=== PATIENT | female | born 1935 | race Caucasian/White ===

== ENCOUNTER → 2017-03-06 11:23 | Outpatient (CLI) | payer MEDICARE, SELFPAY ==
[2017-03-06 16:21] LABS: Anion Gap 10 (5-15); BUN 26 mg/dL (7-18); BUN/Creat Ratio 15.7 RATIO (10-20); Calcium,Total 8.9 mg/dL (8.5-10.1); Chloride 102 mmol/L (98-107); Creatinine, Serum 1.66 mg/dL (0.55-1.02); EST Glomerular Filtration Rate 32 mL/min (>60); Est Glom Filt Rate - Afr Amer 38 mL/min (>60); Glucose 201 mg/dL (70-110); Potassium 4.7 mmol/L (3.5-5.1); Sodium Level 137 mmol/L (136-145)
[2017-03-06 16:39] LABS: BNP,B-Type NATRIURETIC PEPTIDE 116.7 pg/mL (0-100)
== END ==
PROVIDERS: Family Provider Family Medicine; PCP Family Medicine; Visit Provider Family Medicine
DX: N18.3 Chronic kidney disease, stage 3 (moderate) (principal); I50.9 Heart failure, unspecified
CPT/HCPCS: 36415; 80048; 83880

== ENCOUNTER → 2017-04-09 13:01 | Outpatient (CLI) | payer MEDICARE, SELFPAY ==
[2017-04-09 14:02] LABS: AST(SGOT) 15 U/L (15-37); Alanine Aminotransfer ALT/SGPT 17 U/L (13-56); Anion Gap 11 (5-15); BUN 23 mg/dL (7-18); BUN/Creat Ratio 16.1 RATIO (10-20); Calcium,Total 8.7 mg/dL (8.5-10.1); Chloride 103 mmol/L (98-107); Creatinine, Serum 1.43 mg/dL (0.55-1.02); EST Glomerular Filtration Rate 38 mL/min (>60); Est Glom Filt Rate - Afr Amer 46 mL/min (>60); Glucose 206 mg/dL (74-106); Potassium 4.2 mmol/L (3.5-5.1); Sodium Level 139 mmol/L (136-145)
[2017-04-09 14:06] LABS: Hemoglobin A1c 8.2 % (4.2-6.3)
== END ==
PROVIDERS: Family Provider Family Medicine; PCP Family Medicine; Visit Provider Internal Medicine Endocrinology, Diabetes & Metabolism
DX: E11.42 Type 2 diabetes mellitus with diabetic polyneuropathy (principal)
CPT/HCPCS: 36415; 80048; 83036; 84450; 84460

== ENCOUNTER 2017-04-28 11:43 | Day surgery (SDC) | payer MEDICARE, SELFPAY ==
[2017-04-28 12:06] VITALS: BP 182/90; PULSE 68; RESP 16; TEMP 35.9; O2SAT 96; BMI 29.2
[2017-04-28 12:50] LABS: Bedside Glucose 150 mg/dL (70-110)
[2017-04-28] MEDS: Cefazolin 2 GM in 0.9% Normal Saline 100 ML IV (13:42)
--- NOTE | 2017-04-28 13:55 | RAD_ITS ---
STUDY: X-RAY - LUMBAR SPINE REASON FOR EXAM: Female, 81 years old. Low back pain. Placement of epidural stimulator. TECHNIQUE: 9 view(s) of the lumbar spine were obtained. 81 seconds fluoroscopy time. COMPARISON: None FINDINGS: These series of C-arm views show placement of an epidural stimulator in the lower thoracic spine. Correlate with procedure note. Electronically Signed: Carlo Nguyen MD at 9:18 EDT , Service support , RAD/Lumbar Spine 2 or 3 Views
[2017-04-28] MEDS: Bupivacaine 0.25% 30 ML Vial (14:15)
[2017-04-28] MEDS: Bacitracin 500 UNITS/GM PACKET (14:19)
[2017-04-28 14:33] VITALS: BP 168/85; BP 182/90; PULSE 77; RESP 16; TEMP 36.3; O2SAT 92
[2017-04-28 14:35] VITALS: BP 154/104; BP 182/90; PULSE 78; RESP 16; O2SAT 93
[2017-04-28 14:40] VITALS: BP 168/89; BP 182/90; PULSE 78; RESP 16; O2SAT 95
[2017-04-28 14:47] VITALS: BP 179/84; BP 182/90; PULSE 77; RESP 16; TEMP 36.2; O2SAT 93
--- NOTE | 2017-04-28 14:50 | PCM.OPRPT ---
Problem List (1) Disc degeneration, lumbosacral Status: Chronic (2) Lumbosacral radiculopathy Status: Chronic (3) Postlaminectomy syndrome of lumbar region Status: Chronic Report of Operation Date of Procedure: 04/28/17 Pre-Operative Diagnosis: Lumbosacral radiculopathy, lumbosacral degenerative disc disease, postlaminectomy syndrome of the lumbar spine Post-Operative Diagnosis: Lumbosacral radiculopathy, lumbosacral degenerative disc disease, postlaminectomy syndrome of the lumbar spine Surgery/Procedure Performed:: 1-spinal cord stimulator trial lead #1, 2-fluoroscopic guidance of spinal cord stimulator trial, 3-interrogation and programming of a spinal cord stimulator Description of Surgical Findings:: PROCEDURE: Spinal cord stimulator lead trial #1, fluoroscopic guidance for spinal cord stimulator, interrogation and programming of the spinal cord stimulator PREOPERATIVE DIAGNOSIS: Lumbosacral radiculopathy, lumbosacral degenerative disc disease, postlaminectomy syndrome of the lumbar spine POSTOPERATIVE DIAGNOSIS: Sacral radiculopathy, lumbosacral degenerative disc disease, postlaminectomy syndrome of the lumbar spine ANESTHESIA: MAC COMPLICATIONS: None BLOOD LOSS: Minimal Device implanted: Medtronic [id number], lot number [id number], neuro stimulator [id number] serial number [id number] PROCEDURE IN DETAIL: History and physical today was reviewed. Risks and benefits of the procedure were explained. The patient understood, agreed to our procedure, and informed consent was obtained. IV inserted per routine protocol. The patient was taken to the operating room, placed in a prone position with a pillow positioned underneath the abdomen. 2 gm IV Ancef delivered to the patient prior to incision per anesthesia team over 30 minutes, the back area was prepped and draped in a sterile fashion using iodine ?3 as well as Ioban sheet under direct visualization with fluoroscopic guidance on a true AP view the L2-3 vertebral bodies were visualized the skin and subcutaneous tissue were anesthetized with approximately 10 cc of a mixture of 1% lidocaine and 0.25% Marcaine using a 25-gauge regular needle followed by a 25-gauge 3-1/2 inch spinal needle to the interlaminar space at L2-3, the skin and subcutaneous tissue were injected with a 11-gauge blade using the Medtronic 14-gauge 3-1/2 inch Touhy needle provided by [employer] kit the needle passed through the skin and subcutaneous tissue and directed towards the interlaminar space at L2-3 under direct visualization with fluoroscopic guidance on AP as well as lateral view the needle was then advanced to the interlaminar space with [id number] technique to air once loss of resistance was encountered the stylette of the needle was then removed and after repeated confirmation on AP as well as lateral view spinal cord stimulator lead was then advanced under direct visualization with fluoroscopic guidance life imaging to confirm posterior positioning of the spinal cord stimulator at the posterior epidural space the lead was then advanced under direct visualization fluoroscopy to the tip of T9 vertebral body, patient was then awakened for spinal cord stimulator testing once satisfactory positioning and satisfactory coverage of the spinal cord stimulator. The patient was achieved the stylette of the spinal cord stimulator was then removed under direct visualization fluoroscopy the Touhy needle was then removed and a bitewing anchor was then introduced above the lead and advanced to the skin and secured to the skin and subcutaneous tissue with a 3-0 nylon the skin and subcutaneous tissue hernias reanesthetized with approximately 10 cc of the same mixture as above, a final visualization with AP as well as lateral view to confirm unchanged positioning of the spinal cord stimulator lead the area was then dressed with bacitracin and Tegaderm as well as the wireless external stimulator was attached to the left of the patient flank, there were no sinus symptoms intrathecal or intravascular injection patient experienced no paresthesia the procedure was completed without any apparent difficulty or any complication and the patient appeared to tolerate well patient was then transferred to PACU in satisfactory condition further testing was performed by myself as well as the [employer] passenger service representative who was present during the procedure. ASSESSMENT AND PLAN: This is a 81-year-old female with lumbosacral radiculopathy, lumbosacral degenerative disc disease, postlaminectomy syndrome and lumbar spine status post final cord stimulator trial at the lumbar level with one lead patient will follow approximately 3-4 days for reevaluation, and was given to the patient for Keflex 500 mg 1 p.o. every 8 hours for 7 days.
--- NOTE | 2017-04-28 15:03 | OP.PCM_ITS ---
Problem List (1) Disc degeneration, lumbosacral Status: Chronic (2) Lumbosacral radiculopathy Status: Chronic (3) Postlaminectomy syndrome of lumbar region Status: Chronic Report of Operation Date of Procedure: 04/28/17 Pre-Operative Diagnosis: Lumbosacral radiculopathy, lumbosacral degenerative disc disease, postlaminectomy syndrome of the lumbar spine Post-Operative Diagnosis: Lumbosacral radiculopathy, lumbosacral degenerative disc disease, postlaminectomy syndrome of the lumbar spine Surgery/Procedure Performed:: 1-spinal cord stimulator trial lead #1, 2- fluoroscopic guidance of spinal cord stimulator trial, 3-interrogation and programming of a spinal cord stimulator Description of Surgical Findings:: PROCEDURE: Spinal cord stimulator lead trial #1, fluoroscopic guidance for spinal cord stimulator, interrogation and programming of the spinal cord stimulator PREOPERATIVE DIAGNOSIS: Lumbosacral radiculopathy, lumbosacral degenerative disc disease, postlaminectomy syndrome of the lumbar spine POSTOPERATIVE DIAGNOSIS: Sacral radiculopathy, lumbosacral degenerative disc disease, postlaminectomy syndrome of the lumbar spine ANESTHESIA: MAC COMPLICATIONS: None BLOOD LOSS: Minimal Device implanted: Medtronic [id number], lot number [id number], neuro stimulator [id number] serial number [id number] PROCEDURE IN DETAIL: History and physical today was reviewed. Risks and benefits of the procedure were explained. The patient understood, agreed to our procedure, and informed consent was obtained. IV inserted per routine protocol. The patient was taken to the operating room, placed in a prone position with a pillow positioned underneath the abdomen. 2 gm IV Ancef delivered to the patient prior to incision per anesthesia team over 30 minutes, the back area was prepped and draped in a sterile fashion using iodine ?3 as well as Ioban sheet under direct visualization with fluoroscopic guidance on a true AP view the L2-3 vertebral bodies were visualized the skin and subcutaneous tissue were anesthetized with approximately 10 cc of a mixture of 1% lidocaine and 0.25% Marcaine using a 25-gauge regular needle followed by a 25-gauge 3-1/2 inch spinal needle to the interlaminar space at L2-3, the skin and subcutaneous tissue were injected with a 11-gauge blade using the Medtronic 14-gauge 3-1/2 inch Touhy needle provided by [employer] kit the needle passed through the skin and subcutaneous tissue and directed towards the interlaminar space at L2-3 under direct visualization with fluoroscopic guidance on AP as well as lateral view the needle was then advanced to the interlaminar space with [id number] technique to air once loss of resistance was encountered the stylette of the needle was then removed and after repeated confirmation on AP as well as lateral view spinal cord stimulator lead was then advanced under direct visualization with fluoroscopic guidance life imaging to confirm posterior positioning of the spinal cord stimulator at the posterior epidural space the lead was then advanced under direct visualization fluoroscopy to the tip of T9 vertebral body, patient was then awakened for spinal cord stimulator testing once satisfactory positioning and satisfactory coverage of the spinal cord stimulator. The patient was achieved the stylette of the spinal cord stimulator was then removed under direct visualization fluoroscopy the Touhy needle was then removed and a bitewing anchor was then introduced above the lead and advanced to the skin and secured to the skin and subcutaneous tissue with a 3-0 nylon the skin and subcutaneous tissue hernias reanesthetized with approximately 10 cc of the same mixture as above, a final visualization with AP as well as lateral view to confirm unchanged positioning of the spinal cord stimulator lead the area was then dressed with bacitracin and Tegaderm as well as the wireless external stimulator was attached to the left of the patient flank, there were no sinus symptoms intrathecal or intravascular injection patient experienced no paresthesia the procedure was completed without any apparent difficulty or any complication and the patient appeared to tolerate well patient was then transferred to PACU in satisfactory condition further testing was performed by myself as well as the [employer] inbound customer service representative who was present during the procedure. ASSESSMENT AND PLAN: This is a 81-year-old female with lumbosacral radiculopathy, lumbosacral degenerative disc disease, postlaminectomy syndrome and lumbar spine status post final cord stimulator trial at the lumbar level with one lead patient will follow approximately 3-4 days for reevaluation, and was given to the patient for Keflex 500 mg 1 p.o. every 8 hours for 7 days.
[2017-04-28 15:34] VITALS: BP 182/90
== END 2017-04-28 15:58 | disposition home or self-care (01) ==
LOC: SDC 11:43 → AC 11:45
PROVIDERS: Family Provider Family Medicine; PCP Family Medicine; Visit Provider Anesthesiology Pain Medicine
PROC: (CPT 63650; principal; 2017-04-28 13:20)
DX: M51.37 Other intervertebral disc degeneration, lumbosacral region (principal); M96.1 Postlaminectomy syndrome, not elsewhere classified; M54.17 Radiculopathy, lumbosacral region; I10 Essential (primary) hypertension; E11.9 Type 2 diabetes mellitus without complications; I25.10 Atherosclerotic heart disease of native coronary artery without angina pectoris; G47.30 Sleep apnea, unspecified; K21.9 Gastro-esophageal reflux disease without esophagitis; E78.00 Pure hypercholesterolemia, unspecified; Z85.528 Personal history of other malignant neoplasm of kidney
CPT/HCPCS: 00300; 63685; 95971; 72100; 76000; 82962; J7120

== ENCOUNTER 2017-05-08 17:50 | Observation (INO) | payer MEDICARE, SELFPAY ==
[2017-05-08 17:51] VITALS: BP 177/88; PULSE 78; RESP 16; TEMP 36.8; O2SAT 92; BMI 28.0
--- NOTE | 2017-05-08 18:18 | EKG12_ITS ---
Test Reason : BACK PAIN/HTN Blood Pressure : / mmHG Vent. Rate : 077 BPM Atrial Rate : 077 BPM P-R Int : 170 ms QRS Dur : 076 ms QT Int : 400 ms P-R-T Axes : 031 008 -16 degrees QTc Int : 452 ms Normal sinus rhythm Nonspecific ST abnormality Abnormal ECG Confirmed by LAURA BENITEZ, CARRIE ([id number]), jewel stripper WILY TIRADO ([id number]) on 05/12/2017 1:25:10 PM Referred By: ELVIA/MANDY Confirmed By:CARRIE SANCHEZ MD
--- NOTE | 2017-05-08 18:19 | RAD_ITS ---
STUDY: X-RAY CHEST REASON FOR EXAM: Female, 81 years old. Dyspnea. TECHNIQUE: Single AP portable view of the chest. COMPARISON: Chest, April 22, 2016. FINDINGS: Telemetry wires overlie the chest. There is a decreased inspiratory effort when compared to prior study. There is persistent elevation of the left hemidiaphragm. There is no new infiltrate or mass within the lungs. Minimal atelectatic changes are seen at the left lung base. Sternal cerclage wires are present from a prior sternotomy. The heart remains normal in size. Normal mediastinum and eddie. Normal visualized pulmonary arteries. There is atherosclerotic tortuosity of the aortic arch and descending thoracic aorta. The thoracic spine is obscured by the mediastinum. Normal visualized ribs, clavicles, and shoulders. There is no demonstrated abnormality of the visualized soft tissue structures of the upper abdomen. RAD/Chest 1 View (Portable) IMPRESSION: Decreased inspiratory effort with left basilar atelectasis. There is no other significant interval change. Electronically Signed: Floyd Foster DO at 18:55 EDT Tel [phone], Service support ,
[2017-05-08 19:02] LABS: Absolute Lymphocyte Count 2.97 X10^3/ul (0.83-4.51); Absolute Neutrophil Count 9.5 X10^3/uL (2.0-7.7); Basophil# 0.03 X10^3/uL; Basophil% 0.2 % (0-1); Eosinophil# 0.09 X10^3/uL; Eosinophils% 0.7 % (0-5); Hematocrit 36.7 % (37-47); Hemoglobin 12.3 g/dl (12.0-15.0); Lymphocyte # 2.97 X10^3/ul (4.0); Lymphocyte % 21.6 % (19-41); Mean Corp Hgb Conc 33.5 g/gl (32-36); Mean Corpuscular Hgb 30.8 pg (27.0-32.0); Mean Corpuscular Volume 91.8 fL (81-99); Mean Platelet Vol. 12.1 fl (6.2-12.0); Monocyte# 1.11 X10^3/uL; Monocyte% 8.1 % (0-10); Neutrophil # 9.51 X10^3/uL (2.7-7.7); Neutrophil % 69.1 % (47-70); Platelet Count 212 K/mm3 (150-450); RBC Distribution Width CV 13.1 % (11.6-14.6); RBC Distribution Width SD 42.6 fl (35.1-43.9); White Blood Count 13.8 K/mm3 (4.4-11.0)
[2017-05-08] MEDS: 0.9% Normal Saline 1,000 ML 1000 ML IV (19:05)
[2017-05-08 19:06] LABS: POSITIVE COUNT NO; POSITIVE DIFFERENTIAL NO; POSITIVE MORPHOLOGY NO
[2017-05-08 19:29] LABS: Anion Gap 10 (5-15); BUN 20 mg/dL (7-18); BUN/Creat Ratio 15.4 RATIO (10-20); Calcium,Total 9.2 mg/dL (8.5-10.1); Chloride 107 mmol/L (98-107); EST Glomerular Filtration Rate 42 mL/min (>60); Est Glom Filt Rate - Afr Amer 51 mL/min (>60); Estimated Creatinine Clearance 29.03 ml/min; Glucose 193 mg/dL (74-106); Lactic Acid 2.2 mmol/L (0.4-2.0); Potassium 4.4 mmol/L (3.5-5.1); Sodium Level 140 mmol/L (136-145)
--- NOTE | 2017-05-08 19:49 | ED.RN ---
lab called with critical results. Lactic acid 2.2. Dr. ramos made aware. no new orders at this time
[2017-05-08 19:54] VITALS: BP 172/89; PULSE 79; RESP 16; O2SAT 95
--- NOTE | 2017-05-08 20:02 | ED.DCSUM_ITS ---
- ER Visit Summary Date of Service: 05/08/17 Chief Complaint: [Generalized weakness and not feeling well] History of Present Illness: The patient is a 81 F [presents to the emergency department with a complaint of not feeling well. Initially she really could not tell me how she was not feeling well. Patient states that she started feeling poorly this morning. Patient denies any fever. She denies any chest pain or shortness of breath. Patient does admit that she has had diarrhea throughout the day today greater than 10 times. Patient states his stools been watery and nonbloody. Patient denies any vomiting. She denied any abdominal pain. Patient denies urinary symptoms. Patient tells me she has been on an antibiotic for a couple weeks now because she had a pain pump inserted by Dr. Vergara.] Physical Examination: [HEENT-PERRLA, EOMI. Cranial nerves II through XII grossly intact. TMs clear. Mucous membranes moist. No adenopathy. Cardiovascular-regular rate and rhythm without murmur or ectopy Lungs-clear to auscultation, chest wall stable without crepitus or subcu emphysema Abdomen-normoactive bowel sounds, soft. Patient has some mild diffuse tenderness on palpation. There is no rebound, rigidity, or peritoneal signs. Extremities-intact ?4, normal range of motion, normal pulses, atraumatic] Test Results: [CBC with differential obtained showed a white blood cell count of 13.8, hemoglobin 12, hematocrit 36.7, platelets 212. Chemistries unremarkable. BUN 20 and creatinine 1.3. Troponin was less than 0.02. Lactate was elevated 2.2. EKG shows sinus rhythm with a ventricular rate of 77 bpm. Urinalysis is pending. Patient also had stool sent for C. difficile and enteric pathogens.] Emergency Department Course and Treatment: [Patient received a liter normal same fluid bolus] Treatment Plan: [Admit for hydration and further evaluation of her symptoms. Patient initially unable to give stool sample in the emergency department however I am concerned about the possibility for C. difficile given her recent antibiotic usage.] Disposition: [Admit] Impression: [Generalized weakness Diarrhea Dehydration] This note was generated with [employer] software. It may contain incorrect words, spelling, and punctuation that were not noted in review of the chart prior to signing ED Disposition - Plan for ED Patient: Chief Complaint: Weakness Referrals: Fernando Kong MD [Primary Care Provider] -
--- NOTE | 2017-05-08 21:04 | CT_ITS ---
STUDY: CT ABDOMEN AND PELVIS WITHOUT CONTRAST REASON FOR EXAM: Female, 81 years old. WEAKNESS, DIARRHEA, ELEVATED WBC, LOW ABDOMEN AND BACK PAIN HX:HTN, HLD, GERD, KIDNEY CANCER. SURGERY: APPENDECTOMY, CHOLECYSTECTOMY, L SPINE, HERNIA REPAIR, CABG, HYSTERECTOMY, RT PARTIAL NEPHRECTOMY RADIATION DOSAGE (If Supplied By Facility): CTDIvol = ( 9.60 ) mGy, DLP = ( 501.41 ) mGycm TECHNIQUE: Transaxial images were obtained from the dome of the diaphragm to the symphysis pubis with oral contrast, and without intravenous contrast. Sagittal and coronal images were reconstructed. COMPARISON: 06.06.14 FINDINGS: There are atherosclerotic calcifications of visualized coronary arteries. Degenerative findings of the hips. Spinal fixation hardware is noted. The visualized portions of the heart are within normal limits. Multiple median sternotomy wires are noted consistent for cardiac surgery. Anterior abdominal wall hernia mesh in place. Normal liver. There are surgical clips in the gallbladder fossa consistent with a prior cholecystectomy. Normal spleen. There is diffuse atrophy of the pancreas. Stable nodularity in the mid body. This may represent residual pancreatic tissue. Normal bilateral adrenal glands. Stable partially calcified mass of the anterior right kidney. Stable hypodensity of the mid left kidney. Normal visualized stomach. Normal small intestine. Normal colon. There is non-visualization of the appendix. Rectosigmoid anastomosis. There are calcifications of the abdominal aorta and vascular structures. This is consistent for atherosclerotic disease. There is no abdominal aortic aneurysm. Normal inferior vena cava. Subcentimeter mesenteric lymph nodes. Normal urinary bladder. There is absence of the uterus consistent with a prior hysterectomy. Normal abdominal wall. There are degenerative changes of the osseous structures. CT/Abdomen/Pel W ORAL Cont Only IMPRESSION: There is diffuse atrophy of the pancreas. Stable nodularity in the mid body. This may represent residual pancreatic tissue. Stable partially calcified mass of the anterior right kidney. Stable hypodensity of the mid left kidney. This is consistent for cysts. Hysterectomy. Other findings as above. Electronically Signed: Jl Kimble MD at 23:12 EDT , Service support ,
[2017-05-08 21:17] VITALS: BP 172/89; PULSE 82; RESP 16; O2SAT 94
[2017-05-08 21:24] VITALS: BP 172/89; PULSE 82; RESP 16; O2SAT 94
--- NOTE | 2017-05-08 21:27 | PCM.HP.STD ---
Problem List (1) Diarrhea Status: Acute (2) Abdominal pain Status: Acute Qualifiers: Abdominal location: left lower quadrant Qualified Code(s): R10.32 - Left lower quadrant pain (3) Lactic acidosis Status: Acute (4) Angina pectoris Status: Chronic (5) CAD (coronary artery disease) Status: Chronic Qualifiers: Comment: CABG X 3, SOTO to LAD, SVG to 1st diagonal & SVG to obtuse marginal @ summa 04/08/16 (6) Diabetes mellitus, type 2 Status: Chronic Qualifiers: (7) Disc degeneration, lumbosacral Status: Chronic (8) Fibromyalgia Status: Chronic (9) GERD Status: Chronic (10) History of stroke Status: Chronic (11) Hyperlipidemia Status: Chronic Qualifiers: (12) Hypertension Status: Chronic Qualifiers: (13) Hypothyroidism Status: Chronic (14) Lumbosacral radiculopathy Status: Chronic (15) Obstructive sleep apnea Status: Chronic (16) 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 Status: Chronic (17) Postlaminectomy syndrome of lumbar region Status: Chronic (18) Renal cancer Status: Chronic (19) S/P coronary artery bypass graft x 3 Status: Chronic Comment: CABG X 3, SOTO to LAD, SVG to 1st diagonal & SVG to obtuse marginal @ summa 04/08/16 (20) TIA (transient ischemic attack) Status: Chronic (21) Chronic renal failure, stage 3 (moderate) Status: Chronic (22) Dehydration Status: Acute History of Present Illness Date of Admission: 05/08/17 Chief Complaint: diarrhea, anxiety The patient is a 81 year old F past medical history of hypertension, chronic renal failure stage III, coronary artery disease, chronic pain syndrome, history of CVA, uncontrolled diabetes mellitus type 2, fibromyalgia, hyperlipidemia, history of renal cell carcinoma both thyroidism who presented to the emergency department at [facility] on 05/08/2017 complaining of 10-12 episodes of loose watery stool that day. She denied nausea or vomiting. She has recently been on an antibiotic from Dr. Vergara following a procedure to determine if she would benefit from an implantable nerve stimulator. She does not recall the name of the antibiotic and neither does her . She has never had C. Diff. She has been having chills but has not taken her temperature. She denies dysuria. Vital signs at presentation to the emergency room were temperature 98.2, pulse rate 78, blood pressure 177/88, respiratory rate 16 and she was 92% saturated on room air. Her did relate to me that she did not take her antihypertensive at least 3 days last week. She has been known to be noncompliant with medication in the past as well. Significant lab in the emergency room included an elevated white blood cell count at 13.8 with hemoglobin 12.3 and platelets 212,000. There was a normal white blood cell differential. Electrolytes were within normal limits and the BUN was 20 with a creatinine of 1.3 and 1.3 is within her baseline. UA had 0 RBCs and 0-5 WBCs. There were rare bacteria seen. On physical examination she had pain and guarding with palpation of the left lower quadrant and a CT scan of the abdomen and pelvis was obtained and showed diffuse atrophy of the pancreas with nodularity in the body which is stable, stable partially calcified mass of the anterior right kidney, stable hypodensity of the mid left kidney and a normal colon and small intestine. She has not had a BM since arrival to the ER. She will be admitted for observation for reported intractable diarrhea in a pt on antibiotics. Past Medical History Past Medical History (Chronic Problems): Chronic Problems (Last Updated 04/22/17 @ 11:34 by JUAN FRANCISCO Monroe) Chronic renal failure, stage 3 (moderate) (Chronic) Hyperlipidemia (Chronic) Other long-term (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 (Chronic) TIA (transient ischemic attack) (Chronic) Angina pectoris (Chronic) Obstructive sleep apnea (Chronic) 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) CABG X 3, SOTO to LAD, SVG to 1st diagonal & SVG to obtuse marginal @ summa 04/08/16 Postlaminectomy syndrome of lumbar region (Chronic) Disc degeneration, lumbosacral (Chronic) Lumbosacral radiculopathy (Chronic) Diabetes mellitus, type 2 (Chronic) Hypertension (Chronic) History of stroke (Chronic) Fibromyalgia (Chronic) GERD (Chronic) Hypothyroidism (Chronic) Renal cancer (Chronic) CAD (coronary artery disease) (Chronic) CABG X 3, SOTO to LAD, SVG to 1st diagonal & SVG to obtuse marginal @ summa 04/08/16 Allergies latex Allergy (Verified 05/08/17 17:56) Rash adhesive tape Adverse Reaction (Verified 05/08/17 17:56) Rash Home Medications: Ambulatory Orders Medication Instructions Recorded Insulin Glargine,Hum.rec.anlog 45 unit SC QHS 04/21/16 [Lantus] Morphine Sulfate [Morphine Sulfate 30 mg PO BID 04/21/16 ER] Oxybutynin [Ditropan] 10 mg PO DAILY 04/21/16 Aspirin E.C. [Ecotrin] 81 mg PO DAILY@0800 #30 tab 04/24/16 Atorvastatin Calcium [Lipitor] 40 mg PO DAILY 05/09/16 Gabapentin [Neurontin] 300 mg PO BID 05/09/16 Lansoprazole [Prevacid] 30 mg PO DAILY 05/09/16 Insulin Aspart [Novolog Flexpen 0 units SC DAILY 11/11/16 ([facility])] cholecalciferol (vitamin D3) 1,000 1,000 unit PO QDAY tab 04/21/17 unit tablet metformin 500 mg tablet 1,000 mg PO BID 04/21/17 hydralazine 50 mg tablet 50 mg PO DAILY 90 Days #270 04/22/17 lisinopril 20 mg tablet 20 mg PO DAILY 90 Days #90 04/22/17 metoprolol tartrate 25 mg tablet 25 mg PO BID tab 04/22/17 isosorbide mononitrate ER 30 mg 30 mg PO QDAY #30 tab 04/23/17 tablet,extended release 24 hr Levothyroxine [Synthroid] 88 mcg PO DAILY 04/25/17 Surgical History: appendectomy, cholecystectomy, herniorrhaphy, hysterectomy, total knee arthroplasty, tonsillectomy, - - cryotherapy for kidney tumor Psychiatric History: No 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 DIRECTOR MOBILE History: No pertinent DIRECTOR MOBILE history Lives: Spouse/ Significant Other Smoking Status: Never smoker Tobacco Use: Non-smoker Alcohol: None Drugs: None - *Family History Maternal History Items: Diabetes, Heart Disease - age 95 Paternal History Items: Heart Disease - age 69 Review of Systems Constitutional: Reports: Chills, Weakness. Denies: Fever HEENT: Denies: Difficulty Swallowing, Head Aches, Sinus Congestion, Sinus Drainage Cardiovascular: Denies: Chest Pain, Palpitations Respiratory: Denies: Cough, Shortness of breath at rest, Sputum production Gastrointestinal: Reports: Abdominal Pain - LLQ, Diarrhea. Denies: Hematochezia, Nausea, Melena, Vomiting Genitourinary: Denies: Dysuria Musculoskeletal: Reports: - - she has total body pain Skin: Denies: Jaundice, Rash, Wounds Neurological: Denies: Change in Speech, Slurred speech, Confusion, Focal weakness, Numbness, Seizures Psychiatric: Denies: Anxiety, Depression, Homicidal Ideations, Suicidal Ideations Endocrine: Denies: Change in Body Habitus Hematologic/ Lymphatic: Denies: Hx of blood clot VTE Information - Inpt Only VTE Present on Admission: No VTE Mechan Device Prophylaxis: SCD's VTE Pharm Prophylaxis ordered?: Yes Patient Problems: Active and Suspected Problems (Last Updated 04/22/17 @ 11:34 by JUAN FRANCISCO Monroe) Diarrhea (Acute) Abdominal pain (Acute) Lactic acidosis (Acute) Dehydration (Acute) - Physical Exam General: Alert, Oriented x3, Cooperative HEENT: Atraumatic, PERRLA, EOMI, Normocephalic Oral: No Gingival or Mucosal Lesions/ Ulcerations, Dry Mucosa Neck: Supple, No JVD, Negative Carotid Bruits, No Nodes, No Nuchal Rigidity, Trachea Midline Lungs: Clear to auscultation, Diminished Cardiovascular: Regular rate, Regular Rhythm, Normal S1, Normal S2, No murmurs, No Ectopic Activity, No rub noted, No Gallop Abdomen: Soft, No Hepato-splenomegaly, Hypoactive Bowel Sounds, Tender - in the LLQ qith palpation and she does have guarding but no rigidity Extremities: No clubbing, No cyanosis, No edema, No Calf Tenderness, Peripheral Pulses Normal Skin: No rashes, No breakdown Musculoskeletal: Arthritic Changes Neurological: Cranial nerves II-XII grossly intact, Neuro grossly intact, - - She has restless leg Psych/Mental Status: Normal Affect, Appropriate Vital Signs Temp Pulse Resp BP Pulse Ox 98.2 F 82 16 172/89 H 94 05/08/17 17:51 05/08/17 21:24 05/08/17 21:24 05/08/17 21:24 05/08/17 21:24 Oxygen Delivery Method Room Air Weight: 158 lb 1.143 oz Body Mass Index (BMI) 28.0 Finger Stick Blood Glucose 100 Laboratory Tests Past 24 Hrs 05/08/17 05/08/17 05/08/17 18:30 18:30 18:30 WBC 13.8 H RBC 4.00 L Hgb 12.3 Hct 36.7 L MCV 91.8 MCH 30.8 MCHC 33.5 RDW 13.1 RDW Differential 42.6 Plt Count 212 MPV 12.1 H Immature Gran % (Auto) 0.300 Neut % (Auto) 69.1 Lymph % (Auto) 21.6 [place] % (Auto) 8.1 Eos % (Auto) 0.7 Baso % (Auto) 0.2 Absolute Neuts (auto) 9.5 H Absolute Lymphs (auto) 2.97 Total Counted Not Reportable Sodium 140 Potassium 4.4 Chloride 107 Carbon Dioxide 23.0 Anion Gap 10 BUN 20 H Creatinine 1.30 H Estim Creat Clear Calc 29.03 Est GFR (MDRD) Af Amer 51 L Est GFR (MDRD) Non-Af 42 L BUN/Creatinine Ratio 15.4 Glucose 193 H Lactic Acid 2.2 H Calcium 9.2 Troponin I < 0.02 Assessment/Plan Active and Suspected Problems (Last Updated 04/22/17 @ 11:34 by JUAN FRANCISCO Monroe) Diarrhea (Acute) Abdominal pain (Acute) Lactic acidosis (Acute) Dehydration (Acute) Impressions 1. reported intractable diarrhea with 10-12 BM's on 05/08 however, she has had no BM's in the 9 hours she has been in the hospital ( from 6 PM to 3 AM.) C DIFF and an enteric pathogen panel have been ordered but, she has had no BM's. IV fluids have been ordered since her MM are dry. 2. fibromyalgia 3. hx of renal cell CA 4. CAD 5. hx of CVA/HTN/HLD/GERD - complicate care, management, prognosis UA is negative. CT of the abdomen and pelvis is negative for signs of colitis or enteritis. She has no BM's since presentation to the ER. Can likely be discharged home on 05/09 following hydration. AM labs have been ordered.
--- NOTE | 2017-05-08 21:33 | HP.PCM_ITS ---
Problem List (1) Diarrhea Status: Acute (2) Abdominal pain Status: Acute Qualifiers: Abdominal location: left lower quadrant Qualified Code(s): R10.32 - Left lower quadrant pain (3) Lactic acidosis Status: Acute (4) Angina pectoris Status: Chronic (5) CAD (coronary artery disease) Status: Chronic Qualifiers: Comment: CABG X 3, SOTO to LAD, SVG to 1st diagonal & SVG to obtuse marginal @ summa 04/08/16 (6) Diabetes mellitus, type 2 Status: Chronic Qualifiers: (7) Disc degeneration, lumbosacral Status: Chronic (8) Fibromyalgia Status: Chronic (9) GERD Status: Chronic (10) History of stroke Status: Chronic (11) Hyperlipidemia Status: Chronic Qualifiers: (12) Hypertension Status: Chronic Qualifiers: (13) Hypothyroidism Status: Chronic (14) Lumbosacral radiculopathy Status: Chronic (15) Obstructive sleep apnea Status: Chronic (16) 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: Chronic (17) Postlaminectomy syndrome of lumbar region Status: Chronic (18) Renal cancer Status: Chronic (19) S/P coronary artery bypass graft x 3 Status: Chronic Comment: CABG X 3, SOTO to LAD, SVG to 1st diagonal & SVG to obtuse marginal @ summa 04/08/16 (20) TIA (transient ischemic attack) Status: Chronic (21) Chronic renal failure, stage 3 (moderate) Status: Chronic (22) Dehydration Status: Acute History of Present Illness Date of Admission: 05/08/17 Chief Complaint: diarrhea, anxiety The patient is a 81 year old F past medical history of hypertension, chronic renal failure stage III, coronary artery disease, chronic pain syndrome, history of CVA, uncontrolled diabetes mellitus type 2, fibromyalgia, hyperlipidemia, history of renal cell carcinoma both thyroidism who presented to the emergency department at [facility] on 05/08/2017 complaining of 10-12 episodes of loose watery stool that day. She denied nausea or vomiting. She has recently been on an antibiotic from Dr. Vergara following a procedure to determine if she would benefit from an implantable nerve stimulator. She does not recall the name of the antibiotic and neither does her . She has never had C. Diff. She has been having chills but has not taken her temperature. She denies dysuria. Vital signs at presentation to the emergency room were temperature 98.2, pulse rate 78, blood pressure 177/88, respiratory rate 16 and she was 92% saturated on room air. Her did relate to me that she did not take her antihypertensive at least 3 days last week. She has been known to be noncompliant with medication in the past as well. Significant lab in the emergency room included an elevated white blood cell count at 13.8 with hemoglobin 12.3 and platelets 212, 000. There was a normal white blood cell differential. Electrolytes were within normal limits and the BUN was 20 with a creatinine of 1.3 and 1.3 is within her baseline. UA had 0 RBCs and 0-5 WBCs. There were rare bacteria seen. On physical examination she had pain and guarding with palpation of the left lower quadrant and a CT scan of the abdomen and pelvis was obtained and showed diffuse atrophy of the pancreas with nodularity in the body which is stable, stable partially calcified mass of the anterior right kidney, stable hypodensity of the mid left kidney and a normal colon and small intestine. She has not had a BM since arrival to the ER. She will be admitted for observation for reported intractable diarrhea in a pt on antibiotics. Past Medical History Past Medical History (Chronic Problems): Chronic Problems (Last Updated 04/22/17 @ 11:34 by JUAN FRANCISCO Monroe) Chronic renal failure, stage 3 (moderate) (Chronic) Hyperlipidemia (Chronic) Other terminal superintendent (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 (Chronic) TIA (transient ischemic attack) (Chronic) Angina pectoris (Chronic) Obstructive sleep apnea (Chronic) 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) CABG X 3, SOTO to LAD, SVG to 1st diagonal & SVG to obtuse marginal @ summa Postlaminectomy syndrome of lumbar region (Chronic) Disc degeneration, lumbosacral (Chronic) Lumbosacral radiculopathy (Chronic) Diabetes mellitus, type 2 (Chronic) Hypertension (Chronic) History of stroke (Chronic) Fibromyalgia (Chronic) GERD (Chronic) Hypothyroidism (Chronic) Renal cancer (Chronic) CAD (coronary artery disease) (Chronic) CABG X 3, SOTO to LAD, SVG to 1st diagonal & SVG to obtuse marginal @ summa Allergies latex Allergy (Verified 05/08/17 17:56) Rash adhesive tape Adverse Reaction (Verified 05/08/17 17:56) Rash Home Medications: Ambulatory Orders Medication Instructions Recorded Insulin Glargine,Hum.rec.anlog 45 unit SC QHS 04/21/16 [Lantus] Morphine Sulfate [Morphine Sulfate 30 mg PO BID 04/21/16 ER] Oxybutynin [Ditropan] 10 mg PO DAILY 04/21/16 Aspirin E.C. [Ecotrin] 81 mg PO DAILY@0800 #30 tab 04/24/16 Atorvastatin Calcium [Lipitor] 40 mg PO DAILY 05/09/16 Gabapentin [Neurontin] 300 mg PO BID 05/09/16 Lansoprazole [Prevacid] 30 mg PO DAILY 05/09/16 Insulin Aspart [Novolog Flexpen 0 units SC DAILY 11/11/16 ([facility])] cholecalciferol (vitamin D3) 1,000 1,000 unit PO QDAY tab 04/21/17 unit tablet metformin 500 mg tablet 1,000 mg PO BID 04/21/17 hydralazine 50 mg tablet 50 mg PO DAILY 90 Days #270 04/22/17 lisinopril 20 mg tablet 20 mg PO DAILY 90 Days #90 04/22/17 metoprolol tartrate 25 mg tablet 25 mg PO BID tab 04/22/17 isosorbide mononitrate ER 30 mg 30 mg PO QDAY #30 tab 04/23/17 tablet,extended release 24 hr Levothyroxine [Synthroid] 88 mcg PO DAILY 04/25/17 Surgical History: appendectomy, cholecystectomy, herniorrhaphy, hysterectomy, total knee arthroplasty, tonsillectomy, - - cryotherapy for kidney tumor Psychiatric History: No 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 Denies: Fever HEENT: Denies: Difficulty Swallowing, Head Aches, Sinus Congestion, Sinus Drainage Cardiovascular: Denies: Chest Pain, Palpitations Respiratory: Denies: Cough, Shortness of breath at rest, Sputum production Gastrointestinal: Reports: Abdominal Pain - LLQ, Diarrhea. Denies: Hematochezia , Nausea, Melena, Vomiting Genitourinary: Denies: Dysuria Musculoskeletal: Reports: - - she has total body pain Skin: Denies: Jaundice, Rash, Wounds Neurological: Denies: Change in Speech, Slurred speech, Confusion, Focal weakness, Numbness, Seizures Psychiatric: Denies: Anxiety, Depression, Homicidal Ideations, Suicidal Ideations Endocrine: Denies: Change in Body Habitus Hematologic/ Lymphatic: Denies: Hx of blood clot VTE Information - Inpt Only VTE Present on Admission: No VTE Mechan Device Prophylaxis: SCD's VTE Pharm Prophylaxis ordered?: Yes Patient Problems: Active and Suspected Problems (Last Updated 04/22/17 @ 11:34 by JUAN FRANCISCO Monroe) Diarrhea (Acute) Abdominal pain (Acute) Lactic acidosis (Acute) Dehydration (Acute) - Physical Exam General: Alert, Oriented x3, Cooperative HEENT: Atraumatic, PERRLA, EOMI, Normocephalic Oral: No Gingival or Mucosal Lesions/ Ulcerations, Dry Mucosa Neck: Supple, No JVD, Negative Carotid Bruits, No Nodes, No Nuchal Rigidity, Trachea Midline Lungs: Clear to auscultation, Diminished Cardiovascular: Regular rate, Regular Rhythm, Normal S1, Normal S2, No murmurs, No Ectopic Activity, No rub noted, No Gallop Abdomen: Soft, No Hepato-splenomegaly, Hypoactive Bowel Sounds, Tender - in the LLQ qith palpation and she does have guarding but no rigidity Extremities: No clubbing, No cyanosis, No edema, No Calf Tenderness, Peripheral Pulses Normal Skin: No rashes, No breakdown Musculoskeletal: Arthritic Changes Neurological: Cranial nerves II-XII grossly intact, Neuro grossly intact, - - She has restless leg Psych/Mental Status: Normal Affect, Appropriate Vital Signs Temp Pulse Resp BP Pulse Ox 98.2 F 82 16 172/89 H 94 05/08/17 17:51 05/08/17 21:24 05/08/17 21:24 05/08/17 21:24 05/08/17 21:24 Oxygen Delivery Method Room Air Weight: 158 lb 1.143 oz Body Mass Index (BMI) 28.0 Finger Stick Blood Glucose 100 Laboratory Tests Past 24 Hrs 05/08/17 05/08/17 05/08/17 18:30 18:30 18:30 WBC 13.8 H RBC 4.00 L Hgb 12.3 Hct 36.7 L MCV 91.8 MCH 30.8 MCHC 33.5 RDW 13.1 RDW Differential 42.6 Plt Count 212 MPV 12.1 H Immature Gran % (Auto) 0.300 Neut % (Auto) 69.1 Lymph % (Auto) 21.6 [place] % (Auto) 8.1 Eos % (Auto) 0.7 Baso % (Auto) 0.2 Absolute Neuts (auto) 9.5 H Absolute Lymphs (auto) 2.97 Total Counted Not Reportable Sodium 140 Potassium 4.4 Chloride 107 Carbon Dioxide 23.0 Anion Gap 10 BUN 20 H Creatinine 1.30 H Estim Creat Clear Calc 29.03 Est GFR (MDRD) Af Amer 51 L Est GFR (MDRD) Non-Af 42 L BUN/Creatinine Ratio 15.4 Glucose 193 H Lactic Acid 2.2 H Calcium 9.2 Troponin I < 0.02 Assessment/Plan Active and Suspected Problems (Last Updated 04/22/17 @ 11:34 by JUAN FRANCISCO Monroe) Diarrhea (Acute) Abdominal pain (Acute) Lactic acidosis (Acute) Dehydration (Acute) Impressions 1. reported intractable diarrhea with 10-12 BM's on 05/08 however, she has had no BM's in the 9 hours she has been in the hospital ( from 6 PM to 3 AM.) C DIFF and an enteric pathogen panel have been ordered but, she has had no BM' s. IV fluids have been ordered since her MM are dry. 2. fibromyalgia 3. hx of renal cell CA 4. CAD 5. hx of CVA/HTN/HLD/GERD - complicate care, management, prognosis UA is negative. CT of the abdomen and pelvis is negative for signs of colitis or enteritis. She has no BM's since presentation to the ER. Can likely be discharged home on 05/09 following hydration. AM labs have been ordered.
[2017-05-08 22:43] LABS: Reflex Lactate? Y
--- NOTE | 2017-05-08 22:43 | ED.RN ---
PT UNABLE TO GIVE STOOL SAMPLE, NO BOWEL MOVEMENT SINCE COMING TO ED. ATTEMPTED TO COLLECT URINE SAMPLE, PT MISSED CUP.
[2017-05-08] MEDS: MELATONIN 3 MG TABLET PO (22:49)
[2017-05-08 22:52] VITALS: BP 158/74; PULSE 74; RESP 18; O2SAT 96
[2017-05-08 23:20] VITALS: BMI 28.0; BMI 28.1
[2017-05-08 23:35] VITALS: O2SAT 96
[2017-05-08 23:49] LABS: Lactic Acid 1.9 mmol/L (0.4-2.0)
[2017-05-09] VITALS (8 sets, daily range): BP systolic 136–177; BP diastolic 69–94; PULSE 58–71; RESP 18; TEMP 36.4–36.7; O2SAT 93–994
[2017-05-09] MEDS: 0.45% Normal Saline 1,000 ML 100 ML IV (00:50)
[2017-05-09] MEDS: hydrALAZINE 50 MG Tablet PO ×2 (00:51→09:32)
[2017-05-09] MEDS: Famotidine 20 MG Tablet PO ×2 (00:52→09:31)
[2017-05-09] MEDS: Metoprolol Tartrate 25 MG Tablet PO ×2 (00:52→09:31)
[2017-05-09 01:31] LABS: Bedside Glucose 181 mg/dL (70-110)
[2017-05-09 01:36] LABS: Hemoglobin A1c 8.2 % (4.2-6.3)
[2017-05-09 01:40] LABS: AST(SGOT) 22 U/L (15-37); Alanine Aminotransfer ALT/SGPT 14 U/L (13-56); Albumin, Serum 3.8 g/dL (3.2-5.0); Alkaline Phosphatase 64 U/L (45-117); Bilirubin, Direct 0.07 mg/dL (0.00-0.30); Globulin 3.9 g/dL (2.2-4.2); Magnesium 1.4 mg/dL (1.6-2.6); Protein, Total 7.7 g/dL (6.4-8.2)
[2017-05-09 02:00] LABS: Phosphorus 2.9 mg/dL (2.5-4.9)
[2017-05-09 02:15] LABS: Mucous, Urine 0 SEEN /hpf (<or=2+); Red Blood Cells-Urine 0 SEEN /hpf (0-5); Squamous Epithelial Cells - UA 0 SEEN /hpf (5-10)
[2017-05-09] MEDS: MELATONIN 3 MG TABLET PO (02:18)
[2017-05-09] MEDS: 0.9% NaCl Peripheral Flush Adult/Peds IV (02:18)
[2017-05-09 02:20] LABS: Color, Urine Yellow (Yellow); Glucose, Dipstick Normal (Normal); Ketone-Dipstick Negative (Negative); Leukocyte Esterase-Dipstick 25 /ul (Negative); Nitrite-Dipstick Negative (Negative); Occult Blood-Urine Negative /ul (Negative); Protein-Dipstick 30 mg/dl (Negative); Urine Bilirubin Dipstick Negative (Negative); Urine Clarity Clear (Clear); Urine Urobilinogen Normal (Normal)
[2017-05-09 02:25] LABS: Bacteria RARE /hpf (None Seen); White Blood Cells 0-5 SEEN /hpf (0-5)
[2017-05-09] MEDS: Levothyroxine 88 MCG Tablet PO (05:49)
[2017-05-09 06:33] LABS: Absolute Lymphocyte Count 3.39 X10^3/ul (0.83-4.51); Absolute Neutrophil Count 6.9 X10^3/uL (2.0-7.7); Basophil# 0.03 X10^3/uL; Basophil% 0.3 % (0-1); Eosinophil# 0.13 X10^3/uL; Eosinophils% 1.1 % (0-5); Hematocrit 34.3 % (37-47); Hemoglobin 11.5 g/dl (12.0-15.0); Lymphocyte # 3.39 X10^3/ul (4.0); Lymphocyte % 29.5 % (19-41); Mean Corp Hgb Conc 33.5 g/gl (32-36); Mean Corpuscular Hgb 30.8 pg (27.0-32.0); Mean Platelet Vol. 11.7 fl (6.2-12.0); Monocyte# 1.06 X10^3/uL; Monocyte% 9.2 % (0-10); Neutrophil # 6.87 X10^3/uL (2.7-7.7); Neutrophil % 59.7 % (47-70); Platelet Count 197 K/mm3 (150-450); RBC Distribution Width CV 13.1 % (11.6-14.6); RBC Distribution Width SD 43.2 fl (35.1-43.9); Red Blood Count 3.73 M/mm3 (4.2-5.4); White Blood Count 11.5 K/mm3 (4.4-11.0)
[2017-05-09 06:35] LABS: POSITIVE COUNT NO; POSITIVE DIFFERENTIAL NO; POSITIVE MORPHOLOGY NO
[2017-05-09 06:46] LABS: BUN 18 mg/dL (7-18); Creatinine, Serum 1.22 mg/dL (0.55-1.02); Estimated Creatinine Clearance 30.93 ml/min; Glucose 155 mg/dL (74-106)
[2017-05-09 06:47] LABS: Anion Gap 10 (5-15); BUN/Creat Ratio 14.8 RATIO (10-20); Calcium,Total 8.7 mg/dL (8.5-10.1); Chloride 106 mmol/L (98-107); EST Glomerular Filtration Rate 45 mL/min (>60); Est Glom Filt Rate - Afr Amer 55 mL/min (>60); Potassium 3.5 mmol/L (3.5-5.1); Sodium Level 140 mmol/L (136-145)
[2017-05-09] MEDS: Gabapentin 300 MG Capsule PO ×2 (09:04→17:50)
[2017-05-09] MEDS: Aspirin E.C. 81 MG Tablet PO (09:04)
[2017-05-09] MEDS: Lisinopril 20 MG Tablet PO (09:31)
[2017-05-09] MEDS: Isosorbide Mononitrate 30 MG Tablet PO (09:32)
[2017-05-09] MEDS: Atorvastatin Calcium 40 MG Tablet PO (09:32)
[2017-05-09 11:16] LABS: Bedside Glucose 161 mg/dL (70-110)
[2017-05-09 11:26] LABS: Bedside Glucose 166 mg/dL (70-110)
--- NOTE | 2017-05-09 13:26 | CASEMGMT ---
RN ALBERTA Face to Face with patient for initial transition planning/care coordination assessment. RN CM introduced self and role at [facility]. Patient sitting in chair, alert and oriented. Patient willing to participate in assessment and is able to answer all questions appropriately. Care providers, pharmacy, and demographics verified. Patient wishes to discharge home, denies need for home health or DME at this time. Patient lives with in 1 story home. Patient states he has no further needs or concerns at this time. CM to follow for discharge planning needs that may arise. Disposition Plan: Patient to discharge home with family support and follow-up plans in place.
[2017-05-09 16:55] LABS: Bedside Glucose 291 mg/dL (70-110)
--- NOTE | 2017-05-09 17:07 | PCM.DC ---
- Discharge Diagnoses Current Active Problems: Current Active and Chronic Problems (Last Updated 04/22/17 @ 11:34 by JUAN FRANCISCO Monroe) Diarrhea (Acute) Abdominal pain (Acute) Lactic acidosis (Acute) Chronic renal failure, stage 3 (moderate) (Chronic) Dehydration (Acute) You will use the following diet at home:: Cardiac Your food should be the consistency of: Regular Your liquids should be the consistency of: Regular/Thin Discharge Activity: Return to Normal Activity Allergies/Adverse Reactions: Allergies latex Allergy (Verified 05/08/17 17:56) Rash adhesive tape Adverse Reaction (Verified 05/08/17 17:56) Rash Medications to take at Discharge Insulin Glargine,Hum.rec.anlog [Lantus] 45 unit SC QHS 04/21/16 Morphine Sulfate [Morphine Sulfate ER] 30 mg PO BID 04/21/16 Oxybutynin [Ditropan] 10 mg PO DAILY 04/21/16 Aspirin E.C. [Ecotrin] 81 mg PO DAILY@0800 #30 tab 04/24/16 Atorvastatin Calcium [Lipitor] 40 mg PO DAILY 05/09/16 Gabapentin [Neurontin] 300 mg PO BID 05/09/16 Lansoprazole [Prevacid] 30 mg PO DAILY 05/09/16 Insulin Aspart [Novolog Flexpen] 0 units SC DAILY 11/11/16 cholecalciferol (vitamin D3) 1,000 unit tablet 1,000 unit PO QDAY tab 04/21/17 metformin 500 mg tablet 1,000 mg PO BID 04/21/17 hydralazine 50 mg tablet 50 mg PO DAILY 90 Days #270 04/22/17 lisinopril 20 mg tablet 20 mg PO DAILY 90 Days #90 04/22/17 metoprolol tartrate 25 mg tablet 25 mg PO BID tab 04/22/17 isosorbide mononitrate ER 30 mg tablet,extended release 24 hr 30 mg PO QDAY #30 tab 04/23/17 Levothyroxine [Synthroid] 88 mcg PO DAILY 04/25/17 Primary Care Physician: Fernando Kong MD [Primary Care Provider] - Please follow up with your Primary Care Physician in: 5 to 7 days
--- NOTE | 2017-05-09 17:09 | PCM.DC.SUM ---
Discharge Date and Diagnosis - Problem List Patient Problems: Active and Suspected Problems (Last Updated 04/22/17 @ 11:34 by JUAN FRANCISCO Monroe) Diarrhea (Acute) Abdominal pain (Acute) Lactic acidosis (Acute) Dehydration (Acute) Date of Admission: 05/08/17 Date of Discharge: 05/09/17 - Primary Discharge Diagnosis Active and Suspected Problems (Last Updated 04/22/17 @ 11:34 by JUAN FRANCISCO Monroe) Diarrhea (Acute) Abdominal pain (Acute) Lactic acidosis (Acute) Dehydration (Acute) - Secondary Discharge Diagnosis Chronic Problems (Last Updated 04/22/17 @ 11:34 by JUAN FRANCISCO Monroe) Chronic renal failure, stage 3 (moderate) (Chronic) Hyperlipidemia (Chronic) Other retirement (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 (Chronic) TIA (transient ischemic attack) (Chronic) Angina pectoris (Chronic) Obstructive sleep apnea (Chronic) 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) CABG X 3, SOTO to LAD, SVG to 1st diagonal & SVG to obtuse marginal @ [facility] 04/08/16 Postlaminectomy syndrome of lumbar region (Chronic) Disc degeneration, lumbosacral (Chronic) Lumbosacral radiculopathy (Chronic) Diabetes mellitus, type 2 (Chronic) Hypertension (Chronic) History of stroke (Chronic) Fibromyalgia (Chronic) GERD (Chronic) Hypothyroidism (Chronic) Renal cancer (Chronic) CAD (coronary artery disease) (Chronic) CABG X 3, SOTO to LAD, SVG to 1st diagonal & SVG to obtuse marginal @ [facility] 04/08/16 Hospital Course and Treatment Imaging Results: Diagnostic Data Chest X-Ray 05/08/17 18:19 IMPRESSION: Decreased inspiratory effort with left basilar atelectasis. There is no other significant interval change. Electronically Signed: Floyd Foster DO at 18:55 EDT Tel [phone], Service support , Abdomen CT 05/08/17 21:04 IMPRESSION: There is diffuse atrophy of the pancreas. Stable nodularity in the mid body. This may represent residual pancreatic tissue. Stable partially calcified mass of the anterior right kidney. Stable hypodensity of the mid left kidney. This is consistent for cysts. Hysterectomy. Other findings as above. Electronically Signed: Jl Kimble MD at 23:12 EDT , Service support , CARVER HAND: none. Operations: None Procedures: None Summary of Care Provided: The patient is a 81 year old F past medical history of hypertension, chronic renal failure stage III, coronary artery disease, chronic pain syndrome, history of CVA, uncontrolled diabetes mellitus type 2, fibromyalgia, hyperlipidemia, history of renal cell carcinoma both thyroidism who presented to the emergency department at [facility] on 05/08/2017 complaining of 10-12 episodes of loose watery stool that day. She denied nausea or vomiting. She has recently been on an antibiotic from Dr. Vergara following a procedure to determine if she would benefit from an implantable nerve stimulator. She does not recall the name of the antibiotic and neither does her . She has never had C. Diff. She has been having chills but has not taken her temperature. She denies dysuria. Vital signs at presentation to the emergency room were temperature 98.2, pulse rate 78, blood pressure 177/88, respiratory rate 16 and she was 92% saturated on room air. Her did relate to me that she did not take her antihypertensive at least 3 days last week. She has been known to be noncompliant with medication in the past as well. Significant lab in the emergency room included an elevated white blood cell count at 13.8 with hemoglobin 12.3 and platelets 212,000. There was a normal white blood cell differential. Electrolytes were within normal limits and the BUN was 20 with a creatinine of 1.3 and 1.3 is within her baseline. UA had 0 RBCs and 0-5 WBCs. There were rare bacteria seen. On physical examination she had pain and guarding with palpation of the left lower quadrant and a CT scan of the abdomen and pelvis was obtained and showed diffuse atrophy of the pancreas with nodularity in the body which is stable, stable partially calcified mass of the anterior right kidney, stable hypodensity of the mid left kidney and a normal colon and small intestine. She has not had a BM since arrival to the ER. She will be admitted for observation for reported intractable diarrhea in a pt on antibiotics. Regular consistency meal was tried, she tolerated well. she did not have any more episodes of diarrhea. Etiology is most likely due to viral gastroenteritis. Plan to discharge to home and follow up as outpatient with PCP. Discharge Diet: - - Cardiac deit Discharge Activity: Return to Normal Activity Home Medications: Medications to take at Discharge Insulin Glargine,Hum.rec.anlog [Lantus] 45 unit SC QHS 04/21/16 Morphine Sulfate [Morphine Sulfate ER] 30 mg PO BID 04/21/16 Oxybutynin [Ditropan] 10 mg PO DAILY 04/21/16 Aspirin E.C. [Ecotrin] 81 mg PO DAILY@0800 #30 tab 04/24/16 Atorvastatin Calcium [Lipitor] 40 mg PO DAILY 05/09/16 Gabapentin [Neurontin] 300 mg PO BID 05/09/16 Lansoprazole [Prevacid] 30 mg PO DAILY 05/09/16 Insulin Aspart [Novolog Flexpen] 0 units SC DAILY 11/11/16 cholecalciferol (vitamin D3) 1,000 unit tablet 1,000 unit PO QDAY tab 04/21/17 metformin 500 mg tablet 1,000 mg PO BID 04/21/17 hydralazine 50 mg tablet 50 mg PO DAILY 90 Days #270 04/22/17 lisinopril 20 mg tablet 20 mg PO DAILY 90 Days #90 04/22/17 metoprolol tartrate 25 mg tablet 25 mg PO BID tab 04/22/17 isosorbide mononitrate ER 30 mg tablet,extended release 24 hr 30 mg PO QDAY #30 tab 04/23/17 Levothyroxine [Synthroid] 88 mcg PO DAILY 04/25/17 Primary Care Physician: Fernando Kong MD [Primary Care Provider] - Please follow up with your Primary Care Physician in: 5 to 7 days Disposition: Home Patient Condition:: Good Medical Necessity - Tobacco Use Smoking Status: Never smoker Tobacco Use: Non-smoker Meaningful Use Info Meaningful Use Diagnoses (Choose all that apply): None applicable Code Visit OBSV E&M: 47877 Observation care discharge
--- NOTE | 2017-05-09 17:13 | DS.PCM_ITS ---
Discharge Date and Diagnosis - Problem List Patient Problems: Active and Suspected Problems (Last Updated 04/22/17 @ 11:34 by JUAN FRANCISCO Monroe) Diarrhea (Acute) Abdominal pain (Acute) Lactic acidosis (Acute) Dehydration (Acute) Date of Admission: 05/08/17 Date of Discharge: 05/09/17 - Primary Discharge Diagnosis Active and Suspected Problems (Last Updated 04/22/17 @ 11:34 by JUAN FRANCISCO Monroe) Diarrhea (Acute) Abdominal pain (Acute) Lactic acidosis (Acute) Dehydration (Acute) - Secondary Discharge Diagnosis Chronic Problems (Last Updated 04/22/17 @ 11:34 by JUAN FRANCISCO Monroe) Chronic renal failure, stage 3 (moderate) (Chronic) Hyperlipidemia (Chronic) Other care home (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 (Chronic) TIA (transient ischemic attack) (Chronic) Angina pectoris (Chronic) Obstructive sleep apnea (Chronic) 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) CABG X 3, SOTO to LAD, SVG to 1st diagonal & [facility] Postlaminectomy syndrome of lumbar region (Chronic) Disc degeneration, lumbosacral (Chronic) Lumbosacral radiculopathy (Chronic) Diabetes mellitus, type 2 (Chronic) Hypertension (Chronic) History of stroke (Chronic) Fibromyalgia (Chronic) GERD (Chronic) Hypothyroidism (Chronic) Renal cancer (Chronic) CAD (coronary artery disease) (Chronic) CABG X 3, SOTO to LAD, SVG to 1st diagonal & SVG to obtuse marginal @ [facility] Hospital Course and Treatment Imaging Results: Diagnostic Data Chest X-Ray 05/08/17 18:19 IMPRESSION: Decreased inspiratory effort with left basilar atelectasis. There is no other significant interval change. Electronically Signed: Floyd Foster DO at 18:55 EDT Tel [phone], Service support , Abdomen CT 05/08/17 21:04 IMPRESSION: There is diffuse atrophy of the pancreas. Stable nodularity in the mid body. This may represent residual pancreatic tissue. Stable partially calcified mass of the anterior right kidney. Stable hypodensity of the mid left kidney. This is consistent for cysts. Hysterectomy. Other findings as above. Electronically Signed: Jl Kimble MD at 23:12 EDT , Service support , TRIMMER HELPER: none. Operations: None Procedures: None Summary of Care Provided: The patient is a 81 year old F past medical history of hypertension, chronic renal failure stage III, coronary artery disease, chronic pain syndrome, history of CVA, uncontrolled diabetes mellitus type 2, fibromyalgia, hyperlipidemia, history of renal cell carcinoma both thyroidism who presented to the emergency department at [facility] on 05/08/2017 complaining of 10-12 episodes of loose watery stool that day. She denied nausea or vomiting. She has recently been on an antibiotic from Dr. Vergara following a procedure to determine if she would benefit from an implantable nerve stimulator. She does not recall the name of the antibiotic and neither does her . She has never had C. Diff. She has been having chills but has not taken her temperature. She denies dysuria. Vital signs at presentation to the emergency room were temperature 98.2, pulse rate 78, blood pressure 177/88, respiratory rate 16 and she was 92% saturated on room air. Her did relate to me that she did not take her antihypertensive at least 3 days last week. She has been known to be noncompliant with medication in the past as well. Significant lab in the emergency room included an elevated white blood cell count at 13.8 with hemoglobin 12.3 and platelets 212, 000. There was a normal white blood cell differential. Electrolytes were within normal limits and the BUN was 20 with a creatinine of 1.3 and 1.3 is within her baseline. UA had 0 RBCs and 0-5 WBCs. There were rare bacteria seen. On physical examination she had pain and guarding with palpation of the left lower quadrant and a CT scan of the abdomen and pelvis was obtained and showed diffuse atrophy of the pancreas with nodularity in the body which is stable, stable partially calcified mass of the anterior right kidney, stable hypodensity of the mid left kidney and a normal colon and small intestine. She has not had a BM since arrival to the ER. She will be admitted for observation for reported intractable diarrhea in a pt on antibiotics. Regular consistency meal was tried, she tolerated well. she did not have any more episodes of diarrhea. Etiology is most likely due to viral gastroenteritis. Plan to discharge to home and follow up as outpatient with PCP. Discharge Diet: - - Cardiac deit Discharge Activity: Return to Normal Activity Home Medications: Medications to take at Discharge Insulin Glargine,Hum.rec.anlog [Lantus] 45 unit SC QHS 04/21/16 Morphine Sulfate [Morphine Sulfate ER] 30 mg PO BID 04/21/16 Oxybutynin [Ditropan] 10 mg PO DAILY 04/21/16 Aspirin E.C. [Ecotrin] 81 mg PO DAILY@0800 #30 tab 04/24/16 Atorvastatin Calcium [Lipitor] 40 mg PO DAILY 05/09/16 Gabapentin [Neurontin] 300 mg PO BID 05/09/16 Lansoprazole [Prevacid] 30 mg PO DAILY 05/09/16 Insulin Aspart [Novolog Flexpen] 0 units SC DAILY 11/11/16 cholecalciferol (vitamin D3) 1,000 unit tablet 1,000 unit PO QDAY tab 04/21/17 metformin 500 mg tablet 1,000 mg PO BID 04/21/17 hydralazine 50 mg tablet 50 mg PO DAILY 90 Days #270 04/22/17 lisinopril 20 mg tablet 20 mg PO DAILY 90 Days #90 04/22/17 metoprolol tartrate 25 mg tablet 25 mg PO BID tab 04/22/17 isosorbide mononitrate ER 30 mg tablet,extended release 24 hr 30 mg PO QDAY #30 tab 04/23/17 Levothyroxine [Synthroid] 88 mcg PO DAILY 04/25/17 Primary Care Physician: Fernando Kong MD [Primary Care Provider] - Please follow up with your Primary Care Physician in: 5 to 7 days Disposition: Home Patient Condition:: Good Medical Necessity - Tobacco Use Smoking Status: Never smoker Tobacco Use: Non-smoker Meaningful Use Info Meaningful Use Diagnoses (Choose all that apply): None applicable Code Visit OBSV E&M: 47327 Observation care discharge
== END 2017-05-09 18:00 | disposition home or self-care (01) ==
LOC: ED 18:46 → MS3 05-09 01:50
PROVIDERS: Admitting Provider Internal Medicine; Emergency Provider Emergency Medicine; Family Provider Family Medicine; PCP Family Medicine; Visit Provider Hospitalist
DX: E86.0 Dehydration (principal); R19.7 Diarrhea, unspecified; E87.2 Acidosis; R10.32 Left lower quadrant pain; E78.5 Hyperlipidemia, unspecified; K21.9 Gastro-esophageal reflux disease without esophagitis; I25.10 Atherosclerotic heart disease of native coronary artery without angina pectoris; E03.9 Hypothyroidism, unspecified; M79.7 Fibromyalgia; M96.1 Postlaminectomy syndrome, not elsewhere classified; Y83.8 Other surgical procedures as the cause of abnormal reaction of the patient, or of later complication, without mention of misadventure at the time of the procedure; M51.37 Other intervertebral disc degeneration, lumbosacral region; G47.33 Obstructive sleep apnea (adult) (pediatric); E11.22 Type 2 diabetes mellitus with diabetic chronic kidney disease; I12.9 Hypertensive chronic kidney disease with stage 1 through stage 4 chronic kidney disease, or unspecified chronic kidney disease; N18.3 Chronic kidney disease, stage 3 (moderate); E11.65 Type 2 diabetes mellitus with hyperglycemia; G89.4 Chronic pain syndrome; Z95.1 Presence of aortocoronary bypass graft; Z79.899 Other long term (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; Z79.891 Long term (current) use of opiate analgesic; Z79.4 Long term (current) use of insulin; Z79.82 Long term (current) use of aspirin; Z86.73 Personal history of transient ischemic attack (TIA), and cerebral infarction without residual deficits; Z85.89 Personal history of malignant neoplasm of other organs and systems; Z85.528 Personal history of other malignant neoplasm of kidney; K86.89 Other specified diseases of pancreas; A08.4 Viral intestinal infection, unspecified
CPT/HCPCS: 36415; 71045; 74176; 80048; 80076; 81001; 82962; 83036; 83605; 83735; 84100; 84484; 85025; 87086; 87088; 93005; 96360; 96361; 96372; 99218; 99283; J7030; A4216; G0378

== ENCOUNTER 2017-06-16 13:14 | Day surgery (SDC) | payer MEDICARE, SELFPAY ==
[2017-06-16] VITALS (15 sets, daily range): BP systolic 109–177; BP diastolic 52–100; PULSE 66–72; RESP 16–18; TEMP 36.2–37.2; O2SAT 92–94; BMI 27.9
[2017-06-16 14:01] LABS: Bedside Glucose 165 mg/dL (70-110)
[2017-06-16] MEDS: Cefazolin 2 GM in 0.9% Normal Saline 100 ML IV (15:03)
--- NOTE | 2017-06-16 15:15 | RAD_ITS ---
STUDY: X-RAY - LUMBAR SPINE REASON FOR EXAM: Female, 81 years old. Spinal stimulator placement TECHNIQUE: Eight view(s) of the lumbar spine were obtained. COMPARISON: April 28, 2017 FINDINGS: Limited views of the lower thoracic and upper lumbar spine show procedural placement of spinal stimulator wires. Fluoroscopy time 241.4 seconds. Cumulative dose 116.81 mGy. RAD/Lumbar Spine 2 or 3 Views IMPRESSION: Limited views of the lumbar spine were obtained during placement of spinal stimulator wires. Electronically Signed: Stephanie Roman MD at 21:55 EDT Tel Direct: [phone], Service support ,
[2017-06-16] MEDS: Bupivacaine 0.25% 30 ML Vial (16:30)
[2017-06-16] MEDS: Bacitracin 500 UNITS/GM PACKET (16:55)
--- NOTE | 2017-06-16 16:55 | PCM.OPRPT ---
Problem List (1) Disc degeneration, lumbosacral Status: Chronic (2) Lumbosacral radiculopathy Status: Chronic (3) Postlaminectomy syndrome of lumbar region Status: Chronic Report of Operation Date of Procedure: 06/16/17 Pre-Operative Diagnosis: Lumbosacral radiculopathy, lumbosacral degenerative disc disease, lumbosacral spinal stenosis, postlaminectomy syndrome of the lumbar spine Post-Operative Diagnosis: Lumbosacral radiculopathy, lumbosacral degenerative disc disease, lumbosacral spinal stenosis, postlaminectomy syndrome of the lumbar spine Surgery/Procedure Performed:: 1-implantation of a spinal cord stimulator thoracolumbar leads ?2. 2-implantation of a spinal cord stimulator Medtronic generator. 3-analysis interrogation of a spinal cord stimulator. 4-fluoroscopic guidance Description of Surgical Findings:: PROCEDURE: 1-implantation of a spinal cord stimulator thoracolumbar leads ?2 2-implantation of a spinal cord stimulator Medtronic generator 3-analysis interrogation of a spinal cord stimulator 4-fluoroscopic guidance PREOPERATIVE DIAGNOSIS: Lumbosacral radiculopathy, lumbosacral degenerative disc disease, postlaminectomy syndrome of the lumbar spine POSTOPERATIVE DIAGNOSIS: Sacral radiculopathy, lumbosacral degenerative disc disease, postlaminectomy syndrome of the lumbar spine ANESTHESIA: MAC COMPLICATIONS: None BLOOD LOSS: Minimal <50cc Device implanted: lead #1 Medtronic [id number], lot number [id number], lead#2 Medtronic [id number], [employer] Medtronic generator serial number [id number] PROCEDURE IN DETAIL: History and physical today was reviewed. Risks and benefits of the procedure were explained. The patient understood, agreed to our procedure, and informed consent was obtained. IV inserted per routine protocol. The patient was taken to the operating room, placed in a prone position with a pillow positioned underneath the abdomen. 2 gm IV Ancef delivered to the patient prior to incision per anesthesia team over 30 minutes, the back and left buttock area was prepped and draped in a sterile fashion using iodine ?3 as well as Ioban sheet, under direct visualization with fluoroscopic guidance on a true AP view the L2-3 vertebral bodies were visualized the skin and subcutaneous tissue were anesthetized with approximately 10 cc of a mixture of 1% lidocaine and 0.25% Marcaine using a 25-gauge regular needle followed by a 25-gauge 3-1/2 inch spinal needle to the interlaminar space at L2-3, the skin and subcutaneous tissue were incised with a 11-gauge blade, using the Medtronic 14-gauge 3-1/2 inch Touhy needle provided by Jamn kit the needle passed through the skin and subcutaneous tissue and directed towards the interlaminar space at L2-3 under direct visualization with fluoroscopic guidance on AP as well as lateral view the needle was then advanced to the interlaminar space with [id number] technique to air once loss of resistance was encountered the stylette of the needle was then removed and after repeated confirmation on AP as well as lateral view spinal cord stimulator lead was then advanced under direct visualization with fluoroscopic guidance life imaging to confirm posterior positioning of the spinal cord stimulator at the posterior epidural space the lead was then advanced under direct visualization fluoroscopy to the tip of T8 vertebral body, the procedure was then repeated with an administrative assistant data entry 1 level above for insertion of the second spinal cord stimulator lead the lead was then advanced under direct visualization fluoroscopy on AP as well as lateral view to the middle of T8 vertebral body confirmation was obtained on AP as well as lateral view to confirm correct placement of the leads as well as posterior placement at the posterior epidural space , patient was then awakened for spinal cord stimulator testing once satisfactory positioning and satisfactory coverage of the spinal cord stimulator was achieved, the skin and subcutaneous tissue were then anesthetized with approximately 20 cc of a mixture of 0.25% Marcaine and 1% lidocaine at the left of the midline between the spinal cord stimulator to we needles into introduction and the left buttock and L5 area for the generator pocket creation the skin and subcutaneous tissue were then incised using a an 11-gauge blade and taken down to the fascia electrocautery was then utilized to confirm dryness to the area without any bleeding once the pocket was then created a 2-0 nylon stitch was then taken down to the fascia at the pocket for the eyes of the generator, the [employer] generator was then placed into the pocket impedance was then recorded after the spinal cord stimulator leads were then tunneled prior from the paramedian left side at the lumbar area towards the pocket once satisfactory positioning of the generator the 2 leads were then anchored down to the fascia with a 2-0 Vicryl and after repeated confirmation on AP as well as lateral view was satisfactory positioning of the spinal cord stimulator leads in the posterior component of the epidural space the pocket as well as the previous incision was then closed with a 3-0 Vicryl and a running 4-0 Monocryl, the incisions were then closed with Steri-Strips and bacitracin ointment followed by Tegaderms at the 2 incisions, there were no signs or symptoms intrathecal or intravascular injection, patient experienced no paresthesia the procedure was completed without any apparent difficulty or any complication and the patient appeared to tolerate well patient was then transferred to PACU in satisfactory condition further testing was performed by myself as well as the [employer] quality control representative who was present during the procedure. Discharge instructions: Discharge instruction was given to the patient and her in writing as well as verbally, patient received a prescription for Augmentin 500 mg 1 p.o. every 8 hours for 7 days, and Percocet 53 25 mg 1 p.o. every 4 hours as needed pain ASSESSMENT AND PLAN: This is a 81-year-old female with lumbosacral radiculopathy, lumbosacral degenerative disc disease, postlaminectomy syndrome and lumbar spine status 1-implantation of a spinal cord stimulator thoracolumbar leads ?2 2-implantation of a spinal cord stimulator Medtronic generator 3-analysis interrogation of a spinal cord stimulator 4-fluoroscopic guidance, , Patient will follow in approximately 1 week for reevaluation.
--- NOTE | 2017-06-16 17:14 | OP.PCM_ITS ---
Problem List (1) Disc degeneration, lumbosacral Status: Chronic (2) Lumbosacral radiculopathy Status: Chronic (3) Postlaminectomy syndrome of lumbar region Status: Chronic Report of Operation Date of Procedure: 06/16/17 Pre-Operative Diagnosis: Lumbosacral radiculopathy, lumbosacral degenerative disc disease, lumbosacral spinal stenosis, postlaminectomy syndrome of the lumbar spine Post-Operative Diagnosis: Lumbosacral radiculopathy, lumbosacral degenerative disc disease, lumbosacral spinal stenosis, postlaminectomy syndrome of the lumbar spine Surgery/Procedure Performed:: 1-implantation of a spinal cord stimulator thoracolumbar leads ?2. 2-implantation of a spinal cord stimulator Medtronic generator. 3-analysis interrogation of a spinal cord stimulator. 4- fluoroscopic guidance Description of Surgical Findings:: PROCEDURE: 1-implantation of a spinal cord stimulator thoracolumbar leads ?2 2-implantation of a spinal cord stimulator Medtronic generator 3-analysis interrogation of a spinal cord stimulator 4-fluoroscopic guidance PREOPERATIVE DIAGNOSIS: Lumbosacral radiculopathy, lumbosacral degenerative disc disease, postlaminectomy syndrome of the lumbar spine POSTOPERATIVE DIAGNOSIS: Sacral radiculopathy, lumbosacral degenerative disc disease, postlaminectomy syndrome of the lumbar spine ANESTHESIA: MAC COMPLICATIONS: None BLOOD LOSS: Minimal <50cc Device implanted: lead #1 Medtronic [id number], lot number [id number], lead#2 Medtronic [id number], [employer] Medtronic generator serial number [id number] PROCEDURE IN DETAIL: History and physical today was reviewed. Risks and benefits of the procedure were explained. The patient understood, agreed to our procedure, and informed consent was obtained. IV inserted per routine protocol. The patient was taken to the operating room, placed in a prone position with a pillow positioned underneath the abdomen. 2 gm IV Ancef delivered to the patient prior to incision per anesthesia team over 30 minutes, the back and left buttock area was prepped and draped in a sterile fashion using iodine ?3 as well as Ioban sheet, under direct visualization with fluoroscopic guidance on a true AP view the L2-3 vertebral bodies were visualized the skin and subcutaneous tissue were anesthetized with approximately 10 cc of a mixture of 1% lidocaine and 0.25% Marcaine using a 25- gauge regular needle followed by a 25-gauge 3-1/2 inch spinal needle to the interlaminar space at L2-3, the skin and subcutaneous tissue were incised with a 11-gauge blade, using the Medtronic 14-gauge 3-1/2 inch Touhy needle provided by [employer] kit the needle passed through the skin and subcutaneous tissue and directed towards the interlaminar space at L2-3 under direct visualization with fluoroscopic guidance on AP as well as lateral view the needle was then advanced to the interlaminar space with [id number]-[id number] technique to air once loss of resistance was encountered the stylette of the needle was then removed and after repeated confirmation on AP as well as lateral view spinal cord stimulator lead was then advanced under direct visualization with fluoroscopic guidance life imaging to confirm posterior positioning of the spinal cord stimulator at the posterior epidural space the lead was then advanced under direct visualization fluoroscopy to the tip of T8 vertebral body, the procedure was then repeated with an stretcher leveler operator helper 1 level above for insertion of the second spinal cord stimulator lead the lead was then advanced under direct visualization fluoroscopy on AP as well as lateral view to the middle of T8 vertebral body confirmation was obtained on AP as well as lateral view to confirm correct placement of the leads as well as posterior placement at the posterior epidural space , patient was then awakened for spinal cord stimulator testing once satisfactory positioning and satisfactory coverage of the spinal cord stimulator was achieved, the skin and subcutaneous tissue were then anesthetized with approximately 20 cc of a mixture of 0.25% Marcaine and 1% lidocaine at the left of the midline between the spinal cord stimulator to we needles into introduction and the left buttock and L5 area for the generator pocket creation the skin and subcutaneous tissue were then incised using a an 11-gauge blade and taken down to the fascia electrocautery was then utilized to confirm dryness to the area without any bleeding once the pocket was then created a 2-0 nylon stitch was then taken down to the fascia at the pocket for the eyes of the generator, the [employer] generator was then placed into the pocket impedance was then recorded after the spinal cord stimulator leads were then tunneled prior from the paramedian left side at the lumbar area towards the pocket once satisfactory positioning of the generator the 2 leads were then anchored down to the fascia with a 2-0 Vicryl and after repeated confirmation on AP as well as lateral view was satisfactory positioning of the spinal cord stimulator leads in the posterior component of the epidural space the pocket as well as the previous incision was then closed with a 3-0 Vicryl and a running 4-0 Monocryl, the incisions were then closed with Steri-Strips and bacitracin ointment followed by Tegaderms at the 2 incisions, there were no signs or symptoms intrathecal or intravascular injection, patient experienced no paresthesia the procedure was completed without any apparent difficulty or any complication and the patient appeared to tolerate well patient was then transferred to PACU in satisfactory condition further testing was performed by myself as well as the Med[employer] uniforms sales representative who was present during the procedure. Discharge instructions: Discharge instruction was given to the patient and her in writing as well as verbally, patient received a prescription for Augmentin 500 mg 1 p.o. every 8 hours for 7 days, and Percocet 53 25 mg 1 p.o. every 4 hours as needed pain ASSESSMENT AND PLAN: This is a 81-year-old female with lumbosacral radiculopathy, lumbosacral degenerative disc disease, postlaminectomy syndrome and lumbar spine status 1- implantation of a spinal cord stimulator thoracolumbar leads ?2 2-implantation of a spinal cord stimulator Medtronic generator 3-analysis interrogation of a spinal cord stimulator 4-fluoroscopic guidance, , Patient will follow in approximately 1 week for reevaluation.
[2017-06-16 17:25] LABS: Bedside Glucose 211 mg/dL (70-110)
--- NOTE | 2017-06-16 19:02 | SUR.PHASEII ---
At 1835, patient c/o generalized as well as back pain. No S/S bleeding, hematoma, or ecchymosis at surgical site. Patient did relate she has chronic pain and usually takes PO Morphine 60 mg BID and is past due for her evening dose by almost two hours. Encouraged to take own PO Morphine on arrival home with snack and rest per D/C instruction. Reviewed general D/C instructions with , especially any S/S infection including fever, redness, uncontrolled pain, swelling, yellow/green drainage; verbalizes understanding as well as to Spinal Stimulator instructions as taught to him pre-op by company business process representative. Patient and agreeable to D/C home.
== END 2017-06-16 18:42 | disposition home or self-care (01) ==
LOC: SDC 13:14 → AC 13:18
PROVIDERS: Family Provider Family Medicine; PCP Family Medicine; Visit Provider Anesthesiology Pain Medicine
PROC: (CPT 63685; principal; 2017-06-16 14:25)
DX: M51.17 Intervertebral disc disorders with radiculopathy, lumbosacral region (principal); M48.07 Spinal stenosis, lumbosacral region; M96.1 Postlaminectomy syndrome, not elsewhere classified; I10 Essential (primary) hypertension; G47.30 Sleep apnea, unspecified; K21.9 Gastro-esophageal reflux disease without esophagitis; E11.9 Type 2 diabetes mellitus without complications; E78.00 Pure hypercholesterolemia, unspecified; Z85.528 Personal history of other malignant neoplasm of kidney; Z79.4 Long term (current) use of insulin
CPT/HCPCS: 00400; 63650; 63685; 72100; 76000; 82962; C1778; J7120; J3490

== ENCOUNTER → 2017-08-06 14:51 | Outpatient (CLI) | payer MEDICARE, SELFPAY ==
[2017-08-06 15:54] LABS: Absolute Lymphocyte Count 2.61 X10^3/ul (0.83-4.51); Absolute Neutrophil Count 6.7 X10^3/uL (2.0-7.7); Basophil# 0.02 X10^3/uL; Basophil% 0.2 % (0-1); Eosinophil# 0.15 X10^3/uL; Eosinophils% 1.5 % (0-5); Hematocrit 36.8 % (37-47); Lymphocyte # 2.61 X10^3/ul (4.0); Lymphocyte % 25.5 % (19-41); Mean Corp Hgb Conc 32.6 g/gl (32-36); Mean Corpuscular Hgb 29.7 pg (27.0-32.0); Mean Corpuscular Volume 91.1 fL (81-99); Mean Platelet Vol. 11.4 fl (6.2-12.0); Monocyte# 0.71 X10^3/uL; Monocyte% 6.9 % (0-10); Neutrophil # 6.73 X10^3/uL (2.7-7.7); Neutrophil % 65.8 % (47-70); Platelet Count 194 K/mm3 (150-450); RBC Distribution Width CV 13.1 % (11.6-14.6); RBC Distribution Width SD 43.5 fl (35.1-43.9); Red Blood Count 4.04 M/mm3 (4.2-5.4); White Blood Count 10.2 K/mm3 (4.4-11.0)
[2017-08-06 15:59] LABS: POSITIVE COUNT NO; POSITIVE DIFFERENTIAL NO; POSITIVE MORPHOLOGY NO
[2017-08-06 16:10] LABS: Anion Gap 10 (5-15); BUN 21 mg/dL (7-18); BUN/Creat Ratio 15.9 RATIO (10-20); Calcium,Total 8.4 mg/dL (8.5-10.1); Chloride 107 mmol/L (98-107); Creatinine, Serum 1.32 mg/dL (0.55-1.02); EST Glomerular Filtration Rate 41 mL/min (>60); Est Glom Filt Rate - Afr Amer 50 mL/min (>60); Glucose 230 mg/dL (74-106); Sodium Level 141 mmol/L (136-145); T4 Free Direct 1.11 ng/dL (0.76-1.46); Thyroid Stim Hormone (TSH) 0.27 uIU/mL (0.358-3.74)
[2017-08-06 16:12] LABS: Vitamin D,25 Hydroxy 29.9 ng/mL (29.95-100.01)
== END ==
PROVIDERS: Family Provider Family Medicine; PCP Family Medicine; Visit Provider Family Medicine
DX: N18.3 Chronic kidney disease, stage 3 (moderate) (principal); E55.9 Vitamin D deficiency, unspecified; E03.9 Hypothyroidism, unspecified
CPT/HCPCS: 36415; 80048; 82306; 84439; 84443; 85025

== ENCOUNTER 2017-08-25 13:43 | Inpatient (IN) | payer MEDICARE, SELFPAY ==
[2017-08-25] VITALS (14 sets, daily range): BP systolic 125–178; BP diastolic 76–104; PULSE 68–91; RESP 16–23; TEMP 36.6–36.8; O2SAT 91–99; BMI 25.7; BMI 27.2
[2017-08-25 13:51] LABS: Bedside Glucose > 500 mg/dL (70-110)
--- NOTE | 2017-08-25 13:54 | CT_ITS ---
STUDY: CT BRAIN WITHOUT CONTRAST REASON FOR EXAM: Female, 81 years old. Neurological symptoms. RADIATION DOSAGE (If Supplied By Facility): CTDIvol = ( 44.99 ) mGy, DLP = ( 745.49 ) mGycm TECHNIQUE: Transaxial CT imaging of the brain was performed without administration of intravenous contrast material. Individualized dose optimization techniques were used for this CT. COMPARISON: Comparison is made with a prior study dated April 21, 2016. FINDINGS: Normal soft tissue structures. Normal calvarium. There is mild cerebral atrophy with widening of the extra-axial spaces and ventricular dilatation. There are areas of decreased attenuation within the white matter tracts of the supratentorial brain, consistent with microvascular disease changes. Normal basal ganglia and thalami. Normal brainstem. There is mild cerebellar atrophy. Stable focal hypodensity in the medial aspect of the right cerebellar hemisphere suggestive of old lacunar infarct. There is no intracranial hemorrhage. There are no findings of an acute ischemic infarction. Atherosclerotic calcification of the vertebral arteries and cavernous portions of the internal carotid arteries bilaterally. Mucosal thickening of the posterior aspect of the right sphenoid sinus. CT/Brain/Head without Contrast IMPRESSION: Chronic involutional changes of the brain. Mucosal thickening of the posterior aspect of the right sphenoid sinus. Electronically Signed: Sai Calhoun MD at 14:21 EDT Tel [phone], Service support ,
--- NOTE | 2017-08-25 13:59 | EKG12_ITS ---
Test Reason : NEURO Blood Pressure : / mmHG Vent. Rate : 097 BPM Atrial Rate : 097 BPM P-R Int : 172 ms QRS Dur : 076 ms QT Int : 368 ms P-R-T Axes : 055 011 -24 degrees QTc Int : 467 ms Suspect unspecified pacemaker failure Normal sinus rhythm Nonspecific ST and T wave abnormality Abnormal ECG Confirmed by LAURA BENITEZ, CARRIE ([id number]), international editorial producer WILY TIRADO ([id number]) on 08/27/2017 2:12:21 PM Referred By: LÓPEZ Confirmed By:CARRIE SANCHEZ MD
[2017-08-25 14:16] LABS: Absolute Lymphocyte Count 3.08 X10^3/ul (0.83-4.51); Absolute Neutrophil Count 8.3 X10^3/uL (2.0-7.7); Basophil# 0.05 X10^3/uL; Basophil% 0.4 % (0-1); Eosinophil# 0.12 X10^3/uL; Hematocrit 39.5 % (37-47); Hemoglobin 13.2 g/dl (12.0-15.0); Lymphocyte # 3.08 X10^3/ul (4.0); Lymphocyte % 25.1 % (19-41); Mean Corp Hgb Conc 33.4 g/gl (32-36); Mean Corpuscular Hgb 30.1 pg (27.0-32.0); Monocyte# 0.74 X10^3/uL; Neutrophil # 8.25 X10^3/uL (2.7-7.7); Neutrophil % 67.3 % (47-70); Platelet Count 236 K/mm3 (150-450); RBC Distribution Width CV 12.9 % (11.6-14.6); Red Blood Count 4.39 M/mm3 (4.2-5.4); White Blood Count 12.3 K/mm3 (4.4-11.0)
[2017-08-25 14:18] LABS: POSITIVE COUNT NO; POSITIVE DIFFERENTIAL NO; POSITIVE MORPHOLOGY NO
[2017-08-25 14:23] LABS: Anion Gap 12 (5-15); BUN 29 mg/dL (7-18); BUN/Creat Ratio 17.5 RATIO (10-20); Calcium,Total 9.6 mg/dL (8.5-10.1); Chloride 97 mmol/L (98-107); Creatinine, Serum 1.66 mg/dL (0.55-1.02); EST Glomerular Filtration Rate 32 mL/min (>60); Est Glom Filt Rate - Afr Amer 38 mL/min (>60); Estimated Creatinine Clearance 24.73 ml/min; Glucose 548 mg/dL (74-106); Potassium 4.3 mmol/L (3.5-5.1); Prothrombin Time (Protime)PT. 13.1 SECONDS (11.7-14.9); Sodium Level 133 mmol/L (136-145)
[2017-08-25 14:24] LABS: Partial Thromboplast Time 26.9 Seconds (24.1-36.2)
--- NOTE | 2017-08-25 14:24 | ED.RN ---
LAB CALLED WITH CRITICAL RESULT. BGL OF 548. DR. GALVAN NOTIFIED, NO ORDERS GIVEN.
--- NOTE | 2017-08-25 15:49 | ED.VISSUMM ---
- ER Visit Summary Date of Service: 08/25/17 Chief Complaint: Difficulty with speaking History of Present Illness: The patient is a 81 F presenting with difficulty with speech. Her states she woke up around 7 AM. She had trouble finding words. This lasted all throughout the day. He states he initially did not think it was a stroke because she did not have slurred speech. She was unable to find the words that she wanted to say. Denies vision changes. Denies numbness or weakness. Denies other complaints. Physical Examination: Vitals are stable. Patient is afebrile. Alert no acute distress. HEENT exam is unremarkable. Neck is supple. Lungs are clear and equal bilaterally. Heart is regular rate and rhythm. Abdomen is soft nontender nondistended. Extremities are unremarkable. Skin is warm and dry. No focal neurologic deficit. NIH 0 Remainder of exam is unremarkable. Emergency Department Course and Treatment: CBC, chemistries unremarkable other than creatinine 1.66 which is at her baseline, glucose 548.. INR 1.0. CT head shows chronic changes. On repeat evaluation her NIH is 0. Will discuss with the hospitalist for admission. Disposition: Admission Impression: TIA This note was generated with [employer] dictation software. It may contain incorrect words, spelling, and punctuation that were not noted in review of the chart prior to signing ED Disposition - Plan for ED Patient: Chief Complaint: Neuro S/Sx Referrals: Fernando Kong MD [Primary Care Provider] -
--- NOTE | 2017-08-25 17:38 | PCM.HP.STD ---
Problem List (1) CVA (cerebral vascular accident) Status: Acute History of Present Illness Date of Admission: 08/25/17 Chief Complaint: expressive aphasia The patient is a 81 year old F presents with difficulty speaking. Patient did not have any slurred speech but did have say some nonsensical things and times would not respond to questions by her . This occurred around 0700 today. Patient is never had this before. Patient was brought to the emergency room and underwent a workup that was unremarkable. Patient be admitted for further stroke evaluation. Patient does have some expressive aphasia and some nonsensical speech so history is obtained through the emergency room physician as well as her at bedside. [] Past Medical History Past Medical History (Chronic Problems): Chronic Problems (Last Reviewed 08/25/17 @ 17:39 by Yuriy Browning DO) Chronic renal failure, stage 3 (moderate) (Chronic) Hyperlipidemia (Chronic) Other nursing home (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 (Chronic) TIA (transient ischemic attack) (Chronic) Angina pectoris (Chronic) Obstructive sleep apnea (Chronic) 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) CABG X 3, SOTO to LAD, SVG to 1st diagonal & SVG to obtuse marginal @ [facility] 04/08/16 Postlaminectomy syndrome of lumbar region (Chronic) Disc degeneration, lumbosacral (Chronic) Lumbosacral radiculopathy (Chronic) Diabetes mellitus, type 2 (Chronic) Hypertension (Chronic) History of stroke (Chronic) Fibromyalgia (Chronic) GERD (Chronic) Hypothyroidism (Chronic) Renal cancer (Chronic) CAD (coronary artery disease) (Chronic) CABG X 3, SOTO to LAD, SVG to 1st diagonal & SVG to obtuse marginal @ [facility] 04/08/16 Medical History: Medical History (Last Reviewed 08/25/17 @ 17:39 by Yuriy Browning DO) Hyperlipidemia (Chronic) E78.5 Obstructive sleep apnea (Chronic) G47.33 Diabetes mellitus, type 2 (Chronic) E11.9 Hypertension (Chronic) I10 History of stroke (Chronic) Z86.73 CAD (coronary artery disease) (Chronic) I25.10 CABG X 3, SOTO to LAD, SVG to 1st diagonal & SVG to obtuse marginal @ [facility] 04/08/16 Chest pain R07.9 Dyspnea on exertion R06.09 Edema R60.9 Fatigue R53.83 Shortness of breath R06.02 Allergies latex Allergy (Verified 07/29/17 14:47) Rash adhesive tape Adverse Reaction (Verified 07/29/17 14:47) Rash Home Medications: Ambulatory Orders Medication Instructions Recorded Aspirin E.C. [Ecotrin] 81 mg PO DAILY@0800 #30 tab 04/24/16 Gabapentin [Neurontin] 300 mg PO BID 05/09/16 Lansoprazole [Prevacid] 30 mg PO DAILY 05/09/16 cholecalciferol (vitamin D3) 1,000 1,000 unit PO QDAY tab 04/21/17 unit tablet hydralazine 50 mg tablet 50 mg PO TID 90 Days #270 04/22/17 lisinopril 20 mg tablet 20 mg PO DAILY 90 Days #90 04/22/17 Levothyroxine [Synthroid] 88 mcg PO DAILY 04/25/17 atorvastatin 40 mg tablet 40 mg PO DAILY #90 tab 06/30/17 metoprolol tartrate 25 mg tablet 25 mg PO BID #180 tab 08/04/17 Insulin Glargine [Lantus SoloStar See Protocol SC 08/25/17 Pen] Insulin Lispro [Humalog KwikPen] See Protocol SC 08/25/17 Isosorbide Mononitrate [Isosorbide 30 mg PO DAILY 08/25/17 Mononitrate ER] Metformin(XR) [Glucophage Xr] 1,000 mg PO BID 08/25/17 Oxybutynin Chloride [Ditropan Xl] 10 mg PO DAILY 08/25/17 morphine SR tablet [MS Contin] 15 mg PO DAILY 08/25/17 Surgical History: Surgical History (Last Reviewed 08/25/17 @ 17:39 by Yuriy Browning DO) History of knee replacement (Resolved) Z96.659 Hx of tonsillectomy (Resolved) Z90.89 Hx of cholecystectomy (Resolved) Z90.49 H/O: hysterectomy (Resolved) Z90.710 History of lumbar surgery (Resolved) Z98.890 linda and screws 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) Z95.1 CABG X 3, SOTO to LAD, SVG to 1st diagonal & SVG to obtuse marginal @ [facility] 04/08/16 Surgical History: appendectomy, cholecystectomy, herniorrhaphy, hysterectomy, total knee arthroplasty, tonsillectomy, - - cryotherapy for kidney tumor Psychiatric History: No 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 DIRECTOR OF PHYSICAL THERAPY History: No pertinent DIRECTOR OF PHYSICAL THERAPY history Smoking Status: Never smoker - *Family History Maternal Family History: Family History (Last Reviewed 08/25/17 @ 17:39 by Yuriy Browning DO) Father Heart disease History Items: Diabetes, Heart Disease - age 95 Paternal Family History: Family History (Last Reviewed 08/25/17 @ 17:39 by Yuriy Browning DO) Father Heart disease History Items: Heart Disease - age 69 Review of Systems Neurological: Reports: Change in Speech, - - Expressive aphasia Comment: Patient is confused and unable to provide adequate review of systems at this time. VTE Information - Inpt Only VTE Present on Admission: No VTE Mechan Device Prophylaxis: None VTE Pharm Prophylaxis ordered?: Yes Patient Problems: Active and Suspected Problems (Last Reviewed 08/25/17 @ 17:39 by Yuriy Browning DO) CVA (cerebral vascular accident) (Acute) - Physical Exam General: Alert, Oriented x3, - - Expressive aphasia HEENT: Atraumatic, PERRLA, EOMI, Normocephalic, - - Visual mcgee intact Oral: Moist Mucosa, No Gingival or Mucosal Lesions/ Ulcerations Neck: No Nodes, Thyroid Normal Size and Texture Lungs: Clear to auscultation, Normal air movement Cardiovascular: Regular rate, Regular Rhythm, Normal S1, Normal S2, No murmurs Abdomen: Bowel Sounds Present, Soft, Non Tender Extremities: No edema, No Calf Tenderness Skin: No rashes, No breakdown Musculoskeletal: No Tenderness to Palpation of Joints or Extremities, No Muscle Wasting Neurological: Cranial nerves II-XII grossly intact, Neuro grossly intact, Motor Exam 5/5 strength throughout, - - NIH 2 patient received points for dysarthria as well as some Psych/Mental Status: Normal Affect, Appropriate Vital Signs Temp Pulse Resp BP Pulse Ox 36.6 C 84 18 177/96 H 98 08/25/17 13:44 08/25/17 17:04 08/25/17 17:04 08/25/17 17:04 08/25/17 17:04 Oxygen Delivery Method Room Air Weight: 70.307 kg Body Mass Index (BMI) 25.7 Finger Stick Blood Glucose 500 Laboratory Tests Past 24 Hrs 08/25/17 08/25/17 08/25/17 13:55 13:55 13:55 WBC 12.3 H RBC 4.39 Hgb 13.2 Hct 39.5 MCV 90.0 MCH 30.1 MCHC 33.4 RDW 12.9 RDW Differential 42.0 Plt Count 236 MPV 12.0 Immature Gran % (Auto) 0.200 Neut % (Auto) 67.3 Lymph % (Auto) 25.1 [place] % (Auto) 6.0 Eos % (Auto) 1.0 Baso % (Auto) 0.4 Absolute Neuts (auto) 8.3 H Absolute Lymphs (auto) 3.08 Total Counted Not Reportable PT 13.1 INR 1.0 APTT 26.9 Sodium 133 L Potassium 4.3 Chloride 97 L Carbon Dioxide 24.0 Anion Gap 12 BUN 29 H Creatinine 1.66 H Estim Creat Clear Calc 24.73 Est GFR (MDRD) Af Amer 38 L Est GFR (MDRD) Non-Af 32 L BUN/Creatinine Ratio 17.5 Glucose 548 H* Calcium 9.6 Acetone Level 08/25/17 13:55 WBC RBC Hgb Hct MCV MCH MCHC RDW RDW Differential Plt Count MPV Immature Gran % (Auto) Neut % (Auto) Lymph % (Auto) [place] % (Auto) Eos % (Auto) Baso % (Auto) Absolute Neuts (auto) Absolute Lymphs (auto) Total Counted PT INR APTT Sodium Potassium Chloride Carbon Dioxide Anion Gap BUN Creatinine Estim Creat Clear Calc Est GFR (MDRD) Af Amer Est GFR (MDRD) Non-Af BUN/Creatinine Ratio Glucose Calcium Acetone Level NEGATIVE POC Glucose 08/25/17 13:47 POC Glucose > 500 H* Clinical Impression(s) from Imaging Studies Brain CT 08/25/17 13:54 IMPRESSION: Chronic involutional changes of the brain. Mucosal thickening of the posterior aspect of the right sphenoid sinus. Electronically Signed: Sai Calhoun MD at 14:21 EDT Tel [phone], Service support , EKG reviewed and showed normal sinus rhythm. Assessment/Plan All Active Problems (Last Reviewed 08/25/17 @ 17:39 by Yuriy Browning DO) CVA (cerebral vascular accident) (Acute) History of knee replacement (Resolved) Hx of tonsillectomy (Resolved) Hx of cholecystectomy (Resolved) H/O: hysterectomy (Resolved) History of lumbar surgery (Resolved) Diarrhea (Acute) Abdominal pain (Acute) Lactic acidosis (Acute) Dehydration (Acute) Hyperkalemia (Resolved) Third nerve palsy (Resolved) 1. Suspected acute stroke NIH of 2 Continue with aspirin and atorvastatin Patient has a implanted pain pump so cannot do an MRI Will repeat head CT without contrast in the morning Check an echocardiogram Consult neurology Physical and occupational therapy Bedside swallow evaluation, if patient fails then patient will see speech therapy but she passes patient can start diet. 2. Diabetes mellitus type 2 Continue with her home regimen of insulin Continue with Metformin 3. DVT prophylaxis with Lovenox Code Visit Inpatient E&M: 36181 Init Hosp L3
--- NOTE | 2017-08-25 17:45 | HP.PCM_ITS ---
Problem List (1) CVA (cerebral vascular accident) Status: Acute History of Present Illness Date of Admission: 08/25/17 Chief Complaint: expressive aphasia The patient is a 81 year old F presents with difficulty speaking. Patient did not have any slurred speech but did have say some nonsensical things and times would not respond to questions by her . This occurred around 0700 today. Patient is never had this before. Patient was brought to the emergency room and underwent a workup that was unremarkable. Patient be admitted for further stroke evaluation. Patient does have some expressive aphasia and some nonsensical speech so history is obtained through the emergency room physician as well as her at bedside. 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) CABG X 3, SOTO to LAD, SVG to 1st diagonal & SVG to obtuse marginal @ summa Postlaminectomy syndrome of lumbar region (Chronic) Disc degeneration, lumbosacral (Chronic) Lumbosacral radiculopathy (Chronic) Diabetes mellitus, type 2 (Chronic) Hypertension (Chronic) History of stroke (Chronic) Fibromyalgia (Chronic) GERD (Chronic) Hypothyroidism (Chronic) Renal cancer (Chronic) CAD (coronary artery disease) (Chronic) CABG X 3, SOTO to LAD, SVG to 1st diagonal & SVG to obtuse marginal @ summa Medical History: Medical History (Last Reviewed 08/25/17 @ 17:39 by Yuriy Browning DO) Hyperlipidemia (Chronic) E78.5 Obstructive sleep apnea (Chronic) G47.33 Diabetes mellitus, type 2 (Chronic) E11.9 Hypertension (Chronic) I10 History of stroke (Chronic) Z86.73 CAD (coronary artery disease) (Chronic) I25.10 CABG X 3, SOTO to LAD, SVG to 1st diagonal & SVG to obtuse marginal @ summa Chest pain R07.9 Dyspnea on exertion R06.09 Edema R60.9 Fatigue R53.83 Shortness of breath R06.02 Allergies latex Allergy (Verified 07/29/17 14:47) Rash adhesive tape Adverse Reaction (Verified 07/29/17 14:47) Rash Home Medications: Ambulatory Orders Medication Instructions Recorded Aspirin E.C. [Ecotrin] 81 mg PO DAILY@0800 #30 tab 04/24/16 Gabapentin [Neurontin] 300 mg PO BID 05/09/16 Lansoprazole [Prevacid] 30 mg PO DAILY 05/09/16 cholecalciferol (vitamin D3) 1,000 1,000 unit PO QDAY tab 04/21/17 unit tablet hydralazine 50 mg tablet 50 mg PO TID 90 Days #270 04/22/17 lisinopril 20 mg tablet 20 mg PO DAILY 90 Days #90 04/22/17 Levothyroxine [Synthroid] 88 mcg PO DAILY 04/25/17 atorvastatin 40 mg tablet 40 mg PO DAILY #90 tab 06/30/17 metoprolol tartrate 25 mg tablet 25 mg PO BID #180 tab 08/04/17 Insulin Glargine [Lantus SoloStar See Protocol SC 08/25/17 Pen] Insulin Lispro [Humalog KwikPen] See Protocol SC 08/25/17 Isosorbide Mononitrate [Isosorbide 30 mg PO DAILY 08/25/17 Mononitrate ER] Metformin(XR) [Glucophage Xr] 1,000 mg PO BID 08/25/17 Oxybutynin Chloride [Ditropan Xl] 10 mg PO DAILY 08/25/17 morphine SR tablet [MS Contin] 15 mg PO DAILY 08/25/17 Surgical History: Surgical History (Last Reviewed 08/25/17 @ 17:39 by Yuriy Browning DO) History of knee replacement (Resolved) Z96.659 Hx of tonsillectomy (Resolved) Z90.89 Hx of cholecystectomy (Resolved) Z90.49 H/O: hysterectomy (Resolved) Z90.710 History of lumbar surgery (Resolved) Z98.890 linda and screws 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) Z95.1 CABG X 3, SOTO to LAD, SVG to 1st diagonal & SVG to obtuse marginal @ summa Surgical History: appendectomy, cholecystectomy, herniorrhaphy, hysterectomy, total knee arthroplasty, tonsillectomy, - - cryotherapy for kidney tumor Psychiatric History: No 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 MATERIAL MIXER History: No pertinent MATERIAL MIXER history Smoking Status: Never smoker - *Family History Maternal Family History: Family History (Last Reviewed 08/25/17 @ 17:39 by Yuriy Browning DO) Father Heart disease History Items: Diabetes, Heart Disease - age 95 Paternal Family History: Family History (Last Reviewed 08/25/17 @ 17:39 by uYriy Browning DO) Father Heart disease History Items: Heart Disease - age 69 Review of Systems Neurological: Reports: Change in Speech, - - Expressive aphasia Comment: Patient is confused and unable to provide adequate review of systems at this time. VTE Information - Inpt Only VTE Present on Admission: No VTE Mechan Device Prophylaxis: None VTE Pharm Prophylaxis ordered?: Yes Patient Problems: Active and Suspected Problems (Last Reviewed 08/25/17 @ 17:39 by Yuriy Browning DO) CVA (cerebral vascular accident) (Acute) - Physical Exam General: Alert, Oriented x3, - - Expressive aphasia HEENT: Atraumatic, PERRLA, EOMI, Normocephalic, - - Visual mcgee intact Oral: Moist Mucosa, No Gingival or Mucosal Lesions/ Ulcerations Neck: No Nodes, Thyroid Normal Size and Texture Lungs: Clear to auscultation, Normal air movement Cardiovascular: Regular rate, Regular Rhythm, Normal S1, Normal S2, No murmurs Abdomen: Bowel Sounds Present, Soft, Non Tender Extremities: No edema, No Calf Tenderness Skin: No rashes, No breakdown Musculoskeletal: No Tenderness to Palpation of Joints or Extremities, No Muscle Wasting Neurological: Cranial nerves II-XII grossly intact, Neuro grossly intact, Motor Exam 5/5 strength throughout, - - NIH 2 patient received points for dysarthria as well as some Psych/Mental Status: Normal Affect, Appropriate Vital Signs Temp Pulse Resp BP Pulse Ox 36.6 C 84 18 177/96 H 98 08/25/17 13:44 08/25/17 17:04 08/25/17 17:04 08/25/17 17:04 08/25/17 17:04 Oxygen Delivery Method Room Air Weight: 70.307 kg Body Mass Index (BMI) 25.7 Finger Stick Blood Glucose 500 Laboratory Tests Past 24 Hrs 08/25/17 08/25/17 08/25/17 13:55 13:55 13:55 WBC 12.3 H RBC 4.39 Hgb 13.2 Hct 39.5 MCV 90.0 MCH 30.1 MCHC 33.4 RDW 12.9 RDW Differential 42.0 Plt Count 236 MPV 12.0 Immature Gran % (Auto) 0.200 Neut % (Auto) 67.3 Lymph % (Auto) 25.1 Ellis % (Auto) 6.0 Eos % (Auto) 1.0 Baso % (Auto) 0.4 Absolute Neuts (auto) 8.3 H Absolute Lymphs (auto) 3.08 Total Counted Not Reportable PT 13.1 INR 1.0 APTT 26.9 Sodium 133 L Potassium 4.3 Chloride 97 L Carbon Dioxide 24.0 Anion Gap 12 BUN 29 H Creatinine 1.66 H Estim Creat Clear Calc 24.73 Est GFR (MDRD) Af Amer 38 L Est GFR (MDRD) Non-Af 32 L BUN/Creatinine Ratio 17.5 Glucose 548 H* Calcium 9.6 Acetone Level 08/25/17 13:55 WBC RBC Hgb Hct MCV MCH MCHC RDW RDW Differential Plt Count MPV Immature Gran % (Auto) Neut % (Auto) Lymph % (Auto) Ellis % (Auto) Eos % (Auto) Baso % (Auto) Absolute Neuts (auto) Absolute Lymphs (auto) Total Counted PT INR APTT Sodium Potassium Chloride Carbon Dioxide Anion Gap BUN Creatinine Estim Creat Clear Calc Est GFR (MDRD) Af Amer Est GFR (MDRD) Non-Af BUN/Creatinine Ratio Glucose Calcium Acetone Level NEGATIVE POC Glucose 08/25/17 13:47 POC Glucose > 500 H* Clinical Impression(s) from Imaging Studies Brain CT 08/25/17 13:54 IMPRESSION: Chronic involutional changes of the brain. Mucosal thickening of the posterior aspect of the right sphenoid sinus. Electronically Signed: Sai Calhoun MD at 14:21 EDT Tel [phone], Service support , EKG reviewed and showed normal sinus rhythm. Assessment/Plan All Active Problems (Last Reviewed 08/25/17 @ 17:39 by Yuriy Browning DO) CVA (cerebral vascular accident) (Acute) History of knee replacement (Resolved) Hx of tonsillectomy (Resolved) Hx of cholecystectomy (Resolved) H/O: hysterectomy (Resolved) History of lumbar surgery (Resolved) Diarrhea (Acute) Abdominal pain (Acute) Lactic acidosis (Acute) Dehydration (Acute) Hyperkalemia (Resolved) Third nerve palsy (Resolved) 1. Suspected acute stroke * NIH of 2 * Continue with aspirin and atorvastatin * Patient has a implanted pain pump so cannot do an MRI * Will repeat head CT without contrast in the morning * Check an echocardiogram * Consult neurology * Physical and occupational therapy * Bedside swallow evaluation, if patient fails then patient will see speech therapy but she passes patient can start diet. 2. Diabetes mellitus type 2 * Continue with her home regimen of insulin * Continue with Metformin 3. DVT prophylaxis with Lovenox Code Visit Inpatient E&M: 79111 Init Hosp L3
--- NOTE | 2017-08-25 18:05 | NURSING ---
1748 called er charge nurse to receive patient
--- NOTE | 2017-08-25 18:07 | ECHOD_ITS ---
Reason For Study: TIA/CVA Procedure This was a 2D Doppler, Color Flow transthoracic echocardiogram. Exam performed portable in patient room. Left Ventricle Normal LV size. Left ventricular systolic function is normal. The estimated ejection fraction is 65 %. Stage 1 diastolic dysfunction. No regional wall motion abnormalities noted. Right Ventricle Normal RV size. Normal systolic function. Atria Normal left atrium. Normal right atrium. Mitral Valve Normal mitral valve. Tricuspid Valve Normal tricuspid valve. Mild tricuspid valve insufficiency. Pulmonary artery systolic pressure is 35 mmHg. Aortic Valve The aortic valve is not well visualized. Pulmonic Valve The pulmonic valve is not well visualized. Great Vessels Normal aortic root. The pulmonary artery is normal size. Normal inferior vena cava. Pericardium/Pleural No pericardial effusion. MMode/2D Measurements & Calculations LVIDd: 3.3 cm IVSd: 1.2 cm Ao root diam: 3.3 cm LVIDs: 1.7 cm LVPWd: 1.0 cm LA dimension: 3.5 cm RVDd: 2.2 cm FS: 47.7 % LAV(MOD-bp): 33.2 ml LVAd ap4: 28.4 cm2 SV(MOD-sp4): 51.7 ml LAV(MOD-bp) Indexed: 18.7 ml/m2 EDV(MOD-sp4): 90.1 ml LAV(MOD-sp2): 37.7 ml EDV(sp4-el): 96.0 ml LAV(MOD-sp4): 20.3 ml LVAs ap4: 16.1 cm2 ESV(MOD-sp4): 38.4 ml ESV(sp4-el): 38.5 ml EF(MOD-sp4): 57.4 % EF(sp4-el): 59.9 % SV(sp4-el): 57.5 ml LA A4 area: 9.6 cm2 RA A4 area: 8.6 cm2 Doppler Measurements & Calculations MV E max sumeet: 53.5 cm/sec Lat Peak E' Sumeet: 11.2 cm/sec Med Peak E' Sumeet: 3.8 cm/sec MV A max sumeet: 135.4 cm/sec E/E' lat: 4.8 E/E' med: 14.0 MV E/A: 0.39 Ao V2 max: 103.1 cm/sec LV V1 max: 87.6 cm/sec PA V2 max: 107.0 cm/sec Ao max P.3 mmHg LV V1 max P.1 mmHg TR max sumeet: 279.7 cm/sec TR max P.3 mmHg Interpretation Summary Stage 1 diastolic dysfunction. Normal LV size. Left ventricular systolic function is normal. The estimated ejection fraction is 65 %. Pulmonary artery systolic pressure is 35 mmHg. Mild tricuspid valve insufficiency. Ordering Physician: Yuriy Browning Referring Physician: ALYSSA ISAAC Performed By: Gloria Berger RDCS
--- NOTE | 2017-08-25 19:52 | NURSING ---
After completing admission and handing off to overnight associate nurse it was noted that patients bedside glucose at 1347 was >500. No interventions found within patient chart. LISANDRO GonzalezN to recheck patients glucose at this time. Is aware that patient does not know her home medications or sliding scale for insulin.
[2017-08-25 20:00] LABS: Bedside Glucose 463 mg/dL (70-110)
[2017-08-25] MEDS: Insulin Lispro 100 UNIT/ML INSULN.PEN SC (21:04)
[2017-08-25] MEDS: Metoprolol Tartrate 25 MG Tablet PO (21:05)
[2017-08-25] MEDS: hydrALAZINE 50 MG Tablet PO (21:05)
[2017-08-25] MEDS: Atorvastatin Calcium 40 MG Tablet PO (21:06)
[2017-08-25 21:16] LABS: Bedside Glucose > 500 mg/dL (70-110)
[2017-08-26] VITALS (20 sets, daily range): BP systolic 150–201; BP diastolic 82–106; PULSE 67–94; RESP 15–26; TEMP 36.1–36.7; O2SAT 89–97; BMI 27.2
[2017-08-26] MEDS: hydrALAZINE 50 MG Tablet PO ×3 (05:00→20:59)
[2017-08-26] MEDS: Levothyroxine 88 MCG Tablet PO (05:00)
--- NOTE | 2017-08-26 05:55 | CT_ITS ---
STUDY: CT BRAIN WITHOUT CONTRAST REASON FOR EXAM: Female, 81 years old. Expressive aphasia. RADIATION DOSAGE (If Supplied By Facility): CTDIvol = ( 60.81 ) mGy, DLP = ( 998.67 ) mGycm TECHNIQUE: Transaxial CT imaging of the brain was performed without administration of intravenous contrast material. Individualized dose optimization techniques were used for this CT. COMPARISON: CT scan brain 08/25/2017. 03/04/2016. FINDINGS: Normal soft tissue structures. Normal calvarium. There is moderate cerebral atrophy with widening of the extra-axial spaces and ventricular dilatation. There are areas of decreased attenuation within the white matter tracts of the supratentorial brain, consistent with microvascular disease changes. Normal basal ganglia and thalami. Normal brainstem. There is mild cerebellar atrophy. There is a small old infarction of the right cerebellar hemisphere. There is atherosclerotic calcification of the vertebral and cavernous carotid arteries. There is no intracranial hemorrhage. There are no findings of an acute ischemic infarction. There is mild mucoperiosteal thickening in the right sphenoid sinus, consistent with chronic disease. There is no evidence for acute sinusitis. CT/Brain/Head without Contrast IMPRESSION: Chronic involutional changes of the brain. Small, old right cerebellar infarction. No demonstrated acute intracranial process. Electronically Signed: Kalyan Germain MD at 7:12 EDT , Service support ,
--- NOTE | 2017-08-26 08:26 | NURSING ---
echo in progress
[2017-08-26 08:34] LABS: Cholesterol 120 mg/dL (200); High Density Lipoprotein 37 mg/dL; Triglycerides 337 mg/dL; Very Low Density Lipoprotein 67 mg/dL (5-40)
[2017-08-26] MEDS: Insulin Lispro 100 UNIT/ML INSULN.PEN SC (09:16)
--- NOTE | 2017-08-26 09:16 | PCM.PN.HOSP ---
Patient Problems: Active and Suspected Problems (Last Reviewed 08/25/17 @ 17:39 by Yuriy Browning DO) CVA (cerebral vascular accident) (Acute) Subjective: Patient is a 81 year old lady with past medical history significant for hypertension, diabetes mellitus type 2, dyslipidemia, was brought to the emergency department on account of patient having difficulty finding words and not acting right according to the . There was a high suspicion of possible acute ischemic stroke admitted to monitored bed for subsequent management. NIH on admission was assessed to be 2. An MRI could not be performed in view of patient having pain pump. Objective: GENERAL: cooperative and in no apparent distress. HEENT: Clear conjunctiva, moist oral mucosa NECK; supple, normal thyroid, no distended JVD. CHEST: Clear to auscultation bilaterally, HEART: Regular S1 S2, no audible murmurs ABDOMEN: soft, non-tender, normoactive bowel sounds, RECTAL: deferred EXTREMITIES: No edema, no clubbing, no cyanosis. CONSTRUCTION SECRETARY: Awake; no lateralizing signs with receptive and expressive aphasia SKIN: No Rash Vitals/I&O's: Vital Signs Temp Pulse Resp BP Pulse Ox 97.8 F 67 15 150/82 H 95 08/26/17 02:15 08/26/17 05:00 08/26/17 02:15 08/26/17 02:15 08/26/17 02:15 Oxygen Delivery Method Room Air Weight: 69.7 kg Body Mass Index (BMI) 27.2 Intake and Output for Last 24 Hours 08/24/17 08/25/17 08/26/17 23:59 23:59 23:59 Intake Total 180 / 180 Balance 180 / 180 Laboratory Results 08/25/17 19:55: POC Glucose 463 H* 08/25/17 21:04: POC Glucose > 500 H* 08/26/17 06:40: POC Glucose Pending 08/26/17 07:15: Triglycerides 337 H, Cholesterol 120, LDL Cholesterol 16, VLDL Cholesterol 67 H, HDL Cholesterol 37 L 08/26/17 07:15: Sodium Pending, Potassium Pending, Chloride Pending, Carbon Dioxide Pending, Anion Gap Pending, BUN Pending, Creatinine Pending, Est GFR (MDRD) Af Amer Pending, Est GFR (MDRD) Non-Af Pending, BUN/Creatinine Ratio Pending, Glucose Pending, Calcium Pending, Magnesium Pending Current Medications Acetaminophen (Tylenol) 650 mg PO Q6H PRN PRN PRN Reason: Mild Pain (1-3)/Temp > 100.7 F Aspirin (Ecotrin) 81 mg PO DAILY@0800 [facility] Atorvastatin Calcium (Lipitor) 40 mg PO QHS [facility] Last Admin: 08/25/17 21:06 Dose: 40 mg Cholecalciferol (Vitamin D) 2,000 unit PO DAILY [facility] Dextrose (D50w Syringe) 0 gm IV X1 PRN; Protocol PRN Reason: Hypoglycemia Enoxaparin Sodium (Lovenox) 30 mg SC DAILY@1000 [facility] Glucagon () 1 mg IM .X1 PRN PRN Reason: Hypoglycemia Hydralazine HCl (Apresoline) 50 mg PO TID [facility] Last Admin: 08/26/17 05:00 Dose: 50 mg Insulin Glargine (Lantus (Bkc)) 30 units SC BREAKFAST [facility] Insulin Glargine (Lantus (Bkc)) 30 units SC DINNER [facility] Insulin Human Lispro (Humalog Kwikpen (Bkc)) 0 unit SC ACHS [facility] PRN Reason: Protocol Last Admin: 08/25/17 21:04 Dose: 11 u Insulin Human Lispro (Humalog Kwikpen (Bkc)) 10 unit SQ BREAKFAST [facility] Insulin Human Lispro (Humalog Kwikpen (Bkc)) 10 unit SQ DINNER [facility] Insulin Human Lispro (Humalog Kwikpen (Bkc)) 10 unit SQ LUNCH [facility] Isosorbide Mononitrate (Imdur) 30 mg PO DAILY [facility] Levothyroxine Sodium (Synthroid) 88 mcg PO DAILY@0600 [facility] Last Admin: 08/26/17 05:00 Dose: 88 mcg Lisinopril (Zestril) 20 mg PO DAILY [facility] Magnesium Hydroxide (Milk Of Magnesia) 30 ml PO DAILY PRN PRN Reason: Constipation Metoprolol Tartrate (Lopressor (Beta Pancho)) 25 mg PO BID [facility] Last Admin: 08/25/17 21:05 Dose: 25 mg Ondansetron HCl (Zofran) 4 mg IV Q8H PRN PRN PRN Reason: NAUSEA Pantoprazole Sodium (Protonix) 40 mg PO DAILY [facility] Sodium Chloride () 5 - 30 ml IV UD PRN PRN Reason: SALINE FLUSH Tolterodine Tartrate (Detrol La) 2 mg PO DAILY JU[facility] ALBERTO Medical Necessity - Tobacco Use Smoking Status: Never smoker Tobacco Use: Non-smoker Assessment/Plan All Active Problems (Last Reviewed 08/25/17 @ 17:39 by Yuriy Browning DO) CVA (cerebral vascular accident) (Acute) History of knee replacement (Resolved) Hx of tonsillectomy (Resolved) Hx of cholecystectomy (Resolved) H/O: hysterectomy (Resolved) History of lumbar surgery (Resolved) Diarrhea (Acute) Abdominal pain (Acute) Lactic acidosis (Acute) Dehydration (Acute) Hyperkalemia (Resolved) Third nerve palsy (Resolved) Patient is a 81 year old lady with past medical history significant for hypertension, diabetes mellitus type 2, dyslipidemia, was brought to the emergency department on account of patient having difficulty finding words and not acting right according to the . There was a high suspicion of possible acute ischemic stroke admitted to monitored bed for subsequent management. NIH on admission was assessed to be 2. An MRI could not be performed in view of patient having pain pump. 1. Suspected acute ischemic stroke. Patient has been admitted to monitored bed where she is currently undergoing evaluation including every 4 neuro checks, repeat CT, 2D echo, patient has been managed per protocol with antiplatelets, statin therapy, with consultation placed to neurology 2. 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 Did adjust patient regimen adding scheduled long-acting and pre-meal insulin in addition to sliding scale correction factor 3. Chronic kidney disease stage III patient kidney function appears to be at baseline 4. Hypertension-blood pressure controlled, home medications continued with dose adjustment as needed 5. Dyslipidemia-patient is on statin therapy, continued at home dose 7. Hypothyroidism-patient is on levothyroxine home dose continued 8. DVT prophylaxis SC Lovenox; dose adjusted for kidney function Clinical Impression(s) from Imaging Studies Brain CT 08/25/17 13:54 IMPRESSION: Chronic involutional changes of the brain. Mucosal thickening of the posterior aspect of the right sphenoid sinus. Electronically Signed: Sai Calhoun MD at 14:21 EDT Tel [phone], Service support , Brain CT 08/26/17 05:55 IMPRESSION: Chronic involutional changes of the brain. Small, old right cerebellar infarction. No demonstrated acute intracranial process. Electronically Signed: Kalyan Germain MD at 7:12 EDT , Service support , Active Medications Acetaminophen (Tylenol) 650 mg PO Q6H PRN PRN PRN Reason: Mild Pain (1-3)/Temp > 100.7 F Aspirin (Ecotrin) 81 mg PO DAILY@0800 [facility] Atorvastatin Calcium (Lipitor) 40 mg PO QHS [facility] Last Admin: 08/25/17 21:06 Dose: 40 mg Cholecalciferol (Vitamin D) 2,000 unit PO DAILY [facility] Dextrose (D50w Syringe) 0 gm IV X1 PRN; Protocol PRN Reason: Hypoglycemia Enoxaparin Sodium (Lovenox) 30 mg SC DAILY@1000 [facility] Glucagon () 1 mg IM .X1 PRN PRN Reason: Hypoglycemia Hydralazine HCl (Apresoline) 50 mg PO TID [facility] Last Admin: 08/26/17 05:00 Dose: 50 mg Insulin Glargine (Lantus (Bkc)) 30 units SC BREAKFAST [facility] Insulin Glargine (Lantus (Bkc)) 30 units SC DINNER [facility] Insulin Human Lispro (Humalog Kwikpen (Bkc)) 0 unit SC ACHS [facility] PRN Reason: Protocol Last Admin: 08/25/17 21:04 Dose: 11 u Insulin Human Lispro (Humalog Kwikpen (Bkc)) 10 unit SQ BREAKFAST [facility] Insulin Human Lispro (Humalog Kwikpen (Bkc)) 10 unit SQ DINNER [facility] Insulin Human Lispro (Humalog Kwikpen (Bkc)) 10 unit SQ LUNCH [facility] Isosorbide Mononitrate (Imdur) 30 mg PO DAILY [facility] Levothyroxine Sodium (Synthroid) 88 mcg PO DAILY@0600 [facility] Last Admin: 08/26/17 05:00 Dose: 88 mcg Lisinopril (Zestril) 20 mg PO DAILY [facility] Magnesium Hydroxide (Milk Of Magnesia) 30 ml PO DAILY PRN PRN Reason: Constipation Metoprolol Tartrate (Lopressor (Beta Pancho)) 25 mg PO BID [facility] Last Admin: 08/25/17 21:05 Dose: 25 mg Ondansetron HCl (Zofran) 4 mg IV Q8H PRN PRN PRN Reason: NAUSEA Pantoprazole Sodium (Protonix) 40 mg PO DAILY [facility] Sodium Chloride () 5 - 30 ml IV UD PRN PRN Reason: SALINE FLUSH Tolterodine Tartrate (Detrol La) 2 mg PO DAILY [facility] Code Visit Inpatient E&M: 22067 Subs Hosp L3
[2017-08-26] MEDS: Insulin Lispro 100 UNIT/ML INSULN.PEN 10 UNIT SQ (09:17)
--- NOTE | 2017-08-26 09:19 | PN_ITS ---
Patient Problems: Active and Suspected Problems (Last Reviewed 08/25/17 @ 17:39 by Yuriy Browning DO) CVA (cerebral vascular accident) (Acute) Subjective: Patient is a 81 year old lady with past medical history significant for hypertension, diabetes mellitus type 2, dyslipidemia, was brought to the emergency department on account of patient having difficulty finding words and not acting right according to the . There was a high suspicion of possible acute ischemic stroke admitted to monitored bed for subsequent management. NIH on admission was assessed to be 2. An MRI could not be performed in view of patient having pain pump. Objective: GENERAL: cooperative and in no apparent distress. HEENT: Clear conjunctiva, moist oral mucosa NECK; supple, normal thyroid, no distended JVD. CHEST: Clear to auscultation bilaterally, HEART: Regular S1 S2, no audible murmurs ABDOMEN: soft, non-tender, normoactive bowel sounds, RECTAL: deferred EXTREMITIES: No edema, no clubbing, no cyanosis. GLOBAL MANAGER: Awake; no lateralizing signs with receptive and expressive aphasia SKIN: No Rash Vitals/I&O's: Vital Signs Temp Pulse Resp BP Pulse Ox 97.8 F 67 15 150/82 H 95 08/26/17 02:15 08/26/17 05:00 08/26/17 02:15 08/26/17 02:15 08/26/17 02:15 Oxygen Delivery Method Room Air Weight: 69.7 kg Body Mass Index (BMI) 27.2 Intake and Output for Last 24 Hours 08/24/17 08/25/17 08/26/17 23:59 23:59 23:59 Intake Total 180 / 180 Balance 180 / 180 Laboratory Results 08/25/17 19:55: POC Glucose 463 H* 08/25/17 21:04: POC Glucose > 500 H* 08/26/17 06:40: POC Glucose Pending 08/26/17 07:15: Triglycerides 337 H, Cholesterol 120, LDL Cholesterol 16, VLDL Cholesterol 67 H, HDL Cholesterol 37 L 08/26/17 07:15: Sodium Pending, Potassium Pending, Chloride Pending, Carbon Dioxide Pending, Anion Gap Pending, BUN Pending, Creatinine Pending, Est GFR ( MDRD) Af Amer Pending, Est GFR (MDRD) Non-Af Pending, BUN/Creatinine Ratio Pending, Glucose Pending, Calcium Pending, Magnesium Pending Current Medications Acetaminophen (Tylenol) 650 mg PO Q6H PRN PRN PRN Reason: Mild Pain (1-3)/Temp > 100.7 F Aspirin (Ecotrin) 81 mg PO DAILY@0800 [facility] Atorvastatin Calcium (Lipitor) 40 mg PO QHS [facility] Last Admin: 08/25/17 21:06 Dose: 40 mg Cholecalciferol (Vitamin D) 2,000 unit PO DAILY [facility] Dextrose (D50w Syringe) 0 gm IV X1 PRN; Protocol PRN Reason: Hypoglycemia Enoxaparin Sodium (Lovenox) 30 mg SC DAILY@1000 [facility] Glucagon () 1 mg IM .X1 PRN PRN Reason: Hypoglycemia Hydralazine HCl (Apresoline) 50 mg PO TID [facility] Last Admin: 08/26/17 05:00 Dose: 50 mg Insulin Glargine (Lantus (Bkc)) 30 units SC BREAKFAST [facility] Insulin Glargine (Lantus (Bkc)) 30 units SC DINNER [facility] Insulin Human Lispro (Humalog Kwikpen (Bkc)) 0 unit SC ACHS [facility] PRN Reason: Protocol Last Admin: 08/25/17 21:04 Dose: 11 u Insulin Human Lispro (Humalog Kwikpen (Bkc)) 10 unit SQ BREAKFAST [facility] Insulin Human Lispro (Humalog Kwikpen (Bkc)) 10 unit SQ DINNER [facility] Insulin Human Lispro (Humalog Kwikpen (Bkc)) 10 unit SQ LUNCH [facility] Isosorbide Mononitrate (Imdur) 30 mg PO DAILY [facility] Levothyroxine Sodium (Synthroid) 88 mcg PO DAILY@0600 [facility] Last Admin: 08/26/17 05:00 Dose: 88 mcg Lisinopril (Zestril) 20 mg PO DAILY [facility] Magnesium Hydroxide (Milk Of Magnesia) 30 ml PO DAILY PRN PRN Reason: Constipation Metoprolol Tartrate (Lopressor (Beta Pancho)) 25 mg PO BID [facility] Last Admin: 08/25/17 21:05 Dose: 25 mg Ondansetron HCl (Zofran) 4 mg IV Q8H PRN PRN PRN Reason: NAUSEA Pantoprazole Sodium (Protonix) 40 mg PO DAILY [facility] Sodium Chloride () 5 - 30 ml IV UD PRN PRN Reason: SALINE FLUSH Tolterodine Tartrate (Detrol La) 2 mg PO DAILY [facility] Medical Necessity - Tobacco Use Smoking Status: Never smoker Tobacco Use: Non-smoker Assessment/Plan All Active Problems (Last Reviewed 08/25/17 @ 17:39 by Yuriy Browning DO) CVA (cerebral vascular accident) (Acute) History of knee replacement (Resolved) Hx of tonsillectomy (Resolved) Hx of cholecystectomy (Resolved) H/O: hysterectomy (Resolved) History of lumbar surgery (Resolved) Diarrhea (Acute) Abdominal pain (Acute) Lactic acidosis (Acute) Dehydration (Acute) Hyperkalemia (Resolved) Third nerve palsy (Resolved) Patient is a 81 year old lady with past medical history significant for hypertension, diabetes mellitus type 2, dyslipidemia, was brought to the emergency department on account of patient having difficulty finding words and not acting right according to the . There was a high suspicion of possible acute ischemic stroke admitted to monitored bed for subsequent management. NIH on admission was assessed to be 2. An MRI could not be performed in view of patient having pain pump. 1. Suspected acute ischemic stroke. Patient has been admitted to monitored bed where she is currently undergoing evaluation including every 4 neuro checks , repeat CT, 2D echo, patient has been managed per protocol with antiplatelets, statin therapy, with consultation placed to neurology 2. 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 Did adjust patient regimen adding scheduled long- acting and pre-meal insulin in addition to sliding scale correction factor 3. Chronic kidney disease stage III patient kidney function appears to be at baseline 4. Hypertension-blood pressure controlled, home medications continued with dose adjustment as needed 5. Dyslipidemia-patient is on statin therapy, continued at home dose 7. Hypothyroidism-patient is on levothyroxine home dose continued 8. DVT prophylaxis SC Lovenox; dose adjusted for kidney function Clinical Impression(s) from Imaging Studies Brain CT 08/25/17 13:54 IMPRESSION: Chronic involutional changes of the brain. Mucosal thickening of the posterior aspect of the right sphenoid sinus. Electronically Signed: Sai Calhoun MD at 14:21 EDT Tel [phone], Service support , Brain CT 08/26/17 05:55 IMPRESSION: Chronic involutional changes of the brain. Small, old right cerebellar infarction. No demonstrated acute intracranial process. Electronically Signed: Kalyan Germain MD at 7:12 EDT , Service support , Active Medications Acetaminophen (Tylenol) 650 mg PO Q6H PRN PRN PRN Reason: Mild Pain (1-3)/Temp > 100.7 F Aspirin (Ecotrin) 81 mg PO DAILY@0800 [facility] Atorvastatin Calcium (Lipitor) 40 mg PO QHS [facility] Last Admin: 08/25/17 21:06 Dose: 40 mg Cholecalciferol (Vitamin D) 2,000 unit PO DAILY [facility] Dextrose (D50w Syringe) 0 gm IV X1 PRN; Protocol PRN Reason: Hypoglycemia Enoxaparin Sodium (Lovenox) 30 mg SC DAILY@1000 [facility] Glucagon () 1 mg IM .X1 PRN PRN Reason: Hypoglycemia Hydralazine HCl (Apresoline) 50 mg PO TID [facility] Last Admin: 08/26/17 05:00 Dose: 50 mg Insulin Glargine (Lantus (Bkc)) 30 units SC BREAKFAST [facility] Insulin Glargine (Lantus (Bkc)) 30 units SC DINNER [facility] Insulin Human Lispro (Humalog Kwikpen (Bkc)) 0 unit SC ACHS [facility] PRN Reason: Protocol Last Admin: 08/25/17 21:04 Dose: 11 u Insulin Human Lispro (Humalog Kwikpen (Bkc)) 10 unit SQ BREAKFAST [facility] Insulin Human Lispro (Humalog Kwikpen (Bkc)) 10 unit SQ DINNER [facility] Insulin Human Lispro (Humalog Kwikpen (Bkc)) 10 unit SQ LUNCH [facility] Isosorbide Mononitrate (Imdur) 30 mg PO DAILY [facility] Levothyroxine Sodium (Synthroid) 88 mcg PO DAILY@0600 [facility] Last Admin: 08/26/17 05:00 Dose: 88 mcg Lisinopril (Zestril) 20 mg PO DAILY [facility] Magnesium Hydroxide (Milk Of Magnesia) 30 ml PO DAILY PRN PRN Reason: Constipation Metoprolol Tartrate (Lopressor (Beta Pancho)) 25 mg PO BID [facility] Last Admin: 08/25/17 21:05 Dose: 25 mg Ondansetron HCl (Zofran) 4 mg IV Q8H PRN PRN PRN Reason: NAUSEA Pantoprazole Sodium (Protonix) 40 mg PO DAILY [facility] Sodium Chloride () 5 - 30 ml IV UD PRN PRN Reason: SALINE FLUSH Tolterodine Tartrate (Detrol La) 2 mg PO DAILY [facility] Code Visit Inpatient E&M: 59552 Subs Hosp L3
[2017-08-26] MEDS: Tolterodine Tartrate 2 MG CAP.SA PO (09:24)
[2017-08-26] MEDS: Aspirin E.C. 81 MG Tablet PO (09:24)
[2017-08-26] MEDS: Isosorbide Mononitrate 30 MG Tablet PO (09:24)
[2017-08-26] MEDS: Metoprolol Tartrate 25 MG Tablet PO ×2 (09:25→20:59)
[2017-08-26] MEDS: Lisinopril 20 MG Tablet PO (09:28)
[2017-08-26] MEDS: Enoxaparin 30 MG/0.3 ML Syringe SC (09:28)
[2017-08-26] MEDS: Pantoprazole Sodium 40 MG Tablet PO (09:28)
[2017-08-26 09:36] LABS: Bedside Glucose > 500 mg/dL (70-110)
[2017-08-26 09:58] LABS: Anion Gap 13 (5-15); BUN 26 mg/dL (7-18); BUN/Creat Ratio 18.1 RATIO (10-20); Calcium,Total 9.1 mg/dL (8.5-10.1); Chloride 99 mmol/L (98-107); Creatinine, Serum 1.44 mg/dL (0.55-1.02); EST Glomerular Filtration Rate 37 mL/min (>60); Est Glom Filt Rate - Afr Amer 45 mL/min (>60); Estimated Creatinine Clearance 26.21 ml/min; Glucose 486 mg/dL (74-106); Magnesium 1.2 mg/dL (1.6-2.6); Potassium 3.9 mmol/L (3.5-5.1); Sodium Level 134 mmol/L (136-145)
--- NOTE | 2017-08-26 11:51 | CT_ITS ---
STUDY: CT BRAIN WITHOUT CONTRAST REASON FOR EXAM: Female, 81 years old. Confusion. RADIATION DOSAGE (If Supplied By Facility): CTDIvol = ( 44.99 ) mGy, DLP = ( 745.49 ) mGycm TECHNIQUE: Transaxial CT imaging of the brain was performed without administration of intravenous contrast material. Individualized dose optimization techniques were used for this CT. COMPARISON: Comparison is made with prior study dated August 26, 2017. FINDINGS: Normal soft tissue structures. Normal calvarium. There is moderate cerebral atrophy with widening of the extra-axial spaces and ventricular dilatation. There are areas of decreased attenuation within the white matter tracts of the supratentorial brain, consistent with microvascular disease changes. Normal basal ganglia and thalami. Normal brainstem. There is mild cerebellar atrophy. Stable focal area of decreased attenuation in the posterior medial aspect of the right cerebellar hemisphere. There is no intracranial hemorrhage. There are no findings of an acute ischemic infarction. Atherosclerotic calcification of the vertebral arteries and cavernous portions of the internal carotid arteries bilaterally. Stable mucosal thickening of the right sphenoid sinus. CT/Brain/Head without Contrast IMPRESSION: Chronic involutional changes of the brain. There has been no change since prior study. Electronically Signed: Sai Calhoun MD at 12:14 EDT Tel [phone], Service support ,
[2017-08-26 11:55] LABS: Bedside Glucose > 500 mg/dL (70-110)
--- NOTE | 2017-08-26 11:55 | CASEMGMT ---
This RN CM to room to complete CM assessment and per Sara RN, pt is going down for a stat head CT at this time. Will attempt again later. SStaten RN CM
--- NOTE | 2017-08-26 12:15 | NURSING ---
change in neuro status. [facility] 5, accucheck 501. Dr. Austin notified. orders recd. to radiology for stat Head CT. Dr. Martinez paged. at bedside, update given.
--- NOTE | 2017-08-26 13:21 | PCM.CONS.GEN ---
Problem List (1) Aphasia Status: Acute Reason for Consult Date of Consultation: 08/26/17 Reason for Consultation: aphasia History of Present Illness: The patient is a 81 year old CF with PMH HTN, HLD, DM, H/O TIA, CAD s/p CABG, FRANKLIN, H/O renal cancer, CKD, H/O Pain pump implantation admitted with speech disturbances. History is obtained from medical records and patient. Per documentation her speech disturbances with word finding difficulty started yesterday morning (08/25/17), had expressive aphasia, denies any focal motor weakness, on admission NIHSS was 0 per ED documentation but did have aphasia on admission, was not a tpa candidate as was out of window, CT head done on admission was reported nothing acute, had a repeat CT head early this morning which did not show anything acute, I saw the patient at around 10:30 am this morning (08/27/17) when patient had mild expressive aphasia with right sided LE drift and weakness with NIHSS 3, denied any DELGADILLO, visual disturbances, fever, chest pain, per patient she lives with her , denied using cane or walker to ambulate, denied any frequent falls, and per patient did not need any assistance for her ADLs, but later after about an hour I was informed by the nurse that there was worsening in the mental status, for which patient had repeat CT head at 11:51 am which again did not show anything acute. Labs on admission: WBC-12.3, Na 133, creatinine 1.66-->1.44, glucose 548, TG-337, LDL-16 Past Medical History Past Medical History (Chronic Problems): Chronic Problems (Last Reviewed 08/25/17 @ 17:39 by Yuriy Browning DO) Chronic renal failure, stage 3 (moderate) (Chronic) Hyperlipidemia (Chronic) Other longterm (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 (Chronic) TIA (transient ischemic attack) (Chronic) Angina pectoris (Chronic) Obstructive sleep apnea (Chronic) 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) CABG X 3, SOTO to LAD, SVG to 1st diagonal & SVG to obtuse marginal @ [facility] 04/08/16 Postlaminectomy syndrome of lumbar region (Chronic) Disc degeneration, lumbosacral (Chronic) Lumbosacral radiculopathy (Chronic) Diabetes mellitus, type 2 (Chronic) Hypertension (Chronic) History of stroke (Chronic) Fibromyalgia (Chronic) GERD (Chronic) Hypothyroidism (Chronic) Renal cancer (Chronic) CAD (coronary artery disease) (Chronic) CABG X 3, SOTO to LAD, SVG to 1st diagonal & SVG to obtuse marginal @ [facility] 04/08/16 Medical History: Medical History (Last Reviewed 08/25/17 @ 17:39 by Yuriy Browning DO) Hyperlipidemia (Chronic) E78.5 Obstructive sleep apnea (Chronic) G47.33 Diabetes mellitus, type 2 (Chronic) E11.9 Hypertension (Chronic) I10 History of stroke (Chronic) Z86.73 CAD (coronary artery disease) (Chronic) I25.10 CABG X 3, SOTO to LAD, SVG to 1st diagonal & SVG to obtuse marginal @ [facility] 04/08/16 Chest pain R07.9 Dyspnea on exertion R06.09 Edema R60.9 Fatigue R53.83 Shortness of breath R06.02 Allergies latex Allergy (Verified 07/29/17 14:47) Rash adhesive tape Adverse Reaction (Verified 07/29/17 14:47) Rash Home Medications: Ambulatory Orders Medication Instructions Recorded Aspirin E.C. [Ecotrin] 81 mg PO DAILY@0800 #30 tab 04/24/16 Gabapentin [Neurontin] 300 mg PO BID 05/09/16 Lansoprazole [Prevacid] 30 mg PO DAILY 05/09/16 cholecalciferol (vitamin D3) 1,000 1,000 unit PO QDAY tab 04/21/17 unit tablet hydralazine 50 mg tablet 50 mg PO TID 90 Days #270 04/22/17 lisinopril 20 mg tablet 20 mg PO DAILY 90 Days #90 04/22/17 Levothyroxine [Synthroid] 88 mcg PO DAILY 04/25/17 atorvastatin 40 mg tablet 40 mg PO DAILY #90 tab 06/30/17 metoprolol tartrate 25 mg tablet 25 mg PO BID #180 tab 08/04/17 Insulin Glargine [Lantus SoloStar See Protocol NM 08/25/17 Pen] Insulin Lispro [Humalog KwikPen] See Protocol NM 08/25/17 Isosorbide Mononitrate [Isosorbide 30 mg PO DAILY 08/25/17 Mononitrate ER] Metformin(XR) [Glucophage Xr] 1,000 mg PO BID 08/25/17 Oxybutynin Chloride [Ditropan Xl] 10 mg PO DAILY 08/25/17 morphine SR tablet [MS Contin] 15 mg PO DAILY 08/25/17 Surgical History: Surgical History (Last Reviewed 08/25/17 @ 17:39 by Yuriy Browning DO) History of knee replacement (Resolved) Z96.659 Hx of tonsillectomy (Resolved) Z90.89 Hx of cholecystectomy (Resolved) Z90.49 H/O: hysterectomy (Resolved) Z90.710 History of lumbar surgery (Resolved) Z98.890 linda and screws 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) Z95.1 CABG X 3, SOTO to LAD, SVG to 1st diagonal & SVG to obtuse marginal @ [facility] 04/08/16 Surgical History: appendectomy, cholecystectomy, herniorrhaphy, hysterectomy, total knee arthroplasty, tonsillectomy, - - cryotherapy for kidney tumor Psychiatric History: No 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 ASSISTANT 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: No pertinent 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 PHYSICIAN ASSISTANT history Lives: Spouse/ Significant Other Smoking Status: Never smoker Tobacco Use: Non-smoker Alcohol: None Drugs: None - *Family History Maternal Family History: Family History (Last Reviewed 08/25/17 @ 17:39 by Yuriy Browning DO) Father Heart disease History Items: Diabetes, Heart Disease - age 95 Paternal Family History: Family History (Last Reviewed 08/25/17 @ 17:39 by Yuriy Browning DO) Father Heart disease History Items: Heart Disease - age 69 Review of Systems Constitutional: Reports: - - complete ROS negative except as documented in HPI Patient Problems: Active and Suspected Problems (Last Reviewed 08/25/17 @ 17:39 by Yuriy Browning DO) CVA (cerebral vascular accident) (Acute) Aphasia (Acute) - Physical Exam General: Alert HEENT: Normocephalic Neck: Supple Lungs: Clear to auscultation Cardiovascular: Normal S1, Normal S2 Abdomen: Bowel Sounds Present Extremities: No cyanosis Musculoskeletal: No Tenderness to Palpation of Joints or Extremities Neurological: - - consious, alert, AoAx3, CN 2-12 grossly intact, power 5/5 bothe UE, ? drift right LE with +4/5 power, denies any sensory loss, no cerebellar signs, Reflexes + B/L B/S/T/K/A, gait deferred, mild expressive aphasia NIHSS 3, mRS 0 Psych/Mental Status: Normal Affect Vital Signs Temp Pulse Resp BP Pulse Ox 97.6 F L 76 22 H 193/93 H 89 08/26/17 12:00 08/26/17 12:00 08/26/17 12:00 08/26/17 12:00 08/26/17 12:00 Oxygen Delivery Method Room Air Weight: 69.7 kg Body Mass Index (BMI) 27.2 Intake and Output for Last 24 Hours 08/24/17 08/25/17 08/26/17 23:59 23:59 23:59 Intake Total 300 / 300 Balance 300 / 300 Laboratory Tests Past 24 Hrs 08/26/17 08/26/17 07:15 07:15 Sodium 134 L Potassium 3.9 Chloride 99 Carbon Dioxide 22.0 Anion Gap 13 BUN 26 H Creatinine 1.44 H Estim Creat Clear Calc 26.21 Est GFR (MDRD) Af Amer 45 L Est GFR (MDRD) Non-Af 37 L BUN/Creatinine Ratio 18.1 Glucose 486 H* Calcium 9.1 Magnesium 1.2 L Triglycerides 337 H Cholesterol 120 LDL Cholesterol 16 VLDL Cholesterol 67 H HDL Cholesterol 37 L POC Glucose 08/26/17 08/26/17 08/25/17 11:33 09:14 21:04 POC Glucose > 500 H* > 500 H* > 500 H* 08/25/17 19:55 POC Glucose 463 H* Assessment/Plan All Active Problems (Last Reviewed 08/25/17 @ 17:39 by Yuriy Browning DO) CVA (cerebral vascular accident) (Acute) Aphasia (Acute) History of knee replacement (Resolved) Hx of tonsillectomy (Resolved) Hx of cholecystectomy (Resolved) H/O: hysterectomy (Resolved) History of lumbar surgery (Resolved) Diarrhea (Acute) Abdominal pain (Acute) Lactic acidosis (Acute) Dehydration (Acute) Hyperkalemia (Resolved) Third nerve palsy (Resolved) The patient is a 81 year old CF with PMH HTN, HLD, DM, H/O TIA, CAD s/p CABG, FRANKLIN, H/O renal cancer, CKD admitted with speech disturbances. History is obtained from medical records and patient. Per documentation her speech disturbances with word finding difficulty started yesterday morning (08/25/17), had expressive aphasia, denies any focal motor weakness, on admission NIHSS was 0 per ED documentation but did have aphasia on admission, was not a tpa candidate as was out of window, CT head done on admission was reported nothing acute, had a repeat CT head early this morning which did not show anything acute, I saw the patient at around 10:30 am this morning (08/26/17) when patient had mild expressive aphasia with right sided LE drift and weakness with NIHSS 3, denied any DELGADILLO, visual disturbances, fever, chest pain, per patient she lives with her , denied using cane or walker to ambulate, denied any frequent falls, and per patient did not need any assistance for her ADLs, but later after about an hour I was informed by the nurse that there was worsening in the mental status, for which patient had repeat CT head at 11:51 am which again did not show anything acute. Labs on admission: WBC-12.3, Na 133, creatinine 1.66-->1.44, glucose 548, TG-337, LDL-16 Impression R/O Stroke Metabolic encephalopathy Uncontrolled HTN Plan -CT head reviewed- no stroke in [address] head since admission (on admission 08/25/17-13:54 pm, this morning at 5:55 am and 11.:51 am) -check CTA head/neck -Cannot get MRI brain due to pain pump implantation per documentation -Check TTE, Hba1c -LDL-16 -On ASA 81 mg PO once daily, Plavix 75 mg PO once daily, dual AP for 3 weeks, bleeding risk discussed -On Lipitor 40 mg PO q hs -Check UA, ammonia level -Further medical management per primary team -Better BP control, after vessel imaging results available. -Stroke risk factors discussed in detail and stroke education provided -Recommend 30 day event recorder -Frequent neuro checks -GI/DVT prophylaxis -PT/OT -Fall precautions -Further medical management per primary team -Please follow up with Neurology as outpatient in about 2-3 weeks -Please call with questions if any -Thank you for allowing us to participate in patient's care and management I spent 60 minutes taking history, doing physical examination, reviewing medical records, coordinating care and counseling the patient. Code Visit Inpatient E&M: 25790 Init Hosp L3
--- NOTE | 2017-08-26 13:32 | CON.PCM_ITS ---
Problem List (1) Aphasia Status: Acute Reason for Consult Date of Consultation: 08/26/17 Reason for Consultation: aphasia History of Present Illness: The patient is a 81 year old CF with PMH HTN, HLD, DM, H/O TIA, CAD s/p CABG, FRANKLIN, H/O renal cancer, CKD, H/O Pain pump implantation admitted with speech disturbances. History is obtained from medical records and patient. Per documentation her speech disturbances with word finding difficulty started yesterday morning (08/25/17), had expressive aphasia, denies any focal motor weakness, on admission NIHSS was 0 per ED documentation but did have aphasia on admission, was not a tpa candidate as was out of window, CT head done on admission was reported nothing acute, had a repeat CT head early this morning which did not show anything acute, I saw the patient at around 10:30 am this morning (08/27/17) when patient had mild expressive aphasia with right sided LE drift and weakness with NIHSS 3, denied any [place], visual disturbances, fever, chest pain, per patient she lives with her , denied using cane or walker to ambulate, denied any frequent falls, and per patient did not need any assistance for her ADLs, but later after about an hour I was informed by the nurse that there was worsening in the mental status, for which patient had repeat CT head at 11:51 am which again did not show anything acute. Labs on admission: WBC-12.3, Na 133, creatinine 1.66-->1.44, glucose 548, TG-337, LDL-16 Past Medical History Past Medical History (Chronic Problems): Chronic Problems (Last Reviewed 08/25/17 @ 17:39 by Yuriy Browning DO) Chronic renal failure, stage 3 (moderate) (Chronic) Hyperlipidemia (Chronic) Other nursing home (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 (Chronic) TIA (transient ischemic attack) (Chronic) Angina pectoris (Chronic) Obstructive sleep apnea (Chronic) 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) CABG X 3, SOTO to LAD, SVG to 1st diagonal & SVG to obtuse marginal @ summa Postlaminectomy syndrome of lumbar region (Chronic) Disc degeneration, lumbosacral (Chronic) Lumbosacral radiculopathy (Chronic) Diabetes mellitus, type 2 (Chronic) Hypertension (Chronic) History of stroke (Chronic) Fibromyalgia (Chronic) GERD (Chronic) Hypothyroidism (Chronic) Renal cancer (Chronic) CAD (coronary artery disease) (Chronic) CABG X 3, SOTO to LAD, SVG to 1st diagonal & SVG to obtuse marginal @ summa Medical History: Medical History (Last Reviewed 08/25/17 @ 17:39 by Yuriy Browning DO) Hyperlipidemia (Chronic) E78.5 Obstructive sleep apnea (Chronic) G47.33 Diabetes mellitus, type 2 (Chronic) E11.9 Hypertension (Chronic) I10 History of stroke (Chronic) Z86.73 CAD (coronary artery disease) (Chronic) I25.10 CABG X 3, SOTO to LAD, SVG to 1st diagonal & SVG to obtuse marginal @ summa Chest pain R07.9 Dyspnea on exertion R06.09 Edema R60.9 Fatigue R53.83 Shortness of breath R06.02 Allergies latex Allergy (Verified 07/29/17 14:47) Rash adhesive tape Adverse Reaction (Verified 07/29/17 14:47) Rash Home Medications: Ambulatory Orders Medication Instructions Recorded Aspirin E.C. [Ecotrin] 81 mg PO DAILY@0800 #30 tab 04/24/16 Gabapentin [Neurontin] 300 mg PO BID 05/09/16 Lansoprazole [Prevacid] 30 mg PO DAILY 05/09/16 cholecalciferol (vitamin D3) 1,000 1,000 unit PO QDAY tab 04/21/17 unit tablet hydralazine 50 mg tablet 50 mg PO TID 90 Days #270 04/22/17 lisinopril 20 mg tablet 20 mg PO DAILY 90 Days #90 04/22/17 Levothyroxine [Synthroid] 88 mcg PO DAILY 04/25/17 atorvastatin 40 mg tablet 40 mg PO DAILY #90 tab 06/30/17 metoprolol tartrate 25 mg tablet 25 mg PO BID #180 tab 08/04/17 Insulin Glargine [Lantus SoloStar See Protocol CA 08/25/17 Pen] Insulin Lispro [Humalog KwikPen] See Protocol CA 08/25/17 Isosorbide Mononitrate [Isosorbide 30 mg PO DAILY 08/25/17 Mononitrate ER] Metformin(XR) [Glucophage Xr] 1,000 mg PO BID 08/25/17 Oxybutynin Chloride [Ditropan Xl] 10 mg PO DAILY 08/25/17 morphine SR tablet [MS Contin] 15 mg PO DAILY 08/25/17 Surgical History: Surgical History (Last Reviewed 08/25/17 @ 17:39 by Yuriy Browning DO) History of knee replacement (Resolved) Z96.659 Hx of tonsillectomy (Resolved) Z90.89 Hx of cholecystectomy (Resolved) Z90.49 H/O: hysterectomy (Resolved) Z90.710 History of lumbar surgery (Resolved) Z98.890 linda and screws 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) Z95.1 CABG X 3, SOTO to LAD, SVG to 1st diagonal & SVG to obtuse marginal @ [facility] Surgical History: appendectomy, cholecystectomy, herniorrhaphy, hysterectomy, total knee arthroplasty, tonsillectomy, - - cryotherapy for kidney tumor Psychiatric History: No 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: No pertinent DIRECTOR D[employer] SERVICES history Lives: Spouse/ Significant Other Smoking Status: Never smoker Tobacco Use: Non-smoker Alcohol: None Drugs: None - *Family History Maternal Family History: Family History (Last Reviewed 08/25/17 @ 17:39 by Yuriy Browning DO) Father Heart disease History Items: Diabetes, Heart Disease - age 95 Paternal Family History: Family History (Last Reviewed 08/25/17 @ 17:39 by Yuriy Browning DO) Father Heart disease History Items: Heart Disease - age 69 Review of Systems Constitutional: Reports: - - complete ROS negative except as documented in HPI Patient Problems: Active and Suspected Problems (Last Reviewed 08/25/17 @ 17:39 by Yuriy Browning DO) CVA (cerebral vascular accident) (Acute) Aphasia (Acute) - Physical Exam General: Alert HEENT: Normocephalic Neck: Supple Lungs: Clear to auscultation Cardiovascular: Normal S1, Normal S2 Abdomen: Bowel Sounds Present Extremities: No cyanosis Musculoskeletal: No Tenderness to Palpation of Joints or Extremities Neurological: - - consious, alert, AoAx3, CN 2-12 grossly intact, power 5/5 bothe UE, ? drift right LE with +4/5 power, denies any sensory loss, no cerebellar signs, Reflexes + B/L B/S/T/K/A, gait deferred, mild expressive aphasia NIHSS 3, mRS 0 Psych/Mental Status: Normal Affect Vital Signs Temp Pulse Resp BP Pulse Ox 97.6 F L 76 22 H 193/93 H 89 08/26/17 12:00 08/26/17 12:00 08/26/17 12:00 08/26/17 12:00 08/26/17 12:00 Oxygen Delivery Method Room Air Weight: 69.7 kg Body Mass Index (BMI) 27.2 Intake and Output for Last 24 Hours 08/24/17 08/25/17 08/26/17 23:59 23:59 23:59 Intake Total 300 / 300 Balance 300 / 300 Laboratory Tests Past 24 Hrs 08/26/17 08/26/17 07:15 07:15 Sodium 134 L Potassium 3.9 Chloride 99 Carbon Dioxide 22.0 Anion Gap 13 BUN 26 H Creatinine 1.44 H Estim Creat Clear Calc 26.21 Est GFR (MDRD) Af Amer 45 L Est GFR (MDRD) Non-Af 37 L BUN/Creatinine Ratio 18.1 Glucose 486 H* Calcium 9.1 Magnesium 1.2 L Triglycerides 337 H Cholesterol 120 LDL Cholesterol 16 VLDL Cholesterol 67 H HDL Cholesterol 37 L POC Glucose 08/26/17 08/26/17 08/25/17 11:33 09:14 21:04 POC Glucose > 500 H* > 500 H* > 500 H* 08/25/17 19:55 POC Glucose 463 H* Assessment/Plan All Active Problems (Last Reviewed 08/25/17 @ 17:39 by Yuriy Browning DO) CVA (cerebral vascular accident) (Acute) Aphasia (Acute) History of knee replacement (Resolved) Hx of tonsillectomy (Resolved) Hx of cholecystectomy (Resolved) H/O: hysterectomy (Resolved) History of lumbar surgery (Resolved) Diarrhea (Acute) Abdominal pain (Acute) Lactic acidosis (Acute) Dehydration (Acute) Hyperkalemia (Resolved) Third nerve palsy (Resolved) The patient is a 81 year old CF with PMH HTN, HLD, DM, H/O TIA, CAD s/p CABG, FR[place], H/O renal cancer, CKD admitted with speech disturbances. History is obtained from medical records and patient. Per documentation her speech disturbances with word finding difficulty started yesterday morning (08/25/17), had expressive aphasia, denies any focal motor weakness, on admission NIHSS was 0 per ED documentation but did have aphasia on admission, was not a tpa candidate as was out of window, CT head done on admission was reported nothing acute, had a repeat CT head early this morning which did not show anything acute , I saw the patient at around 10:30 am this morning (08/26/17) when patient had mild expressive aphasia with right sided LE drift and weakness with NIHSS 3, denied any [place], visual disturbances, fever, chest pain, per patient she lives with her , denied using cane or walker to ambulate, denied any frequent falls, and per patient did not need any assistance for her ADLs, but later after about an hour I was informed by the nurse that there was worsening in the mental status, for which patient had repeat CT head at 11:51 am which again did not show anything acute. Labs on admission: WBC-12.3, Na 133, creatinine 1.66--> 1.44, glucose 548, TG-337, LDL-16 Impression R/O Stroke Metabolic encephalopathy Uncontrolled HTN Plan -CT head reviewed- no stroke in [address] head since admission (on admission 08/25/17-13:54 pm, this morning at 5:55 am and 11.:51 am) -check CTA head/neck -Cannot get MRI brain due to pain pump implantation per documentation -Check TTE, Hba1c -LDL-16 -On ASA 81 mg PO once daily, Plavix 75 mg PO once daily, dual AP for 3 weeks, bleeding risk discussed -On Lipitor 40 mg PO q hs -Check UA, ammonia level -Further medical management per primary team -Better BP control, after vessel imaging results available. -Stroke risk factors discussed in detail and stroke education provided -Recommend 30 day event recorder -Frequent neuro checks -GI/DVT prophylaxis -PT/OT -Fall precautions -Further medical management per primary team -Please follow up with Neurology as outpatient in about 2-3 weeks -Please call with questions if any -Thank you for allowing us to participate in patient's care and management I spent 60 minutes taking history, doing physical examination, reviewing medical records, coordinating care and counseling the patient. Code Visit Inpatient E&M: 41698 Init Hosp L3
--- NOTE | 2017-08-26 13:46 | CT_ITS ---
STUDY: CTA OF THE BRAIN REASON FOR EXAM: Female, 81 years old. A aphasia. Increased confusion. RADIATION DOSAGE (If Supplied By Facility): CTDIvol = ( 40.19 ) mGy, DLP = ( 972.5 ) mGycm TECHNIQUE: CT angiography was performed with a multi-detector CT scanner. Data acquisition was obtained from the skull base through the vertex following intravenous administration of 100 ml of Isovue-370. MIP images were reconstructed from the axial data set. Post-processing of the angiographic images was performed, with multiplanar reformation and 3D reconstruction. Individualized dose optimization techniques were used for this CT. COMPARISON: None. FINDINGS: Normal bilateral petrous carotid arteries. There is calcified plaque formation of the right cavernous carotid artery, without a cross-sectional luminal stenosis. There is calcified plaque formation of the left cavernous carotid artery, without a cross-sectional luminal stenosis. Normal right A1 segments of the anterior cerebral artery. Normal left A1 segments of the anterior cerebral artery. Normal intact anterior communicating artery (ACOM). Normal bilateral A2 segments of the anterior cerebral arteries. Normal right M1 and M2 segments of the middle cerebral arteries, with a normal M1 bifurcation. Normal left M1 and M2 segments of the middle cerebral arteries, with a normal M1 bifurcation. Normal right posterior communicating artery (PCOM). Normal left posterior communicating artery (PCOM). Normal bilateral vertebral arteries. Normal basilar artery with a normal basilar bifurcation. The visualized bilateral superior cerebellar (SCA) arteries are normal. Normal bilateral P1, P2 and visualized P3 segments of the posterior cerebral arteries. There is no demonstrated aneurysm of the [place]. Mucosal thickening of the right sphenoid sinus. CT/CTA Head W/WO Contrast IMPRESSION: Normal [place] without a demonstrated aneurysm or hemodynamically significant stenosis. Electronically Signed: Sai Calhoun MD at 14:46 EDT Tel [phone], Service support ,
--- NOTE | 2017-08-26 13:46 | CT_ITS ---
STUDY: CTA NECK WITH CONTRAST REASON FOR EXAM: Female, 81 years old. Aphasia. Increased confusion. RADIATION DOSAGE (If Supplied By Facility): CTDIvol = ( 40.19 ) mGy, DLP = ( 972.5 ) mGycm TECHNIQUE: CT angiography with multi-detector data acquisition was performed from the aortic arch to the skull base following intravenous administration of 100 ml of Isovue 370 contrast. MIP images were reconstructed from the axial data set. Post-processing of the angiographic images was performed, with multiplanar reformation and 3D reconstruction. Individualized dose optimization techniques were used for this CT. COMPARISON: None. FINDINGS: Status post CABG. Coronary artery calcification. AORTIC ARCH: There is atherosclerotic calcific plaque formation of the aortic arch and great vessels arising from the aortic arch, without a hemodynamically significant stenosis. There is a normal origin of the brachiocephalic, left common carotid, and left subclavian arteries. Calcific plaque at the origin of the left subclavian artery and left common carotid artery.. RIGHT CAROTID ARTERIES: Normal right common carotid artery (CCA). Normal right common carotid bulb. There is mild atherosclerotic plaque formation of the origin of the right internal carotid artery with less than 50% cross sectional diameter stenosis. Normal visualized cervical portion of the right internal carotid artery. Normal origin of the right external carotid artery (ECA). LEFT CAROTID ARTERIES: Small calcified plaque in the midportion of the left common carotid artery. Normal left common carotid bulb. There is extensive atherosclerotic plaque formation of the origin of the left internal carotid artery with an estimated stenosis of greater than 70%. Normal visualized cervical portion of the left internal carotid artery. Normal origin of the left external carotid artery (ECA). VERTEBRAL ARTERIES: Normal bilateral vertebral arteries. CT/CTA Neck W/WO Contrast IMPRESSION: Atherosclerotic plaque at the origin of the left internal carotid artery with greater than 70% stenosis. Electronically Signed: Sai Calhoun MD at 14:49 EDT Tel [phone], Service support ,
--- NOTE | 2017-08-26 14:04 | CASEMGMT ---
Addendum entered by Aneta Dasilva 08/26/17 15:49: This RN CM to room to complete CM assessment and RN is at bedside with agnes ballard doing pt care. This RN CM will attempt to see pt 08/27/17. John HENDRICKS CM Original Note: This RN CM to room to complete CM assessment and pt is now going down for a brain ct with contrast. This RN CM will attempt later. John HENDRICKS CM
[2017-08-26 14:06] LABS: Bedside Glucose 372 mg/dL (70-110)
[2017-08-26 15:10] LABS: Hemoglobin A1c 10.3 % (4.2-6.3)
[2017-08-26 15:20] LABS: Bedside Glucose 309 mg/dL (70-110)
[2017-08-26 15:55] LABS: Bacteria 0 SEEN /hpf (None Seen); Mucous, Urine 0 SEEN /hpf (<or=2+); Red Blood Cells-Urine 0 SEEN /hpf (0-5); Squamous Epithelial Cells - UA 0 SEEN /hpf (5-10); White Blood Cells 0 SEEN /hpf (0-5)
--- NOTE | 2017-08-26 15:57 | CDU_ITS ---
Reason For Study: Carotid stenosis Rt. Velocities/BP Lt. Velocities/BP Prox CCA 96.4/11.9 cm/sec. Prox CCA 57.8/8.4 cm/sec. Mid CCA 57.5/11.1 cm/sec. Mid CCA 52.2/7.0 cm/sec. Dist CCA 52.2/10.6 cm/sec. Dist CCA 62.1/13.5 cm/sec. Prox ICA 52.8/13.5 cm/sec. Prox ICA 91.9/19.6 cm/sec. Mid ICA 59.8/13.5 cm/sec. Mid ICA 58.4/12.5 cm/sec. Dist ICA 47.5/10.6 cm/sec. Dist ICA 56.0/13.8 cm/sec. Rt. ICA/CCA = 1.0. Lt. ICA/CCA = 1.8. Prox ECA 81.5/9.4 cm/sec. Prox ECA 69.2/6.6 cm/sec. Rt. Vert. 49.8/9.4 cm/sec. Lt. Vert. 75.1/11.1 cm/sec. Right Extracranial There is intimal thickening but no significant atherosclerotic plaque noted in the right common carotid artery. There is heterogeneous, irregular atherosclerotic plaque noted in the right internal carotid artery. There is heterogeneous, irregular atherosclerotic plaque noted in the right external carotid artery. Antegrade flow is noted in the right vertebral artery. Left Extracranial There is heterogeneous, irregular atherosclerotic plaque noted in the left common carotid artery. There is heterogeneous, irregular atherosclerotic plaque noted in the left internal carotid artery. The atherosclerotic plaque causes acoustic shadowing. There is heterogeneous, irregular atherosclerotic plaque noted in the left external carotid artery. Antegrade flow is noted in the left vertebral artery. Procedure Carotid Duplex [id number]. Exam performed portable in patient room. Interpretation Summary There is < 50% stenosis in the bilateral extracranial internal carotid arteries based on the velocity criteria. There is heterogenous irregular atherosclerotic plaque in both extracranial internal carotid arteries. Acoustic shadowing noted due to atherosclerotic plaque in the left extracranial internal carotid artery.There is antegrade flow in both vertebral arteries. Ordering Physician: Mitra Martinez Referring Physician: Fernando Kong Performed By: Kaylynn Brown RVT
[2017-08-26 16:04] LABS: Color, Urine Yellow (Yellow); Glucose, Dipstick 1000 mg/dl (Normal); Ketone-Dipstick 15 mg/dl (Negative); Leukocyte Esterase-Dipstick Negative /ul (Negative); Nitrite-Dipstick Negative (Negative); Occult Blood-Urine 10 /ul (Negative); Protein-Dipstick 100 mg/dl (Negative); Urine Bilirubin Dipstick Negative (Negative); Urine Clarity Sl. Cloudy (Clear); Urine Urobilinogen Normal (Normal); Urine pH 6.5 (5.0 - 8.0)
[2017-08-26 16:40] LABS: Bedside Glucose 260 mg/dL (70-110)
[2017-08-26 17:40] LABS: Bedside Glucose 219 mg/dL (70-110)
[2017-08-26 18:35] LABS: Bedside Glucose 154 mg/dL (70-110)
[2017-08-26 19:46] LABS: Bedside Glucose 139 mg/dL (70-110)
[2017-08-26] MEDS: Atorvastatin Calcium 40 MG Tablet PO (20:59)
[2017-08-26 21:05] LABS: Bedside Glucose 163 mg/dL (70-110)
[2017-08-26] MEDS: Insulin Lispro 100 UNIT/ML INSULN.PEN SQ (21:51)
[2017-08-26 22:06] LABS: Bedside Glucose 150 mg/dL (70-110)
[2017-08-26 23:06] LABS: Bedside Glucose 175 mg/dL (70-110)
[2017-08-27] VITALS (16 sets, daily range): BP systolic 147–193; BP diastolic 70–107; PULSE 76–99; RESP 19–28; TEMP 36.1–36.8; O2SAT 92–97; BMI 27.2
[2017-08-27 00:21] LABS: Bedside Glucose 195 mg/dL (70-110)
[2017-08-27 02:16] LABS: Bedside Glucose 222 mg/dL (70-110)
--- NOTE | 2017-08-27 03:37 | NURSING ---
Pt uncooperative this AM with vital signs and NIH.
[2017-08-27 03:41] LABS: Bedside Glucose 236 mg/dL (70-110)
[2017-08-27] MEDS: hydrALAZINE 50 MG Tablet PO ×3 (05:05→22:12)
[2017-08-27] MEDS: Levothyroxine 88 MCG Tablet PO (05:05)
[2017-08-27 05:11] LABS: Bedside Glucose 277 mg/dL (70-110)
[2017-08-27 06:51] LABS: Bedside Glucose 280 mg/dL (70-110)
[2017-08-27 07:09] LABS: Anion Gap 13 (5-15); BUN 24 mg/dL (7-18); BUN/Creat Ratio 15.8 RATIO (10-20); Calcium,Total 9.6 mg/dL (8.5-10.1); Chloride 105 mmol/L (98-107); Creatinine, Serum 1.52 mg/dL (0.55-1.02); EST Glomerular Filtration Rate 35 mL/min (>60); Est Glom Filt Rate - Afr Amer 42 mL/min (>60); Estimated Creatinine Clearance 24.83 ml/min; Glucose 277 mg/dL (74-106); Magnesium 1.4 mg/dL (1.6-2.6); Potassium 3.5 mmol/L (3.5-5.1); Sodium Level 140 mmol/L (136-145)
--- NOTE | 2017-08-27 09:33 | PN_ITS ---
Patient Problems: Active and Suspected Problems (Last Reviewed 08/25/17 @ 17:39 by Yuriy Browning DO) CVA (cerebral vascular accident) (Acute) Aphasia (Acute) Subjective: Patient seen. Still remains on insulin drip. 3 CT is obtained since admission all negative for acute CVA however an MRI could not be obtained in view of patient having pain pump in her back. CT of the head and neck demonstrated Atherosclerotic plaque at the origin of the left internal carotid artery with greater than 70% stenosis. Plan is to wean off insulin drip and initiate long- acting and scheduled short-acting pre-meal insulin Objective: GENERAL: cooperative and in no apparent distress. HEENT: Clear conjunctiva, moist oral mucosa NECK; supple, normal thyroid, no distended JVD. CHEST: Clear to auscultation bilaterally, HEART: Regular S1 S2, no audible murmurs ABDOMEN: soft, non-tender, normoactive bowel sounds, RECTAL: deferred EXTREMITIES: No edema, no clubbing, no cyanosis. 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; no lateralizing signs with receptive and expressive aphasia SKIN: No Rash Vitals/I&O's: Vital Signs Temp Pulse Resp BP Pulse Ox 97.6 F L 82 22 H 193/90 H 93 08/27/17 07:20 08/27/17 07:43 08/27/17 07:20 08/27/17 07:20 08/27/17 07:20 Oxygen Flow Rate (L/min) 2 Oxygen Delivery Method Room Air Weight: 69.7 kg Body Mass Index (BMI) 27.2 Intake and Output for Last 24 Hours 08/25/17 08/26/17 08/27/17 23:59 23:59 23:59 Intake Total 466 / 466 86 / 86 Output Total 240 / 240 300 / 300 Balance 226 / 226 -214 / -214 Laboratory Results 08/26/17 07:15: Sodium 134 L, Potassium 3.9, Chloride 99, Carbon Dioxide 22.0, Anion Gap 13, BUN 26 H, Creatinine 1.44 H, Estim Creat Clear Calc 26.21, Est GFR (MDRD) Af Amer 45 L, Est GFR (MDRD) Non-Af 37 L, BUN/Creatinine Ratio 18.1, Glucose 486 H*, Calcium 9.1, Magnesium 1.2 L 08/26/17 09:14: POC Glucose > 500 H* 08/26/17 11:33: POC Glucose > 500 H* 08/26/17 13:59: POC Glucose 372 H 08/26/17 14:33: Hemoglobin A1c 10.3 H 08/26/17 14:33: Ammonia 11.0 08/26/17 15:17: POC Glucose 309 H 08/26/17 15:45: Urine Color Yellow, Urine Clarity Sl. Cloudy, Urine pH 6.5, Ur Specific [place] 1.010, Urine Protein 100 H, Urine Glucose (UA) 1000 H, Urine Ketones 15 H, Urine Occult Blood 10 H, Urine Nitrite Negative, Urine Bilirubin Negative, Urine Urobilinogen Normal, Ur Leukocyte Esterase Negative, Urine RBC 0 SEEN, Urine WBC 0 SEEN, Ur Squamous Epith Cells 0 SEEN, Urine Bacteria 0 SEEN , Urine Mucus 0 SEEN 08/26/17 16:27: POC Glucose 260 H 08/26/17 17:29: POC Glucose 219 H 08/26/17 18:28: POC Glucose 154 H 08/26/17 19:39: POC Glucose 139 H 08/26/17 20:41: POC Glucose 163 H 08/26/17 21:47: POC Glucose 150 H 08/26/17 22:59: POC Glucose 175 H 08/27/17 00:14: POC Glucose 195 H 08/27/17 02:11: POC Glucose 222 H 08/27/17 03:31: POC Glucose 236 H 08/27/17 05:08: POC Glucose 277 H 08/27/17 06:30: Sodium 140, Potassium 3.5, Chloride 105, Carbon Dioxide 22.0, Anion Gap 13, BUN 24 H, Creatinine 1.52 H, Estim Creat Clear Calc 24.83, Est GFR (MDRD) Af Amer 42 L, Est GFR (MDRD) Non-Af 35 L, BUN/Creatinine Ratio 15.8, Glucose 277 H, Calcium 9.6, Magnesium 1.4 L 08/27/17 06:46: POC Glucose 280 H Current Medications Acetaminophen (Tylenol) 650 mg PO Q6H PRN PRN PRN Reason: Mild Pain (1-3)/Temp > 100.7 F Aspirin (Ecotrin) 81 mg PO DAILY@0800 [facility] Last Admin: 08/26/17 09:24 Dose: 81 mg Atorvastatin Calcium (Lipitor) 40 mg PO QHS [facility] Last Admin: 08/26/17 20:59 Dose: 40 mg Cholecalciferol (Vitamin D) 2,000 unit PO DAILY [facility] Last Admin: 08/26/17 09:28 Dose: 2,000 unit Dextrose (D50w Syringe) 0 gm IV X1 PRN; Protocol PRN Reason: Hypoglycemia Enoxaparin Sodium (Lovenox) 30 mg SC DAILY@1000 [facility] Last Admin: 08/26/17 09:28 Dose: 30 mg Glucagon () 1 mg IM .X1 PRN PRN Reason: Hypoglycemia Hydralazine HCl (Apresoline) 50 mg PO TID [facility] Last Admin: 08/27/17 05:05 Dose: 50 mg Insulin Aspart 100 unit/ (Sodium Chloride) 100 mls @ 6.97 mls/hr CONT INF .[id number] [facility]; 0.1 UNITS/KG/HR PRN Reason: Protocol Last Admin: 08/27/17 02:26 Dose: Not Given Insulin Glargine (Lantus (Bkc)) 20 units SC BID [facility] Insulin Human Lispro (Humalog Kwikpen (Bkc)) 10 unit SC TIDAC [facility] Insulin Human Lispro (Humalog Kwikpen (Bkc)) 0 unit SQ ACHS [facility] PRN Reason: Protocol Last Admin: 08/26/17 21:51 Dose: 1 units Isosorbide Mononitrate (Imdur) 30 mg PO DAILY [facility] Last Admin: 08/26/17 09:24 Dose: 30 mg Levothyroxine Sodium (Synthroid) 88 mcg PO DAILY@0600 [facility] Last Admin: 08/27/17 05:05 Dose: 88 mcg Lisinopril (Zestril) 20 mg PO DAILY [facility] Last Admin: 08/26/17 09:28 Dose: 20 mg Magnesium Hydroxide (Milk Of Magnesia) 30 ml PO DAILY PRN PRN Reason: Constipation Metoprolol Tartrate (Lopressor (Beta Pancho)) 25 mg PO BID [facility] Last Admin: 08/26/17 20:59 Dose: 25 mg Nutritional Formula (Lactose Free) (Glucerna Shake) 120 ml PO 4X/DAY [facility] Last Admin: 08/26/17 20:58 Dose: Not Given Ondansetron HCl (Zofran) 4 mg IV Q8H PRN PRN PRN Reason: NAUSEA Pantoprazole Sodium (Protonix) 40 mg PO DAILY [facility] Last Admin: 08/26/17 09:28 Dose: 40 mg Sodium Chloride () 5 - 30 ml IV UD PRN PRN Reason: SALINE FLUSH Tolterodine Tartrate (Detrol La) 2 mg PO DAILY [facility] Last Admin: 08/26/17 09:24 Dose: 2 mg Medical Necessity - Tobacco Use Smoking Status: Never smoker Tobacco Use: Non-smoker Assessment/Plan All Active Problems (Last Reviewed 08/25/17 @ 17:39 by Yuriy Browning DO) CVA (cerebral vascular accident) (Acute) Aphasia (Acute) History of knee replacement (Resolved) Hx of tonsillectomy (Resolved) Hx of cholecystectomy (Resolved) H/O: hysterectomy (Resolved) History of lumbar surgery (Resolved) Diarrhea (Acute) Abdominal pain (Acute) Lactic acidosis (Acute) Dehydration (Acute) Hyperkalemia (Resolved) Third nerve palsy (Resolved) Patient is a 81 year old lady with past medical history significant for hypertension, diabetes mellitus type 2, dyslipidemia, was brought to the emergency department on account of patient having difficulty finding words and not acting right according to the . There was a high suspicion of possible acute ischemic stroke admitted to monitored bed for subsequent management. NIH on admission was assessed to be 2. An MRI could not be performed in view of patient having pain pump. 1. Suspected acute ischemic stroke. Patient has been admitted to monitored bed where she is currently undergoing evaluation including every 4 neuro checks , repeat CT, 2D echo, patient has been managed per protocol with antiplatelets, statin therapy, with consultation placed to neurology 2. 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 Did adjust patient regimen adding scheduled long- acting and pre-meal insulin in addition to sliding scale correction factor 3. Chronic kidney disease stage III patient kidney function appears to be at baseline 4. Hypertension-blood pressure controlled, home medications continued with dose adjustment as needed 5. Dyslipidemia-patient is on statin therapy, continued at home dose 7. Hypothyroidism-patient is on levothyroxine home dose continued 8. DVT prophylaxis SC Lovenox; dose adjusted for kidney function 9. 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 Patient is on dual antiplatelet therapy for now with plans for patient to be referred to slow surgery on discharge Code Visit Inpatient E&M: [id number] [id number]
[2017-08-27] MEDS: Insulin Lispro 100 UNIT/ML INSULN.PEN 10 UNIT SC ×3 (10:18→16:29)
[2017-08-27] MEDS: Aspirin E.C. 81 MG Tablet PO (10:19)
[2017-08-27] MEDS: Insulin Lispro 100 UNIT/ML INSULN.PEN SQ ×4 (10:19→22:10)
[2017-08-27] MEDS: Tolterodine Tartrate 2 MG CAP.SA PO (10:20)
[2017-08-27] MEDS: Metoprolol Tartrate 25 MG Tablet PO ×2 (10:20→22:12)
[2017-08-27] MEDS: Isosorbide Mononitrate 30 MG Tablet PO (10:20)
[2017-08-27] MEDS: Enoxaparin 30 MG/0.3 ML Syringe SC (10:21)
[2017-08-27] MEDS: Pantoprazole Sodium 40 MG Tablet PO (10:21)
[2017-08-27] MEDS: Lisinopril 20 MG Tablet PO (10:21)
--- NOTE | 2017-08-27 11:48 | CASEMGMT ---
Face to Face with patient for initial transition planning/care coordination assessment. RUTHIE PINZON introduced self and role at [facility], pt voices understanding and consents to assessment at this time. Pt is lying in bed in no distress at this time. Pt is A/O x4 at the time of assessment and answered all questions appropriately. See attached link and note regarding confusion later. Care providers, pharmacy, and demographics verified. Pt voices no further concerns/needs at this time. Advised pt to ask for CM if any further questions/concerns/needs arise, voices understanding. Therapy recommending inpt rehab at this time. Pt and aware at this time and agree to inpt rehab. Ness ANGELO aware at this time, voices understanding. PLAN: INPT Rehab, pending precert/acceptance John HENDRICKS CM
[2017-08-27 11:51] LABS: Bedside Glucose 393 mg/dL (70-110)
--- NOTE | 2017-08-27 14:34 | PCM.PN.NEU ---
Subjective: No issues overnight. Expressive aphasia better than yesterday. - Physical Exam General: Alert HEENT: Normocephalic Neck: Supple Lungs: Clear to auscultation Cardiovascular: Normal S1, Normal S2 Abdomen: Bowel Sounds Present Extremities: No cyanosis Skin: No rashes Musculoskeletal: No Tenderness to Palpation of Joints or Extremities Psych/Mental Status: Normal Affect Vital Signs Temp Pulse Resp BP Pulse Ox 97.0 F L 80 19 H 160/83 H 92 08/27/17 14:28 08/27/17 14:28 08/27/17 14:28 08/27/17 14:28 08/27/17 14:28 Oxygen Flow Rate (L/min) 2 Oxygen Delivery Method Room Air Weight: 69.7 kg Body Mass Index (BMI) 27.2 Intake and Output for Last 24 Hours 08/25/17 08/26/17 08/27/17 23:59 23:59 23:59 Intake Total 466 / 466 436 / 436 Output Total 240 / 240 300 / 300 Balance 226 / 226 136 / 136 Laboratory Tests Past 24 Hrs 08/26/17 08/26/17 08/26/17 14:33 14:33 15:45 Sodium Potassium Chloride Carbon Dioxide Anion Gap BUN Creatinine Estim Creat Clear Calc Est GFR (MDRD) Af Amer Est GFR (MDRD) Non-Af BUN/Creatinine Ratio Glucose Hemoglobin A1c 10.3 H Calcium Magnesium Ammonia 11.0 Urine Color Yellow Urine Clarity Sl. Cloudy Urine pH 6.5 Ur Specific [place] 1.010 Urine Protein 100 H Urine Glucose (UA) 1000 H Urine Ketones 15 H Urine Occult Blood 10 H Urine Nitrite Negative Urine Bilirubin Negative Urine Urobilinogen Normal Ur Leukocyte Esterase Negative Urine RBC 0 SEEN Urine WBC 0 SEEN Ur Squamous Epith Cells 0 SEEN Urine Bacteria 0 SEEN Urine Mucus 0 SEEN 08/27/17 06:30 Sodium 140 Potassium 3.5 Chloride 105 Carbon Dioxide 22.0 Anion Gap 13 BUN 24 H Creatinine 1.52 H Estim Creat Clear Calc 24.83 Est GFR (MDRD) Af Amer 42 L Est GFR (MDRD) Non-Af 35 L BUN/Creatinine Ratio 15.8 Glucose 277 H Hemoglobin A1c Calcium 9.6 Magnesium 1.4 L Ammonia Urine Color Urine Clarity Urine pH Ur Specific [place] Urine Protein Urine Glucose (UA) Urine Ketones Urine Occult Blood Urine Nitrite Urine Bilirubin Urine Urobilinogen Ur Leukocyte Esterase Urine RBC Urine WBC Ur Squamous Epith Cells Urine Bacteria Urine Mucus POC Glucose 08/27/17 08/27/17 08/27/17 11:33 06:46 05:08 POC Glucose 393 H 280 H 277 H 08/27/17 08/27/17 08/27/17 03:31 02:11 00:14 POC Glucose 236 H 222 H 195 H 08/26/17 08/26/17 08/26/17 22:59 21:47 20:41 POC Glucose 175 H 150 H 163 H 08/26/17 08/26/17 08/26/17 19:39 18:28 17:29 POC Glucose 139 H 154 H 219 H 08/26/17 08/26/17 16:27 15:17 POC Glucose 260 H 309 H Medical Necessity - Tobacco Use Smoking Status: Never smoker Tobacco Use: Non-smoker Assessment/Plan All Active Problems (Last Reviewed 08/25/17 @ 17:39 by Yuriy Browning DO) Debility (Acute) Hyperkalemia (Resolved) Third nerve palsy (Resolved) The patient is a 81 year old CF with PMH HTN, HLD, DM, H/O TIA, CAD s/p CABG, [place], H/O renal cancer, CKD admitted with speech disturbances. Per documentation her speech disturbances with word finding difficulty started 2 days ago morning (08/25/17), had expressive aphasia, denies any focal motor weakness, on admission NIHSS was 0 per ED documentation but did have aphasia on admission, was not a tpa candidate as was out of window, CT head done on admission was reported nothing acute, had a repeat CT head yesterday morning which did not show anything acute. Labs on admission: WBC-12.3, Na 133, creatinine 1.66-->1.44, glucose 548, TG-337, LDL-16 Impression Possible TIA Metabolic encephalopathy Uncontrolled HTN Plan -CT head reviewed- no stroke in [address] head since admission (on admission 08/25/17-13:54 pm, then on 08/26/17 morning at 5:55 am and 11.:51 am) -CTA head/neck-Left ICA >70% stenosis -Check Carotid ultrasound -Vascular surgery consult -Cannot get MRI brain due to pain pump implantation per documentation -TTE-EF 65%, normal LA size, -LDL-16, Hxf8l-16.3% -On ASA 81 mg PO once daily, Plavix 75 mg PO once daily, dual AP for 3 weeks, bleeding risk discussed -On Lipitor 40 mg PO q hs -Further medical management per primary team -Better BP control, goal BP < 130/80 mmHg, avoid hypotension -Stroke risk factors discussed in detail and stroke education provided -Recommend 30 day event recorder -Frequent neuro checks -GI/DVT prophylaxis -PT/OT -Fall precautions -Further medical management per primary team -Please follow up with Neurology as outpatient in about 2-3 weeks -Please call with questions if any -Thank you for allowing us to participate in patient's care and management I spent 30 minutes taking history, doing physical examination, reviewing medical records, coordinating care and counseling the patient.
[2017-08-27] MEDS: Glucerna Shake 120 ML LIQUID PO ×2 (14:38→22:07)
--- NOTE | 2017-08-27 15:56 | CASEMGMT ---
SW called [facility] referral line and left 2 messages with referral for [facility] 4th floor rehab unit. Await response. Miriam BOLES MSW
[2017-08-27 16:35] LABS: Bedside Glucose 406 mg/dL (70-110)
[2017-08-27] MEDS: Atorvastatin Calcium 40 MG Tablet PO (22:08)
[2017-08-27 22:40] LABS: Bedside Glucose 318 mg/dL (70-110)
[2017-08-28] VITALS (18 sets, daily range): BP systolic 122–181; BP diastolic 72–114; PULSE 71–93; RESP 16–20; TEMP 36.4–37.1; O2SAT 93–97; BMI 27.2
--- NOTE | 2017-08-28 01:37 | NURSING ---
Pt. ripped out IV at this time, stated They told me they were not going to use it anymore.
[2017-08-28] MEDS: hydrALAZINE 50 MG Tablet PO ×3 (05:36→21:22)
[2017-08-28] MEDS: Levothyroxine 88 MCG Tablet PO (05:37)
[2017-08-28 06:16] LABS: Anion Gap 10 (5-15); BUN 28 mg/dL (7-18); BUN/Creat Ratio 16.9 RATIO (10-20); Calcium,Total 8.8 mg/dL (8.5-10.1); Chloride 104 mmol/L (98-107); Creatinine, Serum 1.66 mg/dL (0.55-1.02); EST Glomerular Filtration Rate 32 mL/min (>60); Est Glom Filt Rate - Afr Amer 38 mL/min (>60); Estimated Creatinine Clearance 22.73 ml/min; Glucose 391 mg/dL (74-106); Potassium 3.5 mmol/L (3.5-5.1); Sodium Level 137 mmol/L (136-145)
[2017-08-28 07:06] LABS: Bedside Glucose 393 mg/dL (70-110)
[2017-08-28] MEDS: Insulin Lispro 100 UNIT/ML INSULN.PEN 10 UNIT SC (08:55)
[2017-08-28] MEDS: Insulin Lispro 100 UNIT/ML INSULN.PEN SQ ×3 (08:56→21:22)
[2017-08-28] MEDS: Aspirin E.C. 81 MG Tablet PO (08:57)
[2017-08-28] MEDS: Glucerna Shake 120 ML LIQUID PO ×2 (08:58→21:21)
[2017-08-28] MEDS: Tolterodine Tartrate 2 MG CAP.SA PO (08:58)
[2017-08-28] MEDS: Isosorbide Mononitrate 30 MG Tablet PO (08:58)
[2017-08-28] MEDS: Metoprolol Tartrate 25 MG Tablet PO ×2 (08:59→21:21)
[2017-08-28] MEDS: Lisinopril 20 MG Tablet PO (09:00)
[2017-08-28] MEDS: Pantoprazole Sodium 40 MG Tablet PO (09:00)
[2017-08-28] MEDS: Enoxaparin 30 MG/0.3 ML Syringe SC (09:05)
--- NOTE | 2017-08-28 09:49 | CASEMGMT ---
GI spoke with Heather in the rehab unit and they can take patient pending insurance approval. GI spoke with patient and her and they both agreed to the rehab unit. Await insurance authorization for [facility] 4th floor rehab unit. Plan: [facility] 4th floor rehab unit pending insurance approval. Miriam BOLES MSW
--- NOTE | 2017-08-28 09:56 | PCM.PN.HOSP ---
Patient Problems: Active and Suspected Problems (Last Reviewed 08/25/17 @ 17:39 by Yuriy Browning DO) CVA (cerebral vascular accident) (Acute) Aphasia (Acute) Subjective: Patient expressive or receptive aphasia appears to have resolved did discuss with patient and regarding the Atherosclerotic plaque at the origin of the left internal carotid artery with greater than 70% stenosis with a preference is to follow-up with Dr. Wooten who is out till September 08, 2017 Objective: GENERAL: cooperative and in no apparent distress. HEENT: Clear conjunctiva, moist oral mucosa NECK; supple, normal thyroid, no distended JVD. CHEST: Clear to auscultation bilaterally, HEART: Regular S1 S2, no audible murmurs ABDOMEN: soft, non-tender, normoactive bowel sounds, RECTAL: deferred EXTREMITIES: No edema, no clubbing, no cyanosis. EXPORT FREIGHT CLERK: Awake; no lateralizing signs with receptive and expressive aphasia SKIN: No Rash Vitals/I&O's: Vital Signs Temp Pulse Resp BP Pulse Ox 98.1 F 74 16 134/79 H 96 08/28/17 08:03 08/28/17 08:59 08/28/17 08:03 08/28/17 08:03 08/28/17 08:03 Oxygen Flow Rate (L/min) 2 Oxygen Delivery Method Room Air Weight: 69.7 kg Body Mass Index (BMI) 27.2 Intake and Output for Last 24 Hours 08/26/17 08/27/17 08/28/17 23:59 23:59 23:59 Intake Total 466 / 466 1206 / 1206 120 / 120 Output Total 240 / 240 750 / 750 125 / 125 Balance 226 / 226 456 / 456 -5 / -5 Laboratory Results 08/27/17 11:33: POC Glucose 393 H 08/27/17 16:25: POC Glucose 406 H 08/27/17 22:05: POC Glucose 318 H 08/28/17 05:40: Sodium 137, Potassium 3.5, Chloride 104, Carbon Dioxide 23.0, Anion Gap 10, BUN 28 H, Creatinine 1.66 H, Estim Creat Clear Calc 22.73, Est GFR (MDRD) Af Amer 38 L, Est GFR (MDRD) Non-Af 32 L, BUN/Creatinine Ratio 16.9, Glucose 391 H, Calcium 8.8 08/28/17 06:53: POC Glucose 393 H Current Medications Acetaminophen (Tylenol) 650 mg PO Q6H PRN PRN PRN Reason: Mild Pain (1-3)/Temp > 100.7 F Aspirin (Ecotrin) 81 mg PO DAILY@0800 [facility] Last Admin: 08/28/17 08:57 Dose: 81 mg Atorvastatin Calcium (Lipitor) 40 mg PO QHS [facility] Last Admin: 08/27/17 22:08 Dose: 40 mg Cholecalciferol (Vitamin D) 2,000 unit PO DAILY [facility] Last Admin: 08/28/17 09:00 Dose: 2,000 unit Dextrose (D50w Syringe) 0 gm IV X1 PRN; Protocol PRN Reason: Hypoglycemia Enoxaparin Sodium (Lovenox) 30 mg SC DAILY@1000 [facility] Last Admin: 08/28/17 09:05 Dose: 30 mg Glucagon () 1 mg IM .X1 PRN PRN Reason: Hypoglycemia Hydralazine HCl (Apresoline) 50 mg PO TID [facility] Last Admin: 08/28/17 05:36 Dose: 50 mg Insulin Glargine (Lantus (Bkc)) 20 units SC BID [facility] Last Admin: 08/28/17 09:01 Dose: 20 units Insulin Human Lispro (Humalog Kwikpen (Bkc)) 10 unit SC TIDAC [facility] Last Admin: 08/28/17 08:55 Dose: 10 units Insulin Human Lispro (Humalog Kwikpen (Bkc)) 0 unit SQ ACHS [facility] PRN Reason: Protocol Last Admin: 08/28/17 08:56 Dose: 6 units Isosorbide Mononitrate (Imdur) 30 mg PO DAILY [facility] Last Admin: 08/28/17 08:58 Dose: 30 mg Levothyroxine Sodium (Synthroid) 88 mcg PO DAILY@0600 [facility] Last Admin: 08/28/17 05:37 Dose: 88 mcg Lisinopril (Zestril) 20 mg PO DAILY [facility] Last Admin: 08/28/17 09:00 Dose: 20 mg Magnesium Hydroxide (Milk Of Magnesia) 30 ml PO DAILY PRN PRN Reason: Constipation Metoprolol Tartrate (Lopressor (Beta Pancho)) 25 mg PO BID [facility] Last Admin: 08/28/17 08:59 Dose: 25 mg Nutritional Formula (Lactose Free) (Glucerna Shake) 120 ml PO 4X/DAY [facility] Last Admin: 08/28/17 08:58 Dose: 120 ml Ondansetron HCl (Zofran) 4 mg IV Q8H PRN PRN PRN Reason: NAUSEA Pantoprazole Sodium (Protonix) 40 mg PO DAILY [facility] Last Admin: 08/28/17 09:00 Dose: 40 mg Sodium Chloride () 5 - 30 ml IV UD PRN PRN Reason: SALINE FLUSH Tolterodine Tartrate (Detrol La) 2 mg PO DAILY [facility] Last Admin: 08/28/17 08:58 Dose: 2 mg Medical Necessity - Tobacco Use Smoking Status: Never smoker Tobacco Use: Non-smoker Assessment/Plan All Active Problems (Last Reviewed 08/25/17 @ 17:39 by Yuriy Browning DO) CVA (cerebral vascular accident) (Acute) Aphasia (Acute) History of knee replacement (Resolved) Hx of tonsillectomy (Resolved) Hx of cholecystectomy (Resolved) H/O: hysterectomy (Resolved) History of lumbar surgery (Resolved) Diarrhea (Acute) Abdominal pain (Acute) Lactic acidosis (Acute) Dehydration (Acute) Hyperkalemia (Resolved) Third nerve palsy (Resolved) Patient is a 81 year old lady with past medical history significant for hypertension, diabetes mellitus type 2, dyslipidemia, was brought to the emergency department on account of patient having difficulty finding words and not acting right according to the . There was a high suspicion of possible acute ischemic stroke admitted to monitored bed for subsequent management. NIH on admission was assessed to be 2. An MRI could not be performed in view of patient having pain pump. 1. Suspected acute ischemic stroke. Patient has been admitted to monitored bed where she is currently undergoing evaluation including every 4 neuro checks, repeat CT, 2D echo, patient has been managed per protocol with antiplatelets, statin therapy, with consultation placed to neurology 2. 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 Did adjust patient regimen adding scheduled long-acting and pre-meal insulin in addition to sliding scale correction factor 3. Chronic kidney disease stage III patient kidney function appears to be at baseline 4. Hypertension-blood pressure controlled, home medications continued with dose adjustment as needed 5. Dyslipidemia-patient is on statin therapy, continued at home dose 7. Hypothyroidism-patient is on levothyroxine home dose continued 8. DVT prophylaxis SC Lovenox; dose adjusted for kidney function 9. 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 Patient is on dual antiplatelet therapy for now with plans for patient to be referred to slow surgery on discharge. Did discuss with patient and regarding the Atherosclerotic plaque at the origin of the left internal carotid artery with greater than 70%; preference is to follow-up with Dr. Wooten who is out till September 08, 2017 this was also discussed with Dr. Martinez with neurology Code Visit Inpatient E&M: 84125 Subs Hosp L2
--- NOTE | 2017-08-28 10:06 | PN_ITS ---
Patient Problems: Active and Suspected Problems (Last Reviewed 08/25/17 @ 17:39 by Yuriy Browning DO) CVA (cerebral vascular accident) (Acute) Aphasia (Acute) Subjective: Patient expressive or receptive aphasia appears to have resolved did discuss with patient and regarding the Atherosclerotic plaque at the origin of the left internal carotid artery with greater than 70% stenosis with a preference is to follow-up with Dr. Wooten who is out till September 08, 2017 Objective: GENERAL: cooperative and in no apparent distress. HEENT: Clear conjunctiva, moist oral mucosa NECK; supple, normal thyroid, no distended JVD. CHEST: Clear to auscultation bilaterally, HEART: Regular S1 S2, no audible murmurs ABDOMEN: soft, non-tender, normoactive bowel sounds, RECTAL: deferred EXTREMITIES: No edema, no clubbing, no cyanosis. STONE SPLITTER: Awake; no lateralizing signs with receptive and expressive aphasia SKIN: No Rash Vitals/I&O's: Vital Signs Temp Pulse Resp BP Pulse Ox 98.1 F 74 16 134/79 H 96 08/28/17 08:03 08/28/17 08:59 08/28/17 08:03 08/28/17 08:03 08/28/17 08:03 Oxygen Flow Rate (L/min) 2 Oxygen Delivery Method Room Air Weight: 69.7 kg Body Mass Index (BMI) 27.2 Intake and Output for Last 24 Hours 08/26/17 08/27/17 08/28/17 23:59 23:59 23:59 Intake Total 466 / 466 1206 / 1206 120 / 120 Output Total 240 / 240 750 / 750 125 / 125 Balance 226 / 226 456 / 456 -5 / -5 Laboratory Results 08/27/17 11:33: POC Glucose 393 H 08/27/17 16:25: POC Glucose 406 H 08/27/17 22:05: POC Glucose 318 H 08/28/17 05:40: Sodium 137, Potassium 3.5, Chloride 104, Carbon Dioxide 23.0, Anion Gap 10, BUN 28 H, Creatinine 1.66 H, Estim Creat Clear Calc 22.73, Est GFR (MDRD) Af Amer 38 L, Est GFR (MDRD) Non-Af 32 L, BUN/Creatinine Ratio 16.9, Glucose 391 H, Calcium 8.8 08/28/17 06:53: POC Glucose 393 H Current Medications Acetaminophen (Tylenol) 650 mg PO Q6H PRN PRN PRN Reason: Mild Pain (1-3)/Temp > 100.7 F Aspirin (Ecotrin) 81 mg PO DAILY@0800 [facility] Last Admin: 08/28/17 08:57 Dose: 81 mg Atorvastatin Calcium (Lipitor) 40 mg PO QHS [facility] Last Admin: 08/27/17 22:08 Dose: 40 mg Cholecalciferol (Vitamin D) 2,000 unit PO DAILY [facility] Last Admin: 08/28/17 09:00 Dose: 2,000 unit Dextrose (D50w Syringe) 0 gm IV X1 PRN; Protocol PRN Reason: Hypoglycemia Enoxaparin Sodium (Lovenox) 30 mg SC DAILY@1000 [facility] Last Admin: 08/28/17 09:05 Dose: 30 mg Glucagon () 1 mg IM .X1 PRN PRN Reason: Hypoglycemia Hydralazine HCl (Apresoline) 50 mg PO TID [facility] Last Admin: 08/28/17 05:36 Dose: 50 mg Insulin Glargine (Lantus (Bkc)) 20 units SC BID [facility] Last Admin: 08/28/17 09:01 Dose: 20 units Insulin Human Lispro (Humalog Kwikpen (Bkc)) 10 unit SC TIDAC [facility] Last Admin: 08/28/17 08:55 Dose: 10 units Insulin Human Lispro (Humalog Kwikpen (Bkc)) 0 unit SQ ACHS [facility] PRN Reason: Protocol Last Admin: 08/28/17 08:56 Dose: 6 units Isosorbide Mononitrate (Imdur) 30 mg PO DAILY [facility] Last Admin: 08/28/17 08:58 Dose: 30 mg Levothyroxine Sodium (Synthroid) 88 mcg PO DAILY@0600 [facility] Last Admin: 08/28/17 05:37 Dose: 88 mcg Lisinopril (Zestril) 20 mg PO DAILY [facility] Last Admin: 08/28/17 09:00 Dose: 20 mg Magnesium Hydroxide (Milk Of Magnesia) 30 ml PO DAILY PRN PRN Reason: Constipation Metoprolol Tartrate (Lopressor (Beta Pancho)) 25 mg PO BID [facility] Last Admin: 08/28/17 08:59 Dose: 25 mg Nutritional Formula (Lactose Free) (Glucerna Shake) 120 ml PO 4X/DAY [facility] Last Admin: 08/28/17 08:58 Dose: 120 ml Ondansetron HCl (Zofran) 4 mg IV Q8H PRN PRN PRN Reason: NAUSEA Pantoprazole Sodium (Protonix) 40 mg PO DAILY [facility] Last Admin: 08/28/17 09:00 Dose: 40 mg Sodium Chloride () 5 - 30 ml IV UD PRN PRN Reason: SALINE FLUSH Tolterodine Tartrate (Detrol La) 2 mg PO DAILY [facility] Last Admin: 08/28/17 08:58 Dose: 2 mg Medical Necessity - Tobacco Use Smoking Status: Never smoker Tobacco Use: Non-smoker Assessment/Plan All Active Problems (Last Reviewed 08/25/17 @ 17:39 by Yuriy Browning DO) CVA (cerebral vascular accident) (Acute) Aphasia (Acute) History of knee replacement (Resolved) Hx of tonsillectomy (Resolved) Hx of cholecystectomy (Resolved) H/O: hysterectomy (Resolved) History of lumbar surgery (Resolved) Diarrhea (Acute) Abdominal pain (Acute) Lactic acidosis (Acute) Dehydration (Acute) Hyperkalemia (Resolved) Third nerve palsy (Resolved) Patient is a 81 year old lady with past medical history significant for hypertension, diabetes mellitus type 2, dyslipidemia, was brought to the emergency department on account of patient having difficulty finding words and not acting right according to the . There was a high suspicion of possible acute ischemic stroke admitted to monitored bed for subsequent management. NIH on admission was assessed to be 2. An MRI could not be performed in view of patient having pain pump. 1. Suspected acute ischemic stroke. Patient has been admitted to monitored bed where she is currently undergoing evaluation including every 4 neuro checks , repeat CT, 2D echo, patient has been managed per protocol with antiplatelets, statin therapy, with consultation placed to neurology 2. 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 Did adjust patient regimen adding scheduled long- acting and pre-meal insulin in addition to sliding scale correction factor 3. Chronic kidney disease stage III patient kidney function appears to be at baseline 4. Hypertension-blood pressure controlled, home medications continued with dose adjustment as needed 5. Dyslipidemia-patient is on statin therapy, continued at home dose 7. Hypothyroidism-patient is on levothyroxine home dose continued 8. DVT prophylaxis SC Lovenox; dose adjusted for kidney function 9. 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 Patient is on dual antiplatelet therapy for now with plans for patient to be referred to slow surgery on discharge. Did discuss with patient and regarding the Atherosclerotic plaque at the origin of the left internal carotid artery with greater than 70%; preference is to follow-up with Dr. Wooten who is out till September 08, 2017 this was also discussed with Dr. Martinez with neurology Code Visit Inpatient E&M: 86109 Subs Hosp L2
[2017-08-28 11:50] LABS: Bedside Glucose > 500 mg/dL (70-110)
[2017-08-28] MEDS: Insulin Lispro 100 UNIT/ML INSULN.PEN 30 UNIT SQ (12:34)
[2017-08-28 13:37] LABS: Glucose 576 mg/dL (74-106)
--- NOTE | 2017-08-28 14:57 | CASEMGMT ---
Insurance approval received for inpatient rehab, however Dr Martinez would like her to stay until tomorrow so her blood sugars can be monitored. Plan: [facility] 4th floor rehab unit. Miriam WILKES
[2017-08-28] MEDS: Insulin Lispro 100 UNIT/ML INSULN.PEN 20 UNIT SC (16:36)
[2017-08-28 16:46] LABS: Bedside Glucose 281 mg/dL (70-110)
[2017-08-28] MEDS: Atorvastatin Calcium 40 MG Tablet PO (21:21)
[2017-08-28 22:15] LABS: Bedside Glucose 188 mg/dL (70-110)
[2017-08-29] VITALS (18 sets, daily range): BP systolic 135–183; BP diastolic 68–97; PULSE 70–96; RESP 16–18; TEMP 36.6–37; O2SAT 94–96; BMI 27.2
[2017-08-29] MEDS: Levothyroxine 88 MCG Tablet PO (05:00)
[2017-08-29] MEDS: hydrALAZINE 50 MG Tablet PO ×3 (05:00→22:46)
[2017-08-29 06:50] LABS: Anion Gap 9 (5-15); BUN 30 mg/dL (7-18); Calcium,Total 8.6 mg/dL (8.5-10.1); Chloride 104 mmol/L (98-107); Creatinine, Serum 1.58 mg/dL (0.55-1.02); EST Glomerular Filtration Rate 33 mL/min (>60); Est Glom Filt Rate - Afr Amer 41 mL/min (>60); Estimated Creatinine Clearance 23.88 ml/min; Glucose 332 mg/dL (74-106); Sodium Level 137 mmol/L (136-145)
[2017-08-29 07:00] LABS: Bedside Glucose 340 mg/dL (70-110)
[2017-08-29] MEDS: Insulin Lispro 100 UNIT/ML INSULN.PEN 20 UNIT SC ×3 (07:58→16:44)
[2017-08-29] MEDS: Insulin Lispro 100 UNIT/ML INSULN.PEN SQ ×4 (08:03→22:45)
[2017-08-29] MEDS: Aspirin E.C. 81 MG Tablet PO (08:04)
[2017-08-29] MEDS: Glucerna Shake 120 ML LIQUID PO ×3 (10:32→22:44)
[2017-08-29] MEDS: Tolterodine Tartrate 2 MG CAP.SA PO (10:33)
[2017-08-29] MEDS: Pantoprazole Sodium 40 MG Tablet PO (10:33)
[2017-08-29] MEDS: Enoxaparin 30 MG/0.3 ML Syringe SC (10:33)
[2017-08-29] MEDS: Isosorbide Mononitrate 30 MG Tablet PO (10:33)
[2017-08-29] MEDS: Metoprolol Tartrate 25 MG Tablet PO ×2 (10:33→22:46)
[2017-08-29] MEDS: Lisinopril 20 MG Tablet PO (10:34)
[2017-08-29 10:46] LABS: Bedside Glucose 406 mg/dL (70-110)
--- NOTE | 2017-08-29 11:24 | PN_ITS ---
Patient Problems: Active and Suspected Problems (Last Reviewed 08/25/17 @ 17:39 by Yuriy Browning DO) CVA (cerebral vascular accident) (Acute) Aphasia (Acute) Subjective: Patient has been accepted to the inpatient rehab unit to continue with her recuperation however decision to discharge patient to the inpatient rehab unit has been placed on hold in view of patient significant hyperglycemia. Adjustments were made to her insulin regimen Objective: GENERAL: cooperative and in no apparent distress. HEENT: Clear conjunctiva, moist oral mucosa NECK; supple, normal thyroid, no distended JVD. CHEST: Clear to auscultation bilaterally, HEART: Regular S1 S2, no audible murmurs ABDOMEN: soft, non-tender, normoactive bowel sounds, RECTAL: deferred EXTREMITIES: No edema, no clubbing, no cyanosis. 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 signs SKIN: No Rash Vitals/I&O's: Vital Signs Temp Pulse Resp BP Pulse Ox 97.9 F 84 18 146/97 H 96 08/29/17 08:05 08/29/17 10:33 08/29/17 08:05 08/29/17 10:33 08/29/17 08:05 Oxygen Flow Rate (L/min) 2 Oxygen Delivery Method Room Air Weight: 69.7 kg Body Mass Index (BMI) 27.2 Intake and Output for Last 24 Hours 08/27/17 08/28/17 08/29/17 23:59 23:59 23:59 Intake Total 1206 / 1206 600 / 600 500 / 500 Output Total 750 / 750 425 / 425 400 / 400 Balance 456 / 456 175 / 175 100 / 100 Laboratory Results 08/28/17 11:43: POC Glucose > 500 H* 08/28/17 11:52: Glucose Cancelled 08/28/17 13:00: Glucose 576 H* 08/28/17 16:34: POC Glucose 281 H 08/28/17 21:17: POC Glucose 188 H 08/29/17 06:10: Sodium 137, Potassium 4.0, Chloride 104, Carbon Dioxide 24.0, Anion Gap 9, BUN 30 H, Creatinine 1.58 H, Estim Creat Clear Calc 23.88, Est GFR (MDRD) Af Amer 41 L, Est GFR (MDRD) Non-Af 33 L, BUN/Creatinine Ratio 19.0, Glucose 332 H, Calcium 8.6 08/29/17 06:51: POC Glucose 340 H 08/29/17 10:39: POC Glucose 406 H Current Medications Acetaminophen (Tylenol) 650 mg PO Q6H PRN PRN PRN Reason: Mild Pain (1-3)/Temp > 100.7 F Aspirin (Ecotrin) 81 mg PO DAILY@0800 [facility] Last Admin: 08/29/17 08:04 Dose: 81 mg Atorvastatin Calcium (Lipitor) 40 mg PO QHS [facility] Last Admin: 08/28/17 21:21 Dose: 40 mg Cholecalciferol (Vitamin D) 2,000 unit PO DAILY [facility] Last Admin: 08/29/17 10:33 Dose: 2,000 unit Dextrose (D50w Syringe) 0 gm IV X1 PRN; Protocol PRN Reason: Hypoglycemia Enoxaparin Sodium (Lovenox) 30 mg SC DAILY@1000 [facility] Last Admin: 08/29/17 10:33 Dose: 30 mg Glucagon () 1 mg IM .X1 PRN PRN Reason: Hypoglycemia Hydralazine HCl (Apresoline) 50 mg PO TID [facility] Last Admin: 08/29/17 05:00 Dose: 50 mg Insulin Glargine (Lantus (Bkc)) 30 units SC X1 ONE Stop: 08/29/17 12:46 Insulin Glargine (Lantus (Bkc)) 50 units SC BID [facility] Last Admin: 08/29/17 10:43 Dose: 50 u Insulin Human Lispro (Humalog Kwikpen (Bkc)) 20 unit SC TIDAC [facility] Last Admin: 08/29/17 10:40 Dose: 20 u Insulin Human Lispro (Humalog Kwikpen (Bkc)) 0 unit SQ ACHS [facility] PRN Reason: Protocol Last Admin: 08/29/17 10:41 Dose: 14 u Isosorbide Mononitrate (Imdur) 30 mg PO DAILY [facility] Last Admin: 08/29/17 10:33 Dose: 30 mg Levothyroxine Sodium (Synthroid) 88 mcg PO DAILY@0600 [facility] Last Admin: 08/29/17 05:00 Dose: 88 mcg Lisinopril (Zestril) 20 mg PO DAILY [facility] Last Admin: 08/29/17 10:34 Dose: 20 mg Magnesium Hydroxide (Milk Of Magnesia) 30 ml PO DAILY PRN PRN Reason: Constipation Metoprolol Tartrate (Lopressor (Beta Pancho)) 25 mg PO BID [facility] Last Admin: 08/29/17 10:33 Dose: 25 mg Nutritional Formula (Lactose Free) (Glucerna Shake) 120 ml PO 4X/DAY [facility] Last Admin: 08/29/17 10:32 Dose: 120 ml Ondansetron HCl (Zofran) 4 mg IV Q8H PRN PRN PRN Reason: NAUSEA Pantoprazole Sodium (Protonix) 40 mg PO DAILY [facility] Last Admin: 08/29/17 10:33 Dose: 40 mg Sodium Chloride () 5 - 30 ml IV UD PRN PRN Reason: SALINE FLUSH Tolterodine Tartrate (Detrol La) 2 mg PO DAILY [facility] Last Admin: 08/29/17 10:33 Dose: 2 mg Medical Necessity - Tobacco Use Smoking Status: Never smoker Tobacco Use: Non-smoker Assessment/Plan All Active Problems (Last Reviewed 08/25/17 @ 17:39 by Yuriy Browning DO) CVA (cerebral vascular accident) (Acute) Aphasia (Acute) History of knee replacement (Resolved) Hx of tonsillectomy (Resolved) Hx of cholecystectomy (Resolved) H/O: hysterectomy (Resolved) History of lumbar surgery (Resolved) Diarrhea (Acute) Abdominal pain (Acute) Lactic acidosis (Acute) Dehydration (Acute) Hyperkalemia (Resolved) Third nerve palsy (Resolved) Patient is a 81 year old lady with past medical history significant for hypertension, diabetes mellitus type 2, dyslipidemia, was brought to the emergency department on account of patient having difficulty finding words and not acting right according to the . There was a high suspicion of possible acute ischemic stroke admitted to monitored bed for subsequent management. NIH on admission was assessed to be 2. An MRI could not be performed in view of patient having pain pump. 1. Suspected acute ischemic stroke. Patient has been admitted to monitored bed where she is currently undergoing evaluation including every 4 neuro checks , repeat CT, 2D echo, patient has been managed per protocol with antiplatelets, statin therapy, with consultation placed to neurology 2. Diabetes mellitus type 2 uncontrolled with complications including hyperglycemia as well as nephropathy. Did adjust patient regimen adding scheduled long-acting and pre-meal insulin in addition to sliding scale correction factor. 3. Chronic kidney disease stage III patient kidney function appears to be at baseline 4. Hypertension-blood pressure controlled, home medications continued with dose adjustment as needed 5. Dyslipidemia-patient is on statin therapy, continued at home dose 7. Hypothyroidism-patient is on levothyroxine home dose continued 8. DVT prophylaxis SC Lovenox; dose adjusted for kidney function 9. 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 Patient is on dual antiplatelet therapy for now with plans for patient to be referred to slow surgery on discharge. Did discuss with patient and regarding the Atherosclerotic plaque at the origin of the left internal carotid artery with greater than 70%; preference is to follow-up with Dr. Wooten who is out till September 08, 2017 this was also discussed with Dr. Martinez with neurology Code Visit Inpatient E&M: 53169 Subs Hosp L2
--- NOTE | 2017-08-29 11:24 | CASEMGMT ---
Addendum entered by Miriam Cevallos 08/29/17 13:40: Per Katerina in rehab patient's insurance is okay with patient going to the rehab unit over the weekend if she is ready. Green sheet on the chart. Miriam WILKES Original Note: SW spoke with Katerina in the rehab unit. SW told her the physician will send patient today only if her blood sugars get to the 200's. SW asked if she would still be able to come over the weekend if her blood sugars did come down. She said that is fine and she would notify insurance. SW to follow for d/c to rehab unit. Plan: [facility] 4th floor rehab unit pending patient's blood sugars coming down to the 200's. Miriam WILKES
[2017-08-29 13:15] LABS: Bedside Glucose 433 mg/dL (70-110)
[2017-08-29 15:16] LABS: Bedside Glucose 314 mg/dL (70-110)
[2017-08-29 16:56] LABS: Bedside Glucose 305 mg/dL (70-110)
[2017-08-29] MEDS: Atorvastatin Calcium 40 MG Tablet PO (22:46)
[2017-08-30] VITALS (7 sets, daily range): BP systolic 154–174; BP diastolic 69–76; PULSE 74–93; RESP 16–18; TEMP 36.6–37.1; O2SAT 93–96
[2017-08-30 00:30] LABS: Bedside Glucose 293 mg/dL (70-110)
[2017-08-30] MEDS: hydrALAZINE 50 MG Tablet PO (05:51)
[2017-08-30] MEDS: Levothyroxine 88 MCG Tablet PO (05:51)
[2017-08-30 06:51] LABS: Bedside Glucose 353 mg/dL (70-110)
[2017-08-30 07:01] LABS: Bedside Glucose 349 mg/dL (70-110)
[2017-08-30] MEDS: Insulin Lispro 100 UNIT/ML INSULN.PEN 20 UNIT SC (07:44)
[2017-08-30] MEDS: Insulin Lispro 100 UNIT/ML INSULN.PEN SQ (07:45)
[2017-08-30] MEDS: Aspirin E.C. 81 MG Tablet PO (07:47)
--- NOTE | 2017-08-30 09:00 | DCINST_ITS ---
- Discharge Diagnoses Current Active Problems: Current Active and Chronic Problems (Last Reviewed 08/25/17 @ 17:39 by Yuriy Browning DO) CVA (cerebral vascular accident) (Acute) Aphasia (Acute) You will use the following diet at home:: Calorie/Carbohydrate Controlled ( specify 1200, 1400, etc) - 1800 ginette, Cardiac Your food should be the consistency of: Regular Discharge Activity: Return to Normal Activity Weight Bearing Status: Weight bearing as tolerated Call your doctor if you observe: Fever of 101 or Higher, Shortness of breath, Dizziness, Fainting spells, Chest pain, Increased palpitations (irregular heartbeat), Uncontrolled pain Allergies/Adverse Reactions: Allergies latex Allergy (Verified 07/29/17 14:47) Rash adhesive tape Adverse Reaction (Verified 07/29/17 14:47) Rash Medications to take at Discharge Aspirin E.C. [Ecotrin] 81 mg PO DAILY@0800 #30 tab 04/24/16 Gabapentin [Neurontin] 300 mg PO BID 05/09/16 Lansoprazole [Prevacid] 30 mg PO DAILY 05/09/16 cholecalciferol (vitamin D3) 1,000 unit tablet 2,000 unit PO QDAY tab 04/21/17 hydralazine 50 mg tablet 50 mg PO TID 90 Days #270 04/22/17 lisinopril 20 mg tablet 20 mg PO DAILY 90 Days #90 04/22/17 Levothyroxine [Synthroid] 88 mcg PO DAILY 04/25/17 atorvastatin 40 mg tablet 40 mg PO DAILY #90 tab 06/30/17 metoprolol tartrate 25 mg tablet 25 mg PO BID #180 tab 08/04/17 Insulin Lispro [Humalog KwikPen] See Protocol SC ACHS 08/25/17 Isosorbide Mononitrate [Isosorbide Mononitrate ER] 30 mg PO DAILY 08/25/17 Metformin(XR) [Glucophage Xr] 1,000 mg PO BID 08/25/17 Oxybutynin Chloride [Ditropan Xl] 10 mg PO DAILY 08/25/17 morphine SR tablet [Ms Contin] 15 mg PO DAILY 08/25/17 Insulin Glargine [Lantus SoloStar Pen] 50 units SC BID #1 pen 08/30/17 Insulin Lispro [Humalog KwikPen] 20 unit SC TIDAC #1 insuln.pen 08/30/17 The following prescriptions were given: Insulin Lispro [Humalog KwikPen] 20 unit SC TIDAC #1 insuln.pen Insulin Glargine [Lantus SoloStar Pen] 50 units SC BID #1 pen Primary Care Physician: Fernando Kong MD [Primary Care Provider] - Please follow up with your Primary Care Physician in: 2 weeks. Test Results: Test results from this visit will be discussed in further detail at your follow- up appointment, if applicable. Please Follow Up With: Feng Martinez MD When: 2-3 weeks.
[2017-08-30] MEDS: Glucerna Shake 120 ML LIQUID PO (09:05)
[2017-08-30] MEDS: Tolterodine Tartrate 2 MG CAP.SA PO (09:06)
[2017-08-30] MEDS: Isosorbide Mononitrate 30 MG Tablet PO (09:06)
[2017-08-30] MEDS: Metoprolol Tartrate 25 MG Tablet PO (09:07)
[2017-08-30] MEDS: Lisinopril 20 MG Tablet PO (09:07)
[2017-08-30] MEDS: Pantoprazole Sodium 40 MG Tablet PO (09:07)
--- NOTE | 2017-08-30 11:31 | PCM.DC.SUM ---
Discharge Date and Diagnosis Date of Admission: 08/25/17 Date of Discharge: 08/30/17 - Primary Discharge Diagnosis #1 transient expressive aphasia, suspected stroke. #2 left internal carotid artery stenosis greater than 70%. #3 uncontrolled type 2 diabetes mellitus. - Secondary Discharge Diagnosis Chronic Problems (Last Reviewed 08/25/17 @ 17:39 by Yuriy Browning DO) Chronic renal failure, stage 3 (moderate) (Chronic) Hyperlipidemia (Chronic) Other fdc (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 (Chronic) TIA (transient ischemic attack) (Chronic) Angina pectoris (Chronic) Obstructive sleep apnea (Chronic) 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) CABG X 3, SOTO to LAD, SVG to 1st diagonal & SVG [facility] obtuse marginal @ [facility] 04/08/16 Postlaminectomy syndrome of lumbar region (Chronic) Disc degeneration, lumbosacral (Chronic) Lumbosacral radiculopathy (Chronic) Diabetes mellitus, type 2 (Chronic) Hypertension (Chronic) History of stroke (Chronic) Fibromyalgia (Chronic) GERD (Chronic) Hypothyroidism (Chronic) Renal cancer (Chronic) CAD (coronary artery disease) (Chronic) CABG X 3, SOTO to LAD, SVG to 1st diagonal & SVG to obtuse marginal @ [facility] 04/08/16 Hospital Course and Treatment Imaging Results: Clinical Impression(s) from Imaging Studies Brain CT 08/25/17 13:54 IMPRESSION: Chronic involutional changes of the brain. Mucosal thickening of the posterior aspect of the right sphenoid sinus. Electronically Signed: Sai Calhoun MD at 14:21 EDT Tel [phone], Service support , Brain CT 08/26/17 05:55 IMPRESSION: Chronic involutional changes of the brain. Small, old right cerebellar infarction. No demonstrated acute intracranial process. Electronically Signed: Kalyan Germain MD at 7:12 EDT , Service support , Brain CT 08/26/17 11:51 IMPRESSION: Chronic involutional changes of the brain. There has been no change since prior study. Electronically Signed: Sai Calhoun MD at 12:14 EDT Tel [phone], Service support , Head CTA 08/26/17 13:46 IMPRESSION: Normal [place] without a demonstrated aneurysm or hemodynamically significant stenosis. 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 Electronically Signed: Sai Calhoun MD at 14:49 EDT Tel [phone], Service support , Dr. Martinez, neurology. Operations: None Procedures: 2-D Echocardiogram, EKG Summary of Care Provided: Patient seen and examined on the day of discharge and appeared to be stable to be discharged home. She denies any complaints. She denies any focal deficit. Her speech is back to normal. Her blood sugar has been in the range of 300s. Her vital signs are stable. - Physical Exam General: Alert, Oriented x3, Cooperative, No apparent distress. HEENT: Atraumatic, PERRLA, EOMI. Neck: Supple, No JVD, Negative Carotid Bruits, Trachea Midline, Thyroid Normal. Lungs: Clear to auscultation, Normal air movement, No rhonchi, No wheeze, No rales. Cardiovascular: Regular rate, Regular Rhythm, Normal S1, Normal S2, PMI Normal. Abdomen: Bowel Sounds Present, Soft, Non Tender, Non-Distended, No Hepato-splenomegaly. Extremities: No clubbing, No cyanosis, No edema Skin: No rashes, No breakdown Neurological: Cranial nerves are intact, normal power and tone of all limbs. Neuro grossly intact Vital Signs are stable. Hospital course: The patient is a 81 year old F admitted because of expressive aphasia. She underwent full stroke workup except MRI brain which could not be done because she has pain pump inserted. CT scan brain on admission revealed no acute infarction or hemorrhage. CT scan brain repeated 1 day after admission and revealed small old right cerebellar infarct without evidence of acute infarction or hemorrhage. Another CT scan brain done and again showed no acute findings. CTA of the head revealed no hemodynamically significant stenosis or vascular disease. CTA of the neck revealed atherosclerotic plaque at the origin of the left internal carotid artery with greater than 70% stenosis. 2D echocardiogram revealed ejection fraction 65%, stage I diastolic dysfunction, pulmonary artery pressure of 35 and no evidence of significant valvular disease. Patient was treated with aspirin, Plavix and statins. MRI brain was not because she had pain pump inserted. Neurology consulted and agreed with the above workup plan. Acute stroke cannot be confirmed plaquing MRI brain. Regarding the left internal carotid artery stenosis and after discussion with the patient and her family, decision was made to have the patient follow-up with Dr. Wooten as outpatient. During this hospital stay, her blood sugar has been elevated and has been up to 500s. Patient mentioned that usually at home, her blood sugars are in the 300s. Her doctor have her on Lantus sliding scale which is very unusual. During this hospital stay, she was started on Lantus 50 units twice daily, Humalog pre-meal insulin as well as sliding scale and her blood sugar remained in the range of 300s. Her hemoglobin A1c was 10.3. Patient discharged to inpatient rehab unit in a stable medical condition, discharged on aspirin, Plavix and statins, discharged on Lantus insulin twice daily, pre-meal Humalog 3 times daily as well as sliding scale, continued with her other chronic home medication without any changes, plan to follow-up with PCP in 2 week and follow-up with neurology in 2-3 weeks. This note was generated with [employer] dictation software. It may contain incorrect words, spelling, and punctuation that were not noted in checking the note before signing. Discharge Activity: Return to Normal Activity Weight Bearing Status: Weight bearing as tolerated Call your doctor if you observe: Fever of 101 or Higher, Shortness of breath, Dizziness, Fainting spells, Chest pain, Increased palpitations (irregular heartbeat), Uncontrolled pain Home Medications: Medications to take at Discharge Gabapentin [Neurontin] 300 mg PO BID 05/09/16 Lansoprazole [Prevacid] 30 mg PO DAILY 05/09/16 cholecalciferol (vitamin D3) 1,000 unit tablet 1,000 unit PO BID tab 04/21/17 hydralazine 50 mg tablet 50 mg PO TID 90 Days #270 04/22/17 lisinopril 20 mg tablet 20 mg PO DAILY 90 Days #90 04/22/17 Levothyroxine [Synthroid] 88 mcg PO DAILY 04/25/17 atorvastatin 40 mg tablet 40 mg PO DAILY #90 tab 06/30/17 metoprolol tartrate 25 mg tablet 25 mg PO BID #180 tab 08/04/17 Insulin Lispro [Humalog KwikPen] See Protocol SC ACHS 08/25/17 Isosorbide Mononitrate [Isosorbide Mononitrate ER] 30 mg PO DAILY 08/25/17 Metformin(XR) [Glucophage Xr] 1,000 mg PO BID 08/25/17 Oxybutynin Chloride [Ditropan Xl] 10 mg PO DAILY 08/25/17 morphine SR tablet [Ms Contin] 15 mg PO DAILY 08/25/17 Amlodipine [Norvasc] 5 mg PO DAILY 08/30/17 Aspirin E.C. [Ecotrin] 81 mg PO DAILY@0800 08/30/17 Clopidogrel Bisulfate [Plavix] 75 mg PO DAILY 08/30/17 Insulin Glargine [Lantus SoloStar Pen] 50 units SC BID 08/30/17 Insulin Lispro [Humalog KwikPen] 20 unit SC TIDAC 08/30/17 Primary Care Physician: Fernando Kong MD [Primary Care Provider] - Please follow up with your Primary Care Physician in: 2 weeks. Please Follow Up With: Feng Martinez MD When: 2-3 weeks- Please call to schedule appt Please Follow Up With: Fernando Kong MD When: 2 weeks- Please call to schedule appt Disposition: Inpt Rehab Unit/Facility Minutes spent on discharge:: 32 Patient Condition:: Stable Medical Necessity - Tobacco Use Smoking Status: Never smoker Tobacco Use: Non-smoker Meaningful Use Info Meaningful Use Diagnoses (Choose all that apply): None applicable Code Visit Inpatient E&M: 36671 Disch Hosp
--- NOTE | 2017-08-30 11:41 | DS.PCM_ITS ---
Discharge Date and Diagnosis Date of Admission: 08/25/17 Date of Discharge: 08/30/17 - Primary Discharge Diagnosis #1 transient expressive aphasia, suspected stroke. #2 left internal carotid artery stenosis greater than 70%. #3 uncontrolled type 2 diabetes mellitus. 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) CABG X 3, SOTO to LAD, SVG to 1st diagonal & SV[facility] obtuse marginal [facility] Postlaminectomy syndrome of lumbar region (Chronic) Disc degeneration, lumbosacral (Chronic) Lumbosacral radiculopathy (Chronic) Diabetes mellitus, type 2 (Chronic) Hypertension (Chronic) History of stroke (Chronic) Fibromyalgia (Chronic) GERD (Chronic) Hypothyroidism (Chronic) Renal cancer (Chronic) CAD (coronary artery disease) (Chronic) CABG X 3, SOTO to LAD, SVG to 1st diagonal & SVG to obtuse marginal @ [facility] Hospital Course and Treatment Imaging Results: Clinical Impression(s) from Imaging Studies Brain CT 08/25/17 13:54 IMPRESSION: Chronic involutional changes of the brain. Mucosal thickening of the posterior aspect of the right sphenoid sinus. Electronically Signed: Sai Calhoun MD at 14:21 EDT Tel [phone], Service support , Brain CT 08/26/17 05:55 IMPRESSION: Chronic involutional changes of the brain. Small, old right cerebellar infarction. No demonstrated acute intracranial process. Electronically Signed: Kalyan Germain MD at 7:12 EDT , Service support , Brain CT 08/26/17 11:51 IMPRESSION: Chronic involutional changes of the brain. There has been no change since prior study. Electronically Signed: Sai Calhoun MD at 12:14 EDT Tel [phone], Service support , Head CTA 08/26/17 13:46 IMPRESSION: Normal [place] without a demonstrated aneurysm or hemodynamically significant stenosis. Electronically Signed: Sai Calhoun MD at 14:46 EDT Tel [phone], Service support , Neck CTA 08/26/17 13:46 IMPRESSION: Atherosclerotic plaque at the origin of the left internal carotid artery with greater than 70% stenosis. Electronically Signed: Sai Calhoun MD at 14:49 EDT Tel [phone], Service support , Dr. Martinez, neurology. Operations: None Procedures: 2-D Echocardiogram, EKG Summary of Care Provided: Patient seen and examined on the day of discharge and appeared to be stable to be discharged home. She denies any complaints. She denies any focal deficit. Her speech is back to normal. Her blood sugar has been in the range of 300s. Her vital signs are stable. - Physical Exam General: Alert, Oriented x3, Cooperative, No apparent distress. HEENT: Atraumatic, PERRLA, EOMI. Neck: Supple, No JVD, Negative Carotid Bruits, Trachea Midline, Thyroid Normal. Lungs: Clear to auscultation, Normal air movement, No rhonchi, No wheeze, No rales. Cardiovascular: Regular rate, Regular Rhythm, Normal S1, Normal S2, PMI Normal. Abdomen: Bowel Sounds Present, Soft, Non Tender, Non-Distended, No Hepato- splenomegaly. Extremities: No clubbing, No cyanosis, No edema Skin: No rashes, No breakdown Neurological: Cranial nerves are intact, normal power and tone of all limbs. Neuro grossly intact Vital Signs are stable. Hospital course: The patient is a 81 year old F admitted because of expressive aphasia. She underwent full stroke workup except MRI brain which could not be done because she has pain pump inserted. CT scan brain on admission revealed no acute infarction or hemorrhage. CT scan brain repeated 1 day after admission and revealed small old right cerebellar infarct without evidence of acute infarction or hemorrhage. Another CT scan brain done and again showed no acute findings. CTA of the head revealed no hemodynamically significant stenosis or vascular disease. CTA of the neck revealed atherosclerotic plaque at the origin of the left internal carotid artery with greater than 70% stenosis. 2D echocardiogram revealed ejection fraction 65%, stage I diastolic dysfunction, pulmonary artery pressure of 35 and no evidence of significant valvular disease. Patient was treated with aspirin, Plavix and statins. MRI brain was not because she had pain pump inserted. Neurology consulted and agreed with the above workup plan. Acute stroke cannot be confirmed plaquing MRI brain. Regarding the left internal carotid artery stenosis and after discussion with the patient and her family, decision was made to have the patient follow-up with Dr. Wooten as outpatient. During this hospital stay, her blood sugar has been elevated and has been up to 500s. Patient mentioned that usually at home, her blood sugars are in the 300s. Her doctor have her on Lantus sliding scale which is very unusual. During this hospital stay, she was started on Lantus 50 units twice daily, Humalog pre-meal insulin as well as sliding scale and her blood sugar remained in the range of 300s. Her hemoglobin A1c was 10.3. Patient discharged to inpatient rehab unit in a stable medical condition, discharged on aspirin, Plavix and statins, discharged on Lantus insulin twice daily, pre-meal Humalog 3 times daily as well as sliding scale, continued with her other chronic home medication without any changes, plan to follow-up with PCP in 2 week and follow-up with neurology in 2-3 weeks. This note was generated with [employer] dictation software. It may contain incorrect words, spelling, and punctuation that were not noted in checking the note before signing. Discharge Activity: Return to Normal Activity Weight Bearing Status: Weight bearing as tolerated Call your doctor if you observe: Fever of 101 or Higher, Shortness of breath, Dizziness, Fainting spells, Chest pain, Increased palpitations (irregular heartbeat), Uncontrolled pain Home Medications: Medications to take at Discharge Gabapentin [Neurontin] 300 mg PO BID 05/09/16 Lansoprazole [Prevacid] 30 mg PO DAILY 05/09/16 cholecalciferol (vitamin D3) 1,000 unit tablet 1,000 unit PO BID tab 04/21/17 hydralazine 50 mg tablet 50 mg PO TID 90 Days #270 04/22/17 lisinopril 20 mg tablet 20 mg PO DAILY 90 Days #90 04/22/17 Levothyroxine [Synthroid] 88 mcg PO DAILY 04/25/17 atorvastatin 40 mg tablet 40 mg PO DAILY #90 tab 06/30/17 metoprolol tartrate 25 mg tablet 25 mg PO BID #180 tab 08/04/17 Insulin Lispro [Humalog KwikPen] See Protocol SC ACHS 08/25/17 Isosorbide Mononitrate [Isosorbide Mononitrate ER] 30 mg PO DAILY 08/25/17 Metformin(XR) [Glucophage Xr] 1,000 mg PO BID 08/25/17 Oxybutynin Chloride [Ditropan Xl] 10 mg PO DAILY 08/25/17 morphine SR tablet [Ms Contin] 15 mg PO DAILY 08/25/17 Amlodipine [Norvasc] 5 mg PO DAILY 08/30/17 Aspirin E.C. [Ecotrin] 81 mg PO DAILY@0800 08/30/17 Clopidogrel Bisulfate [Plavix] 75 mg PO DAILY 08/30/17 Insulin Glargine [Lantus SoloStar Pen] 50 units SC BID 08/30/17 Insulin Lispro [Humalog KwikPen] 20 unit SC TIDAC 08/30/17 Primary Care Physician: Fernando Kong MD [Primary Care Provider] - Please follow up with your Primary Care Physician in: 2 weeks. Please Follow Up With: Feng Martinez MD When: 2-3 weeks- Please call to schedule appt Please Follow Up With: Fernando Kong MD When: 2 weeks- Please call to schedule appt Disposition: Inpt Rehab Unit/Facility Minutes spent on discharge:: 32 Patient Condition:: Stable Medical Necessity - Tobacco Use Smoking Status: Never smoker Tobacco Use: Non-smoker Meaningful Use Info Meaningful Use Diagnoses (Choose all that apply): None applicable Code Visit Inpatient E&M: 97722 Disch Hosp
== END 2017-08-30 10:32 | DRG 64 ==
LOC: ED 14:54 → PCU 17:43
PROVIDERS: Internal Medicine; Psychiatry & Neurology Neurology; Emergency Provider Emergency Medicine; Family Provider Family Medicine; PCP Family Medicine; Visit Provider Hospitalist
DX: I63.9 Cerebral infarction, unspecified (principal); G93.41 Metabolic encephalopathy; E11.65 Type 2 diabetes mellitus with hyperglycemia; I65.22 Occlusion and stenosis of left carotid artery; I12.9 Hypertensive chronic kidney disease with stage 1 through stage 4 chronic kidney disease, or unspecified chronic kidney disease; N18.3 Chronic kidney disease, stage 3 (moderate); K21.9 Gastro-esophageal reflux disease without esophagitis; G47.33 Obstructive sleep apnea (adult) (pediatric); I25.10 Atherosclerotic heart disease of native coronary artery without angina pectoris; E03.9 Hypothyroidism, unspecified; M79.7 Fibromyalgia; E78.5 Hyperlipidemia, unspecified; M96.1 Postlaminectomy syndrome, not elsewhere classified; E11.22 Type 2 diabetes mellitus with diabetic chronic kidney disease; R47.01 Aphasia; R29.702 NIHSS score 2; Z95.1 Presence of aortocoronary bypass graft; Z91.040 Latex allergy status; Z79.82 Long term (current) use of aspirin; Z79.4 Long term (current) use of insulin
CPT/HCPCS: 36415; 70450; 70496; 70498; 80048; 80061; 81001; 82009; 82140; 82947; 82962; 83036; 83735; 85025; 85610; 85730; 92507; 92523; 93005; 93306; 93880; 97112; 97162; 97165; 97530; 97535; 99285; Q9967

== ENCOUNTER 2017-08-30 10:37 | Inpatient (IN) | payer MEDICARE, SELFPAY ==
[2017-08-30] VITALS (7 sets, daily range): BP systolic 129–149; BP diastolic 66–88; PULSE 94–97; RESP 17–18; TEMP 36.6–36.7; O2SAT 92–93; BMI 26.6; BMI 26.7
[2017-08-30] MEDS: Insulin Lispro 100 UNIT/ML INSULN.PEN 20 UNIT SC ×2 (13:11→17:06)
[2017-08-30 13:17] LABS: Glucose 471 mg/dL (74-106)
[2017-08-30] MEDS: hydrALAZINE 50 MG Tablet PO ×2 (15:44→21:45)
--- NOTE | 2017-08-30 15:54 | PCM.HP.STD ---
Problem List (1) Debility Status: Acute (2) Chronic renal failure, stage 3 (moderate) Status: Chronic (3) Hyperlipidemia Status: Chronic Qualifiers: (4) TIA (transient ischemic attack) Status: Chronic (5) Angina pectoris Status: Chronic (6) Obstructive sleep apnea Status: Chronic (7) S/P coronary artery bypass graft x 3 Status: Chronic Comment: CABG X 3, SOTO to LAD, SVG to 1st diagonal & SVG to obtuse marginal @ [facility] 04/08/16 (8) Postlaminectomy syndrome of lumbar region Status: Chronic (9) Disc degeneration, lumbosacral Status: Chronic (10) Lumbosacral radiculopathy Status: Chronic (11) Diabetes mellitus, type 2 Status: Chronic Qualifiers: (12) Hypertension Status: Chronic Qualifiers: (13) History of stroke Status: Chronic (14) Fibromyalgia Status: Chronic (15) GERD Status: Chronic (16) Hypothyroidism Status: Chronic (17) Renal cancer Status: Chronic (18) CAD (coronary artery disease) Status: Chronic Qualifiers: Comment: CABG X 3, SOTO to LAD, SVG to 1st diagonal & SVG to obtuse marginal @ [facility] 04/08/16 History of Present Illness Date of Admission: 08/30/17 Chief Complaint: Debility post TIA, uncontrolled DM The patient is a 81 year old CF with PMH HTN, HLD, DM, H/O TIA, CAD s/p CABG, FRANKLIN, H/O renal cancer, CKD, H/O Pain pump implantation admitted to [facility] with debility s/p aphasia and uncontrolled DM, for > 3 hrs therapy daily, with the goal of returning home at or near her prior level of functional independence. Patient was admitted with expressive aphasia on 08/25/17 to [facility], was not a tpa candidate since was out of window at that time per documentation, MRI brain could not be obtained due to pain pump (the details of which are not available at present), but per patient the pain pump was placed about [address] Vergara ( and per patient description could be a spinal stimulator), 3 CT head done after inpatient admission did not show any acute stroke, CTA head/neck done on admission showed greater than 70% stenosis of the left ICA but carotid ultrasound showed <50% stenosis, vascular surgery consult with Dr. Cebul is pending at present, patient's hospital course was complicated by uncontrolled blood sugars in the range of 500, and was treated with insulin drip, and the blood sugar at the time of transferring to rehab was more than 350, which was deemed reasonable by Dr. Dewitt (hospitalist), given she has been having this high blood sugar in the recent past few months and per patient it was in the high range for the past 2 months since the pain pump/spinal stimulator implantation. Prior to that per patient her Blood sugars were not this high and was around 100-150s, per patient she sees an electric meter installer helper as outpatient. She lives with her , denies using cane or walker to ambulate, denies any frequent falls, does drive and has 1 step getting into the house and house is on one level. At present denies any aphasia, [place]AD[place]O, visual disturbances, sensory loss, focal motor weakness, chest pain, fever, or dyspnea. 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) CABG X 3, SOTO to LAD, SVG to 1st diagonal & SVG to obtuse marginal @ summa 04/08/16 Postlaminectomy syndrome of lumbar region (Chronic) Disc degeneration, lumbosacral (Chronic) Lumbosacral radiculopathy (Chronic) Diabetes mellitus, type 2 (Chronic) Hypertension (Chronic) History of stroke (Chronic) Fibromyalgia (Chronic) GERD (Chronic) Hypothyroidism (Chronic) Renal cancer (Chronic) CAD (coronary artery disease) (Chronic) CABG X 3, SOTO to LAD, SVG to 1st diagonal & SVG to obtuse marginal @ [facility] 04/08/16 Medical History: Medical History (Last Reviewed 08/25/17 @ 17:39 by Yuriy Browning DO) Hyperlipidemia (Chronic) E78.5 Obstructive sleep apnea (Chronic) G47.33 Diabetes mellitus, type 2 (Chronic) E11.9 Hypertension (Chronic) I10 History of stroke (Chronic) Z86.73 CAD (coronary artery disease) (Chronic) I25.10 CABG X 3, SOTO to LAD, SVG to 1st diagonal & SVG to obtuse marginal @ summa 04/08/16 Chest pain R07.9 Dyspnea on exertion R06.09 Edema R60.9 Fatigue R53.83 Shortness of breath R06.02 Allergies latex Allergy (Verified 07/29/17 14:47) Rash adhesive tape Adverse Reaction (Verified 07/29/17 14:47) Rash Home Medications: Ambulatory Orders Medication Instructions Recorded Gabapentin [Neurontin] 300 mg PO BID 05/09/16 Lansoprazole [Prevacid] 30 mg PO DAILY 05/09/16 cholecalciferol (vitamin D3) 1,000 1,000 unit PO BID tab 04/21/17 unit tablet hydralazine 50 mg tablet 50 mg PO TID 90 Days #270 04/22/17 lisinopril 20 mg tablet 20 mg PO DAILY 90 Days #90 04/22/17 Levothyroxine [Synthroid] 88 mcg PO DAILY 04/25/17 atorvastatin 40 mg tablet 40 mg PO DAILY #90 tab 06/30/17 metoprolol tartrate 25 mg tablet 25 mg PO BID #180 tab 08/04/17 Insulin Lispro [Humalog KwikPen] See Protocol SC ACHS 08/25/17 Isosorbide Mononitrate [Isosorbide 30 mg PO DAILY 08/25/17 Mononitrate ER] Metformin(XR) [Glucophage Xr] 1,000 mg PO BID 08/25/17 Oxybutynin Chloride [Ditropan Xl] 10 mg PO DAILY 08/25/17 morphine SR tablet [Ms Contin] 15 mg PO DAILY 08/25/17 Amlodipine [Norvasc] 5 mg PO DAILY 08/30/17 Aspirin E.C. [Ecotrin] 81 mg PO DAILY@0800 08/30/17 Clopidogrel Bisulfate [Plavix] 75 mg PO DAILY 08/30/17 Insulin Glargine [Lantus SoloStar 50 units SC BID 08/30/17 Pen] Insulin Lispro [Humalog KwikPen] 20 unit SC TIDAC 08/30/17 Surgical History: Surgical History (Last Reviewed 08/25/17 @ 17:39 by Yuriy Browning DO) History of knee replacement (Resolved) Z96.659 Hx of tonsillectomy (Resolved) Z90.89 Hx of cholecystectomy (Resolved) Z90.49 H/O: hysterectomy (Resolved) Z90.710 History of lumbar surgery (Resolved) Z98.890 linda and screws 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) Z95.1 CABG X 3, SOTO to LAD, SVG to 1st diagonal & SVG to obtuse marginal @ [facility] 04/08/16 Surgical History: appendectomy, cholecystectomy, herniorrhaphy, hysterectomy, total knee arthroplasty, tonsillectomy, - - cryotherapy for kidney tumor Psychiatric History: No 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 CORRECTIONAL MANAGER History: No pertinent CORRECTIONAL MANAGER history Lives: Spouse/ Significant Other Smoking Status: Never smoker Alcohol: None Drugs: None - *Family History Maternal Family History: Family History (Last Reviewed 08/25/17 @ 17:39 by Yuriy Browning DO) Father Heart disease History Items: Diabetes, Heart Disease - age 95 Paternal Family History: Family History (Last Reviewed 08/25/17 @ 17:39 by Yuriy Browning DO) Father Heart disease History Items: Heart Disease - age 69 Review of Systems Constitutional: Reports: - - complete ROS negative except as documented in HPI VTE Information - Inpt Only VTE Present on Admission: No VTE Mechan Device Prophylaxis: SCD's, Thigh High JEFFREY Hose VTE Pharm Prophylaxis ordered?: Yes Patient Problems: Active and Suspected Problems (Last Reviewed 08/25/17 @ 17:39 by Yuriy Brownign DO) Debility (Acute) - Physical Exam General: Alert HEENT: Atraumatic Neck: Supple Lungs: Clear to auscultation Cardiovascular: Normal S1, Normal S2 Abdomen: Bowel Sounds Present Extremities: No cyanosis Skin: No rashes Musculoskeletal: No Tenderness to Palpation of Joints or Extremities Neurological: Cranial nerves II-XII grossly intact, Deep Tendon Reflexes 2+/4 and Symmetrical, Neuro grossly intact, Motor Exam 5/5 strength throughout, Muscle tone normal, Sensory exam intact to light touch and pain, Coordination normal Psych/Mental Status: Normal Affect Vital Signs Temp Pulse Resp BP Pulse Ox 97.9 F 97 18 129/88 H 93 08/30/17 10:50 08/30/17 15:44 08/30/17 10:50 08/30/17 15:44 08/30/17 10:50 Oxygen Delivery Method Room Air Weight: 70.45 kg Body Mass Index (BMI) 26.6 Finger Stick Blood Glucose 500 Intake and Output for Last 24 Hours 08/28/17 08/29/17 08/30/17 23:59 23:59 23:59 Intake Total 200 / 200 Balance 200 / 200 Laboratory Tests Past 24 Hrs 08/30/17 12:50 Glucose 471 H* Assessment/Plan All Active Problems (Last Reviewed 08/25/17 @ 17:39 by Yuriy Browning DO) CVA (cerebral vascular accident) (Acute) Aphasia (Resolved) Debility (Acute) History of knee replacement (Resolved) Hx of tonsillectomy (Resolved) Hx of cholecystectomy (Resolved) H/O: hysterectomy (Resolved) History of lumbar surgery (Resolved) Diarrhea (Acute) Abdominal pain (Acute) Lactic acidosis (Acute) Dehydration (Acute) Hyperkalemia (Resolved) Third nerve palsy (Resolved) The patient is a 81 year old CF with PMH HTN, HLD, DM, H/O TIA, CAD s/p CABG, FRANKLIN, H/O renal cancer, CKD, H/O Pain pump implantation, hypothyroidism admitted to [facility] with debility s/p aphasia and uncontrolled DM, for > 3 hrs therapy daily, with the goal of returning home at or near her prior level of functional independence. Patient was admitted with expressive aphasia on 08/25/17 to [facility], was not a tpa candidate since was out of window at that time per documentation, MRI brain could not be obtained due to pain pump (the details of which are not available at present), but per patient the pain pump was placed about [address] Vergara ( and per patient description could be a spinal stimulator), 3 CT head done after inpatient admission did not show any acute stroke, CTA head/neck done on admission showed greater than 70% stenosis of the left ICA but carotid ultrasound showed <50% stenosis, vascular surgery consult with Dr. Wooten is pending at present, patient's hospital course was complicated by uncontrolled blood sugars in the range of 500, and was treated with insulin drip, and the blood sugar at the time of transferring to rehab was more than 350, which was deemed reasonable by Dr. Dewitt (hospitalist), given she has been having this high blood sugar in the recent past few months and per patient it was in the high range for the past 2 months since the pain pump/spinal stimulator implantation. Prior to that per patient her Blood sugars were not this high and was around 100-150s, per patient she sees an electric meter installer helper as outpatient. She lives with her , denies using cane or walker to ambulate, denies any frequent falls, does drive and has 1 step getting into the house and house is on one level. At present denies any aphasia, [place]O, visual disturbances, sensory loss, focal motor weakness, chest pain, fever, or dyspnea. Plan -PT for gait stability -OT for ADLs -Bowel protocol -Analgesics per protocol -HTN- On amlodipine, lisinopril, metoprolol, and hydralazine, goal BP < 130/80 mmHg -HLD- on Lipitor 40 mg PO q hs -TIA- aphasia resolved, on dual AP with ASA/Plavix for 3 weeks then switch to single AP, on Lipitor. -Carotid stenosis-needs to see vascular surgery CECILY after discharge from Rehab, hospitalist tried to contact Dr. Wooten during inpatient but is on vacation -DM- Blood sugars are uncontrolled, has been greater than 350, is on Lantus 50 units BID, Humalog 20 units TIS and sliding scale insulin. discussed with Dr. Dewitt who discharged patient to rehab about the uncontrolled BS, per Dr. Dewitt her BS have been this high for al long time and will be very difficult to get it below 200s at present, discussed the need for close hospitalist monitoring to control the BS and he agrees with the same. Is on Metformin but pharmacy wants the same to be changed due to CKD and low creatinine clearance, will defer to hospitalist for further change in DM medications. IF BS goes over 500 then will need to transfer patient back to inpatient hospital setting. Will also obtain Endocrinology consult, if not possible then will need to get Endocrinology outpatient referral on Friday for better DM control -CAD- on ASA, statins and Isosorbide -Hypothyroidism-on Synthroid -Lumbosacral radiculopathy/degenerative disc disease- will obtain pain pump/?spinal stimulator implantation records from Dr. Vergara -GI/DVT prophylaxis- on Lovenox 30 mg SQ once daily, SCDs and JEFFREY hose thigh high -Fall precautions. -Further medical management per primary team. Code Visit Inpatient E&M: 45555 Init Hosp L3
--- NOTE | 2017-08-30 15:58 | HP.PCM_ITS ---
Problem List (1) Debility Status: Acute (2) Chronic renal failure, stage 3 (moderate) Status: Chronic (3) Hyperlipidemia Status: Chronic Qualifiers: (4) TIA (transient ischemic attack) Status: Chronic (5) Angina pectoris Status: Chronic (6) Obstructive sleep apnea Status: Chronic (7) S/P coronary artery bypass graft x 3 Status: Chronic Comment: CABG X 3, SOTO to LAD, SVG to 1st diagonal & SVG to obtuse marginal @ [facility]ma 04/08/16 (8) Postlaminectomy syndrome of lumbar region Status: Chronic (9) Disc degeneration, lumbosacral Status: Chronic (10) Lumbosacral radiculopathy Status: Chronic (11) Diabetes mellitus, type 2 Status: Chronic Qualifiers: (12) Hypertension Status: Chronic Qualifiers: (13) History of stroke Status: Chronic (14) Fibromyalgia Status: Chronic (15) GERD Status: Chronic (16) Hypothyroidism Status: Chronic (17) Renal cancer Status: Chronic (18) CAD (coronary artery disease) Status: Chronic Qualifiers: Comment: CABG X 3, SOTO to LAD, SVG to 1st diagonal & SVG to obtuse marginal @ summa 04/08/16 History of Present Illness Date of Admission: 08/30/17 Chief Complaint: Debility post TIA, uncontrolled DM The patient is a 81 year old CF with PMH HTN, HLD, DM, H/O TIA, CAD s/p CABG, FRANKLIN, H/O renal cancer, CKD, H/O Pain pump implantation admitted to [facility] with debility s/p aphasia and uncontrolled DM, for > 3 hrs therapy daily, with the goal of returning home at or near her prior level of functional independence. Patient was admitted with expressive aphasia on 08/25/17 to [facility], was not a tpa candidate since was out of window at that time per documentation, MRI brain could not be obtained due to pain pump (the details of which are not available at present), but per patient the pain pump was placed about [address] Vergara ( and per patient description could be a spinal stimulator), 3 CT head done after inpatient admission did not show any acute stroke, CTA head /neck done on admission showed greater than 70% stenosis of the left ICA but carotid ultrasound showed <50% stenosis, vascular surgery consult with Dr. Cebul is pending at present, patient's hospital course was complicated by uncontrolled blood sugars in the range of 500, and was treated with insulin drip , and the blood sugar at the time of transferring to rehab was more than 350, which was deemed reasonable by Dr. Dewitt (hospitalist), given she has been having this high blood sugar in the recent past few months and per patient it was in the high range for the past 2 months since the pain pump/spinal stimulator implantation. Prior to that per patient her Blood sugars were not this high and was around 100-150s, per patient she sees an crap game box person as outpatient. She lives with her , denies using cane or walker to ambulate , denies any frequent falls, does drive and has 1 step getting into the house and house is on one level. At present denies any aphasia, DELGADILLO, visual disturbances, sensory loss, focal motor weakness, chest pain, fever, or dyspnea. 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) TIA (transient ischemic attack) (Chronic) Angina pectoris (Chronic) Obstructive sleep apnea (Chronic) 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) CABG X 3, SOTO to LAD, SVG to 1st diagonal & SVG to obtuse marginal @ summa Postlaminectomy syndrome of lumbar region (Chronic) Disc degeneration, lumbosacral (Chronic) Lumbosacral radiculopathy (Chronic) Diabetes mellitus, type 2 (Chronic) Hypertension (Chronic) History of stroke (Chronic) Fibromyalgia (Chronic) GERD (Chronic) Hypothyroidism (Chronic) Renal cancer (Chronic) CAD (coronary artery disease) (Chronic) CABG X 3, SOTO to LAD, SVG to 1st diagonal & SVG to obtuse marginal @ summa Medical History: Medical History (Last Reviewed 08/25/17 @ 17:39 by Yuriy Browning DO) Hyperlipidemia (Chronic) E78.5 Obstructive sleep apnea (Chronic) G47.33 Diabetes mellitus, type 2 (Chronic) E11.9 Hypertension (Chronic) I10 History of stroke (Chronic) Z86.73 CAD (coronary artery disease) (Chronic) I25.10 CABG X 3, SOTO to LAD, SVG to 1st diagonal & SVG to obtuse marginal @ summa Chest pain R07.9 Dyspnea on exertion R06.09 Edema R60.9 Fatigue R53.83 Shortness of breath R06.02 Allergies latex Allergy (Verified 07/29/17 14:47) Rash adhesive tape Adverse Reaction (Verified 07/29/17 14:47) Rash Home Medications: Ambulatory Orders Medication Instructions Recorded Gabapentin [Neurontin] 300 mg PO BID 05/09/16 Lansoprazole [Prevacid] 30 mg PO DAILY 05/09/16 cholecalciferol (vitamin D3) 1,000 1,000 unit PO BID tab 04/21/17 unit tablet hydralazine 50 mg tablet 50 mg PO TID 90 Days #270 04/22/17 lisinopril 20 mg tablet 20 mg PO DAILY 90 Days #90 04/22/17 Levothyroxine [Synthroid] 88 mcg PO DAILY 04/25/17 atorvastatin 40 mg tablet 40 mg PO DAILY #90 tab 06/30/17 metoprolol tartrate 25 mg tablet 25 mg PO BID #180 tab 08/04/17 Insulin Lispro [Humalog KwikPen] See Protocol SC ACHS 08/25/17 Isosorbide Mononitrate [Isosorbide 30 mg PO DAILY 08/25/17 Mononitrate ER] Metformin(XR) [Glucophage Xr] 1,000 mg PO BID 08/25/17 Oxybutynin Chloride [Ditropan Xl] 10 mg PO DAILY 08/25/17 morphine SR tablet [Ms Contin] 15 mg PO DAILY 08/25/17 Amlodipine [Norvasc] 5 mg PO DAILY 08/30/17 Aspirin E.C. [Ecotrin] 81 mg PO DAILY@0800 08/30/17 Clopidogrel Bisulfate [Plavix] 75 mg PO DAILY 08/30/17 Insulin Glargine [Lantus SoloStar 50 units SC BID 08/30/17 Pen] Insulin Lispro [Humalog KwikPen] 20 unit SC TIDAC 08/30/17 Surgical History: Surgical History (Last Reviewed 08/25/17 @ 17:39 by Yuriy Browning DO) History of knee replacement (Resolved) Z96.659 Hx of tonsillectomy (Resolved) Z90.89 Hx of cholecystectomy (Resolved) Z90.49 H/O: hysterectomy (Resolved) Z90.710 History of lumbar surgery (Resolved) Z98.890 linda and screws 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) Z95.1 CABG X 3, SOTO to LAD, SVG to 1st diagonal & SVG to obtuse marginal @ [facility] Surgical History: appendectomy, cholecystectomy, herniorrhaphy, hysterectomy, total knee arthroplasty, tonsillectomy, - - cryotherapy for kidney tumor Psychiatric History: No 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 Lives: Spouse/ Significant Other Smoking Status: Never smoker Alcohol: None Drugs: None - *Family History Maternal Family History: Family History (Last Reviewed 08/25/17 @ 17:39 by Yuriy Browning DO) Father Heart disease History Items: Diabetes, Heart Disease - age 95 Paternal Family History: Family History (Last Reviewed 08/25/17 @ 17:39 by Yuriy Browning DO) Father Heart disease History Items: Heart Disease - age 69 Review of Systems Constitutional: Reports: - - complete ROS negative except as documented in HPI VTE Information - Inpt Only VTE Present on Admission: No VTE Mechan Device Prophylaxis: SCD's, Thigh High JEFFREY Hose VTE Pharm Prophylaxis ordered?: Yes Patient Problems: Active and Suspected Problems (Last Reviewed 08/25/17 @ 17:39 by Yuriy Browning DO) Debility (Acute) - Physical Exam General: Alert HEENT: Atraumatic Neck: Supple Lungs: Clear to auscultation Cardiovascular: Normal S1, Normal S2 Abdomen: Bowel Sounds Present Extremities: No cyanosis Skin: No rashes Musculoskeletal: No Tenderness to Palpation of Joints or Extremities Neurological: Cranial nerves II-XII grossly intact, Deep Tendon Reflexes 2+/4 and Symmetrical, Neuro grossly intact, Motor Exam 5/5 strength throughout, Muscle tone normal, Sensory exam intact to light touch and pain, Coordination normal Psych/Mental Status: Normal Affect Vital Signs Temp Pulse Resp BP Pulse Ox 97.9 F 97 18 129/88 H 93 08/30/17 10:50 08/30/17 15:44 08/30/17 10:50 08/30/17 15:44 08/30/17 10:50 Oxygen Delivery Method Room Air Weight: 70.45 kg Body Mass Index (BMI) 26.6 Finger Stick Blood Glucose 500 Intake and Output for Last 24 Hours 08/28/17 08/29/17 08/30/17 23:59 23:59 23:59 Intake Total 200 / 200 Balance 200 / 200 Laboratory Tests Past 24 Hrs 08/30/17 12:50 Glucose 471 H* Assessment/Plan All Active Problems (Last Reviewed 08/25/17 @ 17:39 by Yuriy Browning DO) CVA (cerebral vascular accident) (Acute) Aphasia (Resolved) Debility (Acute) History of knee replacement (Resolved) Hx of tonsillectomy (Resolved) Hx of cholecystectomy (Resolved) H/O: hysterectomy (Resolved) History of lumbar surgery (Resolved) Diarrhea (Acute) Abdominal pain (Acute) Lactic acidosis (Acute) Dehydration (Acute) Hyperkalemia (Resolved) Third nerve palsy (Resolved) The patient is a 81 year old CF with PMH HTN, HLD, DM, H/O TIA, CAD s/p CABG, FRANKLIN, H/O renal cancer, CKD, H/O Pain pump implantation, hypothyroidism admitted to [facility] with debility s/p aphasia and uncontrolled DM, for > 3 hrs therapy daily, with the goal of returning home at or near her prior level of functional independence. Patient was admitted with expressive aphasia on 08/25/17 to [facility], was not a tpa candidate since was out of window at that time per documentation, MRI brain could not be obtained due to pain pump (the details of which are not available at present), but per patient the pain pump was placed about [address] Vergara ( and per patient description could be a spinal stimulator), 3 CT head done after inpatient admission did not show any acute stroke, CTA head /neck done on admission showed greater than 70% stenosis of the left ICA but carotid ultrasound showed <50% stenosis, vascular surgery consult with Dr. Wooten is pending at present, patient's hospital course was complicated by uncontrolled blood sugars in the range of 500, and was treated with insulin drip , and the blood sugar at the time of transferring to rehab was more than 350, which was deemed reasonable by Dr. Dewitt (hospitalist), given she has been having this high blood sugar in the recent past few months and per patient it was in the high range for the past 2 months since the pain pump/spinal stimulator implantation. Prior to that per patient her Blood sugars were not this high and was around 100-150s, per patient she sees an crap game box person as outpatient. She lives with her , denies using cane or walker to ambulate , denies any frequent falls, does drive and has 1 step getting into the house and house is on one level. At present denies any aphasia, [place]AD[place]O, visual disturbances, sensory loss, focal motor weakness, chest pain, fever, or dyspnea. Plan -PT for gait stability -OT for ADLs -Bowel protocol -Analgesics per protocol -HTN- On amlodipine, lisinopril, metoprolol, and hydralazine, goal BP < 130/80 mmHg -HLD- on Lipitor 40 mg PO q hs -TIA- aphasia resolved, on dual AP with ASA/Plavix for 3 weeks then switch to single AP, on Lipitor. -Carotid stenosis-needs to see vascular surgery CECILY after discharge from Rehab , hospitalist tried to contact Dr. Wooten during inpatient but is on vacation -DM- Blood sugars are uncontrolled, has been greater than 350, is on Lantus 50 units BID, Humalog 20 units TIS and sliding scale insulin. discussed with Dr. Dewitt who discharged patient to rehab about the uncontrolled BS, per Dr. Dewitt her BS have been this high for al long time and will be very difficult to get it below 200s at present, discussed the need for close hospitalist monitoring to control the BS and he agrees with the same. Is on Metformin but pharmacy wants the same to be changed due to CKD and low creatinine clearance, will defer to hospitalist for further change in DM medications. IF BS goes over 500 then will need to transfer patient back to inpatient hospital setting. Will also obtain Endocrinology consult, if not possible then will need to get Endocrinology outpatient referral on Friday for better DM control -CAD- on ASA, statins and Isosorbide -Hypothyroidism-on Synthroid -Lumbosacral radiculopathy/degenerative disc disease- will obtain pain pump/? spinal stimulator implantation records from Dr. Vergara -GI/DVT prophylaxis- on Lovenox 30 mg SQ once daily, SCDs and JEFFREY hose thigh high -Fall precautions. -Further medical management per primary team. Code Visit Inpatient E&M: 17859 Init Hosp L3
--- NOTE | 2017-08-30 15:58 | REHABEVAL_ITS ---
Admission Information Status Changes from Prescreening?: No changes Identified Actual Problem List:: Mobility Impaired, Self Care Deficit, Diabetes, Hyperglycemia, BP, Hypertension Potential Problem List:: DVT, Bleeding, Infection, UTI, Aspiration, Falls, Skin Integrity, Depression Risk of Complications DVT: LMWH, JEFFREY Hose, Sequential Compression Device Bleeding: Monitor Lab Values, Nursing to Teach Precautions for anti-coagulation therapy., Wound, if applicable, to be assessed every shift., Stroke patients assessed for lethargy or change in status. Infection: Clinical Staff to Monitor for S/S of infection:, S/S of infection include fever, redness, warmth, etc. Urinary Tract Infection: Monitor for frequency, burning, discomfort, or incontinence., Nursing will obtain urine sample for urinalysis and C&S when ordered. Aspiration: Clinical staff will monitor for coughing, drooling, congestion., Speech will evaluate swallowing and dsyphasia., Nursing will monitor patient swallowing during meals. Falls: Patient will be evaluated for Fall Precautions, Patient will be placed on Fall Precautions as indicated per protocol. Skin Breakdown: Nursing will assess skin daily using assessment tool., Nursing will place on Skin Breakdown Precautions as indicated. Pain: Clinical staff will assess patient's pain level per protocol., Medications will be given, if needed, and the pain level reassessed., Other methods: Massage, distraction, decrease stimulus, etc. used PRN. Plan of Care Patient requires physician specializing in physical medicine and rehab oversight to provide close medical supervision of rehab issues including: Pain Management, Sleep Problems, Bowel and Bladder, Medical and co-morbidity Management, DVT prophylaxis, Rehabilitation Leadership, Coordination of treatment team Patient needs Physical Therapy: For a minimum of 1 hour, At least 5 out of 7 days Patient needs Physical Therapy to improve:: Mobility, Mobility, Mobility, Strengthening, Transfers, Stretching, ROM, Endurance, Stairs, Gait, Balance Patient needs Occupational Therapy: For a minimum of 1 hour, At least 5 out of 7 days Patient needs Occupational Therapy to improve ADL's incl.: Eating, Grooming, Bathing, Dressing, Toileting, Toilet transfers, Community Reintegration, Higher functioning activities, Household tasks, Adaptive Equipment, Splinting, Other activities as determined Patient requires speech therapy: For a minimum of 1 hour, At least 5 out of 7 days Patient requires speech therapy for: Swallowing, Cognition, Language Skills, Compensatory Strategies Patient requires 24/7 Rehabilitation Nursing for: Pain Issues, Identifying and preventing risk factors, Monitoring and reporting current medical conditions, Assisting with ambulation, transfer, and all ADL's, Teaching patients about disease process and medications, Family teaching, Providing safe environment, Bowel and Bladder Issues, Skin integrity, Medication Management Patient needs Sales Representative Sales Manager/ Case Management for: Discharge Planning, Arranging Home Equipment or Services, Family Interventions Patient needs Dietary and Nutrition Services for: Adequate Nutrition, Nutritional Supplements, Nutritional Education Goals Patient will remain: free from falls, or injury at time of discharge. Patient will perform bed mobility at: MOD I level of assist. Patient will complete transfers from bed to chair at: MOD I level of assist. Patient will ambulate: 100 feet, with MOD I assist, with LRD Patient will complete upper body dressing at: MOD I level of assist. Patient will complete lower body dressing at: MOD I level of assist. Patient will complete toileting at: MOD I level of assist. Patient will perform bathing at: MOD I level of assist. Patient will complete grooming at: MOD I level of assist. Patient will complete home management skills at: MOD I level of assist. Patient will achieve: 12 stairs, at MOD I assist Patient will have pain level of: of 3 or less Patient's skin will: remain intact, free from infection. Patient will receive: adequate nutrition. Discharge Planning Pt Prognosis for Sig. Practical Improv. w/in Reasonable Time: Good Estimated Length of stay (days): 10 Anticipated D/C Destination: Home Was Preadmission Assessment Accurate?: Yes
[2017-08-30 17:00] LABS: Bedside Glucose 299 mg/dL (70-110)
[2017-08-30] MEDS: Gabapentin 300 MG Capsule PO (17:06)
[2017-08-30] MEDS: Insulin Lispro 100 UNIT/ML INSULN.PEN SC ×2 (17:07→21:46)
[2017-08-30] MEDS: Metoprolol Tartrate 25 MG Tablet PO (21:48)
[2017-08-30] MEDS: Senna/Docusate Sodium 1 Tablet 2 TABLET PO (21:48)
[2017-08-30 22:01] LABS: Bedside Glucose 294 mg/dL (70-110)
[2017-08-31] VITALS (8 sets, daily range): BP systolic 108–136; BP diastolic 52–72; PULSE 78–93; RESP 17–18; TEMP 36.6–36.8; O2SAT 93–94
[2017-08-31] MEDS: hydrALAZINE 50 MG Tablet PO ×3 (06:26→21:20)
[2017-08-31] MEDS: Levothyroxine 88 MCG Tablet PO (06:27)
[2017-08-31 07:01] LABS: Bedside Glucose 253 mg/dL (70-110)
[2017-08-31 07:18] LABS: Absolute Lymphocyte Count 3.02 X10^3/ul (0.83-4.51); Absolute Neutrophil Count 7.1 X10^3/uL (2.0-7.7); Basophil# 0.04 X10^3/uL; Basophil% 0.4 % (0-1); Eosinophil# 0.36 X10^3/uL; Eosinophils% 3.2 % (0-5); Hematocrit 41.6 % (37-47); Hemoglobin 13.7 g/dl (12.0-15.0); Lymphocyte # 3.02 X10^3/ul (4.0); Lymphocyte % 26.9 % (19-41); Mean Corp Hgb Conc 32.9 g/gl (32-36); Mean Corpuscular Hgb 30.1 pg (27.0-32.0); Mean Corpuscular Volume 91.4 fL (81-99); Mean Platelet Vol. 12.4 fl (6.2-12.0); Monocyte# 0.74 X10^3/uL; Monocyte% 6.6 % (0-10); Neutrophil # 7.05 X10^3/uL (2.7-7.7); Neutrophil % 62.7 % (47-70); Platelet Count 200 K/mm3 (150-450); RBC Distribution Width CV 13.5 % (11.6-14.6); Red Blood Count 4.55 M/mm3 (4.2-5.4); White Blood Count 11.2 K/mm3 (4.4-11.0)
[2017-08-31 07:19] LABS: POSITIVE COUNT NO; POSITIVE DIFFERENTIAL NO; POSITIVE MORPHOLOGY NO
[2017-08-31] MEDS: Insulin Lispro 100 UNIT/ML INSULN.PEN 20 UNIT SC ×2 (07:26→12:12)
[2017-08-31] MEDS: Insulin Lispro 100 UNIT/ML INSULN.PEN SC ×4 (07:27→21:21)
[2017-08-31 07:38] LABS: ALB/GLOB Ratio 0.9 RATIO (0.9-2.4); AST(SGOT) 17 U/L (15-37); Alanine Aminotransfer ALT/SGPT 24 U/L (13-56); Albumin, Serum 3.4 g/dL (3.2-5.0); Alkaline Phosphatase 71 U/L (45-117); Anion Gap 12 (5-15); BUN 36 mg/dL (7-18); BUN/Creat Ratio 23.4 RATIO (10-20); Calcium,Total 8.7 mg/dL (8.5-10.1); Chloride 108 mmol/L (98-107); Creatinine, Serum 1.54 mg/dL (0.55-1.02); EST Glomerular Filtration Rate 35 mL/min (>60); Est Glom Filt Rate - Afr Amer 42 mL/min (>60); Estimated Creatinine Clearance 25.58 ml/min; Globulin 3.8 g/dL (2.2-4.2); Glucose 262 mg/dL (74-106); Potassium 4.2 mmol/L (3.5-5.1); Protein, Total 7.2 g/dL (6.4-8.2); Sodium Level 140 mmol/L (136-145)
[2017-08-31] MEDS: Gabapentin 300 MG Capsule PO ×2 (08:31→17:40)
[2017-08-31] MEDS: Aspirin E.C. 81 MG Tablet PO (08:31)
[2017-08-31] MEDS: Tolterodine Tartrate 2 MG CAP.SA PO (10:15)
[2017-08-31] MEDS: Isosorbide Mononitrate 30 MG Tablet PO (10:15)
[2017-08-31] MEDS: Enoxaparin 30 MG/0.3 ML Syringe SC (10:15)
[2017-08-31] MEDS: Metoprolol Tartrate 25 MG Tablet PO ×2 (10:16→21:23)
[2017-08-31] MEDS: morphine SR 15 MG Tablet PO (10:16)
[2017-08-31] MEDS: Lisinopril 20 MG Tablet PO (10:17)
[2017-08-31] MEDS: Clopidogrel Bisulfate 75 MG Tablet PO (10:17)
[2017-08-31] MEDS: Pantoprazole Sodium 40 MG Tablet PO (10:17)
[2017-08-31] MEDS: amLODIPine 5 MG Tablet PO (10:17)
[2017-08-31 11:51] LABS: Bedside Glucose 391 mg/dL (70-110)
--- NOTE | 2017-08-31 16:07 | PN_ITS ---
Subjective: Chief complaint: Follow-up after consultation for medical management after admission to inpatient rehabilitation unit for expressive aphasia and probable TIA, left internal carotid artery stenosis and uncontrolled type 2 diabetes mellitus. Patient seen and examined. No acute events overnight. She denies any significant complaints. Her speech has been normal and fluent. Denied any focal deficit. Denied chest pain or shortness of breath. Her vital signs are stable. - Physical Exam General: Alert, Oriented x3, Cooperative, No apparent distress HEENT: Atraumatic, PERRLA, EOMI, Normocephalic Oral: Moist Mucosa, No Gingival or Mucosal Lesions/ Ulcerations Neck: Supple, No JVD, Negative Carotid Bruits, Trachea Midline, Thyroid Normal Size and Texture Lungs: Clear to auscultation, No rhonchi, No wheeze, No rales, Diminished Cardiovascular: Regular rate, Normal S1, Normal S2, No murmurs, PMI Normal Abdomen: Bowel Sounds Present, Soft, Non Tender, Non-Distended, No Hepato- splenomegaly Extremities: No clubbing, No cyanosis, No edema Skin: No rashes, No breakdown Lymphatic: No Cervical, Supraclavicular, or Inguinal Adenopathy Neurological: Cranial nerves II-XII grossly intact, Neuro grossly intact, Motor Exam 5/5 strength throughout Psych/Mental Status: Normal Affect, Appropriate, Alert and oriented to time, place, person, mood and affect Vital Signs Temp Pulse Resp BP Pulse Ox 98.2 F 88 18 108/52 L 94 08/31/17 08:19 08/31/17 14:48 08/31/17 08:19 08/31/17 14:48 08/31/17 08:19 Oxygen Delivery Method Room Air Weight: 155 lb 6.814 oz Body Mass Index (BMI) 26.6 Finger Stick Blood Glucose 500 Intake and Output for Last 24 Hours 08/29/17 08/30/17 08/31/17 23:59 23:59 23:59 Intake Total 200 / 200 720 / 720 Output Total 100 / 100 Balance 100 / 100 720 / 720 Laboratory Tests Past 24 Hrs 08/31/17 08/31/17 07:08 07:08 WBC 11.2 H RBC 4.55 Hgb 13.7 Hct 41.6 MCV 91.4 MCH 30.1 MCHC 32.9 RDW 13.5 RDW Differential 44.0 H Plt Count 200 MPV 12.4 H Immature Gran % (Auto) 0.200 Neut % (Auto) 62.7 Lymph % (Auto) 26.9 [place] % (Auto) 6.6 Eos % (Auto) 3.2 Baso % (Auto) 0.4 Absolute Neuts (auto) 7.1 Absolute Lymphs (auto) 3.02 Total Counted Not Reportable Sodium 140 Potassium 4.2 Chloride 108 H Carbon Dioxide 20.0 L Anion Gap 12 BUN 36 H Creatinine 1.54 H Estim Creat Clear Calc 25.58 Est GFR (MDRD) Af Amer 42 L Est GFR (MDRD) Non-Af 35 L BUN/Creatinine Ratio 23.4 H Glucose 262 H Calcium 8.7 Total Bilirubin 0.40 AST 17 ALT 24 Alkaline Phosphatase 71 Total Protein 7.2 Albumin 3.4 Globulin 3.8 Albumin/Globulin Ratio 0.9 POC Glucose 08/31/17 08/31/17 08/30/17 11:41 06:34 21:43 POC Glucose 391 H 253 H 294 H 08/30/17 16:55 POC Glucose 299 H Medical Necessity - Tobacco Use Smoking Status: Never smoker Assessment/Plan All Active Problems (Last Reviewed 08/25/17 @ 17:39 by Yuriy Browning DO) Debility (Acute) Hyperkalemia (Resolved) Third nerve palsy (Resolved) This is a 81 years old female patient admitted to inpatient rehab rotation unit from the hospital floor after was admitted for expressive aphasia and probable TIA, found to have left internal carotid artery stenosis and also uncontrolled type 2 diabetes mellitus. #1 expressive aphasia/probable TIA: Workup in the floor revealed no evidence of acute stroke. CT scan brain done 3 times and was negative for acute stroke. CTA of the head revealed no hemodynamically significant vascular disease or stenosis. CTA of the neck revealed atherosclerotic plaque at the origin of the left internal carotid artery with greater than 70% stenosis. 2D echocardiogram revealed ejection fraction 65%, stage I diastolic dysfunction and no evidence of a significant valvular heart disease. MRI brain was not performed because patient had pain pump. She has no focal deficit on physical examination. Her vital signs are stable, blood pressure under control. She is on aspirin, Plavix and statins. Plan for PT OT according to rehab team. #2 left internal carotid artery stenosis: She is on aspirin and Plavix. Plan for vascular surgery evaluation as outpatient. #3 uncontrolled type 2 diabetes mellitus: Patient's blood sugar has been very uncontrolled, significantly fluctuates. Patient has been using Lantus and NovoLog sliding scale at home according to the patient herself. After admission , she was started on Lantus 50 units twice daily, pre-meal Humalog 20 units 3 times daily as well as sliding scale and her sugar still fluctuating significantly. Hemoglobin A1c was 10.3 on August,. Reportedly, patient's blood sugar started to go up this much since she had the pain pump inserted back in July,. Plan: Increase pre-meal Humalog to 24 units 3 times daily, need to figure out how much patient has been taking insulin at home and she said she will bring her papers from home. #4 stage III chronic kidney disease: Baseline creatinine has been around 1.3- 1.8 mg/dL. Today's creatinine 1.54, stable at baseline. #5 hypertension: Blood pressure stable, continue Norvasc, hydralazine, lisinopril and metoprolol. #6 hypothyroidism: Continue levothyroxine. #7 CAD status post CABG: Stable, no acute issues. Continue aspirin, Plavix, isosorbide mononitrate, lisinopril and metoprolol. #8 DVT prophylaxis: Subcu Lovenox. This note was generated with [employer] dictation software. It may contain incorrect words, spelling, and punctuation that were not noted in checking the note before signing. Code Visit Inpatient E&M: 26222 Subs Hosp L2
[2017-08-31 17:35] LABS: Bedside Glucose 190 mg/dL (70-110)
[2017-08-31] MEDS: Insulin Lispro 100 UNIT/ML INSULN.PEN 24 UNIT SC (17:40)
--- NOTE | 2017-08-31 18:35 | NURSING ---
pt ambulated around unit this shift. tolerated well.
[2017-08-31 21:26] LABS: Bedside Glucose 191 mg/dL (70-110)
[2017-09-01] VITALS (7 sets, daily range): BP systolic 115–145; BP diastolic 69–74; PULSE 68–84; RESP 16–18; TEMP 36.6–36.7; O2SAT 92–95
[2017-09-01] MEDS: hydrALAZINE 50 MG Tablet PO ×3 (05:25→22:38)
[2017-09-01] MEDS: Levothyroxine 88 MCG Tablet PO (05:26)
[2017-09-01] MEDS: Enoxaparin 30 MG/0.3 ML Syringe SC (05:26)
[2017-09-01 06:50] LABS: Bedside Glucose 175 mg/dL (70-110)
[2017-09-01] MEDS: Insulin Lispro 100 UNIT/ML INSULN.PEN SC ×3 (08:33→17:10)
[2017-09-01] MEDS: Insulin Lispro 100 UNIT/ML INSULN.PEN 24 UNIT SC ×3 (08:34→17:09)
[2017-09-01] MEDS: morphine SR 15 MG Tablet PO (08:35)
[2017-09-01] MEDS: Metoprolol Tartrate 25 MG Tablet PO ×2 (08:35→22:38)
[2017-09-01] MEDS: Lisinopril 20 MG Tablet PO (08:36)
[2017-09-01] MEDS: Tolterodine Tartrate 2 MG CAP.SA PO (08:36)
[2017-09-01] MEDS: amLODIPine 5 MG Tablet PO (08:36)
[2017-09-01] MEDS: Clopidogrel Bisulfate 75 MG Tablet PO (08:36)
[2017-09-01] MEDS: Isosorbide Mononitrate 30 MG Tablet PO (08:36)
[2017-09-01] MEDS: Gabapentin 300 MG Capsule PO ×2 (08:37→15:55)
[2017-09-01] MEDS: Aspirin E.C. 81 MG Tablet PO (08:37)
[2017-09-01] MEDS: Pantoprazole Sodium 40 MG Tablet PO (08:53)
[2017-09-01 11:26] LABS: Bedside Glucose 460 mg/dL (70-110)
[2017-09-01 12:02] LABS: Glucose 459 mg/dL (74-106)
--- NOTE | 2017-09-01 12:02 | NURSING ---
Dr Dewitt notified of blood sugar 460 and lab backup reading 459 at this time. Patient asymptomatic. No complaints voiced.
[2017-09-01] MEDS: Loratadine 10 MG Tablet PO (12:22)
--- NOTE | 2017-09-01 12:59 | CASEMGMT ---
Insurance Clinical information sent. Pending continued stay approval at this time. Auth#[id number] Nadia ARREDONDO, DIRECTOR OF SURGERY
--- NOTE | 2017-09-01 13:22 | PCM.PN.NEU ---
Subjective: Patient sitting quietly in bedside recliner, No new complaints, blood sugars this morning was in the 170's prior to breakfast, prior to lunch her blood sugar was 369, she had regular syrup for breakfast, will have the ice cream dispenser do diabetic teaching, and will change her diet to 1800 calorie/carbohydrate controlled diet. She is tolerating therapy. Denies any headaches, blurry vision or double vision. - Physical Exam General: Alert, Oriented x3, Cooperative HEENT: Atraumatic, PERRLA, EOMI, Normocephalic Neck: Supple, No JVD, Negative Carotid Bruits Lungs: Clear to auscultation, Normal air movement Cardiovascular: Regular rate, No murmurs Abdomen: Bowel Sounds Present, Soft, Non Tender Extremities: No edema, Capillary Refill Less than 3 Seconds Skin: No rashes, No breakdown Musculoskeletal: No Tenderness to Palpation of Joints or Extremities Neurological: Cranial nerves II-XII grossly intact Psych/Mental Status: Normal Affect, Appropriate, Alert and oriented to time, place, person, mood and affect Vital Signs Temp Pulse Resp BP Pulse Ox 97.9 F 84 18 119/71 93 09/01/17 07:31 09/01/17 08:35 09/01/17 07:31 09/01/17 07:31 09/01/17 07:31 Oxygen Delivery Method Room Air Weight: 70.5 kg Body Mass Index (BMI) 26.6 Finger Stick Blood Glucose 500 Intake and Output for Last 24 Hours 08/30/17 08/31/17 09/01/17 23:59 23:59 23:59 Intake Total 200 / 200 940 / 940 940 / 940 Output Total 100 / 100 400 / 400 350 / 350 Balance 100 / 100 540 / 540 590 / 590 Laboratory Tests Past 24 Hrs 09/01/17 11:34 Glucose 459 H* POC Glucose 09/01/17 09/01/17 08/31/17 11:19 06:45 21:19 POC Glucose 460 H* 175 H 191 H 08/31/17 17:26 POC Glucose 190 H Active Medications Amlodipine Besylate (Norvasc) 5 mg PO DAILY [facility] Last Admin: 09/01/17 08:36 Dose: 5 mg Aspirin (Ecotrin) 81 mg PO DAILY@0800 [facility] Last Admin: 09/01/17 08:37 Dose: 81 mg Bisacodyl (Dulcolax) 10 mg RECTAL .PRN X 1 PRN PRN Reason: Constipation Chole[facility]ifer[facility] ([facility]) [facility] Last Admin: 09/01/17 08:36 Dose: 2,000 unit Clopidogrel Bisulfate (Plavix) 75 mg PO DAILY [facility] Last Admin: 09/01/17 08:36 Dose: 75 mg Enoxaparin Sodium (Lovenox) 30 mg SC DAILY@0600 [facility] Last Admin: 09/01/17 05:26 Dose: 30 mg Gabapentin ([facility]urontin) [facility] Last Admin: 09/01/17 08:37 Dose: 300 mg Hydralazine HCl (Apresoline) 50 mg PO TID [facility] Last Admin: 09/01/17 05:25 Dose: 50 mg Insulin Glargine (Lantus (Bkc)) 50 units SC BID [facility] Last Admin: 09/01/17 08:37 Dose: 50 u Insulin Human Lispro (Humalog Kwikpen (Bkc)) 0 unit SC ACHS [facility] PRN Reason: Protocol Last Admin: 09/01/17 12:07 Dose: 16 units Insulin Human Lispro (Humalog Kwikpen (Bkc)) 24 unit SC TIDAC [facility] Last Admin: 09/01/17 12:07 Dose: 24 units Isosorbide Mononitrate (Imdur) 30 mg PO DAILY [facility] Last Admin: 09/01/17 08:36 Dose: 30 mg Levothyroxine Sodium (Synthroid) 88 mcg PO DAILY@0600 [facility] Last Admin: 09/01/17 05:26 Dose: 88 mcg Lisinopril (Zestril) 20 mg PO DAILY [facility] Last Admin: 09/01/17 08:36 Dose: 20 mg Loratadine (Claritin) 10 mg PO DAILY [facility] Last Admin: 09/01/17 12:22 Dose: 10 mg Magnesium Hydroxide (Milk Of Magnesia) 30 ml PO .PRN X 1 PRN PRN Reason: Constipation Metoprolol Tartrate (Lopressor (Beta Pancho)) 25 mg PO BID [facility] Last Admin: 09/01/17 08:35 Dose: 25 mg Morphine Sulfate (Ms Contin) 15 mg PO DAILY [facility] Last Admin: 09/01/17 08:35 Dose: 15 mg Pantoprazole Sodium (Protonix) 40 mg PO DAILY [facility] Last Admin: 09/01/17 08:53 Dose: 40 mg Senna/Docusate Sodium (Senokot-S, Heydi-Colace) 2 tablet PO BID [facility] Last Admin: 09/01/17 08:26 Dose: Not Given Tolterodine Tartrate (Detrol La) 2 mg PO DAILY [facility] Last Admin: 09/01/17 08:36 Dose: 2 mg Medical Necessity - Tobacco Use Smoking Status: Never smoker Assessment/Plan All Active Problems (Last Reviewed 08/25/17 @ 17:39 by Yuriy Browning DO) Debility (Acute) Hyperkalemia (Resolved) Third nerve palsy (Resolved) Debility s/p expressive aphasia and probable TIA, found to have left internal carotid artery stenosis. Complicated by uncontrolled type 2 diabetes mellitus. goal of rehab is judaism of functional independence. Plan -PT for gait stability -OT for ADLs -Bowel protocol -Analgesics per protocol -HTN- On amlodipine, lisinopril, metoprolol, and hydralazine, goal BP < 130/80 mmHg -HLD- on Lipitor 40 mg PO q hs -TIA- aphasia resolved, on dual AP with ASA/Plavix for 3 weeks then switch to single AP, on Lipitor. -Carotid stenosis-needs to see vascular surgery CECILY after discharge from Rehab, hospitalist tried to contact Dr. Wooten during inpatient but is on vacation -DM- Blood sugars are uncontrolled, has been greater than 350, is on Lantus 50 units BID, Humalog 20 units TIS and sliding scale insulin. discussed with Dr. Dewitt who discharged patient to rehab about the uncontrolled BS, per Dr. Dewitt her BS have been this high for a long time and will be very difficult to get it below 200s at present, discussed the need for close hospitalist monitoring to control the BS and he agrees with the same. Is on Metformin but pharmacy wants the same to be changed due to CKD and low creatinine clearance, will defer to hospitalist for further change in DM medications. IF BS goes over 500 then will need to transfer patient back to inpatient hospital setting. Will also obtain Endocrinology consult, if not possible then will need to get Endocrinology outpatient referral on Friday for better DM control -CAD- on ASA, statins and Isosorbide -Hypothyroidism-on Synthroid -Lumbosacral radiculopathy/degenerative disc disease- will obtain pain pump/?spinal stimulator implantation records from Dr. Vergara -GI/DVT prophylaxis- on Lovenox 30 mg SQ once daily, SCDs and JEFFREY hose thigh high -Fall precautions. -Further medical management per primary team.
--- NOTE | 2017-09-01 13:37 | PN.NEURO_ITS ---
Subjective: Patient sitting quietly in bedside recliner, No new complaints, blood sugars this morning was in the 170's prior to breakfast, prior to lunch her blood sugar was 369, she had regular syrup for breakfast, will have the letterpress setter do diabetic teaching, and will change her diet to 1800 calorie/carbohydrate controlled diet. She is tolerating therapy. Denies any headaches, blurry vision or double vision. - Physical Exam General: Alert, Oriented x3, Cooperative HEENT: Atraumatic, PERRLA, EOMI, Normocephalic Neck: Supple, No JVD, Negative Carotid Bruits Lungs: Clear to auscultation, Normal air movement Cardiovascular: Regular rate, No murmurs Abdomen: Bowel Sounds Present, Soft, Non Tender Extremities: No edema, Capillary Refill Less than 3 Seconds Skin: No rashes, No breakdown Musculoskeletal: No Tenderness to Palpation of Joints or Extremities Neurological: Cranial nerves II-XII grossly intact Psych/Mental Status: Normal Affect, Appropriate, Alert and oriented to time, place, person, mood and affect Vital Signs Temp Pulse Resp BP Pulse Ox 97.9 F 84 18 119/71 93 09/01/17 07:31 09/01/17 08:35 09/01/17 07:31 09/01/17 07:31 09/01/17 07:31 Oxygen Delivery Method Room Air Weight: 70.5 kg Body Mass Index (BMI) 26.6 Finger Stick Blood Glucose 500 Intake and Output for Last 24 Hours 08/30/17 08/31/17 09/01/17 23:59 23:59 23:59 Intake Total 200 / 200 940 / 940 940 / 940 Output Total 100 / 100 400 / 400 350 / 350 Balance 100 / 100 540 / 540 590 / 590 Laboratory Tests Past 24 Hrs 09/01/17 11:34 Glucose 459 H* POC Glucose 09/01/17 09/01/17 08/31/17 11:19 06:45 21:19 POC Glucose 460 H* 175 H 191 H 08/31/17 17:26 POC Glucose 190 H Active Medications Amlodipine Besylate (Norvasc) 5 mg PO DAILY [facility] Last Admin: 09/01/17 08:36 Dose: 5 mg Aspirin (Ecotrin) 81 mg PO DAILY@0800 [facility] Last Admin: 09/01/17 08:37 Dose: 81 mg Bisacodyl (Dulcolax) 10 mg RECTAL .PRN X 1 PRN PRN Reason: Constipation [facility]ole[facility]ifer[facility] ([facility]) [facility] Admin: 09/01/17 08:36 Dose: 2,000 unit Clopidogrel Bisulfate (Plavix) 75 mg PO DAILY [facility] Last Admin: 09/01/17 08:36 Dose: 75 mg Enoxaparin Sodium (Lovenox) 30 mg SC DAILY@0600 [facility] Last Admin: 09/01/17 05:26 Dose: 30 mg [facility]) [facility] Admin: 09/01/17 08:37 Dose: 300 mg Hydralazine HCl (Apresoline) 50 mg PO TID [facility] Last Admin: 09/01/17 05:25 Dose: 50 mg Insulin Glargine (Lantus (Bkc)) 50 units SC BID [facility] Last Admin: 09/01/17 08:37 Dose: 50 u Insulin Human Lispro (Humalog Kwikpen (Bkc)) 0 unit SC ACHS [facility] PRN Reason: Protocol Last Admin: 09/01/17 12:07 Dose: 16 units Insulin Human Lispro (Humalog Kwikpen (Bkc)) 24 unit SC TIDAC [facility] Last Admin: 09/01/17 12:07 Dose: 24 units Isosorbide Mononitrate (Imdur) 30 mg PO DAILY [facility] Last Admin: 09/01/17 08:36 Dose: 30 mg Levothyroxine Sodium (Synthroid) 88 mcg PO DAILY@0600 [facility] Last Admin: 09/01/17 05:26 Dose: 88 mcg Lisinopril (Zestril) 20 mg PO DAILY [facility] Last Admin: 09/01/17 08:36 Dose: 20 mg Loratadine (Claritin) 10 mg PO DAILY [facility] Last Admin: 09/01/17 12:22 Dose: 10 mg Magnesium Hydroxide (Milk Of Magnesia) 30 ml PO .PRN X 1 PRN PRN Reason: Constipation Metoprolol Tartrate (Lopressor (Beta Pancho)) 25 mg PO BID [facility] Last Admin: 09/01/17 08:35 Dose: 25 mg Morphine Sulfate (Ms Contin) 15 mg PO DAILY [facility] Last Admin: 09/01/17 08:35 Dose: 15 mg Pantoprazole Sodium (Protonix) 40 mg PO DAILY [facility] Last Admin: 09/01/17 08:53 Dose: 40 mg Senna/Docusate Sodium (Senokot-S, Heydi-Colace) 2 tablet PO BID [facility] Last Admin: 09/01/17 08:26 Dose: Not Given Tolterodine Tartrate (Detrol La) 2 mg PO DAILY [facility] Last Admin: 09/01/17 08:36 Dose: 2 mg Medical Necessity - Tobacco Use Smoking Status: Never smoker Assessment/Plan All Active Problems (Last Reviewed 08/25/17 @ 17:39 by Yuriy Browning DO) Debility (Acute) Hyperkalemia (Resolved) Third nerve palsy (Resolved) Debility s/p expressive aphasia and probable TIA, found to have left internal carotid artery stenosis. Complicated by uncontrolled type 2 diabetes mellitus. goal of rehab is cheondoism of functional independence. Plan -PT for gait stability -OT for ADLs -Bowel protocol -Analgesics per protocol -HTN- On amlodipine, lisinopril, metoprolol, and hydralazine, goal BP < 130/80 mmHg -HLD- on Lipitor 40 mg PO q hs -TIA- aphasia resolved, on dual AP with ASA/Plavix for 3 weeks then switch to single AP, on Lipitor. -Carotid stenosis-needs to see vascular surgery CECILY after discharge from Rehab , hospitalist tried to contact Dr. Wooten during inpatient but is on vacation -DM- Blood sugars are uncontrolled, has been greater than 350, is on Lantus 50 units BID, Humalog 20 units TIS and sliding scale insulin. discussed with Dr. Dewitt who discharged patient to rehab about the uncontrolled BS, per Dr. Dewitt her BS have been this high for a long time and will be very difficult to get it below 200s at present, discussed the need for close hospitalist monitoring to control the BS and he agrees with the same. Is on Metformin but pharmacy wants the same to be changed due to CKD and low creatinine clearance, will defer to hospitalist for further change in DM medications. IF BS goes over 500 then will need to transfer patient back to inpatient hospital setting. Will also obtain Endocrinology consult, if not possible then will need to get Endocrinology outpatient referral on Friday for better DM control -CAD- on ASA, statins and Isosorbide -Hypothyroidism-on Synthroid -Lumbosacral radiculopathy/degenerative disc disease- will obtain pain pump/? spinal stimulator implantation records from Dr. Vergara -GI/DVT prophylaxis- on Lovenox 30 mg SQ once daily, SCDs and JEFFREY hose thigh high -Fall precautions. -Further medical management per primary team.
[2017-09-01 16:15] LABS: Bedside Glucose 451 mg/dL (70-110)
--- NOTE | 2017-09-01 17:04 | NURSING ---
Dr. Dewitt aware of blood glucose 451 and lab back up 451 and patient is asymptomatic. Dr. Dewitt aware that regular pancake syrup was found in trash can today and not sugar free. Diet had been changed per Rupa FROST to 1800 ginette carb control diet. Patient given diabetic teaching and human resources leader also aware to do teaching as well.
[2017-09-01 17:12] LABS: Glucose 438 mg/dL (74-106)
--- NOTE | 2017-09-01 17:43 | NURSING ---
New order per REGIONAL MAINTENANCE MANAGER Rupa Jake for UA due to elevated wbc and frequency of urine. [place] aware of elevated blood sugars as well. New order for UA and culture if indicated.
[2017-09-01 18:35] LABS: Bedside Glucose 471 mg/dL (70-110)
--- NOTE | 2017-09-01 18:45 | NURSING ---
Lab back up here at this time for glucose meter reading of 471 and patient asymptomatic.
[2017-09-01 19:03] LABS: Glucose 458 mg/dL (74-106)
--- NOTE | 2017-09-01 19:17 | NURSING ---
Lab back up result received and hospitalist for night hours paged via diesel pile hammer operator.
[2017-09-01] MEDS: Insulin Lispro 100 UNIT/ML INSULN.PEN 8 UNIT SC (19:57)
[2017-09-01 20:34] LABS: Bacteria 0 SEEN /hpf (None Seen); Mucous, Urine 0 SEEN /hpf (<or=2+); Red Blood Cells-Urine 0 SEEN /hpf (0-5); White Blood Cells 0 SEEN /hpf (0-5)
[2017-09-01 20:47] LABS: Color, Urine Yellow (Yellow); Glucose, Dipstick 1000 mg/dl (Normal); Ketone-Dipstick Negative (Negative); Leukocyte Esterase-Dipstick 25 /ul (Negative); Nitrite-Dipstick Negative (Negative); Occult Blood-Urine Negative /ul (Negative); Protein-Dipstick Negative (Negative); Urine Bilirubin Dipstick Negative (Negative); Urine Clarity Clear (Clear); Urine Urobilinogen Normal (Normal)
[2017-09-01 20:49] LABS: Squamous Epithelial Cells - UA 0-5 SEEN /hpf (5-10)
--- NOTE | 2017-09-01 22:45 | NURSING ---
CRITICAL HIGH BEDSIDE BLOOD SUGAR. LAB CALLED TO DRAW GLUCOSE LEVEL ON PT. BULK FOLDER TO [facility] HOSPITALIST. PT UP TO BR TO VOID.
[2017-09-01 22:50] LABS: Bedside Glucose > 500 mg/dL (70-110)
--- NOTE | 2017-09-01 22:55 | NURSING ---
DR ONEAL NOTIFIED OF PT'S CRITICAL HIGH BLOOD SUGAR OF 502. ORDERS GIVEN.
[2017-09-01] MEDS: Insulin Lispro 100 UNIT/ML INSULN.PEN 18 UNIT SC (23:13)
[2017-09-02] VITALS (8 sets, daily range): BP systolic 117–159; BP diastolic 55–77; PULSE 70–80; RESP 17–20; TEMP 36.6–36.7; O2SAT 94
[2017-09-02 00:01] LABS: Glucose 551 mg/dL (74-106)
[2017-09-02] MEDS: Enoxaparin 30 MG/0.3 ML Syringe SC (06:16)
[2017-09-02] MEDS: hydrALAZINE 50 MG Tablet PO ×3 (06:16→19:50)
[2017-09-02] MEDS: Levothyroxine 88 MCG Tablet PO (06:16)
[2017-09-02] MEDS: Insulin Lispro 100 UNIT/ML INSULN.PEN 24 UNIT SC ×2 (06:55→17:18)
[2017-09-02] MEDS: Insulin Lispro 100 UNIT/ML INSULN.PEN SC ×3 (06:56→21:29)
[2017-09-02 07:05] LABS: Bedside Glucose 396 mg/dL (70-110)
[2017-09-02 07:26] LABS: Bedside Glucose 481 mg/dL (70-110)
[2017-09-02 07:26] LABS: Bedside Glucose > 500 mg/dL (70-110)
[2017-09-02] MEDS: Metoprolol Tartrate 25 MG Tablet PO ×2 (08:32→19:51)
[2017-09-02] MEDS: Pantoprazole Sodium 40 MG Tablet PO (08:32)
[2017-09-02] MEDS: Aspirin E.C. 81 MG Tablet PO (08:32)
[2017-09-02] MEDS: Isosorbide Mononitrate 30 MG Tablet PO (08:32)
[2017-09-02] MEDS: Gabapentin 300 MG Capsule PO ×2 (08:32→17:17)
[2017-09-02] MEDS: Clopidogrel Bisulfate 75 MG Tablet PO (08:32)
[2017-09-02] MEDS: Lisinopril 20 MG Tablet PO (08:32)
[2017-09-02] MEDS: amLODIPine 5 MG Tablet PO (08:32)
[2017-09-02] MEDS: morphine SR 15 MG Tablet PO (08:32)
[2017-09-02] MEDS: Tolterodine Tartrate 2 MG CAP.SA PO (08:33)
[2017-09-02] MEDS: Loratadine 10 MG Tablet PO (08:33)
[2017-09-02 11:26] LABS: Bedside Glucose 87 mg/dL (70-110)
[2017-09-02 12:45] LABS: Bedside Glucose 78 mg/dL (70-110)
[2017-09-02 14:51] LABS: Bedside Glucose 197 mg/dL (70-110)
--- NOTE | 2017-09-02 15:42 | CASEMGMT ---
Insurance Continued stay approved with next update due on 09/05/17 Auth#[id number] Nadia ARREDONDO, POULTRY VACCINATOR
[2017-09-02 16:06] LABS: Bedside Glucose 285 mg/dL (70-110)
--- NOTE | 2017-09-02 16:19 | PN.NEURO_ITS ---
Subjective: Patient seen and examined. During the night the patient's blood sugars where in the 200's and 300's. Then they started dropping into the high 70's during the day. Will continue to monitor if they start to raise during the night again will increase her evening Lantus dose. She is tolerating therapy and doing well , No issues with GI/. - Physical Exam General: Alert, Oriented x3, Cooperative HEENT: Atraumatic, PERRLA, EOMI, Normocephalic Neck: Supple, No JVD, Negative Carotid Bruits Lungs: Clear to auscultation, Normal air movement Cardiovascular: Regular rate, No murmurs Abdomen: Bowel Sounds Present, Soft, Non Tender Extremities: No edema, Capillary Refill Less than 3 Seconds Skin: No rashes, No breakdown Musculoskeletal: No Tenderness to Palpation of Joints or Extremities Neurological: Cranial nerves II-XII grossly intact Psych/Mental Status: Normal Affect, Appropriate, Alert and oriented to time, place, person, mood and affect Vital Signs Temp Pulse Resp BP Pulse Ox 97.8 F 77 20 H 117/63 94 09/02/17 07:30 09/02/17 14:46 09/02/17 07:30 09/02/17 14:46 09/02/17 07:30 Oxygen Delivery Method Room Air Weight: 70.5 kg Body Mass Index (BMI) 26.6 Finger Stick Blood Glucose 500 Intake and Output for Last 24 Hours 08/31/17 09/01/17 09/02/17 23:59 23:59 23:59 Intake Total 940 / 940 1150 / 1150 120 / 120 Output Total 400 / 400 350 / 350 Balance 540 / 540 800 / 800 120 / 120 Laboratory Tests Past 24 Hrs 09/01/17 09/01/17 09/01/17 16:28 18:45 20:05 Glucose 438 H 458 H* Urine Color Yellow Urine Clarity Clear Urine pH 6.0 Ur Specific [place] 1.010 Urine Protein Negative Urine Glucose (UA) 1000 H Urine Ketones Negative Urine Occult Blood Negative Urine Nitrite Negative Urine Bilirubin Negative Urine Urobilinogen Normal Ur Leukocyte Esterase 25 H Urine RBC 0 SEEN Urine WBC 0 SEEN Ur Squamous Epith Cells 0-5 SEEN Urine Bacteria 0 SEEN Urine Mucus 0 SEEN 09/01/17 22:50 Glucose 551 H* Urine Color Urine Clarity Urine pH Ur Specific [place] Urine Protein Urine Glucose (UA) Urine Ketones Urine Occult Blood Urine Nitrite Urine Bilirubin Urine Urobilinogen Ur Leukocyte Esterase Urine RBC Urine WBC Ur Squamous Epith Cells Urine Bacteria Urine Mucus POC Glucose 09/02/17 09/02/17 09/02/17 16:00 14:43 12:29 POC Glucose 285 H 197 H 78 09/02/17 09/02/17 09/01/17 11:13 06:22 22:38 POC Glucose 87 396 H > 500 H* 09/01/17 08/30/17 08/30/17 18:28 12:36 12:31 POC Glucose 471 H* 481 H* > 500 H* Active Medications Amlodipine Besylate (Norvasc) 5 mg PO DAILY [facility] Last Admin: 09/02/17 08:32 Dose: 5 mg Aspirin (Ecotrin) 81 mg PO DAILY@0800 [facility] Last Admin: 09/02/17 08:32 Dose: 81 mg Bisacodyl (Dulcolax) 10 mg RECTAL .PRN X 1 PRN PRN Reason: Constipation Cholecalciferol ([facility]itamin [facility]) [facility] Last Admin: 09/02/17 08:32 Dose: 2,000 unit Clopidogrel Bisulfate (Plavix) 75 mg PO DAILY [facility] Last Admin: 09/02/17 08:32 Dose: 75 mg Enoxaparin Sodium (Lovenox) 30 mg SC DAILY@0600 [facility] Last Admin: 09/02/17 06:16 Dose: 30 mg Gabapentin ([facility]ontin) [facility] Last Admin: 09/02/17 08:32 Dose: 300 mg Hydralazine HCl (Apresoline) 50 mg PO TID [facility] Last Admin: 09/02/17 14:46 Dose: 50 mg Insulin Glargine (Lantus (Bkc)) 50 units SC BID [facility] Last Admin: 09/02/17 08:31 Dose: 50 u Insulin Human Lispro (Humalog Kwikpen (Bkc)) 0 unit SC [facility] PRN Reason: Protocol Last Admin: 09/02/17 11:47 Dose: Not Given Insulin Human Lispro (Humalog Kwikpen (Bkc)) 24 unit SC TIDAC [facility] Last Admin: 09/02/17 11:48 Dose: Not Given Isosorbide Mononitrate (Imdur) 30 mg PO DAILY [facility] Last Admin: 09/02/17 08:32 Dose: 30 mg Levothyroxine Sodium (Synthroid) 88 mcg PO DAILY@0600 [facility] Last Admin: 09/02/17 06:16 Dose: 88 mcg Lisinopril (Zestril) 20 mg PO DAILY [facility] Last Admin: 09/02/17 08:32 Dose: 20 mg Loratadine (Claritin) 10 mg PO DAILY [facility] Last Admin: 09/02/17 08:33 Dose: 10 mg Magnesium Hydroxide (Milk Of Magnesia) 30 ml PO .PRN X 1 PRN PRN Reason: Constipation Metoprolol Tartrate (Lopressor (Beta Pancho)) 25 mg PO BID [facility] Last Admin: 09/02/17 08:32 Dose: 25 mg Morphine Sulfate (Ms Contin) 15 mg PO DAILY [facility] Last Admin: 09/02/17 08:32 Dose: 15 mg Pantoprazole Sodium (Protonix) 40 mg PO DAILY [facility] Last Admin: 09/02/17 08:32 Dose: 40 mg Senna/Docusate Sodium (Senokot-S, Heydi-Colace) 2 tablet PO BID [facility] Last Admin: 09/02/17 08:34 Dose: Not Given Tolterodine Tartrate (Detrol La) 2 mg PO DAILY [facility] Last Admin: 09/02/17 08:33 Dose: 2 mg Medical Necessity - Tobacco Use Smoking Status: Never smoker Assessment/Plan All Active Problems (Last Reviewed 08/25/17 @ 17:39 by Yuriy Browning DO) Debility (Acute) Hyperkalemia (Resolved) Third nerve palsy (Resolved) Debility s/p expressive aphasia and probable TIA, found to have left internal carotid artery stenosis. Complicated by uncontrolled type 2 diabetes mellitus. goal of rehab is rastafari of functional independence. Plan -PT for gait stability -OT for ADLs -Bowel protocol -Analgesics per protocol -HTN- On amlodipine, lisinopril, metoprolol, and hydralazine, goal BP < 130/80 mmHg -HLD- on Lipitor 40 mg PO q hs -TIA- aphasia resolved, on dual AP with ASA/Plavix for 3 weeks then switch to single AP, on Lipitor. -Carotid stenosis-needs to see vascular surgery CECILY after discharge from Rehab , hospitalist tried to contact Dr. Wooten during inpatient but is on vacation -DM- Blood sugars are uncontrolled, has been greater than 350, is on Lantus 50 units BID, Humalog 20 units TIS and sliding scale insulin. discussed with Dr. Dewitt who discharged patient to rehab about the uncontrolled BS, per Dr. Dewitt her BS have been this high for a long time and will be very difficult to get it below 200s at present, discussed the need for close hospitalist monitoring to control the BS and he agrees with the same. Is on Metformin but pharmacy wants the same to be changed due to CKD and low creatinine clearance, will defer to hospitalist for further change in DM medications. IF BS goes over 500 then will need to transfer patient back to inpatient hospital setting. Will also obtain Endocrinology consult, if not possible then will need to get Endocrinology outpatient referral on Friday for better DM control -CAD- on ASA, statins and Isosorbide -Hypothyroidism-on Synthroid -Lumbosacral radiculopathy/degenerative disc disease- will obtain pain pump/? spinal stimulator implantation records from Dr. Vergara -GI/DVT prophylaxis- on Lovenox 30 mg SQ once daily, SCDs and JEFFREY hose thigh high -Fall precautions. -Further medical management per primary team.
[2017-09-02 22:26] LABS: Bedside Glucose 346 mg/dL (70-110)
[2017-09-03] VITALS (9 sets, daily range): BP systolic 128–155; BP diastolic 68–78; PULSE 68–89; RESP 17–18; TEMP 36.5–37; O2SAT 96–100
[2017-09-03 03:05] LABS: Bedside Glucose 255 mg/dL (70-110)
[2017-09-03 05:41] LABS: Bedside Glucose 274 mg/dL (70-110)
[2017-09-03] MEDS: hydrALAZINE 50 MG Tablet PO ×3 (06:00→20:05)
[2017-09-03] MEDS: Enoxaparin 30 MG/0.3 ML Syringe SC (06:03)
[2017-09-03] MEDS: Levothyroxine 88 MCG Tablet PO (06:04)
[2017-09-03 07:01] LABS: Bedside Glucose 395 mg/dL (70-110)
[2017-09-03] MEDS: amLODIPine 5 MG Tablet PO (08:21)
[2017-09-03] MEDS: Metoprolol Tartrate 25 MG Tablet PO ×2 (08:21→20:06)
[2017-09-03] MEDS: morphine SR 15 MG Tablet PO (08:21)
[2017-09-03] MEDS: Pantoprazole Sodium 40 MG Tablet PO (08:21)
[2017-09-03] MEDS: Lisinopril 20 MG Tablet PO (08:21)
[2017-09-03] MEDS: Clopidogrel Bisulfate 75 MG Tablet PO (08:21)
[2017-09-03] MEDS: Tolterodine Tartrate 2 MG CAP.SA PO (08:21)
[2017-09-03] MEDS: Aspirin E.C. 81 MG Tablet PO (08:22)
[2017-09-03] MEDS: Gabapentin 300 MG Capsule PO ×2 (08:22→17:39)
[2017-09-03] MEDS: Insulin Lispro 100 UNIT/ML INSULN.PEN SC ×3 (08:22→22:25)
[2017-09-03] MEDS: Loratadine 10 MG Tablet PO (08:22)
[2017-09-03] MEDS: Isosorbide Mononitrate 30 MG Tablet PO (08:22)
[2017-09-03] MEDS: Insulin Lispro 100 UNIT/ML INSULN.PEN 24 UNIT SC ×3 (08:23→17:40)
--- NOTE | 2017-09-03 10:35 | PCM.PN.NEU ---
Subjective: Patient seen and examined. No acute events overnight. Tolerating therapy, denies any blurry vision, or double vision. No issues with GI/. - Physical Exam General: Alert, Oriented x3, Cooperative HEENT: Atraumatic, PERRLA, EOMI, Normocephalic Neck: Supple, No JVD, Negative Carotid Bruits Lungs: Clear to auscultation, Normal air movement Cardiovascular: Regular rate, No murmurs Abdomen: Bowel Sounds Present, Soft, Non Tender Extremities: No edema, Capillary Refill Less than 3 Seconds Skin: No rashes, No breakdown Musculoskeletal: No Tenderness to Palpation of Joints or Extremities Neurological: Cranial nerves II-XII grossly intact Psych/Mental Status: Normal Affect, Appropriate, Alert and oriented to time, place, person, mood and affect Vital Signs Temp Pulse Resp BP Pulse Ox 98.6 F 72 18 137/78 H 100 09/03/17 07:49 09/03/17 08:26 09/03/17 08:26 09/03/17 08:21 09/03/17 08:26 Oxygen Delivery Method Room Air Weight: 72.7 kg Body Mass Index (BMI) 26.6 Finger Stick Blood Glucose 500 Intake and Output for Last 24 Hours 09/01/17 09/02/17 09/03/17 23:59 23:59 23:59 Intake Total 1150 / 1150 120 / 120 Output Total 350 / 350 Balance 800 / 800 120 / 120 POC Glucose 09/03/17 09/03/17 09/03/17 06:52 05:32 02:57 POC Glucose 395 H 274 H 255 H 09/02/17 09/02/17 09/02/17 21:28 16:00 14:43 POC Glucose 346 H 285 H 197 H 09/02/17 09/02/17 12:29 11:13 POC Glucose 78 87 Active Medications Amlodipine Besylate (Norvasc) 5 mg PO DAILY [facility] Last Admin: 09/03/17 08:21 Dose: 5 mg Aspirin (Ecotrin) 81 mg PO DAILY@0800 [facility] Last Admin: 09/03/17 08:22 Dose: 81 mg Bisacodyl (Dulcolax) 10 mg RECTAL .PRN X 1 PRN PRN Reason: Constipation [facility] Admin: 09/03/17 08:22 Dose: 2,000 unit Clopidogrel Bisulfate (Plavix) 75 mg PO DAILY [facility] Last Admin: 09/03/17 08:21 Dose: 75 mg Enoxaparin Sodium (Lovenox) 30 mg SC DAILY@0600 [facility] Last Admin: 09/03/17 06:03 Dose: 30 mg [facility] Last Admin: 09/03/17 08:22 Dose: 300 mg Hydralazine HCl (Apresoline) 50 mg PO TID [facility] Last Admin: 09/03/17 06:00 Dose: 50 mg Insulin Glargine (Lantus (Bkc)) 50 units SC BID [facility] Last Admin: 09/03/17 08:22 Dose: 50 u Insulin Human Lispro (Humalog Kwikpen (Bkc)) 0 unit SC ACHS [facility] PRN Reason: Protocol Last Admin: 09/03/17 08:22 Dose: 14 units Insulin Human Lispro (Humalog Kwikpen (Bkc)) 24 unit SC TIDAC [facility] Last Admin: 09/03/17 08:23 Dose: 24 units Isosorbide Mononitrate (Imdur) 30 mg PO DAILY [facility] Last Admin: 09/03/17 08:22 Dose: 30 mg Levothyroxine Sodium (Synthroid) 88 mcg PO DAILY@0600 [facility] Last Admin: 09/03/17 06:04 Dose: 88 mcg Lisinopril (Zestril) 20 mg PO DAILY [facility] Last Admin: 09/03/17 08:21 Dose: 20 mg Loratadine (Claritin) 10 mg PO DAILY [facility] Last Admin: 09/03/17 08:22 Dose: 10 mg Magnesium Hydroxide (Milk Of Magnesia) 30 ml PO .PRN X 1 PRN PRN Reason: Constipation Metoprolol Tartrate (Lopressor (Beta Pancho)) 25 mg PO BID [facility] Last Admin: 09/03/17 08:21 Dose: 25 mg Morphine Sulfate (Ms Contin) 15 mg PO DAILY [facility] Last Admin: 09/03/17 08:21 Dose: 15 mg Pantoprazole Sodium (Protonix) 40 mg PO DAILY [facility] Last Admin: 09/03/17 08:21 Dose: 40 mg Senna/Docusate Sodium (Senokot-S, Heydi-Colace) 2 tablet PO BID [facility] Last Admin: 09/03/17 09:16 Dose: Not Given Tolterodine Tartrate (Detrol La) 2 mg PO DAILY [facility] Last Admin: 09/03/17 08:21 Dose: 2 mg Medical Necessity - Tobacco Use Smoking Status: Never smoker Assessment/Plan All Active Problems (Last Reviewed 08/25/17 @ 17:39 by Yuriy Browning DO) Debility (Acute) Hyperkalemia (Resolved) Third nerve palsy (Resolved) Debility s/p expressive aphasia and probable TIA, found to have left internal carotid artery stenosis. Complicated by uncontrolled type 2 diabetes mellitus. goal of rehab is [facility] of functional independence. Plan -PT for gait stability -OT for ADLs -Bowel protocol -Analgesics per protocol -HTN- On amlodipine, lisinopril, metoprolol, and hydralazine, goal BP < 130/80 mmHg -HLD- on Lipitor 40 mg PO q hs -TIA- aphasia resolved, on dual AP with ASA/Plavix for 3 weeks then switch to single AP, on Lipitor. -Carotid stenosis-needs to see vascular surgery [facility] after discharge from Rehab, hospitalist tried to contact Dr. Wooten during inpatient but is on vacation -DM- Blood sugars are uncontrolled, has been greater than 350, is on Lantus 50 units BID, Humalog 20 units TIS and sliding scale insulin. discussed with Dr. Dewitt who discharged patient to rehab about the uncontrolled BS, per Dr. Dewitt her BS have been this high for a long time and will be very difficult to get it below 200s at present, discussed the need for close hospitalist monitoring to control the BS and he agrees with the same. Is on Metformin but pharmacy wants the same to be changed due to CKD and low creatinine clearance, will defer to hospitalist for further change in DM medications. IF BS goes over 500 then will need to transfer patient back to inpatient hospital setting. Will also obtain Endocrinology consult, if not possible then will need to get Endocrinology outpatient referral on Friday for better DM control - Amanda Phenomenon blood sugars continue to raise during the night and drop during the day, will increase her evening dose of Lantus tonight. -CAD- on ASA, statins and Isosorbide -Hypothyroidism-on Synthroid -Lumbosacral radiculopathy/degenerative disc disease- will obtain pain pump/?spinal stimulator implantation records from Dr. Vergara -GI/DVT prophylaxis- on Lovenox 30 mg SQ once daily, SCDs and JEFFREY hose thigh high -Fall precautions. -Further medical management per primary team.
--- NOTE | 2017-09-03 10:41 | PN.NEURO_ITS ---
Subjective: Patient seen and examined. No acute events overnight. Tolerating therapy, denies any blurry vision, or double vision. No issues with GI/. - Physical Exam General: Alert, Oriented x3, Cooperative HEENT: Atraumatic, PERRLA, EOMI, Normocephalic Neck: Supple, No JVD, Negative Carotid Bruits Lungs: Clear to auscultation, Normal air movement Cardiovascular: Regular rate, No murmurs Abdomen: Bowel Sounds Present, Soft, Non Tender Extremities: No edema, Capillary Refill Less than 3 Seconds Skin: No rashes, No breakdown Musculoskeletal: No Tenderness to Palpation of Joints or Extremities Neurological: Cranial nerves II-XII grossly intact Psych/Mental Status: Normal Affect, Appropriate, Alert and oriented to time, place, person, mood and affect Vital Signs Temp Pulse Resp BP Pulse Ox 98.6 F 72 18 137/78 H 100 09/03/17 07:49 09/03/17 08:26 09/03/17 08:26 09/03/17 08:21 09/03/17 08:26 Oxygen Delivery Method Room Air Weight: 72.7 kg Body Mass Index (BMI) 26.6 Finger Stick Blood Glucose 500 Intake and Output for Last 24 Hours 09/01/17 09/02/17 09/03/17 23:59 23:59 23:59 Intake Total 1150 / 1150 120 / 120 Output Total 350 / 350 Balance 800 / 800 120 / 120 POC Glucose 09/03/17 09/03/17 09/03/17 06:52 05:32 02:57 POC Glucose 395 H 274 H 255 H 09/02/17 09/02/17 09/02/17 21:28 16:00 14:43 POC Glucose 346 H 285 H 197 H 09/02/17 09/02/17 12:29 11:13 POC Glucose 78 87 Active Medications Amlodipine Besylate (Norvasc) 5 mg PO DAILY [facility] Last Admin: 09/03/17 08:21 Dose: 5 mg Aspirin (Ecotrin) 81 mg PO DAILY@0800 [facility] Last Admin: 09/03/17 08:22 Dose: 81 mg Bisacodyl (Dulcolax) 10 mg RECTAL .PRN X 1 PRN PRN Reason: Constipation Cholecalciferol (Vitamin D) 2,[facility] Last Admin: 09/03/17 08:22 Dose: 2,000 unit Clopidogrel Bisulfate (Plavix) 75 mg PO DAILY [facility] Last Admin: 09/03/17 08:21 Dose: 75 mg Enoxaparin Sodium (Lovenox) 30 mg SC DAILY@0600 [facility] Last Admin: 09/03/17 06:03 Dose: 30 mg Gabapentin (Neurontin) [facility] Last Admin: 09/03/17 08:22 Dose: 300 mg Hydralazine HCl (Apresoline) 50 mg PO TID [facility] Last Admin: 09/03/17 06:00 Dose: 50 mg Insulin Glargine (Lantus (Bkc)) 50 units SC BID [facility] Last Admin: 09/03/17 08:22 Dose: 50 u Insulin Human Lispro (Humalog Kwikpen (Bkc)) 0 unit SC ACHS [facility] PRN Reason: Protocol Last Admin: 09/03/17 08:22 Dose: 14 units Insulin Human Lispro (Humalog Kwikpen (Bkc)) 24 unit SC TIDAC [facility] Last Admin: 09/03/17 08:23 Dose: 24 units Isosorbide Mononitrate (Imdur) 30 mg PO DAILY [facility] Last Admin: 09/03/17 08:22 Dose: 30 mg Levothyroxine Sodium (Synthroid) 88 mcg PO DAILY@0600 [facility] Last Admin: 09/03/17 06:04 Dose: 88 mcg Lisinopril (Zestril) 20 mg PO DAILY [facility] Last Admin: 09/03/17 08:21 Dose: 20 mg Loratadine (Claritin) 10 mg PO DAILY [facility] Last Admin: 09/03/17 08:22 Dose: 10 mg Magnesium Hydroxide (Milk Of Magnesia) 30 ml PO .PRN X 1 PRN PRN Reason: Constipation Metoprolol Tartrate (Lopressor (Beta Pancho)) 25 mg PO BID [facility] Last Admin: 09/03/17 08:21 Dose: 25 mg Morphine Sulfate (Ms Contin) 15 mg PO DAILY [facility] Last Admin: 09/03/17 08:21 Dose: 15 mg Pantoprazole Sodium (Protonix) 40 mg PO DAILY [facility] Last Admin: 09/03/17 08:21 Dose: 40 mg Senna/Docusate Sodium (Senokot-S, Heydi-Colace) 2 tablet PO BID [facility] Last Admin: 09/03/17 09:16 Dose: Not Given Tolterodine Tartrate (Detrol La) 2 mg PO DAILY [facility] Last Admin: 09/03/17 08:21 Dose: 2 mg Medical Necessity - Tobacco Use Smoking Status: Never smoker Assessment/Plan All Active Problems (Last Reviewed 08/25/17 @ 17:39 by Yuriy Browning DO) Debility (Acute) Hyperkalemia (Resolved) Third nerve palsy (Resolved) Debility s/p expressive aphasia and probable TIA, found to have left internal carotid artery stenosis. Complicated by uncontrolled type 2 diabetes mellitus. goal of rehab is [facility] of functional independence. Plan -PT for gait stability -OT for ADLs -Bowel protocol -Analgesics per protocol -HTN- On amlodipine, lisinopril, metoprolol, and hydralazine, goal BP < 130/80 mmHg -HLD- on Lipitor 40 mg PO q hs -TIA- aphasia resolved, on dual AP with ASA/Plavix for 3 weeks then switch to single AP, on Lipitor. -Carotid stenosis-needs to see vascular surgery [facility] after discharge from Rehab , hospitalist tried to contact Dr. Wooten during inpatient but is on vacation -DM- Blood sugars are uncontrolled, has been greater than 350, is on Lantus 50 units BID, Humalog 20 units TIS and sliding scale insulin. discussed with Dr. Dewitt who discharged patient to rehab about the uncontrolled BS, per Dr. Dewitt her BS have been this high for a long time and will be very difficult to get it below 200s at present, discussed the need for close hospitalist monitoring to control the BS and he agrees with the same. Is on Metformin but pharmacy wants the same to be changed due to CKD and low creatinine clearance, will defer to hospitalist for further change in DM medications. IF BS goes over 500 then will need to transfer patient back to inpatient hospital setting. Will also obtain Endocrinology consult, if not possible then will need to get Endocrinology outpatient referral on Friday for better DM control - Amanda Phenomenon blood sugars continue to raise during the night and drop during the day, will increase her evening dose of Lantus tonight. -CAD- on ASA, statins and Isosorbide -Hypothyroidism-on Synthroid -Lumbosacral radiculopathy/degenerative disc disease- will obtain pain pump/? spinal stimulator implantation records from Dr. Vergara -GI/DVT prophylaxis- on Lovenox 30 mg SQ once daily, SCDs and JEFFREY hose thigh high -Fall precautions. -Further medical management per primary team.
[2017-09-03 12:06] LABS: Bedside Glucose 273 mg/dL (70-110)
--- NOTE | 2017-09-03 14:26 | PCM.PROGNOTE ---
Subjective: Chief complaint: Follow-up after consultation for medical management after admission to inpatient rehabilitation unit for expressive aphasia and probable TIA, left internal carotid artery stenosis and uncontrolled type 2 diabetes mellitus. Patient seen and examined. No acute events overnight. She denies any significant complaints. Blood sugar has been improving. Her vital signs are stable. - Physical Exam General: Alert, Oriented x3, Cooperative, No apparent distress HEENT: Atraumatic, PERRLA, EOMI, Normocephalic Oral: Moist Mucosa, No Gingival or Mucosal Lesions/ Ulcerations Neck: Supple, No JVD, Negative Carotid Bruits, Trachea Midline, Thyroid Normal Size and Texture Lungs: Clear to auscultation, Normal air movement, No rhonchi, No wheeze, No rales Cardiovascular: Regular rate, Regular Rhythm, Normal S1, Normal S2, PMI Normal Abdomen: Bowel Sounds Present, Soft, Non Tender, Non-Distended, No Hepato-splenomegaly Extremities: No clubbing, No cyanosis, No edema Skin: No rashes, No breakdown Lymphatic: No Cervical, Supraclavicular, or Inguinal Adenopathy Neurological: Cranial nerves II-XII grossly intact, Motor Exam 5/5 strength throughout Psych/Mental Status: Normal Affect, Appropriate, Alert and oriented to time, place, person, mood and affect Vital Signs Temp Pulse Resp BP Pulse Ox 98.6 F 68 18 128/68 H 100 09/03/17 07:49 09/03/17 13:17 09/03/17 08:26 09/03/17 13:17 09/03/17 08:26 Oxygen Delivery Method Room Air Weight: 160 lb 4.417 oz Body Mass Index (BMI) 26.6 Finger Stick Blood Glucose 500 Intake and Output for Last 24 Hours 09/01/17 09/02/17 09/03/17 23:59 23:59 23:59 Intake Total 1150 / 1150 120 / 120 220 / 220 Output Total 350 / 350 Balance 800 / 800 120 / 120 220 / 220 POC Glucose 09/03/17 09/03/17 09/03/17 11:42 06:52 05:32 POC Glucose 273 H 395 H 274 H 09/03/17 09/02/17 09/02/17 02:57 21:28 16:00 POC Glucose 255 H 346 H 285 H 09/02/17 14:43 POC Glucose 197 H Medical Necessity - Tobacco Use Smoking Status: Never smoker Assessment/Plan All Active Problems (Last Reviewed 08/25/17 @ 17:39 by Yuriy Browning DO) Debility (Acute) Hyperkalemia (Resolved) Third nerve palsy (Resolved) This is a 81 years old female patient admitted to inpatient rehab rotation unit from the hospital floor after was admitted for expressive aphasia and probable TIA, found to have left internal carotid artery stenosis and also uncontrolled type 2 diabetes mellitus. #1 expressive aphasia/probable TIA: Acute stroke without. She has no more symptoms. CT scan brain done 3 times and was negative for acute stroke. CTA of the head revealed no hemodynamically significant vascular disease or stenosis. CTA of the neck revealed atherosclerotic plaque at the origin of the left internal carotid artery with greater than 70% stenosis. 2D echocardiogram revealed ejection fraction 65%, stage I diastolic dysfunction and no evidence of a significant valvular heart disease. MRI brain was not performed because patient had pain pump. She is on aspirin, Plavix and statins. Plan for PT OT according to rehab team. #2 left internal carotid artery stenosis: She is on aspirin and Plavix. Plan for vascular surgery evaluation as outpatient. #3 uncontrolled type 2 diabetes mellitus: Currently, she is on Lantus 50 units twice daily and pre-meal Humalog 24 units 3 times daily. Blood sugar started to improve, still in the range of 200-300 but improved. I reviewed her blood sugar readings at home from a paper that she brought from home and her blood sugar has been always in the range of 300-500 and she has been taking Lantus sliding scale which apparently a very small dose. Hemoglobin A1c was 10.3 on August,. In the last 48 hours, blood sugar has been in the 200 300s range, one reading of 395. Follow-up, blood sugars improving. Plan: Increase Lantus to 52 units twice daily, continues on dose of pre-meal Humalog. #4 stage III chronic kidney disease: Baseline creatinine has been around 1.3-1.8 mg/dL. most recent creatinine 1.54, stable at baseline. #5 hypertension: Blood pressure stable, continue Norvasc, hydralazine, lisinopril and metoprolol. #6 hypothyroidism: Continue levothyroxine. #7 CAD status post CABG: Stable, no acute issues. Continue aspirin, Plavix, isosorbide mononitrate, lisinopril and metoprolol. #8 DVT prophylaxis: Subcu Lovenox. This note was generated with [employer] dictation software. It may contain incorrect words, spelling, and punctuation that were not noted in checking the note before signing. Code Visit Inpatient E&M: 45192 Subs Hosp L2
--- NOTE | 2017-09-03 14:31 | PN_ITS ---
Subjective: Chief complaint: Follow-up after consultation for medical management after admission to inpatient rehabilitation unit for expressive aphasia and probable TIA, left internal carotid artery stenosis and uncontrolled type 2 diabetes mellitus. Patient seen and examined. No acute events overnight. She denies any significant complaints. Blood sugar has been improving. Her vital signs are stable. - Physical Exam General: Alert, Oriented x3, Cooperative, No apparent distress HEENT: Atraumatic, PERRLA, EOMI, Normocephalic Oral: Moist Mucosa, No Gingival or Mucosal Lesions/ Ulcerations Neck: Supple, No JVD, Negative Carotid Bruits, Trachea Midline, Thyroid Normal Size and Texture Lungs: Clear to auscultation, Normal air movement, No rhonchi, No wheeze, No rales Cardiovascular: Regular rate, Regular Rhythm, Normal S1, Normal S2, PMI Normal Abdomen: Bowel Sounds Present, Soft, Non Tender, Non-Distended, No Hepato- splenomegaly Extremities: No clubbing, No cyanosis, No edema Skin: No rashes, No breakdown Lymphatic: No Cervical, Supraclavicular, or Inguinal Adenopathy Neurological: Cranial nerves II-XII grossly intact, Motor Exam 5/5 strength throughout Psych/Mental Status: Normal Affect, Appropriate, Alert and oriented to time, place, person, mood and affect Vital Signs Temp Pulse Resp BP Pulse Ox 98.6 F 68 18 128/68 H 100 09/03/17 07:49 09/03/17 13:17 09/03/17 08:26 09/03/17 13:17 09/03/17 08:26 Oxygen Delivery Method Room Air Weight: 160 lb 4.417 oz Body Mass Index (BMI) 26.6 Finger Stick Blood Glucose 500 Intake and Output for Last 24 Hours 09/01/17 09/02/17 09/03/17 23:59 23:59 23:59 Intake Total 1150 / 1150 120 / 120 220 / 220 Output Total 350 / 350 Balance 800 / 800 120 / 120 220 / 220 POC Glucose 09/03/17 09/03/17 09/03/17 11:42 06:52 05:32 POC Glucose 273 H 395 H 274 H 09/03/17 09/02/17 09/02/17 02:57 21:28 16:00 POC Glucose 255 H 346 H 285 H 09/02/17 14:43 POC Glucose 197 H Medical Necessity - Tobacco Use Smoking Status: Never smoker Assessment/Plan All Active Problems (Last Reviewed 08/25/17 @ 17:39 by Yuriy Browning DO) Debility (Acute) Hyperkalemia (Resolved) Third nerve palsy (Resolved) This is a 81 years old female patient admitted to inpatient rehab rotation unit from the hospital floor after was admitted for expressive aphasia and probable TIA, found to have left internal carotid artery stenosis and also uncontrolled type 2 diabetes mellitus. #1 expressive aphasia/probable TIA: Acute stroke without. She has no more symptoms. CT scan brain done 3 times and was negative for acute stroke. CTA of the head revealed no hemodynamically significant vascular disease or stenosis. CTA of the neck revealed atherosclerotic plaque at the origin of the left internal carotid artery with greater than 70% stenosis. 2D echocardiogram revealed ejection fraction 65%, stage I diastolic dysfunction and no evidence of a significant valvular heart disease. MRI brain was not performed because patient had pain pump. She is on aspirin, Plavix and statins. Plan for PT OT according to rehab team. #2 left internal carotid artery stenosis: She is on aspirin and Plavix. Plan for vascular surgery evaluation as outpatient. #3 uncontrolled type 2 diabetes mellitus: Currently, she is on Lantus 50 units twice daily and pre-meal Humalog 24 units 3 times daily. Blood sugar started to improve, still in the range of 200-300 but improved. I reviewed her blood sugar readings at home from a paper that she brought from home and her blood sugar has been always in the range of 300-500 and she has been taking Lantus sliding scale which apparently a very small dose. Hemoglobin A1c was 10.3 on August,. In the last 48 hours, blood sugar has been in the 200 300s range, one reading of 395. Follow-up, blood sugars improving. Plan: Increase Lantus to 52 units twice daily, continues on dose of pre-meal Humalog. #4 stage III chronic kidney disease: Baseline creatinine has been around 1.3- 1.8 mg/dL. most recent creatinine 1.54, stable at baseline. #5 hypertension: Blood pressure stable, continue Norvasc, hydralazine, lisinopril and metoprolol. #6 hypothyroidism: Continue levothyroxine. #7 CAD status post CABG: Stable, no acute issues. Continue aspirin, Plavix, isosorbide mononitrate, lisinopril and metoprolol. #8 DVT prophylaxis: Subcu Lovenox. This note was generated with [employer] dictation software. It may contain incorrect words, spelling, and punctuation that were not noted in checking the note before signing. Code Visit Inpatient E&M: 87577 Subs Hosp L2
[2017-09-03 17:06] LABS: Bedside Glucose 87 mg/dL (70-110)
[2017-09-03 22:36] LABS: Bedside Glucose 197 mg/dL (70-110)
[2017-09-04 06:07] VITALS: PULSE 67
[2017-09-04] MEDS: Enoxaparin 30 MG/0.3 ML Syringe SC (06:07)
[2017-09-04] MEDS: Levothyroxine 88 MCG Tablet PO (06:07)
[2017-09-04] MEDS: hydrALAZINE 50 MG Tablet PO ×3 (06:07→21:33)
[2017-09-04 06:50] LABS: Bedside Glucose 236 mg/dL (70-110)
[2017-09-04] MEDS: Insulin Lispro 100 UNIT/ML INSULN.PEN SC ×3 (08:03→21:37)
[2017-09-04] MEDS: Insulin Lispro 100 UNIT/ML INSULN.PEN 24 UNIT SC ×3 (08:04→18:01)
[2017-09-04 08:05] VITALS: BP 132/66; PULSE 63
[2017-09-04] MEDS: Tolterodine Tartrate 2 MG CAP.SA PO (08:05)
[2017-09-04] MEDS: Lisinopril 20 MG Tablet PO (08:05)
[2017-09-04] MEDS: Metoprolol Tartrate 25 MG Tablet PO ×2 (08:05→21:33)
[2017-09-04] MEDS: Pantoprazole Sodium 40 MG Tablet PO (08:05)
[2017-09-04] MEDS: amLODIPine 5 MG Tablet PO (08:05)
[2017-09-04] MEDS: Gabapentin 300 MG Capsule PO ×2 (08:07→18:00)
[2017-09-04] MEDS: Aspirin E.C. 81 MG Tablet PO (08:07)
[2017-09-04] MEDS: Isosorbide Mononitrate 30 MG Tablet PO (08:07)
[2017-09-04] MEDS: Loratadine 10 MG Tablet PO (08:08)
[2017-09-04] MEDS: Clopidogrel Bisulfate 75 MG Tablet PO (08:08)
[2017-09-04 08:20] VITALS: BP 132/66; PULSE 63; RESP 18; TEMP 36.5; O2SAT 96
--- NOTE | 2017-09-04 08:22 | NURSING ---
pt refusing stone hose this morning does not want to wear until after Dr morton this afternoon. This RN explained importance of teds d/t risk of blood clots, pt still refusing to wear.
--- NOTE | 2017-09-04 09:03 | PCM.PN.NEU ---
Subjective: Staffed in team meeting. Family at bedside, questions answered. With Physical therapy,she is stand by for getting in and out of the bed. She is able to walk greater than 100 feet with out a device, at standby assist, she has stumbled a little but no loss of balance. She has been out walking in the community at stand by assist. She performed a cogitative TUG at 13.4 seconds. With Occupational therapy, she is able to do all her own personal care at stand by assist.With Speech therapy, she still has some expressive aphasia has improved some since her admission, she continues to have issues with her higher level cogitative function such as attention, sequencing, planning and problem solving. Will continue to work on these issues while she is here. With Nursing her Blood sugars are improving with the latest adjustments, she has an appointment with Dr. Vergara on Friday at 2:15. Will re-team her again next 09/11. - Physical Exam General: Alert, Oriented x3, Cooperative HEENT: Atraumatic, PERRLA, EOMI, Normocephalic Neck: Supple, No JVD, Negative Carotid Bruits Lungs: Clear to auscultation, Normal air movement Cardiovascular: Regular rate, No murmurs Abdomen: Bowel Sounds Present, Soft, Non Tender Extremities: No edema, Capillary Refill Less than 3 Seconds Skin: No rashes, No breakdown Musculoskeletal: No Tenderness to Palpation of Joints or Extremities Neurological: Cranial nerves II-XII grossly intact Psych/Mental Status: Normal Affect, Appropriate, Alert and oriented to time, place, person, mood and affect Vital Signs Temp Pulse Resp BP Pulse Ox 97.7 F L 63 18 132/66 H 96 09/04/17 08:20 09/04/17 08:20 09/04/17 08:20 09/04/17 08:20 09/04/17 08:20 Oxygen Delivery Method Room Air Weight: 72.7 kg Body Mass Index (BMI) 26.6 Finger Stick Blood Glucose 500 Intake and Output for Last 24 Hours 09/02/17 09/03/17 09/04/17 23:59 23:59 23:59 Intake Total 120 / 120 460 / 460 Balance 120 / 120 460 / 460 POC Glucose 09/04/17 09/03/17 09/03/17 06:42 22:23 16:54 POC Glucose 236 H 197 H 87 09/03/17 11:42 POC Glucose 273 H Active Medications Amlodipine Besylate (Norvasc) 5 mg PO DAILY [facility] Last Admin: 09/04/17 08:05 Dose: 5 mg Aspirin (Ecotrin) 81 mg PO DAILY@0800 [facility] Last Admin: 09/04/17 08:07 Dose: 81 mg Bisacodyl (Dulcolax) 10 mg RECTAL .PRN X 1 PRN PRN Reason: Constipation [facility] Admin: 09/04/17 08:08 Dose: 2,000 unit Clopidogrel Bisulfate (Plavix) 75 mg PO DAILY [facility] Last Admin: 09/04/17 08:08 Dose: 75 mg Enoxaparin Sodium (Lovenox) 30 mg SC DAILY@0600 [facility] Last Admin: 09/04/17 06:07 Dose: 30 mg [facility]in) [facility] Last Admin: 09/04/17 08:07 Dose: 300 mg Hydralazine HCl (Apresoline) 50 mg PO TID [facility] Last Admin: 09/04/17 06:07 Dose: 50 mg Insulin Glargine (Lantus (Bkc)) 52 units SC BID [facility] Last Admin: 09/04/17 10:20 Dose: 52 u Insulin Human Lispro (Humalog Kwikpen (Bkc)) 0 unit SC ACHS [facility] PRN Reason: Protocol Last Admin: 09/04/17 08:03 Dose: 6 units Insulin Human Lispro (Humalog Kwikpen (Bkc)) 24 unit SC TIDAC [facility] Last Admin: 09/04/17 08:04 Dose: 24 units Isosorbide Mononitrate (Imdur) 30 mg PO DAILY [facility] Last Admin: 09/04/17 08:07 Dose: 30 mg Levothyroxine Sodium (Synthroid) 88 mcg PO DAILY@0600 [facility] Last Admin: 09/04/17 06:07 Dose: 88 mcg Lisinopril (Zestril) 20 mg PO DAILY [facility] Last Admin: 09/04/17 08:05 Dose: 20 mg Loratadine (Claritin) 10 mg PO DAILY [facility] Last Admin: 09/04/17 08:08 Dose: 10 mg Magnesium Hydroxide (Milk Of Magnesia) 30 ml PO .PRN X 1 PRN PRN Reason: Constipation Metoprolol Tartrate (Lopressor (Beta Pancho)) 25 mg PO BID [facility] Last Admin: 09/04/17 08:05 Dose: 25 mg Morphine Sulfate (Ms Contin) 15 mg PO DAILY [facility] Last Admin: 09/04/17 10:21 Dose: 15 mg Pantoprazole Sodium (Protonix) 40 mg PO DAILY [facility] Last Admin: 09/04/17 08:05 Dose: 40 mg Senna/Docusate Sodium (Senokot-S, Heydi-Colace) 2 tablet PO BID [facility] Last Admin: 09/04/17 08:09 Dose: Not Given Tolterodine Tartrate (Detrol La) 2 mg PO DAILY [facility] Last Admin: 09/04/17 08:05 Dose: 2 mg Medical Necessity - Tobacco Use Smoking Status: Never smoker Assessment/Plan All Active Problems (Last Reviewed 08/25/17 @ 17:39 by Yuriy Browning DO) Debility (Acute) Hyperkalemia (Resolved) Third nerve palsy (Resolved) Debility s/p expressive aphasia and probable TIA, found to have left internal carotid artery stenosis. Complicated by uncontrolled type 2 diabetes mellitus. goal of rehab is congregation of functional independence. Plan -PT for gait stability -OT for ADLs -Bowel protocol -Analgesics per protocol -HTN- On amlodipine, lisinopril, metoprolol, and hydralazine, goal BP < 130/80 mmHg -HLD- on Lipitor 40 mg PO q hs -TIA- aphasia resolved, on dual AP with ASA/Plavix for 3 weeks then switch to single AP, on Lipitor. -Carotid stenosis-needs to see vascular surgery [facility] after discharge from Rehab, hospitalist tried to contact Dr. Wooten during inpatient but is on vacation -DM- Blood sugars are uncontrolled, has been greater than 350, is on Lantus 50 units BID, Humalog 20 units TIS and sliding scale insulin. discussed with Dr. Dewitt who discharged patient to rehab about the uncontrolled BS, per Dr. Dewitt her BS have been this high for a long time and will be very difficult to get it below 200s at present, discussed the need for close hospitalist monitoring to control the BS and he agrees with the same. Is on Metformin but pharmacy wants the same to be changed due to CKD and low creatinine clearance, will defer to hospitalist for further change in DM medications. IF BS goes over 500 then will need to transfer patient back to inpatient hospital setting. Will also obtain Endocrinology consult, if not possible then will need to get Endocrinology outpatient referral on Friday for better DM control - Amanda Phenomenon blood sugars continue to raise during the night and drop during the day, will increase her evening dose of Lantus tonight. -CAD- on ASA, statins and Isosorbide -Hypothyroidism-on Synthroid -Lumbosacral radiculopathy/degenerative disc disease- will obtain pain pump/?spinal stimulator implantation records from Dr. Vergara -GI/DVT prophylaxis- on Lovenox 30 mg SQ once daily, SCDs and JEFFREY ciarae thigh high -Fall precautions.
[2017-09-04] MEDS: morphine SR 15 MG Tablet PO (10:21)
--- NOTE | 2017-09-04 11:18 | CASEMGMT ---
Team meeting held. Patient present as well as patient spouse. No discharge date set at this time. Team wanting to continue with further care and treatment at this time. Patient plans to discharge home with spouse at time of discharge. Patient with insurance update due on 09/05/17 and is aware that continued stay approval is not guaranteed. Support given. Will continue to follow. Nadia ARREDONDO, JOURNEYMAN POWERHOUSE OPERATOR
[2017-09-04 11:45] LABS: Bedside Glucose 195 mg/dL (70-110)
--- NOTE | 2017-09-04 13:53 | NURSING ---
pt off floor for outside appt.
--- NOTE | 2017-09-04 15:30 | NURSING ---
pt returned from outside appt.
[2017-09-04 15:33] VITALS: BP 139/68; PULSE 81
[2017-09-04 16:41] LABS: Bedside Glucose 95 mg/dL (70-110)
[2017-09-04 21:32] VITALS: BP 139/64; PULSE 81; RESP 18; TEMP 36.4; O2SAT 94
[2017-09-04 21:33] VITALS: BP 139/64; PULSE 81
[2017-09-04 22:02] LABS: Bedside Glucose 157 mg/dL (70-110)
--- NOTE | 2017-09-05 04:48 | NURSING ---
REVIEWED AND AGREE WITH CRAB BUTCHER'S FIM AND HANDOFF CHARTING.
[2017-09-05 06:51] VITALS: BP 133/64; PULSE 67
[2017-09-05] MEDS: Enoxaparin 30 MG/0.3 ML Syringe SC (06:51)
[2017-09-05] MEDS: hydrALAZINE 50 MG Tablet PO ×3 (06:51→21:31)
[2017-09-05] MEDS: Levothyroxine 88 MCG Tablet PO (06:52)
[2017-09-05 07:10] LABS: Bedside Glucose 253 mg/dL (70-110)
[2017-09-05] MEDS: Insulin Lispro 100 UNIT/ML INSULN.PEN 24 UNIT SC ×3 (07:40→17:08)
[2017-09-05] MEDS: Insulin Lispro 100 UNIT/ML INSULN.PEN SC ×3 (07:40→17:08)
[2017-09-05 07:41] VITALS: PULSE 72
[2017-09-05] MEDS: Clopidogrel Bisulfate 75 MG Tablet PO (07:41)
[2017-09-05] MEDS: Gabapentin 300 MG Capsule PO ×2 (07:41→17:08)
[2017-09-05] MEDS: Pantoprazole Sodium 40 MG Tablet PO (07:41)
[2017-09-05] MEDS: Loratadine 10 MG Tablet PO (07:41)
[2017-09-05] MEDS: Metoprolol Tartrate 25 MG Tablet PO ×2 (07:41→21:31)
[2017-09-05] MEDS: Tolterodine Tartrate 2 MG CAP.SA PO (07:41)
[2017-09-05] MEDS: Isosorbide Mononitrate 30 MG Tablet PO (07:43)
[2017-09-05] MEDS: Aspirin E.C. 81 MG Tablet PO (07:43)
[2017-09-05] MEDS: Lisinopril 20 MG Tablet PO (07:44)
[2017-09-05] MEDS: morphine SR 15 MG Tablet PO (08:57)
[2017-09-05] MEDS: amLODIPine 5 MG Tablet PO (08:57)
[2017-09-05 09:13] VITALS: BP 133/64; PULSE 67; RESP 16; TEMP 36.4; O2SAT 95
--- NOTE | 2017-09-05 10:21 | CASEMGMT ---
Insurance Clinical information faxed. Pending continued stay approval at this time. Auth#[id number] Nadia ARREDONDO, CORPORATE TRAINING MANAGER
[2017-09-05 11:36] LABS: Bedside Glucose 166 mg/dL (70-110)
--- NOTE | 2017-09-05 13:00 | NURSING ---
This nurse called [facility]UR[facility] Agarwal office for referral to her office per Dr. Sherman request for Endocrinology consult and message left for return call back due to office closed today.
[2017-09-05 13:36] VITALS: PULSE 73
--- NOTE | 2017-09-05 16:23 | PCM.PN.NEU ---
Subjective: Patient seen and examined. No new complaints. Tolerating therapy. Denies any headaches, blurry vision, double vision or dizziness. Blood sugars are improving will continue to monitor and make adjustments as needed. - Physical Exam General: Alert, Oriented x3, Cooperative HEENT: Atraumatic, PERRLA, EOMI, Normocephalic Neck: Supple, No JVD, Negative Carotid Bruits Lungs: Clear to auscultation, Normal air movement Cardiovascular: Regular rate, No murmurs Abdomen: Bowel Sounds Present, Soft, Non Tender Extremities: No edema, Capillary Refill Less than 3 Seconds Skin: No rashes, No breakdown Musculoskeletal: No Tenderness to Palpation of Joints or Extremities Neurological: Cranial nerves II-XII grossly intact Psych/Mental Status: Normal Affect, Appropriate, Alert and oriented to time, place, person, mood and affect Vital Signs Temp Pulse Resp BP Pulse Ox 97.5 F L 73 16 133/64 H 95 09/05/17 09:13 09/05/17 13:36 09/05/17 09:13 09/05/17 09:13 09/05/17 09:13 Oxygen Delivery Method Room Air Weight: 72.7 kg Body Mass Index (BMI) 26.6 Finger Stick Blood Glucose 500 Intake and Output for Last 24 Hours 09/03/17 09/04/17 09/05/17 23:59 23:59 23:59 Intake Total 460 / 460 720 / 720 460 / 460 Balance 460 / 460 720 / 720 460 / 460 Microbiology Past 72 Hours 09/01/17 20:05 Urine Culture - Final Urine, Clean Catch Mixed Gram Positive Organisms POC Glucose 09/05/17 09/05/17 09/04/17 11:28 06:54 21:36 POC Glucose 166 H 253 H 157 H 09/04/17 16:31 POC Glucose 95 Active Medications Amlodipine Besylate (Norvasc) 5 mg PO DAILY [facility] Last Admin: 09/05/17 08:57 Dose: 5 mg Aspirin (Ecotrin) 81 mg PO DAILY@0800 [facility] Last Admin: 09/05/17 07:43 Dose: 81 mg Bisacodyl (Dulcolax) 10 mg RECTAL .PRN X 1 PRN PRN Reason: Constipation Cholecalcifer[facility] ([facility]amin [facility]) [facility] Admin: 09/05/17 07:41 Dose: 2,000 unit Clopidogrel Bisulfate (Plavix) 75 mg PO DAILY [facility] Last Admin: 09/05/17 07:41 Dose: 75 mg Enoxaparin Sodium (Lovenox) 30 mg SC DAILY@0600 [facility] Last Admin: 09/05/17 06:51 Dose: 30 mg Gabapentin ([facility]urontin) [facility] Last Admin: 09/05/17 07:41 Dose: 300 mg Hydralazine HCl (Apresoline) 50 mg PO TID [facility] Last Admin: 09/05/17 13:36 Dose: 50 mg Insulin Glargine (Lantus (Bkc)) 52 units SC BID [facility] Last Admin: 09/05/17 08:58 Dose: 52 u Insulin Human Lispro (Humalog Kwikpen (Bkc)) 0 unit SC ACHS [facility] PRN Reason: Protocol Last Admin: 09/05/17 12:02 Dose: 3 units Insulin Human Lispro (Humalog Kwikpen (Bkc)) 24 unit SC TIDAC [facility] Last Admin: 09/05/17 12:02 Dose: 24 units Isosorbide Mononitrate (Imdur) 30 mg PO DAILY [facility] Last Admin: 09/05/17 07:43 Dose: 30 mg Levothyroxine Sodium (Synthroid) 88 mcg PO DAILY@0600 [facility] Last Admin: 09/05/17 06:52 Dose: 88 mcg Lisinopril (Zestril) 20 mg PO DAILY [facility] Last Admin: 09/05/17 07:44 Dose: 20 mg Loratadine (Claritin) 10 mg PO DAILY [facility] Last Admin: 09/05/17 07:41 Dose: 10 mg Magnesium Hydroxide (Milk Of Magnesia) 30 ml PO .PRN X 1 PRN PRN Reason: Constipation Metoprolol Tartrate (Lopressor (Beta Pancho)) 25 mg PO BID [facility] Last Admin: 09/05/17 07:41 Dose: 25 mg Morphine Sulfate (Ms Contin) 15 mg PO DAILY [facility] Last Admin: 09/05/17 08:57 Dose: 15 mg Pantoprazole Sodium (Protonix) 40 mg PO DAILY [facility] Last Admin: 09/05/17 07:41 Dose: 40 mg Senna/Docusate Sodium (Senokot-S, Heydi-Colace) 2 tablet PO BID [facility] Last Admin: 09/05/17 07:45 Dose: Not Given Tolterodine Tartrate (Detrol La) 2 mg PO DAILY [facility] Last Admin: 09/05/17 07:41 Dose: 2 mg Medical Necessity - Tobacco Use Smoking Status: Never smoker Assessment/Plan All Active Problems (Last Reviewed 08/25/17 @ 17:39 by Yuriy Browning DO) Debility (Acute) Hyperkalemia (Resolved) Third nerve palsy (Resolved) Debility s/p expressive aphasia and probable TIA, found to have left internal carotid artery stenosis. Complicated by uncontrolled type 2 diabetes mellitus. goal of rehab is [facility] of functional independence. Plan -PT for gait stability -OT for ADLs -Bowel protocol -Analgesics per protocol -HTN- On amlodipine, lisinopril, metoprolol, and hydralazine, goal BP < 130/80 mmHg -HLD- on Lipitor 40 mg PO q hs -TIA- aphasia resolved, on dual AP with ASA/Plavix for 3 weeks then switch to single AP, on Lipitor. -Carotid stenosis-needs to see vascular surgery [facility] after discharge from Rehab, hospitalist tried to contact Dr. Wooten during inpatient but is on vacation -DM- Blood sugars are uncontrolled, has been greater than 350, is on Lantus 50 units BID, Humalog 20 units TIS and sliding scale insulin. discussed with Dr. Dewitt who discharged patient to rehab about the uncontrolled BS, per Dr. Dewitt her BS have been this high for a long time and will be very difficult to get it below 200s at present, discussed the need for close hospitalist monitoring to control the BS and he agrees with the same. Is on Metformin but pharmacy wants the same to be changed due to CKD and low creatinine clearance, will defer to hospitalist for further change in DM medications. IF BS goes over 500 then will need to transfer patient back to inpatient hospital setting. Will also obtain Endocrinology consult, if not possible then will need to get Endocrinology outpatient referral on Friday for better DM control - Amanda Phenomenon blood sugars continue to raise during the night and drop during the day, will increase her evening dose of Lantus tonight. -CAD- on ASA, statins and Isosorbide -Hypothyroidism-on Synthroid -Lumbosacral radiculopathy/degenerative disc disease- will obtain pain pump/?spinal stimulator implantation records from Dr. Vergara -GI/DVT prophylaxis- on Lovenox 30 mg SQ once daily, SCDs and JEFFREY hose thigh high -Fall precautions.
--- NOTE | 2017-09-05 16:26 | PN.NEURO_ITS ---
Subjective: Patient seen and examined. No new complaints. Tolerating therapy. Denies any headaches, blurry vision, double vision or dizziness. Blood sugars are improving will continue to monitor and make adjustments as needed. - Physical Exam General: Alert, Oriented x3, Cooperative HEENT: Atraumatic, PERRLA, EOMI, Normocephalic Neck: Supple, No JVD, Negative Carotid Bruits Lungs: Clear to auscultation, Normal air movement Cardiovascular: Regular rate, No murmurs Abdomen: Bowel Sounds Present, Soft, Non Tender Extremities: No edema, Capillary Refill Less than 3 Seconds Skin: No rashes, No breakdown Musculoskeletal: No Tenderness to Palpation of Joints or Extremities Neurological: Cranial nerves II-XII grossly intact Psych/Mental Status: Normal Affect, Appropriate, Alert and oriented to time, place, person, mood and affect Vital Signs Temp Pulse Resp BP Pulse Ox 97.5 F L 73 16 133/64 H 95 09/05/17 09:13 09/05/17 13:36 09/05/17 09:13 09/05/17 09:13 09/05/17 09:13 Oxygen Delivery Method Room Air Weight: 72.7 kg Body Mass Index (BMI) 26.6 Finger Stick Blood Glucose 500 Intake and Output for Last 24 Hours 09/03/17 09/04/17 09/05/17 23:59 23:59 23:59 Intake Total 460 / 460 720 / 720 460 / 460 Balance 460 / 460 720 / 720 460 / 460 Microbiology Past 72 Hours 09/01/17 20:05 Urine Culture - Final Urine, Clean Catch Mixed Gram Positive Organisms POC Glucose 09/05/17 09/05/17 09/04/17 11:28 06:54 21:36 POC Glucose 166 H 253 H 157 H 09/04/17 16:31 POC Glucose 95 Active Medications Amlodipine Besylate (Norvasc) 5 mg PO DAILY [facility] Last Admin: 09/05/17 08:57 Dose: 5 mg Aspirin (Ecotrin) 81 mg PO DAILY@0800 [facility] Last Admin: 09/05/17 07:43 Dose: 81 mg Bisacodyl (Dulcolax) 10 mg RECTAL .PRN X 1 PRN PRN Reason: Constipation Cholecalciferol ([facility]itamin [facility]) [facility] Admin: 09/05/17 07:41 Dose: 2,000 unit Clopidogrel Bisulfate (Plavix) 75 mg PO DAILY [facility] Last Admin: 09/05/17 07:41 Dose: 75 mg Enoxaparin Sodium (Lovenox) 30 mg SC DAILY@0600 [facility] Last Admin: 09/05/17 06:51 Dose: 30 mg Gabapentin ([facility]urontin) [facility] Last Admin: 09/05/17 07:41 Dose: 300 mg Hydralazine HCl (Apresoline) 50 mg PO TID [facility] Last Admin: 09/05/17 13:36 Dose: 50 mg Insulin Glargine (Lantus (Bkc)) 52 units SC BID [facility] Last Admin: 09/05/17 08:58 Dose: 52 u Insulin Human Lispro (Humalog Kwikpen (Bkc)) 0 unit SC ACHS [facility] PRN Reason: Protocol Last Admin: 09/05/17 12:02 Dose: 3 units Insulin Human Lispro (Humalog Kwikpen (Bkc)) 24 unit SC TIDAC [facility] Last Admin: 09/05/17 12:02 Dose: 24 units Isosorbide Mononitrate (Imdur) 30 mg PO DAILY [facility] Last Admin: 09/05/17 07:43 Dose: 30 mg Levothyroxine Sodium (Synthroid) 88 mcg PO DAILY@0600 [facility] Last Admin: 09/05/17 06:52 Dose: 88 mcg Lisinopril (Zestril) 20 mg PO DAILY [facility] Last Admin: 09/05/17 07:44 Dose: 20 mg Loratadine (Claritin) 10 mg PO DAILY [facility] Last Admin: 09/05/17 07:41 Dose: 10 mg Magnesium Hydroxide (Milk Of Magnesia) 30 ml PO .PRN X 1 PRN PRN Reason: Constipation Metoprolol Tartrate (Lopressor (Beta Pancho)) 25 mg PO BID [facility] Last Admin: 09/05/17 07:41 Dose: 25 mg Morphine Sulfate (Ms Contin) 15 mg PO DAILY [facility] Last Admin: 09/05/17 08:57 Dose: 15 mg Pantoprazole Sodium (Protonix) 40 mg PO DAILY [facility] Last Admin: 09/05/17 07:41 Dose: 40 mg Senna/Docusate Sodium (Senokot-S, Heydi-Colace) 2 tablet PO BID [facility] Last Admin: 09/05/17 07:45 Dose: Not Given Tolterodine Tartrate (Detrol La) 2 mg PO DAILY [facility] Last Admin: 09/05/17 07:41 Dose: 2 mg Medical Necessity - Tobacco Use Smoking Status: Never smoker Assessment/Plan All Active Problems (Last Reviewed 08/25/17 @ 17:39 by Yuriy Browning DO) Debility (Acute) Hyperkalemia (Resolved) Third nerve palsy (Resolved) Debility s/p expressive aphasia and probable TIA, found to have left internal carotid artery stenosis. Complicated by uncontrolled type 2 diabetes mellitus. goal of rehab is [facility] of functional independence. Plan -PT for gait stability -OT for ADLs -Bowel protocol -Analgesics per protocol -HTN- On amlodipine, lisinopril, metoprolol, and hydralazine, goal BP < 130/80 mmHg -HLD- on Lipitor 40 mg PO q hs -TIA- aphasia resolved, on dual AP with ASA/Plavix for 3 weeks then switch to single AP, on Lipitor. -Carotid stenosis-needs to see vascular surgery [facility] after discharge from Rehab , hospitalist tried to contact Dr. Wooten during inpatient but is on vacation -DM- Blood sugars are uncontrolled, has been greater than 350, is on Lantus 50 units BID, Humalog 20 units TIS and sliding scale insulin. discussed with Dr. Dewitt who discharged patient to rehab about the uncontrolled BS, per Dr. Dewitt her BS have been this high for a long time and will be very difficult to get it below 200s at present, discussed the need for close hospitalist monitoring to control the BS and he agrees with the same. Is on Metformin but pharmacy wants the same to be changed due to CKD and low creatinine clearance, will defer to hospitalist for further change in DM medications. IF BS goes over 500 then will need to transfer patient back to inpatient hospital setting. Will also obtain Endocrinology consult, if not possible then will need to get Endocrinology outpatient referral on Friday for better DM control - Amanda Phenomenon blood sugars continue to raise during the night and drop during the day, will increase her evening dose of Lantus tonight. -CAD- on ASA, statins and Isosorbide -Hypothyroidism-on Synthroid -Lumbosacral radiculopathy/degenerative disc disease- will obtain pain pump/? spinal stimulator implantation records from Dr. Vergara -GI/DVT prophylaxis- on Lovenox 30 mg SQ once daily, SCDs and JEFFREY hose thigh high -Fall precautions.
[2017-09-05 16:31] LABS: Bedside Glucose 176 mg/dL (70-110)
[2017-09-05 19:44] VITALS: BP 143/65; PULSE 76; RESP 16; TEMP 36.8; O2SAT 93
[2017-09-05 21:31] VITALS: BP 143/65; PULSE 76
[2017-09-05 21:51] LABS: Bedside Glucose 121 mg/dL (70-110)
[2017-09-06] VITALS (7 sets, daily range): BP systolic 126–149; BP diastolic 63–74; PULSE 66–81; RESP 16; TEMP 36.6–37.1; O2SAT 94
--- NOTE | 2017-09-06 01:55 | NURSING ---
Reviewed and agree with LPNs fims and handoff
--- NOTE | 2017-09-06 05:58 | NURSING ---
Upon entering room to wake pt, pt noted to be sitting in recliner fully clothed. When asked, pt stated she had gotten up and showered self. prior to incident, pt was wearing PA and in pajamas in bed. BA not in place d/t pt compliance with call light in days prior to incident. call light use reinforced. pt re-educated on safety with showers and needing to call for transfers. PA and CA intact at this time. pt acknowledges the need for safety measures and call light use.
[2017-09-06] MEDS: Levothyroxine 88 MCG Tablet PO (06:55)
[2017-09-06] MEDS: Enoxaparin 30 MG/0.3 ML Syringe SC (06:55)
[2017-09-06] MEDS: hydrALAZINE 50 MG Tablet PO ×3 (06:55→21:08)
[2017-09-06 07:11] LABS: Bedside Glucose 315 mg/dL (70-110)
[2017-09-06] MEDS: Gabapentin 300 MG Capsule PO ×2 (07:47→17:18)
[2017-09-06] MEDS: Aspirin E.C. 81 MG Tablet PO (07:47)
[2017-09-06] MEDS: Insulin Lispro 100 UNIT/ML INSULN.PEN SC ×4 (07:47→21:19)
[2017-09-06] MEDS: Insulin Lispro 100 UNIT/ML INSULN.PEN 24 UNIT SC ×3 (07:48→17:13)
[2017-09-06] MEDS: Tolterodine Tartrate 2 MG CAP.SA PO (08:52)
[2017-09-06] MEDS: Isosorbide Mononitrate 30 MG Tablet PO (08:52)
[2017-09-06] MEDS: amLODIPine 5 MG Tablet PO (08:52)
[2017-09-06] MEDS: Pantoprazole Sodium 40 MG Tablet PO (08:52)
[2017-09-06] MEDS: Lisinopril 20 MG Tablet PO (08:52)
[2017-09-06] MEDS: Metoprolol Tartrate 25 MG Tablet PO ×2 (08:52→21:08)
[2017-09-06] MEDS: Clopidogrel Bisulfate 75 MG Tablet PO (08:52)
[2017-09-06] MEDS: Loratadine 10 MG Tablet PO (08:52)
[2017-09-06] MEDS: Senna/Docusate Sodium 1 Tablet 2 TABLET PO (08:52)
[2017-09-06] MEDS: morphine SR 15 MG Tablet PO (08:56)
[2017-09-06 12:11] LABS: Bedside Glucose 282 mg/dL (70-110)
[2017-09-06 17:25] LABS: Bedside Glucose 331 mg/dL (70-110)
[2017-09-06 21:21] LABS: Bedside Glucose 182 mg/dL (70-110)
[2017-09-07] VITALS (7 sets, daily range): BP systolic 118–145; BP diastolic 61–69; PULSE 73–84; RESP 16–18; TEMP 36.6–36.9; O2SAT 95
--- NOTE | 2017-09-07 01:19 | NURSING ---
Reviewed and agree with LPNs fims and handoff
[2017-09-07] MEDS: Enoxaparin 30 MG/0.3 ML Syringe SC (05:18)
[2017-09-07] MEDS: hydrALAZINE 50 MG Tablet PO ×3 (05:19→20:57)
[2017-09-07] MEDS: Levothyroxine 88 MCG Tablet PO (05:19)
[2017-09-07 06:50] LABS: Bedside Glucose 223 mg/dL (70-110)
[2017-09-07] MEDS: Metoprolol Tartrate 25 MG Tablet PO ×2 (07:52→20:58)
[2017-09-07] MEDS: Lisinopril 20 MG Tablet PO (07:52)
[2017-09-07] MEDS: Tolterodine Tartrate 2 MG CAP.SA PO (07:52)
[2017-09-07] MEDS: Loratadine 10 MG Tablet PO (07:53)
[2017-09-07] MEDS: amLODIPine 5 MG Tablet PO (07:53)
[2017-09-07] MEDS: Clopidogrel Bisulfate 75 MG Tablet PO (07:53)
[2017-09-07] MEDS: Aspirin E.C. 81 MG Tablet PO (07:53)
[2017-09-07] MEDS: morphine SR 15 MG Tablet PO (07:53)
[2017-09-07] MEDS: Gabapentin 300 MG Capsule PO ×2 (07:53→16:28)
[2017-09-07] MEDS: Isosorbide Mononitrate 30 MG Tablet PO (07:53)
[2017-09-07] MEDS: Pantoprazole Sodium 40 MG Tablet PO (07:53)
[2017-09-07] MEDS: Insulin Lispro 100 UNIT/ML INSULN.PEN SC ×3 (07:54→16:58)
[2017-09-07] MEDS: Insulin Lispro 100 UNIT/ML INSULN.PEN 24 UNIT SC ×3 (07:54→16:58)
[2017-09-07 11:16] LABS: Bedside Glucose 423 mg/dL (70-110)
--- NOTE | 2017-09-07 11:34 | NURSING ---
patient ambulated > [address] x supervision
--- NOTE | 2017-09-07 16:50 | PCM.PROGNOTE ---
Subjective: Chief complaint: Follow-up after consultation for medical management after admission to inpatient rehabilitation unit for expressive aphasia and probable TIA, left internal carotid artery stenosis and uncontrolled type 2 diabetes mellitus. Patient seen and examined. No acute events overnight. She denies any significant complaints. Her vital signs are stable. - Physical Exam General: Alert, Oriented x3, Cooperative, No apparent distress HEENT: Atraumatic, PERRLA, EOMI, Normocephalic Oral: Moist Mucosa, No Gingival or Mucosal Lesions/ Ulcerations Neck: Supple, No JVD, Negative Carotid Bruits, Trachea Midline, Thyroid Normal Size and Texture Lungs: Clear to auscultation, No rhonchi, No wheeze, No rales Cardiovascular: Regular rate, Regular Rhythm, Normal S1, Normal S2, PMI Normal Abdomen: Bowel Sounds Present, Soft, Non Tender, Non-Distended, No Hepato-splenomegaly Extremities: No clubbing, No cyanosis, No edema Skin: No rashes, No breakdown Lymphatic: No Cervical, Supraclavicular, or Inguinal Adenopathy Neurological: Cranial nerves II-XII grossly intact, Motor Exam 5/5 strength throughout Psych/Mental Status: Normal Affect, Appropriate, Alert and oriented to time, place, person, mood and affect Vital Signs Temp Pulse Resp BP Pulse Ox 97.8 F 77 18 118/61 95 09/07/17 08:01 09/07/17 13:58 09/07/17 08:01 09/07/17 13:58 09/07/17 08:01 Oxygen Delivery Method Room Air Weight: 160 lb 4.417 oz Body Mass Index (BMI) 26.6 Finger Stick Blood Glucose 500 Intake and Output for Last 24 Hours 09/05/17 09/06/17 09/07/17 23:59 23:59 23:59 Intake Total 700 / 700 240 / 240 320 / 320 Balance 700 / 700 240 / 240 320 / 320 POC Glucose 09/07/17 09/07/17 09/06/17 11:06 06:45 21:17 POC Glucose 423 H 223 H 182 H 09/06/17 17:08 POC Glucose 331 H Medical Necessity - Tobacco Use Smoking Status: Never smoker Assessment/Plan All Active Problems (Last Reviewed 08/25/17 @ 17:39 by Yuriy Browning DO) Debility (Acute) Hyperkalemia (Resolved) Third nerve palsy (Resolved) This is a 81 years old female patient admitted to inpatient rehab rotation unit from the hospital floor after was admitted for expressive aphasia and probable TIA, found to have left internal carotid artery stenosis and also uncontrolled type 2 diabetes mellitus. #1 expressive aphasia/probable TIA: Stable, has no more symptoms. Acute stroke ruled out. She is on aspirin and Plavix. CT scan brain done 3 times and was negative for acute stroke. CTA of the head revealed no hemodynamically significant vascular disease or stenosis. CTA of the neck revealed atherosclerotic plaque at the origin of the left internal carotid artery with greater than 70% stenosis. 2D echocardiogram revealed ejection fraction 65%, stage I diastolic dysfunction and no evidence of a significant valvular heart disease. MRI brain was not performed because patient had pain pump. #2 left internal carotid artery stenosis: She is on aspirin and Plavix. Plan for vascular surgery evaluation as outpatient. #3 uncontrolled type 2 diabetes mellitus: I have been adjusting her Lantus and Humalog doses. At this time, she is on Lantus 50 units twice daily as well as Humalog 24 units pre-meal 3 times daily. Currently, she is on Lantus 50 units twice daily and pre-meal Humalog 24 units 3 times daily. All over, blood sugar seemed to be under better control although she is still having occasional blood sugars of 300-400. All over, it is getting better. Plan to continue same treatment for now. #4 stage III chronic kidney disease: Baseline creatinine has been around 1.3-1.8 mg/dL. most recent creatinine 1.54, stable at baseline. #5 hypertension: Blood pressure stable, continue Norvasc, hydralazine, lisinopril and metoprolol. #6 hypothyroidism: Continue levothyroxine. #7 CAD status post CABG: Stable, no acute issues. Continue aspirin, Plavix, isosorbide mononitrate, lisinopril and metoprolol. #8 DVT prophylaxis: Subcu Lovenox. This note was generated with [email or web address] dictation software. It may contain incorrect words, spelling, and punctuation that were not noted in checking the note before signing. Code Visit Inpatient E&M: 42905 Subs Hosp L2
--- NOTE | 2017-09-07 16:54 | PN_ITS ---
Subjective: Chief complaint: Follow-up after consultation for medical management after admission to inpatient rehabilitation unit for expressive aphasia and probable TIA, left internal carotid artery stenosis and uncontrolled type 2 diabetes mellitus. Patient seen and examined. No acute events overnight. She denies any significant complaints. Her vital signs are stable. - Physical Exam General: Alert, Oriented x3, Cooperative, No apparent distress HEENT: Atraumatic, PERRLA, EOMI, Normocephalic Oral: Moist Mucosa, No Gingival or Mucosal Lesions/ Ulcerations Neck: Supple, No JVD, Negative Carotid Bruits, Trachea Midline, Thyroid Normal Size and Texture Lungs: Clear to auscultation, No rhonchi, No wheeze, No rales Cardiovascular: Regular rate, Regular Rhythm, Normal S1, Normal S2, PMI Normal Abdomen: Bowel Sounds Present, Soft, Non Tender, Non-Distended, No Hepato- splenomegaly Extremities: No clubbing, No cyanosis, No edema Skin: No rashes, No breakdown Lymphatic: No Cervical, Supraclavicular, or Inguinal Adenopathy Neurological: Cranial nerves II-XII grossly intact, Motor Exam 5/5 strength throughout Psych/Mental Status: Normal Affect, Appropriate, Alert and oriented to time, place, person, mood and affect Vital Signs Temp Pulse Resp BP Pulse Ox 97.8 F 77 18 118/61 95 09/07/17 08:01 09/07/17 13:58 09/07/17 08:01 09/07/17 13:58 09/07/17 08:01 Oxygen Delivery Method Room Air Weight: 160 lb 4.417 oz Body Mass Index (BMI) 26.6 Finger Stick Blood Glucose 500 Intake and Output for Last 24 Hours 09/05/17 09/06/17 09/07/17 23:59 23:59 23:59 Intake Total 700 / 700 240 / 240 320 / 320 Balance 700 / 700 240 / 240 320 / 320 POC Glucose 09/07/17 09/07/17 09/06/17 11:06 06:45 21:17 POC Glucose 423 H 223 H 182 H 09/06/17 17:08 POC Glucose 331 H Medical Necessity - Tobacco Use Smoking Status: Never smoker Assessment/Plan All Active Problems (Last Reviewed 08/25/17 @ 17:39 by Yuriy Browning DO) Debility (Acute) Hyperkalemia (Resolved) Third nerve palsy (Resolved) This is a 81 years old female patient admitted to inpatient rehab rotation unit from the hospital floor after was admitted for expressive aphasia and probable TIA, found to have left internal carotid artery stenosis and also uncontrolled type 2 diabetes mellitus. #1 expressive aphasia/probable TIA: Stable, has no more symptoms. Acute stroke ruled out. She is on aspirin and Plavix. CT scan brain done 3 times and was negative for acute stroke. CTA of the head revealed no hemodynamically significant vascular disease or stenosis. CTA of the neck revealed atherosclerotic plaque at the origin of the left internal carotid artery with greater than 70% stenosis. 2D echocardiogram revealed ejection fraction 65%, stage I diastolic dysfunction and no evidence of a significant valvular heart disease. MRI brain was not performed because patient had pain pump. #2 left internal carotid artery stenosis: She is on aspirin and Plavix. Plan for vascular surgery evaluation as outpatient. #3 uncontrolled type 2 diabetes mellitus: I have been adjusting her Lantus and Humalog doses. At this time, she is on Lantus 50 units twice daily as well as Humalog 24 units pre-meal 3 times daily. Currently, she is on Lantus 50 units twice daily and pre-meal Humalog 24 units 3 times daily. All over, blood sugar seemed to be under better control although she is still having occasional blood sugars of 300-400. All over, it is getting better. Plan to continue same treatment for now. #4 stage III chronic kidney disease: Baseline creatinine has been around 1.3- 1.8 mg/dL. most recent creatinine 1.54, stable at baseline. #5 hypertension: Blood pressure stable, continue Norvasc, hydralazine, lisinopril and metoprolol. #6 hypothyroidism: Continue levothyroxine. #7 CAD status post CABG: Stable, no acute issues. Continue aspirin, Plavix, isosorbide mononitrate, lisinopril and metoprolol. #8 DVT prophylaxis: Subcu Lovenox. This note was generated with [employer] dictation software. It may contain incorrect words, spelling, and punctuation that were not noted in checking the note before signing. Code Visit Inpatient E&M: 57328 Subs Hosp L2
[2017-09-07 20:40] LABS: Bedside Glucose 196 mg/dL (70-110)
[2017-09-07 21:06] LABS: Bedside Glucose 96 mg/dL (70-110)
--- NOTE | 2017-09-07 23:14 | NURSING ---
Reviewed and agree with LPNs fims and handoff
[2017-09-08] VITALS (8 sets, daily range): BP systolic 128–145; BP diastolic 61–65; PULSE 63–83; RESP 16; TEMP 36.6; O2SAT 94–95
[2017-09-08 01:45] LABS: Bedside Glucose 161 mg/dL (70-110)
[2017-09-08] MEDS: Levothyroxine 88 MCG Tablet PO (06:46)
[2017-09-08] MEDS: Enoxaparin 30 MG/0.3 ML Syringe SC (06:46)
[2017-09-08] MEDS: hydrALAZINE 50 MG Tablet PO ×3 (06:46→21:38)
[2017-09-08 07:06] LABS: Bedside Glucose 190 mg/dL (70-110)
[2017-09-08] MEDS: Aspirin E.C. 81 MG Tablet PO (08:21)
[2017-09-08] MEDS: Lisinopril 20 MG Tablet PO (08:21)
[2017-09-08] MEDS: Clopidogrel Bisulfate 75 MG Tablet PO (08:21)
[2017-09-08] MEDS: morphine SR 15 MG Tablet PO (08:21)
[2017-09-08] MEDS: Pantoprazole Sodium 40 MG Tablet PO (08:21)
[2017-09-08] MEDS: Loratadine 10 MG Tablet PO (08:22)
[2017-09-08] MEDS: Metoprolol Tartrate 25 MG Tablet PO ×2 (08:22→21:37)
[2017-09-08] MEDS: Isosorbide Mononitrate 30 MG Tablet PO (08:22)
[2017-09-08] MEDS: Tolterodine Tartrate 2 MG CAP.SA PO (08:22)
[2017-09-08] MEDS: Gabapentin 300 MG Capsule PO ×2 (08:22→16:53)
[2017-09-08] MEDS: amLODIPine 5 MG Tablet PO (08:22)
[2017-09-08] MEDS: Insulin Lispro 100 UNIT/ML INSULN.PEN 28 UNIT SC (08:25)
[2017-09-08] MEDS: Insulin Lispro 100 UNIT/ML INSULN.PEN SC ×2 (08:27→11:25)
[2017-09-08] MEDS: Insulin Lispro 100 UNIT/ML INSULN.PEN 30 UNIT SC (11:24)
[2017-09-08 11:25] LABS: Bedside Glucose 168 mg/dL (70-110)
--- NOTE | 2017-09-08 12:28 | CASEMGMT ---
Social Work Nursing reporting that patient is requesting for a discharge date to be set. Spoke with patient in room. Patient requesting for discharge date to be set for 09/09/17. Spoke with team, 09/09/17 is an agreeable discharge date at this time. Team is recommending for patient to have 24hr care at time of discharge along with continue with speech therapy through outpatient services. Patient is reporting that patient spouse will be with patient at all times. Patient declining to continue with speech therapy at this time. Patient reporting to have all needed durable medical equipment already set up within the home. Patient spouse to provide transportation home for patient at time of discharge. Patient agreeable to this social media marketing specialist contacting patient spouse in regards to discharge plan. Telephone call to patient spouse, no answer - left voicemail. Support given. Proposed discharge date: 09/09/17 PLAN: Discharge to home with spouse. Nadia ARREDONDO, RETAIL DEPARTMENT MANAGER
[2017-09-08 16:46] LABS: Bedside Glucose 111 mg/dL (70-110)
[2017-09-08] MEDS: Insulin Lispro 100 UNIT/ML INSULN.PEN 24 UNIT SC (16:54)
--- NOTE | 2017-09-08 17:21 | DCINST_ITS ---
- Discharge Diagnoses Reason(s) for Visit for Discharge Instructions: CVA You will use the following diet at home:: Calorie/Carbohydrate Controlled ( specify 1200, 1400, etc) Your food should be the consistency of: Regular Your liquids should be the consistency of: Regular/Thin Discharge Activity: Return to Normal Activity, May Not Drive, May not drive while taking narcotic pain medications., May Shower, May Take a Tub Bath Weight Bearing Status: Full weight bearing Call your doctor if you observe: Fever of 101 or Higher, Coldness, Increased Pain, Numbness or Tingling, Change in Color, Inability to urinate, Inability to have a bowel movement, Using more than one pad per hour, Shortness of breath, Dizziness, Fainting spells, Swelling in the ankles, Chest pain, Prolonged hiccoughing, Increased palpitations (irregular heartbeat), Calf discomfort, Uncontrolled pain Allergies/Adverse Reactions: Allergies latex Allergy (Verified 07/29/17 14:47) Rash adhesive tape Adverse Reaction (Verified 07/29/17 14:47) Rash Medications to take at Discharge Lansoprazole [Prevacid] 30 mg PO DAILY 05/09/16 cholecalciferol (vitamin D3) 1,000 unit tablet 1,000 unit PO BID tab 04/21/17 hydralazine 50 mg tablet 50 mg PO TID 90 Days #270 04/22/17 lisinopril 20 mg tablet 20 mg PO DAILY 90 Days #90 04/22/17 Levothyroxine [Synthroid] 88 mcg PO DAILY 04/25/17 atorvastatin 40 mg tablet 40 mg PO DAILY #90 tab 06/30/17 metoprolol tartrate 25 mg tablet 25 mg PO BID #180 tab 08/04/17 Isosorbide Mononitrate [Isosorbide Mononitrate ER] 30 mg PO DAILY 08/25/17 Metformin(XR) [Glucophage Xr] 1,000 mg PO BID 08/25/17 Oxybutynin Chloride [Ditropan Xl] 10 mg PO DAILY 08/25/17 morphine SR tablet [Ms Contin] 15 mg PO DAILY 08/25/17 Amlodipine [Norvasc] 5 mg PO DAILY 08/30/17 Aspirin E.C. [Ecotrin] 81 mg PO DAILY@0800 08/30/17 Clopidogrel Bisulfate [Plavix] 75 mg PO DAILY 30 Days #60 tab 09/08/17 Gabapentin [Neurontin] 300 mg PO BIDCM 30 Days #60 cap 09/08/17 Insulin Glargine [Lantus SoloStar Pen] 40 units SC DAILY #1 pen 09/08/17 Insulin Glargine [Lantus SoloStar Pen] 52 units SC QHS #1 pen 09/08/17 Insulin Lispro [Humalog KwikPen] 24 unit SC 1600 #1 insuln.pen 09/08/17 Insulin Lispro [Humalog KwikPen] 28 unit SC 0700 #1 insuln.pen 09/08/17 Insulin Lispro [Humalog KwikPen] 30 unit SC 1100 #1 insuln.pen 09/08/17 Insulin Lispro [Humalog KwikPen] See Protocol SC TIDAC #1 insuln.pen 09/08/17 The following prescriptions were given: Clopidogrel Bisulfate [Plavix] 75 mg PO DAILY 30 Days #60 tab Insulin Glargine [Lantus SoloStar Pen] 40 units SC DAILY #1 pen Insulin Glargine [Lantus SoloStar Pen] 52 units SC QHS #1 pen Insulin Lispro [Humalog KwikPen] 24 unit SC 1600 #1 insuln.pen Insulin Lispro [Humalog KwikPen] 30 unit SC 1100 #1 insuln.pen Insulin Lispro [Humalog KwikPen] 28 unit SC 0700 #1 insuln.pen Insulin Lispro [Humalog KwikPen] See Protocol SC TIDAC #1 insuln.pen Gabapentin [Neurontin] 300 mg PO BIDCM 30 Days #60 cap Primary Care Physician: Fernando Kong MD [Primary Care Provider] - Test Results: Test results from this visit will be discussed in further detail at your follow- up appointment, if applicable. Please Follow Up With: DURAN Lebron Please Follow Up With: Dr Fernando Kyle Please Follow Up With: Rupa Joseph NP-C When: 11/03/17 @ 1PM Proposed Discharge Date: 09/09/17
--- NOTE | 2017-09-08 17:21 | PCM.RU.DC ---
Rehab Discharge Summary DATE OF ADMISSION: 08/30/17 DATE OF DISCHARGE: 730 - Rehab Diagnosis CVA Discharge Diet: 1800 Calorie Control Diet, Carb Control Diet Discharge Activity: Return to Normal Activity, May Not Drive, May not drive while taking narcotic pain medications., May Shower, May Take a Tub Bath Weight Bearing Status: Full weight bearing Call your doctor if you observe: Fever of 101 or Higher, Coldness, Increased Pain, Numbness or Tingling, Change in Color, Inability to urinate, Inability to have a bowel movement, Using more than one pad per hour, Shortness of breath, Dizziness, Fainting spells, Swelling in the ankles, Chest pain, Prolonged hiccoughing, Increased palpitations (irregular heartbeat), Calf discomfort, Uncontrolled pain Home Medications: Medications to take at Discharge Lansoprazole [Prevacid] 30 mg PO DAILY 05/09/16 cholecalciferol (vitamin D3) 1,000 unit tablet 1,000 unit PO BID tab 04/21/17 hydralazine 50 mg tablet 50 mg PO TID 90 Days #270 04/22/17 lisinopril 20 mg tablet 20 mg PO DAILY 90 Days #90 04/22/17 Levothyroxine [Synthroid] 88 mcg PO DAILY 04/25/17 atorvastatin 40 mg tablet 40 mg PO DAILY #90 tab 06/30/17 metoprolol tartrate 25 mg tablet 25 mg PO BID #180 tab 08/04/17 Isosorbide Mononitrate [Isosorbide Mononitrate ER] 30 mg PO DAILY 08/25/17 Metformin(XR) [Glucophage Xr] 1,000 mg PO BID 08/25/17 Oxybutynin Chloride [Ditropan Xl] 10 mg PO DAILY 08/25/17 morphine SR tablet [Ms Contin] 15 mg PO DAILY 08/25/17 Amlodipine [Norvasc] 5 mg PO DAILY 08/30/17 Aspirin E.C. [Ecotrin] 81 mg PO DAILY@0800 08/30/17 Clopidogrel Bisulfate [Plavix] 75 mg PO DAILY 30 Days #60 tab 09/08/17 Gabapentin [Neurontin] 300 mg PO BIDCM 30 Days #60 cap 09/08/17 Insulin Glargine [Lantus SoloStar Pen] 40 units SC DAILY #1 pen 09/08/17 Insulin Glargine [Lantus SoloStar Pen] 52 units SC QHS #1 pen 09/08/17 Insulin Lispro [Humalog KwikPen] 24 unit SC 1600 #1 insuln.pen 09/08/17 Insulin Lispro [Humalog KwikPen] 28 unit SC 0700 #1 insuln.pen 09/08/17 Insulin Lispro [Humalog KwikPen] 30 unit SC 1100 #1 insuln.pen 09/08/17 Insulin Lispro [Humalog KwikPen] See Protocol SC TIDAC #1 insuln.pen 09/08/17 Following Prescrptions Were Given to Patient: Clopidogrel Bisulfate [Plavix] 75 mg PO DAILY 30 Days #60 tab Insulin Glargine [Lantus SoloStar Pen] 40 units SC DAILY #1 pen Insulin Glargine [Lantus SoloStar Pen] 52 units SC QHS #1 pen Insulin Lispro [Humalog KwikPen] 24 unit SC 1600 #1 insuln.pen Insulin Lispro [Humalog KwikPen] 30 unit SC 1100 #1 insuln.pen Insulin Lispro [Humalog KwikPen] 28 unit SC 0700 #1 insuln.pen Insulin Lispro [Humalog KwikPen] See Protocol SC TIDAC #1 insuln.pen Gabapentin [Neurontin] 300 mg PO BIDCM 30 Days #60 cap Primary Care Physician: Fernando Kong MD [Primary Care Provider] - Please Follow Up With: DURAN Lebron Please Follow Up With: Dr Fernando Kyle Please Follow Up With: Rupa Joseph NP-C When: 11/03/17 @ 1PM Disposition: Home Minutes spent on discharge:: 35 Patient Condition:: Good Rehab Course The patient is a 81 year old CF with PMH HTN, HLD, DM, H/O TIA, CAD s/p CABG, [place], H/O renal cancer, CKD, H/O Pain pump implantation admitted to [facility] IP with debility s/p aphasia and uncontrolled DM, for > 3 hrs therapy daily, with the goal of returning home at or near her prior level of functional independence. Patient was admitted with expressive aphasia on 08/25/[address] [facility], was not a tpa candidate since was out of window at that time per documentation, MRI brain could not be obtained due to pain pump (the details of which are not available at present), but per patient the pain pump was placed about [address] Vergara ( and per patient description could be a spinal stimulator), 3 CT head done after inpatient admission did not show any acute stroke, CTA head/neck done on admission showed greater than 70% stenosis of the left ICA but carotid ultrasound showed <50% stenosis, vascular surgery consult with Dr. Wooten is pending at present, patient's hospital course was complicated by uncontrolled blood sugars in the range of 500, and was treated with insulin drip, and the blood sugar at the time of transferring to rehab was more than 350, which was deemed reasonable by Dr. Dewitt (hospitalist), given she has been having this high blood sugar in the recent past few months and per patient it was in the high range for the past 2 months since the pain pump/spinal stimulator implantation. Prior to that per patient her Blood sugars were not this high and was around 100-150s, per patient she sees an dermatology physician as outpatient. She lives with her , denies using cane or walker to ambulate, denies any frequent falls, does drive and has 1 step getting into the house and house is on one level. At present denies any aphasia, [place], visual disturbances, sensory loss, focal motor weakness, chest pain, fever, or dyspnea. With Physical therapy,she is stand by for getting in and out of the bed. She is able to walk greater than 100 feet with out a device, at standby assist, she has stumbled a little but no loss of balance. She has been out walking in the community at stand by assist. She performed a cogitative TUG at 13.4 seconds. With Occupational therapy, she is able to do all her own personal care at stand by assist.With Speech therapy, she still has some expressive aphasia has improved some since her admission, she continues to have issues with her higher level cogitative function such as attention, sequencing, planning and problem solving. Will continue to work on these issues while she is here. With Nursing her Blood sugars are improving with the latest adjustments, she has an appointment with Dr. Vergara on Friday at 2:15. The patient has refused outpatient Speech therapy. Appointments have been made for her with Medical/Surgery Registered Nurse Slim Lebron, [facility], Vascular Surgeon, and her PCP following discharge from the Rehab unit. Meaningful Use Info Meaningful Use Diagnoses (Choose all that apply): None applicable
[2017-09-08 21:40] LABS: Bedside Glucose 211 mg/dL (70-110)
[2017-09-09 05:21] VITALS: PULSE 70
[2017-09-09] MEDS: hydrALAZINE 50 MG Tablet PO ×2 (05:21→13:34)
[2017-09-09] MEDS: Levothyroxine 88 MCG Tablet PO (05:21)
[2017-09-09] MEDS: Enoxaparin 30 MG/0.3 ML Syringe SC (05:22)
[2017-09-09 07:20] LABS: Bedside Glucose 190 mg/dL (70-110)
[2017-09-09] MEDS: Insulin Lispro 100 UNIT/ML INSULN.PEN 28 UNIT SC ×2 (07:49→12:44)
[2017-09-09] MEDS: Insulin Lispro 100 UNIT/ML INSULN.PEN SC (07:50)
[2017-09-09] MEDS: Aspirin E.C. 81 MG Tablet PO (07:50)
[2017-09-09] MEDS: Gabapentin 300 MG Capsule PO (07:50)
[2017-09-09] MEDS: Pantoprazole Sodium 40 MG Tablet PO (07:51)
[2017-09-09] MEDS: Loratadine 10 MG Tablet PO (07:51)
[2017-09-09 07:55] VITALS: BP 158/67; PULSE 68
[2017-09-09] MEDS: Isosorbide Mononitrate 30 MG Tablet PO (07:55)
[2017-09-09] MEDS: amLODIPine 5 MG Tablet PO (07:55)
[2017-09-09] MEDS: Metoprolol Tartrate 25 MG Tablet PO (07:55)
[2017-09-09] MEDS: Tolterodine Tartrate 2 MG CAP.SA PO (07:56)
[2017-09-09] MEDS: Clopidogrel Bisulfate 75 MG Tablet PO (07:56)
[2017-09-09] MEDS: Lisinopril 20 MG Tablet PO (07:59)
[2017-09-09 08:08] VITALS: BP 152/67; PULSE 68; RESP 18; TEMP 36.4; O2SAT 95
[2017-09-09 10:25] VITALS: BP 152/67; PULSE 68; RESP 18; TEMP 36.4; O2SAT 95
[2017-09-09] MEDS: morphine SR 15 MG Tablet PO (11:08)
[2017-09-09 12:25] LABS: Bedside Glucose 127 mg/dL (70-110)
[2017-09-09] MEDS: Insulin Lispro 100 UNIT/ML INSULN.PEN 30 UNIT SC (12:47)
[2017-09-09 13:34] VITALS: BP 152/67; PULSE 68
--- NOTE | 2017-09-09 14:22 | CASEMGMT ---
Insurance Notified insurance of patient discharge on 09/09/17 to home with spouse. Auth#[id number] Nadia ARREDONDO, FUNERAL DRIVER
--- NOTE | 2017-09-09 15:05 | NURSING ---
Went over DC instruction, insulin admin, medications, and appts. pt and spouse verbalized understanding, pt dc with all personal belongings. In stable condition.
== END 2017-09-09 14:00 | disposition home or self-care (01) | DRG 57 ==
PROVIDERS: Nurse Practitioner Acute Care; Admitting Provider Psychiatry & Neurology Neurology; Family Provider Family Medicine; PCP Family Medicine; Visit Provider Psychiatry & Neurology Neurology
DX: I69.820 Aphasia following other cerebrovascular disease (principal); I25.10 Atherosclerotic heart disease of native coronary artery without angina pectoris; E11.22 Type 2 diabetes mellitus with diabetic chronic kidney disease; I12.9 Hypertensive chronic kidney disease with stage 1 through stage 4 chronic kidney disease, or unspecified chronic kidney disease; N18.3 Chronic kidney disease, stage 3 (moderate); E78.5 Hyperlipidemia, unspecified; E11.65 Type 2 diabetes mellitus with hyperglycemia; G47.33 Obstructive sleep apnea (adult) (pediatric); M79.7 Fibromyalgia; K21.9 Gastro-esophageal reflux disease without esophagitis; E03.9 Hypothyroidism, unspecified; Z85.528 Personal history of other malignant neoplasm of kidney; M96.1 Postlaminectomy syndrome, not elsewhere classified; Y83.8 Other surgical procedures as the cause of abnormal reaction of the patient, or of later complication, without mention of misadventure at the time of the procedure; Z95.1 Presence of aortocoronary bypass graft; Z96.89 Presence of other specified functional implants
CPT/HCPCS: 36415; 80053; 81001; 82947; 82962; 85025; 87086; 87088; 92507; 92523; 97110; 97116; 97161; 97165; 97530; 97535; 97803

== ENCOUNTER → 2017-10-24 09:33 | Outpatient (CLI) | payer MEDICARE, SELFPAY ==
[2017-10-24 10:42] LABS: Anion Gap 9 (5-15); BUN 29 mg/dL (7-18); BUN/Creat Ratio 19.5 RATIO (10-20); Calcium,Total 9.1 mg/dL (8.5-10.1); Chloride 110 mmol/L (98-107); Cholesterol 112 mg/dL (200); Creatinine, Serum 1.49 mg/dL (0.55-1.02); EST Glomerular Filtration Rate 36 mL/min (>60); Est Glom Filt Rate - Afr Amer 43 mL/min (>60); Glucose 132 mg/dL (74-106); High Density Lipoprotein 43 mg/dL; Potassium 5.3 mmol/L (3.5-5.1); Sodium Level 141 mmol/L (136-145); Triglycerides 135 mg/dL; Very Low Density Lipoprotein 27 mg/dL (5-40)
== END ==
PROVIDERS: Family Provider Family Medicine; PCP Family Medicine; Visit Provider Surgery
DX: G45.9 Transient cerebral ischemic attack, unspecified (principal); N18.3 Chronic kidney disease, stage 3 (moderate)
CPT/HCPCS: 36415; 80048; 80061

== ENCOUNTER → 2017-10-25 09:25 | Outpatient (CLI) | payer MEDICARE, SELFPAY | PROVIDERS: Family Provider Family Medicine; PCP Family Medicine; Visit Provider Surgery | DX: E87.5 Hyperkalemia (principal) | CPT/HCPCS: 36415; 84132 ==

== ENCOUNTER → 2017-12-29 08:33 | Outpatient (CLI) | payer MEDICARE, SELFPAY ==
[2017-10-22 15:09] VITALS: BMI 28.3
[2017-12-29 10:29] LABS: Microalbumin:Creatinine Ratio 24.2 mg/g CRE (<30 mg/g CRE)
[2017-12-29 10:58] LABS: PTHIN 52.8 pg/mL (18.4-80.1); Vitamin D,25 Hydroxy 36.6 ng/mL (29.95-100.01)
[2017-12-29 11:19] LABS: AST(SGOT) 11 U/L (15-37); Alanine Aminotransfer ALT/SGPT 18 U/L (13-56); Albumin, Serum 3.8 g/dL (3.2-5.0); Alkaline Phosphatase 74 U/L (45-117); Anion Gap 15 (5-15); BUN 24 mg/dL (7-18); BUN/Creat Ratio 16.8 RATIO (10-20); Calcium,Total 8.7 mg/dL (8.5-10.1); Chloride 105 mmol/L (98-107); Cholesterol 117 mg/dL (200); Creatinine, Serum 1.43 mg/dL (0.55-1.02); EST Glomerular Filtration Rate 38 mL/min (>60); Est Glom Filt Rate - Afr Amer 45 mL/min (>60); Globulin 3.9 g/dL (2.2-4.2); Glucose 135 mg/dL (74-106); High Density Lipoprotein 42 mg/dL; Protein, Total 7.7 g/dL (6.4-8.2); Sodium Level 140 mmol/L (136-145); Thyroid Stim Hormone (TSH) 4.36 uIU/mL (0.358-3.74); Triglycerides 218 mg/dL; Very Low Density Lipoprotein 44 mg/dL (5-40)
== END ==
PROVIDERS: Family Provider Family Medicine; PCP Family Medicine; Referring Provider Internal Medicine Endocrinology, Diabetes & Metabolism; Visit Provider Internal Medicine Endocrinology, Diabetes & Metabolism
DX: E11.65 Type 2 diabetes mellitus with hyperglycemia (principal); E03.8 Other specified hypothyroidism; E21.5 Disorder of parathyroid gland, unspecified; E55.9 Vitamin D deficiency, unspecified; E78.2 Mixed hyperlipidemia
CPT/HCPCS: 36415; 80053; 80061; 82043; 82306; 82570; 83036; 83970; 84443

== ENCOUNTER 2018-02-14 23:28 | Emergency (ER) | payer MEDICARE, SELFPAY ==
[2018-01-29 15:32] VITALS: BMI 28.3
[2018-02-14 23:29] VITALS: BP 193/103; PULSE 68; RESP 15; TEMP 36.5; O2SAT 92; BMI 27.4
[2018-02-14 23:58] VITALS: BP 156/72; PULSE 69; RESP 26; O2SAT 94
[2018-02-14 23:59] VITALS: BP 167/82; PULSE 67; RESP 15; O2SAT 92
--- NOTE | 2018-02-15 00:26 | ED.VIS.GEN ---
History of Present Illness Chief Complaint: Hypertension Informant: Patient Onset: Today Context: Gradual Onset Timing: Continuous Current Severity: gone Maximum Severity: Moderate Worsened by: nothing Relieved by: taking an extra lisinopril PR MANAGER Associated Symptoms: headache, lightheadedness Narrative: [place] a headache and lightheadedness, which her symptoms she commonly feels when her blood pressure spikes, she checked her blood pressure and it was over 200. She then continue to check it every 15 minutes for an hour or so, as the pressure continued to climb. She had no other symptoms. She took an extra lisinopril, which is what she was instructed to do by her grating machine operator, and came to the ER. She was recently seen by her doctor with regards to her blood pressures being higher, and was started on metoprolol that she has only been on for 2 or 3 days. - Past Medical History (1) CAD (coronary artery disease) Status: Chronic Comment: CABG X 3, SOTO to LAD, SVG to 1st diagonal & SVG to obtuse marginal @ [facility] 04/08/16 (2) Chronic renal failure, stage 3 (moderate) Status: Chronic (3) Diabetes mellitus, type 2 Status: Chronic (4) Fibromyalgia Status: Chronic (5) GERD Status: Chronic (6) History of stroke Status: Chronic (7) Hyperlipidemia Status: Chronic (8) Hypertension Status: Chronic (9) Hypothyroidism Status: Chronic (10) Lumbosacral radiculopathy Status: Chronic (11) Obstructive sleep apnea Status: Chronic (12) TIA (transient ischemic attack) Status: Chronic Past Medical History - Allergies and Home Meds Allergies/Adverse Reactions: Allergies latex Allergy (Verified 02/14/18 23:34) Rash adhesive tape Adverse Reaction (Verified 02/14/18 23:34) Rash Primary Care Physician: Fernando Kong MD [Primary Care Provider] - Surgical History: appendectomy, cholecystectomy, coronary bypass surgery, herniorrhaphy, hysterectomy, total knee arthroplasty, tonsillectomy, - - cryotherapy for kidney tumor Lives: Spouse/ Significant Other Smoking Status: Never smoker - Family History Maternal Family History: Family History (Last Reviewed 01/29/18 @ 15:41 by Samantha Trammell) Father Heart disease Mother Breast cancer Diabetes Heart disease Family History: Reports: Diabetes, Heart Disease - age 95 Paternal Family History: Family History (Last Reviewed 01/29/18 @ 15:41 by Samantha Trammell) Father Heart disease Mother Breast cancer Diabetes Heart disease Family History: Reports: Heart Disease - age 69 Review of Systems All systems negative except as indicated General: Reports: - - lightheadedness. Denies: Chills, Fever, Sweats Eyes: Reports: Blurred Vision - bilaterally - gone, Diplopia ENT: Denies: Bilateral ear pain, Rhinorrhea, Sore throat Cardiovascular: Denies: Chest pain, Palpitations Respiratory: Denies: Dyspnea, Cough, Dyspnea on exertion Gastrointestinal: Denies: Abdominal pain, Nausea, Vomiting, Diarrhea, Melena, Hematochezia Genitourinary: Denies: Dysuria, Hematuria, Frequency Musculoskeletal: Denies: Neck pain, Back pain, Extremity Pain Skin: Denies: Rash, Wounds Neurological: Reports: Headache. Denies: Weakness, Numbness Endocrine: Denies: Polyuria, Polydipsia Hematologic: Denies: Easy bruising, Easy bleeding Allergy: Denies: Swelling of the mouth, Swelling of the tongue Physical Exam Vital Signs/Narrative: Vital Signs Temp Pulse Resp BP Pulse Ox 02/14/18 23:59 67 15 167/82 H 92 02/14/18 23:58 69 26 H 156/72 H 94 02/14/18 23:29 97.7 F L 68 15 193/103 H 92 Inital Vital Signs reviewed: Yes General: Well nourished, Well developed, - - well-appearing, nad Head: Normocephalic, Atraumatic Eyes: Perrl, EOMI, - - no photophobia ENT: Moist mucous membranes, No rhinorrhea Neck: Supple, Nontender Cardiovascular: Regular rate, Regular rhythm, No murmurs Respiratory: No distress, CTA bilaterally, Chest nontender Abdomen: Soft, Nontender, Nondistended, Normal bowel sounds Back: Nontender, Normal Inspection Skin: Normal color, No rash Neurological: Alert, Oriented x3, Cranial nerves II-XII grossly intact, Normal Strength, Normal Sensation, Normal Gait, - - hyporeflexic BLE, no clonus. Psychological: Normal affect Diagnostic/Tx/Re-eval - Medical Decision Making Initial blood pressure was very high in the 190s. However with observation prior to any treat, the patient's symptoms resolved, and at the time of my evaluation she is asymptomatic with a blood pressure of 157 systolic. She states she usually is in the 150s-160s. She has chronic renal insufficiency, her labs were last checked 1.5 months ago, and her CBC was normal. I think she is stable to be discharged home. At this time I recommend continuing the plan that her grating machine operator laid in place, with taking extra lisinopril as needed if her blood pressure goes very high and she gets symptoms, which worked tonight. Advised to follow-up with her grating machine operator. She is comfortable with this plan. Encouraged to return for any new acute symptoms especially neurologic ones which we discussed. ED Disposition - Plan for ED Patient: Disposition: Home or Assisted Living Chief Complaint: Hypertension Diagnosis: Episode of hypertension Instructions: ED HTN Established Referrals: Fernando Kong MD [Primary Care Provider] - (Or your grating machine operator, within the next week for recheck.)
--- NOTE | 2018-02-15 00:30 | ED.DCSUM_ITS ---
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 She then continue to check it every 15 minutes for an hour or so, as the pressure continued to climb. She had no other symptoms. She took an extra lisinopril, which is what she was instructed to do by her correctional probation officer, and came to the ER. She was recently seen by her doctor with regards to her blood pressures being higher, and was started on metoprolol that she has only been on for 2 or 3 days. - Past Medical History (1) CAD (coronary artery disease) Status: Chronic Comment: CABG X 3, SOTO to LAD, SVG to 1st diagonal & SVG to obtuse marginal @ [facility] 04/08/16 (2) Chronic renal failure, stage 3 (moderate) Status: Chronic (3) Diabetes mellitus, type 2 Status: Chronic (4) Fibromyalgia Status: Chronic (5) GERD Status: Chronic (6) History of stroke Status: Chronic (7) Hyperlipidemia Status: Chronic (8) Hypertension Status: Chronic (9) Hypothyroidism Status: Chronic (10) Lumbosacral radiculopathy Status: Chronic (11) Obstructive sleep apnea Status: Chronic (12) TIA (transient ischemic attack) Status: Chronic Past Medical History - Allergies and Home Meds Allergies/Adverse Reactions: Allergies latex Allergy (Verified 02/14/18 23:34) Rash adhesive tape Adverse Reaction (Verified 02/14/18 23:34) Rash Primary Care Physician: Fernando Kong MD [Primary Care Provider] - Surgical History: appendectomy, cholecystectomy, coronary bypass surgery, herniorrhaphy, hysterectomy, total knee arthroplasty, tonsillectomy, - - cryotherapy for kidney tumor Lives: Spouse/ Significant Other Smoking Status: Never smoker - Family History Maternal Family History: Family History (Last Reviewed 01/29/18 @ 15:41 by Samantha Trammell) Father Heart disease Mother Breast cancer Diabetes Heart disease Family History: Reports: Diabetes, Heart Disease - age 95 Paternal Family History: Family History (Last Reviewed 01/29/18 @ 15:41 by Samantha Trammell) Father Heart disease Mother Breast cancer Diabetes Heart disease Family History: Reports: Heart Disease - age 69 Review of Systems All systems negative except as indicated General: Reports: - - lightheadedness. Denies: Chills, Fever, Sweats Eyes: Reports: Blurred Vision - bilaterally - gone, Diplopia ENT: Denies: Bilateral ear pain, Rhinorrhea, Sore throat Cardiovascular: Denies: Chest pain, Palpitations Respiratory: Denies: Dyspnea, Cough, Dyspnea on exertion Gastrointestinal: Denies: Abdominal pain, Nausea, Vomiting, Diarrhea, Melena, Hematochezia Genitourinary: Denies: Dysuria, Hematuria, Frequency Musculoskeletal: Denies: Neck pain, Back pain, Extremity Pain Skin: Denies: Rash, Wounds Neurological: Reports: Headache. Denies: Weakness, Numbness Endocrine: Denies: Polyuria, Polydipsia Hematologic: Denies: Easy bruising, Easy bleeding Allergy: Denies: Swelling of the mouth, Swelling of the tongue Physical Exam Vital Signs/Narrative: Vital Signs Temp Pulse Resp BP Pulse Ox 02/14/18 23:59 67 15 167/82 H 92 02/14/18 23:58 69 26 H 156/72 H 94 02/14/18 23:29 97.7 F L 68 15 193/103 H 92 Inital Vital Signs reviewed: Yes General: Well nourished, Well developed, - - well-appearing, nad Head: Normocephalic, Atraumatic Eyes: Perrl, EOMI, - - no photophobia ENT: Moist mucous membranes, No rhinorrhea Neck: Supple, Nontender Cardiovascular: Regular rate, Regular rhythm, No murmurs Respiratory: No distress, CTA bilaterally, Chest nontender Abdomen: Soft, Nontender, Nondistended, Normal bowel sounds Back: Nontender, Normal Inspection Skin: Normal color, No rash Neurological: Alert, Oriented x3, Cranial nerves II-XII grossly intact, Normal Strength, Normal Sensation, Normal Gait, - - hyporeflexic BLE, no clonus. Psychological: Normal affect Diagnostic/Tx/Re-eval - Medical Decision Making Initial blood pressure was very high in the 190s. However with observation prior to any treat, the patient's symptoms resolved, and at the time of my evaluation she is asymptomatic with a blood pressure of 157 systolic. She states she usually is in the 150s-160s. She has chronic renal insufficiency, her labs were last checked 1.5 months ago, and her CBC was normal. I think she is stable to be discharged home. At this time I recommend continuing the plan that her correctional probation officer laid in place, with taking extra lisinopril as needed if her blood pressure goes very high and she gets symptoms, which worked tonight. Advised to follow-up with her correctional probation officer. She is comfortable with this plan. Encouraged to return for any new acute symptoms especially neurologic ones which we discussed. ED Disposition - Plan for ED Patient: Disposition: Home or Assisted Living Chief Complaint: Hypertension Diagnosis: Episode of hypertension Instructions: ED HTN Established Referrals: Fernando Kong MD [Primary Care Provider] - (Or your correctional probation officer, within the next week for recheck.)
[2018-02-15 00:45] VITALS: BP 165/73; PULSE 66; RESP 20; O2SAT 92
== END 2018-02-15 00:54 | disposition home or self-care (01) ==
LOC: ED 02-15 00:32
PROVIDERS: Emergency Provider Emergency Medicine; Family Provider Family Medicine; PCP Family Medicine
DX: I12.9 Hypertensive chronic kidney disease with stage 1 through stage 4 chronic kidney disease, or unspecified chronic kidney disease (principal); N18.3 Chronic kidney disease, stage 3 (moderate); I25.10 Atherosclerotic heart disease of native coronary artery without angina pectoris; Z95.1 Presence of aortocoronary bypass graft; E11.9 Type 2 diabetes mellitus without complications; K21.9 Gastro-esophageal reflux disease without esophagitis; E78.5 Hyperlipidemia, unspecified; M79.7 Fibromyalgia; Z86.73 Personal history of transient ischemic attack (TIA), and cerebral infarction without residual deficits; E03.9 Hypothyroidism, unspecified; G47.33 Obstructive sleep apnea (adult) (pediatric); M54.17 Radiculopathy, lumbosacral region
CPT/HCPCS: 99282

== ENCOUNTER → 2018-04-06 10:06 | Outpatient (CLI) | payer MEDICARE, SELFPAY ==
[2018-02-23 09:27] VITALS: BMI 27.4
[2018-04-06 11:22] LABS: ALB/GLOB Ratio 0.9 RATIO (0.9-2.4); AST(SGOT) 16 U/L (15-37); Alanine Aminotransfer ALT/SGPT 19 U/L (13-56); Albumin, Serum 3.7 g/dL (3.2-5.0); Alkaline Phosphatase 75 U/L (45-117); Anion Gap 9 (5-15); BUN 23 mg/dL (7-18); BUN/Creat Ratio 14.6 RATIO (10-20); Calcium,Total 8.6 mg/dL (8.5-10.1); Chloride 110 mmol/L (98-107); Creatinine, Serum 1.57 mg/dL (0.55-1.02); EST Glomerular Filtration Rate 34 mL/min (>60); Est Glom Filt Rate - Afr Amer 41 mL/min (>60); Globulin 3.9 g/dL (2.2-4.2); Glucose 185 mg/dL (74-106); Potassium 5.1 mmol/L (3.5-5.1); Protein, Total 7.6 g/dL (6.4-8.2); Sodium Level 138 mmol/L (136-145); Thyroid Stim Hormone (TSH) 0.65 uIU/mL (0.358-3.74)
== END ==
PROVIDERS: Family Provider Family Medicine; PCP Family Medicine; Referring Provider Internal Medicine Endocrinology, Diabetes & Metabolism; Visit Provider Internal Medicine Endocrinology, Diabetes & Metabolism
DX: E11.65 Type 2 diabetes mellitus with hyperglycemia (principal); E03.8 Other specified hypothyroidism
CPT/HCPCS: 36415; 80053; 83036; 84443

== ENCOUNTER 2018-04-27 21:32 | Observation (INO) | payer MEDICARE, SELFPAY ==
[2018-02-23 09:27] VITALS: BMI 27.4
[2018-04-27 21:32] VITALS: BP 149/71; PULSE 66; RESP 22; TEMP 36.2; O2SAT 93; BMI 28.3
[2018-04-27 21:46] LABS: Bedside Glucose 54 mg/dL (70-110)
--- NOTE | 2018-04-27 21:47 | ED.RN ---
PT GIVEN OJ AND CRACKERS AFTER BLOOD GLUCOSE WAS CHECKED 54. WILL CONTINUE TO MONITOR.
[2018-04-27 22:25] LABS: Bedside Glucose 73 mg/dL (70-110)
--- NOTE | 2018-04-27 22:41 | EKG12_ITS ---
Test Reason : REPEAT Blood Pressure : / mmHG Vent. Rate : 053 BPM Atrial Rate : 053 BPM P-R Int : 208 ms QRS Dur : 088 ms QT Int : 442 ms P-R-T Axes : 016 040 045 degrees QTc Int : 414 ms Sinus bradycardia with sinus arrhythmia with occasional Premature ventricular complexes Low voltage QRS Borderline ECG Confirmed by LAURA BENITEZ, CARRIE ([id number]), news assignment editor KATHI TSE ([id number]) on 05/04/2018 11:05:05 AM Referred By: JUSTINA Confirmed By:CARRIE SANCEHZ MD
--- NOTE | 2018-04-27 22:45 | ED.DCSUM_ITS ---
- ER Visit Summary Date of Service: 04/27/18 Chief Complaint: Low blood sugar and vomiting History of Present Illness: The patient is a 82 F with history of insulin- dependent diabetes who presents for evaluation of low blood sugar and associated nausea and vomiting. Patient states she normally is on Humalog, a sliding scale insulin, and Lantus. She is not on any oral diabetes medications. Tonight after eating dinner she began feeling like her blood sugar was dropping. When she checked it it was in the 40s. She became nauseated and started vomiting. She also developed a headache. She ate peanut butter toast and upon recheck it still remained low. Patient denies any recent illness, any change in her insulin regimen, any change in her diet. Patient did not take insulin with dinner tonight. Patient denies any fever, chest pain, shortness of breath, diarrhea, urinary symptoms or other complaints other than the nausea and multiple episodes of vomiting. Physical Examination: Vital signs: afebrile, hemodynamically stable, no hypoxia on room air General: well nourished, well developed, in no distress Skin: warm, dry, no rash, no pallor HEENT: normocephalic and atraumatic; PERRL, EOMI, moist mucous membranes Cardiovascular: regular rate and rhythm without murmurs, no peripheral edema, 2+ pulses all distal extremities Respiratory: No increased work of breathing, lungs are clear to auscultation bilaterally, no rales, rhonchi or wheezing Abdominal: Abdomen is soft, nontender with normoactive bowel sounds, no guarding or rebound, no masses MSK: Moves all extremities, no deformities, normal strength Neuro: Awake and alert, oriented ?4. No facial droop, sensation and motor function intact and symmetric Test Results: Abnormal Lab Results 04/27/18 04/27/18 04/27/18 21:40 22:18 23:15 WBC RBC Hgb Hct MCV MCH MCHC RDW RDW Differential Plt Count MPV Immature Gran % (Auto) Neut % (Auto) Lymph % (Auto) [place] % (Auto) Eos % (Auto) Baso % (Auto) Absolute Neuts (auto) Absolute Lymphs (auto) Total Counted Sodium Potassium Chloride Carbon Dioxide Anion Gap BUN Creatinine Estim Creat Clear Calc Est GFR (MDRD) Af Amer Est GFR (MDRD) Non-Af BUN/Creatinine Ratio Glucose Calcium Total Bilirubin AST ALT Alkaline Phosphatase Troponin I Total Protein Albumin Globulin Albumin/Globulin Ratio Urine Color Urine Clarity Urine pH Ur Specific [place] Urine Protein Urine Glucose (UA) Urine Ketones Urine Occult Blood Urine Nitrite Urine Bilirubin Urine Urobilinogen Ur Leukocyte Esterase Urine RBC Urine WBC Ur Squamous Epith Cells Urine Bacteria Urine Mucus POC Glucose 54 L 73 93 04/27/18 04/27/18 04/27/18 23:24 23:24 23:28 WBC 16.7 H RBC 4.43 Hgb 13.6 Hct 42.2 MCV 95.3 MCH 30.7 MCHC 32.2 RDW 14.0 RDW Differential 49.0 H Plt Count 221 MPV 11.2 Immature Gran % (Auto) 0.200 Neut % (Auto) 85.0 H Lymph % (Auto) 11.4 L [place] % (Auto) 3.0 Eos % (Auto) 0.2 Baso % (Auto) 0.2 Absolute Neuts (auto) 14.2 H Absolute Lymphs (auto) 1.90 Total Counted Not Reportable Sodium 134 L Potassium 5.5 H Chloride 107 Carbon Dioxide 22.0 Anion Gap 5 BUN 34 H Creatinine 1.93 H Estim Creat Clear Calc 19.23 Est GFR (MDRD) Af Amer 32 L Est GFR (MDRD) Non-Af 27 L BUN/Creatinine Ratio 17.6 Glucose 104 Calcium 9.1 Total Bilirubin 0.30 AST 13 L ALT 17 Alkaline Phosphatase 99 Troponin I < 0.015 Total Protein 8.9 H Albumin 4.6 Globulin 4.3 H Albumin/Globulin Ratio 1.1 Urine Color Yellow Urine Clarity Clear Urine pH 5.0 Ur Specific [place] 1.025 Urine Protein 30 H Urine Glucose (UA) Normal Urine Ketones 5 H Urine Occult Blood Negative Urine Nitrite Negative Urine Bilirubin Negative Urine Urobilinogen Normal Ur Leukocyte Esterase 25 H Urine RBC 0 SEEN Urine WBC 0-5 SEEN Ur Squamous Epith Cells 0-5 SEEN Urine Bacteria RARE Urine Mucus RARE POC Glucose 04/28/18 04/28/18 00:29 00:54 WBC RBC Hgb Hct MCV MCH MCHC RDW RDW Differential Plt Count MPV Immature Gran % (Auto) Neut % (Auto) Lymph % (Auto) [place] % (Auto) Eos % (Auto) Baso % (Auto) Absolute Neuts (auto) Absolute Lymphs (auto) Total Counted Sodium Potassium Cancelled 6.4 H* Chloride Carbon Dioxide Anion Gap BUN Creatinine Estim Creat Clear Calc Est GFR (MDRD) Af Amer Est GFR (MDRD) Non-Af BUN/Creatinine Ratio Glucose Calcium Total Bilirubin AST ALT Alkaline Phosphatase Troponin I Total Protein Albumin Globulin Albumin/Globulin Ratio Urine Color Urine Clarity Urine pH Ur Specific [place] Urine Protein Urine Glucose (UA) Urine Ketones Urine Occult Blood Urine Nitrite Urine Bilirubin Urine Urobilinogen Ur Leukocyte Esterase Urine RBC Urine WBC Ur Squamous Epith Cells Urine Bacteria Urine Mucus POC Glucose Medications Given Discontinued Medications Calcium Gluconate () 1 gm IV X1 ONE Stop: 04/28/18 01:10 Dextrose (D50w Syringe) 25 gm IV X1 ONE Stop: 04/28/18 01:10 Sodium Chloride () 1,000 mls @ 500 mls/hr IV .Q2H ONE Stop: 04/28/18 00:40 Last Admin: 04/27/18 23:23 Dose: 500 mls/hr Sodium Chloride () 500 mls @ 999 mls/hr IV .Q31M JUAN ALBERTO Stop: 04/28/18 00:45 Insulin Human Lispro 5 unit/ N (/A) 0.05 mls @ 3 mls/hr IV X1 ONE Stop: 04/28/18 01:10 Ondansetron HCl (Zofran) 4 mg IV X1 ONE Stop: 04/27/18 22:42 Last Admin: 04/27/18 23:23 Dose: 4 mg Emergency Department Course and Treatment: Patient is well-appearing at this time but remains nauseated. Her blood sugar upon presentation was 53, and she was given oral juice and a snack, with improvement to 73. Because patient's blood sugar has dropped after multiple ingestions of food and no insulin, workup will be performed to look for any underlying reason for her hypoglycemia. Patient had a leukocytosis of 16.7 with no evidence of an underlying infection. This may be secondary to the vomiting and demarginalization. Urine was negative for infection. Trace ketones present. Patient's blood sugar on the BMP was 104. Patient's labs were consistent with chronic renal disease. Patient did have hyperkalemia of 5.5. EKG showed no significant changes from her baseline. Patient received IV fluids. A repeat potassium was performed and now is more significantly elevated at 6.6. Patient was given calcium gluconate, insulin and D50. Repeat EKG showed a first-degree AV block but no QRS widening or peaked T waves. Patient was discussed with the hospitalist for admission for further management and monitoring of hyperkalemia. Hypoglycemia at this time has resolved. Patient has no nausea and no complaints at this time. Treatment Plan: [] Disposition: [] Impression: Hyperkalemia, hypoglycemia This note was generated with [employer] dictation software. It may contain incorrect words, spelling, and punctuation that were not noted in review of the chart prior to signing ED Disposition - Plan for ED Patient: Referrals: Fernando Kong MD [Primary Care Provider] -
[2018-04-27] MEDS: Ondansetron 4 MG/2 ML Vial IV (23:23)
[2018-04-27] MEDS: 0.9% Normal Saline 1,000 ML 500 ML IV (23:23)
[2018-04-27 23:31] LABS: Bedside Glucose 93 mg/dL (70-110)
[2018-04-27 23:32] LABS: Red Blood Cells-Urine 0 SEEN /hpf (0-5)
[2018-04-27 23:34] LABS: Absolute Neutrophil Count 14.2 X10^3/uL (2.0-7.7); Basophil# 0.04 X10^3/uL; Basophil% 0.2 % (0-1); Eosinophil# 0.03 X10^3/uL; Eosinophils% 0.2 % (0-5); Hematocrit 42.2 % (37-47); Hemoglobin 13.6 g/dl (12.0-15.0); Lymphocyte % 11.4 % (19-41); Mean Corp Hgb Conc 32.2 g/gl (32-36); Mean Corpuscular Hgb 30.7 pg (27.0-32.0); Mean Corpuscular Volume 95.3 fL (81-99); Mean Platelet Vol. 11.2 fl (6.2-12.0); Monocyte# 0.51 X10^3/uL; Neutrophil # 14.22 X10^3/uL (2.7-7.7); Platelet Count 221 K/mm3 (150-450); Red Blood Count 4.43 M/mm3 (4.2-5.4); White Blood Count 16.7 K/mm3 (4.4-11.0)
[2018-04-27 23:35] LABS: Color, Urine Yellow (Yellow); Glucose, Dipstick Normal (Normal); Ketone-Dipstick 5 mg/dl (Negative); Leukocyte Esterase-Dipstick 25 /ul (Negative); Nitrite-Dipstick Negative (Negative); Occult Blood-Urine Negative /ul (Negative); Protein-Dipstick 30 mg/dl (Negative); Specific Gravity, Urine 1.025 (1.002-1.030); Urine Bilirubin Dipstick Negative (Negative); Urine Clarity Clear (Clear); Urine Urobilinogen Normal (Normal)
[2018-04-27 23:42] LABS: POSITIVE COUNT NO; POSITIVE DIFFERENTIAL NO; POSITIVE MORPHOLOGY NO
[2018-04-27 23:45] LABS: Bacteria RARE /hpf (None Seen); Mucous, Urine RARE /hpf (<or=2+); Squamous Epithelial Cells - UA 0-5 SEEN /hpf (5-10); White Blood Cells 0-5 SEEN /hpf (0-5)
[2018-04-27 23:53] LABS: ALB/GLOB Ratio 1.1 RATIO (0.9-2.4); AST(SGOT) 13 U/L (15-37); Alanine Aminotransfer ALT/SGPT 17 U/L (13-56); Albumin, Serum 4.6 g/dL (3.2-5.0); Alkaline Phosphatase 99 U/L (45-117); Anion Gap 5 (5-15); BUN 34 mg/dL (7-18); BUN/Creat Ratio 17.6 RATIO (10-20); Calcium,Total 9.1 mg/dL (8.5-10.1); Chloride 107 mmol/L (98-107); Creatinine, Serum 1.93 mg/dL (0.55-1.02); EST Glomerular Filtration Rate 27 mL/min (>60); Est Glom Filt Rate - Afr Amer 32 mL/min (>60); Estimated Creatinine Clearance 19.23 ml/min; Globulin 4.3 g/dL (2.2-4.2); Glucose 104 mg/dL (74-106); Potassium 5.5 mmol/L (3.5-5.1); Protein, Total 8.9 g/dL (6.4-8.2); Sodium Level 134 mmol/L (136-145)
[2018-04-28] VITALS (12 sets, daily range): BP systolic 124–158; BP diastolic 48–69; PULSE 54–75; RESP 16–18; TEMP 36.6–36.8; O2SAT 92–95; BMI 28.3; BMI 29.6
[2018-04-28 01:06] LABS: Potassium 6.4 mmol/L (3.5-5.1)
--- NOTE | 2018-04-28 01:07 | ED.RN ---
POTASSIUM OF 6.4 REPORTED TO .
--- NOTE | 2018-04-28 01:09 | EKG12_ITS ---
Test Reason : HYPOGLYCEMIA Blood Pressure : / mmHG Vent. Rate : 059 BPM Atrial Rate : 059 BPM P-R Int : 192 ms QRS Dur : 080 ms QT Int : 404 ms P-R-T Axes : 050 032 042 degrees QTc Int : 399 ms Sinus bradycardia with marked sinus arrhythmia Otherwise normal ECG Confirmed by LAURA BENITEZ, CARRIE ([id number]), editor trade journal KATHI TSE ([id number]) on 04/28/2018 2:23:18 PM Referred By: JUSTINA Confirmed By:CARRIE SANCHEZ MD
[2018-04-28] MEDS: Calcium Gluconate 1 GM/10 ML Vial IV (01:36)
--- NOTE | 2018-04-28 01:36 | HP.PCM_ITS ---
Problem List (1) Hypoglycemia Status: Acute (2) Hyperkalemia Status: Acute (3) Chronic renal failure, stage 3 (moderate) Status: Chronic (4) Hyperlipidemia Status: Chronic Qualifiers: (5) Obstructive sleep apnea Status: Chronic (6) S/P coronary artery bypass graft x 3 Status: Chronic Comment: CABG X 3, SOTO to LAD, SVG to 1st diagonal & SVG to obtuse marginal @ summa 04/08/16 (7) Diabetes mellitus, type 2 Status: Chronic Qualifiers: (8) Hypertension Status: Chronic Qualifiers: (9) History of stroke Status: Chronic (10) Fibromyalgia Status: Chronic (11) GERD Status: Chronic (12) Hypothyroidism Status: Chronic History of Present Illness Date of Admission: 04/28/18 Chief Complaint: hypoglycemia, nausea and vomiting The patient is a 82 year old female patient who presents to the ER with low blood sugar. She states she went to [facility] and had ribs and a sweet potato and soon thereafter became nauseated and started vomiting. Her blood sugar was in the 40s. She denies having taken any insulin around the time of her meal. She states she did take her Lantus in the morning. Her blood sugar upon arrival to ER was in the 50s. She received glucose replacement and antiemetic medications and improved. Her lab findings showed an elevated potassium which went from 5.5 to 6.6 (lab denies hemolysis). She was started on insulin and dextrose to lower the potassium and admission was requested to monitor this electrolyte imbalance and make sure her Blood sugar remains stable. She is feeling improved and denies any chest pain. Past Medical History Past Medical History (Chronic Problems): Chronic Problems (Last Reviewed 10/22/17 @ 15:09 by Jenny Galdamez) Chronic renal failure, stage 3 (moderate) (Chronic) Hyperlipidemia (Chronic) Other correction (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 (Chronic) TIA (transient ischemic attack) (Chronic) Angina pectoris (Chronic) Obstructive sleep apnea (Chronic) 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) CABG X 3, SOTO to LAD, SVG to 1st diagonal & SVG to obtuse marginal @ summa 04/08/16 Postlaminectomy syndrome of lumbar region (Chronic) Lumbosacral radiculopathy (Chronic) Diabetes mellitus, type 2 (Chronic) Hypertension (Chronic) History of stroke (Chronic) Fibromyalgia (Chronic) GERD (Chronic) Hypothyroidism (Chronic) Renal cancer (Chronic) CAD (coronary artery disease) (Chronic) CABG X 3, SOTO to LAD, SVG to 1st diagonal & SVG to obtuse marginal @ summa 04/08/16 Medical History: Medical History (Last Reviewed 10/22/17 @ 15:09 by Jenny Galdamez) Debility (Acute) R53.81 Chronic renal failure, stage 3 (moderate) (Chronic) N18.3 Hyperlipidemia (Chronic) E78.5 Other correction (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 (Chronic) Z79.899 TIA (transient ischemic attack) (Chronic) G45.9 Angina pectoris (Chronic) I20.9 Obstructive sleep apnea (Chronic) G47.33 Postlaminectomy syndrome of lumbar region (Chronic) Lumbosacral radiculopathy (Chronic) M54.17 Diabetes mellitus, type 2 (Chronic) E11.9 Hypertension (Chronic) I10 History of stroke (Chronic) Z86.73 Fibromyalgia (Chronic) GERD (Chronic) Hypothyroidism (Chronic) Renal cancer (Chronic) CAD (coronary artery disease) (Chronic) I25.10 CABG X 3, SOTO to LAD, SVG to 1st diagonal & SVG to obtuse marginal @ summa 04/08/16 Chest pain R07.9 Dyspnea on exertion R06.09 Edema R60.9 Fatigue R53.83 Shortness of breath R06.02 Allergies latex Allergy (Verified 02/23/18 09:27) Rash adhesive tape Adverse Reaction (Verified 02/23/18 09:27) Rash Home Medications: Ambulatory Orders Medication Instructions Recorded Lansoprazole [Prevacid] 30 mg PO DAILY 05/09/16 lisinopril 20 mg tablet 20 mg PO DAILY 90 Days #90 04/22/17 Levothyroxine [Synthroid] 88 mcg PO DAILY 04/25/17 atorvastatin 40 mg tablet 40 mg PO DAILY #90 tab 06/30/17 Metformin(XR) [Glucophage Xr] 1,000 mg PO BID 08/25/17 Oxybutynin Chloride [Ditropan Xl] 10 mg PO DAILY 08/25/17 Aspirin E.C. [Ecotrin] 81 mg PO DAILY@0800 08/30/17 Clopidogrel Bisulfate [Plavix] 75 mg PO DAILY 30 Days #60 tab 09/08/17 Gabapentin [Neurontin] 300 mg PO BIDCM 30 Days #60 cap 09/08/17 Insulin Lispro [Humalog KwikPen] See Protocol SC TIDAC #1 insuln.pen 09/08/17 insulin glargine (U-100) 100 60 unit SC QHS ml 01/29/18 unit/mL (3 mL) subcutaneous pen Metoprolol Tartrate [Lopressor 50 mg PO BID 02/15/18 (Beta Pancho)] amlodipine 10 mg tablet 10 mg PO DAILY 02/23/18 cholecalciferol (vitamin D3) 1,000 1,000 unit PO .COMPLEX tab 02/23/18 unit tablet diphenhydramine 25 2 tab PO QHS PRN 02/23/18 mg-acetaminophen 500 mg tablet duloxetine 20 mg capsule,delayed 20 mg PO DAILY cap 02/23/18 release hydralazine 50 mg tablet 50 mg PO TID 90 Days #270 tab 02/23/18 oxycodone 15 mg tablet 15 mg PO TID PRN tab 02/23/18 isosorbide mononitrate ER 30 mg 30 mg PO DAILY #90 tab 03/23/18 tablet,extended release 24 hr Surgical History: Surgical History (Last Reviewed 02/23/18 @ 09:34 by Samantha Trammell) 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) Z95.1 CABG X 3, SOTO to LAD, SVG to 1st diagonal & SVG to obtuse marginal @ summa 04/08/16 History of back surgery Z98.890 History of hysterectomy Z90.710 History of knee replacement procedure of right knee Z96.651 History of right inguinal hernia repair Z98.890, Z87.19 Surgical History: appendectomy, cholecystectomy, coronary bypass surgery, herniorrhaphy, hysterectomy, total knee arthroplasty, tonsillectomy, - - cryotherapy for kidney tumor Smoking Status: Never smoker - *Family History Maternal Family History: Family History (Last Reviewed 02/23/18 @ 09:34 by Samantha Trammell) Father Heart disease Mother Breast cancer Diabetes Heart disease History Items: Diabetes, Heart Disease - age 95 Paternal Family History: Family History (Last Reviewed 02/23/18 @ 09:34 by Samantha Trammell) Father Heart disease Mother Breast cancer Diabetes Heart disease History Items: Heart Disease - age 69 Review of Systems Constitutional: Reports: Weakness. Denies: Chills, Fever, Weight Change HEENT: Denies: Head Aches, Sinus Congestion, Sinus Drainage Cardiovascular: Denies: Chest Pain, Palpitations Respiratory: Denies: Cough, Shortness of breath at rest, Sputum production Gastrointestinal: Reports: Nausea, Vomiting. Denies: Abdominal Pain Genitourinary: Denies: Dysuria Musculoskeletal: Denies: Joint Pain, Joint Tenderness Skin: Denies: Rash, Wounds Neurological: Denies: Numbness, Tingling, Focal weakness Psychiatric: Denies: Anxiety, Depression, Homicidal Ideations, Suicidal Ideations Hematologic/ Lymphatic: Denies: Easy Bruising, Easy Bleeding VTE Information - Inpt Only VTE Present on Admission: No VTE Mechan Device Prophylaxis: None VTE Pharm Prophylaxis ordered?: Yes Patient Problems: Active and Suspected Problems (Last Reviewed 10/22/17 @ 15:09 by Jenny Galdamez) Hypoglycemia (Acute) Hyperkalemia (Acute) - Physical Exam General: Alert, Oriented x3, Cooperative HEENT: Atraumatic, Normocephalic Neck: Supple Lungs: Clear to auscultation, Normal air movement Cardiovascular: Regular rate, Regular Rhythm, Normal S1, Normal S2, No murmurs Abdomen: Bowel Sounds Present, Soft, Non Tender Extremities: No edema Skin: No breakdown Musculoskeletal: No Tenderness to Palpation of Joints or Extremities Neurological: Neuro grossly intact Psych/Mental Status: Normal Affect, Appropriate Vital Signs Temp Pulse Resp BP Pulse Ox 97.1 F L 56 L 16 153/69 H 95 04/27/18 21:32 04/28/18 00:36 04/28/18 00:36 04/28/18 00:36 04/28/18 00:36 Oxygen Delivery Method Room Air Weight: 160 lb Body Mass Index (BMI) 28.3 Finger Stick Blood Glucose 93 Laboratory Tests Past 24 Hrs 04/27/18 04/27/18 04/27/18 23:24 23:24 23:28 WBC 16.7 H RBC 4.43 Hgb 13.6 Hct 42.2 MCV 95.3 MCH 30.7 MCHC 32.2 RDW 14.0 RDW Differential 49.0 H Plt Count 221 MPV 11.2 Immature Gran % (Auto) 0.200 Neut % (Auto) 85.0 H Lymph % (Auto) 11.4 L [place] % (Auto) 3.0 Eos % (Auto) 0.2 Baso % (Auto) 0.2 Absolute Neuts (auto) 14.2 H Absolute Lymphs (auto) 1.90 Total Counted Not Reportable Sodium 134 L Potassium 5.5 H Chloride 107 Carbon Dioxide 22.0 Anion Gap 5 BUN 34 H Creatinine 1.93 H Estim Creat Clear Calc 19.23 Est GFR (MDRD) Af Amer 32 L Est GFR (MDRD) Non-Af 27 L BUN/Creatinine Ratio 17.6 Glucose 104 Calcium 9.1 Total Bilirubin 0.30 AST 13 L ALT 17 Alkaline Phosphatase 99 Troponin I < 0.015 Total Protein 8.9 H Albumin 4.6 Globulin 4.3 H Albumin/Globulin Ratio 1.1 Urine Color Yellow Urine Clarity Clear Urine pH 5.0 Ur Specific [place] 1.025 Urine Protein 30 H Urine Glucose (UA) Normal Urine Ketones 5 H Urine Occult Blood Negative Urine Nitrite Negative Urine Bilirubin Negative Urine Urobilinogen Normal Ur Leukocyte Esterase 25 H Urine RBC 0 SEEN Urine WBC 0-5 SEEN Ur Squamous Epith Cells 0-5 SEEN Urine Bacteria RARE Urine Mucus RARE 04/28/18 04/28/18 00:29 00:54 WBC RBC Hgb Hct MCV MCH MCHC RDW RDW Differential Plt Count MPV Immature Gran % (Auto) Neut % (Auto) Lymph % (Auto) [place] % (Auto) Eos % (Auto) Baso % (Auto) Absolute Neuts (auto) Absolute Lymphs (auto) Total Counted Sodium Potassium Cancelled 6.4 H* Chloride Carbon Dioxide Anion Gap BUN Creatinine Estim Creat Clear Calc Est GFR (MDRD) Af Amer Est GFR (MDRD) Non-Af BUN/Creatinine Ratio Glucose Calcium Total Bilirubin AST ALT Alkaline Phosphatase Troponin I Total Protein Albumin Globulin Albumin/Globulin Ratio Urine Color Urine Clarity Urine pH Ur Specific [place] Urine Protein Urine Glucose (UA) Urine Ketones Urine Occult Blood Urine Nitrite Urine Bilirubin Urine Urobilinogen Ur Leukocyte Esterase Urine RBC Urine WBC Ur Squamous Epith Cells Urine Bacteria Urine Mucus POC Glucose 04/27/18 04/27/18 04/27/18 23:15 22:18 21:40 POC Glucose 93 73 54 L Assessment/Plan All Active Problems (Last Reviewed 10/22/17 @ 15:09 by Jenny Galdamez) Hypoglycemia (Acute) Hyperkalemia (Acute) Debility (Acute) Hyperkalemia (Resolved) Third nerve palsy (Resolved) Chronic Problems (Last Reviewed 10/22/17 @ 15:09 by Jenny Galdamez) Chronic renal failure, stage 3 (moderate) (Chronic) Hyperlipidemia (Chronic) Other correction (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 (Chronic) TIA (transient ischemic attack) (Chronic) Angina pectoris (Chronic) Obstructive sleep apnea (Chronic) 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) CABG X 3, SOTO to LAD, SVG to 1st diagonal & SVG to obtuse marginal @ summa 04/08/16 Postlaminectomy syndrome of lumbar region (Chronic) Lumbosacral radiculopathy (Chronic) Diabetes mellitus, type 2 (Chronic) Hypertension (Chronic) History of stroke (Chronic) Fibromyalgia (Chronic) GERD (Chronic) Hypothyroidism (Chronic) Renal cancer (Chronic) CAD (coronary artery disease) (Chronic) CABG X 3, SOTO to LAD, SVG to 1st diagonal & SVG to obtuse marginal @ summa 04/08/16 Assessment and Plan 1. Nausea and vomiting-- Zofran , IV normal saline at 75cc/hr 2. hypoglycemia -- accucheck prn and bmp in am. 3. Hyperkalemia-- repeat BMP in am, was given insulin and dextrose in ED initiate normal diet in am, if electrolytes are within normal limits and she continues to feel better then she can be discharged for further management by her PCP LMWH for DVT prophylaxis Code Visit OBSV E&M: 85092 Initial observation care L2
[2018-04-28] MEDS: Dextrose 50%-Water 25 GM/50 ML DISP.SYRIN IV (01:49)
[2018-04-28] MEDS: 0.9% Normal Saline 1,000 ML 75 ML IV (02:33)
[2018-04-28 02:36] LABS: Bedside Glucose 291 mg/dL (70-110)
[2018-04-28] MEDS: oxyCODONE 5 MG Tablet 15 MG PO (02:54)
[2018-04-28 05:42] LABS: Absolute Neutrophil Count 5.9 X10^3/uL (2.0-7.7); Basophil# 0.02 X10^3/uL; Basophil% 0.2 % (0-1); Eosinophil# 0.09 X10^3/uL; Eosinophils% 0.9 % (0-5); Hematocrit 34.5 % (37-47); Hemoglobin 11.1 g/dl (12.0-15.0); Lymphocyte % 29.4 % (19-41); Mean Corp Hgb Conc 32.2 g/gl (32-36); Mean Corpuscular Hgb 30.6 pg (27.0-32.0); Mean Platelet Vol. 11.6 fl (6.2-12.0); Monocyte% 9.1 % (0-10); Neutrophil # 5.93 X10^3/uL (2.7-7.7); Neutrophil % 60.3 % (47-70); Platelet Count 180 K/mm3 (150-450); RBC Distribution Width SD 48.9 fl (35.1-43.9); Red Blood Count 3.63 M/mm3 (4.2-5.4); White Blood Count 9.9 K/mm3 (4.4-11.0)
[2018-04-28 05:44] LABS: POSITIVE COUNT NO; POSITIVE DIFFERENTIAL NO; POSITIVE MORPHOLOGY NO
[2018-04-28 05:52] LABS: Anion Gap 8 (5-15); BUN 30 mg/dL (7-18); BUN/Creat Ratio 18.3 RATIO (10-20); Calcium,Total 8.7 mg/dL (8.5-10.1); Chloride 111 mmol/L (98-107); Creatinine, Serum 1.64 mg/dL (0.55-1.02); EST Glomerular Filtration Rate 32 mL/min (>60); Est Glom Filt Rate - Afr Amer 39 mL/min (>60); Estimated Creatinine Clearance 22.63 ml/min; Glucose 203 mg/dL (74-106); Potassium 5.4 mmol/L (3.5-5.1); Sodium Level 139 mmol/L (136-145)
[2018-04-28] MEDS: Levothyroxine 88 MCG Tablet PO (05:57)
[2018-04-28] MEDS: hydrALAZINE 50 MG Tablet PO (05:57)
[2018-04-28 06:50] LABS: Bedside Glucose 170 mg/dL (70-110)
[2018-04-28] MEDS: Pantoprazole Sodium 40 MG Tablet PO (08:01)
[2018-04-28] MEDS: amLODIPine 10 MG Tablet PO (08:01)
[2018-04-28] MEDS: Clopidogrel Bisulfate 75 MG Tablet PO (08:01)
[2018-04-28] MEDS: Lisinopril 20 MG Tablet PO (08:01)
[2018-04-28] MEDS: DULoxetine Hcl 20 MG Capsule PO (08:02)
[2018-04-28] MEDS: Aspirin E.C. 81 MG Tablet PO (08:02)
[2018-04-28] MEDS: Tolterodine Tartrate 2 MG CAP.SA PO (08:02)
[2018-04-28] MEDS: Gabapentin 300 MG Capsule PO (08:02)
[2018-04-28] MEDS: Isosorbide Mononitrate 30 MG Tablet PO (08:02)
[2018-04-28] MEDS: Enoxaparin 30 MG/0.3 ML Syringe SC (08:03)
[2018-04-28] MEDS: Glucerna Shake 120 ML LIQUID PO (08:05)
[2018-04-28] MEDS: Metoprolol Tartrate 50 MG Tablet PO (11:49)
[2018-04-28 11:56] LABS: Bedside Glucose 180 mg/dL (70-110)
--- NOTE | 2018-04-28 13:51 | DCINST_ITS ---
- Discharge Diagnoses Current Active Problems: Current Active and Chronic Problems (Last Reviewed 10/22/17 @ 15:09 by Jenny Galdamez) Hypoglycemia (Acute) Hyperkalemia (Acute) You will use the following diet at home:: Calorie/Carbohydrate Controlled (specify 1200, 1400, etc) - 1800 Discharge Activity: Return to Normal Activity Call your doctor if you observe: Fever of 101 or Higher, Shortness of breath, - - low blood sugar Allergies/Adverse Reactions: Allergies latex Allergy (Verified 02/23/18 09:27) Rash adhesive tape Adverse Reaction (Verified 02/23/18 09:27) Rash Medications to take at Discharge Lansoprazole [Prevacid] 30 mg PO DAILY 05/09/16 lisinopril 20 mg tablet 20 mg PO DAILY 90 Days #90 04/22/17 Levothyroxine [Synthroid] 88 mcg PO DAILY 04/25/17 atorvastatin 40 mg tablet 40 mg PO DAILY #90 tab 06/30/17 Metformin(XR) [Glucophage Xr] 1,000 mg PO BID 08/25/17 Oxybutynin Chloride [Ditropan Xl] 10 mg PO DAILY 08/25/17 Aspirin E.C. [Ecotrin] 81 mg PO DAILY@0800 08/30/17 Clopidogrel Bisulfate [Plavix] 75 mg PO DAILY 30 Days #60 tab 09/08/17 Gabapentin [Neurontin] 300 mg PO BIDCM 30 Days #60 cap 09/08/17 Insulin Lispro [Humalog KwikPen] See Protocol SC TIDAC #1 insuln.pen 09/08/17 insulin glargine (U-100) 100 unit/mL (3 mL) subcutaneous pen 60 unit SC BREAKFAST ml 01/29/18 Metoprolol Tartrate [Lopressor (beta brittany)] 50 mg PO BID 02/15/18 amlodipine 10 mg tablet 10 mg PO DAILY 02/23/18 cholecalciferol (vitamin D3) 1,000 unit tablet 1,000 unit PO .COMPLEX tab 02/23/18 diphenhydramine 25 mg-acetaminophen 500 mg tablet 2 tab PO QHS PRN 02/23/18 duloxetine 20 mg capsule,delayed release 20 mg PO DAILY cap 02/23/18 hydralazine 50 mg tablet 50 mg PO TID 90 Days #270 tab 02/23/18 isosorbide mononitrate ER 30 mg tablet,extended release 24 hr 30 mg PO DAILY #90 tab 03/23/18 Primary Care Physician: Fernando Kong MD [Primary Care Provider] - Within 2 Weeks Test Results: Test results from this visit will be discussed in further detail at your follow- up appointment, if applicable. Proposed Discharge Date: 04/28/18
--- NOTE | 2018-04-28 13:51 | PCM.DC.SUM ---
Discharge Date and Diagnosis - Problem List Patient Problems: Active and Suspected Problems (Last Reviewed 10/22/17 @ 15:09 by Jenny Galdamez) Hypoglycemia (Acute) Hyperkalemia (Acute) Date of Admission: 04/28/18 Date of Discharge: 04/28/18 - Primary Discharge Diagnosis Active and Suspected Problems (Last Reviewed 10/22/17 @ 15:09 by Jenny Galdamez) Hypoglycemia (Acute) Hyperkalemia (Acute) 1. Hypoglycemia 2. Hyperkalemia 3. Acute kidney injury 4. 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) TIA (transient ischemic attack) (Chronic) Angina pectoris (Chronic) Obstructive sleep apnea (Chronic) 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) CABG X 3, SOTO to LAD, SVG to 1st diagonal & SVG to obtuse marginal @ summa 04/08/16 Postlaminectomy syndrome of lumbar region (Chronic) Lumbosacral radiculopathy (Chronic) Diabetes mellitus, type 2 (Chronic) Hypertension (Chronic) History of stroke (Chronic) Fibromyalgia (Chronic) GERD (Chronic) Hypothyroidism (Chronic) Renal cancer (Chronic) CAD (coronary artery disease) (Chronic) CABG X 3, SOTO to LAD, SVG to 1st diagonal & SVG to obtuse marginal @ summa 04/08/16 Hospital Course and Treatment Operations: None Procedures: None Summary of Care Provided: The patient is a 82 year old F [place]ño with sudden onset of nausea and vomiting. Patient was found to have a blood sugars in the 40s. Brought to the emergency room blood sugars in the 50s. Patient was found to have per kalemia with potassium of 6.6 and acute kidney injury with a creatinine of 1.9, with a baseline around 1.5. Patient received IV fluids and much of her diabetic medications were held. Patient's blood sugars have remained stable, kidney failure has resolved and is back to baseline and potassium is improved. Is feeling that all this culminated due to an acute viral gastroenteritis. Patient has since tolerated food and is stable for discharge to home. Given the patient's chronic kidney disease is advised that she follow-up with nephrology as outpatient just for further monitoring. I told the patient and her that there is no urgency for this but just more for monitoring purposes. [] Patient Problems: Active and Suspected Problems (Last Reviewed 10/22/17 @ 15:09 by Jenny Galdamez) Hypoglycemia (Acute) Hyperkalemia (Acute) - Physical Exam General: Alert, Cooperative, No apparent distress HEENT: Atraumatic, Normocephalic Oral: Moist Mucosa, No Gingival or Mucosal Lesions/ Ulcerations Neck: No Nodes, Thyroid Normal Size and Texture Lungs: Clear to auscultation, Normal air movement, No rhonchi, No wheeze Cardiovascular: Regular rate, Regular Rhythm, Normal S1, Normal S2, No murmurs Abdomen: Bowel Sounds Present, Soft, Non Tender, Non-Distended, No Hepato-splenomegaly Extremities: No edema, No Calf Tenderness Vital Signs Temp Pulse Resp BP Pulse Ox 36.8 C 68 16 124/54 H 94 04/28/18 07:57 04/28/18 11:49 04/28/18 07:57 04/28/18 11:49 04/28/18 07:57 Oxygen Delivery Method Room Air Weight: 75.9 kg Body Mass Index (BMI) 29.6 Finger Stick Blood Glucose 93 Intake and Output for Last 24 Hours 04/26/18 04/27/18 04/28/18 23:59 23:59 23:59 Intake Total 1268 / 1268 Balance 1268 / 1268 Laboratory Tests Past 24 Hrs 04/27/18 04/27/18 04/27/18 23:24 23:24 23:28 WBC 16.7 H RBC 4.43 Hgb 13.6 Hct 42.2 MCV 95.3 MCH 30.7 MCHC 32.2 RDW 14.0 RDW Differential 49.0 H Plt Count 221 MPV 11.2 Immature Gran % (Auto) 0.200 Neut % (Auto) 85.0 H Lymph % (Auto) 11.4 L [place] % (Auto) 3.0 Eos % (Auto) 0.2 Baso % (Auto) 0.2 Absolute Neuts (auto) 14.2 H Absolute Lymphs (auto) 1.90 Total Counted Not Reportable Sodium 134 L Potassium 5.5 H Chloride 107 Carbon Dioxide 22.0 Anion Gap 5 BUN 34 H Creatinine 1.93 H Estim Creat Clear Calc 19.23 Est GFR (MDRD) Af Amer 32 L Est GFR (MDRD) Non-Af 27 L BUN/Creatinine Ratio 17.6 Glucose 104 Calcium 9.1 Total Bilirubin 0.30 AST 13 L ALT 17 Alkaline Phosphatase 99 Troponin I < 0.015 Total Protein 8.9 H Albumin 4.6 Globulin 4.3 H Albumin/Globulin Ratio 1.1 Urine Color Yellow Urine Clarity Clear Urine pH 5.0 Ur Specific [place] 1.025 Urine Protein 30 H Urine Glucose (UA) Normal Urine Ketones 5 H Urine Occult Blood Negative Urine Nitrite Negative Urine Bilirubin Negative Urine Urobilinogen Normal Ur Leukocyte Esterase 25 H Urine RBC 0 SEEN Urine WBC 0-5 SEEN Ur Squamous Epith Cells 0-5 SEEN Urine Bacteria RARE Urine Mucus RARE 04/28/18 04/28/18 04/28/18 00:29 00:54 05:15 WBC RBC Hgb Hct MCV MCH MCHC RDW RDW Differential Plt Count MPV Immature Gran % (Auto) Neut % (Auto) Lymph % (Auto) [place] % (Auto) Eos % (Auto) Baso % (Auto) Absolute Neuts (auto) Absolute Lymphs (auto) Total Counted Sodium 139 Potassium Cancelled 6.4 H* 5.4 H Chloride 111 H Carbon Dioxide 20.0 L Anion Gap 8 BUN 30 H Creatinine 1.64 H Estim Creat Clear Calc 22.63 Est GFR (MDRD) Af Amer 39 L Est GFR (MDRD) Non-Af 32 L BUN/Creatinine Ratio 18.3 Glucose 203 H Calcium 8.7 Total Bilirubin AST ALT Alkaline Phosphatase Troponin I Total Protein Albumin Globulin Albumin/Globulin Ratio Urine Color Urine Clarity Urine pH Ur Specific [place] Urine Protein Urine Glucose (UA) Urine Ketones Urine Occult Blood Urine Nitrite Urine Bilirubin Urine Urobilinogen Ur Leukocyte Esterase Urine RBC Urine WBC Ur Squamous Epith Cells Urine Bacteria Urine Mucus 04/28/18 05:15 WBC 9.9 RBC 3.63 L Hgb 11.1 L Hct 34.5 L MCV 95.0 MCH 30.6 MCHC 32.2 RDW 14.0 RDW Differential 48.9 H Plt Count 180 MPV 11.6 Immature Gran % (Auto) 0.100 Neut % (Auto) 60.3 Lymph % (Auto) 29.4 [place] % (Auto) 9.1 Eos % (Auto) 0.9 Baso % (Auto) 0.2 Absolute Neuts (auto) 5.9 Absolute Lymphs (auto) 2.90 Total Counted Not Reportable Sodium Potassium Chloride Carbon Dioxide Anion Gap BUN Creatinine Estim Creat Clear Calc Est GFR (MDRD) Af Amer Est GFR (MDRD) Non-Af BUN/Creatinine Ratio Glucose Calcium Total Bilirubin AST ALT Alkaline Phosphatase Troponin I Total Protein Albumin Globulin Albumin/Globulin Ratio Urine Color Urine Clarity Urine pH Ur Specific [place] Urine Protein Urine Glucose (UA) Urine Ketones Urine Occult Blood Urine Nitrite Urine Bilirubin Urine Urobilinogen Ur Leukocyte Esterase Urine RBC Urine WBC Ur Squamous Epith Cells Urine Bacteria Urine Mucus POC Glucose 04/28/18 04/28/18 04/28/18 11:32 06:36 02:29 POC Glucose 180 H 170 H 291 H 04/27/18 04/27/18 04/27/18 23:15 22:18 21:40 POC Glucose 93 73 54 L Discharge Diet: 1800 Calorie Control Diet Discharge Activity: Return to Normal Activity Call your doctor if you observe: Fever of 101 or Higher, Shortness of breath, - - low blood sugar Home Medications: Medications to take at Discharge Lansoprazole [Prevacid] 30 mg PO DAILY 05/09/16 lisinopril 20 mg tablet 20 mg PO DAILY 90 Days #90 04/22/17 Levothyroxine [Synthroid] 88 mcg PO DAILY 04/25/17 atorvastatin 40 mg tablet 40 mg PO DAILY #90 tab 06/30/17 Metformin(XR) [Glucophage Xr] 1,000 mg PO BID 08/25/17 Oxybutynin Chloride [Ditropan Xl] 10 mg PO DAILY 08/25/17 Aspirin E.C. [Ecotrin] 81 mg PO DAILY@0800 08/30/17 Clopidogrel Bisulfate [Plavix] 75 mg PO DAILY 30 Days #60 tab 09/08/17 Gabapentin [Neurontin] 300 mg PO BIDCM 30 Days #60 cap 09/08/17 Insulin Lispro [Humalog KwikPen] See Protocol SC TIDAC #1 insuln.pen 09/08/17 insulin glargine (U-100) 100 unit/mL (3 mL) subcutaneous pen 60 unit SC BREAKFAST ml 01/29/18 Metoprolol Tartrate [Lopressor (beta brittany)] 50 mg PO BID 02/15/18 amlodipine 10 mg tablet 10 mg PO DAILY 02/23/18 cholecalciferol (vitamin D3) 1,000 unit tablet 1,000 unit PO .COMPLEX tab 02/23/18 diphenhydramine 25 mg-acetaminophen 500 mg tablet 2 tab PO QHS PRN 02/23/18 duloxetine 20 mg capsule,delayed release 20 mg PO DAILY cap 02/23/18 hydralazine 50 mg tablet 50 mg PO TID 90 Days #270 tab 02/23/18 isosorbide mononitrate ER 30 mg tablet,extended release 24 hr 30 mg PO DAILY #90 tab 03/23/18 Primary Care Physician: Fernando Kong MD [Primary Care Provider] - Within 2 Weeks Please Follow Up With: Sydnee Andersen DO - Nephrology for chronic kidney disease When: 1-2 months Disposition: Home Minutes spent on discharge:: 24 Patient Condition:: Good Medical Necessity - Tobacco Use Smoking Status: Never smoker Meaningful Use Info Meaningful Use Diagnoses (Choose all that apply): None applicable Code Visit OBSV E&M: 19363 Observation care discharge
--- NOTE | 2018-04-28 14:07 | CASEMGMT ---
This RN CM to room to discuss discharge plan/needs with pt/ at this time. Pt/ state no concerns with going home at time of discharge. Pt states no concerns getting meds and she states that her sets up her meds for her at home. Pt states further questions/concerns/needs at this time. SStaten RUTHIE PINZON
== END 2018-04-28 13:50 | disposition home or self-care (01) ==
LOC: ED 22:25 → PCU 04-28 01:39
PROVIDERS: Admitting Provider Family Medicine; Emergency Provider Emergency Medicine; Family Provider Family Medicine; PCP Family Medicine
DX: E87.5 Hyperkalemia (principal); Z79.899 Other long term (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; Z79.02 Long term (current) use of antithrombotics/antiplatelets; Z79.82 Long term (current) use of aspirin; Z79.4 Long term (current) use of insulin; I44.0 Atrioventricular block, first degree; G47.33 Obstructive sleep apnea (adult) (pediatric); N18.3 Chronic kidney disease, stage 3 (moderate); E78.5 Hyperlipidemia, unspecified; E11.22 Type 2 diabetes mellitus with diabetic chronic kidney disease; I12.9 Hypertensive chronic kidney disease with stage 1 through stage 4 chronic kidney disease, or unspecified chronic kidney disease; K21.9 Gastro-esophageal reflux disease without esophagitis; E03.9 Hypothyroidism, unspecified; M79.7 Fibromyalgia; Z86.73 Personal history of transient ischemic attack (TIA), and cerebral infarction without residual deficits; Z85.528 Personal history of other malignant neoplasm of kidney; I25.10 Atherosclerotic heart disease of native coronary artery without angina pectoris; Z95.1 Presence of aortocoronary bypass graft; M96.1 Postlaminectomy syndrome, not elsewhere classified
CPT/HCPCS: 36415; 80048; 80053; 81001; 82962; 84132; 84484; 85025; 93005; 96361; 96372; 96374; 96375; 97802; 99218; 99283; J7030; J7040; A4216; G0378; J0610; J2405

== ENCOUNTER → 2018-05-01 12:44 | Outpatient (CLI) | payer MEDICARE, SELFPAY ==
[2018-02-23 09:27] VITALS: BMI 27.4
[2018-04-28 02:19] VITALS: BMI 29.6
--- NOTE | 2018-05-01 12:46 | CDU_ITS ---
Reason For Study: CAROTID STENOSIS Rt. Velocities/BP Lt. Velocities/BP Prox CCA 119.0/13.4 cm/sec. Prox CCA 96.6/12.8 cm/sec. Mid CCA 74.5/10.6 cm/sec. Mid CCA 81.5/10.6 cm/sec. Dist CCA 68.6/11.1 cm/sec. Dist CCA 76.2/14.1 cm/sec. Prox ICA 79.7/16.4 cm/sec. Prox ICA 113.0/17.7 cm/sec. Mid ICA 91.5/19.9 cm/sec. Mid ICA 82.5/18.1 cm/sec. Dist ICA 71.3/16.9 cm/sec. Dist ICA 68.1/16.9 cm/sec. Rt. ICA/CCA = 91.5/74.5=1.2. Lt. ICA/CCA = 113.0/81.5=1.4. Prox ECA 129.0/11.8 cm/sec. Prox ECA 167.0/13.7 cm/sec. Rt. Vert. 52.2/7.86 cm/sec. Lt. Vert. 81.7/13.4 cm/sec. Right Extracranial There is intimal thickening but no significant atherosclerotic plaque noted in the right common carotid artery. There is heterogeneous, irregular atherosclerotic plaque noted in the right internal carotid artery. There is heterogeneous, irregular atherosclerotic plaque noted in the right external carotid artery. Antegrade flow is noted in the right vertebral artery. Left Extracranial There is heterogeneous, irregular atherosclerotic plaque noted in the left common carotid artery. There is heterogeneous, irregular atherosclerotic plaque noted in the left internal carotid artery. The atherosclerotic plaque causes acoustic shadowing. There is heterogeneous, irregular atherosclerotic plaque noted in the left external carotid artery. Antegrade flow is noted in the left vertebral artery. 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 <50% stenosis left external carotid Patent and antegrade bilateral vertebrals No change from 08/27/17. Ordering Physician: Jose Angel Wooten Referring Physician: Fernando Kong Performed By: Jenny Ley, CASI, RVT
== END ==
PROVIDERS: Family Provider Family Medicine; PCP Family Medicine; Referring Provider Surgery; Visit Provider Surgery
DX: I25.10 Atherosclerotic heart disease of native coronary artery without angina pectoris (principal); Z86.73 Personal history of transient ischemic attack (TIA), and cerebral infarction without residual deficits
CPT/HCPCS: 93880

== ENCOUNTER → 2018-06-05 09:42 | Outpatient (CLI) | payer MEDICARE, SELFPAY ==
[2018-05-05 14:13] VITALS: BMI 29.6
[2018-06-05 12:19] LABS: Absolute Lymphocyte Count 2.77 X10^3/ul (0.83-4.51); Absolute Neutrophil Count 4.7 X10^3/uL (2.0-7.7); Basophil# 0.05 X10^3/uL; Basophil% 0.6 % (0-1); Eosinophil# 0.47 X10^3/uL; Eosinophils% 5.4 % (0-5); Hematocrit 38.7 % (37-47); Hemoglobin 12.2 g/dl (12.0-15.0); Lymphocyte # 2.77 X10^3/ul (4.0); Lymphocyte % 31.6 % (19-41); Mean Corp Hgb Conc 31.5 g/gl (32-36); Mean Corpuscular Volume 95.1 fL (81-99); Mean Platelet Vol. 12.1 fl (6.2-12.0); Monocyte% 9.1 % (0-10); Neutrophil # 4.66 X10^3/uL (2.7-7.7); Neutrophil % 53.1 % (47-70); Platelet Count 218 K/mm3 (150-450); RBC Distribution Width CV 13.7 % (11.6-14.6); RBC Distribution Width SD 45.2 fl (35.1-43.9); Red Blood Count 4.07 M/mm3 (4.2-5.4); White Blood Count 8.8 K/mm3 (4.4-11.0)
[2018-06-05 12:26] LABS: POSITIVE COUNT NO; POSITIVE DIFFERENTIAL NO; POSITIVE MORPHOLOGY NO
[2018-06-05 13:14] LABS: Anion Gap 7 (5-15); BUN 33 mg/dL (7-18); BUN/Creat Ratio 18.4 RATIO (10-20); Calcium,Total 8.9 mg/dL (8.5-10.1); Chloride 110 mmol/L (98-107); Creatinine, Serum 1.79 mg/dL (0.55-1.02); EST Glomerular Filtration Rate 29 mL/min (>60); Est Glom Filt Rate - Afr Amer 35 mL/min (>60); Glucose 113 mg/dL (74-106); Potassium 6.4 mmol/L (3.5-5.1); Sodium Level 138 mmol/L (136-145)
== END ==
PROVIDERS: Family Provider Family Medicine; PCP Family Medicine; Visit Provider Family Medicine
DX: I10 Essential (primary) hypertension (principal); N17.9 Acute kidney failure, unspecified; E87.5 Hyperkalemia
CPT/HCPCS: 36415; 80048; 85025

== ENCOUNTER → 2018-06-08 09:23 | Outpatient (CLI) | payer MEDICARE, SELFPAY ==
[2018-05-05 14:13] VITALS: BMI 29.6
[2018-06-08 11:09] LABS: Anion Gap 6 (5-15); BUN 26 mg/dL (7-18); BUN/Creat Ratio 19.4 RATIO (10-20); Calcium,Total 9.1 mg/dL (8.5-10.1); Chloride 112 mmol/L (98-107); Creatinine, Serum 1.34 mg/dL (0.55-1.02); EST Glomerular Filtration Rate 40 mL/min (>60); Est Glom Filt Rate - Afr Amer 49 mL/min (>60); Glucose 199 mg/dL (74-106); Potassium 5.5 mmol/L (3.5-5.1); Sodium Level 137 mmol/L (136-145)
== END ==
PROVIDERS: Family Provider Family Medicine; PCP Family Medicine; Visit Provider Family Medicine
DX: I10 Essential (primary) hypertension (principal)
CPT/HCPCS: 36415; 80048

== ENCOUNTER 2018-06-10 09:21 | Emergency (ER) | payer MEDICARE, SELFPAY ==
[2018-05-05 14:13] VITALS: BMI 29.6
[2018-06-10 09:22] VITALS: BP 134/64; PULSE 62; RESP 19; TEMP 36.4; O2SAT 95; BMI 27.4
[2018-06-10] MEDS: Carbamide Peroxide 15 ML Bottle 10 DRP OTIC (10:09)
[2018-06-10] MEDS: Ondansetron ODT 4 MG Tablet PO (10:09)
--- NOTE | 2018-06-10 10:17 | ED.DCSUM_ITS ---
History of Present Illness Chief Complaint: Dizziness Informant: Patient, Significant Other Onset: Days - Per my history 2 days per triage 3 days Context: Sudden Onset Timing: Continuous - Continuous nausea, Intermittent - Intermittent dizziness w hich occurs when she is upright. She does not give orthostatic symptoms. She is not able to define whether there is spinning or motion. Quality: Dizziness and continuous nausea without vomiting Location: Unable to elaborate Current Severity: Mild Maximum Severity: Moderate Worsened by: Change in position Relieved by: Nothing Associated Symptoms: nausea only Narrative: Patient is an 82-year-old woman who presents with continuous nausea for 2 to 3 days with dizziness with change of position and especially upright position. She denies headache. She denies double vision, blurred vision, change in vision or loss in vision. She denies trouble with speech or swallowing. She denies cardiac or respiratory symptoms. She denies paresthesia, anesthesia or motor weakness. She denies difficulty walking or problems with balance. She denies black or maroon stool. There is no history of head trauma. 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: Chronic (11) S/P coronary artery bypass graft x 3 Status: Chronic Comment: CABG X 3, SOTO to LAD, SVG to 1st diagonal & SVG to obtuse marginal @ [facility] 04/08/16 (12) TIA (transient ischemic attack) Status: Chronic Past Medical History - Allergies and Home Meds Allergies/Adverse Reactions: Allergies latex Allergy (Verified 06/10/18 09:23) Rash adhesive tape Adverse Reaction (Verified 06/10/18 09:23) Rash Primary Care Physician: Fernando Kong MD [Primary Care Provider] - Prior records reviewed: Yes Surgical History: appendectomy, cholecystectomy, coronary bypass surgery, herniorrhaphy, hysterectomy, total knee arthroplasty, tonsillectomy, - - cryotherapy for kidney tumor Lives: Spouse/ Significant Other Smoking Status: Never smoker Alcohol: None - Family History Maternal Family History: Family History (Last Reviewed 05/05/18 @ 14:10 by Jenny Galdamez) Father Heart disease Mother Breast cancer Diabetes Heart disease Family History: Reports: Diabetes, Heart Disease - age 95 Paternal Family History: Family History (Last Reviewed 05/05/18 @ 14:10 by Jenny Galdamez) Father Heart disease Mother Breast cancer Diabetes Heart disease Family History: Reports: Heart Disease - age 69 Review of Systems General: Denies: Chills, Fever, Subjective, Sweats Eyes: Denies: Visual changes - bilaterally, Blurred Vision - bilaterally, Diplopia ENT: Denies: Left ear pain, Right ear pain, Rhinorrhea, Sore throat Cardiovascular: Denies: Chest pain, Palpitations Respiratory: Denies: Dyspnea, Cough, Dyspnea on exertion, Orthopnea, Paroxysmal nocturnal dyspnea Gastrointestinal: Reports: Nausea. Denies: Abdominal pain, Vomiting, Diarrhea, Constipation, Melena, Hematochezia, -, - Genitourinary: Denies: Dysuria, Hematuria, Frequency Musculoskeletal: Denies: Myalgias, Arthralgias, Neck pain, Back pain, Swelling Skin: Denies: Rash Neurological: Denies: Headache, Weakness, Parasthesia, Numbness Psych: Denies: Depression, Anxiety Hematologic: Denies: Easy bruising, Easy bleeding Allergy: Denies: Uticaria, Swelling of the mouth Physical Exam Vital Signs/Narrative: Vital Signs Temp Pulse Resp BP Pulse Ox 06/10/18 09:22 97.5 F L 62 19 H 134/64 H 95 Inital Vital Signs reviewed: Yes General: Well nourished, Well developed, No Acute Distress Head: Normocephalic, Atraumatic Eyes: Perrl, EOMI. Negative for: Pale conjunctiva, Scleral icterus, - ENT: Moist mucous membranes, No rhinorrhea, TM's clear - Unable to visualize right TM secondary to cerumen impaction of the right external auditory canal.. Negative for: Nasal congestion Cardiovascular: Regular rate, Regular rhythm, No murmurs, Normal S1, Normal S2 Respiratory: No distress, CTA bilaterally, Chest nontender Abdomen: Soft, Nontender, Nondistended, Normal bowel sounds Back: Nontender, Normal Inspection Extremities: Nontender, No edema Skin: Normal color, No rash, No Trauma. Negative for: Jaundice Neurological: Alert, Oriented x3, Cranial nerves II-XII grossly intact, Normal Strength, Normal Sensation, Normal DTR, Normal Gait, - - Collbran-Hallpike maneuver, eye Fatemeh test and hint test were negative. Patient did complain of dizziness with changing from supine to upright position. Psychological: Normal affect Diagnostic/Tx/Re-eval - Medical Decision Making Cerumen impaction can cause dizziness. Will have Debrox instilled in the right ear and the right external auditory canal irrigated. If symptoms resolve with disimpaction of the right external auditory canal will treat for peripheral vertigo secondary to cerumen impaction. CT was not ordered since patient has a normal neuro exam and unable to adequately describe what she means by dizziness. Patient had minimal results when nurse attempt to irrigate. Irrigation by me resulted in removal of large pieces of wax. Patient is now able to hear and her dizziness has resolved. ED Disposition - Plan for ED Patient: Disposition: Home or Assisted Living Diagnosis: Impacted cerumen of right ear, Peripheral vertigo involving right ear Instructions: ED Earwax Removal Referrals: Fernando Kong MD [Primary Care Provider] - As Needed
[2018-06-10 13:09] VITALS: BP 134/66; PULSE 66; RESP 17; O2SAT 93
== END 2018-06-10 13:10 | disposition home or self-care (01) ==
PROVIDERS: Emergency Provider Emergency Medicine; Family Provider Family Medicine; PCP Family Medicine
DX: H61.21 Impacted cerumen, right ear (principal); H81.391 Other peripheral vertigo, right ear; G47.33 Obstructive sleep apnea (adult) (pediatric); Z90.49 Acquired absence of other specified parts of digestive tract; Z86.73 Personal history of transient ischemic attack (TIA), and cerebral infarction without residual deficits; Z95.1 Presence of aortocoronary bypass graft; E03.9 Hypothyroidism, unspecified; K21.9 Gastro-esophageal reflux disease without esophagitis; E11.9 Type 2 diabetes mellitus without complications; N18.3 Chronic kidney disease, stage 3 (moderate); I25.10 Atherosclerotic heart disease of native coronary artery without angina pectoris
CPT/HCPCS: 99282

== ENCOUNTER → 2018-06-16 13:23 | Outpatient (CLI) | payer MEDICARE, SELFPAY ==
[2018-05-05 14:13] VITALS: BMI 29.6
[2018-06-10 09:22] VITALS: BMI 27.4
[2018-06-16 14:49] LABS: Anion Gap 11 (5-15); BUN 27 mg/dL (7-18); BUN/Creat Ratio 16.4 RATIO (10-20); Calcium,Total 8.8 mg/dL (8.5-10.1); Chloride 107 mmol/L (98-107); Creatinine, Serum 1.65 mg/dL (0.55-1.02); EST Glomerular Filtration Rate 32 mL/min (>60); Est Glom Filt Rate - Afr Amer 38 mL/min (>60); Glucose 283 mg/dL (74-106); Potassium 5.1 mmol/L (3.5-5.1); Sodium Level 138 mmol/L (136-145)
== END ==
PROVIDERS: Family Provider Family Medicine; PCP Family Medicine; Visit Provider Family Medicine
DX: N18.3 Chronic kidney disease, stage 3 (moderate) (principal); E87.5 Hyperkalemia
CPT/HCPCS: 36415; 80048

== ENCOUNTER → 2018-07-01 11:04 | Outpatient (CLI) | payer MEDICARE, SELFPAY ==
[2018-06-10 09:22] VITALS: BMI 27.4
[2018-07-01 11:47] LABS: Hemoglobin A1c 7.9 % (4.2-6.3)
[2018-07-01 11:56] LABS: AST(SGOT) 12 U/L (15-37); Alanine Aminotransfer ALT/SGPT 18 U/L (13-56); Anion Gap 8 (5-15); BUN 23 mg/dL (7-18); BUN/Creat Ratio 15.6 RATIO (10-20); Calcium,Total 8.2 mg/dL (8.5-10.1); Chloride 110 mmol/L (98-107); Creatinine, Serum 1.47 mg/dL (0.55-1.02); EST Glomerular Filtration Rate 36 mL/min (>60); Est Glom Filt Rate - Afr Amer 44 mL/min (>60); Glucose 220 mg/dL (74-106); Potassium 4.8 mmol/L (3.5-5.1); Sodium Level 140 mmol/L (136-145)
== END ==
PROVIDERS: Family Provider Family Medicine; PCP Family Medicine; Referring Provider Internal Medicine Endocrinology, Diabetes & Metabolism; Visit Provider Internal Medicine Endocrinology, Diabetes & Metabolism
DX: N18.3 Chronic kidney disease, stage 3 (moderate) (principal); E11.65 Type 2 diabetes mellitus with hyperglycemia
CPT/HCPCS: 36415; 80048; 83036; 84450; 84460

== ENCOUNTER → 2018-07-15 | Outpatient (CLI) | payer MEDICARE, SELFPAY ==
[2018-07-15 16:15] LABS: Anion Gap 10 (5-15); BUN 29 mg/dL (7-18); BUN/Creat Ratio 18.2 RATIO (10-20); Calcium,Total 8.2 mg/dL (8.5-10.1); Chloride 108 mmol/L (98-107); Creatinine, Serum 1.59 mg/dL (0.55-1.02); EST Glomerular Filtration Rate 33 mL/min (>60); Est Glom Filt Rate - Afr Amer 40 mL/min (>60); Glucose 253 mg/dL (74-106); Potassium 5.3 mmol/L (3.5-5.1); Sodium Level 138 mmol/L (136-145)
== END | disposition home or self-care (01) ==
PROVIDERS: Family Provider Family Medicine; PCP Family Medicine; Referring Provider Internal Medicine Endocrinology, Diabetes & Metabolism; Visit Provider Internal Medicine Endocrinology, Diabetes & Metabolism
DX: E11.65 Type 2 diabetes mellitus with hyperglycemia (principal)
CPT/HCPCS: 36415; 80048

== ENCOUNTER → 2018-07-28 | Outpatient (CLI) | payer MEDICARE, SELFPAY ==
[2018-07-28 14:55] LABS: Absolute Lymphocyte Count 2.77 X10^3/ul (0.83-4.51); Basophil# 0.03 X10^3/uL; Basophil% 0.3 % (0-1); Eosinophil# 0.33 X10^3/uL; Eosinophils% 3.7 % (0-5); Hematocrit 38.6 % (37-47); Hemoglobin 12.4 g/dl (12.0-15.0); Lymphocyte # 2.77 X10^3/ul (4.0); Lymphocyte % 31.2 % (19-41); Mean Corp Hgb Conc 32.1 g/gl (32-36); Mean Corpuscular Hgb 29.3 pg (27.0-32.0); Mean Corpuscular Volume 91.3 fL (81-99); Monocyte# 0.72 X10^3/uL; Monocyte% 8.1 % (0-10); Neutrophil % 56.5 % (47-70); Platelet Count 197 K/mm3 (150-450); RBC Distribution Width CV 13.2 % (11.6-14.6); RBC Distribution Width SD 43.2 fl (35.1-43.9); Red Blood Count 4.23 M/mm3 (4.2-5.4); White Blood Count 8.9 K/mm3 (4.4-11.0)
[2018-07-28 14:57] LABS: POSITIVE COUNT NO; POSITIVE DIFFERENTIAL NO; POSITIVE MORPHOLOGY NO
[2018-07-28 15:40] LABS: Anion Gap 12 (5-15); BUN 25 mg/dL (7-18); BUN/Creat Ratio 14.9 RATIO (10-20); Calcium,Total 8.5 mg/dL (8.5-10.1); Chloride 103 mmol/L (98-107); Creatinine, Serum 1.68 mg/dL (0.55-1.02); EST Glomerular Filtration Rate 31 mL/min (>60); Est Glom Filt Rate - Afr Amer 38 mL/min (>60); Glucose 487 mg/dL (74-106); Potassium 4.8 mmol/L (3.5-5.1); Sodium Level 135 mmol/L (136-145)
== END | disposition home or self-care (01) ==
LOC: LAB 14:16
PROVIDERS: Physician Assistant Medical; Family Provider Family Medicine; PCP Family Medicine; Referring Provider Internal Medicine Cardiovascular Disease; Visit Provider Internal Medicine Cardiovascular Disease
DX: R06.09 Other forms of dyspnea (principal)
CPT/HCPCS: 36415; 80048; 83880; 85025

== ENCOUNTER → 2018-08-25 | Outpatient (CLI) | payer MEDICARE, SELFPAY ==
[2018-08-10 13:42] VITALS: BMI 27.4
--- NOTE | 2018-08-25 12:18 | STRESSREP_ITS ---
Stress Test Report Date: 08-25-18 Procedure: Pharmacologic stress nuclear imaging study Indications: Chest pain; CAD; CABG Consent: Per the patient Procedure: The patient underwent pharmacologic (Regadenoson) evaluation with a peak heart rate of 85 beats per minute (60 %predicted maximal heart rate) and a peak blood pressure of 168/72 mmHg. The baseline ECG demonstrated normal sinus rhythm; nonspecific ST segment abnormality. The peak pharmacologic ECG demonstrated no obvious ECG changes. There were no cardiac dysrhythmias pretest, during pharmacologic infusion, or recovery. There was no complaint of chest discomfort during pharmacologic infusion or recovery. The examination was discontinued secondary to completion of protocol. Impression: 1. Pharmacologic (Regadenoson) evaluation 2. Peak pharmacologic ECG with no obvious ECG changes. 3. There were no cardiac dysrhythmias pretest, during pharmacologic infusion, or recovery. 4. Nuclear images pending Myocardial perfusion imaging study: Technique: The patient was injected with 11.6 millicuries of technetium 99m Cardiolite and subsequently rest SPECT Cardiolite nuclear imaging was obtained in the horizontal long, vertical long, and short axis views. The patient underwent pharmacologic (Regadenoson) evaluation with a peak heart rate of 85 beats per minute (60 % percent predicted maximal heart rate) and a peak blood pressure of 168/72 mmHg. The patient was injected with 33.8 millicuries of technetium 99m Cardiolite and subsequently stress SPECT Cardiolite nuclear imaging was obtained in the horizontal long, vertical long, and short axis views. A gated Cardiolite study at peak stress was obtained. Interpretation: Rest and stress SPECT Cardiolite nuclear imaging status post realignment, normalization, and attenuation correction demonstrate relative uniform tracer uptake and myocardial perfusion appearing within normal limits. There is end systolic thickening and brightening. The gated Cardiolite study demonstrates myocardial thickening and inward wall motion. The reported LVEF 86 %. Impression: 1. Rest and stress SPECT Cardiolite nuclear imaging demonstrate relative uniform tracer uptake and myocardial perfusion appearing within normal limits. 2. The gated Cardiolite study reports an LVEF of 86 %. This note was generated with [employer] software. It may contain incorrect words, spelling, and punctuation that were not noted in checking the note before signing.
== END | disposition home or self-care (01) ==
LOC: CVS 06:48
PROVIDERS: Family Provider Family Medicine; PCP Family Medicine; Referring Provider Physician Assistant Medical; Visit Provider Physician Assistant Medical
DX: I25.10 Atherosclerotic heart disease of native coronary artery without angina pectoris (principal); R06.00 Dyspnea, unspecified; E78.5 Hyperlipidemia, unspecified; I12.9 Hypertensive chronic kidney disease with stage 1 through stage 4 chronic kidney disease, or unspecified chronic kidney disease; N18.3 Chronic kidney disease, stage 3 (moderate)
CPT/HCPCS: 78452; 93017; A9500; A4216; J2785

== ENCOUNTER → 2018-09-04 10:59 | Outpatient (CLI) | payer MEDICARE, SELFPAY ==
[2018-08-10 13:42] VITALS: BMI 27.4
[2018-09-04 12:23] LABS: Absolute Neutrophil Count 5.5 X10^3/uL (2.0-7.7); Basophil# 0.07 X10^3/uL; Basophil% 0.7 % (0-1); Eosinophil# 0.43 X10^3/uL; Eosinophils% 4.5 % (0-5); Hematocrit 41.4 % (37-47); Hemoglobin 13.4 g/dL (12.0-15.0); Lymphocyte % 29.2 % (19-41); Mean Corp Hgb Conc 32.4 g/dL (32-36); Mean Corpuscular Hgb 30.5 pg (27.0-32.0); Mean Corpuscular Volume 94.1 fL (81-99); Mean Platelet Vol. 12.2 fl (6.2-12.0); Monocyte% 8.3 % (0-10); NRBC Flagged by Analyzer 0 % (0-5); Neutrophil # 5.45 X10^3/uL (2.7-7.7); Neutrophil % 56.9 % (47-70); Platelet Count 230 K/mm3 (150-450); RBC Distribution Width CV 13.2 % (11.6-14.6); RBC Distribution Width SD 46.1 fl (35.1-43.9); White Blood Count 9.6 K/mm3 (4.4-11.0)
[2018-09-04 13:00] LABS: Anion Gap 11 (5-15); BUN 35 mg/dL (7-18); BUN/Creat Ratio 20.6 RATIO (10-20); Calcium,Total 9.2 mg/dL (8.5-10.1); Chloride 107 mmol/L (98-107); EST Glomerular Filtration Rate 31 mL/min (>60); Est Glom Filt Rate - Afr Amer 37 mL/min (>60); Glucose 116 mg/dL (74-106); Potassium 5.3 mmol/L (3.5-5.1); Sodium Level 139 mmol/L (136-145); T4 Free Direct 1.22 ng/dL (0.76-1.46); Thyroid Stim Hormone (TSH) 1.03 uIU/mL (0.358-3.74)
== END ==
PROVIDERS: Family Provider Family Medicine; PCP Family Medicine; Visit Provider Family Medicine
DX: N18.3 Chronic kidney disease, stage 3 (moderate) (principal); E03.9 Hypothyroidism, unspecified
CPT/HCPCS: 36415; 80048; 84439; 84443; 85025

== ENCOUNTER → 2018-09-14 16:34 | Outpatient (CLI) | payer MEDICARE, SELFPAY ==
[2018-09-08 13:12] VITALS: BMI 29.0
--- NOTE | 2018-09-14 16:36 | CT_ITS ---
STUDY: CTA CHEST REASON FOR EXAM: Female, 83 years old. Lung nodule and shortness of breath RADIATION DOSAGE (If Supplied By Facility): CTDIvol = ( 16.36 ) mGy, DLP = ( 426.24 ) mGycm TECHNIQUE: The examination was performed with the intravenous administration of 75ml IV Isovue 370. Post-processing of the angiographic images was performed, with multiplanar reformation and 3D reconstruction. Individualized dose optimization techniques were used for this CT. COMPARISON: CTA chest July 10, 2016 FINDINGS: Post CABG changes are present. Normal enhancement of the main pulmonary artery and right and left pulmonary arteries. Normal enhancement of the bilateral peripheral pulmonary arteries. There is no demonstrated pulmonary embolism. Normal thoracic aorta and visualized great vessels. There is no demonstrated aortic dissection. Normal heart and pericardium. Coronary artery calcifications are present. Normal mediastinum. Normal hilar regions. Normal visualized trachea and bronchi. The lungs are well expanded. Bilateral granulomata are present. Areas of scarring and atelectasis are present bilaterally. There is a right middle lobe 3 mm nodule, series 2 image 114. There is no consolidation. Normal pleura. Normal chest wall structures. Normal osseous structures. Normal visualized upper abdomen. CT/CTA Chest W/WO Contrast IMPRESSION: No evidence of pulmonary embolism. Right middle lobe 3 mm nodule. Bilateral granulomata. Scattered areas of scarring/atelectasis. Coronary artery calcifications. Electronically Signed: Gurdeep Mitchell, at 18:00 EDT Tel , Service support ,
== END ==
PROVIDERS: Family Provider Family Medicine; PCP Family Medicine; Referring Provider Physician Assistant Medical; Visit Provider Physician Assistant Medical
DX: R91.1 Solitary pulmonary nodule (principal)
CPT/HCPCS: 71275; Q9967; A4216

== ENCOUNTER → 2018-09-15 09:30 | Outpatient (CLI) | payer MEDICARE, SELFPAY ==
[2018-09-08 13:12] VITALS: BMI 29.0
--- NOTE | 2018-09-08 14:45 | RAD_ITS ---
STUDY: X-RAY CHEST REASON FOR EXAM: Female, 83 years old. Shortness of breath coughing chest pain TECHNIQUE: PA and lateral views of the chest. COMPARISON: May 08, 2017, April 21, 2016 chest x-ray FINDINGS: The periphery of the right lung there is a small focus of density measuring 8.4 x 6.6 mm. On April 21, 2016 there was linear density or thickening of the right minor fissure. There is a stable left apical nodular density measuring 2 mm. Interstitial markings are mildly prominent but similar to the prior study. There is no demonstrated pleural abnormality. There is mild cardiac enlargement. Tenotomy wires are seen midline. There is a thoracic spine catheter demonstrated the tip is at T9. There is a partially visualized spinal fusion. The bones are osteopenic. Normal mediastinum and eddie. Normal visualized pulmonary arteries. Normal visualized aortic arch and descending thoracic aorta. There is slight loss of height at the level of T7. Normal visualized ribs, clavicles, and shoulders. There is no demonstrated abnormality of the visualized soft tissue structures of the upper abdomen. RAD/Chest PA and Lateral IMPRESSION: Peripheral nodule measuring 8.4 x 6.6 mm within the right lung not seen on prior studies for which further evaluation is suggested with CT scan of the chest without contrast when appropriate. Chronic appearing interstitial markings. No visualized focal infiltrate. Status post sternotomy mild cardiomegaly thoracic spine catheter. Electronically Signed: Trisha Uriarte MD at 16:37 EDT Tel , Service support ,
--- OUTSIDE RECORDS SUMMARY | 2018-10-21 23:01 | XMS RPT_ITS | CCD ---
:1935 External Reference #:[id number] [facility] Care Team Providers Name Role Phone Luigi HENDRICKS, L Unavailable Maribeth Jacobo Unavailable Unavailable Malorie Uriostegui MD Unavailable Hollie Costa Unavailable Unavailable Luigi HENDRICKS, L Unavailable Ethan Robertson Unavailable Unavailable Hollie Costa Unavailable Unavailable Coco HENDRICKS, Ortiz Unavailable Unavailable Malorie Uriostegui MD Unavailable Maribeth Jacobo Unavailable Unavailable Allergies Reported Allergen Reaction(s) Severity Date of Onset Location natural latex rash Critical, Critical 02-16-2015 - [facility] rubber ([id number]) Translations: [ LATEX] NKDA Translations: Mild 08-25-2014 - - [facility] [ NKDA] 02-16-2015 - ([id number]) Medications Medication Name Sig Date Prescriber Location acetaminophen / TYLENOL PM EXTRA 07-26-2016 [facility] diphenhydrAMINE STRENGTH 500-25 [facility] Group ([id number]) TABS as directed DIPHENHYDRAMINE-APAP (SLEEP) [id number] Galileo Uriostegui MD TYLENOL PM EXTRA STRENGTH 500-25 MG 07-26-2016 [facility] TABS as directed (446 06) DIPHENHYDRAMINE-APAP (SLEEP) [id number] Galileo Uriostegui MD TYLENOL PM EXTRA STRENGTH 500-25 MG 07-26-2016 [facility] TABS as directed (446 91) DIPHENHYDRAMINE-APAP (SLEEP) [id number] Galileo Uriostegui MD TYLENOL PM EXTRA STRENGTH 500-25 MG 07-26-2016 [facility] TABS as directed (440 73) DIPHENHYDRAMINE-APAP (SLEEP) [id number] Galileo Uriostegui MD TYLENOL PM EXTRA STRENGTH 500-25 MG 07-26-2016 [facility] TABS as directed (446 91) DIPHENHYDRAMINE-APAP (SLEEP) [id number] Galileo Uriotsegui MD TYLENOL PM EXTRA STRENGTH 500-25 MG 01-31-2016 - 05-07-2016 [facility] TABS as directed (446 91) DIPHENHYDRAMINE-APAP (SLEEP) [id number] Galileo Uriostegui MD TYLENOL PM EXTRA STRENGTH 500-25 MG 01-31-201605-07-2016 [facility] TABS As needed (93933) DIPHENHYDRAMINE-APAP (SLEEP) [id number] Emerald Roman PA-C TYLENOL PM EXTRA STRENGTH 500-25 MG 01-31-2016 [facility] TABS As needed (87156 ) DIPHENHYDRAMINE-APAP (SLEEP) [id number] Galileo Uriostegui MD TYLENOL PM EXTRA STRENGTH 500-25 MG 01-31-2016 [facility] TABS As needed (16036 ) DIPHENHYDRAMINE-APAP (SLEEP) [id number] Galileo Uriostegui MD TYLENOL PM EXTRA STRENGTH 500-25 MG 01-31-201605-07-2016 [facility] TABS As needed (31216) DIPHENHYDRAMINE-APAP (SLEEP) [id number] Emerald Roman PA-C TYLENOL PM EXTRA STRENGTH 500-25 MG 01-31-2016 [facility] TABS As needed (11452 ) DIPHENHYDRAMINE-APAP (SLEEP) [id number] Galileo Uriostegui MD TYLENOL PM EXTRA STRENGTH 500-25 MG 01-31-2016 - 05-07-2016 [facility] TABS As needed (40669) DIPHENHYDRAMINE-APAP (SLEEP) [id number] Emerald Roman PA-C TYLENOL PM EXTRA STRENGTH 500-25 MG 01-31-201605-07-2016 [facility] TABS As needed (25101) DIPHENHYDRAMINE-APAP (SLEEP) [id number] Emerald Roman PA-C TYLENOL PM EXTRA STRENGTH 500-25 MG 01-31-2016 [facility] TABS As needed (58331 ) DIPHENHYDRAMINE-APAP (SLEEP) [id number] Galileo Uriostegui MD TYLENOL PM EXTRA STRENGTH 500-25 MG 01-31-2016 [facility] TABS As needed (60472 ) DIPHENHYDRAMINE-APAP (SLEEP) [id number] Galileo Uriostegui MD TYLENOL PM EXTRA STRENGTH 500-25 MG 01-31-2016 - 05-07-2016 [facility] TABS As needed (98152) DIPHENHYDRAMINE-APAP (SLEEP) [id number] Emerald Roman PA-C TYLENOL PM EXTRA STRENGTH 500-25 MG 01-31-2016 - 05-07-2016 [facility] TABS As needed (60031) DIPHENHYDRAMINE-APAP (SLEEP) [id number] Emerald Roman PA-C TYLENOL PM EXTRA STRENGTH 500-25 MG 01-31-2016 [facility] TABS As needed (46914 ) DIPHENHYDRAMINE-APAP (SLEEP) [id number] Galileo Uriostegui MD TYLENOL PM EXTRA STRENGTH 500-25 MG 01-31-2016 - 05-07-2016 [facility] TABS As needed (57209) DIPHENHYDRAMINE-APAP (SLEEP) 75341843291 Emerald Roman PA-C TYLENOL PM EXTRA STRENGTH 500-25 MG 01-31-2016 [facility] TABS As needed (28442 ) DIPHENHYDRAMINE-APAP (SLEEP) [id number] Galileo Uriostegui MD TYLENOL PM EXTRA STRENGTH 500-25 MG 01-31-2016 - 05-07-2016 [facility] TABS As needed (62237) DIPHENHYDRAMINE-APAP (SLEEP) 24022170092 Emerald Roman PA-C TYLENOL PM EXTRA STRENGTH 500-25 MG 01-31-2016 [facility] TABS As needed (73608 ) DIPHENHYDRAMINE-APAP (SLEEP) [id number] Galileo Uriostegui MD amiodarone AMIODARONE HCL 200 MG TABS 05-01-2016 - 05-07-2016 [facility] One tablet by mouth twice (4 4691) daily AMIODARONE HCL 86268402120 Emerald Meyers RN amitriptyline AMITRIPTYLINE HCL 10 MG 08-25-2014 - 01-31-2016 [facility] TABS 2 tablets by mouth at ( 66980) bedtime AMITRIPTYLINE HCL 22522979640 Galileo Uriostegui MD amLODIPine NORVASC 10 MG TABS One 05-21-2015 - 05-01-2016 [facility] tablet by mouth daily (16053 ) AMLODIPINE BESYLATE 43883156783 Toyin Navarrete RN ascorbic acid VITAMIN C 1000 MG TABS One 01-31-2016 - 05-07-2016 [facility] tablet by mouth daily (19666 ) ASCORBIC ACID 41502351398 Galileo Uriostegui MD aspirin ASPIRIN EC 81 MG TBEC One 01-31-2016 [facility] tablet by mouth daily (75530 ) ASPIRIN 50974203393 Galileo Uriostegui MD ASPIRIN 81 MG TABS One tablet by 08-23-2014 - 05-24-2015 [facility] (49885) mouth daily ASPIRIN 06984665282 Vale Pardo RN ASPIRIN 81 MG TABS One tablet by 08-23-2014 - 05-24-2015 [facility] (01503) mouth daily ASPIRIN 63122952002 Vale Pardo RN atorvastatin LIPITOR 20 MG TABS One tablet by 08-23-2014 [facility] (99443) mouth daily ATORVASTATIN CALCIUM 07463618893 Vale Pardo RN ATORVASTATIN CALCIUM 40 MG TABS One tablet 08-23-2014 [facility] (75734) by mouth daily ATORVASTATIN CALCIUM 56825286929 Emerald Meyers RN chlorthalidone CHLORTHALIDONE 25 MG 02-16-2015 - [facility] TABS One tablet by 05-22-2015 Group (44 691) mouth daily (STOP) CHLORTHALIDONE 42014552137 Toyin Navarrete RN clopidogrel CLOPIDOGREL BISULFATE 02-16-2015 - [facility] 75 MG TABS One tablet 05-01-2016 Group (10817) by mouth daily CLOPIDOGREL BISULFATE 98083862290 Emerald Meyers RN diphenhydrAMINE / ADVIL PM 200-25 MG CAPS 05-23-2016 - [facility] ibuprofen Two tablets by mouth 05-23-2016 Group ( 23627) every night IBUPROFEN-DIPHENHYDRAMI NE HCL 22989614914 Vale Pardo RN ADVIL PM 200-25 MG CAPS Two tablets by 05-23-2016 [facility] mouth every night (44 691) IBUPROFEN-DIPHENHYDRAMINE HCL 73001215815 Vale Pardo RN ADVIL PM 200-25 MG CAPS Two tablets by 05-23-2016 - 05-23-2016 [facility] mouth every night (11376) IBUPROFEN-DIPHENHYDRAMINE HCL 58190414104 Vale Pardo RN ADVIL PM 200-25 MG CAPS Two tablets by 05-23-2016 [facility] mouth every night (44 691) IBUPROFEN-DIPHENHYDRAMINE HCL 64757060714 Vale Pardo RN ADVIL PM 200-25 MG CAPS Two tablets by 05-23-2016 - 05-23-2016 [facility] mouth every night (27505) IBUPROFEN-DIPHENHYDRAMINE HCL 97935582438 Vale Pardo RN ADVIL PM 200-25 MG CAPS Two tablets by 05-23-2016 [facility] mouth every night (44 691) IBUPROFEN-DIPHENHYDRAMINE HCL 30381461527 Vale Pardo RN ADVIL PM 200-25 MG CAPS Two tablets by 05-23-2016 - 05-23-2016 [facility] mouth every night (80343) IBUPROFEN-DIPHENHYDRAMINE HCL 97003239561 Vale Pardo RN ADVIL PM 200-25 MG CAPS Two tablets by 05-23-2016 [facility] mouth every night (44 691) IBUPROFEN-DIPHENHYDRAMINE HCL 35607440476 Vale Pardo RN ADVIL PM 200-25 MG CAPS Two tablets by 05-23-2016 - 05-23-2016 [facility] mouth every night (29406) IBUPROFEN-DIPHENHYDRAMINE HCL 36767539816 Vale Pardo RN ADVIL PM 200-25 MG CAPS Two tablets by 05-23-2016 - 05-23-2016 [facility] mouth every night (17529) IBUPROFEN-DIPHENHYDRAMINE HCL 96876200124 Vale Pardo RN ADVIL PM 200-25 MG CAPS Two tablets by 05-23-2016 [facility] mouth every night (44 691) IBUPROFEN-DIPHENHYDRAMINE HCL 18841427334 Vale Pardo RN ADVIL PM 200-25 MG CAPS Two tablets by 05-23-2016 - 05-23-2016 [facility] mouth every night (36595) IBUPROFEN-DIPHENHYDRAMINE HCL 13966625683 Vale Pardo RN ADVIL PM 200-25 MG CAPS Two tablets by 05-23-2016 [facility] mouth every night (44 691) IBUPROFEN-DIPHENHYDRAMINE HCL 53500889202 Vale Pardo RN ADVIL PM 200-25 MG CAPS Two tablets by 05-23-2016 - 05-23-2016 [facility] mouth every night (88892) IBUPROFEN-DIPHENHYDRAMINE HCL 50099305317 Vale Pardo RN ADVIL PM 200-25 MG CAPS Two tablets by 05-23-2016 [facility] mouth every night (44 691) IBUPROFEN-DIPHENHYDRAMINE HCL 80177705622 Vale Pardo RN ADVIL PM 200-25 MG CAPS Two tablets by 05-23-2016 - 05-23-2016 [facility] mouth every night (70522) IBUPROFEN-DIPHENHYDRAMINE HCL 13527078091 Vale Pardo RN ADVIL PM 200-25 MG CAPS Two tablets by 05-23-2016 [facility] mouth every night (44 691) IBUPROFEN-DIPHENHYDRAMINE HCL 08615968474 Vale Pardo RN ergocalciferol VITAMIN D (ERGOCALCIFEROL) 03-15-2016 - [facility] 67786 UNIT CAPS One tablet 05-01-2016 [place] (42711) by mouth daily ERGOCALCIFEROL 23400234235 Emerald Meyers RN VITAMIN D (ERGOCALCIFEROL) 49120 03-15-2016 - 05-01-2016 [facility] UNIT CAPS One tablet by mouth (4 4691) daily ERGOCALCIFEROL 82660282900 Emerald Meyers RN ERGOCALCIFEROL 65260 UNIT CAPS 08-23-2014 [facility] tablet by mouth twice a week (44 691) ERGOCALCIFEROL 73813259129 Galileo Uriostegui MD ERGOCALCIFEROL 63297 UNIT CAPS 1 08-23-2014 [facility] tablet by mouth weekly (44578) ERGOCALCIFEROL 05544683647 Vale Pardo RN famotidine PEPCID 20 MG TABS One 02-16-2015 - 05-22-2015 [facility] tablet by mouth twice (48195 ) daily FAMOTIDINE 30309601448 Toyin Navarrete RN furosemide FUROSEMIDE 20 MG TABS One 05-01-2016 - 05-23-2016 [facility] tablet by mouth daily (16132 ) FUROSEMIDE 79699838294 Emerald Meyers RN gabapentin GABAPENTIN 300 MG CAPS One 05-23-2016 [facility] tablet by mouth every (68607 ) night GABAPENTIN 07702148624 Vale Pardo RN GABAPENTIN 300 MG CAPS One 08-23-2014 - 05-07-2016 [facility] (77256) tablet by mouth every night GABAPENTIN 27509302726 Vale Pardo RN NEURONTIN 300 MG CAPS One tablet 08-23-2014 [facility] (87067) by mouth twice a week GABAPENTIN 68107350577 Vale Pardo RN NEURONTIN 300 MG CAPS Three 08-23-[address] [facility] (63362) tablets by mouth three times a day GABAPENTIN 84240775044 Galileo Uriostegui MD NEURONTIN 300 MG CAPS One tablet 08-23-2014 [facility] (65323) by mouth twice a week GABAPENTIN 38810245580 Vale Pardo RN NEURONTIN 300 MG CAPS Three 08-23-[address] [facility] (31785) tablets by mouth three times a day GABAPENTIN 20436150014 Galileo Uriostegui MD GABAPENTIN 400 MG CAPS One 08-23-2014 [facility] (96602) tablet by mouth three times daily GABAPENTIN 72924864497 Galileo Uriostegui MD glimepiride AMARYL 4 MG TABS One 08-23-2014 - 01-31-2016 [facility] tablet by mouth daily with ( 12302) breakfast GLIMEPIRIDE 14648656586 Galileo Uriostegui MD hydrALAZINE HYDRALAZINE HCL 50 MG TABS 05-23-2016 [facility] One tablet by mouth three (4 4691) times daily HYDRALAZINE HCL 71398447867 Vale Pardo RN HYDRALAZINE HCL 50 MG TABS One 05-21-2015 - 05-01-2016 [facility] (89923) tablet by mouth three times daily HYDRALAZINE HCL 54603578272 Emerald Meyers RN hydroCHLOROthiazide HYDROCHLOROTHIAZIDE 50 MG 08-23-2014 - [facility] TABS One tablet by mouth 05-01-2016 [facility] (47475) daily HYDROCHLOROTHIAZIDE 52813018546 Emerald Meyers RN HYDROCHLOROTHIAZIDE 25 MG TABS One tablet by 08-23-2014 [facility] (99330) mouth daily HYDROCHLOROTHIAZIDE 45931785216 Vale Pardo RN insulin glargine LANTUS SOLOSTAR 100 UNIT/ML 08-23-2014 [facility] SOPN as directed (13547) INSULIN GLARGINE 58301047579 Vale Pardo RN LANTUS SOLOSTAR 100 UNIT/ML SOPN as directed 08-23-2014 [facility] (55071) INSULIN GLARGINE 23796295362 Vale Pardo RN LANTUS SOLOSTAR 100 UNIT/ML SOPN as directed 08-23-2014 [facility] (16624) INSULIN GLARGINE 23168319295 Vale Pardo RN LANTUS SOLOSTAR 100 UNIT/ML SOPN as directed 08-23-2014 [facility] (63026) INSULIN GLARGINE 90768712213 Vale Pardo RN LANTUS SOLOSTAR 100 UNIT/ML SOPN as directed 08-23-2014 [facility] (37809) INSULIN GLARGINE 54645883625 Vale Pardo RN LANTUS SOLOSTAR 100 UNIT/ML SOPN as directed 08-23-2014 [facility] (08879) INSULIN GLARGINE 17001005834 Vale Pardo RN LANTUS SOLOSTAR 100 UNIT/ML SOPN as directed 08-23-2014 [facility] (44940) INSULIN GLARGINE 25252768409 Vale Pardo, RN LANTUS SOLOSTAR 100 UNIT/ML SOPN as directed 08-23-2014 [facility] (84802) INSULIN GLARGINE 21610862759 Vale Pardo, RN LANTUS SOLOSTAR 100 UNIT/ML SOPN as directed 08-23-2014 [facility] (20687) INSULIN GLARGINE 94637985147 Vale Pardo, RN LANTUS SOLOSTAR 100 UNIT/ML SOPN as directed 08-23-2014 [facility] (43959) INSULIN GLARGINE 92908609626 Vale Pardo RN insulin lispro HUMALOG 100 UNIT/ML SOLN as 08-25-2014 [facility] directed INSULIN (01508) LISPRO (HUMAN) [id number] Galileo Uriostegui MD HUMALOG 100 UNIT/ML SOLN as directed 08-25-2014 [facility] (91772) INSULIN LISPRO (HUMAN) 93415359029 Galileo Uriostegui MD HUMALOG 100 UNIT/ML SOLN as directed 08-25-2014 [facility] (37151) INSULIN LISPRO (HUMAN) 67884228383 Galileo Uriostegui MD HUMALOG 100 UNIT/ML SOLN as directed 08-25-2014 [facility] (91681) INSULIN LISPRO (HUMAN) [id number] Galileo Uriostegui MD HUMALOG 100 UNIT/ML SOLN as directed 08-25-2014 [facility] (25303) INSULIN LISPRO (HUMAN) [id number] Galileo Uriostegui MD HUMALOG 100 UNIT/ML SOLN as directed 08-25-2014 [facility] (63509) INSULIN LISPRO (HUMAN) [id number] Galileo Uriostegui MD HUMALOG 100 UNIT/ML SOLN as directed 08-25-2014 [facility] (39583) INSULIN LISPRO (HUMAN) [id number] Galileo Uriostegui MD HUMALOG 100 UNIT/ML SOLN as directed 08-25-2014 [facility] (47434) INSULIN LISPRO (HUMAN) 06248352794 Galileo Uriostegui MD HUMALOG 100 UNIT/ML SOLN as directed 08-25-2014 [facility] (39269) INSULIN LISPRO (HUMAN) 14023490928 Galileo Uriostegui MD HUMALOG 100 UNIT/ML SOLN as directed 08-25-2014 [facility] (55858) INSULIN LISPRO (HUMAN) [id number] Galileo Uriostegui MD insulin, aspart, human NOVOLOG FLEXPEN 100 05-22-2015 [facility] UNIT/ML SOLN as directed (44 691) INSULIN ASPART Toyin Navarrete RN NOVOLOG FLEXPEN 100 UNIT/ML 05-22-2015 - 01-31-2016 [facility] (72887) SOLN as directed INSULIN ASPART Galileo Uriostegui MD NOVOLOG FLEXPEN 100 UNIT/ML 05-22-[address] [facility] (43032) SOLN as directed INSULIN ASPART Toyin Navarrete RN NOVOLOG FLEXPEN 100 UNIT/ML 05-22-2015 - 01-31-2016 [facility] (16867) SOLN as directed INSULIN ASPART Galileo Uriostegui MD NOVOLOG FLEXPEN 100 UNIT/ML 05-22-2015 - 01-31-2016 [facility] (35950) SOLN as directed INSULIN ASPART Galileo Uriostegui MD NOVOLOG FLEXPEN 100 UNIT/ML 05-22-[address] [facility] (56340) SOLN as directed INSULIN ASPART Toyin Navarrete RN NOVOLOG FLEXPEN 100 UNIT/ML 05-22-2015 - 01-31-2016 [facility] (59517) SOLN as directed INSULIN ASPART Galileo Uriostegui MD NOVOLOG FLEXPEN 100 UNIT/ML 05-22-[address] [facility] (38903) SOLN as directed INSULIN ASPART Toyin Navarrete RN NOVOLOG FLEXPEN 100 UNIT/ML 05-22-[address] [facility] (02639) SOLN as directed INSULIN ASPART Toyin Navarrete RN NOVOLOG FLEXPEN 100 UNIT/ML 05-22-2015 - 01-31-2016 [facility] (24350) SOLN as directed INSULIN ASPART Galileo Uriostegui MD NOVOLOG FLEXPEN 100 UNIT/ML 05-22-[address] [facility] (70924) SOLN as directed INSULIN ASPART Toyin Navarrete RN NOVOLOG FLEXPEN 100 UNIT/ML 05-22-2015 - 01-31-2016 [facility] (78594) SOLN as directed INSULIN ASPART Galileo Uriostegui MD NOVOLOG FLEXPEN 100 UNIT/ML 05-22-2015 - 01-31-2016 [facility] (69699) SOLN as directed INSULIN ASPART Galileo Uriostegui MD NOVOLOG FLEXPEN 100 UNIT/ML 05-22-[address] [facility] (85689) SOLN as directed INSULIN ASPART Toyin Navarrete RN NOVOLOG FLEXPEN 100 UNIT/ML 05-22-2015 - 01-31-2016 [facility] (43271) SOLN as directed INSULIN ASPART Galileo Uriostegui MD NOVOLOG FLEXPEN 100 UNIT/ML 05-22-[address] [facility] (38421) SOLN as directed INSULIN ASPART Toyin Navarrete RN NOVOLOG FLEXPEN 100 UNIT/ML 05-22-[address] [facility] (06708) SOLN as directed INSULIN ASPART Toyin Navarrete RN NOVOLOG FLEXPEN 100 UNIT/ML 05-22-2015 - 01-31-2016 [facility] (52279) SOLN as directed INSULIN ASPART Galileo Uriostegui MD NOVOLOG FLEXPEN 100 UNIT/ML 05-22-[address] [facility] (03394) SOLN as directed INSULIN ASPART Toyin Navarrete RN NOVOLOG FLEXPEN 100 UNIT/ML 05-22-2015 - 01-30-2015 [facility] (21512) SOLN as directed INSULIN ASPART Galileo Uriostegui MD NOVOLOG FLEXPEN 100 UNIT/ML 05-22-[address] [facility] (80128) SOLN as directed INSULIN ASPART Toyin Navarrete RN NOVOLOG FLEXPEN 100 UNIT/ML 05-22-2015 - 01-30-2015 [facility] (85971) SOLN as directed INSULIN ASPART Galileo Uriostegui MD NOVOLOG FLEXPEN 100 UNIT/ML 08-25-[address] [facility] (42374) SOLN as directed INSULIN ASPART Emerald Meyers RN NOVOLOG FLEXPEN 100 UNIT/ML 08-25-[address] [facility] (33168) SOLN as directed INSULIN ASPART Emerald Meyers RN NOVOLOG FLEXPEN 100 UNIT/ML 08-25-[address] [facility] (14596) SOLN as directed INSULIN ASPART Emerald Meyers RN NOVOLOG FLEXPEN 100 UNIT/ML 08-25-[address] [facility] (59784) SOLN as directed INSULIN ASPART Emerald Meyers RN NOVOLOG FLEXPEN 100 UNIT/ML 08-25-[address] [facility] (16543) SOLN as directed INSULIN ASPART Emerald Meyers RN NOVOLOG FLEXPEN 100 UNIT/ML 08-25-[address] [facility] (68548) SOLN as directed INSULIN ASPART Emerald Meyers RN NOVOLOG FLEXPEN 100 UNIT/ML 08-25-[address] [facility] (12535) SOLN as directed INSULIN ASPART Emerald Meyers RN NOVOLOG FLEXPEN 100 UNIT/ML 08-25-[address] [facility] (30075) SOLN as directed INSULIN ASPART Emerald Meyers RN NOVOLOG FLEXPEN 100 UNIT/ML 08-25-[address] [facility] (00801) SOLN as directed INSULIN ASPART Emerald Meyers RN NOVOLOG FLEXPEN 100 UNIT/ML 08-25-[address] [facility] (14259) SOLN as directed INSULIN ASPART Emerald Meyers RN NOVOLOG FLEXPEN 100 UNIT/ML 08-25-[address] [facility] (83145) SOLN as directed INSULIN ASPART Emerald Meyers RN isosorbide ISOSORBIDE MONONITRATE ER 30 MG 07-26-2016 [facility] (59436) [id number] One tablet by mouth daily ISOSORBIDE MONONITRATE 13788446448 Galileo Uriostegui MD ISOSORBIDE MONONITRATE ER 30 MG 02-27-2016 - 05-01-2016 [facility] (11018) [id number] One tablet by mouth daily ISOSORBIDE MONONITRATE 84953118996 Galileo Uriostegui MD lansoprazole LANSOPRAZOLE 30 MG CPDR One 05-23-2016 [facility] (88299) tablet by mouth daily LANSOPRAZOLE 18565926681 Vale Pardo RN PREVACID 30 MG CPDR One tablet 05-22-2015 - 05-01-2016 [facility] (81663) by mouth daily LANSOPRAZOLE 67915399780 Emerald Meyers RN PREVACID 30 MG CPDR One tablet 05-22-2015 - 05-01-2016 [facility] (80156) by mouth daily LANSOPRAZOLE 49919679923 Emerald Meyers RN lisinopril LISINOPRIL 10 MG TABS One tablet 05-01-2016 [facility] (82374) by mouth daily LISINOPRIL 84676570348 Emerald Meyers RN LISINOPRIL 20 MG TABS One half 08-23-2014 - 03-15-2016 [facility] (20848) tablet by mouth daily LISINOPRIL 74297725587 Emerald Meyers RN losartan LOSARTAN POTASSIUM 100 MG 02-22-2015 - 05-22-2015 [facility] TABS One tablet by mouth (44 691) daily LOSARTAN POTASSIUM 66776878513 Toyin Navarrete RN meloxicam MELOXICAM 7.5 MG TABS One 08-25-2014 - 05-22-2015 [facility] tablet by mouth daily (28211 ) MELOXICAM 58319616374 Galileo Uriostegui MD metFORMIN METFORMIN HCL 500 MG TABS 08-23-2014 - 05-01-2016 [facility] One tablet by mouth twice (4 4691) daily METFORMIN HCL 39625794029 Galileo Uriostegui MD METFORMIN HCL 1000 MG TABS One tablet by 08-23-2014 [facility] (07390) mouth twice daily METFORMIN HCL 38357380433 Toyin Navarrete RN METFORMIN HCL ER 500 MG [id number] Two 08-23-2014 [facility] (07991) tablets by mouth twice daily METFORMIN HCL 61371622888 Vale Pardo RN GLUCOPHAGE XR 500 MG [id number] Two tablets 08-23-2014 [facility] (27951) by mouth twice daily METFORMIN HCL 08837751265 Vale Pardo RN GLUCOPHAGE XR 500 MG [id number] Two tablets 08-23-2014 [facility] (81509) by mouth twice daily METFORMIN HCL 56755747715 Vale Pardo RN GLUCOPHAGE XR 500 MG [id number] Two tablets 08-23-2014 [facility] (61522) by mouth twice daily METFORMIN HCL 52261256407 Vale Pardo RN GLUCOPHAGE XR 500 MG [id number] Two tablets 08-23-2014 [facility] (30912) by mouth twice daily METFORMIN HCL 53765541918 Vale Pardo RN GLUCOPHAGE XR 500 MG [id number] Two tablets 08-23-2014 [facility] (60223) by mouth twice daily METFORMIN HCL 37224888612 Vale Pardo RN GLUCOPHAGE XR 500 MG [id number] Two tablets 08-23-2014 [facility] (71275) by mouth twice daily METFORMIN HCL 51469039127 Vale Pardo RN GLUCOPHAGE XR 500 MG [id number] Two tablets 08-23-2014 [facility] (86860) by mouth twice daily METFORMIN HCL 94119178663 Vale Pardo RN GLUCOPHAGE XR 500 MG [id number] Two tablets 08-23-2014 [facility] (21064) by mouth twice daily METFORMIN HCL 15360542299 Vale Pardo RN metoprolol METOPROLOL TARTRATE 02-27-2016 Vale Pardo RN [facility] MG TABS One tablet by (43333 ) mouth twice daily METOPROLOL TARTRATE 18532785154 Karyna Costa morphine MS CONTIN 100 MG CR-TABS 08-23-2014 [facility] One tablet by mouth (24171) every 8 hours MORPHINE SULFATE 39824790806 Galileo Uriostegui MD MS CONTIN 100 MG CR-TABS One tablet by mouth 08-23-2014 [facility] (33218) twice daily MORPHINE SULFATE 50166155573 Vale Pardo RN MS CONTIN 100 MG CR-TABS One tablet by mouth 08-23-2014 [facility] (28940) twice daily MORPHINE SULFATE 94406150588 Vale Pardo RN MS CONTIN 100 MG CR-TABS One tablet by mouth 08-23-2014 [facility] (26994) every 8 hours MORPHINE SULFATE 25401549732 Galileo Uriostegui MD MORPHINE SULFATE 30 MG TABS as directed 08-23-2014 [facility] (82804) MORPHINE SULFATE 11909094366 Emerald Meyers RN nitroglycerin NITROSTAT 0.4 MG SUBL 1 tablet 02-16-2015 [facility] under tongue every 5 min up to 3 (05820) X NITROGLYCERIN 45311954286 Nataliia Vasquez Nishant RN oxybutynin DITROPAN XL 10 MG [id number] One 05-22-2015 [facility] tablet by mouth daily (04577) OXYBUTYNIN CHLORIDE 97303877657 Toyin Navarrete RN DITROPAN XL 10 MG [id number] One tablet by 05-22-2015 [facility] (85823) mouth daily OXYBUTYNIN CHLORIDE 41855962122 Toyin Navarrete RN DITROPAN XL 10 MG [id number] One tablet by 05-22-2015 [facility] (81863) mouth daily OXYBUTYNIN CHLORIDE 65050868677 Toyin Navarrete RN DITROPAN XL 10 MG [id number] One tablet by 05-22-2015 [facility] (88567) mouth daily OXYBUTYNIN CHLORIDE 37461696594 Toyin Navarrete RN DITROPAN XL 10 MG [id number] One tablet by 05-22-2015 [facility] (94057) mouth daily OXYBUTYNIN CHLORIDE 38192039428 Toyin Navarrete RN DITROPAN XL 10 MG [id number] One tablet by 05-22-2015 [facility] (11773) mouth daily OXYBUTYNIN CHLORIDE 59212289938 Toyin Navarrete RN DITROPAN XL 10 MG [id number] One tablet by 05-22-2015 [facility] ([id number]) mouth daily OXYBUTYNIN CHLORIDE [id number] Toyin Navarrete RN DITROPAN XL 10 MG [id number] One tablet by 05-22-2015 [facility] ([id number]) mouth daily OXYBUTYNIN CHLORIDE [id number] Toyin Navarrete RN DITROPAN XL 10 MG [id number] One tablet by 05-22-2015 [facility] ([id number]) mouth daily OXYBUTYNIN CHLORIDE [id number] Toyin Navarrete RN oxyCODONE OXYCODONE HCL 15 MG TABS as needed 08-23-2014 [facility] ([id number]) OXYCODONE HCL [id number] Galileo Uriostegui MD OXYCODONE HCL 30 MG TABS One tablet by mouth 08-23-2014 [facility] ([id number]) three times daily as needed OXYCODONE HCL [id number] Vale Pardo RN OXYCODONE HCL 5 MG TABS as needed 08-23-2014 [facility] ([id number]) OXYCODONE HCL [id number] Emerald Meyers RN thyroxine LEVOTHYROXINE SODIUM 50 MCG TABS 08-23-2014 [facility] ([id number]) One tablet by mouth daily LEVOTHYROXINE SODIUM [id number] Toyin Navarrete RN LEVOTHYROXINE SODIUM 88 MCG TABS One tablet 08-23-2014 [facility] ([id number]) by mouth daily LEVOTHYROXINE SODIUM [id number] Vale Pardo RN LEVOTHYROXINE SODIUM 100 MCG TABS One tablet 08-23-2014 [facility] ([id number]) by mouth daily LEVOTHYROXINE SODIUM [id number] Galileo Uriostegui MD tolterodine TOLTERODINE TARTRATE 2 MG 07-26-2016 [facility] TABS One tablet by mouth (44 691) daily TOLTERODINE TARTRATE [id number] Galileo Uriostegui MD vitamin D VITAMIN D 1000 UNIT TABS One 01-31-2016 - 05-07-2016 [facility] tablet by mouth daily (74228 ) CHOLECALCIFEROL [id number] Galileo Uriostegui MD VITAMIN D 1000 UNIT TABS One 01-31-2016 - 05-07-2016 [facility] tablet by mouth daily (40336) CHOLECALCIFEROL [id number] Emerald Roman PA-C VITAMIN D 1000 UNIT TABS One 01-31-2016 [facility] tablet by mouth daily (54825) CHOLECALCIFEROL [id number] Galileo Uriostegui MD VITAMIN D 1000 UNIT TABS One 01-31-2016 - 05-07-2016 [facility] tablet by mouth daily (89853) CHOLECALCIFEROL [id number] Emerald Roman PA-C VITAMIN D 1000 UNIT TABS One 01-31-2016 [facility] tablet by mouth daily (52668) CHOLECALCIFEROL [id number] Galileo Uriostegui MD VITAMIN D 1000 UNIT TABS One 01-31-2016 - 05-07-2016 [facility] tablet by mouth daily (34669) CHOLECALCIFEROL [id number] Emerald Roman PA-C VITAMIN D 1000 UNIT TABS One 01-31-2016 [facility] tablet by mouth daily (81398) CHOLECALCIFEROL [id number] Galileo Uriostegui MD VITAMIN D 1000 UNIT TABS One 01-31-2016 [facility] tablet by mouth daily (31456) CHOLECALCIFEROL [id number] Galileo Uriostegui MD VITAMIN D 1000 UNIT TABS One 01-31-2016 - 05-07-2016 [facility] tablet by mouth daily (37628) CHOLECALCIFEROL [id number] Emerald Roman PA-C VITAMIN D 1000 UNIT TABS One 01-31-2016 - 05-07-2016 [facility] tablet by mouth daily (72954) CHOLECALCIFEROL [id number] Emerald Roman PA-C VITAMIN D 1000 UNIT TABS One 01-31-2016 [facility] tablet by mouth daily (44674) CHOLECALCIFEROL [id number] Galileo Uriostegui MD VITAMIN D 1000 UNIT TABS One 01-31-2016 - 05-07-2016 [facility] tablet by mouth daily (21173) CHOLECALCIFEROL [id number] Emerald Roman PA-C VITAMIN D 1000 UNIT TABS One 01-31-2016 [facility] tablet by mouth daily (25480) CHOLECALCIFEROL [id number] Galileo Uriostegui MD VITAMIN D 1000 UNIT TABS One 01-31-2016 - 05-07-2016 [facility] tablet by mouth daily (23471) CHOLECALCIFEROL [id number] Emerald Roman PA-C VITAMIN D 1000 UNIT TABS One 01-31-2016 [facility] tablet by mouth daily (51144) CHOLECALCIFEROL [id number] Galileo Uriostegui MD VITAMIN D 1000 UNIT TABS One 01-31-2016 - 05-07-2016 [facility] tablet by mouth daily (14650) CHOLECALCIFEROL [id number] Emerald Roman PA-C VITAMIN D 1000 UNIT TABS One 01-31-2016 [facility] tablet by mouth daily (95915) CHOLECALCIFEROL [id number] Galileo Uriostegui MD VITAMIN D 1000 UNIT TABS Two 08-23-2014 [facility] tablets by mouth daily (15161) CHOLECALCIFEROL [id number] Vale Pardo RN VITAMIN D 1000 UNIT TABS Two 08-23-2014 [facility] tablets by mouth daily (73538) CHOLECALCIFEROL [id number] Vale Pardo RN VITAMIN D 1000 UNIT TABS Two 08-23-2014 [facility] tablets by mouth daily (00371) CHOLECALCIFEROL [id number] Vale Pardo RN VITAMIN D 1000 UNIT TABS Two 08-23-2014 [facility] tablets by mouth daily (62284) CHOLECALCIFEROL [id number] Vale Pardo RN VITAMIN D 1000 UNIT TABS Two 08-23-2014 [facility] tablets by mouth daily (45111) CHOLECALCIFEROL [id number] Vale Pardo RN VITAMIN D 1000 UNIT TABS Two 08-23-2014 [facility] tablets by mouth daily (11822) CHOLECALCIFEROL [id number] Vale Pardo RN VITAMIN D 1000 UNIT TABS Two 08-23-2014 [facility] tablets by mouth daily (11363) CHOLECALCIFEROL [id number] Vale Pardo RN VITAMIN D 1000 UNIT TABS Two 08-23-2014 [facility] tablets by mouth daily (90117) CHOLECALCIFEROL [id number] Vale Pardo RN VITAMIN D 1000 UNIT TABS Two 08-23-2014 [facility] tablets by mouth daily (68366) CHOLECALCIFEROL [id number] Vale Pardo RN Problems Active Problems Category Problem Name Status Date Location Acute cerebrovascular Cerebrovascular accident Active - [facility] ([id number]) Coronary atherosclerosis Coronary atherosclerosis Active 01-11 - [facility] other heart disease Grou p (45143) 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 Active 08-24-19 - [facility] complications diabetes mellitus Group (44 691) Disorders of lipid Hyperlipidemia Active 08-23-2014 - [facility] metabolism [facility] (62758) Essential hypertension Benign hypertension Active 08-23-2014 - [facility] (73970) Other nutritional; Body mass index (BMI) Active 08-25-2014 - [facility]; and metabolic 30.0-30.9, adult Group (80666) disorders Thyroid disorders Hypothyroidism Active 05-22-2016 - [facility] (25807) Transient cerebral Transient cerebral Active 05-22-2015 - [facility] ischemia ischemia Group (92010) Unclassified Coronary artery bypass Active 05-01-2016 - [facility] (39122) Unclassified Obstructive sleep apnea Active 08-25-2014 - [facility] (57638) Past or Other Problems Category Problem Name Status Date Location Fluid and electrolyte Hyperkalemia Completed 02-01-2016 - [facility] (58618) Malaise and fatigue Fatigue Completed 08-25-2014 - [facility] (07522) Nonspecific chest pain Precordial pain Completed 08-23-2014 [facility] (82075) Other aftercare Other terminal carman Completed 08-23-2014 - [facility] (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 Group (57699) Other lower Dyspnea on exertion Completed 02-22-2015 - [facility] respiratory disease Group (4 4691) Other lower Dyspnea Completed 02-22-2015 - [facility] respiratory disease Group (4 4691) Other nutritional; Body mass index (BMI) Completed 08-25-2014 - [facility] endocrine; and 27.0-27.9, adult Group (44 691) metabolic disorders Residual codes; Edema Completed 05-24-2015 - [facility] t unclassified Group (25405) Results Result Name Value Range Unit Interpretation Flag Date Location glucose poc on 2018 Glucose [Mass/Vol] 107 70-99 mg/dL High 09-18-2018 [facility] ([id number]) Comment: Performed By: #### [id number] #### MARY POC Subsection [facility] [place] [address] Glucose [Mass/Vol] 82 70-99 mg/dL Normal 09-18-2018 [facility] ([id number]) Comment: Performed By: #### [id number] #### MARY POC Subsection [address] [place] [address] Glucose [Mass/Vol] 130 70-99 mg/dL High 09-18-2018 [facility] (57605) Comment: Performed By: #### [id number] #### MARY POC Subsection [facility] [place] [address] lab report: lipase on 2017-02-13 LIPASE 31 73-393 U/L Low 02-13-2017 - --2 018 [facility] (50265) lab report: microalb:creat ratio,random ur on 2017-02-12 ACR 128.2 <30 mg/g High 02-12-2017 - [facility] (microalbumin/creatinine) MG/G CRE CRE Heart ratio Group (34156) Urine, creatinine 52.80 NO RANGE mg Invalid 02-12-2017 - [facility] EST. /d Interpretation 02-12-2017 Hear t L Code Group (72448) Urine, microalbumin 6.77 Units mg Invalid 02-12-2017 - [facility] converted. /d Interpretation 02-12-2017 Hea rt See lab L Code Group report for (99710) original value. lab report: liver profile on 2017-02-12 Alanine 14 12-78 U/L Invalid 02-12-2017 - [facility] aminotransferase Interpretation 02-12-19 18 [facility] (ALT) Code (42252) Albumin 3.4 3.4-5.0 g/dL Invalid 02-12-2017 - [facility] Interpretation 02-12-2017 [facility] Code (51706) Alkaline phosphatase 65 45-117 U/L Invalid 8 - [facility] (ALP) Interpretation 02-12-2017 [facility] Code (27037) Aspartate 14 15-37 U/L Low 02-12-2017 - [facility] aminotransferase 02-12-2017 He art Group (AST) (13659) Bilirubin (direct) 0.11 0.00-0.30 mg/dL Invalid 02-12-2017 - [facility] Interpretation 02-12-2017 [facility] Code (54024) Bilirubin (total) 0.30 0.20-1.00 mg/dL Invalid 02-12-2017 - [facility] Interpretation 02-12-2017 [facility] Code (55073) Globulin 3.5 2.2-4.2 g/dL Invalid 02-12-2017 - [facility] Interpretation 02-12-2017 [facility] Code (21217) Protein 6.9 6.4-8.2 g/dL Invalid 02-12-2017 - [facility] Interpretation 02-12-2017 [facility] t [facility] Code (77743) lab report: lipid profile on 2017-02-12 Cholesterol 101 200 mg/dL Invalid 02-12-2017 - [facility] Interpretation Code 02-12-2017 Group (82004) HDL Cholesterol 43 mg/dL Invalid 02-12-2017 - [facility] Interpretation Code 02-12-2017 Group (30121) LDL Cholesterol 26 0-130 mg/dL Invalid 02-12-2017 - [facility] Interpretation Code 02-12-2017 Group (26223) Triglyceride 160 mg/dL Invalid 02-12-2017 - [facility] Interpretation Code 02-12-2017 Group (07750) very low density 32 5-40 mg/dL Invalid 02-12-2017 - [facility] lipoproteins Interpretation Code 018 Group (73299) lab report: hemoglobin a1c on 2017-02-12 Hemoglobin 7.6 4.2-6.3 % High 02-12-2017 - [facility] A1c/Hemoglobin.total mass Group (62845) fraction (Bld) lab report: basic metabolic profile (bmp ) on 2017-02-12 Anion gap 11 5-15 mmol/L Invalid 02-12-2017 - [facility] Interpretation Code 02-12-2017 [facility] (06299) BUN/Creatinine 16.2 RATIO 10-20 Invalid 02-12-2017 - [facility] Ratio Interpretation Code 02-12-2017 [facility] (02888) Calcium 8.0 8.5-10.1 mg/dL Low 02-12-2017 - [facility] 02-12-2017 [facility] (78204) Chloride 107 98-107 mmol/L Invalid 02-12-2017 - [facility] Interpretation Code 02-12-2017 [facility] (66353) CO2 23.0 21.0-32.0 mmol/L Invalid 02-12-2017 - [facility] Interpretation Code 02-12-2017 [facility] (77988) Creatinine 1.85 0.55-1.02 mg/dL High 02-12-2017 - [facility] 02-12-2017 [facility] (79376) eGFR 34 >60 mL/min Low 02-12-2017 - [facility] (non-black) 02-12-2017 [facility] (48921) eGFR 28 >60 mL/min Low 02-12-2017 - [facility] (non-black) 02-12-2017 [facility] (23466) Glucose mass 177 70-110 mg/dL High 02-12-2017 [facility] 02-12-2017 [facility] (10857) Potassium molar 4.3 3.5-5.1 mmol/L Invalid 02-12-2017 - [facility] Interpretation Code 02-12-2017 [facility] (90248) Sodium 141 136-145 mmol/L Invalid 02-12-2017 - [facility] Interpretation Code 02-12-2017 [facility] (71124) Urea nitrogen 30 7-18 mg/dL High 02-12-2017 - [facility] 02-12-2017 [facility] (14695) office visit on 08-18-12 Dietary management yes Invalid 10-23-2016 - [facility] education, guidance, Interpretation Code 10-23-2016 Group (80178) and counseling (procedure) Documentation of Done Invalid 10-23-2016 - [facility] current medications Interpretation Code 10-23-2016 Group (46925) (procedure) Fall risk assessment No Invalid 7 - [facility] Interpretation Code 10-23-2016 Group (64675) Protein mass conc Done 10-23-2016 - [facility] 10-23-2016 Group (44 691) Tobacco smoking Never smoker Invalid 10-23-2016 - [facility] status NHIS Interpretation Code 10-24-19 17 Group (13413) Tobacco use CPHS Never smoker Invalid 10-23-2016 - [facility] Interpretation Code 10-23-2016 Group (15529) lab report: liver profile on 2016-08-01 Alanine 20 12-78 U/L Invalid 08-01-2016 - [facility] aminotransferase Interpretation 08-02-19 17 [facility] (ALT) Code (07224) Albumin 3.8 3.4-5.0 g/dL Invalid 08-01-2016 - [facility] Interpretation 08-01-2016 Hear t Group Code (32421) Alkaline phosphatase 75 45-117 U/L Invalid [facility] (ALP) Interpretation 08-01-2016 [facility] Group Code (32653) ALP enzyme act/vol 75 45-117 U/L 08-01-2016 - [facility] (Bld) 08-01-2016 [facility] (57091) Aspartate 19 15-37 U/L Invalid 08-01-2016 - [facility] aminotransferase Interpretation 08-02-19 [facility] (AST) Code (06211) Bilirubin (direct) 0.14 0.00-0.30 mg/dL Invalid 08-01-2016 - [facility] Interpretation 08-01-2016 [facility] Code (91427) Bilirubin (total) 0.50 0.20-1.00 mg/dL Invalid 08-01-2016 - [facility] Interpretation 08-01-2016 [facility] Group Code (21540) Globulin 4.2 2.3-3.5 g/dL High 08-01-2016 - [facility] 08-01-2016 [facility] (54975) Globulin mass conc 4.2 2.3-3.5 g/dL High 08-01-2016 - [facility] (S) 08-01-2016 [facility] (57539) Protein 8.0 6.4-8.2 g/dL Invalid 08-01-2016 - [facility] Interpretation 08-01-2016 Hear t Group Code (57688) lab report: lipid profile on 2016-08-01 Cholesterol 140 200 mg/dL Invalid 08-01-2016 - [facility] Interpretation Code 08-01-2016 Group (28452) HDL Cholesterol 48 mg/dL Invalid 08-01-2016 - [facility] Interpretation Code 08-01-2016 Group (79150) LDL Cholesterol 56 0-130 mg/dL Invalid 08-01-2016 - [facility] Interpretation Code 08-01-2016 Group (01433) Lipoprotein.pre-bet 36 5-40 mg/dL 08-01-2016 - [facility] a mass conc 08-01-2016 Group ( 79463) Triglyceride 178 mg/dL Invalid 08-01-2016 - [facility] Interpretation Code 08-01-2016 Group ([id number]) very low density 36 5-40 mg/dL Invalid 08-01-2016 - [facility] lipoproteins Interpretation Code 017 Group (42769) office visit on 08-16-15 Dietary management yes Invalid 07-26-2016 - [facility] education, guidance, Interpretation Code 07-26-2016 Group (47172) and counseling (procedure) Documentation of Done Invalid 07-26-2016 - [facility] current medications Interpretation Code 07-26-2016 Group (71010) (procedure) Fall risk assessment No Invalid [facility] Interpretation Code 07-26-2016 Group (50054) Protein mass conc Done 07-26-2016 - [facility] 07-26-2016 Group (44 691) Tobacco smoking Never smoker 07-26-2016 - [facility] status NHIS 07-26-2016 Group ( 41570) Tobacco use CPHS Never smoker Invalid 07-26-2016 - [facility] Interpretation Code 07-26-2016 Group (12219) lab report: serum creatinine and gfr on 2016-07-09 Creatinine 1.16 0.55-1.02 mg/dL High 07-09-2016 - [facility] 07-09-2016 (74879) eGFR (non-black) 58 >60 mL/min Low 07-09-2016 - [facility] 07-09-2016 (67615) eGFR (non-black) 48 >60 mL/min Low 07-09-2016 - [facility] 07-09-2016 (19115) EST GFR - AA 58 >60 mL/min Low 07-09-2016 - [facility] 07-09-2016 (28112) replaced document: midmark ecg observati ons on 2016-06-17 EKG QRS axis -3 deg Invalid 06-17-2016 [facility] Interpretation 06-17-2016 [facility] Code (19392) electrocardiogram Sinus Rhythm Invalid - [facility] interpretation -Old inferior Interpretation 2016 [facility] infarct. Code (78559) ABNORMAL GE use only - for 395 ms Invalid 06-17-2016 - [facility] [employer] import when Interpretation Heart Group terms are not Code (84570 ) otherwise specified Interpretation Sinus Rhythm Invalid 06-17-2016 - [facility] -Old inferior Interpretation 06-17-2016 Heart Group infarct. Code (32835) ABNORMAL P Hailey 17 deg Invalid 06-17-2016 - [facility] Interpretation 06-17-2016 Hear [facility] Group Code (09927) P wave axis, 17 deg Invalid 06-17-2016 - [facility] electrocardiogram Interpretation 017 [facility] Code (00777) W[place] Interval 186 ms Invalid 06-17-2016 - [facility] Interpretation 06-17-2016 [facility] Code (48870) WV interval, 186 ms Invalid 06-17-2016 - [facility] electrocardiogram Interpretation 017 [facility] Code (46727) Pulse (Heart Rate) 94 BPM /min Invalid 06-17-2016 - [facility] Interpretation 06-17-2016 Hear t Group Code (92959) QRS axis, -3 deg Invalid 06-17-2016 - [facility] electrocardiogram Interpretation 017 [facility] Code (48303) QRS Duration 76 ms Invalid 06-17-2016 - [facility] Interpretation 06-17-2016 [facility] Code (21317) QRS duration, 76 ms Invalid 06-17-2016 - [facility] electrocardiogram Interpretation 017 [facility] Code (99889) QT Interval new path ms Invalid 06-17-2016 - [facility] Interpretation 06-17-2016 [facility] Code (60731) QT interval, new path ms Invalid 06-17-2016 - [facility] electrocardiogram Interpretation 017 [facility] Code (51783) QTc Hubbard 395 ms Invalid 06-17-2016 - [facility] Interpretation 06-17-2016 [facility] Code (17729) T Hailey -1 deg Invalid 06-17-2016 - [facility] Interpretation 06-17-2016 [facility] Code (51110) T wave axis, -1 deg Invalid 06-17-2016 - [facility] electrocardiogram Interpretation 017 [facility] Code (22821) office visit on 08-15-07 Dietary management yes Invalid Interpretatio n 06-17-2016 - [facility] education, guidance, Code 7 Group (16250) and counseling (procedure) Documentation of Done Invalid Interpretation 06-17-2016 - [facility] current medications Code 06-17-2016 Group (57975) (procedure) office visit: june n 2016-05-22 Documentation of Done Invalid Interpretation 05-22-2016 - [facility] current medications Code 05-22-2016 Group (87687) (procedure) lab report: thyroid stim hormone (tsh) on 2016-05-22 Thyroid stimulating 13.40 0.358-3.74 u[iU]/mL High - [facility] hormone (TSH) 05-22-2016 Group (09932) lab report: t4 total, thyroxin on 2016-05-22 Thyroxine (T4) 12.9 4.8-13.9 ug/dL Invalid 05-22-2016 - [facility] Interpretation Code 05-22-2016 Group ([id number]) lab report: basic metabolic profile (bmp ) on 2016-05-22 Anion gap 4 5-15 mmol/L Low 05-22-2016 - [facility] 05-22-2016 [facility] (88072) Anion gap molar 4 5-15 mmol/L Low 05-22-2016 - [facility] 05-22-2016 [facility] (74773) BUN/Creatinine 14.0 RATIO 10-20 Invalid 05-22-2016 - [facility] Ratio Interpretation Code 05-22-2016 [facility] Group (42556) Calcium 8.0 8.5-10.1 mg/dL Low 05-22-2016 - [facility] 05-22-2016 [facility] (84031) Chloride 104 98-107 mmol/L Invalid 05-22-2016 - [facility] Interpretation Code 05-22-2016 [facility] Group (54239) CO2 24.0 21.0-32.0 mmol/L Invalid 05-22-2016 - [facility] Interpretation Code 05-22-2016 Heart Group (63386) CO2 ppres 24.0 21.0-32.0 mmol/L 05-22-2016 - [facility] (BldV) 05-22-2016 [facility] (99027) Creatinine 2.29 0.55-1.02 mg/dL High 05-22-2016 - [facility] 05-22-2016 [facility] (51959) eGFR 27 >60 mL/min Low 05-22-2016 - [facility] (non-black) 05-22-2016 [facility] (25327) eGFR 22 >60 mL/min Low 05-22-2016 - [facility] (non-black) 05-22-2016 [facility] (51317) Glucose 151 70-110 mg/dL High 05-22-2016 - [facility] 05-22-2016 [facility] (49601) Glucose mass 151 70-110 mg/dL High 05-22-2016 [facility] 05-22-2016 [facility] (96819) Potassium 4.1 3.5-5.1 mmol/L Invalid 05-22-2016 - [facility] Interpretation Code 05-22-2016 [facility] Group (95305) Sodium 132 136-145 mmol/L Low 05-22-2016 - [facility] 05-22-2016 [facility] (33861) Urea nitrogen 32 7-18 mg/dL High 05-22-2016 - [facility] 05-22-2016 [facility] (02523) office visit: mmm o n 2016-05-07 Fall risk assessment No Invalid Interpretat ion 05-07-2016 - [facility] Code 05-07-2016 Group (44 691) clinical lists update on 2016-05-03 Left ventricular 55 % Invalid Interpretation 05-03-2016 - [facility] Ejection fraction Code 05-03-2016 Ti [facility] (27808) append: dr caldwell,thoracic surgery on 2016-04-29 Clinical [facility]-[id number]^02/29/2016 Invalid 04-29 - [facility] consultation Interpretation 04-29-2016 [facility] report (record Code Group artifact) ([id number]) lab report: bedside glucose on 2016-02-27 Glucose 153 70-110 mg/dL High 02-26-2016 - 02-26-2 017 [facility] (88396) Glucose mass conc 153 70-110 mg/dL High 02-26-2016 - 02-27-2016 [facility] (78956) office visit on 07-22-20 Dietary management yes Invalid Interpretatio n 01-31-2016 - [facility] education, guidance, Code 6 Group (63791) and counseling (procedure) lab report: prothrombin time w/inr on 2016-01-31 Coagulation 13.2 SECONDS 11.7-14.9 Invalid 01-31-2016 - [facility] tissue factor Interpretation 01-31-2016 [facility] induced in Code (10244) platelet poor plasma INR Coag RelTime 1.0 {INR Invalid 01-31-2016 - [facility] (PPP) } Interpretation 01-31-2016 Hear t Group Code (20303) INR in blood by 1.0 {INR Invalid 01-31-2016 - [facility] coagulation } Interpretation 01-31-2016 He art Group Code ([id number]) lab report: partial thromboplast time on 2016-01-31 aPTT 29.5 24.1-36.2 s Invalid Interpretation 016 - [facility] Code 01-31-2016 Group (44 126) lab report: cbc-complete blood cnt no di ff on 2016-01-31 Erythrocyte 13.0 11.6-14.6 % 01-31-2016 - [facility] distribution 01-31-2016 [facility] width Ratio (RBC) (4 3960) Erythrocyte 44.0 35.1-43.9 fL High 01-31-2016 - [facility] distribution 01-31-2016 [facility] width Ratio (RBC) (4 4391) Erythrocytes 4.69 4.2-5.4 10*6/u Invalid 01-31-2016 [facility] (RBC) L Interpretation 01-31-2016 Hear t Group Code (81919) Hematocrit (HCT) 44.7 37-47 % Invalid 01-31-2016 - [facility] Interpretation 01-31-2016 Hear t Group Code (66047) Hematocrit Volume 44.7 37-47 % 01-31-2016 - [facility] Fraction (Bld) 01-31-2016 Hear t Group (01329) Hemoglobin (HGB) 14.2 12.0-15.0 g/dL Invalid 01-31-2016 - [facility] Interpretation 01-31-2016 Hear t Group Code (81176) MCH 30.3 27.0-32.0 pg Invalid 01-31-2016 - [facility] Interpretation 01-31-2016 Hear t Group Code (99481) MCH Entitic mass 30.3 27.0-32.0 pg 01-31-2016 - [facility] (RBC) 01-31-2016 [facility] (62630) MCHC 31.8 G/GL 32-36 Low 01-31-2016 - [facility] 01-31-2016 [facility] (03115) MCHC mass conc 31.8 G/GL 32-36 Low 01-31-2016 - [facility] (RBC) 01-31-2016 [facility] (06356) MCV 95.3 81-99 fL Invalid 01-31-2016 - [facility] Interpretation 01-31-2016 Hear t Group Code (10602) MCV Entitic 95.3 81-99 fL 01-31-2016 - [facility] [facility] volume (RBC) 01-31-2016 [facility] Group (27370) Platelet mean 11.5 6.2-12.0 fL 01-31-2016 - [facility] volume Entitic 01-31-2016 Hear t Group volume (Bld) (65955) Platelets 195 150-450 10*3/m Invalid 01-31-2016 - [facility] m3 Interpretation 01-31-2016 Hear t [facility] Code (95800) Platelets #/vol 195 150-450 10*3/m 01-31-2016 - [place] [facility] (Bld) m3 01-31-2016 [facility] (67654) PMV by Ja 11.5 6.2-12.0 fL Invalid 01-31-2016 - [facility] Interpretation 01-31-2016 Hear t Group Code (95060) RBC #/vol (Bld) 4.69 4.2-5.4 10*6/u 01-31-2016 - [facility] L 01-31-2016 [facility] (33407) RDW SD 44.0 35.1-43.9 fL High 01-31-2016 - [facility] 01-31-2016 [facility] (20199) RDW-CA 13.0 11.6-14.6 % Invalid 01-31-2016 - [place] Interpretation 01-31-2016 Hear t Group Code (94214) red blood cell 44.0 35.1-43.9 fL High 01-31-2016 - [facility] distribution 01-31-2016 [facility] width, size (30686) density WBC #/vol (Bld) 9.2 4.4-11.0 10*9/L 01-31-2016 - [facility] 01-31-2016 [facility] (27869) WBC (Leukocytes) 9.2 4.4-11.0 10*9/L Invalid 01-31-2016 - [facility] Interpretation 01-31-2016 Hear t Group Code (46422) lab report: bnp,b-type natriuretic pepti de on 2015-05-24 BNP 23.5 0-100 pg/mL Invalid Interpretation 016 - [facility] Code 05-24-2015 Group (44 691) office visit on 07-11-12 General cardiovascular > 32 % Invalid 016 - [facility] disease 10Y risk [#] Interpretation Code 02-22-2015 Heart Group [place] (53080) Tobacco use CP Never Invalid 02-22-2015 - [facility] smoker Interpretation Code 02-22-2015 Heart Group (15841) clinical lists update: preload on 2015-01-16 Alanine 31 U/L Invalid 01-16-2015 - [facility] aminotransferase (ALT) Interpretation Co de 01-16-2015 Group (95482) Alkaline phosphatase 120 U/L Invalid - [facility] (ALP) Interpretation Code 01-16-2015 Group (12151) Aspartate 30 U/L Invalid 01-16-2015 - [facility] aminotransferase (AST) Interpretation Co de 01-16-2015 Group (07407) clinical lists update: preload on 2014-09-19 Cholesterol 109 mg/dL Invalid Interpretation 09-19 - [facility] Code 09-19-2014 Group (44 691) HDL Cholesterol 32 mg/dL Invalid Interpretation 0 09-19-2014 - [facility] Code 09-19-2014 Group (44 691) LDL Cholesterol 43 mg/dL Invalid Interpretation 0 09-19-2014 - [facility] Code 09-19-2014 Group (44 691) Triglyceride 170 mg/dL Invalid Interpretation 08- 0-2014 - [facility] Code 09-19-2014 Group (44 691) very low density 34 mg/dL Invalid Interpretation 09-19-2014 - [facility] lipoproteins Code 09-19-2014 Group (84165) office visit on 06-17-15 cardiac risk group C Invalid Interpretatio n 08-25-2014 - [facility] Code 08-25-2014 Group (44 691) clinical lists update: preload on 2014-07-20 HbA1c 13.5 % Critically abnormal 07-20-2014 - 07-20-2014 [facility] (03542) clinical lists update: preload on 2014-07-19 Albumin 4.0 g/dL Invalid Interpretation 015 - [facility] Code 07-19-2014 Group (44 691) Bilirubin (total) 0.2 mg/dL Invalid Interpretation 07-19-2014 - [facility] Code 07-19-2014 Group (44 691) Protein 7.3 g/dL Invalid Interpretation 015 - [facility] Code 07-19-2014 Group (44 691) Vital Signs Vital Sign Description Value / Unit Date Location The following section is limited to 5 en tries per type and includes entries from the following time range: [id number] - [id number] 3. BMI (Body Mass Index) 27.63 kg/m2 10-23-2016 - 10-23-2016 [facility] ([id number]) BMI (Body Mass Index) 27.45 kg/m2 07-26-2016 - 07-26-2016 [facility] ([id number]) BMI (Body Mass Index) 26.92 kg/m2 06-17-2016 - 06-17-2016 [facility] ([id number]) BMI (Body Mass Index) 28.45 kg/m2 05-22-2016 - 05-22-2016 [facility] ([id number]) Body Temperature 97.4 [degF] 05-07-2016 - 05-07-2016 [facility] ([id number]) BP Diastolic 60 mm[Hg] 10-23-2016 - 10-23-2016 [facility] ([id number]) BP Diastolic 68 mm[Hg] 07-26-2016 - 07-26-2016 [facility] ([id number]) BP Diastolic 62 mm[Hg] 06-17-2016 - 06-17-2016 [facility] ([id number]) BP Diastolic 58 mm[Hg] 05-22-2016 - 05-22-2016 [facility] ([id number]) BP Systolic 130 mm[Hg] 10-23-2016 - 10-23-2016 [facility] ([id number]) BP Systolic 142 mm[Hg] 07-26-2016 - 07-26-2016 [facility] ([id number]) BP Systolic 124 mm[Hg] 06-17-2016 - 06-17-2016 [facility] ([id number]) BP Systolic 110 mm[Hg] 05-22-2016 - 05-22-2016 [facility] ([id number]) BSA (Body Surface Area) 1.77 m2 01-31-2016 - 01-31-2016 [facility] ([id number]) Heart rate 94 /min 06-17-2016 - 06-17-2016 [facility] ([id number]) Height 160.02 cm 10-23-2016 - 10-23-2016 [facility] ([id number]) Height 160.02 cm 07-26-2016 - 07-26-2016 [facility] ([id number]) Height 160.02 cm 05-22-2016 - 05-22-2016 [facility] ([id number]) Pulse (Heart Rate) 72 /min 10-23-2016 - 10-23-2016 [facility] ([id number]) Pulse (Heart Rate) 68 /min 07-26-2016 - 07-26-2016 [facility] ([id number]) Pulse (Heart Rate) 84 /min 06-17-2016 - 06-17-2016 [facility] ([id number]) Pulse (Heart Rate) 80 /min 05-22-2016 - 05-22-2016 [facility] ([id number]) Pulse Oximetry 94 % 05-07-2016 - 05-07-2016 [facility] ([id number]) Respiratory Rate 18 /min 10-23-2016 - 10-23-2016 [facility] ([id number]) Respiratory Rate 16 /min 07-26-2016 - 07-26-2016 [facility] ([id number]) Respiratory Rate 16 /min 06-17-2016 - 06-17-2016 [facility] ([id number]) Respiratory Rate 18 /min 05-22-2016 - 05-22-2016 [facility] ([id number]) Weight 70.76 kg 10-23-2016 - 10-23-2016 [facility] ([id number]) Weight 70.31 kg 07-26-2016 - 07-26-2016 [facility] ([id number]) Weight 68.95 kg 06-17-2016 - 06-17-2016 [facility] ([id number]) Weight 72.85 kg 05-22-2016 - 05-22-2016 [facility] ([id number]) Procedures Procedure Name Date Provider Location Dietary management 10-23-2016 - [facility] education, guidance, and 10-23-2016 ([id number]) counseling Follow Up Appt 6 months 10-23-2016 - Galileo Uriostegui MD [facility] 10-23-2016 ([id number]) [facility] 10-23-2016 - Galileo Uriostegui MD [facility] 10-23-2016 ([id number]) Follow Up Appt 6 months 10-23-2016 - Galileo Uriostegui MD [facility] 10-23-2016 ([id number]) [facility] 10-23-2016 - Galileo Uriostegui MD [facility] 10-23-2016 ([id number]) Dietary management 07-26-2016 - [facility] education, guidance, and 07-26-2016 ([id number]) counseling *Hepatic Function Panel 07-26-2016 - Galileo Uriostegui MD [facility] 08-01-2016 ([id number]) Follow Up Appt 3 months 07-26-2016 - Galileo Uriostegui MD [facility] 07-26-2016 ([id number]) Lipid 1996 panel - Serum or 07-26-2016 - Galileo Uriostegui MD [facility] Plasma 08-01-2016 ([id number]) MMM 07-26-2016 - Galileo Uriostegui MD [facility] 07-26-2016 ([id number]) *Hepatic Function Panel 07-26-2016 - Galileo Uriostegui MD [facility] 08-01-2016 ([id number]) Follow Up Appt 3 months 07-26-2016 - Galileo Uriostegui MD [facility] 07-26-2016 ([id number]) Lipid panel [AGGREGATE] 07-26-2016 - Galileo Uriostegui MD [facility] 08-01-2016 ([id number]) MMM 07-26-2016 - Galileo Uriostegui MD [facility] 07-26-2016 ([id number]) Venous doppler 06-17-2016 - Galileo Uriostegui MD [facility] 06-18-2016 ([id number]) Venous doppler 06-17-2016 - Galileo Uriostegui MD [facility] 06-18-2016 ([id number]) Nurse, Teaching, Wound Check 05-23-2016 - Joes J A Valles [facility]PITAL[facility] INTER[facility] (no charge) 05-23-2016 ([id number]) Nurse, Teaching, Wound Check 05-23-2016 - Jose J A Valles [facility]PITAL[facility] INTERN[facility] (no charge) 05-23-2016 ([id number]) Follow Up Appt 6 weeks 05-22-2016 - Jose J A Valles [facility]PITAL[facility] INTER[facility] 05-22-2016 ([id number]) [facility] 05-22-2016 - Jose J A Valles [facility]PITAL[facility] INTER[facility] 05-22-2016 ([id number]) Thyrotropin [Units/volume] 05-22-2016 - Jose J A Valles [facility]PITAL[facility] INTER[facility] in Serum or Plasma 05-23-2016 ([id number]) Thyroxine (T4) [Mass/volume] 05-22-2016 - Jose J A Valles [facility]PITAL[facility] in Serum or Plasma 05-22-2016 ([id number]) Follow Up Appt 6 weeks 05-22-2016 - Jose J A Valles [facility]ITAL[facility] 05-22-2016 ([id number]) MMM 05-22-2016 - Jose J A Valles [facility]ITAL[facility] 05-22-2016 ([id number]) Thyroid stimulating hormone 05-22-2016 - Jose J A Valles [facility]ITAL[facility] INTER[facility] (TSH) 05-23-2016 ([id number]) Thyroxine (T4) 05-22-2016 - Jose J A Valles [facility]ITAL[facility] 05-22-2016 ([id number]) Ecg routine ecg w/least 12 05-07-2016 - Emerald Roman [facility] lds w/i&r 05-21-2016 PA-C ([id number]) Follow Up Appt Other 05-07-2016 - Emerald Roman [facility] 05-21-2016 PA-C ([id number]) Electrocardiogram, complete 05-07-2016 - Emerald Roman [facility] 05-21-2016 PA-C ([id number]) Follow Up Appt Other 05-07-2016 - Emerald Roman [facility] 05-21-2016 PA-C ([id number]) Coronary artery bypass graft 05-01-2016 [facility] ([id number]) *BMP 03-04-2016 - Galileo Uriostegui MD [facility] 05-21-2016 ([id number]) *BMP 03-04-2016 - Galileo Uriostegui MD [facility] 05-21-2016 ([id number]) *BMP 02-29-2016 - Galileo Uriostegui MD [facility] 02-29-2016 ([id number]) Referral to television specialist 02-29-2016 - Galileo Uriostegui MD [facility] 03-01-2016 ([id number]) *BMP 02-29-2016 - Galileo Uriostegui MD [facility] 02-29-2016 ([id number]) Referral to television specialist 02-29-2016 - Galileo Uriostegui MD [facility] 03-01-2016 ([id number]) *BMP 02-05-2016 - Galileo Uriostegui MD [facility] 02-27-2016 ([id number]) *BMP 02-05-2016 - Galileo Uriostegui MD [facility] 02-27-2016 ([id number]) *BMP 01-31-2016 - Galileo Uriostegui MD [facility] 01-31-2016 ([id number]) aPTT in Platelet poor plasma 01-31-2016 - Galileo Uriostegui MD [facility] by Coagulation assay 01-31-2016 ([id number]) CBC W Auto Differential 01-31-2016 - Galileo Uriostegui MD [facility] panel - Blood 01-31-2016 ([id number]) Chest x-ray 01-31-2016 - Galileo Uriostegui MD [facility] 02-27-2016 ([id number]) Ecg routine ecg w/least 12 01-31-2016 - [facility] lds w/i&r 01-31-2016 ([id number]) Echocardiography 01-31-2016 - [facility] 02-08-2016 ([id number]) Follow Up Appt 3 months 01-31-2016 - Galileo Uriostegui MD [facility] 01-31-2016 ([id number]) INR in Platelet poor plasma 01-31-2016 - Galileo Uriostegui MD [facility] by Coagulation assay 01-31-2016 ([id number]) Left Heart Cath 01-31-2016 - Galileo Uriostegui MD [facility] 02-27-2016 ([id number]) MMM 01-31-2016 - Galileo Uriostegui MD [facility] 01-31-2016 ([id number]) *BMP 01-31-2016 - Galileo Uriostegui MD [facility] 01-31-2016 ([id number]) aPTT 01-31-2016 - Galileo Uriostegui MD [facility] 01-31-2016 ([id number]) CBC W Auto Differential 01-31-2016 - [facility] panel - Blood 01-31-2016 ([id number]) Chest x-ray 01-31-2016 - Galileo Uriostegui MD [facility] 02-27-2016 ([id number]) Coagulation factor 01-31-2016 - [facility] induced.INR assay in 01-31-2016 ([id number]) platelet poor plasma Echocardiography 01-31-2016 - [facility] 02-08-2016 ([id number]) Electrocardiogram, complete 01-31-2016 - Galileo Uriostegui MD [facility] 01-31-2016 ([id number]) Follow Up Appt 3 months 01-31-2016 - Galileo Uriostegui MD [facility] 01-31-2016 ([id number]) Left Heart Cath 01-31-2016 - Galileo Uriostegui MD [facility] 02-27-2016 ([id number]) MMM 01-31-2016 - [facility] 01-31-2016 ([id number]) Follow Up Appt 6 months 05-24-2015 - Emerald Roman [facility] 05-24-2015 PA-C ([id number]) Natriuretic peptide B 05-24-2015 - Emerald Roman [facility] [Mass/volume] in Blood 05-25-2015 PA-C ([id number]) PFM 05-24-2015 - [facility] 05-24-2015 [facility] ([id number]) BNP 05-24-2015 - [facility] 05-25-2015 [facility] ([id number]) Follow Up Appt 6 months 05-24-2015 - Emerald Roman [facility] 05-24-2015 PA-C ([id number]) PFM 05-24-2015 - Emerald [facility] 05-24-2015 PA-C ([id number]) Follow Up Appt 3 months 02-22-2015 - Galileo Uriostegui MD [facility] 02-22-2015 ([id number]) Follow Up BP Check 02-22-2015 - [facility] 04-05-2015 ([id number]) MMM 02-22-2015 - [facility] 02-22-2015 ([id number]) Pulmonary Function Test - 02-22-2015 - Galileo Uriostegui MD [facility] complete 04-27-2015 ([id number]) Follow Up Appt 3 months 02-22-2015 - Galileo Uriostegui MD [facility] 02-22-2015 ([id number]) Follow Up BP Check 02-22-2015 - [facility] 04-05-2015 ([id number]) MMM 02-22-2015 - Galileo Uriostegui [facility] 02-22-2015 ([id number]) Pulmonary Function Test - 02-22-2015 - Galileo Uriostegui MD [facility] complete 04-27-2015 ([id number]) Ecg routine ecg w/least 12 08-25-2014 - [facility] lds w/i&r 08-25-2014 ([id number]) Echocardiography 08-25-2014 - [facility] 04-27-2015 ([id number]) Follow Up Appt 6 months 08-25-2014 - Galileo Uriostegui MD [facility] 08-25-2014 ([id number]) Nuclear stress test 08-25-2014 - Galileo Uriostegui MD [facility] -Lexiscan 04-27-2015 ([id number]) PFM 08-25-2014 - Galileo Uriostegui MD [facility] 08-25-2014 ([id number]) Echocardiography 08-25-2014 - [facility] 04-27-2015 ([id number]) Electrocardiogram, complete 08-25-2014 - Galileo Uriostegui MD [facility] 08-25-2014 ([id number]) Follow Up Appt 6 months 08-25-2014 - Galileo Uriostegui MD [facility] 08-25-2014 ([id number]) Nuclear stress test 08-25-2014 - Galileo Uriostegui MD [facility] -Lexiscan 04-27-2015 ([id number]) PFM 08-25-2014 - Galileo Uriostegui MD [facility] 08-25-2014 ([id number]) Plan of Treatment Plan Description Date Location Appointment Appointment 04-22-2017 - [facility] 04-22-2017 ([id number]) *Hepatic Function Panel *Hepatic Function Panel 01-31-2017 - [facility] 08-09-2016 ([id number]) *Lipid Profile CC PCP *Lipid Profile CC PCP 01-31-2017 - [facility] 08-09-2016 ([id number]) *Hepatic Function Panel *Hepatic Function Panel 01-31-2017 - [facility] 08-09-2016 ([id number]) *Lipid Profile CC PCP *Lipid Profile CC PCP 01-31-2017 - [facility] 08-09-2016 ([id number]) Appointment Appointment 10-23-2016 - [facility] 10-23-2016 ([id number]) *Hepatic Function Panel *Hepatic Function Panel 10-23-2016 - [facility] 10-23-2016 ([id number]) Follow Up Appt 6 months Follow Up Appt 6 months 10-23-2016 - [facility] 10-23-2016 ([id number]) *Lipid Profile CC PCP *Lipid Profile CC PCP 10-23-2016 - [facility] 10-23-2016 ([id number]) MMM MMM 10-23-2016 - [facility] 10-23-2016 ([id number]) *Hepatic Function Panel *Hepatic Function Panel 10-23-2016 - [facility] 10-23-2016 ([id number]) Follow Up Appt 6 months Follow Up Appt 6 months 10-23-2016 - [facility] 10-23-2016 ([id number]) *Lipid Profile CC PCP *Lipid Profile CC PCP 10-23-2016 - [facility] 10-23-2016 ([id number]) MMM MMM 10-23-2016 - [facility] 10-23-2016 ([id number]) Appointment Appointment 07-26-2016 - [facility] 07-26-2016 ([id number]) *Hepatic Function Panel *Hepatic Function Panel 07-26-2016 - [facility] 08-01-2016 ([id number]) Follow Up Appt 3 months Follow Up Appt 3 months 07-26-2016 - [facility] 07-26-2016 ([id number]) *Lipid Profile CC PCP *Lipid Profile CC PCP 07-26-2016 - [facility] 08-01-2016 ([id number]) MMM MMM 07-26-2016 - [facility] 07-26-2016 ([id number]) *Hepatic Function Panel *Hepatic Function Panel 07-26-2016 - [facility] 08-01-2016 ([id number]) Follow Up Appt 3 months Follow Up Appt 3 months 07-26-2016 - [facility] 07-26-2016 ([id number]) *Lipid Profile CC PCP *Lipid Profile CC PCP 07-26-2016 - [facility] 08-01-2016 ([id number]) MMM MMM 07-26-2016 - [facility] 07-26-2016 ([id number]) Appointment Appointment 06-17-2016 - [facility] 06-17-2016 ([id number]) CT Chest with Contrast CT Chest with Contrast 06-17-2016 - [facility] 06-18-2016 ([id number]) EKG (In office) EKG (In office) 06-17-2016 - [facility] 06-17-2016 ([id number]) Follow Up Appt Other Follow Up Appt Other 06-17-2016 - [facility] 06-17-2016 ([id number]) MMM MMM 06-17-2016 - [facility] 06-17-2016 ([id number]) PFM PFM 06-17-2016 - [facility] 06-17-2016 ([id number]) Venous doppler Venous doppler 06-17-2016 - [facility] 06-17-2016 ([id number]) CT Chest with Contrast CT Chest with Contrast 06-17-2016 - [facility] 06-18-2016 ([id number]) EKG (In office) EKG (In office) 06-17-2016 - [facility] 06-17-2016 ([id number]) Follow Up Appt Other Follow Up Appt Other 06-17-2016 - [facility] 06-17-2016 ([id number]) MMM MMM 06-17-2016 - [facility] 06-17-2016 ([id number]) PFM PFM 06-17-2016 - [facility] 06-17-2016 ([id number]) Venous doppler Venous doppler 06-17-2016 - [facility] 06-17-2016 ([id number]) *BMP *BMP 05-29-2016 - [facility] 05-23-2016 ([id number]) *BMP *BMP 05-29-2016 - [facility] 05-23-2016 ([id number]) Follow Up Appt 6 weeks Follow Up Appt 6 weeks 05-22-2016 - [facility] 05-22-2016 ([id number]) MMM MMM 05-22-2016 - [facility] 05-22-2016 ([id number]) *TSH *TSH 05-22-2016 - [facility] 05-23-2016 ([id number]) *T4 (Total) *T4 (Total) 05-22-2016 - [facility] 05-22-2016 ([id number]) Follow Up Appt 6 weeks Follow Up Appt 6 weeks 05-22-2016 - [facility] 05-22-2016 ([id number]) MMM MMM 05-22-2016 - [facility] 05-22-2016 ([id number]) *TSH *TSH 05-22-2016 - [facility] 05-23-2016 ([id number]) *T4 (Total) *T4 (Total) 05-22-2016 - [facility] 05-22-2016 ([id number]) EKG (In office) EKG (In office) 05-07-2016 - [facility] 05-21-2016 ([id number]) Follow Up Appt Other Follow Up Appt Other 05-07-2016 - [facility] 05-21-2016 ([id number]) EKG (In office) EKG (In office) 05-07-2016 - [facility] 05-21-2016 ([id number]) Follow Up Appt Other Follow Up Appt Other 05-07-2016 - [facility] 05-21-2016 ([id number]) *BMP *BMP 03-04-2016 - [facility] 05-21-2016 ([id number]) *BMP *BMP 03-04-2016 - [facility] 05-21-2016 ([id number]) *BMP *BMP 02-29-2016 - [facility] 02-29-2016 ([id number]) Cardiac Referral Yuriy Cardiac Referral [facility] 02-29-2016 - [facility] [place], Cardiothoracic [facility], Cardiothoracic 02-29-2016 ([id number]) Surgery Group, [facility], [address], [address], [place], [place], [address], [place], [address] [place], [address] *BMP *BMP 02-29-2016 - [facility] 02-29-2016 ([id number]) Cardiac Referral Yuriy Cardiac Referral [facility] 02-29-2016 - [facility], Cardiothoracic [facility], Cardiothoracic 02-29-2016 ([id number]) Surgery Group, [facility], [address], [address], [place], [place], [address], [place], [address] [place], [address] *BMP *BMP 02-05-2016 - [facility] 02-27-2016 ([id number]) *BMP *BMP 02-05-2016 - [facility] 02-27-2016 ([id number]) *BMP *BMP 01-31-2016 - [facility] 01-31-2016 ([id number]) *PTT-Partial *PTT-Partial 01-31-2016 - [facility] Thromboplastin Time Thromboplastin Time 01-31-2016 ([id number]) *CBC without Diff *CBC without Diff 01-31-2016 - [facility] 01-31-2016 ([id number]) X-Ray, Chest, PA & Lateral X-Ray, Chest, PA & 01-31-2016 - [facility] Lateral 02-27-2016 ([id number]) EKG (In office) EKG (In office) 01-31-2016 - [facility] 01-31-2016 ([id number]) Echocardiogram (complete) Echocardiogram (complete) 01-31-2016 - [facility] 01-31-2016 ([id number]) Follow Up Appt 3 months Follow Up Appt 3 months 01-31-2016 - [facility] 01-31-2016 ([id number]) *PT/INR *PT/INR 01-31-2016 - [facility] 01-31-2016 ([id number]) Left Heart Cath Left Heart Cath 01-31-2016 - [facility] 01-31-2016 ([id number]) MMM MMM 01-31-2016 - [facility] 01-31-2016 ([id number]) *BMP *BMP 01-31-2016 - [facility] 01-31-2016 ([id number]) *PTT-Partial *PTT-Partial 01-31-2016 - [facility] Thromboplastin Time Thromboplastin Time 01-31-2016 ([id number]) *PTT-Partial *PTT-Partial 01-31-2016 - [facility] Thromboplastin Time Thromboplastin Time 01-31-2016 ([id number]) *CBC without Diff *CBC without Diff 01-31-2016 - [facility] 01-31-2016 ([id number]) X-Ray, Chest, PA & Lateral X-Ray, Chest, PA & 01-31-2016 - [facility] Lateral 02-27-2016 ([id number]) *PT/INR *PT/INR 01-31-2016 - [facility] 01-31-2016 ([id number]) Echocardiogram (complete) Echocardiogram (complete) 01-31-2016 - [facility] 01-31-2016 ([id number]) EKG (In office) EKG (In office) 01-31-2016 - [facility] 01-31-2016 ([id number]) Follow Up Appt 3 months Follow Up Appt 3 months 01-31-2016 - [facility] 01-31-2016 ([id number]) Left Heart Cath Left Heart Cath 01-31-2016 - [facility] 01-31-2016 ([id number]) MMM MMM 01-31-2016 - [facility] 01-31-2016 ([id number]) *Brain Natriuretic Peptide *Brain Natriuretic 05-24-2015 - [facility] BNP Peptide BNP 05-25-2015 ([id number]) Follow Up Appt 6 months Follow Up Appt 6 months 05-24-2015 - [facility] 05-24-2015 ([id number]) PFM PFM 05-24-2015 - [facility] 05-24-2015 ([id number]) *Brain Natriuretic Peptide *Brain Natriuretic 05-24-2015 - [facility] BNP Peptide BNP 05-25-2015 ([id number]) Follow Up Appt 6 months Follow Up Appt 6 months 05-24-2015 - [facility] 05-24-2015 ([id number]) PFM PFM 05-24-2015 - [facility] 05-24-2015 ([id number]) Follow Up Appt 3 months Follow Up Appt 3 months 02-22-2015 - [facility] 02-22-2015 ([id number]) Follow Up BP Check Follow Up BP Check 02-22-2015 - [facility] 04-05-2015 ([id number]) MMM MMM 02-22-2015 - [facility] 02-22-2015 ([id number]) Pulmonary Function Test - Pulmonary Function Test - 02-22-2015 - [facility] complete complete 02-22-2015 ([id number]) Follow Up Appt 3 months Follow Up Appt 3 months 02-22-2015 - [facility] 02-22-2015 ([id number]) Follow Up BP Check Follow Up BP Check 02-22-2015 - [facility] 04-05-2015 ([id number]) MMM MMM 02-22-2015 - [facility] 02-22-2015 ([id number]) Pulmonary Function Test - Pulmonary Function Test - 02-22-2015 - [facility] complete complete 02-22-2015 ([id number]) EKG (In office) EKG (In office) 08-25-2014 - [facility] 08-25-2014 ([id number]) Echocardiogram (complete) Echocardiogram (complete) 08-25-2014 - [facility] 08-25-2014 ([id number]) Follow Up Appt 6 months Follow Up Appt 6 months 08-25-2014 - [facility] 08-25-2014 ([id number]) Nuclear stress test Nuclear stress test 08-25-2014 - [facility] -Lexiscan -[facility] 08-25-2014 ([id number]) PFM PFM 08-25-2014 - [facility] 08-25-2014 ([id number]) Echocardiogram (complete) Echocardiogram (complete) 08-25-2014 - [facility] 08-25-2014 ([id number]) EKG (In office) EKG (In office) 08-25-2014 - [facility] 08-25-2014 ([id number]) Follow Up Appt 6 months Follow Up Appt 6 months 08-25-2014 - [facility] 08-25-2014 ([id number]) Nuclear stress test Nuclear stress test 08-25-2014 - [facility] -Lexiscan -Lexiscan 08-25-2014 ([id number]) PFM PFM 08-25-2014 - [facility] 08-25-2014 ([id number]) Patient education HYPERLIPIDEMIA [facility] ([id number]) Summary Purpose Family History No Family History Records Found Advance Directives No Advanced Directives Records Found Additional Source Comments FOR RECORDS PERTAINING TO PATIENTS WHO ARE OR HAVE BEEN ENROLLED IN A CHEMICAL DEPENDENCY/SUBSTANCE ABUSE PROGRAM, SOME INFORMATION MAY BE OMITTED. This clinical summary was aggregated from multiple sources. Caution should be exercised in using it in the provision of clinical care. This summary normalizes information from multiple sources, and as a consequence, information in this document may materially changethe coding, format and clinical context of patient data. In addition, data may be omittedin some cases. CLINICAL DECISIONS SHOULD BE BASED ON THE PRIMARY CLINICAL RECORDS. [facility] provides no warranty or guarantee of the accuracy or completeness of information in this document. UNRECOGNIZED CONTENT PROVIDED BELOW FOR UNRECOGNIZED SECTION INFORMATION SOURCE DATE CREATED AUTHOR AUTHOR'S ORGANIZATIO N 09/18/2018 [facility]
[2018-11-02 15:14] VITALS: BMI 29.5
== END ==
PROVIDERS: Family Provider Family Medicine; PCP Family Medicine; Referring Provider Internal Medicine Cardiovascular Disease; Visit Provider Internal Medicine Cardiovascular Disease
DX: Z01.818 Encounter for other preprocedural examination (principal); R06.02 Shortness of breath; R05 Cough; R07.9 Chest pain, unspecified
CPT/HCPCS: 36415; 71046; 85610

== ENCOUNTER → 2018-10-05 13:45 | Outpatient (CLI) | payer MEDICARE, SELFPAY ==
[2018-09-30 07:51] VITALS: BMI 28.8
[2018-10-05 16:09] LABS: Anion Gap 10 (5-15); BUN 40 mg/dL (7-18); BUN/Creat Ratio 21.5 RATIO (10-20); Calcium,Total 8.3 mg/dL (8.5-10.1); Chloride 115 mmol/L (98-107); Creatinine, Serum 1.86 mg/dL (0.55-1.02); EST Glomerular Filtration Rate 28 mL/min (>60); Est Glom Filt Rate - Afr Amer 33 mL/min (>60); Glucose 86 mg/dL (74-106); Sodium Level 141 mmol/L (136-145)
== END ==
PROVIDERS: Family Provider Family Medicine; PCP Family Medicine; Visit Provider Family Medicine
DX: N18.3 Chronic kidney disease, stage 3 (moderate) (principal)
CPT/HCPCS: 36415; 80048

== ENCOUNTER 2018-10-05 20:48 | Emergency (ER) | payer MEDICARE, SELFPAY ==
[2018-09-30 07:51] VITALS: BMI 28.8
[2018-10-05 20:49] VITALS: BP 152/68; PULSE 80; RESP 16; TEMP 36; BMI 29.2
--- NOTE | 2018-10-05 20:58 | EKG12_ITS ---
Test Reason : ABN LABS Blood Pressure : / mmHG Vent. Rate : 068 BPM Atrial Rate : 068 BPM P-R Int : 184 ms QRS Dur : 072 ms QT Int : 392 ms P-R-T Axes : -15 006 007 degrees QTc Int : 416 ms Normal sinus rhythm Nonspecific ST and T wave abnormality Abnormal ECG Confirmed by CHERYL BENITEZ, ANGELA ([id number]), city editor KATHI TSE ([id number]) on 10/07/2018 11:57:29 AM Referred By: KATHLEEN Confirmed By:ANGELA LUNA MD
--- NOTE | 2018-10-05 21:05 | RAD_ITS ---
STUDY: X-RAY CHEST REASON FOR EXAM: Female, 83 years old. Hyperkalemia TECHNIQUE: Frontal view of the chest COMPARISON: 09/08/2018 FINDINGS: The lungs are clear. There are no pleural effusions. There is no pneumothorax. The heart is normal in size. Again noted are sternotomy wires. The visualized osseous structures are within normal limits. RAD/Chest 1 View (Portable) IMPRESSION: No acute thoracic pathology. Electronically Signed: Kel Steel, at 21:17 EDT Tel , Service support ,
--- NOTE | 2018-10-05 21:36 | ED.DCSUM_ITS ---
History of Present Illness Chief Complaint: Abn Labs Informant: Patient Onset: Today Current Severity: No symptoms Narrative: The patient presents to the emergency department abnormal labs. She states that she had outpatient lab work done today. She was called and told that her potassium was dangerously high. She had taken 2 doses of Lasix after the phone call. She denies chest pain or shortness of breath. The patient does have a history of coronary vascular disease and is status post three-vessel CABG in 2017. She denies any other new medications. She denies any nausea or vomiting. She does state that she has chronic diarrhea but this is not atypical for her. She also has mild underlying chronic kidney disease. Prior similar symptoms: No Recent Illness/Hospitalization: No Past Medical History - Allergies and Home Meds Allergies/Adverse Reactions: Allergies latex Allergy (Verified 10/05/18 20:59) Rash adhesive tape Adverse Reaction (Verified 10/05/18 20:59) Rash Primary Care Physician: Fernando Kong MD [Primary Care Provider] - Prior records reviewed: Yes Surgical History: appendectomy, cholecystectomy, coronary bypass surgery, herniorrhaphy, hysterectomy, total knee arthroplasty, tonsillectomy, - - c ryotherapy for kidney tumor Smoking Status: Never smoker - Family History Maternal Family History: Family History (Last Reviewed 09/30/18 @ 07:53 by Gin Granados) Father Heart disease Mother Breast cancer Diabetes Heart disease Family History: Reports: Diabetes, Heart Disease - age 95 Paternal Family History: Family History (Last Reviewed 09/30/18 @ 07:53 by Gin Granados) Father Heart disease Mother Breast cancer Diabetes Heart disease Family History: Reports: Heart Disease - age 69 Review of Systems General: Denies: Chills, Fever, Sweats Eyes: Denies: Visual changes - bilaterally, Diplopia ENT: Denies: Rhinorrhea, Sore throat Cardiovascular: Denies: Chest pain, Palpitations Respiratory: Denies: Dyspnea, Cough, Dyspnea on exertion Gastrointestinal: Denies: Abdominal pain, Nausea, Vomiting, Diarrhea, Melena, Hematochezia Genitourinary: Denies: Dysuria, Hematuria, Frequency Musculoskeletal: Denies: Back pain, Extremity Pain Skin: Denies: Rash, Wounds Neurological: Denies: Headache, Weakness, Numbness Physical Exam Vital Signs/Narrative: Vital Signs Temp Pulse Resp BP 10/05/18 20:49 96.8 F L 80 16 152/68 H Inital Vital Signs reviewed: Yes General: Well nourished, Well developed, No Acute Distress Head: Normocephalic, Atraumatic Eyes: Perrl, EOMI ENT: Moist mucous membranes, No rhinorrhea Neck: Supple, Nontender Cardiovascular: Regular rate, Regular rhythm, No murmurs Respiratory: No distress, CTA bilaterally, Chest nontender Abdomen: Soft, Nontender, Nondistended, Normal bowel sounds Back: Nontender, Normal Inspection Extremities: Nontender, No edema Skin: Normal color, No rash Neurological: Alert, Oriented x3, Cranial nerves II-XII grossly intact, Normal Strength, Normal Sensation Psychological: Normal affect, Normal Mood Diagnostic/Tx/Re-eval Abnormal Lab Results 10/05/18 10/05/18 21:25 21:25 WBC 10.8 RBC 4.29 Hgb 13.1 Hct 40.0 MCV 93.2 MCH 30.5 MCHC 32.8 RDW Std Deviation 47.5 H RDW Coeff of Laquita 14.0 Plt Count 204 MPV 11.2 Immature Gran % (Auto) 0.400 Neut % (Auto) 50.2 Lymph % (Auto) 35.4 Crawford % (Auto) 9.0 Eos % (Auto) 4.4 Baso % (Auto) 0.6 Absolute Neuts (auto) 5.4 Absolute Lymphs (auto) 3.82 Nucleated RBC % 0 Sodium 142 Potassium 4.8 Chloride 117 H Carbon Dioxide 17.0 L Anion Gap 8 BUN 42 H Creatinine 1.88 H Estim Creat Clear Calc 19.41 Est GFR (MDRD) Af Amer 33 L Est GFR (MDRD) Non-Af 27 L BUN/Creatinine Ratio 22.3 H Glucose 60 L Calcium 8.4 L Total Bilirubin 0.20 AST 12 L ALT 14 Alkaline Phosphatase 59 Total Protein 8.1 Albumin 4.0 Globulin 4.1 Albumin/Globulin Ratio 1.0 Clinical Impression(s) from Imaging Studies Chest X-Ray 10/05/18 21:05 IMPRESSION: No acute thoracic pathology. Electronically Signed: Kel Steel, at 21:17 EDT Tel , Service support , - Rhythm Strip Rhythm Strip: Sinus Rhythm Rate: 80 Ectopy: None - EKG Initial EKG Interpretation: Sinus Rhythm, No Acute Injury Pattern Prior: Unchanged - Medical Decision Making The patient presents with reported hyperkalemia. EKG was done on patient arrival. Demonstrated sinus rhythm. There is no peak T waves or acute ischemic change. It was unchanged from prior. Screening labs were obtained. The patient's potassium is 4.8. She was mildly hypoglycemic. She was given oral orange juice and observed. I am not sure if her hyperkalemia from early was lab error or has resolved. At this point, given her normal EKG and normal potassium I do feel that she is safe to follow-up as an outpatient. The patient is comfortable with this plan of care. She was counseled concerning symptoms and reasons to return. She will be discharged home. Impression 1. Spurious hyperkalemia ED Disposition - Plan for ED Patient: Instructions: Hyperkalemia Referrals: Fernando Kong MD [Primary Care Provider] -
[2018-10-05 21:38] LABS: Absolute Lymphocyte Count 3.82 X10^3/uL (0.83-4.51); Absolute Neutrophil Count 5.4 X10^3/uL (2.0-7.7); Basophil# 0.06 X10^3/uL; Basophil% 0.6 % (0-1); Eosinophil# 0.48 X10^3/uL; Eosinophils% 4.4 % (0-5); Hemoglobin 13.1 g/dL (12.0-15.0); Lymphocyte # 3.82 X10^3/ul (4.0); Lymphocyte % 35.4 % (19-41); Mean Corp Hgb Conc 32.8 g/dL (32-36); Mean Corpuscular Hgb 30.5 pg (27.0-32.0); Mean Corpuscular Volume 93.2 fL (81-99); Mean Platelet Vol. 11.2 fl (6.2-12.0); Monocyte# 0.97 X10^3/uL; NRBC Flagged by Analyzer 0 % (0-5); Neutrophil # 5.42 X10^3/uL (2.7-7.7); Neutrophil % 50.2 % (47-70); Platelet Count 204 K/mm3 (150-450); RBC Distribution Width SD 47.5 fl (35.1-43.9); Red Blood Count 4.29 M/mm3 (4.2-5.4); White Blood Count 10.8 K/mm3 (4.4-11.0)
[2018-10-05 21:56] LABS: AST(SGOT) 12 U/L (15-37); Alanine Aminotransfer ALT/SGPT 14 U/L (13-56); Alkaline Phosphatase 59 U/L (45-117); Anion Gap 8 (5-15); BUN 42 mg/dL (7-18); BUN/Creat Ratio 22.3 RATIO (10-20); Calcium,Total 8.4 mg/dL (8.5-10.1); Chloride 117 mmol/L (98-107); Creatinine, Serum 1.88 mg/dL (0.55-1.02); EST Glomerular Filtration Rate 27 mL/min (>60); Est Glom Filt Rate - Afr Amer 33 mL/min (>60); Estimated Creatinine Clearance 19.41 ml/min; Globulin 4.1 g/dL (2.2-4.2); Glucose 60 mg/dL (74-106); Potassium 4.8 mmol/L (3.5-5.1); Protein, Total 8.1 g/dL (6.4-8.2); Sodium Level 142 mmol/L (136-145)
--- NOTE | 2018-10-05 22:04 | ED.RN ---
PER DR WANG, HOLD ON D50. GIVE PT SOMETHING TO EAT AND DRINK TO INCREASE BLOOD SUGAR
[2018-10-05 22:40] LABS: Bedside Glucose 70 mg/dL (70-110)
--- NOTE | 2018-10-05 22:44 | ED.RN ---
PER DR. WANG RECHECK BLOOD SUGAR 30 MIN AFTER OJ GIVEN. PT'S SUGAR WAS 70. PER DR. WANG GIVE PT ANOTHER OJ & COOKIES. RN WILL CONTINUE TO MONITOR.
[2018-10-05 22:52] VITALS: PULSE 88; RESP 20
== END 2018-10-05 22:53 | disposition home or self-care (01) ==
LOC: ED 21:12
PROVIDERS: Emergency Provider Emergency Medicine; Family Provider Family Medicine; PCP Family Medicine
DX: E87.5 Hyperkalemia (principal); Z90.49 Acquired absence of other specified parts of digestive tract; Z90.710 Acquired absence of both cervix and uterus; Z91.040 Latex allergy status; Z95.1 Presence of aortocoronary bypass graft; N18.9 Chronic kidney disease, unspecified; I25.10 Atherosclerotic heart disease of native coronary artery without angina pectoris
CPT/HCPCS: 36415; 71045; 80048; 80053; 82962; 85025; 93005; 99285; A4216

== ENCOUNTER → 2018-10-08 14:40 | Outpatient (CLI) | payer MEDICARE, SELFPAY ==
[2018-10-05 20:49] VITALS: BMI 29.2
--- NOTE | 2018-10-08 14:42 | US_ITS ---
STUDY: RENAL ULTRASOUND - COMPLETE REASON FOR EXAM: Female, 83 years old. No adrenal masses. Cryotherapy treatment used. TECHNIQUE: Ultrasound evaluation of the kidneys was performed with real-time and static pollock-scale imaging. COMPARISON: Bilateral renal ultrasound November 25, 2016; CT abdomen and pelvis with oral contrast only May 08, 2017. FINDINGS: RIGHT KIDNEY: Normal location of the right kidney, which is normal in size. The right kidney measures 8.5 x 4.3 x 4.6 cm. There is a normal cortex of the right kidney. The renal cortex measures 1.5 cm. 1.4 x 1.2 x 1.3 cm cortical echogenicity suggesting a cortical cyst noted in the anterior hilar lip, although this was not evident on CT. A mixed echogenicity 2.6 x 2.2 x 2.2 cm mass with calcifications that produce posterior acoustic shadowing seen in the anteromedial mid to lower pole, corresponding to the mass noted on CT. There are no right renal calculi. There is no right hydronephrosis. DISTAL RIGHT URETER: There is non-visualization of the distal right ureter. There is no demonstrated right ureterovesical junction calculus. There is no demonstrated right ureteral jet. LEFT KIDNEY: Normal location of the left kidney, which is normal in size. The left kidney measures 9.0 x 4.2 x 4.8 cm. There is a normal cortex of the left kidney. The renal cortex measures 1.4 cm. There is an exophytic well-defined, hypoechoic 1.9 x 2.2 x 1.8 cm cyst in the anterior midpole. A second 6 x 5 x 5 mm cortical cyst also seen at the anterior midpole. Neither of these were apparent on CT is also seen in the anterolateral mid to lower pole is incompletely defined 2.5 x 2.5 x 2.3 cm soft tissue mass with coarse central calcification correlating to the lesion noted on CT. There are no left renal calculi. There is no left hydronephrosis. DISTAL LEFT URETER: There is non-visualization of the distal left ureter. There is no demonstrated left ureterovesical junction calculus. There is a visualized left ureteral jet. BLADDER: The distended urinary bladder has a volume of 202 ml. The empty urinary bladder has a volume of 0 ml. There is upper normal 4 mm wall thickness of the distended urinary bladder. There is no demonstrated mass within the urinary bladder. There are no demonstrated bladder calculi. US/Kidney and Bladder IMPRESSION: 1. Small cortical cyst is now suggested at the medial midpole the right kidney, in addition to the stable, heterogeneous, partially calcified right renal cortical mass. 2. 2 simple appearing exophytic cortical cysts are now seen in the mid to lower pole of the left kidney, in addition to the grossly stable anterolateral mid to lower pole mass seen on prior imaging. 3. No hydronephrosis. The urinary bladder is unremarkable. Electronically Signed: Yash Vance MD at 15:57 EDT , Service support ,
== END ==
PROVIDERS: Family Provider Family Medicine; PCP Family Medicine; Referring Provider Family Medicine; Visit Provider Family Medicine
DX: C64.9 Malignant neoplasm of unspecified kidney, except renal pelvis (principal)
CPT/HCPCS: 76770

== ENCOUNTER → 2018-10-13 08:42 | Outpatient (CLI) | payer MEDICARE, SELFPAY ==
[2018-10-05 20:49] VITALS: BMI 29.2
[2018-10-13 09:43] LABS: Microalbumin,Random Urine 67.5 mg/L (NO RANGE EST.)
[2018-10-13 09:50] LABS: Hemoglobin A1c 8.3 % (4.2-6.3)
[2018-10-13 10:00] LABS: ALB/GLOB Ratio 0.9 RATIO (0.9-2.4); AST(SGOT) 16 U/L (15-37); Alanine Aminotransfer ALT/SGPT 17 U/L (13-56); Albumin, Serum 3.6 g/dL (3.2-5.0); Alkaline Phosphatase 53 U/L (45-117); Anion Gap 9 (5-15); BUN 39 mg/dL (7-18); BUN/Creat Ratio 24.1 RATIO (10-20); Calcium,Total 9.3 mg/dL (8.5-10.1); Chloride 112 mmol/L (98-107); Creatinine, Serum 1.62 mg/dL (0.55-1.02); EST Glomerular Filtration Rate 32 mL/min (>60); Est Glom Filt Rate - Afr Amer 39 mL/min (>60); Globulin 4.1 g/dL (2.2-4.2); Glucose 192 mg/dL (74-106); Potassium 5.2 mmol/L (3.5-5.1); Protein, Total 7.7 g/dL (6.4-8.2); Sodium Level 141 mmol/L (136-145); Thyroid Stim Hormone (TSH) 2.16 uIU/mL (0.358-3.74)
== END ==
PROVIDERS: Family Provider Family Medicine; PCP Family Medicine; Referring Provider Internal Medicine Endocrinology, Diabetes & Metabolism; Visit Provider Internal Medicine Endocrinology, Diabetes & Metabolism
DX: E11.65 Type 2 diabetes mellitus with hyperglycemia (principal); E04.9 Nontoxic goiter, unspecified; E11.42 Type 2 diabetes mellitus with diabetic polyneuropathy
CPT/HCPCS: 36415; 80053; 82043; 82570; 83036; 84443

== ENCOUNTER → 2018-10-14 10:22 | Outpatient (CLI) | payer MEDICARE, SELFPAY ==
[2018-10-05 20:49] VITALS: BMI 29.2
[2018-10-14 13:00] LABS: Anion Gap 13 (5-15); BUN 37 mg/dL (7-18); BUN/Creat Ratio 23.1 RATIO (10-20); Calcium,Total 9.2 mg/dL (8.5-10.1); Chloride 108 mmol/L (98-107); EST Glomerular Filtration Rate 33 mL/min (>60); Est Glom Filt Rate - Afr Amer 40 mL/min (>60); Glucose 198 mg/dL (74-106); Potassium 5.2 mmol/L (3.5-5.1); Sodium Level 138 mmol/L (136-145)
== END ==
PROVIDERS: Family Provider Family Medicine; PCP Family Medicine; Visit Provider Family Medicine
DX: N18.3 Chronic kidney disease, stage 3 (moderate) (principal)
CPT/HCPCS: 36415; 80048

== ENCOUNTER → 2018-10-23 11:03 | Outpatient (CLI) | payer MEDICARE, SELFPAY ==
[2018-10-05 20:49] VITALS: BMI 29.2
[2018-10-23 12:53] LABS: Absolute Lymphocyte Count 2.54 X10^3/uL (0.83-4.51); Absolute Neutrophil Count 4.7 X10^3/uL (2.0-7.7); Basophil# 0.08 X10^3/uL; Basophil% 0.9 % (0-1); Eosinophil# 0.41 X10^3/uL; Eosinophils% 4.8 % (0-5); Hematocrit 38.4 % (37-47); Hemoglobin 12.2 g/dL (12.0-15.0); Lymphocyte # 2.54 X10^3/ul (4.0); Mean Corp Hgb Conc 31.8 g/dL (32-36); Mean Corpuscular Hgb 29.8 pg (27.0-32.0); Mean Corpuscular Volume 93.7 fL (81-99); Mean Platelet Vol. 11.5 fl (6.2-12.0); Monocyte# 0.65 X10^3/uL; Monocyte% 7.7 % (0-10); NRBC Flagged by Analyzer 0 % (0-5); Neutrophil # 4.74 X10^3/uL (2.7-7.7); Neutrophil % 55.9 % (47-70); Platelet Count 257 K/mm3 (150-450); RBC Distribution Width CV 13.9 % (11.6-14.6); RBC Distribution Width SD 46.5 fl (35.1-43.9); White Blood Count 8.5 K/mm3 (4.4-11.0)
[2018-10-23 13:32] LABS: Anion Gap 8 (5-15); BUN 25 mg/dL (7-18); BUN/Creat Ratio 17.7 RATIO (10-20); Calcium,Total 8.3 mg/dL (8.5-10.1); Chloride 112 mmol/L (98-107); Creatinine, Serum 1.41 mg/dL (0.55-1.02); EST Glomerular Filtration Rate 38 mL/min (>60); Est Glom Filt Rate - Afr Amer 46 mL/min (>60); Glucose 185 mg/dL (74-106); Sodium Level 140 mmol/L (136-145)
== END ==
PROVIDERS: Family Provider Family Medicine; PCP Family Medicine; Visit Provider Family Medicine
DX: R06.00 Dyspnea, unspecified (principal); I10 Essential (primary) hypertension; R60.9 Edema, unspecified
CPT/HCPCS: 36415; 80048; 83880; 85025

== ENCOUNTER → 2018-10-23 11:32 | Outpatient (CLI) | payer MEDICARE, SELFPAY ==
[2018-10-05 20:49] VITALS: BMI 29.2
--- NOTE | 2018-10-23 11:35 | RAD_ITS ---
STUDY: X-RAY CHEST REASON FOR EXAM: Female, 83 years old. Shortness of breath, dyspnea TECHNIQUE: Frontal and lateral views of the chest were performed COMPARISON: 05 October 2018 FINDINGS: Sternotomy wires are in place. Spinal stimulation catheter is present terminating in the mid thoracic spine. Cholecystectomy clips are present. There is lumbar fusion hardware screws. The lungs are clear and expanded. There is no demonstrated pleural abnormality. Normal size heart. Normal mediastinum and eddie. Normal visualized pulmonary arteries. Normal visualized aortic arch and descending thoracic aorta. Normal visualized thoracic spine. Normal visualized ribs, clavicles, and shoulders. There is no demonstrated abnormality of the visualized soft tissue structures of the upper abdomen. RAD/Chest PA and Lateral IMPRESSION: Unremarkable chest, no acute findings or change since prior. Electronically Signed: Juan J Mi, at 17:00 EDT Tel , Service support ,
== END ==
PROVIDERS: Family Provider Family Medicine; PCP Family Medicine; Referring Provider Family Medicine; Visit Provider Family Medicine
DX: R06.00 Dyspnea, unspecified (principal); R60.9 Edema, unspecified
CPT/HCPCS: 36415; 71046; 80048; 83880; 85025

== ENCOUNTER → 2018-11-02 16:32 | Outpatient (CLI) | payer MEDICARE, SELFPAY ==
[2018-10-05 20:49] VITALS: BMI 29.2
[2018-11-02 15:14] VITALS: BMI 29.5
[2018-11-02 17:09] LABS: Absolute Neutrophil Count 6.5 X10^3/uL (2.0-7.7); Basophil# 0.09 X10^3/uL; Basophil% 0.8 % (0-1); Eosinophil# 0.39 X10^3/uL; Eosinophils% 3.4 % (0-5); Hematocrit 40.7 % (37-47); Hemoglobin 13.1 g/dL (12.0-15.0); Lymphocyte % 29.9 % (19-41); Mean Corp Hgb Conc 32.2 g/dL (32-36); Mean Corpuscular Volume 93.1 fL (81-99); Mean Platelet Vol. 11.5 fl (6.2-12.0); Monocyte# 0.92 X10^3/uL; Monocyte% 8.1 % (0-10); NRBC Flagged by Analyzer 0 % (0-5); Neutrophil # 6.49 X10^3/uL (2.7-7.7); Neutrophil % 57.2 % (47-70); Platelet Count 233 K/mm3 (150-450); RBC Distribution Width CV 13.5 % (11.6-14.6); RBC Distribution Width SD 46.3 fl (35.1-43.9); Red Blood Count 4.37 M/mm3 (4.2-5.4); White Blood Count 11.4 K/mm3 (4.4-11.0)
[2018-11-02 17:33] LABS: Anion Gap 9 (5-15); BUN 42 mg/dL (7-18); BUN/Creat Ratio 18.3 RATIO (10-20); Calcium,Total 8.9 mg/dL (8.5-10.1); Chloride 106 mmol/L (98-107); Creatinine, Serum 2.29 mg/dL (0.55-1.02); EST Glomerular Filtration Rate 22 mL/min (>60); Est Glom Filt Rate - Afr Amer 26 mL/min (>60); Glucose 164 mg/dL (74-106); Potassium 4.6 mmol/L (3.5-5.1); Sodium Level 137 mmol/L (136-145)
== END ==
PROVIDERS: Family Provider Family Medicine; PCP Family Medicine; Referring Provider Physician Assistant Medical; Visit Provider Physician Assistant Medical
DX: N18.3 Chronic kidney disease, stage 3 (moderate) (principal); I50.9 Heart failure, unspecified; I25.10 Atherosclerotic heart disease of native coronary artery without angina pectoris; R06.02 Shortness of breath
CPT/HCPCS: 36415; 80048; 83880; 85025

== ENCOUNTER 2018-11-20 21:56 | Emergency (ER) | payer MEDICARE, SELFPAY ==
[2018-11-02 15:14] VITALS: BMI 29.5
[2018-11-20 21:57] VITALS: BP 155/78; PULSE 81; RESP 16; TEMP 36.8; O2SAT 94; BMI 29.2
--- NOTE | 2018-11-20 22:17 | ED.DCSUM_ITS ---
- ER Visit Summary Date of Service: 11/20/18 Chief Complaint: Intermittent leg cramping History of Present Illness: The patient is a 83 F 3 of diabetes, prior strokes, CAD with prior triple bypass, hypertension and renal insufficiency. Patient states last night and today primarily with laying down she is had bilateral leg cramping. Currently she is symptom-free. Denies any weakness. No back pain. No pain radiating from her back. No fever or chills. No nausea, vomiting or diarrhea. She previously was on Lasix but due to renal insufficiency they stopped it. She denies any leg swelling. No trauma. Physical Examination: Older female accompanied by her . Vital signs are stable and afebrile. HEENT exam unremarkable. Neck nontender. Lungs clear to auscultation bilaterally. Heart regular rhythm no murmur. Abdomen soft and nontender. Normal bowel sounds no peritoneal signs. Both upper and lower extremities are nontender. Neurovascularly intact. 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 5 out of 5 dorsi plantarflexion. Palpable DP pulses. Legs are warm to the touch. Calves are nontender without edema or cords. Normal range of motion of both upper and lower extremities. Normal strength and sensation. Back nontender. Neurologically she is awake and alert. No focal motor or sensory deficits. NIH is 0. Test Results: CBC shows white count 13. H&H 12 and 39. No bands. Electrolytes unremarkable potassium 3.8 normal. Calcium slightly low at 8.2. Known renal insufficiency BUN of 44 creatinine 1.6 which is her baseline. Normal gap. Emergency Department Course and Treatment:Clinically the patient has an unremarkable exam. Labs to be obtained. Repeat exam at 1138 patient is doing well. We went over her labs. Follow-up as an outpatient. Treatment Plan: Follow-up with primary care physician. Return if feeling worse. Disposition: Discharge Impression: Bilateral leg cramping Dehydration Chronic renal insufficiency This note was generated with [employer] dictation software. It may contain incorrect words, spelling, and punctuation that were not noted in review of the chart prior to signing ED Disposition - Plan for ED Patient: Disposition: Home or Assisted Living Referrals: Fernando Kong MD [Primary Care Provider] - 3-5 Days if not improving Additional Instructions: Your potassium level is normal. Your calcium level is just below normal. Follow-up with your primary care doctor. Make sure you are drinking plenty of fluids are mildly dehydrated.
[2018-11-20 23:00] LABS: Absolute Lymphocyte Count 2.77 X10^3/uL (0.83-4.51); Absolute Neutrophil Count 8.2 X10^3/uL (2.0-7.7); Basophil# 0.07 X10^3/uL; Basophil% 0.5 % (0-1); Eosinophil# 0.41 X10^3/uL; Eosinophils% 3.1 % (0-5); Hematocrit 39.5 % (37-47); Hemoglobin 12.9 g/dL (12.0-15.0); Lymphocyte # 2.77 X10^3/ul (4.0); Lymphocyte % 20.9 % (19-41); Mean Corp Hgb Conc 32.7 g/dL (32-36); Mean Corpuscular Hgb 30.1 pg (27.0-32.0); Mean Corpuscular Volume 92.1 fL (81-99); Mean Platelet Vol. 11.7 fl (6.2-12.0); Monocyte# 1.69 X10^3/uL; Monocyte% 12.7 % (0-10); NRBC Flagged by Analyzer 0 % (0-5); Neutrophil # 8.23 X10^3/uL (2.7-7.7); Neutrophil % 62.1 % (47-70); POSITIVE DIFFERENTIAL YES; Platelet Count 212 K/mm3 (150-450); RBC Distribution Width CV 13.2 % (11.6-14.6); RBC Distribution Width SD 45.1 fl (35.1-43.9); Red Blood Count 4.29 M/mm3 (4.2-5.4); White Blood Count 13.3 K/mm3 (4.4-11.0)
[2018-11-20 23:02] LABS: Differential Indicated SCAN CRITERIA MET
[2018-11-20 23:04] LABS: Anion Gap 10 (5-15); BUN 44 mg/dL (7-18); BUN/Creat Ratio 26.3 RATIO (10-20); Calcium,Total 8.2 mg/dL (8.5-10.1); Chloride 103 mmol/L (98-107); Creatinine, Serum 1.67 mg/dL (0.55-1.02); EST Glomerular Filtration Rate 31 mL/min (>60); Est Glom Filt Rate - Afr Amer 38 mL/min (>60); Estimated Creatinine Clearance 21.86 ml/min; Glucose 167 mg/dL (74-106); Potassium 3.8 mmol/L (3.5-5.1); Sodium Level 137 mmol/L (136-145)
[2018-11-20 23:12] LABS: Differential Comment SCANNED
--- NOTE | 2018-11-20 23:39 | ED.DEP ---
ED Disposition - Plan for ED Patient: Disposition: Home or Assisted Living Referrals: Fernando Kong MD [Primary Care Provider] - 3-5 Days if not improving Additional Instructions: Your potassium level is normal. Your calcium level is just below normal. Follow-up with your primary care doctor. Make sure you are drinking plenty of fluids are mildly dehydrated.
[2018-11-20] MEDS: HYDROcodone Bitartrate/Apap 5/325 Tablet PO (23:53)
[2018-11-20 23:54] VITALS: BP 149/65; PULSE 64; RESP 14; O2SAT 93
[2018-11-23 12:22] LABS: Pathologist Review Reviewed
== END 2018-11-21 00:35 | disposition home or self-care (01) ==
PROVIDERS: Emergency Provider Emergency Medicine; Family Provider Family Medicine; PCP Family Medicine
DX: R25.2 Cramp and spasm (principal); E86.0 Dehydration; I12.9 Hypertensive chronic kidney disease with stage 1 through stage 4 chronic kidney disease, or unspecified chronic kidney disease; I25.10 Atherosclerotic heart disease of native coronary artery without angina pectoris; E11.22 Type 2 diabetes mellitus with diabetic chronic kidney disease; Z79.899 Other long term (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
CPT/HCPCS: 80048; 85025; 96360; 99285; A4216

== ENCOUNTER → 2018-11-24 13:49 | Outpatient (CLI) | payer MEDICARE, SELFPAY ==
[2018-11-02 15:14] VITALS: BMI 29.5
[2018-11-20 21:57] VITALS: BMI 29.2
--- NOTE | 2018-11-24 13:52 | ECHOCS_ITS ---
Reason For Study: Dyspnea Procedure This was a 2D Doppler, Color Flow transthoracic echocardiogram. The study was technically difficult. Contrast injection was performed. Exam performed in department. Left Ventricle Normal LV size. Left ventricular systolic function is normal. The estimated ejection fraction is 65 %. No evidence for diastolic dysfunction. No regional wall motion abnormalities noted. Right Ventricle Normal RV size. Normal systolic function. Atria The left atrium is mildly enlarged. Normal right atrium. No doppler evidence for ASD. Mitral Valve There is no mitral annular calcification. Normal mitral valve. Mild (1+) mitral valve insufficiency. Tricuspid Valve The tricuspid valve is not well visualized. Trivial tricuspid valve insufficiency. Unable to estimate RV systolic pressure/pulmonary artery pressure due to technically difficult study. Aortic Valve The aortic valve is not well visualized. Pulmonic Valve The pulmonic valve is not well visualized. Trivial pulmonic valve insufficiency. Great Vessels The aortic root is not well visualized. Pericardium/Pleural No pericardial effusion. Medication 22 gauge I.V. with prn adaptor inserted into left arm. Diluted definity 1.5ml given slow IV push to enhance endocardial definition. MMode/2D Measurements & Calculations LVIDd: 4.1 cm IVSd: 1.1 cm LAV(MOD-bp): 49.7 ml LVIDs: 2.3 cm LVPWd: 1.2 cm FS: 43.0 % LAV(MOD-bp) Indexed: 28.6 ml/m2 LAV(MOD-sp2): 48.3 ml LAV(MOD-sp4): 51.1 ml LA A4 area: 18.8 cm2 RA A4 area: 12.0 cm2 Time Measurements MV dec time: 0.33 sec Doppler Measurements & Calculations MV E max sumeet: 82.0 cm/sec Lat Peak E' Sumeet: 10.8 cm/sec Med Peak E' Sumeet: 7.0 cm/sec MV A max sumeet: 111.6 cm/sec E/E' lat: 7.6 E/E' med: 11.8 MV E/A: 0.73 MV V2 max: 123.3 cm/sec MV P1/2t max sumeet: 99.2 cm/sec Ao V2 max: 113.3 cm/sec MV max P.1 mmHg MV P1/2t: 81.1 msec Ao max P.2 mmHg MV V2 mean: 67.7 cm/sec MV mean P.1 mmHg MV dec slope: 358.1 cm/sec2 MV V2 VTI: 32.9 cm MVA(P1/2t): 2.7 cm2 LV V1 max: 80.3 cm/sec PA V2 max: 92.6 cm/sec LV V1 max P.6 mmHg Interpretation Summary The study was technically difficult. Contrast injection was performed. Left ventricular systolic function is normal. The estimated ejection fraction is 65 %. The left atrium is mildly enlarged. Mild (1+) mitral valve insufficiency. Trivial tricuspid valve insufficiency. Trivial pulmonic valve insufficiency. Unable to estimate RV systolic pressure/pulmonary artery pressure due to technically difficult study. No evidence for diastolic dysfunction. Ordering Physician: Fernando Kong Referring Physician: Fernando Kong Performed By: Brodwolf, Rickie, RCS
== END ==
PROVIDERS: Family Provider Family Medicine; PCP Family Medicine; Referring Provider Family Medicine; Visit Provider Family Medicine
DX: R06.00 Dyspnea, unspecified (principal); R60.9 Edema, unspecified; I10 Essential (primary) hypertension; I25.10 Atherosclerotic heart disease of native coronary artery without angina pectoris
CPT/HCPCS: 93306; Q9957; A4216; C8929

== ENCOUNTER → 2018-11-30 10:35 | Outpatient (CLI) | payer MEDICARE, SELFPAY ==
[2018-11-20 21:57] VITALS: BMI 29.2
[2018-11-30 11:43] LABS: Anion Gap 10 (5-15); BUN 40 mg/dL (7-18); BUN/Creat Ratio 21.6 RATIO (10-20); Calcium,Total 9.2 mg/dL (8.5-10.1); Chloride 104 mmol/L (98-107); Creatinine, Serum 1.85 mg/dL (0.55-1.02); EST Glomerular Filtration Rate 28 mL/min (>60); Est Glom Filt Rate - Afr Amer 34 mL/min (>60); Glucose 165 mg/dL (74-106); Potassium 4.7 mmol/L (3.5-5.1); Sodium Level 137 mmol/L (136-145)
== END ==
PROVIDERS: Family Provider Family Medicine; PCP Family Medicine; Referring Provider Internal Medicine Nephrology; Visit Provider Internal Medicine Nephrology
DX: N18.3 Chronic kidney disease, stage 3 (moderate) (principal)
CPT/HCPCS: 36415; 80048

== ENCOUNTER 2018-12-11 06:54 | Day surgery (SDC) | payer MEDICARE, SELFPAY ==
[2018-12-11] VITALS (26 sets, daily range): BP systolic 103–156; BP diastolic 54–91; PULSE 62–89; RESP 15–29; TEMP 36.2–36.4; O2SAT 91–96; BMI 28.8; BMI 28.7
--- NOTE | 2018-12-11 08:50 | PCM.HP.BLA ---
<RomanEmerald cárdenas M - Last Filed: 12/11/18 08:50> History and Physical Date of Admission: 12/11/18 GLORIA PAUL, is a 83 F who presents here today for a heart cath for continued SOB. She has a history of coronary artery disease, hypertension, paroxysmal atrial fibrillation hyperlipidemia and diabetes. She had bypass surgery in March 2016. She had an SOTO to the LAD, SVG to the first diagonal, SVG to the obtuse marginal. Prior to her bypass surgery she was in [facility] for a CVA- residual symptoms per pt have resolved. Patient was in our office in August of this year with concerns over shortness of breath. She had a stress test which was negative for ischemia but with her continued concerns over shortness of breath we were in the process of scheduling a diagnostic heart catheterization. However her chest x-ray she was noted to have a nodule, she was evaluated by pulmonary, they did not feel that any further follow-up was needed with this. She is here today to further discuss proceeding with a diagnostic heart catheterization. Pt still continues to be SOB with exertion. She sts that this year at the [facility] she was not able to walk a length of a building needed to stop and rest, however she was able to walk to our office without issues. She also notes that she is fatigued easily. Intake VS: see chart Allergies latex Allergy (Verified 11/02/18 15:14) Rash adhesive tape Adverse Reaction (Verified 11/02/18 15:14) Rash Medications Lansoprazole [Prevacid] 30 mg PO DAILY 05/09/16 [History Confirmed 11/02/18] Levothyroxine [Synthroid] 88 mcg PO DAILY 04/25/17 [History Confirmed 11/02/18] Oxybutynin Chloride [Ditropan Xl] 10 mg PO DAILY 08/25/17 [History Confirmed 11/02/18] Aspirin E.C. [Ecotrin] 81 mg PO DAILY@0800 08/30/17 [History Confirmed 11/02/18] Gabapentin [Neurontin] 300 mg PO BIDCM 30 Days #60 cap 09/08/17 [Rx Confirmed 11/02/18] Metoprolol Tartrate [Lopressor (beta brittany)] 50 mg PO BID 02/15/18 [History Confirmed 11/02/18] cholecalciferol (vitamin D3) 1,000 unit (25 mcg) tablet 1,000 unit PO .COMPLEX tab 02/23/18 [History Confirmed 11/02/18] diphenhydramine 25 mg-acetaminophen 500 mg tablet 2 tab PO QHS PRN 02/23/18 [History Confirmed 11/02/18] duloxetine 20 mg capsule,delayed release 20 mg PO DAILY cap 02/23/18 [History Confirmed 11/02/18] hydralazine 50 mg tablet 50 mg PO TID 90 Days #270 tab 02/23/18 [History Confirmed 11/02/18] isosorbide mononitrate ER 30 mg tablet,extended release 24 hr 30 mg PO DAILY #90 tab 03/23/18 [Rx Confirmed 11/02/18] atorvastatin 40 mg tablet 40 mg PO DAILY #90 tab 07/31/18 [Rx Confirmed 11/02/18] nitroglycerin 0.4 mg sublingual tablet 0.4 mg SUBLINGUAL .prn PRN tab 08/10/18 [History Confirmed 11/02/18] clopidogrel 75 mg tablet 75 mg PO DAILY #30 tab 09/08/18 [Rx Confirmed 11/02/18] lisinopril 20 mg tablet 20 mg PO DAILY 11/02/18 [History Confirmed 11/02/18] metformin ER 500 mg tablet,extended release 24hr 500 mg PO BID tab 11/02/18 [History Confirmed 11/02/18] [facility] Medical History Carotid stenosis, left (Acute) Debility (Acute) Chronic renal failure, stage 3 (moderate) (Chronic) Hyperlipidemia (Chronic) Other ocean transportation intermediary (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 (Chronic) TIA (transient ischemic attack) (Chronic) Angina pectoris (Chronic) Obstructive sleep apnea (Chronic) Postlaminectomy syndrome of lumbar region (Chronic) Lumbosacral radiculopathy (Chronic) Diabetes mellitus, type 2 (Chronic) Hypertension (Chronic) History of stroke (Chronic) Fibromyalgia (Chronic) GERD (Chronic) Hypothyroidism (Chronic) Renal cancer (Chronic) CAD (coronary artery disease) (Chronic) Chest pain (Acute) Dyspnea on exertion (Acute) Edema (Acute) Fatigue (Acute) Shortness of breath (Acute) Surgical History 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) History of back surgery (Resolved) History of hysterectomy (Resolved) History of knee replacement procedure of right knee (Resolved) History of right inguinal hernia repair (Resolved) Family History Father Heart disease Mother Breast cancer Diabetes Heart disease Social History (Updated 11/03/18 @ 17:51 by JUAN FRANCISCO Monroe) Smoking Status: Never smoker alcohol intake: never caffeine: No ROS Const Const: Positive for fatigue; negative for weakness, fever(s) or headache(s) Eyes Eyes: Negative for blind spots, loss of peripheral vision or transient loss of vision ENT ENT: Negative for headache(s) Cardio Chest Pain: Yes Palpitations: No Edema: Bilateral Muscle aches with walking: None Resp Respiratory: Positive for SOB with activity; negative for SOB at rest, SOB orthopnea\SOB lying down or Cough GI GI: Negative nausea, vomiting, heartburn or vomiting blood/hematemesis : Negative for hematuria Musc Musc: Negative for muscle aches/ myalgia Neuro Neuro: Negative for headache(s) or weakness Kali Hematologic/Lymphatic: Negative for easy bleeding Endo Endo: Positive for fatigue Cardiology Exam Const Appearance: cooperative, no acute distress and well developed Orientation: alert, awake and oriented x3 Head Head: normocephalic and atraumatic Mouth: moist mucous membranes Eyes General: appearance normal, both eyes and all related structures Conjunctivae: conjunctivae normal Pupils: PERRL EOM: EOM intact bilaterally Neck Neck: normal visual inspection, no lymphadenopathy and no JVD Carotids: Negative bruit Neck Mass: Negative Neck mass Chest Chest inspection: normal inspection of the chest and symmetric chest movement Auscultation: Bilateral: Clear to Auscultation Cardio Palpation: normal PMI Rate: regular rate Rhythm: regular rhythm Heart sounds: S1 normal and S2 normal; negative rub, gallop or murmur GI GI: normal to inspection, soft, no hepatosplenomegaly and bowel sounds present; negative tender Neuro General: alert, awake, oriented x3, CN's II-XI intact bilaterally and moves all extremities Extremities Pulses: Normal: Right Posterior Tibial Pulse, Left Posterior Tibial Pulse, Right Radial Pulse, Left Radial Pulse Lower Extremity Edema: None: Bilateral Psych Psychological: normal affect Assessment & Plan 1. Coronary artery disease involving [place] coronary artery of [place] heart without angina pectoris I25.10 CABG X 3, SOTO to LAD, SVG to 1st diagonal & SVG to obtuse marginal @ summa 04/08/16 Plan With patient's continued shortness of breath would like to proceed with a diagnostic heart catheterization. We will follow-up with patient accordingly after. 2. Essential hypertension I10 Plan Blood pressure is well controlled on current medications, we do not recommend any changes at this time. 3. Pure hypercholesterolemia E78.00 Plan Patient will continue with current medical management 4. Chronic renal failure, stage 3 (moderate) N18.3 Plan Patient is establishing with nephrology per PCP. <Galileo Uriostegui - Last Filed: 12/11/18 09:27> History and Physical Addendum: Date: 12-11-18 I have re-examined the patient. There are no clinical changes since date of exam. This note was generated using a voice recognition system and there may be incorrect words, spelling or punctuation that were not noted when reviewing the office note prior to saving.
--- NOTE | 2018-12-11 11:27 | NURSING ---
DR SAMUELS ORDERS THAT THE INTEGRILLIN DRIP BE DC'D AT 1300
--- NOTE | 2018-12-11 11:55 | PCM.DC.CCA ---
Discharge Diet: Low fat/ Low Cholesterol Discharge Activity: Return to Normal Activity May shower in (days): 1 Lifting Restrictions: 10 pounds and also avoid any pushing or pulling for 3 days after your test. Call your doctor if your incision/area has: Continuous Slow Oozing, Sudden Increased Bleeding, Increased Pain/ Swelling, Increased Redness, Foul Smelling Discharge, Swelling at the incision site Call your doctor if you observe: Fever of 101 or Higher, Shortness of breath, Chest pain Remove Dressing in (days):: 1 Cleanse incision/area with: Soap & Water Additional Dressing/Incision Instructions:: Keep the dressing (bandage) on until the next morning. You may then shower, but do not take a tub bath for 5 days after your test. It is normal to have some tenderness and discomfort at the puncture site. Sometimes bruising also occurs. However, if pain, numbness, or coldness occurs below the puncture site (in your leg, toes, arms or fingers) call your doctor at once. You may have a small, marble sized knot at the puncture site. This is normal. Do not rub it. It will go away in 4-6 weeks. Bleeding can occur from the area where the puncture was done. Blood may spurt or drip from the site. If blood spurts, apply pressure right away to stop bleeding and call 911. Although rare, bleeding into the tissue (hematoma) can also occur. If this happens, a large, firm area goose egg under the skin will appear. If any of these occur, lie down as flat as you can and have someone apply firm pressure to the cath site with a gauze pad or a clean washcloth for 10-15 minutes. Call 911 or go to the Emergency Department. Additional Instructions: You can not stop you Plavix for at least one year. Allergies/Adverse Reactions: Allergies latex Allergy (Verified 11/02/18 15:14) Rash adhesive tape Adverse Reaction (Verified 11/02/18 15:14) Rash Medications to take at Discharge Lansoprazole [Prevacid] 30 mg PO DAILY 05/09/16 Levothyroxine [Synthroid] 88 mcg PO DAILY 04/25/17 Oxybutynin Chloride [Ditropan Xl] 10 mg PO DAILY 08/25/17 Aspirin E.C. [Ecotrin] 81 mg PO DAILY@0800 08/30/17 Gabapentin [Neurontin] 300 mg PO BIDCM 30 Days #60 cap 09/08/17 Metoprolol Tartrate [Lopressor (beta brittany)] 50 mg PO BID 02/15/18 cholecalciferol (vitamin D3) 1,000 unit (25 mcg) tablet 1,000 unit PO .COMPLEX tab 02/23/18 diphenhydramine 25 mg-acetaminophen 500 mg tablet 2 tab PO QHS PRN 02/23/18 duloxetine 20 mg capsule,delayed release 20 mg PO DAILY cap 02/23/18 hydralazine 50 mg tablet 50 mg PO TID 90 Days #270 tab 02/23/18 isosorbide mononitrate ER 30 mg tablet,extended release 24 hr 30 mg PO DAILY #90 tab 03/23/18 atorvastatin 40 mg tablet 40 mg PO DAILY #90 tab 07/31/18 nitroglycerin 0.4 mg sublingual tablet 0.4 mg SUBLINGUAL .prn PRN tab 08/10/18 lisinopril 20 mg tablet 20 mg PO DAILY 11/02/18 metformin ER 500 mg tablet,extended release 24hr 1,000 mg PO BID tab 11/02/18 Primary Care Physician: Fernando Kong MD [Primary Care Provider] - Test Results: Test results from this visit will be discussed in further detail at your follow-up appointment, if applicable. Please Follow Up With: Emerald Roman PA When: 01/01 at 0930 Cardiac Rehabilitation Info Cardiac Rehabilitation Program Information: Cardiac Rehabilitation is important for patients like you who are recovering from a heart problem. Cardiac rehabilitation programs are recognized as integral to the continued care of the patient with coronary heart disease. The cardiac rehabilitation program is designed to optimize a patient's physical, psychological, and social functioning. Health respiratory care assistant work in cardiac rehabilitation programs and assist you with getting the treatments you need to get stronger and healthier - like exercise, healthy eating habits, and medications. Cardiac rehabilitation has been show to help people with heart problems live longer and have better life enjoyment than people who do not go to cardiac rehabilitation. Please contact the Cardiac Rehabilitation Program at [facility] at in two weeks if you have not heard from them.
--- NOTE | 2018-12-11 12:30 | EKG12_ITS ---
Test Reason : SOB Blood Pressure : / mmHG Vent. Rate : 074 BPM Atrial Rate : 074 BPM P-R Int : 194 ms QRS Dur : 078 ms QT Int : 390 ms P-R-T Axes : 043 019 043 degrees QTc Int : 432 ms Normal sinus rhythm T wave abnormality, consider inferior ischemia Abnormal ECG Confirmed by LAURA BENITEZ, CARRIE ([id number]), book or script editor SAMI FORTUNE ([id number]) on 12/22/2018 2:26:15 PM Referred By: Galileo Uriostegui Confirmed By:CARRIE SANCHEZ MD
--- NOTE | 2018-12-11 12:45 | CASEMGMT ---
RUTHIE PINZON Note: Intro role of CM to patient in room. Pt states she is generally independent, no DME use. is able to drive to f/u. [employer] savings card given to pt and discussed. No dc needs identified @ this time. RUTHIE PINZON let pt know to notify CM if concerns re: dc arise. Ad HENDRICKS BSN ACM
[2018-12-11 13:15] LABS: Bedside Glucose 169 mg/dL (70-110)
[2018-12-11 13:15] LABS: ACT Activated Clotting Time 175 sec (74-137)
--- NOTE | 2018-12-11 13:23 | CRPH1.INSTRU ---
General Education CAD and cardiac anatomy and function:: Patient communicates acknowledgment Explanation of diagnoses and procedures:: Patient communicates acknowledgment Antiplatelet therapy: Patient communicates acknowledgment Proper use of NTG-SL: Not instructed Emergency procedures and activation of EMS: Patient communicates acknowledgment Compliance of all prescribed medications: Patient communicates acknowledgment Smoking Nicotine/Smoking Response Code:: Patient communicates acknowledgment Dyslipidemia Dyslipidemia Response Code:: Patient communicates acknowledgment Overweight/Obesity Patient Overweight/Obesity Risk Factors Are:: Overweight = 26-29 Recommendations Include:: Weight loss of 5-10%, Reduced calorie diet, Exercise 5-7 times/week Overweight/Obesity:: Patient communicates acknowledgment Hypertension Hypertension:: Patient communicates acknowledgment Heart Disease Heart Disease Response Code:: Patient communicates acknowledgment Diabetes Patient Diabetes Risk Factors Are:: Elevated blood sugars Recommendations Include:: Maintain fasting blood sugars 70-110 md/dL, Maintain HgbA1c of 6% or less, Monitor blood sugar as prescribed, Diabetic dietary guidelines, Decrease/maintain body weight Diabetes:: Patient communicates acknowledgment Metabolic Syndrome Metabolic Syndrome Response Code:: Patient communicates acknowledgment Sedentary Sedentary Response Code:: Patient communicates acknowledgment Stress Stress Response Code:: Patient communicates acknowledgment
--- NOTE | 2018-12-11 13:24 | CRPHASE1 ---
Patient Communication PHII Cardiac Rehab Discussed with Patient:: Yes Guide to Cardiac Rehab Given to Patient:: Yes Cardiac Rehab Facility Choice List Given to Patient:: Yes - chooses [facility] Choice Program [facility] CR PHII:: Communication Given to CR, Refer to [facility] Home Energy Rater:: Lisa Lowry - . Refer Phase II Cardiac Rehab:: Yes Sessions:: 36 sessions - 3 days/wk, 12 weeks Risk Factors/Lifestyle Hx Hypertension: Yes Hx Diabetes Mellitus Type 2: Yes Hx Dyslipidemia: Yes Hx Obesity: Yes Height: 1.6 m Weight:: 73.482 kg BMI: 28.7 Family History: Family History (Last Reviewed 11/03/18 @ 17:48 by JUAN FRANCISCO Monroe) Father Heart disease Mother Breast cancer Diabetes Heart disease Phase I Education Given On:: [place], Nutrition, Antiplatelet medication, CHF, Smoking cessation, Diabetes - Type I, Diabetes - Type II Issues Affecting Care:: None Knowledge of Condition:: Yes Learning Preferences: Verbal, Written, Audio/Visual, Demonstration Hospital Course Cardiac Cath Date:: 12/11/18 Medical/Surgical History Diabetes Type II:: Yes Hypertension:: Yes Dyslipidemia:: Yes PTCA:: Yes Cardiac Rehabilitation Info Cardiac Rehabilitation Program Information: Cardiac Rehabilitation is important for patients like you who are recovering from a heart problem. Cardiac rehabilitation programs are recognized as integral to the continued care of the patient with coronary heart disease. The cardiac rehabilitation program is designed to optimize a patient's physical, psychological, and social functioning. Health health care marketing manager work in cardiac rehabilitation programs and assist you with getting the treatments you need to get stronger and healthier - like exercise, healthy eating habits, and medications. Cardiac rehabilitation has been show to help people with heart problems live longer and have better life enjoyment than people who do not go to cardiac rehabilitation. Please contact the Cardiac Rehabilitation Program at [facility] at in two weeks if you have not heard from them.
--- NOTE | 2018-12-11 14:05 | CL.D_ITS ---
Patient Name: GLORIA PAUL Study Date: 12/11/2018 Performing: Galileo Uriostegui MD Ht: 63 inches 160.02 cm : 1935 Wt: 157.2 lbs 71.21 kg Age: 83 Gender: female BSA: 1.74 PROCEDURE(S) PERFORMED AS98-BVT/COR/CABG [id number] W OR WO PTCA, SINGLE CORONARY ARTERY CLINICAL PROFILE AND INDICATIONS Indications: Suspected CAD Heart Failure: None Stress/Imaging Date: 08/25/2018Stress Test with SPECT MPI: Negative Angina Classification Anginal Classification w/in 2 Weeks: CCS III CAD Presentations: Other: Dyspnea on exertion / angina pectoris equivalent CONCLUSIONS Normal Left Ventricular End Diastolic Pressure Tribe Multivessel CAD SOTO to LAD: patent SVG to DX1: patent SVG to OM1: occluded RECOMMENDATIONS Risk factor modification Medical therapy Referred for immediate PCI DESCRIPTION OF PROCEDURE The patient arrived to the procedure lab. The risks and benefits of the procedure as well as a full d escription of our services here and current unavailability of surgical backup were fully explained to the patient and/or their significant other prior to the catheterization. The Timeout was completed, verifying the correct patient and procedure. The patient's procedural site was prepped and draped in the usual fashion. Local anesthetic was given subcutaneously to right groin region with Lidocaine 2%. Using a modified Seldinger technique, arterial access was obtained via the right femoral artery, a 4 Fr sheath was inserted Left Coronary Artery selective angiography was performed in multiple views us ing a 4 Fr. JL5 catheter. Right Coronary Artery selective angiography was then performed in multiple views using a 4 Fr. 3DRC catheter. Left internal mammary artery graft to the LAD selective angiograph y was performed in multiple views using a 4 Fr. JR4 catheter. Saphenous Vein graft to the DIAG selective angiography was performed in multiple views using a 4 Fr. LCB catheter. LV to AO pull back pressures were then recorded.Contrast was injected through the sheath and the Right Iliac and Fe moral artery were assessed for possible closure device.The arterial sheath was exchanged for 6fr 11cm sheath. The arterial sheath was sutured in place and capped CORONARY ANGIOGRAPHY DOMINANCE: Right Dominant LEFT HEART ASSESSMENT Left Ventricular Ejection Fraction: Not assessed Normal Left Ventricular End Diastolic Pressure LVEDP: 9 mmHg LEFT MAIN: proximal: 25 % Stenosis LEFT ANTERIOR DESCENDING ARTERY: PROX LAD: Moderate calcification, eccentric: 85 % Stenosis MID LAD: to distal vessel: fills from competitive flow / predominantly SOTO graft flow DIAGONAL 1: Mid - fills from competitive flow / predominantly SVG graft flow CIRCUMFLEX ARTERY: PROX CIRC: 50 % Stenosis MID CIRC: long: diffuse: 85 % Stenosis OM 1: Proximal - fills from antegrade flow RIGHT CORONARY ARTERY: Mild luminal irregularities GRAFTS: SOTO graft to the Mid LAD is patent with no angiographically significant appearing disease distal to the graft attachment Saphenous Vein graft to the 1st Diagonal is patent with no angiographically significant appearing dis ease distal to the graft attachment Saphenous Vein graft to the 1st OM is totally occluded COMPLICATIONS No Complications PROCEDURE MEDICATIONS Versed 1 mg IV Versed 1 mg IV Fentanyl 50 mcg IV Oxygen: 2 L/min via nasal cannula Baby Aspirin (81mg) 1 Tabs PO 12/11/2018 08:23:10 Brilinta 180 mg PO @ 12/11/2018 10:55:29 Heparin 5000 unit(s) IV 12/11/2018 11:00:52 SUMMARY OF HEMODYNAMIC DATA Time AIR REST ECG 08:21:06 AO 166/76 (114) SA 09:41:05 LV 175/-24, 12 10:17:43 LV 178/-23, 9 10:17:50 LVp 178/-24, 9 10:17:55 AOp 175/63 (109) 10:18:00 Signed By Galileo Uriostegui MD On 12/11/2018 14:04:42 Galileo Uriostegui MD
[2018-12-11] MEDS: Acetaminophen 325 MG Tablet 650 MG PO (14:06)
[2018-12-11] MEDS: Ondansetron 4 MG/2 ML Vial IV (14:06)
[2018-12-11] MEDS: hydrALAZINE 50 MG Tablet PO ×2 (14:11→21:18)
[2018-12-11 14:26] LABS: ACT Activated Clotting Time 158 sec (74-137)
--- NOTE | 2018-12-11 15:02 | CL.I_ITS ---
Patient Name: GLORIA PAUL Study Date: 12/11/2018 Performing: Curtis Lowry MD Ht: 63 inches 160.02 cm : 1935 Wt: 157.2 lbs 71.21 kg Age: 83 Gender: female BSA: 1.74 PROCEDURE(S) PERFORMED [id number] W OR WO PTCA, SINGLE CORONARY ARTERY CLINICAL PROFILE AND CO-MORBIDITIES Indications: Suspected CAD Heart Failure: None Stress/Imaging Date: 08/25/2018 Stress Test with SPECT MPI: Negative Angina Classification Anginal Classification w/in 2 Weeks: CCS III CAD Presentations: Other: Dyspnea on exertion / angina pectoris equivalent CONCLUSIONS Successful PCI with Drug eluting stent and PTCA to the mLCx RECOMMENDATIONS Follow up with Dr. Moody Enrique for at least 12 months DESCRIPTION OF PROCEDURE The patient arrived to the procedure lab. The risks and benefits of the procedure as well as a full d escription of our services here and current unavailability of surgical backup were fully explained to the patient and/or their significant other prior to the catheterization. The Timeout was completed, verifying the correct patient and procedure. The patient's procedural site was prepped and draped in the usual fashion. Local anesthetic was given subcutaneously to right groin region with Lidocaine 2% Using a modified Seldinger technique,arterial access was obtained via the right femoral artery, a 4Fr sheath was inserted Left Coronary Artery selective angiography was performed in multiple views using a 4 Fr. JL5 catheter. Right Coronary Artery selective angiography was then performed in multiple vie ws using a 4 Fr. 3DRC catheter. Left internal mammary artery graft to the LAD selective angiography w as performed in multiple views using a 4 Fr. JR4 catheter. Saphenous Vein graft to the DIAG selective angiography was performed in multiple views using a 4 Fr. LCB catheter. LV to AO pull back pressures were then recorded.The images were reviewed and options discussed. A decision was then made to proceed with an Intervention, IVUS or other adjunct procedure. Arterial sheath was exchanged for a 6 Fr 45cm Sheath. XB 3.5 Guide catheter was inserted and enga ged into the LCA. BMW Guide wire was advanced to the Circumflex. Emerge 2.00x20 Balloon catheter was inserted. PTCA balloon inflated at 10 atms for 12 secs. PTCA balloon inflated at 10 atms for 10 secs. PTCA balloon inflated at 10 atms for 20 secs. Angiogram performed post balloon dilatation. Synergy 2 .25x32 Drug Eluting stent was inserted. Angiogram performed post stent deployment. Contrast was injec stone through the sheath and the Right Iliac and Femoral artery were assessed for possible closure johnny ce. The arterial sheath was exchanged for 6fr 11cm sheath. The arterial sheath was sutured in place and capped INTERVENTION INFORMATION LESION SITE: Circumflex (Mid) Lesion Complexity: High/C, chronic total occlusion: No, lesion at bifurcation: No, thrombus present: No, lesion length: 31 mm, culprit lesion: Yes, Previously treated lesion: No Pre Stenosis: 85 % Pre intervention ULYSSES flow: 3 PROCEDURE: Drug Eluting Stent with pre dilatation. Post Stenosis: 0 % Post intervention ULYSSES flow: 3 Lesion Devices: Clemens .014 BMW [place] Straight 190cm Cardinal 6 Fr XB3.5 100cm Guide Catheter Mayito Sci EMERGE MR 2.00x20 BALLOON Mayito Sci Synergy MR RAMONA 2.25x32 COMPLICATIONS No Complications PROCEDURE MEDICATIONS Versed 1 mg IV Versed 1 mg IV Fentanyl 50 mcg IV Oxygen: 2 L/min via nasal cannula Baby Aspirin (81mg) 1 Tabs PO 12/11/2018 08:23:10 Brilinta 180 mg PO @ 12/11/2018 10:55:29 Heparin 5000 unit(s) IV 12/11/2018 11:00:52 SUMMARY OF HEMODYNAMIC DATA Time AIR REST ECG 08:21:06 AO 166/76 (114) SA 09:41:05 LV 175/-24, 12 10:17:43 LV 178/-23, 9 10:17:50 LVp 178/-24, 9 10:17:55 AOp 175/63 (109) 10:18:00 Signed By Curtis Lowry MD On 12/11/2018 15:01:45 Curtis Lowry MD
[2018-12-11 17:36] LABS: Bedside Glucose 154 mg/dL (70-110)
[2018-12-11] MEDS: Gabapentin 300 MG Capsule PO (17:36)
[2018-12-11] MEDS: Metoprolol Tartrate 50 MG Tablet PO (21:08)
[2018-12-11] MEDS: Atorvastatin Calcium 40 MG Tablet PO (21:10)
[2018-12-11] MEDS: TICAGRELOR 90 MG TABLET PO (21:18)
[2018-12-12] VITALS (15 sets, daily range): BP systolic 115–160; BP diastolic 55–97; PULSE 56–89; RESP 15–26; TEMP 36.6–36.8; O2SAT 93–97
[2018-12-12] MEDS: hydrALAZINE 50 MG Tablet PO (05:33)
[2018-12-12] MEDS: Levothyroxine 88 MCG Tablet PO (05:33)
[2018-12-12 05:43] LABS: Hematocrit 37.8 % (37-47); Hemoglobin 12.2 g/dL (12.0-15.0); Mean Corp Hgb Conc 32.3 g/dL (32-36); Mean Corpuscular Hgb 29.7 pg (27.0-32.0); Mean Platelet Vol. 11.4 fl (6.2-12.0); Platelet Count 200 K/mm3 (150-450); RBC Distribution Width CV 13.2 % (11.6-14.6); RBC Distribution Width SD 44.3 fl (35.1-43.9); Red Blood Count 4.11 M/mm3 (4.2-5.4); White Blood Count 9.1 K/mm3 (4.4-11.0)
[2018-12-12 06:13] LABS: ALB/GLOB Ratio 0.9 RATIO (0.9-2.4); AST(SGOT) 14 U/L (15-37); Alanine Aminotransfer ALT/SGPT 17 U/L (13-56); Albumin, Serum 3.4 g/dL (3.2-5.0); Alkaline Phosphatase 63 U/L (45-117); Anion Gap 11 (5-15); BUN 27 mg/dL (7-18); BUN/Creat Ratio 18.2 RATIO (10-20); Calcium,Total 8.2 mg/dL (8.5-10.1); Chloride 105 mmol/L (98-107); Creatinine, Serum 1.48 mg/dL (0.55-1.02); EST Glomerular Filtration Rate 36 mL/min (>60); Est Glom Filt Rate - Afr Amer 44 mL/min (>60); Estimated Creatinine Clearance 24.66 ml/min; Globulin 3.9 g/dL (2.2-4.2); Glucose 254 mg/dL (74-106); Potassium 4.1 mmol/L (3.5-5.1); Protein, Total 7.3 g/dL (6.4-8.2); Sodium Level 140 mmol/L (136-145)
[2018-12-12 08:26] LABS: Bedside Glucose 279 mg/dL (70-110)
[2018-12-12] MEDS: Pantoprazole Sodium 40 MG Tablet PO (08:42)
[2018-12-12] MEDS: Metoprolol Tartrate 50 MG Tablet PO (08:43)
[2018-12-12] MEDS: Isosorbide Mononitrate 30 MG Tablet PO (08:44)
[2018-12-12] MEDS: DULoxetine Hcl 20 MG Capsule PO (08:44)
[2018-12-12] MEDS: Aspirin E.C. 81 MG Tablet PO (08:45)
[2018-12-12] MEDS: Insulin Lispro 100 UNIT/ML INSULN.PEN SC (08:45)
[2018-12-12] MEDS: Gabapentin 300 MG Capsule PO (08:45)
[2018-12-12] MEDS: Tolterodine Tartrate 2 MG CAP.SA PO (08:45)
[2018-12-12] MEDS: Lisinopril 20 MG Tablet PO (08:45)
[2018-12-12] MEDS: TICAGRELOR 90 MG TABLET PO (08:45)
--- NOTE | 2018-12-12 10:00 | EKG12_ITS ---
Test Reason : AM EKG Blood Pressure : / mmHG Vent. Rate : 069 BPM Atrial Rate : 069 BPM P-R Int : 200 ms QRS Dur : 074 ms QT Int : 426 ms P-R-T Axes : 045 012 035 degrees QTc Int : 456 ms Normal sinus rhythm Normal ECG Confirmed by CHERYL BENITEZ, GALILEO ([id number]), sound editor KATHI TSE ([id number]) on 12/16/2018 11:26:42 AM Referred By: Galileo Luna Confirmed By:GALILEO LUNA MD
--- NOTE | 2018-12-12 11:17 | DCINST_ITS ---
- Discharge Diagnoses Current Active Problems: CAD status post CABG now status post PCI Reason(s) for Visit for Discharge Instructions: Shortness of breath/dyspnea. CAD status post CABG. Status post PCI You will use the following diet at home:: Calorie/Carbohydrate Controlled (specify 1200, 1400, etc) - 1800-calorie, Cardiac Your food should be the consistency of: Regular Discharge Activity: Return to Normal Activity May shower in (days): 1 May resume sexual activity in: 2 weeks Weight Bearing Status: - - Avoid heavy exertional activity: 1 week minimal Call your doctor if your incision/area has: Continuous Slow Oozing, Sudden Increased Bleeding, Increased Pain/ Swelling, Increased Redness, Foul Smelling Discharge, Swelling at the incision site Call your doctor if you observe: Fever of 101 or Higher, Shortness of breath, Chest pain Remove Dressing in (days):: 1 Cleanse incision/area with: Soap & Water Additional Dressing/Incision Instructions:: Keep the dressing (bandage) on until the next morning. You may then shower, but do not take a tub bath for 5 days after your test. It is normal to have some tenderness and discomfort at the puncture site. Sometimes bruising also occurs. However, if pain, numbness, or coldness occurs below the puncture site (in your leg, toes, arms or fingers) call your doctor at once. You may have a small, marble sized knot at the puncture site. This is normal. Do not rub it. It will go away in 4-6 weeks. Bleeding can occur from the area where the puncture was done. Blood may spurt or drip from the site. If blood spurts, apply pressure right away to stop bleeding and call 911. Although rare, bleeding into the tissue (hematoma) can also occur. If this happens, a large, firm area goose egg under the skin will appear. If any of these occur, lie down as flat as you can and have someone apply firm pressure to the cath site with a gauze pad or a clean washcloth for 10-15 minutes. Call 911 or go to the Emergency Department. Allergies/Adverse Reactions: Allergies latex Allergy (Verified 11/02/18 15:14) Rash adhesive tape Adverse Reaction (Verified 11/02/18 15:14) Rash Medications to take at Discharge Lansoprazole [Prevacid] 30 mg PO DAILY 05/09/16 Levothyroxine [Synthroid] 88 mcg PO DAILY 04/25/17 Oxybutynin Chloride [Ditropan Xl] 10 mg PO DAILY 08/25/17 Aspirin E.C. [Ecotrin] 81 mg PO DAILY@0800 08/30/17 Gabapentin [Neurontin] 300 mg PO BIDCM 30 Days #60 cap 09/08/17 Metoprolol Tartrate [Lopressor (beta brittany)] 50 mg PO BID 02/15/18 cholecalciferol (vitamin D3) 1,000 unit (25 mcg) tablet 1,000 unit PO .COMPLEX tab 02/23/18 diphenhydramine 25 mg-acetaminophen 500 mg tablet 2 tab PO QHS PRN 02/23/18 duloxetine 20 mg capsule,delayed release 20 mg PO DAILY cap 02/23/18 hydralazine 50 mg tablet 50 mg PO TID 90 Days #270 tab 02/23/18 isosorbide mononitrate ER 30 mg tablet,extended release 24 hr 30 mg PO DAILY #90 tab 03/23/18 atorvastatin 40 mg tablet 40 mg PO DAILY #90 tab 07/31/18 nitroglycerin 0.4 mg sublingual tablet 0.4 mg SUBLINGUAL .prn PRN tab 08/10/18 lisinopril 20 mg tablet 20 mg PO DAILY 11/02/18 metformin ER 500 mg tablet,extended release 24hr 1,000 mg PO BID tab 11/02/18 Ticagrelor [Brilinta] 90 mg PO BID #60 tab 12/12/18 The following prescriptions were given: Ticagrelor [Brilinta] 90 mg PO BID #60 tab Transmission Status: Pending to [facility] Primary Care Physician: Fernando Kong MD [Primary Care Provider] - Test Results: Test results from this visit will be discussed in further detail at your follow- up appointment, if applicable. Please Follow Up With: Emerald Roman PA When: 01/01 at 0930
--- NOTE | 2018-12-12 11:19 | DS.PCM_ITS ---
Discharge Date and Diagnosis Date of Admission: 12/11/18 Date of Discharge: 12/12/18 - Primary Discharge Diagnosis CAD status post CABG now status post PCI - Secondary Discharge Diagnosis Chronic Problems (Last Reviewed 11/03/18 @ 17:48 by JUAN FRANCISCO Monroe) Lung nodule (Chronic) Chronic renal failure, stage 3 (moderate) (Chronic) Hyperlipidemia (Chronic) Other director long term care (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 (Chronic) TIA (transient ischemic attack) (Chronic) Angina pectoris (Chronic) Obstructive sleep apnea (Chronic) 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) CABG X 3, SOTO to LAD, SVG to 1st diagonal & SVG to obtuse marginal @ summa 04/08/16 Postlaminectomy syndrome of lumbar region (Chronic) Lumbosacral radiculopathy (Chronic) Diabetes mellitus, type 2 (Chronic) Hypertension (Chronic) History of stroke (Chronic) Fibromyalgia (Chronic) GERD (Chronic) Hypothyroidism (Chronic) Renal cancer (Chronic) CAD (coronary artery disease) (Chronic) CABG X 3, SOTO to LAD, SVG to 1st diagonal & SVG to obtuse marginal @ summa 04/08/16 Hospital Course and Treatment Operations: None Procedures: Cardiac catheterization, - - Iliac intervention: PCI Summary of Care Provided: The patient is a 83 year old white female with a history of CAD status post CABG with progressive shortness of breath and dyspnea who presented for further evaluation with diagnostic cardiac catheterization. Diagnostic cardiac catheterization demonstrated underlying havasupai vessel disease, a patent SOTO to the LAD, a patent SVG graft to the diagonal branch, and an occluded SVG graft to the OM branch. The patient subsequently underwent PCI/stent of her havasupai LCx/OM system. The patient was monitored in the ICU overnight. She appeared to remain symptomatically and hemodynamically stable. It was felt the patient could be released home for continued outpatient cardiovascular follow-up. [] Subjective: The patient is awake and alert and in no acute distress. - Physical Exam Vitals/I&O's: Vital Signs Temp Pulse Resp BP Pulse Ox 98.3 F 63 26 H 133/59 H 96 12/12/18 04:00 12/12/18 10:00 12/12/18 10:00 12/12/18 10:00 12/12/18 10:14 Oxygen Delivery Method Room Air Weight: 165 lb 5.547 oz Body Mass Index (BMI) 28.8 Finger Stick Blood Glucose 93 Intake and Output for Last 24 Hours 12/10/18 12/11/18 12/12/18 23:59 23:59 23:59 Intake Total 480 / 480 Output Total 150 / 900 1000 / 1000 Balance -150 / -660 -520 / -520 General: Cooperative, No apparent distress HEENT: Atraumatic, PERRLA, EOMI, Normocephalic Oral: Moist Mucosa Neck: Supple, No JVD Lungs: Clear to auscultation Cardiovascular: Regular rate, Normal S1, Normal S2 Abdomen: Bowel Sounds Present, Soft, Non Tender Extremities: No clubbing, No cyanosis, No edema Neurological: Neuro grossly intact Psych/Mental Status: Normal Affect Comment: Right femoral artery area: Pulse 2+/4+: No obvious hematoma: No obvious bru Laboratory Results 12/11/18 13:05: Activated Clotting Time 175 H 12/11/18 13:09: POC Glucose 169 H 12/11/18 14:12: Activated Clotting Time 158 H 12/11/18 17:31: POC Glucose 154 H 12/12/18 05:30: WBC 9.1, RBC 4.11 L, Hgb 12.2, Hct 37.8, MCV 92.0, MCH 29.7, MCHC 32.3, RDW Std Deviation 44.3 H, RDW Coeff of Laquita 13.2, Plt Count 200, MPV 11.4 12/12/18 05:30: Sodium 140, Potassium 4.1, Chloride 105, Carbon Dioxide 24.0, Anion Gap 11, BUN 27 H, Creatinine 1.48 H, Estim Creat Clear Calc 24.66, Est GFR (MDRD) Af Amer 44 L, Est GFR (MDRD) Non-Af 36 L, BUN/Creatinine Ratio 18.2, Glucose 254 H, Calcium 8.2 L, Total Bilirubin 0.20, AST 14 L, ALT 17, Alkaline Phosphatase 63, Total Protein 7.3, Albumin 3.4, Globulin 3.9, Albumin/Globulin Ratio 0.9 12/12/18 08:20: POC Glucose 279 H Current Medications Acetaminophen (Tylenol) 650 mg PO Q6H PRN PRN PRN Reason: Pain Score 1-10/10 Last Admin: 12/11/18 14:06 Dose: 650 mg Documented by: Aspirin (Ecotrin) 81 mg PO DAILY@0800 [facility] Last Admin: 12/12/18 08:45 Dose: 81 mg Documented by: Atorvastatin Calcium (Lipitor) 40 mg PO DAILY@2200 [facility] Last Admin: 12/11/18 21:10 Dose: 40 mg Documented by: Atropine Sulfate () 0.5 mg IV UD PRN PRN Reason: HR <50 bpm Diphenhydramine HCl (Benadryl) 50 mg PO QHS PRN PRN PRN Reason: SLEEP Duloxetine HCl (Cymbalta) 20 mg PO DAILY [facility] Last Admin: 12/12/18 08:44 Dose: 20 mg Documented by: Gabapentin (Neurontin) 300 mg PO BIDCM [facility] Last Admin: 12/12/18 08:45 Dose: 300 mg Documented by: Heparin Sodium (Beef Lung) (Heparin 500 Unit/5 Ml (100/Ml)) 500 unit IV UD PRN PRN Reason: HEPARIN FLUSH Hydralazine HCl (Apresoline) 50 mg PO TID [facility] Last Admin: 12/12/18 05:33 Dose: 50 mg Documented by: Insulin Human Lispro (Humalog Kwikpen (Bkc)) 0 unit SC TIDAC [facility]; Protocol Last Admin: 12/12/18 08:45 Dose: 2 u Documented by: Isosorbide Mononitrate (Imdur) 30 mg PO DAILY [facility] Last Admin: 12/12/18 08:44 Dose: 30 mg Documented by: Labetalol HCl (Trandate) 5 mg IV X1 PRN PRN Reason: SBP > 160 when pulling sheath Stop: 12/13/18 12:21 Levothyroxine Sodium (Synthroid) 88 mcg PO DAILY@0600 [facility] Last Admin: 12/12/18 05:33 Dose: 88 mcg Documented by: Lisinopril (Zestril) 20 mg PO DAILY [facility] Last Admin: 12/12/18 08:45 Dose: 20 mg Documented by: Metoprolol Tartrate (Lopressor (Beta Pancho)) 50 mg PO BID [facility] Last Admin: 12/12/18 08:43 Dose: 50 mg Documented by: Nitroglycerin (Nitrostat) 0.4 mg SUBLINGUAL PRN PRN PRN Reason: PAIN SCORE 1-10/10 Pantoprazole Sodium (Protonix) 40 mg PO DAILY [facility] Last Admin: 12/12/18 08:42 Dose: 40 mg Documented by: Sodium Chloride () 500 ml IV BOLUS PRN PRN Reason: VASO-VAGAL PROTOCOL Ticagrelor (Brilinta) 90 mg PO BID [facility] Last Admin: 12/12/18 08:45 Dose: 90 mg Documented by: Tolterodine Tartrate (Detrol La) 2 mg PO DAILY [facility] Last Admin: 12/12/18 08:45 Dose: 2 mg Documented by: Discharge Diet: Low fat/ Low Cholesterol Discharge Activity: Return to Normal Activity May shower in (days): 1 May resume sexual activity in: 2 weeks Weight Bearing Status: - - Avoid heavy exertional activity: 1 week minimal Call your doctor if your incision/area has: Continuous Slow Oozing, Sudden Increased Bleeding, Increased Pain/ Swelling, Increased Redness, Foul Smelling Discharge, Swelling at the incision site Call your doctor if you observe: Fever of 101 or Higher, Shortness of breath, Chest pain Remove Dressing in (days):: 1 Cleanse incision/area with: Soap & Water Additional Dressing/Incision Instructions:: Keep the dressing (bandage) on until the next morning. You may then shower, but do not take a tub bath for 5 days after your test. It is normal to have some tenderness and discomfort at the puncture site. Sometimes bruising also occurs. However, if pain, numbness, or coldness occurs below the puncture site (in your leg, toes, arms or fingers) call your doctor at once. You may have a small, marble sized knot at the pun cture site. This is normal. Do not rub it. It will go away in 4-6 weeks. Bleeding can occur from the area where the puncture was done. Blood may spurt or drip from the site. If blood spurts, apply pressure right away to stop bleeding and call 911. Although rare, bleeding into the tissue (hematoma) can also occur. If this happens, a large, firm area goose egg under the skin will appear. If any of these occur, lie down as flat as you can and have someone apply firm pressure to the cath site with a gauze pad or a clean washcloth for 10-15 minutes. Call 911 or go to the Emergency Department. Home Medications: Medications to take at Discharge Lansoprazole [Prevacid] 30 mg PO DAILY 05/09/16 Levothyroxine [Synthroid] 88 mcg PO DAILY 04/25/17 Oxybutynin Chloride [Ditropan Xl] 10 mg PO DAILY 08/25/17 Aspirin E.C. [Ecotrin] 81 mg PO DAILY@0800 08/30/17 Gabapentin [Neurontin] 300 mg PO BIDCM 30 Days #60 cap 09/08/17 Metoprolol Tartrate [Lopressor (beta pancho)] 50 mg PO BID 02/15/18 cholecalciferol (vitamin D3) 1,000 unit (25 mcg) tablet 1,000 unit PO .COMPLEX tab 02/23/18 diphenhydramine 25 mg-acetaminophen 500 mg tablet 2 tab PO QHS PRN 02/23/18 duloxetine 20 mg capsule,delayed release 20 mg PO DAILY cap 02/23/18 hydralazine 50 mg tablet 50 mg PO TID 90 Days #270 tab 02/23/18 isosorbide mononitrate ER 30 mg tablet,extended release 24 hr 30 mg PO DAILY #90 tab 03/23/18 atorvastatin 40 mg tablet 40 mg PO DAILY #90 tab 07/31/18 nitroglycerin 0.4 mg sublingual tablet 0.4 mg SUBLINGUAL .prn PRN tab 08/10/18 lisinopril 20 mg tablet 20 mg PO DAILY 11/02/18 metformin ER 500 mg tablet,extended release 24hr 1,000 mg PO BID tab 11/02/18 Ticagrelor [Brilinta] 90 mg PO BID #60 tab 12/12/18 Following Prescrptions Were Given to Patient: Ticagrelor [Brilinta] 90 mg PO BID #60 tab Transmission Status: Pending to [facility] Primary Care Physician: Fernando Kong MD [Primary Care Provider] - Please Follow Up With: Emerald Roman PA When: 01/01 at 0930 Additional Instructions: You can not stop you Plavix for at least one year. Disposition: Home Minutes spent on discharge:: 45 Patient Condition:: Stable Medical Necessity - Tobacco Use Smoking Status: Smoker, status unknown Meaningful Use Info Meaningful Use Diagnoses (Choose all that apply): None applicable
== END 2018-12-12 11:19 | disposition home or self-care (01) ==
LOC: CLSP 06:56 → ICU 13:22
PROVIDERS: Specialist; Family Provider Family Medicine; PCP Family Medicine; Referring Provider Internal Medicine Cardiovascular Disease; Visit Provider Internal Medicine Cardiovascular Disease
DX: I25.10 Atherosclerotic heart disease of native coronary artery without angina pectoris (principal); R06.02 Shortness of breath; E78.00 Pure hypercholesterolemia, unspecified; N18.3 Chronic kidney disease, stage 3 (moderate); I12.9 Hypertensive chronic kidney disease with stage 1 through stage 4 chronic kidney disease, or unspecified chronic kidney disease; R91.1 Solitary pulmonary nodule; E78.5 Hyperlipidemia, unspecified; G47.33 Obstructive sleep apnea (adult) (pediatric); E03.9 Hypothyroidism, unspecified; K21.9 Gastro-esophageal reflux disease without esophagitis; Z95.1 Presence of aortocoronary bypass graft; E11.22 Type 2 diabetes mellitus with diabetic chronic kidney disease; F17.200 Nicotine dependence, unspecified, uncomplicated; Z86.73 Personal history of transient ischemic attack (TIA), and cerebral infarction without residual deficits; M54.17 Radiculopathy, lumbosacral region; M79.7 Fibromyalgia; M96.1 Postlaminectomy syndrome, not elsewhere classified; Z79.82 Long term (current) use of aspirin; Z79.84 Long term (current) use of oral hypoglycemic drugs; Z79.899 Other long term (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; Z95.5 Presence of coronary angioplasty implant and graft; Z91.040 Latex allergy status; Z85.9 Personal history of malignant neoplasm, unspecified
CPT/HCPCS: 80053; 82962; 85027; 85347; 92928; 93005; 93455; 99152; 99153; J7040; Q9967; C1725; C1769; C1874; C1887; C1894; C9600; J1327; J2405

== ENCOUNTER 2018-12-20 13:22 | Emergency (ER) | payer MEDICARE, SELFPAY ==
[2018-12-11 12:10] VITALS: BMI 28.8
[2018-12-11 13:27] VITALS: BMI 28.7
[2018-12-20 13:24] VITALS: BP 161/68; PULSE 78; RESP 17; TEMP 36.4; O2SAT 95; BMI 29.0
[2018-12-20 13:33] VITALS: BP 164/78; PULSE 76; RESP 17; O2SAT 94
[2018-12-20 13:34] VITALS: O2SAT 95
--- NOTE | 2018-12-20 13:44 | EKG12_ITS ---
Test Reason : POST PCI Blood Pressure : / mmHG Vent. Rate : 053 BPM Atrial Rate : 053 BPM P-R Int : 204 ms QRS Dur : 076 ms QT Int : 456 ms P-R-T Axes : 034 032 024 degrees QTc Int : 427 ms Sinus bradycardia with marked sinus arrhythmia Otherwise normal ECG When compared with ECG of 05-OCT-2018 21:31, Nonspecific T wave abnormality, worse in Anterior leads Nonspecific T wave abnormality no longer evident in Lateral leads Confirmed by ARVIND BENITEZ, SARAH ([id number]), publication editor WILY TIRADO ([id number]) on 12/29/2018 1:26:07 PM Referred By: CHERYL Confirmed By:ESTELA SAMUELS MD
--- NOTE | 2018-12-20 13:55 | RAD_ITS ---
STUDY: X-RAY CHEST REASON FOR EXAM: Female, 83 years old. Dyspnea. TECHNIQUE: PA and lateral views. COMPARISON: 10/23/2018. FINDINGS: A pair of dorsal epidural wires in the thoracic spine used for pain control are unchanged. Pedicular screws and rods in the lumbar spine. Calcified granuloma in the left upper lobe and in the right upper lobe and in the minor fissure. No suspicious infiltrates. There is no demonstrated pleural abnormality. Normal size heart. Calcified nodes in the right hilum. Normal mediastinum. Normal left hilum. Normal visualized pulmonary arteries. Atherosclerotic calcification of the left aortic knob. Minimal anterior wedging of the superior endplates of T7 and T8 vertebral bodies. Normal visualized ribs, clavicles, and shoulders. There is no demonstrated abnormality of the visualized soft tissue structures of the upper abdomen. RAD/Chest PA and Lateral IMPRESSION: 1. No acute cardiopulmonary pathology. 2. No significant interval change when compared to 10/23/2018. Electronically Signed: Omar Moreno MD at 14:19 EST , Service support ,
[2018-12-20 13:57] LABS: Absolute Lymphocyte Count 2.73 X10^3/uL (0.83-4.51); Absolute Neutrophil Count 9.5 X10^3/uL (2.0-7.7); Basophil% 0.7 % (0-1); Eosinophil# 0.36 X10^3/uL; Eosinophils% 2.6 % (0-5); Hematocrit 42.1 % (37-47); Hemoglobin 13.7 g/dL (12.0-15.0); Lymphocyte # 2.73 X10^3/ul (4.0); Lymphocyte % 19.8 % (19-41); Mean Corp Hgb Conc 32.5 g/dL (32-36); Mean Corpuscular Hgb 30.2 pg (27.0-32.0); Mean Corpuscular Volume 92.7 fL (81-99); Mean Platelet Vol. 11.8 fl (6.2-12.0); Monocyte% 7.3 % (0-10); NRBC Flagged by Analyzer 0 % (0-5); Neutrophil # 9.48 X10^3/uL (2.7-7.7); Neutrophil % 68.9 % (47-70); Platelet Count 270 K/mm3 (150-450); Red Blood Count 4.54 M/mm3 (4.2-5.4); White Blood Count 13.8 K/mm3 (4.4-11.0)
[2018-12-20 14:13] LABS: Anion Gap 13 (5-15); BUN 49 mg/dL (7-18); BUN/Creat Ratio 23.6 RATIO (10-20); Calcium,Total 8.8 mg/dL (8.5-10.1); Chloride 101 mmol/L (98-107); Creatinine, Serum 2.08 mg/dL (0.55-1.02); EST Glomerular Filtration Rate 24 mL/min (>60); Est Glom Filt Rate - Afr Amer 29 mL/min (>60); Estimated Creatinine Clearance 17.55 ml/min; Glucose 196 mg/dL (74-106); Potassium 4.1 mmol/L (3.5-5.1); Sodium Level 134 mmol/L (136-145)
[2018-12-20 14:38] VITALS: O2SAT 93
--- NOTE | 2018-12-20 14:53 | ED.VISSUMM ---
- ER Visit Summary Date of Service: 12/20/18 Chief Complaint: Shortness of breath History of Present Illness: The patient is a 83 F who presents the emergency department shortness of breath. Patient states that on December 11 postoperative day 9 she underwent PCI to the mid circumflex. She was placed on Brilinta. She states that the procedure took longer than normal and that when she went home she was on Brilinta and was feeling short of breath. States shortness of breath has continued and seems to be getting worse. She notes a cough though mild. No sputum production. No fevers or chills. History of chronic kidney disease. No chest pain. She does not wear home oxygen. She denies any complications at the surgical site. She tells me that she contacted on-call cardiology today who advised her to stop the Brilinta and to begin Plavix. tells me that they went to the pharmacy and the pharmacist told them that the Plavix will not help her short of breath so they came the emergency department. Physical Examination: Afebrile vital signs are stable Gen: Well-nourished well-developed Head: Normocephalic atraumatic Eyes: Perrl EOMI ENT: TMs clear no rhinorrhea moist mucous membranes Neck: Supple no lymphadenopathy no JVD nontender CVS: Regular rate rhythm no murmurs normal S1-S2 Respiratory: Patient seems to have a quite tachypnea but is not in any distress. Clear to auscultation bilaterally chest nontender Abdomen: Soft nontender nondistended normal bowel sounds no masses Back: Nontender Extremity: Nontender no edema Skin: Normal color no rash Neuro: alert orientated ?3 CN II-XII intact normal strength sensation reflexes gait cerebellar Psych: Normal affect normal mood Test Results: EKG is sinus with a rate of 74. Chest x-ray is negative. White count 13.8. BUN 49 creatinine 2.08. Troponin is negative. Emergency Department Course and Treatment: After results I spoke with Dr. Cee who is asked for a beta nitric peptide. He is also asked the patient received a dose of Lasix. BNP was normal at 32. I again spoke with Dr. Cee. Patient is to continue to stop her Brilinta. It is my impression that she had not taken the Plavix yet today but she took all 4 pills in addition to the Brilinta this morning. Patient to resume normal dosing of Plavix tomorrow which she already has a prescription of. She is to follow-up in the office or return if worsening or concerns. Impression: 1. Medication side effect (dyspnea) due to Brilinta This note was generated with [employer] software. It may contain incorrect words, spelling, and punctuation that were not noted in review of the chart prior to signing ED Disposition - Plan for ED Patient: Disposition: Home or Assisted Living Instructions: ED Dyspnea Referrals: Galileo Uriostegui MD [STAFF PHYSICIAN] - As soon as possible Additional Instructions: Tomorrow begin regular dosing of Plavix at 75 mg a day
[2018-12-20] MEDS: Furosemide 40 MG/4 ML Vial IV (15:19)
[2018-12-20 15:20] LABS: BNP,B-Type NATRIURETIC PEPTIDE 32.4 pg/mL (0-100)
[2018-12-20 15:24] VITALS: BP 136/74; PULSE 76; RESP 21; O2SAT 92
[2018-12-20 16:34] VITALS: BP 134/71; PULSE 81; RESP 22; O2SAT 93
== END 2018-12-20 16:34 | disposition home or self-care (01) ==
PROVIDERS: Emergency Provider Emergency Medicine; Family Provider Family Medicine; PCP Family Medicine
DX: R06.00 Dyspnea, unspecified (principal); T50.995A Adverse effect of other drugs, medicaments and biological substances, initial encounter; Y92.9 Unspecified place or not applicable; I25.10 Atherosclerotic heart disease of native coronary artery without angina pectoris; E11.9 Type 2 diabetes mellitus without complications; Z86.73 Personal history of transient ischemic attack (TIA), and cerebral infarction without residual deficits; Z95.1 Presence of aortocoronary bypass graft
CPT/HCPCS: 71046; 80048; 83880; 84484; 85025; 93005; 99285; A4216; J1940

== ENCOUNTER → 2018-12-24 11:41 | Outpatient (CLI) | payer MEDICARE, SELFPAY ==
[2018-12-11 12:10] VITALS: BMI 28.8
[2018-12-11 13:27] VITALS: BMI 28.7
[2018-12-20 13:24] VITALS: BMI 29.0
--- NOTE | 2018-12-24 11:52 | PCM.CR.ITP ---
General Information - General Information Admitting Diagnosis: PCI with stent - Education/Goals Barriers to Learning: None, Vision Impairment - wears glasses Individual Counseling: Initial Assessment: Abnormal Cholesterol Levels, High Blood Pressure, Overweight/Obesity, Diabetes, Family History of Heart Disease (under 65 years) Cardiac Rehabilitation Goals: 1. Maintain the individual as the primary focus of care. 2. To improve the patient's quality of life. 3. Identification of cardiac risk factors and provide cardiac risk factor management. 4. Enhance the psychosocial status of the patient. 5. Reconditioning enough to allow the patient to resume customary activities. 6. Control symptoms of cardiac disease Scale for measuring improvement of personal goals: Enter appropriate number in Comments. 2 = Unchanged. 3 = Slightly Better. 4 = Moderate Improvement. 5 = Met my Goal Personal Goals: Initial Assessment: Improve energy level, Improve knowledge of cardiac disease, Improve muscle strength and endurance, Improve diet and eating habits (eat healthier), Control risk factors (learn risk factor modification) Exercise - Initial Assessment - Visit Date of Eval: 12/24/18 - Stages of Change Stages of Change:: Action - Physician Prescribed Exercise Modalities: Treadmill, Biodyne, Rower, Airdyne, NuStep, SciFit Frequency (days/week): 3x/week for 12 weeks [36 sessions] Duration (Minutes):: 35-40 Intensity: 60-80% age predicted maximum heart rate reserve METs - Progression: 0.5-1.0 MET, RPE 11-14 WEEK: 0.5-1.0 Target Heart Rate:: 90-118 - Hypertension Do any of the following apply?: Yes - Intervention Home Exercise/Activity Goal:: Moderate Exercise 30 min/day x 5 days/wk - Education Goals:: Warm-up, RPE ROLDAN Scale, S/S, Safe Exercise, Self-Monitoring - Exercise Program Goals Exercise Program Goals: Aerobic Activity >30 min Nutrition - Initial Assessment - Program Goals Nutrition Program Goals: LDL <70. Total Cholesterol <200. HDL >45. Triglycerides <150. HgbA1C <7%. BMI <25 - Visit Date of Assessment:: 12/24/18 - Stages of Change Stages of Change:: Action - Lipids Total Cholesterol (mg/dL) Goal = less than 200 mg/dL: 117 HDL Cholesterol (mg/dL) Goal = less than 45 mg/dL: 42 LDL Cholesterol (mg/dL) Goal = less than 70 mg/dL: 31 Triglycerides (mg/dL) Goal = less than 150 mg/dL: 218 Lipid Medication: yes - Diabetes Diabetes:: Yes Non-Insulin Dependent?: Yes - Weight Management Height: 5 ft 3 in Weight:: 167 lb Weight Goal (kg):: 145 lb Body Fat %:: 29.5 Goal % Body Fat:: 25 - Intervention Referral to dietitian:: Yes Referral to Diabetic Clinic:: Yes Will attend diet classes:: Yes - Education Gave educational materials for:: Signs & symptoms of hypoglycemia, Signs & symptoms of hyperglycemia, Relate diabetes to coronary artery disease, Healthy eating Tobacco - Initial Assessment - Program Goals Tobacco Program Goals: Complete smoking cessation. Attend education classes. Improve Knowledge Test score - Stage of Change Stages of Change:: Maintenance - Learning Barriers Learning Barriers: Vision - wears glasses, Ready to Learn Total Score:: 16 - Family Support Do you have family support?: Yes - Tobacco Use Tobacco Use: Non-smoker Do you use smokeless tobacco?: No - Intervention Smoking Cessation Referral:: No Individual Education/Counseling:: No Education Schedule Given:: Yes - Education Attended class for:: Treating Heart Disease, How The Heart Works, What it means to have Heart Disease, How Coronary Artery Disease is Diagnosed, Heart Procedures, What Heart Medications Do, Risk Factors & Modifications, Living an Active Life, Nutrition, Emotions & Heart Disease, Stress Management & Relaxation, Sleep Disorders & Heart Disease Psychosocial - Initial Assess - Target Goals Target Goals: Assess presence or absence of depression. Using a valid screening tool, maximizes coping skills. Positive support system - Stages of Change Stages of Change:: Action - Psychosocial Test Tool Used:: HANDS Depression Questionnaire Self-reported stress:: no Total Mood Screening Score:: 4 Self-Efficacy Score:: 5 - Intervention PS - Interventions: Yes Attend Stress Management Classes, Yes Uses Stress Management Skills, No Referral to Mental Health, No Referral to [facility] Case Management, No Referral to Physician - Education Gave educational materials for:: Coping techniques, Signs & symptoms of depression, Stress management, Relaxation techniques - Patient/Program Goal Preventative Medication(s):: Aspirin, FANG inhibitor, Clopidogrel, Beta brittany, Statin/lipid - Assistive Devices Assistive Devices:: None Fall Risk Assessed:: Yes Patient Health Questionnaire Initial Assessment 1. Little interest or pleasure in doing things: Not at all 2. Feeling down, depressed, or hopeless: Not at all 3. Trouble falling or staying asleep, or sleeping too much: Not at all 4. Feeling tired or having little energy: More than half the days 5. Poor appetite or overeating: More than half the days 6. Feeling bad about yourself -- or that you are a failure or have let yourself or your family down: Not at all 7. Trouble concentrating on things, such as reading the newspaper or watching television: Not at all 8. Moving or speaking so slowly that other people could have noticed. Or the opposite - being so fidgety or restless that you have been moving around a lot more than usual: Not at all 9. Thoughts that you would be better off , or of hurting yourself in some way: Not at all How difficult have these problems made it for you to do your work, take care of things at home, or get along with other people?: Somewhat difficult Total Score: 4 OLIVA-Q SV Test - Statements CAD is a disease of the arteries in the heart: False Examples of risk factors for heart disease: True Angina is chest pain or discomfort: True The benefits of resistance training include: I Don't Know Eating more meat and dairy products: False Anti-platelet medications such as aspirin are important: I Don't Know The only effective way to manage stress: False An exercise warm-up slowly increases heart rate: True Prepared, processed foods usually have high sodium: True Depression is common after a heart attack: I Don't Know The statin medications lower cholesterol: True To control blood pressure, lower the amount of sodium: True If someone gets chest discomfort during walking: False Transfats are partially hydrogenated vegetable oils: True Sleep apnea that is not treated increases the risk: True To control cholesterol, one should become a vegetarian: False Someone knows if he/she is exercising at the right level: True Diabetes cannot be prevented with exercise & health eating: False Stress is a large risk for heart attack: True A diet that can help lower blood pressure is rich in: True - Total Score Total Correct Responses: 16 Self-Efficacy Initial Assessment We would like to know how confident you are in doing certain activities. Please select your confidence level for:: Select your confidence level for the following using the scale 1-10 where 1 is not at all confident and 10 is totally confident. Your score is the average of all 6 responses. Fatigue: How confident are you that you can keep the fatigue caused by your disease from interfering with the things you want to do? Select Number: 3 Physical Discomfort or Pain: How confident are you that you can keep the physical discomfort or pain of your disease from interfering with the things you want to do? Select Number: 3 Emotional Distress: How confident are you that you can keep the emotional distress caused by your disease from interfering with the things you want to do? Select Number: 8 Other Symptoms or Health Problems: How confident are you that you can keep other symptoms or health problems from interfering with the things you want to do? Select Number: 6 Different Tasks and Activities: How confident are you that you can do the different tasks and activities needed to manage your health condition so as to reduce your need to see a doctor? Select Number: 5 Medication: How confident are you that you can do things other than just taking medication to reduce how much your illness affects your everyday life? Select Number: 5 Total Score:: 5 Nutrition Survey - Nutrition Survey Instructions Scoring Instructions: Scoring is as follows: Yes = 1 points. No = 0 point. Patient score that is >/=12 is considered to be at potential nutritional risk and could benefit from a referral to a registered dietitian. - Nutrition Survey Initial Have you lost >10 lbs over the past 2 months without trying?: No Are you following a special diet at home for diabetes, low fat, or low salt?: Yes Are you interested in meeting with a dietitian for help understanding your diet?: Yes Do you eat less than 3 meals a day?: Yes Do you eat fatty meats (leyva, sausage, ribs, etc), fried foods, desserts, large amounts of salad dressings, margarine, butter, or cheese most days?: No Do you have food allergies? [Enter types in comment field]: No Do you eat in restaurants more than 3 times a week?: No Do you season food with salt, seasoning salt, or garlic salt?: No Do you used canned, boxed, frozen meals, or soups, seasoning packets?: No Total Score:: 3
--- NOTE | 2018-12-24 11:53 | PCM.CR.HP2 ---
CR - History & Physical - General Arrival date:: 12/24/18 Arrival time:: 11:53 Date of Referral:: 12/11/18 Date of CR Evaluation:: 12/24/18 Referring Physician: Dr. Emily Uriostegui Primary Diagnosis: PCI with stent - History of Present Cardiac Event Onset Date: Enter Onset Date of cardiac illnesses in Comment field below Current stable Angina Pectoris:: No Acute Myocardial Infarction within 12 months:: No Coronary Artery Bypass Graft:: No Heart valve replacement or repair:: No PTCA or coronary stenting:: Yes - 12/11/18 Heart or Heart-Lung Transplant:: No Type of Symptoms:: sob, heart cath done and stented. Interventions with present event:: stented. Were there any complications?: difficulty with stent insertion - Medications Home Medications: Ambulatory Orders Medication Instructions Recorded Amlodipine [Norvasc] 10 mg PO DAILY 12/20/18 Atorvastatin Calcium [Lipitor] 40 mg PO QHS 12/20/18 Clopidogrel Bisulfate [Plavix] 75 mg PO DAILY 12/20/18 Duloxetine Hcl [Cymbalta] 20 mg PO DAILY 12/20/18 Furosemide [Lasix] 20 mg PO DAILY 12/20/18 Insulin Glargine,Hum.rec.anlog 0 unit SUBCUT DAILY 12/20/18 [Lantus] Isosorbide Mononitrate [Isosorbide 30 mg PO DAILY 12/20/18 Mononitrate ER] Lansoprazole [Prevacid] 30 mg PO DAILY 12/20/18 Levothyroxine [Synthroid] 88 mcg PO DAILY 12/20/18 Metformin HCl [Metformin HCl ER] 2 tab PO BID 12/20/18 Metoprolol Tartrate [Lopressor 50 mg PO BID 12/20/18 (Beta Pancho)] Oxybutynin Chloride [Oxybutynin 10 mg PO DAILY 12/20/18 Chloride ER] hydrALAZINE [Apresoline] 50 mg PO TID 12/20/18 Insulin Glargine,Hum.rec.anlog 40 units SUBCUT DAILY 12/24/18 [Lantus] Insulin Lispro [Humalog] 0 unit SUBCUT PRN PRN 12/24/18 - Allergies Allergies/Adverse Reactions: Allergies latex Allergy (Verified 12/20/18 13:24) Rash adhesive tape Adverse Reaction (Verified 12/20/18 13:24) Rash ticagrelor [From Brilinta] Adverse Reaction (Verified 12/24/18 11:56) Shortness of breath - Sleep Disorder Evaluation Hx of Sleep Apnea: Yes Do you snore loudly (louder than talking or can be heard through closed doors)?: Yes Do you often feel tired/ fatigued/ sleepy during daytime?: Yes Has anyone observed you stop breathing during sleep?: Yes History of Hypertension (for STOP score): Yes - uses cpap nightly. STOP Results: Positive Advanced Directives - Advanced Directives Power of Pipeline Integrity Engineer: No Living Will: No Advance Directives Information Provided: Yes Advance Directives on File: No Past Medical History - Past Medical Illness Medical History: Past Medical History (Last Updated 12/14/18 @ 09:01 by Emerald Meyers) Atherosclerotic heart disease of [place] coronary artery without angina pectoris (Chronic) I25.10 Presence of stent in coronary artery (Chronic) Onset Date: ~12/11/18 Z95.5 PCI/RAMONA to mid LCX 12/11/18 Carotid stenosis, left (Acute) I65.22 Debility (Acute) R53.81 Chronic renal failure, stage 3 (moderate) (Chronic) N18.3 Hyperlipidemia (Chronic) E78.5 Other intermodal customer service (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 (Chronic) Z79.899 TIA (transient ischemic attack) (Chronic) G45.9 Angina pectoris (Chronic) I20.9 Obstructive sleep apnea (Chronic) G47.33 Postlaminectomy syndrome of lumbar region (Chronic) Lumbosacral radiculopathy (Chronic) M54.17 Diabetes mellitus, type 2 (Chronic) E11.9 Hypertension (Chronic) I10 History of stroke (Chronic) Z86.73 Fibromyalgia (Chronic) GERD (Chronic) Hypothyroidism (Chronic) Renal cancer (Chronic) CAD (coronary artery disease) (Chronic) I25.10 CABG X 3, SOTO to LAD, SVG to 1st diagonal & SVG to obtuse marginal @ [facility] 04/08/16 Chest pain R07.9 Dyspnea on exertion R06.09 Edema R60.9 Fatigue R53.83 Shortness of breath R06.02 - Past Surgical History Surgical History: Past Surgical History (Last Updated 12/14/18 @ 09:00 by Emerald Meyers) Presence of coronary angioplasty implant and graft (Chronic) Onset Date: ~12/11/18 Z95.5 PCI/RAMONA to mid LCX 12/11/18 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) Z95.1 CABG X 3, SOTO to LAD, SVG to 1st diagonal & SVG to obtuse marginal @ [facility] 04/08/16 History of back surgery Z98.890 History of hysterectomy Z90.710 History of knee replacement procedure of right knee Z96.651 History of right inguinal hernia repair Z98.890, Z87.19 Surgical History: appendectomy, cholecystectomy, coronary bypass surgery, herniorrhaphy, hysterectomy, total knee arthroplasty, tonsillectomy, - - cryotherapy for kidney tumor - Family History Summary Family History: Family History (Last Reviewed 11/03/18 @ 17:48 by JUAN FRANCISCO Monroe) Father Heart disease Mother Breast cancer Diabetes Heart disease Social History - Smoking History Smoking Status: Never smoker Hx Tobacco Use: No Hx Smoking Exposure: No - Alcohol Use Alcohol Usage: No - Substance Abuse Hx Substance Use: No - Occupation Occupation (List type of work in comments):: Retired - Hobbies, Recreation, Social Activities Hobbies: Sewing, Reading Recreational Activities: I am able to engage in all my recreational activities Social Environment - Status Marital Status: - Current Living Arrangements Living Environment:: Spouse - Children How many children do you have?: 3 - 2 Do any of your children live nearby?: No - 2 hours away - Assistance Do you need any assistance at home?: no Review of Systems - Review of Systems Hints: Right click = Denies ([place]). Left click = Reports ([place]) Review of Present Symptoms: Reports: Shortness of Breath with Exertion, Fatigue - alot since surgery, Appetite - Normal, Appetite - Special Diet, Sleep - Normal. Denies: Shortness of Breath at Rest, PVD, Operative Discomfort, Angina, Wound Healing, Dizziness/Lightheadedness, Heart Arrhythmia/Irregularities, Sexual Changes - Pain Is Patient Pain Free?: Yes Pain Location: back Pain Level: 0/10 Previous experience dealing with pain?: has a device under skin left back for pain. Risk Factor Assessment - Chief Complaint Chief Complaint: pci with stent. - Vital Signs Pulse Ox: 95 - Pulse Pulse Rate: 63 Pulse Rhythm: Regular - Hypertension How long have you been treated?: almost all of her life On medication(s)?: yes Blood Pressure Sitting - Right Arm: 148/76 Blood Pressure Sitting - Left Arm: 158/70 - Blood Cholesterol/Lipids Total Cholesterol (mg/dL) Goal = less than 200 mg/dL: 117 HDL Cholesterol (mg/dL) Goal = less than 40 mg/dL: 42 LDL Cholesterol (mg/dL) Goal = less than 70 mg/dL: 31 Triglycerides (mg/dL) Goal = less than 150 mg/dL: 218 - Diabetes Diabetic History: Type II, Medication Dependent, Insulin Dependent Nutrition Referral for Diabetes: Yes - Obesity Height: 5 ft 3 in Weight:: 167 lb Weight in Pounds: 167.0 lbs Weight Source: Standing Scale Body Mass Index (BMI): 29.5 Desired Body Weight: 145 Realistic Weight Goal (Loss of 1-2 lbs/week): 150 Nutritional Referral for Obesity: Yes - Physical Inactivity Physical Inactivity: Reg Exercise 30 min/day - Risk Stratification Risk Guidelines: Lowest Risk: Risk Factor for Smoking, Risk Factor for Sedentary Lifestyle, Risk Factor for Depression, Moderate Risk: Risk Factor for Dyslipidemia, Risk Factor for Hypertension, Highest Risk: Risk Factor for Diabetes, Risk Factor for Obesity - For Smoking Smoking Risk Guidelines: Smoking Low Risk: None or quit greater than 6 months ago. Smoking Moderate Risk: Smoker or quit 6 months or less ago. Smoking High Risk: Smoker - For Dyslipidemia Dyslipidemia Risk Guidelines: Low Risk: Moderate Risk: High Risk: 15-25% fat 25.1-29% fat >/= 30% fat. <7% sat fat 7-9% sat fat >9% sat fat. <150 mg chol 150-299 mg chol >/= 300 mg chol. LDL <100 LDL 100-129 LDL >/= 130. Chol/HDL ratio <5.0 Chol/HDL ratio 5.0-6.0 Chol/HDL ratio >6.0. Triglycerides <100 Triglycerides 100-149 Triglycerides >/= 150 - For Diabetes Mellitus Diabetes Risk Guidelines: Diabetes Low Risk: HgA1c <6.5% and/or FBG <120. Diabetes Moderate Risk: HgA1c 6.6-7.9% and/or FBG 120-180. Diabetes High Risk: HgA1c >/= 8% and/or FBG >180 - For Obesity/Overweight Obesity/Overweight Risk Guidelines: Obesity Low Risk: BMI <25.0. Obesity Moderate Risk: BMI 25-29.9. Obesity High Risk: BMI >/= 30.0 - For Hypertension Hypertension Risk Guidelines: Hypertension Low Risk: Systolic <120 and Diastolic <80. Hypertension Moderate Risk: Systolic 120-139 and Diastolic 80-89. Hypertension High Risk: Systolic >/= 140 and Diastolic >/= 90 - For Sedentary Lifestyle Sedentary Lifestyle Risk Guidelines: Sedentary Lifestyle Low Risk: >/= 1,500 kcal/week. Sedentary Lifestyle Moderate Risk: 700-1,499 kcal/week. Sedentary Lifestyle High Risk: < 700 kcal/week - For Depression Depression Risk Guidelines: Depression Low Risk: Not clinically depressed. Depression Moderate Risk: Mildly depressed. Depression High Risk: Clinically depressed - Family History Family History: Family History (Last Reviewed 11/03/18 @ 17:48 by JUAN FRANCISCO Monroe) Father Heart disease Mother Breast cancer Diabetes Heart disease Motivation - Motivation to Participate On a scale of 1 to 10, how prepared are you to commit to attending program?: 10
[2018-12-24 12:57] VITALS: BP 148/76; BP 158/70; PULSE 63; O2SAT 95; BMI 29.5
== END ==
PROVIDERS: Family Provider Family Medicine; PCP Family Medicine; Referring Provider Internal Medicine Cardiovascular Disease; Visit Provider Internal Medicine Cardiovascular Disease
DX: E11.22 Type 2 diabetes mellitus with diabetic chronic kidney disease (principal); N18.3 Chronic kidney disease, stage 3 (moderate)

== ENCOUNTER → 2018-12-25 15:21 | Outpatient (CLI) | payer MEDICARE, SELFPAY ==
[2018-12-11 13:27] VITALS: BMI 28.7
[2018-12-24 12:57] VITALS: BMI 29.5
[2018-12-25 15:39] LABS: Hematocrit 39.2 % (37-47); Hemoglobin 12.4 g/dL (12.0-15.0); Mean Corp Hgb Conc 31.6 g/dL (32-36); Mean Corpuscular Hgb 29.3 pg (27.0-32.0); Mean Corpuscular Volume 92.7 fL (81-99); Mean Platelet Vol. 11.3 fl (6.2-12.0); Platelet Count 241 K/mm3 (150-450); RBC Distribution Width CV 13.2 % (11.6-14.6); RBC Distribution Width SD 44.7 fl (35.1-43.9); Red Blood Count 4.23 M/mm3 (4.2-5.4); White Blood Count 11.9 K/mm3 (4.4-11.0)
[2018-12-25 16:09] LABS: Protein, Urine (Random) 22.3 mg/dL (<11.9); Protein:Creat Ratio 203 mg/g CRE (0-200)
[2018-12-25 16:16] LABS: Albumin, Serum 3.9 g/dL (3.2-5.0); BUN 36 mg/dL (7-18); Calcium,Total 8.5 mg/dL (8.5-10.1); Chloride 109 mmol/L (98-107); Creatinine, Serum 1.89 mg/dL (0.55-1.02); EST Glomerular Filtration Rate 27 mL/min (>60); Est Glom Filt Rate - Afr Amer 33 mL/min (>60); Glucose 222 mg/dL (74-106); Phosphorus 3.2 mg/dL (2.5-4.9); Potassium 4.2 mmol/L (3.5-5.1); Sodium Level 141 mmol/L (136-145)
[2018-12-25 16:24] LABS: Vitamin D,25 Hydroxy 39.6 ng/mL (29.95-100.01)
[2018-12-28 10:51] LABS: PTHIN 73.4 pg/mL (18.4-80.1)
== END ==
PROVIDERS: Family Provider Family Medicine; PCP Family Medicine; Referring Provider Internal Medicine Nephrology; Visit Provider Internal Medicine Nephrology
DX: E55.9 Vitamin D deficiency, unspecified (principal); N18.3 Chronic kidney disease, stage 3 (moderate)
CPT/HCPCS: 36415; 80069; 82306; 82570; 83970; 84156; 85027

== ENCOUNTER 2019-01-06 14:15 | Outpatient (RCR) | payer MEDICARE, SELFPAY ==
[2018-12-11 13:27] VITALS: BMI 28.7
[2018-12-24 12:57] VITALS: BMI 29.5
== END 2019-01-09 23:59 ==
LOC: CR 14:15
PROVIDERS: Family Provider Family Medicine; PCP Family Medicine; Referring Provider Internal Medicine Cardiovascular Disease; Visit Provider Internal Medicine Cardiovascular Disease
DX: Z95.5 Presence of coronary angioplasty implant and graft (principal); I25.10 Atherosclerotic heart disease of native coronary artery without angina pectoris; Z95.1 Presence of aortocoronary bypass graft
CPT/HCPCS: 93798

== ENCOUNTER → 2019-01-14 13:34 | Outpatient (CLI) | payer MEDICARE, SELFPAY ==
[2018-12-11 12:10] VITALS: BMI 28.8
[2018-12-11 13:27] VITALS: BMI 28.7
[2019-01-01 09:34] VITALS: BMI 29.5
== END ==
PROVIDERS: Family Provider Family Medicine; PCP Family Medicine; Referring Provider Internal Medicine Nephrology; Visit Provider Internal Medicine Nephrology
DX: N28.89 Other specified disorders of kidney and ureter (principal); Z01.812 Encounter for preprocedural laboratory examination

== ENCOUNTER → 2019-01-18 10:04 | Outpatient (CLI) | payer MEDICARE, SELFPAY ==
[2018-12-11 13:27] VITALS: BMI 28.7
[2019-01-01 09:34] VITALS: BMI 29.5
[2019-01-18 10:55] LABS: Hemoglobin A1c 8.3 % (4.2-6.3)
[2019-01-18 11:04] LABS: AST(SGOT) 14 U/L (15-37); Alanine Aminotransfer ALT/SGPT 13 U/L (13-56); Anion Gap 10 (5-15); BUN 31 mg/dL (7-18); BUN/Creat Ratio 18.6 RATIO (10-20); Calcium,Total 8.9 mg/dL (8.5-10.1); Chloride 108 mmol/L (98-107); Cholesterol 162 mg/dL (200); Creatinine, Serum 1.67 mg/dL (0.55-1.02); EST Glomerular Filtration Rate 31 mL/min (>60); Est Glom Filt Rate - Afr Amer 38 mL/min (>60); Glucose 215 mg/dL (74-106); High Density Lipoprotein 47 mg/dL; Potassium 4.5 mmol/L (3.5-5.1); Sodium Level 139 mmol/L (136-145); Triglycerides 282 mg/dL; Very Low Density Lipoprotein 56 mg/dL (5-40)
== END ==
PROVIDERS: Family Provider Family Medicine; PCP Family Medicine; Referring Provider Internal Medicine Endocrinology, Diabetes & Metabolism; Visit Provider Internal Medicine Endocrinology, Diabetes & Metabolism
DX: E11.65 Type 2 diabetes mellitus with hyperglycemia (principal); E78.2 Mixed hyperlipidemia
CPT/HCPCS: 36415; 80048; 80061; 83036; 84450; 84460; 93798

== ENCOUNTER 2019-01-25 14:53 | Outpatient (RCR) | payer MEDICARE, SELFPAY ==
[2018-12-11 13:27] VITALS: BMI 28.7
[2019-01-01 09:34] VITALS: BMI 29.5
== END 2019-01-25 23:59 | disposition home or self-care (01) ==
LOC: DC 14:53
PROVIDERS: Family Provider Family Medicine; PCP Family Medicine; Visit Provider Internal Medicine Cardiovascular Disease
DX: Z71.3 Dietary counseling and surveillance (principal); E11.22 Type 2 diabetes mellitus with diabetic chronic kidney disease; N18.3 Chronic kidney disease, stage 3 (moderate)
CPT/HCPCS: 97802

== ENCOUNTER 2019-02-08 14:15 | Outpatient (RCR) | payer MEDICARE, SELFPAY ==
[2018-12-11 13:27] VITALS: BMI 28.7
[2019-01-01 09:34] VITALS: BMI 29.5
--- NOTE | 2019-01-22 08:15 | PCM.CR.ITP ---
General Information - General Information Admitting Diagnosis: PCI with coronary stent - Education/Goals Barriers to Learning: None Cardiac Rehabilitation Goals: 1. Maintain the individual as the primary focus of care. 2. To improve the patient's quality of life. 3. Identification of cardiac risk factors and provide cardiac risk factor management. 4. Enhance the psychosocial status of the patient. 5. Reconditioning enough to allow the patient to resume customary activities. 6. Control symptoms of cardiac disease Scale for measuring improvement of personal goals: Enter appropriate number in Comments. 2 = Unchanged. 3 = Slightly Better. 4 = Moderate Improvement. 5 = Met my Goal Exercise - 30-day Assessment - Visit Date of Eval: 01/22/19 Session #:: 8 - Stages of Change Stages of Change:: Action - Physician Prescribed Exercise Modalities: Treadmill, NuStep Frequency (days/week): 3 Duration (Minutes):: 30-45 Intensity: 60-80% age predicted maximum heart rate reserve METs - Progression: 0.5-1.0 MET, RPE 11-14 WEEK: 3 Target Heart Rate:: 90-118 Max HR 99 - Hypertension Resting Blood Pressure:: 142/72 Peak Exercise Blood Pressure:: 152/60 - Intervention Home Exercise/Activity Goal:: Moderate Exercise 30 min/day x 5 days/wk - Education Goals:: Warm-up, RPE ROLDAN Scale, S/S, Safe Exercise, Self-Monitoring - Exercise Program Goals Exercise Program Goals: Aerobic Activity >30 min, B/P <130/80 Nutrition - 30-Day Assessment - Program Goals Nutrition Program Goals: LDL <70. Total Cholesterol <200. HDL >45. Triglycerides <150. HgbA1C <7%. BMI <25 - Visit Date of Eval: 01/22/19 - Stages of Change Stages of Change:: Action - Diabetes Diabetes:: Yes Insulin: Yes - Weight Management Weight:: 75.75 kg - Intervention Referral to dietitian:: No Referral to Diabetic Clinic:: Yes Will attend diet classes:: Yes - Education Attended class for:: Signs & symptoms of hypoglycemia, Signs & symptoms of hyperglycemia, Relate diabetes to coronary artery disease, Healthy eating Tobacco - Initial Assessment - Program Goals Tobacco Program Goals: Complete smoking cessation. Attend education classes. Improve Knowledge Test score - Learning Barriers Learning Barriers: Vision - wears glasses, Ready to Learn Tobacco - 30-Day Assessment - Program Goals Tobacco Program Goals: Complete smoking cessation. Attend education classes. Improve Knowledge Test score - Stage of Change Stages of Change:: Action - Learning Barriers Learning Barriers: Participates in education - Family Support Do you have family support?: Yes - Tobacco Use Tobacco Use: Non-smoker Do you use smokeless tobacco?: No - Intervention Smoking Cessation Referral:: No Individual Education/Counseling:: No Education Schedule Given:: Yes - Education Attended class for:: Treating Heart Disease, How The Heart Works, What it means to have Heart Disease, How Coronary Artery Disease is Diagnosed, Heart Procedures, What Heart Medications Do Psychosocial - Initial Assess - Target Goals Target Goals: Assess presence or absence of depression. Using a valid screening tool, maximizes coping skills. Positive support system - Psychosocial Test Tool Used:: HANDS Depression Questionnaire - Assistive Devices Fall Risk Assessed:: Yes Psychosocial - 30-Day Assess - Target Goals Target Goals: Assess presence or absence of depression. Using a valid screening tool, maximizes coping skills. Positive support system - Stages of Change Stages of Change:: Action - Psychosocial Test Tool Used:: HANDS Depression Questionnaire - Intervention PS - Interventions: Yes Attend Stress Management Classes, Yes Uses Stress Management Skills, No Referral to Mental Health, No Referral to [facility] Case Management, No Referral to Physician - Education Attended classes for:: Coping techniques, Signs & symptoms of depression, Stress management, Relaxation techniques - Assistive Devices Assistive Devices:: None Fall Risk Assessed:: Yes Patient Health Questionnaire 30-Day Re-eval Assessment 1. Little interest or pleasure in doing things: Not at all 2. Feeling down, depressed, or hopeless: Not at all 3. Trouble falling or staying asleep, or sleeping too much: Not at all 4. Feeling tired or having little energy: More than half the days 5. Poor appetite or overeating: More than half the days 6. Feeling bad about yourself -- or that you are a failure or have let yourself or your family down: Not at all 7. Trouble concentrating on things, such as reading the newspaper or watching television: Not at all 8. Moving or speaking so slowly that other people could have noticed. Or the opposite - being so fidgety or restless that you have been moving around a lot more than usual: Not at all 9. Thoughts that you would be better off , or of hurting yourself in some way: Not at all How difficult have these problems made it for you to do your work, take care of things at home, or get along with other people?: Somewhat difficult Total Score: 4 Self-Efficacy 30-Day Re-eval Assessment We would like to know how confident you are in doing certain activities. Please select your confidence level for:: Select your confidence level for the following using the scale 1-10 where 1 is not at all confident and 10 is totally confident. Your score is the average of all 6 responses. Fatigue: How confident are you that you can keep the fatigue caused by your disease from interfering with the things you want to do? Select Number: 3 Physical Discomfort or Pain: How confident are you that you can keep the physical discomfort or pain of your disease from interfering with the things you want to do? Select Number: 3 Emotional Distress: How confident are you that you can keep the emotional distress caused by your disease from interfering with the things you want to do? Select Number: 8 Other Symptoms or Health Problems: How confident are you that you can keep other symptoms or health problems from interfering with the things you want to do? Select Number: 6 Different Tasks and Activities: How confident are you that you can do the different tasks and activities needed to manage your health condition so as to reduce your need to see a doctor? Select Number: 5 Medication: How confident are you that you can do things other than just taking medication to reduce how much your illness affects your everyday life? Select Number: 5 Total Score:: 5
[2019-01-22 08:21] VITALS: BP 142/72; BP 152/60
== END 2019-02-09 23:59 ==
LOC: CR 14:15
PROVIDERS: Family Provider Family Medicine; PCP Family Medicine; Referring Provider Internal Medicine Cardiovascular Disease; Visit Provider Internal Medicine Cardiovascular Disease
DX: I25.10 Atherosclerotic heart disease of native coronary artery without angina pectoris (principal); Z95.5 Presence of coronary angioplasty implant and graft; Z95.1 Presence of aortocoronary bypass graft
CPT/HCPCS: 93798

== ENCOUNTER 2019-03-23 18:47 | Observation (INO) | payer MEDICARE, SELFPAY ==
[2018-12-11 13:27] VITALS: BMI 28.7
[2019-01-01 09:34] VITALS: BMI 29.5
[2019-03-23] VITALS (14 sets, daily range): BP systolic 127–165; BP diastolic 64–89; PULSE 63–74; RESP 16–161; TEMP 36.2–36.7; O2SAT 93–98; BMI 29.0
--- NOTE | 2019-03-23 18:55 | ED.RN ---
RN CALLED FOR EKG, PULLED OLD EKGS FOR
--- NOTE | 2019-03-23 19:10 | EKG12_ITS ---
Test Reason : CP Blood Pressure : / mmHG Vent. Rate : 069 BPM Atrial Rate : 069 BPM P-R Int : 180 ms QRS Dur : 078 ms QT Int : 444 ms P-R-T Axes : -05 012 017 degrees QTc Int : 475 ms Normal sinus rhythm Possible Inferior infarct , age undetermined Abnormal ECG Confirmed by CHEVY DÍAZ ([id number]), supervising film or videotape editor WILY TIRADO ([id number]) on 03/25/2019 3:12:17 PM Referred By: JENNIFER Confirmed By:CHEVY DÍAZ
--- NOTE | 2019-03-23 19:18 | RAD_ITS ---
STUDY: X-RAY CHEST REASON FOR EXAM: Female, 83 years old. CHEST PAIN TECHNIQUE: Single frontal view of the chest. COMPARISON: 12/20/2018. FINDINGS: Median sternotomy wires. Spinal stimulator leads overlying the midthoracic spine. Cardiac silhouette unremarkable. Pulmonary vascularity unremarkable. Aorta unremarkable. No focal airspace opacities. No pleural effusions. Upper abdomen unremarkable. Osseous structures intact. No pneumothorax. RAD/Chest 1 View (Portable) IMPRESSION: No acute cardiopulmonary findings Electronically Signed: Nigel Cortes, at 21:54 EST Tel , Service support ,
--- NOTE | 2019-03-23 19:24 | ED.DCSUM_ITS ---
History of Present Illness Chief Complaint: Chest Pain Informant: Patient Onset: Today Context: Sudden Onset Timing: Continuous Current Severity: Moderate Maximum Severity: Moderate Narrative: The patient is an 83-year-old female with medical history significant for coronary vascular disease and prior CABG that presents to the emergency department chest pain. Patient states she was in normal state of health. She just finished eating. She states that she got rather sudden onset substernal chest pain that radiated to her right shoulder. She states this feels similar to her prior DE, just not as severe. She also describes nausea and dyspnea. She has been compliant with all her medications. She does follow with Dr. Uriostegui for cardiology. Prior similar symptoms: No Recent Illness/Hospitalization: Yes Past Medical History - Allergies and Home Meds Allergies/Adverse Reactions: Allergies latex Allergy (Verified 03/23/19 18:48) Rash adhesive tape Adverse Reaction (Verified 03/23/19 18:48) Rash ticagrelor [From Brilinta] Adverse Reaction (Verified 03/23/19 18:48) Shortness of breath Primary Care Physician: Fernando Kong MD [Primary Care Provider] - Prior records reviewed: Yes Past Medical History: - - Coronary vascular disease, prior CABG, hypertension, hyperlipidemia Surgical History: appendectomy, cholecystectomy, coronary bypass surgery, herniorrhaphy, hysterectomy, total knee arthroplasty, tonsillectomy, - - cryotherapy for kidney tumor Smoking Status: Never smoker - Family History Maternal Family History: Family History (Last Reviewed 01/01/19 @ 09:58 by JUAN FRANCISCO Monroe) Father Heart disease Mother Breast cancer Diabetes Heart disease Family History: Reports: Diabetes, Heart Disease - age 95 Paternal Family History: Family History (Last Reviewed 01/01/19 @ 09:58 by JUAN FRANCISCO Monroe) Father Heart disease Mother Breast cancer Diabetes Heart disease Family History: Reports: Heart Disease - age 69 Review of Systems General: Denies: Chills, Fever, Sweats Eyes: Denies: Visual changes - bilaterally, Diplopia ENT: Denies: Rhinorrhea, Sore throat Cardiovascular: Reports: Chest pain. Denies: Palpitations Respiratory: Reports: Dyspnea. Denies: Cough, Dyspnea on exertion Gastrointestinal: Denies: Abdominal pain, Nausea, Vomiting, Diarrhea, Melena, Hematochezia Genitourinary: Denies: Dysuria, Hematuria, Frequency Musculoskeletal: Denies: Back pain, Extremity Pain Skin: Denies: Rash, Wounds Neurological: Denies: Headache, Weakness, Numbness Physical Exam Vital Signs/Narrative: Vital Signs Temp Pulse Resp BP Pulse Ox 03/23/19 19:10 98 03/23/19 18:48 97.1 F L 69 16 157/71 H 94 Inital Vital Signs reviewed: Yes General: Well nourished, Well developed, No Acute Distress Head: Normocephalic, Atraumatic Eyes: Perrl, EOMI ENT: Moist mucous membranes, No rhinorrhea Neck: Supple, Nontender Cardiovascular: Regular rate, Regular rhythm, No murmurs Respiratory: No distress, CTA bilaterally, Chest nontender Abdomen: Soft, Nontender, Nondistended, Normal bowel sounds Back: Nontender, Normal Inspection Extremities: Nontender, No edema Skin: Normal color, No rash Neurological: Alert, Oriented x3, Cranial nerves II-XII grossly intact, Normal Strength, Normal Sensation Psychological: Normal affect, Normal Mood Diagnostic/Tx/Re-eval Chest X-Ray - ED: 1 View, Normal, Heart, Lungs, Mediastinum Abnormal Lab Results 03/23/19 03/23/19 03/23/19 19:31 19:31 19:31 WBC 12.4 H RBC 4.41 Hgb 12.3 Hct 39.8 MCV 90.2 MCH 27.9 MCHC 30.9 L RDW Std Deviation 44.8 H RDW Coeff of Laquita 13.6 Plt Count 253 MPV 10.9 Immature Gran % (Auto) 0.500 Neut % (Auto) 75.1 H Lymph % (Auto) 16.6 L Archuleta % (Auto) 6.0 Eos % (Auto) 1.3 Baso % (Auto) 0.5 Absolute Neuts (auto) 9.3 H Absolute Lymphs (auto) 2.05 Nucleated RBC % 0 Sodium 136 Potassium 4.2 Chloride 106 Carbon Dioxide 19.0 L Anion Gap 11 BUN 28 H Creatinine 1.62 H Estim Creat Clear Calc 21.54 Est GFR (MDRD) Af Amer 39 L Est GFR (MDRD) Non-Af 32 L BUN/Creatinine Ratio 17.3 Glucose 407 H Calcium 7.9 L Troponin I < 0.015 B-Natriuretic Peptide 197.4 H - Rhythm Strip Rhythm Strip: Sinus Rhythm Rate: 80 Ectopy: None - EKG Initial EKG Interpretation: Sinus Rhythm, No Acute Injury Pattern Prior: Unchanged - Medical Decision Making The patient presents with sudden onset chest pain that radiates to her right arm. She was given 2 sublingual nitro with resolution of her pain. Her EKG does not show ischemic change. However, the patient has significant history of coronary vascular disease. She had recent stenting in December. She does admit to exertional dyspnea over the past few weeks and tonight she had pain. Cardiac enzymes are negative. Chest x-ray shows no significant volume overload. Given the patient's history, I do feel that she would benefit from observation for cardiac rule out. Patient was discussed with the hospitalist. Impression 1. Chest pain with history of coronary vascular disease ED Disposition - Plan for ED Patient: Referrals: Fernando Kong MD [Primary Care Provider] -
[2019-03-23] MEDS: Aspirin 81 MG TAB.CHEW 324 MG PO (19:40)
[2019-03-23] MEDS: Nitroglycerin SL (ED/IMG/CATH) 0.4 MG TABLET SUBLINGUAL ×2 (19:40→19:45)
[2019-03-23 19:43] LABS: Absolute Lymphocyte Count 2.05 X10^3/uL (0.83-4.51); Absolute Neutrophil Count 9.3 X10^3/uL (2.0-7.7); Basophil# 0.06 X10^3/uL; Basophil% 0.5 % (0-1); Eosinophil# 0.16 X10^3/uL; Eosinophils% 1.3 % (0-5); Hematocrit 39.8 % (37-47); Hemoglobin 12.3 g/dL (12.0-15.0); Lymphocyte # 2.05 X10^3/ul (4.0); Lymphocyte % 16.6 % (19-41); Mean Corp Hgb Conc 30.9 g/dL (32-36); Mean Corpuscular Hgb 27.9 pg (27.0-32.0); Mean Corpuscular Volume 90.2 fL (81-99); Mean Platelet Vol. 10.9 fl (6.2-12.0); Monocyte# 0.74 X10^3/uL; NRBC Flagged by Analyzer 0 % (0-5); Neutrophil # 9.31 X10^3/uL (2.7-7.7); Neutrophil % 75.1 % (47-70); Platelet Count 253 K/mm3 (150-450); RBC Distribution Width CV 13.6 % (11.6-14.6); RBC Distribution Width SD 44.8 fl (35.1-43.9); Red Blood Count 4.41 M/mm3 (4.2-5.4); White Blood Count 12.4 K/mm3 (4.4-11.0)
[2019-03-23 20:04] LABS: Anion Gap 11 (5-15); BUN 28 mg/dL (7-18); BUN/Creat Ratio 17.3 RATIO (10-20); Calcium,Total 7.9 mg/dL (8.5-10.1); Chloride 106 mmol/L (98-107); Creatinine, Serum 1.62 mg/dL (0.55-1.02); EST Glomerular Filtration Rate 32 mL/min (>60); Est Glom Filt Rate - Afr Amer 39 mL/min (>60); Estimated Creatinine Clearance 21.54 ml/min; Glucose 407 mg/dL (74-106); Potassium 4.2 mmol/L (3.5-5.1); Sodium Level 136 mmol/L (136-145)
[2019-03-23 20:09] LABS: BNP,B-Type NATRIURETIC PEPTIDE 197.4 pg/mL (0-100)
--- NOTE | 2019-03-23 20:35 | PCM.HP.STD ---
Problem List (1) Chest pain Status: Acute Qualifiers: Chest pain type: unspecified Qualified Code(s): R07.9 - Chest pain, unspecified (2) Chronic renal failure, stage 3 (moderate) Status: Chronic (3) Hyperlipidemia Status: Chronic Qualifiers: Hyperlipidemia type: pure hypercholesterolemia Qualified Code(s): E78.00 - Pure hypercholesterolemia, unspecified; E78.0 - Pure hypercholesterolemia (4) Obstructive sleep apnea Status: Chronic (5) Hypertension Status: Chronic Qualifiers: Hypertension type: essential hypertension Qualified Code(s): I10 - Essential (primary) hypertension (6) History of stroke Status: Chronic (7) Fibromyalgia Status: Chronic (8) GERD Status: Chronic (9) Hypothyroidism Status: Chronic (10) Renal cancer Status: Chronic Qualifiers: Laterality: right Qualified Code(s): C64.1 - Malignant neoplasm of right kidney, except renal pelvis Comment: Right (11) CAD (coronary artery disease) Status: Chronic Qualifiers: Coronary Disease-Associated Artery/Lesion type: [place] artery [place] vs. transplanted heart: [place] heart Associated angina: without angina Qualified Code(s): I25.10 - Atherosclerotic heart disease of [place] coronary artery without angina pectoris Comment: CABG X 3, SOTO to LAD, SVG to 1st diagonal & SVG to obtuse marginal @ [facility] 04/08/16 History of Present Illness Date of Admission: 03/23/19 Chief Complaint: Chest pain, Dyspnea The patient is a 83 y/o F w/ PMHx: Chronic back pain s/p stimulator placement and lumbar back surgery x 3 following w/ Pain management, CAD s/p CABG x 3 and PCI, HTN, HLD, CKD stage III, Hx CVA, FRANKLIN on CPAP q HS, Hx R Renal CA, Hypothyroidism, Hx L Carotid stenosis s/p CEA who presents to the [facility] ED on 03/23/19 with history of ongoing exertional dyspnea x 2 weeks, difficulty walking up stairs or with similar activities requiring increased exertion with onset on the evening of ED presentation, right shoulder and substernal concurrent discomfort described as a squeezing, 10 out of 10 in severity initially with associated dyspnea with no associated nausea, emesis, diaphoresis and no specific radiation as initially was already in her R shoulder and midsternal chest region with self administration NG from her with resolution of her chest pain following. Patient notes similar history of discomfort in her chest prior to her presentation 12/2018 w/ catheterization at that time w/ RCA stenosis with PCI intervention. Upon ED evaluation patient noted chest pain remained resolved. Work-up in the ED included T 97.1, heart rate 69, BP 157/71, respiratory rate 16, 94% on room air, CBC with WBC 12.4, hemoglobin 12.3, platelet 253 with left shift, BMP with come back side 19, BUN/creatinine 28/1.62 with baseline creatinine prior noted 1.6-1.8, glucose 407, troponin less than 0.015, BNP 197.4, chest x-ray with no acute cardiopulmonary findings, EKG was sinus rhythm with no acute evidence of ischemia. In ED patient ministered nitroglycerin, aspirin therapy. 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) TIA (transient ischemic attack) (Chronic) Angina pectoris (Chronic) Obstructive sleep apnea (Chronic) 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) CABG X 3, SOTO to LAD, SVG to 1st diagonal & SVG to obtuse marginal @ [facility] 04/08/16 Postlaminectomy syndrome of lumbar region (Chronic) Lumbosacral radiculopathy (Chronic) Diabetes mellitus, type 2 (Chronic) Hypertension (Chronic) History of stroke (Chronic) Fibromyalgia (Chronic) GERD (Chronic) Hypothyroidism (Chronic) Renal cancer (Chronic) Right CAD (coronary artery disease) (Chronic) CABG X 3, SOTO to LAD, SVG to 1st diagonal & SVG to obtuse marginal @ [facility] 04/08/16 Medical History: Medical History (Last Updated 01/01/19 @ 10:04 by JUAN FRANCISCO Monroe) Atherosclerotic heart disease of [place] coronary artery without angina pectoris (Chronic) I25.10 Presence of stent in coronary artery (Chronic) Onset Date: ~12/11/18 Z95.5 PCI/RAMONA to mid LCX 12/11/18 Carotid stenosis, left (Acute) I65.22 Debility (Acute) R53.81 Chronic renal failure, stage 3 (moderate) (Chronic) N18.3 Hyperlipidemia (Chronic) E78.5 Other usp (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 (Chronic) Z79.899 TIA (transient ischemic attack) (Chronic) G45.9 Angina pectoris (Chronic) I20.9 Obstructive sleep apnea (Chronic) G47.33 Postlaminectomy syndrome of lumbar region (Chronic) Lumbosacral radiculopathy (Chronic) M54.17 Diabetes mellitus, type 2 (Chronic) E11.9 Hypertension (Chronic) I10 History of stroke (Chronic) Z86.73 Fibromyalgia (Chronic) GERD (Chronic) Hypothyroidism (Chronic) Renal cancer (Chronic) Right CAD (coronary artery disease) (Chronic) I25.10 CABG X 3, SOTO to LAD, SVG to 1st diagonal & SVG to obtuse marginal @ [facility] 04/08/16 Chest pain R07.9 Dyspnea on exertion R06.09 Edema R60.9 Fatigue R53.83 Shortness of breath R06.02 Allergies latex Allergy (Verified 03/23/19 18:48) Rash adhesive tape Adverse Reaction (Verified 03/23/19 18:48) Rash ticagrelor [From Brilinta] Adverse Reaction (Verified 03/23/19 18:48) Shortness of breath Home Medications: Ambulatory Orders Medication Instructions Recorded Atorvastatin Calcium [Lipitor] 40 mg PO QHS 12/20/18 Clopidogrel Bisulfate [Plavix] 75 mg PO DAILY 12/20/18 Duloxetine Hcl [Cymbalta] 20 mg PO DAILY 12/20/18 Furosemide [Lasix] 20 mg PO DAILY 12/20/18 Isosorbide Mononitrate [Isosorbide 30 mg PO DAILY 12/20/18 Mononitrate ER] Lansoprazole [Prevacid] 30 mg PO DAILY 12/20/18 Levothyroxine [Synthroid] 88 mcg PO DAILY 12/20/18 Metformin HCl [Metformin HCl ER] 2 tab PO BID 12/20/18 Metoprolol Tartrate [Lopressor 50 mg PO BID 12/20/18 (Beta Pancho)] hydrALAZINE [Apresoline] 50 mg PO TID 12/20/18 Insulin Glargine,Hum.rec.anlog 46 units SUBCUT BREAKFAST 12/24/18 [Lantus] Insulin Lispro [Humalog] 0 unit SUBCUT 4X/DAY 12/24/18 aspirin 81 mg tablet,delayed 81 mg PO DAILY 01/01/19 release gabapentin 300 mg capsule 300 mg PO BID 01/01/19 amlodipine 10 mg tablet 10 mg PO DAILY #90 tab 03/01/19 Acetaminophen/Diphenhydramine 2 tab PO QHS 03/23/19 [Tylenol Pm Ex-Strength Caplet] Oxybutynin Chloride [Oxybutynin 10 mg PO DAILY 03/23/19 Chloride ER] Surgical History: Surgical History (Last Reviewed 01/01/19 @ 09:58 by JUAN FRANCISCO Monroe) Presence of coronary angioplasty implant and graft (Chronic) Onset Date: ~12/11/18 Z95.5 PCI/RAMONA to mid LCX 12/11/18 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) Z95.1 CABG X 3, SOTO to LAD, SVG to 1st diagonal & SVG to obtuse marginal @ [facility] 04/08/16 History of back surgery Z98.890 History of hysterectomy Z90.710 History of knee replacement procedure of right knee Z96.651 History of right inguinal hernia repair Z98.890, Z87.19 Surgical History: appendectomy, cholecystectomy, coronary bypass surgery, herniorrhaphy, hysterectomy, total knee arthroplasty, tonsillectomy, - - Cryotherapy, nephrectomy, appendectomy, cholecystectomy, CABG x3, PCI x1, umbilical hernia repair, right total knee replacement, hysterectomy, cholecystectomy, appendectomy, lumbar back surgery x3, stimulator, tonsillectomy, bilateral cataract surgery. 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 Lives: Spouse/ Significant Other Smoking Status: Never smoker Tobacco Use: Non-smoker Alcohol: None Drugs: None - *Family History Maternal Family History: Family History (Last Reviewed 01/01/19 @ 09:58 by JUAN FRANCISCO Monroe) Father Heart disease Mother Breast cancer Diabetes Heart disease History Items: Diabetes, High Cholesterol, Heart Disease - age 95, Hypertension Paternal Family History: Family History (Last Reviewed 01/01/19 @ 09:58 by JUAN FRANCISCO Monroe) Father Heart disease Mother Breast cancer Diabetes Heart disease History Items: Diabetes, High Cholesterol, Heart Disease - age 69, Hypertension Review of Systems Constitutional: Reports: Malaise, Weakness, Fatigue. Denies: Chills, Fever, Weight Change HEENT: Denies: Head Aches, Sinus Congestion, Sinus Drainage Cardiovascular: Reports: Chest Pain, Chest Tightness. Denies: Palpitations Respiratory: Denies: Cough, Shortness of breath at rest, Sputum production Gastrointestinal: Denies: Abdominal Pain, Nausea, Vomiting Genitourinary: Denies: Dysuria Musculoskeletal: Denies: Joint Pain, Joint Tenderness Skin: Denies: Rash, Wounds Neurological: Denies: Numbness, Tingling, Focal weakness Psychiatric: Denies: Anxiety, Depression, Homicidal Ideations, Suicidal Ideations Hematologic/ Lymphatic: Denies: Easy Bruising, Easy Bleeding VTE Information - Inpt Only VTE Present on Admission: No VTE Mechan Device Prophylaxis: SCD's VTE Pharm Prophylaxis ordered?: Yes Patient Problems: Active and Suspected Problems (Last Updated 01/01/19 @ 10:04 by JUAN FRANCISCO Monroe) Chest pain (Acute) Subjective: Seated upright in ED bed, no acute distress, notes chest pain has resolved. Objective: Physical Examination: General: awake, alert, oriented x 3 and cooperative, seated upright in the ED bed in no apparent distress, notes chest pain still resolved. Skin: normal color, turgor, no icterus, cyanosis. HEENT: AT/NC, EOMI, PERRLA, MMM, no carotid bruits or JVD noted. Lungs: CTA bilaterally, moderate effort, mild decrease BL bases, no rales, ronchi or wheezing. Heart: Regular rate and rhythm; no gallop, rub audible, no reproducible discomfort upon palpation of the chest anteriorly. Abdomen: soft, NTTP, ND, normal BS, no HSM. Extremities: no cyanosis, clubbing, or edema. Neurological: patient awake, alert, oriented x 3; cognitive function intact; pupils equally reactive to light and accomodation; cranial nerves II-XII grossly normal, moving all 4 extremities, no focal deficits, strength moderately global decrease secondary to acute presentation. Psychiatric: affect appears mildly fatigued otherwise normal, no acute evidence of depressive or anxiety feelings. - Physical Exam Vitals/I&O's: Vital Signs Temp Pulse Resp BP Pulse Ox 97.1 F L 66 20 H 127/65 H 93 03/23/19 18:48 03/23/19 19:51 03/23/19 19:51 03/23/19 19:51 03/23/19 19:51 Oxygen Delivery Method Room Air Weight: 159 lb Body Mass Index (BMI) 29.0 Finger Stick Blood Glucose 93 Laboratory Results 03/23/19 19:31: WBC 12.4 H, RBC 4.41, Hgb 12.3, Hct 39.8, MCV 90.2, MCH 27.9, MCHC 30.9 L, RDW Std Deviation 44.8 H, RDW Coeff of Laquita 13.6, Plt Count 253, MPV 10.9, Immature Gran % (Auto) 0.500, Neut % (Auto) 75.1 H, Lymph % (Auto) 16.6 L, [place] % (Auto) 6.0, Eos % (Auto) 1.3, Baso % (Auto) 0.5, Absolute Neuts (auto) 9.3 H, Absolute Lymphs (auto) 2.05, Nucleated RBC % 0 03/23/19 19:31: Sodium 136, Potassium 4.2, Chloride 106, Carbon Dioxide 19.0 L, Anion Gap 11, BUN 28 H, Creatinine 1.62 H, Estim Creat Clear Calc 21.54, Est GFR (MDRD) Af Amer 39 L, Est GFR (MDRD) Non-Af 32 L, BUN/Creatinine Ratio 17.3, Glucose 407 H, Calcium 7.9 L, Troponin I < 0.015 03/23/19 19:31: B-Natriuretic Peptide 197.4 H Current Medications Nitroglycerin (Nitrostat) 0.4 mg SUBLINGUAL Q5M PRN PRN Reason: Chest pain Last Admin: 03/23/19 19:45 Dose: 0.4 mg Documented by: Assessment/Plan All Active Problems (Last Updated 01/01/19 @ 10:04 by JUAN FRANCISCO Monroe) Chest pain (Acute) Hypoglycemia (Acute) Hyperkalemia (Acute) Carotid stenosis, left (Acute) Debility (Acute) Hyperkalemia (Resolved) Third nerve palsy (Resolved) The patient is a 83 y/o F w/ PMHx: Chronic back pain s/p stimulator placement and lumbar back surgery x 3 following w/ Pain management, CAD s/p CABG x 3 and PCI, HTN, HLD, CKD stage III, Hx CVA, FRANKLIN, Hx R Renal CA, Hypothyroidism, Hx L Carotid stenosis s/p CEA who presents to the [facility] ED on 03/23/19 with history of ongoing exertional dyspnea x 2 weeks, difficulty walking up stairs or with similar activities requiring increased exertion with onset on the evening of ED presentation, right shoulder and substernal concurrent discomfort described as a squeezing, 10 out of 10 in severity initially with associated dyspnea. 1. Chest Pain: EKG in ED with no acute evidence of ischemia, CXR w/ no acute cardiopulmonary findings, initial trop normal x1. Will admit to PCU, place on a monitored bed to assure no acute myocardial infarction with serial cardiac enzymes and EKGs. If cardiac enzymes and repeat EKGs remain unremarkable will pursue a.m. cardiac stress testing. Magnesium level requested. FLP in AM. ASA, NG, morphine. 2. CAD: Status post CABG x3 and PCI, will continue patient home aspirin, Plavix, statin, metoprolol regimen. 3. Hypertension: Continue home regimen including Norvasc, Lasix, hydralazine, isosorbide, metoprolol, PRN hydralazine. 4. Hyperlipidemia: Continue home statin regimen. AM FLP. 5. Diabetes mellitus type II with neuropathy: Hold oral home regimen, continue home insulin regimen, ADA diet, accu checks w/ ISS, continue home gabapentin regimen. 6. Chronic back pain: s/p stimulator placement and lumbar back surgery x 3 following w/ Pain management. 7. Hx CVA: Continue home asa, plavix, statin, BP regimen, BS regimen. 8. Carotid Disease: s/p L CEA, continued on asa, plavix, statin, BP regimen, BS regimen. 9. Chronic Kidney Disease Stage III: Admission BUN/Cr 28/1.62, baseline renal function 1.6-1.8, stable, repeat BMP in AM. 10. Hypothyroidism: Continue home synthroid regimen. 11. Anxiety and depression: We will continue home Cymbalta regimen. 12. GERD: Continue home PPI. 13. FRANKLIN: CPAP nightly. 14. DVT prophylaxis: SCDs, heparin. Code Visit OBSV E&M: [id number] Initial observation care L3
[2019-03-23] MEDS: Nitroglycerin Oint 1 INCH PACKET TRANSDERM. (20:47)
--- NOTE | 2019-03-23 21:41 | EKG12_ITS ---
Test Reason : CP ADMIT Blood Pressure : / mmHG Vent. Rate : 069 BPM Atrial Rate : 069 BPM P-R Int : 188 ms QRS Dur : 076 ms QT Int : 414 ms P-R-T Axes : 012 031 051 degrees QTc Int : 443 ms Normal sinus rhythm Normal ECG When compared with ECG of 20-DEC-2018 13:46, T wave inversion no longer evident in Inferior leads Confirmed by CHEVY DÍAZ ([id number]), order editor SAMI FORTUNE ([id number]) on 03/26/2019 1:28:14 PM Referred By: LIZET Confirmed By:CHEVY DÍAZ
[2019-03-23 22:12] LABS: Magnesium 1.5 mg/dL (1.6-2.6)
[2019-03-23 22:35] LABS: Bedside Glucose 352 mg/dL (70-110)
[2019-03-23] MEDS: Heparin Injection (Vial) 5,000 UNIT/ML VIAL 5000 UNIT SC (23:45)
[2019-03-23] MEDS: hydrALAZINE 50 MG Tablet PO (23:48)
[2019-03-23] MEDS: Atorvastatin Calcium 40 MG Tablet PO (23:49)
[2019-03-23] MEDS: Metoprolol Tartrate 50 MG Tablet PO (23:49)
[2019-03-23] MEDS: Gabapentin 300 MG Capsule PO (23:50)
[2019-03-23] MEDS: Insulin Lispro 100 UNIT/ML INSULN.PEN SC (23:50)
[2019-03-23] MEDS: 0.9% Normal Saline 1,000 ML 75 ML IV (23:54)
[2019-03-24] VITALS (7 sets, daily range): BP systolic 118–147; BP diastolic 67–86; PULSE 66–104; RESP 16; TEMP 36.7; O2SAT 95–97
[2019-03-24 05:54] LABS: Absolute Lymphocyte Count 2.44 X10^3/uL (0.83-4.51); Absolute Neutrophil Count 5.9 X10^3/uL (2.0-7.7); Basophil# 0.06 X10^3/uL; Basophil% 0.6 % (0-1); Eosinophil# 0.37 X10^3/uL; Eosinophils% 3.8 % (0-5); Hematocrit 35.2 % (37-47); Lymphocyte # 2.44 X10^3/ul (4.0); Lymphocyte % 25.2 % (19-41); Mean Corp Hgb Conc 31.3 g/dL (32-36); Mean Corpuscular Hgb 28.2 pg (27.0-32.0); Mean Corpuscular Volume 90.3 fL (81-99); Mean Platelet Vol. 11.2 fl (6.2-12.0); Monocyte# 0.93 X10^3/uL; Monocyte% 9.6 % (0-10); NRBC Flagged by Analyzer 0 % (0-5); Neutrophil # 5.85 X10^3/uL (2.7-7.7); Neutrophil % 60.3 % (47-70); Platelet Count 202 K/mm3 (150-450); RBC Distribution Width CV 13.6 % (11.6-14.6); RBC Distribution Width SD 44.8 fl (35.1-43.9); White Blood Count 9.7 K/mm3 (4.4-11.0)
--- NOTE | 2019-03-24 05:55 | EKG12_ITS ---
Test Reason : AM Blood Pressure : / mmHG Vent. Rate : 068 BPM Atrial Rate : 068 BPM P-R Int : 196 ms QRS Dur : 076 ms QT Int : 412 ms P-R-T Axes : 020 021 055 degrees QTc Int : 438 ms Normal sinus rhythm Normal ECG When compared with ECG of 23-MAR-2019 22:39, MANUAL COMPARISON REQUIRED, DATA IS UNCONFIRMED Confirmed by CHEVY DÍAZ ([id number]), school photograph editor SAMI FORTUNE ([id number]) on 03/26/2019 1:32:08 PM Referred By: LIZET Confirmed By:CHEVY DÍAZ
[2019-03-24 06:22] LABS: BUN 23 mg/dL (7-18); Calcium,Total 7.6 mg/dL (8.5-10.1); Chloride 112 mmol/L (98-107); Cholesterol 121 mg/dL (200); Creatinine, Serum 1.21 mg/dL (0.55-1.02); EST Glomerular Filtration Rate 45 mL/min (>60); Est Glom Filt Rate - Afr Amer 55 mL/min (>60); Estimated Creatinine Clearance 28.84 ml/min; Glucose 140 mg/dL (74-106); Potassium 3.8 mmol/L (3.5-5.1); Sodium Level 141 mmol/L (136-145); Triglycerides 253 mg/dL
[2019-03-24 06:23] LABS: Anion Gap 8 (5-15); High Density Lipoprotein 45 mg/dL; Very Low Density Lipoprotein 51 mg/dL (5-40)
[2019-03-24] MEDS: hydrALAZINE 50 MG Tablet PO (06:32)
[2019-03-24 06:35] LABS: Bedside Glucose 135 mg/dL (70-110)
[2019-03-24] MEDS: amLODIPine 10 MG Tablet PO (07:47)
[2019-03-24] MEDS: Clopidogrel Bisulfate 75 MG Tablet PO (07:47)
[2019-03-24 10:41] LABS: Bedside Glucose 175 mg/dL (70-110)
[2019-03-24] MEDS: Aspirin E.C. 81 MG Tablet PO (10:44)
[2019-03-24] MEDS: DULoxetine Hcl 20 MG Capsule PO (10:46)
[2019-03-24] MEDS: Gabapentin 300 MG Capsule PO (10:46)
[2019-03-24] MEDS: Isosorbide Mononitrate 30 MG Tablet PO (10:47)
[2019-03-24] MEDS: Tolterodine Tartrate 2 MG CAP.SA PO (10:47)
[2019-03-24] MEDS: Insulin Lispro 100 UNIT/ML INSULN.PEN SC (10:48)
[2019-03-24] MEDS: Furosemide 20 MG Tablet PO (10:48)
[2019-03-24] MEDS: Pantoprazole Sodium 40 MG Tablet PO (10:48)
[2019-03-24] MEDS: Metoprolol Tartrate 50 MG Tablet PO (10:48)
--- NOTE | 2019-03-24 11:50 | DCINST_ITS ---
- Discharge Diagnoses Current Active Problems: Current Active and Chronic Problems (Last Updated 01/01/19 @ 10:04 by JUAN FRANCISCO Monroe) Chest pain (Acute) You will use the following diet at home:: Calorie/Carbohydrate Controlled (specify 1200, 1400, etc), Cardiac Your food should be the consistency of: Regular Your liquids should be the consistency of: Regular/Thin Discharge Activity: May Not Drive Additional Instructions: Hold metformin for 5 days. Metformin dose decreased to 500 mg twice daily. Allergies/Adverse Reactions: Allergies latex Allergy (Verified 03/23/19 18:48) Rash adhesive tape Adverse Reaction (Verified 03/23/19 18:48) Rash ticagrelor [From Brilinta] Adverse Reaction (Verified 03/23/19 18:48) Shortness of breath Medications to take at Discharge Clopidogrel Bisulfate [Plavix] 75 mg PO DAILY 12/20/18 Duloxetine Hcl [Cymbalta] 20 mg PO DAILY 12/20/18 Furosemide [Lasix] 20 mg PO DAILY 12/20/18 Isosorbide Mononitrate [Isosorbide Mononitrate ER] 30 mg PO DAILY 12/20/18 Lansoprazole [Prevacid] 30 mg PO DAILY 12/20/18 Levothyroxine [Synthroid] 88 mcg PO DAILY 12/20/18 Metoprolol Tartrate [Lopressor (beta brittany)] 50 mg PO BID 12/20/18 hydrALAZINE [Apresoline] 50 mg PO TID 12/20/18 Insulin Glargine,Hum.rec.anlog [Lantus] 46 units SUBCUT BREAKFAST 12/24/18 Insulin Lispro [Humalog] 0 unit SUBCUT 4X/DAY 12/24/18 aspirin 81 mg tablet,delayed release 81 mg PO DAILY 01/01/19 gabapentin 300 mg capsule 300 mg PO BID 01/01/19 amlodipine 10 mg tablet 10 mg PO DAILY #90 tab 03/01/19 Acetaminophen/Diphenhydramine [Tylenol Pm Ex-Strength Caplet] 2 tab PO QHS 03/23/19 Oxybutynin Chloride [Oxybutynin Chloride ER] 10 mg PO DAILY 03/23/19 Atorvastatin Calcium 80 mg PO QHS #30 tab 03/24/19 Metformin HCl [Metformin HCl ER] 1 tab PO BID #0 03/24/19 Senna/Docusate Sodium [Senokot-S] 2 tab PO BID PRN PRN tab 03/24/19 The following prescriptions were given: Atorvastatin Calcium 80 mg PO QHS #30 tab Transmission Status: Pending to [id number] Primary Care Physician: Fernando Kong MD [Primary Care Provider] - Please follow up with your Primary Care Physician in: [place] 2 week Test Results: Test results from this visit will be discussed in further detail at your follow- up appointment, if applicable. Please Follow Up With: Galileo Uriostegui MD When: in 3-4 weeks
--- NOTE | 2019-03-24 12:10 | STRESSREP ---
Stress Test Report Pharmacologic myocardial perfusion stress test. 83-year-old lady with a history of coronary artery disease status post previous angioplasty and stenting of the left circumflex artery. Medications Norvasc, Ecotrin, Lipitor, Plavix. Stress protocol: Resting EKG demonstrates normal sinus rhythm with a rate of 71 bpm normal intervals are noted resting blood pressure is 150/72 mmHg. 0.4 mg of regadenoson was infused per usual protocol followed by rapid intravenous saline flush injection continuous EKG monitoring was performed. The maximum heart rate attained was 101 bpm which was 72% of maximum predicted heart rate the maximum workload was 1 metabolic equivalent. At rest there were no ST or T wave changes noted suggest ischemia peak infusion nonspecific ST-T wave changes were noted. The resting blood pressure was 150/72 with a final blood pressure 130/58. Myocardial perfusion protocol. 11.0 mCi of technetium 99m sestamibi was injected at rest. 0.4 mg of regadenoson was infused per usual protocol. At peak infusion 34.3 mCi of technetium 99m sestamibi was injected stress images were obtained stress and rest images were reconstructed and compared in the short axis vertical long horizontal long axis. Gated images were also obtained per Perfusion SPECT analysis: Review of the stress images demonstrate normal uptake of tracer noted in all areas of the myocardium except for small portion of the apex with reduced perfusion. This is present on the stress and rest images to a similar extent suggestive of a previous small apical infarct. No ischemia is noted. Gated SPECT analysis: The gated ejection fraction is 87%. Conclusion: Normal pharmacologic myocardial perfusion stress test. Preserved ejection fraction. Small apical infarct cannot be excluded.
--- NOTE | 2019-03-24 12:13 | PCM.DC.SUM ---
Discharge Date and Diagnosis Date of Admission: 03/23/19 Date of Discharge: 03/24/19 - Primary Discharge Diagnosis Active and Suspected Problems (Last Updated 01/01/19 @ 10:04 by JUAN FRANCISCO Monroe) Chest pain (Acute) - Secondary Discharge Diagnosis Chronic Problems (Last Updated 01/01/19 @ 10:04 by JUAN FRANCISCO Monroe) Atherosclerotic heart disease of [place] coronary artery without angina pectoris (Chronic) Presence of coronary angioplasty implant and graft (Chronic ~12/11/18) PCI/RAMONA to mid LCX 12/11/18 Presence of stent in coronary artery (Chronic ~12/11/18) PCI/RAMONA to mid LCX 12/11/18 Lung nodule (Chronic) Chronic renal failure, stage 3 (moderate) (Chronic) Hyperlipidemia (Chronic) 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) TIA (transient ischemic attack) (Chronic) Angina pectoris (Chronic) Obstructive sleep apnea (Chronic) 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) CABG X 3, SOTO to LAD, SVG to 1st diagonal & SVG to obtuse marginal @ [facility] 04/08/16 Postlaminectomy syndrome of lumbar region (Chronic) Lumbosacral radiculopathy (Chronic) Diabetes mellitus, type 2 (Chronic) Hypertension (Chronic) History of stroke (Chronic) Fibromyalgia (Chronic) GERD (Chronic) Hypothyroidism (Chronic) Renal cancer (Chronic) Right CAD (coronary artery disease) (Chronic) CABG X 3, SOTO to LAD, SVG to 1st diagonal & SVG to obtuse marginal @ [facility] 04/08/16 Hospital Course and Treatment Imaging Results: 03/24/19 05:55 Nuclear Stress Test - Chemical [NM] AM (NON MEDS) Operations: None Summary of Care Provided: The patient is a 83 year old F with history of chronic back pain status post lumbar back surgery x3 and his stimulator follows pain management, coronary artery status post CABG three-vessel and PCI was admitted with atypical chest pain. Patient complained of substernal chest pain with radiation to right shoulder along with shortness of breath. Patient on cardiac telemetry which shows normal sinus rhythm. Serial EKGs reviewed and does not show dynamic ST-T ischemic changes. Serial troponin enzymes are negative. Patient had hypomagnesemia which was replaced. Patient had pharmacological myocardial perfusion stress test which reported no ischemia but previous small apical infarct. Gated EF 87%. Patient has multiple other comorbidities which includes hypertension, dyslipidemia, and diabetes mellitus type 2 with neuropathy, chronic back pain/lumbar degenerative joint disease, carotid disease status post left CEA, CKD stage III, hypothyroidism, anxiety and depression, GERD, and FRANKLIN on CPAP. Patient diabetes is uncontrolled, glucose noted 407 in BMP and was controlled during the hospital stay between 130 to 150 mg/dL. Fasting profile shows elevated triglyceride 253 for which atorvastatin increased from 40 mg to 80 mg daily and a prescription for the same was sent to patient's pharmacy. Discharge medication reconciliation done. Discharge follow-up instructions completed. Discharge process discussed with the patient and all questions were answered to patient's satisfaction. [] Laboratory Results 03/23/19 19:31: WBC 12.4 H, RBC 4.41, Hgb 12.3, Hct 39.8, MCV 90.2, MCH 27.9, MCHC 30.9 L, RDW Std Deviation 44.8 H, RDW Coeff of Laquita 13.6, Plt Count 253, MPV 10.9, Immature Gran % (Auto) 0.500, Neut % (Auto) 75.1 H, Lymph % (Auto) 16.6 L, [place] % (Auto) 6.0, Eos % (Auto) 1.3, Baso % (Auto) 0.5, Absolute Neuts (auto) 9.3 H, Absolute Lymphs (auto) 2.05, Nucleated RBC % 0 03/23/19 19:31: Sodium 136, Potassium 4.2, Chloride 106, Carbon Dioxide 19.0 L, Anion Gap 11, BUN 28 H, Creatinine 1.62 H, Estim Creat Clear Calc 21.54, Est GFR (MDRD) Af Amer 39 L, Est GFR (MDRD) Non-Af 32 L, BUN/Creatinine Ratio 17.3, Glucose 407 H, Calcium 7.9 L, Troponin I < 0.015 03/23/19 19:31: B-Natriuretic Peptide 197.4 H 03/23/19 19:31: Magnesium 1.5 L 03/23/19 22:05: Troponin I < 0.015 03/23/19 22:18: POC Glucose 352 H 03/24/19 00:41: Troponin I < 0.015 03/24/19 05:10: WBC 9.7, RBC 3.90 L, Hgb 11.0 L, Hct 35.2 L, MCV 90.3, MCH 28.2, MCHC 31.3 L, RDW Std Deviation 44.8 H, RDW Coeff of Laquita 13.6, Plt Count 202, MPV 11.2, Immature Gran % (Auto) 0.500, Neut % (Auto) 60.3, Lymph % (Auto) 25.2, [place] % (Auto) 9.6, Eos % (Auto) 3.8, Baso % (Auto) 0.6, Absolute Neuts (auto) 5.9, Absolute Lymphs (auto) 2.44, Nucleated RBC % 0 03/24/19 05:10: Sodium 141, Potassium 3.8, Chloride 112 H, Carbon Dioxide 21.0, Anion Gap 8, BUN 23 H, Creatinine 1.21 H, Estim Creat Clear Calc 28.84, Est GFR (MDRD) Af Amer 55 L, Est GFR (MDRD) Non-Af 45 L, BUN/Creatinine Ratio 19.0, Glucose 140 H, Calcium 7.6 L, Triglycerides 253 H, Cholesterol 121, LDL Cholesterol 25, VLDL Cholesterol 51 H, HDL Cholesterol 45 03/24/19 06:28: POC Glucose 135 H 03/24/19 10:37: POC Glucose 175 H Subjective: Seen and examined. Chest pain is resolved. No shortness of breath. Earlier patient was admitted with chest pain midsternal with radiation to right shoulder. Her pain characteristics seems musculoskeletal - Physical Exam Vitals/I&O's: Vital Signs Temp Pulse Resp BP Pulse Ox 98.1 F 68 16 147/67 H 97 03/24/19 07:38 03/24/19 10:48 03/24/19 07:38 03/24/19 07:38 03/24/19 07:45 Oxygen Flow Rate (L/min) 3 Oxygen Delivery Method Nasal Cannula Weight: 158 lb 11.725 oz Body Mass Index (BMI) 29.0 Finger Stick Blood Glucose 93 Intake and Output for Last 24 Hours 03/22/19 03/23/19 03/24/19 23:59 23:59 23:59 Intake Total 240 / 240 707.75 / 707.75 Balance 240 / 240 707.75 / 707.75 General: Alert, Oriented x3, Cooperative HEENT: Atraumatic, PERRLA, EOMI, Normocephalic Neck: Supple, No JVD, Negative Carotid Bruits Lungs: Clear to auscultation, Normal air movement, No rhonchi, No wheeze, No rales Cardiovascular: Regular rate, Regular Rhythm, Normal S1, Normal S2, No murmurs Abdomen: Bowel Sounds Present, Soft, Non Tender, Non-Distended, No Hepato-splenomegaly Extremities: Capillary Refill Less than 3 Seconds, Edema - Slight ankle edema Skin: No rashes, No breakdown Musculoskeletal: No Tenderness to Palpation of Joints or Extremities, Arthritic Changes, Tenderness - Mild tenderness over tip of right shoulder Neurological: Cranial nerves II-XII grossly intact, Neuro grossly intact Psych/Mental Status: Normal Affect, Appropriate Laboratory Results 03/23/19 19:31: WBC 12.4 H, RBC 4.41, Hgb 12.3, Hct 39.8, MCV 90.2, MCH 27.9, MCHC 30.9 L, RDW Std Deviation 44.8 H, RDW Coeff of Laquita 13.6, Plt Count 253, MPV 10.9, Immature Gran % (Auto) 0.500, Neut % (Auto) 75.1 H, Lymph % (Auto) 16.6 L, [place] % (Auto) 6.0, Eos % (Auto) 1.3, Baso % (Auto) 0.5, Absolute Neuts (auto) 9.3 H, Absolute Lymphs (auto) 2.05, Nucleated RBC % 0 03/23/19 19:31: Sodium 136, Potassium 4.2, Chloride 106, Carbon Dioxide 19.0 L, Anion Gap 11, BUN 28 H, Creatinine 1.62 H, Estim Creat Clear Calc 21.54, Est GFR (MDRD) Af Amer 39 L, Est GFR (MDRD) Non-Af 32 L, BUN/Creatinine Ratio 17.3, Glucose 407 H, Calcium 7.9 L, Troponin I < 0.015 03/23/19 19:31: B-Natriuretic Peptide 197.4 H 03/23/19 19:31: Magnesium 1.5 L 03/23/19 22:05: Troponin I < 0.015 03/23/19 22:18: POC Glucose 352 H 03/24/19 00:41: Troponin I < 0.015 03/24/19 05:10: WBC 9.7, RBC 3.90 L, Hgb 11.0 L, Hct 35.2 L, MCV 90.3, MCH 28.2, MCHC 31.3 L, RDW Std Deviation 44.8 H, RDW Coeff of Laquita 13.6, Plt Count 202, MPV 11.2, Immature Gran % (Auto) 0.500, Neut % (Auto) 60.3, Lymph % (Auto) 25.2, [place] % (Auto) 9.6, Eos % (Auto) 3.8, Baso % (Auto) 0.6, Absolute Neuts (auto) 5.9, Absolute Lymphs (auto) 2.44, Nucleated RBC % 0 03/24/19 05:10: Sodium 141, Potassium 3.8, Chloride 112 H, Carbon Dioxide 21.0, Anion Gap 8, BUN 23 H, Creatinine 1.21 H, Estim Creat Clear Calc 28.84, Est GFR (MDRD) Af Amer 55 L, Est GFR (MDRD) Non-Af 45 L, BUN/Creatinine Ratio 19.0, Glucose 140 H, Calcium 7.6 L, Triglycerides 253 H, Cholesterol 121, LDL Cholesterol 25, VLDL Cholesterol 51 H, HDL Cholesterol 45 03/24/19 06:28: POC Glucose 135 H 03/24/19 10:37: POC Glucose 175 H Current Medications Acetaminophen (Tylenol) 650 mg PO Q6H PRN PRN PRN Reason: Pain Score 1-10/Temp > 100.7 F Acetaminophen (Tylenol) 1,000 mg PO QHS [facility] Al Hydroxide/Mg Hydroxide (Mylanta Ii) 30 ml PO Q6H PRN PRN PRN Reason: Gastric Burning Albuterol Sulfate (Ventolin Aerosols) 2.5 mg INHALATION Q2H PRN PRN PRN Reason: SOB/Wheezing Amlodipine Besylate (Norvasc) 10 mg PO DAILY [facility] Last Admin: 03/24/19 07:47 Dose: 10 mg Documented by: [facility] Admin: 03/24/19 10:44 Dose: 81 mg Documented by: Atorvastatin Calcium (Lipitor) 40 mg PO QHS [facility] Last Admin: 03/23/19 23:49 Dose: 40 mg Documented by: Clopidogrel Bisulfate (Plavix) 75 mg PO DAILY [facility] Last Admin: 03/24/19 07:47 Dose: 75 mg Documented by: Diphenhydramine HCl (Benadryl) 50 mg PO QHS [facility] Duloxetine HCl (Cymbalta) 20 mg PO DAILY [facility] Last Admin: 03/24/19 10:46 Dose: 20 mg Documented by: Furosemide (Lasix) 20 mg PO DAILY [facility] Last Admin: 03/24/19 10:48 Dose: 20 mg Documented by: Gabapentin (Neurontin) 300 mg PO BIDCM [facility] Last Admin: 03/24/19 10:46 Dose: 300 mg Documented by: Glucagon () 1 mg IM .X1 PRN PRN Reason: Hypoglycemia Guaifenesin (Robitussin) 20 ml PO Q4H PRN PRN PRN Reason: COUGH Heparin Sodium (Porcine) (Heparin Na) 5,000 unit SC Q12 [facility] Last Admin: 03/23/19 23:45 Dose: 5,000 unit Documented by: Hydralazine HCl (Apresoline) 50 mg PO TID [facility] Last Admin: 03/24/19 06:32 Dose: 50 mg Documented by: Hydralazine HCl (Apresoline Iv) 10 mg IV Q4H PRN PRN PRN Reason: SBP > 160 Sodium Chloride () 1,000 mls @ 75 mls/hr IV .[id number] [facility] Last Infusion: 03/24/19 07:57 Dose: 0 mls/hr Documented by: Dextrose (Dextrose 10%-Water) 250 mls @ 999 mls/hr IV .Q16M PRN; Protocol PRN Reason: HYPOGLYCEMIA Insulin Glargine (Lantus (Bk)) 46 units SC BREAKFAST [facility] Last Admin: 03/24/19 10:45 Dose: 46 u Documented by: Insulin Human Lispro (Humalog Kwikpen ([facility])) 0 unit SC ACHS [facility]; Protocol Last Admin: 03/24/19 10:48 Dose: 1 u Documented by: Isosorbide Mononitrate (Imdur) 30 mg PO DAILY [facility] Last Admin: 03/24/19 10:47 Dose: 30 mg Documented by: Levothyroxine Sodium (Synthroid) 88 mcg PO DAILY@0600 [facility] Last Admin: 03/24/19 05:14 Dose: Not Given Documented by: Magnesium Hydroxide (Milk Of Magnesia) 30 ml PO DAILY PRN PRN PRN Reason: Constipation Melatonin (Melatonin) 3 mg PO QHS PRN PRN PRN Reason: INSOMNIA Metoprolol Tartrate (Lopressor (Beta Pancho)) 50 mg PO BID [facility] Last Admin: 03/24/19 10:48 Dose: 50 mg Documented by: Morphine Sulfate () 2 mg IV Q3H PRN PRN PRN Reason: Pain Score 6-10/10 Nitroglycerin (Nitrostat) 0.4 mg SUBLINGUAL Q5M PRN PRN Reason: CARDIAC/CHEST PAIN Ondansetron HCl (Zofran) 4 mg IV Q8H PRN PRN PRN Reason: NAUSEA/VOMITING Oxycodone HCl (Oxyir) 5 mg PO Q4H PRN PRN PRN Reason: Pain Score 4-5/10 Pantoprazole Sodium (Protonix) 40 mg PO DAILY [facility] Last Admin: 03/24/19 10:48 Dose: 40 mg Documented by: Prochlorperazine Edisylate (Compazine Iv) 5 mg IV Q4H PRN PRN PRN Reason: Breakthrough Nausea/Vomiting Psyllium Hydrophilic Mucilloid (Metamucil) 1 packet PO DAILY PRN PRN PRN Reason: Constipation Senna/Docusate Sodium (Senokot-S, Heydi-Colace) 2 tablet PO BID PRN PRN PRN Reason: Constipation Sodium Chloride () 10 - 40 ml IV UD PRN PRN Reason: SALINE FLUSH Throat Lozenges (Cepacol Sore Throat Lozenge) 1 lozenge MUCOUS MEM Q2H PRN PRN PRN Reason: SORE THROAT Tolterodine Tartrate (Detrol La) 2 mg PO DAILY [facility] Last Admin: 03/24/19 10:47 Dose: 2 mg Documented by: Discharge Activity: May Not Drive Home Medications: Medications to take at Discharge Clopidogrel Bisulfate [Plavix] 75 mg PO DAILY 12/20/18 Duloxetine Hcl [Cymbalta] 20 mg PO DAILY 12/20/18 Furosemide [Lasix] 20 mg PO DAILY 12/20/18 Isosorbide Mononitrate [Isosorbide Mononitrate ER] 30 mg PO DAILY 12/20/18 Lansoprazole [Prevacid] 30 mg PO DAILY 12/20/18 Levothyroxine [Synthroid] 88 mcg PO DAILY 12/20/18 Metoprolol Tartrate [Lopressor (beta pancho)] 50 mg PO BID 12/20/18 hydrALAZINE [Apresoline] 50 mg PO TID 12/20/18 Insulin Glargine,Hum.rec.anlog [Lantus] 46 units SUBCUT BREAKFAST 12/24/18 Insulin Lispro [Humalog] 0 unit SUBCUT 4X/DAY 12/24/18 aspirin 81 mg tablet,delayed release 81 mg PO DAILY 01/01/19 gabapentin 300 mg capsule 300 mg PO BID 01/01/19 amlodipine 10 mg tablet 10 mg PO DAILY #90 tab 03/01/19 Acetaminophen/Diphenhydramine [Tylenol Pm Ex-Strength Caplet] 2 tab PO QHS 03/23/19 Oxybutynin Chloride [Oxybutynin Chloride ER] 10 mg PO DAILY 03/23/19 Atorvastatin Calcium 80 mg PO QHS #30 tab 03/24/19 Metformin HCl [Metformin HCl ER] 1 tab PO BID #0 03/24/19 Following Prescrptions Were Given to Patient: Atorvastatin Calcium 80 mg PO QHS #30 tab Transmission Status: Sent to [id number] Primary Care Physician: Fernando Kong MD [Primary Care Provider] - Please follow up with your Primary Care Physician in: [place] 2 week Please Follow Up With: Galileo Uriostegui MD When: in 3-4 weeks Medical Necessity - Tobacco Use Smoking Status: Never smoker Tobacco Use: Non-smoker Meaningful Use Info Meaningful Use Diagnoses (Choose all that apply): None applicable Code Visit OBSV E&M: 47315 Observation care discharge
--- NOTE | 2019-03-24 13:08 | PHA.DC.MC ---
Pharmacy Service has performed discharge medication reconciliation and counseling for this patient. 1. ATORVASTATIN 80MG PO QHS The patient's discharge medication list was reviewed for discrepancies and discrepancies were resolved. SPOKE TO DR. TRONCOSO REGARDING SENNA/DOCUSATE TABLET THAT WAS INITIALLY ON D/C LIST. PT DOES NOT FEEL SHE NEEDS IT. IT HAS BEEN DISCONTINUED. Home Medications Clopidogrel Bisulfate [Plavix] 75 mg PO DAILY 12/20/18 Duloxetine Hcl [Cymbalta] 20 mg PO DAILY 12/20/18 Furosemide [Lasix] 20 mg PO DAILY 12/20/18 Isosorbide Mononitrate [Isosorbide Mononitrate ER] 30 mg PO DAILY 12/20/18 Lansoprazole [Prevacid] 30 mg PO DAILY 12/20/18 Levothyroxine [Synthroid] 88 mcg PO DAILY 12/20/18 Metoprolol Tartrate [Lopressor (beta brittany)] 50 mg PO BID 12/20/18 hydrALAZINE [Apresoline] 50 mg PO TID 12/20/18 Insulin Glargine,Hum.rec.anlog [Lantus] 46 units SUBCUT BREAKFAST 12/24/18 Insulin Lispro [Humalog] 0 unit SUBCUT 4X/DAY 12/24/18 aspirin 81 mg tablet,delayed release 81 mg PO DAILY 01/01/19 gabapentin 300 mg capsule 300 mg PO BID 01/01/19 amlodipine 10 mg tablet 10 mg PO DAILY #90 tab 03/01/19 Acetaminophen/Diphenhydramine [Tylenol Pm Ex-Strength Caplet] 2 tab PO QHS 03/23/19 Oxybutynin Chloride [Oxybutynin Chloride ER] 10 mg PO DAILY 03/23/19 Atorvastatin Calcium 80 mg PO QHS #30 tab 03/24/19 Metformin HCl [Metformin HCl ER] 1 tab PO BID #0 03/24/19 The patient was counseled on the following discharge medications and changes in medications for homegoing were reviewed. The Reason for Use, instructions for use, and potential side effects were reviewed for all new medications. The patient's questions regarding all of their medications were answered. The patient was able to verbally demonstrate an understanding of their discharge medications.
== END 2019-03-24 12:11 | disposition home or self-care (01) ==
LOC: ED 19:37 → PCU 21:12
PROVIDERS: Admitting Provider Family Medicine; Emergency Provider Emergency Medicine; PCP Family Medicine; Visit Provider Internal Medicine
DX: R07.89 Other chest pain (principal); I25.10 Atherosclerotic heart disease of native coronary artery without angina pectoris; R94.31 Abnormal electrocardiogram [ECG] [EKG]; R06.00 Dyspnea, unspecified; I25.2 Old myocardial infarction; E78.5 Hyperlipidemia, unspecified; I12.9 Hypertensive chronic kidney disease with stage 1 through stage 4 chronic kidney disease, or unspecified chronic kidney disease; N18.3 Chronic kidney disease, stage 3 (moderate); G47.33 Obstructive sleep apnea (adult) (pediatric); Z86.73 Personal history of transient ischemic attack (TIA), and cerebral infarction without residual deficits; M79.7 Fibromyalgia; K21.9 Gastro-esophageal reflux disease without esophagitis; E03.9 Hypothyroidism, unspecified; E11.40 Type 2 diabetes mellitus with diabetic neuropathy, unspecified; G89.29 Other chronic pain; E11.65 Type 2 diabetes mellitus with hyperglycemia; Z85.528 Personal history of other malignant neoplasm of kidney; Z95.1 Presence of aortocoronary bypass graft; Z79.899 Other long term (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; Z79.02 Long term (current) use of antithrombotics/antiplatelets; Z79.4 Long term (current) use of insulin; Z79.82 Long term (current) use of aspirin
CPT/HCPCS: 36415; 71045; 78452; 80048; 80061; 82962; 83735; 83880; 84484; 85025; 93005; 93017; 96360; 96361; 96372; 99218; 99251; 99285; A9500; J7030; A4216; G0378; G0463; J2785

== ENCOUNTER → 2019-04-28 09:23 | Outpatient (CLI) | payer MEDICARE, SELFPAY ==
[2018-12-11 13:27] VITALS: BMI 28.7
[2019-04-28 08:49] VITALS: BMI 29.0
--- NOTE | 2019-04-28 09:32 | RAD_ITS ---
STUDY: X-RAY CHEST REASON FOR EXAM: Female, 83 years old. Sob; cough for months; no known fever TECHNIQUE: PA and lateral views of the chest. COMPARISON: Comparison is made with prior study dated March 23, 2019. FINDINGS: Stable mild elevation of the right hemidiaphragm. Stable calcified granulomas. There is no demonstrated pleural abnormality. Normal size heart. Normal mediastinum and eddie. Normal visualized pulmonary arteries. There is atherosclerotic calcification of the aortic arch with tortuosity. There is demineralization of the osseous structures. Pain stimulator device is seen with the electrodes at the T7-T8 level. Normal visualized ribs, clavicles, and shoulders. There is no demonstrated abnormality of the visualized soft tissue structures of the upper abdomen. RAD/Chest PA and Lateral IMPRESSION: Stable examination. Electronically Signed: Sai Calhoun, at 14:21 EDT , Service support ,
[2019-04-28 10:20] LABS: Absolute Lymphocyte Count 3.29 X10^3/uL (0.83-4.51); Absolute Neutrophil Count 7.6 X10^3/uL (2.0-7.7); Basophil# 0.07 X10^3/uL; Basophil% 0.6 % (0-1); Eosinophil# 0.51 X10^3/uL; Eosinophils% 4.1 % (0-5); Hematocrit 41.1 % (37-47); Hemoglobin 12.7 g/dL (12.0-15.0); Lymphocyte # 3.29 X10^3/ul (4.0); Lymphocyte % 26.5 % (19-41); Mean Corp Hgb Conc 30.9 g/dL (32-36); Mean Corpuscular Hgb 27.2 pg (27.0-32.0); Mean Platelet Vol. 11.5 fl (6.2-12.0); Monocyte# 0.88 X10^3/uL; Monocyte% 7.1 % (0-10); NRBC Flagged by Analyzer 0 % (0-5); Neutrophil # 7.61 X10^3/uL (2.7-7.7); Neutrophil % 61.2 % (47-70); Platelet Count 300 K/mm3 (150-450); RBC Distribution Width CV 14.4 % (11.6-14.6); RBC Distribution Width SD 46.2 fl (35.1-43.9); Red Blood Count 4.67 M/mm3 (4.2-5.4); White Blood Count 12.4 K/mm3 (4.4-11.0)
[2019-04-28 10:40] LABS: BNP,B-Type NATRIURETIC PEPTIDE 49.5 pg/mL (0-100)
[2019-04-28 10:43] LABS: Anion Gap 11 (5-15); BUN 47 mg/dL (7-18); Chloride 103 mmol/L (98-107); Creatinine, Serum 1.96 mg/dL (0.55-1.02); EST Glomerular Filtration Rate 26 mL/min (>60); Est Glom Filt Rate - Afr Amer 31 mL/min (>60); Glucose 204 mg/dL (74-106); Potassium 4.1 mmol/L (3.5-5.1); Sodium Level 135 mmol/L (136-145)
== END ==
PROVIDERS: PCP Family Medicine; Referring Provider Nurse Practitioner Family; Visit Provider Nurse Practitioner Family
DX: R06.09 Other forms of dyspnea (principal); N18.3 Chronic kidney disease, stage 3 (moderate)
CPT/HCPCS: 36415; 71046; 80048; 83880; 85025

== ENCOUNTER → 2019-05-10 12:35 | Outpatient (CLI) | payer MEDICARE, SELFPAY ==
[2018-12-11 13:27] VITALS: BMI 28.7
[2019-04-28 08:49] VITALS: BMI 29.0
[2019-05-10 13:23] LABS: Hemoglobin A1c 8.5 % (4.2-6.3)
[2019-05-10 13:40] LABS: AST(SGOT) 19 U/L (15-37); Alanine Aminotransfer ALT/SGPT 26 U/L (13-56); Anion Gap 8 (5-15); BUN 32 mg/dL (7-18); Calcium,Total 9.6 mg/dL (8.5-10.1); Chloride 105 mmol/L (98-107); EST Glomerular Filtration Rate 33 mL/min (>60); Est Glom Filt Rate - Afr Amer 40 mL/min (>60); Glucose 179 mg/dL (74-106); Potassium 4.3 mmol/L (3.5-5.1); Sodium Level 140 mmol/L (136-145); Thyroid Stim Hormone (TSH) 0.46 uIU/mL (0.358-3.74)
== END ==
PROVIDERS: PCP Family Medicine; Referring Provider Internal Medicine Endocrinology, Diabetes & Metabolism; Visit Provider Internal Medicine Endocrinology, Diabetes & Metabolism
DX: E11.65 Type 2 diabetes mellitus with hyperglycemia (principal); E11.42 Type 2 diabetes mellitus with diabetic polyneuropathy; E03.8 Other specified hypothyroidism
CPT/HCPCS: 36415; 80048; 83036; 84443; 84450; 84460

== ENCOUNTER → 2019-06-17 12:26 | Outpatient (CLI) | payer MEDICARE, SELFPAY ==
[2018-12-11 13:27] VITALS: BMI 28.7
[2019-06-09 10:53] VITALS: BMI 29.0
[2019-06-17 12:48] VITALS: PULSE 67; PULSE 70; PULSE 73; PULSE 77; PULSE 82; PULSE 86; O2SAT 92; O2SAT 93; O2SAT 94; O2SAT 95
--- NOTE | 2019-06-18 11:36 | PCM.PSN.6M ---
PSN 6 Minute Walk Test - 6 Minute Walk Test 6 Minute Walk Test: 6 Minute Walk Test PSN:6-Minute Walk Test Start: 06/17/19 12:48 Freq: Status: Active Protocol: [id number] Document 06/17/19 12:48 [facility] (Rec: 06/17/19 12:52 [facility] [id number]) 6 Minute Walk Test Date Performed 06/17/19 Time Performed 12:30 Height 5 ft 3 in Weight: 163 lb Weight in Pounds 163.[address]: Kacie Arthur Assistive device used: None Pre-test Oxygen Delivery Method Room Air Pulse Ox (%) 94 Pulse Rate (60-100 beats/min) 67 Dyspnea Nando Scale (0-10) 4 Reported Symptoms Increased Work of Breathing 1st minute Oxygen Delivery Method Room Air Pulse Ox (%) 93 Pulse Rate (60-100 beats/min) 73 Dyspnea Nando Scale (0-10) 5 Number of Rests Taken 1 Reported Symptoms Increased Work of Breathing 2nd minute Oxygen Delivery Method Room Air Pulse Ox (%) 92 Pulse Rate (60-100 beats/min) 77 Dyspnea Nando Scale (0-10) 5 Number of Rests Taken 1 Reported Symptoms Increased Work of Breathing 3rd minute Oxygen Delivery Method Room Air Pulse Ox (%) 93 Pulse Rate (60-100 beats/min) 82 Dyspnea Nando Scale (0-10) 7 Number of Rests Taken 1 Reported Symptoms Increased Work of Breathing 4th minute Oxygen Delivery Method Room Air Pulse Ox (%) 92 Pulse Rate (60-100 beats/min) 82 Dyspnea Nando Scale (0-10) 6 Number of Rests Taken 1 Reported Symptoms Increased Work of Breathing 5th minute Oxygen Delivery Method Room Air Pulse Ox (%) 94 Pulse Rate (60-100 beats/min) 82 Dyspnea Nando Scale (0-10) 6 Number of Rests Taken 1 Reported Symptoms Increased Work of Breathing 6th minute Oxygen Delivery Method Room Air Pulse Ox (%) 93 Pulse Rate (60-100 beats/min) 86 Dyspnea Nando Scale (0-10) 6 Reported Symptoms Increased Work of Breathing Post-test Oxygen Delivery Method Room Air Pulse Ox (%) 95 Pulse Rate (60-100 beats/min) 70 Dyspnea Nando Scale (0-10) 4 Reported Symptoms Increased Work of Breathing Full Laps Walked 8 Partial Lap, Number of Tiles Walked 24 Total Distance Walked (ft) 496 - Interpretation Interpretation: The patient ambulated 496 feet over the course of 6 minutes beginning on room air without assistive devices or breaks. Pretesting oxygen saturation was noted to be 94% on room air. With ambulation, the yue oxygen saturation was 92%. Although there was evidence of impaired walk distance, there was no significant exertional oxygen desaturation. - Recommendations Recommendations: There is no indication for the use of supplemental oxygen at this time.
== END ==
PROVIDERS: PCP Family Medicine; Referring Provider Nurse Practitioner Acute Care; Visit Provider Nurse Practitioner Acute Care
DX: R06.02 Shortness of breath (principal)
CPT/HCPCS: 94618

== ENCOUNTER → 2019-07-02 12:39 | Outpatient (CLI) | payer MEDICARE, SELFPAY ==
[2018-12-11 13:27] VITALS: BMI 28.7
[2019-06-09 10:53] VITALS: BMI 29.0
--- NOTE | 2019-07-04 08:20 | PFT ---
INTRODUCTION: The patient is an 83-year-old female that presents for pulmonary function studies secondary to a diagnosis of COPD. Respiratory therapy reports good patient effort. Bronchodilators were used during testing. INTERPRETATION: Forced expiration spirometry demonstrates no evidence of a large airways obstructive ventilatory defect. There was no significant response to aerosolized bronchodilators. Spirograms are of good quality and plateau normally. Body plethysmography was performed and reveals a decreased TLC to 3.6 L, 80% of predicted, indicative of a mild restrictive ventilatory impairment. Diffusing capacity by single breath CO is within normal limits. IMPRESSION: Isolated mild restrictive ventilatory impairment with preserved diffusing capacity.
== END ==
PROVIDERS: PCP Family Medicine; Referring Provider Nurse Practitioner Acute Care; Visit Provider Nurse Practitioner Acute Care
DX: R06.02 Shortness of breath (principal)
CPT/HCPCS: 94060; 94726; 94729

== ENCOUNTER 2019-08-10 08:20 | Day surgery (SDC) | payer MEDICARE, SELFPAY ==
[2018-12-11 13:27] VITALS: BMI 28.7
[2019-07-28 10:53] VITALS: BMI 29.1
[2019-08-06 10:05] VITALS: BMI 29.1
[2019-08-06 11:25] LABS: Hemoglobin 12.4 g/dL (12.0-15.0); Mean Corpuscular Hgb 27.9 pg (27.0-32.0); Mean Corpuscular Volume 90.1 fL (81-99); Mean Platelet Vol. 11.3 fl (6.2-12.0); Platelet Count 294 K/mm3 (150-450); RBC Distribution Width CV 14.6 % (11.6-14.6); RBC Distribution Width SD 47.7 fl (35.1-43.9); Red Blood Count 4.44 M/mm3 (4.2-5.4); White Blood Count 9.4 K/mm3 (4.4-11.0)
[2019-08-06 11:34] LABS: International Normalized Ratio 0.9; Prothrombin Time (Protime)PT. 11.6 SECONDS (11.7-14.9)
[2019-08-06 11:35] LABS: Partial Thromboplast Time 26.8 Seconds (24.1-36.2)
[2019-08-06 11:40] LABS: Anion Gap 10 (5-15); BUN 30 mg/dL (7-18); BUN/Creat Ratio 17.6 RATIO (10-20); Calcium,Total 8.9 mg/dL (8.5-10.1); Chloride 106 mmol/L (98-107); EST Glomerular Filtration Rate 31 mL/min (>60); Est Glom Filt Rate - Afr Amer 37 mL/min (>60); Glucose 197 mg/dL (74-106); Potassium 4.5 mmol/L (3.5-5.1); Sodium Level 138 mmol/L (136-145)
--- NOTE | 2019-08-09 11:21 | HP.PCM_ITS ---
<Bam Phillips - Last Filed: 08/09/19 16:42> History and Physical Date of Admission: 08/10/19 GLORIA PAUL, is a 83 year old white female who presents to the [facility] today for a heart catheterization. She has a history of coronary artery disease, s/p PCI, s/p CABG, paroxysmal atrial fibrillation, hypertension, hype rlipidemia, FRANKLIN and CPAP, and diabetes. As you recall, she had bypass surgery in March 2016. She had an SOTO to the LAD, SVG to the first diagonal, SVG to the obtuse marginal. She underwent sten ting to her circumflex in December 2018. She was admitted to [facility] on 03/23/2019 for chest pain. She underwent a stress test that was negative for ischemia. Troponins remained negative. At the present time her main concern is her progressive shortness of breath and dyspnea. She notes it is more so when she exerts herself. She does not complain of obvious orthopnea or PND. She has had no peripheral pitting edema. She does not complain of associated chest discomfort. There has been no palpitations. She has undergone pulmonary evaluation with a 6-minute walk test and PFTs. She was not reported as having acute desaturation with her 6-minute walk test. Her PFTs were demonstrating a mild restrictive component. She states she was told by pulmonology that the concern of her shortness of breath and dyspnea was most likely more cardiac than pulmonary. Intake Vital Signs: See EMR Intake Visit Reasons: [facility] Director Of Consumer Marketing Required: No Accompanied by: Allergies latex Allergy (Verified 07/28/19 10:53) Rash adhesive tape Adverse Reaction (Verified 07/28/19 10:53) Rash ticagrelor [From Brilinta] Adverse Reaction (Verified 07/28/19 10:53) Shortness of breath Medications See EMR [facility] Medical History Pure hypercholesterolemia (Chronic) Essential hypertension (Chronic) Hypothyroidism (Chronic) GERD (gastroesophageal reflux disease) (Chronic) Atherosclerotic heart disease of [place] coronary artery without angina pectoris (Chronic) Presence of stent in coronary artery (Chronic ~12/11/18) Carotid stenosis, left (Acute) Debility (Acute) Chronic renal failure, stage 3 (moderate) (Chronic) 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) Angina pectoris (Chronic) Obstructive sleep apnea (Chronic) Lumbosacral radiculopathy (Chronic) Diabetes mellitus, type 2 (Chronic) Renal cancer (Chronic) Chest pain (Acute) Dyspnea on exertion (Acute) Edema (Acute) Fatigue (Acute) Shortness of breath (Acute) Fibromyalgia (Chronic) History of stroke (Chronic) TIA (transient ischemic attack) (Chronic) CAD (coronary artery disease) (Inactive) Surgical History History of coronary artery bypass graft x 3 (Chronic ~04/08/16) Presence of coronary angioplasty implant and graft (Chronic ~12/11/18) History of back surgery (Resolved) History of hysterectomy (Resolved) History of knee replacement procedure of right knee (Resolved) History of right inguinal hernia repair (Resolved) Postlaminectomy syndrome of lumbar region (Resolved) Family History Father Heart disease Mother Breast cancer Diabetes Heart disease Social History (Updated 07/28/19 @ 12:[address] Galileo Uriostegui MD) Smoking Status: Never smoker alcohol intake: never caffeine: No ROS Const Const: Positive for fatigue (increased) and weakness (increased); negative for frequent falls, excessive sweating, weight gain or weight loss Eyes Eyes: Negative for transient loss of vision, blurry vision or change in vision ENT ENT: Negative for dizziness or balance problems Cardio Chest Pain: No Palpitations: No Edema: None Muscle aches with walking: None Resp Respiratory: Positive for SOB with activity (increased), Cough (dry) and other (wear CPAP @night); negative for SOB at rest GI GI: Negative vomiting or vomiting blood/hematemesis : Negative for hematuria Musc Musc: Positive for muscle aches/ myalgia (generalized aches and pain); negative for muscle weakness, joint pain or balance problems Skin Skin: Negative non-healing lesions or rash Neuro Neuro: Positive for weakness (increased); negative for dizziness, lightheadedness, orthostatic symptoms, frequent falls or blurry vision Kali Hematologic/Lymphatic: Negative for easy bleeding Endo Endo: Positive for fatigue (increased); negative for excessive sweating Psych Psych: Negative for anxiety or depression Allergy Allergy/Immunology: Negative for hives, Negative for rash Cardiology Exam Const Appearance: cooperative, healthy appearing, comfortable, no acute distress, well developed and well groomed Nutritional Appearance: well nourished and overweight Orientation: alert, awake and oriented x3 Head Head: normal to inspection, normocephalic and atraumatic Ears: hearing grossly normal bilaterally Nose: external nose normal Eyes General: appearance normal, both eyes and all related structures Eyelids: eyelids normal Conjunctivae: conjunctivae normal Pupils: PERRL EOM: EOM intact bilaterally Neck Neck: normal visual inspection, full ROM and no JVD Carotids: normal carotid upstroke Chest Chest inspection: normal inspection of the chest, symmetric chest movement and normal respiratory effort; negative cough Auscultation: Bilateral: Clear to Auscultation Cardio Palpation: normal PMI Rate: regular rate Rhythm: regular rhythm Heart sounds: S1 normal and S2 normal; negative rub, gallop or murmur GI GI: normal to inspection, soft and bowel sounds present Neuro General: alert, awake, oriented x3, CN's II-XI intact bilaterally and moves all extremities Skin Skin: no rashes or lesions noted Extremities Pulses: Normal: Right Posterior Tibial Pulse, Left Posterior Tibial Pulse, Right Radial Pulse, Left Radial Pulse Lower Extremity Edema: None: Bilateral Psych Psychological: normal affect Assessment & Plan 1. Atherosclerosis of [place] coronary artery of [place] heart without angina pectoris I25.10 Plan At the present time she is going to continue risk factor modification medical therapy. She will have to consider, based upon her progressive shortness of breath and dyspnea, as to any concerns of potential progressive CAD, in-stent restenosis, etc. that would be contributing to her symptoms that would warrant reevaluation in the cardiac catheterization laboratory. This was discussed with her and her spouse and they wish to proceed with heart catheterization to evaluate further. Based on results, further recommendation will be made. 2. Presence of stent in coronary artery Z95.5 PCI/RAMONA to mid LCX 12/11/18 Plan She has undergone previous PCI as noted above. Again at the moment she will continue her current medical therapy and consider her options in the future with respect to additional evaluation in the cardiac catheterization laboratory. 3. History of coronary artery bypass graft x 3 Z95.1 CABG X 3, SOTO to LAD, SVG to 1st diagonal & SVG to obtuse marginal @ [facility] 04/08/16 Plan She has undergone previous CABG. Her most recent cardiac catheterization is noted. It was reviewed with her. Again if there is concern about her symptoms being related to progressive CAD and noting that she has already gone through a recent stress test she will have to be considered for repeat evaluation in the cardiac catheterization laboratory. 4. Pure hypercholesterolemia E78.00 Plan She will continue risk factor evaluation and care. 5. Essential hypertension I10 Plan She will continue antihypertensive therapy with adjustment as deemed appropriate. 6. Shortness of breath R06.02 Plan If she elects to proceed with repeat cardiac catheterization it may not be unreasonable to consider a right heart catheterization as well based on her concerns of shortness of breath and dyspnea. This may help with her cardiopulmonary evaluation. Supplemental Info Supplemental Information Echocardiogram from 11/24/2018: Interpretation Summary The study was technically difficult. Contrast injection was performed. Left ventricular systolic function is normal. The estimated ejection fraction is 65 %. The left atrium is mildly enlarged. Mild (1+) mitral valve insufficiency. Trivial tricuspid valve insufficiency. Trivial pulmonic valve insufficiency. Unable to estimate RV systolic pressure/pulmonary artery pressure due to technically difficult study. No evidence for diastolic dysfunction. Nuclear stress test from 03/24/2019: Conclusion: Normal pharmacologic myocardial perfusion stress test. Preserved ejection fraction. Small apical infarct cannot be excluded. CORONARY ANGIOGRAPHY 12/2018: DOMINANCE: Right Dominant LEFT HEART ASSESSMENT Left Ventricular Ejection Fraction: Not assessed Normal Left Ventricular End Diastolic Pressure LVEDP: 9 mmHg LEFT MAIN: proximal: 25 % Stenosis LEFT ANTERIOR DESCENDING ARTERY: PROX LAD: Moderate calcification, eccentric: 85 % Stenosis MID LAD: to distal vessel: fills from competitive flow / predominantly SOTO graft flow DIAGONAL 1: Mid - fills from competitive flow / predominantly SVG graft flow CIRCUMFLEX ARTERY: PROX CIRC: 50 % Stenosis MID CIRC: long: diffuse: 85 % Stenosis OM 1: Proximal - fills from antegrade flow RIGHT CORONARY ARTERY: Mild luminal irregularities GRAFTS: SOTO graft to the Mid LAD is patent with no angiographically significant appearing disease distal to the graft attachment Saphenous Vein graft to the 1st Diagonal is patent with no angiographically significant appearing disease distal to the graft attachment Saphenous Vein graft to the 1st OM is totally occluded PCI 12/2018: Successful PCI with Drug eluting stent and PTCA to the mLCx Procedure Criteria Procedure Type: Elective COVID Risk Discussion: The surgeon/proceduralist and patient have discussed in detail the risk of exposure to and/or potential harm posed by the COVID-19 virus with having a surgery/procedure at this time versus the risk of delaying the surgery/procedure. It is not possible to know either the risk of delaying the surgery or procedure or chance of getting an infection with perfect accuracy, but a joint decision was made between the patient and the surgeon/proceduralist to proceed at this time with the scheduled surgery/procedure as indicated on the consent form. <Galileo Uriostegui - Last Filed: 08/10/19 07:48> History and Physical Addendum: Date: 08-10-2019 I have re-examined the patient. There are no clinical changes since date of exam.
[2019-08-09 14:28] VITALS: BMI 29.1
--- NOTE | 2019-08-10 12:10 | CL.D_ITS ---
Patient Name: GLORIA PAUL Study Date: 08/10/2019 Performing: Galileo Uriostegui MD Ht: 62.99 inches 160 cm : 1935 Wt: 165.35 lbs 75 kg Age: 83 Gender: female BSA: 1.78 PROCEDURE(S) PERFORMED NH16-TIV/LHC/COR/CABG CLINICAL PROFILE AND INDICATIONS Indications: Worsening Angina, Suspected CAD Heart Failure: None Stress/Imaging Date: 03/24/2019Stress Test with SPECT MPI: Negative Angina Classification Anginal Classification w/in 2 Weeks: Anginal Equivalent Dyspnea CAD Presentations: Other: Angina Pectoris Equivalent: exertional dyspnea CONCLUSIONS Right heart pressures - borderline to mildly elevated RVSP The patient has pulmonary hypertension which is borderline to mild with respect to PASP Intracardiac shunting: None Normal Left Ventricular End Diastolic Pressure Tribe Multivessel CAD LCX OM1: stent: occluded SOTO to LAD: patent SVG to DX1: patent SVG to OM1: occluded: chronic Right to Left Collateral flow: faint Case discussed / reviewed with Familia Patton MD of Interventional Cardiology RECOMMENDATIONS Risk factor modification Medical therapy DESCRIPTION OF PROCEDURE The patient arrived to the procedure lab. The risks and benefits of the procedure as well as a full d escription of our services here and current unavailability of surgical backup were fully explained to the patient and/or their significant other prior to the catheterization. The Timeout was completed, verifying the correct patient and procedure. The patient's procedural site was prepped and draped in the usual fashion. Local anesthetic was given subcutaneously to right groin region with Lidocaine 2%. Using a modified Seldinger technique, arterial access was obtained via the right femoral artery, a 4 Fr sheath was inserted Venous access was obtained via the right femoral vein, a 7Fr sheath was insert ed. A 7Fr thermal dilution catheter was inserted and right heart pressures were recorded, it was then advanced to PA position for cardiac outputs. O2 saturations were then obtained. LV to AO pullback pr essures were then recorded. The Thermal dilution catheter was then removed. Left Coronary Artery selective angiography was performed in multiple views using a 4 Fr. JL5 catheter. Right Sandoval ry Artery selective angiography was then performed in multiple views using a 4 Fr. 3DRC catheter. Sap henous Vein graft to the DIAG 1 selective angiography was performed in multiple views using a 4 Fr. 3 DRC catheter. Left internal mammary artery graft to the LAD selective angiography was performed in mu ltiple views using a 4 Fr. JR4 catheter.The arterial sheath was pulled and manual compression applied until hemostasis is achieved.. The venous sheath was then pulled and manual compression applied unti l hemostasis achieved CORONARY ANGIOGRAPHY DOMINANCE: Right Dominant LEFT HEART ASSESSMENT Left Ventricular Ejection Fraction: Not assessed Normal Left Ventricular End Diastolic Pressure LVEDP: 9 mmHg RIGHT HEART ASSESSMENT Thermal CO: 5.22 Thermal CI: 2.93 Yasmin CO: 7.02 Yasmin CI: 3.94 PW: 13/14 8 PA: 34/9 19 RV: 30/2 6 RA: 2/7 3 PVR: 169 SVR: 1140 Aortic Valve Area: >3.50 Aortic Valve Index: 1.97 Aortic Valve Mean Gradient: 14.7 Mitral Valve Area: 3.31 Mitral Valve index: 1.86 Mitral Valve Mean Gradient: 13.7 Right Heart pressures: borderline / mildly elevated RVSP Pulmonary Hypertension: borderline mildly elevated PASP Intracardiac shunting: None LEFT MAIN: proximal: 25 % Stenosis LEFT ANTERIOR DESCENDING ARTERY: PROX LAD: Moderate calcification, eccentric: 85 % Stenosis MID LAD: to distal vessel: fills from competitive flow / predominantly SOTO graft flow DIAGONAL 1: Proximal - fills from antegrade flow and SVG graft flow CIRCUMFLEX ARTERY: PROX CIRC: Moderate calcification, 50 % Stenosis MID CIRC: Previously placed stent is patent with instent restenosis: 25% (continuing on as a small ca liber vessel) OM 1: Proximal - Previously placed stent is occluded RIGHT CORONARY ARTERY: Mild luminal irregularities GRAFTS: SOTO graft to the Mid LAD is patent with no angiographically significant appearing disease distal to the anastomosis Saphenous Vein graft to the 1st Diagonal is patent with no angiographically significant appearing dis ease distal to the anastomosis Saphenous Vein graft to the 1st OM is totally occluded (chronic / not reevaluated during this examina tion) COLLATERAL FLOW: Collateral flow from Right to Left (faint) COMPLICATIONS No Complications PROCEDURE MEDICATIONS Versed 1 mg IV Plavix 75 mg PO 08/10/2019 09:50:03 IV Fluids: .9 NaCl IV started @ 100 ml/hr 08/10/2019 09:00:48 SUMMARY OF HEMODYNAMIC DATA Time AIR REST ECG 08:59:56 RA 2/7 (3) SV 10:25:15 RV 30/2, 6 10:25:57 RV 29/2, 6 10:26:45 PA 34/9 (19) PA 10:34:54 PW 13/14 (8) PV 10:37:37 LV 173/-24, 11 10:40:07 LV 169/-23, 9 10:40:14 LV 169/-23, 10 10:40:40 PW 12/15 (13) 10:40:40 LVp 171/-21, 11 10:41:10 AOp 171/59 (103) 10:41:15 AO 170/61 (103) SA 10:41:58 AO 131/68 (97) 10:49:16 Valve Area (c P-P/ms Time AIR REST Mitral 3.32 13.7 mn/220 ms3.0 pk/220 ms 10:40:40 Aortic 3.50 14.7 mn/61 ms 10:41:10 Type SV CO (l/m) CI (l/m/ HR Time AIR REST Thermal 81.60 5.22 2.93 64 08:59:56 Yasmin 109.70 7.02 3.94 64 08:59:56 Label % O2 Pres/Loc Time AIR REST AO 94 PV 10:42:05 SVC 69 10:42:11 IVC 74 SV 10:45:06 PA 67 PA 10:45:14 Signed By Galileo Uriostegui MD On 08/10/2019 12:10:16 Signed By Galileo Uriostegui MD On 08/10/2019 12:10:03 Galileo Uriostegui MD
[2019-08-11 10:06] LABS: VBG BASE EXCESS 1 mmol/L (-1.0-3.5); VBG Bicarbonate 26 mmol/L (22-26); VBG Oxygen Content 27 mmol/L (23-33); VBG PO2 36 mmHg (25-40); VBG SO2 67 % (50-70); VBG pCO2 43.2 mmHg (41-51); VBG pH 7.39 (7.32-7.42)
[2019-08-11 10:06] LABS: Base Excess -1 mmol/L (-2 to +2); Bicarbonate 23.3 mmol/L (22-26); PO2 68 mmHG (75-100); SO2 94 % (95-99); Total Carbon Dioxide 24 mmol/L; pCO2 36.9 mmHg (35-45); pH 7.41 (7.35-7.45)
[2019-08-11 10:06] LABS: VBG BASE EXCESS 1 mmol/L (-1.0-3.5); VBG Bicarbonate 25 mmol/L (22-26); VBG Oxygen Content 27 mmol/L (23-33); VBG PO2 39 mmHg (25-40); VBG SO2 74 % (50-70); VBG pCO2 41.1 mmHg (41-51)
[2019-08-11 10:06] LABS: VBG BASE EXCESS 0 mmol/L (-1.0-3.5); VBG Bicarbonate 25 mmol/L (22-26); VBG Oxygen Content 26 mmol/L (23-33); VBG PO2 37 mmHg (25-40); VBG SO2 69 % (50-70); VBG pCO2 41.8 mmHg (41-51); VBG pH 7.39 (7.32-7.42)
== END 2019-08-10 15:30 | disposition home or self-care (01) ==
LOC: CLSP 08:21
PROVIDERS: PCP Family Medicine; Referring Provider Internal Medicine Cardiovascular Disease; Visit Provider Internal Medicine Cardiovascular Disease
DX: I25.810 Atherosclerosis of coronary artery bypass graft(s) without angina pectoris (principal); I25.82 Chronic total occlusion of coronary artery; R06.02 Shortness of breath; R06.09 Other forms of dyspnea; Z95.5 Presence of coronary angioplasty implant and graft; Z95.1 Presence of aortocoronary bypass graft; E78.00 Pure hypercholesterolemia, unspecified; I10 Essential (primary) hypertension; I34.0 Nonrheumatic mitral (valve) insufficiency; Z79.899 Other long term (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; Z91.040 Latex allergy status; I27.20 Pulmonary hypertension, unspecified
CPT/HCPCS: 36415; 80048; 85027; 85610; 85730; 93457; 99152; 99153; J7040; Q9967; C1751; C1769; C1894

== ENCOUNTER → 2019-08-12 10:07 | Outpatient (CLI) | payer MEDICARE, SELFPAY ==
[2018-12-11 13:27] VITALS: BMI 28.7
[2019-08-09 14:28] VITALS: BMI 29.1
[2019-08-12 11:18] LABS: Hemoglobin A1c 7.9 % (3.8-5.6)
[2019-08-12 14:20] LABS: Anion Gap 8 (5-15); BUN 24 mg/dL (7-18); BUN/Creat Ratio 15.4 RATIO (10-20); Calcium,Total 9.2 mg/dL (8.5-10.1); Chloride 104 mmol/L (98-107); Creatinine, Serum 1.56 mg/dL (0.55-1.02); EST Glomerular Filtration Rate 34 mL/min (>60); Est Glom Filt Rate - Afr Amer 41 mL/min (>60); Glucose 218 mg/dL (74-106); Potassium 3.9 mmol/L (3.5-5.1); Sodium Level 134 mmol/L (136-145)
== END ==
PROVIDERS: PCP Family Medicine; Referring Provider Internal Medicine Cardiovascular Disease; Visit Provider Internal Medicine Cardiovascular Disease
DX: Z01.818 Encounter for other preprocedural examination (principal); M65.4 Radial styloid tenosynovitis [de Quervain]
CPT/HCPCS: 36415; 80048; 83036

== ENCOUNTER → 2019-08-18 10:18 | Outpatient (CLI) | payer MEDICARE, SELFPAY ==
[2018-12-11 13:27] VITALS: BMI 28.7
[2019-08-09 14:28] VITALS: BMI 29.1
[2019-08-18 11:18] LABS: Microalbumin,Random Urine 12.9 mg/L (NO RANGE EST.); Microalbumin:Creatinine Ratio 22.4 mg/g CRE (<30 mg/g CRE)
[2019-08-18 11:19] LABS: AST(SGOT) 14 U/L (15-37); Alanine Aminotransfer ALT/SGPT 23 U/L (13-56); Anion Gap 12 (5-15); BUN 28 mg/dL (7-18); BUN/Creat Ratio 17.2 RATIO (10-20); Calcium,Total 8.9 mg/dL (8.5-10.1); Chloride 105 mmol/L (98-107); Creatinine, Serum 1.63 mg/dL (0.55-1.02); EST Glomerular Filtration Rate 32 mL/min (>60); Est Glom Filt Rate - Afr Amer 39 mL/min (>60); Glucose 171 mg/dL (74-106); Potassium 4.4 mmol/L (3.5-5.1); Sodium Level 138 mmol/L (136-145)
[2019-08-18 11:40] LABS: Hemoglobin A1c 7.9 % (3.8-5.6)
== END ==
PROVIDERS: PCP Family Medicine; Referring Provider Internal Medicine Endocrinology, Diabetes & Metabolism; Visit Provider Internal Medicine Endocrinology, Diabetes & Metabolism
DX: E11.65 Type 2 diabetes mellitus with hyperglycemia (principal)
CPT/HCPCS: 36415; 80048; 82043; 82570; 83036; 84450; 84460

== ENCOUNTER 2019-09-17 10:53 | Day surgery (SDC) | payer MEDICARE, SELFPAY ==
[2018-12-11 13:27] VITALS: BMI 28.7
[2019-08-09 14:28] VITALS: BMI 29.1
--- NOTE | 2019-09-13 09:28 | EKG12_ITS ---
Test Reason : PRE OP Blood Pressure : / mmHG Vent. Rate : 059 BPM Atrial Rate : 059 BPM P-R Int : 188 ms QRS Dur : 080 ms QT Int : 440 ms P-R-T Axes : 033 014 024 degrees QTc Int : 435 ms Sinus bradycardia Low voltage QRS Borderline ECG Confirmed by LAURA BENITEZ, CARRIE ([id number]), electronic news gathering editor KATHI TSE ([id number]) on 09/14/2019 8:43:48 AM Referred By: Torrey Davis Confirmed By:CARRIE SANCHEZ MD
[2019-09-13 10:03] LABS: Anion Gap 10 (5-15); BUN 29 mg/dL (7-18); BUN/Creat Ratio 16.3 RATIO (10-20); Calcium,Total 8.9 mg/dL (8.5-10.1); Chloride 104 mmol/L (98-107); Creatinine, Serum 1.78 mg/dL (0.55-1.02); EST Glomerular Filtration Rate 29 mL/min (>60); Est Glom Filt Rate - Afr Amer 35 mL/min (>60); Glucose 351 mg/dL (74-106); Potassium 3.8 mmol/L (3.5-5.1); Sodium Level 137 mmol/L (136-145)
[2019-09-17] VITALS (8 sets, daily range): BP systolic 134–154; BP diastolic 61–69; PULSE 52–73; RESP 16; TEMP 36.6–36.9; O2SAT 96–99; BMI 29.4
[2019-09-17 12:00] LABS: Bedside Glucose 192 mg/dL (70-110)
[2019-09-17] MEDS: Lactated Ringers 1,000 ML 75 ML IV (12:30)
[2019-09-17] MEDS: Cefazolin 1 GM/50 ML BAG IV (12:37)
--- NOTE | 2019-09-17 13:13 | PCM.OP.PRO ---
Procedure Report Date of Procedure: 09/17/19 Preoperative diagnosis left De Quervains tendinitis Postoperative diagnosis same Title of operation release of De Quervains tendinitis Surgeon:: Dr. Torrey Davis Anesthesia: Local with MAC Anesthesia provider Dr. Carpenter/[employer] Complications: None EBL: Minimal Indications for surgery: Patient had radial sided wrist pain and failed conservative measures. Based on history and physical exam they were diagnosed with tendinitis. They did wish to have surgical release. Appropriate consent was obtained and signed Surgery: Patient was brought to the operating room. Appropriate anesthetic given. Timeouts performed. Upper extremity was prepped padded draped in usual orthopedic sterile fashion for the procedure. Area was injected with 8 cc of 1% lidocaine plain under standard sterile technique. Tourniquet had been applied to the left upper extremity. Left upper extremity was exsanguinated. Tourniquet applied to 250 mmHg. Transverse incision was made just proximal to the radial styloid. Full-thickness skin flaps raised. First dorsal wrist extensor compartment opened. APL and EPB tendons identified and completely released. This was done from proximal to distal. Each tendon was raised to confirm its identity incomplete release. No abnormalities otherwise noted. Tourniquet was let down. Wound was thoroughly irrigated. Skin edges reapproximated with inverted 3-0 Vicryl, running 4-0 Monocryl, skin prep, Steri-Strips, sterile bandage soft. Patient will be discharged home. Follow-up in the office is scheduled. Pain medication if needed. Ice and elevation.
== END 2019-09-17 15:04 | disposition home or self-care (01) ==
LOC: SDC 10:55 → AC 10:55
PROVIDERS: Anesthesiology; PCP Family Medicine; Referring Provider Orthopaedic Surgery; Visit Provider Orthopaedic Surgery
PROC: (CPT 25000; principal; 2019-09-17 12:15)
DX: M65.4 Radial styloid tenosynovitis [de Quervain] (principal); E11.9 Type 2 diabetes mellitus without complications; I10 Essential (primary) hypertension; E78.00 Pure hypercholesterolemia, unspecified; M81.0 Age-related osteoporosis without current pathological fracture; Z86.73 Personal history of transient ischemic attack (TIA), and cerebral infarction without residual deficits; Z95.1 Presence of aortocoronary bypass graft; Z85.528 Personal history of other malignant neoplasm of kidney
CPT/HCPCS: 25000; 36415; 80048; 82962; 87635; 93005; 94799; J7120; U0003

== ENCOUNTER → 2019-10-25 12:50 | Outpatient (CLI) | payer MEDICARE, SELFPAY ==
[2018-12-11 13:27] VITALS: BMI 28.7
[2019-09-17 11:15] VITALS: BMI 29.4
--- NOTE | 2019-10-25 12:52 | CDU_ITS ---
Reason For Study: Carotid stenosis Rt. Velocities/BP Lt. Velocities/BP Prox CCA 160.9/5 cm/sec. Prox CCA 128.4/6 cm/sec. Mid CCA 97.4/9 cm/sec. Mid CCA 90/11.5 cm/sec. Dist CCA 82.7/10.2 cm/sec. Dist CCA 84.6/13.3 cm/sec. Prox ICA 71.6/11.4 cm/sec. Prox ICA 101/13.3 cm/sec. Mid ICA 81.4/15.1 cm/sec. Mid ICA 97.4/11.5 cm/sec. Dist ICA 72.8/11.4 cm/sec. Dist ICA 75.4/13.3 cm/sec. Rt. ICA/CCA = 0.8. Lt. ICA/CCA = 1.1. Prox ECA 141.1 cm/sec. Prox ECA 210.6 cm/sec. Rt. Vert. 47.6/8 cm/sec. Lt. Vert. 58.6/9.1 cm/sec. Right Extracranial There is intimal thickening but no significant atherosclerotic plaque noted in the right common carotid artery. There is heterogeneous, irregular atherosclerotic plaque noted in the right internal carotid artery. There is heterogeneous, irregular atherosclerotic plaque noted in the right external carotid artery. Antegrade flow is noted in the right vertebral artery. Left Extracranial There is heterogeneous, irregular atherosclerotic plaque noted in the left common carotid artery. There is heterogeneous, irregular atherosclerotic plaque noted in the left internal carotid artery. There is heterogeneous, irregular atherosclerotic plaque noted in the left external carotid artery. Antegrade flow is noted in the left vertebral artery. Procedure Carotid Duplex [id number]. Exam performed in department. Interpretation Summary Minimal irregular plague at the proximal right internal carotid with <50% stenosis <50% stenosis right external carotid Irregular plague at the proximal left internal carotid with <50% stenosis >50% stenosis left external carotid Patent, antegrade vertebrals bilaterally Advancement in disease left external carotid from the previous exam of 05/01/18 Ordering Physician: Jose Angel Wooten Referring Physician: Fernando Kong Performed By: Aneta Horner RVT
== END ==
PROVIDERS: PCP Family Medicine; Referring Provider Surgery; Visit Provider Surgery
DX: I65.23 Occlusion and stenosis of bilateral carotid arteries (principal)
CPT/HCPCS: 93880

== ENCOUNTER → 2019-11-22 09:15 | Outpatient (CLI) | payer MEDICARE, SELFPAY ==
[2018-12-11 13:27] VITALS: BMI 28.7
[2019-11-10 11:45] VITALS: BMI 29.9
[2019-11-22 10:17] LABS: Hemoglobin A1c 10.3 % (3.8-5.6)
[2019-11-22 10:21] LABS: Microalbumin,Random Urine 70.3 mg/L (NO RANGE EST.); Microalbumin:Creatinine Ratio 204.4 mg/g CRE (<30 mg/g CRE)
[2019-11-22 10:55] LABS: AST(SGOT) 19 U/L (15-37); Alanine Aminotransfer ALT/SGPT 19 U/L (13-56); Anion Gap 7 (5-15); BUN 27 mg/dL (7-18); BUN/Creat Ratio 17.6 RATIO (10-20); Calcium,Total 8.4 mg/dL (8.5-10.1); Chloride 106 mmol/L (98-107); Cholesterol 295 mg/dL (200); Creatinine, Serum 1.53 mg/dL (0.55-1.02); EST Glomerular Filtration Rate 35 mL/min (>60); Est Glom Filt Rate - Afr Amer 42 mL/min (>60); Glucose 213 mg/dL (74-106); High Density Lipoprotein 41 mg/dL; Potassium 4.3 mmol/L (3.5-5.1); Sodium Level 136 mmol/L (136-145); Triglycerides 404 mg/dL
== END ==
PROVIDERS: PCP Family Medicine; Referring Provider Internal Medicine Endocrinology, Diabetes & Metabolism; Visit Provider Internal Medicine Endocrinology, Diabetes & Metabolism
DX: E11.65 Type 2 diabetes mellitus with hyperglycemia (principal); E78.2 Mixed hyperlipidemia
CPT/HCPCS: 36415; 80048; 80061; 82043; 82570; 83036; 84450; 84460

== ENCOUNTER → 2019-12-28 13:46 | Outpatient (CLI) | payer MEDICARE, SELFPAY ==
[2018-12-11 13:27] VITALS: BMI 28.7
[2019-11-10 11:45] VITALS: BMI 29.9
[2019-12-21 13:33] VITALS: BMI 29.5
--- NOTE | 2019-12-28 13:48 | ECHOD_ITS ---
Reason For Study: DYSPNEA/SOB Procedure This was a 2D Doppler, Color Flow transthoracic echocardiogram. The study was technically difficult. Exam performed in department. Left Ventricle Normal LV size. Left ventricular systolic function is normal. The estimated ejection fraction is 65 %. Diastolic function is indeterminate. No regional wall motion abnormalities noted. Right Ventricle Normal RV size. Normal systolic function. Atria The left atrium is mildly enlarged. Normal right atrium. No doppler evidence for ASD. Mitral Valve There is mild mitral annular calcification. Normal mitral valve. Trivial mitral valve insufficiency. Tricuspid Valve The tricuspid valve is not well visualized. Trivial tricuspid valve insufficiency. Unable to estimate RV systolic pressure/pulmonary artery pressure due to technically difficult study. Aortic Valve The aortic valve is not well visualized. Pulmonic Valve The pulmonic valve is not well visualized. Great Vessels Normal sized aortic root. Pericardium/Pleural No pericardial effusion. MMode/2D Measurements & Calculations LVIDd: 4.8 cm IVSd: 1.1 cm Ao root diam: 3.6 cm LVIDs: 3.1 cm LVPWd: 1.1 cm FS: 36.0 % LAV(MOD-bp): 45.5 ml LA A4 area: 15.8 cm2 LA dimension(2D): 3.9 cm LAV(MOD-bp) Indexed: 25.3 ml/m2 LAV(MOD-sp2): 49.8 ml LAV(MOD-sp4): 41.0 ml RA A4 area: 12.9 cm2 Doppler Measurements & Calculations MV E max sumeet: 63.7 cm/sec Lat Peak E' Sumeet: 8.3 cm/sec Med Peak E' Sumeet: 4.1 cm/sec MV A max sumeet: 98.0 cm/sec E/E' lat: 7.7 E/E' med: 15.4 MV E/A: 0.65 Ao V2 max: 111.0 cm/sec LV V1 max: 74.3 cm/sec PA V2 max: 93.7 cm/sec Ao max P.9 mmHg LV V1 max P.2 mmHg Interpretation Summary The study was technically difficult. Left ventricular systolic function is normal. The estimated ejection fraction is 65 %. The left atrium is mildly enlarged. There is mild mitral annular calcification. Trivial mitral valve insufficiency. Trivial tricuspid valve insufficiency. Unable to estimate RV systolic pressure/pulmonary artery pressure due to technically difficult study. Diastolic function is indeterminate. Ordering Physician: Galileo Uriostegui Referring Physician: Fernando Kong Performed By: Jenny Ley, CASI, RVT
== END ==
PROVIDERS: PCP Family Medicine; Referring Provider Internal Medicine Cardiovascular Disease; Visit Provider Internal Medicine Cardiovascular Disease
DX: R06.00 Dyspnea, unspecified (principal); R06.02 Shortness of breath; I25.10 Atherosclerotic heart disease of native coronary artery without angina pectoris; I10 Essential (primary) hypertension; E78.00 Pure hypercholesterolemia, unspecified; Z95.5 Presence of coronary angioplasty implant and graft; Z95.1 Presence of aortocoronary bypass graft
CPT/HCPCS: 93306

== ENCOUNTER → 2020-01-13 12:48 | Outpatient (CLI) | payer MEDICARE, SELFPAY ==
[2018-12-11 13:27] VITALS: BMI 28.7
[2019-12-21 13:33] VITALS: BMI 29.5
[2020-01-13] MEDS: Methacholine Chloride 18 ml neb kit IH (13:05)
--- NOTE | 2020-01-14 14:49 | BRONCHALL ---
Bronchoprovocation Challenge - Bronchoprovocation Challenge Bronchoprovocation Challenge: INTRODUCTION: The patient is an 84-year-old female who presents for a methacholine challenge secondary to a diagnosis of pulmonary nodule. Respiratory therapy reports good patient effort and reproducible results. INTERPRETATION: Initial spirometry did not show any large airways obstructive ventilatory defect with preserved airflows throughout. The patient was then given progressively increasing doses of methacholine in a standardized fashion. At no point during testing did the patient meet the threshold criteria of a 20% drop in FEV1 to be considered a positive test. IMPRESSION: Negative methacholine challenge.
== END ==
PROVIDERS: PCP Family Medicine; Referring Provider Family Medicine; Visit Provider Family Medicine
DX: R06.02 Shortness of breath (principal)
CPT/HCPCS: 94070; 95070

== ENCOUNTER → 2020-01-14 09:19 | Outpatient (CLI) | payer MEDICARE, SELFPAY ==
[2018-12-11 13:27] VITALS: BMI 28.7
[2019-12-21 13:33] VITALS: BMI 29.5
--- NOTE | 2020-01-14 09:21 | US_ITS ---
STUDY: ABDOMINAL ULTRASOUND - left UPPER QUADRANT REASON FOR VISIT: Female, 84 years old SPLENOMEGALY/MASS TECHNIQUE: Ultrasound evaluation of the right upper quadrant was performed with real-time and static merino-scale imaging. TECHNICAL QUALITY: Adequate. COMPARISON: Comparison is made with prior study dated 10/08/2018. FINDINGS: Spleen: The spleen measures 9.6 cm x 3.5 cm x 3.8 cm. It is of homogeneous echotexture. Left Kidney: Normal size of the left kidney. The left kidney measures 9.4 cm x 5 cm x 4.4 cm. Normal renal cortex. The left cortex measures 1.5 cm. 2 renal cysts are seen. The larger is in the midpole and measures 1.9 cm x 2.1 cm x 1.9 cm. The previously seen solid nodule is not seen at this time. There is no right hydronephrosis. US/Abdomen Limited IMPRESSION: No evidence of splenomegaly. Stable right renal cysts. The previously seen hypoechoic nodule in the left kidney is not seen at this time. Electronically Signed: Sai Calhoun, at 10:19 EST , Service support ,
== END ==
PROVIDERS: PCP Family Medicine; Referring Provider Family Medicine; Visit Provider Family Medicine
DX: R10.12 Left upper quadrant pain (principal)
CPT/HCPCS: 76705

== ENCOUNTER → 2020-01-19 14:05 | Outpatient (CLI) | payer MEDICARE, SELFPAY ==
[2018-12-11 13:27] VITALS: BMI 28.7
[2020-01-19 12:40] VITALS: BMI 30.1
--- NOTE | 2020-01-19 14:30 | RAD_ITS ---
STUDY: X-RAY CHEST REASON FOR EXAM: Female, 84 years old. sob, angina pectoris, CAD, stent in coronary artery, atherosclerotic heart disease, type 2 diabetes TECHNIQUE: Frontal view COMPARISON: 04/28/2019. FINDINGS: Stable sternotomy wires. The lungs are expanded. Probable left upper lobe granuloma. Normal size heart. Normal mediastinum. Right hilar calcifications. Normal visualized pulmonary arteries. Calcified aortic arch and descending thoracic aorta. Stimulator electrodes at the mid thoracic spine. Normal visualized ribs, clavicles, and shoulders. There is no demonstrated abnormality of the visualized soft tissue structures of the upper abdomen. RAD/Chest PA and Lateral IMPRESSION: Probable left upper lobe granuloma. Electronically Signed: Morales Rivera DO at 20:39 EST Tel [phone], Service support ,
== END ==
PROVIDERS: PCP Family Medicine; Referring Provider Nurse Practitioner Acute Care; Visit Provider Nurse Practitioner Acute Care
DX: R06.02 Shortness of breath (principal)
CPT/HCPCS: 71046

== ENCOUNTER → 2020-02-15 12:53 | Outpatient (CLI) | payer MEDICARE, SELFPAY ==
[2018-12-11 13:27] VITALS: BMI 28.7
[2020-01-19 12:40] VITALS: BMI 30.1
[2020-02-15 13:47] VITALS: PULSE 69; PULSE 72; PULSE 81; PULSE 84; PULSE 87; PULSE 88; O2SAT 91; O2SAT 92; O2SAT 93; O2SAT 94
--- NOTE | 2020-02-15 16:18 | PCM.PSN.6M ---
PSN 6 Minute Walk Test - 6 Minute Walk Test 6 Minute Walk Test: 6 Minute Walk Test PSN:6-Minute Walk Test Start: 02/15/20 13:47 Freq: Status: Active Protocol: [id number].6MINW Document 02/15/20 13:[address] [facility] (Rec: 02/15/20 13:[address] [facility] [id number]) 6 Minute Walk Test Date Performed 02/15/20 Time Performed 13:15 Height 5 ft 4 in Weight: 74.389 kg Weight in Pounds 164.[address]: KRISSY Assistive device used: None Pre-test Oxygen Delivery Method Room Air Pulse Ox (%) 92 Pulse Rate (60-100 beats/min) 69 Dyspnea Nando Scale (0-10) 2 Exertion Nando Scale (6-20) 6 1st minute Oxygen Delivery Method Room Air Pulse Ox (%) 92 Pulse Rate (60-100 beats/min) 81 Number of Rests Taken 1 Reported Symptoms Increased Work of Breathing 2nd minute Oxygen Delivery Method Room Air Pulse Ox (%) 91 Pulse Rate (60-100 beats/min) 84 3rd minute Oxygen Delivery Method Room Air Pulse Ox (%) 91 Pulse Rate (60-100 beats/min) 87 Number of Rests Taken 1 Reported Symptoms Increased Work of Breathing 4th minute Oxygen Delivery Method Room Air Pulse Ox (%) 91 Pulse Rate (60-100 beats/min) 87 Number of Rests Taken 1 Reported Symptoms Increased Work of Breathing 5th minute Oxygen Delivery Method Room Air Pulse Ox (%) 93 Pulse Rate (60-100 beats/min) 87 Number of Rests Taken 1 Reported Symptoms Increased Work of Breathing 6th minute Oxygen Delivery Method Room Air Pulse Ox (%) 92 Pulse Rate (60-100 beats/min) 88 Dyspnea Nando Scale (0-10) 4 Exertion Nando Scale (6-20) 13 Post-test Oxygen Delivery Method Room Air Pulse Ox (%) 94 Pulse Rate (60-100 beats/min) 72 Full Laps Walked 8 Partial Lap, Number of Tiles Walked 0 Total Distance Walked (ft) 472 - Interpretation Interpretation: The patient was able to ambulate 472 feet over the course of 6 minutes on room air with no assistive devices, but required for breaks. Patient did have a decreased baseline saturation of 92% and had an oxygen yue of 91%. No significant tachycardia was noted. These findings are consistent with a respiratory and musculoskeletal limitation to exercise tolerance. - Recommendations Recommendations: No supplemental oxygen is indicated at this time. However, patient will need to be followed closely given level of baseline desaturation
== END ==
PROVIDERS: PCP Family Medicine; Referring Provider Nurse Practitioner Acute Care; Visit Provider Nurse Practitioner Acute Care
DX: R06.02 Shortness of breath (principal)
CPT/HCPCS: 94618

== ENCOUNTER → 2020-02-23 08:04 | Outpatient (CLI) | payer MEDICARE, SELFPAY ==
[2018-12-11 13:27] VITALS: BMI 28.7
[2020-02-22 13:38] VITALS: BMI 28.5
[2020-02-23 08:58] LABS: AST(SGOT) 29 U/L (15-37); Alanine Aminotransfer ALT/SGPT 35 U/L (13-56); Anion Gap 10 (5-15); BUN 38 mg/dL (7-18); Chloride 106 mmol/L (98-107); EST Glomerular Filtration Rate 27 mL/min (>60); Est Glom Filt Rate - Afr Amer 33 mL/min (>60); Glucose 153 mg/dL (74-106); Potassium 4.6 mmol/L (3.5-5.1); Sodium Level 136 mmol/L (136-145)
[2020-02-23 09:04] LABS: Hemoglobin A1c 7.8 % (3.8-5.6)
== END ==
PROVIDERS: PCP Family Medicine; Referring Provider Internal Medicine Endocrinology, Diabetes & Metabolism; Visit Provider Internal Medicine Endocrinology, Diabetes & Metabolism
DX: E11.65 Type 2 diabetes mellitus with hyperglycemia (principal)
CPT/HCPCS: 36415; 80048; 83036; 84450; 84460

== ENCOUNTER → 2020-03-07 11:01 | Outpatient (CLI) | payer MEDICARE, SELFPAY ==
[2018-12-11 13:27] VITALS: BMI 28.7
[2020-02-22 13:38] VITALS: BMI 28.5
[2020-03-07 13:26] LABS: Anion Gap 8 (5-15); BUN 28 mg/dL (7-18); BUN/Creat Ratio 16.6 RATIO (10-20); Calcium,Total 8.7 mg/dL (8.5-10.1); Chloride 108 mmol/L (98-107); Creatinine, Serum 1.69 mg/dL (0.55-1.02); EST Glomerular Filtration Rate 31 mL/min (>60); Est Glom Filt Rate - Afr Amer 37 mL/min (>60); Glucose 322 mg/dL (74-106); Potassium 3.9 mmol/L (3.5-5.1); Sodium Level 137 mmol/L (136-145)
== END ==
PROVIDERS: PCP Family Medicine; Referring Provider Internal Medicine Endocrinology, Diabetes & Metabolism; Visit Provider Internal Medicine Endocrinology, Diabetes & Metabolism
DX: E11.65 Type 2 diabetes mellitus with hyperglycemia (principal)
CPT/HCPCS: 36415; 80048

== ENCOUNTER → 2020-04-03 10:52 | Outpatient (CLI) | payer MEDICARE, SELFPAY ==
[2018-12-11 13:27] VITALS: BMI 28.7
[2020-02-22 13:38] VITALS: BMI 28.5
[2020-04-03 12:04] LABS: Hemoglobin A1c 8.5 % (3.8-5.6)
[2020-04-03 12:19] LABS: AST(SGOT) 27 U/L (15-37); Alanine Aminotransfer ALT/SGPT 30 U/L (13-56); Anion Gap 11 (5-15); BUN 33 mg/dL (7-18); BUN/Creat Ratio 19.9 RATIO (10-20); Chloride 102 mmol/L (98-107); Cholesterol 291 mg/dL (200); Creatinine, Serum 1.66 mg/dL (0.55-1.02); EST Glomerular Filtration Rate 31 mL/min (>60); Est Glom Filt Rate - Afr Amer 38 mL/min (>60); Glucose 288 mg/dL (74-106); High Density Lipoprotein 44 mg/dL; Sodium Level 136 mmol/L (136-145); Thyroid Stim Hormone (TSH) 9.34 uIU/mL (0.358-3.74); Triglycerides 427 mg/dL
== END ==
PROVIDERS: PCP Family Medicine; Referring Provider Internal Medicine Endocrinology, Diabetes & Metabolism; Visit Provider Internal Medicine Endocrinology, Diabetes & Metabolism
DX: E11.65 Type 2 diabetes mellitus with hyperglycemia (principal); I10 Essential (primary) hypertension; E78.2 Mixed hyperlipidemia; E03.8 Other specified hypothyroidism
CPT/HCPCS: 36415; 80048; 80061; 83036; 84443; 84450; 84460

== ENCOUNTER → 2020-04-14 13:19 | Outpatient (CLI) | payer MEDICARE, SELFPAY ==
[2018-12-11 13:27] VITALS: BMI 28.7
[2020-02-22 13:38] VITALS: BMI 28.5
--- NOTE | 2020-04-14 13:22 | US_ITS ---
STUDY: THYROID ULTRASOUND REASON FOR EXAM: Female, 84 years old. DYSPHAGIA/HYPOTHYROID/R/O MASS TECHNIQUE: Ultrasound evaluation of the thyroid was performed with real-time and static merino-scale imaging. COMPARISON: None. FINDINGS: RIGHT LOBE: The right lobe of the thyroid gland measures 4 cm x 1.7 cm x 1.1 cm. There is a homogeneous echotexture. There is a 2 mm x 3 mm x 2 mm cyst in the midpole. There is also evidence of a 4 mm x 5 mm x 5 mm hypoechoic solid nodule in the midpole of the right lobe. LEFT LOBE: The left lobe of the thyroid gland measures 3.5 cm x 1.4 cm x 1 cm. There is a homogeneous echotexture. There is a 3 mm x 2 mm x 1 mm cyst in the lower pole of the left lobe. ISTHMUS: The isthmus measures 2 mm. The regional lymph nodes are normal. Incidental note is made of plaque at the bifurcation of the left carotid artery. US/Thyroid IMPRESSION: Subcentimeter bilateral nodules. Electronically Signed: Sai Calhoun MD at 14:57 EST , Service support ,
== END ==
PROVIDERS: PCP Family Medicine; Referring Provider Family Medicine; Visit Provider Family Medicine
DX: E03.9 Hypothyroidism, unspecified (principal); R13.10 Dysphagia, unspecified
CPT/HCPCS: 76536

== ENCOUNTER → 2020-04-21 10:10 | Outpatient (CLI) | payer MEDICARE, SELFPAY ==
[2018-12-11 13:27] VITALS: BMI 28.7
[2020-02-22 13:38] VITALS: BMI 28.5
--- NOTE | 2020-04-21 | LES_PTH ---
PATIENT: GLORIA PAUL LOC: [facility] U#:[id number] AGE/SX: 89/F ROOM: RE04/21/[address]: Dr. Fernando Su MD : [id number] BED: DIS: SPEC #: [id number] RECD: 04/24/20 10:02 STATUS: MOO WILLAM #: [id number] DONNA: 04/21/20 00:[address]: Fernando Su DEPT: SURGICAL PATHOLOGY RECD BY: Dana Heller ENTERED: 04/24/20 13:10 SP TYPE: Lesion OTHR DR: Dr. Fernando Kong MD Tissues: Skin of eyelid, NOS Procedures: Surgery Specimen Level IV HEADER OPERATION: Right upper lid PRE-OP DIAGNOSIS: Right upper lid lesion TISSUE SUBMITTED: Right upper lid MICROSCOPIC DIAGNOSIS Lesion of right upper eyelid, biopsy: Fibroepithelial polyp, mildly inflamed. AM:yessy 04/25/2020 MICROSCOPIC DESCRIPTION Slides are reviewed. GROSS DESCRIPTION Received in fixative is one container labeled with the patient's name and designated right upper lid lesion. The specimen consists of an irregular fragment of light osorio soft tissue/skin that measures 1 x 0.5 x 0.2 cm. The specimen is totally submitted in one cassette. / AM:yessy 04/24/20 TC:1 CPT: 24488
== END ==
PROVIDERS: PCP Family Medicine; Referring Provider Ophthalmology; Visit Provider Ophthalmology
DX: H02.9 Unspecified disorder of eyelid (principal)
CPT/HCPCS: 88305

== ENCOUNTER → 2020-05-22 14:22 | Outpatient (CLI) | payer MEDICARE, SELFPAY ==
[2018-12-11 13:27] VITALS: BMI 28.7
[2020-05-10 11:05] VITALS: BMI 29.0
[2020-05-22 15:55] LABS: Thyroid Stim Hormone (TSH) 0.82 uIU/mL (0.358-3.74)
== END ==
PROVIDERS: PCP Family Medicine; Referring Provider Family Medicine; Visit Provider Family Medicine
DX: E03.9 Hypothyroidism, unspecified (principal)
CPT/HCPCS: 36415; 84443

== ENCOUNTER → 2020-06-06 08:00 | Outpatient (CLI) | payer MEDICARE, SELFPAY ==
[2018-12-11 13:27] VITALS: BMI 28.7
[2020-05-10 11:05] VITALS: BMI 29.0
--- NOTE | 2020-06-06 08:20 | RAD_ITS ---
STUDY: X-RAY - ESOPHAGUS (BARIUM SWALLOW) WITH FLUOROSCOPY REASON FOR EXAM: Female, 84 years old. OTHER DYSPHAGIA TECHNIQUE: 18 view(s) of the esophagus were obtained following swallowing of barium. FLUOROSCOPY TIME (if supplied): (30 seconds) minutes/seconds COMPARISON: None. FINDINGS: There is no demonstrated esophageal foreign body. There is no demonstrated stricture or mucosal abnormality. Normal gastroesophageal junction, without a demonstrated hiatal hernia. The patient ingested a 12 mm tablet of barium without any difficulty. There is atherosclerotic calcification of the aortic arch with tortuosity of the descending aorta. Prior CABG. Normal visualized pulmonary parenchyma. There are diffuse degenerative changes of the visualized thoracic spine. RAD/Esophagus Dual Contrast IMPRESSION: Normal plain film x-ray examination (barium swallow) of the esophagus. Electronically Signed: aSi Calhoun MD at 9:06 EDT , Service support ,
== END ==
PROVIDERS: PCP Family Medicine; Referring Provider Otolaryngology; Visit Provider Otolaryngology
DX: R13.19 Other dysphagia (principal)
CPT/HCPCS: 74221

== ENCOUNTER → 2020-06-09 08:51 | Outpatient (CLI) | payer MEDICARE, SELFPAY ==
[2018-12-11 13:27] VITALS: BMI 28.7
[2020-05-10 11:05] VITALS: BMI 29.0
[2020-06-09 09:57] LABS: Hemoglobin A1c 10.6 % (3.8-5.6)
[2020-06-09 10:29] LABS: AST(SGOT) 33 U/L (15-37); Alanine Aminotransfer ALT/SGPT 24 U/L (13-56); Anion Gap 9 (5-15); BUN 25 mg/dL (7-18); BUN/Creat Ratio 15.2 RATIO (10-20); Calcium,Total 8.9 mg/dL (8.5-10.1); Chloride 103 mmol/L (98-107); Cholesterol 175 mg/dL (200); Creatinine, Serum 1.64 mg/dL (0.55-1.02); EST Glomerular Filtration Rate 32 mL/min (>60); Est Glom Filt Rate - Afr Amer 39 mL/min (>60); Glucose 218 mg/dL (74-106); High Density Lipoprotein 48 mg/dL; Potassium 4.3 mmol/L (3.5-5.1); Sodium Level 136 mmol/L (136-145); Triglycerides 358 mg/dL; Very Low Density Lipoprotein 72 mg/dL (5-40)
== END ==
PROVIDERS: PCP Family Medicine; Visit Provider Internal Medicine Endocrinology, Diabetes & Metabolism
DX: E11.65 Type 2 diabetes mellitus with hyperglycemia (principal); E78.2 Mixed hyperlipidemia
CPT/HCPCS: 36415; 80048; 80061; 83036; 84450; 84460

== ENCOUNTER 2020-06-14 17:34 | Emergency (ER) | payer MEDICARE, SELFPAY ==
[2018-12-11 13:27] VITALS: BMI 28.7
[2020-05-10 11:05] VITALS: BMI 29.0
[2020-06-14 17:35] VITALS: BP 163/75; PULSE 82; RESP 16; TEMP 36; O2SAT 97; BMI 28.3
--- NOTE | 2020-06-14 18:46 | EDS_ITS ---
HPI HPI - Fall History of Present Illness Chief Complaint: Fall Informant: patient Occured/Mechanism Occurred: Yesterday Mechanism/Context: Yes Same level fall and Yes trip Usually ambulates: Without assistance Pain/Injury Location: R shoulder, head, L knee Quality of Pain: Aching Current Severity: Moderate Maximum Severity: Moderate Worsened by: moving Relieved by: remaining still Associated Symptoms Associated Symptoms: Negative for Parasthesias, Weakness, Loss of function, Inability to ambulate, Loss of consciousness and Amnesia Narrative Narrative: Patient had an accidental fall while walking on her sister's driveway yesterday. She states she bumped her head without loss of consciousness. She also somehow landed with her right arm outstretched and injured her right shoulder falling against it, she is unsure how that happened but also fell to her left knee that had some bleeding and soreness. She has been able to ambulate. She is having trouble moving her right arm but admits she was having right shoulder problems before the fall. She is on aspirin and clopidogrel, she has a history of cardiac stents. No anticoagulants. She has had headaches, no changes in her vision, no focal neurologic symptoms, and no nausea or vomiting. [facility] Medical History (Updated 06/14/20 @ 20:[address] Nikolai Salgado MD) Angina pectoris Atherosclerotic heart disease of [place] coronary artery without angina pectoris CAD (coronary artery disease) Carotid stenosis, left Chest pain Chronic renal failure, stage 3 (moderate) Debility Diabetes mellitus, type 2 Dyspnea on exertion Edema Essential hypertension Fatigue Fibromyalgia GERD (gastroesophageal reflux disease) History of stroke Hypothyroidism Lumbosacral radiculopathy Obstructive sleep apnea Other skilled nursing (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 Presence of stent in coronary artery (~12/11/18) Pure hypercholesterolemia Renal cancer Shortness of breath TIA (transient ischemic attack) Home Medications duloxetine 20 mg PO DAILY 12/20/18 [History Last Taken 08/10/19] furosemide 20 mg PO DAILY 12/20/18 [History Last Taken 03/23/19] hydralazine 50 mg PO TID 12/20/18 [History Last Taken 09/17/19 05:30] metoprolol tartrate 50 mg PO BID 12/20/18 [History Last Taken 08/10/19] aspirin 81 mg tablet,delayed release 81 mg PO DAILY 01/01/19 [History Last Taken 08/10/19] gabapentin 300 mg capsule 300 mg PO BID 01/01/19 [History Last Taken 03/23/19] diphenhydramine-acetaminophen 2 tab PO QHS 03/23/19 [History Last Taken 03/22/19] oxybutynin chloride 10 mg PO DAILY 03/23/19 [History Last Taken 03/23/19] cholecalciferol (vitamin D3) 25 mcg (1,000 unit) capsule 25 mcg PO TUSA cap 07/28/19 [History Last Taken Unknown] insulin lispro 100 unit/mL subcutaneous cartridge See Rx Instructions SUBCUT 4X/DAY PRN 07/28/19 [History Last Taken Unknown] metformin 500 mg tablet,extended release 24 hr 1,000 mg PO BID tab 07/28/19 [History Last Taken 08/09/19] nitroglycerin 0.4 mg sublingual tablet 0.4 mg SUBLINGUAL Q5M PRN #25 tab 09/28/19 [Rx Last Taken Unknown] clopidogrel 75 mg tablet 75 mg PO DAILY #90 tab 01/03/20 [Rx Last Taken Unknown] amlodipine 10 mg tablet 10 mg PO DAILY #90 tab 03/03/20 [Rx Last Taken Unknown] atorvastatin 40 mg tablet 40 mg PO QHS 05/10/20 [History Last Taken Unknown] insulin glargine 100 unit/mL subcutaneous solution 64 unit SUBCUT BREAKFAST ml 05/10/20 [History Last Taken Unknown] levothyroxine 50 mcg tablet 50 mcg PO DAILY 05/10/20 [History Last Taken Unknown] isosorbide mononitrate 30 mg tablet,extended release 24 hr 30 mg PO DAILY #90 tablet 05/29/20 [Rx Last Taken Unknown] Allergy/AdvReac Type Severity Reaction Status Date / Time latex Allergy Rash Verified 06/14/20 17:38 adhesive tape AdvReac Rash Verified 06/14/20 17:38 ticagrelor [From Brilinta] AdvReac Shortness Verified 06/14/20 17:38 of breath Family History Father Heart disease Mother Breast cancer Diabetes Heart disease Surgical History History of back surgery History of coronary artery bypass graft x 3 (~04/08/16) History of hysterectomy History of knee replacement procedure of right knee History of right and left heart catheterization (LHC) (~08/10/19) History of right inguinal hernia repair Postlaminectomy syndrome of lumbar region Presence of coronary angioplasty implant and graft (~12/11/18) Social History (Updated 05/10/20 @ 13:[address] Galileo Uriostegui MD) Smoking Status: Never smoker alcohol intake: never caffeine: No ROS ROS ED Constitutional Constitutional ED: Denies chills or fever(s) Eyes Eyes: Denies change in vision or diplopia ENT ENT ED: Denies rhinorrhea or sore throat Cardiovascular Cardiovascular: Denies chest pain or palpitations Respiratory/Chest Respiratory/Chest: Denies cough or dyspnea Gastrointestinal Gastrointestinal: Denies abdominal pain, diarrhea, nausea or vomiting Genitourinary Genitourinary ED: Denies dysuria or hematuria Musculoskeletal Musculoskeletal: Reports back pain, extremity pain and other Details: back pain chronic, unchanged, denies back injury acutely ; Denies neck pain Integumentary Reports Abrasions; Denies abscess or rash Neurologic Neurologic: Reports headache(s); Denies paresthesias or weakness Psychiatric Psychiatric: Denies anxiety or suicidal thoughts Hematologic/Lymphatic Hematologic/Lymphatic: Reports easy bleeding and easy bruising EXAM Physical Exam Const Vital Signs: 06/14/20 17:35 06/14/20 19:17 06/14/20 19:45 Temperature 96.8 F L Temperature Source Oral Pulse Rate 82 80 Respiratory Rate 16 20 H Respiratory Effort Normal Non-Labored Blood Pressure 163/75 H 148/68 H Blood Pressure Mean 104 94 Pulse Ox 97 94 Oxygen Delivery Method Room Air Room Air Positive well nourished and well developed General Appearance ED: well developed and NAD HEENT Reports moist mucous membranes HEENT Narrative: no signs of trauma. no crepitance/depression. neg Battles bilat. No HT or CSF otorhinorrhea. No facial tenderness. normocephalic, atraumatic and tenderness Eyes PERRL and EOMs intact bilaterally Neck full ROM, no lymphadenopathy and supple Chest Wall inspection of chest normal and palpation of chest normal Resp normal respiratory effort and clear to auscultation bilaterally Cardio regular rate, regular rhythm and no murmurs GI non-tender and non-distended Auscultation: normoactive bowel sounds Palpation: soft Back/Spine no CVA tenderness General Back: other FROM Extremity Extremity Narrative: Tender to palpation anterior left knee the patella. No effusion. Full range of motion. Extensor mechanism intact. No other bony tenderness. All ligaments stable with short endpoints, including with stressing. Minor abrasions anteriorly at the patella. Right shoulder: Dense purpuric ecchymosis distal to the shoulder from the proximal upper arm almost down to the elbow, medially. Tender throughout. No deformity. Can abduct to 90 degrees but has trouble above that. Good internal and external rotation. Painless supination and pronation at the elbow. No elbow tenderness. Mild distal radius tenderness at the wrist, but she has full range of motion there. Neurovascularly intact. General Extremety ED: Yes tenderness; Negative for edema or pulses abnormal General Extremity: Negative for edema or pulses abnormal Neuro oriented x3, CN's II-XII intact bilaterally and no sensory deficits noted Sensorium / Orientation: awake and alert Motor Exam: strength 5/5 throughout Skin no rashes or lesions noted Skin Narrative: Abrasions left anterior knee. Ecchymosis right upper arm but no other signs of injury there. Skin intact. Scalp is normal without signs of any obvious injury. MDM MDM MDM Narrative Medical decision making narrative: CT negative per radiology. On my interpretation, 2 view x-ray series of the right humerus, 4 view x-ray series of the left knee, 4 view x-ray series of the right shoulder, and 3 view x-ray series of the right wrist are all negative for anything acute. Radiology in agreement. Patient reassured and discharged home with instructions for supportive care, she was advised that the ecchymosis on her right upper extremity will probably settle and look worse over the next couple weeks but e ventually should resolve, heat or ice is reasonable. She is given some Tylenol here for pain as well as an ice pack for her knee. She is ambulatory and stable for discharge. Radiography Diagnostic Testing: Radiology Impression Humerus X-Ray 06/14/20 19:10 IMPRESSION: No fracture or dislocation. Electronically Signed: Gurdeep Mitchell MD at 19:56 EDT Tel , Service support , Knee X-Ray 06/14/20 19:10 IMPRESSION: No fracture or dislocation. Mild patellofemoral degenerative changes. Electronically Signed: Gurdeep Mitchell MD at 20:02 EDT Tel , Service support , Shoulder X-Ray 06/14/20 19:10 IMPRESSION: No fracture or dislocation. Electronically Signed: Gurdeep Mitchell MD at 20:18 EDT Tel , Service support , Wrist X-Ray 06/14/20 19:10 IMPRESSION: No fracture or dislocation. Mild to moderate degenerative changes most prominent at the first carpal metacarpal joint. Electronically Signed: Gurdeep Mitchell MD at 20:20 EDT Tel , Service support , Brain CT 06/14/20 19:25 IMPRESSION: No acute intracranial abnormality. Chronic ischemic and atrophic changes. Electronically Signed: Gurdeep Mitchell MD at 19:51 EDT Tel , Service support , Discharge Plan Triage Chief Complaint: Fall ED Provider: Nikolai Salgado Dx/Rx/DC Orders Clinical Impression: Accidental fall, Contusion of knee, left, Contusion of multiple sites of right shoulder and upper arm, Closed head injury without loss of consciousness Instructions: ED Contusion, Lower Extremity, ED Mechanical Fall, ED Head Injury (Adult) Prescriptions: No Action gabapentin 300 mg capsule 300 mg PO BID RF: 0 aspirin [Adult Low Dose Aspirin] 81 mg tablet,delayed release (DR/EC) 81 mg PO DAILY RF: 0 cholecalciferol (vitamin D3) 25 mcg (1,000 unit) capsule 25 mcg PO TUSA RF: 0 metformin 500 mg tablet extended release 24 hr 1,000 mg PO BID RF: 0 levothyroxine 50 mcg tablet 50 mcg PO DAILY RF: 0 atorvastatin 40 mg tablet 40 mg PO QHS RF: 0 insulin lispro 100 unit/mL cartridge See Rx Instructions subcut 4X/DAY PRN (Reason: DM) RF: 0 insulin glargine 100 unit/mL solution 64 unit subcut BREAKFAST RF: 0 metoprolol tartrate 50 MG tablet 50 mg PO BID RF: 0 hydralazine 50 MG tablet 50 mg PO TID RF: 0 furosemide 20 MG tablet 20 mg PO DAILY RF: 0 duloxetine 20 MG capsule 20 mg PO DAILY RF: 0 oxybutynin chloride 10 MG tablet extended release 24hr 10 mg PO DAILY RF: 0 diphenhydramine-acetaminophen 1 EACH tablet 2 tab PO QHS RF: 0 nitroglycerin 0.4 mg tablet, sublingual 0.4 mg SUBLINGUAL Q5M PRN (Reason: chest pain) Qty: 25 RF: 3 clopidogrel 75 mg tablet 75 mg PO DAILY Qty: 90 RF: 3 amlodipine 10 mg tablet 10 mg PO DAILY Qty: 90 RF: 3 isosorbide mononitrate 30 mg tablet extended release 24 hr 30 mg PO DAILY Qty: 90 RF: 3 Primary Care Provider: Fernando Kong Referrals: Fernando Kong MD [Primary Care Provider] - As Needed Disposition Disposition: Home, self care
[2020-06-14] MEDS: Acetaminophen 325 MG Tablet 650 MG PO (18:52)
--- NOTE | 2020-06-14 19:10 | RAD_ITS ---
STUDY: X-RAY - RIGHT WRIST REASON FOR EXAM: Female, 84 years old. Fall TECHNIQUE: 3 view(s) of the wrist were obtained. COMPARISON: None. FINDINGS: There is no evidence of fracture or dislocation. Mild to moderate degenerative changes are present throughout the wrist., Most prominent at the first carpal metacarpal joint. There are no radiodense foreign bodies. RAD/Wrist min 3 Views IMPRESSION: No fracture or dislocation. Mild to moderate degenerative changes most prominent at the first carpal metacarpal joint. Electronically Signed: Gurdeep Mitchell MD at 20:20 EDT Tel , Service support ,
--- NOTE | 2020-06-14 19:10 | RAD_ITS ---
STUDY: X-RAY - LEFT KNEE REASON FOR EXAM: Female, 84 years old. Fall TECHNIQUE: 4 view(s) of the knee. COMPARISON: None. FINDINGS: There is no evidence of fracture or dislocation. Mild patellofemoral degenerative changes are present. There are no radiodense foreign bodies. RAD/Knee 4 or More Views IMPRESSION: No fracture or dislocation. Mild patellofemoral degenerative changes. Electronically Signed: Gurdeep Mitchell MD at 20:02 EDT Tel , Service support ,
--- NOTE | 2020-06-14 19:10 | RAD_ITS ---
STUDY: X-RAY - RIGHT SHOULDER REASON FOR EXAM: Female, 84 years old. Pain TECHNIQUE: 4 view(s) of the shoulder. COMPARISON: None. FINDINGS: There is no evidence of fracture or dislocation. There are minimal degenerative changes. There are no radiodense foreign bodies. RAD/Shoulder min 2 Views IMPRESSION: No fracture or dislocation. Electronically Signed: Gurdeep Mitchell MD at 20:18 EDT Tel , Service support ,
--- NOTE | 2020-06-14 19:10 | RAD_ITS ---
STUDY: X-RAY - RIGHT HUMERUS REASON FOR EXAM: Female, 84 years old. Injury TECHNIQUE: 2 view(s) of the humerus. COMPARISON: None. FINDINGS: There is no evidence of fracture or dislocation. There are no significant degenerative changes. There are no radiodense foreign bodies. RAD/Humerus min 2 Views IMPRESSION: No fracture or dislocation. Electronically Signed: Gurdeep Mitchell MD at 19:56 EDT Tel , Service support ,
--- NOTE | 2020-06-14 19:25 | CT_ITS ---
STUDY: CT BRAIN WITHOUT CONTRAST REASON FOR EXAM: Female, 84 years old. Headache RADIATION DOSAGE (If Supplied By Facility): DLP = ( 779.24 ) mGycm TECHNIQUE: Transaxial CT imaging of the brain was performed without administration of intravenous contrast material. Individualized dose optimization techniques were used for this CT. COMPARISON: CT head 08/26/2017 FINDINGS: There is no acute bleed or infarct. There are chronic ischemic and atrophic changes. The ventricles are normal in configuration. There is no hydrocephalus. The visualized paranasal sinuses are clear. The mastoid air cells are well aerated. There is no skull fracture. CT/Brain/Head without Contrast IMPRESSION: No acute intracranial abnormality. Chronic ischemic and atrophic changes. Electronically Signed: Gurdeep Mitchell MD at 19:51 EDT Tel , Service support ,
[2020-06-14 19:45] VITALS: BP 148/68; PULSE 80; RESP 20; O2SAT 94
== END 2020-06-14 20:53 | disposition home or self-care (01) ==
PROVIDERS: Emergency Provider Emergency Medicine; PCP Family Medicine
DX: S80.02XA Contusion of left knee, initial encounter (principal); S40.011A Contusion of right shoulder, initial encounter; S09.90XA Unspecified injury of head, initial encounter; I25.10 Atherosclerotic heart disease of native coronary artery without angina pectoris; W19.XXXA Unspecified fall, initial encounter; Y93.01 Activity, walking, marching and hiking; Z95.5 Presence of coronary angioplasty implant and graft; Z86.73 Personal history of transient ischemic attack (TIA), and cerebral infarction without residual deficits; Z79.82 Long term (current) use of aspirin; Z79.02 Long term (current) use of antithrombotics/antiplatelets
CPT/HCPCS: 70450; 73030; 73060; 73110; 73564; 99283

== ENCOUNTER → 2020-07-07 13:32 | Outpatient (CLI) | payer MEDICARE, SELFPAY ==
[2018-12-11 13:27] VITALS: BMI 28.7
[2020-06-14 17:35] VITALS: BMI 28.3
[2020-07-07 15:21] LABS: Absolute Lymphocyte Count 2.87 X10^3/uL (0.83-4.51); Absolute Neutrophil Count 9.3 X10^3/uL (2.0-7.7); Basophil# 0.07 X10^3/uL; Basophil% 0.5 % (0-1); Eosinophil# 0.16 X10^3/uL; Eosinophils% 1.2 % (0-5); Hematocrit 42.4 % (37-47); Lymphocyte # 2.87 X10^3/ul (0.83-4.51); Lymphocyte % 21.7 % (19-41); Mean Corpuscular Hgb 29.5 pg (27.0-32.0); Mean Corpuscular Volume 89.3 fL (81-99); Mean Platelet Vol. 12.3 fl (6.2-12.0); Monocyte# 0.76 X10^3/uL; Monocyte% 5.7 % (0-10); NRBC Flagged by Analyzer 0 % (0-5); Neutrophil # 9.32 X10^3/uL (2.7-7.7); Neutrophil % 70.5 % (47-70); Platelet Count 286 K/mm3 (150-450); RBC Distribution Width CV 14.8 % (11.6-14.6); RBC Distribution Width SD 48.4 fl (35.1-43.9); Red Blood Count 4.75 M/mm3 (4.2-5.4); White Blood Count 13.2 K/mm3 (4.4-11.0)
[2020-07-07 15:49] LABS: ALB/GLOB Ratio 0.9 RATIO (0.9-2.4); AST(SGOT) 29 U/L (15-37); Alanine Aminotransfer ALT/SGPT 28 U/L (13-56); Albumin, Serum 4.1 g/dL (3.2-5.0); Alkaline Phosphatase 117 U/L (45-117); Anion Gap 16 (5-15); BUN 25 mg/dL (7-18); BUN/Creat Ratio 13.4 RATIO (10-20); Calcium,Total 9.3 mg/dL (8.5-10.1); Chloride 100 mmol/L (98-107); Creatinine, Serum 1.86 mg/dL (0.55-1.02); EST Glomerular Filtration Rate 28 mL/min (>60); Est Glom Filt Rate - Afr Amer 33 mL/min (>60); Globulin 4.5 g/dL (2.2-4.2); Glucose 401 mg/dL (74-106); Potassium 4.1 mmol/L (3.5-5.1); Protein, Total 8.6 g/dL (6.4-8.2); Sodium Level 132 mmol/L (136-145); T4 Free Direct 1.06 ng/dL (0.76-1.46); Thyroid Stim Hormone (TSH) 2.95 uIU/mL (0.358-3.74)
== END ==
PROVIDERS: PCP Family Medicine; Referring Provider Family Medicine; Visit Provider Family Medicine
DX: E11.9 Type 2 diabetes mellitus without complications (principal); N18.30 Chronic kidney disease, stage 3 unspecified; R53.83 Other fatigue; I25.10 Atherosclerotic heart disease of native coronary artery without angina pectoris
CPT/HCPCS: 36415; 80053; 84439; 84443; 85025

== ENCOUNTER → 2020-07-31 14:53 | Outpatient (CLI) | payer MEDICARE, SELFPAY ==
[2018-12-11 13:27] VITALS: BMI 28.7
--- NOTE | 2020-07-31 14:56 | RAD_ITS ---
STUDY: X-RAY - RIGHT FOOT CLINICAL: Female, 84 years old. Pain and bruising. TECHNIQUE: 3 view(s) of the foot. COMPARISON: None. FINDINGS: Generalized osteopenia. Small inferior calcaneal spur. Moderate arthrosis of the MTP and IP joints with hammertoe deformities and a mild hallux valgus deformity of the first toe. Vascular calcification. RAD/Foot min 3 Views IMPRESSION: Osteopenia with osteoarthritic changes as described. Electronically Signed: Dhruv Guillen MD at 14:17 EDT , Service support ,
== END ==
PROVIDERS: PCP Family Medicine; Referring Provider Family Medicine; Visit Provider Family Medicine
DX: M79.671 Pain in right foot (principal)
CPT/HCPCS: 73630

== ENCOUNTER → 2020-09-05 10:40 | Outpatient (CLI) | payer MEDICARE, SELFPAY ==
[2018-12-11 13:27] VITALS: BMI 28.7
[2020-09-05 12:00] LABS: AST(SGOT) 24 U/L (15-37); Alanine Aminotransfer ALT/SGPT 29 U/L (13-56); Anion Gap 10 (5-15); BUN 32 mg/dL (7-18); BUN/Creat Ratio 21.3 RATIO (10-20); Calcium,Total 9.2 mg/dL (8.5-10.1); Chloride 101 mmol/L (98-107); EST Glomerular Filtration Rate 35 mL/min (>60); Est Glom Filt Rate - Afr Amer 43 mL/min (>60); Glucose 278 mg/dL (74-106); Sodium Level 134 mmol/L (136-145)
== END ==
PROVIDERS: PCP Family Medicine; Referring Provider Internal Medicine Endocrinology, Diabetes & Metabolism; Visit Provider Internal Medicine Endocrinology, Diabetes & Metabolism
DX: E11.65 Type 2 diabetes mellitus with hyperglycemia (principal)
CPT/HCPCS: 36415; 80048; 83036; 84450; 84460

== ENCOUNTER → 2020-10-23 15:23 | Outpatient (CLI) | payer MEDICARE, SELFPAY ==
[2018-12-11 13:27] VITALS: BMI 28.7
[2020-10-23 17:25] LABS: Microalbumin,Random Urine 64.7 mg/L (NO RANGE EST.); Microalbumin:Creatinine Ratio 93.1 mg/g CRE (<30 mg/g CRE)
== END ==
PROVIDERS: PCP Family Medicine; Visit Provider Physician Assistant
DX: E11.65 Type 2 diabetes mellitus with hyperglycemia (principal)
CPT/HCPCS: 82043; 82570

== ENCOUNTER → 2020-11-09 15:22 | Outpatient (CLI) | payer MEDICARE, SELFPAY ==
[2018-12-11 13:27] VITALS: BMI 28.7
[2020-11-09 16:58] LABS: Anion Gap 11 (5-15); BUN 31 mg/dL (7-18); BUN/Creat Ratio 20.8 RATIO (10-20); Chloride 105 mmol/L (98-107); Creatinine, Serum 1.49 mg/dL (0.55-1.02); EST Glomerular Filtration Rate 36 mL/min (>60); Est Glom Filt Rate - Afr Amer 43 mL/min (>60); Glucose 76 mg/dL (74-106); Potassium 3.8 mmol/L (3.5-5.1); Sodium Level 139 mmol/L (136-145)
[2020-11-09 17:03] LABS: BNP,B-Type NATRIURETIC PEPTIDE 163.2 pg/mL (0-100)
== END ==
PROVIDERS: PCP Family Medicine; Referring Provider Nurse Practitioner Family; Visit Provider Nurse Practitioner Family
DX: I25.10 Atherosclerotic heart disease of native coronary artery without angina pectoris (principal); Z95.5 Presence of coronary angioplasty implant and graft; Z95.1 Presence of aortocoronary bypass graft; I10 Essential (primary) hypertension; E78.00 Pure hypercholesterolemia, unspecified; R06.02 Shortness of breath
CPT/HCPCS: 36415; 80048; 83880

== ENCOUNTER → 2020-12-01 12:10 | Outpatient (CLI) | payer MEDICARE, SELFPAY ==
[2018-12-11 13:27] VITALS: BMI 28.7
[2020-12-01 13:39] LABS: AST(SGOT) 21 U/L (15-37); Alanine Aminotransfer ALT/SGPT 21 U/L (13-56); Anion Gap 8 (5-15); BUN 30 mg/dL (7-18); BUN/Creat Ratio 18.9 RATIO (10-20); Calcium,Total 9.3 mg/dL (8.5-10.1); Chloride 107 mmol/L (98-107); Creatinine, Serum 1.59 mg/dL (0.55-1.02); EST Glomerular Filtration Rate 33 mL/min (>60); Est Glom Filt Rate - Afr Amer 40 mL/min (>60); Glucose 123 mg/dL (74-106); Potassium 3.9 mmol/L (3.5-5.1); Sodium Level 139 mmol/L (136-145)
[2020-12-01 13:45] LABS: Hemoglobin A1c 8.9 % (3.8-5.6)
== END ==
PROVIDERS: PCP Family Medicine; Referring Provider Internal Medicine Endocrinology, Diabetes & Metabolism; Visit Provider Internal Medicine Endocrinology, Diabetes & Metabolism
DX: E11.65 Type 2 diabetes mellitus with hyperglycemia (principal)
CPT/HCPCS: 36415; 80048; 83036; 84450; 84460

== ENCOUNTER 2020-12-17 10:50 | Emergency (ER) | payer MEDICARE, SELFPAY ==
[2018-12-11 13:27] VITALS: BMI 28.7
[2020-12-17 10:50] VITALS: BP 123/50; PULSE 72; RESP 16; TEMP 36.2; O2SAT 93; BMI 29.0
--- NOTE | 2020-12-17 11:08 | EDS_ITS ---
HPI History of Present Illness Chief Complaint: Dizziness Informant: patient and spouse/S.O. Narrative Narrative: 85-year-old female presents the emergency room for evaluation of dizziness. She tells me that she woke this morning felt fine. She took her morning medications and was doing well until around 0900 when she went to take a shower. In the shower she got very lightheaded like she was going to pass out and her had to assist her. She notes nausea and a headache. She denies a sensation that the room is spinning. She reports that she recently went to see her batch records clerk and they discontinued her metoprolol (due to VILLATORO) and increased her isosorbide to 60 mg once a day. This morning was the first day that she took this new regimen. Patient denies any recent fevers vomiting or diarrhea. 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 Presence of stent in coronary artery (~12/11/18) Pure hypercholesterolemia Renal cancer Shortness of breath TIA (transient ischemic attack) Home Medications duloxetine 20 mg PO DAILY 12/20/18 [History Last Taken 08/10/19] furosemide 20 mg PO DAILY 12/20/18 [History Last Taken 03/23/19] hydralazine 50 mg PO TID 12/20/18 [History Last Taken 09/17/19 05:30] aspirin 81 mg tablet,delayed release 81 mg PO DAILY 01/01/19 [History Last Taken 08/10/19] gabapentin 300 mg capsule 300 mg PO BID 01/01/19 [History Last Taken 03/23/19] diphenhydramine-acetaminophen 2 tab PO QHS 03/23/19 [History Last Taken 03/22/19] oxybutynin chloride 10 mg PO DAILY 03/23/19 [History Last Taken 03/23/19] cholecalciferol (vitamin D3) 25 mcg (1,000 unit) capsule 25 mcg PO TUSA cap 07/28/19 [History Last Taken Unknown] insulin lispro 100 unit/mL subcutaneous cartridge See Rx Instructions SUBCUT 4X/DAY PRN 07/28/19 [History Last Taken Unknown] nitroglycerin 0.4 mg sublingual tablet 0.4 mg SUBLINGUAL Q5M PRN #25 tab 09/28/19 [Rx Last Taken Unknown] clopidogrel 75 mg tablet 75 mg PO DAILY #90 tab 01/03/20 [Rx Last Taken Unknown] amlodipine 10 mg tablet 10 mg PO DAILY #90 tab 03/03/20 [Rx Last Taken Unknown] atorvastatin 40 mg tablet 40 mg PO QHS 05/10/20 [History Last Taken Unknown] insulin glargine 100 unit/mL subcutaneous solution 64 unit SUBCUT BREAKFAST ml 05/10/20 [History Last Taken Unknown] levothyroxine 50 mcg tablet 50 mcg PO DAILY 05/10/20 [History Last Taken Unknown] lansoprazole 30 mg capsule,delayed release 30 mg PO DAILY 12/08/20 [History Last Taken Unknown] lisinopril 20 mg tablet 20 mg PO DAILY 12/08/20 [History Last Taken Unknown] sitagliptin 50 mg tablet 50 mg PO DAILY #90 tab 12/08/20 [Rx Last Taken Unknown] isosorbide mononitrate 30 mg tablet,extended release 24 hr 60 mg PO DAILY #90 tab 12/14/20 [Rx Last Taken Unknown] Allergy/AdvReac Type Severity Reaction Status Date / Time latex Allergy Rash Verified 12/17/20 10:53 adhesive tape AdvReac Rash Verified 12/17/20 10:53 ticagrelor [From Brilinta] AdvReac Shortness Verified 12/17/20 10:53 of breath Family History Father Heart disease Mother Breast cancer Diabetes Heart disease Surgical History History of back surgery History of coronary artery bypass graft x 3 (~04/08/16) History of hysterectomy History of knee replacement procedure of right knee History of right and left heart catheterization (LHC) (~08/10/19) History of right inguinal hernia repair Postlaminectomy syndrome of lumbar region Presence of coronary angioplasty implant and graft (~12/11/18) Social History Smoking Status: Never smoker alcohol intake: never caffeine: No ROS ROS ED ROS Narrative Dizziness/lightheadedness Constitutional Constitutional ED: Denies chills, fever(s) or weight loss Eyes Eyes: Denies change in vision or diplopia ENT ENT ED: Denies ear pain, rhinorrhea or sore throat Cardiovascular Cardiovascular: Denies chest pain, orthopnea, palpitations or racing heartbeat Respiratory/Chest Respiratory/Chest: Denies cough, dyspnea or orthopnea Gastrointestinal Gastrointestinal: Reports nausea; Denies abdominal pain, diarrhea or vomiting Genitourinary Genitourinary ED: Denies dysuria, hematuria or urinary frequency Musculoskeletal Musculoskeletal: Denies arthralgias or myalgias Integumentary Denies abscess or rash Neurologic Neurologic: Reports headache(s); Denies weakness Psychiatric Psychiatric: Denies anxiety, depression, suicidal ideation or suicidal thoughts Endocrine Endocrinology: Denies polydipsia, polyphagia or polyuria Allergic/Immunologic Allergic/Immunologic ED: Denies mouth swelling, tongue swelling or urticaria EXAM Physical Exam Const Vital Signs: 12/17/20 10:50 12/17/20 11:10 12/17/20 11:17 Temperature 97.2 F L Temperature Source Temporal Pulse Rate 72 Pulse Rate [Lying] 65 Pulse Rate [Sitting] 77 Pulse Rate [Standing] 80 Respiratory Rate 16 Respiratory Effort Normal Respiratory Pattern Normal Blood Pressure 123/50 H Blood Pressure [Lying] 145/56 H Blood Pressure [Sitting] 128/57 H Blood Pressure [Standing] 119/55 L Blood Pressure Mean 74 Blood Pressure Mean [Lying] 85 Blood Pressure Mean [Sitting] 80 Blood Pressure Mean [Standing] 76 Pulse Ox 93 Oxygen Delivery Method Room Air 12/17/20 14:02 Temperature Temperature Source Pulse Rate Pulse Rate [Lying] Pulse Rate [Sitting] Pulse Rate [Standing] Respiratory Rate Respiratory Effort Respiratory Pattern Blood Pressure 157/88 H Blood Pressure [Lying] Blood Pressure [Sitting] Blood Pressure [Standing] Blood Pressure Mean 111 Blood Pressure Mean [Lying] Blood Pressure Mean [Sitting] Blood Pressure Mean [Standing] Pulse Ox 91 Oxygen Delivery Method Room Air Positive well nourished, well developed and obese General Appearance ED: well developed Nutritional Appearance: obese HEENT Reports normocephalic, head/scalp atraumatic, TM's clear and moist mucous membranes Negative for trauma Tympanic Membrane ED: Yes TM's clear Eyes PERRL and EOMs intact bilaterally Neck no lymphadenopathy, supple and no JVD Resp normal respiratory effort and clear to auscultation bilaterally Cardio regular rate, regular rhythm and no murmurs GI normal to inspection, nondistended, normoactive bowel sounds and non-tender Palpation: soft Back/Spine no CVA tenderness and normal ROM Thoracic Spine / Upper Back: Negative for paraspinal muscle tenderness Extremity normal to inspection General Extremety ED: Negative for edema General Extremity: Negative for edema Neuro oriented x3 and CN's II-XII intact bilaterally Sensorium / Orientation: alert Motor Exam: strength 5/5 throughout Psych mental status grossly normal Mood & Affect: Negative for depressed or tearful Skin no rashes or lesions noted and no wounds MDM MDM MDM Narrative Medical decision making narrative: Orthostatics are positive. Laying blood pressure 145/56 and standing 119/55 heart rate increases from 65-80. With standing the patient feels very symptomatic. Patient received a liter of IV fluids. Was noted the patient has an elevated white count at 19. However she does not have a fever and she does not report any infectious symptoms. CMP with a creatinine of 1.55 and glucose of 277. Patient was observed. She is doing better. I think this is most likely lightheadedness brought on by the orthostatic change in her blood pressure. I will have her go back to the original 30 mg of isosorbide mononitrate. Follow-up with cardiology Lab Data Labs: Laboratory Results - last 24 hr 12/17/20 12/17/20 12:03 12:03 WBC 19.0 H RBC 4.16 L Hgb 12.4 Hct 38.0 MCV 91.3 MCH 29.8 MCHC 32.6 RDW Std Deviation 43.1 RDW Coeff of Laquita 13.1 Plt Count 225 MPV 11.4 Immature Gran % (Auto) 0.500 Neut % (Auto) 82.3 H Lymph % (Auto) 10.8 L Carbon % (Auto) 5.6 Eos % (Auto) 0.5 Baso % (Auto) 0.3 Absolute Neuts (auto) 15.6 H Absolute Lymphs (auto) 2.04 Nucleated RBC % 0 Sodium 136 Potassium 4.0 Chloride 105 Carbon Dioxide 23.0 Anion Gap 8 BUN 32 H Creatinine 1.55 H Estim Creat Clear Calc 22.75 Est GFR (MDRD) Af Amer 41 L Est GFR (MDRD) Non-Af 34 L BUN/Creatinine Ratio 20.6 H Glucose 277 H Calcium 9.7 Total Bilirubin 0.40 AST 18 ALT 29 Alkaline Phosphatase 100 Total Protein 7.2 Albumin 3.3 Globulin 3.9 Albumin/Globulin Ratio 0.8 L Discharge Plan Triage Chief Complaint: Dizziness ED Provider: Familia Anderson Dx/Rx/DC Orders Clinical Impression: Orthostatic dizziness Instructions: ED Drug Reaction, Other Prescriptions: No Action gabapentin 300 mg capsule 300 mg PO BID RF: 0 aspirin [Adult Low Dose Aspirin] 81 mg tablet,delayed release (DR/EC) 81 mg PO DAILY RF: 0 cholecalciferol (vitamin D3) 25 mcg (1,000 unit) capsule 25 mcg PO TUSA RF: 0 levothyroxine 50 mcg tablet 50 mcg PO DAILY RF: 0 atorvastatin 40 mg tablet 40 mg PO QHS RF: 0 isosorbide mononitrate 30 mg tablet extended release 24 hr 60 mg PO DAILY Qty: 90 RF: 3 lansoprazole 30 mg capsule,delayed release(DR/EC) 30 mg PO DAILY RF: 0 lisinopril 20 mg tablet 20 mg PO DAILY RF: 0 Januvia 50 mg tablet 50 mg PO DAILY Qty: 90 RF: 3 insulin lispro 100 unit/mL cartridge See Rx Instructions subcut 4X/DAY PRN (Reason: DM) RF: 0 insulin glargine 100 unit/mL solution 64 unit subcut BREAKFAST RF: 0 hydralazine 50 MG tablet 50 mg PO TID RF: 0 furosemide 20 MG tablet 20 mg PO DAILY RF: 0 duloxetine 20 MG capsule 20 mg PO DAILY RF: 0 oxybutynin chloride 10 MG tablet extended release 24hr 10 mg PO DAILY RF: 0 diphenhydramine-acetaminophen 1 EACH tablet 2 tab PO QHS RF: 0 nitroglycerin 0.4 mg tablet, sublingual 0.4 mg SUBLINGUAL Q5M PRN (Reason: chest pain) Qty: 25 RF: 3 clopidogrel 75 mg tablet 75 mg PO DAILY Qty: 90 RF: 3 amlodipine 10 mg tablet 10 mg PO DAILY Qty: 90 RF: 3 Primary Care Provider: Fernando Kong Referrals: Nayan Cee MD [STAFF PHYSICIAN] - (Please call your cardiology's office and inform them of today's events.) Fernando Kong MD [Primary Care Provider] - As Needed Activity Restrictions/Additional Instructions: Please return to the isosorbide 30 mg dose that you are on previously. Please call your batch records clerk office to discuss different medication. Disposition Disposition: Home, Self Care
[2020-12-17 11:10] VITALS: BP 119/55; BP 128/57; BP 145/56; PULSE 65; PULSE 77; PULSE 80
[2020-12-17] MEDS: Ondansetron 4 MG/2 ML Vial IV (11:37)
[2020-12-17] MEDS: 0.9% Normal Saline 1,000 ML 1000 ML IV (11:37)
[2020-12-17 12:11] LABS: Absolute Lymphocyte Count 2.04 X10^3/uL (0.83-4.51); Absolute Neutrophil Count 15.6 X10^3/uL (2.0-7.7); Basophil# 0.06 X10^3/uL; Basophil% 0.3 % (0-1); Eosinophil# 0.09 X10^3/uL; Eosinophils% 0.5 % (0-5); Hemoglobin 12.4 g/dL (12.0-15.0); Lymphocyte # 2.04 X10^3/ul (0.83-4.51); Lymphocyte % 10.8 % (19-41); Mean Corp Hgb Conc 32.6 g/dL (32-36); Mean Corpuscular Hgb 29.8 pg (27.0-32.0); Mean Corpuscular Volume 91.3 fL (81-99); Mean Platelet Vol. 11.4 fl (6.2-12.0); Monocyte# 1.07 X10^3/uL; Monocyte% 5.6 % (0-10); NRBC Flagged by Analyzer 0 % (0-5); Neutrophil % 82.3 % (47-70); Platelet Count 225 K/mm3 (150-450); RBC Distribution Width CV 13.1 % (11.6-14.6); RBC Distribution Width SD 43.1 fl (35.1-43.9); Red Blood Count 4.16 M/mm3 (4.2-5.4)
[2020-12-17 12:28] LABS: ALB/GLOB Ratio 0.8 RATIO (0.9-2.4); AST(SGOT) 18 U/L (15-37); Alanine Aminotransfer ALT/SGPT 29 U/L (13-56); Albumin, Serum 3.3 g/dL (3.2-5.0); Alkaline Phosphatase 100 U/L (45-117); Anion Gap 8 (5-15); BUN 32 mg/dL (7-18); BUN/Creat Ratio 20.6 RATIO (10-20); Calcium,Total 9.7 mg/dL (8.5-10.1); Chloride 105 mmol/L (98-107); Creatinine, Serum 1.55 mg/dL (0.55-1.02); EST Glomerular Filtration Rate 34 mL/min (>60); Est Glom Filt Rate - Afr Amer 41 mL/min (>60); Estimated Creatinine Clearance 22.75 ml/min; Globulin 3.9 g/dL (2.2-4.2); Glucose 277 mg/dL (74-106); Protein, Total 7.2 g/dL (6.4-8.2); Sodium Level 136 mmol/L (136-145)
--- NOTE | 2020-12-17 13:53 | ED.RN ---
Ambulated pt. to bathroom. Pt. was slightly dizzy first few moments, then was bale to walk to and from with no difficultly. Reports feeling better than when they first arrived.
[2020-12-17 14:02] VITALS: BP 157/88; O2SAT 91
[2020-12-17 14:22] VITALS: O2SAT 92
== END 2020-12-17 14:23 | disposition home or self-care (01) ==
PROVIDERS: Emergency Provider Emergency Medicine; PCP Family Medicine
DX: R42 Dizziness and giddiness (principal); E66.9 Obesity, unspecified; R51.9 Headache, unspecified; R11.0 Nausea; E03.9 Hypothyroidism, unspecified; E11.22 Type 2 diabetes mellitus with diabetic chronic kidney disease; E78.00 Pure hypercholesterolemia, unspecified; G47.33 Obstructive sleep apnea (adult) (pediatric); I12.9 Hypertensive chronic kidney disease with stage 1 through stage 4 chronic kidney disease, or unspecified chronic kidney disease; N18.30 Chronic kidney disease, stage 3 unspecified; I25.10 Atherosclerotic heart disease of native coronary artery without angina pectoris; K21.9 Gastro-esophageal reflux disease without esophagitis; Z86.73 Personal history of transient ischemic attack (TIA), and cerebral infarction without residual deficits; Z79.4 Long term (current) use of insulin; Z79.82 Long term (current) use of aspirin; Z95.5 Presence of coronary angioplasty implant and graft
CPT/HCPCS: 36415; 80053; 85025; 96361; 96374; 99285; J7030; A4216; J2405

== ENCOUNTER 2021-02-03 09:09 | Inpatient (IN) | payer MEDICARE, SELFPAY ==
[2018-12-11 13:27] VITALS: BMI 28.7
[2021-02-03] VITALS (16 sets, daily range): BP systolic 168–192; BP diastolic 43–77; PULSE 75–97; RESP 16–28; TEMP 36.9–37.4; O2SAT 87–95; BMI 28.3
--- NOTE | 2021-02-03 09:24 | EKG12_ITS ---
Test Reason : SOB Blood Pressure : / mmHG Vent. Rate : 075 BPM Atrial Rate : 074 BPM P-R Int : 000 ms QRS Dur : 078 ms QT Int : 392 ms P-R-T Axes : 000 031 003 degrees QTc Int : 437 ms Normal sinus rhythm Nonspecific ST and T wave abnormality Abnormal ECG Confirmed by LAURA BENITEZ, CARRIE ([id number]), medical editor KATHI TSE ([id number]) on 02/06/2021 9:44:14 AM Referred By: OMARI Confirmed By:CARRIE SANCHEZ MD
--- NOTE | 2021-02-03 09:24 | RAD_ITS ---
STUDY: X-RAY CHEST REASON FOR EXAM: Female, 85 years old. Shortness of breath TECHNIQUE: Frontal view of the chest COMPARISON: 01/19/20 FINDINGS: The lungs are clear. There are no pleural effusions. There is no pneumothorax. The heart is normal in size. Again noted are sternotomy wires and a spinal stimulator electrode. The visualized osseous structures are within normal limits. RAD/Chest 1 View (Portable) IMPRESSION: No acute thoracic pathology. Electronically Signed: Kel Steel MD at 10:10 EST Tel , Service support ,
--- NOTE | 2021-02-03 09:32 | EDS_ITS ---
HPI History of Present Illness Chief Complaint: Shortness of Breath Narrative Narrative: Patient has had 2 to 3-month history of progressive dyspnea. She has seen pulmonology and cardiology. She is due for an echo, at this time she does not know the etiology of her dyspnea. Her dyspnea got worse today. She has a cough but it is nonproductive. She has no fevers or chills. She has no chest pain or back pain. No lower extremity edema. No orthopnea. No night sweats. No recent illness. 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 Presence of stent in coronary artery (~12/11/18) Pure hypercholesterolemia Renal cancer Shortness of breath TIA (transient ischemic attack) Home Medications duloxetine 20 mg PO DAILY 12/20/18 [History Last Taken 08/10/19] hydralazine 50 mg PO TID 12/20/18 [History Last Taken 09/17/19 05:30] aspirin 81 mg tablet,delayed release 81 mg PO DAILY 01/01/19 [History Last Taken 08/10/19] gabapentin 300 mg capsule 300 mg PO BID 01/01/19 [History Last Taken 03/23/19] diphenhydramine-acetaminophen 2 tab PO QHS 03/23/19 [History Last Taken 03/22/19] oxybutynin chloride 10 mg PO DAILY 03/23/19 [History Last Taken 03/23/19] cholecalciferol (vitamin D3) 25 mcg (1,000 unit) capsule 25 mcg PO QODAY cap 07/28/19 [History Last Taken Unknown] nitroglycerin 0.4 mg sublingual tablet 0.4 mg SUBLINGUAL Q5M PRN #25 tab 09/28/19 [Rx Last Taken Unknown] amlodipine 10 mg tablet 10 mg PO DAILY #90 tab 03/03/20 [Rx Last Taken Unknown] atorvastatin 40 mg tablet 40 mg PO QHS 05/10/20 [History Last Taken Unknown] levothyroxine 50 mcg tablet 50 mcg PO DAILY 05/10/20 [History Last Taken Unknown] lansoprazole 30 mg capsule,delayed release 30 mg PO DAILY 12/08/20 [History Last Taken Unknown] lisinopril 20 mg tablet 20 mg PO DAILY 12/08/20 [History Last Taken Unknown] isosorbide mononitrate 30 mg tablet,extended release 24 hr 60 mg PO DAILY #90 tab 12/14/20 [Rx Last Taken Unknown] clopidogrel 75 mg tablet 75 mg PO DAILY #90 tab 01/01/21 [Rx Last Taken Unknown] insulin glargine 100 unit/mL subcutaneous solution 33 unit SUBCUT BREAKFAST ml 01/25/21 [History Last Taken Unknown] insulin lispro 100 unit/mL subcutaneous pen See Rx Instructions SUBCUT TID ml 01/25/21 [History Last Taken Unknown] metformin 500 mg tablet,extended release 24 hr 1,000 mg PO BID tab 01/25/21 [History Last Taken Unknown] metoprolol tartrate 50 mg tablet 50 mg PO BID tab 01/25/21 [History Last Taken Unknown] Allergy/AdvReac Type Severity Reaction Status Date / Time latex Allergy Rash Verified 02/03/21 09:11 adhesive tape AdvReac Rash Verified 02/03/21 09:11 ticagrelor [From Brilinta] AdvReac Shortness Verified 02/03/21 09:11 of breath Family History Father Heart disease Mother Breast cancer Diabetes Heart disease Surgical History History of back surgery History of coronary artery bypass graft x 3 (~04/08/16) History of hysterectomy History of knee replacement procedure of right knee History of right and left heart catheterization (LHC) (~08/10/19) History of right inguinal hernia repair Postlaminectomy syndrome of lumbar region Presence of coronary angioplasty implant and graft (~12/11/18) Social History Smoking Status: Never smoker alcohol intake: never caffeine: No ROS ROS ED ROS Narrative Past medical history: Reviewed, as above Medications: Reviewed Social history: Noncontributory Review of systems: All systems negative except as indicated General: No fever Eyes: No visual changes ENT: No upper airway congestion, normal voice Neck: No neck pain Cardiovascular: No chest pain Respiratory: Shortness of breath as in HPI Gastrointestinal: No abdominal pain, nausea vomiting or diarrhea Genitourinary: No dysuria Musculoskeletal: Denies myalgias no difficulty with ambulation Skin: No rash Neurological: No memory loss, confusion or any focal weakness Psych: No recent behavioral changes Hematologic: No easy bleeding or easy bruising EXAM Physical Exam Narrative Exam Narrative: Physical exam General: Patient appears in some respiratory distress. She appears uncomfortable. Head: Normocephalic, Atraumatic Eyes: Conjunctiva not pale ENT: Moist mucous membranes Neck: Supple, Nontender, No lymphadenopathy Cardiovascular: Regular rate no obvious murmurs Respiratory: She has shallow inspirations, some scant wheezing. She is tachypneic. Pulse ox is 88% on room air she was placed on oxygen. Abdomen: Soft, Nontender, Nondistended Back: Nontender, Normal Inspection. Negative for: CVA tenderness Extremities: Nontender, No edema Skin: Normal color, No rash Neurological: Alert, Normal Strength, Normal Sensation Psychological: Normal affect Const Vital Signs: 02/03/21 09:10 02/03/21 09:16 02/03/21 09:20 Temperature 99.2 F H Temperature Source Temporal Pulse Rate 80 78 Respiratory Rate 20 H 28 H Respiratory Effort Respiratory Depth Respiratory Pattern Blood Pressure 170/61 H 192/77 H Blood Pressure Mean 97 115 Pulse Ox 94 93 Oxygen Delivery Method Room Air Room Air 02/03/21 09:21 02/03/21 09:48 Temperature Temperature Source Pulse Rate 79 Respiratory Rate 24 H Respiratory Effort Short of Breath Respiratory Depth Normal Respiratory Pattern Tachypnea Tachypnea Blood Pressure Blood Pressure Mean Pulse Ox Oxygen Delivery Method Room Air MDM MDM MDM Narrative Medical decision making narrative: Patient continues to remain hypoxic. I cannot find a source of her hypoxia she does not seem to have any pneumonia, she has mild fluid on her CT angiogram and slightly elevated natruretic peptide, I doubt this is the whole source of her hypoxia but I will give a low amount of IV Lasix. Regardless she will need admission for further work-up and for her oxygen demand. Lab Data Labs: Laboratory Results - last 24 hr 02/03/21 02/03/21 02/03/21 09:21 09:21 09:21 WBC 16.5 H RBC 4.55 Hgb 14.0 Hct 41.4 MCV 91.0 MCH 30.8 MCHC 33.8 RDW Std Deviation 45.6 H RDW Coeff of Laquita 13.6 Plt Count 225 MPV 11.3 Immature Gran % (Auto) 0.600 Neut % (Auto) 77.4 H Lymph % (Auto) 12.1 L [place] % (Auto) 8.9 Eos % (Auto) 0.7 Baso % (Auto) 0.3 Absolute Neuts (auto) 12.8 H Absolute Lymphs (auto) 2.00 Nucleated RBC % 0 D-Dimer Quant (PE/DVT) 2.26 H* Sodium 137 Potassium 4.1 Chloride 107 Carbon Dioxide 23.0 Anion Gap 7 BUN 35 H Creatinine 1.59 H Estim Creat Clear Calc 22.18 Est GFR (MDRD) Af Amer 40 L Est GFR (MDRD) Non-Af 33 L BUN/Creatinine Ratio 22.0 H Glucose 320 H Calcium 9.1 Total Bilirubin 0.50 AST 19 ALT 29 Alkaline Phosphatase 126 H Troponin I High Sens 24 B-Natriuretic Peptide Total Protein 8.3 H Albumin 3.6 Globulin 4.7 H Albumin/Globulin Ratio 0.8 L 02/03/21 09:21 WBC RBC Hgb Hct MCV MCH MCHC RDW Std Deviation RDW Coeff of Laquita Plt Count MPV Immature Gran % (Auto) Neut % (Auto) Lymph % (Auto) [place] % (Auto) Eos % (Auto) Baso % (Auto) Absolute Neuts (auto) Absolute Lymphs (auto) Nucleated RBC % D-Dimer Quant (PE/DVT) Sodium Potassium Chloride Carbon Dioxide Anion Gap BUN Creatinine Estim Creat Clear Calc Est GFR (MDRD) Af Amer Est GFR (MDRD) Non-Af BUN/Creatinine Ratio Glucose Calcium Total Bilirubin AST ALT Alkaline Phosphatase Troponin I High Sens B-Natriuretic Peptide 654.8 H Total Protein Albumin Globulin Albumin/Globulin Ratio Radiography Diagnostic Testing: Clinical Impression(s) from Imaging Studies Chest X-Ray 02/03/21 09:24 IMPRESSION: No acute thoracic pathology. Electronically Signed: Kel Steel MD at 10:10 EST Tel , Service support , Chest CTA 02/03/21 09:58 IMPRESSION: No pulmonary embolus. No thoracic aortic aneurysm or dissection. Mild pulmonary vascular congestion. Trace bilateral pleural effusions with overlying atelectasis. Status post sternotomy and coronary artery bypass. Electronically Signed: Kel Steel MD at 10:40 EST Tel , Service support , Discharge Plan Triage Chief Complaint: Shortness of Breath ED Provider: Galileo Day Dx/Rx/DC Orders Clinical Impression: Acute dyspnea, Hypoxia Prescriptions: No Action gabapentin 300 mg capsule 300 mg PO BID RF: 0 aspirin [Adult Low Dose Aspirin] 81 mg tablet,delayed release (DR/EC) 81 mg PO DAILY RF: 0 cholecalciferol (vitamin D3) 25 mcg (1,000 unit) capsule 25 mcg PO QODAY RF: 0 levothyroxine 50 mcg tablet 50 mcg PO DAILY RF: 0 atorvastatin 40 mg tablet 40 mg PO QHS RF: 0 isosorbide mononitrate 30 mg tablet extended release 24 hr 60 mg PO DAILY Qty: 90 RF: 3 lansoprazole 30 mg capsule,delayed release(DR/EC) 30 mg PO DAILY RF: 0 lisinopril 20 mg tablet 20 mg PO DAILY RF: 0 metformin 500 mg tablet extended release 24 hr 1,000 mg PO BID RF: 0 metoprolol tartrate 50 mg tablet 50 mg PO BID RF: 0 insulin lispro [Humalog KwikPen Insulin] 100 unit/mL insulin pen See Rx Instructions subcut TID RF: 0 insulin glargine 100 unit/mL solution 33 unit subcut BREAKFAST RF: 0 hydralazine 50 MG tablet 50 mg PO TID RF: 0 duloxetine 20 MG capsule 20 mg PO DAILY RF: 0 oxybutynin chloride 10 MG tablet extended release 24hr 10 mg PO DAILY RF: 0 diphenhydramine-acetaminophen 1 EACH tablet 2 tab PO QHS RF: 0 nitroglycerin 0.4 mg tablet, sublingual 0.4 mg SUBLINGUAL Q5M PRN (Reason: chest pain) Qty: 25 RF: 3 amlodipine 10 mg tablet 10 mg PO DAILY Qty: 90 RF: 3 clopidogrel 75 mg tablet 75 mg PO DAILY Qty: 90 RF: 3 Primary Care Provider: Fernando Kong Referrals: Fernando Kong MD [Primary Care Provider] - Disposition Disposition: Acute Care [facility]
[2021-02-03 09:37] LABS: Absolute Neutrophil Count 12.8 X10^3/uL (2.0-7.7); Basophil# 0.05 X10^3/uL; Basophil% 0.3 % (0-1); Eosinophil# 0.11 X10^3/uL; Eosinophils% 0.7 % (0-5); Hematocrit 41.4 % (37-47); Lymphocyte % 12.1 % (19-41); Mean Corp Hgb Conc 33.8 g/dL (32-36); Mean Corpuscular Hgb 30.8 pg (27.0-32.0); Mean Platelet Vol. 11.3 fl (6.2-12.0); Monocyte# 1.47 X10^3/uL; Monocyte% 8.9 % (0-10); NRBC Flagged by Analyzer 0 % (0-5); Neutrophil # 12.77 X10^3/uL (2.7-7.7); Neutrophil % 77.4 % (47-70); Platelet Count 225 K/mm3 (150-450); RBC Distribution Width CV 13.6 % (11.6-14.6); RBC Distribution Width SD 45.6 fl (35.1-43.9); Red Blood Count 4.55 M/mm3 (4.2-5.4); White Blood Count 16.5 K/mm3 (4.4-11.0)
[2021-02-03] MEDS: Ipratropium/Albuterol Sulfate 3 ML AMPUL.NEB INHALATION (09:37)
[2021-02-03 09:47] LABS: D-Dimer Quantitative (DVT/PE) 2.26 FEU/ug/m (0.27-0.49)
[2021-02-03 09:52] LABS: ALB/GLOB Ratio 0.8 RATIO (0.9-2.4); AST(SGOT) 19 U/L (15-37); Alanine Aminotransfer ALT/SGPT 29 U/L (13-56); Albumin, Serum 3.6 g/dL (3.2-5.0); Alkaline Phosphatase 126 U/L (45-117); Anion Gap 7 (5-15); BUN 35 mg/dL (7-18); Calcium,Total 9.1 mg/dL (8.5-10.1); Chloride 107 mmol/L (98-107); Creatinine, Serum 1.59 mg/dL (0.55-1.02); EST Glomerular Filtration Rate 33 mL/min (>60); Est Glom Filt Rate - Afr Amer 40 mL/min (>60); Estimated Creatinine Clearance 22.18 ml/min; Globulin 4.7 g/dL (2.2-4.2); Glucose 320 mg/dL (74-106); Potassium 4.1 mmol/L (3.5-5.1); Protein, Total 8.3 g/dL (6.4-8.2); Sodium Level 137 mmol/L (136-145); Troponin-I HS 24 pg/mL (3.0-54.0)
--- NOTE | 2021-02-03 09:58 | CT_ITS ---
STUDY: CTA CHEST REASON FOR EXAM: Female, 85 years old. sob RADIATION DOSAGE (If Supplied By Facility): CTDIvol = ( 11.63 ) mGy, DLP = ( 450.47 ) mGycm TECHNIQUE: The examination was performed with the intravenous administration of IV 75mL [id number]-370. Post-processing of the angiographic images was performed, with multiplanar reformation and 3D reconstruction. Individualized dose optimization techniques were used for this CT. COMPARISON: 09/14/18 FINDINGS: There are mild congestive changes noted in the lungs. There are trace bilateral pleural effusions with overlying atelectasis. There are no pulmonary infiltrates. There are stable calcified granulomata noted in the lungs. There is no pulmonary embolus. There is no thoracic aortic aneurysm or dissection. The patient is status post sternotomy and coronary artery bypass. The [place] coronary arteries are calcified. The heart is normal in size. There is no pericardial effusion. Images through the upper abdomen demonstrate no significant abnormality. There are no destructive osseous lesions. There is a spinal stimulator electrode in place. CT/CTA Chest W/WO Contrast IMPRESSION: No pulmonary embolus. No thoracic aortic aneurysm or dissection. Mild pulmonary vascular congestion. Trace bilateral pleural effusions with overlying atelectasis. Status post sternotomy and coronary artery bypass. Electronically Signed: Kel Steel MD at 10:40 EST Tel , Service support ,
[2021-02-03 10:01] LABS: BNP,B-Type NATRIURETIC PEPTIDE 654.8 pg/mL (0-100)
[2021-02-03] MEDS: Furosemide 20 MG/2 ML VIAL IV (11:03)
--- NOTE | 2021-02-03 12:13 | PCM.HP.STD ---
HPI - General General Date of Admission: 02/03/21 HPI Narrative GLORIA PAUL, is a 85 F who presents with SOB for 6 months. Has been evaluated by pulm and cards with no concise etiology of her VILLATORO. Last week she gained 6# in 1 day. Denies LE edema. She presented to the ED and was found to be hypoxic at 88% on room air and was placed on 2 L/m and has done well. CTA negative for PE, BNP elevated. She received furosemide in the ED. Pt being admitted for further CHF work up. [facility], LATER [facility] Medical History Angina pectoris Atherosclerotic heart disease of [place] coronary artery without angina pectoris CAD (coronary artery disease) Carotid stenosis, left Chest pain Chronic renal failure, stage 3 (moderate) Debility Diabetes mellitus, type 2 Dyspnea on exertion Edema Essential hypertension Fatigue Fibromyalgia GERD (gastroesophageal reflux disease) History of stroke Hypothyroidism Lumbosacral radiculopathy Microalbuminuria Obstructive sleep apnea Other long term acute care registered nurse (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 Presence of stent in coronary artery (~12/11/18) Pure hypercholesterolemia Renal cancer Shortness of breath TIA (transient ischemic attack) Home Medications duloxetine 20 mg PO DAILY 12/20/18 [History Last Taken 08/10/19] hydralazine 50 mg PO TID 12/20/18 [History Last Taken 09/17/19 05:30] aspirin 81 mg tablet,delayed release 81 mg PO DAILY 01/01/19 [History Last Taken 08/10/19] gabapentin 300 mg capsule 300 mg PO BID 01/01/19 [History Last Taken 03/23/19] diphenhydramine-acetaminophen 2 tab PO QHS 03/23/19 [History Last Taken 03/22/19] oxybutynin chloride 10 mg PO DAILY 03/23/19 [History Last Taken 03/23/19] cholecalciferol (vitamin D3) 25 mcg (1,000 unit) capsule 25 mcg PO QODAY cap 07/28/19 [History Last Taken Unknown] nitroglycerin 0.4 mg sublingual tablet 0.4 mg SUBLINGUAL Q5M PRN #25 tab 09/28/19 [Rx Last Taken Unknown] amlodipine 10 mg tablet 10 mg PO DAILY #90 tab 03/03/20 [Rx Last Taken Unknown] atorvastatin 40 mg tablet 40 mg PO QHS 05/10/20 [History Last Taken Unknown] levothyroxine 50 mcg tablet 50 mcg PO DAILY 05/10/20 [History Last Taken Unknown] lansoprazole 30 mg capsule,delayed release 30 mg PO DAILY 12/08/20 [History Last Taken Unknown] lisinopril 20 mg tablet 20 mg PO DAILY 12/08/20 [History Last Taken Unknown] isosorbide mononitrate 30 mg tablet,extended release 24 hr 60 mg PO DAILY #90 tab 12/14/20 [Rx Last Taken Unknown] clopidogrel 75 mg tablet 75 mg PO DAILY #90 tab 01/01/21 [Rx Last Taken Unknown] insulin glargine 100 unit/mL subcutaneous solution 33 unit SUBCUT BREAKFAST ml 01/25/21 [History Last Taken Unknown] insulin lispro 100 unit/mL subcutaneous pen See Rx Instructions SUBCUT TID ml 01/25/21 [History Last Taken Unknown] metformin 500 mg tablet,extended release 24 hr 1,000 mg PO BID tab 01/25/21 [History Last Taken Unknown] metoprolol tartrate 50 mg tablet 50 mg PO BID tab 01/25/21 [History Last Taken Unknown] Allergy/AdvReac Type Severity Reaction Status Date / Time latex Allergy Rash Verified 02/03/21 09:11 adhesive tape AdvReac Rash Verified 02/03/21 09:11 ticagrelor [From Brilinta] AdvReac Shortness Verified 02/03/21 09:11 of breath Family History Father Heart disease Mother Breast cancer Diabetes Heart disease Surgical History History of back surgery History of coronary artery bypass graft x 3 (~04/08/16) History of hysterectomy History of knee replacement procedure of right knee History of right and left heart catheterization (LHC) (~08/10/19) History of right inguinal hernia repair Postlaminectomy syndrome of lumbar region Presence of coronary angioplasty implant and graft (~12/11/18) Social History Smoking Status: Never smoker alcohol intake: never caffeine: No ROS ROS Narrative Chest pain worse with deep respirations. Denies any COVID-19 contacts. Patient has been vaccinated for COVID-19. All review of systems were negative except as mentioned above in the history of present illness and the other review of systems. Vital Signs Vital Signs Vital Signs: 02/03/21 09:10 02/03/21 09:16 02/03/21 09:20 Temperature 37.3 C H Temperature Source Temporal Pulse Rate 80 78 Respiratory Rate 20 H 28 H Respiratory Effort Respiratory Depth Respiratory Pattern Blood Pressure 170/61 H 192/77 H Blood Pressure Mean 97 115 Pulse Ox 94 93 Oxygen Delivery Method Room Air Room Air Oxygen Flow Rate (L/min) 02/03/21 09:21 02/03/21 09:48 02/03/21 11:08 Temperature Temperature Source Pulse Rate 79 85 Respiratory Rate 24 H 22 H Respiratory Effort Short of Breath Respiratory Depth Normal Respiratory Pattern Tachypnea Tachypnea Blood Pressure 169/60 H Blood Pressure Mean 96 Pulse Ox 94 Oxygen Delivery Method Room Air Nasal Cannula Oxygen Flow Rate (L/min) 2 02/03/21 11:42 Temperature 37.4 C H Temperature Source Temporal Pulse Rate 78 Respiratory Rate 16 Respiratory Effort Respiratory Depth Respiratory Pattern Blood Pressure 171/43 H Blood Pressure Mean 85 Pulse Ox 93 Oxygen Delivery Method Room Air Oxygen Flow Rate (L/min) Weight Weight: 72.575 kg Body Mass Index (BMI) 28.3 Physical Exam Const alert, no apparent distress and average body habitus General Appearance: cooperative HEENT normocephalic, head/scalp atraumatic, hearing grossly normal bilaterally and moist oral mucous membranes Neck no lymphadenopathy Neck Narrative: +JVD Resp normal respiratory effort and no retractions Resp Narrative: bibasilar crackles. Cardio regular rate, regular rhythm, S1 normal heart sound and S2 normal heart sound GI normal to inspection, nondistended, normoactive bowel sounds, soft to palpation, non-tender and non-distended Extremity normal to inspection and full ROM Skin no rashes or lesions noted and no wounds Neuro Sensorium / Orientation: awake and alert Psych affect normal Results Lab / Micro Data Attestation: I reviewed the patient's lab results. Result Diagrams: 02/03/21 09:21 02/03/21 09:21 Labs: Laboratory Results - last 24 hr 02/03/21 09:21: WBC 16.5 H, RBC 4.55, Hgb 14.0, Hct 41.4, MCV 91.0, MCH 30.8, MCHC 33.8, RDW Std Deviation 45.6 H, RDW Coeff of Laquita 13.6, Plt Count 225, MPV 11.3, Immature Gran % (Auto) 0.600, Neut % (Auto) 77.4 H, Lymph % (Auto) 12.1 L, [place] % (Auto) 8.9, Eos % (Auto) 0.7, Baso % (Auto) 0.3, Absolute Neuts (auto) 12.8 H, Absolute Lymphs (auto) 2.00, Nucleated RBC % 0 02/03/21 09:21: D-Dimer Quant (PE/DVT) 2.26 H* 02/03/21 09:21: Sodium 137, Potassium 4.1, Chloride 107, Carbon Dioxide 23.0, Anion Gap 7, BUN 35 H, Creatinine 1.59 H, Estim Creat Clear Calc 22.18, Est GFR (MDRD) Af Amer 40 L, Est GFR (MDRD) Non-Af 33 L, BUN/Creatinine Ratio 22.0 H, Glucose 320 H, Calcium 9.1, Total Bilirubin 0.50, AST 19, ALT 29, Alkaline Phosphatase 126 H, Troponin I High Sens 24, Total Protein 8.3 H, Albumin 3.6, Globulin 4.7 H, Albumin/Globulin Ratio 0.8 L 02/03/21 09:21: B-Natriuretic Peptide 654.8 H Micro: Microbiology 02/03/21 09:28 Nasal Secretion SARS-CoV-2 Antigen (Rapid) - Final Radiology Impression Chest X-Ray 02/03/21 09:24 IMPRESSION: No acute thoracic pathology. Electronically Signed: Kel Steel MD at 10:10 EST Tel , Service support , Chest CTA 02/03/21 09:58 IMPRESSION: No pulmonary embolus. No thoracic aortic aneurysm or dissection. Mild pulmonary vascular congestion. Trace bilateral pleural effusions with overlying atelectasis. Status post sternotomy and coronary artery bypass. Electronically Signed: Kel Steel MD at 10:40 EST Tel , Service support , Assessment & Plan Assessment/Plan (1) Acute respiratory failure with hypoxia: (2) (HFpEF) heart failure with preserved ejection fraction: QUALIFIERS: Heart failure chronicity: acute Qualified Code(s): I50.31 - Acute diastolic (congestive) heart failure PLAN: 1. acute hypoxic resp failure 2/2 CHF wean oxygen as able prior 6-minute walk was unremarkable PFTs negative 2. Acute HFpEF EF 65% from echo on 12/28/2019 IV furosemide continue lisinopril 3. DM2 insulin-dependent continue SSI, glargine hold metformin for CHF 4. VTE prophylaxis: LMWH 5. CODE status: DW pt, she wishes to be full code. Charges/Coding Visit Charges Inpatient E&M: 72577 Init Hosp L3
--- NOTE | 2021-02-03 12:38 | ECHOD_ITS ---
Reason For Study: CHF Procedure This was a 2D Doppler, Color Flow transthoracic echocardiogram. The study was technically difficult. Exam performed portable in patient room. Left Ventricle Normal LV size. Left ventricular systolic function is normal. The estimated ejection fraction is 65 %. Stage 1 diastolic dysfunction. No regional wall motion abnormalities noted. Right Ventricle Normal RV size. Normal systolic function. Atria Normal left atrium. Normal right atrium. Mitral Valve Normal mitral valve. Tricuspid Valve Normal tricuspid valve. Aortic Valve Normal aortic valve. Trisinus/trileaflet aortic valve. Great Vessels Normal aortic root. The pulmonary artery is normal size. Normal inferior vena cava. Pericardium/Pleural No pericardial effusion. MMode/2D Measurements & Calculations LVIDd: 4.6 cm IVSd: 0.97 cm Ao root diam: 3.3 cm LVIDs: 2.8 cm LVPWd: 0.99 cm FS: 40.2 % LAV(MOD-bp): 54.5 ml LA A4 area: 19.0 cm2 LA dimension(2D): 5.0 cm LAV(MOD-bp) Indexed: 31.0 ml/m2 LAV(MOD-sp2): 49.1 ml LAV(MOD-sp4): 57.8 ml RA A4 area: 12.9 cm2 Time Measurements MV dec time: 0.34 sec Doppler Measurements & Calculations MV E max sumeet: 70.7 cm/sec Lat Peak E' Sumeet: 6.6 cm/sec Med Peak E' Sumeet: 5.6 cm/sec MV A max sumeet: 99.4 cm/sec E/E' lat: 10.6 E/E' med: 12.7 MV E/A: 0.71 Ao V2 max: 128.2 cm/sec LV V1 max: 95.0 cm/sec Ao max P.6 mmHg LV V1 max P.6 mmHg ECHO/Echo Complete Interpretation Summary Normal LV size. Left ventricular systolic function is normal. The estimated ejection fraction is 65 %. Stage 1 diastolic dysfunction. Ordering Physician: Yuriy Browning Referring Physician: Fernando Kong Performed By: Jenny Ley, CASI, RVT
--- NOTE | 2021-02-03 12:40 | PCS.PANDOC ---
PANDEMIC DOCUMENTATION INITIATED: Date: 09/25/2020 Time: 190
[2021-02-03 13:58] LABS: Troponin-I HS 23 pg/mL (3.0-54.0)
[2021-02-03] MEDS: hydrALAZINE 50 MG Tablet PO ×2 (15:23→21:15)
[2021-02-03 15:38] LABS: Troponin-I HS 21 pg/mL (3.0-54.0)
[2021-02-03] MEDS: 0.9% Saline Lock 10 ML Syringe IV (17:20)
[2021-02-03] MEDS: Furosemide 40 MG/4 ML Vial IV (17:20)
[2021-02-03] MEDS: Insulin Lispro 100 UNIT/ML INSULN.PEN 20 UNIT SC (17:26)
[2021-02-03] MEDS: Insulin Lispro 100 UNIT/ML INSULN.PEN SC (17:26)
[2021-02-03] MEDS: Metoprolol Tartrate 50 MG Tablet PO (21:16)
[2021-02-03] MEDS: Atorvastatin Calcium 40 MG Tablet PO (21:16)
[2021-02-03] MEDS: Gabapentin 300 MG Capsule PO (21:17)
[2021-02-03 21:26] LABS: Bedside Glucose 293 mg/dL (70-110)
[2021-02-04] VITALS (17 sets, daily range): BP systolic 125–176; BP diastolic 54–73; PULSE 58–89; RESP 14–20; TEMP 36.2–36.9; O2SAT 92–98
[2021-02-04] MEDS: Levothyroxine 50 MCG Tablet PO (06:13)
[2021-02-04] MEDS: hydrALAZINE 50 MG Tablet PO ×3 (06:13→21:17)
[2021-02-04] MEDS: Insulin Lispro 100 UNIT/ML INSULN.PEN SC ×4 (06:35→22:01)
[2021-02-04 06:40] LABS: Bedside Glucose 227 mg/dL (70-110)
[2021-02-04 07:08] LABS: Absolute Lymphocyte Count 2.76 X10^3/uL (0.83-4.51); Basophil# 0.05 X10^3/uL; Basophil% 0.5 % (0-1); Eosinophil# 0.15 X10^3/uL; Eosinophils% 1.5 % (0-5); Hematocrit 45.1 % (37-47); Hemoglobin 14.6 g/dL (12.0-15.0); Lymphocyte # 2.76 X10^3/ul (0.83-4.51); Mean Corp Hgb Conc 32.4 g/dL (32-36); Mean Corpuscular Hgb 29.1 pg (27.0-32.0); Mean Platelet Vol. 11.6 fl (6.2-12.0); Monocyte# 0.91 X10^3/uL; Monocyte% 9.2 % (0-10); NRBC Flagged by Analyzer 0 % (0-5); Neutrophil # 5.96 X10^3/uL (2.7-7.7); Neutrophil % 60.4 % (47-70); Platelet Count 246 K/mm3 (150-450); RBC Distribution Width CV 13.5 % (11.6-14.6); RBC Distribution Width SD 44.5 fl (35.1-43.9); Red Blood Count 5.01 M/mm3 (4.2-5.4); White Blood Count 9.9 K/mm3 (4.4-11.0)
[2021-02-04 07:33] LABS: Anion Gap 8 (5-15); BUN 30 mg/dL (7-18); BUN/Creat Ratio 20.5 RATIO (10-20); Calcium,Total 9.3 mg/dL (8.5-10.1); Chloride 102 mmol/L (98-107); Cholesterol 169 mg/dL (200); Creatinine, Serum 1.46 mg/dL (0.55-1.02); EST Glomerular Filtration Rate 36 mL/min (>60); Est Glom Filt Rate - Afr Amer 44 mL/min (>60); Estimated Creatinine Clearance 24.15 ml/min; Glucose 250 mg/dL (74-106); High Density Lipoprotein 59 mg/dL; Potassium 3.7 mmol/L (3.5-5.1); Sodium Level 137 mmol/L (136-145); Triglycerides 179 mg/dL; Very Low Density Lipoprotein 36 mg/dL (5-40)
--- NOTE | 2021-02-04 07:56 | PN.HOSP_ITS ---
Subjective Subjective Breathing well. Tolerating NC. Good urine output. Objective Data Objective Data Vital Signs: Vital Signs Temp Pulse Resp BP Pulse Ox 36.9 C 59 L 20 H 176/73 H 97 02/04/21 06:16 02/04/21 07:00 02/04/21 06:16 02/04/21 06:16 02/04/21 06:16 Oxygen Flow Rate (L/min) 2 Oxygen Delivery Method Nasal Cannula Weight: 72.575 kg Body Mass Index (BMI) 28.3 Intake & Output: Intake and Output for Last 24 Hours 02/02/21 02/03/21 02/04/21 23:59 23:59 23:59 Intake Total 440 / 440 300 / 300 Balance 440 / 440 300 / 300 Lab / Micro Data Result Diagrams: 02/04/21 06:10 02/04/21 06:10 Labs: Laboratory Results - last 24 hr 02/03/21 09:21: WBC 16.5 H, RBC 4.55, Hgb 14.0, Hct 41.4, MCV 91.0, MCH 30.8, MCHC 33.8, RDW Std Deviation 45.6 H, RDW Coeff of Laquita 13.6, Plt Count 225, MPV 11.3, Immature Gran % (Auto) 0.600, Neut % (Auto) 77.4 H, Lymph % (Auto) 12.1 L, [place] % (Auto) 8.9, Eos % (Auto) 0.7, Baso % (Auto) 0.3, Absolute Neuts (auto) 12.8 H, Absolute Lymphs (auto) 2.00, Nucleated RBC % 0 02/03/21 09:21: D-Dimer Quant (PE/DVT) 2.26 H* 02/03/21 09:21: Sodium 137, Potassium 4.1, Chloride 107, Carbon Dioxide 23.0, Anion Gap 7, BUN 35 H, Creatinine 1.59 H, Estim Creat Clear Calc 22.18, Est GFR (MDRD) Af Amer 40 L, Est GFR (MDRD) Non-Af 33 L, BUN/Creatinine Ratio 22.0 H, Glucose 320 H, Calcium 9.1, Total Bilirubin 0.50, AST 19, ALT 29, Alkaline Phosphatase 126 H, Troponin I High Sens 24, Total Protein 8.3 H, Albumin 3.6, Globulin 4.7 H, Albumin/Globulin Ratio 0.8 L 02/03/21 09:21: B-Natriuretic Peptide 654.8 H 02/03/21 13:24: Troponin I High Sens 23 02/03/21 15:03: Troponin I High Sens 21 02/03/21 21:06: POC Glucose 293 H 02/04/21 06:10: WBC 9.9, RBC 5.01, Hgb 14.6, Hct 45.1, MCV 90.0, MCH 29.1, MCHC 32.4, RDW Std Deviation 44.5 H, RDW Coeff of Laquita 13.5, Plt Count 246, MPV 11.6, Immature Gran % (Auto) 0.400, Neut % (Auto) 60.4, Lymph % (Auto) 28.0, [place] % (Auto) 9.2, Eos % (Auto) 1.5, Baso % (Auto) 0.5, Absolute Neuts (auto) 6.0, Absolute Lymphs (auto) 2.76, Nucleated RBC % 0 02/04/21 06:10: Sodium 137, Potassium 3.7, Chloride 102, Carbon Dioxide 27.0, Anion Gap 8, BUN 30 H, Creatinine 1.46 H, Estim Creat Clear Calc 24.15, Est GFR (MDRD) Af Amer 44 L, Est GFR (MDRD) Non-Af 36 L, BUN/Creatinine Ratio 20.5 H, Glucose 250 H, Calcium 9.3, Triglycerides 179, Cholesterol 169, LDL Cholesterol 74, VLDL Cholesterol 36, HDL Cholesterol 59 02/04/21 06:34: POC Glucose 227 H Micro: Microbiology 02/03/21 09:28 Nasal Secretion SARS-CoV-2 Antigen (Rapid) - Final Radiography Diagnostic Testing: Radiology Impression Chest X-Ray 02/03/21 09:24 IMPRESSION: No acute thoracic pathology. Electronically Signed: Kel Steel MD at 10:10 EST Tel , Service support , Chest CTA 02/03/21 09:58 IMPRESSION: No pulmonary embolus. No thoracic aortic aneurysm or dissection. Mild pulmonary vascular congestion. Trace bilateral pleural effusions with overlying atelectasis. Status post sternotomy and coronary artery bypass. Electronically Signed: Kel Steel MD at 10:40 EST Tel , Service support , Physical Exam Const alert and no apparent distress Resp normal respiratory effort, no retractions, no use of accessory muscles and clear to auscultation bilaterally Resp Narrative: RLL crackles. Cardio regular rate, regular rhythm, S1 normal heart sound and S2 normal heart sound GI normal to inspection, nondistended, normoactive bowel sounds, soft to palpation, non-tender and non-distended Extremity normal to inspection and no clubbing, cyanosis or edema Skin no rashes or lesions noted and no wounds Neuro Sensorium / Orientation: awake and alert Assessment & Plan Assessment/Plan (1) Acute respiratory failure with hypoxia: (2) (HFpEF) heart failure with preserved ejection fraction: QUALIFIERS: Heart failure chronicity: acute Qualified Code(s): I50.31 - Acute diastolic (congestive) heart failure PLAN: 1. acute hypoxic resp failure 2/2 CHF wean oxygen as able prior 6-minute walk was unremarkable prior PFTs negative check home oxygenation prior to discharge 2. Acute HFpEF EF 65% from echo on 12/28/2019 continue IV furosemide continue lisinopril recheck echo 3. DM2 insulin-dependent continue SSI, glargine hold metformin for CHF 4. VTE prophylaxis: LMWH 5. CODE status: DW pt, she wishes to be full code. Charges/Coding Visit Charges Inpatient E&M: 05367 Subs Hosp L2
[2021-02-04] MEDS: Enoxaparin 30 MG/0.3 ML Syringe SC (08:33)
[2021-02-04] MEDS: Lisinopril 20 MG Tablet PO (08:33)
[2021-02-04] MEDS: Furosemide 40 MG/4 ML Vial IV ×2 (08:33→19:52)
[2021-02-04] MEDS: Pantoprazole Sodium 40 MG Tablet PO (08:33)
[2021-02-04] MEDS: Metoprolol Tartrate 50 MG Tablet PO ×2 (08:34→21:16)
[2021-02-04] MEDS: Isosorbide Mononitrate 60 MG Tablet PO (08:34)
[2021-02-04] MEDS: DULoxetine Hcl 20 MG Capsule PO (08:34)
[2021-02-04] MEDS: Aspirin E.C. 81 MG Tablet PO (08:34)
[2021-02-04] MEDS: Gabapentin 300 MG Capsule PO ×2 (08:34→21:17)
[2021-02-04] MEDS: Tolterodine Tartrate 2 MG CAP.SA PO (08:34)
[2021-02-04] MEDS: amLODIPine 10 MG Tablet PO (08:34)
[2021-02-04] MEDS: Clopidogrel Bisulfate 75 MG Tablet PO (08:34)
[2021-02-04 11:30] LABS: Bedside Glucose 470 mg/dL (70-110)
[2021-02-04 16:40] LABS: Bedside Glucose 470 mg/dL (70-110)
[2021-02-04] MEDS: Insulin Lispro 100 UNIT/ML INSULN.PEN 15 UNIT SC (18:04)
[2021-02-04] MEDS: 0.9% Saline Lock 10 ML Syringe IV ×2 (18:05→19:52)
[2021-02-04] MEDS: Atorvastatin Calcium 40 MG Tablet PO (21:17)
[2021-02-04 21:25] LABS: Bedside Glucose 416 mg/dL (70-110)
[2021-02-05] VITALS (16 sets, daily range): BP systolic 128–156; BP diastolic 54–79; PULSE 58–92; RESP 16–20; TEMP 36.4–36.8; O2SAT 91–95
[2021-02-05] MEDS: hydrALAZINE 50 MG Tablet PO ×3 (06:32→20:36)
[2021-02-05] MEDS: Levothyroxine 50 MCG Tablet PO (06:32)
[2021-02-05] MEDS: Insulin Lispro 100 UNIT/ML INSULN.PEN SC ×2 (06:36→20:41)
[2021-02-05 06:45] LABS: Bedside Glucose 354 mg/dL (70-110)
[2021-02-05 07:20] LABS: Bedside Glucose > 500 mg/dL (70-110)
[2021-02-05 07:20] LABS: Bedside Glucose > 500 mg/dL (70-110)
[2021-02-05 07:56] LABS: Anion Gap 12 (5-15); BUN 49 mg/dL (7-18); BUN/Creat Ratio 27.7 RATIO (10-20); Calcium,Total 9.1 mg/dL (8.5-10.1); Chloride 99 mmol/L (98-107); Creatinine, Serum 1.77 mg/dL (0.55-1.02); EST Glomerular Filtration Rate 29 mL/min (>60); Est Glom Filt Rate - Afr Amer 35 mL/min (>60); Estimated Creatinine Clearance 19.92 ml/min; Glucose 383 mg/dL (74-106); Sodium Level 135 mmol/L (136-145)
[2021-02-05] MEDS: Aspirin E.C. 81 MG Tablet PO (08:03)
[2021-02-05] MEDS: Enoxaparin 30 MG/0.3 ML Syringe SC (09:12)
[2021-02-05] MEDS: Gabapentin 300 MG Capsule PO ×2 (09:12→20:36)
[2021-02-05] MEDS: amLODIPine 10 MG Tablet PO (09:12)
[2021-02-05] MEDS: Pantoprazole Sodium 40 MG Tablet PO (09:12)
[2021-02-05] MEDS: DULoxetine Hcl 20 MG Capsule PO (09:12)
[2021-02-05] MEDS: Cholecalciferol (VIT D3) 25 MCG TABLET (1,000 UNITS) PO (09:12)
[2021-02-05] MEDS: Lisinopril 20 MG Tablet PO (09:12)
[2021-02-05] MEDS: Tolterodine Tartrate 2 MG CAP.SA PO (09:12)
[2021-02-05] MEDS: Clopidogrel Bisulfate 75 MG Tablet PO (09:12)
[2021-02-05] MEDS: Isosorbide Mononitrate 60 MG Tablet PO (09:12)
[2021-02-05] MEDS: Furosemide 40 MG/4 ML Vial IV (09:16)
[2021-02-05] MEDS: Acetaminophen 325 MG Tablet 650 MG PO (10:23)
--- NOTE | 2021-02-05 10:36 | VDLE_ITS ---
Reason For Study: PAIN RIGHT LEFT GSV is normal. GSV is normal. CFV is compressible, spontaneous, phasic, CFV is compressible, spontaneous, phasic, competent and demonstrates normal competent, and demonstrates normal augmentation. augmentation. FV is compressible, spontaneous, phasic, FV is compressible, spontaneous, phasic, competent and demonstrates normal competent and demonstrates normal augmentation. augmentation. POP V is compressible, spontaneous, phasic, POP V is compressible, spontaneous, phasic, competent and demonstrates normal competent and demonstrates normal augmentation. augmentation. T/P Trunk is compressible. T/P Trunk is compressible. PTV is compressible. PTV is compressible. RT PerV is compressible. LT PerV is compressible. Procedure Exam performed portable in patient room. This is a venous duplex using B-mode, color flow and spectral Doppler. A preliminary report was called and/or faxed to [facility]. VL/Venous Duplex US - [place] Extrem Interpretation Summary Bilateral lower extremities with no evidence of DVT or SVT noted. Ordering Physician: Bam Henry Referring Physician: MARLIN SHAH Performed By: Annabel Bowie, CASI, RVT
--- NOTE | 2021-02-05 10:39 | EKG12_ITS ---
Test Reason : Blood Pressure : / mmHG Vent. Rate : 063 BPM Atrial Rate : 063 BPM P-R Int : 160 ms QRS Dur : 082 ms QT Int : 454 ms P-R-T Axes : 000 009 -04 degrees QTc Int : 464 ms Normal sinus rhythm Nonspecific T wave abnormality Abnormal ECG When compared with ECG of 03-FEB-2021 09:42, MANUAL COMPARISON REQUIRED, DATA IS UNCONFIRMED Confirmed by LAURA BENITEZ, CARRIE ([id number]), acquisitions editor KATHI TSE ([id number]) on 02/07/2021 9:39:16 AM Referred By: LILLIAN Confirmed By:CARRIE SANCHEZ MD
--- NOTE | 2021-02-05 10:59 | CASEMGMT ---
RUTHIE PINZON Assessment: Face to Face with pt for initial transition planning/care coordination assessment. RN ALBERTA introduced self and role at [facility], pt voices understanding and consents to assessment. Patient sitting up in bed, in no apparent distress. Pt is A/O x4 and answers all questions appropriately at this time. Care providers, pharmacy, and demographics verified/updated. Admitting Dx: CHF PCP: Fernando Kong Specialists: Moody- cardio, Phillip- pain management, Misha mccord, Renny- andreas Preferred Pharmacy: [facility] Insurance: [facility] Medicare Prescription Benefit: yes LW/HPOA: Patient denies having LW. Does believe she has a HPOA but unsure who. Patient made aware these forms are not on file with [facility] and may be brought in to be scanned into record. LNOK: - [place] Living Arrangements: Pt lives with in [address] [facility], no steps to enter the home. Patient reports independent with ADLs prior to hospitalization. Social: never smoker, denies ETOH use Transportation: Pt drives self and denies concerns with transportation. DME/HHC/SNF: Patient has raised toilet seat and grab bars in bathroom. Patient wears a CPAP at night (no oxygen), supplied by [employer]. Pt states no concerns with going home at time of dc. Pt states no further concerns/needs. CM to follow. Advised pt to ask CM if any further question/concerns/needs arise, voices understanding. Pt Goal: home Plan: home
[2021-02-05] MEDS: Insulin Lispro 100 UNIT/ML INSULN.PEN 20 UNIT SC (11:49)
[2021-02-05] MEDS: Nystatin Powder 15gm Bottle 1 APPLIC TOPICAL ×2 (11:49→20:42)
[2021-02-05 13:05] LABS: Bedside Glucose > 500 mg/dL (70-110)
--- NOTE | 2021-02-05 13:29 | CASEMGMT ---
Pt states concerns with per cpap mask and this RN CM to room. Pt does not have cpap here with her. This RN CM advised pt to call [facility], where she gets supplies to advise of adjustments needed for mask or possible new mask, voices understanding. SStcelina HENDRICKS CM
[2021-02-05 13:40] LABS: Bedside Glucose > 500 mg/dL (70-110)
[2021-02-05 13:40] LABS: Bedside Glucose > 500 mg/dL (70-110)
[2021-02-05 14:47] LABS: Glucose 605 mg/dL (74-106)
--- NOTE | 2021-02-05 15:39 | PN.HOSP_ITS ---
Documented by User: Bam CHICAS 02/05/21 15:51 Subjective Subjective Patient is an 85-year-old female comfortably resting in bed, alert and orient x3. Patient reports feeling weak and irritation with malodorous smell in her abdominal folds. Does not appear in acute distress. Objective Data Objective Data Vital Signs: Vital Signs Temp Pulse Resp BP Pulse Ox 97.5 F L 92 16 128/79 H 94 02/05/21 14:35 02/05/21 14:37 02/05/21 14:35 02/05/21 14:35 02/05/21 14:36 Oxygen Flow Rate (L/min) 2 Oxygen Delivery Method Room Air Weight: 160 lb Body Mass Index (BMI) 28.3 Intake & Output: Intake and Output for Last 24 Hours 02/03/21 02/04/21 02/05/21 23:59 23:59 23:59 Intake Total 440 / 440 1020 / 1320 900 / 900 Balance 440 / 440 1020 / 1320 900 / 900 Lab / Micro Data Result Diagrams: 02/04/21 06:10 02/05/21 14:19 Labs: Laboratory Results - last 24 hr 02/03/21 16:51: POC Glucose > 500 H* 02/03/21 16:53: POC Glucose > 500 H* 02/04/21 16:36: POC Glucose 470 H* 02/04/21 21:20: POC Glucose 416 H 02/05/21 06:21: Sodium 135 L, Potassium 4.0, Chloride 99, Carbon Dioxide 24.0, Anion Gap 12, BUN 49 H, Creatinine 1.77 H, Estim Creat Clear Calc 19.92, Est GFR (MDRD) Af Amer 35 L, Est GFR (MDRD) Non-Af 29 L, BUN/Creatinine Ratio 27.7 H, Glucose 383 H, Calcium 9.1 02/05/21 06:35: POC Glucose 354 H 02/05/21 11:17: POC Glucose > 500 H* 02/05/21 11:20: POC Glucose > 500 H* 02/05/21 13:03: POC Glucose > 500 H* 02/05/21 14:19: Glucose 605 H* Micro: Microbiology 02/03/21 09:28 Nasal Secretion SARS-CoV-2 Antigen (Rapid) - Final Radiography Diagnostic Testing: Radiology Impression Echocardiogram 02/03/21 12:38 Interpretation Summary Normal LV size. Left ventricular systolic function is normal. The estimated ejection fraction is 65 %. Stage 1 diastolic dysfunction. Ordering Physician: Yuriy Browning Referring Physician: Fernando Kong Performed By: Jenny Ley, CASI, RVT Physical Exam Const alert, oriented x3 and no apparent distress HEENT head/scalp atraumatic and moist oral mucous membranes Head and Scalp: normocephalic Eyes PERRL, EOMs intact bilaterally and conjunctivae normal Neck no lymphadenopathy, supple and no JVD Resp normal respiratory effort, no retractions, no use of accessory muscles and clear to auscultation bilaterally Cardio regular rate, regular rhythm, no murmurs and no JVD GI GI Narrative: Irritation and malodor present in the suprapubic abdominal folds Extremity normal to inspection, full ROM and no clubbing, cyanosis or edema Skin Skin Narrative: See GI. Neuro CN's II-XII intact bilaterally Psych affect normal Assessment & Plan Assessment/Plan (1) Acute respiratory failure with hypoxia: (2) (HFpEF) heart failure with preserved ejection fraction: QUALIFIERS: Heart failure chronicity: acute Qualified Code(s): I50.31 - Acute diastolic (congestive) heart failure (3) Intertrigo: PLAN: Day 2 Discharge planning: Current plan is for patient to discharge home when medically ready. 1) acute hypoxic respiratory failure secondary to acute on chronic HFpEF exacerbation Resolved. Patient currently satting 94% on room air and acute respiratory keeley lure seems to have resolved. Echocardiogram obtained and demonstrated normal LV size, normal LV systolic function, an estimated EF of 65% and stage I diastolic dysfunction. We will continue lisinopril, metoprolol and Lasix 40 mg p.o. daily. 2) acute hyperglycemia with a history of DM 2 Glucose noted to be elevated despite insulin administration, initially 383, currently 605. Hemoglobin A1c from November 2020 was 8.9. Basal insulin increased to 45 units twice daily and prandial insulin increased to 15 units 3 times daily. We will continue to monitor overnight for resolution/improvement of hyperglycemia, continue sliding scale. 3) intertrigo Patient with malodorous and irritated intertrigo in the suprapubic abdominal folds. Nystatin powder initiated twice daily. DVT prophylaxis - Lovenox Patient seen by Bam Henry PA-C, under the supervision of Dr. Rodriguez. Documented by User: Dr. Jose J Rodriguez, DO 02/05/21 20:21 Objective Data Lab / Micro Data Result Diagrams: 02/04/21 06:10 02/05/21 14:19 Charges/Coding Addendum Addendum: Patient was seen and examined tonight independently of Bam Henry, she is currently on room air and appears to be comfortable. During ambulation, she did not require supplemental O2. However, it was noted that the patient's blood sugars have not been under good control and I have decided to keep the patient here and adjust her insulin. On examination she appeared in good health and spirits, she does not appear to be in any distress. Vital signs as documented. Skin warm and dry and without overt rashes. Neck without JVD, thyroid appears normal, trachea is midline, neck is supple. Lungs clear, normal air movement was noted. Heart exam notable for regular rhythm, normal sounds and absence of murmurs, rubs or gallops. Abdomen unremarkable and without evidence of organomegaly, masses, or abdominal aortic enlargement, bowel sounds are present in all 4 quadrants, no abdominal tenderness was noted. Extremities nonedematous, no cyanosis was noted, no clubbing was noted. Neuro: Cranial nerves II through XII are grossly intact, no focal motor deficits were noted, sensation to light touch and pinprick is intact, motor exam 5/5 throughout. Psych: Patient is alert and oriented x3, she does not appear anxious or depressed, she does not appear agitated. I have reviewed Bam Henry's progress note including his medical assessment and plan of care and endorse it. Visit Charges Inpatient E&M: 66207 Subs Hosp L2
[2021-02-05 16:36] LABS: Bedside Glucose > 500 mg/dL (70-110)
[2021-02-05] MEDS: Insulin Lispro 100 UNIT/ML INSULN.PEN 15 UNIT SC (16:42)
[2021-02-05] MEDS: Furosemide 40 MG Tablet PO (16:48)
[2021-02-05] MEDS: Metoprolol Tartrate 50 MG Tablet PO (20:36)
[2021-02-05] MEDS: Atorvastatin Calcium 40 MG Tablet PO (20:37)
[2021-02-05 21:25] LABS: Bedside Glucose 416 mg/dL (70-110)
[2021-02-06] VITALS (11 sets, daily range): BP systolic 110–148; BP diastolic 45–63; PULSE 50–68; RESP 16–17; TEMP 36.6–36.7; O2SAT 92–95
[2021-02-06] MEDS: Levothyroxine 50 MCG Tablet PO (04:24)
[2021-02-06] MEDS: hydrALAZINE 50 MG Tablet PO ×2 (06:26→13:16)
[2021-02-06] MEDS: Insulin Lispro 100 UNIT/ML INSULN.PEN SC ×2 (07:36→11:30)
[2021-02-06] MEDS: Aspirin E.C. 81 MG Tablet PO (07:36)
[2021-02-06] MEDS: Insulin Lispro 100 UNIT/ML INSULN.PEN 15 UNIT SC ×2 (07:36→11:30)
[2021-02-06 07:40] LABS: Bedside Glucose 412 mg/dL (70-110)
[2021-02-06 08:42] LABS: Anion Gap 12 (5-15); BUN 55 mg/dL (7-18); BUN/Creat Ratio 31.1 RATIO (10-20); Calcium,Total 9.2 mg/dL (8.5-10.1); Chloride 98 mmol/L (98-107); Creatinine, Serum 1.77 mg/dL (0.55-1.02); EST Glomerular Filtration Rate 29 mL/min (>60); Est Glom Filt Rate - Afr Amer 35 mL/min (>60); Estimated Creatinine Clearance 19.92 ml/min; Glucose 425 mg/dL (74-106); Potassium 3.9 mmol/L (3.5-5.1); Sodium Level 131 mmol/L (136-145)
[2021-02-06] MEDS: Nystatin Powder 15gm Bottle 1 APPLIC TOPICAL (09:55)
[2021-02-06] MEDS: Clopidogrel Bisulfate 75 MG Tablet PO (09:56)
[2021-02-06] MEDS: DULoxetine Hcl 20 MG Capsule PO (09:56)
[2021-02-06] MEDS: amLODIPine 10 MG Tablet PO (09:56)
[2021-02-06] MEDS: Pantoprazole Sodium 40 MG Tablet PO (09:56)
[2021-02-06] MEDS: Tolterodine Tartrate 2 MG CAP.SA PO (09:56)
[2021-02-06] MEDS: Metoprolol Tartrate 50 MG Tablet PO (09:56)
[2021-02-06] MEDS: Lisinopril 20 MG Tablet PO (09:56)
[2021-02-06] MEDS: Gabapentin 300 MG Capsule PO (09:56)
[2021-02-06] MEDS: Isosorbide Mononitrate 60 MG Tablet PO (09:56)
[2021-02-06] MEDS: Furosemide 40 MG Tablet PO (09:56)
[2021-02-06] MEDS: Enoxaparin 30 MG/0.3 ML Syringe SC (09:56)
--- NOTE | 2021-02-06 11:39 | PCM.DC ---
Discharge Instructions Diet Discharge Diet: No restrictions Activity Discharge Activity: Return to Normal Activity Weight Bearing Status: Weight bearing as tolerated Dressing / Incision Call your doctor if you observe: Fever of 101 or Higher, Numbness or Tingling, Shortness of breath, Dizziness, Chest pain, Increased palpitations (irregular heartbeat) and Calf discomfort Follow Up Care Please Follow Up With: Primary care provider When: Within the next two weeks. Test Results: Test results from this visit will be discussed in further detail at your follow-up appointment, if applicable. Discharge Plan Admission Admit Date/Time: 02/03/21 12:03 Primary Reason for Your Visit: Shortness of breath Attending Provider: Jose J Rodriguez Primary Care Provider: Fernando Kong Discharge Orders/Prescriptions Prescriptions: New insulin lispro [Humalog KwikPen Insulin] 100 unit/mL Insulin Pen 15 unit subcut TIDAC Qty: 20 RF: 0 Lantus Solostar U-100 Insulin 100 unit/mL (3 mL) Insulin Pen 45 units subcut 1100,2200 Qty: 30 RF: 0 nystatin 100,000 unit/gram powder 1 applic topical BID PRN (Reason: Intertrigo) Qty: 30 RF: 0 Continued gabapentin 300 mg capsule 300 mg PO BID RF: 0 aspirin [Adult Low Dose Aspirin] 81 mg tablet,delayed release (DR/EC) 81 mg PO DAILY RF: 0 cholecalciferol (vitamin D3) 25 mcg (1,000 unit) capsule 25 mcg PO QODAY RF: 0 levothyroxine 50 mcg tablet 50 mcg PO DAILY RF: 0 atorvastatin 40 mg tablet 40 mg PO QHS RF: 0 isosorbide mononitrate 30 mg tablet extended release 24 hr 60 mg PO DAILY Qty: 90 RF: 3 lansoprazole 30 mg capsule,delayed release(DR/EC) 30 mg PO DAILY RF: 0 lisinopril 20 mg tablet 20 mg PO DAILY RF: 0 metformin 500 mg tablet extended release 24 hr 1,000 mg PO BID RF: 0 metoprolol tartrate 50 mg tablet 50 mg PO BID RF: 0 insulin lispro [Humalog KwikPen Insulin] 100 unit/mL insulin pen See Rx Instructions subcut TID RF: 0 hydralazine 50 MG tablet 50 mg PO TID RF: 0 duloxetine 20 MG capsule 20 mg PO DAILY RF: 0 oxybutynin chloride 10 MG tablet extended release 24hr 10 mg PO DAILY RF: 0 diphenhydramine-acetaminophen 1 EACH tablet 2 tab PO QHS RF: 0 nitroglycerin 0.4 mg tablet, sublingual 0.4 mg SUBLINGUAL Q5M PRN (Reason: chest pain) Qty: 25 RF: 3 amlodipine 10 mg tablet 10 mg PO DAILY Qty: 90 RF: 3 clopidogrel 75 mg tablet 75 mg PO DAILY Qty: 90 RF: 3 Discontinued insulin glargine 100 unit/mL solution 33 unit subcut BREAKFAST RF: 0 Referrals / Follow Up: Fernando Kong MD [Primary Care Provider] - Within 2 Weeks Raudel Angel MD [STAFF PHYSICIAN] - See Referral Note (Proceed with your already scheduled appointment with Andres Angel to establish care. ) Disposition Disposition (needs filled in before D/C Order can be placed): Home, Self Care
[2021-02-06 11:41] LABS: Bedside Glucose 349 mg/dL (70-110)
--- NOTE | 2021-02-06 11:59 | CASEMGMT ---
Per oxygen qualification from yesterday, pt does not qualify for any home oxygen at discharge. Pt voices no further questions/concerns/needs. John HENDRICKS CM
--- NOTE | 2021-02-06 14:59 | DS.PCM_ITS ---
Documented by User: Bam CHICAS 02/06/21 15:11 Providers Date of Admission: 02/03/21 Date of Discharge: 02/06/21 Primary Care Physician: Dr. Fernando Kong MD Reason For Visit: CHF Diagnosis Discharge Diagnosis (1) Acute respiratory failure with hypoxia: Status: Acute Code(s): J96.01 - Acute respiratory failure with hypoxia (2) (HFpEF) heart failure with preserved ejection fraction: Status: Acute Code(s): I50.30 - Unspecified diastolic (congestive) heart failure Qualifiers: Heart failure chronicity: acute Qualified Code(s): I50.31 - Acute diastolic (congestive) heart failure (3) Intertrigo: Status: Acute Code(s): L30.4 - Erythema intertrigo Medications at Discharge Home Medications duloxetine 20 mg PO DAILY 12/20/18 hydralazine 50 mg PO TID 12/20/18 aspirin 81 mg tablet,delayed release 81 mg PO DAILY 01/01/19 gabapentin 300 mg capsule 300 mg PO BID 01/01/19 diphenhydramine-acetaminophen 2 tab PO QHS 03/23/19 oxybutynin chloride 10 mg PO DAILY 03/23/19 cholecalciferol (vitamin D3) 25 mcg (1,000 unit) capsule 25 mcg PO QODAY cap 07/28/19 nitroglycerin 0.4 mg sublingual tablet 0.4 mg SUBLINGUAL Q5M PRN #25 tab 09/28/19 amlodipine 10 mg tablet 10 mg PO DAILY #90 tab 03/03/20 atorvastatin 40 mg tablet 40 mg PO QHS 05/10/20 levothyroxine 50 mcg tablet 50 mcg PO DAILY 05/10/20 lansoprazole 30 mg capsule,delayed release 30 mg PO DAILY 12/08/20 lisinopril 20 mg tablet 20 mg PO DAILY 12/08/20 isosorbide mononitrate 30 mg tablet,extended release 24 hr 60 mg PO DAILY #90 tab 12/14/20 clopidogrel 75 mg tablet 75 mg PO DAILY #90 tab 01/01/21 insulin lispro 100 unit/mL subcutaneous pen See Rx Instructions SUBCUT TID ml 01/25/21 metformin 500 mg tablet,extended release 24 hr 1,000 mg PO BID tab 01/25/21 metoprolol tartrate 50 mg tablet 50 mg PO BID tab 12/16/21 furosemide [Lasix] 40 mg PO DAILY #30 tab 02/06/21 insulin glargine [Lantus Solostar U-100 Insulin] 45 units SUBCUT 1100,2200 #30 ml 02/06/21 insulin lispro [Humalog KwikPen Insulin] 15 unit SUBCUT TIDAC #20 ml 02/06/21 nystatin 1 applic TOPICAL BID PRN #30 g 02/06/21 Hospital Course Procedures 2-D Echocardiogram and Transthoracic echo Summary of Care Provided Minutes Spent on Discharge: 35 Hospital Course: Disposition: Patient to discharge home. 1) acute hypoxic respiratory failure secondary to acute on chronic HFpEF exacerbation Resolved. Patient currently satting 94% on room air and acute respiratory failure seems to have resolved. Echocardiogram obtained and demonstrated normal LV size, normal LV systolic function, an estimated EF of 65% and stage I diastolic dysfunction. We will continue lisinopril, metoprolol and Lasix 40 mg p.o. daily on discharge. 2) acute hyperglycemia with a history of DM 2 Improved with adjustment of basal and prandial insulin. Hemoglobin A1c from November 2020 was 8.9. Patient basal insulin increased to 45 units twice daily and prandial insulin was increased to 15 units 3 times daily on discharge. Patient is to establish care with dyed raw stock blower feeder, Andres Angel, in early February of 2021. 3) intertrigo Patient with malodorous and irritated intertrigo in the suprapubic abdominal folds. Improved with nystatin powder. Nystatin powder provided on discharge. Patient seen by Bam Henry PA-C, under the supervision of Dr. Rodriguez. Physical Exam Narrative Patient is an 85-year-old female comfortably resting in bed, alert and orient x3. Patient reports significant improvement in her intertrigo in the super pubic abdominal folds. Patient reports that shortness of breath has resolved from admission. Denies development of any new symptoms overnight. Does not appear in acute distress. Const alert, oriented x3 and no apparent distress HEENT normocephalic, head/scalp atraumatic and hearing grossly normal bilaterally Eyes PERRL, EOMs intact bilaterally and conjunctivae normal Neck no lymphadenopathy, supple and no JVD Resp normal respiratory effort, no retractions, no use of accessory muscles and clear to auscultation bilaterally Cardio regular rate, regular rhythm, no murmurs and no JVD GI normal to inspection, nondistended, normoactive bowel sounds, soft to palpation and non-tender Extremity normal to inspection, full ROM and no clubbing, cyanosis or edema Skin no rashes or lesions noted, no wounds and skin turgor normal Neuro CN's II-XII intact bilaterally Psych affect normal Weight / BMI Weight Weight: 159 lb 13.362 oz Body Mass Index (BMI) 28.3 ABG / Lab / Microbiology Data Result Diagrams: 02/04/21 06:10 02/06/21 08:10 Laboratory: Laboratory Results - last 24 hr 02/05/21 16:31: POC Glucose > 500 H* 02/05/21 20:39: POC Glucose 416 H 02/06/21 07:34: POC Glucose 412 H 02/06/21 08:10: Sodium 131 L, Potassium 3.9, Chloride 98, Carbon Dioxide 21.0, Anion Gap 12, BUN 55 H, Creatinine 1.77 H, Estim Creat Clear Calc 19.92, Est GFR (MDRD) Af Amer 35 L, Est GFR (MDRD) Non-Af 29 L, BUN/Creatinine Ratio 31.1 H, Glucose 425 H, Calcium 9.2 02/06/21 11:29: POC Glucose 349 H Microbiology: Microbiology 02/03/21 09:28 Nasal Secretion SARS-CoV-2 Antigen (Rapid) - Final D/C Instructions Discharge Diet: No restrictions Weight Bearing Status: Weight bearing as tolerated Call your doctor if you observe: Fever of 101 or Higher, Numbness or Tingling, Shortness of breath, Dizziness, Chest pain, Increased palpitations (irregular heartbeat) and Calf discomfort Please Follow Up With: Primary care provider When: Within the next two weeks. Meaningful Use Info Meaningful Use Diagnoses (Choose all that apply): CHF CHF FANG/ARB ordered at discharge?: Yes Documented LVEF (%): 65 Discharge Plan Admission Admit Date/Time: 02/03/21 12:03 Primary Reason for Your Visit: Shortness of breath Attending Provider: Jose J Rodriguez Primary Care Provider: Fernando Kong Discharge Orders/Prescriptions Prescriptions: New insulin lispro [Humalog KwikPen Insulin] 100 unit/mL Insulin Pen 15 unit subcut TIDAC Qty: 20 RF: 0 Lantus Solostar U-100 Insulin 100 unit/mL (3 mL) Insulin Pen 45 units subcut 1100,2200 Qty: 30 RF: 0 nystatin 100,000 unit/gram powder 1 applic topical BID PRN (Reason: Intertrigo) Qty: 30 RF: 0 furosemide [Lasix] 40 mg tablet 40 mg PO DAILY Qty: 30 RF: 0 Continued gabapentin 300 mg capsule 300 mg PO BID RF: 0 aspirin [Adult Low Dose Aspirin] 81 mg tablet,delayed release (DR/EC) 81 mg PO DAILY RF: 0 cholecalciferol (vitamin D3) 25 mcg (1,000 unit) capsule 25 mcg PO QODAY RF: 0 levothyroxine 50 mcg tablet 50 mcg PO DAILY RF: 0 atorvastatin 40 mg tablet 40 mg PO QHS RF: 0 isosorbide mononitrate 30 mg tablet extended release 24 hr 60 mg PO DAILY Qty: 90 RF: 3 lansoprazole 30 mg capsule,delayed release(DR/EC) 30 mg PO DAILY RF: 0 lisinopril 20 mg tablet 20 mg PO DAILY RF: 0 metformin 500 mg tablet extended release 24 hr 1,000 mg PO BID RF: 0 metoprolol tartrate 50 mg tablet 50 mg PO BID RF: 0 insulin lispro [Humalog KwikPen Insulin] 100 unit/mL insulin pen See Rx Instructions subcut TID RF: 0 hydralazine 50 MG tablet 50 mg PO TID RF: 0 duloxetine 20 MG capsule 20 mg PO DAILY RF: 0 oxybutynin chloride 10 MG tablet extended release 24hr 10 mg PO DAILY RF: 0 diphenhydramine-acetaminophen 1 EACH tablet 2 tab PO QHS RF: 0 nitroglycerin 0.4 mg tablet, sublingual 0.4 mg SUBLINGUAL Q5M PRN (Reason: chest pain) Qty: 25 RF: 3 amlodipine 10 mg tablet 10 mg PO DAILY Qty: 90 RF: 3 clopidogrel 75 mg tablet 75 mg PO DAILY Qty: 90 RF: 3 Discontinued insulin glargine 100 unit/mL solution 33 unit subcut BREAKFAST RF: 0 Referrals / Follow Up: Fernando Kong MD [Primary Care Provider] - 02/14/21 9:20 am Raudel Angel MD [STAFF PHYSICIAN] - See Referral Note (Proceed with your already scheduled appointment with Andres Angel to establish care. ) Disposition Disposition (needs filled in before D/C Order can be placed): Home, Self Care Documented by User: Dr. Jose J Rodriguez, DO 02/06/21 17:30 Providers Date of Admission: 02/03/21 Reason For Visit: CHF Medications at Discharge Home Medications duloxetine 20 mg PO DAILY 12/20/18 hydralazine 50 mg PO TID 12/20/18 aspirin 81 mg tablet,delayed release 81 mg PO DAILY 01/01/19 gabapentin 300 mg capsule 300 mg PO BID 01/01/19 diphenhydramine-acetaminophen 2 tab PO QHS 03/23/19 oxybutynin chloride 10 mg PO DAILY 03/23/19 cholecalciferol (vitamin D3) 25 mcg (1,000 unit) capsule 25 mcg PO QODAY cap 07/28/19 nitroglycerin 0.4 mg sublingual tablet 0.4 mg SUBLINGUAL Q5M PRN #25 tab 09/28/19 amlodipine 10 mg tablet 10 mg PO DAILY #90 tab 03/03/20 atorvastatin 40 mg tablet 40 mg PO QHS 05/10/20 levothyroxine 50 mcg tablet 50 mcg PO DAILY 05/10/20 lansoprazole 30 mg capsule,delayed release 30 mg PO DAILY 12/08/20 lisinopril 20 mg tablet 20 mg PO DAILY 12/08/20 isosorbide mononitrate 30 mg tablet,extended release 24 hr 60 mg PO DAILY #90 tab 12/14/20 clopidogrel 75 mg tablet 75 mg PO DAILY #90 tab 01/01/21 insulin lispro 100 unit/mL subcutaneous pen See Rx Instructions SUBCUT TID ml 01/25/21 metformin 500 mg tablet,extended release 24 hr 1,000 mg PO BID tab 01/25/21 metoprolol tartrate 50 mg tablet 50 mg PO BID tab 01/25/21 furosemide [Lasix] 40 mg PO DAILY #30 tab 02/06/21 insulin glargine [Lantus Solostar U-100 Insulin] 45 units SUBCUT 1100,2200 #30 ml 02/06/21 insulin lispro [Humalog KwikPen Insulin] 15 unit SUBCUT TIDAC #20 ml 02/06/21 nystatin 1 applic TOPICAL BID PRN #30 g 02/06/21 ABG / Lab / Microbiology Data Result Diagrams: 02/04/21 06:10 02/06/21 08:10 Discharge Plan Admission Admit Date/Time: 02/03/21 12:03 Primary Reason for Your Visit: Shortness of breath Attending Provider: Jose J Rodriguez Primary Care Provider: Fernando Kong Discharge Orders/Prescriptions Prescriptions: New insulin lispro [Humalog KwikPen Insulin] 100 unit/mL Insulin Pen 15 unit subcut TIDAC Qty: 20 RF: 0 Lantus Solostar U-100 Insulin 100 unit/mL (3 mL) Insulin Pen 45 units subcut 1100,2200 Qty: 30 RF: 0 nystatin 100,000 unit/gram powder 1 applic topical BID PRN (Reason: Intertrigo) Qty: 30 RF: 0 furosemide [Lasix] 40 mg tablet 40 mg PO DAILY Qty: 30 RF: 0 Continued gabapentin 300 mg capsule 300 mg PO BID RF: 0 aspirin [Adult Low Dose Aspirin] 81 mg tablet,delayed release (DR/EC) 81 mg PO DAILY RF: 0 cholecalciferol (vitamin D3) 25 mcg (1,000 unit) capsule 25 mcg PO QODAY RF: 0 levothyroxine 50 mcg tablet 50 mcg PO DAILY RF: 0 atorvastatin 40 mg tablet 40 mg PO QHS RF: 0 isosorbide mononitrate 30 mg tablet extended release 24 hr 60 mg PO DAILY Qty: 90 RF: 3 lansoprazole 30 mg capsule,delayed release(DR/EC) 30 mg PO DAILY RF: 0 lisinopril 20 mg tablet 20 mg PO DAILY RF: 0 metformin 500 mg tablet extended release 24 hr 1,000 mg PO BID RF: 0 metoprolol tartrate 50 mg tablet 50 mg PO BID RF: 0 insulin lispro [Humalog KwikPen Insulin] 100 unit/mL insulin pen See Rx Instructions subcut TID RF: 0 hydralazine 50 MG tablet 50 mg PO TID RF: 0 duloxetine 20 MG capsule 20 mg PO DAILY RF: 0 oxybutynin chloride 10 MG tablet extended release 24hr 10 mg PO DAILY RF: 0 diphenhydramine-acetaminophen 1 EACH tablet 2 tab PO QHS RF: 0 nitroglycerin 0.4 mg tablet, sublingual 0.4 mg SUBLINGUAL Q5M PRN (Reason: chest pain) Qty: 25 RF: 3 amlodipine 10 mg tablet 10 mg PO DAILY Qty: 90 RF: 3 clopidogrel 75 mg tablet 75 mg PO DAILY Qty: 90 RF: 3 Discontinued insulin glargine 100 unit/mL solution 33 unit subcut BREAKFAST RF: 0 Referrals / Follow Up: Fernando Kong MD [Primary Care Provider] - 02/14/21 9:20 am Raudel Angel MD [STAFF PHYSICIAN] - See Referral Note (Proceed with your already scheduled appointment with Andres Angel to establish care. ) Disposition Disposition (needs filled in before D/C Order can be placed): Home, Self Care Charges/Coding Addendum Addendum: Patient was seen and examined independently of Bam Henry, her blood sugars are somewhat better today but they are still elevated. Her insulin will be adjusted at the time of discharge, patient states she has an upcoming visit with her dyed raw stock blower feeder early in February of next year. On examination she appeared in good health and spirits, she does not appear to be in any distress. Vital signs as documented. Skin warm and dry and without overt rashes. Neck without JVD, thyroid appears normal, trachea is midline, neck is supple. Lungs clear, normal air movement was noted. Heart exam notable for regular rhythm, normal sounds and absence of murmurs, rubs or gallops. Abdomen unremarkable and without evidence of organomegaly, masses, or abdominal aortic enlargement, bowel sounds are present in all 4 quadrants, no abdominal tenderness was noted. Extremities nonedematous, no cyanosis was noted, no clubbing was noted. Neuro: Cranial nerves II through XII are grossly intact, no focal motor deficits were noted, sensation to light touch and pinprick is intact, motor exam 5/5 throughout. Psych: Patient is alert and oriented x3, she does not appear anxious or depressed, she does not appear agitated. Patient appears stable for discharge at this time, I have reviewed Bam Henry's discharge summary including his medical assessment and plan of care and endorse it. Visit Charges Inpatient E&M: [id number] Disch Hosp
== END 2021-02-06 15:20 | disposition home or self-care (01) | DRG 291 ==
LOC: ED 11:16 → PCU 12:07
PROVIDERS: Physician Assistant; Emergency Provider Emergency Medicine; PCP Family Medicine; Visit Provider Internal Medicine
DX: I13.0 Hypertensive heart and chronic kidney disease with heart failure and stage 1 through stage 4 chronic kidney disease, or unspecified chronic kidney disease (principal); J96.01 Acute respiratory failure with hypoxia; I50.33 Acute on chronic diastolic (congestive) heart failure; N17.9 Acute kidney failure, unspecified; E11.65 Type 2 diabetes mellitus with hyperglycemia; L30.4 Erythema intertrigo; E11.22 Type 2 diabetes mellitus with diabetic chronic kidney disease; K21.9 Gastro-esophageal reflux disease without esophagitis; I25.10 Atherosclerotic heart disease of native coronary artery without angina pectoris; E78.00 Pure hypercholesterolemia, unspecified; G47.33 Obstructive sleep apnea (adult) (pediatric); N18.32 Chronic kidney disease, stage 3b; Z79.4 Long term (current) use of insulin; Z86.73 Personal history of transient ischemic attack (TIA), and cerebral infarction without residual deficits; Z79.82 Long term (current) use of aspirin; Z79.84 Long term (current) use of oral hypoglycemic drugs; Z79.890 Hormone replacement therapy; Z80.3 Family history of malignant neoplasm of breast; Z82.49 Family history of ischemic heart disease and other diseases of the circulatory system; Z90.710 Acquired absence of both cervix and uterus; Z91.040 Latex allergy status; Z95.1 Presence of aortocoronary bypass graft; Z95.5 Presence of coronary angioplasty implant and graft; Z96.651 Presence of right artificial knee joint; T50.2X5A Adverse effect of carbonic-anhydrase inhibitors, benzothiadiazides and other diuretics, initial encounter
CPT/HCPCS: 36415; 71045; 71275; 80048; 80053; 80061; 82947; 82962; 83880; 84484; 85025; 85379; 87426; 93005; 93306; 93970; 94640; 97802; 99284; Q9957; Q9967; A4216; J1940

== ENCOUNTER 2021-05-24 13:55 | Outpatient (CLI) | payer MEDICARE, SELFPAY ==
[2018-12-11 13:27] VITALS: BMI 28.7
[2021-05-24 15:25] LABS: BNP,B-Type NATRIURETIC PEPTIDE 83.5 pg/mL (0-100)
[2021-05-24 15:28] LABS: ALB/GLOB Ratio 0.9 RATIO (0.9-2.4); AST(SGOT) 17 U/L (15-37); Alanine Aminotransfer ALT/SGPT 26 U/L (13-56); Alkaline Phosphatase 126 U/L (45-117); Anion Gap 11 (5-15); BUN 42 mg/dL (7-18); BUN/Creat Ratio 24.4 RATIO (10-20); Calcium,Total 9.8 mg/dL (8.5-10.1); Chloride 103 mmol/L (98-107); Creatinine, Serum 1.72 mg/dL (0.55-1.02); EST Glomerular Filtration Rate 30 mL/min (>60); Est Glom Filt Rate - Afr Amer 36 mL/min (>60); Globulin 4.7 g/dL (2.2-4.2); Glucose 200 mg/dL (74-106); Potassium 3.7 mmol/L (3.5-5.1); Protein, Total 8.7 g/dL (6.4-8.2); Sodium Level 137 mmol/L (136-145)
== END 2021-05-24 23:59 | disposition home or self-care (01) ==
LOC: BIMLAB 13:56
PROVIDERS: PCP Family Medicine; Referring Provider Nurse Practitioner Family; Visit Provider Nurse Practitioner Family
DX: R06.02 Shortness of breath (principal); N18.32 Chronic kidney disease, stage 3b
CPT/HCPCS: 36415; 80053; 83880

== ENCOUNTER 2021-06-16 17:17 | Emergency (ER) | payer MEDICARE, SELFPAY ==
[2018-12-11 13:27] VITALS: BMI 28.7
[2021-06-16 17:17] VITALS: BP 112/77; PULSE 82; RESP 16; TEMP 36.8; O2SAT 95; BMI 28.7
--- NOTE | 2021-06-16 17:44 | EKG12_ITS ---
Test Reason : GI BLEED Blood Pressure : / mmHG Vent. Rate : 079 BPM Atrial Rate : 079 BPM P-R Int : 208 ms QRS Dur : 076 ms QT Int : 406 ms P-R-T Axes : 053 008 088 degrees QTc Int : 465 ms Normal sinus rhythm Normal ECG Confirmed by LAURA BENITEZ, CARRIE ([id number]), publishing editor KATHI TSE ([id number]) on 06/18/2021 1:29:44 PM Referred By: BB Confirmed By:CARRIE SANCHEZ MD
--- NOTE | 2021-06-16 17:44 | RAD_ITS ---
STUDY: AP PORTABLE UPRIGHT CHEST X-RAY OF 1816 HOURS ON 06/16/2021 REASON FOR EXAM: 85-year-old with dyspnea. TECHNIQUE: A single view portable AP upright chest x-ray was performed per protocol. COMPARISON: 02/03/2021. FINDINGS: Mild demineralization. Previous sternal thoracotomy. Mild cardiomegaly with a left ventricular cardiac configuration and borderline heart failure. No confluent infiltrates, atelectasis, effusion, pulmonary mass lesions. Elevated right hemidiaphragm. Less heart failure than was present on the previous study of 02/03/2021. RAD/Chest 1 View (Portable) IMPRESSION: 1. Mild cardiomegaly with a left ventricular cardiac configuration and borderline heart failure. 2. No other active cardiopulmonary disease. 3. Elevated right hemidiaphragm. 4. Mild demineralization. Electronically Signed: Geo Chow MD at 18:47 EDT ,
--- NOTE | 2021-06-16 17:44 | ED.VIS.GI ---
HPI HPI - GI History of Present Illness Chief Complaint: GI Bleed Informant: patient and spouse/S.O. Abdominal Pain/Flank Pain Onset: Today Narrative Narrative: Patient states around 5.5 hours ago, she started feeling poorly with nausea and dyspnea. No vomiting, no chest discomfort, some lower abdominal pain for about 30 or 60 minutes that she does not feel so much now. Then just before coming here, she had a bowel movement with a lot of bright red blood in it. She denies any palpitations, presyncope, or syncope. No recent swelling in her legs. No recent illness. After confirming that her dyspnea started 5 hours ago at the same time as her nausea, the interjects that she has been short of breath for a long time, like over a year. The patient does not provide any other details regarding this but states she has never been diagnosed with any lung disorders, but she does have a history of heart disease for which she had a CABG for. [facility] Medical History (Updated 06/16/21 @ 21:[address] Nikolai Salgado MD) (HFpEF) heart failure with preserved ejection fraction Angina pectoris Atherosclerotic heart disease of [place] coronary artery without angina pectoris CAD (coronary artery disease) Carotid stenosis, left Chest pain Chronic renal failure, stage 3 (moderate) Coronary artery disease CPAP (continuous positive airway pressure) dependence Debility Diabetes Diabetes mellitus, type 2 Dyspnea on exertion Edema Essential hypertension Fatigue Fibromyalgia GERD (gastroesophageal reflux disease) History of stroke Hypothyroidism Intertrigo Lumbosacral radiculopathy Microalbuminuria Non-smoker Obstructive sleep apnea Other intermission coordinator (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 Presence of stent in coronary artery (~12/11/18) Pure hypercholesterolemia Renal cancer Shortness of breath Sleep apnea Stroke/cerebrovascular accident TIA (transient ischemic attack) Home Medications duloxetine 20 mg PO DAILY 12/20/18 [History Last Taken 08/10/19] hydralazine 50 mg PO TID 12/20/18 [History Last Taken 09/17/19 05:30] aspirin 81 mg tablet,delayed release 81 mg PO DAILY 01/01/19 [History Last Taken 08/10/19] gabapentin 300 mg capsule 300 mg PO BID 01/01/19 [History Last Taken 03/23/19] diphenhydramine-acetaminophen 2 tab PO QHS 03/23/19 [History Last Taken 03/22/19] oxybutynin chloride 10 mg PO DAILY 03/23/19 [History Last Taken 03/23/19] cholecalciferol (vitamin D3) 25 mcg (1,000 unit) capsule 25 mcg PO QODAY cap 07/28/19 [History Last Taken Unknown] nitroglycerin 0.4 mg sublingual tablet 0.4 mg SUBLINGUAL Q5M PRN #25 tab 09/28/19 [Rx Last Taken Unknown] atorvastatin 40 mg tablet 40 mg PO QHS 05/10/20 [History Last Taken Unknown] levothyroxine 50 mcg tablet 50 mcg PO DAILY 05/10/20 [History Last Taken Unknown] lansoprazole 30 mg capsule,delayed release 30 mg PO DAILY 12/08/20 [History Last Taken Unknown] clopidogrel 75 mg tablet 75 mg PO DAILY #90 tab 01/01/21 [Rx Last Taken Unknown] insulin lispro 100 unit/mL subcutaneous pen See Rx Instructions SUBCUT TID ml 01/25/21 [History Last Taken Unknown] metoprolol tartrate 50 mg tablet 50 mg PO BID tab 01/25/21 [History Last Taken Unknown] nystatin 1 applic TOPICAL BID PRN #30 g 02/06/21 [Rx Last Taken Unknown] ranolazine 500 mg tablet,extended release,12 hr 500 mg PO BID #180 tab 02/28/21 [Rx Last Taken Unknown] insulin lispro 100 unit/mL subcutaneous pen 15 unit SUBCUT TIDAC #15 ml MDD 50 03/09/21 [Rx Last Taken Unknown] furosemide 40 mg tablet 40 mg PO .COMPLEX #180 tab 04/04/21 [Rx Last Taken Unknown] diphenhydramine 25 mg-acetaminophen 500 mg tablet 2 tab PO QHS PRN tab 05/24/21 [History Last Taken Unknown] isosorbide mononitrate 60 mg tablet,extended release 24 hr 60 mg PO DAILY #90 tab 06/12/21 [Rx Last Taken Unknown] Lantus Solostar U-100 Insulin 46 units SUBCUT DAILY 06/16/21 [History Last Taken Unknown] amlodipine 10 mg PO DAILY 06/16/21 [History Last Taken Unknown] Allergy/AdvReac Type Severity Reaction Status Date / Time latex Allergy Rash Verified 06/16/21 17:19 adhesive tape AdvReac Rash Verified 06/16/21 17:19 ticagrelor [From Brilinta] AdvReac Shortness Verified 06/16/21 17:19 of breath Family History Father Heart disease Mother Breast cancer Diabetes Heart disease Surgical History (Updated 06/16/21 @ 17:58 by Loida Gaspar) H/O hemorrhoidectomy History of appendectomy History of back surgery History of cholecystectomy History of coronary artery bypass graft x 3 (~04/08/16) History of coronary artery stent placement History of hysterectomy History of knee replacement procedure of right knee History of right and left heart catheterization (LHC) (~08/10/19) History of right inguinal hernia repair Hx of CABG Postlaminectomy syndrome of lumbar region Presence of coronary angioplasty implant and graft (~12/11/18) Social History Smoking Status: Never smoker alcohol intake: never caffeine: No ROS ROS ED Constitutional Constitutional ED: Denies chills or fever(s) Eyes Eyes: Denies change in vision or diplopia ENT ENT ED: Denies rhinorrhea or sore throat Cardiovascular Cardiovascular: Denies chest pain or palpitations Respiratory/Chest Respiratory/Chest: Reports as per HPI, dyspnea and other Details: Chronic dyspnea with exertion ; Denies cough Gastrointestinal Gastrointestinal: Reports as per HPI, abdominal pain, nausea and rectal bleeding; Denies diarrhea, melena or vomiting Genitourinary Genitourinary ED: Denies dysuria or hematuria Musculoskeletal Musculoskeletal: Denies back pain or neck pain Integumentary Denies abscess or rash Neurologic Neurologic: Denies headache(s), paresthesias or weakness Psychiatric Psychiatric: Denies anxiety or suicidal thoughts EXAM Physical Exam Const Vital Signs: 06/16/21 17:17 06/16/21 19:07 06/16/21 19:27 Temperature 98.2 F 98.2 F Temperature Source Temporal Temporal Pulse Rate 82 79 80 Respiratory Rate 16 20 H Blood Pressure 112/77 169/91 H 168/76 H Blood Pressure Mean 88 117 106 Pulse Ox 95 92 Oxygen Delivery Method Room Air Nasal Cannula Oxygen Flow Rate (L/min) 2 Positive well nourished and well developed General Appearance ED: well developed and NAD HEENT Reports moist mucous membranes normocephalic and atraumatic Eyes PERRL and EOMs intact bilaterally Neck full ROM, No nuchal rigidity, no lymphadenopathy, supple and no meningeal signs Resp normal respiratory effort and clear to auscultation bilaterally Resp Narrative: Mildly tachypneic without distress/retractions Effort and Inspection: able to speak in complete sentences Cardio regular rate, regular rhythm and no murmurs GI non-distended GI Narrative: Mild tenderness across lower abdomen without guarding or rebound. No distention. Nontender throughout her upper abdomen. Auscultation: normoactive bowel sounds Palpation: soft Back/Spine no CVA tenderness General Back: other FROM Extremity normal to inspection General Extremety ED: Negative for edema, pulses abnormal or tenderness General Extremity: Negative for edema or pulses abnormal Neuro oriented x3, CN's II-XII intact bilaterally and no sensory deficits noted Sensorium / Orientation: awake and alert Motor Exam: strength 5/5 throughout Skin no rashes or lesions noted and no wounds MDM MDM MDM Narrative Medical decision making narrative: Patient is on aspirin and clopidogrel. No anticoagulants. Looking through her records, there is no history of colonoscopy or a CT of her abdomen/pelvis to see if she has a history of diverticulosis or not. Therefore especially since she was having lower abdominal pain, CT was performed. Given her renal function we did without contrast. It does not show any diverticulosis or diverticulitis or any other acute abnormality, it shows an enteritis-type pattern, which is nonspecific. The patient has not been having diarrhea lately, rather she states that she had pure blood at home and it was a lot. I did a rectal exam on her here, there is no gross blood at all, just some light brown stool and no tenderness, no hemorrhoids, no abscess. She is not anticoagulated but she is on dual antiplatelet therapy. Although her hemoglobin is 15.9 on the measurement, and she has a nonspecific leukocytosis at 18.2 for unclear reasons, her chemistries appear to show mild dehydration and hemoconcentration. She was given some IV fluid after her BNP came back at 50.8, her troponin is normal, her EKG is unremarkable, and her chest x-ray 1 view on my interpretation appeared to show some mild cephalization and radiology was in agreement without any other acute abnormalities, but since her BNP is so low and normal, I do not think she is in any type of acute failure. Her pulse ox was borderline here. states that is normal for her, she usually flows between 90-91% on room air and uses CPAP at night so she feels better at night but dyspnea with exertion is the norm for her. We took her oxygen off at the nurses put her on and ambulated her. She was down to 86-87% but did not get more dyspneic than usual. We gave her an albuterol treatment, after that she was at 93-94% and stayed there and felt better. Again she wants to go home, I think that is okay at this time. She did have another bowel movement here in the emergency department at that point, 2 very small blood clots came out and no other significant amount of bleeding. I would advise holding her Plavix for the next 3 days and I will have her follow-up with GI, we discussed reasons to return she is comfortable with all of that. Lab Data Attestation: I reviewed the patient's lab results. Labs: Laboratory Results - last 24 hr 06/16/21 06/16/21 06/16/21 18:25 18:25 18:25 WBC 18.2 H RBC 5.17 Hgb 15.9 H Hct 47.0 MCV 90.9 MCH 30.8 MCHC 33.8 RDW Std Deviation 45.9 H RDW Coeff of Laquita 13.7 Plt Count 268 MPV 11.5 Immature Gran % (Auto) 0.400 Neut % (Auto) 83.9 H Lymph % (Auto) 9.3 L [place] % (Auto) 5.9 Eos % (Auto) 0.2 Baso % (Auto) 0.3 Absolute Neuts (auto) 15.3 H Absolute Lymphs (auto) 1.70 Nucleated RBC % 0 Sodium 151 H Potassium 6.2 H* Chloride 116 H Carbon Dioxide 23.0 Anion Gap 12 BUN 28 H Creatinine 1.69 H Estim Creat Clear Calc 20.86 Est GFR (MDRD) Af Amer 37 L Est GFR (MDRD) Non-Af 31 L BUN/Creatinine Ratio 16.6 Glucose 269 H Calcium 9.1 Troponin I High Sens 12 B-Natriuretic Peptide 50.8 POC Glucose 06/16/21 06/16/21 19:45 20:18 WBC RBC Hgb Hct MCV MCH MCHC RDW Std Deviation RDW Coeff of [place] Plt Count MPV Immature Gran % (Auto) Neut % (Auto) Lymph % (Auto) [place] % (Auto) Eos % (Auto) Baso % (Auto) Absolute Neuts (auto) Absolute Lymphs (auto) Nucleated RBC % Sodium Potassium 3.1 L Chloride Carbon Dioxide Anion Gap BUN Creatinine Estim Creat Clear Calc Est GFR (MDRD) Af Amer Est GFR (MDRD) Non-Af BUN/Creatinine Ratio Glucose Calcium Troponin I High Sens B-Natriuretic Peptide POC Glucose 264 H Radiography Diagnostic Testing: Clinical Impression(s) from Imaging Studies Chest X-Ray 06/16/21 17:44 IMPRESSION: 1. Mild cardiomegaly with a left ventricular cardiac configuration and borderline heart failure. 2. No other active cardiopulmonary disease. 3. Elevated right hemidiaphragm. 4. Mild demineralization. Electronically Signed: Geo Chow MD at 18:47 EDT , Abdomen/Pelvis CT 06/16/21 18:23 IMPRESSION: Multiple fluid-filled small bowel loops, nonspecific finding which should be seen with acute enteritis. No definite additional acute finding in the abdomen and pelvis on this unenhanced study. Electronically Signed: Damon Bullock MD at 19:49 EDT , EKG Initial EKG: Attestation: I personally reviewed and interpreted this EKG as follows: Interpretation: Sinus Rhythm and No Acute Injury Pattern Comments: Normal EKG Prior EKG tracings: available for review Prior: Unchanged Discharge Plan Triage Chief Complaint: GI Bleed ED Provider: Nikolai Salgado Dx/Rx/DC Orders Clinical Impression: Rectal bleeding, Chronic renal insufficiency, VILLATORO (dyspnea on exertion) Instructions: ED Lower GI Bleeding (Stable) Prescriptions: Continued gabapentin 300 mg capsule 300 mg PO BID RF: 0 aspirin [Adult Low Dose Aspirin] 81 mg tablet,delayed release (DR/EC) 81 mg PO DAILY RF: 0 cholecalciferol (vitamin D3) 25 mcg (1,000 unit) capsule 25 mcg PO QODAY RF: 0 levothyroxine 50 mcg tablet 50 mcg PO DAILY RF: 0 atorvastatin 40 mg tablet 40 mg PO QHS RF: 0 lansoprazole 30 mg capsule,delayed release(DR/EC) 30 mg PO DAILY RF: 0 metoprolol tartrate 50 mg tablet 50 mg PO BID RF: 0 insulin lispro [Humalog KwikPen Insulin] 100 unit/mL insulin pen See Rx Instructions subcut TID RF: 0 diphenhydramine-acetaminophen [Tylenol PM Extra Strength] 25-500 mg tablet 2 tab PO QHS PRN (Reason: Insomnia) RF: 0 hydralazine 50 MG tablet 50 mg PO TID RF: 0 duloxetine 20 MG capsule 20 mg PO DAILY RF: 0 oxybutynin chloride 10 MG tablet extended release 24hr 10 mg PO DAILY RF: 0 diphenhydramine-acetaminophen 1 EACH tablet 2 tab PO QHS RF: 0 nystatin 100,000 unit/gram powder 1 applic topical BID PRN (Reason: Intertrigo) Qty: 30 RF: 0 amlodipine 10 mg tablet 10 mg PO DAILY RF: 0 Lantus Solostar U-100 Insulin 100 unit/mL (3 mL) insulin pen 46 units subcut DAILY RF: 0 nitroglycerin 0.4 mg tablet, sublingual 0.4 mg SUBLINGUAL Q5M PRN (Reason: chest pain) Qty: 25 RF: 3 ranolazine 500 mg tablet extended release 12 hr 500 mg PO BID Qty: 180 RF: 3 insulin lispro [Humalog KwikPen Insulin] 100 unit/mL insulin pen 15 unit subcut TIDAC MDD 50 Qty: 15 RF: 4 furosemide [Lasix] 40 mg tablet 40 mg PO .COMPLEX Qty: 180 RF: 3 isosorbide mononitrate 60 mg tablet extended release 24 hr 60 mg PO DAILY Qty: 90 RF: 3 Held clopidogrel 75 mg tablet 75 mg PO DAILY Qty: 90 RF: 3 Hold Instructions: Resume on 06/20/21. Hold for 3 days as long as your bleeding is stopped, you may then resume Primary Care Provider: Fernando Kong Referrals: Elier Brown DO [STAFF PHYSICIAN] - As soon as possible Fernando Kong MD [Primary Care Provider] - (This coming week if you cannot get into see Dr. Brown soon) Disposition Disposition: Home, Self Care
--- NOTE | 2021-06-16 17:48 | ED.RN ---
PT 92 % ON ROOM AIR. O2 PLACED AT 2.5 LITERS. PT TO 95 %
[2021-06-16] MEDS: Ondansetron 4 MG/2 ML Vial IV (18:16)
[2021-06-16] MEDS: 0.9% Normal Saline 1,000 ML 125 ML IV (18:16)
--- NOTE | 2021-06-16 18:23 | CT_ITS ---
STUDY: CT ABDOMEN AND PELVIS WITHOUT CONTRAST REASON FOR EXAM: Female, 85 years old. lower abd pain, rectal bleeding RADIATION DOSAGE (If Supplied By Facility): CTDIvol = ( 11.57 ) mGy, DLP = ( 560.90 ) mGycm TECHNIQUE: Transaxial images were obtained from the dome of the diaphragm to the symphysis pubis without oral contrast, and without intravenous contrast. Sagittal and coronal images were reconstructed. Individualized dose optimization techniques were used for this CT. COMPARISON: 05/08/2017 FINDINGS: Mild bibasilar dependent atelectasis. Coronary artery calcifications noted. Calcified hepatic and splenic granulomas. No organomegaly. Status post cholecystectomy. Fatty infiltration throughout the pancreas. Interval decrease in size of the cystic lesion in the pancreatic body, currently measuring up to 1.1 cm compared to 1.6 and on the prior study. This is compatible with benignity. An approximately 2.3 cm stable rim calcified lesion arising from the anterolateral cortex of the right kidney, benign. A 2.5 cm left renal cyst. No radiopaque urolithiasis or hydroureteronephrosis on either side. Prior partial colectomy and anastomosis. Bowel loops nonobstructed. Multiple fluid-filled small bowel loops, nonspecific finding which can be seen with acute enteritis. No CT evidence of acute appendicitis. No free air or free fluid. No adenopathy. Marked vascular constipation. No abdominal aortic aneurysm. Status post ventral abdominal wall hernia repair. Sections through the pelvis demonstrate evidence of prior hysterectomy. No adnexal mass. Urinary bladder grossly unremarkable. Diffuse osteopenia. Status post L3-L5 posterior pedicle screw fusion. Osteoarthritis of the bilateral hip joints. CT/Abdomen/Pelvis without Cont IMPRESSION: Multiple fluid-filled small bowel loops, nonspecific finding which should be seen with acute enteritis. No definite additional acute finding in the abdomen and pelvis on this unenhanced study. Electronically Signed: Damon Bullock MD at 19:49 EDT ,
[2021-06-16 18:28] LABS: Absolute Neutrophil Count 15.3 X10^3/uL (2.0-7.7); Basophil# 0.05 X10^3/uL; Basophil% 0.3 % (0-1); Eosinophil# 0.04 X10^3/uL; Eosinophils% 0.2 % (0-5); Hemoglobin 15.9 g/dL (12.0-15.0); Lymphocyte % 9.3 % (19-41); Mean Corp Hgb Conc 33.8 g/dL (32-36); Mean Corpuscular Hgb 30.8 pg (27.0-32.0); Mean Corpuscular Volume 90.9 fL (81-99); Mean Platelet Vol. 11.5 fl (6.2-12.0); Monocyte# 1.07 X10^3/uL; Monocyte% 5.9 % (0-10); NRBC Flagged by Analyzer 0 % (0-5); Neutrophil # 15.25 X10^3/uL (2.7-7.7); Neutrophil % 83.9 % (47-70); Platelet Count 268 K/mm3 (150-450); RBC Distribution Width CV 13.7 % (11.6-14.6); RBC Distribution Width SD 45.9 fl (35.1-43.9); Red Blood Count 5.17 M/mm3 (4.2-5.4); White Blood Count 18.2 K/mm3 (4.4-11.0)
[2021-06-16 18:54] LABS: BNP,B-Type NATRIURETIC PEPTIDE 50.8 pg/mL (0-100)
[2021-06-16 18:59] LABS: BUN 28 mg/dL (7-18); BUN/Creat Ratio 16.6 RATIO (10-20); Calcium,Total 9.1 mg/dL (8.5-10.1); Chloride 116 mmol/L (98-107); Creatinine, Serum 1.69 mg/dL (0.55-1.02); Estimated Creatinine Clearance 20.86 ml/min; Glucose 269 mg/dL (74-106); Sodium Level 151 mmol/L (136-145); Troponin-I HS 12 pg/mL (3.0-54.0)
[2021-06-16 19:00] LABS: Anion Gap 12 (5-15)
[2021-06-16 19:07] VITALS: BP 169/91; PULSE 79
[2021-06-16 19:07] LABS: EST Glomerular Filtration Rate 31 mL/min (>60); Est Glom Filt Rate - Afr Amer 37 mL/min (>60); Potassium 6.2 mmol/L (3.5-5.1)
[2021-06-16 19:27] VITALS: BP 168/76; PULSE 80; RESP 20; TEMP 36.8; O2SAT 90; O2SAT 92
[2021-06-16 20:09] LABS: Potassium 3.1 mmol/L (3.5-5.1)
[2021-06-16 20:26] LABS: Bedside Glucose 264 mg/dL (74-106)
[2021-06-16 21:21] VITALS: PULSE 88; RESP 18
[2021-06-16] MEDS: Albuterol 2.5 MG/3 ML VIAL.NEB. INHALATION (21:21)
[2021-06-16 21:26] VITALS: O2SAT 88
[2021-06-16 21:50] VITALS: O2SAT 94
== END 2021-06-16 21:50 | disposition home or self-care (01) ==
PROVIDERS: Emergency Provider Emergency Medicine; PCP Family Medicine; Visit Provider Emergency Medicine
DX: K62.5 Hemorrhage of anus and rectum (principal); I13.0 Hypertensive heart and chronic kidney disease with heart failure and stage 1 through stage 4 chronic kidney disease, or unspecified chronic kidney disease; I50.9 Heart failure, unspecified; E11.22 Type 2 diabetes mellitus with diabetic chronic kidney disease; N18.30 Chronic kidney disease, stage 3 unspecified; E78.00 Pure hypercholesterolemia, unspecified; I25.10 Atherosclerotic heart disease of native coronary artery without angina pectoris; E86.0 Dehydration; R06.00 Dyspnea, unspecified; K21.9 Gastro-esophageal reflux disease without esophagitis; Z86.73 Personal history of transient ischemic attack (TIA), and cerebral infarction without residual deficits; Z95.5 Presence of coronary angioplasty implant and graft; G47.33 Obstructive sleep apnea (adult) (pediatric)
CPT/HCPCS: 36415; 71045; 74176; 80048; 82962; 83880; 84132; 84484; 85025; 93005; 94640; 96361; 96374; 99284; J7030; A4216; J2405

== ENCOUNTER 2021-07-02 11:58 | Emergency (ER) | payer MEDICARE, SELFPAY ==
[2021-06-18 13:40] VITALS: BMI 28.7
[2021-07-02 12:00] VITALS: BP 167/65; PULSE 63; RESP 18; TEMP 36.4; O2SAT 93; BMI 28.8
--- NOTE | 2021-07-02 12:16 | CT_ITS ---
EXAM: CT CERVICAL SPINE WITHOUT INTRAVENOUS CONTRAST CLINICAL INDICATION: Injury/Pain TECHNIQUE: Helically acquired images were obtained of the cervical spine without intravenous contrast. 2D reformatted images were reviewed. This CT exam was performed using one or more of the following dose reduction techniques: automated exposure control, adjustment of the mA and/or kV according to patient size, and/or use of iterative reconstruction technique. This report was created using [employer] report generation technology. COMPARISON: 10/23/2011 FINDINGS: VERTEBRAE: Unremarkable. No fracture. No traumatic subluxation. No discrete lytic or blastic abnormality. Normal alignment. Normal craniocervical junction and cervicothoracic junction. DISCS/SPINAL CANAL/NEURAL FORAMINA: Multilevel disc space narrowing and facet arthropathy. Narrowing of the right C6-7 and left C4-5 neural foramina related to uncinate joint hypertrophy. SOFT TISSUES: Unremarkable. No prevertebral soft tissue swelling. LYMPH NODES: Unremarkable. No cervical adenopathy. LUNG APICES: Unremarkable as visualized. Clear. CT/Spine Cervical without Contras IMPRESSION: 1. No acute abnormality. 2. Diffuse spondylosis. Electronically Signed: Tonny Breen MD at 13:15 EDT ,
--- NOTE | 2021-07-02 12:16 | CT_ITS ---
EXAM: CT HEAD WITHOUT INTRAVENOUS CONTRAST CLINICAL INDICATION: Injury/Pain TECHNIQUE: Multiple axial images were obtained of the head without intravenous contrast. This CT exam was performed using one or more of the following dose reduction techniques: automated exposure control, adjustment of the mA and/or kV according to patient size, and/or use of iterative reconstruction technique. This report was created using [employer] report generation technology. COMPARISON: 06/14/2020 FINDINGS: BRAIN AND EXTRA-AXIAL SPACES: Areas of diminished white matter density noted within both cerebral hemispheres suggestive of chronic microvascular change. Prominence of the cortical sulci and ventricles consistent with volume loss change. No intra- or extra-axial hemorrhage. No evidence of acute infarct. No intracranial mass or mass effect. There is preservation of the [place]/white matter interface. Posterior fossa structures are unremarkable. Basal cisterns are patent. BONES/JOINTS: Unremarkable. No discrete lytic or blastic abnormalities. SINUSES: Unremarkable as visualized. Clear. MASTOID AIR CELLS: Minimal opacification of the left mastoid sinus. ORBITS: Visualized globes, extraocular muscles, optic nerves and retrobulbar fat appear unremarkable. CT/Brain/Head without Contrast IMPRESSION: 1. No acute intracranial abnormality. 2. Stable chronic microvascular changes. Electronically Signed: Tonny Breen MD at 13:08 EDT ,
--- NOTE | 2021-07-02 12:17 | EDS_ITS ---
HPI HPI - Fall History of Present Illness Chief Complaint: Fall Informant: patient and spouse/S.O. Narrative Narrative: Patient is an 85-year-old female presenting after mechanical fall. Patient states she was watering plants in her garden when she turned around a gram of the house and lost her balance and fell. She landed on her driveway which is cement concrete. She did land on her left side and hit the left side of her head. She does not report a loss of consciousness. A neighbor had to help her get up. Patient denies any numbness or tingling. She does take aspirin and Plavix on a daily basis. She is biggest complaint/pain is her arm pain. Did not take anything for pain prior to arrival. States she was in her normal state of health this morning. Her notes that she is been slightly more unstable for the past 6 months or so. Patient is not interested in rehab or admission unless absolutely necessary. She lives at home with her . She states they do not have any stairs at their house. [facility] Medical History (HFpEF) heart failure with preserved ejection fraction Angina pectoris Atherosclerotic heart disease of [place] coronary artery without angina pectoris CAD (coronary artery disease) Carotid stenosis, left Chest pain Chronic renal failure, stage 3 (moderate) Coronary artery disease CPAP (continuous positive airway pressure) dependence Debility Diabetes Diabetes mellitus, type 2 Dyspnea on exertion Edema Essential hypertension Fatigue Fibromyalgia GERD (gastroesophageal reflux disease) History of stroke Hypothyroidism Intertrigo Lumbosacral radiculopathy Microalbuminuria Non-smoker Obstructive sleep apnea Other group home (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 Presence of stent in coronary artery (~12/11/18) Pure hypercholesterolemia Renal cancer Shortness of breath Sleep apnea Stroke/cerebrovascular accident TIA (transient ischemic attack) Home Medications duloxetine 20 mg PO DAILY 12/20/18 [History Last Taken 08/10/19] hydralazine 50 mg PO TID 12/20/18 [History Last Taken 09/17/19 05:30] aspirin 81 mg tablet,delayed release 81 mg PO DAILY 01/01/19 [History Last Taken 08/10/19] gabapentin 300 mg capsule 300 mg PO BID 01/01/19 [History Last Taken 03/23/19] oxybutynin chloride 10 mg PO DAILY 03/23/19 [History Last Taken 03/23/19] nitroglycerin 0.4 mg sublingual tablet 0.4 mg SUBLINGUAL Q5M PRN #25 tab 09/28/19 [Rx Last Taken Unknown] atorvastatin 40 mg tablet 40 mg PO QHS 05/10/20 [History Last Taken Unknown] levothyroxine 50 mcg tablet 50 mcg PO DAILY 05/10/20 [History Last Taken Unknown] lansoprazole 30 mg capsule,delayed release 30 mg PO DAILY 12/08/20 [History Last Taken Unknown] clopidogrel 75 mg tablet 75 mg PO DAILY #90 tab 01/01/21 [Rx Last Taken Unknown] diphenhydramine 25 mg-acetaminophen 500 mg tablet 2 tab PO QHS PRN tab 05/24/21 [History Last Taken Unknown] isosorbide mononitrate 60 mg tablet,extended release 24 hr 60 mg PO DAILY #90 tab 06/12/21 [Rx Last Taken Unknown] amlodipine 10 mg PO DAILY 06/16/21 [History Last Taken Unknown] cholecalciferol (vitamin D3) 25 mcg (1,000 unit) capsule 25 mcg PO 2XW cap 06/20/21 [History Last Taken Unknown] furosemide 40 mg tablet 40 mg PO BID tab 06/20/21 [History Last Taken Unknown] insulin glargine 100 unit/mL (3 mL) subcutaneous pen 72 unit SUBCUT QPM ml 06/20/21 [History Last Taken Unknown] lisinopril 20 mg tablet 20 mg PO DAILY 06/20/21 [History Last Taken Unknown] metoprolol tartrate 50 mg tablet 25 mg PO BID tab 06/20/21 [History Last Taken Unknown] ranolazine 500 mg tablet,extended release,12 hr 500 mg PO BID PRN tab 06/20/21 [History Last Taken Unknown] insulin lispro 100 unit/mL subcutaneous pen 35 unit SUBCUT TID #31.5 ml 06/25/21 [Rx Last Taken Unknown] hydrocodone-acetaminophen 1 tab PO Q6H PRN 3 Days #12 tab 07/02/21 [Rx Last Taken Unknown] Allergy/AdvReac Type Severity Reaction Status Date / Time latex Allergy Rash Verified 07/02/21 12:02 adhesive tape AdvReac Rash Verified 07/02/21 12:02 ticagrelor [From Brilinta] AdvReac Shortness Verified 07/02/21 12:02 of breath Family History Father Heart disease Mother Breast cancer Diabetes Heart disease Surgical History H/O hemorrhoidectomy History of appendectomy History of back surgery History of cholecystectomy History of coronary artery bypass graft x 3 (~04/08/16) History of coronary artery stent placement History of hysterectomy History of knee replacement procedure of right knee History of right and left heart catheterization (LHC) (~08/10/19) History of right inguinal hernia repair Hx of CABG Postlaminectomy syndrome of lumbar region Presence of coronary angioplasty implant and graft (~12/11/18) Social History Smoking Status: Never smoker alcohol intake: never substance use type: does not use caffeine: No ROS ROS ED Constitutional Constitutional ED: Denies chills or fever(s) Eyes Eyes: Denies blurry vision or change in vision ENT ENT ED: Denies ear pain or rhinorrhea Cardiovascular Cardiovascular: Denies chest pain Respiratory/Chest Respiratory/Chest: Denies dyspnea Gastrointestinal Gastrointestinal: Denies abdominal pain or vomiting Musculoskeletal Musculoskeletal: Reports other Details: left arm/elbow pain ; Denies myalgias Integumentary Denies Abrasions or rash Neurologic Neurologic: Reports headache(s); Denies paresthesias or weakness Psychiatric Psychiatric: Denies depression Hematologic/Lymphatic Hematologic/Lymphatic: Reports easy bleeding and easy bruising EXAM Physical Exam Const Vital Signs: 07/02/21 12:00 07/02/21 12:07 07/02/21 14:01 Temperature 97.6 F L Temperature Source Temporal Pulse Rate 63 Respiratory Rate 18 Respiratory Effort Normal Non-Labored Blood Pressure 167/65 H Blood Pressure Mean 99 Pulse Ox 93 96 Oxygen Delivery Method Room Air Room Air Room Air 07/02/21 14:58 Temperature Temperature Source Pulse Rate Respiratory Rate Respiratory Effort Blood Pressure 148/69 H Blood Pressure Mean Pulse Ox 96 Oxygen Delivery Method Positive well nourished and well developed General Appearance ED: well developed HEENT Reports normocephalic HEENT Narrative: Patient is small area of erythema over her left zygomatic process. No abrasion appreciated. Normal right panic membrane. There is cerumen impaction of the left ear canal. Negative for hematoma Eyes PERRL and EOMs intact bilaterally Neck full ROM and supple General: Negative for tenderness Chest Wall inspection of chest normal Resp normal respiratory effort and clear to auscultation bilaterally Cardio regular rate, regular rhythm and no murmurs Cardio Narrative: 2+ radial pulses GI non-tender and non-distended Palpation: soft Back/Spine Cervical Spine: Negative for cervical spine tenderness Thoracic Spine / Upper Back: Negative for pain with ROM Extremity normal capillary refill and no joint enlargement Extremity Narrative: Patient has significant pain of the left elbow most pronounced at the radial head. No obvious joint effusion present. Not able to range of motion at the elbow secondary to pain. Patient also has pain to palpation of the midshaft and distal humerus. No pinpoint tenderness of the shoulder however difficult to evaluate range of motion secondary to more distal pain. 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 Pelvis is stable. No pain with logroll of either leg. No rotational deformity of the lower extremities. Neuro oriented x3, CN's II-XII intact bilaterally, moves all extremities, no focal motor deficits and no sensory deficits noted Sensorium / Orientation: alert Psych mental status grossly normal Skin Lesions: no lesions Rashes: no rashes MDM MDM MDM Narrative Medical decision making narrative: For mechanical fall. She landed on her left side. She complained of significant left elbow pain. She has a normal neurologic exam. Given her advanced age I did obtain a CT and C-spine which did not show any acute process. X-ray of the humerus and elbow did not show an acute fracture however she does have a small elbow joint effusion. There is no clear anterior fat pad however I am concerned about an occult radial head fracture given her pain and injury. Patient was placed in a sling and given Ortho for outpatient follow-up. Encouraged on gentle but early range of motion. Patient does require morphine and then IV Dilaudid for pain control. On repeat evaluation she is improved. She is ambulate in the ER to ensure stability. She be discharged home with a short course of Franklin. Is counseled on the risk of confusion and falls. Patient and verbalized agreement understanding with this. Encouraged to just take ibuprofen or Tylenol if possible for pain and counseled to not mix Tylenol with the Franklin as there is already Tylenol in it. Counseled to take daily MiraLAX while taking the Franklin to prevent opioid- induced constipation. Patient and verbalizes agreement with this plan. Patient discharged home in stable condition. X-ray of the elbow and humerus interpreted by myself as well as radiology. No acute fracture however joint effusion is noted. I spoke with patient's pain management doctor, Dr. Vergara, who is agreeable with plan of care to start her on Franklin for pain control. OARRS does not show an active prescription. Radiography Diagnostic Testing: Clinical Impression(s) from Imaging Studies Brain CT 07/02/21 12:16 IMPRESSION: 1. No acute intracranial abnormality. 2. Stable chronic microvascular changes. Electronically Signed: Tonny Breen MD at 13:08 EDT , Cervical Spine CT 07/02/21 12:16 IMPRESSION: 1. No acute abnormality. 2. Diffuse spondylosis. Electronically Signed: Tonny Breen MD at 13:15 EDT , Elbow X-Ray 07/02/21 12:58 IMPRESSION: Small elbow joint effusion. Electronically Signed: Tonny Breen MD at 13:39 EDT , Humerus X-Ray 07/02/21 12:58 IMPRESSION: No acute abnormality. Electronically Signed: Tonny Breen MD at 13:39 EDT , Discharge Plan Triage Chief Complaint: Fall Other Complaint: Upper Extremity Injury ED Provider: Hortencia Prado Dx/Rx/DC Orders Clinical Impression: Fall on same level from tripping, Closed head injury, Contusion of elbow, left, Effusion of left elbow Instructions: ED Contusion, Elbow, ED Head Injury (Adult), ED Fall Prevention Prescriptions: New hydrocodone-acetaminophen 5-325 mg tablet 1 tab PO Q6H PRN (Reason: pain) 3 Days Qty: 12 RF: 0 No Action gabapentin 300 mg capsule 300 mg PO BID RF: 0 aspirin [Adult Low Dose Aspirin] 81 mg tablet,delayed release (DR/EC) 81 mg PO DAILY RF: 0 cholecalciferol (vitamin D3) 25 mcg (1,000 unit) capsule 25 mcg PO 2XW RF: 0 levothyroxine 50 mcg tablet 50 mcg PO DAILY RF: 0 atorvastatin 40 mg tablet 40 mg PO QHS RF: 0 lansoprazole 30 mg capsule,delayed release(DR/EC) 30 mg PO DAILY RF: 0 diphenhydramine-acetaminophen [Tylenol PM Extra Strength] 25-500 mg tablet 2 tab PO QHS PRN (Reason: Insomnia) RF: 0 lisinopril 20 mg tablet 20 mg PO DAILY RF: 0 furosemide [Lasix] 40 mg tablet 40 mg PO BID RF: 0 ranolazine 500 mg tablet extended release 12 hr 500 mg PO BID PRNRF: 0 metoprolol tartrate 50 mg tablet 25 mg PO BID RF: 0 hydralazine 50 MG tablet 50 mg PO TID RF: 0 duloxetine 20 MG capsule 20 mg PO DAILY RF: 0 oxybutynin chloride 10 MG tablet extended release 24hr 10 mg PO DAILY RF: 0 amlodipine 10 mg tablet 10 mg PO DAILY RF: 0 Lantus Solostar U-100 Insulin 100 unit/mL (3 mL) insulin pen 72 unit subcut QPM RF: 0 nitroglycerin 0.4 mg tablet, sublingual 0.4 mg SUBLINGUAL Q5M PRN (Reason: chest pain) Qty: 25 RF: 3 clopidogrel 75 mg tablet 75 mg PO DAILY Qty: 90 RF: 3 Hold Instructions: ?GI Bleed, until Eval. by GI isosorbide mononitrate 60 mg tablet extended release 24 hr 60 mg PO DAILY Qty: 90 RF: 3 insulin lispro [Humalog KwikPen Insulin] 100 unit/mL insulin pen 35 unit subcut TID Qty: 31.5 RF: 6 Primary Care Provider: Fernando Kong Referrals: Torrey Davis MD [STAFF PHYSICIAN] - (7-10 days for recheck and repeat x ray ) Fernando Kong MD [Primary Care Provider] - Activity Restrictions/Additional Instructions: Wear sling for comfort. When the pain starts to improve it is important to move your elbow around. Take daily MiraLAX with pain meds to help prevent associated constipation. Please follow-up with orthopedics. Is possible that you could have a small elbow fracture that did not show up on x-ray today and a repeat x- ray will be needed in 7 to 10 days especially if you are not improving. Elevate your arm and ice is much as possible Disposition Disposition: Home, Self Care Discharge Date/Time: 07/02/21 15:03
[2021-07-02] MEDS: Morphine 4 MG/ML Syringe IV (12:34)
--- NOTE | 2021-07-02 12:58 | RAD_ITS ---
EXAM: XR LEFT ELBOW COMPLETE, 3 OR MORE VIEWS CLINICAL INDICATION: Injury/Pain TECHNIQUE: Frontal, lateral and oblique views of the left elbow. This report was created using [employer] report generation technology. COMPARISON: None. FINDINGS: BONES/JOINTS: Small joint effusion displaces the fat pads. No acute fracture. No subluxation. Normal alignment. No destructive or sclerotic lesions. SOFT TISSUES: Unremarkable. No soft tissue swelling or gas. No radiopaque foreign body. RAD/Elbow min 3 Views IMPRESSION: Small elbow joint effusion. Electronically Signed: Tonny Breen MD at 13:39 EDT ,
--- NOTE | 2021-07-02 12:58 | RAD_ITS ---
EXAM: XR LEFT HUMERUS, 2 OR MORE VIEWS CLINICAL INDICATION: Injury/Pain TECHNIQUE: Frontal and lateral views of the left humerus. This report was created using [employer] report generation technology. COMPARISON: None. FINDINGS: BONES/JOINTS: Unremarkable. No acute fracture. No subluxation. Normal alignment. Preservation of the joint space. No sclerotic or destructive changes observed. SOFT TISSUES: Unremarkable. No soft tissue swelling or gas. No radiopaque foreign body. RAD/Humerus min 2 Views IMPRESSION: No acute abnormality. Electronically Signed: Tonny Breen MD at 13:39 EDT ,
[2021-07-02] MEDS: HYDROmorphone 0.5 MG/0.5 ML SYRINGE IV (14:00)
[2021-07-02 14:01] VITALS: O2SAT 96
[2021-07-02 14:58] VITALS: BP 148/69; O2SAT 96
== END 2021-07-02 15:03 | disposition home or self-care (01) ==
PROVIDERS: Emergency Provider Emergency Medicine; PCP Family Medicine; Visit Provider Emergency Medicine
DX: S09.90XA Unspecified injury of head, initial encounter (principal); I50.32 Chronic diastolic (congestive) heart failure; I13.0 Hypertensive heart and chronic kidney disease with heart failure and stage 1 through stage 4 chronic kidney disease, or unspecified chronic kidney disease; E11.22 Type 2 diabetes mellitus with diabetic chronic kidney disease; N18.30 Chronic kidney disease, stage 3 unspecified; E78.00 Pure hypercholesterolemia, unspecified; S50.02XA Contusion of left elbow, initial encounter; I25.10 Atherosclerotic heart disease of native coronary artery without angina pectoris; M25.422 Effusion, left elbow; W01.0XXA Fall on same level from slipping, tripping and stumbling without subsequent striking against object, initial encounter; Z86.73 Personal history of transient ischemic attack (TIA), and cerebral infarction without residual deficits; Z95.5 Presence of coronary angioplasty implant and graft
CPT/HCPCS: 70450; 72125; 73060; 73080; 96374; 96375; 99285; A4216

== ENCOUNTER → 2021-07-13 | Outpatient (CLI) | payer MEDICARE, SELFPAY ==
[2021-06-18 13:40] VITALS: BMI 28.7
[2021-07-13 10:35] LABS: Glucose 172 mg/dL (74-106)
[2021-07-15 08:37] LABS: C-Peptide 3.7 ng/mL (1.1-4.4)
== END | disposition home or self-care (01) ==
LOC: LAB 09:13
PROVIDERS: PCP Family Medicine; Referring Provider Nurse Practitioner Family; Visit Provider Nurse Practitioner Family
DX: E11.22 Type 2 diabetes mellitus with diabetic chronic kidney disease (principal); Z79.4 Long term (current) use of insulin; N18.32 Chronic kidney disease, stage 3b
CPT/HCPCS: 36415; 82947; 84681

== ENCOUNTER → 2021-07-17 | Outpatient (CLI) | payer MEDICARE, SELFPAY ==
[2021-06-18 13:40] VITALS: BMI 28.7
--- NOTE | 2021-07-17 08:59 | STRESSREP ---
Stress Test Report Date: 07-17-2021 Procedure: Pharmacologic stress nuclear imaging study Indications: Shortness of breath/dyspnea on exertion; CAD; PCI; CABG; PAF Consent: Per the patient Procedure: The patient underwent pharmacologic (Regadenoson 0.4mg ) evaluation with a peak heart rate of 64 beats per minute (46%predicted maximal heart rate) and a peak blood pressure of 142/74 mmHg. The baseline ECG demonstrated sinus rhythm. The peak pharmacologic ECG demonstrated no obvious ECG changes. There were no cardiac dysrhythmias pretest, during pharmacologic infusion, or recovery. There was no complaint of chest discomfort during pharmacologic infusion or recovery. The examination was discontinued secondary to completion of protocol. Impression: 1. Pharmacologic (Regadenoson) evaluation 2. Peak pharmacologic ECG with no obvious ECG changes. 3. There were no cardiac dysrhythmias pretest, during pharmacologic infusion, or recovery. 4. Nuclear images pending Myocardial perfusion imaging study: Technique: The patient was injected with 12.0 millicuries of technetium 99m Cardiolite and subsequently rest SPECT Cardiolite nuclear imaging was obtained in the horizontal long, vertical long, and short axis views. The patient underwent pharmacologic (Regadenoson) evaluation with a peak heart rate of 64 beats per minute (47% percent predicted maximal heart rate) and a peak blood pressure of 142/74 mmHg. The patient was injected with 34.3 millicuries of technetium 99m Cardiolite and subsequently stress SPECT Cardiolite nuclear imaging was obtained in the horizontal long, vertical long, and short axis views. A gated Cardiolite study at peak stress was obtained. Interpretation: Rest and stress SPECT Cardiolite nuclear imaging status post realignment, normalization, and attenuation correction demonstrate status post stress and area of subtle diminished tracer uptake near the distal anterior/anteroapical segments. There are similar type findings on the stress polar maps. There is end systolic thickening and brightening. The gated Cardiolite study demonstrates myocardial thickening and inward wall motion. The reported LVEF is 72%. Impression: 1. Rest and stress SPECT current nuclear imaging demonstrate the appearance of subtle diminished tracer uptake near the distal anterior/anteroapical segment status post stress potentially compatible with an area of stress-induced myocardial ischemia although an element of soft tissue attenuation/artifact cannot necessarily be excluded. 2. The gated Cardiolite study reports an LVEF of 72%. This note was generated with [employer] software. It may contain incorrect words, spelling, and punctuation that were not noted in checking the note before signing.
== END | disposition home or self-care (01) ==
LOC: CVS 07:14
PROVIDERS: PCP Family Medicine; Referring Provider Nurse Practitioner Family; Visit Provider Nurse Practitioner Family
DX: R06.02 Shortness of breath (principal); I25.10 Atherosclerotic heart disease of native coronary artery without angina pectoris; I10 Essential (primary) hypertension; E78.00 Pure hypercholesterolemia, unspecified; Z95.1 Presence of aortocoronary bypass graft; Z95.5 Presence of coronary angioplasty implant and graft
CPT/HCPCS: 78452; 93017; A9500; A4216; J2785

== ENCOUNTER → 2021-07-26 | Outpatient (CLI) | payer MEDICARE, SELFPAY ==
[2021-06-18 13:40] VITALS: BMI 28.7
[2021-07-26 18:10] LABS: Albumin, Serum 3.8 g/dL (3.2-5.0); BUN 41 mg/dL (7-18); BUN/Creat Ratio 28.1 RATIO (10-20); Calcium,Total 9.4 mg/dL (8.5-10.1); Chloride 108 mmol/L (98-107); Creatinine, Serum 1.46 mg/dL (0.55-1.02); EST Glomerular Filtration Rate 36 mL/min (>60); Est Glom Filt Rate - Afr Amer 44 mL/min (>60); Glucose 127 mg/dL (74-106); Phosphorus 3.8 mg/dL (2.5-4.9); Sodium Level 137 mmol/L (136-145)
== END | disposition home or self-care (01) ==
LOC: POLAB3 14:33
PROVIDERS: PCP Family Medicine; Visit Provider Internal Medicine Nephrology
DX: N18.4 Chronic kidney disease, stage 4 (severe) (principal)
CPT/HCPCS: 36415; 80069

== ENCOUNTER 2021-08-01 19:49 | Emergency (ER) | payer MEDICARE, SELFPAY ==
[2021-06-18 13:40] VITALS: BMI 28.7
[2021-08-01 19:50] VITALS: BP 175/64; PULSE 76; RESP 18; TEMP 36.6; O2SAT 96; BMI 28.8
--- NOTE | 2021-08-01 19:59 | RAD_ITS ---
EXAM: XR LEFT RIBS AND AP CHEST, 3 OR MORE VIEWS CLINICAL INDICATION: fall Technologist Notes PT FELL ONTO LEFT SIDE, HURTS MOSTLY IN THE FRONT TECHNIQUE: Frontal and oblique views of the left ribs and frontal view of the chest. This report was created using [employer] report generation technology. COMPARISON: None. FINDINGS: LUNGS AND PLEURAL SPACES: Unremarkable. No consolidation or edema. No pneumothorax. No effusion. HEART: Unremarkable. Cardiac silhouette not enlarged. MEDIASTINUM: Central airways and mediastinal contour are unremarkable. BONES/JOINTS: Multiple median sternotomy wires are noted consistent for cardiac surgery. No evidence of displaced rib fractures. VASCULATURE: There are calcifications of the aorta. This is consistent for atherosclerotic disease. TUBES, LINES AND DEVICES: Metallic leads in the spinal canal may suggest spinal stimulator leads. RAD/Ribs Uni Min 3V w/PA Chest IMPRESSION: No acute findings in the chest or left ribs. Electronically Signed: Jl Kimble MD at 20:46 EDT Reading Location ID and State: [facility] / [place] , Service support ,
--- NOTE | 2021-08-01 20:15 | RAD_ITS ---
INDICATION: fall EXAMINATION/TECHNIQUE: X-RAY - LEFT XR Elbow Min 3 Views COMPARISON: Left elbow x-rays 07/02/2021 FINDINGS: SOFT TISSUES: No soft tissue swelling or gas. No radiopaque foreign body. BONES/JOINTS: There is no displacement of the anterior or posterior fat pads. No acute fracture or subluxation. Normal alignment. Preservation of the joint space. No sclerotic or destructive changes observed. RAD/Elbow min 3 Views IMPRESSION: Negative. Electronically Signed: Jarvis Dawson DO at 21:17 EDT ,
[2021-08-01 20:53] VITALS: PULSE 78; RESP 16; O2SAT 97
--- NOTE | 2021-08-01 21:39 | EDS_ITS ---
HPI History of Present Illness Chief Complaint: Fall Informant: patient and spouse/S.O. Narrative Narrative: 85-year-old female states she was pushing a cart across the garage floor when suddenly she fell down. She notes that she injured the entire left side of my body. After going through each body part one by one we have narrowed it down to the lower left anterior ribs and the left elbow. She states all the other areas do not seem to hurt. She does note some abrasions to the left leg. She denies headache neck pain back pain. She states that she did not hit her head. [facility] Medical History (HFpEF) heart failure with preserved ejection fraction Angina pectoris Atherosclerotic heart disease of [place] coronary artery without angina pectoris CAD (coronary artery disease) Carotid stenosis, left Chest pain Chronic renal failure, stage 3 (moderate) Coronary artery disease CPAP (continuous positive airway pressure) dependence Debility Diabetes Diabetes mellitus, type 2 Dyspnea on exertion Edema Essential hypertension Fatigue Fibromyalgia GERD (gastroesophageal reflux disease) History of stroke Hypothyroidism Intertrigo Lumbosacral radiculopathy Microalbuminuria Non-smoker Obstructive sleep apnea 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 Presence of stent in coronary artery (~12/11/18) Pure hypercholesterolemia Renal cancer Shortness of breath Sleep apnea Stroke/cerebrovascular accident TIA (transient ischemic attack) Home Medications duloxetine 20 mg capsule,delayed release 20 mg PO DAILY depression 12/20/18 [History Last Taken 08/10/19] hydralazine 50 mg tablet 50 mg PO TID blood pressure 12/20/18 [History Last Taken 09/17/19 05:30] aspirin 81 mg tablet,delayed release (Adult Low Dose Aspirin) 81 mg PO DAILY heart health 01/01/19 [History Last Taken 08/10/19] gabapentin 300 mg capsule 300 mg PO BID nerve pain 01/01/19 [History Last Taken 03/23/19] oxybutynin chloride 10 mg tablet,extended release 24 hr 10 mg PO DAILY BLADDER 03/23/19 [History Last Taken 03/23/19] nitroglycerin 0.4 mg sublingual tablet 0.4 mg sublingual Q5M PRN chest pain #25 tabs 09/28/19 [Rx Last Taken Unknown] atorvastatin 40 mg tablet 40 mg PO QHS cholesterol 05/10/20 [History Last Taken Unknown] levothyroxine 50 mcg tablet 50 mcg PO DAILY thyroid 05/10/20 [History Last Taken Unknown] lansoprazole 30 mg capsule,delayed release 30 mg PO DAILY reflux 12/08/20 [History Last Taken Unknown] clopidogrel 75 mg tablet 75 mg PO DAILY anti platelet #90 tabs 01/01/21 [Rx Last Taken Unknown] diphenhydramine 25 mg-acetaminophen 500 mg tablet (Tylenol PM Extra Strength) 2 tab PO QHS PRN Insomnia 05/24/21 [History Last Taken Unknown] amlodipine 10 mg tablet 10 mg PO DAILY 06/16/21 [History Last Taken Unknown] cholecalciferol (vitamin D3) 25 mcg (1,000 unit) capsule 25 mcg PO 2XW vitamin 06/20/21 [History Last Taken Unknown] furosemide 40 mg tablet (Lasix) 40 mg PO BID 06/20/21 [History Last Taken Unknown] insulin glargine 100 unit/mL (3 mL) subcutaneous pen (Lantus Solostar U-100 Insulin) 72 unit subcut QPM 06/20/21 [History Last Taken Unknown] lisinopril 20 mg tablet 20 mg PO DAILY 06/20/21 [History Last Taken Unknown] metoprolol tartrate 50 mg tablet 25 mg PO BID blood pressure 06/20/21 [History Last Taken Unknown] ranolazine 500 mg tablet,extended release,12 hr 500 mg PO BID PRN 06/20/21 [History Last Taken Unknown] insulin lispro 100 unit/mL subcutaneous pen (Humalog KwikPen (U-100) Insulin) 35 unit (0.35 mL) subcut TID #31.5 mL 06/25/21 [Rx Last Taken Unknown] hydrocodone-acetaminophen 5-325mg 5mg-325mg 1 tab PO Q6H PRN pain 3 days #12 tabs 07/02/21 [Rx Last Taken Unknown] isosorbide mononitrate 60 mg tablet,extended release 24 hr 120 mg PO DAILY #90 tabs 07/17/21 [Rx Last Taken Unknown] oxycodone-acetaminophen 5 mg-325 mg tablet 1 tab PO Q6H PRN PRN pain 5 days #20 TABLETS 08/01/21 [Rx Last Taken Unknown] Allergy/AdvReac Type Severity Reaction Status Date / Time latex Allergy Rash Verified 08/01/21 19:52 adhesive tape AdvReac Rash Verified 08/01/21 19:52 ticagrelor [From Brilinta] AdvReac Shortness Verified 08/01/21 19:52 of breath Family History Father Heart disease Mother Breast cancer Diabetes Heart disease Surgical History H/O hemorrhoidectomy History of appendectomy History of back surgery History of cholecystectomy History of coronary artery bypass graft x 3 (~04/08/16) History of coronary artery stent placement History of hysterectomy History of knee replacement procedure of right knee History of right and left heart catheterization (LHC) (~08/10/19) History of right inguinal hernia repair Hx of CABG Postlaminectomy syndrome of lumbar region Presence of coronary angioplasty implant and graft (~12/11/18) Social History Smoking Status: Never smoker alcohol intake: never substance use type: does not use caffeine: No ROS ROS ED Constitutional Constitutional ED: Denies chills or weight loss Eyes Eyes: Denies change in vision or diplopia ENT ENT ED: Denies ear pain, rhinorrhea or sore throat Cardiovascular Cardiovascular: Reports chest pain; Denies orthopnea, palpitations or racing heartbeat Respiratory/Chest Respiratory/Chest: Denies cough, dyspnea or orthopnea Gastrointestinal Gastrointestinal: Denies abdominal pain, diarrhea, nausea or vomiting Genitourinary Genitourinary ED: Denies dysuria, hematuria or urinary frequency Musculoskeletal Musculoskeletal: Reports other Details: Left elbow pain ; Denies arthralgias or myalgias Integumentary Denies abscess or rash Neurologic Neurologic: Denies headache(s) or weakness Psychiatric Psychiatric: Denies anxiety, depression, suicidal ideation or suicidal thoughts Endocrine Endocrinology: Denies polydipsia, polyphagia or polyuria Allergic/Immunologic Allergic/Immunologic ED: Denies mouth swelling, tongue swelling or urticaria EXAM Physical Exam Const Vital Signs: 08/01/21 19:50 08/01/21 20:50 08/01/21 20:53 Temperature 97.8 F Temperature Source Temporal Pulse Rate 76 78 Respiratory Rate 18 16 Respiratory Effort Normal Respiratory Depth Normal Respiratory Pattern Normal Blood Pressure 175/64 H Blood Pressure Mean 101 Pulse Ox 96 97 Oxygen Delivery Method Room Air Room Air Room Air Positive well nourished and well developed General Appearance ED: well developed HEENT Reports normocephalic, head/scalp atraumatic and moist mucous membranes Eyes PERRL and EOMs intact bilaterally Neck no lymphadenopathy, supple and no JVD Chest Wall Chest Narrative: Patient has tenderness to palpation over the left anterior lower ribs. Resp normal respiratory effort and clear to auscultation bilaterally Cardio regular rate, regular rhythm and no murmurs GI normal to inspection, nondistended, normoactive bowel sounds and non-tender Palpation: soft Back/Spine no CVA tenderness and normal ROM Extremity Extremity Narrative: Patient has tenderness palpation over the radial head. No significant swelling. No ecchymosis seen. Neurovascular intact distal. General Extremety ED: Negative for edema General Extremity: Negative for edema Neuro oriented x3 and CN's II-XII intact bilaterally Sensorium / Orientation: alert Motor Exam: strength 5/5 throughout Psych mental status grossly normal Mood & Affect: Negative for depressed or tearful Skin no rashes or lesions noted and no wounds MDM MDM MDM Narrative Medical decision making narrative: My interpretation of the plain films of the left elbow is no acute fracture. My interpretation of the plain films of the rib series is an acute fracture of the left lower rib. Patient received pain medication. I will write for pain medicine at home. This is her third fall in 2 weeks. I Nanci give her fall prevention tips. She needs to follow-up with her doctor in a week. Radiography Diagnostic Testing: Clinical Impression(s) from Imaging Studies Ribs w/Chest X-Ray 08/01/21 19:59 IMPRESSION: No acute findings in the chest or left ribs. Electronically Signed: Jl Kimble MD at 20:46 EDT , Elbow X-Ray 08/01/21 20:15 IMPRESSION: Negative. Electronically Signed: Jarvis Dawson DO at 21:17 EDT , Discharge Plan Triage Chief Complaint: Fall ED Provider: Familia Anderson Dx/Rx/DC Orders Clinical Impression: Fall, Left rib fracture, Contusion of elbow, left Instructions: Bruises (Contusions), ED Rib Fracture Prescriptions: New oxycodone-acetaminophen [oxycodone-acetaminophen] 5-325 mg tablet 1 tab PO Q6H PRN PRN (Reason: pain) 5 Days Qty: 20 0RF No Action gabapentin 300 mg capsule 300 mg PO BID aspirin [Adult Low Dose Aspirin] 81 mg tablet,delayed release (DR/EC) 81 mg PO DAILY cholecalciferol (vitamin D3) 25 mcg (1,000 unit) capsule 25 mcg PO 2XW levothyroxine 50 mcg tablet 50 mcg PO DAILY atorvastatin 40 mg tablet 40 mg PO QHS lansoprazole 30 mg capsule,delayed release(DR/EC) 30 mg PO DAILY diphenhydramine-acetaminophen [Tylenol PM Extra Strength] 25-500 mg tablet 2 tab PO QHS PRN (Reason: Insomnia) lisinopril 20 mg tablet 20 mg PO DAILY furosemide [Lasix] 40 mg tablet 40 mg PO BID ranolazine 500 mg tablet extended release 12 hr 500 mg PO BID PRN metoprolol tartrate 50 mg tablet 25 mg PO BID hydralazine 50 MG tablet 50 mg PO TID duloxetine 20 MG capsule 20 mg PO DAILY oxybutynin chloride 10 MG tablet extended release 24hr 10 mg PO DAILY amlodipine 10 mg tablet 10 mg PO DAILY Lantus Solostar U-100 Insulin 100 unit/mL (3 mL) insulin pen 72 unit subcut QPM hydrocodone-acetaminophen 5-325 mg tablet 1 tab PO Q6H PRN (Reason: pain) 3 Days Qty: 12 0RF nitroglycerin 0.4 mg tablet, sublingual 0.4 mg SUBLINGUAL Q5M PRN (Reason: chest pain) Qty: 25 3RF Rx Instructions: do not exceed 3 doses per episode clopidogrel 75 mg tablet 75 mg PO DAILY Qty: 90 3RF Hold Instructions: ?GI Bleed, until Eval. by GI insulin lispro [Humalog KwikPen Insulin] 100 unit/mL insulin pen 35 unit subcut TID Qty: 31.5 6RF isosorbide mononitrate 60 mg tablet extended release 24 hr 120 mg PO DAILY Qty: 90 3RF Primary Care Provider: Fernando Kong Referrals: Fernando Kong MD [Primary Care Provider] - 1 Week Disposition Disposition: Home, Self Care
[2021-08-01] MEDS: oxyCODONE 5 MG Tablet PO (21:49)
== END 2021-08-01 23:04 | disposition home or self-care (01) ==
PROVIDERS: Emergency Provider Emergency Medicine; PCP Family Medicine; Visit Provider Emergency Medicine
DX: S22.32XA Fracture of one rib, left side, initial encounter for closed fracture (principal); I50.32 Chronic diastolic (congestive) heart failure; I13.0 Hypertensive heart and chronic kidney disease with heart failure and stage 1 through stage 4 chronic kidney disease, or unspecified chronic kidney disease; E11.22 Type 2 diabetes mellitus with diabetic chronic kidney disease; N18.30 Chronic kidney disease, stage 3 unspecified; S50.02XA Contusion of left elbow, initial encounter; E78.00 Pure hypercholesterolemia, unspecified; W19.XXXA Unspecified fall, initial encounter; I25.10 Atherosclerotic heart disease of native coronary artery without angina pectoris; S80.812A Abrasion, left lower leg, initial encounter
CPT/HCPCS: 71101; 73080; 99282

== ENCOUNTER → 2021-08-20 | Outpatient (CLI) | payer MEDICARE, SELFPAY ==
[2021-06-18 13:40] VITALS: BMI 28.7
[2021-08-20 12:57] LABS: Albumin, Serum 3.4 g/dL (3.2-5.0); BUN 21 mg/dL (7-18); BUN/Creat Ratio 16.4 RATIO (10-20); Calcium,Total 8.8 mg/dL (8.5-10.1); Chloride 100 mmol/L (98-107); Creatinine, Serum 1.28 mg/dL (0.55-1.02); EST Glomerular Filtration Rate 42 mL/min (>60); Est Glom Filt Rate - Afr Amer 51 mL/min (>60); Glucose 312 mg/dL (74-106); Phosphorus 3.2 mg/dL (2.5-4.9); Sodium Level 136 mmol/L (136-145)
== END | disposition home or self-care (01) ==
LOC: POLAB3 11:34
PROVIDERS: PCP Family Medicine; Visit Provider Internal Medicine Nephrology
DX: N18.4 Chronic kidney disease, stage 4 (severe) (principal)
CPT/HCPCS: 36415; 80069

== ENCOUNTER → 2021-08-28 | Outpatient (CLI) | payer MEDICARE, SELFPAY ==
[2021-06-18 13:40] VITALS: BMI 28.7
--- NOTE | 2021-08-28 12:58 | VDLE_ITS ---
Reason For Study: pain Procedure LEFT This is a venous duplex using B-mode, color GSV is normal. flow and spectral Doppler. CFV is compressible, spontaneous, phasic, Exam performed in department. competent, and demonstrates normal The exam was abbreviated due to the COVID 19 augmentation. protocol. FV is compressible, spontaneous, phasic, The exam was diagnostic. competent and demonstrates normal A preliminary report was called and/or faxed augmentation. to Dr. Lezama. POP V is compressible, spontaneous, phasic, competent and demonstrates normal augmentation. T/P Trunk is compressible. PTV is compressible. LT PerV is compressible. VL/Venous Duplex US, Unilateral Interpretation Summary Deep veins of the left lower extremity are patent and compressible segmentally. There is no evidence of left lower extremity deep vein thrombosis. Valvular competence appears intac t within the proximal deep venous system on the left . The left great saphenous vein appears patent a nd compressible segmentally. Ordering Physician: Jose J Lezama Referring Physician: Jose J Lezama Performed By: Wesley Stacy RVT
== END | disposition home or self-care (01) ==
LOC: CVS 12:56
PROVIDERS: PCP Family Medicine; Referring Provider Family Medicine; Visit Provider Family Medicine
DX: M79.662 Pain in left lower leg (principal)
CPT/HCPCS: 93971

== ENCOUNTER 2021-09-21 18:02 | Inpatient (IN) | payer MEDICARE, SELFPAY ==
[2021-06-18 13:40] VITALS: BMI 28.7
[2021-09-21] VITALS (7 sets, daily range): BP systolic 134–170; BP diastolic 67–82; PULSE 66–115; RESP 12–30; TEMP 35.7–37.2; O2SAT 92–98; BMI 28.1; BMI 30.4
--- NOTE | 2021-09-21 18:51 | EKG12_ITS ---
Test Reason : DYSRHYTHMIA Blood Pressure : / mmHG Vent. Rate : 088 BPM Atrial Rate : 088 BPM P-R Int : 170 ms QRS Dur : 084 ms QT Int : 382 ms P-R-T Axes : 000 029 -70 degrees QTc Int : 462 ms Sinus rhythm with Premature supraventricular complexes Nonspecific ST and T wave abnormality Confirmed by CHERYL BENITEZ, ANGELA ([id number]), editorial manager KATHI TSE ([id number]) on 09/24/2021 10:14:24 AM Referred By: MARY Confirmed By:ANGELA LUNA MD
--- NOTE | 2021-09-21 18:53 | EX.ED.DYSGE1 ---
HPI History of Present Illness Chief Complaint: Lower Extremity Injury Informant: patient and spouse/S.O. Narrative Narrative: Patient states she is here for left lower leg discomfort. She states the whole left leg between the ankle and the knee feels tight and sore. Has been feeling this way for about 2 weeks. She did fall and hurt herself on this leg at the end of July. But she states it really was not hurting. It had a bruise which is progressively improving. She is on Plavix and aspirin but no other anticoagulation. After extensive questioning, I find out that both legs have been a little bit more swollen recently. She has been gaining a little bit of weight. She is also having some slight increasing dyspnea. This is typical of her pattern of congestive heart failure. Her has been trying to get her to double her Lasix but she has been refusing until this morning. She has no chest pain. No lightheadedness or presyncope or syncope. No hemoptysis. She has never had DVT or PE. She is feels that the breathing is clearly due to congestive heart failure. She has had this before. She has been seen by orthopedics for the leg pain. They stated if she continues with the pain they will get an MRI. An x-ray was done in the office which was negative. No ultrasound has been done. She has no back pain or neurologic complaint. [facility] Medical History (HFpEF) heart failure with preserved ejection fraction Angina pectoris Atherosclerotic heart disease of [place] coronary artery without angina pectoris Broken ribs CAD (coronary artery disease) Carotid stenosis, left Chest pain Chronic renal failure, stage 3 (moderate) Coronary artery disease CPAP (continuous positive airway pressure) dependence Debility Diabetes Diabetes mellitus, type 2 Dyspnea on exertion Edema Essential hypertension Fatigue Fibromyalgia GERD (gastroesophageal reflux disease) History of stroke Hypothyroidism Intertrigo Lumbosacral radiculopathy Microalbuminuria Non-smoker Obstructive sleep apnea 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 Presence of stent in coronary artery (~12/11/18) Pure hypercholesterolemia Renal cancer Shortness of breath Sleep apnea Stroke/cerebrovascular accident TIA (transient ischemic attack) Home Medications duloxetine 20 mg capsule,delayed release 20 mg PO DAILY depression 12/20/18 [History Last Taken 08/10/19] hydralazine 50 mg tablet 50 mg PO TID blood pressure 12/20/18 [History Last Taken 09/17/19 05:30] aspirin 81 mg tablet,delayed release (Adult Low Dose Aspirin) 81 mg PO DAILY heart health 01/01/19 [History Last Taken 08/10/19] gabapentin 300 mg capsule 300 mg PO BID nerve pain 01/01/19 [History Last Taken 03/23/19] oxybutynin chloride 10 mg tablet,extended release 24 hr 10 mg PO DAILY BLADDER 03/23/19 [History Last Taken 03/23/19] nitroglycerin 0.4 mg sublingual tablet 0.4 mg sublingual Q5M PRN chest pain #25 tabs 09/28/19 [Rx Last Taken Unknown] atorvastatin 40 mg tablet 40 mg PO QHS cholesterol 05/10/20 [History Last Taken Unknown] levothyroxine 50 mcg tablet 50 mcg PO DAILY thyroid 05/10/20 [History Last Taken Unknown] lansoprazole 30 mg capsule,delayed release 30 mg PO DAILY reflux 12/08/20 [History Last Taken Unknown] clopidogrel 75 mg tablet 75 mg PO DAILY anti platelet #90 tabs 01/01/21 [Rx Last Taken Unknown] diphenhydramine 25 mg-acetaminophen 500 mg tablet (Tylenol PM Extra Strength) 2 tab PO QHS PRN Insomnia 05/24/21 [History Last Taken Unknown] amlodipine 10 mg tablet 10 mg PO DAILY 06/16/21 [History Last Taken Unknown] cholecalciferol (vitamin D3) 25 mcg (1,000 unit) capsule 25 mcg PO 2XW vitamin 06/20/21 [History Last Taken Unknown] furosemide 40 mg tablet (Lasix) 40 mg PO BID 06/20/21 [History Last Taken Unknown] insulin glargine 100 unit/mL (3 mL) subcutaneous pen (Lantus Solostar U-100 Insulin) 72 unit subcut QPM 06/20/21 [History Last Taken Unknown] lisinopril 20 mg tablet 20 mg PO DAILY 06/20/21 [History Last Taken Unknown] metoprolol tartrate 50 mg tablet 25 mg PO BID blood pressure 06/20/21 [History Last Taken Unknown] ranolazine 500 mg tablet,extended release,12 hr 500 mg PO BID PRN 06/20/21 [History Last Taken Unknown] insulin lispro 100 unit/mL subcutaneous pen (Humalog KwikPen (U-100) Insulin) 35 unit (0.35 mL) subcut TID #31.5 mL 06/25/21 [Rx Last Taken Unknown] hydrocodone-acetaminophen 5-325mg 5mg-325mg 1 tab PO Q6H PRN pain 3 days #12 tabs 07/02/21 [Rx Last Taken Unknown] isosorbide mononitrate 60 mg tablet,extended release 24 hr 120 mg PO DAILY #90 tabs 07/17/21 [Rx Last Taken Unknown] oxycodone-acetaminophen 5 mg-325 mg tablet 1 tab PO Q6H PRN PRN pain 5 days #20 TABLETS 08/01/21 [Rx Last Taken Unknown] Allergy/AdvReac Type Severity Reaction Status Date / Time latex Allergy Rash Verified 09/21/21 18:04 adhesive tape AdvReac Rash Verified 09/21/21 18:04 ticagrelor [From Brilinta] AdvReac Shortness Verified 09/21/21 18:04 of breath Family History Father Heart disease Mother Breast cancer Diabetes Heart disease Surgical History H/O hemorrhoidectomy History of appendectomy History of back surgery History of cholecystectomy History of coronary artery bypass graft x 3 (~04/08/16) History of coronary artery stent placement History of hysterectomy History of knee replacement procedure of right knee History of right and left heart catheterization (LHC) (~08/10/19) History of right inguinal hernia repair Hx of CABG Postlaminectomy syndrome of lumbar region Presence of coronary angioplasty implant and graft (~12/11/18) Social History Smoking Status: Never smoker alcohol intake: never substance use type: does not use caffeine: No ROS ROS ED Constitutional Constitutional ED: Denies chills, fever(s) or subjective ENT ENT ED: Denies sore throat Cardiovascular Cardiovascular: Reports paroxysmal nocturnal dyspnea; Denies chest pain, palpitations or racing heartbeat Respiratory/Chest Respiratory/Chest: Reports dyspnea and paroxysmal nocturnal dyspnea; Denies cough Gastrointestinal Gastrointestinal: Denies abdominal pain, nausea or vomiting Genitourinary Genitourinary ED: Denies dysuria Musculoskeletal Musculoskeletal: Reports other Details: See history of present illness peer ; Denies back pain Integumentary Denies rash Neurologic Neurologic: Denies headache(s), paresthesias or weakness Endocrine Endocrinology: Denies polydipsia or polyuria Hematologic/Lymphatic Hematologic/Lymphatic: Denies easy bleeding or easy bruising Allergic/Immunologic Allergic/Immunologic ED: Denies urticaria EXAM Physical Exam Const Vital Signs: 09/21/21 18:04 09/21/21 20:02 09/21/21 21:35 Temperature 96.3 F L Temperature Source Temporal Pulse Rate 86 66 107 H Respiratory Rate 12 16 30 H Blood Pressure 170/67 H 134/78 H 152/82 H Blood Pressure Mean 101 96 105 Pulse Ox 92 98 92 Oxygen Delivery Method Room Air Room Air Nasal Cannula Oxygen Flow Rate (L/min) 4 Positive well nourished and well developed General Appearance ED: well developed and NAD HEENT Reports moist mucous membranes Eyes General Eye ED: Negative for scleral icterus Neck no JVD Chest Wall inspection of chest normal Resp Resp Narrative: Patient carries on a normal conversation. She might have a very subtle increase of her breathing effort. She does have a few rales at the bases. No wheezing. No pain with deep breath Auscultation: Negative for rales Cardio regular rate and regular rhythm GI normal to inspection, nondistended, normoactive bowel sounds Back/Spine no CVA tenderness Extremity Extremity Narrative: There is trace edema of both lower extremities. There is no asymmetry. There is some resolving bruising on the left. Pulses are normal. There is no cord. No swelling of the joints. Neuro oriented x3 Psych mental status grossly normal Skin no rashes or lesions noted MDM MDM MDM Narrative Medical decision making narrative: Patient's ultrasound did not show any sign of DVT. the patient's was more concerned about her dyspnea. She initially did not want to talk about this a lot because she does not want to come to the hospital. But she looks dyspneic to me. We did do work-up. She had a BNP of 1700 which is higher than her normal. Creatinine was borderline at 1.68 although she has been much higher before. White count is high at 17.9 but this is chronic. I do not think she has pneumonia. TSH was okay. Troponin has slight elevation at 76 but she is not having chest pain. Patient switched from sinus into atrial fibrillation with a rate about 120 here today. She does not have a history of this. She was given a dose of metoprolol because she is already on that. This did drop her rate and then she converted back to sinus. She is also given Lasix. She is saturating well but on 2 L now. I discussed the case with Dr. Horan who came down to see the patient and she will be admitted. Lab Data Attestation: I reviewed the patient's lab results. Labs: Laboratory Results - last 24 hr 09/21/21 09/21/21 09/21/21 19:33 19:33 19:33 WBC 17.9 H RBC 4.05 L Hgb 12.6 Hct 37.3 MCV 92.1 MCH 31.1 MCHC 33.8 RDW Std Deviation 46.1 H RDW Coeff of [place]quita 13.6 Plt Count 246 MPV 11.2 Immature Gran % (Auto) 0.800 Neut % (Auto) 76.0 H Lymph % (Auto) 12.0 L [place] % (Auto) 11.0 H Eos % (Auto) 0.0 Baso % (Auto) 0.2 Absolute Neuts (auto) 13.6 H Absolute Lymphs (auto) 2.14 Nucleated RBC % 0.2 Differential Comment SEE COMMENT Diff Path Review May foll Platelet Estimate ADEQUATE RBC Morphology N CHROM Anisocytosis RARE Macrocytosis RARE Sodium 137 Potassium 3.6 Chloride 104 Carbon Dioxide 23.0 Anion Gap 10 BUN 49 H Creatinine 1.68 H Estim Creat Clear Calc 21.53 Est GFR (MDRD) Af Amer 37 L Est GFR (MDRD) Non-Af 31 L BUN/Creatinine Ratio 29.2 H Glucose 212 H Calcium 8.6 Troponin I High Sens 76 H B-Natriuretic Peptide 1720.2 H TSH 09/21/21 19:33 WBC RBC Hgb Hct MCV MCH MCHC RDW Std Deviation RDW Coeff of [place] Plt Count MPV Immature Gran % (Auto) Neut % (Auto) Lymph % (Auto) [place] % (Auto) Eos % (Auto) Baso % (Auto) Absolute Neuts (auto) Absolute Lymphs (auto) Nucleated RBC % Differential Comment Diff Path Review Platelet Estimate RBC Morphology Anisocytosis Macrocytosis Sodium Potassium Chloride Carbon Dioxide Anion Gap BUN Creatinine Estim Creat Clear Calc Est GFR (MDRD) Af Amer Est GFR (MDRD) Non-Af BUN/Creatinine Ratio Glucose Calcium Troponin I High Sens B-Natriuretic Peptide TSH 1.84 Radiography Diagnostic Testing: Clinical Impression(s) from Imaging Studies Venous Duplex 09/21/21 19:13 IMPRESSION: Normal venous Doppler ultrasound of the bilateral lower extremities. Electronically Signed: Jose Luis Sauceda MD at 22:08 EDT Reading Location ID and State: [address] [place] [address] , Service support , Chest X-Ray 09/21/21 20:01 IMPRESSION: No acute disease Electronically Signed: Jose Luis Sauceda MD at 21:10 EDT , Discharge Plan Triage Chief Complaint: Lower Extremity Injury ED Provider: Miguel Diaz Dx/Rx/DC Orders Clinical Impression: Congestive heart failure, New onset atrial fibrillation, Hypoxia Prescriptions: No Action gabapentin 300 mg capsule 300 mg PO BID aspirin [Adult Low Dose Aspirin] 81 mg tablet,delayed release (DR/EC) 81 mg PO DAILY cholecalciferol (vitamin D3) 25 mcg (1,000 unit) capsule 25 mcg PO 2XW levothyroxine 50 mcg tablet 50 mcg PO DAILY atorvastatin 40 mg tablet 40 mg PO QHS lansoprazole 30 mg capsule,delayed release(DR/EC) 30 mg PO DAILY diphenhydramine-acetaminophen [Tylenol PM Extra Strength] 25-500 mg tablet 2 tab PO QHS PRN (Reason: Insomnia) lisinopril 20 mg tablet 20 mg PO DAILY furosemide [Lasix] 40 mg tablet 40 mg PO BID ranolazine 500 mg tablet extended release 12 hr 500 mg PO BID PRN metoprolol tartrate 50 mg tablet 25 mg PO BID hydralazine 50 MG tablet 50 mg PO TID duloxetine 20 MG capsule 20 mg PO DAILY oxybutynin chloride 10 MG tablet extended release 24hr 10 mg PO DAILY amlodipine 10 mg tablet 10 mg PO DAILY Lantus Solostar U-100 Insulin 100 unit/mL (3 mL) insulin pen 72 unit subcut QPM hydrocodone-acetaminophen 5-325 mg tablet 1 tab PO Q6H PRN (Reason: pain) 3 Days Qty: 12 0RF oxycodone-acetaminophen [oxycodone-acetaminophen] 5-325 mg tablet 1 tab PO Q6H PRN PRN (Reason: pain) 5 Days Qty: 20 0RF nitroglycerin 0.4 mg tablet, sublingual 0.4 mg SUBLINGUAL Q5M PRN (Reason: chest pain) Qty: 25 3RF Rx Instructions: do not exceed 3 doses per episode clopidogrel 75 mg tablet 75 mg PO DAILY Qty: 90 3RF Hold Instructions: ?GI Bleed, until Eval. by GI insulin lispro [Humalog KwikPen Insulin] 100 unit/mL insulin pen 35 unit subcut TID Qty: 31.5 6RF isosorbide mononitrate 60 mg tablet extended release 24 hr 120 mg PO DAILY Qty: 90 3RF Primary Care Provider: Fernando Kong Referrals: Fernando Kong MD [Primary Care Provider] - Disposition Disposition: Acute Care Hospital [facility]
--- NOTE | 2021-09-21 19:13 | US_ITS ---
STUDY: VENOUS DOPPLER ULTRASOUND - BILATERAL LOWER EXTREMITIES REASON FOR EXAM: Female, 86 years old. undefined -- PAIN TECHNIQUE: Ultrasound evaluation of the deep vein system to include hills-scale imaging and compression was performed. Hills-scale imaging and Doppler sonographic evaluation, including duplex spectral analysis and qualitative color flow sonography, was performed. COMPARISON: None. FINDINGS: RIGHT LEG Common Femoral Vein: Normal compression, spontaneity and augmentation. Normal color Doppler. Common Femoral Vein/Greater Saphenous Junction: Normal compression, spontaneity and augmentation. Normal color Doppler. Deep Femoral Vein: Normal compression, spontaneity and augmentation. Normal color Doppler. Femoral Proximal: Normal compression, spontaneity and augmentation. Normal color Doppler. Femoral Middle: Normal compression, spontaneity and augmentation. Normal color Doppler. Femoral Distal: Normal compression, spontaneity and augmentation. Normal color Doppler. Popliteal Vein: Normal compression, spontaneity and augmentation. Normal color Doppler. Posterior Tibial Vein: Normal compression, spontaneity and augmentation. Normal color Doppler. Peroneal Vein: Normal compression, spontaneity and augmentation. Normal color Doppler. LEFT LEG Common Femoral Vein: Normal compression, spontaneity and augmentation. Normal color Doppler. Common Femoral Vein/Greater Saphenous Junction: Normal compression, spontaneity and augmentation. Normal color Doppler. Deep Femoral Vein: Normal compression, spontaneity and augmentation. Normal color Doppler. Femoral Proximal: Normal compression, spontaneity and augmentation. Normal color Doppler. Femoral Middle: Normal compression, spontaneity and augmentation. Normal color Doppler. Femoral Distal: Normal compression, spontaneity and augmentation. Normal color Doppler. Popliteal Vein: Normal compression, spontaneity and augmentation. Normal color Doppler. Posterior Tibial Vein: Normal compression, spontaneity and augmentation. Normal color Doppler. Peroneal Vein: Normal compression, spontaneity and augmentation. Normal color Doppler. US/Venous Duplex Imag/[place] Extrem IMPRESSION: Normal venous Doppler ultrasound of the bilateral lower extremities. Electronically Signed: Jose Luis Sauceda MD at 22:08 EDT ,
[2021-09-21 19:45] LABS: Absolute Lymphocyte Count 2.14 X10^3/uL (0.83-4.51); Absolute Neutrophil Count 13.6 X10^3/uL (2.0-7.7); Basophil# 0.04 X10^3/uL; Basophil% 0.2 % (0-1); Hematocrit 37.3 % (37-47); Hemoglobin 12.6 g/dL (12.0-15.0); Lymphocyte # 2.14 X10^3/ul (0.83-4.51); Mean Corp Hgb Conc 33.8 g/dL (32-36); Mean Corpuscular Hgb 31.1 pg (27.0-32.0); Mean Corpuscular Volume 92.1 fL (81-99); Mean Platelet Vol. 11.2 fl (6.2-12.0); Monocyte# 1.96 X10^3/uL; NRBC Flagged by Analyzer 0.2 % (0-5); Neutrophil # 13.57 X10^3/uL (2.7-7.7); POSITIVE DIFFERENTIAL YES; Platelet Count 246 K/mm3 (150-450); RBC Distribution Width CV 13.6 % (11.6-14.6); RBC Distribution Width SD 46.1 fl (35.1-43.9); Red Blood Count 4.05 M/mm3 (4.2-5.4); White Blood Count 17.9 K/mm3 (4.4-11.0)
[2021-09-21 19:54] LABS: Differential Indicated SCAN CRITERIA MET
--- NOTE | 2021-09-21 20:01 | RAD_ITS ---
STUDY: X-RAY CHEST REASON FOR EXAM: Female, 86 years old. SOB, CHF TECHNIQUE: Single frontal view of the chest. COMPARISON: 06/16/2021 FINDINGS: Sternotomy wires. Intraspinal electrode mid thoracic spine. Vascular clips in the mediastinum. The lungs are clear and expanded. There is no demonstrated pleural abnormality. Normal size heart. Normal mediastinum and eddie. Normal visualized pulmonary arteries. Normal visualized aortic arch and descending thoracic aorta. Normal visualized thoracic spine. Normal visualized ribs, clavicles, and shoulders. There is no demonstrated abnormality of the visualized soft tissue structures of the upper abdomen. RAD/Chest 1 View (Portable) IMPRESSION: No acute disease Electronically Signed: Jose Luis Sauceda MD at 21:10 EDT ,
[2021-09-21 20:13] LABS: Anion Gap 10 (5-15); Anisocytosis RARE; BUN 49 mg/dL (7-18); BUN/Creat Ratio 29.2 RATIO (10-20); Calcium,Total 8.6 mg/dL (8.5-10.1); Chloride 104 mmol/L (98-107); Creatinine, Serum 1.68 mg/dL (0.55-1.02); EST Glomerular Filtration Rate 31 mL/min (>60); Est Glom Filt Rate - Afr Amer 37 mL/min (>60); Estimated Creatinine Clearance 21.53 ml/min; Glucose 212 mg/dL (74-106); Macrocytosis RARE; Platelet Estimate ADEQUATE (ADEQ); Potassium 3.6 mmol/L (3.5-5.1); Red Cell Morphology N CHROM NORMAL (NORM C&C); Sodium Level 137 mmol/L (136-145); Troponin-I HS 76 pg/mL (3.0-54.0)
[2021-09-21 20:20] LABS: BNP,B-Type NATRIURETIC PEPTIDE 1720.2 pg/mL (0-100)
[2021-09-21] MEDS: Morphine 4 MG/ML Syringe IV (20:26)
--- NOTE | 2021-09-21 20:40 | EKG12_ITS ---
Test Reason : RYTHM CHANGE Blood Pressure : / mmHG Vent. Rate : 119 BPM Atrial Rate : 000 BPM P-R Int : 000 ms QRS Dur : 066 ms QT Int : 254 ms P-R-T Axes : 000 041 212 degrees QTc Int : 357 ms Atrial fibrillation with rapid ventricular response Nonspecific ST abnormality Abnormal ECG Confirmed by CHERYL BENITEZ, ANGELA ([id number]), staff editor KATHI TSE ([id number]) on 09/24/2021 10:14:56 AM Referred By: MARY Confirmed By:AGNELA LUNA MD
[2021-09-21] MEDS: Furosemide 100 MG/10 ML Vial 60 MG IV (21:45)
[2021-09-21] MEDS: Metoprolol Tartrate 5 MG/5 ML Vial IV (21:50)
--- NOTE | 2021-09-21 22:09 | HP.PCM.HOS_ITS ---
[facility] - General General Date of Admission: 09/21/21 Date of Service: 09/21/21 Chief Complaint: Bilateral leg swelling for 3 weeks, progressive worsening shortness of breath for [address] [facility] Narrative GLORIA PAUL, is a 86 F with history of chronic HFpEF, status post triple- vessel CABG came to ER for leg swelling for 3 weeks. As per triage note, patient complained of left leg swelling, feeling of tightness and pain after she fell down on August 01. Her PCP did x-ray and was no fracture. She fell down on August 01 and broke her ribs on the right side. Actually she has bilateral leg swelling, progressive worsening of shortness of breath for 2 weeks. She is easily gets tired and winded even walking few steps as per the . She denies chest pain or pressure but has chest tightness all around. Patient is also wheezing. In ED she went into A. fib with RVR. Her first EKG individually reviewed shows sinus rhythm with premature supraventricular complexes, QTC 462 ms, QRS 84 ms. After that next EKG shows A. fib with RVR at 119 bpm. She is also gain of weight along with increasing abdominal swelling. Denies dizziness, lightheadedness, syncope or near syncope. She has occasional mild cough at night as per the but did not bring any sputum. No fever. Venous duplex in ED shows no DVT. Chest x-ray individually reviewed shows mild hilar fullness/engorgement with capitalization, sternal cerclage wires. No pleural effusion. Basic labs done in the ED reviewed and discussed in assessment and plan. [facility] Medical History (HFpEF) heart failure with preserved ejection fraction Angina pectoris Atherosclerotic heart disease of three affiliated coronary artery without angina pectoris Broken ribs CAD (coronary artery disease) Carotid stenosis, left Chest pain Chronic renal failure, stage 3 (moderate) Coronary artery disease CPAP (continuous positive airway pressure) dependence Debility Diabetes Diabetes mellitus, type 2 Dyspnea on exertion Edema Essential hypertension Fatigue Fibromyalgia GERD (gastroesophageal reflux disease) History of stroke Hypothyroidism Intertrigo Lumbosacral radiculopathy Microalbuminuria Non-smoker Obstructive sleep apnea Other intermediate frame tender (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 Presence of stent in coronary artery (~12/11/18) Pure hypercholesterolemia Renal cancer Shortness of breath Sleep apnea Stroke/cerebrovascular accident TIA (transient ischemic attack) Home Medications duloxetine 20 mg capsule,delayed release 20 mg PO DAILY depression 12/20/18 [History Last Taken 08/10/19] hydralazine 50 mg tablet 50 mg PO TID blood pressure 12/20/18 [History Last Taken 09/17/19 05:30] aspirin 81 mg tablet,delayed release (Adult Low Dose Aspirin) 81 mg PO DAILY heart health 01/01/19 [History Last Taken 08/10/19] gabapentin 300 mg capsule 300 mg PO BID nerve pain 01/01/19 [History Last Taken 03/23/19] oxybutynin chloride 10 mg tablet,extended release 24 hr 10 mg PO DAILY BLADDER 03/23/19 [History Last Taken 03/23/19] nitroglycerin 0.4 mg sublingual tablet 0.4 mg sublingual Q5M PRN chest pain #25 tabs 09/28/19 [Rx Last Taken Unknown] atorvastatin 40 mg tablet 40 mg PO QHS cholesterol 05/10/20 [History Last Taken Unknown] levothyroxine 50 mcg tablet 50 mcg PO DAILY thyroid 05/10/20 [History Last Taken Unknown] lansoprazole 30 mg capsule,delayed release 30 mg PO DAILY reflux 12/08/20 [History Last Taken Unknown] clopidogrel 75 mg tablet 75 mg PO DAILY anti platelet #90 tabs 01/01/21 [Rx Last Taken Unknown] diphenhydramine 25 mg-acetaminophen 500 mg tablet (Tylenol PM Extra Strength) 2 tab PO QHS PRN Insomnia 05/24/21 [History Last Taken Unknown] amlodipine 10 mg tablet 10 mg PO DAILY 06/16/21 [History Last Taken Unknown] cholecalciferol (vitamin D3) 25 mcg (1,000 unit) capsule 25 mcg PO 2XW vitamin 06/20/21 [History Last Taken Unknown] furosemide 40 mg tablet (Lasix) 40 mg PO BID 06/20/21 [History Last Taken Unknown] insulin glargine 100 unit/mL (3 mL) subcutaneous pen (Lantus Solostar U-100 Insulin) 72 unit subcut QPM 06/20/21 [History Last Taken Unknown] lisinopril 20 mg tablet 20 mg PO DAILY 06/20/21 [History Last Taken Unknown] metoprolol tartrate 50 mg tablet 25 mg PO BID blood pressure 06/20/21 [History Last Taken Unknown] ranolazine 500 mg tablet,extended release,12 hr 500 mg PO BID PRN 06/20/21 [History Last Taken Unknown] insulin lispro 100 unit/mL subcutaneous pen (Humalog KwikPen (U-100) Insulin) 35 unit (0.35 mL) subcut TID #31.5 mL 06/25/21 [Rx Last Taken Unknown] hydrocodone-acetaminophen 5-325mg 5mg-325mg 1 tab PO Q6H PRN pain 3 days #12 tabs 07/02/21 [Rx Last Taken Unknown] isosorbide mononitrate 60 mg tablet,extended release 24 hr 120 mg PO DAILY #90 tabs 07/17/21 [Rx Last Taken Unknown] oxycodone-acetaminophen 5 mg-325 mg tablet 1 tab PO Q6H PRN PRN pain 5 days #20 TABLETS 08/01/21 [Rx Last Taken Unknown] Allergy/AdvReac Type Severity Reaction Status Date / Time latex Allergy Rash Verified 09/21/21 18:04 adhesive tape AdvReac Rash Verified 09/21/21 18:04 ticagrelor [From Brilinta] AdvReac Shortness Verified 09/21/21 18:04 of breath Family History Father Heart disease Mother Breast cancer Diabetes Heart disease Surgical History H/O hemorrhoidectomy History of appendectomy History of back surgery History of cholecystectomy History of coronary artery bypass graft x 3 (~04/08/16) History of coronary artery stent placement History of hysterectomy History of knee replacement procedure of right knee History of right and left heart catheterization (LHC) (~08/10/19) History of right inguinal hernia repair Hx of CABG Postlaminectomy syndrome of lumbar region Presence of coronary angioplasty implant and graft (~12/11/18) Social History Smoking Status: Never smoker alcohol intake: never substance use type: does not use caffeine: No ROS ROS Narrative Constitutional: Reports fatigue and weakness, worsening shortness of breath, dyspnea on exertion. No fever HEENT: Reports systems reviewed and no addt'l complaints, except as documented Respiratory/Chest: Denies chest pain. Rest as described in HPI Gastrointestinal: Denies coffee ground emesis, hematemesis or vomiting. Recent history of rectal bleeding June 2021 Genitourinary: Denies burning urination or new urinary tract symptoms Musculoskeletal: Left leg pain after fall. Had fracture of ribs as per history. Leg swelling Neurologic: Denies seizure-like activity skin: No ulcer. Mild reddish rash, bruise on the lateral aspect of left leg Endocrinology: Reports systems reviewed and no addt'l complaints, except as documented Hematologic/Lymphatic: Reports systems reviewed and no addt'l complaints, except as documented Rest 14 ROS are negative except as mentioned in HPI Vital Signs Vital Signs Vital Signs: 09/21/21 18:04 09/21/21 20:02 09/21/21 21:35 Temperature 96.3 F L Temperature Source Temporal Pulse Rate 86 66 107 H Respiratory Rate 12 16 30 H Blood Pressure 170/67 H 134/78 H 152/82 H Blood Pressure Mean 101 96 105 Pulse Ox 92 98 92 Oxygen Delivery Method Room Air Room Air Nasal Cannula Oxygen Flow Rate (L/min) 4 Weight Weight: 164 lb Body Mass Index (BMI) 28.1 Physical Exam Narrative Physical exam General: Alert, Oriented x3, Cooperative HEENT: Atraumatic, PERRLA, EOMI, Normocephalic Oral: No Gingival or Mucosal Lesions/ Ulcerations Neck: Supple, No JVD, Negative Carotid Bruits Lungs: Air entry diminished in bilateral lungs. Bilateral coarse crepitation and wheezing. Dyspnea at rest. Mild hypoxia and tachypnea Cardiovascular: Sinus rhythm, converted to A. fib. Normal S1, Normal S2, No murmurs Abdomen: Bowel Sounds Present, Soft, Non Tender, Mild abdominal distention possible ascites : No renal angle tenderness. No suprapubic tenderness. Extremities: Bilateral pitting 3+ leg edema, Capillary Refill Less than 3 Seconds Skin: Small, bruise over left leg Musculoskeletal: Mild tenderness over left leg, ROM restricted. Neurological: Cranial nerves II-XII grossly intact, DTR 2+/4 Psych/Mental Status: Flat affect, anxiety, depression. Results Lab / Micro Data Result Diagrams: 09/21/21 19:33 09/21/21 19:33 Labs: Laboratory Results - last 24 hr 09/21/21 19:33: WBC 17.9 H, RBC 4.05 L, Hgb 12.6, Hct 37.3, MCV 92.1, MCH 31.1, MCHC 33.8, RDW Std Deviation 46.1 H, RDW Coeff of Laquita 13.6, Plt Count 246, MPV 11.2, Immature Gran % (Auto) 0.800, Neut % (Auto) 76.0 H, Lymph % (Auto) 12.0 L, [place] % (Auto) 11.0 H, Eos % (Auto) 0.0, Baso % (Auto) 0.2, Absolute Neuts (auto) 13.6 H, Absolute Lymphs (auto) 2.14, Nucleated RBC % 0.2, Differential Comment SEE COMMENT, Diff Path Review June foll, Platelet Estimate ADEQUATE, RBC Morphology N CHROM, Anisocytosis RARE, Macrocytosis RARE 09/21/21 19:33: Sodium 137, Potassium 3.6, Chloride 104, Carbon Dioxide 23.0, Anion Gap 10, BUN 49 H, Creatinine 1.68 H, Estim Creat Clear Calc 21.53, Est GFR (MDRD) Af Amer 37 L, Est GFR (MDRD) Non-Af 31 L, BUN/Creatinine Ratio 29.2 H, Glucose 212 H, Calcium 8.6, Troponin I High Sens 76 H 09/21/21 19:33: B-Natriuretic Peptide 1720.2 H Radiology Impression Venous Duplex 09/21/21 19:13 IMPRESSION: Normal venous Doppler ultrasound of the bilateral lower extremities. Electronically Signed: Jose Luis Sauceda MD at 22:08 EDT , Chest X-Ray 09/21/21 20:01 IMPRESSION: No acute disease Electronically Signed: Jose Luis Sauceda MD at 21:10 EDT , Assessment & Plan Assessment/Plan (1) New onset atrial fibrillation: (2) Acute on chronic heart failure with preserved ejection fraction (HFpEF): PLAN: This is a 86-year-old female is being admitted for shortness of breath, bilateral leg swelling for about 3 weeks and paroxysmal A. fib with RVR in ED. 1. Acute on chronic HFpEF with coronary artery status post CABG: Patient is being admitted to PCU. Denies chest pain but has chest tightness. Troponin 76 slightly elevated. BNP 1720. Cycle troponin. I think, her troponin is elevated due to CHF coupled with A. fib with RVR. Last stress test in July 2021 reported an area for stress-induced myocardial ischemia although soft tissue attenuation/artifact cannot be excluded in distal anterior/anteroapical segment. EF 72%. Last 2D echo January 2021 EF 65%, stage I diastolic dysfunction with no significant valvular abnormality. Patient had Lasix 60 mg IV in ED and started on 40 mg IV every 12 hourly. Continue patient cardiac medications aspirin, Plavix, metoprolol 25 twice daily, hydralazine, isosorbide mononitrate and Ranexa. Patient has chronic shortness of breath therefore was started on Ranexa the last cardiology office visit in June 2021. Hold amlodipine. 2. Paroxysmal A. fib with RVR: Patient went into A. fib RVR in ED although when she came in she was in sinus rhythm. She converted to sinus rhythm after metoprolol 5 mg IV given. Patient again getting tachycardic with heart rate about 120 per night. Cardizem 10 mg IV bolus ordered. Continue metoprolol 25 mg twice daily and titrate up once she is euvolemic. 3. Acute hypoxic respiratory insufficiency due to acute on chronic HFpEF: Continue oxygen therapy to keep pulse ox 90%. 4. Diabetes mellitus with uncontrolled hyperglycemia: Last A1c 8.1% in August 2021. Glucose 212. Home dose of Lantus insulin and Humalog insulin continued. Accu-Chek insulin is covered with Humalog sliding scale. Patient follows obstetrician and gynaecologist, Dr. Raudel Angel. 5. Acute kidney injury on CKD stage G4: Admitting BUN/creatinine 49/1.68. Her baseline runs between 1.2-1.45 with estimated creatinine clearance around 25 mill per minute. Monitor kidney failure cloyed as patient is on diuretic. 6. Hypertension: Blood pressure is 158/88. 7. Dyslipidemia: On atorvastatin 40 mg daily. 8. Hypothyroidism: On levothyroxine. 9. History of recent GI bleed in June 2021: Patient came to ED with rectal bleeding on aspirin and Plavix. At that time Plavix was held. Patient wanted to go home therefore was discharged with follow-up with Dr. Brown. Dr. Brown saw the patient on June 2021. She was recommended EGD and colonoscopy but she did not had it yet. Admitting H&H 12.6/37%. Platelet count 246,000. Monitor CBC. Denies any rectal bleed/GI bleed since July 01. Living will/advanced directive/end of life care: Patient does have living will or advanced directive. Her is power of die welder for health. After discussion of benefits/risks procedures involved with full code, DNR CC arrest and DNR CC, the patient and opted for full code. Patient and her do want artificial life support including intubation, tube feed, ventilator and/chest compression, central venous catheter, vasopressor and DC shock if needed Total time spent in [id number] encounter in discussion of advanced directive 16 minutes. Laboratory Results 09/21/21 19:33: WBC 17.9 H, RBC 4.05 L, Hgb 12.6, Hct 37.3, MCV 92.1, MCH 31.1, MCHC 33.8, RDW Std Deviation 46.1 H, RDW Coeff of Laquita 13.6, Plt Count 246, MPV 11.2, Immature Gran % (Auto) 0.800, Neut % (Auto) 76.0 H, Lymph % (Auto) 12.0 L, [place] % (Auto) 11.0 H, Eos % (Auto) 0.0, Baso % (Auto) 0.2, Absolute Neuts (auto) 13.6 H, Absolute Lymphs (auto) 2.14, Nucleated RBC % 0.2, Differential Comment SEE COMMENT, Diff Path Review June foll, Platelet Estimate ADEQUATE, RBC Morphology N CHROM, Anisocytosis RARE, Macrocytosis RARE 09/21/21 19:33: Sodium 137, Potassium 3.6, Chloride 104, Carbon Dioxide 23.0, Anion Gap 10, BUN 49 H, Creatinine 1.68 H, Estim Creat Clear Calc 21.53, Est GFR (MDRD) Af Amer 37 L, Est GFR (MDRD) Non-Af 31 L, BUN/Creatinine Ratio 29.2 H, Glucose 212 H, Calcium 8.6, Troponin I High Sens 76 H 09/21/21 19:33: B-Natriuretic Peptide 1720.2 H 09/21/21 19:33: TSH 1.84 Charges/Coding Visit Charges Inpatient E&M: 86093 Init Hosp L3 Procedures Hospitalists Procedures: 41464 Advncd Care Plan 30 Min
[2021-09-21 22:14] LABS: Thyroid Stim Hormone (TSH) 1.84 uIU/mL (0.358-3.74)
[2021-09-21] MEDS: dilTIAZem 25 MG/5 ML Vial 10 MG IV BOLUS (23:41)
[2021-09-21] MEDS: Metoprolol Tartrate 25 MG Tablet PO (23:41)
[2021-09-21] MEDS: Ranolazine 500 MG Tablet PO (23:41)
[2021-09-21] MEDS: Atorvastatin Calcium 40 MG Tablet PO (23:41)
[2021-09-21] MEDS: Gabapentin 300 MG Capsule PO (23:41)
[2021-09-22] VITALS (21 sets, daily range): BP systolic 137–161; BP diastolic 52–96; PULSE 71–89; RESP 12–28; TEMP 36.3–37.7; O2SAT 89–95
[2021-09-22] MEDS: oxyCODONE 5 MG Tablet PO (00:32)
[2021-09-22 01:13] LABS: Magnesium 1.8 mg/dL (1.6-2.6); Phosphorus 3.4 mg/dL (2.5-4.9); Troponin-I HS 87 pg/mL (3.0-54.0)
[2021-09-22 02:24] LABS: Absolute Lymphocyte Count 1.75 X10^3/uL (0.83-4.51); Absolute Neutrophil Count 13.7 X10^3/uL (2.0-7.7); Basophil# 0.02 X10^3/uL; Basophil% 0.1 % (0-1); Hematocrit 36.9 % (37-47); Hemoglobin 12.2 g/dL (12.0-15.0); Lymphocyte # 1.75 X10^3/ul (0.83-4.51); Lymphocyte % 10.1 % (19-41); Mean Corp Hgb Conc 33.1 g/dL (32-36); Mean Corpuscular Hgb 30.5 pg (27.0-32.0); Mean Corpuscular Volume 92.3 fL (81-99); Monocyte# 1.68 X10^3/uL; Monocyte% 9.7 % (0-10); NRBC Flagged by Analyzer 0.1 % (0-5); Neutrophil # 13.67 X10^3/uL (2.7-7.7); Neutrophil % 79.1 % (47-70); POSITIVE DIFFERENTIAL YES; Platelet Count 228 K/mm3 (150-450); RBC Distribution Width CV 13.7 % (11.6-14.6); RBC Distribution Width SD 46.4 fl (35.1-43.9); White Blood Count 17.3 K/mm3 (4.4-11.0)
[2021-09-22 02:26] LABS: Differential Indicated SCAN CRITERIA MET
[2021-09-22 02:42] LABS: Troponin-I HS 87 pg/mL (3.0-54.0)
[2021-09-22 02:43] LABS: Differential Comment SCANNED
[2021-09-22 02:44] LABS: Anion Gap 10 (5-15); BUN 47 mg/dL (7-18); BUN/Creat Ratio 30.3 RATIO (10-20); Calcium,Total 8.2 mg/dL (8.5-10.1); Chloride 102 mmol/L (98-107); Cholesterol 120 mg/dL (200); Creatinine, Serum 1.55 mg/dL (0.55-1.02); EST Glomerular Filtration Rate 34 mL/min (>60); Est Glom Filt Rate - Afr Amer 41 mL/min (>60); Estimated Creatinine Clearance 22.35 ml/min; Glucose 248 mg/dL (74-106); High Density Lipoprotein 67 mg/dL; Potassium 3.1 mmol/L (3.5-5.1); Sodium Level 136 mmol/L (136-145); Triglycerides 134 mg/dL; Very Low Density Lipoprotein 27 mg/dL (5-40)
[2021-09-22] MEDS: hydrALAZINE 50 MG Tablet PO ×3 (06:12→22:02)
[2021-09-22] MEDS: Levothyroxine 50 MCG Tablet PO (06:12)
[2021-09-22] MEDS: Gabapentin 300 MG Capsule PO ×2 (08:59→22:01)
[2021-09-22] MEDS: Insulin Glargine-YFGN 100 UNIT/ML Pen 70 UNIT SC (08:59)
[2021-09-22] MEDS: Potassium Chloride Oral Tablet 20 MEQ 40 MEQ PO (08:59)
[2021-09-22] MEDS: Furosemide 40 MG/4 ML Vial IV (08:59)
[2021-09-22] MEDS: Insulin Lispro 100 UNIT/ML INSULN.PEN SC ×3 (09:00→22:08)
[2021-09-22] MEDS: Insulin Lispro 100 UNIT/ML INSULN.PEN 35 UNIT SC ×2 (09:01→11:30)
[2021-09-22] MEDS: DULoxetine Hcl 20 MG Capsule PO (09:02)
[2021-09-22] MEDS: Ranolazine 500 MG Tablet PO ×2 (09:02→22:04)
[2021-09-22] MEDS: Metoprolol Tartrate 25 MG Tablet PO ×2 (09:02→22:03)
[2021-09-22] MEDS: Clopidogrel Bisulfate 75 MG Tablet PO (09:02)
[2021-09-22] MEDS: Aspirin E.C. 81 MG Tablet PO (09:02)
[2021-09-22] MEDS: Tolterodine Tartrate 2 MG CAP.SA PO (09:02)
[2021-09-22] MEDS: Pantoprazole Sodium 40 MG Tablet PO (09:02)
[2021-09-22 09:55] LABS: Bedside Glucose 278 mg/dL (74-106)
[2021-09-22 13:11] LABS: Bedside Glucose 322 mg/dL (74-106)
--- NOTE | 2021-09-22 13:28 | PN.HOSP_ITS ---
Subjective Subjective Patient seen and examined. She said she still felt weak and tired, though her shortness of breath was improving. She denied any chest pain, palpitations, dizziness, nausea, vomiting or diarrhea. Review of systems is otherwise negative. Objective Data Objective Data Vital Signs: Vital Signs Temp Pulse Resp BP Pulse Ox O2 Del Method O2 Flow Rate 98.3 F 80 28 H 137/60 H 92 Nasal Cannula 5 09/22/21 13:23 09/22/21 13:23 09/22/21 13:23 09/22/21 13:23 09/22/21 13:23 09/22/21 13:23 09/22/21 13:23 Oxygen Flow Rate (L/min) 5 Oxygen Delivery Method Nasal Cannula Weight: 170 lb 6.677 oz Body Mass Index (BMI) 30.4 Intake & Output: Intake and Output for Last 24 Hours 09/20/21 09/21/21 09/22/21 23:59 23:59 23:59 Intake Total 420 / 420 Output Total 1225 / 1225 Balance -805 / -805 Lab / Micro Data Result Diagrams: 09/22/21 02:15 09/22/21 02:15 Labs: Laboratory Results - last 24 hr 09/21/21 00:41: Phosphorus 3.4, Magnesium 1.8, Troponin I High Sens 87 H 09/21/21 19:33: WBC 17.9 H, RBC 4.05 L, Hgb 12.6, Hct 37.3, MCV 92.1, MCH 31.1, MCHC 33.8, RDW Std Deviation 46.1 H, RDW Coeff of Laquita 13.6, Plt Count 246, MPV 11.2, Immature Gran % (Auto) 0.800, Neut % (Auto) 76.0 H, Lymph % (Auto) 12.0 L, [place] % (Auto) 11.0 H, Eos % (Auto) 0.0, Baso % (Auto) 0.2, Absolute Neuts (auto) 13.6 H, Absolute Lymphs (auto) 2.14, Nucleated RBC % 0.2, Differential Comment SEE COMMENT, Diff Path Review May foll, Platelet Estimate ADEQUATE, RBC Morphology N CHROM, Anisocytosis RARE, Macrocytosis RARE 09/21/21 19:33: Sodium 137, Potassium 3.6, Chloride 104, Carbon Dioxide 23.0, Anion Gap 10, BUN 49 H, Creatinine 1.68 H, Estim Creat Clear Calc 21.53, Est GFR (MDRD) Af Amer 37 L, Est GFR (MDRD) Non-Af 31 L, BUN/Creatinine Ratio 29.2 H, Glucose 212 H, Calcium 8.6, Troponin I High Sens 76 H 09/21/21 19:33: B-Natriuretic Peptide 1720.2 H 09/21/21 19:33: TSH 1.84 09/22/21 02:15: WBC 17.3 H, RBC 4.00 L, Hgb 12.2, Hct 36.9 L, MCV 92.3, MCH 30.5, MCHC 33.1, RDW Std Deviation 46.4 H, RDW Coeff of Laquita 13.7, Plt Count 228, MPV 11.0, Immature Gran % (Auto) 1.000 H, Neut % (Auto) 79.1 H, Lymph % (Auto) 10.1 L, [place] % (Auto) 9.7, Eos % (Auto) 0.0, Baso % (Auto) 0.1, Absolute Neuts (auto) 13.7 H, Absolute Lymphs (auto) 1.75, Nucleated RBC % 0.1, Differential Comment SCANNED, Diff Path Review June09/22/21 02:15: Sodium 136, Potassium 3.1 L, Chloride 102, Carbon Dioxide 24.0, Anion Gap 10, BUN 47 H, Creatinine 1.55 H, Estim Creat Clear Calc 22.35, Est GFR (MDRD) Af Amer 41 L, Est GFR (MDRD) Non-Af 34 L, BUN/Creatinine Ratio 30.3 H, Glucose 248 H, Calcium 8.2 L, Triglycerides 134, Cholesterol 120, LDL Cholesterol 26, VLDL Cholesterol 27, HDL Cholesterol 67 09/22/21 02:15: Troponin I High Sens 87 H 09/22/21 08:21: POC Glucose 278 H 09/22/21 11:28: POC Glucose 322 H Radiography Diagnostic Testing: Radiology Impression Venous Duplex 09/21/21 19:13 IMPRESSION: Normal venous Doppler ultrasound of the bilateral lower extremities. Electronically Signed: Jose Luis Sauceda MD at 22:08 EDT Reading Location ID and State: [address] [place] [address] , Service support , Chest X-Ray 09/21/21 20:01 IMPRESSION: No acute disease Electronically Signed: Jose Luis Sauceda MD at 21:10 EDT , Physical Exam Const alert, oriented x3 and no apparent distress HEENT head/scalp atraumatic, moist oral mucous membranes and oropharynx normal Head and Scalp: normocephalic Mouth: oral and palatal mucosa normal Eyes PERRL, EOMs intact bilaterally and conjunctivae normal Neck no lymphadenopathy and supple Resp Resp Narrative: tachypneic, bibasilar crackles. No wheezing. On 5L of oxygen by nasal canula Cardio regular rate, regular rhythm, S1 normal heart sound, S2 normal heart sound and no murmurs GI normal to inspection, nondistended, normoactive bowel sounds, soft to palpation, non-tender and non-distended Extremity normal to inspection and full ROM Extremity Narrative: mild 1+ bipedal edema Neuro oriented x3, CN's II-XII intact bilaterally, moves all extremities and no focal motor deficits Sensorium / Orientation: awake and alert Motor Exam: strength 5/5 throughout Psych affect normal Assessment & Plan Assessment/Plan (1) Acute on chronic heart failure with preserved ejection fraction (HFpEF): (2) Congestive heart failure: (3) New onset atrial fibrillation: (4) Hypoxia: PLAN: Plan #Acute on chronic HFpEF * on 5L of oxygen by nasal canula; doesnt wear oxygen at home * diurese with IV lasix 40mg bid * monitor intake and output. Fluid restriction to 1500cc daily. * transition to BIPAP due to worsening respiratory status * consult cardiology * 2D echo done in January 2021 showed EF of 65% with stage I diastolic dysfunction no regional wall motion abnormalities noted. * Will switch patient to Lasix drip. * #Acute hypoxic respiratory failure due to acute on chronic HFpEF * on 5L of oxygen, being transitioned to BIPAP due to worsening respiratory failure and increased work of breathing. * breathing treatment with bronchodilators * titrate oxygen to maintain sats >90% * #New onset A. fib with RVR * RVR has resolved. * Was given a bolus of Cardizem in the ED and she flipped back into normal sinus rhythm. * Currently on metoprolol 25 mg twice daily. * Maycol vas score is 6 * will place on heparin drip * #Hypokalemia: Potassium is 3.1. Will replace and trend. #CAD s/p CABG: On Imdur, metoprolol and lisinopril as well as aspirin and statin as well as Plavix #Hypertension: On hydralazine and lisinopril as well as metoprolol #Hypothyroidism: On Synthroid #History of renal cancer: Stable. #CKD stage IIIb: Creatinine is 1.69 which is fairly around his baseline. Will monitor. #Type 2 diabetes mellitus: On Lantus 72 units nightly. Insulin sliding scale. Accu-Cheks ACH S. #Hyperlipidemia: On statin #History of recent GI bleed: * Had rectal bleeding in June 2021. Plavix was held. She was discharged home and follow-up with GI on outpatient basis. That she did not and she is to have EGD and colonoscopy on outpatient basis but has not had it yet. * Follow-up with GI on outpatient basis. * DVT prophylaxis: WIll place on heparin drip for now. Charges/Coding Visit Charges Inpatient E&M: 43371 Subs Hosp L3
--- NOTE | 2021-09-22 13:50 | CON.PCM.CA_ITS ---
Assessment & Plan Assessment/Plan (1) Abnormal cardiac enzyme level: PLAN: The patient has mildly elevated cardiac enzymes. They have not significantly changed with respect to an increase or decrease. These enzymes may be secondary to the patient's atrial fibrillation and acute on chronic heart failure with preserved ejection fraction superimposed upon her underlying chronic cardiovascular disease process. At the present time her ECG is demonstrated no acute ST/T wave abnormalities. It would not be unreasonable to reassess the patient's ventricular wall motion and systolic function for any significant changes with a transthoracic echocardiogram. The patient has undergone a recent pharmacologic stress nuclear imaging study with the findings as noted. She was not felt to be an ideal candidate for a return trip to the cardiac catheterization laboratory based upon concerns of her gastrointestinal bleeding process at the time and not being able to remain on antiplatelet therapy or anticoagulant therapy. This may have to be reconsidered depending upon the patient's clinical course. (2) PAF (paroxysmal atrial fibrillation): PLAN: She has a history of paroxysmal atrial fibrillation. At the present time she appears to be in sinus rhythm. She will continue rate control therapy. She will initiate antiarrhythmic therapy with amiodarone therapy. She is currently on anticoagulant therapy with IV heparin. Depending upon her clinical course, concerns of GI bleeding history, etc., this may eventually need to be altered to an oral anticoagulant. (3) Acute on chronic heart failure with preserved ejection fraction (HFpEF): PLAN: The patient appears to have findings concerning for acute on chronic heart failure with preserved ejection fraction. She is being monitored. She has undergone laboratory evaluation, ECG evaluation, and radiologic studies. At the moment it appears prudent to continue medical therapy with diuretic therapy. It appears her pulse dose furosemide therapy has been altered to IV continuous infusion furosemide therapy. Her clinical course as well as her renal function will need to be followed during this time. (4) CAD (coronary artery disease): PLAN: Again the patient has a history of underlying CAD. She has undergone previous PCI and CABG. Her most recent diagnostic cardiac catheterization is noted. At the moment she will continue to be monitored and followed. She will continue medical therapy as tolerated. She will proceed with further noninvasive cardiovascular evaluation with a transthoracic echocardiogram to reassess her left ventricular wall motion and systolic function. Depending upon her clinical course, her comorbidities, etc., she may need to be reconsidered for reassessment in the cardiac catheterization laboratory. (5) Presence of stent in coronary artery: PLAN: The patient has a history of PCI. Her most recent cardiac catheterization report is noted. (6) History of coronary artery bypass graft x 3: PLAN: The patient has a history of CABG. She has undergone previous cardiac catheterization. Based upon that study it appears that her SVG to the first OM was considered occluded. (7) Carotid stenosis, left: PLAN: The patient has a history of carotid artery disease as well. She will need to continue medical management. (8) Pure hypercholesterolemia: PLAN: She should continue medical therapy as best as tolerated. (9) Essential hypertension: PLAN: Her blood pressure will need to be followed for any significant changes that warrant alteration in her medical therapy. (10) Chronic renal failure, stage 3 (moderate): QUALIFIERS: Chronic kidney disease stage 3 subtype: stage 3b (GFR 30-44) Qualified Code(s): N18.32 - Chronic kidney disease, stage 3b PLAN: Her renal insufficiency does need to be taken into consideration with respect to her medications as well as any future invasive cardiovascular studies such as cardiac catheterization requiring IV contrast. This is based upon the concerns of potential IV contrast related nephropathy and worsening renal function. (11) Leukocytosis: PLAN: The patient does have leukocytosis. The etiology is unclear as to whether this is a leukemoid reaction or related to an underlying infectious disease process or a noninfectious disease process. This may need further evaluation by internal medicine. (12) Lower GI bleeding: PLAN: The patient has had a recent history of lower GI bleeding per rectum. This led to the recommendation to place her antiplatelet therapy on hold pending further gastrointestinal evaluation. Her spouse states that he did not place her antiplatelet therapy on hold. The patient states she has not yet had her endoscopy procedures. In the interim she states her bleeding appears to have stopped. This issue is still uncertain as to what transpired with the patient and whether or not she has other gastrointestinal related issues that contribute to her ongoing clinical course as well as concerns with respect to her medications especially antiplatelet and anticoagulant therapy. While she is on her antiplatelet and anticoagulant therapy she will need to be monitored for any obvious recurrent hemorrhagic issues. (13) Hypothyroidism: QUALIFIERS: Hypothyroidism type: acquired Qualified Code(s): E03.9 - Hypothyroidism, unspecified PLAN: The patient has a history of hypothyroidism. She will continue her medical management. (14) Broken ribs: PLAN: The patient has a history of rib fractures. This can lead to her chronic chest discomfort. However, she is concerned she had chest discomfort prior to her fall rib fractures as well. (15) Leg pain: PLAN: The patient continues to complain of left lower extremity pain and not being able to bear weight on the left lower extremity. If the patient has not had radiologic evaluation for concerns of issues such as fractures, especially involving the hip area as well as other areas of the lower extremity, it may not be unreasonable to pursue further evaluation. Addt'l Comments Overall, at the present time, the patient has multiple concerns and multiple diagnoses/comorbidities. From a cardiovascular standpoint she will continue to be monitored. She will continue with medical management for her forementioned issues especially with respect to her acute issues of recurrent paroxysmal atrial fibrillation and the appearance of acute on chronic CHF with preserved ejection fraction. She will continue conservative medical therapy at this time as well as noninvasive evaluation with a transthoracic echocardiogram. However, depending upon her clinical course and her multiple comorbidities consideration will be given as to whether or not she is ever a candidate for a repeat cardiac catheterization. The above was discussed with the patient with her spouse present. This note was generated using a voice recognition system and there may be incorrect words, spelling or punctuation that were not noted when reviewing the office note prior to saving. HPI Consult Data Date of Consult: 09/22/21 HPI Narrative HPI Narrative: GLORIA PAUL, is a 86 year old white female who presents for evaluation of a combination of concerns including palpitations, shortness of breath/dyspnea, chronic chest discomfort, left lower extremity discomfort, with a history of underlying CAD, status post PCI, status post CABG, paroxysmal atrial fibrillation, chronic diastolic CHF/heart failure with preserved ejection fraction, carotid artery disease, hyperlipidemia, hypertension, diabetes mellitus, hypothyroidism, FRANKLIN/CPAP with findings concerning for paroxysmal atrial fibrillation, acute on chronic diastolic mediated CHF, and ongoing left lower extremity discomfort. The patient states that she has been progressively declining. She has noted palpitations. She notes that her shortness of breath /dyspnea have been worsening especially with activity such as walking. She states she is able to sleep supine at night with her CPAP device. She has had intermittent edema of the lower extremities more so on the left than the right. She does not recall any loss of consciousness spells. She states she has fallen on more than one occasion. She notes one of her falls occurred when she was in the driveway, she turned, and fell. She states she was evaluated in the emergency department. She was diagnosed with rib fractures. She notes that her left lower extremity is still difficult to stand on and still hurts . She states yesterday evening her symptoms worsened especially with respect to her shortness of breath and dyspnea. She presented to [facility] for further evaluation. There she had a mildly elevated high- sensitivity troponin I level and an elevated BNP. She was noted to have evidence of atrial fibrillation. A chest x-ray was reported as demonstrating no acute changes. She states she was diagnosed, from her fall, with rib fractures. She was subsequently brought into the PCU for further evaluation. He continues to have concerns of shortness of breath and dyspnea as well as her chest discomfort which she relates to her rib fractures as well as her left lower extremity discomfort. She did note palpitations yesterday evening but has not noted them today. Her high-sensitivity troponin I levels have been without significant change (increase/decrease). Her cardiac rhythm has demonstrated episodes of sinus rhythm as well as paroxysmal atrial fibrillation. Her ECG in sinus rhythm demonstrated PVCs with nonspecific ST and T wave abnormality. She has been receiving medical therapy including IV diuresis and a pulse dose. It appears this has been changed to a continuous infusion. She has also been receiving BiPAP therapy with O2 support. Her is with her at this time. He appears to have been unaware that she has been complaining of a somewhat constant chest discomfort for some time now- even before her fall. He has noted concerns of her shortness of breath and dyspnea and only being able to walk short distances without needing to stop. The patient also has had concerns of possible gastrointestinal bleeding. She states she was having rectal bleeding. She was to undergo further gastrointestinal evaluation with gastroenterology with consideration for an upper and lower endoscopy procedure. This has not yet been accomplished. She also underwent evaluation in July of this year, based upon some of her concerns, with a pharmacologic stress nuclear imaging study. The results are noted below. At that time further evaluation with a diagnostic cardiac catheterization was placed on hold based upon concerns of her ongoing gastrointestinal bleeding process and the inability to remain on antiplatelet therapy. However, her states he never stopped her antiplatelet therapy as she has been continuing on this medication. In the interim she states her rectal bleeding has stopped. [facility] Medical History (HFpEF) heart failure with preserved ejection fraction Angina pectoris Atherosclerotic heart disease of knik coronary artery without angina pectoris Broken ribs CAD (coronary artery disease) Carotid stenosis, left Chest pain Chronic renal failure, stage 3 (moderate) Coronary artery disease CPAP (continuous positive airway pressure) dependence Debility Diabetes Diabetes mellitus, type 2 Dyspnea on exertion Edema Essential hypertension Fatigue Fibromyalgia GERD (gastroesophageal reflux disease) History of stroke Hypothyroidism Intertrigo Lumbosacral radiculopathy Microalbuminuria Non-smoker Obstructive sleep apnea Other long term care administrator (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 Presence of stent in coronary artery (~12/11/18) Pure hypercholesterolemia Renal cancer Shortness of breath Sleep apnea Stroke/cerebrovascular accident TIA (transient ischemic attack) Home Medications duloxetine 20 mg capsule,delayed release 20 mg PO DAILY depression 12/20/18 [History Last Taken 08/10/19] hydralazine 50 mg tablet 50 mg PO TID blood pressure 12/20/18 [History Last Taken 09/17/19 05:30] aspirin 81 mg tablet,delayed release (Adult Low Dose Aspirin) 81 mg PO DAILY heart health 01/01/19 [History Last Taken 08/10/19] gabapentin 300 mg capsule 300 mg PO BID nerve pain 01/01/19 [History Last Taken 03/23/19] oxybutynin chloride 10 mg tablet,extended release 24 hr 10 mg PO DAILY BLADDER 03/23/19 [History Last Taken 03/23/19] nitroglycerin 0.4 mg sublingual tablet 0.4 mg sublingual Q5M PRN chest pain #25 tabs 09/28/19 [Rx Last Taken Unknown] atorvastatin 40 mg tablet 40 mg PO QHS cholesterol 05/10/20 [History Last Taken Unknown] levothyroxine 50 mcg tablet 50 mcg PO DAILY thyroid 05/10/20 [History Last Taken Unknown] lansoprazole 30 mg capsule,delayed release 30 mg PO DAILY reflux 12/08/20 [History Last Taken Unknown] clopidogrel 75 mg tablet 75 mg PO DAILY anti platelet #90 tabs 01/01/21 [Rx Last Taken Unknown] diphenhydramine 25 mg-acetaminophen 500 mg tablet (Tylenol PM Extra Strength) 2 tab PO QHS PRN Insomnia 05/24/21 [History Last Taken Unknown] amlodipine 10 mg tablet 10 mg PO DAILY 06/16/21 [History Last Taken Unknown] cholecalciferol (vitamin D3) 25 mcg (1,000 unit) capsule (Vitamin D3) 25 mcg PO 2XW vitamin 06/20/21 [History Last Taken Unknown] furosemide 40 mg tablet (Lasix) 40 mg PO BID 06/20/21 [History Last Taken Unknown] insulin glargine 100 unit/mL (3 mL) subcutaneous pen (Lantus Solostar U-100 Insulin) 72 unit subcut QPM 06/20/21 [History Last Taken Unknown] lisinopril 20 mg tablet 20 mg PO DAILY 06/20/21 [History Last Taken Unknown] metoprolol tartrate 50 mg tablet 25 mg PO BID blood pressure 06/20/21 [History Last Taken Unknown] ranolazine 500 mg tablet,extended release,12 hr 500 mg PO BID PRN 06/20/21 [History Last Taken Unknown] insulin lispro 100 unit/mL subcutaneous pen (Humalog KwikPen (U-100) Insulin) 35 unit (0.35 mL) subcut TID #31.5 mL 06/25/21 [Rx Last Taken Unknown] hydrocodone-acetaminophen 5-325mg 5mg-325mg 1 tab PO Q6H PRN pain 3 days #12 tabs 07/02/21 [Rx Last Taken Unknown] isosorbide mononitrate 60 mg tablet,extended release 24 hr 120 mg PO DAILY #90 tabs 07/17/21 [Rx Last Taken Unknown] oxycodone-acetaminophen 5 mg-325 mg tablet 1 tab PO Q6H PRN PRN pain 5 days #20 TABLETS 08/01/21 [Rx Last Taken Unknown] Allergy/AdvReac Type Severity Reaction Status Date / Time latex Allergy Rash Verified 09/21/21 18:04 adhesive tape AdvReac Rash Verified 09/21/21 18:04 ticagrelor [From Brilinta] AdvReac Shortness Verified 09/21/21 18:04 of breath Family History Father Heart disease Mother Breast cancer Diabetes Heart disease Surgical History H/O hemorrhoidectomy History of appendectomy History of back surgery History of cholecystectomy History of coronary artery bypass graft x 3 (~04/08/16) History of coronary artery stent placement History of hysterectomy History of knee replacement procedure of right knee History of right and left heart catheterization (LHC) (~08/10/19) History of right inguinal hernia repair Hx of CABG Postlaminectomy syndrome of lumbar region Presence of coronary angioplasty implant and graft (~12/11/18) Social History Smoking Status: Never smoker alcohol intake: never substance use type: does not use caffeine: No ROS Constitutional Constitutional: Reports frequent falls and weakness Eyes Eyes: Reports as per HPI ENT HEENT: Reports as per HPI Cardiovascular Cardiovascular: Reports chest pain, dyspnea and edema Respiratory/Chest Respiratory/Chest: Reports dyspnea Gastrointestinal Gastrointestinal: Reports as per HPI Genitourinary Genitourinary: Reports as per HPI Musculoskeletal Musculoskeletal: Reports extremity pain Integumentary Integumentary: Reports as per HPI Neurologic Neurologic: Reports as per HPI Psychiatric Psychiatric: Reports as per HPI Physical Exam Const alert, oriented x3 and no apparent distress Orientation / Consciousness: awake HEENT normocephalic, head/scalp atraumatic and hearing grossly normal bilaterally Eyes PERRL, conjunctivae normal and no scleral icterus Neck full ROM, supple and no JVD Chest Chest: midline sternotomy incision Resp Auscultation: diminished lung sounds bilateral lower Cardio regular rate, regular rhythm, S1 normal heart sound and S2 normal heart sound GI normal to inspection, nondistended, normoactive bowel sounds Extremity General Extremity: edema bilateral lower extremity (L > R) Details: mild Skin General Skin Exam: ecchymosis Risk Stratification Risk Stratification Applicable: Yes Age >/= 65: Yes >/= 3 CAD Risk Factors (HTN, HLD, DM, family hx of CAD, or current smoker): Yes Aspirin Use in the Past 7 Days: Yes Severe Angina (>/= episodes in 24 hours): No EKG ST Changes >/= 0.5mm: No Positive Cardiac Marker: Yes ULYSSES Risk Stratification Score: 4 ULYSSES % Risk: 20% Risk Procedure Criteria Type of Procedure Procedure Type: Elective Elective Risks - COVID COVID Risk Discussion: The surgeon/proceduralist and patient have discussed in detail the risk of expo sure to and/or potential harm posed by the COVID-19 virus with having a surgery/procedure at this time versus the risk of delaying the surgery/procedure. It is not possible to know either the risk of delaying the surgery or procedure or chance of getting an infection with perfect accuracy, but a joint decision was made between the patient and the surgeon/proceduralist to proceed at this time with the scheduled surgery/procedure as indicated on the consent form. Objective Data Vital Signs: Vital Signs Temp Pulse Resp BP Pulse Ox O2 Del Method O2 Flow Rate 98.3 F 80 28 H 137/60 H 92 Nasal Cannula 5 09/22/21 13:23 09/22/21 13:37 09/22/21 13:23 09/22/21 13:37 09/22/21 13:23 09/22/21 13:23 09/22/21 13:23 Oxygen Flow Rate (L/min) 5 Oxygen Delivery Method Nasal Cannula Weight: 170 lb 6.677 oz Body Mass Index (BMI) 30.4 Intake & Output: Intake and Output for Last 24 Hours 09/20/21 09/21/21 09/22/21 23:59 23:59 23:59 Intake Total 420 / 420 Output Total 1225 / 1225 Balance -805 / -805 Lab / Micro Data Result Diagrams: 09/22/21 02:15 09/22/21 02:15 Labs: Laboratory Results - last 24 hr 09/21/21 00:41: Phosphorus 3.4, Magnesium 1.8, Troponin I High Sens 87 H 09/21/21 19:33: WBC 17.9 H, RBC 4.05 L, Hgb 12.6, Hct 37.3, MCV 92.1, MCH 31.1, MCHC 33.8, RDW Std Deviation 46.1 H, RDW Coeff of Laquita 13.6, Plt Count 246, MPV 11.2, Immature Gran % (Auto) 0.800, Neut % (Auto) 76.0 H, Lymph % (Auto) 12.0 L, Traill % (Auto) 11.0 H, Eos % (Auto) 0.0, Baso % (Auto) 0.2, Absolute Neuts (auto) 13.6 H, Absolute Lymphs (auto) 2.14, Nucleated RBC % 0.2, Differential Comment SEE COMMENT, Diff Path Review May foll, Platelet Estimate ADEQUATE, RBC Morphology N CHROM, Anisocytosis RARE, Macrocytosis RARE 09/21/21 19:33: Sodium 137, Potassium 3.6, Chloride 104, Carbon Dioxide 23.0, Anion Gap 10, BUN 49 H, Creatinine 1.68 H, Estim Creat Clear Calc 21.53, Est GFR (MDRD) Af Amer 37 L, Est GFR (MDRD) Non-Af 31 L, BUN/Creatinine Ratio 29.2 H, Glucose 212 H, Calcium 8.6, Troponin I High Sens 76 H 09/21/21 19:33: B-Natriuretic Peptide 1720.2 H 09/21/21 19:33: TSH 1.84 09/22/21 02:15: WBC 17.3 H, RBC 4.00 L, Hgb 12.2, Hct 36.9 L, MCV 92.3, MCH 30.5, MCHC 33.1, RDW Std Deviation 46.4 H, RDW Coeff of Laquita 13.7, Plt Count 228, MPV 11.0, Immature Gran % (Auto) 1.000 H, Neut % (Auto) 79.1 H, Lymph % (Auto) 10.1 L, Traill % (Auto) 9.7, Eos % (Auto) 0.0, Baso % (Auto) 0.1, Absolute Neuts (auto) 13.7 H, Absolute Lymphs (auto) 1.75, Nucleated RBC % 0.1, Differential Comment SCANNED, Diff Path Review June09/22/21 02:15: Sodium 136, Potassium 3.1 L, Chloride 102, Carbon Dioxide 24.0, Anion Gap 10, BUN 47 H, Creatinine 1.55 H, Estim Creat Clear Calc 22.35, Est GFR (MDRD) Af Amer 41 L, Est GFR (MDRD) Non-Af 34 L, BUN/Creatinine Ratio 30.3 H, Glucose 248 H, Calcium 8.2 L, Triglycerides 134, Cholesterol 120, LDL Cholesterol 26, VLDL Cholesterol 27, HDL Cholesterol 67 09/22/21 02:15: Troponin I High Sens 87 H 09/22/21 08:21: POC Glucose 278 H 09/22/21 11:28: POC Glucose 322 H Cardiology Labs/Tests 09/21/21 00:41: Phosphorus 3.4, Magnesium 1.8 09/21/21 19:33: WBC 17.9 H, RBC 4.05 L, Hgb 12.6, Hct 37.3, MCV 92.1, MCH 31.1, MCHC 33.8, Plt Count 246, MPV 11.2, Immature Gran % (Auto) 0.800, Neut % (Auto) 76.0 H, Lymph % (Auto) 12.0 L, Traill % (Auto) 11.0 H, Eos % (Auto) 0.0, Baso % (Auto) 0.2, Absolute Neuts (auto) 13.6 H, Nucleated RBC % 0.2 09/21/21 19:33: Sodium 137, Potassium 3.6, Chloride 104, Carbon Dioxide 23.0, Anion Gap 10, BUN 49 H, Creatinine 1.68 H, Est GFR (MDRD) Af Amer 37 L, Est GFR (MDRD) Non-Af 31 L, BUN/Creatinine Ratio 29.2 H, Glucose 212 H, Calcium 8.6 09/21/21 19:33: B-Natriuretic Peptide 1720.2 H 09/22/21 02:15: WBC 17.3 H, RBC 4.00 L, Hgb 12.2, Hct 36.9 L, MCV 92.3, MCH 30.5, MCHC 33.1, Plt Count 228, MPV 11.0, Immature Gran % (Auto) 1.000 H, Neut % (Auto) 79.1 H, Lymph % (Auto) 10.1 L, Traill % (Auto) 9.7, Eos % (Auto) 0.0, Baso % (Auto) 0.1, Absolute Neuts (auto) 13.7 H, Nucleated RBC % 0.1 09/22/21 02:15: Sodium 136, Potassium 3.1 L, Chloride 102, Carbon Dioxide 24.0, Anion Gap 10, BUN 47 H, Creatinine 1.55 H, Est GFR (MDRD) Af Amer 41 L, Est GFR (MDRD) Non-Af 34 L, BUN/Creatinine Ratio 30.3 H, Glucose 248 H, Calcium 8.2 L, Triglycerides 134, Cholesterol 120, LDL Cholesterol 26, VLDL Cholesterol 27, HDL Cholesterol 67 Rhythm: Sinus rhythm EKG: Sinus rhythm; PVCs; nonspecific ST/T wave abnormality Echocardiogram from 11/24/2018: Interpretation Summary The study was technically difficult. Contrast injection was performed. Left ventricular systolic function is normal. The estimated ejection fraction is 65 %. The left atrium is mildly enlarged. Mild (1+) mitral valve insufficiency. Trivial tricuspid valve insufficiency. Trivial pulmonic valve insufficiency. Unable to estimate RV systolic pressure/pulmonary artery pressure due to technically difficult study. No evidence for diastolic dysfunction. Echocardiogram: 02-05-2021 Interpretation Summary Normal LV size. Left ventricular systolic function is normal. The estimated ejection fraction is 65 %. Stage 1 diastolic dysfunction. ? Nuclear stress test from 03/24/2019: Conclusion: Normal pharmacologic myocardial perfusion stress test. Preserved ejection fraction. Small apical infarct cannot be excluded. Stress Test Report Date: 07-17-2021 Procedure: Pharmacologic stress nuclear imaging study? Indications: Shortness of breath/dyspnea on exertion; CAD; PCI; CABG; PAF Consent: Per the patient Procedure: The patient underwent pharmacologic (Regadenoson 0.4mg ) evaluation with a peak heart rate of 64 beats per minute (46%predicted maximal heart rate) and a peak blood pressure of 142/74 mmHg. The baseline ECG demonstrated sinus rhythm.? The peak pharmacologic ECG demonstrated no obvious ECG changes. There were no cardiac dysrhythmias pretest, during pharmacologic infusion, or recovery. There was no complaint of chest discomfort during pharmacologic infusion or recovery. The examination was discontinued secondary to completion of protocol. Impression: 1.? Pharmacologic (Regadenoson) evaluation 2.? Peak pharmacologic ECG with no obvious ECG changes. 3.? There were no cardiac dysrhythmias pretest, during pharmacologic infusion, or recovery. 4.? Nuclear images pending Myocardial perfusion imaging study: Technique: The patient was injected with 12.0 millicuries of technetium 99m Cardiolite and subsequently rest SPECT Cardiolite nuclear imaging was obtained in the horizontal long, vertical long, and short axis views. The patient underwent pharmacologic (Regadenoson) evaluation with a peak heart rate of 64 beats per minute (47% percent predicted maximal heart rate) and a peak blood pressure of 142/74 mmHg. The patient was injected with 34.3 millicuries of technetium 99m Cardiolite and subsequently stress SPECT Cardiolite nuclear imaging was obtained in the horizontal long, vertical long, and short axis views.? A gated Cardiolite study at peak stress was obtained. Interpretation: Rest and stress SPECT Cardiolite nuclear imaging status post realignment, normalization, and attenuation correction demonstrate status post stress and area of subtle diminished tracer uptake near the distal anterior/anteroapical segments.? There are similar type findings on the stress polar maps.? There is end systolic thickening and brightening.? The gated Cardiolite study demonstrates myocardial thickening and inward wall motion.? The reported LVEF is 72%. Impression: 1.? Rest and stress SPECT current nuclear imaging demonstrate the appearance of subtle diminished tracer uptake near the distal anterior/anteroapical segment status post stress potentially compatible with an area of stress-induced myocardial ischemia although an element of soft tissue attenuation/artifact cannot necessarily be excluded. 2.? The gated Cardiolite study reports an LVEF of 72%. Cardiac catheterization from 08/10/2019: CONCLUSIONS Right heart pressures? - borderline to mildly elevated RVSP The patient has pulmonary hypertension which is borderline to mild with respect to PASP Intracardiac shunting: None Normal Left Ventricular End Diastolic Pressure [place] Multivessel CAD LCX OM1: stent: occluded SOTO to LAD: patent SVG to DX1: patent SVG to OM1: occluded: chronic Right to Left Collateral flow: faint Case discussed / reviewed with Familia Patton MD of Interventional Cardiology RECOMMENDATIONS Risk factor modification Medical therapy CORONARY ANGIOGRAPHY DOMINANCE:? Right Dominant LEFT HEART ASSESSMENT Left Ventricular Ejection Fraction: Not assessed Normal Left Ventricular End Diastolic Pressure LVEDP: 9 mmHg RIGHT HEART ASSESSMENT Thermal CO: 5.22? Thermal CI: 2.93 Yasmin CO: 7.02? Yasmin CI: 3.94 PW: 13/14? 8 PA: 34/9? 19 RV: 30/2? 6 RA: 2/7? 3 PVR: 169? SVR: 1140 Aortic Valve Area: >3.50 Aortic Valve Index: 1.97? Aortic Valve Mean Gradient: 14.7 Mitral Valve Area: 3.31 Mitral Valve index: 1.86? Mitral Valve Mean Gradient: 13.7 Right Heart pressures: borderline / mildly elevated RVSP Pulmonary Hypertension: borderline mildly elevated PASP Intracardiac shunting: None LEFT MAIN: proximal: 25 % Stenosis LEFT ANTERIOR DESCENDING ARTERY: PROX LAD: Moderate calcification, eccentric: 85 % Stenosis MID LAD: to distal vessel: fills from competitive flow / predominantly SOTO graft flow DIAGONAL 1: Proximal - fills from antegrade flow and SVG graft flow CIRCUMFLEX ARTERY: PROX CIRC: Moderate calcification, 50 % Stenosis MID CIRC: Previously placed stent is patent with instent restenosis: 25% (continuing on as a small caliber vessel) OM 1: Proximal - Previously placed stent is occluded RIGHT CORONARY ARTERY: Mild luminal irregularities GRAFTS: ?SOTO graft to the Mid LAD is patent with no angiographically significant appearing disease distal to the anastomosis Saphenous Vein graft to the 1st Diagonal is patent with no angiographically significant appearing disease distal to the anastomosis Saphenous Vein graft to the 1st OM is totally occluded (chronic / not reevaluated during this examination) COLLATERAL FLOW: Collateral flow from Right to Left (faint) PCI 12/2018: Successful PCI with Drug eluting stent and PTCA to the mLCx Abdomen U/S: 01/14/2020 FINDINGS: Spleen: The spleen measures 9.6 cm x 3.5 cm x 3.8 cm.? It is of homogeneous echotexture. Left Kidney:? Normal size of the left kidney.? The left kidney measures 9.4 cm x 5 cm x 4.4 cm.? Normal renal cortex.? The left cortex measures 1.5 cm. 2 renal cysts are seen.? The larger is in the midpole and measures 1.9 cm x 2.1 cm x 1.9 cm.? The previously seen solid nodule is not seen at this time.? There is no right hydronephrosis. US/Abdomen Limited IMPRESSION: No evidence of splenomegaly. Stable right renal cysts. The previously seen hypoechoic nodule in the left kidney is not seen at this time. ? Electronically Signed: Sai Calhoun, at 10:19 EST PFTs: 07/04/2019 INTRODUCTION: The patient is an 83-year-old female that presents for pulmonary function studies secondary to a diagnosis of COPD.? Respiratory therapy reports good patient effort.? Bronchodilators were used during testing. INTERPRETATION: Forced expiration spirometry demonstrates no evidence of a large airways obstructive ventilatory defect.? There was no significant response to aerosolized bronchodilators.? Spirograms are of good quality and plateau normally.? Body plethysmography was performed and reveals a decreased TLC to 3.6 L, 80% of predicted, indicative of a mild restrictive ventilatory impairment.? Diffusing capacity by single breath CO is within normal limits. IMPRESSION: Isolated mild restrictive ventilatory impairment with preserved diffusing capacity. Radiography Diagnostic Testing: Radiology Impression Venous Duplex 09/21/21 19:13 IMPRESSION: Normal venous Doppler ultrasound of the bilateral lower extremities. Electronically Signed: Jose Luis Sauceda MD at 22:08 EDT , Chest X-Ray 09/21/21 20:01 IMPRESSION: No acute disease Electronically Signed: Jose Luis Sauceda MD at 21:10 EDT ,
--- NOTE | 2021-09-22 14:47 | CASEMGMT ---
Addendum entered and electronically signed by Linn Hughes RN 09/22/21 19:15: Discussed palliative care services with pt and her spouse who both expressed interest. Will follow-up with providers for agreement/order. Alexandra Hughes RN CM Original Note: Face to Face with patient for initial transition planning/care coordination assessment. RUTHIE PINZON introduced self and role at [facility], voices understanding. Pt alert and on bipap. Pt's spouse at bedside. Care providers, pharmacy, and demographics verified. PCP: Luann Specialists: King Uriostegui Zachary, Lee Preferred Pharmacy: [facility] Insurance: [facility] Prescription Benefit: Yes LNOK: spouse, Cletuc Living Arrangements: pt lives in independent single story home at [facility]. Pt states she was independent with ADLs including household tasks but does have a cleaning lady. Transportation: Pt and her spouse both drive DME: walk in tub, raised toilet seat, walker, Cpap ([employer]) Plan: Pt states she would like to return home at discharge. Discussed that given her current respiratory status we would continue to monitor her activity tolerance during her stay and determine what needs she may have at discharge. Discussed home health and SNF possibilities. Pt and spouse expressed understanding. Will continue to follow and assist with transition at discharge as needs identified. Alexandra Hughes RN CM
[2021-09-22] MEDS: Furosemide 500 MG in Empty Viaflex 50 mL 1 EACH CONT INF (15:39)
[2021-09-22] MEDS: Amiodarone 200 MG Tablet PO ×2 (16:28→22:03)
--- NOTE | 2021-09-22 16:32 | NURSING ---
BGT 55, gave patient helio crackers and apple juice.
[2021-09-22] MEDS: Glucerna Shake 120 ML LIQUID PO (17:21)
[2021-09-22 17:36] LABS: Bedside Glucose 55 mg/dL (74-106)
[2021-09-22] MEDS: APIXABAN 2.5 MG TABLET PO (22:02)
[2021-09-22] MEDS: Atorvastatin Calcium 40 MG Tablet PO (22:04)
[2021-09-22 23:25] LABS: Bedside Glucose 227 mg/dL (74-106)
[2021-09-23] VITALS (17 sets, daily range): BP systolic 113–155; BP diastolic 49–73; PULSE 64–81; RESP 12–20; TEMP 36.7–37.3; O2SAT 92–95
[2021-09-23] MEDS: oxyCODONE 5 MG Tablet PO ×4 (00:44→21:18)
--- NOTE | 2021-09-23 02:00 | CPS ---
pt took an hour break from bipap. back on at 2 am per RN
[2021-09-23 05:47] LABS: Absolute Lymphocyte Count 1.66 X10^3/uL (0.83-4.51); Absolute Neutrophil Count 10.2 X10^3/uL (2.0-7.7); Basophil# 0.03 X10^3/uL; Basophil% 0.2 % (0-1); Eosinophil# 0.12 X10^3/uL; Eosinophils% 0.9 % (0-5); Hemoglobin 11.8 g/dL (12.0-15.0); Lymphocyte # 1.66 X10^3/ul (0.83-4.51); Lymphocyte % 12.7 % (19-41); Mean Corp Hgb Conc 32.8 g/dL (32-36); Mean Corpuscular Hgb 30.3 pg (27.0-32.0); Mean Corpuscular Volume 92.3 fL (81-99); Mean Platelet Vol. 11.2 fl (6.2-12.0); Monocyte# 0.97 X10^3/uL; Monocyte% 7.4 % (0-10); NRBC Flagged by Analyzer 0 % (0-5); Neutrophil # 10.23 X10^3/uL (2.7-7.7); Platelet Count 213 K/mm3 (150-450); RBC Distribution Width CV 13.9 % (11.6-14.6); RBC Distribution Width SD 46.8 fl (35.1-43.9); White Blood Count 13.1 K/mm3 (4.4-11.0)
[2021-09-23] MEDS: hydrALAZINE 50 MG Tablet PO ×2 (06:04→21:21)
[2021-09-23] MEDS: Amiodarone 200 MG Tablet PO ×3 (06:04→21:19)
[2021-09-23] MEDS: Levothyroxine 50 MCG Tablet PO (06:04)
[2021-09-23 06:11] LABS: Anion Gap 10 (5-15); BUN 42 mg/dL (7-18); BUN/Creat Ratio 29.2 RATIO (10-20); Calcium,Total 8.2 mg/dL (8.5-10.1); Chloride 100 mmol/L (98-107); Creatinine, Serum 1.44 mg/dL (0.55-1.02); EST Glomerular Filtration Rate 37 mL/min (>60); Est Glom Filt Rate - Afr Amer 45 mL/min (>60); Estimated Creatinine Clearance 24.06 ml/min; Glucose 190 mg/dL (74-106); Potassium 3.1 mmol/L (3.5-5.1); Sodium Level 136 mmol/L (136-145)
[2021-09-23] MEDS: Insulin Lispro 100 UNIT/ML INSULN.PEN SC ×2 (08:19→16:19)
[2021-09-23] MEDS: Insulin Lispro 100 UNIT/ML INSULN.PEN 35 UNIT SC ×2 (08:20→16:20)
[2021-09-23] MEDS: Insulin Glargine-YFGN 100 UNIT/ML Pen 70 UNIT SC (08:21)
[2021-09-23] MEDS: Potassium Chloride Oral Tablet 20 MEQ 40 MEQ PO (08:40)
[2021-09-23] MEDS: Gabapentin 300 MG Capsule PO ×2 (08:41→21:18)
[2021-09-23] MEDS: Cholecalciferol (VIT D3) 25 MCG TABLET (1,000 UNITS) PO (08:42)
[2021-09-23] MEDS: DULoxetine Hcl 20 MG Capsule PO (08:43)
[2021-09-23] MEDS: Aspirin E.C. 81 MG Tablet PO (08:43)
[2021-09-23] MEDS: Tolterodine Tartrate 2 MG CAP.SA PO (08:43)
[2021-09-23] MEDS: APIXABAN 2.5 MG TABLET PO ×2 (08:44→21:18)
[2021-09-23] MEDS: Glucerna Shake 120 ML LIQUID PO ×4 (08:44→21:25)
[2021-09-23] MEDS: Metoprolol Tartrate 25 MG Tablet PO ×2 (08:45→21:20)
[2021-09-23] MEDS: Clopidogrel Bisulfate 75 MG Tablet PO (08:45)
[2021-09-23] MEDS: Pantoprazole Sodium 40 MG Tablet PO (08:46)
[2021-09-23] MEDS: Ranolazine 500 MG Tablet PO ×2 (08:46→21:21)
[2021-09-23 09:26] LABS: Bedside Glucose 240 mg/dL (74-106)
--- NOTE | 2021-09-23 11:31 | PCM.PN.CARD ---
Subjective Subjective The patient states she is breathing somewhat better today. Objective Data Vital Signs: Vital Signs Temp Pulse Resp BP Pulse Ox O2 Del Method O2 Flow Rate 99.0 F 81 18 134/56 H 92 Nasal Cannula 5 09/23/21 08:26 09/23/21 08:45 09/23/21 08:26 09/23/21 08:45 09/23/21 08:26 09/23/21 08:29 09/23/21 10:16 FiO2 40 09/23/21 03:00 Oxygen Flow Rate (L/min) 5 Oxygen Delivery Method Nasal Cannula Weight: 170 lb 13.732 oz Body Mass Index (BMI) 30.4 Intake & Output: Intake and Output for Last 24 Hours 09/21/21 09/22/21 09/23/21 23:59 23:59 23:59 Intake Total 940 / 1190 870 / 870 Output Total 1575 / 1575 2150 / 2150 Balance -635 / -385 -1280 / -1280 Lab / Micro Data Result Diagrams: 09/23/21 05:20 09/23/21 05:20 Labs: Laboratory Results - last 24 hr 09/22/21 11:28: POC Glucose 322 H 09/22/21 16:25: POC Glucose 55 L 09/22/21 22:08: POC Glucose 227 H 09/23/21 05:20: WBC 13.1 H, RBC 3.90 L, Hgb 11.8 L, Hct 36.0 L, MCV 92.3, MCH 30.3, MCHC 32.8, RDW Std Deviation 46.8 H, RDW Coeff of Laquita 13.9, Plt Count 213, MPV 11.2, Immature Gran % (Auto) 0.800, Neut % (Auto) 78.0 H, Lymph % (Auto) 12.7 L, [place] % (Auto) 7.4, Eos % (Auto) 0.9, Baso % (Auto) 0.2, Absolute Neuts (auto) 10.2 H, Absolute Lymphs (auto) 1.66, Nucleated RBC % 0 09/23/21 05:20: Sodium 136, Potassium 3.1 L, Chloride 100, Carbon Dioxide 26.0, Anion Gap 10, BUN 42 H, Creatinine 1.44 H, Estim Creat Clear Calc 24.06, Est GFR (MDRD) Af Amer 45 L, Est GFR (MDRD) Non-Af 37 L, BUN/Creatinine Ratio 29.2 H, Glucose 190 H, Calcium 8.2 L 09/23/21 08:18: POC Glucose 240 H Cardiology Labs/Tests 09/23/21 05:20: WBC 13.1 H, RBC 3.90 L, Hgb 11.8 L, Hct 36.0 L, MCV 92.3, MCH 30.3, MCHC 32.8, Plt Count 213, MPV 11.2, Immature Gran % (Auto) 0.800, Neut % (Auto) 78.0 H, Lymph % (Auto) 12.7 L, [place]yer % (Auto) 7.4, Eos % (Auto) 0.9, Baso % (Auto) 0.2, Absolute Neuts (auto) 10.2 H, Nucleated RBC % 0 09/23/21 05:20: Sodium 136, Potassium 3.1 L, Chloride 100, Carbon Dioxide 26.0, Anion Gap 10, BUN 42 H, Creatinine 1.44 H, Est GFR (MDRD) Af Amer 45 L, Est GFR (MDRD) Non-Af 37 L, BUN/Creatinine Ratio 29.2 H, Glucose 190 H, Calcium 8.2 L Rhythm: Sinus rhythm Physical Exam Const alert, oriented x3 and no apparent distress Orientation / Consciousness: awake HEENT normocephalic, head/scalp atraumatic and hearing grossly normal bilaterally Eyes PERRL, conjunctivae normal and no scleral icterus Neck full ROM, supple and no JVD Chest Chest: midline sternotomy incision Resp Auscultation: diminished lung sounds bilateral (Somewhat improved compared to yesterday) lower Cardio regular rate, regular rhythm, S1 normal heart sound and S2 normal heart sound GI normal to inspection, nondistended, normoactive bowel sounds Extremity General Extremity: edema bilateral lower extremity (L > R: Improved compared to yesterday) Details: mild Skin General Skin Exam: ecchymosis Assessment & Plan Assessment/Plan (1) Abnormal cardiac enzyme level: PLAN: The patient has mildly elevated cardiac enzymes. They have not significantly changed with respect to an increase or decrease. These enzymes may be secondary to the patient's atrial fibrillation and acute on chronic heart failure with preserved ejection fraction superimposed upon her underlying chronic cardiovascular disease process. At the present time her ECG is demonstrated no acute ST/T wave abnormalities. It would not be unreasonable to reassess the patient's ventricular wall motion and systolic function for any significant changes with a transthoracic echocardiogram. The patient has undergone a recent pharmacologic stress nuclear imaging study with the findings as noted. She was not felt to be an ideal candidate for a return trip to the cardiac catheterization laboratory based upon concerns of her gastrointestinal bleeding process at the time and not being able to remain on antiplatelet therapy or anticoagulant therapy. This can be reconsidered depending upon the patient's clinical and other comorbidities etc. (2) PAF (paroxysmal atrial fibrillation): PLAN: She has a history of paroxysmal atrial fibrillation. At the present time she appears to be in sinus rhythm. She will continue rate control therapy. She will initiate antiarrhythmic therapy with amiodarone therapy. She will continue anticoagulant therapy as deemed appropriate. (3) Acute on chronic heart failure with preserved ejection fraction (HFpEF): PLAN: The patient appears to have findings concerning for acute on chronic heart failure with preserved ejection fraction. She is being monitored. She has undergone laboratory evaluation, ECG evaluation, and radiologic studies. At the moment it appears prudent to continue medical therapy with diuretic therapy. It appears her pulse dose furosemide therapy has been altered to IV continuous infusion furosemide therapy. Her urine output has increased. She does appear to be in respiratory symptoms. Her clinical course as well as her renal function will need to be followed during this time. (4) CAD (coronary artery disease): PLAN: Again the patient has a history of underlying CAD. She has undergone previous PCI and CABG. Her most recent diagnostic cardiac catheterization is noted. At the moment she will continue to be monitored and followed. She will continue medical therapy as tolerated. She will proceed with further noninvasive cardiovascular evaluation with a transthoracic echocardiogram to reassess her left ventricular wall motion and systolic function. Depending upon her clinical course, her comorbidities, etc., she may need to be reconsidered for reassessment in the cardiac catheterization laboratory. (5) Presence of stent in coronary artery: PLAN: The patient has a history of PCI. Her most recent cardiac catheterization report is noted. (6) History of coronary artery bypass graft x 3: PLAN: The patient has a history of CABG. She has undergone previous cardiac catheterization. Based upon that study it appears that her SVG to the first OM was considered occluded. (7) Carotid stenosis, left: PLAN: The patient has a history of carotid artery disease as well. She will need to continue medical management. (8) Pure hypercholesterolemia: PLAN: She should continue medical therapy as best as tolerated. (9) Essential hypertension: PLAN: Her blood pressure will need to be followed for any significant changes that warrant alteration in her medical therapy. (10) Chronic renal failure, stage 3 (moderate): QUALIFIERS: Chronic kidney disease stage 3 subtype: stage 3b (GFR 30-44) Qualified Code(s): N18.32 - Chronic kidney disease, stage 3b PLAN: Her renal insufficiency does need to be taken into consideration with respect to her medications as well as any future invasive cardiovascular studies such as cardiac catheterization requiring IV contrast. This is based upon the concerns of potential IV contrast related nephropathy and worsening renal function. (11) Leukocytosis: PLAN: The patient does have leukocytosis. The etiology is unclear as to whether this is a leukemoid reaction or related to an underlying infectious disease process or a noninfectious disease process. This may need further evaluation by internal medicine. (12) Lower GI bleeding: PLAN: The patient has had a recent history of lower GI bleeding per rectum. This led to the recommendation to place her antiplatelet therapy on hold pending further gastrointestinal evaluation. Her spouse states that he did not place her antiplatelet therapy on hold. The patient states she has not yet had her endoscopy procedures. In the interim she states her bleeding appears to have stopped. This issue is still uncertain as to what transpired with the patient and whether or not she has other gastrointestinal related issues that contribute to her ongoing clinical course as well as concerns with respect to her medications especially antiplatelet and anticoagulant therapy. While she is on her antiplatelet and anticoagulant therapy she will need to be monitored for any obvious recurrent hemorrhagic issues. (13) Hypothyroidism: QUALIFIERS: Hypothyroidism type: acquired Qualified Code(s): E03.9 - Hypothyroidism, unspecified PLAN: The patient has a history of hypothyroidism. She will continue her medical management. (14) Broken ribs: PLAN: The patient has a history of rib fractures. This can lead to her chronic chest discomfort. However, she is concerned she had chest discomfort prior to her fall rib fractures as well. (15) Leg pain: PLAN: The patient continues to complain of left lower extremity pain and not being able to bear weight on the left lower extremity. She states she was evaluated by her local orthopedic surgery group with outpatient radiologic studies. She states she was told there was no fractures. If her symptoms persist she may need further evaluation and care per internal medicine and/or orthopedic surgery. Addt'l Comments The patient's case was discussed and reviewed with the patient and Dr. Cristobal. This note was generated using a voice recognition system and there may be incorrect words, spelling or punctuation that were not noted when reviewing the office note prior to saving.
[2021-09-23] MEDS: proCHLORPERazine 10 MG/2 ML Vial 5 MG IV (12:04)
[2021-09-23 12:35] LABS: Bedside Glucose 113 mg/dL (74-106)
--- NOTE | 2021-09-23 13:02 | PN.HOSP_ITS ---
Subjective Subjective Patient seen and examined. She says she is feeling better today, and her shortness of breath is improving. She denies any fever, chills, cough, chest pain, palpitations, dizziness, nausea, vomiting or diarrhea. Review of systems is otherwise negative. Objective Data Objective Data Vital Signs: Vital Signs Temp Pulse Resp BP Pulse Ox O2 Del Method O2 Flow Rate 99.0 F 81 18 134/56 H 92 Nasal Cannula 5 09/23/21 08:26 09/23/21 08:45 09/23/21 08:26 09/23/21 08:45 09/23/21 08:26 09/23/21 08:29 09/23/21 10:16 FiO2 40 09/23/21 03:00 Oxygen Flow Rate (L/min) 5 Oxygen Delivery Method Nasal Cannula Weight: 170 lb 13.732 oz Body Mass Index (BMI) 30.4 Intake & Output: Intake and Output for Last 24 Hours 09/21/21 09/22/21 09/23/21 23:59 23:59 23:59 Intake Total 940 / 1190 870 / 870 Output Total 1575 / 1575 2150 / 2150 Balance -635 / -385 -1280 / -1280 Lab / Micro Data Result Diagrams: 09/23/21 05:20 09/23/21 05:20 Labs: Laboratory Results - last 24 hr 09/22/21 11:28: POC Glucose 322 H 09/22/21 16:25: POC Glucose 55 L 09/22/21 22:08: POC Glucose 227 H 09/23/21 05:20: WBC 13.1 H, RBC 3.90 L, Hgb 11.8 L, Hct 36.0 L, MCV 92.3, MCH 30.3, MCHC 32.8, RDW Std Deviation 46.8 H, RDW Coeff of Laquita 13.9, Plt Count 213, MPV 11.2, Immature Gran % (Auto) 0.800, Neut % (Auto) 78.0 H, Lymph % (Auto) 12.7 L, [place] % (Auto) 7.4, Eos % (Auto) 0.9, Baso % (Auto) 0.2, Absolute Neuts (auto) 10.2 H, Absolute Lymphs (auto) 1.66, Nucleated RBC % 0 09/23/21 05:20: Sodium 136, Potassium 3.1 L, Chloride 100, Carbon Dioxide 26.0, Anion Gap 10, BUN 42 H, Creatinine 1.44 H, Estim Creat Clear Calc 24.06, Est GFR (MDRD) Af Amer 45 L, Est GFR (MDRD) Non-Af 37 L, BUN/Creatinine Ratio 29.2 H, G lucose 190 H, Calcium 8.2 L 09/23/21 08:18: POC Glucose 240 H 09/23/21 11:19: POC Glucose 113 H Physical Exam Const alert, oriented x3 and no apparent distress HEENT head/scalp atraumatic, moist oral mucous membranes and oropharynx normal Head and Scalp: normocephalic Mouth: oral and palatal mucosa normal Eyes PERRL, EOMs intact bilaterally and conjunctivae normal Neck no lymphadenopathy and supple Resp Resp Narrative: tachypneic, bibasilar crackles. No wheezing. On 5L of oxygen by nasal canula Cardio regular rate, regular rhythm, S1 normal heart sound, S2 normal heart sound and n o murmurs GI normal to inspection, nondistended, normoactive bowel sounds, soft to palpation, non-tender and non-distended Extremity normal to inspection and full ROM Extremity Narrative: mild 1+ bipedal edema Neuro oriented x3, CN's II-XII intact bilaterally, moves all extremities and no focal motor deficits Sensorium / Orientation: awake and alert Motor Exam: strength 5/5 throughout Psych affect normal Assessment & Plan Assessment/Plan (1) Acute on chronic heart failure with preserved ejection fraction (HFpEF): (2) Congestive heart failure: (3) New onset atrial fibrillation: (4) Hypoxia: PLAN: Plan #Acute on chronic HFpEF * on 5L of oxygen by nasal canula; doesnt wear oxygen at home * diurese with IV lasix drip * monitor intake and output. Fluid restriction to 1500cc daily. * cardiology on board. * 2D echo done in January 2021 showed EF of 65% with stage I diastolic dysfunction no regional wall motion abnormalities noted. * 2D echo ordered. * #Acute hypoxic respiratory failure due to acute on chronic HFpEF * on 5L of oxygen, being transitioned to BIPAP due to worsening respiratory failure and increased work of breathing. * breathing treatment with bronchodilators * titrate oxygen to maintain sats >90% * expect to improve with diuresis * #New onset A. fib with RVR * RVR has resolved. * Was given a bolus of Cardizem in the ED and she flipped back into normal sinus rhythm. * Currently on metoprolol 25 mg twice daily. * Maycol vas score is 6 * being started on PO amiodraone also * on eliquis 2.5mg bid * #Hypokalemia: Potassium is 3.1. Will replace and trend. #CAD s/p CABG: On Imdur, metoprolol and lisinopril as well as aspirin and statin as well as Plavix #Hypertension: On hydralazine and lisinopril as well as metoprolol #Hypothyroidism: On Synthroid #History of renal cancer: Stable. #CKD stage IIIb: Creatinine is 1.44 which is fairly around his baseline. Will monitor. #Type 2 diabetes mellitus: On Lantus 72 units nightly. Insulin sliding scale. Accu-Cheks ACH S. #Hyperlipidemia: On statin #History of recent GI bleed: * Had rectal bleeding in June 2021. Plavix was held. She was discharged home and follow-up with GI on outpatient basis. That she did not and she is to have EGD and colonoscopy on outpatient basis but has not had it yet. * Follow-up with GI on outpatient basis. * DVT prophylaxis:on eliquis 2.5mg bid Charges/Coding Visit Charges Inpatient E&M: 60825 Subs Hosp L3
[2021-09-23 17:00] LABS: Bedside Glucose 200 mg/dL (74-106)
[2021-09-23] MEDS: Furosemide 500 MG in Empty Viaflex 50 mL 1 EACH CONT INF (19:53)
[2021-09-23] MEDS: Atorvastatin Calcium 40 MG Tablet PO (21:20)
[2021-09-23 22:16] LABS: Bedside Glucose 92 mg/dL (74-106)
[2021-09-23 22:16] LABS: Bedside Glucose 67 mg/dL (74-106)
[2021-09-24] VITALS (24 sets, daily range): BP systolic 138–161; BP diastolic 55–99; PULSE 64–82; RESP 12–20; TEMP 36.4–36.9; O2SAT 91–96
[2021-09-24 05:48] LABS: Absolute Lymphocyte Count 1.78 X10^3/uL (0.83-4.51); Absolute Neutrophil Count 10.4 X10^3/uL (2.0-7.7); Basophil# 0.03 X10^3/uL; Basophil% 0.2 % (0-1); Eosinophil# 0.36 X10^3/uL; Eosinophils% 2.6 % (0-5); Hematocrit 35.3 % (37-47); Hemoglobin 11.9 g/dL (12.0-15.0); Lymphocyte # 1.78 X10^3/ul (0.83-4.51); Lymphocyte % 13.1 % (19-41); Mean Corp Hgb Conc 33.7 g/dL (32-36); Mean Corpuscular Volume 91.9 fL (81-99); Mean Platelet Vol. 11.6 fl (6.2-12.0); Monocyte# 1.01 X10^3/uL; Monocyte% 7.4 % (0-10); NRBC Flagged by Analyzer 0 % (0-5); Neutrophil # 10.37 X10^3/uL (2.7-7.7); Neutrophil % 76.2 % (47-70); Platelet Count 211 K/mm3 (150-450); RBC Distribution Width CV 13.6 % (11.6-14.6); Red Blood Count 3.84 M/mm3 (4.2-5.4); White Blood Count 13.6 K/mm3 (4.4-11.0)
[2021-09-24] MEDS: Levothyroxine 50 MCG Tablet PO (06:10)
[2021-09-24] MEDS: Amiodarone 200 MG Tablet PO ×3 (06:10→21:41)
[2021-09-24] MEDS: oxyCODONE 5 MG Tablet PO ×4 (06:11→21:39)
[2021-09-24] MEDS: hydrALAZINE 50 MG Tablet PO ×3 (06:11→21:40)
[2021-09-24 06:21] LABS: Anion Gap 9 (5-15); BUN 47 mg/dL (7-18); Calcium,Total 8.4 mg/dL (8.5-10.1); Chloride 95 mmol/L (98-107); Creatinine, Serum 1.62 mg/dL (0.55-1.02); EST Glomerular Filtration Rate 32 mL/min (>60); Est Glom Filt Rate - Afr Amer 39 mL/min (>60); Estimated Creatinine Clearance 21.38 ml/min; Glucose 229 mg/dL (74-106); Potassium 3.3 mmol/L (3.5-5.1); Sodium Level 133 mmol/L (136-145)
[2021-09-24 07:05] LABS: Bedside Glucose 58 mg/dL (74-106)
[2021-09-24 07:05] LABS: Bedside Glucose 51 mg/dL (74-106)
[2021-09-24] MEDS: Potassium Chloride Oral Tablet 20 MEQ 40 MEQ PO (08:25)
[2021-09-24] MEDS: Insulin Lispro 100 UNIT/ML INSULN.PEN SC ×4 (08:25→21:41)
[2021-09-24] MEDS: Insulin Lispro 100 UNIT/ML INSULN.PEN 35 UNIT SC ×2 (08:26→11:51)
[2021-09-24] MEDS: Insulin Glargine-YFGN 100 UNIT/ML Pen 70 UNIT SC (08:27)
[2021-09-24] MEDS: Glucerna Shake 120 ML LIQUID PO ×4 (08:32→21:39)
[2021-09-24] MEDS: DULoxetine Hcl 20 MG Capsule PO (08:34)
[2021-09-24] MEDS: Tolterodine Tartrate 2 MG CAP.SA PO (08:34)
[2021-09-24] MEDS: Aspirin E.C. 81 MG Tablet PO (08:34)
[2021-09-24] MEDS: Gabapentin 300 MG Capsule PO ×2 (08:36→21:41)
[2021-09-24] MEDS: Clopidogrel Bisulfate 75 MG Tablet PO (08:37)
[2021-09-24] MEDS: Metoprolol Tartrate 25 MG Tablet PO ×2 (08:37→21:41)
[2021-09-24] MEDS: Pantoprazole Sodium 40 MG Tablet PO (08:37)
[2021-09-24] MEDS: Ranolazine 500 MG Tablet PO ×2 (08:38→21:40)
[2021-09-24] MEDS: APIXABAN 2.5 MG TABLET PO ×2 (08:39→21:40)
--- NOTE | 2021-09-24 09:50 | PCM.PN.CARD ---
Subjective Subjective The patient states that overall her breathing continues to improve. She notes improvement in her lower extremity edema. She still has concerns of discomfort in her left lower extremity from just above the knee down. Objective Data Vital Signs: Vital Signs Temp Pulse Resp BP Pulse Ox O2 Del Method O2 Flow Rate 97.8 F 75 16 138/99 H 93 Nasal Cannula 4 09/24/21 08:19 09/24/21 08:37 09/24/21 08:19 09/24/21 08:37 09/24/21 08:54 09/24/21 08:54 09/24/21 08:54 FiO2 40 09/24/21 01:35 Oxygen Flow Rate (L/min) 4 Oxygen Delivery Method Nasal Cannula Weight: 167 lb 1.766 oz Body Mass Index (BMI) 30.4 Intake & Output: Intake and Output for Last 24 Hours 09/22/21 09/23/21 09/24/21 23:59 23:59 23:59 Intake Total 940 / 1190 1378.23 / 1498.23 220 / 220 Output Total 1575 / 1575 2675 / 2975 1275 / 1275 Balance -635 / -385 -1296.77 / -1476.77 -1055 / -1055 Lab / Micro Data Result Diagrams: 09/24/21 04:54 09/24/21 04:54 Labs: Laboratory Results - last 24 hr 09/23/21 11:19: POC Glucose 113 H 09/23/21 16:18: POC Glucose 200 H 09/23/21 21:09: POC Glucose 58 L 09/23/21 21:10: POC Glucose 51 L 09/23/21 21:27: POC Glucose 67 L 09/23/21 21:56: POC Glucose 92 09/24/21 04:54: WBC 13.6 H, RBC 3.84 L, Hgb 11.9 L, Hct 35.3 L, MCV 91.9, MCH 31.0, MCHC 33.7, RDW Std Deviation 46.0 H, RDW Coeff of Laquita 13.6, Plt Count 211, MPV 11.6, Immature Gran % (Auto) 0.500, Neut % (Auto) 76.2 H, Lymph % (Auto) 13.1 L, [place] % (Auto) 7.4, Eos % (Auto) 2.6, Baso % (Auto) 0.2, Absolute Neuts (auto) 10.4 H, Absolute Lymphs (auto) 1.78, Nucleated RBC % 0 09/24/21 04:54: Sodium 133 L, Potassium 3.3 L, Chloride 95 L, Carbon Dioxide 29.0, Anion Gap 9, BUN 47 H, Creatinine 1.62 H, Estim Creat Clear Calc 21.38, Est GFR (MDRD) Af Amer 39 L, Est GFR (MDRD) Non-Af 32 L, BUN/Creatinine Ratio 29.0 H, Glucose 229 H, Calcium 8.4 L Cardiology Labs/Tests 09/24/21 04:54: WBC 13.6 H, RBC 3.84 L, Hgb 11.9 L, Hct 35.3 L, MCV 91.9, MCH 31.0, MCHC 33.7, Plt Count 211, MPV 11.6, Immature Gran % (Auto) 0.500, Neut % (Auto) 76.2 H, Lymph % (Auto) 13.1 L, [place] % (Auto) 7.4, Eos % (Auto) 2.6, Baso % (Auto) 0.2, Absolute Neuts (auto) 10.4 H, Nucleated RBC % 0 09/24/21 04:54: Sodium 133 L, Potassium 3.3 L, Chloride 95 L, Carbon Dioxide 29.0, Anion Gap 9, BUN 47 H, Creatinine 1.62 H, Est GFR (MDRD) Af Amer 39 L, Est GFR (MDRD) Non-Af 32 L, BUN/Creatinine Ratio 29.0 H, Glucose 229 H, Calcium 8.4 L Rhythm: Sinus rhythm ECHO: Pending Physical Exam Const alert, oriented x3 and no apparent distress Orientation / Consciousness: awake HEENT normocephalic, head/scalp atraumatic and hearing grossly normal bilaterally Eyes PERRL, conjunctivae normal and no scleral icterus Neck full ROM, supple and no JVD Chest Chest: midline sternotomy incision Resp Auscultation: diminished lung sounds bilateral (Somewhat improved compared to yesterday) lower Cardio regular rate, regular rhythm, S1 normal heart sound and S2 normal heart sound GI normal to inspection, nondistended, normoactive bowel sounds Extremity no pedal edema Skin General Skin Exam: ecchymosis Assessment & Plan Assessment/Plan (1) Abnormal cardiac enzyme level: PLAN: The patient has mildly elevated cardiac enzymes. They have not significantly changed with respect to an increase or decrease. These enzymes may be secondary to the patient's atrial fibrillation and acute on chronic heart failure with preserved ejection fraction superimposed upon her underlying chronic cardiovascular disease process. At the present time her ECG is demonstrated no acute ST/T wave abnormalities. It would not be unreasonable to reassess the patient's ventricular wall motion and systolic function for any significant changes with a transthoracic echocardiogram. The patient has undergone a recent pharmacologic stress nuclear imaging study with the findings as noted. She was not felt to be an ideal candidate for a return trip to the cardiac catheterization laboratory based upon concerns of her gastrointestinal bleeding process at the time and not being able to remain on antiplatelet therapy or anticoagulant therapy. This can be reconsidered depending upon the patient's clinical and other comorbidities etc. (2) PAF (paroxysmal atrial fibrillation): PLAN: She has a history of paroxysmal atrial fibrillation. At the present time she appears to be in sinus rhythm. She will continue rate control therapy. She will initiate antiarrhythmic therapy with amiodarone therapy. She will continue anticoagulant therapy as deemed appropriate. (3) Acute on chronic heart failure with preserved ejection fraction (HFpEF): PLAN: The patient appears to have findings concerning for acute on chronic heart failure with preserved ejection fraction. She is being monitored. She has undergone laboratory evaluation, ECG evaluation, and radiologic studies. At the moment it appears prudent to continue medical therapy with diuretic therapy. It appears her pulse dose furosemide therapy has been altered to IV continuous infusion furosemide therapy. Her urine output has increased. She does appear to be in respiratory symptoms. Her clinical course as well as her renal function will need to be followed during this time. (4) CAD (coronary artery disease): PLAN: Again the patient has a history of underlying CAD. She has undergone previous PCI and CABG. Her most recent diagnostic cardiac catheterization is noted. At the moment she will continue to be monitored and followed. She will continue medical therapy as tolerated. She will proceed with further noninvasive cardiovascular evaluation with a transthoracic echocardiogram to reassess her left ventricular wall motion and systolic function. Depending upon her clinical course, her comorbidities, etc., she may need to be reconsidered for reassessment in the cardiac catheterization laboratory. (5) Presence of stent in coronary artery: PLAN: The patient has a history of PCI. Her most recent cardiac catheterization report is noted. (6) History of coronary artery bypass graft x 3: PLAN: The patient has a history of CABG. She has undergone previous cardiac catheterization. Based upon that study it appears that her SVG to the first OM was considered occluded. (7) Carotid stenosis, left: PLAN: The patient has a history of carotid artery disease as well. She will need to continue medical management. (8) Pure hypercholesterolemia: PLAN: She should continue medical therapy as best as tolerated. (9) Essential hypertension: PLAN: Her blood pressure will need to be followed for any significant changes that warrant alteration in her medical therapy. (10) Chronic renal failure, stage 3 (moderate): QUALIFIERS: Chronic kidney disease stage 3 subtype: stage 3b (GFR 30-44) Qualified Code(s): N18.32 - Chronic kidney disease, stage 3b PLAN: Her renal insufficiency does need to be taken into consideration with respect to her medications as well as any future invasive cardiovascular studies such as cardiac catheterization requiring IV contrast. This is based upon the concerns of potential IV contrast related nephropathy and worsening renal function. (11) Leukocytosis: PLAN: The patient does have findings compatible with leukocytosis. The etiology is unclear as to whether this is a leukemoid reaction or related to an underlying infectious disease process or a noninfectious disease process. This may need further evaluation by internal medicine. (12) Lower GI bleeding: PLAN: The patient has had a recent history of lower GI bleeding per rectum. This led to the recommendation to place her antiplatelet therapy on hold pending further gastrointestinal evaluation. Her spouse states that he did not place her antiplatelet therapy on hold. The patient states she has not yet had her endoscopy procedures. In the interim she states her bleeding appears to have stopped. This issue is still uncertain as to what transpired with the patient and whether or not she has other gastrointestinal related issues that contribute to her ongoing clinical course as well as concerns with respect to her medications especially antiplatelet and anticoagulant therapy. While she is on her antiplatelet and anticoagulant therapy she will need to be monitored for any obvious recurrent hemorrhagic issues. (13) Hypothyroidism: QUALIFIERS: Hypothyroidism type: acquired Qualified Code(s): E03.9 - Hypothyroidism, unspecified PLAN: The patient has a history of hypothyroidism. She will continue her medical management. (14) Broken ribs: PLAN: The patient has a history of rib fractures. This can lead to her chronic chest discomfort. However, she is concerned she had chest discomfort prior to her fall rib fractures as well. (15) Leg pain: PLAN: The patient continues to complain of left lower extremity pain and not being able to bear weight on the left lower extremity. She states she was evaluated by her local orthopedic surgery group with outpatient radiologic studies. She states she was told there was no fractures. If her symptoms persist she may need further evaluation and care per internal medicine and/or orthopedic surgery. Addt'l Comments Overall, at the present time, the patient does appear to demonstrate improvement in her symptoms of shortness of breath and dyspnea status post diuresis therapy. At the moment she will continue her diuresis therapy. An echocardiogram has been requested to further evaluate her cardiac anatomy and physiology. This note was generated using a voice recognition system and there may be incorrect words, spelling or punctuation that were not noted when reviewing the office note prior to saving.
--- NOTE | 2021-09-24 10:43 | PN.HOSP_ITS ---
Documented by User: Cassi Boyd NP-Gilmer 09/24/21 11:01 Subjective Subjective Patient seen and examined. Patient sitting in bed no distress noted. Patient states that she is feeling mildly better however still feels short of breath. Currently on nasal cannula oxygen 4 L. Objective Data Objective Data Vital Signs: Vital Signs Temp Pulse Resp BP Pulse Ox O2 Del Method O2 Flow Rate 97.8 F 75 16 138/99 H 93 Nasal Cannula 4 09/24/21 08:19 09/24/21 08:37 09/24/21 08:19 09/24/21 08:37 09/24/21 08:54 09/24/21 08:54 09/24/21 08:54 FiO2 40 09/24/21 01:35 Oxygen Flow Rate (L/min) 4 Oxygen Delivery Method Nasal Cannula Weight: 167 lb 1.766 oz Body Mass Index (BMI) 30.4 Intake & Output: Intake and Output for Last 24 Hours 09/22/21 09/23/21 09/24/21 23:59 23:59 23:59 Intake Total 940 / 1190 1378.23 / 1498.23 220 / 220 Output Total 1575 / 1575 2675 / 2975 1275 / 1275 Balance -635 / -385 -1296.77 / -1476.77 -1055 / -1055 Lab / Micro Data Result Diagrams: 09/24/21 04:54 09/24/21 04:54 Labs: Laboratory Results - last 24 hr 09/23/21 11:19: POC Glucose 113 H 09/23/21 16:18: POC Glucose 200 H 09/23/21 21:09: POC Glucose 58 L 09/23/21 21:10: POC Glucose 51 L 09/23/21 21:27: POC Glucose 67 L 09/23/21 21:56: POC Glucose 92 09/24/21 04:54: WBC 13.6 H, RBC 3.84 L, Hgb 11.9 L, Hct 35.3 L, MCV 91.9, MCH 31.0, MCHC 33.7, RDW Std Deviation 46.0 H, RDW Coeff of Laquita 13.6, Plt Count 211, MPV 11.6, Immature Gran % (Auto) 0.500, Neut % (Auto) 76.2 H, Lymph % (Auto) 13.1 L, [place] % (Auto) 7.4, Eos % (Auto) 2.6, Baso % (Auto) 0.2, Absolute Neuts (auto) 10.4 H, Absolute Lymphs (auto) 1.78, Nucleated RBC % 0 09/24/21 04:54: Sodium 133 L, Potassium 3.3 L, Chloride 95 L, Carbon Dioxide 29.0, Anion Gap 9, BUN 47 H, Creatinine 1.62 H, Estim Creat Clear Calc 21.38, Est GFR (MDRD) Af Amer 39 L, Est GFR (MDRD) Non-Af 32 L, BUN/Creatinine Ratio 29.0 H, Glucose 229 H, Calcium 8.4 L Physical Exam Const alert, oriented x3 and no apparent distress HEENT head/scalp atraumatic and moist oral mucous membranes Head and Scalp: normocephalic Eyes conjunctivae normal and no scleral icterus Neck no lymphadenopathy and supple Resp normal respiratory effort Auscultation: crackles bilateral throughout Cardio regular rate, regular rhythm, S1 normal heart sound and S2 normal heart sound GI normal to inspection, nondistended, normoactive bowel sounds, soft to palpation and non-tender Extremity normal to inspection and full ROM General Extremity: edema bilateral lower extremity Details: moderate Neuro oriented x3, moves all extremities and no focal motor deficits Sensorium / Orientation: awake and alert Psych affect normal Assessment & Plan Assessment/Plan (1) Congestive heart failure: (2) New onset atrial fibrillation: PLAN: Plan 1. Acute hypoxic respiratory failure secondary to acute on chronic heart fa ilure with preserved EF -EF 65% -Continue Lasix drip -Continue to wean oxygen as tolerated, currently on 4 L nasal cannula -Cardiology following -Continue fluid restriction of 1500 mL daily with strict intake and output -Continue breathing treatments as ordered 2. New onset A. fib with RVR -Currently rate controlled and normal sinus rhythm -Continue metoprolol and amiodarone -Continue Eliquis -[id number] score 6 3. Hypokalemia -Potassium 3.3 -Potassium chloride 40 mEq p.o. x1 ordered -BMP daily 4. CAD status post CABG -Continue home medication regimen including Imdur, metoprolol, lisinopril, aspirin, statin, Plavix 5. Hypertension -Continue home medication regimen including hydralazine, lisinopril. -Vital signs per protocol, currently stable 6. Hypothyroidism -Continue Synthroid 7. Chronic kidney disease stage IIIb -currently stable, creatinine has at baseline -BMP daily 8. Diabetes mellitus type 2 -ACH S blood sugars with sliding scale insulin ordered -Continue Lantus 9. History of recent GI bleed -patient has not followed up with GI yet, plan for EGD and colonoscopy outpatient DVT prophylaxis-not indicated, chronically anticoagulated with Eliquis This patient was seen by Cassi Boyd NP-C under the supervision of Dr. West. 13 minutes spent in clinical coordination of patient's plan of care. Documented by User: Dr. Fe West MD 09/24/21 13:29 Objective Data Lab / Micro Data Result Diagrams: 09/24/21 04:54 09/24/21 04:54 Assessment & Plan Assessment/Plan (1) Congestive heart failure: (2) New onset atrial fibrillation: Charges/Coding Addendum Addendum: This patient was seen in conjunction with Familia Boyd NP. I have independently interviewed and examined the patient and reviewed pertinent historical, laboratory, and other data. I have reviewed her note and concur with her documentation Patient was seen and examined. She complains of pain in her left knee all the way to the ankle. She remained on the Lasix drip; has a negative balance of - 3.6 L. She is lost more than 2 kg over a week. Physical Exam: Gen: Comfortable, not pale, not jaundiced, remains on 4 L of oxygen CVS:HS I +II, regular, no murmurs RESP: Diminished at lung bases GI: BS present and normal, soft, nontender, no palpable organs EXT:No edema, tenderness on range of motion of the right knee and ankle ASSESSMENT: 1. Acute exacerbation of heart failure with preserved EF, EF 72% 2. Hypokalemia, replaced 3. Paroxysmal A. fib with RVR 4. Acute hypoxic respiratory failure 5. 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 Hypertension 7. Type II DM Plan: DC Lasix drip Switch to Lasix 40 mg IV twice daily Replace potassium, recheck labs in am Increase Lantus to 75 units, Premeal insulin to 40 units 3 times daily Continue to monitor blood glucose Continue on amiodarone Check x-ray of the knee Scheduled Tylenol 1000mg TID Time spent coordinating all aspects of patient's care, discussing with nursin minutes Visit Charges Inpatient E&M: 93788 Subs Hosp L2
[2021-09-24 10:55] LABS: Bedside Glucose 221 mg/dL (74-106)
[2021-09-24 12:15] LABS: Bedside Glucose 382 mg/dL (74-106)
--- NOTE | 2021-09-24 13:21 | CASEMGMT ---
Per Lucia RN CM, pt qualifies for palliative referral and is agreeable. Dr. West agreeable and order placed. Referral e-mailed to palliative. John HENDRICKS CM
--- NOTE | 2021-09-24 13:40 | RAD_ITS ---
STUDY: X-RAY - LEFT KNEE REASON FOR EXAM: Left knee pain, recent fall. TECHNIQUE: 3 view(s) of the knee. COMPARISON: Radiographs 06/14/2020. FINDINGS: Normal visualized distal femur. Normal visualized proximal tibia and fibula. Normal proximal tibiofibular articulation. Normal medial femorotibial compartment. Normal lateral femorotibial compartment. There is mild joint space narrowing of the patellofemoral articulation. There is a small joint effusion. There is vascular calcification. There are surgical clips at the posterior medial aspect of the distal thigh. RAD/Knee 3 Views IMPRESSION: Mild arthrosis of the patellofemoral compartment. Small joint effusion. Electronically Signed: Sai Holder MD at 15:00 EDT ,
--- NOTE | 2021-09-24 14:25 | ECHOD_ITS ---
Reason For Study: CHF Procedure This was a 2D Doppler, Color Flow transthoracic echocardiogram. Contrast injection was performed. Exam performed portable in patient room. Left Ventricle Normal LV size. Left ventricular systolic function is normal. The estimated ejection fraction is 70 %. Stage 2 diastolic dysfunction. No regional wall motion abnormalities noted. Right Ventricle Normal RV size. Normal systolic function. Atria The left atrium is mildly enlarged. Normal right atrium. No doppler evidence for ASD. Mitral Valve There is mild to moderate mitral annular calcification. Extension of the mitral annular calcification on the base of the posterior mitral valve leaflet. Mild (1+) mitral valve insufficiency. Tricuspid Valve Normal tricuspid valve. Trivial tricuspid valve insufficiency. Right ventricular systolic pressure estimated to be 39 mmHg. Aortic Valve Trisinus/trileaflet aortic valve. Normal aortic valve. Pulmonic Valve The pulmonic valve is not well visualized. Great Vessels Normal sized aortic root. Pericardium/Pleural No pericardial effusion. MMode/2D Measurements & Calculations LVIDd: 3.7 cm IVSd: 1.1 cm Ao root diam: 3.6 cm LVIDs: 2.1 cm LVPWd: 1.5 cm RVDd: 2.5 cm FS: 44.4 % LAV(MOD-bp): 61.5 ml LVAd ap4: 23.6 cm2 SV(MOD-sp4): 43.2 ml LAV(MOD-bp) Indexed: 34.4 ml/m2 LVLd ap4: 7.3 cm LAV(MOD-sp2): 57.9 ml EDV(MOD-sp4): 61.3 ml LAV(MOD-sp4): 62.8 ml EDV(sp4-el): 65.3 ml LVAs ap4: 11.1 cm2 LVLs ap4: 6.0 cm ESV(MOD-sp4): 18.1 ml ESV(sp4-el): 17.5 ml EF(MOD-sp4): 70.5 % EF(sp4-el): 73.2 % SV(sp4-el): 47.8 ml LA A4 area: 20.9 cm2 LA dimension(2D): 3.9 cm RA A4 area: 10.1 cm2 Time Measurements MV dec time: 0.27 sec Doppler Measurements & Calculations MV E max sumeet: 90.3 cm/sec Lat Peak E' Sumeet: 11.8 cm/sec Med Peak E' Sumeet: 4.8 cm/sec MV A max sumeet: 108.9 cm/sec E/E' lat: 7.6 E/E' med: 18.8 MV E/A: 0.83 MV V2 max: 104.4 cm/sec Ao V2 max: 156.9 cm/sec MV max P.4 mmHg MV dec slope: 348.2 cm/sec2 Ao max P.9 mmHg MV V2 mean: 63.7 cm/sec Ao V2 mean: 110.9 cm/sec MV mean P.9 mmHg Ao mean P.6 mmHg MV V2 VTI: 26.6 cm Ao V2 VTI: 34.0 cm LV V1 max: 95.7 cm/sec PA V2 max: 104.9 cm/sec TR max sumeet: 300.9 cm/sec LV V1 max P.7 mmHg TR max P.2 mmHg LV V1 mean P.2 mmHg LV V1 mean: 69.7 cm/sec LV V1 VTI: 21.1 cm ECHO/Echo Complete Interpretation Summary Left ventricular systolic function is normal. The estimated ejection fraction is 70 %. The left atrium is mildly enlarged. There is mild to moderate mitral annular calcification. Extension of the mitral annular calcification on the base of the posterior mitr al valve leaflet. Mild (1+) mitral valve insufficiency. Trivial tricuspid valve insufficiency. Right ventricular systolic pressure estimated to be 39 mmHg. Stage 2 diastolic dysfunction. Ordering Physician: Galileo Uriostegui MD Referring Physician: Fernando Kong Performed By: Zenaida Silva RCS
[2021-09-24] MEDS: Acetaminophen 500 MG Tablet 1000 MG PO ×2 (14:48→21:40)
--- NOTE | 2021-09-24 15:00 | CASEMGMT ---
Palliative to meet with pt 09/25/21 at 1000. John RN CM
[2021-09-24] MEDS: Insulin Lispro 100 UNIT/ML INSULN.PEN 40 UNIT SC (16:28)
[2021-09-24 16:55] LABS: Bedside Glucose 161 mg/dL (74-106)
[2021-09-24] MEDS: Furosemide 40 MG/4 ML Vial IV (17:39)
--- NOTE | 2021-09-24 18:55 | NURSING ---
All documentation and medication administration completed by RUTHIE Covarrubias completed under the supervision of this RN.
[2021-09-24] MEDS: Lidocaine 5% Patch 1 PATCH TOPICAL (20:03)
[2021-09-24] MEDS: Atorvastatin Calcium 40 MG Tablet PO (21:41)
[2021-09-24 23:20] LABS: Bedside Glucose 205 mg/dL (74-106)
[2021-09-25] VITALS (18 sets, daily range): BP systolic 134–162; BP diastolic 52–68; PULSE 61–73; RESP 12–18; TEMP 36.3–36.6; O2SAT 93–95
[2021-09-25 05:44] LABS: Absolute Lymphocyte Count 1.78 X10^3/uL (0.83-4.51); Absolute Neutrophil Count 8.8 X10^3/uL (2.0-7.7); Basophil# 0.04 X10^3/uL; Basophil% 0.3 % (0-1); Eosinophil# 0.58 X10^3/uL; Eosinophils% 4.6 % (0-5); Hematocrit 36.5 % (37-47); Hemoglobin 11.9 g/dL (12.0-15.0); Lymphocyte # 1.78 X10^3/ul (0.83-4.51); Lymphocyte % 14.2 % (19-41); Mean Corp Hgb Conc 32.6 g/dL (32-36); Mean Corpuscular Hgb 30.4 pg (27.0-32.0); Mean Corpuscular Volume 93.4 fL (81-99); Mean Platelet Vol. 11.5 fl (6.2-12.0); Monocyte# 1.28 X10^3/uL; Monocyte% 10.2 % (0-10); NRBC Flagged by Analyzer 0 % (0-5); Neutrophil # 8.78 X10^3/uL (2.7-7.7); Neutrophil % 70.1 % (47-70); Platelet Count 223 K/mm3 (150-450); RBC Distribution Width CV 13.2 % (11.6-14.6); RBC Distribution Width SD 45.1 fl (35.1-43.9); Red Blood Count 3.91 M/mm3 (4.2-5.4); White Blood Count 12.5 K/mm3 (4.4-11.0)
[2021-09-25 06:15] LABS: ALB/GLOB Ratio 0.6 RATIO (0.9-2.4); AST(SGOT) 13 U/L (15-37); Alanine Aminotransfer ALT/SGPT 46 U/L (13-56); Albumin, Serum 2.7 g/dL (3.2-5.0); Alkaline Phosphatase 130 U/L (45-117); Anion Gap 9 (5-15); BUN 51 mg/dL (7-18); BUN/Creat Ratio 30.4 RATIO (10-20); Calcium,Total 8.4 mg/dL (8.5-10.1); Chloride 95 mmol/L (98-107); Creatinine, Serum 1.68 mg/dL (0.55-1.02); EST Glomerular Filtration Rate 31 mL/min (>60); Est Glom Filt Rate - Afr Amer 37 mL/min (>60); Estimated Creatinine Clearance 20.62 ml/min; Globulin 4.5 g/dL (2.2-4.2); Glucose 201 mg/dL (74-106); Potassium 3.3 mmol/L (3.5-5.1); Protein, Total 7.2 g/dL (6.4-8.2); Sodium Level 133 mmol/L (136-145)
[2021-09-25] MEDS: hydrALAZINE 50 MG Tablet PO ×3 (06:48→21:26)
[2021-09-25] MEDS: Amiodarone 200 MG Tablet PO ×3 (06:48→21:27)
[2021-09-25] MEDS: oxyCODONE 5 MG Tablet PO ×3 (06:48→18:11)
[2021-09-25] MEDS: Acetaminophen 500 MG Tablet 1000 MG PO ×3 (06:48→21:28)
[2021-09-25] MEDS: Levothyroxine 50 MCG Tablet PO (06:48)
[2021-09-25 07:15] LABS: Pathologist Review Reviewed
[2021-09-25 07:21] LABS: Pathologist Review Reviewed
[2021-09-25] MEDS: Insulin Lispro 100 UNIT/ML INSULN.PEN SC ×3 (08:12→21:32)
[2021-09-25] MEDS: Insulin Lispro 100 UNIT/ML INSULN.PEN 40 UNIT SC ×2 (08:13→12:04)
[2021-09-25] MEDS: DULoxetine Hcl 20 MG Capsule PO (08:16)
[2021-09-25] MEDS: Aspirin E.C. 81 MG Tablet PO (08:17)
[2021-09-25] MEDS: Tolterodine Tartrate 2 MG CAP.SA PO (08:17)
[2021-09-25] MEDS: APIXABAN 2.5 MG TABLET PO ×2 (08:18→21:27)
[2021-09-25] MEDS: Lidocaine 5% Patch 1 PATCH TOPICAL (08:18)
[2021-09-25] MEDS: Furosemide 40 MG/4 ML Vial IV (08:18)
[2021-09-25] MEDS: Metoprolol Tartrate 25 MG Tablet PO ×2 (08:19→21:27)
[2021-09-25] MEDS: Pantoprazole Sodium 40 MG Tablet PO (08:22)
[2021-09-25] MEDS: Ranolazine 500 MG Tablet PO ×2 (08:22→21:28)
[2021-09-25] MEDS: Potassium Chloride Oral Tablet 20 MEQ 40 MEQ PO (08:34)
[2021-09-25] MEDS: Gabapentin 300 MG Capsule PO ×2 (08:34→21:28)
[2021-09-25] MEDS: 0.9% Saline Lock 10 ML Syringe IV (08:35)
--- NOTE | 2021-09-25 09:01 | PN.CARD_ITS ---
Subjective Subjective The patient is awake and alert. She states today she feels her breathing is better overall. She continues with left leg pain. Objective Data Vital Signs: Vital Signs Temp Pulse Resp BP Pulse Ox O2 Del Method O2 Flow Rate 97.4 F L 65 18 136/62 H 93 Nasal Cannula 3 09/25/21 03:45 09/25/21 08:19 09/25/21 03:45 09/25/21 08:19 09/25/21 03:45 09/25/21 04:11 09/25/21 04:11 FiO2 40 09/25/21 02:25 Oxygen Flow Rate (L/min) 3 Oxygen Delivery Method Nasal Cannula Weight: 165 lb 9.074 oz Body Mass Index (BMI) 30.4 Intake & Output: Intake and Output for Last 24 Hours 09/23/21 09/24/21 09/25/21 23:59 23:59 23:59 Intake Total 1378.23 / 1498.23 998.95 / 998.95 Output Total 2675 / 2975 2600 / 2850 800 / 800 Balance -1296.77 / -1476.77 -1601.05 / -1851.05 -800 / -800 Lab / Micro Data Result Diagrams: 09/25/21 04:28 09/25/21 04:28 Labs: Laboratory Results - last 24 hr 09/21/21 19:33: Diff Path Review Reviewed 09/22/21 02:15: Diff Path Review Reviewed 09/24/21 08:10: POC Glucose 221 H 09/24/21 11:46: POC Glucose 382 H 09/24/21 16:24: POC Glucose 161 H 09/24/21 21:38: POC Glucose 205 H 09/25/21 04:28: WBC 12.5 H, RBC 3.91 L, Hgb 11.9 L, Hct 36.5 L, MCV 93.4, MCH 30.4, MCHC 32.6, RDW Std Deviation 45.1 H, RDW Coeff of Laquita 13.2, Plt Count 223, MPV 11.5, Immature Gran % (Auto) 0.600, Neut % (Auto) 70.1 H, Lymph % (Auto) 14.2 L, [place] % (Auto) 10.2 H, Eos % (Auto) 4.6, Baso % (Auto) 0.3, Absolute Neuts (auto) 8.8 H, Absolute Lymphs (auto) 1.78, Nucleated RBC % 0 09/25/21 04:28: Sodium 133 L, Potassium 3.3 L, Chloride 95 L, Carbon Dioxide 29.0, Anion Gap 9, BUN 51 H, Creatinine 1.68 H, Estim Creat Clear Calc 20.62, Est GFR (MDRD) Af Amer 37 L, Est GFR (MDRD) Non-Af 31 L, BUN/Creatinine Ratio 30.4 H, Glucose 201 H, Calcium 8.4 L, Total Bilirubin 0.40, AST 13 L, ALT 46, Alkaline Phosphatase 130 H, Total Protein 7.2, Albumin 2.7 L, Globulin 4.5 H, Albumin/Globulin Ratio 0.6 L Cardiology Labs/Tests 09/25/21 04:28: WBC 12.5 H, RBC 3.91 L, Hgb 11.9 L, Hct 36.5 L, MCV 93.4, MCH 30.4, MCHC 32.6, Plt Count 223, MPV 11.5, Immature Gran % (Auto) 0.600, Neut % (Auto) 70.1 H, Lymph % (Auto) 14.2 L, [place] % (Auto) 10.2 H, Eos % (Auto) 4.6, Baso % (Auto) 0.3, Absolute Neuts (auto) 8.8 H, Nucleated RBC % 0 09/25/21 04:28: Sodium 133 L, Potassium 3.3 L, Chloride 95 L, Carbon Dioxide 29.0, Anion Gap 9, BUN 51 H, Creatinine 1.68 H, Est GFR (MDRD) Af Amer 37 L, Est GFR (MDRD) Non-Af 31 L, BUN/Creatinine Ratio 30.4 H, Glucose 201 H, Calcium 8.4 L, Total Bilirubin 0.40 Rhythm: Sinus rhythm Radiography Diagnostic Testing: Radiology Impression Knee X-Ray 09/24/21 13:40 IMPRESSION: Mild arthrosis of the patellofemoral compartment. Small joint effusion. Electronically Signed: Sai Holder MD at 15:00 EDT , Echocardiogram 09/24/21 14:25 Interpretation Summary Left ventricular systolic function is normal. The estimated ejection fraction is 70 %. The left atrium is mildly enlarged. There is mild to moderate mitral annular calcification. Extension of the mitral annular calcification on the base of the posterior mitral valve leaflet. Mild (1+) mitral valve insufficiency. Trivial tricuspid valve insufficiency. Right ventricular systolic pressure estimated to be 39 mmHg. Stage 2 diastolic dysfunction. Ordering Physician: Galileo Uriostegui MD Referring Physician: Fernando Kong Performed By: Zenaida Silva RCS Physical Exam Const alert, oriented x3 and no apparent distress HEENT head/scalp atraumatic and moist oral mucous membranes Head and Scalp: normocephalic Eyes conjunctivae normal and no scleral icterus Neck no lymphadenopathy and supple Resp normal respiratory effort Auscultation: crackles bilateral throughout Cardio regular rate, regular rhythm, S1 normal heart sound and S2 normal heart sound GI normal to inspection, nondistended, normoactive bowel sounds, soft to palpation and non-tender Extremity normal to inspection and full ROM General Extremity: edema bilateral lower extremity Details: moderate Neuro oriented x3, moves all extremities and no focal motor deficits Sensorium / Orientation: awake and alert Psych affect normal Assessment & Plan Assessment/Plan (1) Abnormal cardiac enzyme level: PLAN: The patient has mildly elevated cardiac enzymes. They have not significantly changed with respect to an increase or decrease. These enzymes may be secondary to the patient's atrial fibrillation and acute on chronic heart failure with preserved ejection fraction superimposed upon her underlying chronic cardiovascular disease process. At the present time her ECG is demonstrated no acute ST/T wave abnormalities. The patient has been reassessed with a transthoracic echocardiogram. Her overall left ventricular wall motion and systolic function appear to be preserved. The patient has undergone a recent pharmacologic stress nuclear imaging study with the findings as noted. Her most recent cardiac catheterization was reviewed. The patient's case was discussed with her. At the present time based upon a combination of factors/comorbidities the consensus is to continue conservative medical management with no plans for repeat invasive evaluation. (2) PAF (paroxysmal atrial fibrillation): PLAN: She has a history of paroxysmal atrial fibrillation. At the present time she appears to be in sinus rhythm. She will continue rate control therapy. She will continue her antiarrhythmic therapy with amiodarone taper. She will continue anticoagulant therapy as deemed appropriate. (3) Acute on chronic heart failure with preserved ejection fraction (HFpEF): PLAN: The patient appears to have findings concerning for acute on chronic heart failure with preserved ejection fraction. She is being monitored. She has undergone laboratory evaluation, ECG evaluation, and radiologic studies. At the moment it appears prudent to continue medical therapy with diuretic therapy. It appears her pulse dose furosemide therapy has been altered to IV continuous infusion furosemide therapy. Her urine output has increased. She appears to be improved overall. She will continue medical therapy with eventual alteration of her IV diuretics to oral diuretics. (4) CAD (coronary artery disease): PLAN: Again the patient has a history of underlying CAD. She has undergone previous PCI and CABG. Her most recent diagnostic cardiac catheterization is noted. At the moment she will continue to be monitored and followed. She will continue medical therapy as tolerated. (5) Presence of stent in coronary artery: PLAN: The patient has a history of PCI. Her most recent cardiac catheterization report is noted. As she has greater than 1 year from her previous PCI and is now requiring anticoagulant therapy it was felt reasonable that the patient's medicines be adjusted. Thus she will continue her aspirin therapy on her anticoagulant therapy. Her antiplatelet therapy with clopidogrel/Plavix will be placed on hold. (6) History of coronary artery bypass graft x 3: PLAN: The patient has a history of CABG. She has undergone previous cardiac catheterization. Based upon that study it appears that her SVG to the first OM was considered occluded. (7) Carotid stenosis, left: PLAN: The patient has a history of carotid artery disease as well. She will need to continue medical management. (8) Pure hypercholesterolemia: PLAN: She should continue medical therapy as best as tolerated. (9) Essential hypertension: PLAN: Her blood pressure will need to be followed for any significant changes that warrant alteration in her medical therapy. (10) Chronic renal failure, stage 3 (moderate): QUALIFIERS: Chronic kidney disease stage 3 subtype: stage 3b (GFR 30-44) Qualified Code(s): N18.32 - Chronic kidney disease, stage 3b PLAN: Her renal insufficiency does need to be taken into consideration with respect to her medications as well as any future invasive cardiovascular studies such as cardiac catheterization requiring IV contrast. This is based upon the concerns of potential IV contrast related nephropathy and worsening renal function. (11) Leukocytosis: PLAN: The patient did have findings compatible with leukocytosis. The etiology is unclear as to whether this is a leukemoid reaction or related to an underlying infectious disease process or a noninfectious disease process. This may need further evaluation by internal medicine. (12) Lower GI bleeding: PLAN: The patient has had a recent history of lower GI bleeding per rectum. This led to the recommendation to place her antiplatelet therapy on hold pending further gastrointestinal evaluation. Her spouse states that he did not place her antiplatelet therapy on hold. The patient states she has not yet had her endoscopy procedures. In the interim she states her bleeding appears to have stopped. Thus far she appears to be tolerating combination of antiplatelet agents and anticoagulant agents. (13) Hypothyroidism: QUALIFIERS: Hypothyroidism type: acquired Qualified Code(s): E03.9 - Hypothyroidism, unspecified PLAN: The patient has a history of hypothyroidism. She will continue her medical management. (14) Broken ribs: PLAN: The patient has a history of rib fractures. This can lead to her chronic chest discomfort. However, she is concerned she had chest discomfort prior to her fall rib fractures as well. (15) Leg pain: PLAN: The patient continues to complain of left lower extremity pain and not being able to bear weight on the left lower extremity. She states she was evaluated by her local orthopedic surgery group with outpatient radiologic studies. She states she was told there was no fractures. She is being further evaluated by internal medicine. Addt'l Comments Overall, at the present time, the cardiovascular plan is for continued conservative medical management with adjustment of patient's medications based upon her clinical course, objective findings, etc. The above was discussed and reviewed with the patient. She was in agreement to the above evaluation and care plan. This note was generated using a voice recognition system and there may be incorrect words, spelling or punctuation that were not noted when reviewing the office note prior to saving. Procedure Criteria Type of Procedure Procedure Type: Elective Elective Risks - COVID COVID Risk Discussion: The surgeon/proceduralist and patient have discussed in detail the risk of exposure to and/or potential harm posed by the COVID-19 virus with having a surgery/procedure at this time versus the risk of delaying the surgery/pr ocedure. It is not possible to know either the risk of delaying the surgery or procedure or chance of getting an infection with perfect accuracy, but a joint decision was made between the patient and the surgeon/proceduralist to proceed at this time with the scheduled surgery/procedure as indicated on the consent form.
[2021-09-25] MEDS: Glucerna Shake 120 ML LIQUID PO (09:05)
[2021-09-25] MEDS: Insulin Glargine-YFGN 100 UNIT/ML Pen 75 UNIT SC (09:11)
--- NOTE | 2021-09-25 09:22 | CASEMGMT ---
SW met with patient. Introduced self and role at [facility]. SW asked patient if she feels like she will be okay to go home at discharge or if she feels she will need short term SNF. Patient feels she will be fine going home. SW asked about home health therapy and patient does not feel that she will need therapy. Miriam Cevallos MSW [facility]
[2021-09-25 09:26] LABS: Bedside Glucose 242 mg/dL (74-106)
--- NOTE | 2021-09-25 09:58 | PN.HOSP_ITS ---
Documented by User: JUVENTINO Harris 09/25/21 10:05 Subjective Subjective Patient seen and examined. Patient sitting in bed no distress noted. Patient down to 3 L nasal cannula oxygen. Patient states she is feeling slightly better just weak and tired. Objective Data Objective Data Vital Signs: Vital Signs Temp Pulse Resp BP Pulse Ox O2 Del Method O2 Flow Rate 97.6 F L 65 18 136/62 H 95 Nasal Cannula 3 09/25/21 09:14 09/25/21 09:14 09/25/21 09:14 09/25/21 09:14 09/25/21 09:14 09/25/21 09:16 09/25/21 09:16 FiO2 40 09/25/21 02:25 Oxygen Flow Rate (L/min) 3 Oxygen Delivery Method Nasal Cannula Weight: 165 lb 9.074 oz Body Mass Index (BMI) 30.4 Intake & Output: Intake and Output for Last 24 Hours 09/23/21 09/24/21 09/25/21 23:59 23:59 23:59 Intake Total 1378.23 / 1498.23 998.95 / 998.95 Output Total 2675 / 2975 2600 / 2850 800 / 800 Balance -1296.77 / -1476.77 -1601.05 / -1851.05 -800 / -800 Lab / Micro Data Result Diagrams: 09/25/21 04:28 09/25/21 04:28 Labs: Laboratory Results - last 24 hr 09/21/21 19:33: Diff Path Review Reviewed 09/22/21 02:15: Diff Path Review Reviewed 09/24/21 08:10: POC Glucose 221 H 09/24/21 11:46: POC Glucose 382 H 09/24/21 16:24: POC Glucose 161 H 09/24/21 21:38: POC Glucose 205 H 09/25/21 04:28: WBC 12.5 H, RBC 3.91 L, Hgb 11.9 L, Hct 36.5 L, MCV 93.4, MCH 30.4, MCHC 32.6, RDW Std Deviation 45.1 H, RDW Coeff of Laquita 13.2, Plt Count 223, MPV 11.5, Immature Gran % (Auto) 0.600, Neut % (Auto) 70.1 H, Lymph % (Auto) 14.2 L, [place] % (Auto) 10.2 H, Eos % (Auto) 4.6, Baso % (Auto) 0.3, Absolute Neuts (auto) 8.8 H, Absolute Lymphs (auto) 1.78, Nucleated RBC % 0 09/25/21 04:28: Sodium 133 L, Potassium 3.3 L, Chloride 95 L, Carbon Dioxide 29.0, Anion Gap 9, BUN 51 H, Creatinine 1.68 H, Estim Creat Clear Calc 20.62, Est GFR (MDRD) Af Amer 37 L, Est GFR (MDRD) Non-Af 31 L, BUN/Creatinine Ratio 30.4 H, Glucose 201 H, Calcium 8.4 L, Total Bilirubin 0.40, AST 13 L, ALT 46, Alkaline Phosphatase 130 H, Total Protein 7.2, Albumin 2.7 L, Globulin 4.5 H, Albumin/Globulin Ratio 0.6 L 09/25/21 08:08: POC Glucose 242 H Radiography Diagnostic Testing: Radiology Impression Knee X-Ray 09/24/21 13:40 IMPRESSION: Mild arthrosis of the patellofemoral compartment. Small joint effusion. Electronically Signed: Sai Holder MD at 15:00 EDT , Echocardiogram 09/24/21 14:25 Interpretation Summary Left ventricular systolic function is normal. The estimated ejection fraction is 70 %. The left atrium is mildly enlarged. There is mild to moderate mitral annular calcification. Extension of the mitral annular calcification on the base of the posterior mitral valve leaflet. Mild (1+) mitral valve insufficiency. Trivial tricuspid valve insufficiency. Right ventricular systolic pressure estimated to be 39 mmHg. Stage 2 diastolic dysfunction. Ordering Physician: Galileo Uriostegui MD Referring Physician: Fernando Kong Performed By: Zenaida Silva RCS Physical Exam Const alert, oriented x3 and no apparent distress HEENT head/scalp atraumatic and moist oral mucous membranes Eyes conjunctivae normal and no scleral icterus Neck no lymphadenopathy and supple Resp normal respiratory effort Auscultation: crackles bilateral throughout Cardio regular rate, regular rhythm, S1 normal heart sound and S2 normal heart sound GI normal to inspection, nondistended, normoactive bowel sounds, soft to palpation and non-tender Extremity normal to inspection and full ROM General Extremity: edema bilateral lower extremity Details: mild Neuro oriented x3, moves all extremities and no focal motor deficits Sensorium / Orientation: awake and alert Psych affect normal Assessment & Plan Assessment/Plan (1) Congestive heart failure: (2) New onset atrial fibrillation: PLAN: Plan 1. Acute hypoxic respiratory failure secondary to acute on chronic heart failure with preserved EF -EF 65% -Patient transition from Lasix drip to intermittent Lasix dosing IV, continues to diurese well -Continue to wean oxygen as tolerated, currently on 3 L nasal cannula -Cardiology following -Continue fluid restriction of 1500 mL daily with strict intake and output -Continue breathing treatments as ordered 2. New onset A. fib with RVR -Currently rate controlled and normal sinus rhythm -Continue metoprolol and amiodarone -Continue Eliquis -[id number] score 6 3. Hypokalemia -Potassium 3.3 -Potassium chloride 40 mEq p.o. daily -BMP daily 4. CAD status post CABG -Continue home medication regimen including Imdur, metoprolol, lisinopril, asp irin, statin, Plavix 5. Hypertension -Continue home medication regimen including hydralazine, lisinopril. -Vital signs per protocol, currently stable 6. Hypothyroidism -Continue Synthroid 7. Chronic kidney disease stage IIIb -currently stable, creatinine has at baseline -BMP daily 8. Diabetes mellitus type 2 -ACH S blood sugars with sliding scale insulin ordered -Continue Lantus 9. History of recent GI bleed -patient has not followed up with GI yet, plan for EGD and colonoscopy outp atient Patient meeting with palliative care today. DVT prophylaxis-not indicated, chronically anticoagulated with Eliquis This patient was seen by Cassi Boyd NP-C under the supervision of Dr. West. 11 minutes spent in clinical coordination of patient's plan of care. Documented by User: Dr. Fe West MD 09/25/21 15:41 Objective Data Lab / Micro Data Result Diagrams: 09/25/21 04:28 09/25/21 04:28 Assessment & Plan Assessment/Plan (1) Congestive heart failure: (2) New onset atrial fibrillation: Charges/Coding Addendum Addendum: This patient was seen in conjunction with Familia Boyd NP.? I have indep endently interviewed and examined the patient and reviewed pertinent historical, laboratory, and other data. I have reviewed her note and concur with her documentation Patient was seen and examined.? Her pain in her left knee is better with the Lidoderm patches. Patient is upset about having to go to subacute rehab. at the bedside. Physical Exam: Gen: Comfortable, not pale, not jaundiced, remains on 4 L of oxygen CVS:HS I +II, regular, no murmurs RESP: Diminished at lung bases GI: BS present and normal, soft, nontender, no palpable organs EXT:No edema, tenderness on range of motion of the right knee and ankle ASSESSMENT: 1. Acute exacerbation of heart failure with preserved EF, EF 72% 2. Hypokalemia, replaced 3. Paroxysmal A. fib with RVR 4. Acute hypoxic respiratory failure 5. 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 Hypertension 7. Type II DM Plan: Switch to Lasix 40mg po BID Replace potassium, recheck labs in am Continue Lantus, Premeal insulin and ISS Continue on amiodarone Continue scheduled Tylenol 1000mg TID Time spent coordinating all aspects of patient's care, discussing with nursin minutes Visit Charges Inpatient E&M: 76973 Subs Hosp L2
--- NOTE | 2021-09-25 10:06 | CASEMGMT ---
Palliative into speak with pt and pt declines palliative and any further f/u from them. SStcelina RN CM
[2021-09-25 13:01] LABS: Bedside Glucose 191 mg/dL (74-106)
--- NOTE | 2021-09-25 14:44 | CASEMGMT ---
SW participated in interdisciplinary rounds. It is being recommended that patient go somewhere for short term rehab. Patient is resistant to going somewhere for rehab. However, patient's is concerned about patient coming home due to her falls. SW did provide patient and her with a list of SNF providers including quality and resource use data and consistent with the patient?s preferred geographic region, medical needs, and insurance network. GI explained the facilities SW highlighted in pink are the ones that accept her insurance. Patient was getting orthostatic vitals taken so she needed to stay quiet so SW will check back. Miriam Cevallos GEOPHYSICAL PROSPECTOR [facility]
--- NOTE | 2021-09-25 15:21 | CASEMGMT ---
SW went back to patient's room. SW met with patient and her . SW asked if they have discussed a plan. Patient's said patient is upset. SW knelt at down to talk with patient. Patient had tears. SW asked patient what bothers her about going to a prison for rehab. Patient's spoke up and said she is afraid this is the end. SW asked patient if this is what concerns her. Patient told SW she does not want to talk about it right now. SW told patient that is okay. SW will allow her to rest and SW can talk with her tomorrow. Miriam Cevallos CLIENT EXPERIENCE CONSULTANT [facility]
[2021-09-25] MEDS: Furosemide 40 MG Tablet PO (18:08)
[2021-09-25 18:31] LABS: Bedside Glucose 156 mg/dL (74-106)
[2021-09-25] MEDS: Atorvastatin Calcium 40 MG Tablet PO (21:27)
[2021-09-25 22:31] LABS: Bedside Glucose 245 mg/dL (74-106)
--- NOTE | 2021-09-25 23:12 | CPS ---
Patient did not want to wear the Bipap tonight.
[2021-09-26] VITALS (15 sets, daily range): BP systolic 126–162; BP diastolic 57–62; PULSE 54–67; RESP 18; TEMP 36.5–37.1; O2SAT 94–96
[2021-09-26 05:27] LABS: Absolute Lymphocyte Count 1.63 X10^3/uL (0.83-4.51); Absolute Neutrophil Count 6.8 X10^3/uL (2.0-7.7); Basophil# 0.04 X10^3/uL; Basophil% 0.4 % (0-1); Eosinophil# 0.66 X10^3/uL; Eosinophils% 6.3 % (0-5); Hematocrit 36.6 % (37-47); Hemoglobin 11.8 g/dL (12.0-15.0); Lymphocyte # 1.63 X10^3/ul (0.83-4.51); Lymphocyte % 15.7 % (19-41); Mean Corp Hgb Conc 32.2 g/dL (32-36); Mean Corpuscular Hgb 30.3 pg (27.0-32.0); Mean Corpuscular Volume 93.8 fL (81-99); Mean Platelet Vol. 11.4 fl (6.2-12.0); Monocyte# 1.17 X10^3/uL; Monocyte% 11.2 % (0-10); NRBC Flagged by Analyzer 0 % (0-5); Neutrophil # 6.84 X10^3/uL (2.7-7.7); Neutrophil % 65.7 % (47-70); Platelet Count 236 K/mm3 (150-450); RBC Distribution Width CV 13.4 % (11.6-14.6); RBC Distribution Width SD 46.3 fl (35.1-43.9); White Blood Count 10.4 K/mm3 (4.4-11.0)
[2021-09-26 05:49] LABS: Albumin, Serum 2.7 g/dL (3.2-5.0); BUN 49 mg/dL (7-18); BUN/Creat Ratio 30.2 RATIO (10-20); Creatinine, Serum 1.62 mg/dL (0.55-1.02); EST Glomerular Filtration Rate 32 mL/min (>60); Est Glom Filt Rate - Afr Amer 39 mL/min (>60); Estimated Creatinine Clearance 21.38 ml/min; Glucose 193 mg/dL (74-106)
[2021-09-26 05:50] LABS: ALB/GLOB Ratio 0.6 RATIO (0.9-2.4); AST(SGOT) 10 U/L (15-37); Alanine Aminotransfer ALT/SGPT 37 U/L (13-56); Alkaline Phosphatase 122 U/L (45-117); Anion Gap 7 (5-15); Calcium,Total 8.6 mg/dL (8.5-10.1); Chloride 99 mmol/L (98-107); Globulin 4.3 g/dL (2.2-4.2); Potassium 3.7 mmol/L (3.5-5.1); Sodium Level 135 mmol/L (136-145)
[2021-09-26] MEDS: Levothyroxine 50 MCG Tablet PO (06:12)
[2021-09-26] MEDS: Acetaminophen 500 MG Tablet 1000 MG PO ×3 (06:12→21:48)
[2021-09-26] MEDS: Amiodarone 200 MG Tablet PO ×3 (06:13→21:48)
[2021-09-26] MEDS: Insulin Lispro 100 UNIT/ML INSULN.PEN SC ×2 (06:18→11:59)
[2021-09-26 07:15] LABS: Bedside Glucose 179 mg/dL (74-106)
[2021-09-26] MEDS: DULoxetine Hcl 20 MG Capsule PO (08:04)
[2021-09-26] MEDS: Metoprolol Tartrate 25 MG Tablet PO ×2 (08:04→21:47)
[2021-09-26] MEDS: Tolterodine Tartrate 2 MG CAP.SA PO (08:05)
[2021-09-26] MEDS: Potassium Chloride Oral Tablet 20 MEQ 40 MEQ PO (08:05)
[2021-09-26] MEDS: Pantoprazole Sodium 40 MG Tablet PO (08:05)
[2021-09-26] MEDS: Aspirin E.C. 81 MG Tablet PO (08:05)
[2021-09-26] MEDS: APIXABAN 2.5 MG TABLET PO ×2 (08:05→21:49)
[2021-09-26] MEDS: Glucerna Shake 120 ML LIQUID PO ×3 (08:05→16:52)
[2021-09-26] MEDS: Ranolazine 500 MG Tablet PO ×2 (08:05→21:49)
[2021-09-26] MEDS: Gabapentin 300 MG Capsule PO ×2 (08:05→21:49)
[2021-09-26] MEDS: Furosemide 40 MG Tablet PO ×2 (08:05→10:15)
[2021-09-26] MEDS: Lidocaine 5% Patch 1 PATCH TOPICAL (08:06)
[2021-09-26] MEDS: Insulin Lispro 100 UNIT/ML INSULN.PEN 40 UNIT SC ×2 (08:13→11:59)
[2021-09-26] MEDS: Insulin Glargine-YFGN 100 UNIT/ML Pen 75 UNIT SC (08:13)
[2021-09-26 08:45] LABS: Bedside Glucose 189 mg/dL (74-106)
--- NOTE | 2021-09-26 09:46 | PN.CARD_ITS ---
Subjective Subjective The patient is awake and alert. She notes her breathing continues to improve overall. She has had no other acute cardiovascular complaints. She continues with a left lower extremity discomfort. Objective Data Vital Signs: Vital Signs Temp Pulse Resp BP Pulse Ox O2 Del Method O2 Flow Rate 98.2 F 60 18 150/57 H 94 Nasal Cannula 2 09/26/21 03:00 09/26/21 08:04 09/26/21 03:00 09/26/21 08:04 09/26/21 07:19 09/26/21 08:05 09/26/21 08:05 FiO2 40 09/25/21 02:25 Oxygen Flow Rate (L/min) 2 Oxygen Delivery Method Nasal Cannula Weight: 167 lb 1.766 oz Body Mass Index (BMI) 30.4 Intake & Output: Intake and Output for Last 24 Hours 09/24/21 09/25/21 09/26/21 23:59 23:59 23:59 Intake Total 998.95 / 998.95 1200 / 1200 Output Total 2600 / 2850 800 / 1100 580 / 580 Balance -1601.05 / -1851.05 400 / 100 -580 / -580 Lab / Micro Data Result Diagrams: 09/26/21 04:55 09/26/21 04:55 Labs: Laboratory Results - last 24 hr 09/25/21 12:01: POC Glucose 191 H 09/25/21 17:59: POC Glucose 156 H 09/25/21 21:31: POC Glucose 245 H 09/26/21 04:55: WBC 10.4, RBC 3.90 L, Hgb 11.8 L, Hct 36.6 L, MCV 93.8, MCH 30.3, MCHC 32.2, RDW Std Deviation 46.3 H, RDW Coeff of Laquita 13.4, Plt Count 236, MPV 11.4, Immature Gran % (Auto) 0.700, Neut % (Auto) 65.7, Lymph % (Auto) 15.7 L, Gosper % (Auto) 11.2 H, Eos % (Auto) 6.3 H, Baso % (Auto) 0.4, Absolute Neuts (auto) 6.8, Absolute Lymphs (auto) 1.63, Nucleated RBC % 0 09/26/21 04:55: Sodium 135 L, Potassium 3.7, Chloride 99, Carbon Dioxide 29.0, Anion Gap 7, BUN 49 H, Creatinine 1.62 H, Estim Creat Clear Calc 21.38, Est GFR (MDRD) Af Amer 39 L, Est GFR (MDRD) Non-Af 32 L, BUN/Creatinine Ratio 30.2 H, Glucose 193 H, Calcium 8.6, Total Bilirubin 0.30, AST 10 L, ALT 37, Alkaline Phosphatase 122 H, Total Protein 7.0, Albumin 2.7 L, Globulin 4.3 H, Albumin/Globulin Ratio 0.6 L 09/26/21 06:16: POC Glucose 179 H 09/26/21 07:57: POC Glucose 189 H Cardiology Labs/Tests 09/26/21 04:55: WBC 10.4, RBC 3.90 L, Hgb 11.8 L, Hct 36.6 L, MCV 93.8, MCH 30.3, MCHC 32.2, Plt Count 236, MPV 11.4, Immature Gran % (Auto) 0.700, Neut % (Auto) 65.7, Lymph % (Auto) 15.7 L, Gosper % (Auto) 11.2 H, Eos % (Auto) 6.3 H, Baso % (Auto) 0.4, Absolute Neuts (auto) 6.8, Nucleated RBC % 0 09/26/21 04:55: Sodium 135 L, Potassium 3.7, Chloride 99, Carbon Dioxide 29.0, Anion Gap 7, BUN 49 H, Creatinine 1.62 H, Est GFR (MDRD) Af Amer 39 L, Est GFR (MDRD) Non-Af 32 L, BUN/Creatinine Ratio 30.2 H, Glucose 193 H, Calcium 8.6, Total Bilirubin 0.30 Rhythm: Sinus rhythm Physical Exam Const alert, oriented x3 and no apparent distress Orientation / Consciousness: awake HEENT normocephalic, head/scalp atraumatic and hearing grossly normal bilaterally Head and Scalp: normocephalic Eyes PERRL, EOMs intact bilaterally, conjunctivae normal and no scleral icterus Neck full ROM, supple and no JVD Chest inspection of chest normal Resp normal respiratory effort Auscultation: diminished lung sounds bilateral (Minimal: Improved compared to previous examination) lower Cardio regular rate, regular rhythm, S1 normal heart sound and S2 normal heart sound GI normal to inspection, nondistended, normoactive bowel sounds, soft to palpation and non-tender Extremity normal to inspection, full ROM and no pedal edema Neuro oriented x3, moves all extremities and no focal motor deficits Sensorium / Orientation: awake and alert Psych mental status grossly normal and affect normal Assessment & Plan Assessment/Plan (1) Abnormal cardiac enzyme level: PLAN: The patient has mildly elevated cardiac enzymes. They have not significantly changed with respect to an increase or decrease. These enzymes may be secondary to the patient's atrial fibrillation and acute on chronic heart failure with preserved ejection fraction superimposed upon her underlying chronic cardiovascular disease process. At the present time her ECG is demonstrated no acute ST/T wave abnormalities. The patient has been reassessed with a transthoracic echocardiogram. Her overall left ventricular wall motion and systolic function appear to be preserved. The patient has undergone a recent pharmacologic stress nuclear imaging study with the findings as noted. Her most recent cardiac catheterization was reviewed. The patient's case was discussed with her. At the present time based upon a combination of factors/comorbidities the consensus is to continue conservative medical management with no plans for repeat invasive evaluation. (2) PAF (paroxysmal atrial fibrillation): PLAN: She has a history of paroxysmal atrial fibrillation. At the present time she appears to be in sinus rhythm. She will continue rate control therapy. She will continue her antiarrhythmic therapy with amiodarone taper. She will continue anticoagulant therapy as deemed appropriate. (3) Acute on chronic heart failure with preserved ejection fraction (HFpEF): PLAN: The patient appears to have findings concerning for acute on chronic heart failure with preserved ejection fraction. She is being monitored. She has undergone laboratory evaluation, ECG evaluation, and radiologic studies. At the moment it appears prudent to continue medical therapy with diuretic therapy. It appears her pulse dose furosemide therapy has been altered to IV continuous infusion furosemide therapy. Her urine output has increased. She appears to be improved overall. She will continue medical therapy with diuretics. Her oral dose will be increased to hopefully maintain adequate volume status. Over time her renal function and electrolytes will need to be followed. (4) CAD (coronary artery disease): PLAN: Again the patient has a history of underlying CAD. She has undergone previous PCI and CABG. Her most recent diagnostic cardiac catheterization is noted. At the moment she will continue to be monitored and followed. She will continue medical therapy as tolerated. (5) Presence of stent in coronary artery: PLAN: The patient has a history of PCI. Her most recent cardiac catheterization report is noted. As she has greater than 1 year from her previous PCI and is now requiring anticoagulant therapy it was felt reasonable that the patient's medicines be adjusted. Thus she will continue her aspirin therapy on her anticoagulant therapy. Her antiplatelet therapy with clopidogrel/Plavix will be placed on hold. (6) History of coronary artery bypass graft x 3: PLAN: The patient has a history of CABG. She has undergone previous cardiac catheterization. Based upon that study it appears that her SVG to the first OM was considered occluded. (7) Carotid stenosis, left: PLAN: The patient has a history of carotid artery disease as well. She will need to continue medical management. (8) Pure hypercholesterolemia: PLAN: She should continue medical therapy as best as tolerated. (9) Essential hypertension: PLAN: Her blood pressure will need to be followed for any significant changes that warrant alteration in her medical therapy. (10) Chronic renal failure, stage 3 (moderate): QUALIFIERS: Chronic kidney disease stage 3 subtype: stage 3b (GFR 30-44) Qualified Code(s): N18.32 - Chronic kidney disease, stage 3b PLAN: Her renal insufficiency does need to be taken into consideration with respect to her medications as well as any future invasive cardiovascular studies such as cardiac catheterization requiring IV contrast. This is based upon the concerns of potential IV contrast related nephropathy and worsening renal function. (11) Leukocytosis: PLAN: The patient did have findings compatible with leukocytosis. The etiology is unclear as to whether this is a leukemoid reaction or related to an underlying infectious disease process or a noninfectious disease process. This may need further evaluation by internal medicine. (12) Lower GI bleeding: PLAN: The patient has had a recent history of lower GI bleeding per rectum. This led to the recommendation to place her antiplatelet therapy on hold pending further gastrointestinal evaluation. Her spouse states that he did not place her antiplatelet therapy on hold. The patient states she has not yet had her endoscopy procedures. In the interim she states her bleeding appears to have stopped. Thus far she appears to be tolerating combination of antiplatelet agents and anticoagulant agents. (13) Hypothyroidism: QUALIFIERS: Hypothyroidism type: acquired Qualified Code(s): E03.9 - Hypothyroidism, unspecified PLAN: The patient has a history of hypothyroidism. She will continue her medical management. (14) Broken ribs: PLAN: The patient has a history of rib fractures. This can lead to her chronic chest discomfort. However, she is concerned she had chest discomfort prior to her fall rib juan pablo garcia as well. (15) Leg pain: PLAN: The patient continues to complain of left lower extremity pain and not being able to bear weight on the left lower extremity. She states she was evaluated by her local orthopedic surgery group with outpatient radiologic studies. She states she was told there was no fractures. She is being further evaluated by internal medicine. Addt'l Comments Overall, from a cardiovascular status, she will continue conservative medical management with adjustment of dose based upon her clinical course and her objective studies. There are no additional cardiovascular diagnostic studies planned at this time. She will need continued future outpatient cardiovascular follow-up. This note was generated using a voice recognition system and there may be incorrect words, spelling or punctuation that were not noted when reviewing the office note prior to saving.
--- NOTE | 2021-09-26 10:02 | CASEMGMT ---
Patient has agreed to go to [facility] for short term rehab. SW spoke with patient and offered support. Patient did not want to talk. SW let patient know she if feels like she would like to talk she is welcome to ask for Social Work. SW asked Vesna d/c program manager environmental planning to make a referral to [facility] and ask them to start the pre-cert. Miriam Cevallos BENEFITS CLERK RAMANA
[2021-09-26] MEDS: oxyCODONE 5 MG Tablet 10 MG PO ×2 (10:18→20:22)
[2021-09-26 11:25] LABS: Bedside Glucose 163 mg/dL (74-106)
--- NOTE | 2021-09-26 12:04 | PN.HOSP_ITS ---
Documented by User: JUVENTINO Harris 09/26/21 12:08 Subjective Subjective Seen and examined. Patient sitting in bed no distress noted, currently on 2 L nasal cannula improved from yesterday. Patient states that she is now willing to go to [facility] for short-term therapy. Objective Data Objective Data Vital Signs: Vital Signs Temp Pulse Resp BP Pulse Ox O2 Del Method O2 Flow Rate 97.7 F L 61 18 150/57 H 94 Nasal Cannula 2 09/26/21 09:00 09/26/21 09:00 09/26/21 09:00 09/26/21 09:00 09/26/21 09:00 09/26/21 09:00 09/26/21 09:00 FiO2 40 09/25/21 02:25 Oxygen Flow Rate (L/min) 2 Oxygen Delivery Method Nasal Cannula Weight: 167 lb 1.766 oz Body Mass Index (BMI) 30.4 Intake & Output: Intake and Output for Last 24 Hours 09/24/21 09/25/21 09/26/21 23:59 23:59 23:59 Intake Total 998.95 / 998.95 1200 / 1200 350 / 350 Output Total 2600 / 2850 800 / 1100 580 / 580 Balance -1601.05 / -1851.05 400 / 100 -230 / -230 Lab / Micro Data Result Diagrams: 09/26/21 04:55 09/26/21 04:55 Labs: Laboratory Results - last 24 hr 09/25/21 12:01: POC Glucose 191 H 09/25/21 17:59: POC Glucose 156 H 09/25/21 21:31: POC Glucose 245 H 09/26/21 04:55: WBC 10.4, RBC 3.90 L, Hgb 11.8 L, Hct 36.6 L, MCV 93.8, MCH 30.3, MCHC 32.2, RDW Std Deviation 46.3 H, RDW Coeff of Laquita 13.4, Plt Count 236, MPV 11.4, Immature Gran % (Auto) 0.700, Neut % (Auto) 65.7, Lymph % (Auto) 15.7 L, Grand % (Auto) 11.2 H, Eos % (Auto) 6.3 H, Baso % (Auto) 0.4, Absolute Neuts (auto) 6.8, Absolute Lymphs (auto) 1.63, Nucleated RBC % 0 09/26/21 04:55: Sodium 135 L, Potassium 3.7, Chloride 99, Carbon Dioxide 29.0, Anion Gap 7, BUN 49 H, Creatinine 1.62 H, Estim Creat Clear Calc 21.38, Est GFR (MDRD) Af Amer 39 L, Est GFR (MDRD) Non-Af 32 L, BUN/Creatinine Ratio 30.2 H, Glucose 193 H, Calcium 8.6, Total Bilirubin 0.30, AST 10 L, ALT 37, Alkaline Phosphatase 122 H, Total Protein 7.0, Albumin 2.7 L, Globulin 4.3 H, Albumin/Globulin Ratio 0.6 L 09/26/21 06:16: POC Glucose 179 H 09/26/21 07:57: POC Glucose 189 H 09/26/21 11:04: POC Glucose 163 H Physical Exam Const alert, oriented x3 and no apparent distress HEENT head/scalp atraumatic and moist oral mucous membranes Eyes conjunctivae normal and no scleral icterus Neck no lymphadenopathy and supple Resp normal respiratory effort Auscultation: crackles bilateral base Cardio regular rate, regular rhythm, S1 normal heart sound and S2 normal heart sound GI normal to inspection, nondistended, normoactive bowel sounds, soft to palpation and non-tender Extremity normal to inspection and full ROM General Extremity: edema bilateral lower extremity Details: mild Neuro oriented x3, moves all extremities and no focal motor deficits Sensorium / Orientation: awake and alert Psych affect normal Assessment & Plan Assessment/Plan (1) Congestive heart failure: (2) New onset atrial fibrillation: PLAN: Plan 1. Acute hypoxic respiratory failure secondary to acute on chronic heart failure with preserved EF -EF 65% -Continue IV Lasix -Continue to wean oxygen as tolerated, currently on 2 L nasal cannula -Cardiology following -Continue fluid restriction of 1500 mL daily with strict intake and output -Continue breathing treatments as ordered 2. New onset A. fib with RVR -Currently rate controlled and normal sinus rhythm -Continue metoprolol and amiodarone -Continue Eliquis -[id number] score 6 3. Hypokalemia -Potassium 3.7 -Potassium chloride 40 mEq p.o. daily -BMP daily 4. CAD status post CABG -Continue home medication regimen including Imdur, metoprolol, lisinopril, aspirin, statin, Plavix 5. Hypertension -Continue home medication regimen including hydralazine, lisinopril. -Vital signs per protocol, currently stable 6. Hypothyroidism -Continue Synthroid 7. Chronic kidney disease stage IIIb -currently stable, creatinine has at baseline -BMP daily 8. Diabetes mellitus type 2 -ACH S blood sugars with sliding scale insulin ordered -Continue Lantus 9. History of recent GI bleed -patient has not followed up with GI yet, plan for EGD and colonoscopy outpatient Discharge planning- patient going to [facility] upon discharge, pre-CERT pending DVT prophylaxis-not indicated, chronically anticoagulated with Eliquis This patient was seen by Cassi Boyd NP-C under the supervision of Dr. West. 13 minutes spent in clinical coordination of patient's plan of care. Documented by User: Dr. Fe West MD 09/26/21 14:20 Objective Data Lab / Micro Data Result Diagrams: 09/26/21 04:55 09/26/21 04:55 Assessment & Plan Assessment/Plan (1) Congestive heart failure: (2) New onset atrial fibrillation: Charges/Coding Addendum Addendum: This patient was seen in conjunction with Familia Boyd NP.? I have independently interviewed and examined the patient and reviewed pertinent historical, laboratory, and other data. I have reviewed her note and concur with her documentation Patient was seen and examined.?No new complains. No acute events. [facility]. Physical Exam: Gen: Comfortable, not pale, not jaundiced, remains on 2 L of oxygen CVS:HS I +II, regular, no murmurs RESP: Diminished at lung bases GI: BS present and normal, soft, nontender, no palpable organs EXT:No edema, tenderness on range of motion of the right knee and ankle ASSESSMENT: 1. Acute exacerbation of heart failure with preserved EF, EF 72% 2. Hypokalemia, replaced 3. Paroxysmal A. fib with RVR 4. Acute hypoxic respiratory failure 5. 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 Hypertension 7. Type II DM Plan: Continue on Lasix 40mg po BID Continue Lantus, Premeal insulin and ISS Continue on amiodarone Continue scheduled Tylenol Time spent coordinating all aspects of patient's care, discussing with nursin minutes Visit Charges Inpatient E&M: 40017 Subs Hosp L2
--- NOTE | 2021-09-26 15:49 | CASEMGMT ---
Social Work Case sent to peer to peer for patient custodial approval. This social services specialist updated patient and physician. Physician plans to call [phone] opt. 5 for peer to peer. Social Work to continue to follow. Oleg WILKES, AYSHA
[2021-09-26] MEDS: Furosemide 80 MG Tablet PO (16:52)
[2021-09-26 17:10] LABS: Bedside Glucose 79 mg/dL (74-106)
[2021-09-26 18:35] LABS: Bedside Glucose 139 mg/dL (74-106)
[2021-09-26] MEDS: Atorvastatin Calcium 40 MG Tablet PO (21:48)
[2021-09-26] MEDS: hydrALAZINE 50 MG Tablet PO (21:49)
[2021-09-26 22:26] LABS: Bedside Glucose 132 mg/dL (74-106)
[2021-09-27] VITALS (19 sets, daily range): BP systolic 133–158; BP diastolic 57–68; PULSE 56–73; RESP 14–18; TEMP 36.4–36.7; O2SAT 92–99
[2021-09-27] MEDS: oxyCODONE 5 MG Tablet 10 MG PO ×4 (03:43→19:33)
--- NOTE | 2021-09-27 04:35 | NURSING ---
This rn assuming care of pt at this time.
[2021-09-27] MEDS: Levothyroxine 50 MCG Tablet PO (05:20)
[2021-09-27] MEDS: Acetaminophen 500 MG Tablet 1000 MG PO ×3 (05:20→21:55)
[2021-09-27] MEDS: Amiodarone 200 MG Tablet PO ×2 (05:21→21:45)
[2021-09-27] MEDS: hydrALAZINE 50 MG Tablet PO ×3 (05:21→21:44)
[2021-09-27 05:33] LABS: Absolute Lymphocyte Count 1.89 X10^3/uL (0.83-4.51); Absolute Neutrophil Count 5.5 X10^3/uL (2.0-7.7); Basophil# 0.06 X10^3/uL; Basophil% 0.6 % (0-1); Eosinophil# 0.65 X10^3/uL; Hemoglobin 12.2 g/dL (12.0-15.0); Lymphocyte # 1.89 X10^3/ul (0.83-4.51); Lymphocyte % 20.3 % (19-41); Mean Corpuscular Hgb 30.6 pg (27.0-32.0); Mean Corpuscular Volume 92.7 fL (81-99); Mean Platelet Vol. 10.7 fl (6.2-12.0); Monocyte# 1.15 X10^3/uL; Monocyte% 12.4 % (0-10); NRBC Flagged by Analyzer 0 % (0-5); Neutrophil # 5.49 X10^3/uL (2.7-7.7); Neutrophil % 59.1 % (47-70); Platelet Count 244 K/mm3 (150-450); RBC Distribution Width CV 13.3 % (11.6-14.6); RBC Distribution Width SD 45.7 fl (35.1-43.9); Red Blood Count 3.99 M/mm3 (4.2-5.4); White Blood Count 9.3 K/mm3 (4.4-11.0)
[2021-09-27 06:03] LABS: ALB/GLOB Ratio 0.6 RATIO (0.9-2.4); AST(SGOT) 16 U/L (15-37); Alanine Aminotransfer ALT/SGPT 32 U/L (13-56); Albumin, Serum 2.8 g/dL (3.2-5.0); Alkaline Phosphatase 122 U/L (45-117); Anion Gap 6 (5-15); BUN 50 mg/dL (7-18); BUN/Creat Ratio 26.5 RATIO (10-20); Calcium,Total 8.8 mg/dL (8.5-10.1); Chloride 98 mmol/L (98-107); Creatinine, Serum 1.89 mg/dL (0.55-1.02); EST Glomerular Filtration Rate 27 mL/min (>60); Est Glom Filt Rate - Afr Amer 33 mL/min (>60); Estimated Creatinine Clearance 18.33 ml/min; Globulin 4.5 g/dL (2.2-4.2); Glucose 156 mg/dL (74-106); Potassium 3.7 mmol/L (3.5-5.1); Protein, Total 7.3 g/dL (6.4-8.2); Sodium Level 134 mmol/L (136-145)
[2021-09-27] MEDS: Insulin Lispro 100 UNIT/ML INSULN.PEN SC ×3 (06:35→21:54)
[2021-09-27 06:55] LABS: Bedside Glucose 174 mg/dL (74-106)
[2021-09-27] MEDS: Glucerna Shake 120 ML LIQUID PO ×3 (08:31→17:31)
[2021-09-27] MEDS: Insulin Glargine-YFGN 100 UNIT/ML Pen 75 UNIT SC (08:34)
[2021-09-27] MEDS: Potassium Chloride Oral Tablet 20 MEQ 40 MEQ PO (08:36)
[2021-09-27] MEDS: Cholecalciferol (VIT D3) 25 MCG TABLET (1,000 UNITS) PO (08:37)
[2021-09-27] MEDS: Tolterodine Tartrate 2 MG CAP.SA PO (08:37)
[2021-09-27] MEDS: DULoxetine Hcl 20 MG Capsule PO (08:37)
[2021-09-27] MEDS: Aspirin E.C. 81 MG Tablet PO (08:37)
[2021-09-27] MEDS: Furosemide 80 MG Tablet PO (08:38)
[2021-09-27] MEDS: APIXABAN 2.5 MG TABLET PO ×2 (08:38→21:45)
[2021-09-27] MEDS: Pantoprazole Sodium 40 MG Tablet PO (08:39)
[2021-09-27] MEDS: Metoprolol Tartrate 25 MG Tablet PO ×2 (08:39→21:48)
[2021-09-27] MEDS: Ranolazine 500 MG Tablet PO ×2 (08:40→21:49)
--- NOTE | 2021-09-27 08:42 | PCM.PN.CARD ---
Subjective Subjective The patient states she is breathing better now than she has for quite some time. She was up and ambulating in the room yesterday. She was wearing oxygen. She states that her breathing did appear to be better overall compared to prior to her hospitalization. Objective Data Vital Signs: Vital Signs Temp Pulse Resp BP Pulse Ox O2 Del Method O2 Flow Rate 97.8 F 62 18 133/63 H 95 Room Air 1 09/27/21 03:30 09/27/21 07:27 09/27/21 03:48 09/27/21 05:21 09/27/21 07:04 09/27/21 08:08 09/27/21 07:04 FiO2 40 09/25/21 02:25 Oxygen Flow Rate (L/min) 1 Oxygen Delivery Method Room Air Weight: 167 lb 5.294 oz Body Mass Index (BMI) 30.4 Intake & Output: Intake and Output for Last 24 Hours 09/25/21 09/26/21 09/27/21 23:59 23:59 23:59 Intake Total 1200 / 1200 830 / 830 60 / 60 Output Total 800 / 1100 580 / 580 Balance 400 / 100 250 / 250 60 / 60 Lab / Micro Data Result Diagrams: 09/27/21 05:25 09/27/21 05:25 Labs: Laboratory Results - last 24 hr 09/26/21 07:57: POC Glucose 189 H 09/26/21 11:04: POC Glucose 163 H 09/26/21 16:51: POC Glucose 79 09/26/21 18:17: POC Glucose 139 H 09/26/21 21:31: POC Glucose 132 H 09/27/21 05:25: WBC 9.3, RBC 3.99 L, Hgb 12.2, Hct 37.0, MCV 92.7, MCH 30.6, MCHC 33.0, RDW Std Deviation 45.7 H, RDW Coeff of Laquita 13.3, Plt Count 244, MPV 10.7, Immature Gran % (Auto) 0.600, Neut % (Auto) 59.1, Lymph % (Auto) 20.3, Morrison % (Auto) 12.4 H, Eos % (Auto) 7.0 H, Baso % (Auto) 0.6, Absolute Neuts (auto) 5.5, Absolute Lymphs (auto) 1.89, Nucleated RBC % 0 09/27/21 05:25: Sodium 134 L, Potassium 3.7, Chloride 98, Carbon Dioxide 30.0, Anion Gap 6, BUN 50 H, Creatinine 1.89 H, Estim Creat Clear Calc 18.33, Est GFR (MDRD) Af Amer 33 L, Est GFR (MDRD) Non-Af 27 L, BUN/Creatinine Ratio 26.5 H, Glucose 156 H, Calcium 8.8, Total Bilirubin 0.30, AST 16, ALT 32, Alkaline Phosphatase 122 H, Total Protein 7.3, Albumin 2.8 L, Globulin 4.5 H, Albumin/Globulin Ratio 0.6 L 09/27/21 06:33: POC Glucose 174 H Cardiology Labs/Tests 09/27/21 05:25: WBC 9.3, RBC 3.99 L, Hgb 12.2, Hct 37.0, MCV 92.7, MCH 30.6, MCHC 33.0, Plt Count 244, MPV 10.7, Immature Gran % (Auto) 0.600, Neut % (Auto) 59.1, Lymph % (Auto) 20.3, Morrison % (Auto) 12.4 H, Eos % (Auto) 7.0 H, Baso % (Auto) 0.6, Absolute Neuts (auto) 5.5, Nucleated RBC % 0 09/27/21 05:25: Sodium 134 L, Potassium 3.7, Chloride 98, Carbon Dioxide 30.0, Anion Gap 6, BUN 50 H, Creatinine 1.89 H, Est GFR (MDRD) Af Amer 33 L, Est GFR (MDRD) Non-Af 27 L, BUN/Creatinine Ratio 26.5 H, Glucose 156 H, Calcium 8.8, Total Bilirubin 0.30 Rhythm: Sinus rhythm Physical Exam Const alert, oriented x3 and no apparent distress Orientation / Consciousness: awake HEENT normocephalic, head/scalp atraumatic and hearing grossly normal bilaterally Head and Scalp: normocephalic Eyes PERRL, EOMs intact bilaterally, conjunctivae normal and no scleral icterus Neck full ROM, supple and no JVD Chest inspection of chest normal Resp normal respiratory effort Auscultation: rhonchi throughout (Scattered: Faint:) Cardio regular rate, regular rhythm, S1 normal heart sound and S2 normal heart sound GI normal to inspection, nondistended, normoactive bowel sounds, soft to palpation and non-tender Extremity normal to inspection, full ROM and no pedal edema Neuro oriented x3, moves all extremities and no focal motor deficits Sensorium / Orientation: awake and alert Psych mental status grossly normal and affect normal Assessment & Plan Assessment/Plan (1) Abnormal cardiac enzyme level: PLAN: The patient has mildly elevated cardiac enzymes. They have not significantly changed with respect to an increase or decrease. These enzymes may be secondary to the patient's atrial fibrillation and acute on chronic heart failure with preserved ejection fraction superimposed upon her underlying chronic cardiovascular disease process. At the present time her ECG is demonstrated no acute ST/T wave abnormalities. The patient has been reassessed with a transthoracic echocardiogram. Her overall left ventricular wall motion and systolic function appear to be preserved. The patient has undergone a recent pharmacologic stress nuclear imaging study with the findings as noted. Her most recent cardiac catheterization was reviewed. The patient's case was discussed with her. At the present time based upon a combination of factors/comorbidities the consensus is to continue conservative medical management with no plans for repeat invasive evaluation. (2) PAF (paroxysmal atrial fibrillation): PLAN: She has a history of paroxysmal atrial fibrillation. At the present time she appears to be in sinus rhythm. She will continue rate control therapy. She will continue her antiarrhythmic therapy with amiodarone taper. She will continue anticoagulant therapy as deemed appropriate. (3) Acute on chronic heart failure with preserved ejection fraction (HFpEF): PLAN: The patient appears to have findings concerning for acute on chronic heart failure with preserved ejection fraction. She is being monitored. She has undergone laboratory evaluation, ECG evaluation, and radiologic studies. At the moment it appears prudent to continue medical therapy with diuretic therapy. She is currently on oral furosemide therapy. Her dose is being adjusted. She appears to be improved overall. Over time her renal function and electrolytes will need to be followed. (4) CAD (coronary artery disease): PLAN: Again the patient has a history of underlying CAD. She has undergone previous PCI and CABG. Her most recent diagnostic cardiac catheterization is noted. At the moment she will continue to be monitored and followed. She will continue medical therapy as tolerated. (5) Presence of stent in coronary artery: PLAN: The patient has a history of PCI. Her most recent cardiac catheterization report is noted. As she has greater than 1 year from her previous PCI and is now requiring anticoagulant therapy it was felt reasonable that the patient's medicines be adjusted. Thus she will continue her aspirin therapy on her anticoagulant therapy. Her antiplatelet therapy with clopidogrel/Plavix will be placed on hold. (6) History of coronary artery bypass graft x 3: PLAN: The patient has a history of CABG. She has undergone previous cardiac catheterization. Based upon that study it appears that her SVG to the first OM was considered occluded. (7) Carotid stenosis, left: PLAN: The patient has a history of carotid artery disease as well. She will need to continue medical management. (8) Pure hypercholesterolemia: PLAN: She should continue medical therapy as best as tolerated. (9) Essential hypertension: PLAN: Her blood pressure will need to be followed for any significant changes that warrant alteration in her medical therapy. (10) Chronic renal failure, stage 3 (moderate): QUALIFIERS: Chronic kidney disease stage 3 subtype: stage 3b (GFR 30-44) Qualified Code(s): N18.32 - Chronic kidney disease, stage 3b PLAN: Her renal insufficiency does need to be taken into consideration with respect to her medications as well as any future invasive cardiovascular studies such as cardiac catheterization requiring IV contrast. This is based upon the concerns of potential IV contrast related nephropathy and worsening renal function. (11) Leukocytosis: PLAN: The patient did have findings compatible with leukocytosis. The etiology is unclear as to whether this is a leukemoid reaction or related to an underlying infectious disease process or a noninfectious disease process. This may need further evaluation by internal medicine. (12) Lower GI bleeding: PLAN: The patient has had a recent history of lower GI bleeding per rectum. This led to the recommendation to place her antiplatelet therapy on hold pending further gastrointestinal evaluation. Her spouse states that he did not place her antiplatelet therapy on hold. The patient states she has not yet had her endoscopy procedures. In the interim she states her bleeding appears to have stopped. Thus far she appears to be tolerating combination of antiplatelet agents and anticoagulant agents. (13) Hypothyroidism: QUALIFIERS: Hypothyroidism type: acquired Qualified Code(s): E03.9 - Hypothyroidism, unspecified PLAN: The patient has a history of hypothyroidism. She will continue her medical management. (14) Broken ribs: PLAN: The patient has a history of rib fractures. This can lead to her chronic chest discomfort. However, she is concerned she had chest discomfort prior to her fall rib fractures as well. (15) Leg pain: PLAN: The patient continues to complain of left lower extremity pain and not being able to bear weight on the left lower extremity. She has undergone additional evaluation by internal medicine. At the moment it is unclear as to the exact etiology of her leg discomfort. Addt'l Comments Overall she will continue medical management with adjustment of her medicines based upon her clinical condition and her objective studies such as her renal function, electrolytes, etc. She states that she is planning, when leaving the hospital, to spend time at an extended care facility for additional OT/PT type support prior to returning home. Also, depending upon her clinical course, she may or may not require home O2 therapy. This note was generated using a voice recognition system and there may be incorrect words, spelling or punctuation that were not noted when reviewing the office note prior to saving.
[2021-09-27] MEDS: Gabapentin 300 MG Capsule PO ×2 (08:44→21:55)
[2021-09-27] MEDS: Lidocaine 5% Patch 1 PATCH TOPICAL (09:06)
[2021-09-27 11:51] LABS: Bedside Glucose 267 mg/dL (74-106)
[2021-09-27] MEDS: Meclizine 12.5 MG Tablet PO (14:01)
--- NOTE | 2021-09-27 14:42 | CASEMGMT ---
Patient was denied by insurance. SW notified physician and patient. SW provided patient with a list of HH providers including quality and resource use data and consistent with the patient?s preferred geographic region, medical needs, and insurance network. SW let patient know the agencies highlighted in pink are the ones that take her insurance. SW asked patient if she would like SW to call her and she said no as he will be coming back in. Miriam Cevallos APPRENTICE JOCKEY RAMANA
--- NOTE | 2021-09-27 14:57 | PN.HOSP_ITS ---
Subjective Subjective Follow-up on acute on chronic heart failure preserved EF/hypoxia/debility: Patient was seen and examined. She feels improved. She is on 1L oxygen. She was denied SNF by insurance. Patient complains of dizziness. Her orthostatic vitals was negative. Objective Data Objective Data Vital Signs: Vital Signs Temp Pulse Resp BP Pulse Ox O2 Del Method O2 Flow Rate 98.1 F 62 15 158/68 H 94 Room Air 1 09/27/21 09:30 09/27/21 13:30 09/27/21 09:30 09/27/21 11:52 09/27/21 09:30 09/27/21 14:00 09/27/21 12:26 FiO2 40 09/25/21 02:25 Oxygen Flow Rate (L/min) 1 Oxygen Delivery Method Room Air Weight: 75.9 kg Body Mass Index (BMI) 30.4 Intake & Output: Intake and Output for Last 24 Hours 09/25/21 09/26/21 09/27/21 23:59 23:59 23:59 Intake Total 1200 / 1200 830 / 830 300 / 300 Output Total 800 / 1100 580 / 580 Balance 400 / 100 250 / 250 300 / 300 Lab / Micro Data Result Diagrams: 09/27/21 05:25 09/27/21 05:25 Labs: Laboratory Results - last 24 hr 09/26/21 16:51: POC Glucose 79 09/26/21 18:17: POC Glucose 139 H 09/26/21 21:31: POC Glucose 132 H 09/27/21 05:25: WBC 9.3, RBC 3.99 L, Hgb 12.2, Hct 37.0, MCV 92.7, MCH 30.6, MCHC 33.0, RDW Std Deviation 45.7 H, RDW Coeff of Laquita 13.3, Plt Count 244, MPV 10.7, Immature Gran % (Auto) 0.600, Neut % (Auto) 59.1, Lymph % (Auto) 20.3, Williams % (Auto) 12.4 H, Eos % (Auto) 7.0 H, Baso % (Auto) 0.6, Absolute Neuts (auto) 5.5, Absolute Lymphs (auto) 1.89, Nucleated RBC % 0 09/27/21 05:25: Sodium 134 L, Potassium 3.7, Chloride 98, Carbon Dioxide 30.0, Anion Gap 6, BUN 50 H, Creatinine 1.89 H, Estim Creat Clear Calc 18.33, Est GFR (MDRD) Af Amer 33 L, Est GFR (MDRD) Non-Af 27 L, BUN/Creatinine Ratio 26.5 H, Glucose 156 H, Calcium 8.8, Total Bilirubin 0.30, AST 16, ALT 32, Alkaline Phosphatase 122 H, Total Protein 7.3, Albumin 2.8 L, Globulin 4.5 H, Albumin/Globulin Ratio 0.6 L 09/27/21 06:33: POC Glucose 174 H 09/27/21 11:28: POC Glucose 267 H Physical Exam Narrative Physical Exam: Gen: Comfortable, not pale, not jaundiced, on 1 L of oxygen CVS:HS I +II, regular, no murmurs RESP: Diminished at lung bases GI: BS present and normal, soft, nontender, no palpable organs EXT:No edema, tenderness on range of motion of the right knee and ankle Assessment & Plan Assessment/Plan (1) Acute on chronic heart failure with preserved ejection fraction (HFpEF): PLAN: Plan 1. Acute exacerbation of heart failure with preserved EF, EF 72% 2. Hypokalemia, replaced 3. Paroxysmal A. fib with RVR 4. Acute hypoxic respiratory failure 5. 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 Hypertension 7. Type II DM Plan: Continue on oral Lasix Trial of meclizine for intermittent dizziness Repeat blood work in am Re-evaluate for home oxygen in am Discharge home with home health if improved Charges/Coding Visit Charges Inpatient E&M: 45009 Subs Hosp L2
[2021-09-27 17:05] LABS: Bedside Glucose 147 mg/dL (74-106)
[2021-09-27] MEDS: Furosemide 20 MG Tablet 60 MG PO (17:31)
[2021-09-27] MEDS: Atorvastatin Calcium 40 MG Tablet PO (21:47)
[2021-09-27 22:15] LABS: Bedside Glucose 195 mg/dL (74-106)
[2021-09-28] VITALS (11 sets, daily range): BP systolic 133–145; BP diastolic 54–61; PULSE 56–65; RESP 14–18; TEMP 36.6; O2SAT 84–96
[2021-09-28] MEDS: oxyCODONE 5 MG Tablet 10 MG PO ×3 (00:28→13:06)
[2021-09-28] MEDS: Levothyroxine 50 MCG Tablet PO (06:31)
[2021-09-28] MEDS: hydrALAZINE 50 MG Tablet PO ×2 (06:31→13:03)
[2021-09-28] MEDS: Acetaminophen 500 MG Tablet 1000 MG PO ×2 (06:31→13:03)
[2021-09-28 07:15] LABS: Bedside Glucose 144 mg/dL (74-106)
[2021-09-28 07:26] LABS: Bedside Glucose 62 mg/dL (74-106)
[2021-09-28 07:26] LABS: Bedside Glucose 60 mg/dL (74-106)
[2021-09-28 07:26] LABS: Bedside Glucose 47 mg/dL (74-106)
[2021-09-28 07:26] LABS: Bedside Glucose 61 mg/dL (74-106)
[2021-09-28] MEDS: Potassium Chloride Oral Tablet 20 MEQ 40 MEQ PO (08:04)
[2021-09-28] MEDS: Insulin Glargine-YFGN 100 UNIT/ML Pen 75 UNIT SC (08:05)
[2021-09-28] MEDS: Glucerna Shake 120 ML LIQUID PO ×2 (08:06→11:07)
--- NOTE | 2021-09-28 08:18 | PN.CARD_ITS ---
Subjective Subjective The patient is a wake and alert. She is currently without O2 therapy. She states she is breathing okay so far. Objective Data Vital Signs: Vital Signs Temp Pulse Resp BP Pulse Ox O2 Del Method O2 Flow Rate 97.9 F 63 14 145/61 H 93 Room Air 92 09/28/21 03:33 09/28/21 06:40 09/28/21 03:33 09/28/21 06:31 09/28/21 07:08 09/28/21 07:54 09/28/21 07:54 FiO2 40 09/25/21 02:25 Oxygen Flow Rate (L/min) 92 Oxygen Delivery Method Room Air Weight: 169 lb 12.095 oz Body Mass Index (BMI) 30.4 Intake & Output: Intake and Output for Last 24 Hours 09/26/21 09/27/21 09/28/21 23:59 23:59 23:59 Intake Total 830 / 830 540 / 540 Output Total 580 / 580 Balance 250 / 250 540 / 540 Lab / Micro Data Result Diagrams: 09/27/21 05:25 09/27/21 05:25 Labs: Laboratory Results - last 24 hr 09/25/21 16:41: POC Glucose 61 L 09/25/21 16:55: POC Glucose 62 L 09/26/21 16:21: POC Glucose 47 L 09/26/21 16:23: POC Glucose 60 L 09/27/21 11:28: POC Glucose 267 H 09/27/21 16:44: POC Glucose 147 H 09/27/21 21:43: POC Glucose 195 H 09/28/21 06:21: POC Glucose 144 H Cardiology Labs/Tests Rhythm: Sinus rhythm Physical Exam Const alert, oriented x3 and no apparent distress Orientation / Consciousness: awake HEENT normocephalic, head/scalp atraumatic and hearing grossly normal bilaterally Head and Scalp: normocephalic Eyes PERRL, EOMs intact bilaterally, conjunctivae normal and no scleral icterus Neck full ROM, supple and no JVD Chest inspection of chest normal Resp normal respiratory effort Auscultation: rhonchi throughout (Scattered: Faint:) Cardio regular rate, regular rhythm, S1 normal heart sound and S2 normal heart sound GI normal to inspection, nondistended, normoactive bowel sounds, soft to palpation and non-tender Extremity normal to inspection, full ROM and no pedal edema Neuro oriented x3, moves all extremities and no focal motor deficits Sensorium / Orientation: awake and alert Psych mental status grossly normal and affect normal Assessment & Plan Assessment/Plan (1) Abnormal cardiac enzyme level: PLAN: The patient has mildly elevated cardiac enzymes. They have not significantly changed with respect to an increase or decrease. These enzymes may be secondary to the patient's atrial fibrillation and acute on chronic heart failure with preserved ejection fraction superimposed upon her underlying chronic cardiovascular disease process. At the present time her ECG is demonstrated no acute ST/T wave abnormalities. The patient has been reassessed with a transthoracic echocardiogram. Her overall left ventricular wall motion and systolic function appear to be preserved. The patient has undergone a recent pharmacologic stress nuclear imaging study with the findings as noted. Her most recent cardiac catheterization was reviewed. The patient's case was discussed with her. At the present time based upon a combination of factors/comorbidities the consensus is to continue conservative medical management with no plans for repeat invasive evaluation. (2) PAF (paroxysmal atrial fibrillation): PLAN: She has a history of paroxysmal atrial fibrillation. At the present time she appears to be in sinus rhythm. She will continue rate control therapy. She will continue her antiarrhythmic therapy with amiodarone taper. She will continue anticoagulant therapy as deemed appropriate. (3) Acute on chronic heart failure with preserved ejection fraction (HFpEF): PLAN: The patient appears to have findings concerning for acute on chronic heart failure with preserved ejection fraction. She is being monitored. She has undergone laboratory evaluation, ECG ev aluation, and radiologic studies. At the moment it appears prudent to continue medical therapy with diuretic therapy. She is currently on oral furosemide therapy. Her dose is being adjusted. She appears to be improved overall. (4) CAD (coronary artery disease): PLAN: Again the patient has a history of underlying CAD. She has undergone previous PCI and CABG. Her most recent diagnostic cardiac catheterization is noted. At the moment she will continue to be monitored and followed. She will continue medical therapy as tolerated. (5) Presence of stent in coronary artery: PLAN: The patient has a history of PCI. Her most recent cardiac catheterization report is noted. As she has greater than 1 year from her previous PCI and is now requiring anticoagulant therapy it was felt reasonable that the patient's medicines be adjusted. Thus she will continue her aspirin therapy on her anticoagulant therapy. Her antiplatelet therapy with clopidogrel/Plavix will be placed on hold. (6) History of coronary artery bypass graft x 3: PLAN: The patient has a history of CABG. She has undergone previous cardiac catheterization. Based upon that study it appears that her SVG to the first OM was considered occluded. (7) Carotid stenosis, left: PLAN: The patient has a history of carotid artery disease as well. She will need to continue medical management. (8) Pure hypercholesterolemia: PLAN: She should continue medical therapy as best as tolerated. (9) Essential hypertension: PLAN: Her blood pressure will need to be followed for any significant changes that warrant alteration in her medical therapy. (10) Chronic renal failure, stage 3 (moderate): QUALIFIERS: Chronic kidney disease stage 3 subtype: stage 3b (GFR 30-44) Qualified Code(s): N18.32 - Chronic kidney disease, stage 3b PLAN: Her renal insufficiency does need to be taken into consideration with respect to her medications as well as any future invasive cardiovascular studies such as cardiac catheterization requiring IV contrast. This is based upon the concerns of potential IV contrast related nephropathy and worsening renal function. (11) Lower GI bleeding: PLAN: The patient has had a recent history of lower GI bleeding per rectum. This led to the recommendation to place her antiplatelet therapy on hold pending further gastrointestinal evaluation. Her spouse states that he did not place her antiplatelet therapy on hold. The patient states she has not yet had her endoscopy procedures. In the interim she states her bleeding appears to have stopped. Thus far she appears to be tolerating combination of antiplatelet agents and anticoagulant agents. (12) Hypothyroidism: QUALIFIERS: Hypothyroidism type: acquired Qualified Code(s): E03.9 - Hypothyroidism, unspecified PLAN: The patient has a history of hypothyroidism. She will continue her medical management. Addt'l Comments The patient states that her third-green party pair will not permit her to go to an ECF/rehab type facility. Thus, she states she is considering home health nursing. She will continue medical management. Procedure Criteria Type of Procedure Procedure Type: Elective Elective Risks - COVID COVID Risk Discussion: The surgeon/proceduralist and patient have discussed in detail the risk of exposure to and/or potential harm posed by the COVID-19 virus with having a surgery/procedure at this time versus the risk of delaying the surgery/procedure . It is not possible to know either the risk of delaying the surgery or procedure or chance of getting an infection with perfect accuracy, but a joint decision was made between the patient and the surgeon/proceduralist to proceed at this time with the scheduled surgery/procedure as indicated on the consent form.
[2021-09-28] MEDS: Lidocaine 5% Patch 1 PATCH TOPICAL (08:59)
[2021-09-28] MEDS: Furosemide 20 MG Tablet 60 MG PO (08:59)
[2021-09-28] MEDS: Gabapentin 300 MG Capsule PO (08:59)
[2021-09-28] MEDS: Metoprolol Tartrate 25 MG Tablet PO (08:59)
[2021-09-28] MEDS: APIXABAN 2.5 MG TABLET PO (08:59)
[2021-09-28] MEDS: DULoxetine Hcl 20 MG Capsule PO (09:00)
[2021-09-28] MEDS: Amiodarone 200 MG Tablet PO (09:00)
[2021-09-28] MEDS: Tolterodine Tartrate 2 MG CAP.SA PO (09:00)
[2021-09-28] MEDS: Pantoprazole Sodium 40 MG Tablet PO (09:00)
[2021-09-28] MEDS: Ranolazine 500 MG Tablet PO (09:00)
[2021-09-28] MEDS: Aspirin E.C. 81 MG Tablet PO (09:00)
[2021-09-28 09:13] LABS: ALB/GLOB Ratio 0.7 RATIO (0.9-2.4); AST(SGOT) 13 U/L (15-37); Alanine Aminotransfer ALT/SGPT 28 U/L (13-56); Albumin, Serum 3.1 g/dL (3.2-5.0); Alkaline Phosphatase 124 U/L (45-117); Anion Gap 6 (5-15); BUN 52 mg/dL (7-18); BUN/Creat Ratio 27.2 RATIO (10-20); Calcium,Total 9.4 mg/dL (8.5-10.1); Chloride 101 mmol/L (98-107); Creatinine, Serum 1.91 mg/dL (0.55-1.02); EST Glomerular Filtration Rate 27 mL/min (>60); Est Glom Filt Rate - Afr Amer 32 mL/min (>60); Estimated Creatinine Clearance 18.14 ml/min; Globulin 4.5 g/dL (2.2-4.2); Glucose 174 mg/dL (74-106); Phosphorus 4.8 mg/dL (2.5-4.9); Potassium 4.1 mmol/L (3.5-5.1); Protein, Total 7.6 g/dL (6.4-8.2); Sodium Level 135 mmol/L (136-145)
--- NOTE | 2021-09-28 09:17 | CASEMGMT ---
Discharge Sample Preparation Supervisor Vesna d/c laboratory chemical assistant checked with patient about home health choices. Patient picked [facility], [facility] and [facility] in no certain order. Vesna called [facility] and Nandini is not taking patients insurance at this moment. Vesna called Lexa at [facility] and left a voicemail and sent referral. Will follow up. Plan: [facility], Waiting Acceptance Vesna Roman Discharge Sample Preparation Supervisor
--- NOTE | 2021-09-28 10:57 | DCINST_ITS ---
Discharge Instructions Diet Discharge Diet: Low fat / Low cholesterol, 8 Cup Fluid Restriction and 2000 mg Sodium Diet Activity Discharge Activity: Return to Normal Activity Follow Up Care Test Results: Test results from this visit will be discussed in further detail at your follow- up appointment, if applicable. Discharge Plan Admission Admit Date/Time: 09/21/21 22:09 Primary Reason for Your Visit: Acute CHF exacerbation Attending Provider: [facility] Primary Care Provider: Fernando Kong Consulting Providers: Roshan Horan ; Galileo Uriostegui ; Lisset Cristobal Instructions Additional Instructions / Restrictions: You are being discharged with oxygen. Continue to use your oxygen all the time. Be careful going near fires. Take all your medications as prescribed. Restrict your fluid intake to less than 1.5 L a day Follow-up with your primary care doctor within 1 to 2-week Follow-up with your double ending machine operator in 2 weeks Discharge Orders/Prescriptions Prescriptions: New lidocaine 5 % Adhesive Patch,Medicated 1 patch topical DAILY 7 Days Qty: 7 0RF Protocol: *Topical Application Instructions APPLICATION INSTRUCTIONS: apply to the left anterior knee 12 hours on, 12 hours off Eliquis 2.5 mg Tablet 2.5 mg PO BID 30 Days Qty: 60 0RF amiodarone 200 mg Tablet 200 mg PO BID 7 Days Qty: 14 0RF amiodarone 200 mg Tablet 200 mg PO DAILY 30 Days Qty: 30 0RF Continued gabapentin 300 mg capsule 300 mg PO BID aspirin [Adult Low Dose Aspirin] 81 mg tablet,delayed release (DR/EC) 81 mg PO DAILY cholecalciferol (vitamin D3) [Vitamin D3] 25 mcg (1,000 unit) capsule 25 mcg PO 2XW Rx Instructions: friday, , levothyroxine 50 mcg tablet 50 mcg PO DAILY atorvastatin 40 mg tablet 40 mg PO QHS lansoprazole 30 mg capsule,delayed release(DR/EC) 30 mg PO DAILY furosemide [Lasix] 40 mg tablet 40 mg PO BID ranolazine 500 mg tablet extended release 12 hr 500 mg PO BID PRN metoprolol tartrate 50 mg tablet 25 mg PO BID hydralazine 50 MG tablet 50 mg PO TID duloxetine 20 MG capsule 20 mg PO DAILY oxybutynin chloride 10 MG tablet extended release 24hr 10 mg PO DAILY Lantus Solostar U-100 Insulin 100 unit/mL (3 mL) insulin pen 72 unit subcut QPM hydrocodone-acetaminophen 5-325 mg tablet 1 tab PO Q6H PRN (Reason: pain) 3 Days Qty: 12 0RF nitroglycerin 0.4 mg tablet, sublingual 0.4 mg SUBLINGUAL Q5M PRN (Reason: chest pain) Qty: 25 3RF Rx Instructions: do not exceed 3 doses per episode clopidogrel 75 mg tablet 75 mg PO DAILY Qty: 90 3RF Hold Instructions: ?GI Bleed, until Eval. by GI insulin lispro [Humalog KwikPen Insulin] 100 unit/mL insulin pen 35 unit subcut TID Qty: 31.5 6RF isosorbide mononitrate 60 mg tablet extended release 24 hr 120 mg PO DAILY Qty: 90 3RF Discontinued diphenhydramine-acetaminophen [Tylenol PM Extra Strength] 25-500 mg tablet 2 tab PO QHS PRN (Reason: Insomnia) lisinopril 20 mg tablet 20 mg PO DAILY amlodipine 10 mg tablet 10 mg PO DAILY oxycodone-acetaminophen [oxycodone-acetaminophen] 5-325 mg tablet 1 tab PO Q6H PRN PRN (Reason: pain) 5 Days Qty: 20 0RF Referrals / Follow Up: Fernando Kong MD [Primary Care Provider] - Within 1 Week Galileo Uriostegui MD [Med Staff - Active Staff] - Within 2 Weeks Disposition Disposition (needs filled in before D/C Order can be placed): Home Health Service
--- NOTE | 2021-09-28 11:01 | CASEMGMT ---
Discharge Air Pollution Analyst Lexa from [facility] reached out patient has been accepted. Start of care of 09/29/2021 Vesna Roman Discharge Air Pollution Analyst
[2021-09-28] MEDS: Insulin Lispro 100 UNIT/ML INSULN.PEN SC (11:07)
--- NOTE | 2021-09-28 11:15 | PCM.DC.SUM ---
Providers Date of Admission: 09/21/21 Date of Discharge: 09/28/21 Primary Care Physician: Dr. Fernando Kong MD Consultations 09/22/21 13:39 Consult: Cardiology Routine Consulting Provider: Galileo Uriostegui Reason for Consult: acute on chronic HFpEF EMERGENT Consult: No MD Notified: Yes Date Notified: 09/22/21 Time Notified: 13:39 Method of Notification: Text Reason For Visit: CHF EXA, AFIB RVR Diagnosis Discharge Diagnosis (1) Abnormal cardiac enzyme level: Status: Acute Code(s): R74.8 - Abnormal levels of other serum enzymes (2) PAF (paroxysmal atrial fibrillation): Status: Acute Code(s): I48.0 - Paroxysmal atrial fibrillation (3) Acute on chronic heart failure with preserved ejection fraction (HFpEF): Status: Acute Code(s): I50.33 - Acute on chronic diastolic (congestive) heart failure (4) CAD (coronary artery disease): Status: Acute Code(s): I25.10 - Atherosclerotic heart disease of [place] coronary artery without angina pectoris (5) Presence of stent in coronary artery: Status: Chronic Code(s): Z95.5 - Presence of coronary angioplasty implant and graft (6) History of coronary artery bypass graft x 3: Status: Chronic Code(s): Z95.1 - Presence of aortocoronary bypass graft (7) Carotid stenosis, left: Status: Acute Code(s): I65.22 - Occlusion and stenosis of left carotid artery (8) Pure hypercholesterolemia: Status: Chronic Code(s): E78.00 - Pure hypercholesterolemia, unspecified (9) Essential hypertension: Status: Chronic Code(s): I10 - Essential (primary) hypertension (10) Chronic renal failure, stage 3 (moderate): Status: Chronic Code(s): N18.3 - Chronic kidney disease, stage 3 (moderate) Qualifiers: Chronic kidney disease stage 3 subtype: stage 3b (GFR 30-44) Qualified Code(s): N18.32 - Chronic kidney disease, stage 3b (11) Lower GI bleeding: Status: Acute Code(s): K92.2 - Gastrointestinal hemorrhage, unspecified (12) Hypothyroidism: Status: Chronic Code(s): E03.9 - Hypothyroidism, unspecified Qualifiers: Hypothyroidism type: acquired Qualified Code(s): E03.9 - Hypothyroidism, unspecified Plan 1. Acute exacerbation of heart failure with preserved EF, EF 72% 2. Hypokalemia, replaced 3. Paroxysmal A. fib with RVR 4. Acute hypoxic respiratory failure 5. CKD stage 3/4 6. Hypertension 7. Type II DM Medications at Discharge Home Medications duloxetine 20 mg capsule,delayed release 20 mg PO DAILY depression 12/20/18 hydralazine 50 mg tablet 50 mg PO TID blood pressure 12/20/18 aspirin 81 mg tablet,delayed release (Adult Low Dose Aspirin) 81 mg PO DAILY heart health 01/01/19 gabapentin 300 mg capsule 300 mg PO BID nerve pain 01/01/19 oxybutynin chloride 10 mg tablet,extended release 24 hr 10 mg PO DAILY BLADDER 03/23/19 nitroglycerin 0.4 mg sublingual tablet 0.4 mg sublingual Q5M PRN chest pain #25 tabs 09/28/19 atorvastatin 40 mg tablet 40 mg PO QHS cholesterol 05/10/20 levothyroxine 50 mcg tablet 50 mcg PO DAILY thyroid 05/10/20 lansoprazole 30 mg capsule,delayed release 30 mg PO DAILY reflux 12/08/20 clopidogrel 75 mg tablet 75 mg PO DAILY anti platelet #90 tabs 01/01/21 cholecalciferol (vitamin D3) 25 mcg (1,000 unit) capsule (Vitamin D3) 25 mcg PO 2XW vitamin 06/20/21 furosemide 40 mg tablet (Lasix) 40 mg PO BID 06/20/21 insulin glargine 100 unit/mL (3 mL) subcutaneous pen (Lantus Solostar U-100 Insulin) 72 unit subcut QPM 06/20/21 metoprolol tartrate 50 mg tablet 25 mg PO BID blood pressure 06/20/21 ranolazine 500 mg tablet,extended release,12 hr 500 mg PO BID PRN 06/20/21 insulin lispro 100 unit/mL subcutaneous pen (Humalog KwikPen (U-100) Insulin) 35 unit (0.35 mL) subcut TID #31.5 mL 06/25/21 hydrocodone-acetaminophen 5-325mg 5mg-325mg 1 tab PO Q6H PRN pain 3 days #12 tabs 07/02/21 isosorbide mononitrate 60 mg tablet,extended release 24 hr 120 mg PO DAILY #90 tabs 07/17/21 amiodarone 200 mg tablet 200 mg PO BID 7 days #14 tabs 09/28/21 amiodarone 200 mg tablet 200 mg PO DAILY 30 days #30 tabs 09/28/21 apixaban 2.5 mg tablet (Eliquis) 2.5 mg PO BID 30 days #60 tabs 09/28/21 lidocaine 5 % topical patch 1 patch topical DAILY 7 days #7 ea 09/28/21 Hospital Course Operations None Procedures 2-D Echocardiogram Summary of Care Provided Minutes Spent on Discharge: 40 Hospital Course: 86-year-old female past medical history of heart failure preserved EF, CAD status post CABG who comes in complaining of bilateral leg swelling, progressive shortness of breath ongoing for 2 to 3 weeks. Patient recently fell and injured her right leg. Patient had had imaging in the outpatient that showed no fractures. She stated that she broke her right ribs. Doppler ultrasound of her lower extremities were unremarkable. BMP 1720. Troponins were slightly elevated - 87->76->87. Patient was admitted to the progressive care unit and managed as A. fib with RVR, acute exacerbation of heart failure preserved EF. Cardiology was consulted. Patient was started initially on IV Lasix and that was changed to Lasix drip. Patient continued to diurese. Heart rate became better controlled. She was on amiodarone, metoprolol as well as apixaban. She previously had a history of GI bleed. It was felt that this was a while ago and patient could safely be resumed on apixaban. 2D echo showed EF of 70%, stage II diastolic dysfunction. Patient had hypokalemia hypomagnesemia that were replaced. She was found to be on oxygen. Creatinine was fluctuating. Throughout this hospital stay, patient had a few episodes of hypoglycemia. Her insulin was held at that time. Patient was evaluated by PT and OT recommended for subacute rehab. This was denied by her insurance. She will be discharged home with home health. Patient needed 2 L of oxygen at rest and on ambulation on the day of discharge. Physical Exam Narrative Physical Exam: Gen: Comfortable, not pale, not jaundiced, on 2 L of oxygen CVS:HS I +II, regular, no murmurs RESP: Diminished at lung bases GI: BS present and normal, soft, nontender, no palpable organs EXT:No edema, tenderness on range of motion of the right knee and ankle Weight / BMI Weight Weight: 77 kg Body Mass Index (BMI) 30.4 ABG / Lab / Microbiology Data Result Diagrams: 09/27/21 05:25 09/28/21 08:35 Laboratory: Laboratory Results - last 24 hr 09/25/21 16:41: POC Glucose 61 L 09/25/21 16:55: POC Glucose 62 L 09/26/21 16:21: POC Glucose 47 L 09/26/21 16:23: POC Glucose 60 L 09/27/21 11:28: POC Glucose 267 H 09/27/21 16:44: POC Glucose 147 H 09/27/21 21:43: POC Glucose 195 H 09/28/21 06:21: POC Glucose 144 H 09/28/21 08:35: Sodium 135 L, Potassium 4.1, Chloride 101, Carbon Dioxide 28.0, Anion Gap 6, BUN 52 H, Creatinine 1.91 H, Estim Creat Clear Calc 18.14, Est GFR (MDRD) Af Amer 32 L, Est GFR (MDRD) Non-Af 27 L, BUN/Creatinine Ratio 27.2 H, Glucose 174 H, Calcium 9.4, Phosphorus 4.8, Magnesium 2.0, Total Bilirubin 0.30, AST 13 L, ALT 28, Alkaline Phosphatase 124 H, Total Protein 7.6, Albumin 3.1 L, Globulin 4.5 H, Albumin/Globulin Ratio 0.7 L D/C Instructions Discharge Diet: Low fat / Low cholesterol, 8 Cup Fluid Restriction and 2000 mg Sodium Diet Meaningful Use Info Meaningful Use Diagnoses (Choose all that apply): CHF CHF FANG/ARB ordered at discharge?: No Reason FANG/ARB not ordered?: Not indicated Documented LVEF (%): 70 Discharge Plan Admission Admit Date/Time: 09/21/21 22:09 Primary Reason for Your Visit: Acute CHF exacerbation Attending Provider: Fe West Primary Care Provider: Fernando Kong Consulting Providers: Roshan Horan ; Galileo Uriostegui ; Lisset Cristobal Instructions Additional Instructions / Restrictions: You are being discharged with oxygen. Continue to use your oxygen all the time. Be careful going near fires. Take all your medications as prescribed. Restrict your fluid intake to less than 1.5 L a day Follow-up with your primary care doctor within 1 to 2-week Follow-up with your java groovy developer in 2 weeks Discharge Orders/Prescriptions Prescriptions: New lidocaine 5 % Adhesive Patch,Medicated 1 patch topical DAILY 7 Days Qty: 7 0RF Protocol: *Topical Application Instructions APPLICATION INSTRUCTIONS: apply to the left anterior knee 12 hours on, 12 hours off Eliquis 2.5 mg Tablet 2.5 mg PO BID 30 Days Qty: 60 0RF amiodarone 200 mg Tablet 200 mg PO BID 7 Days Qty: 14 0RF amiodarone 200 mg Tablet 200 mg PO DAILY 30 Days Qty: 30 0RF Continued gabapentin 300 mg capsule 300 mg PO BID aspirin [Adult Low Dose Aspirin] 81 mg tablet,delayed release (DR/EC) 81 mg PO DAILY cholecalciferol (vitamin D3) [Vitamin D3] 25 mcg (1,000 unit) capsule 25 mcg PO 2XW Rx Instructions: friday, , levothyroxine 50 mcg tablet 50 mcg PO DAILY atorvastatin 40 mg tablet 40 mg PO QHS lansoprazole 30 mg capsule,delayed release(DR/EC) 30 mg PO DAILY furosemide [Lasix] 40 mg tablet 40 mg PO BID ranolazine 500 mg tablet extended release 12 hr 500 mg PO BID PRN metoprolol tartrate 50 mg tablet 25 mg PO BID hydralazine 50 MG tablet 50 mg PO TID duloxetine 20 MG capsule 20 mg PO DAILY oxybutynin chloride 10 MG tablet extended release 24hr 10 mg PO DAILY Lantus Solostar U-100 Insulin 100 unit/mL (3 mL) insulin pen 72 unit subcut QPM hydrocodone-acetaminophen 5-325 mg tablet 1 tab PO Q6H PRN (Reason: pain) 3 Days Qty: 12 0RF nitroglycerin 0.4 mg tablet, sublingual 0.4 mg SUBLINGUAL Q5M PRN (Reason: chest pain) Qty: 25 3RF Rx Instructions: do not exceed 3 doses per episode clopidogrel 75 mg tablet 75 mg PO DAILY Qty: 90 3RF Hold Instructions: ?GI Bleed, until Eval. by GI insulin lispro [Humalog KwikPen Insulin] 100 unit/mL insulin pen 35 unit subcut TID Qty: 31.5 6RF isosorbide mononitrate 60 mg tablet extended release 24 hr 120 mg PO DAILY Qty: 90 3RF Discontinued diphenhydramine-acetaminophen [Tylenol PM Extra Strength] 25-500 mg tablet 2 tab PO QHS PRN (Reason: Insomnia) lisinopril 20 mg tablet 20 mg PO DAILY amlodipine 10 mg tablet 10 mg PO DAILY oxycodone-acetaminophen [oxycodone-acetaminophen] 5-325 mg tablet 1 tab PO Q6H PRN PRN (Reason: pain) 5 Days Qty: 20 0RF Referrals / Follow Up: Galileo Uriostegui MD [Med Staff - Active Staff] - Within 2 Weeks Fernando Kong MD [Primary Care Provider] - Within 1 Week Disposition Disposition (needs filled in before D/C Order can be placed): Home Health Service Charges/Coding Visit Charges Inpatient E&M: 77787 Disch Hosp
--- NOTE | 2021-09-28 11:40 | CASEMGMT ---
Addendum entered by Aneta Dasilva 09/28/21 13:07: Call to [facility] pharmacy and per tech, pt's co-pay is $47. Pt/ updated and voice no further questions/concerns/needs. John HENDRICKS CM Original Note: Pt set up with [facility] by GI and d/c planning asst. Pt does not qualify for home oxygen 2L continuous at discharge and order obtained and faxed to [facility] as pt's cpap is thru them and pt had stated previously would like to use them for O2. Pt also to be sent home on Eliquis. This RN CM to room to update pt/ on all, voice understanding. provided Eliquis month free trial card with instruction. Pt to be provided pulse ox from [facility] at discharge. CM to follow for Eliquis cost. John HENDRICKS CM
[2021-09-28 11:41] LABS: Bedside Glucose 219 mg/dL (74-106)
--- NOTE | 2021-09-28 11:56 | PHA.DC.MC ---
Pharmacy Service has performed discharge medication reconciliation and counseling for this patient. 1. APIXABAN 2.5MG PO BID 2. AMIODARONE 200MG PO BID X 7 DAYS, THEN DAILY THEREAFTER 3. LIDOCAINE 5% PATCH 1 PATCH TOPICALLY DAILY The patient's discharge medication list was reviewed for discrepancies and discrepancies were resolved. Home Medications duloxetine 20 mg capsule,delayed release 20 mg PO DAILY depression 12/20/18 hydralazine 50 mg tablet 50 mg PO TID blood pressure 12/20/18 aspirin 81 mg tablet,delayed release (Adult Low Dose Aspirin) 81 mg PO DAILY heart health 01/01/19 gabapentin 300 mg capsule 300 mg PO BID nerve pain 01/01/19 oxybutynin chloride 10 mg tablet,extended release 24 hr 10 mg PO DAILY BLADDER 03/23/19 nitroglycerin 0.4 mg sublingual tablet 0.4 mg sublingual Q5M PRN chest pain #25 tabs 09/28/19 atorvastatin 40 mg tablet 40 mg PO QHS cholesterol 05/10/20 levothyroxine 50 mcg tablet 50 mcg PO DAILY thyroid 05/10/20 lansoprazole 30 mg capsule,delayed release 30 mg PO DAILY reflux 12/08/20 clopidogrel 75 mg tablet 75 mg PO DAILY anti platelet #90 tabs 01/01/21 cholecalciferol (vitamin D3) 25 mcg (1,000 unit) capsule (Vitamin D3) 25 mcg PO 2XW vitamin 06/20/21 furosemide 40 mg tablet (Lasix) 40 mg PO BID 06/20/21 insulin glargine 100 unit/mL (3 mL) subcutaneous pen (Lantus Solostar U-100 Insulin) 72 unit subcut QPM 06/20/21 metoprolol tartrate 50 mg tablet 25 mg PO BID blood pressure 06/20/21 ranolazine 500 mg tablet,extended release,12 hr 500 mg PO BID PRN 06/20/21 insulin lispro 100 unit/mL subcutaneous pen (Humalog KwikPen (U-100) Insulin) 35 unit (0.35 mL) subcut TID #31.5 mL 06/25/21 hydrocodone-acetaminophen 5-325mg 5mg-325mg 1 tab PO Q6H PRN pain 3 days #12 tabs 07/02/21 isosorbide mononitrate 60 mg tablet,extended release 24 hr 120 mg PO DAILY #90 tabs 07/17/21 amiodarone 200 mg tablet 200 mg PO BID 7 days #14 tabs 09/28/21 amiodarone 200 mg tablet 200 mg PO DAILY 30 days #30 tabs 09/28/21 apixaban 2.5 mg tablet (Eliquis) 2.5 mg PO BID 30 days #60 tabs 09/28/21 lidocaine 5 % topical patch 1 patch topical DAILY 7 days #7 ea 09/28/21 The patient was counseled on the following discharge medications and changes in medications for homegoing were reviewed. The Reason for Use, instructions for use, and potential side effects were reviewed for all new medications. The patient's questions regarding all of their medications were answered. The patient was able to verbally demonstrate an understanding of their discharge medications. Patient counseled by pharmacy service associateEdgar.
== END 2021-09-28 14:42 | disposition home health service (06) | DRG 291 ==
LOC: ED 22:30 → PCU 22:45
PROVIDERS: Nurse Practitioner Family; Student in an Organized Health Care Education/Training Program; Admitting Provider Internal Medicine; Emergency Provider Emergency Medicine; PCP Family Medicine; Visit Provider Internal Medicine
DX: I13.0 Hypertensive heart and chronic kidney disease with heart failure and stage 1 through stage 4 chronic kidney disease, or unspecified chronic kidney disease (principal); I50.33 Acute on chronic diastolic (congestive) heart failure; J96.01 Acute respiratory failure with hypoxia; N18.4 Chronic kidney disease, stage 4 (severe); K62.5 Hemorrhage of anus and rectum; E11.22 Type 2 diabetes mellitus with diabetic chronic kidney disease; I48.0 Paroxysmal atrial fibrillation; Z79.4 Long term (current) use of insulin; I27.20 Pulmonary hypertension, unspecified; I65.22 Occlusion and stenosis of left carotid artery; E78.5 Hyperlipidemia, unspecified; E78.00 Pure hypercholesterolemia, unspecified; E87.6 Hypokalemia; M79.7 Fibromyalgia; G47.33 Obstructive sleep apnea (adult) (pediatric); E03.9 Hypothyroidism, unspecified; I25.10 Atherosclerotic heart disease of native coronary artery without angina pectoris; Z79.01 Long term (current) use of anticoagulants; I49.3 Ventricular premature depolarization; Z79.02 Long term (current) use of antithrombotics/antiplatelets; Z79.82 Long term (current) use of aspirin; N28.1 Cyst of kidney, acquired; Z51.5 Encounter for palliative care; Z95.5 Presence of coronary angioplasty implant and graft; Z95.1 Presence of aortocoronary bypass graft
CPT/HCPCS: 36415; 71045; 73562; 80048; 80053; 80061; 82962; 83735; 83880; 84100; 84443; 84484; 85025; 93005; 93306; 93970; 94002; 94003; 94762; 97110; 97116; 97162; 97165; 97530; 97535; 97802; 97803; 99251; 99285; J7040; A4216; G0463; J1940

== ENCOUNTER 2021-10-01 05:51 | Emergency (ER) | payer MEDICARE, SELFPAY ==
[2021-06-18 13:40] VITALS: BMI 28.7
[2021-10-01 05:53] VITALS: BP 161/67; PULSE 70; RESP 16; TEMP 36.4; O2SAT 95; BMI 34.3
--- NOTE | 2021-10-01 06:05 | EX.ED.DYSGE1 ---
HPI History of Present Illness Chief Complaint: General Illness Informant: patient Onset/Context/Timing Onset: Today Context: Onset with activity (Sleeping) Quality: Bleeding Location: Mouth Current Severity: Gone Maximum Severity: Mild Worsened by: Nothing Relieved by: Nothing in particular Associated Symptoms Associated Symptoms: Denies Narrative Narrative: Patient woke up with blood coming out of her mouth this morning. She did not do anything in particular to get it to stop. She states the prior morning 24 hours ago, she had the same thing but did not tell anybody about it. She is on Eliquis and for that reason they came to the ER for evaluation. Daughter also states that her blood sugar was around 400 earlier in the morning when they woke her up, they gave her injection of lispro in about an hour and 15 minutes later it was 290. She has a history of very difficult to control blood sugars. [facility] Medical History (HFpEF) heart failure with preserved ejection fraction Angina pectoris Atherosclerotic heart disease of [place] coronary artery without angina pectoris Broken ribs CAD (coronary artery disease) Carotid stenosis, left Chest pain Chronic renal failure, stage 3 (moderate) Coronary artery disease CPAP (continuous positive airway pressure) dependence Debility Diabetes Diabetes mellitus, type 2 Dyspnea on exertion Edema Essential hypertension Fatigue Fibromyalgia GERD (gastroesophageal reflux disease) History of stroke Hypothyroidism Intertrigo Lumbosacral radiculopathy Microalbuminuria Non-smoker Obstructive sleep apnea 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 long wall shear operator (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 Presence of stent in coronary artery (~12/11/18) Pure hypercholesterolemia Renal cancer Shortness of breath Sleep apnea Stroke/cerebrovascular accident TIA (transient ischemic attack) Home Medications duloxetine 20 mg capsule,delayed release 20 mg PO DAILY depression 12/20/18 [History Last Taken 08/10/19] hydralazine 50 mg tablet 50 mg PO TID blood pressure 12/20/18 [History Last Taken 09/17/19 05:30] aspirin 81 mg tablet,delayed release (Adult Low Dose Aspirin) 81 mg PO DAILY heart health 01/01/19 [History Last Taken 08/10/19] gabapentin 300 mg capsule 300 mg PO BID nerve pain 01/01/19 [History Last Taken 03/23/19] oxybutynin chloride 10 mg tablet,extended release 24 hr 10 mg PO DAILY BLADDER 03/23/19 [History Last Taken 03/23/19] nitroglycerin 0.4 mg sublingual tablet 0.4 mg sublingual Q5M PRN chest pain #25 tabs 09/28/19 [Rx Last Taken Unknown] atorvastatin 40 mg tablet 40 mg PO QHS cholesterol 05/10/20 [History Last Taken Unknown] levothyroxine 50 mcg tablet 50 mcg PO DAILY thyroid 05/10/20 [History Last Taken Unknown] lansoprazole 30 mg capsule,delayed release 30 mg PO DAILY reflux 12/08/20 [History Last Taken Unknown] clopidogrel 75 mg tablet 75 mg PO DAILY anti platelet #90 tabs 01/01/21 [Rx Last Taken Unknown] cholecalciferol (vitamin D3) 25 mcg (1,000 unit) capsule (Vitamin D3) 25 mcg PO 2XW vitamin 06/20/21 [History Last Taken Unknown] furosemide 40 mg tablet (Lasix) 40 mg PO BID 06/20/21 [History Last Taken Unknown] insulin glargine 100 unit/mL (3 mL) subcutaneous pen (Lantus Solostar U-100 Insulin) 72 unit subcut QPM 06/20/21 [History Last Taken Unknown] metoprolol tartrate 50 mg tablet 25 mg PO BID blood pressure 06/20/21 [History Last Taken Unknown] ranolazine 500 mg tablet,extended release,12 hr 500 mg PO BID PRN 06/20/21 [History Last Taken Unknown] insulin lispro 100 unit/mL subcutaneous pen (Humalog KwikPen (U-100) Insulin) 35 unit (0.35 mL) subcut TID #31.5 mL 06/25/21 [Rx Last Taken Unknown] hydrocodone-acetaminophen 5-325mg 5mg-325mg 1 tab PO Q6H PRN pain 3 days #12 tabs 07/02/21 [Rx Last Taken Unknown] isosorbide mononitrate 60 mg tablet,extended release 24 hr 120 mg PO DAILY #90 tabs 07/17/21 [Rx Last Taken Unknown] amiodarone 200 mg tablet 200 mg PO BID 7 days #14 tabs 09/28/21 [Rx Last Taken Unknown] amiodarone 200 mg tablet 200 mg PO DAILY 30 days #30 tabs 09/28/21 [Rx Last Taken Unknown] apixaban 2.5 mg tablet (Eliquis) 2.5 mg PO BID 30 days #60 tabs 09/28/21 [Rx Last Taken Unknown] lidocaine 5 % topical patch 1 patch topical DAILY 7 days #7 ea 09/28/21 [Rx Last Taken Unknown] Allergy/AdvReac Type Severity Reaction Status Date / Time latex Allergy Rash Verified 09/21/21 18:04 adhesive tape AdvReac Rash Verified 09/21/21 18:04 ticagrelor [From Brilinta] AdvReac Shortness Verified 09/21/21 18:04 of breath Family History Father Heart disease Mother Breast cancer Diabetes Heart disease Surgical History H/O hemorrhoidectomy History of appendectomy History of back surgery History of cholecystectomy History of coronary artery bypass graft x 3 (~04/08/16) History of coronary artery stent placement History of hysterectomy History of knee replacement procedure of right knee History of right and left heart catheterization (LHC) (~08/10/19) History of right inguinal hernia repair Hx of CABG Postlaminectomy syndrome of lumbar region Presence of coronary angioplasty implant and graft (~12/11/18) Social History Smoking Status: Never smoker alcohol intake: never substance use type: does not use caffeine: No ROS ROS ED Constitutional Constitutional ED: Denies chills or fever(s) Eyes Eyes: Denies blurry vision ENT ENT ED: Reports other Details: No oral pain. Was tasting blood earlier with bleeding that is now resolved. No nosebleed or nasal pain. ; Denies ear pain, rhinorrhea or sore throat Cardiovascular Cardiovascular: Denies chest pain Respiratory/Chest Respiratory/Chest: Denies cough or dyspnea Gastrointestinal Gastrointestinal: Denies abdominal pain, nausea or vomiting Neurologic Neurologic: Denies headache(s) Hematologic/Lymphatic Hematologic/Lymphatic: Reports easy bleeding and easy bruising EXAM Physical Exam Const Vital Signs: 10/01/21 05:53 10/01/21 06:00 Temperature 97.5 F L Temperature Source Temporal Pulse Rate 70 Respiratory Rate 16 Respiratory Effort Normal Non-Labored Respiratory Pattern Normal Blood Pressure 161/67 H Blood Pressure Mean 98 Pulse Ox 95 Oxygen Delivery Method Room Air Positive well nourished and well developed General Appearance ED: well developed and NAD HEENT Reports moist mucous membranes HEENT Narrative: Extremely poor dentition. Multiple decayed and sharp, jagged teeth of the ones that are left. None of them are tender. None actively bleeding or evidence of recent bleeding. Normal gingiva. And sublingual area, there is a punctate area of soft tissue in the midline with a clot on it, no active bleeding, nontender. No distention. Normal tongue otherwise. No trismus. Normal posterior oropharynx. No other soft tissue mucosal abnormalities suspicious of bleeding source. Negative for trauma Eyes PERRL and EOMs intact bilaterally Neck no lymphadenopathy and supple Resp normal respiratory effort and clear to auscultation bilaterally Cardio regular rate and regular rhythm Rate: Negative for tachycardic GI normal to inspection, nondistended, normoactive bowel sounds and non-tender Neuro oriented x3, CN's II-XII intact bilaterally and no sensory deficits noted Psych mental status grossly normal Skin no rashes or lesions noted, no wounds and skin turgor normal MDM MDM MDM Narrative Medical decision making narrative: At this time the bleeding is stopped. She states she feels fine. She wears CPAP at night, which may or may not of had anything to do with this, she also has very poor dentition, and it would be easy for her to appraise her mucosa. I advise avoiding hot beverages and holding her Eliquis for 2 doses. I discussed with her and family that it is risk-benefit, and if she has had bleeding from her mouth for the last 2 days/mornings I would hold it temporarily, she has had strokes in the past and atrial fibrillation but is not in A. fib right now, I think the risk of doing this would be relatively low and they are in agreement. Rhythm Strip Rhythm Strip: Sinus Rhythm Rate: 75 Ectopy: None Discharge Plan Triage Chief Complaint: General Illness ED Provider: Nikolai Salgado Dx/Rx/DC Orders Clinical Impression: Bleeding from mouth, Anticoagulated Prescriptions: Continued gabapentin 300 mg capsule 300 mg PO BID aspirin [Adult Low Dose Aspirin] 81 mg tablet,delayed release (DR/EC) 81 mg PO DAILY cholecalciferol (vitamin D3) [Vitamin D3] 25 mcg (1,000 unit) capsule 25 mcg PO 2XW Rx Instructions: friday, , levothyroxine 50 mcg tablet 50 mcg PO DAILY atorvastatin 40 mg tablet 40 mg PO QHS lansoprazole 30 mg capsule,delayed release(DR/EC) 30 mg PO DAILY furosemide [Lasix] 40 mg tablet 40 mg PO BID ranolazine 500 mg tablet extended release 12 hr 500 mg PO BID PRN metoprolol tartrate 50 mg tablet 25 mg PO BID hydralazine 50 MG tablet 50 mg PO TID duloxetine 20 MG capsule 20 mg PO DAILY oxybutynin chloride 10 MG tablet extended release 24hr 10 mg PO DAILY Lantus Solostar U-100 Insulin 100 unit/mL (3 mL) insulin pen 72 unit subcut QPM hydrocodone-acetaminophen 5-325 mg tablet 1 tab PO Q6H PRN (Reason: pain) 3 Days Qty: 12 0RF lidocaine 5 % Adhesive Patch,Medicated 1 patch topical DAILY 7 Days Qty: 7 0RF Protocol: *Topical Application Instructions APPLICATION INSTRUCTIONS: apply to the left anterior knee 12 hours on, 12 hours off amiodarone 200 mg Tablet 200 mg PO BID 7 Days Qty: 14 0RF amiodarone 200 mg Tablet 200 mg PO DAILY 30 Days Qty: 30 0RF nitroglycerin 0.4 mg tablet, sublingual 0.4 mg SUBLINGUAL Q5M PRN (Reason: chest pain) Qty: 25 3RF Rx Instructions: do not exceed 3 doses per episode clopidogrel 75 mg tablet 75 mg PO DAILY Qty: 90 3RF Hold Instructions: ?GI Bleed, until Eval. by GI insulin lispro [Humalog KwikPen Insulin] 100 unit/mL insulin pen 35 unit subcut TID Qty: 31.5 6RF isosorbide mononitrate 60 mg tablet extended release 24 hr 120 mg PO DAILY Qty: 90 3RF Held Eliquis 2.5 mg Tablet 2.5 mg PO BID 30 Days Qty: 60 0RF Hold Instructions: Resume on 10/02/21. Primary Care Provider: Fernando Kong Referrals: Fernando Kong MD [Primary Care Provider] - As Needed Activity Restrictions/Additional Instructions: Avoid hot beverages for the next 24-48 hours. Disposition Disposition: Home, Self Care
[2021-10-01 06:44] VITALS: BP 157/87; PULSE 78; RESP 16; O2SAT 95
== END 2021-10-01 06:45 | disposition home or self-care (01) ==
PROVIDERS: Emergency Provider Emergency Medicine; PCP Family Medicine; Visit Provider Emergency Medicine
DX: K13.79 Other lesions of oral mucosa (principal); I50.32 Chronic diastolic (congestive) heart failure; I13.0 Hypertensive heart and chronic kidney disease with heart failure and stage 1 through stage 4 chronic kidney disease, or unspecified chronic kidney disease; E11.22 Type 2 diabetes mellitus with diabetic chronic kidney disease; N18.30 Chronic kidney disease, stage 3 unspecified; I25.10 Atherosclerotic heart disease of native coronary artery without angina pectoris; E78.00 Pure hypercholesterolemia, unspecified; Z79.01 Long term (current) use of anticoagulants; K21.9 Gastro-esophageal reflux disease without esophagitis; E03.9 Hypothyroidism, unspecified; Z86.73 Personal history of transient ischemic attack (TIA), and cerebral infarction without residual deficits; Z99.89 Dependence on other enabling machines and devices; G47.33 Obstructive sleep apnea (adult) (pediatric); Z23 Encounter for immunization
CPT/HCPCS: 90471; 99284

== ENCOUNTER → 2021-10-25 | Outpatient (CLI) | payer MEDICARE, SELFPAY ==
[2021-06-18 13:40] VITALS: BMI 28.7
--- NOTE | 2021-10-25 14:03 | MRI_ITS ---
STUDY: MRI LEFT KNEE REASON FOR EXAM: Left knee pain for 3 weeks, unable to bear weight. TECHNIQUE: Standardized fat and water weighted pulse sequences were obtained in all 3 orthogonal planes. COMPARISON: Radiographs 09/24/2021. FINDINGS: There is a horizontal tear of the inferior articular surface of the posterior horn of the medial meniscus (proton-density sagittal images 32-35). Normal hyaline cartilage of the medial femorotibial compartment. There is a small subchondral stress fracture of the medial femoral condyle (proton-density coronal images 15, 16) with bone edema. Normal medial collateral ligamentous complex (MCL). There is fluid in the semimembranosus bursa (T2 sagittal images 18, 19). Normal lateral meniscus. Normal hyaline cartilage of the lateral femorotibial compartment. There is a small subchondral stress fracture of the lateral femoral condyle (proton-density coronal image 16) with bone edema. Normal proximal tibiofibular articulation. There is mild periligamentous inflammation of the lateral collateral ligament (T2 coronal image 13). Normal popliteus tendon. Normal biceps femoris tendon. Normal anterior cruciate ligament (ACL). Normal posterior cruciate ligament (PCL). Normal congruent patellofemoral articulation. There is arthrosis of the patellofemoral compartment with chondral thinning (T2 sagittal image 10) and mild subchondral bone edema of the patella. Normal medial and lateral patellar retinaculum. Normal visualized quadriceps tendon. Normal patellar tendon. Normal Hoffa''s fat pad. There is a small joint effusion with mild extravasation of fluid. There is mild edema in the lateral subcutis adipose space. The otherwise visualized osseous structures are unremarkable. MRI/Lower Ext Joint Only (Routine) IMPRESSION: Small subchondral stress fractures of the medial and lateral femoral condyles. Medial meniscal tear. Patellofemoral arthrosis. Mild periligamentous inflammation of the lateral collateral ligament. Joint effusion with mild extravasation of fluid. Semimembranosus bursitis. Electronically Signed: Sai Holder MD at 16:51 EDT ,
== END | disposition home or self-care (01) ==
LOC: MRI 12:53
PROVIDERS: PCP Family Medicine; Referring Provider Orthopaedic Surgery; Visit Provider Orthopaedic Surgery
DX: M25.562 Pain in left knee (principal)
CPT/HCPCS: 73721

== ENCOUNTER → 2021-11-14 | Outpatient (CLI) | payer MEDICARE, SELFPAY ==
[2021-06-18 13:40] VITALS: BMI 28.7
[2021-11-14 14:07] LABS: Albumin, Serum 3.5 g/dL (3.2-5.0); BUN 20 mg/dL (7-18); BUN/Creat Ratio 15.4 RATIO (10-20); Calcium,Total 9.4 mg/dL (8.5-10.1); Chloride 101 mmol/L (98-107); EST Glomerular Filtration Rate 42 mL/min (>60); Est Glom Filt Rate - Afr Amer 50 mL/min (>60); Glucose 273 mg/dL (74-106); Potassium 3.4 mmol/L (3.5-5.1); Sodium Level 136 mmol/L (136-145)
== END | disposition home or self-care (01) ==
LOC: POLAB3 11:35
PROVIDERS: PCP Family Medicine; Visit Provider Internal Medicine Nephrology
DX: N18.4 Chronic kidney disease, stage 4 (severe) (principal)
CPT/HCPCS: 36415; 80069

== ENCOUNTER → 2022-01-10 | Outpatient (CLI) | payer MEDICARE, SELFPAY ==
[2021-06-18 13:40] VITALS: BMI 28.7
[2022-01-10 17:29] LABS: BUN 27 mg/dL (7-18); BUN/Creat Ratio 18.6 RATIO (10-20); Calcium,Total 9.5 mg/dL (8.5-10.1); Chloride 98 mmol/L (98-107); Creatinine, Serum 1.45 mg/dL (0.55-1.02); EST Glomerular Filtration Rate 37 mL/min (>60); Est Glom Filt Rate - Afr Amer 44 mL/min (>60); Glucose 236 mg/dL (74-106); Phosphorus 3.4 mg/dL (2.5-4.9); Potassium 3.2 mmol/L (3.5-5.1); Sodium Level 136 mmol/L (136-145)
== END | disposition home or self-care (01) ==
LOC: POLAB3 14:07
PROVIDERS: PCP Family Medicine; Visit Provider Internal Medicine Nephrology
DX: N18.4 Chronic kidney disease, stage 4 (severe) (principal)
CPT/HCPCS: 36415; 80069

== ENCOUNTER → 2022-04-23 | Outpatient (CLI) | payer MEDICARE, SELFPAY ==
[2021-06-18 13:40] VITALS: BMI 28.7
[2022-04-23 15:30] LABS: ALB/GLOB Ratio 0.8 RATIO (0.9-2.4); AST(SGOT) 18 U/L (15-37); Alanine Aminotransfer ALT/SGPT 24 U/L (13-56); Albumin, Serum 3.6 g/dL (3.2-5.0); Alkaline Phosphatase 120 U/L (45-117); Anion Gap 11 (5-15); BUN 50 mg/dL (7-18); BUN/Creat Ratio 29.8 RATIO (10-20); Calcium,Total 8.9 mg/dL (8.5-10.1); Chloride 104 mmol/L (98-107); Creatinine, Serum 1.68 mg/dL (0.55-1.02); EST Glomerular Filtration Rate 31 mL/min (>60); Est Glom Filt Rate - Afr Amer 37 mL/min (>60); Globulin 4.4 g/dL (2.2-4.2); Glucose 296 mg/dL (74-106); Potassium 3.8 mmol/L (3.5-5.1); Sodium Level 139 mmol/L (136-145)
== END | disposition home or self-care (01) ==
LOC: LAB 13:40
PROVIDERS: PCP Family Medicine; Visit Provider Nurse Practitioner Family
DX: E87.6 Hypokalemia (principal)
CPT/HCPCS: 36415; 80053

== ENCOUNTER 2022-05-24 09:33 | Day surgery (SDC) | payer MEDICARE, SELFPAY ==
[2021-06-18 13:40] VITALS: BMI 28.7
[2022-05-24] VITALS (17 sets, daily range): BP systolic 119–198; BP diastolic 60–108; PULSE 61–100; RESP 12–16; TEMP 36.6–36.9; O2SAT 92–98; BMI 30.2
[2022-05-24 10:26] LABS: Bedside Glucose 105 mg/dL (74-106)
[2022-05-24] MEDS: Lactated Ringers 1,000 ML 15 ML IV (10:30)
--- NOTE | 2022-05-24 11:58 | HP.PCM_ITS ---
History and Physical Date of Admission: 05/24/22 [facility] [address] [place] [address] OFFICE VISIT Date of Service:? 04/15/22 MR#: [id number] Acct: [id number] Name:GLORIA PADRON Rep #: [id number] : 1935 ? ? Provider: Dr. Carlos Hernández, DO Age/Sex:? 86/F ? ? Location: [facility] [place] Status: Signed with Addenda ADDENDUM by Dr. Carlos Hernández, DO on 04/15/22 at 1523 Assessment and Plan Assessment and Plan (1) Left knee DJD: ?Status:?Acute (2) Acute medial meniscus tear of left knee: ?Status:?Acute 04/15/22 1523 <Electronically signed by Carlos Hernández DO> Date Carlos Hernández DO cc: ? ~* Signed Intake Intake Visit Reasons:?LEFT KNEE Is patient in pain?: Yes Pain scale (1-10): 8 Allergies latex Allergy (Verified 04/15/22 13:48) Rashadhesive tape Adverse Reaction (Verified 04/15/22 13:48) Rashticagrelor [From Brilinta] Adverse Reaction (Verified 04/15/22 13:48) Shortness of breath Medications aspirin 81 mg tablet,delayed release (Adult Low Dose Aspirin) 81 mg PO DAILY heart health 01/01/19 [History Confirmed 04/15/22] gabapentin 300 mg capsule 300 mg PO BID nerve pain 01/01/19 [History Confirmed 04/15/22] oxybutynin chloride 10 mg tablet,extended release 24 hr 10 mg PO DAILY BLADDER 03/23/19 [History Confirmed 04/15/22] nitroglycerin 0.4 mg sublingual tablet 0.4 mg sublingual Q5M PRN chest pain #25 tabs 09/28/19 [Rx Confirmed 04/15/22] atorvastatin 40 mg tablet 40 mg PO QHS cholesterol 05/10/20 [History Confirmed 04/15/22] levothyroxine 50 mcg tablet 50 mcg PO DAILY thyroid 05/10/20 [History Confirmed 04/15/22] cholecalciferol (vitamin D3) 25 mcg (1,000 unit) capsule (Vitamin D3) 25 mcg PO 2XW vitamin 06/20/21 [History Confirmed 04/15/22] amiodarone 200 mg tablet 200 mg PO DAILY 90 days #90 tabs 10/08/21 [Rx Confirmed 04/15/22] amlodipine 10 mg tablet 10 mg PO DAILY 11/12/21 [History Confirmed 04/15/22] insulin lispro 100 unit/mL subcutaneous pen (Humalog KwikPen (U-100) Insulin) 20 unit subcut TID 11/14/21 [History Confirmed 04/15/22] apixaban 2.5 mg tablet (Eliquis) 2.5 mg PO BID 30 days #60 tabs 11/28/21 [Rx Confirmed 04/15/22] insulin glargine 100 unit/mL (3 mL) subcutaneous pen (Lantus Solostar U-100 Insulin) 32 unit (0.32 mL) subcut QPM #15 mL 11/30/21 [Rx Confirmed 04/15/22] furosemide 20 mg tablet 40 mg PO DAILY 02/14/22 [History Confirmed 04/15/22] isosorbide mononitrate 60 mg tablet,extended release 24 hr 60 mg PO DAILY 02/14/22 [History Confirmed 04/15/22] potassium chloride 20 mEq tablet,extended release 20 meq PO BID 02/14/22 [History Confirmed 04/15/22] clopidogrel 75 mg tablet 75 mg PO DAILY 02/28/22 [History Confirmed 04/15/22] duloxetine 30 mg capsule,delayed release 30 mg PO DAILY 02/28/22 [History Confirmed 04/15/22] hydralazine 100 mg tablet 100 mg PO TID blood pressure 02/28/22 [History Confirmed 04/15/22] metoprolol tartrate 50 mg tablet 50 mg PO BID blood pressure 02/28/22 [History Confirmed 04/15/22] PFSH Medical History? (HFpEF) heart failure with preserved ejection fraction Angina pectoris Atherosclerotic heart disease of [place] coronary artery without angina pectoris Broken ribs CAD (coronary artery disease) CAD (coronary artery disease) Carotid stenosis, left Chest pain Chronic renal failure, stage 3 (moderate) Congestive heart failure Coronary artery disease CPAP (continuous positive airway pressure) dependence Debility Diabetes Diabetes mellitus, type 2 Dyspnea on exertion Edema Essential hypertension Fatigue Fibromyalgia GERD (gastroesophageal reflux disease) History of stroke Hypothyroidism Intertrigo Lower GI bleeding Lumbosacral radiculopathy Microalbuminuria New onset atrial fibrillation Non-smoker Obstructive sleep apnea Osteoarthritis of left knee Other skilled nursing (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 PAF (paroxysmal atrial fibrillation) Presence of stent in coronary artery (~12/11/18) Pure hypercholesterolemia Renal cancer Shortness of breath Sleep apnea Stroke/cerebrovascular accident TIA (transient ischemic attack) Surgical History? H/O hemorrhoidectomy History of appendectomy History of back surgery History of cholecystectomy History of coronary artery bypass graft x 3 (~04/08/16) History of coronary artery stent placement History of hysterectomy History of knee replacement procedure of right knee History of right and left heart catheterization (LHC) (~08/10/19) History of right inguinal hernia repair Hx of CABG Postlaminectomy syndrome of lumbar region Presence of coronary angioplasty implant and graft (~12/11/18) Family History? Father Heart diseaseMother Breast cancer Diabetes Heart disease Social History? Smoking Status:? Never smoker alcohol intake:? never substance use type:? does not use caffeine:? No HPI LEFT KNEE Details: Parts of this documentation were recorded by a scribe, this documentation accurately reflects the service provided and the decisions made by me, Dr. Carlos Hernández, DO 04/15/22 0805. GLORIA PAUL is a 86 year old F here today for follow-up left knee to ramona bagley she had an MRI in October 2021 which showed horizontal tear medial meniscus stress fracture of the medial femoral condyle some patellofemoral arthrosis.? She did have an injection in the knee and pes bursa 11/12/2021.The injection was helpful 100% while it was helpful.? And did have bracing. Patient states that her knee is not doing well and is still pretty painful. States that her knee is? sore. States that she notices painful cracking in her knee whenever she moves it a certain way. Patient describes her pain as a sharp pain and depending on how she moves it, sometimes it gets worse. Patient has popping and clicking. She has instability which is causing her falls. States that she is just taking Tylenol for pain. States that her knee pain is anterior lateral. Ortho Exam General General: Yes no acute distress Neurologic: Yes alert and Yes oriented x3 Psychologic: Yes reasonable and appropriate Left Knee Skin/Wound: Yes CDI, No ecchymosis, No erythema and No swelling Knee ROM: Yes ROM-Extension -20 to 0 and Yes ROM-Flexion 0-140 (115) Examination: Yes med jt line tenderness, No Lat jt line tenderness and Yes McM urray's Test Stability: NML: Anterior Drawer, NML: Posterior Drawer, NML: Valgus 0, NML: Valgus 30, NML: Varus 0 and NML: Varus 30 Apprehension with Lateral Translation: No Patella Grind: Yes head: Normocephalic Atraumatic Chest: symmetrical rise, non-labored breathing, no audible wheeze Abdomen: no guarding, non-rigid Supplemental Info 10/25/2021 MRI left knee: Horizontal tear inferior articular surface posterior horn medial meniscus small subchondral stress fracture of the medial femoral condyle, patellofemoral arthrosis mild subchondral edema of the patella 09/24/2021 x-ray left knee: 3 views, vascular calcifications small joint effusion surgical clips of the posterior medial aspect of the distal thigh mild patellofemoral arthrosis Coding Level of Care Code Off vis,est,level 3 Diagnoses Left knee DJD? M17.12 Acute medial meniscus tear of left knee? S83.242A Assessment and Plan Assessment and Plan (1) Left knee DJD: ?Status:?Acute (2) Acute medial meniscus tear of left knee: ?Status:?Acute Plan Spoke with the patient about her options- knee arthroscopy vs another? steroid injection. Spoke with her about continuing to have anterior knee pain after a knee arthroscopy due to her osteoarthritis. Patient wanted to proceed with a knee arthroscopy.?She will need cardiac clearance have surgery and to stop her blood thinner (she would need to stop or her Eliquis for 3 days Plavix for 5 days and aspirin for 7 days preoperatively).? She can resume these immediately postop.? spoke with her about the surgery procedure and recovery. She should use a walker to ambulate post op. Reviewed the pre-operative plans with the patient. Risks and benefits of the procedure were fully explained, including but not limited to infection, neurovascular injury, continued pain, arthritis, stiffness, need for further surgery, re-injury, DVT, PE, general risks of anesthesia, and loss of limb or life. The patient understands all the risks and does wish to proceed with written consent. Follow up in 2 weeks postop or sooner if pain, swelling, numbness or associated symptoms, or concerns develop.? All questions answered. Patient in agreement of plan. 04/15/22 1522 <Electronically signed by Carlos Hernández DO> Date Carlos Hernández DO Cosigner Signature: Date (if applicable) ? CC: ? ~ I have examined the patient and the H&P has been reviewed. There are no clinical changes since date of exam.
[2022-05-24] MEDS: Cefazolin 2 GM in 0.9% Normal Saline 100 ML IV (12:38)
[2022-05-24] MEDS: Epinephrine (1 mg/ml) 1 MG/ML VIAL (13:24)
[2022-05-24] MEDS: MethylPREDNISolone Acetate 40 MG/ML Vial IM (13:30)
[2022-05-24] MEDS: Lidocaine 1% /Epi 1:100 (20ml) 20 ML Vial (13:30)
--- NOTE | 2022-05-24 13:42 | OP.PCM_ITS ---
Operative Report Date of Procedure: 05/24/22 Preop diagnosis: Left knee medial meniscus tear DJD Postoperative diagnosis: Left knee small radial tear posterior root medial meniscus horizontal tear body medial meniscus small radial tear posterior root lateral meniscus grade III chondromalacia medial femoral condyle medial tibial plateau grade 2 lateral compartment grade 3 with small areas of grade 4 of the patella, loose bodies Procedure: Left knee arthroscopic partial medial partial lateral meniscectomy chondroplasty patella removal of loose body Anesthesia: General Estimated blood loss: 5 mL Tourniquet time: 20 minutes 300 mmHg Complications: none Indication for procedure: 86-year-old female patient who has had ongoing me chanical knee pain did have MRI evidence of medial meniscus tear she had failed conservative treatment including injections the patient did wish to proceed with an elective arthroscopic surgery to attempt to alleviate the symptoms. Risk benefits and alternatives of the procedure were reviewed including risk of bleeding infection nerve artery tissue damage need for further surgery continued pain and expected postoperative course. Procedure: The patient was met in the preoperative holding area. The operative extremity was identified by both patient and physician and family and marked. Patient was brought back to the operating room on a wheeled cart and transferred to the operating table in the supine position. Anesthesia was started. A well- padded tourniquet was placed on the operative extremity. A lower extremity leg quiroga was secured to the operative extremity. The contralateral extremity was well-padded and the end of the bed was flexed to 90 degrees. The patient was prepped and draped in the usual sterile fashion. A timeout was called to ensure the proper patient, procedure, and extremity were being contemplated. 0.5% Marcaine with epinephrine was injected into the planned incisional areas under the skin only. An Esmarch was used to exsanguinate the extremity and the tourniquet was inflated. An 11 blade scalpel was used to make a stab incision in the anterior lateral portal. The arthroscope was inserted into the intercondylar notch and inflow and outflow tubes were attached. Arthroscopic visualization began. The medial compartment was entered. There was some loose bodies which were removed with a shaver, an 18-gauge spinal needle was used to establish the placement for anterior medial portal. An 11 blade scalpel was used to make a stab incision. Blunt probe was inserted followed by a meniscal probe. There was noted to be horizontal tearing of the body of the medial meniscus and a small radial tear of the root of the medial meniscus with use of a biting instrument ArthroCare wand and a shaver partial medial meniscectomy was performed there was some grade 3 cartilage wear of the medial femoral condyle medial tibial plateau but no loose cartilage flaps the ACL was found to be intact. The lateral compartment was entered there is grade II chondromalacia throughout there was a small radial tear in the posterior root of the lateral meniscus which was divided with a shaver The arthroscope was switched to the medial portal to complete the procedure. The medial and lateral gutters were inspected and were free of loose bodies. The patellofemoral joint was inspected and had loose cartilage flaps which were debrided with a shaver performing a chondroplasty of the patella small areas of grade 4 but mostly grade 3. There was good patellar tracking. The knee was thoroughly irrigated and drained. An intra-articular injection with 5 cc 0.5% Marcaine plain and 40 mg of Depo-Medrol was injected intra-articularly. The arthroscope was removed the portals were closed with 3-0 nylon arthroscopic stitches. Followed by Xeroform 4 x 4's ABDs web roll and an Ben wrap. The tourniquet was let down and the drapes were removed. All counts were correct. The patient was brought back to the PACU in stable condition.
--- NOTE | 2022-05-24 13:47 | DCINST_ITS ---
Discharge Instructions Diet Discharge Diet: No restrictions Activity Weight Bearing Status: Weight bearing as tolerated Dressing / Incision Call your doctor if you observe: Shortness of breath and Chest pain Additional Dressing/Incision Instructions:: Ice and elevate next 72 hours .keep dressing on clean and dry for 48 hours then may remove begin showering daily but do not submerge in tub or pool. After shower may apply Band-Aids . Encourage knee range of motion weightbearing as tolerated, use crutches until confident in knee then may discontinue. No strenuous activity. When not ambulating keep iced and elevated next 72 hours. Do not mix pain medication with recreational drugs or alcohol only take as prescribed can be addictive and abusive, call with any questions or concerns. Follow Up Care Please Follow Up With: Carlos Hernández DO When: 2 weeks Test Results: Test results from this visit will be discussed in further detail at your follow- up appointment, if applicable. Discharge Plan Admission Attending Provider: Carlos Hernández Primary Care Provider: Jose J Lezama Discharge Orders/Prescriptions Prescriptions: New oxycodone 5 mg tablet 5 - 10 mg PO Q4H PRN (Reason: pain) 5 Days Qty: 25 0RF cephalexin [cephalexin] 500 mg capsule 1,000 mg PO Q8 Qty: 4 0RF Rx Instructions: take 2 tabs at 9:00 pm and 2 tabs after 5 am when you wake up Continued gabapentin 300 mg capsule 300 mg PO BID aspirin [Adult Low Dose Aspirin] 81 mg tablet,delayed release (DR/EC) 81 mg PO DAILY cholecalciferol (vitamin D3) [Vitamin D3] 25 mcg (1,000 unit) capsule 25 mcg PO 2XW Rx Instructions: friday, , levothyroxine 50 mcg tablet 50 mcg PO DAILY atorvastatin 40 mg tablet 40 mg PO QHS furosemide 20 mg tablet 40 mg PO DAILY Rx Instructions: and may take 1 tab extra as needed duloxetine 30 mg capsule,delayed release(DR/EC) 30 mg PO DAILY Rx Instructions: 20mg metoprolol tartrate 50 mg tablet 50 mg PO BID amlodipine 10 mg tablet 10 mg PO DAILY isosorbide mononitrate 60 mg tablet extended release 24 hr 60 mg PO DAILY potassium chloride 20 mEq tablet extended release 20 meq PO BID hydralazine 50 mg tablet 100 mg PO TID diphenhydramine-acetaminophen [Tylenol PM Extra Strength] 25-500 mg tablet 1 tab PO QHS insulin glargine [Lantus Solostar U-100 Insulin] 100 unit/mL (3 mL) insulin pen 32 unit subcut QPM oxybutynin chloride 10 MG tablet extended release 24hr 10 mg PO DAILY insulin lispro [Humalog KwikPen Insulin] 100 unit/mL insulin pen 35 unit subcut TID PRN PRN (Reason: SLIDING SCALE) nitroglycerin 0.4 mg tablet, sublingual 0.4 mg SUBLINGUAL Q5M PRN (Reason: chest pain) Qty: 25 3RF Rx Instructions: do not exceed 3 doses per episode Eliquis 2.5 mg tablet 2.5 mg PO BID 30 Days Qty: 60 11RF Hold Instructions: Resume on 10/02/21. Referrals / Follow Up: Jose J Lezama DO [Primary Care Provider] - Disposition Discharge Orders: Discharge Patient (Routine); Ordered 05/24/22 Ordered By: Dr. Carlos Hernández
[2022-05-24 15:16] LABS: Bedside Glucose 108 mg/dL (74-106)
[2022-05-24] MEDS: oxyCODONE 5 MG Tablet PO (16:18)
== END 2022-05-24 17:13 | disposition home or self-care (01) ==
LOC: SDC 09:34 → AC 09:35
PROVIDERS: PCP Family Medicine; Referring Provider Orthopaedic Surgery; Visit Provider Orthopaedic Surgery
PROC: (CPT 29870; principal; 2022-05-24 11:10)
DX: M17.12 Unilateral primary osteoarthritis, left knee (principal); S72.433A Displaced fracture of medial condyle of unspecified femur, initial encounter for closed fracture; Z79.899 Other long term (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; S83.242A Other tear of medial meniscus, current injury, left knee, initial encounter; I25.10 Atherosclerotic heart disease of native coronary artery without angina pectoris; K21.9 Gastro-esophageal reflux disease without esophagitis; Z95.1 Presence of aortocoronary bypass graft; E03.9 Hypothyroidism, unspecified; G47.33 Obstructive sleep apnea (adult) (pediatric); Z95.5 Presence of coronary angioplasty implant and graft; Z96.651 Presence of right artificial knee joint
CPT/HCPCS: 29881; 29874; 01400; 82962; J7120; J2405

== ENCOUNTER 2022-05-28 15:47 | Emergency (ER) | payer MEDICARE, SELFPAY ==
[2021-06-18 13:40] VITALS: BMI 28.7
[2022-05-28 15:48] VITALS: BP 146/61; PULSE 65; RESP 18; TEMP 36; O2SAT 94
[2022-05-28 16:15] LABS: Bedside Glucose 222 mg/dL (74-106)
--- NOTE | 2022-05-28 17:34 | EKG12_ITS ---
Test Reason : Blood Pressure : / mmHG Vent. Rate : 065 BPM Atrial Rate : 065 BPM P-R Int : 176 ms QRS Dur : 084 ms QT Int : 428 ms P-R-T Axes : 030 008 022 degrees QTc Int : 445 ms Normal sinus rhythm Possible Inferior infarct , age undetermined Abnormal ECG Confirmed by LAURA BENITEZ, CARRIE ([id number]), editorial assistant KATHI TSE ([id number]) on 06/03/2022 9:59:25 AM Referred By: Confirmed By:CARRIE SANCHEZ MD
--- NOTE | 2022-05-28 17:37 | EDS_ITS ---
HPI History of Present Illness Chief Complaint: Hypoglycemia Informant: patient and spouse/S.O. Narrative Narrative: Patient is an 86-year-old female with history of coronary artery disease, chronic heart failure with preserved ejection fraction, long-term anticoa gulation on Xarelto, diabetes mellitus and CKD 3 presenting with labile blood sugars. Patient states she is had a hard time controlling her blood sugars for some time. This morning she took her regular insulin and ate a muffin. She then had an episode of hypoglycemia with altered mental status. She states it took couple hours her blood sugar to come back up. Has been thought maybe she was having a stroke however her symptoms resolved with improvement of her blood sugar. Patient states she ate a lot of candy bars. She notes that she took her regular long-acting insulin last night as well. She states that she has been breathing heavier over the past few days and been having some dizziness. She is blaming her Xarelto for this. She states has been compliant with it. She notes that last week she did have a laparoscopic meniscus surgery on her left knee with Dr. Hernández. Is not had any issues from a postop standpoint. Has no other complaints or concerns at this time. [facility] Medical History (Updated 05/28/22 @ 21:[address] Hortencia Prado, ) (HFpEF) heart failure with preserved ejection fraction Ambulates with cane Angina pectoris Arthritis Atherosclerotic heart disease of [place] coronary artery without angina pectoris Back pain Broken ribs CAD (coronary artery disease) CAD (coronary artery disease) Cardiology follow-up encounter Carotid stenosis, left Chronic renal failure, stage 3 (moderate) Congestive heart failure Coronary artery disease CPAP (continuous positive airway pressure) dependence Debility Diabetes Diabetes mellitus, type 2 Dietary restriction Difficulty swallowing Easy bruising Essential hypertension Fatigue Fibromyalgia GERD (gastroesophageal reflux disease) High cholesterol History of atrial fibrillation History of CHF (congestive heart failure) History of echocardiogram History of pain when walking History of renal disease History of stress test History of stroke Hypertension Hypothyroidism Insulin dependent diabetes mellitus Intertrigo Lower GI bleeding Lumbosacral radiculopathy Microalbuminuria Migraine headache New onset atrial fibrillation Non-smoker Obstructive sleep apnea Osteoarthritis of left knee Other alf (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 PAF (paroxysmal atrial fibrillation) Post-menopausal Presence of stent in coronary artery (~12/11/18) Pure hypercholesterolemia Renal cancer Shortness of breath on exertion Stroke/cerebrovascular accident Thyroid disease Wears hearing aid Home Medications aspirin 81 mg tablet,delayed release (Adult Low Dose Aspirin) 81 mg PO DAILY heart health 01/01/19 [History Last Taken 05/18/22] gabapentin 300 mg capsule 300 mg PO BID nerve pain 01/01/19 [History Last Taken 05/24/22] oxybutynin chloride 10 mg tablet,extended release 24 hr 10 mg PO DAILY BLADDER 03/23/19 [History Last Taken 05/24/22] nitroglycerin 0.4 mg sublingual tablet 0.4 mg sublingual Q5M PRN chest pain #25 tabs 09/28/19 [Rx Last Taken Unknown] atorvastatin 40 mg tablet 40 mg PO QHS cholesterol 05/10/20 [History Last Taken Unknown] levothyroxine 50 mcg tablet 50 mcg PO DAILY thyroid 05/10/20 [History Last Taken 05/24/22] cholecalciferol (vitamin D3) 25 mcg (1,000 unit) capsule (Vitamin D3) 25 mcg PO 2XW vitamin 06/20/21 [History Last Taken Unknown] amlodipine 10 mg tablet 10 mg PO DAILY 11/12/21 [History Last Taken 05/24/22] apixaban 2.5 mg tablet (Eliquis) 2.5 mg PO BID 30 days #60 tabs 11/28/21 [Rx Last Taken 05/18/22] isosorbide mononitrate 60 mg tablet,extended release 24 hr 60 mg PO DAILY 02/14/22 [History Last Taken 05/24/22] potassium chloride 20 mEq tablet,extended release 20 meq PO BID 02/14/22 [History Last Taken Unknown] duloxetine 30 mg capsule,delayed release 30 mg PO DAILY 02/28/22 [History Last Taken Unknown] metoprolol tartrate 50 mg tablet 50 mg PO BID blood pressure 02/28/22 [History Last Taken 05/24/22] diphenhydramine 25 mg-acetaminophen 500 mg tablet (Tylenol PM Extra Strength) 1 tab PO QHS 04/18/22 [History Last Taken Unknown] hydralazine 50 mg tablet 100 mg PO TID 04/18/22 [History Last Taken 05/24/22] insulin glargine 100 unit/mL (3 mL) subcutaneous pen (Lantus Solostar U-100 Insulin) 32 unit subcut QPM 04/18/22 [History Last Taken Unknown] insulin lispro 100 unit/mL subcutaneous pen (Humalog KwikPen (U-100) Insulin) 35 unit subcut TID PRN PRN SLIDING SCALE 05/23/22 [History Last Taken 05/24/22] cephalexin 500 mg capsule 1,000 mg PO Q8 #4 caps 05/24/22 [Rx Last Taken Unknown] oxycodone 5 mg tablet 5 - 10 mg PO Q4H PRN pain 5 days #25 tabs 05/24/22 [Rx Last Taken Unknown] furosemide 20 mg tablet 40 mg PO DAILY #270 tabs 05/28/22 [Rx Last Taken Unknown] Allergy/AdvReac Type Severity Reaction Status Date / Time latex Allergy Rash Verified 05/28/22 15:51 adhesive tape AdvReac Rash Verified 05/28/22 15:51 ticagrelor [From Brilinta] AdvReac Shortness Verified 05/28/22 15:51 of breath Family History Father Heart disease Mother Breast cancer Diabetes Heart disease Surgical History (Updated 05/23/22 @ 10:04 by Amanda Varghese) H/O hemorrhoidectomy History of appendectomy History of back surgery History of cardiac catheterization History of cholecystectomy History of coronary artery bypass graft x 3 (~04/08/16) History of hysterectomy History of knee replacement procedure of right knee History of right and left heart catheterization (LHC) (~08/10/19) History of right inguinal hernia repair Hx of CABG Hx of hand surgery Postlaminectomy syndrome of lumbar region Presence of coronary angioplasty implant and graft (~12/11/18) Social History Smoking Status: Never smoker alcohol intake: never substance use type: does not use caffeine: No ROS ROS ED Constitutional Constitutional ED: Denies chills or fever(s) Eyes Eyes: Denies change in vision ENT ENT ED: Denies rhinorrhea or sore throat Cardiovascular Cardiovascular: Denies chest pain Respiratory/Chest Respiratory/Chest: Denies cough or dyspnea Gastrointestinal Gastrointestinal: Denies abdominal pain, nausea or vomiting Genitourinary Genitourinary ED: Denies dysuria Musculoskeletal Musculoskeletal: Reports other Details: recent left knee scope Integumentary Reports other Details: sutures to left knee from recent surgery Neurologic Neurologic: Denies headache(s) or weakness Psychiatric Psychiatric: Denies anxiety EXAM Physical Exam Const Vital Signs: 05/28/22 15:48 05/28/22 17:48 05/28/22 18:50 Temperature 96.8 F L Temperature Source Temporal Pulse Rate 65 82 Respiratory Rate 18 16 Respiratory Effort Normal Blood Pressure 146/61 H 139/75 H Blood Pressure Mean 89 96 Pulse Ox 94 96 Oxygen Delivery Method Room Air 05/28/22 20:00 Temperature Temperature Source Pulse Rate 80 Respiratory Rate 18 Respiratory Effort Blood Pressure 130/70 H Blood Pressure Mean 90 Pulse Ox 95 Oxygen Delivery Method Positive well nourished and well developed General Appearance ED: well developed and NAD HEENT Reports moist mucous membranes Eyes PERRL and EOMs intact bilaterally Neck supple Chest Wall inspection of chest normal and palpation of chest normal Resp normal respiratory effort and clear to auscultation bilaterally Cardio regular rate, regular rhythm and no murmurs GI normal to inspection, nondistended, normoactive bowel sounds Extremity Extremity Narrative: Mild edema of the left knee consistent with recent arthroplasty. No pedal edema. No short arc range of motion pain of the knee. No significant effusion. Overlying [address] General Extremety ED: Negative for edema or tenderness General Extremity: Negative for edema Neuro oriented x3 and no sensory deficits noted Sensorium / Orientation: alert Motor Exam: strength 5/5 throughout; Negative for general weakness Psych mental status grossly normal Skin Skin Narrative: Surgical incision of the left knee with [address]. Mild localized erythema with no warmth around the suture sites. Suspect reactive from the recent surgery. No secondary signs of cellulitis or infection. No drainage appreciated. MDM MDM MDM Narrative Medical decision making narrative: Patient is evaluated for episode of hypoglycemia followed by labile blood sugars and hyperglycemia. She knows she had a hard time controlling her blood sugar over the past few weeks. She did have recent arthroscopy to her left knee last week. She denies any other systemic symptoms besides generally just not feeling well. She does feel little short of breath. She is not tachypneic. She is anticoagulated on Eliquis and have a low suspicion for pulmonary emboli especially as she is not tachycardic or hypoxic. She does have a mild leukocytosis of 14.6 which is nonspecific. There is no obvious source including urine, cellulitis or on her chest x-ray. She is mildly hemoconcentrated with a hemoglobin of 15.4. Creatinine is elevated at 1.79 but this appears to be her baseline. Her glucose today is 230 which is a normal anion gap. Patient counseled that the exact cause of her labile blood sugars is not clear. As she had some lows and admits that she has been eating less she is encouraged to decrease her long-acting slightly and if she needs that she can make up with that with her sliding scale. She is encouraged to follow-up with her [employer] operations consultant. Is given return precautions. Patient and verbalized agreement understand this plan. Lab Data Attestation: I reviewed the patient's lab results. Labs: Laboratory Results - last 24 hr 05/28/22 05/28/22 05/28/22 15:54 17:45 17:45 WBC 14.6 H RBC 5.01 Hgb 15.4 H Hct 49.7 H MCV 99.2 H MCH 30.7 MCHC 31.0 L RDW Std Deviation 50.4 H RDW Coeff of Laquita 13.9 Plt Count 219 MPV 11.5 Immature Gran % (Auto) 0.500 Neut % (Auto) 74.5 H Lymph % (Auto) 15.7 L Emery % (Auto) 6.9 Eos % (Auto) 1.7 Baso % (Auto) 0.7 Absolute Neuts (auto) 10.9 H Absolute Lymphs (auto) 2.29 Nucleated RBC % 0 Sodium 133 L Potassium 4.6 Chloride 105 Carbon Dioxide 22.0 Anion Gap 6 BUN 45 H Creatinine 1.79 H Est GFR (MDRD) Af Amer 35 L Est GFR (MDRD) Non-Af 29 L BUN/Creatinine Ratio 25.1 H Glucose 230 H Calcium 8.7 Urine Color Urine Clarity Urine pH Ur Specific [place] Urine Protein Urine Glucose (UA) Urine Ketones Urine Occult Blood Urine Nitrite Urine Bilirubin Urine Urobilinogen Ur Leukocyte Esterase Urine RBC Urine WBC Ur Squamous Epith Cells Urine Bacteria Urine Mucus POC Glucose 222 H 05/28/22 19:04 WBC RBC Hgb Hct MCV MCH MCHC RDW Std Deviation RDW Coeff of Laquita Plt Count MPV Immature Gran % (Auto) Neut % (Auto) Lymph % (Auto) Emery % (Auto) Eos % (Auto) Baso % (Auto) Absolute Neuts (auto) Absolute Lymphs (auto) Nucleated RBC % Sodium Potassium Chloride Carbon Dioxide Anion Gap BUN Creatinine Est GFR (MDRD) Af Amer Est GFR (MDRD) Non-Af BUN/Creatinine Ratio Glucose Calcium Urine Color Yellow Urine Clarity Clear Urine pH 6.0 Ur Specific [place] 1.015 Urine Protein 15 H Urine Glucose (UA) Normal Urine Ketones Negative Urine Occult Blood Negative Urine Nitrite Negative Urine Bilirubin Negative Urine Urobilinogen Normal Ur Leukocyte Esterase Negative Urine RBC 0 SEEN Urine WBC 0 SEEN Ur Squamous Epith Cells 0-5 SEEN Urine Bacteria 0 SEEN Urine Mucus 0 SEEN POC Glucose Radiography Diagnostic Testing: Clinical Impression(s) from Imaging Studies Chest X-Ray 05/28/22 17:50 IMPRESSION: No acute cardiopulmonary disease or interval change. Electronically Signed: Floyd Foster DO at 18:01 EDT Reading Location ID and State: [address] [place] [address] Tel [phone], Service support , Rhythm Strip Rhythm Strip: Sinus Rhythm Rate: 65 Ectopy: None EKG Initial EKG: Attestation: I personally reviewed and interpreted this EKG as follows: Interpretation: Sinus Rhythm Comments: Normal sinus rhythm at 65 bpm Normal axis Normal intervals Normal ST segments Compared to prior EKG on 09/21/2021 patient is no longer in atrial fibrillation with RVR Discharge Plan Triage Chief Complaint: Hypoglycemia ED Provider: Hortencia Prado Dx/Rx/DC Orders Clinical Impression: Dyspnea, Hypoglycemia associated with diabetes, Blood glucose elevated Instructions: ED Diabetes- Overview, ED Dyspnea Prescriptions: No Action gabapentin 300 mg capsule 300 mg PO BID aspirin [Adult Low Dose Aspirin] 81 mg tablet,delayed release (DR/EC) 81 mg PO DAILY cholecalciferol (vitamin D3) [Vitamin D3] 25 mcg (1,000 unit) capsule 25 mcg PO 2XW Rx Instructions: friday, , levothyroxine 50 mcg tablet 50 mcg PO DAILY atorvastatin 40 mg tablet 40 mg PO QHS duloxetine 30 mg capsule,delayed release(DR/EC) 30 mg PO DAILY Rx Instructions: 20mg metoprolol tartrate 50 mg tablet 50 mg PO BID amlodipine 10 mg tablet 10 mg PO DAILY isosorbide mononitrate 60 mg tablet extended release 24 hr 60 mg PO DAILY potassium chloride 20 mEq tablet extended release 20 meq PO BID hydralazine 50 mg tablet 100 mg PO TID diphenhydramine-acetaminophen [Tylenol PM Extra Strength] 25-500 mg tablet 1 tab PO QHS insulin glargine [Lantus Solostar U-100 Insulin] 100 unit/mL (3 mL) insulin pen 32 unit subcut QPM oxybutynin chloride 10 MG tablet extended release 24hr 10 mg PO DAILY insulin lispro [Humalog KwikPen Insulin] 100 unit/mL insulin pen 35 unit subcut TID PRN PRN (Reason: SLIDING SCALE) oxycodone 5 mg tablet 5 - 10 mg PO Q4H PRN (Reason: pain) 5 Days Qty: 25 0RF cephalexin [cephalexin] 500 mg capsule 1,000 mg PO Q8 Qty: 4 0RF Rx Instructions: take 2 tabs at 9:00 pm and 2 tabs after 5 am when you wake up nitroglycerin 0.4 mg tablet, sublingual 0.4 mg SUBLINGUAL Q5M PRN (Reason: chest pain) Qty: 25 3RF Rx Instructions: do not exceed 3 doses per episode Eliquis 2.5 mg tablet 2.5 mg PO BID 30 Days Qty: 60 11RF Hold Instructions: Resume on 10/02/21. furosemide 20 mg tablet 40 mg PO DAILY Qty: 270 3RF Rx Instructions: and may take 1 tab extra as needed Primary Care Provider: Jose J Lezama Referrals: Jose J Lezama DO [Primary Care Provider] - Activity Restrictions/Additional Instructions: Your work-up was nonspecific today. Here your blood sugar was elevated. Your white blood cell count was also elevated. If you develop any fevers or signs of infection please return to the emergency room. As you been having low blood sugars I recommend you decrease your Lantus from 35 units at night to 30 units at night. Adjust your sliding scale insulin as needed for your blood sugar throughout the day. Please follow-up closely with your [employer] operations consultant, Dr. Angel. Disposition Disposition: Home, Self Care Discharge Date/Time: 05/28/22 21:32
--- NOTE | 2022-05-28 17:50 | RAD_ITS ---
STUDY: X-RAY CHEST REASON FOR EXAM: Female, 86 years old. Shortness of breath. TECHNIQUE: PA and lateral views of the chest. COMPARISON: September 21, 2021. FINDINGS: The lungs are clear and expanded. There is no demonstrated pleural abnormality. Sternal cerclage wires are present from a prior sternotomy. The heart is normal in size. Normal mediastinum and eddie. Normal visualized pulmonary arteries. There is mild atherosclerotic calcification of the aortic arch with tortuosity. Question mild dextroscoliosis of the thoracic spine. Again seen is a dorsal column stimulator. There is degenerative osteoarthritis of the bilateral shoulders. There is no demonstrated abnormality of the visualized soft tissue structures of the upper abdomen. RAD/Chest PA and Lateral IMPRESSION: No acute cardiopulmonary disease or interval change. Electronically Signed: Floyd Foster DO at 18:01 EDT ,
[2022-05-28 18:03] LABS: Absolute Lymphocyte Count 2.29 X10^3/uL (0.83-4.51); Absolute Neutrophil Count 10.9 X10^3/uL (2.0-7.7); Basophil% 0.7 % (0-1); Eosinophil# 0.25 X10^3/uL; Eosinophils% 1.7 % (0-5); Hematocrit 49.7 % (37-47); Hemoglobin 15.4 g/dL (12.0-15.0); Lymphocyte # 2.29 X10^3/ul (0.83-4.51); Lymphocyte % 15.7 % (19-41); Mean Corpuscular Hgb 30.7 pg (27.0-32.0); Mean Corpuscular Volume 99.2 fL (81-99); Mean Platelet Vol. 11.5 fl (6.2-12.0); Monocyte# 1.01 X10^3/uL; Monocyte% 6.9 % (0-10); NRBC Flagged by Analyzer 0 % (0-5); Neutrophil # 10.87 X10^3/uL (2.7-7.7); Neutrophil % 74.5 % (47-70); Platelet Count 219 K/mm3 (150-450); RBC Distribution Width CV 13.9 % (11.6-14.6); RBC Distribution Width SD 50.4 fl (35.1-43.9); Red Blood Count 5.01 M/mm3 (4.2-5.4); White Blood Count 14.6 K/mm3 (4.4-11.0)
[2022-05-28 18:38] LABS: Anion Gap 6 (5-15); BUN 45 mg/dL (7-18); BUN/Creat Ratio 25.1 RATIO (10-20); Calcium,Total 8.7 mg/dL (8.5-10.1); Chloride 105 mmol/L (98-107); Creatinine, Serum 1.79 mg/dL (0.55-1.02); EST Glomerular Filtration Rate 29 mL/min (>60); Est Glom Filt Rate - Afr Amer 35 mL/min (>60); Glucose 230 mg/dL (74-106); Potassium 4.6 mmol/L (3.5-5.1); Sodium Level 133 mmol/L (136-145)
[2022-05-28 18:50] VITALS: BP 139/75; PULSE 82; RESP 16; O2SAT 96
[2022-05-28 18:55] VITALS: BMI 30.9
[2022-05-28 19:12] LABS: Bacteria 0 SEEN /hpf (None Seen); Mucous, Urine 0 SEEN /hpf (<or=2+); Red Blood Cells-Urine 0 SEEN /hpf (0-5); White Blood Cells 0 SEEN /hpf (0-5)
[2022-05-28 19:13] LABS: Color, Urine Yellow (Yellow); Glucose, Dipstick Normal (Normal); Ketone-Dipstick Negative (Negative); Leukocyte Esterase-Dipstick Negative /ul (Negative); Nitrite-Dipstick Negative (Negative); Occult Blood-Urine Negative /ul (Negative); Protein-Dipstick 15 mg/dl (Negative); Specific Gravity, Urine 1.015 (1.002-1.030); Urine Bilirubin Dipstick Negative (Negative); Urine Clarity Clear (Clear); Urine Urobilinogen Normal (Normal)
[2022-05-28 19:19] LABS: Squamous Epithelial Cells - UA 0-5 SEEN /hpf (5-10)
[2022-05-28 20:00] VITALS: BP 130/70; PULSE 80; RESP 18; O2SAT 95
== END 2022-05-28 21:32 | disposition home or self-care (01) ==
PROVIDERS: Emergency Provider Emergency Medicine; PCP Family Medicine; Visit Provider Emergency Medicine
DX: E11.649 Type 2 diabetes mellitus with hypoglycemia without coma (principal); I13.0 Hypertensive heart and chronic kidney disease with heart failure and stage 1 through stage 4 chronic kidney disease, or unspecified chronic kidney disease; I50.32 Chronic diastolic (congestive) heart failure; E11.22 Type 2 diabetes mellitus with diabetic chronic kidney disease; E11.65 Type 2 diabetes mellitus with hyperglycemia; Z79.4 Long term (current) use of insulin; N18.30 Chronic kidney disease, stage 3 unspecified; E78.00 Pure hypercholesterolemia, unspecified; R41.82 Altered mental status, unspecified; I25.10 Atherosclerotic heart disease of native coronary artery without angina pectoris; R06.00 Dyspnea, unspecified
CPT/HCPCS: 71046; 80048; 81001; 82962; 85025; 93005; 99283

== ENCOUNTER 2022-06-10 13:11 | Outpatient (RCR) | payer MEDICARE, SELFPAY ==
[2021-06-18 13:40] VITALS: BMI 28.7
[2022-06-10 13:34] LABS: International Normalized Ratio 1.5; Prothrombin Time (Protime)PT. 18.1 SECONDS (11.7-14.9)
[2022-06-10 13:38] LABS: Protein, Urine (Random) 6.7 mg/dL (<11.9); Protein:Creat Ratio 155 mg/g CRE (0-200)
[2022-06-10 13:52] LABS: Albumin, Serum 3.5 g/dL (3.2-5.0); BUN 23 mg/dL (7-18); BUN/Creat Ratio 14.4 RATIO (10-20); Chloride 109 mmol/L (98-107); EST Glomerular Filtration Rate 33 mL/min (>60); Est Glom Filt Rate - Afr Amer 39 mL/min (>60); Glucose 142 mg/dL (74-106); Phosphorus 3.8 mg/dL (2.5-4.9); Potassium 4.6 mmol/L (3.5-5.1); Sodium Level 139 mmol/L (136-145)
== END 2022-06-10 14:00 | disposition home or self-care (01) ==
LOC: LAB 13:11
PROVIDERS: PCP Family Medicine; Referring Provider Internal Medicine Nephrology; Visit Provider Internal Medicine Nephrology
DX: I48.0 Paroxysmal atrial fibrillation (principal); Z79.01 Long term (current) use of anticoagulants; N18.32 Chronic kidney disease, stage 3b; E11.22 Type 2 diabetes mellitus with diabetic chronic kidney disease
CPT/HCPCS: 36415; 80069; 82570; 83970; 84156; 85610

== ENCOUNTER → 2022-06-24 | Outpatient (CLI) | payer MEDICARE, SELFPAY ==
[2021-06-18 13:40] VITALS: BMI 28.7
[2022-06-24 13:47] LABS: International Normalized Ratio 2.3; Prothrombin Time (Protime)PT. 25.8 SECONDS (11.7-14.9)
[2022-06-24 13:59] LABS: Hemoglobin A1c 8.4 % (3.8-5.6)
== END | disposition home or self-care (01) ==
LOC: LAB 12:45
PROVIDERS: Nurse Practitioner Family; PCP Family Medicine; Referring Provider Nurse Practitioner Family; Visit Provider Nurse Practitioner Family
DX: Z79.01 Long term (current) use of anticoagulants (principal); E11.22 Type 2 diabetes mellitus with diabetic chronic kidney disease; I48.0 Paroxysmal atrial fibrillation; Z79.4 Long term (current) use of insulin; N18.32 Chronic kidney disease, stage 3b
CPT/HCPCS: 36415; 83036; 85610

== ENCOUNTER 2022-07-17 15:28 | Outpatient (RCR) | payer MEDICARE, SELFPAY ==
[2021-06-18 13:40] VITALS: BMI 28.7
[2022-07-17 16:18] LABS: International Normalized Ratio 1.6; Prothrombin Time (Protime)PT. 18.9 SECONDS (11.7-14.9)
[2022-07-17 16:35] LABS: Albumin, Serum 3.6 g/dL (3.2-5.0); BUN 31 mg/dL (7-18); BUN/Creat Ratio 19.5 RATIO (10-20); Calcium,Total 9.3 mg/dL (8.5-10.1); Chloride 107 mmol/L (98-107); Creatinine, Serum 1.59 mg/dL (0.55-1.02); EST Glomerular Filtration Rate 33 mL/min (>60); Est Glom Filt Rate - Afr Amer 40 mL/min (>60); Glucose 138 mg/dL (74-106); Phosphorus 4.3 mg/dL (2.5-4.9); Potassium 3.7 mmol/L (3.5-5.1); Sodium Level 139 mmol/L (136-145)
== END 2022-07-17 18:00 | disposition home or self-care (01) ==
LOC: LAB 15:28
PROVIDERS: PCP Family Medicine; Referring Provider Internal Medicine Nephrology; Visit Provider Internal Medicine Nephrology
DX: I48.0 Paroxysmal atrial fibrillation (principal); Z79.01 Long term (current) use of anticoagulants; E11.22 Type 2 diabetes mellitus with diabetic chronic kidney disease; N18.32 Chronic kidney disease, stage 3b
CPT/HCPCS: 36415; 80069; 85610

== ENCOUNTER 2022-07-18 10:42 | Inpatient (IN) | payer MEDICARE, SELFPAY ==
[2021-06-18 13:40] VITALS: BMI 28.7
[2022-07-18] VITALS (13 sets, daily range): BP systolic 136–183; BP diastolic 48–82; PULSE 63–74; RESP 14–24; TEMP 35.9–36.6; O2SAT 89–94; BMI 28.7; BMI 29.4
--- NOTE | 2022-07-18 10:57 | EKG12_ITS ---
Test Reason : HIGHBS Blood Pressure : / mmHG Vent. Rate : 065 BPM Atrial Rate : 065 BPM P-R Int : 218 ms QRS Dur : 078 ms QT Int : 438 ms P-R-T Axes : 022 019 022 degrees QTc Int : 455 ms Sinus rhythm with 1st degree A-V block Nonspecific ST and T wave abnormality Abnormal ECG Confirmed by LAURA BENITEZ, CARRIE ([id number]), content editor KATHI TSE ([id number]) on 07/19/2022 8:11:40 AM Referred By: Confirmed By:CARRIE SANCHEZ MD
--- NOTE | 2022-07-18 10:57 | CT_ITS ---
HISTORY: brain bleed. TECHNIQUE: Multiple axial images were obtained of the head without intravenous contrast. A radiation dose optimization technique was used for this scan. 238 images. COMPARISON: 07/02/2021. FINDINGS: HISTORY: brain bleed. TECHNIQUE: Multiple axial images were obtained of the head without intravenous contrast. A radiation dose optimization technique was used for this scan. 238 images. COMPARISON: 07/02/2021. FINDINGS: BRAIN PARENCHYMA: Multiple foci and zones of low attenuation in the bilateral cerebral white matter compatible with chronic small vessel ischemic gliosis. Small chronic right cerebellar infarct. No acute intra-axial hemorrhage identified. CSF SPACES: Generalized volume loss. No midline shift or other significant mass effect. No acute extra-axial hemorrhage seen. OTHER: Chronic left frontal bone sclerosis. Mild sphenoid sinus mucous retention cyst. Mild fluid in the left mastoid air cells. Bilateral lens resections. BRAIN PARENCHYMA: Multiple foci and zones of low attenuation in the bilateral cerebral white matter compatible with chronic small vessel ischemic gliosis. Small chronic right cerebellar infarct. No acute intra-axial hemorrhage identified. CSF SPACES: Generalized volume loss. No midline shift or other significant mass effect. No acute extra-axial hemorrhage seen. OTHER: Chronic left frontal bone sclerosis. Mild sphenoid sinus mucous retention cyst. Mild fluid in the left mastoid air cells. Bilateral lens resections. IMPRESSION: No acute intracranial process identified. Chronic involutional and white matter changes. CT/Brain/Head without Contrast IMPRESSION: No acute intracranial process identified. Chronic involutional and white matter changes. Electronically Signed: Asha Lew MD at 12:14 EDT ,
--- NOTE | 2022-07-18 11:00 | EDS_ITS ---
HPI History of Present Illness Chief Complaint: Hyperglycemia Detail of Chief Complaint: Dizziness, nausea, and elevated blood sugar Informant: patient and spouse/S.O. Narrative Narrative: Patient presents to the emergency department with dizziness and nausea and concern for hyperglycemia. Patient states that she was doing laundry when she began feeling dizzy and nauseated. She then checked her blood sugar and it just read high. Patient states she has been taking her insulin regularly. Her sugars yesterday read in 200s. She denies recent illness. She denies chest pain or shortness of breath. She denies significant headache but just does not feel well. Patient on warfarin for history of prior stroke and history of A- fib. [facility] Medical History (Updated 07/18/22 @ 14:[address] Afua Fernandez DO) (HFpEF) heart failure with preserved ejection fraction Acute on chronic heart failure with preserved ejection fraction (HFpEF) Ambulates with cane Angina pectoris Arthritis Atherosclerotic heart disease of ambler coronary artery without angina pectoris Back pain Broken ribs CAD (coronary artery disease) CAD (coronary artery disease) Cardiology follow-up encounter Carotid stenosis, left Chronic renal failure, stage 3 (moderate) Congestive heart failure Coronary artery disease CPAP (continuous positive airway pressure) dependence Debility Diabetes Diabetes mellitus, type 2 Dietary restriction Difficulty swallowing Easy bruising Essential hypertension Fatigue Fibromyalgia GERD (gastroesophageal reflux disease) High cholesterol History of atrial fibrillation History of CHF (congestive heart failure) History of echocardiogram History of pain when walking History of renal disease History of stress test History of stroke Hypertension Hypothyroidism Insulin dependent diabetes mellitus Intertrigo alf current use of anticoagulant Lower GI bleeding Lumbosacral radiculopathy Microalbuminuria Migraine headache New onset atrial fibrillation Non-smoker Obstructive sleep apnea Osteoarthritis of left knee Other skilled nursing (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 PAF (paroxysmal atrial fibrillation) Post-menopausal Presence of stent in coronary artery (~12/11/18) Pure hypercholesterolemia Renal cancer Shortness of breath on exertion Stroke/cerebrovascular accident Thyroid disease Wears hearing aid Home Medications aspirin 81 mg tablet,delayed release (Adult Low Dose Aspirin) 81 mg PO DAILY heart health 01/01/19 [History Last Taken 05/18/22] gabapentin 300 mg capsule 300 mg PO BID nerve pain 01/01/19 [History Last Taken 05/24/22] oxybutynin chloride 10 mg tablet,extended release 24 hr 10 mg PO DAILY BLADDER 03/23/19 [History Last Taken 05/24/22] nitroglycerin 0.4 mg sublingual tablet 0.4 mg sublingual Q5M PRN chest pain #25 tabs 09/28/19 [Rx Last Taken Unknown] atorvastatin 40 mg tablet 40 mg PO QHS cholesterol 05/10/20 [History Last Taken Unknown] levothyroxine 50 mcg tablet 50 mcg PO DAILY thyroid 05/10/20 [History Last Taken 05/24/22] cholecalciferol (vitamin D3) 25 mcg (1,000 unit) capsule (Vitamin D3) 25 mcg PO 2XW vitamin 06/20/21 [History Last Taken Unknown] isosorbide mononitrate 60 mg tablet,extended release 24 hr 60 mg PO DAILY 02/14/22 [History Last Taken 05/24/22] duloxetine 30 mg capsule,delayed release 30 mg PO DAILY 02/28/22 [History Last Taken Unknown] metoprolol tartrate 50 mg tablet 50 mg PO BID blood pressure 02/28/22 [History Last Taken 05/24/22] diphenhydramine 25 mg-acetaminophen 500 mg tablet (Tylenol PM Extra Strength) 1 tab PO QHS 04/18/22 [History Last Taken Unknown] hydralazine 50 mg tablet 100 mg PO TID 04/18/22 [History Last Taken 05/24/22] insulin lispro 100 unit/mL subcutaneous pen (Humalog KwikPen (U-100) Insulin) 35 unit subcut TID PRN PRN SLIDING SCALE 05/23/22 [History Last Taken 05/24/22] warfarin 4 mg tablet 4 mg PO DAILY #30 tabs 05/31/22 [Rx Last Taken Unknown] furosemide 20 mg tablet 40 mg PO DAILY #270 tabs 06/04/22 [Rx Last Taken Unknown] insulin glargine 100 unit/mL (3 mL) subcutaneous pen (Lantus Solostar U-100 Insulin) 35 unit subcut QPM 06/06/22 [History Last Taken Unknown] insulin NPH isoph U-100 human 100 unit/mL (3 mL) subcutaneous pen (Novolin N FlexPen) 7 unit (0.07 mL) subcut HS #3 mL 06/20/22 [Rx Last Taken Unknown] Allergy/AdvReac Type Severity Reaction Status Date / Time latex Allergy Rash Verified 07/18/22 10:44 adhesive tape AdvReac Rash Verified 07/18/22 10:44 ticagrelor [From Brilinta] AdvReac Shortness Verified 07/18/22 10:44 of breath Family History Father Heart disease Mother Breast cancer Diabetes Heart disease Surgical History H/O hemorrhoidectomy History of appendectomy History of arthroscopic knee surgery History of back surgery History of cardiac catheterization History of cholecystectomy History of coronary artery bypass graft x 3 (~04/08/16) History of hysterectomy History of knee replacement procedure of right knee History of right and left heart catheterization (LHC) (~08/10/19) History of right inguinal hernia repair Hx of CABG Hx of hand surgery Postlaminectomy syndrome of lumbar region Presence of coronary angioplasty implant and graft (~12/11/18) Social History Smoking Status: Never smoker alcohol intake: never substance use type: does not use caffeine: No ROS ROS ED ROS Narrative Dizziness Review of Systems ROS Unobtainable: other Constitutional Constitutional ED: Reports lethargy; Denies chills, fever(s), sweats or weight loss Eyes Eyes: Denies blurry vision, change in vision or diplopia ENT ENT ED: Denies rhinorrhea or sore throat Cardiovascular Cardiovascular: Denies chest pain, orthopnea or racing heartbeat Respiratory/Chest Respiratory/Chest: Denies cough, dyspnea, dyspnea on exertion, orthopnea or sputum Gastrointestinal Gastrointestinal: Reports nausea; Denies abdominal pain, diarrhea or vomiting Genitourinary Genitourinary ED: Denies dysuria, hematuria or urinary frequency Musculoskeletal Musculoskeletal: Denies arthralgias, back pain, myalgias or neck pain Integumentary Denies abscess, Abrasions or rash Neurologic Neurologic: Denies headache(s) or weakness Psychiatric Psychiatric: Denies anxiety, depression or suicidal thoughts Endocrine Endocrinology: Denies polydipsia, polyphagia or polyuria Hematologic/Lymphatic Hematologic/Lymphatic: Denies easy bleeding, easy bruising or lymphadenopathy Allergic/Immunologic Allergic/Immunologic ED: Denies mouth swelling, tongue swelling or urticaria EXAM Physical Exam Const Vital Signs: 07/18/22 10:43 07/18/22 12:31 07/18/22 12:42 Temperature 97.6 F L Temperature Source Temporal Pulse Rate 63 67 Pulse Rate [Lying] 65 Pulse Rate [Sitting (for 1 minute prior to obtaining)] 65 Pulse Rate [Standing (for 1 minute prior to obtaining)] 65 Respiratory Rate 14 16 Blood Pressure 136/64 H 158/74 H Blood Pressure [Lying] 155/66 H Blood Pressure [Sitting (for 1 minute prior to obtaining)] 180/82 H Blood Pressure [Standing (for 1 minute prior to obtaining)] 158/74 H Blood Pressure Mean 88 102 Blood Pressure Mean [Lying] 95 Blood Pressure Mean [Sitting (for 1 minute prior to obtaining)] 114 Blood Pressure Mean [Standing (for 1 minute prior to obtaining)] 102 Pulse Ox 94 91 Oxygen Delivery Method Room Air Room Air 07/18/22 14:06 Temperature Temperature Source Pulse Rate 69 Pulse Rate [Lying] Pulse Rate [Sitting (for 1 minute prior to obtaining)] Pulse Rate [Standing (for 1 minute prior to obtaining)] Respiratory Rate 20 H Blood Pressure 183/78 H Blood Pressure [Lying] Blood Pressure [Sitting (for 1 minute prior to obtaining)] Blood Pressure [Standing (for 1 minute prior to obtaining)] Blood Pressure Mean 113 Blood Pressure Mean [Lying] Blood Pressure Mean [Sitting (for 1 minute prior to obtaining)] Blood Pressure Mean [Standing (for 1 minute prior to obtaining)] Pulse Ox 91 Oxygen Delivery Method Room Air Positive well nourished and well developed General Appearance ED: well developed and NAD HEENT Reports TM's clear and moist mucous membranes normocephalic and atraumatic; Negative for trauma or tenderness Tympanic Membrane ED: Yes TM's clear Eyes PERRL and EOMs intact bilaterally General Eye ED: Negative for pale conjunctiva or scleral icterus Neck no lymphadenopathy, supple and no JVD General: Negative for tenderness Chest Wall inspection of chest normal and palpation of chest normal Chest: Negative for tenderness Resp normal respiratory effort and clear to auscultation bilaterally Effort and Inspection: Negative for respiratory distress or pain with movement Auscultation: Negative for rhonchi, wheezes or diminished lung sounds Cardio regular rate, regular rhythm, S1 normal heart sound, S2 normal heart sound and no murmurs Peripheral Pulses: pulses 2+ throughout GI normal to inspection, nondistended, normoactive bowel sounds, soft to palpation, non-tender, non-distended and no masses Back/Spine no CVA tenderness and no thoracic nor lumbar tenderness Extremity normal to inspection General Extremety ED: Negative for edema General Extremity: Negative for edema Neuro oriented x3, CN's II-XII intact bilaterally, no sensory deficits noted and gait normal Sensorium / Orientation: awake, alert, oriented to person, oriented to place and oriented to time Motor Exam: strength 5/5 throughout and strength abnormal Psych mental status grossly normal Skin no rashes or lesions noted and no wounds MDM MDM MDM Narrative Medical decision making narrative: Patient presents with sudden dizziness and nausea. Initially she denied history of vertigo but then her reminded her that she had had vertigo before and was given pills for it. She had a CT scan of the brain without contrast that was unremarkable. She was given Antivert 25 mg p.o. as well as 4 mg of Zofran. She did feel improved but still feels a little unsteady. Patient noted to be at rest marginally hypoxic with O2 sat around 90% on room air. She was ambulated and she still was quite unsteady on her feet although she normally uses a walker and her O2 sat with ambulation went to 86%. Chest x-ray was obtained which on my interpretation does not show any acute disease process. CBC with [facility] showed a white count was normal at 10.2 with a hemoglobin of 14.2. Chemistries unremarkable troponin was normal. INR was 1.5. Glucose was 297. I did give patient 10 units of insulin subcu. Case will be discussed with hospitalist to evaluate patient for admission. Lab Data Attestation: I reviewed the patient's lab results. Labs: Laboratory Results - last 24 hr 07/18/22 07/18/22 07/18/22 10:55 12:09 12:09 WBC 10.2 RBC 4.65 Hgb 14.2 Hct 43.8 MCV 94.2 MCH 30.5 MCHC 32.4 RDW Std Deviation 48.0 H RDW Coeff of Laquita 14.0 Plt Count 239 MPV 11.5 Immature Gran % (Auto) 1.300 H Neut % (Auto) 64.1 Lymph % (Auto) 23.4 Moody % (Auto) 7.8 Eos % (Auto) 2.6 Baso % (Auto) 0.8 Absolute Neuts (auto) 6.5 Absolute Lymphs (auto) 2.38 Nucleated RBC % 0 PT Cancelled INR Cancelled Sodium Potassium Chloride Carbon Dioxide Anion Gap BUN Creatinine Estim Creat Clear Calc Est GFR (MDRD) Af Amer Est GFR (MDRD) Non-Af BUN/Creatinine Ratio Glucose Calcium Troponin I High Sens Urine Color Urine Clarity Urine pH Ur Specific [place] Urine Protein Urine Glucose (UA) Urine Ketones Urine Occult Blood Urine Nitrite Urine Bilirubin Urine Urobilinogen Ur Leukocyte Esterase Urine RBC Urine WBC Ur Squamous Epith Cells Urine Bacteria Urine Mucus POC Glucose 346 H 07/18/22 07/18/22 07/18/22 12:09 12:48 13:08 WBC RBC Hgb Hct MCV MCH MCHC RDW Std Deviation RDW Coeff of Laquita Plt Count MPV Immature Gran % (Auto) Neut % (Auto) Lymph % (Auto) Moody % (Auto) Eos % (Auto) Baso % (Auto) Absolute Neuts (auto) Absolute Lymphs (auto) Nucleated RBC % PT 18.2 H INR 1.5 Sodium 137 Potassium 3.8 Chloride 105 Carbon Dioxide 22.0 Anion Gap 10 BUN 27 H Creatinine 1.64 H Estim Creat Clear Calc 21.12 Est GFR (MDRD) Af Amer 38 L Est GFR (MDRD) Non-Af 32 L BUN/Creatinine Ratio 16.5 Glucose 297 H Calcium 9.4 Troponin I High Sens 13 Urine Color Urine Clarity Urine pH Ur Specific [place] Urine Protein Urine Glucose (UA) Urine Ketones Urine Occult Blood Urine Nitrite Urine Bilirubin Urine Urobilinogen Ur Leukocyte Esterase Urine RBC Urine WBC Ur Squamous Epith Cells Urine Bacteria Urine Mucus POC Glucose 242 H 07/18/22 13:27 WBC RBC Hgb Hct MCV MCH MCHC RDW Std Deviation RDW Coeff of Laquita Plt Count MPV Immature Gran % (Auto) Neut % (Auto) Lymph % (Auto) Moody % (Auto) Eos % (Auto) Baso % (Auto) Absolute Neuts (auto) Absolute Lymphs (auto) Nucleated RBC % PT INR Sodium Potassium Chloride Carbon Dioxide Anion Gap BUN Creatinine Estim Creat Clear Calc Est GFR (MDRD) Af Amer Est GFR (MDRD) Non-Af BUN/Creatinine Ratio Glucose Calcium Troponin I High Sens Urine Color Yellow Urine Clarity Sl. Cloudy Urine pH 6.0 Ur Specific [place] 1.015 Urine Protein 30 H Urine Glucose (UA) 100 H Urine Ketones Negative Urine Occult Blood Negative Urine Nitrite Negative Urine Bilirubin Negative Urine Urobilinogen Normal Ur Leukocyte Esterase Negative Urine RBC 0 SEEN Urine WBC 0 SEEN Ur Squamous Epith Cells 0-5 SEEN Urine Bacteria 0 SEEN Urine Mucus 0 SEEN POC Glucose Radiography Diagnostic Testing: Clinical Impression(s) from Imaging Studies Brain CT 07/18/22 10:57 IMPRESSION: No acute intracranial process identified. Chronic involutional and white matter changes. Electronically Signed: Asha Lew MD at 12:14 EDT Reading Location ID and State: [facility] / [place] Tel , Service support , Discharge Plan Triage Chief Complaint: Hyperglycemia ED Provider: Afua Fernandez Dx/Rx/DC Orders Clinical Impression: Acute hyperglycemia, Hypoxia, Chronic anticoagulation, Dizziness, Exertional dyspnea Prescriptions: No Action gabapentin 300 mg capsule 300 mg PO BID aspirin [Adult Low Dose Aspirin] 81 mg tablet,delayed release (DR/EC) 81 mg PO DAILY cholecalciferol (vitamin D3) [Vitamin D3] 25 mcg (1,000 unit) capsule 25 mcg PO 2XW Rx Instructions: friday, , levothyroxine 50 mcg tablet 50 mcg PO DAILY atorvastatin 40 mg tablet 40 mg PO QHS duloxetine 30 mg capsule,delayed release(DR/EC) 30 mg PO DAILY Rx Instructions: 20mg metoprolol tartrate 50 mg tablet 50 mg PO BID isosorbide mononitrate 60 mg tablet extended release 24 hr 60 mg PO DAILY hydralazine 50 mg tablet 100 mg PO TID diphenhydramine-acetaminophen [Tylenol PM Extra Strength] 25-500 mg tablet 1 tab PO QHS insulin glargine [Lantus Solostar U-100 Insulin] 100 unit/mL (3 mL) insulin pen 35 unit subcut QPM Novolin N FlexPen 100 unit/mL (3 mL) insulin pen 7 unit subcut HS Qty: 3 5RF nifedipine [Procardia XL] 60 mg tablet extended release 24hr 60 mg PO DAILY Qty: 30 12RF oxybutynin chloride 10 MG tablet extended release 24hr 10 mg PO DAILY insulin lispro [Humalog KwikPen Insulin] 100 unit/mL insulin pen 35 unit subcut TID PRN PRN (Reason: SLIDING SCALE) oxycodone 5 mg tablet 5 - 10 mg PO Q4H PRN (Reason: pain) 5 Days Qty: 25 0RF nitroglycerin 0.4 mg tablet, sublingual 0.4 mg SUBLINGUAL Q5M PRN (Reason: chest pain) Qty: 25 3RF Rx Instructions: do not exceed 3 doses per episode warfarin 4 mg tablet 4 mg PO DAILY Qty: 30 11RF Protocol: Dose Management Condition: Friday Dose/Route: 4 mg Instruction: 1 x 4 mg tablet Condition: Friday Dose/Route: 6 mg Instruction: 1.5 x 4 mg tablets Condition: Friday Dose/Route: 4 mg Instruction: 1 x 4 mg tablet Condition: Friday Dose/Route: 6 mg Instruction: 1.5 x 4 mg tablets Condition: Dose/Route: 4 mg Instruction: 1 x 4 mg tablet Condition: Friday Dose/Route: 4 mg Instruction: 1 x 4 mg tablet Condition: Friday Dose/Route: 4 mg Instruction: 1 x 4 mg tablet Protocol Text: Adjustment Start Date: Friday07/17/22 INR Value: 1.6 INR Date: 07/17/22 Recheck Date: 07/24/22 furosemide 20 mg tablet 40 mg PO DAILY Qty: 270 3RF Rx Instructions: and may take 1 tab extra as needed (DME) Rollator w/extended arms See Rx Instructions .Route .MEDSUPPLY Qty: 1 0RF Rx Instructions: Use as directed for walking Primary Care Provider: Jose J Lezama Referrals: Jose J Lezama DO [Primary Care Provider] - Disposition Disposition: Acute Care Hospital [facility]
[2022-07-18 11:14] LABS: Bedside Glucose 346 mg/dL (74-106)
[2022-07-18] MEDS: 0.9% Normal Saline 1,000 ML 150 ML IV (12:13)
[2022-07-18] MEDS: Ondansetron 4 MG/2 ML Vial IV (12:14)
[2022-07-18 12:19] LABS: Absolute Lymphocyte Count 2.38 X10^3/uL (0.83-4.51); Absolute Neutrophil Count 6.5 X10^3/uL (2.0-7.7); Basophil# 0.08 X10^3/uL; Basophil% 0.8 % (0-1); Eosinophil# 0.26 X10^3/uL; Eosinophils% 2.6 % (0-5); Hematocrit 43.8 % (37-47); Hemoglobin 14.2 g/dL (12.0-15.0); Lymphocyte # 2.38 X10^3/ul (0.83-4.51); Lymphocyte % 23.4 % (19-41); Mean Corp Hgb Conc 32.4 g/dL (32-36); Mean Corpuscular Hgb 30.5 pg (27.0-32.0); Mean Corpuscular Volume 94.2 fL (81-99); Mean Platelet Vol. 11.5 fl (6.2-12.0); Monocyte# 0.79 X10^3/uL; Monocyte% 7.8 % (0-10); NRBC Flagged by Analyzer 0 % (0-5); Neutrophil # 6.53 X10^3/uL (2.7-7.7); Neutrophil % 64.1 % (47-70); Platelet Count 239 K/mm3 (150-450); Red Blood Count 4.65 M/mm3 (4.2-5.4); White Blood Count 10.2 K/mm3 (4.4-11.0)
[2022-07-18 12:36] LABS: Anion Gap 10 (5-15); BUN 27 mg/dL (7-18); BUN/Creat Ratio 16.5 RATIO (10-20); Calcium,Total 9.4 mg/dL (8.5-10.1); Chloride 105 mmol/L (98-107); Creatinine, Serum 1.64 mg/dL (0.55-1.02); EST Glomerular Filtration Rate 32 mL/min (>60); Est Glom Filt Rate - Afr Amer 38 mL/min (>60); Estimated Creatinine Clearance 21.12 ml/min; Glucose 297 mg/dL (74-106); Potassium 3.8 mmol/L (3.5-5.1); Sodium Level 137 mmol/L (136-145); Troponin-I HS 13 pg/mL (3.0-54.0)
[2022-07-18 13:05] LABS: International Normalized Ratio 1.5; Prothrombin Time (Protime)PT. 18.2 SECONDS (11.7-14.9)
[2022-07-18] MEDS: Meclizine HCl 25 MG Tablet PO (13:12)
[2022-07-18] MEDS: Insulin Lispro 100 UNIT/ML INSULN.PEN 10 UNIT SC (13:13)
[2022-07-18 13:27] LABS: Bedside Glucose 242 mg/dL (74-106)
[2022-07-18 13:38] LABS: Bacteria 0 SEEN /hpf (None Seen); Mucous, Urine 0 SEEN /hpf (<or=2+); Red Blood Cells-Urine 0 SEEN /hpf (0-5); White Blood Cells 0 SEEN /hpf (0-5)
[2022-07-18 13:48] LABS: Color, Urine Yellow (Yellow); Glucose, Dipstick 100 mg/dl (Normal); Ketone-Dipstick Negative (Negative); Leukocyte Esterase-Dipstick Negative /ul (Negative); Nitrite-Dipstick Negative (Negative); Occult Blood-Urine Negative /ul (Negative); Protein-Dipstick 30 mg/dl (Negative); Specific Gravity, Urine 1.015 (1.002-1.030); Urine Bilirubin Dipstick Negative (Negative); Urine Clarity Sl. Cloudy (Clear); Urine Urobilinogen Normal (Normal)
[2022-07-18 14:03] LABS: Squamous Epithelial Cells - UA 0-5 SEEN /hpf (5-10)
--- NOTE | 2022-07-18 14:10 | RAD_ITS ---
EXAM: XR CHEST, 1 VIEW CLINICAL INDICATION: hypocia TECHNIQUE: Frontal view of the chest. COMPARISON: 05.28.22 FINDINGS: LUNGS AND PLEURAL SPACES: Unremarkable. No consolidation or edema. No pneumothorax. No effusion. HEART: Unremarkable. Cardiac silhouette not enlarged. MEDIASTINUM: Central airways and mediastinal contour are unremarkable. BONES/JOINTS: Multiple median sternotomy wires are noted consistent for cardiac surgery. SOFT TISSUES: Unremarkable. TUBES, LINES AND DEVICES: Metallic leads in the spinal canal may suggest spinal stimulator leads. UPPER ABDOMEN: There is an elevated right hemidiaphragm. OTHER FINDINGS: Stable nodularity in the right lateral chest. RAD/Chest 1 View (Portable) IMPRESSION: No acute findings in the chest. Electronically Signed: Jl Kimble MD at 14:29 EDT ,
--- NOTE | 2022-07-18 14:46 | PCM.HP.STD ---
[facility] - General General Date of Admission: 07/18/22 Date of Service: 07/18/22 Chief Complaint: Dizziness lightheadedness and vertigo today. Progressive shortness of breath for more than 6 months but less than 1 year. HPI Narrative GLORIA PAUL, is a 86 F came to ED mainly for dizziness lightheadedness nausea and vertigo that started today about 10 AM. Patient stated when she feels dizzy, usually she has hypoglycemia. Her glucose was read high and yesterday was in 200s. Patient stated usually she does not have vertigo. She also had history of probably 3 mini strokes, she does not remember well because it was long time ago last 1 more than 10 years ago. She does not have any residual deficit. She also complained of progressively worsening of shortness of breath which she has for more than 6 months. Usually it is dyspnea on exertion during usual house course or walking but not at rest. She denies any chest pain pressure or tightness. She denies history of COPD/emphysema or wheezing. No fever. No acute cough, sore throat or URI or pneumonia like symptoms. Patient has history of chronic HFpEF and atrial fibrillation and she follows Dr. Adame, last cardiology visit May 2022. She has history of three-vessel CABG in March 2016. [facility] Medical History (HFpEF) heart failure with preserved ejection fraction Acute on chronic heart failure with preserved ejection fraction (HFpEF) Ambulates with cane Angina pectoris Arthritis Atherosclerotic heart disease of [place] coronary artery without angina pectoris Back pain Broken ribs CAD (coronary artery disease) CAD (coronary artery disease) Cardiology follow-up encounter Carotid stenosis, left Chronic renal failure, stage 3 (moderate) Congestive heart failure Coronary artery disease CPAP (continuous positive airway pressure) dependence Debility Diabetes Diabetes mellitus, type 2 Dietary restriction Difficulty swallowing Easy bruising Essential hypertension Fatigue Fibromyalgia GERD (gastroesophageal reflux disease) High cholesterol History of atrial fibrillation History of CHF (congestive heart failure) History of echocardiogram History of pain when walking History of renal disease History of stress test History of stroke Hypertension Hypothyroidism Insulin dependent diabetes mellitus Intertrigo residential current use of anticoagulant Lower GI bleeding Lumbosacral radiculopathy Microalbuminuria Migraine headache New onset atrial fibrillation Non-smoker Obstructive sleep apnea Osteoarthritis of left knee Other mcc (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 PAF (paroxysmal atrial fibrillation) Post-menopausal Presence of stent in coronary artery (~12/11/18) Pure hypercholesterolemia Renal cancer Shortness of breath on exertion Stroke/cerebrovascular accident Thyroid disease Wears hearing aid Home Medications aspirin 81 mg tablet,delayed release (Adult Low Dose Aspirin) 81 mg PO DAILY heart health 01/01/19 [History Last Taken 07/18/22] gabapentin 300 mg capsule 300 mg PO BID nerve pain 01/01/19 [History Last Taken 07/18/22] oxybutynin chloride 10 mg tablet,extended release 24 hr 10 mg PO DAILY BLADDER 03/23/19 [History Last Taken 07/18/22] nitroglycerin 0.4 mg sublingual tablet 0.4 mg sublingual Q5M PRN chest pain #25 tabs 09/28/19 [Rx Last Taken Unknown] atorvastatin 40 mg tablet 40 mg PO QHS cholesterol 05/10/20 [History Last Taken 07/17/22] levothyroxine 50 mcg tablet 50 mcg PO DAILY thyroid 05/10/20 [History Last Taken 07/18/22] cholecalciferol (vitamin D3) 25 mcg (1,000 unit) capsule (Vitamin D3) 25 mcg PO QODAY vitamin 06/20/21 [History Last Taken 07/17/22] isosorbide mononitrate 60 mg tablet,extended release 24 hr 60 mg PO DAILY 02/14/22 [History Last Taken 07/18/22] duloxetine 30 mg capsule,delayed release 30 mg PO DAILY 02/28/22 [History Last Taken 07/18/22] metoprolol tartrate 50 mg tablet 50 mg PO BID blood pressure 02/28/22 [History Last Taken 07/18/22] diphenhydramine 25 mg-acetaminophen 500 mg tablet (Tylenol PM Extra Strength) 1 tab PO QHS 04/18/22 [History Last Taken Unknown] hydralazine 50 mg tablet 100 mg PO TID 04/18/22 [History Last Taken 07/18/22] insulin lispro 100 unit/mL subcutaneous pen (Humalog KwikPen (U-100) Insulin) 27 unit subcut TID PRN PRN SLIDING SCALE 05/23/22 [History Last Taken 07/18/22] warfarin 4 mg tablet 4 mg PO DAILY #30 tabs 05/31/22 [Rx Last Taken 07/18/22] furosemide 20 mg tablet 40 mg PO DAILY #270 tabs 06/04/22 [Rx Last Taken 07/18/22] insulin glargine 100 unit/mL (3 mL) subcutaneous pen (Lantus Solostar U-100 Insulin) 27 unit subcut QPM 06/06/22 [History Last Taken 07/17/22] insulin NPH isoph U-100 human 100 unit/mL (3 mL) subcutaneous pen (Novolin N FlexPen) 7 unit (0.07 mL) subcut HS #3 mL 06/20/22 [Rx Last Taken 07/17/22] Allergy/AdvReac Type Severity Reaction Status Date / Time latex Allergy Rash Verified 07/18/22 10:44 adhesive tape AdvReac Rash Verified 07/18/22 10:44 ticagrelor [From Brilinta] AdvReac Shortness Verified 07/18/22 10:44 of breath Family History Father Heart disease Mother Breast cancer Diabetes Heart disease Surgical History H/O hemorrhoidectomy History of appendectomy History of arthroscopic knee surgery History of back surgery History of cardiac catheterization History of cholecystectomy History of coronary artery bypass graft x 3 (~04/08/16) History of hysterectomy History of knee replacement procedure of right knee History of right and left heart catheterization (LHC) (~08/10/19) History of right inguinal hernia repair Hx of CABG Hx of hand surgery Postlaminectomy syndrome of lumbar region Presence of coronary angioplasty implant and graft (~12/11/18) Social History Smoking Status: Never smoker alcohol intake: never substance use type: does not use caffeine: No ROS ROS Narrative Constitutional: Reports fatigue and weakness. No fever. HEENT: Reports systems reviewed and no addt'l complaints, except as documented Respiratory/Chest: No wheezing. No history of smoking. Denies any pulmonary disease rest as mentioned HPI CVS: No syncope. Rest as described in HPI Gastrointestinal: Denies coffee ground emesis, hematemesis or vomiting Genitourinary: Denies burning urination or new urinary tract symptoms Musculoskeletal: Denies acute joint pain or limited range of motion. No acute injury Neurologic: Vertigo. Probably 3 mini strokes/stroke in the past with noticeable deficit. Denies seizure-like symptoms. skin: No ulcer. No rash Endocrinology: Reports systems reviewed and no addt'l complaints, except as documented Hematologic/Lymphatic: Reports systems reviewed and no addt'l complaints, except as documented Rest 14 ROS are negative except as mentioned in HPI Vital Signs Vital Signs Vital Signs: 07/18/22 10:43 07/18/22 12:31 07/18/22 12:42 Temperature 97.6 F L Temperature Source Temporal Pulse Rate 63 67 Pulse Rate [Lying] 65 Pulse Rate [Sitting (for 1 minute prior to obtaining)] 65 Pulse Rate [Standing (for 1 minute prior to obtaining)] 65 Respiratory Rate 14 16 Blood Pressure 136/64 H 158/74 H Blood Pressure [Lying] 155/66 H Blood Pressure [Sitting (for 1 minute prior to obtaining)] 180/82 H Blood Pressure [Standing (for 1 minute prior to obtaining)] 158/74 H Blood Pressure Mean 88 102 Blood Pressure Mean [Lying] 95 Blood Pressure Mean [Sitting (for 1 minute prior to obtaining)] 114 Blood Pressure Mean [Standing (for 1 minute prior to obtaining)] 102 Pulse Ox 94 91 Oxygen Delivery Method Room Air Room Air Oxygen Flow Rate (L/min) 07/18/22 14:06 07/18/22 14:32 07/18/22 14:33 Temperature 96.7 F L Temperature Source Temporal Pulse Rate 69 63 Pulse Rate [Lying] Pulse Rate [Sitting (for 1 minute prior to obtaining)] Pulse Rate [Standing (for 1 minute prior to obtaining)] Respiratory Rate 20 H 21 H Blood Pressure 183/78 H 163/48 H Blood Pressure [Lying] Blood Pressure [Sitting (for 1 minute prior to obtaining)] Blood Pressure [Standing (for 1 minute prior to obtaining)] Blood Pressure Mean 113 86 Blood Pressure Mean [Lying] Blood Pressure Mean [Sitting (for 1 minute prior to obtaining)] Blood Pressure Mean [Standing (for 1 minute prior to obtaining)] Pulse Ox 91 93 89 Oxygen Delivery Method Room Air Nasal Cannula Room Air Oxygen Flow Rate (L/min) 1 07/18/22 14:35 Temperature Temperature Source Pulse Rate Pulse Rate [Lying] Pulse Rate [Sitting (for 1 minute prior to obtaining)] Pulse Rate [Standing (for 1 minute prior to obtaining)] Respiratory Rate Blood Pressure Blood Pressure [Lying] Blood Pressure [Sitting (for 1 minute prior to obtaining)] Blood Pressure [Standing (for 1 minute prior to obtaining)] Blood Pressure Mean Blood Pressure Mean [Lying] Blood Pressure Mean [Sitting (for 1 minute prior to obtaining)] Blood Pressure Mean [Standing (for 1 minute prior to obtaining)] Pulse Ox 93 Oxygen Delivery Method Nasal Cannula Oxygen Flow Rate (L/min) 1 Weight Weight: 162 lb Body Mass Index (BMI) 28.7 Physical Exam Narrative General: Alert, Oriented x3, Cooperative HEENT: Atraumatic, PERRLA, EOMI, Normocephalic Oral: Oral mucosa moist. No Gingival or Mucosal Lesions/ Ulcerations Neck: Supple, No JVD, Negative Carotid Bruits Lungs: Air entry diminished in bilateral lung bases. Bilateral fine crepitations on inspiration Cardiovascular: Regular rate, Regular Rhythm, Normal S1, Normal S2, No murmurs Abdomen: Bowel Sounds Present, Soft, Non Tender, Non-Distended : No renal angle tenderness. No suprapubic tenderness. Extremities: No edema, Capillary Refill Less than 3 Seconds Skin: No rashes, No breakdown Musculoskeletal: Status post right TKR and medial meniscus surgery. RLE slightly weaker than LLE probably from knee steroid surgery, chronic. No acute tenderness to Palpation of Joints or Extremities Neurological: Cranial nerves II-XII grossly intact, DTR 2+/4 and Symmetrical, Neuro grossly intact. Denies a stroke scale 0. Psych/Mental Status: Normal Affect, Appropriate. Results Lab / Micro Data Result Diagrams: 07/18/22 12:09 07/18/22 12:09 Labs: Laboratory Results - last 24 hr 07/18/22 10:55: POC Glucose 346 H 07/18/22 12:09: WBC 10.2, RBC 4.65, Hgb 14.2, Hct 43.8, MCV 94.2, MCH 30.5, MCHC 32.4, RDW Std Deviation 48.0 H, RDW Coeff of [place]qu[place] 14.0, Plt Count 239, MPV 11.5, Immature Gran % (Auto) 1.300 H, Neut % (Auto) 64.1, Lymph % (Auto) 23.4, Powell % (Auto) 7.8, Eos % (Auto) 2.6, Baso % (Auto) 0.8, Absolute Neuts (auto) 6.5, Absolute Lymphs (auto) 2.38, Nucleated RBC % 0 07/18/22 12:09: PT Cancelled, INR Cancelled 07/18/22 12:09: Sodium 137, Potassium 3.8, Chloride 105, Carbon Dioxide 22.0, Anion Gap 10, BUN 27 H, Creatinine 1.64 H, Estim Creat Clear Calc 21.12, Est GFR (MDRD) Af Amer 38 L, Est GFR (MDRD) Non-Af 32 L, BUN/Creatinine Ratio 16.5, Glucose 297 H, Calcium 9.4, Troponin I High Sens 13 07/18/22 12:48: PT 18.2 H, INR 1.5 07/18/22 13:08: POC Glucose 242 H 07/18/22 13:27: Urine Color Yellow, Urine Clarity Sl. Cloudy, Urine pH 6.0, Ur Specific [place] 1.015, Urine Protein 30 H, Urine Glucose (UA) 100 H, Urine Ketones Negative, Urine Occult Blood Negative, Urine Nitrite Negative, Urine Bilirubin Negative, Urine Urobilinogen Normal, Ur Leukocyte Esterase Negative, Urine RBC 0 SEEN, Urine WBC 0 SEEN, Ur Squamous Epith Cells 0-5 SEEN, Urine Bacteria 0 SEEN, Urine Mucus 0 SEEN Radiology Impression Brain CT 07/18/22 10:57 IMPRESSION: No acute intracranial process identified. Chronic involutional and white matter changes. Electronically Signed: Asha Lew MD at 12:14 EDT , Chest X-Ray 07/18/22 14:10 IMPRESSION: No acute findings in the chest. Electronically Signed: Jl Kimble MD at 14:29 EDT , Assessment & Plan Assessment/Plan (1) Vertigo: (2) Pulmonary HTN: PLAN: Plan This 86-year-old female is being admitted for work-up of acute onset of dizziness and vertigo and progressive worsening of shortness of breath. 1. Near syncope symptoms and vertigo, probably BPPV rule out posterior stroke: Patient is being admitted to PCU. She had orthostatic vitals in ED which was negative for hypotension or tachycardia. CT brain does not show acute intracranial abnormality. MRI brain ordered to rule out posterior stroke. If that is positive will need further work-up for stroke. PT and OT ordered. 2. Progressive worsening of shortness of breath and hypoxia probably related to pulmonary hypertension, exact etiology unclear: Chest x-ray individually reviewed and shows mild peripheral upper lobe cephalization but no acute interstitial or pulmonary edema. Patient had right and left heart cath in July 2019 which shows right heart pressure borderline to mildly elevated with respect to PASP. No intracardiac shunt was found. Normal LVEDP. Lasix 40 mg IV daily as patient does not have leg swelling or acute shortness of breath. 2D echo is ordered. Patient had last PFT in June 2019 reported as no evidence of large airway obstructive ventilatory defect but isolated mild restrictive ventilatory impairment with preserved DLCO. Patient does not use oxygen at home and requires 1-2 L here. 3. Coronary artery status post triple-vessel CABG, stent, chronic HFpEF, paroxysmal A-fib on warfarin: Patient on metoprolol and baby aspirin, nitrate, atorvastatin and hydralazine at home. INR is subtherapeutic 1.5. Warfarin dose increased to 5 mg daily. Monitor INR daily. Last echo in September 2021 reported EF 70% LA mildly enlarged mild MR RVSP 39 with stage II diastolic function consistent with chronic HFpEF. Troponin normal. 4. 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 Patient creatinine usually at 1.55-1.6 therefore on baseline. 5. Diabetes mellitus type 2 with hyperglycemia: Glucose in BMP 297. Patient on Lantus and Humalog insulin. Dose titrated up. Accu-Cheks insulin coverage Humalog sliding scale. A1c tomorrow a.m. ordered. 6. Other chronic comorbidities include hypertension, chronic degenerative arthritis on right knee status post TKR, decreased mobility on walker: PT and OT ordered Living will/advanced directive/end of life care: Patient does not have living will or advanced directive. Her daughter is next to kin. After discussion of benefits/risks procedures involved with full code, DNR CC arrest and DNR CC, the patient opted for full code. Patient does want artificial life support including intubation, tube feed, ventilator and/chest compression, central venous catheter, vasopressor and DC shock if needed Total time spent in [id number] encounter in discussion of advanced directive 17 minutes. Laboratory Results 07/18/22 10:55: POC Glucose 346 H 07/18/22 12:09: WBC 10.2, RBC 4.65, Hgb 14.2, Hct 43.8, MCV 94.2, MCH 30.5, MCHC 32.4, RDW Std Deviation 48.0 H, RDW Coeff of [place] 14.0, Plt Count 239, MPV 11.5, Immature Gran % (Auto) 1.300 H, Neut % (Auto) 64.1, Lymph % (Auto) 23.4, [place] % (Auto) 7.8, Eos % (Auto) 2.6, Baso % (Auto) 0.8, Absolute Neuts (auto) 6.5, Absolute Lymphs (auto) 2.38, Nucleated RBC % 0 07/18/22 12:09: PT Cancelled, INR Cancelled 07/18/22 12:09: Sodium 137, Potassium 3.8, Chloride 105, Carbon Dioxide 22.0, Anion Gap 10, BUN 27 H, Creatinine 1.64 H, Estim Creat Clear Calc 21.12, Est GFR (MDRD) Af Amer 38 L, Est GFR (MDRD) Non-Af 32 L, BUN/Creatinine Ratio 16.5, Glucose 297 H, Calcium 9.4, Troponin I High Sens 13 07/18/22 12:09: B-Natriuretic Peptide 66.9 07/18/22 12:48: PT 18.2 H, INR 1.5 07/18/22 13:08: POC Glucose 242 H 07/18/22 13:27: Urine Color Yellow, Urine Clarity Sl. Cloudy, Urine pH 6.0, Ur Specific [place] 1.015, Urine Protein 30 H, Urine Glucose (UA) 100 H, Urine Ketones Negative, Urine Occult Blood Negative, Urine Nitrite Negative, Urine Bilirubin Negative, Urine Urobilinogen Normal, Ur Leukocyte Esterase Negative, Urine RBC 0 SEEN, Urine WBC 0 SEEN, Ur Squamous Epith Cells 0-5 SEEN, Urine Bacteria 0 SEEN, Urine Mucus 0 SEEN Clinical Impression(s) from Imaging Studies Brain CT 07/18/22 10:57 IMPRESSION: No acute intracranial process identified. Chronic involutional and white matter changes. Chest X-Ray 07/18/22 14:10 IMPRESSION: No acute findings in the chest. Charges/Coding Visit Charges Inpatient E&M: 28837 Init Hosp L3 Procedures Hospitalists Procedures: 53413 Advncd Care Plan 30 Min
[2022-07-18 14:49] LABS: BNP,B-Type NATRIURETIC PEPTIDE 66.9 pg/mL (0-100)
[2022-07-18] MEDS: Gabapentin 300 MG Capsule PO (18:20)
[2022-07-18 19:20] LABS: Bedside Glucose 177 mg/dL (74-106)
[2022-07-18] MEDS: Atorvastatin Calcium 40 MG Tablet PO (21:29)
[2022-07-18] MEDS: Insulin Glargine-YFGN 100 UNIT/ML Pen 30 UNIT SC (21:29)
[2022-07-18] MEDS: Metoprolol Tartrate 50 MG Tablet PO (21:29)
[2022-07-18] MEDS: Insulin Lispro 100 UNIT/ML INSULN.PEN SC (21:30)
[2022-07-18 21:51] LABS: Bedside Glucose 216 mg/dL (74-106)
[2022-07-19] VITALS (9 sets, daily range): BP systolic 144–159; BP diastolic 65–75; PULSE 57–93; RESP 17–18; TEMP 36.5–37.1; O2SAT 90–95
[2022-07-19] MEDS: Levothyroxine 50 MCG Tablet PO (05:20)
[2022-07-19 05:52] LABS: Absolute Lymphocyte Count 2.38 X10^3/uL (0.83-4.51); Absolute Neutrophil Count 5.5 X10^3/uL (2.0-7.7); Basophil# 0.07 X10^3/uL; Basophil% 0.8 % (0-1); Eosinophil# 0.43 X10^3/uL; Eosinophils% 4.6 % (0-5); Hematocrit 40.2 % (37-47); Lymphocyte # 2.38 X10^3/ul (0.83-4.51); Lymphocyte % 25.7 % (19-41); Mean Corp Hgb Conc 32.3 g/dL (32-36); Mean Corpuscular Hgb 30.8 pg (27.0-32.0); Mean Corpuscular Volume 95.3 fL (81-99); Mean Platelet Vol. 11.7 fl (6.2-12.0); Monocyte% 8.6 % (0-10); NRBC Flagged by Analyzer 0 % (0-5); Neutrophil # 5.53 X10^3/uL (2.7-7.7); Neutrophil % 59.9 % (47-70); Platelet Count 210 K/mm3 (150-450); RBC Distribution Width CV 13.9 % (11.6-14.6); RBC Distribution Width SD 48.7 fl (35.1-43.9); Red Blood Count 4.22 M/mm3 (4.2-5.4); White Blood Count 9.3 K/mm3 (4.4-11.0)
[2022-07-19 06:07] LABS: International Normalized Ratio 1.6; Prothrombin Time (Protime)PT. 19.5 SECONDS (11.7-14.9)
[2022-07-19 06:37] LABS: Anion Gap 7 (5-15); BUN 27 mg/dL (7-18); Calcium,Total 8.8 mg/dL (8.5-10.1); Chloride 109 mmol/L (98-107); Cholesterol 148 mg/dL (200); Creatinine, Serum 1.35 mg/dL (0.55-1.02); EST Glomerular Filtration Rate 40 mL/min (>60); Est Glom Filt Rate - Afr Amer 48 mL/min (>60); Estimated Creatinine Clearance 25.66 ml/min; Glucose 182 mg/dL (74-106); High Density Lipoprotein 48 mg/dL; Potassium 3.6 mmol/L (3.5-5.1); Sodium Level 140 mmol/L (136-145); Triglycerides 229 mg/dL; Very Low Density Lipoprotein 46 mg/dL (5-40)
[2022-07-19] MEDS: Insulin Lispro 100 UNIT/ML INSULN.PEN SC ×3 (08:37→21:48)
[2022-07-19] MEDS: Insulin Lispro 100 UNIT/ML INSULN.PEN 20 UNIT SC ×3 (08:37→16:55)
[2022-07-19] MEDS: 0.9% Saline Lock 10 ML Syringe IV (08:38)
[2022-07-19] MEDS: Gabapentin 300 MG Capsule PO ×2 (08:41→17:36)
[2022-07-19 08:51] LABS: Hemoglobin A1c 7.8 % (3.8-5.6)
[2022-07-19 08:58] LABS: Bedside Glucose 259 mg/dL (74-106)
--- NOTE | 2022-07-19 09:00 | MRI_ITS ---
HISTORY: stroke -- posterior stroke symptoms, vertigo/disequilibrium. TECHNIQUE: Multiplanar and multisequence MR images of the brain were obtained without contrast. 280 images. COMPARISON: CT prior day. FINDINGS: BRAIN PARENCHYMA: Small chronic right cerebellar infarct. Multiple foci and small zones of increased T2 FLAIR signal in the bilateral cerebral white matter. No abnormal focus of restricted diffusion. No acute intracranial hemorrhage identified. CSF SPACES: Chronic volume loss. No significant midline shift or other mass effect.No extra-axial fluid collection. VASCULAR SYSTEM: Major intracranial flow voids are maintained. PARANASAL SINUSES AND MASTOID AIR CELLS: Mild fluid in the left mastoid air cells. ORBITS: Bilateral lens resections. MRI/Brain without Contrast IMPRESSION: No evidence for acute infarct. Small chronic right cerebellar infarct. Moderate chronic involutional and white matter changes. Electronically Signed: Asha Lew MD at 14:33 EDT ,
[2022-07-19] MEDS: Tolterodine Tartrate 2 MG CAP.SA PO (09:13)
[2022-07-19] MEDS: DULoxetine Hcl 30 MG Capsule PO (09:13)
[2022-07-19] MEDS: Aspirin E.C. 81 MG Tablet PO (09:13)
--- NOTE | 2022-07-19 11:25 | CASEMGMT ---
RN?CM?SALES SERVICE ASSISTANT?CM?to room to meet with patient for initial transition planning/care coordination?assessment.?RN?CM?introduced self and role at [facility].? Pt voices understanding and consents to?assessment?at this time.? Pt resting in bed in no distress at this time.? @ bedside. Pt is A/O at this time and answers all questions appropriately.?? Care providers, pharmacy, and demographics verified/updated at this time. PCP: Dr Lezama Specialists: MIL/cardiology, Dr Angel-endocrin, Dr Andersen-nephrology, Dr Hernández-ortho, Dr Vergara-nicol mgnt Preferred Pharmacy: [facility] Insurance: [facility] Prescription Benefit:?Yes Living Will/HPOA:?Pt and state they are not sure what they have completed w/the title attorney. They wish to check with the title attorney about what documents have been completed. They were made aware, if pt has not completed HCPOA or LW and she wishes to do so, that pt can meet w/SW as an OP for completion of these, if desired. They were provided w/AD info. Questions answered. They voice appreciation. LNOK: , [place]. Dtr, Sherrie Living Arrangements: Lives w/her in [facility]/independent living. Pt is indep w/ADL's and does the cooking and laundry. gets the groceries and manages pt's medications. They hire a cleaning lady. Transportation:?Pt states drives self and states no transportation concerns at this time.? also drives. DME: States has the following DME:?[employer] system. Pt states she gets the supplies from [employer]. Pt voices concern d/t needing to remove the sensor early, if she will have difficulty with them sending refills sooner. She has 2 sensors remaining and states does have refills on them. RN ALBERTA advised her to call for refills and to f/u with PCP if she has any difficulty w/getting shipment sooner. She voices understanding. Pt states she also has a RTS, rollator, CPAP from [employer], and pulse ox. She states she has all diabetic meds. Pt does not have home O2. Pt states wants [employer] for O2, if she qualifies for it @ d/c. ?Pt states no need for further DME at this time.? HHC/SNF: No hx of SNF. Has had [facility] in the past. Pt denies need for HHC. Pt wishes to return home and states has no concerns with going home at time of discharge.?CM?to follow for home oxygen needs and any further discharge planning/needs.? Pt voices no further concerns/needs at this time.? Advised pt to ask for?CM?if any further questions/concerns/needs arise.? Voices understanding. PLAN:??Home. Follow for possible Home O2. Allison BSN?RN?CM
[2022-07-19 11:56] LABS: Bedside Glucose 235 mg/dL (74-106)
--- NOTE | 2022-07-19 13:17 | ECHOD_ITS ---
Reason For Study: SOB Procedure This was a 2D Doppler, Color Flow transthoracic echocardiogram. The study was technically difficult. Unable to utilize Definity due to Renal Cancer. Exam performed portable in patient room. Left Ventricle Normal LV size. Left ventricular systolic function is normal. The estimated ejection fraction is 65 %. Stage 1 diastolic dysfunction. No regional wall motion abnormalities noted. Right Ventricle Normal RV size. Normal systolic function. Atria Normal left atrium. Normal right atrium. Mitral Valve There is moderate mitral annular calcification. Tricuspid Valve Normal tricuspid valve. Mild tricuspid valve insufficiency. Pulmonary artery systolic pressure is 25 mmHg. Aortic Valve Trisinus/trileaflet aortic valve. Pulmonic Valve The pulmonic valve is not well visualized. Great Vessels Normal aortic root. The pulmonary artery is normal size. Normal inferior vena cava. Pericardium/Pleural No pericardial effusion. MMode/2D Measurements & Calculations LVIDd: 3.4 cm IVSd: 0.96 cm LA dimension: 4.2 cm LVIDs: 2.5 cm LVPWd: 1.1 cm FS: 25.1 % LAV(MOD-bp): 34.9 ml LA A4 area: 11.7 cm2 RA A4 area: 12.1 cm2 LAV(MOD-bp) Indexed: 19.5 ml/m2 LAV(MOD-sp2): 41.4 ml LAV(MOD-sp4): 24.9 ml Time Measurements MV dec time: 0.39 sec Doppler Measurements & Calculations MV E max sumeet: 59.3 cm/sec Lat Peak E' Sumeet: 10.2 cm/sec Med Peak E' Sumeet: 4.4 cm/sec MV A max sumeet: 109.2 cm/sec E/E' lat: 5.8 E/E' med: 13.4 MV E/A: 0.54 MV V2 max: 121.4 cm/sec MV P1/2t max sumeet: 75.5 cm/sec Ao V2 max: 116.0 cm/sec MV max P.9 mmHg MV P1/2t: 121.2 msec Ao max P.4 mmHg MV V2 mean: 58.9 cm/sec MV dec slope: 182.4 cm/sec2 Ao V2 mean: 83.8 cm/sec MV mean P.7 mmHg MVA(P1/2t): 1.8 cm2 Ao mean P.1 mmHg MV V2 VTI: 30.0 cm Ao V2 VTI: 26.9 cm AV (velocity ratio): 0.74 LV V1 max: 89.6 cm/sec PA V2 max: 109.7 cm/sec TR max sumeet: 234.9 cm/sec LV V1 max P.2 mmHg PA V2 mean: 71.4 cm/sec TR max P.1 mmHg LV V1 mean P.7 mmHg LV V1 mean: 60.1 cm/sec LV V1 VTI: 19.9 cm ECHO/Echo Complete Interpretation Summary Normal LV size. Left ventricular systolic function is normal. The estimated ejection fraction is 65 %. Stage 1 diastolic dysfunction. Ordering Physician: Roshan Horan Referring Physician: Jose J Lezama Performed By: Rickie Gramajo RCS
--- NOTE | 2022-07-19 15:47 | PN_ITS ---
Subjective Subjective Patient seen and examined. She was admitted with a complaint of dizziness and lightheadedness and also had vertigo. She was admitted for stroke rule out. He also complained of some shortness of breath. She she feels much better today. She denies any chest pain, palpitations, dizziness, nausea vomiting or any other symptoms. Review of systems otherwise negative. She has remained hemodynamically stable. Objective Data Objective Data Vital Signs: Vital Signs Temp Pulse Resp BP Pulse Ox O2 Del Method O2 Flow Rate 97.7 F L 67 17 146/65 H 91 Room Air 2 07/19/22 13:05 07/19/22 13:05 07/19/22 13:05 07/19/22 13:05 07/19/22 13:14 07/19/22 13:14 07/19/22 09:06 Oxygen Flow Rate (L/min) 2 Oxygen Delivery Method Room Air Weight: 166 lb 0.129 oz Body Mass Index (BMI) 29.4 Intake & Output: Intake and Output for Last 24 Hours 07/17/22 07/18/22 07/19/22 23:59 23:59 23:59 Intake Total 412.5 / 532.5 690 / 690 Balance 412.5 / 532.5 690 / 690 Lab / Micro Data Result Diagrams: 07/19/22 04:34 07/19/22 04:34 Labs: Laboratory Results - last 24 hr 07/18/22 18:57: POC Glucose 177 H 07/18/22 21:22: POC Glucose 216 H 07/19/22 04:34: Sodium 140, Potassium 3.6, Chloride 109 H, Carbon Dioxide 24.0, Anion Gap 7, BUN 27 H, Creatinine 1.35 H, Estim Creat Clear Calc 25.66, Est GFR (MDRD) Af Amer 48 L, Est GFR (MDRD) Non-Af 40 L, BUN/Creatinine Ratio 20.0, Glucose 182 H, Calcium 8.8, Triglycerides 229 H, Cholesterol 148, LDL Cholesterol 54, VLDL Cholesterol 46 H, HDL Cholesterol 48, TSH 6.40 H 07/19/22 04:34: Hemoglobin A1c 7.8 H 07/19/22 04:34: WBC 9.3, RBC 4.22, Hgb 13.0, Hct 40.2, MCV 95.3, MCH 30.8, MCHC 32.3, RDW Std Deviation 48.7 H, RDW Coeff of Laquita 13.9, Plt Count 210, MPV 11.7, Immature Gran % (Auto) 0.400, Neut % (Auto) 59.9, Lymph % (Auto) 25.7, [place] % (Auto) 8.6, Eos % (Auto) 4.6, Baso % (Auto) 0.8, Absolute Neuts (auto) 5.5, Absolute Lymphs (auto) 2.38, Nucleated RBC % 0 07/19/22 04:34: PT 19.5 H, INR 1.6 07/19/22 08:36: POC Glucose 259 H 07/19/22 11:34: POC Glucose 235 H Radiography Diagnostic Testing: Radiology Impression Brain MRI 07/19/22 09:00 IMPRESSION: No evidence for acute infarct. Small chronic right cerebellar infarct. Moderate chronic involutional and white matter changes. Electronically Signed: Asha Lew MD at 14:33 EDT Reading Location ID and State: [facility] / [place] Tel , Service support , Physical Exam Const alert, oriented x3 and no apparent distress General Appearance: cooperative HEENT normocephalic, head/scalp atraumatic and moist oral mucous membranes Eyes PERRL and EOMs intact bilaterally Neck no lymphadenopathy, supple and no JVD Lymph Lymphatic: no lymphadenopathy noted and no lymphedema noted Resp Resp Narrative: Minimally diminished breath sounds bibasally. No wheezes or crackles. Cardio regular rate, regular rhythm, S1 normal heart sound, S2 normal heart sound and no murmurs GI normal to inspection, nondistended, normoactive bowel sounds, soft to palpation, non-tender and non-distended Skin General Skin Exam: no breakdown Neuro CN's II-XII intact bilaterally, no focal motor deficits and no sensory deficits noted Motor Exam: strength 5/5 throughout Psych thought process normal and cooperative Appearance: appropriate Assessment & Plan Assessment/Plan (1) Vertigo: (2) Hypoxia: PLAN: Plan #near syncope * MRI negative for stroke. Orthostatics were also negative. * PT OT on board. Fall precautions. * #Hypoxia * She was admitted with complaints of shortness of breath. She is currently on IV Lasix. 2D echo ordered and pending. * There is concern about possible pulmonary hypertension that is contributing to her shortness of breath. Chest x-ray showed mild peripheral upper lobe cephalization but no evidence of fluid overload or pulmonary edema. * Titrate oxygen to maintain saturation above 90%. Breathing treatments of bronchodilators. #CAD s/p CABG: On aspirin and metoprolol as well as atorvastatin. #Heart failure preserved ejection fraction: Does not appear to be in exacerbation.-New EF of 70% on echo in September 2021. 2D echo ordered. On Lasix 40 mg daily. #CKD stage IV: Creatinine is at baseline. Will monitor. #Type 2 diabetes mellitus: On Lantus 30 units qhs. Insulin sliding scale. Accu-Cheks ACHS. A1C is 7.8. #Hypothyroidism: * TSH is 6.4. * On Synthroid 50 mcg daily. due to her advanced age, will maintain the dose of synthroid and not adjust based on the TSS. DVT prophylaxis: on coumadin. INR is 1.6. WIll continue coumadin and adjust dose to make it therapeutic. Charges/Coding Visit Charges Inpatient E&M: 74814 Subs Hosp L2
[2022-07-19 17:13] LABS: Bedside Glucose 106 mg/dL (74-106)
[2022-07-19] MEDS: hydrALAZINE 50 MG Tablet PO (17:36)
[2022-07-19] MEDS: Isosorbide Mononitrate 60 MG Tablet PO (17:36)
[2022-07-19] MEDS: Jantoven 2 MG Tablet PO (17:36)
[2022-07-19] MEDS: Insulin Glargine-YFGN 100 UNIT/ML Pen 30 UNIT SC (21:49)
[2022-07-19] MEDS: Metoprolol Tartrate 50 MG Tablet PO (21:51)
[2022-07-19] MEDS: Atorvastatin Calcium 40 MG Tablet PO (21:52)
[2022-07-19 22:13] LABS: Bedside Glucose 151 mg/dL (74-106)
[2022-07-20] VITALS (11 sets, daily range): BP systolic 153–167; BP diastolic 58–77; PULSE 64–79; RESP 16–18; TEMP 36.6–36.9; O2SAT 88–94
[2022-07-20] MEDS: Levothyroxine 50 MCG Tablet PO (05:31)
[2022-07-20 06:39] LABS: Absolute Lymphocyte Count 2.85 X10^3/uL (0.83-4.51); Absolute Neutrophil Count 6.8 X10^3/uL (2.0-7.7); Basophil# 0.07 X10^3/uL; Basophil% 0.6 % (0-1); Eosinophil# 0.43 X10^3/uL; Eosinophils% 3.8 % (0-5); Hematocrit 39.7 % (37-47); Hemoglobin 12.4 g/dL (12.0-15.0); Lymphocyte # 2.85 X10^3/ul (0.83-4.51); Lymphocyte % 25.2 % (19-41); Mean Corp Hgb Conc 31.2 g/dL (32-36); Mean Corpuscular Hgb 30.5 pg (27.0-32.0); Mean Corpuscular Volume 97.5 fL (81-99); Mean Platelet Vol. 11.9 fl (6.2-12.0); Monocyte# 1.15 X10^3/uL; Monocyte% 10.2 % (0-10); NRBC Flagged by Analyzer 0 % (0-5); Neutrophil # 6.78 X10^3/uL (2.7-7.7); Neutrophil % 59.9 % (47-70); Platelet Count 198 K/mm3 (150-450); RBC Distribution Width CV 13.7 % (11.6-14.6); RBC Distribution Width SD 49.8 fl (35.1-43.9); Red Blood Count 4.07 M/mm3 (4.2-5.4); White Blood Count 11.3 K/mm3 (4.4-11.0)
[2022-07-20 07:16] LABS: BUN 32 mg/dL (7-18); Creatinine, Serum 1.33 mg/dL (0.55-1.02); Estimated Creatinine Clearance 26.05 ml/min; Glucose 210 mg/dL (74-106)
[2022-07-20 07:17] LABS: Anion Gap 6 (5-15); BUN/Creat Ratio 24.1 RATIO (10-20); Calcium,Total 8.9 mg/dL (8.5-10.1); Chloride 108 mmol/L (98-107); EST Glomerular Filtration Rate 40 mL/min (>60); Est Glom Filt Rate - Afr Amer 49 mL/min (>60); International Normalized Ratio 1.6; Potassium 4.2 mmol/L (3.5-5.1); Prothrombin Time (Protime)PT. 18.9 SECONDS (11.7-14.9); Sodium Level 139 mmol/L (136-145)
--- NOTE | 2022-07-20 08:05 | CASEMGMT ---
Social Work PHQ-9 not completed, as per physicians note, MRI completed and stroke ruled out. AYSHA Gamble
[2022-07-20] MEDS: Insulin Lispro 100 UNIT/ML INSULN.PEN SC ×3 (08:26→21:09)
[2022-07-20] MEDS: Insulin Lispro 100 UNIT/ML INSULN.PEN 20 UNIT SC ×2 (08:27→11:22)
[2022-07-20] MEDS: Aspirin E.C. 81 MG Tablet PO (08:28)
[2022-07-20] MEDS: Tolterodine Tartrate 2 MG CAP.SA PO (08:29)
[2022-07-20] MEDS: Metoprolol Tartrate 50 MG Tablet PO ×2 (08:29→21:10)
[2022-07-20] MEDS: Isosorbide Mononitrate 60 MG Tablet PO (08:29)
[2022-07-20] MEDS: DULoxetine Hcl 30 MG Capsule PO (08:29)
[2022-07-20] MEDS: Cholecalciferol (VIT D3) 25 MCG TABLET (1,000 UNITS) PO (08:30)
[2022-07-20] MEDS: hydrALAZINE 50 MG Tablet PO ×3 (08:30→16:15)
[2022-07-20] MEDS: Gabapentin 300 MG Capsule PO ×2 (08:33→16:15)
[2022-07-20 08:40] LABS: Bedside Glucose 214 mg/dL (74-106)
--- NOTE | 2022-07-20 11:38 | ART_ITS ---
Reason For Study: LLE pain, diminished pulse Procedure A bilateral lower extremity continuous wave Doppler with analog waveform analysis,segmental pressures,and ankle brachial indexes without exercise. Left Segmental Pressures Left brachial= 130mmHg. Left calf = >254mmHg. Left posterior tibial artery = 113mmHg. Left dorsalis pedis artery = 101mmHg. Left digit = 66 mmHg. The left dorsalis pedis waveforms are biphasic. The left posterior tibial artery waveforms are biphasic. Right Segmental Pressures Right brachial= 131mmHg. Right posterior tibial artery = 221mmHg. Right dorsalis pedis artery = 156mmHg. Right digit = 104 mmHg. The right dorsalis pedis waveforms are triphasic. The right posterior tibial artery waveforms are triphasic. Indices The right ankle brachial index by the dorsalis pedis is 1.69. The right ankle brachial index by the posterior tibial artery is 1.19. The right digital-brachial index is 0.79. The left ankle brachial index by the dorsalis pedis is 0.77. The left ankle brachial index by the posterior tibial artery is 0.86. The left digital-brachial index is 0.50. VL/Lower Ext Art Exam w/o Exercis Interpretation Summary Right MUKESH 1.69, artificially elevated due to non-compressible vessels. TBI and Doppler/PVR waveforms of the right leg normal at rest. Left MUKESH 0.86, moderate arterial insufficiency. Doppler/PVR waveforms reveal di stal SFA/popliteal disease Ordering Physician: Lisset Cristobal Referring Physician: Jose J Lezama Performed By: Aneta Horner RVT
[2022-07-20 11:49] LABS: Bedside Glucose 230 mg/dL (74-106)
[2022-07-20] MEDS: Morphine 2 MG/ML Syringe 1 MG IV (15:15)
[2022-07-20] MEDS: 0.9% Saline Lock 10 ML Syringe IV (15:15)
[2022-07-20 16:29] LABS: Bedside Glucose 111 mg/dL (74-106)
--- NOTE | 2022-07-20 16:52 | PN_ITS ---
Subjective Subjective Patient seen and examined. She was complaining of pain in her left foot today. Per her nurse she was noted to have diminished pulses in the left foot as well. She denied any fever, chills, shortness of breath, nausea vomiting or any other symptoms. Review of systems otherwise negative. She has remained hemodyn amically stable. Objective Data Objective Data Vital Signs: Vital Signs Temp Pulse Resp BP Pulse Ox O2 Del Method O2 Flow Rate 97.9 F 71 18 162/67 H 94 Room Air 2 07/20/22 15:20 07/20/22 16:15 07/20/22 15:20 07/20/22 16:15 07/20/22 15:20 07/20/22 15:20 07/19/22 09:06 Oxygen Flow Rate (L/min) 2 Oxygen Delivery Method Room Air Weight: 166 lb 0.129 oz Body Mass Index (BMI) 29.4 Intake & Output: Intake and Output for Last 24 Hours 07/18/22 07/19/22 07/20/22 23:59 23:59 23:59 Intake Total 412.5 / 532.5 1190 / 1190 360 / 360 Balance 412.5 / 532.5 1190 / 1190 360 / 360 Lab / Micro Data Result Diagrams: 07/20/22 05:45 07/20/22 05:45 Labs: Laboratory Results - last 24 hr 07/19/22 16:53: POC Glucose 106 07/19/22 21:47: POC Glucose 151 H 07/20/22 05:45: WBC 11.3 H, RBC 4.07 L, Hgb 12.4, Hct 39.7, MCV 97.5, MCH 30.5, MCHC 31.2 L, RDW Std Deviation 49.8 H, RDW Coeff of Laquita 13.7, Plt Count 198, MPV 11.9, Immature Gran % (Auto) 0.300, Neut % (Auto) 59.9, Lymph % (Auto) 25.2, [place] % (Auto) 10.2 H, Eos % (Auto) 3.8, Baso % (Auto) 0.6, Absolute Neuts (auto) 6.8, Absolute Lymphs (auto) 2.85, Nucleated RBC % 0 07/20/22 05:45: PT 18.9 H, INR 1.6 07/20/22 05:45: Sodium 139, Potassium 4.2, Chloride 108 H, Carbon Dioxide 25.0, Anion Gap 6, BUN 32 H, Creatinine 1.33 H, Estim Creat Clear Calc 26.05, Est GFR (MDRD) Af Amer 49 L, Est GFR (MDRD) Non-Af 40 L, BUN/Creatinine Ratio 24.1 H, Glucose 210 H, Calcium 8.9 07/20/22 08:06: POC Glucose 214 H 07/20/22 11:20: POC Glucose 230 H 07/20/22 16:08: POC Glucose 111 H Radiography Diagnostic Testing: Radiology Impression Echocardiogram 07/19/22 13:17 Interpretation Summary Normal LV size. Left ventricular systolic function is normal. The estimated ejection fraction is 65 %. Stage 1 diastolic dysfunction. Ordering Physician: Roshan Horan Referring Physician: Jose J Lezama Performed By: Rickie Gramajo RCS Physical Exam Const alert, oriented x3 and no apparent distress General Appearance: cooperative HEENT normocephalic, head/scalp atraumatic and moist oral mucous membranes Eyes PERRL and EOMs intact bilaterally Neck no lymphadenopathy, supple and no JVD Lymph Lymphatic: no lymphadenopathy noted and no lymphedema noted Resp Resp Narrative: Minimally diminished breath sounds bibasally. No wheezes or crackles. Cardio regular rate, regular rhythm, S1 normal heart sound, S2 normal heart sound and no murmurs GI normal to inspection, nondistended, normoactive bowel sounds, soft to palpation, non-tender and non-distended Extremity normal capillary refill Extremity Narrative: diminished left dorsalis pedis pulse. mild tenderness with palpation of left toes. No differential warmth and left foot is not cool to touch. No calf pain. Lest posterior tibialis pulse is palpable Skin General Skin Exam: no breakdown Neuro CN's II-XII intact bilaterally, no focal motor deficits and no sensory deficits noted Motor Exam: strength 5/5 throughout Psych thought process normal and cooperative Appearance: appropriate Assessment & Plan Assessment/Plan (1) Vertigo: (2) Hypoxia: PLAN: Plan #near syncope * MRI negative for stroke. Orthostatics were also negative. * PT OT on board. Fall precautions. * resolved. * #Left foot pain * also has diminished pulses in left foot (dorsalis pedis pulse) * no differential warmth and left foot is not cold * arterial duplex ordered, but it couldnt be done today. * will monitor for now * on coumadin, though INR is subtherapeutic at 1.6 today. * #Hypoxia * She was admitted with complaints of shortness of breath. * GIve PO lasix 40mg daily * 2D echo showed EF of 65% with stage 1 diastolic dysfunction and no regional wall motion abnormalities noted. * breathing treatments with bronchodilators * titrate oxygen to maintain sats >90% * * #CAD s/p CABG: On aspirin and metoprolol as well as atorvastatin. #Heart failure preserved ejection fraction: * Does not appear to be in exacerbation. * New EF of 70% on echo in September 2021. 2D echo as above. * On Lasix 40 mg daily. #CKD stage IV: Creatinine is around baseline at 1.33 today. Will monitor. #Type 2 diabetes mellitus: On Lantus 30 units qhs. Insulin sliding scale. Accu-Cheks ACHS. A1C is 7.8. #PAroxysmal afib: * on coumadin. INR is 1.6 today. * I Wll give 8mg of coumadin today. * Patient states she used to be on Eliquis but was switched to Coumadin because of insurance issues. * I did check Xarelto today but is also not on formulary. * Patient will therefore need to continue Coumadin and dose to be adjusted until INR is therapeutic. * #Hypothyroidism: * TSH is 6.4. * On Synthroid 50 mcg daily. due to her advanced age, will maintain the dose of synthroid and not adjust based on the TSS. DVT prophylaxis: on coumadin. INR is 1.6. WIll continue coumadin and adjust dose to make it therapeutic. Charges/Coding Visit Charges Inpatient E&M: 41482 Subs Hosp L2
[2022-07-20] MEDS: traMADol 50 MG Tablet 25 MG PO (20:56)
[2022-07-20] MEDS: Insulin Glargine-YFGN 100 UNIT/ML Pen 30 UNIT SC (21:08)
[2022-07-20] MEDS: Atorvastatin Calcium 40 MG Tablet PO (21:10)
[2022-07-20 23:14] LABS: Bedside Glucose 237 mg/dL (74-106)
[2022-07-20] MEDS: Acetaminophen 325 MG Tablet 650 MG PO (23:44)
[2022-07-21] VITALS (10 sets, daily range): BP systolic 154–183; BP diastolic 63–72; PULSE 62–77; RESP 18; TEMP 36.5–36.9; O2SAT 88–94
[2022-07-21] MEDS: traMADol 50 MG Tablet 25 MG PO ×2 (05:02→18:00)
[2022-07-21] MEDS: Levothyroxine 50 MCG Tablet PO (05:03)
[2022-07-21 06:07] LABS: International Normalized Ratio 1.6; Prothrombin Time (Protime)PT. 18.8 SECONDS (11.7-14.9)
[2022-07-21 08:04] LABS: Bedside Glucose 257 mg/dL (74-106)
[2022-07-21] MEDS: Insulin Lispro 100 UNIT/ML INSULN.PEN 20 UNIT SC ×3 (08:36→17:53)
[2022-07-21] MEDS: Insulin Lispro 100 UNIT/ML INSULN.PEN SC ×3 (08:36→17:53)
[2022-07-21] MEDS: Gabapentin 300 MG Capsule PO ×2 (10:10→17:53)
[2022-07-21] MEDS: Aspirin E.C. 81 MG Tablet PO (10:10)
[2022-07-21] MEDS: Tolterodine Tartrate 2 MG CAP.SA PO (10:11)
[2022-07-21] MEDS: Metoprolol Tartrate 50 MG Tablet PO ×2 (10:11→21:06)
[2022-07-21] MEDS: hydrALAZINE 50 MG Tablet PO ×3 (10:11→17:52)
[2022-07-21] MEDS: Isosorbide Mononitrate 60 MG Tablet PO (10:12)
[2022-07-21] MEDS: DULoxetine Hcl 30 MG Capsule PO (10:12)
--- NOTE | 2022-07-21 10:34 | PN_ITS ---
Subjective Subjective Patient seen and examined. She still complains of left foot pain. She has no other complaints. REview of systems is otherwise negative. BP is elevated with systolic in the 180s today. INR is subtherapeutic still at 1.6 today. Objective Data Objective Data Vital Signs: Vital Signs Temp Pulse Resp BP Pulse Ox O2 Del Method O2 Flow Rate 97.7 F L 74 18 183/72 H 94 Room Air 2 07/21/22 09:30 07/21/22 10:11 07/21/22 09:30 07/21/22 10:11 07/21/22 09:30 07/21/22 09:30 07/20/22 21:06 Oxygen Flow Rate (L/min) 2 Oxygen Delivery Method Room Air Weight: 166 lb 0.129 oz Body Mass Index (BMI) 29.4 Intake & Output: Intake and Output for Last 24 Hours 07/19/22 07/20/22 07/21/22 23:59 23:59 23:59 Intake Total 1190 / 1190 600 / 600 Balance 1190 / 1190 600 / 600 Lab / Micro Data Result Diagrams: 07/20/22 05:45 07/20/22 05:45 Labs: Laboratory Results - last 24 hr 07/20/22 11:20: POC Glucose 230 H 07/20/22 16:08: POC Glucose 111 H 07/20/22 21:00: POC Glucose 237 H 07/21/22 04:57: PT 18.8 H, INR 1.6 07/21/22 07:44: POC Glucose 257 H Physical Exam Const alert, oriented x3 and no apparent distress General Appearance: cooperative HEENT normocephalic, head/scalp atraumatic, moist oral mucous membranes and oropharynx normal Eyes PERRL and EOMs intact bilaterally Neck no lymphadenopathy, supple and no JVD Lymph Lymphatic: no lymphadenopathy noted and no lymphedema noted Resp Resp Narrative: Minimally diminished breath sounds bibasally. No wheezes or crackles. Cardio regular rate, regular rhythm, S1 normal heart sound, S2 normal heart sound and no murmurs GI normal to inspection, nondistended, normoactive bowel sounds, soft to palpation, non-tender and non-distended Extremity normal capillary refill Extremity Narrative: left DP pulse present on doppler USG. moderate tenderness on palpation of dorsum of left foot. no swelling, redness or differential warmth Skin General Skin Exam: no breakdown Neuro CN's II-XII intact bilaterally, no focal motor deficits and no sensory deficits noted Motor Exam: strength 5/5 throughout Psych thought process normal and cooperative Appearance: appropriate Assessment & Plan Assessment/Plan (1) Vertigo: (2) Hypoxia: PLAN: Plan #near syncope * MRI negative for stroke. Orthostatics were also negative. * PT OT on board. Fall precautions. * resolved. * #Left foot pain * left DP pulse present and strong on doppler * no differential warmth or redness. * will get xray of the left foot. * * * #Hypoxia * She was admitted with complaints of shortness of breath. * GIve PO lasix 40mg daily * 2D echo showed EF of 65% with stage 1 diastolic dysfunction and no regional wall motion abnormalities noted. * breathing treatments with bronchodilators * titrate oxygen to maintain sats >90% * resolved. * #CAD s/p CABG: On aspirin and metoprolol as well as atorvastatin. #Heart failure preserved ejection fraction: * Does not appear to be in exacerbation. * New EF of 70% on echo in September 2021. 2D echo as above. * On Lasix 40 mg daily. #CKD stage IV: Creatinine is around baseline at 1.33 today. Will monitor. #Type 2 diabetes mellitus: On Lantus 30 units qhs. Insulin sliding scale. Accu-Cheks ACHS. A1C is 7.8. #PAroxysmal afib: * on coumadin. INR is 1.6 today. * will give 10mg of coumadin today * her insurance doesnt cover xarelto or eliquis. * * #Hypothyroidism: * TSH is 6.4. * On Synthroid 50 mcg daily. due to her advanced age, will maintain the dose of synthroid and not adjust based on the TSS. DVT prophylaxis: on coumadin. INR is still 1.6. WIll continue coumadin and adjust dose to make it therapeutic. Charges/Coding Visit Charges Inpatient E&M: 29911 Subs Hosp L2
--- NOTE | 2022-07-21 11:10 | RAD_ITS ---
STUDY: X-RAY - LEFT FOOT CLINICAL: Female, 86 years old. left foot pain TECHNIQUE: 3 view(s) of the foot. COMPARISON: None. FINDINGS: Normal talus, calcaneus, and tarsal bones. Small plantar calcaneal enthesophyte. Moderate midfoot arthrosis particularly at the tarsometatarsal joints. Thickening of the shaft of the second third metatarsal bones likely consistent with healed fractures. Normal metatarsophalangeal joint of the great toe. Normal tibial and fibular sesamoid bones. Normal interphalangeal joint of the great toe. Normal phalanges of the great toe. Normal second through fifth metatarsophalangeal joints. Normal interphalangeal joints and phalanges of the lesser toes. The soft tissue structures are unremarkable. RAD/Foot min 3 Views IMPRESSION: No acute fracture or dislocation. Moderate midfoot arthrosis. Electronically Signed: Gilberto Butcher MD at 14:24 EDT ,
[2022-07-21 12:21] LABS: Bedside Glucose 358 mg/dL (74-106)
[2022-07-21 17:18] LABS: Bedside Glucose 188 mg/dL (74-106)
[2022-07-21] MEDS: Acetaminophen 325 MG Tablet 650 MG PO (21:04)
[2022-07-21] MEDS: Insulin Glargine-YFGN 100 UNIT/ML Pen 30 UNIT SC (21:05)
[2022-07-21] MEDS: Atorvastatin Calcium 40 MG Tablet PO (21:06)
[2022-07-21 22:41] LABS: Bedside Glucose 102 mg/dL (74-106)
[2022-07-22] VITALS (15 sets, daily range): BP systolic 122–175; BP diastolic 62–72; PULSE 61–89; RESP 14–18; TEMP 36.6–37; O2SAT 91–96
[2022-07-22] MEDS: traMADol 50 MG Tablet 25 MG PO ×2 (02:24→10:02)
[2022-07-22] MEDS: hydrALAZINE 20 MG/ML Vial 5 MG IV (02:49)
[2022-07-22] MEDS: 0.9% Saline Lock 10 ML Syringe IV ×2 (02:51→13:00)
[2022-07-22] MEDS: Acetaminophen 325 MG Tablet 650 MG PO ×2 (05:56→12:29)
[2022-07-22] MEDS: Levothyroxine 50 MCG Tablet PO (05:57)
[2022-07-22 06:01] LABS: Prothrombin Time (Protime)PT. 22.9 SECONDS (11.7-14.9)
[2022-07-22] MEDS: Insulin Lispro 100 UNIT/ML INSULN.PEN SC ×2 (07:49→16:39)
[2022-07-22] MEDS: Insulin Lispro 100 UNIT/ML INSULN.PEN 20 UNIT SC ×2 (07:50→16:39)
[2022-07-22 08:10] LABS: Bedside Glucose 207 mg/dL (74-106)
[2022-07-22 08:36] LABS: Absolute Lymphocyte Count 2.57 X10^3/uL (0.83-4.51); Absolute Neutrophil Count 10.4 X10^3/uL (2.0-7.7); Basophil# 0.12 X10^3/uL; Basophil% 0.8 % (0-1); Hematocrit 40.3 % (37-47); Lymphocyte # 2.57 X10^3/ul (0.83-4.51); Mean Corp Hgb Conc 32.3 g/dL (32-36); Mean Corpuscular Hgb 30.6 pg (27.0-32.0); Mean Corpuscular Volume 94.8 fL (81-99); Mean Platelet Vol. 12.7 fl (6.2-12.0); Monocyte# 1.64 X10^3/uL; Monocyte% 10.9 % (0-10); NRBC Flagged by Analyzer 0 % (0-5); Neutrophil # 10.42 X10^3/uL (2.7-7.7); Neutrophil % 68.9 % (47-70); POSITIVE DIFFERENTIAL YES; Platelet Count 195 K/mm3 (150-450); RBC Distribution Width CV 13.6 % (11.6-14.6); RBC Distribution Width SD 47.8 fl (35.1-43.9); Red Blood Count 4.25 M/mm3 (4.2-5.4); White Blood Count 15.1 K/mm3 (4.4-11.0)
[2022-07-22 08:39] LABS: Differential Indicated SCAN CRITERIA MET
[2022-07-22 08:41] LABS: Anion Gap 10 (5-15); BUN 27 mg/dL (7-18); Calcium,Total 9.3 mg/dL (8.5-10.1); Chloride 105 mmol/L (98-107); Creatinine, Serum 1.23 mg/dL (0.55-1.02); EST Glomerular Filtration Rate 44 mL/min (>60); Est Glom Filt Rate - Afr Amer 53 mL/min (>60); Estimated Creatinine Clearance 28.16 ml/min; Glucose 199 mg/dL (74-106); Potassium 3.8 mmol/L (3.5-5.1); Sodium Level 136 mmol/L (136-145)
[2022-07-22] MEDS: hydrALAZINE 50 MG Tablet PO ×3 (09:51→16:45)
[2022-07-22 09:52] LABS: Differential Comment SCANNED
[2022-07-22] MEDS: DULoxetine Hcl 30 MG Capsule PO (09:52)
[2022-07-22] MEDS: Aspirin E.C. 81 MG Tablet PO (09:52)
[2022-07-22] MEDS: Gabapentin 300 MG Capsule PO ×2 (09:52→17:55)
[2022-07-22] MEDS: Tolterodine Tartrate 2 MG CAP.SA PO (09:52)
[2022-07-22] MEDS: Metoprolol Tartrate 50 MG Tablet PO (09:52)
[2022-07-22] MEDS: Cholecalciferol (VIT D3) 25 MCG TABLET (1,000 UNITS) PO (09:53)
[2022-07-22] MEDS: Isosorbide Mononitrate 60 MG Tablet PO (10:58)
[2022-07-22 11:16] LABS: Bedside Glucose 97 mg/dL (74-106)
[2022-07-22] MEDS: Morphine 2 MG/ML Syringe 1 MG IV (13:00)
--- NOTE | 2022-07-22 14:23 | NUR.TO.PHY ---
Pt medicated for Left leg pain with PRN Ultram @ 1000, later reports same pain now starting in Right leg. Medicated with PRN Tylenol and notified . 1x order received for IV morphine. L leg US completed. morphine given and pt voices some relief from pain but is still unable to move legs independently. Attempted ROM and was not able to move without help. Patient declining to get out of bed.
--- NOTE | 2022-07-22 16:18 | PN_ITS ---
Subjective Subjective Patient seen and examined. She still complains of pain of her left foot. Subsequently said it was not on her right foot to x-ray done yesterday showed evidence of arthrosis of the foot. Patient refused to get out of bed today and states she could not even ambulate. Plan was to discharge her home today but patient essentially says she could not go because she could not ambulate well. Physical therapy consulted to review patient. She has remained hemodynamically stable. Objective Data Objective Data Vital Signs: Vital Signs Temp Pulse Resp BP Pulse Ox O2 Del Method O2 Flow Rate 98.2 F 82 16 122/63 H 92 Room Air 2 07/22/22 09:45 07/22/22 12:00 07/22/22 09:45 07/22/22 12:00 07/22/22 14:00 07/22/22 14:00 07/22/22 02:37 Oxygen Flow Rate (L/min) 2 Oxygen Delivery Method Room Air Weight: 166 lb 0.129 oz Body Mass Index (BMI) 29.4 Intake & Output: Intake and Output for Last 24 Hours 07/20/22 07/21/22 07/22/22 23:59 23:59 23:59 Intake Total 600 / 600 480 / 480 Output Total 1250 / 1250 300 / 300 Balance 600 / 600 -770 / -770 -300 / -300 Lab / Micro Data Result Diagrams: 07/22/22 05:00 07/22/22 05:00 Labs: Laboratory Results - last 24 hr 07/21/22 16:58: POC Glucose 188 H 07/21/22 21:01: POC Glucose 102 07/22/22 05:00: PT 22.9 H, INR 2.0 07/22/22 05:00: WBC 15.1 H, RBC 4.25, Hgb 13.0, Hct 40.3, MCV 94.8, MCH 30.6, MCHC 32.3, RDW Std Deviation 47.8 H, RDW Coeff of Laquita 13.6, Plt Count 195, MPV 12.7 H, Immature Gran % (Auto) 0.400, Neut % (Auto) 68.9, Lymph % (Auto) 17.0 L, [place] % (Auto) 10.9 H, Eos % (Auto) 2.0, Baso % (Auto) 0.8, Absolute Neuts (auto) 10.4 H, Absolute Lymphs (auto) 2.57, Nucleated RBC % 0, Differential Comment SCANNED, Diff Path Review June07/22/22 05:00: Sodium 136, Potassium 3.8, Chloride 105, Carbon Dioxide 21.0, Anion Gap 10, BUN 27 H, Creatinine 1.23 H, Estim Creat Clear Calc 28.16, Est GFR (MDRD) Af Amer 53 L, Est GFR (MDRD) Non-Af 44 L, BUN/Creatinine Ratio 22.0 H, Glucose 199 H, Calcium 9.3 07/22/22 07:48: POC Glucose 207 H 07/22/22 10:56: POC Glucose 97 Physical Exam Const alert, oriented x3 and no apparent distress General Appearance: cooperative HEENT normocephalic, head/scalp atraumatic, moist oral mucous membranes and oropharynx normal Eyes PERRL and EOMs intact bilaterally Neck no lymphadenopathy, supple and no JVD Lymph Lymphatic: no lymphadenopathy noted and no lymphedema noted Resp Resp Narrative: Minimally diminished breath sounds bibasally. No wheezes or crackles. Cardio regular rate, regular rhythm, S1 normal heart sound, S2 normal heart sound and no murmurs GI normal to inspection, nondistended, normoactive bowel sounds, soft to palpation, non-tender and non-distended Extremity normal capillary refill Extremity Narrative: left DP pulse present on doppler USG. moderate tenderness on palpation of dorsum of left foot. no swelling, redness or differential warmth Skin General Skin Exam: no breakdown Neuro CN's II-XII intact bilaterally, no focal motor deficits and no sensory deficits noted Motor Exam: strength 5/5 throughout Psych thought process normal and cooperative Appearance: appropriate Assessment & Plan Assessment/Plan (1) Vertigo: (2) Hypoxia: PLAN: Plan #Near syncope * MRI negative for stroke. Orthostatics were also negative. * PT OT on board. Fall precautions. * resolved. * #Left foot pain with debility * left DP pulse present and strong on doppler * no differential warmth or redness. 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 She is not complaining of right foot pain. * Patient notes that she is unable to even ambulate. PT OT consulted to evaluate patient for possible placement. * * #Hypoxia * resolved * PO lasix 40mg daily * 2D echo showed EF of 65% with stage 1 diastolic dysfunction and no regional wall motion abnormalities noted. * breathing treatments with bronchodilators * titrate oxygen to maintain sats >90% * resolved. * #CAD s/p CABG: On aspirin and metoprolol as well as atorvastatin. #Heart failure preserved ejection fraction: * Does not appear to be in exacerbation. * New EF of 70% on echo in September 2021. 2D echo as above. * On Lasix 40 mg daily. #CKD stage IV: Creatinine is around baseline at 1.33 today. Will monitor. #Type 2 diabetes mellitus: On Lantus 30 units qhs. Insulin sliding scale. Accu-Cheks ACHS. A1C is 7.8. #PAroxysmal afib: * on coumadin. INR is 2 * will give 10mg of coumadin today * her insurance doesnt cover xarelto or eliquis. * * #Hypothyroidism: * TSH is 6.4. * On Synthroid 50 mcg daily. due to her advanced age, will maintain the dose of synthroid and not adjust based on the TSS. DVT prophylaxis: on coumadin. INR is therapeutic at 2 today Disposition: Will benefit from placement. PT.OT consulted to evaluate patient; await PT/OT recommendations. Charges/Coding Visit Charges Inpatient E&M: 30635 Subs Hosp L2
--- NOTE | 2022-07-22 16:18 | CASEMGMT ---
Sw presented to bedside. Introduced self to patient and , explained sw role during hospitalization. Sw asked if patient has advanced directives in place. Patient and state that they received documents and have not completed them yet. stated that he does not understand the difference between a medical POA and financial POA. Sw explained the different to patient and . Patient states that they plan to look at the documents again. Sw encouraged patient to bring completed documents in with her at some point once they are completed so they can get scanned into her medical record. Danisha Ordoñez, DETECTIVE AND INTELLIGENCE ANALYST, AUDIENCE DEVELOPMENT MANAGER
[2022-07-22 17:05] LABS: Bedside Glucose 268 mg/dL (74-106)
[2022-07-23] VITALS (14 sets, daily range): BP systolic 138–170; BP diastolic 61–70; PULSE 60–87; RESP 16–20; TEMP 35.9–36.8; O2SAT 91–95
[2022-07-23] MEDS: Acetaminophen 325 MG Tablet 650 MG PO ×2 (00:05→06:35)
[2022-07-23] MEDS: traMADol 50 MG Tablet 25 MG PO ×2 (00:06→12:00)
[2022-07-23] MEDS: 0.9% Saline Lock 10 ML Syringe IV ×2 (00:23→04:48)
--- NOTE | 2022-07-23 00:23 | NURSING ---
1999 when rounding patient said she was painful. When this RN returned a few mintues later, patient was sleeping. Not awakened.
[2022-07-23 00:42] LABS: Bedside Glucose 187 mg/dL (74-106)
[2022-07-23] MEDS: Levothyroxine 50 MCG Tablet PO (04:48)
[2022-07-23 05:40] LABS: International Normalized Ratio 2.5; Prothrombin Time (Protime)PT. 27.5 SECONDS (11.7-14.9)
[2022-07-23] MEDS: Aspirin E.C. 81 MG Tablet PO (08:25)
[2022-07-23] MEDS: Metoprolol Tartrate 50 MG Tablet PO ×3 (08:25→21:41)
[2022-07-23] MEDS: Gabapentin 300 MG Capsule PO ×2 (08:25→15:57)
[2022-07-23] MEDS: DULoxetine Hcl 30 MG Capsule PO (08:25)
[2022-07-23] MEDS: Tolterodine Tartrate 2 MG CAP.SA PO (08:25)
[2022-07-23] MEDS: Furosemide 40 MG Tablet PO (08:26)
[2022-07-23] MEDS: Isosorbide Mononitrate 60 MG Tablet PO (08:26)
[2022-07-23] MEDS: hydrALAZINE 50 MG Tablet PO ×3 (08:30→15:54)
[2022-07-23] MEDS: Insulin Lispro 100 UNIT/ML INSULN.PEN 20 UNIT SC ×3 (08:31→16:49)
[2022-07-23] MEDS: Insulin Lispro 100 UNIT/ML INSULN.PEN SC ×4 (08:32→16:50)
[2022-07-23 08:40] LABS: Bedside Glucose 232 mg/dL (74-106)
[2022-07-23 11:22] LABS: Bedside Glucose 216 mg/dL (74-106)
--- NOTE | 2022-07-23 11:50 | NURSING ---
Doctor was notified of WBC trending up over last three days.
--- NOTE | 2022-07-23 14:04 | NURSING ---
patient refuses to walk for oxygen qualification test.
--- NOTE | 2022-07-23 14:13 | CASEMGMT ---
Discharge Planning SNF list created and given to SW. Clara Grover, Discharge Planning Asst.
--- NOTE | 2022-07-23 14:35 | EKGRS_ITS ---
Test Reason : CP Blood Pressure : / mmHG Vent. Rate : 067 BPM Atrial Rate : 067 BPM P-R Int : 190 ms QRS Dur : 078 ms QT Int : 404 ms P-R-T Axes : 033 006 057 degrees QTc Int : 426 ms Normal sinus rhythm Possible Inferior infarct , age undetermined Abnormal ECG Confirmed by LAURA BENITEZ, CARRIE ([id number]), legal editor KATHI TSE ([id number]) on 07/24/2022 1:58:52 PM Referred By: ABA Confirmed By:CARRIE SANCHEZ MD
--- NOTE | 2022-07-23 14:41 | CASEMGMT ---
SW reviewed therapy's notes and they are recommending placement. SW went to patient's room. Patient and her were present. SW introduced self and patient's immediately told SW that patient cannot talk right now as she is having chest pain. SW asked if they would like SW to get patient's RN and they said they already spoke with the RN, but she walked out. Patient's then said, I had to give her one of my Nitro pills. SW notified patient's RN right away. Miriam Cevallos MSW [facility]
--- NOTE | 2022-07-23 14:51 | NURSING ---
At 1435 patient said calmly that she had chest pain. Non radiating. 10 out of 10. Skin warm dry. Not grabbing chest. Nurse went to get orders for CP and while nurse left room, gave patient a nitroglycerin. 12 L EKG ordered. Asked patient if she took a NTG and she said yes. Asked what her pain was and she said zero. Clarified with patient that CP was a 10 and now is 0...... yells she doesn't understand question. I ask patient if she understands what I am asking and she says yes.
[2022-07-23 14:59] LABS: Pathologist Review Reviewed
[2022-07-23 15:17] LABS: Absolute Lymphocyte Count 2.86 X10^3/uL (0.83-4.51); Absolute Neutrophil Count 7.9 X10^3/uL (2.0-7.7); Basophil% 0.8 % (0-1); Eosinophil# 0.37 X10^3/uL; Eosinophils% 2.9 % (0-5); Hematocrit 41.7 % (37-47); Hemoglobin 13.3 g/dL (12.0-15.0); Lymphocyte # 2.86 X10^3/ul (0.83-4.51); Lymphocyte % 22.6 % (19-41); Mean Corp Hgb Conc 31.9 g/dL (32-36); Mean Corpuscular Hgb 30.3 pg (27.0-32.0); Mean Platelet Vol. 12.8 fl (6.2-12.0); Monocyte# 1.41 X10^3/uL; Monocyte% 11.1 % (0-10); NRBC Flagged by Analyzer 0 % (0-5); Neutrophil # 7.88 X10^3/uL (2.7-7.7); Neutrophil % 62.2 % (47-70); Platelet Count 182 K/mm3 (150-450); RBC Distribution Width CV 13.6 % (11.6-14.6); RBC Distribution Width SD 47.5 fl (35.1-43.9); Red Blood Count 4.39 M/mm3 (4.2-5.4); White Blood Count 12.7 K/mm3 (4.4-11.0)
[2022-07-23 15:29] LABS: Anion Gap 7 (5-15); BUN 32 mg/dL (7-18); Calcium,Total 9.2 mg/dL (8.5-10.1); Chloride 104 mmol/L (98-107); Creatinine, Serum 1.39 mg/dL (0.55-1.02); EST Glomerular Filtration Rate 38 mL/min (>60); Est Glom Filt Rate - Afr Amer 46 mL/min (>60); Estimated Creatinine Clearance 24.92 ml/min; Glucose 180 mg/dL (74-106); Sodium Level 135 mmol/L (136-145)
--- NOTE | 2022-07-23 16:01 | PN_ITS ---
Subjective Subjective Patient seen and examined. She was lying comfortably in bed. However she now states she has pain in both of her legs that she is not able to weight-bear on her legs. She is not able to characterize out the pain and so tell me the severity of the pain but does say she has pain in her legs. Review of systems otherwise negative. Objective Data Objective Data Vital Signs: Vital Signs Temp Pulse Resp BP Pulse Ox O2 Del Method O2 Flow Rate 98.0 F 70 18 142/70 H 93 Room Air 2 07/23/22 14:48 07/23/22 15:54 07/23/22 14:48 07/23/22 15:54 07/23/22 14:48 07/23/22 14:48 07/23/22 04:43 Oxygen Flow Rate (L/min) 2 Oxygen Delivery Method Room Air Weight: 166 lb 0.129 oz Body Mass Index (BMI) 29.4 Intake & Output: Intake and Output for Last 24 Hours 07/21/22 07/22/22 07/23/22 23:59 23:59 23:59 Intake Total 480 / 480 240 / 240 580 / 580 Output Total 1250 / 1250 500 / 900 800 / 800 Balance -770 / -770 -260 / -660 -220 / -220 Lab / Micro Data Result Diagrams: 07/23/22 04:53 07/23/22 04:53 Labs: Laboratory Results - last 24 hr 07/22/22 05:00: Diff Path Review Reviewed 07/22/22 16:36: POC Glucose 268 H 07/23/22 00:02: POC Glucose 187 H 07/23/22 04:53: PT 27.5 H, INR 2.5 07/23/22 04:53: WBC 12.7 H, RBC 4.39, Hgb 13.3, Hct 41.7, MCV 95.0, MCH 30.3, MCHC 31.9 L, RDW Std Deviation 47.5 H, RDW Coeff of Laquita 13.6, Plt Count 182, MPV 12.8 H, Immature Gran % (Auto) 0.400, Neut % (Auto) 62.2, Lymph % (Auto) 22.6, [place] % (Auto) 11.1 H, Eos % (Auto) 2.9, Baso % (Auto) 0.8, Absolute Neuts (auto) 7.9 H, Absolute Lymphs (auto) 2.86, Nucleated RBC % 0 07/23/22 04:53: Sodium 135 L, Potassium 4.0, Chloride 104, Carbon Dioxide 24.0, Anion Gap 7, BUN 32 H, Creatinine 1.39 H, Estim Creat Clear Calc 24.92, Est GFR (MDRD) Af Amer 46 L, Est GFR (MDRD) Non-Af 38 L, BUN/Creatinine Ratio 23.0 H, Glucose 180 H, Calcium 9.2 07/23/22 08:11: POC Glucose 232 H 07/23/22 11:00: POC Glucose 216 H Radiography Diagnostic Testing: Radiology Impression Extremity Arterial Study 07/20/22 11:38 Interpretation Summary Right MUKESH 1.69, artificially elevated due to non-compressible vessels. TBI and Doppler/PVR waveforms of the right leg normal at rest. Left MUKESH 0.86, moderate arterial insufficiency. Doppler/PVR waveforms reveal distal SFA/popliteal disease Ordering Physician: Lisset Cristobal Referring Physician: Jose J Lezama Performed By: Aneta Horner RVLauren Physical Exam Const alert, oriented x3 and no apparent distress General Appearance: cooperative HEENT normocephalic, head/scalp atraumatic, moist oral mucous membranes and oropharynx normal Eyes PERRL and EOMs intact bilaterally Neck no lymphadenopathy, supple and no JVD Lymph Lymphatic: no lymphadenopathy noted and no lymphedema noted Resp Resp Narrative: Minimally diminished breath sounds bibasally. No wheezes or crackles. Cardio regular rate, regular rhythm, S1 normal heart sound, S2 normal heart sound and no murmurs GI normal to inspection, nondistended, normoactive bowel sounds, soft to palpation, non-tender and non-distended Extremity normal capillary refill Extremity Narrative: left DP pulse present on doppler USG. No palpable tenderness on palpation of dorsum of right and left feet, bilateral calves all the way up to her knees. Distal pulses present. No differential warmth or erythema. Skin General Skin Exam: no breakdown Neuro CN's II-XII intact bilaterally, no focal motor deficits and no sensory deficits noted Motor Exam: strength 5/5 throughout Psych thought process normal and cooperative Appearance: appropriate Assessment & Plan Assessment/Plan (1) Vertigo: (2) Hypoxia: PLAN: Plan #Near syncope * MRI negative for stroke. Orthostatics were also negative. * PT OT on board. Fall precautions. * resolved. * #Left foot pain with debility * left DP pulse present and strong on doppler * no differential warmth or redness. 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 She is not complaining of right foot pain. * Patient notes that she is unable to even ambulate. PT OT consulted to evaluate patient for possible placement. * Now complains of bilateral foot pain. * ABP I done showed left ankle-brachial index of 0.86 indicating moderate arterial insufficiency with Doppler waveforms revealing distal SFA popliteal disease and right TBI be 1.69 which could be artificially elevated due to noncompressible vessels. * She is not complaining of pain in both legs up to her knees so it does not seem like it is due to any vascular insufficiency. She does not have any tenderness with palpation of her lower extremities. It is difficult to ascertain the cause of this pain. * Will place on p.o. oxycodone. PT OT on board. * #Hypoxia * resolved * PO lasix 40mg daily * 2D echo showed EF of 65% with stage 1 diastolic dysfunction and no regional wall motion abnormalities noted. * breathing treatments with bronchodilators * titrate oxygen to maintain sats >90% * resolved. * #CAD s/p CABG: On aspirin and metoprolol as well as atorvastatin. #Heart failure preserved ejection fraction: * Does not appear to be in exacerbation. * New EF of 70% on echo in September 2021. 2D echo as above. * On Lasix 40 mg daily. #CKD stage IV: Creatinine is around baseline at 1.33 today. Will monitor. #Type 2 diabetes mellitus: On Lantus 30 units qhs. Insulin sliding scale. Accu-Cheks ACHS. A1C is 7.8. #PAroxysmal afib: * on coumadin. * her insurance doesnt cover xarelto or eliquis. * INR today is 2.5. * #Hypothyroidism: * TSH is 6.4. * On Synthroid 50 mcg daily. due to her advanced age, will maintain the dose of synthroid and not adjust based on the TSS. DVT prophylaxis: on coumadin. INR is therapeutic at 2.5 today Disposition: Will benefit from placement. PT.OT consulted to evaluate patient; await PT/OT recommendations. Charges/Coding Visit Charges Inpatient E&M: 03297 Subs Hosp L2
[2022-07-23 16:18] LABS: Bedside Glucose 163 mg/dL (74-106)
[2022-07-23] MEDS: Insulin Glargine-YFGN 100 UNIT/ML Pen 30 UNIT SC ×2 (21:41)
[2022-07-23] MEDS: Atorvastatin Calcium 40 MG Tablet PO ×2 (21:41)
[2022-07-23 22:11] LABS: Bedside Glucose 141 mg/dL (74-106)
[2022-07-24] VITALS (13 sets, daily range): BP systolic 114–153; BP diastolic 57–67; PULSE 58–75; RESP 16–20; TEMP 36–36.7; O2SAT 91–98
[2022-07-24] MEDS: Levothyroxine 50 MCG Tablet PO (06:17)
[2022-07-24] MEDS: Insulin Lispro 100 UNIT/ML INSULN.PEN SC ×4 (08:42→19:57)
[2022-07-24] MEDS: Insulin Lispro 100 UNIT/ML INSULN.PEN 20 UNIT SC ×3 (08:43→17:09)
[2022-07-24] MEDS: Gabapentin 300 MG Capsule PO ×2 (08:51→16:12)
[2022-07-24] MEDS: hydrALAZINE 50 MG Tablet PO ×3 (08:51→16:13)
[2022-07-24] MEDS: Tolterodine Tartrate 2 MG CAP.SA PO (08:52)
[2022-07-24] MEDS: DULoxetine Hcl 30 MG Capsule PO (08:52)
[2022-07-24] MEDS: Aspirin E.C. 81 MG Tablet PO (08:52)
[2022-07-24] MEDS: Isosorbide Mononitrate 60 MG Tablet PO (08:52)
[2022-07-24] MEDS: Furosemide 40 MG Tablet PO (08:52)
[2022-07-24] MEDS: Cholecalciferol (VIT D3) 25 MCG TABLET (1,000 UNITS) PO (08:52)
[2022-07-24] MEDS: Metoprolol Tartrate 50 MG Tablet PO ×2 (08:54→19:54)
[2022-07-24 08:56] LABS: Absolute Lymphocyte Count 2.27 X10^3/uL (0.83-4.51); Absolute Neutrophil Count 8.1 X10^3/uL (2.0-7.7); Basophil# 0.08 X10^3/uL; Basophil% 0.7 % (0-1); Eosinophil# 0.51 X10^3/uL; Eosinophils% 4.2 % (0-5); Hematocrit 43.2 % (37-47); Hemoglobin 13.8 g/dL (12.0-15.0); Lymphocyte # 2.27 X10^3/ul (0.83-4.51); Lymphocyte % 18.8 % (19-41); Mean Corp Hgb Conc 31.9 g/dL (32-36); Mean Corpuscular Hgb 30.3 pg (27.0-32.0); Mean Corpuscular Volume 94.9 fL (81-99); Mean Platelet Vol. 11.7 fl (6.2-12.0); Monocyte# 1.12 X10^3/uL; Monocyte% 9.3 % (0-10); NRBC Flagged by Analyzer 0 % (0-5); Neutrophil # 8.06 X10^3/uL (2.7-7.7); Neutrophil % 66.5 % (47-70); Platelet Count 239 K/mm3 (150-450); RBC Distribution Width CV 13.7 % (11.6-14.6); Red Blood Count 4.55 M/mm3 (4.2-5.4); White Blood Count 12.1 K/mm3 (4.4-11.0)
[2022-07-24 09:09] LABS: International Normalized Ratio 2.2; Prothrombin Time (Protime)PT. 24.6 SECONDS (11.7-14.9)
--- NOTE | 2022-07-24 09:33 | CASEMGMT ---
SW met with patient. Introduced self and role at [facility]. SW explained to patient that therapy is recommending patient go somewhere for rehab. SW asked patient if she has ever been anywhere before and patient has been to TCU. SW let patient know that both units at [facility] are full. SW provided patient with a list of?half-way facility providers including quality and resource use data and consistent with patient?s preferred geographic region, medical needs, and insurance network were provided from the [facility] Guide. SW told patient SW will check back with patient regarding her choices. Patient was agreeable to plan. SW notified physician. Plan: SNF pending patient's choices, accepting facility, and insurance approval. Miriam Cevallos [employer] [facility]
[2022-07-24 09:41] LABS: Anion Gap 11 (5-15); BUN 44 mg/dL (7-18); Calcium,Total 9.4 mg/dL (8.5-10.1); Chloride 103 mmol/L (98-107); Creatinine, Serum 1.42 mg/dL (0.55-1.02); EST Glomerular Filtration Rate 37 mL/min (>60); Est Glom Filt Rate - Afr Amer 45 mL/min (>60); Glucose 211 mg/dL (74-106); Sodium Level 134 mmol/L (136-145)
--- NOTE | 2022-07-24 10:45 | CASEMGMT ---
Therapy saw patient this am and they are still recommending patient go somewhere for rehab. GI met with patient and her . Patient has agreed to go to [facility] as [facility] the [facility]. GI did explain patient will likely not go anywhere today as patient's insurance will need to approve which usually takes a day or so. GI asked Clara dwyer/kaylin business planning director to please make a referral to [facility]. Plan: SNF pending pre-cert Miriam BOLES
--- NOTE | 2022-07-24 10:51 | CASEMGMT ---
Discharge Planning Referral sent via [facility] to [facility] per patient request. Advised that patient is ready for discharge and pre-cert will need started. Clara Grover
--- NOTE | 2022-07-24 11:13 | CASEMGMT ---
Discharge Planning Patient has been accepted by [facility] and pre-cert will be submitted. notified. Clara Grover, Discharge Planning Asst.
[2022-07-24 11:36] LABS: Bedside Glucose 210 mg/dL (74-106)
[2022-07-24 11:36] LABS: Bedside Glucose 158 mg/dL (74-106)
--- NOTE | 2022-07-24 12:00 | PN_ITS ---
Subjective Subjective Patient seen and examined. She says she felt better than she did yesterday. She had no other complaints and review of systems otherwise negative. Plan was to discharge her today but patient now states she wants to go to detention facility. Case management on board to help with discharge planning. She has remained hemodynamically stable. Objective Data Objective Data Vital Signs: Vital Signs Temp Pulse Resp BP Pulse Ox O2 Del Method O2 Flow Rate 97.5 F L 65 20 H 114/62 94 Room Air 2 07/24/22 10:27 07/24/22 11:54 07/24/22 10:27 07/24/22 11:54 07/24/22 10:27 07/24/22 10:27 07/23/22 04:43 Oxygen Flow Rate (L/min) 2 Oxygen Delivery Method Room Air Weight: 166 lb 0.129 oz Body Mass Index (BMI) 29.4 Intake & Output: Intake and Output for Last 24 Hours 07/22/22 07/23/22 07/24/22 23:59 23:59 23:59 Intake Total 240 / 240 880 / 880 480 / 480 Output Total 500 / 900 1900 / 1900 450 / 450 Balance -260 / -660 -1020 / -1020 30 / 30 Lab / Micro Data Result Diagrams: 07/24/22 08:18 07/24/22 08:18 Labs: Laboratory Results - last 24 hr 07/22/22 05:00: Diff Path Review Reviewed 07/23/22 04:53: WBC 12.7 H, RBC 4.39, Hgb 13.3, Hct 41.7, MCV 95.0, MCH 30.3, MCHC 31.9 L, RDW Std Deviation 47.5 H, RDW Coeff of Laquita 13.6, Plt Count 182, MPV 12.8 H, Immature Gran % (Auto) 0.400, Neut % (Auto) 62.2, Lymph % (Auto) 22.6, [place] % (Auto) 11.1 H, Eos % (Auto) 2.9, Baso % (Auto) 0.8, Absolute Neuts (auto) 7.9 H, Absolute Lymphs (auto) 2.86, Nucleated RBC % 0 07/23/22 04:53: Sodium 135 L, Potassium 4.0, Chloride 104, Carbon Dioxide 24.0, Anion Gap 7, BUN 32 H, Creatinine 1.39 H, Estim Creat Clear Calc 24.92, Est GFR (MDRD) Af Amer 46 L, Est GFR (MDRD) Non-Af 38 L, BUN/Creatinine Ratio 23.0 H, Glucose 180 H, Calcium 9.2 07/23/22 15:45: POC Glucose 163 H 07/23/22 21:40: POC Glucose 141 H 07/24/22 08:18: WBC 12.1 H, RBC 4.55, Hgb 13.8, Hct 43.2, MCV 94.9, MCH 30.3, MCHC 31.9 L, RDW Std Deviation 48.0 H, RDW Coeff of Laquita 13.7, Plt Count 239, MPV 11.7, Immature Gran % (Auto) 0.500, Neut % (Auto) 66.5, Lymph % (Auto) 18.8 L, [place] % (Auto) 9.3, Eos % (Auto) 4.2, Baso % (Auto) 0.7, Absolute Neuts (auto) 8.1 H, Absolute Lymphs (auto) 2.27, Nucleated RBC % 0 07/24/22 08:18: Sodium 134 L, Potassium 4.0, Chloride 103, Carbon Dioxide 20.0 L , Anion Gap 11, BUN 44 H, Creatinine 1.42 H, Estim Creat Clear Calc 24.40, Est GFR (MDRD) Af Amer 45 L, Est GFR (MDRD) Non-Af 37 L, BUN/Creatinine Ratio 31.0 H , Glucose 211 H, Calcium 9.4 07/24/22 08:18: PT 24.6 H, INR 2.2 07/24/22 08:36: POC Glucose 210 H 07/24/22 11:13: POC Glucose 158 H Physical Exam Const alert, oriented x3 and no apparent distress General Appearance: cooperative HEENT normocephalic, head/scalp atraumatic, moist oral mucous membranes and oropharynx normal Eyes PERRL and EOMs intact bilaterally Neck no lymphadenopathy, supple and no JVD Lymph Lymphatic: no lymphadenopathy noted and no lymphedema noted Resp Resp Narrative: Minimally diminished breath sounds bibasally. No wheezes or crackles. Cardio regular rate, regular rhythm, S1 normal heart sound, S2 normal heart sound and no murmurs GI normal to inspection, nondistended, normoactive bowel sounds, soft to palpation, non-tender and non-distended Extremity normal capillary refill Extremity Narrative: left DP pulse present on doppler USG. No palpable tenderness on palpation of dorsum of right and left feet, bilateral calves all the way up to her knees. Distal pulses present. No differential warmth or erythema. Skin General Skin Exam: no breakdown Neuro CN's II-XII intact bilaterally, no focal motor deficits and no sensory deficits noted Motor Exam: strength 5/5 throughout Psych thought process normal and cooperative Appearance: appropriate Assessment & Plan Assessment/Plan (1) Vertigo: (2) Hypoxia: PLAN: Plan #Near syncope * MRI negative for stroke. Orthostatics were also negative. * PT OT on board. Fall precautions. * resolved. * #Left foot pain with debility * pain much better today. * left DP pulse present and strong on doppler * no differential warmth or redness. 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 She is not complaining of right foot pain. * Patient notes that she is unable to even ambulate. PT OT consulted to evaluate patient for possible placement. * Now complains of bilateral foot pain. * ABP I done showed left ankle-brachial index of 0.86 indicating moderate arterial insufficiency with Doppler waveforms revealing distal SFA popliteal disease and right TBI be 1.69 which could be artificially elevated due to noncompressible vessels. * She is not complaining of pain in both legs up to her knees so it does not seem like it is due to any vascular insufficiency. She does not have any tenderness with palpation of her lower extremities. It is difficult to ascertain the cause of this pain. * on p.o. oxycodone. PT OT on board. Pain much better today * #Hypoxia * resolved * PO lasix 40mg daily * 2D echo showed EF of 65% with stage 1 diastolic dysfunction and no regional wall motion abnormalities noted. * breathing treatments with bronchodilators * titrate oxygen to maintain sats >90% * resolved. * #CAD s/p CABG: On aspirin and metoprolol as well as atorvastatin. #Heart failure preserved ejection fraction: * Does not appear to be in exacerbation. * New EF of 70% on echo in September 2021. 2D echo as above. * On Lasix 40 mg daily. #CKD stage IV: Creatinine is around baseline at 1.33 today. Will monitor. #Type 2 diabetes mellitus: On Lantus 30 units qhs. Insulin sliding scale. Accu-Cheks ACHS. A1C is 7.8. #PAroxysmal afib: * on coumadin. * her insurance doesnt cover xarelto or eliquis. * INR today is 2.52 * #Hypothyroidism: * TSH is 6.4. * On Synthroid 50 mcg daily. due to her advanced age, will maintain the dose of synthroid and not adjust based on the TSS. DVT prophylaxis: on coumadin. INR is therapeutic at 2.5 today Disposition: Will benefit from placement and now receptive to placement. Case management on board to help facilitate placement. Charges/Coding Visit Charges Inpatient E&M: 54252 Subs Hosp L2
--- NOTE | 2022-07-24 15:31 | CASEMGMT ---
Addendum entered by Miriam Cevallos 07/24/22 15:37: GI notified patient, her , RN, and psychiatric secretary as well. Miriam BOLES Original Note: Patient was approved to go to [facility]. GI notified physician. Miriam BOLES
[2022-07-24 17:39] LABS: Bedside Glucose 169 mg/dL (74-106)
[2022-07-24] MEDS: Atorvastatin Calcium 40 MG Tablet PO (19:54)
[2022-07-24] MEDS: Insulin Glargine-YFGN 100 UNIT/ML Pen 30 UNIT SC (19:57)
[2022-07-24 20:21] LABS: Bedside Glucose 191 mg/dL (74-106)
[2022-07-25] VITALS (8 sets, daily range): BP systolic 114–151; BP diastolic 55–66; PULSE 61–78; RESP 16; TEMP 36.6–37.6; O2SAT 91–93; BMI 29.3
[2022-07-25] MEDS: Levothyroxine 50 MCG Tablet PO (06:29)
[2022-07-25] MEDS: Insulin Lispro 100 UNIT/ML INSULN.PEN SC ×2 (07:58→10:37)
[2022-07-25] MEDS: hydrALAZINE 50 MG Tablet PO ×2 (07:59→11:51)
[2022-07-25] MEDS: Gabapentin 300 MG Capsule PO (07:59)
[2022-07-25] MEDS: Insulin Lispro 100 UNIT/ML INSULN.PEN 20 UNIT SC ×2 (07:59→10:36)
[2022-07-25] MEDS: DULoxetine Hcl 30 MG Capsule PO (07:59)
[2022-07-25] MEDS: Isosorbide Mononitrate 60 MG Tablet PO (08:00)
[2022-07-25] MEDS: Furosemide 40 MG Tablet PO (08:00)
[2022-07-25] MEDS: Aspirin E.C. 81 MG Tablet PO (08:00)
[2022-07-25] MEDS: Tolterodine Tartrate 2 MG CAP.SA PO (08:00)
[2022-07-25] MEDS: Metoprolol Tartrate 50 MG Tablet PO (08:00)
[2022-07-25] MEDS: 0.9% Saline Lock 10 ML Syringe IV (08:01)
[2022-07-25 10:57] LABS: Bedside Glucose 262 mg/dL (74-106)
[2022-07-25 10:57] LABS: Bedside Glucose 198 mg/dL (74-106)
--- NOTE | 2022-07-25 11:00 | NURSING ---
Care assumed by this nurse.
[2022-07-25 11:29] LABS: Bedside Glucose 189 mg/dL (74-106)
--- NOTE | 2022-07-25 12:09 | TREXTCAR_ITS ---
Diet Diet Order/Speech Therapy: 07/19/22 13:36 Diet: Cardiac: Calorie-Controlled Food consistency:: Regular Liquid Consistency:: Regular/Thin Is pt able to select menu?: Yes How many daily calories?: 1600 calorie Routine Orders/Code Status Enema Type: Fleetz Enema Frequency: Daily PRN Suppository Type: Dulcolax 10mg Suppository Frequency: Daily PRN O2 Frequency: PRN Keep PO Greater than or Equal to (%): 90 Therapies Weight Bearing: Weight bearing as tolerated Physical Therapy: Eval and Treat Occupational Therapy: Eval and Treat Problem/Diagnosis (1) Vertigo: Status: Acute Code(s): R42 - Dizziness and giddiness (2) Hypoxia: Status: Acute Code(s): R09.02 - Hypoxemia Plan #Near syncope * MRI negative for stroke. Orthostatics were also negative. * PT OT on board. Fall precautions. * resolved. * #Left foot pain with debility * pain much better today. * left DP pulse present and strong on doppler * no differential warmth or redness. 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 She is not complaining of right foot pain. * Patient notes that she is unable to even ambulate. PT OT consulted to evaluate patient for possible placement. * Now complains of bilateral foot pain. * ABP I done showed left ankle-brachial index of 0.86 indicating moderate arterial insufficiency with Doppler waveforms revealing distal SFA popliteal disease and right TBI be 1.69 which could be artificially elevated due to noncompressible vessels. * She is not complaining of pain in both legs up to her knees so it does not seem like it is due to any vascular insufficiency. She does not have any tenderness with palpation of her lower extremities. It is difficult to ascertain the cause of this pain. * on p.o. oxycodone. PT OT on board. Pain much better today * #Hypoxia * resolved * PO lasix 40mg daily * 2D echo showed EF of 65% with stage 1 diastolic dysfunction and no regional wall motion abnormalities noted. * breathing treatments with bronchodilators * titrate oxygen to maintain sats >90% * resolved. * #CAD s/p CABG: On aspirin and metoprolol as well as atorvastatin. #Heart failure preserved ejection fraction: * Does not appear to be in exacerbation. * New EF of 70% on echo in September 2021. 2D echo as above. * On Lasix 40 mg daily. #CKD stage IV: Creatinine is around baseline at 1.33 today. Will monitor. #Type 2 diabetes mellitus: On Lantus 30 units qhs. Insulin sliding scale. Accu-Cheks ACHS. A1C is 7.8. #PAroxysmal afib: * on coumadin. * her insurance doesnt cover xarelto or eliquis. * INR today is 2.52 * #Hypothyroidism: * TSH is 6.4. * On Synthroid 50 mcg daily. due to her advanced age, will maintain the dose of synthroid and not adjust based on the TSS. DVT prophylaxis: on coumadin. INR is therapeutic at 2.5 today Disposition: Will benefit from placement and now receptive to placement. Case management on board to help facilitate placement. Allergies/Procedures Done in Hospital Allergies latex Allergy (Verified 07/18/22 10:44) Rash adhesive tape Adverse Reaction (Verified 07/18/22 10:44) Rash ticagrelor [From Brilinta] Adverse Reaction (Verified 07/18/22 10:44) Shortness of breath Procedures: None Type of Care/Length of Stay Estimated LOS: Convalescent Care Less Than 30 days Type of Care Needed: Skilled Rehab Potential: Fair Prognosis: Fair Additional Orders/Day of Discharge Day of Discharge: 07/25/22 Dietary and Speech Recommendations Dietitian Recommendations/Changes: Will change diet to 1600 ginette Cardiac Please consult if diet education desired by pt prior to d/c. Discharge Plan Admission Admit Date/Time: 07/18/22 14:46 Primary Reason for Your Visit: hypoxia Attending Provider: Lisset Cristobal Primary Care Provider: Jose J Lezama Consulting Providers: Roshan Horan Instructions Patient Instructions: Coping with Heart Failure Discharge Orders/Prescriptions Prescriptions: Continued gabapentin 300 mg capsule 300 mg PO BID aspirin [Adult Low Dose Aspirin] 81 mg tablet,delayed release (DR/EC) 81 mg PO DAILY cholecalciferol (vitamin D3) [Vitamin D3] 25 mcg (1,000 unit) capsule 25 mcg PO QODAY levothyroxine 50 mcg tablet 50 mcg PO DAILY atorvastatin 40 mg tablet 40 mg PO QHS duloxetine 30 mg capsule,delayed release(DR/EC) 30 mg PO DAILY metoprolol tartrate 50 mg tablet 50 mg PO BID isosorbide mononitrate 60 mg tablet extended release 24 hr 60 mg PO DAILY hydralazine 50 mg tablet 100 mg PO TID diphenhydramine-acetaminophen [Tylenol PM Extra Strength] 25-500 mg tablet 1 tab PO QHS insulin glargine [Lantus Solostar U-100 Insulin] 100 unit/mL (3 mL) insulin pen 27 unit subcut QPM Novolin N FlexPen 100 unit/mL (3 mL) insulin pen 7 unit subcut HS Qty: 3 5RF oxybutynin chloride 10 MG tablet extended release 24hr 10 mg PO DAILY insulin lispro [Humalog KwikPen Insulin] 100 unit/mL insulin pen 27 unit subcut TID PRN PRN (Reason: SLIDING SCALE) nitroglycerin 0.4 mg tablet, sublingual 0.4 mg SUBLINGUAL Q5M PRN (Reason: chest pain) Qty: 25 3RF Rx Instructions: do not exceed 3 doses per episode warfarin 4 mg tablet 4 mg PO DAILY Qty: 30 11RF Protocol: Dose Management Condition: Friday Dose/Route: 4 mg Instruction: 1 x 4 mg tablet Condition: Friday Dose/Route: 6 mg Instruction: 1.5 x 4 mg tablets Condition: Friday Dose/Route: 4 mg Instruction: 1 x 4 mg tablet Condition: Friday Dose/Route: 6 mg Instruction: 1.5 x 4 mg tablets Condition: Dose/Route: 4 mg Instruction: 1 x 4 mg tablet Condition: Friday Dose/Route: 4 mg Instruction: 1 x 4 mg tablet Condition: Friday Dose/Route: 4 mg Instruction: 1 x 4 mg tablet Protocol Text: Adjustment Start Date: Friday07/17/22 INR Value: 1.6 INR Date: 07/17/22 Recheck Date: 07/24/22 furosemide 20 mg tablet 40 mg PO DAILY Qty: 270 3RF Rx Instructions: and may take 1 tab extra as needed Referrals / Follow Up: Nayan Cee MD [Med Staff - Active Staff] - 08/08/22 1:30 pm (Appointment is with Bam QuinonesPGarcia) Jose J Lezama DO [Primary Care Provider] - 07/31/22 8:50 am Disposition Disposition (needs filled in before D/C Order can be placed): Care Home Facility
--- NOTE | 2022-07-25 12:10 | PCM.DC.SUM ---
Providers Date of Admission: 07/18/22 Date of Discharge: 07/25/22 Primary Care Physician: Dr. Jose J Lezama DO Reason For Visit: HF EXACERBATION, HYPOXIA, DIZZINESS Diagnosis Discharge Diagnosis (1) Vertigo: Status: Acute Code(s): R42 - Dizziness and giddiness (2) Hypoxia: Status: Acute Code(s): R09.02 - Hypoxemia Plan #Near syncope MRI negative for stroke. Orthostatics were also negative. PT OT on board. Fall precautions. resolved. #Left foot pain with debility pain much better today. left DP pulse present and strong on doppler no differential warmth or redness. X-ray of the left foot showed arthrosis of the left foot. She is not complaining of right foot pain. Patient notes that she is unable to even ambulate. PT OT consulted to evaluate patient for possible placement. Now complains of bilateral foot pain. ABP I done showed left ankle-brachial index of 0.86 indicating moderate arterial insufficiency with Doppler waveforms revealing distal SFA popliteal disease and right TBI be 1.69 which could be artificially elevated due to noncompressible vessels. She is not complaining of pain in both legs up to her knees so it does not seem like it is due to any vascular insufficiency. She does not have any tenderness with palpation of her lower extremities. It is difficult to ascertain the cause of this pain. on p.o. oxycodone. PT OT on board. Pain much better today #Hypoxia resolved PO lasix 40mg daily 2D echo showed EF of 65% with stage 1 diastolic dysfunction and no regional wall motion abnormalities noted. breathing treatments with bronchodilators titrate oxygen to maintain sats >90% resolved. #CAD s/p CABG: On aspirin and metoprolol as well as atorvastatin. #Heart failure preserved ejection fraction: Does not appear to be in exacerbation. New EF of 70% on echo in September 2021. 2D echo as above. On Lasix 40 mg daily. #CKD stage IV: Creatinine is around baseline at 1.33 today. Will monitor. #Type 2 diabetes mellitus: On Lantus 30 units qhs. Insulin sliding scale. Accu-Cheks ACHS. A1C is 7.8. #PAroxysmal afib: on coumadin. her insurance doesnt cover xarelto or eliquis. INR today is 2.52 #Hypothyroidism: TSH is 6.4. On Synthroid 50 mcg daily. due to her advanced age, will maintain the dose of synthroid and not adjust based on the TSS. DVT prophylaxis: on coumadin. INR is therapeutic at 2.5 today Disposition: Will benefit from placement and now receptive to placement. Case management on board to help facilitate placement. Medications at Discharge Home Medications aspirin 81 mg tablet,delayed release (Adult Low Dose Aspirin) 81 mg PO DAILY heart health 01/01/19 gabapentin 300 mg capsule 300 mg PO BID nerve pain 01/01/19 oxybutynin chloride 10 mg tablet,extended release 24 hr 10 mg PO DAILY BLADDER 03/23/19 nitroglycerin 0.4 mg sublingual tablet 0.4 mg sublingual Q5M PRN chest pain #25 tabs 09/28/19 atorvastatin 40 mg tablet 40 mg PO QHS cholesterol 05/10/20 levothyroxine 50 mcg tablet 50 mcg PO DAILY thyroid 05/10/20 cholecalciferol (vitamin D3) 25 mcg (1,000 unit) capsule (Vitamin D3) 25 mcg PO QODAY vitamin 06/20/21 isosorbide mononitrate 60 mg tablet,extended release 24 hr 60 mg PO DAILY 02/14/22 duloxetine 30 mg capsule,delayed release 30 mg PO DAILY 02/28/22 metoprolol tartrate 50 mg tablet 50 mg PO BID blood pressure 02/28/22 diphenhydramine 25 mg-acetaminophen 500 mg tablet (Tylenol PM Extra Strength) 1 tab PO QHS 04/18/22 hydralazine 50 mg tablet 100 mg PO TID 04/18/22 insulin lispro 100 unit/mL subcutaneous pen (Humalog KwikPen (U-100) Insulin) 27 unit subcut TID PRN PRN SLIDING SCALE 05/23/22 warfarin 4 mg tablet 4 mg PO DAILY #30 tabs 05/31/22 furosemide 20 mg tablet 40 mg PO DAILY #270 tabs 06/04/22 insulin glargine 100 unit/mL (3 mL) subcutaneous pen (Lantus Solostar U-100 Insulin) 27 unit subcut QPM 06/06/22 insulin NPH isoph U-100 human 100 unit/mL (3 mL) subcutaneous pen (Novolin N FlexPen) 7 unit (0.07 mL) subcut HS #3 mL 06/20/22 Hospital Course Operations None Procedures None Summary of Care Provided Minutes Spent on Discharge: 55 Hospital Course: Patient is an 86-year-old female with past medical history as outlined was admitted through the ED on 07/18/2022 with a complaint of dizziness and lightheadedness as well as vertigo. States she had also been having progressively worsening shortness of breath which had been going on for more than 6 months for less than a year. Her blood sugar was also read high when she came in though she says she usually felt dizzy when she was hypoglycemic. CT of the brain showed no acute intracranial pathology. She was admitted and managed for vertigo and near syncope with shortness of breath and hypoxia. His shortness of breath was also thought to be possibly due to pre-existing pulmonary hypertension. Chest x-ray showed mild peripheral upper lobe cephalization but no evidence of pulmonary edema. MRI of the brain was negative for stroke. Orthostatics were negative. 2D echo showed EF of 65% with stage I diastolic dysfunction and no regional wall motion abnormalities noted. Hospital course was complicated by left foot pain with subsequently became bilateral. His left DP pulse was initially diminished but subsequently was dopplerable. X-ray of the left foot showed arthrosis of the left foot. She did have an ankle-brachial pressure index done which showed a left ankle-brachial index of 0.86 indicating moderate arterial insufficiency with Doppler waveforms revealing distal SFA popliteal disease and right TBI be 1.69 which could be artificially elevated due to noncompressible vessels. The cause of her bilateral foot pain and neck pain was really not elucidated and improved on its own during admission. However patient felt she was too weak to go home and was amenable to correction facility. She was discharged to correction facility on 07/25/2022. She is to follow-up with her primary care doctor within 1 to 2 weeks. Patient seen and examined prior to discharge. She felt well and had no active complaints. She had an uneventful night. Review of systems otherwise negative. Labs and vitals reviewed. Home medication reviewed and reconciled. Physical Exam Const alert, oriented x3 and no apparent distress General Appearance: cooperative, comfortable and well kempt HEENT normocephalic, head/scalp atraumatic, hearing grossly normal bilaterally, moist oral mucous membranes and oropharynx normal Mouth: oral and palatal mucosa normal Eyes PERRL and EOMs intact bilaterally Neck no lymphadenopathy, supple and no JVD Lymph Lymphatic: no lymphadenopathy noted and no lymphedema noted Resp Resp Narrative: Minimally diminished breath sounds bibasally. No wheezes or crackles. Cardio regular rate, regular rhythm, S1 normal heart sound, S2 normal heart sound and no murmurs GI normal to inspection, nondistended, normoactive bowel sounds, soft to palpation, non-tender and non-distended Extremity normal capillary refill Extremity Narrative: left DP pulse present on doppler USG. No palpable tenderness on palpation of dorsum of right and left feet, bilateral calves all the way up to her knees. Distal pulses present. No differential warmth or erythema. Skin no rashes or lesions noted and no wounds General Skin Exam: no breakdown Neuro oriented x3, CN's II-XII intact bilaterally, moves all extremities, no focal motor deficits and no sensory deficits noted Sensorium / Orientation: awake Motor Exam: strength 5/5 throughout Psych thought process normal and cooperative Appearance: appropriate Weight / BMI Weight Weight: 165 lb 12.602 oz Body Mass Index (BMI) 29.3 ABG / Lab / Microbiology Data Result Diagrams: 07/24/22 08:18 07/24/22 08:18 Laboratory: Laboratory Results - last 24 hr 07/24/22 15:47: POC Glucose 169 H 07/24/22 19:56: POC Glucose 191 H 07/25/22 07:47: POC Glucose 262 H 07/25/22 10:35: POC Glucose 198 H 07/25/22 11:06: POC Glucose 189 H D/C Instructions Discharge Diet: Low fat / Low cholesterol Discharge Activity: Return to Normal Activity Meaningful Use Info Meaningful Use Diagnoses (Choose all that apply): None applicable Discharge Plan Admission Admit Date/Time: 07/18/22 14:46 Primary Reason for Your Visit: hypoxia Attending Provider: Lisset Cristobal Primary Care Provider: Jose J Lezama Consulting Providers: Roshan Horan Instructions Patient Instructions: Coping with Heart Failure Discharge Orders/Prescriptions Prescriptions: Continued gabapentin 300 mg capsule 300 mg PO BID aspirin [Adult Low Dose Aspirin] 81 mg tablet,delayed release (DR/EC) 81 mg PO DAILY cholecalciferol (vitamin D3) [Vitamin D3] 25 mcg (1,000 unit) capsule 25 mcg PO QODAY levothyroxine 50 mcg tablet 50 mcg PO DAILY atorvastatin 40 mg tablet 40 mg PO QHS duloxetine 30 mg capsule,delayed release(DR/EC) 30 mg PO DAILY metoprolol tartrate 50 mg tablet 50 mg PO BID isosorbide mononitrate 60 mg tablet extended release 24 hr 60 mg PO DAILY hydralazine 50 mg tablet 100 mg PO TID diphenhydramine-acetaminophen [Tylenol PM Extra Strength] 25-500 mg tablet 1 tab PO QHS insulin glargine [Lantus Solostar U-100 Insulin] 100 unit/mL (3 mL) insulin pen 27 unit subcut QPM Novolin N FlexPen 100 unit/mL (3 mL) insulin pen 7 unit subcut HS Qty: 3 5RF oxybutynin chloride 10 MG tablet extended release 24hr 10 mg PO DAILY insulin lispro [Humalog KwikPen Insulin] 100 unit/mL insulin pen 27 unit subcut TID PRN PRN (Reason: SLIDING SCALE) nitroglycerin 0.4 mg tablet, sublingual 0.4 mg SUBLINGUAL Q5M PRN (Reason: chest pain) Qty: 25 3RF Rx Instructions: do not exceed 3 doses per episode warfarin 4 mg tablet 4 mg PO DAILY Qty: 30 11RF Protocol: Dose Management Condition: Friday Dose/Route: 4 mg Instruction: 1 x 4 mg tablet Condition: Friday Dose/Route: 6 mg Instruction: 1.5 x 4 mg tablets Condition: Friday Dose/Route: 4 mg Instruction: 1 x 4 mg tablet Condition: Friday Dose/Route: 6 mg Instruction: 1.5 x 4 mg tablets Condition: Dose/Route: 4 mg Instruction: 1 x 4 mg tablet Condition: Friday Dose/Route: 4 mg Instruction: 1 x 4 mg tablet Condition: Friday Dose/Route: 4 mg Instruction: 1 x 4 mg tablet Protocol Text: Adjustment Start Date: Friday07/17/22 INR Value: 1.6 INR Date: 07/17/22 Recheck Date: 07/24/22 furosemide 20 mg tablet 40 mg PO DAILY Qty: 270 3RF Rx Instructions: and may take 1 tab extra as needed Referrals / Follow Up: Nayan Cee MD [Med Staff - Active Staff] - 08/08/22 1:30 pm (Appointment is with Bam Phillips N.P.) Jose J Lezama DO [Primary Care Provider] - 07/31/22 8:50 am Disposition Disposition (needs filled in before D/C Order can be placed): [facility] Charges/Coding Visit Charges Inpatient E&M: 87897 Disch Hosp >30min
--- NOTE | 2022-07-25 13:44 | CASEMGMT ---
Discharge Planning Discharge paperwork sent to [facility] along with pickup time. Patient will be transported at 2:00p. Nursing, SW, patient and her all notified. Clara Grover, Discharge Planning Asst.
--- NOTE | 2022-07-25 13:47 | NURSING ---
Report called to Lisa at [facility].
--- NOTE | 2022-07-25 17:58 | NURSING ---
Addendum entered by Kelly Mckenna 07/25/22 18:33: Informed [facility] that I would attempt to reach Dr. Cristobal for clarification, but if questions to contact their physician for orders. Original Note: shelter with questions regarding insulin orders. Informed them of what we were giving here. Dr. Cristobal paged to clarify insulin orders.
--- NOTE | 2022-07-25 18:57 | NURSING ---
Addendum entered by Kelly Mckenna 07/25/22 18:58: Use sliding scale humalog coverage for glucoses ac/hs. Original Note: Dr. Cristobal called with insulin orders. Give lantus as ordered. DC all routine humalog. Use sliding scale for coverage ac/hs. Lisa at [facility] notified of orders.
== END 2022-07-25 14:11 | disposition skilled nursing facility (03) | DRG 312 ==
LOC: ED 14:29 → MS3 14:51 → PCU 15:55
PROVIDERS: Admitting Provider Internal Medicine; Emergency Provider Emergency Medicine; PCP Family Medicine; Visit Provider Student in an Organized Health Care Education/Training Program
DX: R55 Syncope and collapse (principal); I13.0 Hypertensive heart and chronic kidney disease with heart failure and stage 1 through stage 4 chronic kidney disease, or unspecified chronic kidney disease; I50.32 Chronic diastolic (congestive) heart failure; N18.4 Chronic kidney disease, stage 4 (severe); I27.20 Pulmonary hypertension, unspecified; E11.21 Type 2 diabetes mellitus with diabetic nephropathy; E11.65 Type 2 diabetes mellitus with hyperglycemia; I48.0 Paroxysmal atrial fibrillation; E11.22 Type 2 diabetes mellitus with diabetic chronic kidney disease; Z79.4 Long term (current) use of insulin; E03.9 Hypothyroidism, unspecified; E78.00 Pure hypercholesterolemia, unspecified; I25.10 Atherosclerotic heart disease of native coronary artery without angina pectoris; M79.7 Fibromyalgia; M19.072 Primary osteoarthritis, left ankle and foot; Z79.82 Long term (current) use of aspirin; Z95.5 Presence of coronary angioplasty implant and graft; Z79.01 Long term (current) use of anticoagulants; Z79.02 Long term (current) use of antithrombotics/antiplatelets; Z66 Do not resuscitate; R09.02 Hypoxemia; Z86.73 Personal history of transient ischemic attack (TIA), and cerebral infarction without residual deficits; Z51.5 Encounter for palliative care; R53.81 Other malaise; Z95.1 Presence of aortocoronary bypass graft
CPT/HCPCS: 36415; 70450; 70551; 71045; 73630; 80048; 80061; 80069; 81001; 82962; 83036; 83880; 84443; 84484; 85025; 85610; 93005; 93306; 93923; 97162; 97166; 97530; 97535; 99284; J7030; A4216; J2405

== ENCOUNTER → 2022-08-15 | Outpatient (CLI) | payer MEDICARE, SELFPAY ==
[2021-06-18 13:40] VITALS: BMI 28.7
[2022-08-15 15:29] LABS: Absolute Lymphocyte Count 2.54 X10^3/uL (0.83-4.51); Absolute Neutrophil Count 7.2 X10^3/uL (2.0-7.7); Basophil# 0.08 X10^3/uL; Basophil% 0.7 % (0-1); Eosinophil# 0.32 X10^3/uL; Eosinophils% 2.9 % (0-5); Hematocrit 44.3 % (37-47); Hemoglobin 14.2 g/dL (12.0-15.0); Lymphocyte # 2.54 X10^3/ul (0.83-4.51); Lymphocyte % 22.9 % (19-41); Mean Corp Hgb Conc 32.1 g/dL (32-36); Mean Corpuscular Hgb 30.5 pg (27.0-32.0); Mean Corpuscular Volume 95.1 fL (81-99); Mean Platelet Vol. 11.3 fl (6.2-12.0); Monocyte% 8.1 % (0-10); NRBC Flagged by Analyzer 0 % (0-5); Neutrophil # 7.19 X10^3/uL (2.7-7.7); Platelet Count 237 K/mm3 (150-450); RBC Distribution Width SD 48.5 fl (35.1-43.9); Red Blood Count 4.66 M/mm3 (4.2-5.4); White Blood Count 11.1 K/mm3 (4.4-11.0)
[2022-08-15 15:53] LABS: Anion Gap 8 (5-15); BUN 37 mg/dL (7-18); BUN/Creat Ratio 21.6 RATIO (10-20); Calcium,Total 9.2 mg/dL (8.5-10.1); Chloride 104 mmol/L (98-107); Creatinine, Serum 1.71 mg/dL (0.55-1.02); EST Glomerular Filtration Rate 30 mL/min (>60); Est Glom Filt Rate - Afr Amer 37 mL/min (>60); Glucose 120 mg/dL (74-106); Potassium 4.4 mmol/L (3.5-5.1); Sodium Level 136 mmol/L (136-145)
[2022-08-15 15:59] LABS: BNP,B-Type NATRIURETIC PEPTIDE 76.8 pg/mL (0-100)
== END | disposition home or self-care (01) ==
LOC: LAB 14:56
PROVIDERS: PCP Family Medicine; Referring Provider Nurse Practitioner Gerontology; Visit Provider Nurse Practitioner Gerontology
DX: R06.00 Dyspnea, unspecified (principal)
CPT/HCPCS: 36415; 80048; 83880; 85025

== ENCOUNTER 2022-08-24 19:49 | Emergency (ER) | payer MEDICARE, SELFPAY ==
[2021-06-18 13:40] VITALS: BMI 28.7
[2022-08-24 19:51] VITALS: BP 164/68; PULSE 76; RESP 18; TEMP 35.9; O2SAT 94; BMI 29.9
--- NOTE | 2022-08-24 20:03 | EX.ED.DYSGE1 ---
HPI <JUAN FRANCISCO Patterson - Last Filed: 08/24/22 20:30> History of Present Illness Chief Complaint: Wound Narrative Narrative: 86-year-old female was trimming her toenails around 5 PM when she cut the skin on her right second toe. It's been oozing blood since then. She is on Coumadin for A-fib and is not sure the last time and INR was checked. She is also diabetic. PFSH <JUAN FRANCISCO Patterson - Last Filed: 08/24/22 20:30> [facility] Medical History (Reviewed 08/15/22 @ 16:58 by Mindy Morrissey MANUFACTURING QUALITY TECHNICIAN, MANUFACTURING QUALITY TECHNICIAN-C) (HFpEF) heart failure with preserved ejection fraction Acute on chronic heart failure with preserved ejection fraction (HFpEF) Ambulates with cane Angina pectoris Arthritis Atherosclerotic heart disease of [place] coronary artery without angina pectoris Back pain Broken ribs CAD (coronary artery disease) CAD (coronary artery disease) Cardiology follow-up encounter Carotid stenosis, left Chronic anticoagulation Chronic renal failure, stage 3 (moderate) Congestive heart failure Coronary artery disease CPAP (continuous positive airway pressure) dependence Debility Diabetes Diabetes mellitus, type 2 Dietary restriction Difficulty swallowing Easy bruising Essential hypertension Fatigue Fibromyalgia GERD (gastroesophageal reflux disease) High cholesterol History of atrial fibrillation History of CHF (congestive heart failure) History of echocardiogram History of pain when walking History of renal disease History of stress test History of stroke Hypertension Hypothyroidism Insulin dependent diabetes mellitus Intertrigo half-way current use of anticoagulant Lower GI bleeding Lumbosacral radiculopathy Microalbuminuria Migraine headache New onset atrial fibrillation Non-smoker Obstructive sleep apnea Osteoarthritis of left knee Other mcfp (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 PAF (paroxysmal atrial fibrillation) Post-menopausal Presence of stent in coronary artery (~12/11/18) Pulmonary HTN Pure hypercholesterolemia Renal cancer Shortness of breath on exertion Stroke/cerebrovascular accident Thyroid disease Vertigo Wears hearing aid Home Medications aspirin 81 mg tablet,delayed release (Adult Low Dose Aspirin) 81 mg PO DAILY heart health 01/01/19 [History Last Taken 07/18/22] gabapentin 300 mg capsule 300 mg PO BID nerve pain 01/01/19 [History Last Taken 07/18/22] oxybutynin chloride 10 mg tablet,extended release 24 hr 10 mg PO DAILY BLADDER 03/23/19 [History Last Taken 07/18/22] levothyroxine 50 mcg tablet 50 mcg PO DAILY thyroid 05/10/20 [History Last Taken 07/18/22] cholecalciferol (vitamin D3) 25 mcg (1,000 unit) capsule (Vitamin D3) 25 mcg PO QODAY vitamin 06/20/21 [History Last Taken 07/17/22] duloxetine 30 mg capsule,delayed release 30 mg PO DAILY 02/28/22 [History Last Taken 07/18/22] diphenhydramine 25 mg-acetaminophen 500 mg tablet (Tylenol PM Extra Strength) 1 tab PO QHS 04/18/22 [History Last Taken Unknown] hydralazine 50 mg tablet 100 mg PO TID 04/18/22 [History Last Taken 07/18/22] insulin lispro 100 unit/mL subcutaneous pen (Humalog KwikPen (U-100) Insulin) 27 unit subcut TID PRN PRN SLIDING SCALE 05/23/22 [History Last Taken 07/18/22] insulin glargine 100 unit/mL (3 mL) subcutaneous pen (Lantus Solostar U-100 Insulin) 27 unit subcut QPM 06/06/22 [History Last Taken 07/17/22] insulin NPH isoph U-100 human 100 unit/mL (3 mL) subcutaneous pen (Novolin N FlexPen) 7 unit (0.07 mL) subcut HS #3 mL 06/20/22 [Rx Last Taken 07/17/22] atorvastatin 40 mg tablet 40 mg PO QHS cholesterol #90 tabs 08/20/22 [Rx Last Taken Unknown] furosemide 40 mg tablet 40 mg PO .COMPLEX #180 tabs 08/20/22 [Rx Last Taken Unknown] hydralazine 100 mg tablet 100 mg PO TID #270 tabs 08/20/22 [Rx Last Taken Unknown] isosorbide mononitrate 60 mg tablet,extended release 24 hr 60 mg PO DAILY #90 tabs 08/20/22 [Rx Last Taken Unknown] nitroglycerin 0.4 mg sublingual tablet 0.4 mg sublingual Q5M PRN chest pain #25 tabs 08/20/22 [Rx Last Taken Unknown] ranolazine 500 mg tablet,extended release,12 hr 500 mg PO BID #180 tabs 08/20/22 [Rx Last Taken Unknown] warfarin 4 mg tablet 4 mg PO .COMPLEX #180 tabs 08/20/22 [Rx Last Taken Unknown] Allergy/AdvReac Type Severity Reaction Status Date / Time latex Allergy Rash Verified 08/24/22 19:51 adhesive tape AdvReac Rash Verified 08/24/22 19:51 ticagrelor [From Brilinta] AdvReac Shortness Verified 08/24/22 19:51 of breath Family History (Reviewed 08/15/22 @ 16:58 by Mindy Morrissey MANUFACTURING QUALITY TECHNICIAN, MANUFACTURING QUALITY TECHNICIAN-C) Father Heart disease Mother Breast cancer Diabetes Heart disease Surgical History (Reviewed 08/15/22 @ 16:58 by Mindy Morrissey MANUFACTURING QUALITY TECHNICIAN, MANUFACTURING QUALITY TECHNICIAN-C) H/O hemorrhoidectomy History of appendectomy History of arthroscopic knee surgery History of back surgery History of cardiac catheterization History of cholecystectomy History of coronary artery bypass graft x 3 (~04/08/16) History of hysterectomy History of knee replacement procedure of right knee History of right and left heart catheterization (LHC) (~08/10/19) History of right inguinal hernia repair Hx of CABG Hx of hand surgery Postlaminectomy syndrome of lumbar region Presence of coronary angioplasty implant and graft (~12/11/18) Social History (Reviewed 08/15/22 @ 16:58 by Mindy Morrissey MANUFACTURING QUALITY TECHNICIAN, MANUFACTURING QUALITY TECHNICIAN-C) Smoking Status: Never smoker alcohol intake: never substance use type: does not use caffeine: No ROS <JUAN FRANCISCO Patterson - Last Filed: 08/24/22 20:30> ROS ED ROS Narrative Neuro: Negative for motor/sensory dysfunction. Skin: Positive for wound. Musc: Negative for joint pain, swelling, trauma. Heme: Positive for easy bruising, bleeding. EXAM <JUAN FRANCISCO Patterson - Last Filed: 08/24/22 20:30> Physical Exam Narrative Exam Narrative: CONST: Patient sitting in no acute distress. EYES: Normal inspection. NECK: Normal inspection. RESP: No respiratory distress, CTAB. CVS: Regular rate and rhythm, no murmur, no gallop. SKIN: 2x5 mm area of skin missing on lateral tip of right second toe with slow oozing bleeding. No nail injury, no subungual hematoma. EXTREMITIES: Normal appearance, no bony tenderness of right foot, 2+ DP pulses. NEURO: Oriented x4. PSYCH: Normal affect. Const Vital Signs: 08/24/22 19:51 Temperature 96.7 F L Temperature Source Temporal Pulse Rate 76 Respiratory Rate 18 Blood Pressure 164/68 H Blood Pressure Mean 100 Pulse Ox 94 <Dr. Peter Listerman, MD - Last Filed: 08/24/22 20:54> Physical Exam Const Vital Signs: 08/24/22 19:51 Temperature 96.7 F L Temperature Source Temporal Pulse Rate 76 Respiratory Rate 18 Blood Pressure 164/68 H Blood Pressure Mean 100 Pulse Ox 94 [facility] <JUAN FRANCISCO Patterson - Last Filed: 08/24/22 20:30> [facility] Narrative Medical decision making narrative: History gathered from: Patient and Patient has a very small laceration of the right second toe from trimming her toenails. Its oozing blood likely since she is on warfarin. She has no bony tenderness and extremity is neurovascularly intact. Wound was cleansed and covered with Surgifoam and a bandage. I recommended she see her doctor next week to have it rechecked since she is diabetic. INR will be checked before discharge. Lab Data Labs: Laboratory Results - last 24 hr 08/24/22 20:15 PT 28.9 H INR 2.7 <Dr. Miguel Diaz MD - Last Filed: 08/24/22 20:54> [facility] Narrative Medical decision making narrative: History gathered from: Patient and Patient has a very small laceration of the right second toe from trimming her toenails. Its oozing blood likely since she is on warfarin. She has no bony tenderness and extremity is neurovascularly intact. Wound was cleansed and covered with Surgifoam and a bandage. I recommended she see her doctor next week to have it rechecked since she is diabetic. INR will be checked before discharge. Patient's INR is therapeutic at 2.7. I rechecked the patient. There is no bleeding through the dressing. We discussed care and expected course and reasons to return. Lab Data Attestation: I reviewed the patient's lab results. Labs: Laboratory Results - last 24 hr 08/24/22 20:15 PT 28.9 H INR 2.7 Treatment and Re-Evaluation :: I have personally performed a face to face assessment of the patient and have reviewed the LESLEY Note. I performed a substantive portion of the visit including all aspects of the following. My singh findings include: History: Patient was clipping her own nails because the facility that used to do it closed. She accidentally clipped the skin on the tip of her toe. She is on Coumadin. She states the area just keeps oozing a little bit. Exam: There is a small avulsion of tissue that is relatively superficial but does have a small amount of oozing. No sign of infection. There is no other abnormal bruising on her to any significant degree. Medical Decision Making: Surgifoam was placed on the area. We did do an INR as she has not had this checked in a while. It was therapeutic at 2.7. We discussed care and expected course. We also discussed reasons to return. Discharge Plan Triage Chief Complaint: Wound ED Midlevel Provider: Linn Tran ED Provider: Miguel Diaz Dx/Rx/DC Orders Clinical Impression: Avulsion of skin of toe, Bleeding from wound, Warfarin-induced coagulopathy Instructions: First Aid: Bleeding Prescriptions: No Action gabapentin 300 mg capsule 300 mg PO BID aspirin [Adult Low Dose Aspirin] 81 mg tablet,delayed release (DR/EC) 81 mg PO DAILY cholecalciferol (vitamin D3) [Vitamin D3] 25 mcg (1,000 unit) capsule 25 mcg PO QODAY levothyroxine 50 mcg tablet 50 mcg PO DAILY duloxetine 30 mg capsule,delayed release(DR/EC) 30 mg PO DAILY hydralazine 50 mg tablet 100 mg PO TID diphenhydramine-acetaminophen [Tylenol PM Extra Strength] 25-500 mg tablet 1 tab PO QHS insulin glargine [Lantus Solostar U-100 Insulin] 100 unit/mL (3 mL) insulin pen 27 unit subcut QPM Novolin N FlexPen 100 unit/mL (3 mL) insulin pen 7 unit subcut HS Qty: 3 5RF oxybutynin chloride 10 MG tablet extended release 24hr 10 mg PO DAILY insulin lispro [Humalog KwikPen Insulin] 100 unit/mL insulin pen 27 unit subcut TID PRN PRN (Reason: SLIDING SCALE) atorvastatin 40 mg tablet 40 mg PO QHS Qty: 90 3RF furosemide 40 mg tablet 40 mg PO .COMPLEX Qty: 180 3RF Rx Instructions: 40 mg orally daily, may take 1 extra pill daily for weight gain, swelling, or shortness of breath; hydralazine 100 mg tablet 100 mg PO TID Qty: 270 3RF isosorbide mononitrate 60 mg tablet extended release 24 hr 60 mg PO DAILY Qty: 90 3RF nitroglycerin 0.4 mg tablet, sublingual 0.4 mg SUBLINGUAL Q5M PRN (Reason: chest pain) Qty: 25 3RF Rx Instructions: do not exceed 3 doses per episode ranolazine 500 mg tablet extended release 12 hr 500 mg PO BID Qty: 180 3RF warfarin 4 mg tablet 4 mg PO .COMPLEX Qty: 180 3RF Protocol: Dose Management Condition: Friday Dose/Route: 6 mg Instruction: 1.5 x 4 mg tablets Condition: Friday Dose/Route: 4 mg Instruction: 1 x 4 mg tablet Condition: Friday Dose/Route: 4 mg Instruction: 1 x 4 mg tablet Condition: Friday Dose/Route: 4 mg Instruction: 1 x 4 mg tablet Condition: Dose/Route: 4 mg Instruction: 1 x 4 mg tablet Condition: Friday Dose/Route: 4 mg Instruction: 1 x 4 mg tablet Condition: Friday Dose/Route: 6 mg Instruction: 1.5 x 4 mg tablets Protocol Text: Adjustment Start Date: Friday08/20/22 INR Value: 2.5 INR Date: 08/05/22 Recheck Date: 08/26/22 Rx Instructions: 4 mg orally daily Friday through Friday ; and take 1and a half tablets (6mg) on Sat and Sun; or as directed; Primary Care Provider: Jose J Lezama Referrals: Jose J Lezama, [Primary Care Provider] - 1-2 Days if not improving Activity Restrictions/Additional Instructions: The gel foam will likely fall off after a couple days or you can moisten it and remove. Follow up with your doctor next week to have the wound checked since you are diabetic. Disposition Disposition: Home, Self Care
[2022-08-24] MEDS: Gelatin Sponge Absorbable 50cm (1) 1 EACH TOPICAL (20:20)
[2022-08-24 20:35] LABS: International Normalized Ratio 2.7; Prothrombin Time (Protime)PT. 28.9 SECONDS (11.7-14.9)
== END 2022-08-24 21:02 | disposition home or self-care (01) ==
PROVIDERS: Physician Assistant; Emergency Provider Emergency Medicine; PCP Family Medicine; Visit Provider Emergency Medicine
DX: S91.134A Puncture wound without foreign body of right lesser toe(s) without damage to nail, initial encounter (principal); I13.0 Hypertensive heart and chronic kidney disease with heart failure and stage 1 through stage 4 chronic kidney disease, or unspecified chronic kidney disease; I50.32 Chronic diastolic (congestive) heart failure; E11.22 Type 2 diabetes mellitus with diabetic chronic kidney disease; I48.0 Paroxysmal atrial fibrillation; D68.32 Hemorrhagic disorder due to extrinsic circulating anticoagulants; Z79.4 Long term (current) use of insulin; E78.00 Pure hypercholesterolemia, unspecified; I25.10 Atherosclerotic heart disease of native coronary artery without angina pectoris; Z79.01 Long term (current) use of anticoagulants; Z79.82 Long term (current) use of aspirin; E03.9 Hypothyroidism, unspecified; Z79.899 Other long term (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; Z85.53 Personal history of malignant neoplasm of renal pelvis; Z86.73 Personal history of transient ischemic attack (TIA), and cerebral infarction without residual deficits; Z99.89 Dependence on other enabling machines and devices; Z90.49 Acquired absence of other specified parts of digestive tract; Z95.1 Presence of aortocoronary bypass graft; Z90.710 Acquired absence of both cervix and uterus; Z96.651 Presence of right artificial knee joint; Z95.5 Presence of coronary angioplasty implant and graft; W26.8XXA Contact with other sharp object(s), not elsewhere classified, initial encounter; R23.3 Spontaneous ecchymoses
CPT/HCPCS: 36415; 85610; 99282

== ENCOUNTER 2022-09-02 09:45 | Emergency (ER) | payer MEDICARE, SELFPAY ==
[2021-06-18 13:40] VITALS: BMI 28.7
[2022-09-02 09:45] VITALS: BP 134/64; PULSE 63; RESP 18; TEMP 36.4; O2SAT 100
--- NOTE | 2022-09-02 10:13 | CT_ITS ---
STUDY: CT CHEST WITHOUT CONTRAST REASON FOR EXAM: Female, 86 years old. Blunt trauma RADIATION DOSAGE (If Supplied By Facility): CTDIvol = ( 16.23 ) mGy, DLP = ( 559.58 ) mGycm TECHNIQUE: Transaxial imaging was performed without the administration of intravenous contrast material. Multiplanar coronal and sagittal images were reformatted. Individualized dose optimization techniques were used for this CT. COMPARISON: No relevant priors. FINDINGS: CHEST Linear scarring in the right upper lobe as well as thickening of the right minor fissure. Increased markings at the lung bases suggestive of bibasilar linear atelectasis and/or mild basilar scarring. There is no demonstrated pleural abnormality. Sternal cerclage wires and vascular clips are present from a prior sternotomy and coronary artery bypass graft procedure (CABG). There are calcifications of the coronary arteries. Normal mediastinum. Calcified right hilar lymph nodes. Normal unenhanced pulmonary arteries. There is atherosclerotic calcification of the aortic arch as well as the great vessels of the neck. There is demineralization of the thoracic spine. Increased kyphosis. Electrodes from a TENS unit are seen. Prior cholecystectomy. CT/Chest without Contrast IMPRESSION: Findings suggestive of scarring in the right upper lobe. Mild scarring and/or linear atelectasis at the lung bases. Electronically Signed: Sai Calhoun MD at 12:11 EDT ,
--- NOTE | 2022-09-02 10:13 | CT_ITS ---
STUDY: CT BRAIN WITHOUT CONTRAST REASON FOR EXAM: Female, 86 years old. Head injury RADIATION DOSAGE (If Supplied By Facility): CTDIvol = ( 44.99 ) mGy, DLP = ( 779.24 ) mGycm TECHNIQUE: Transaxial CT imaging of the brain was performed without administration of intravenous contrast material. Individualized dose optimization techniques were used for this CT. COMPARISON: Comparison is made with prior study July 18, 2022. FINDINGS: Normal soft tissue structures. Normal calvarium. There is mild cerebral atrophy with widening of the extra-axial spaces and ventricular dilatation. There are areas of decreased attenuation within the white matter tracts of the supratentorial brain, consistent with microvascular disease changes. Normal basal ganglia and thalami. Normal brainstem. There is mild cerebellar atrophy. There is no intracranial hemorrhage. There are no findings of an acute ischemic infarction. Atherosclerotic calcification of the vertebral arteries and cavernous portions of the internal carotid arteries bilaterally. Mild degree of mucosal thickening of the right sphenoid sinus. CT/Brain/Head without Contrast IMPRESSION: Chronic involutional changes of the brain. Mild degree of mucosal thickening of the right sphenoid sinus. Electronically Signed: Sai Calhoun MD at 12:07 EDT ,
--- NOTE | 2022-09-02 10:13 | CT_ITS ---
STUDY: CT CERVICAL SPINE WITHOUT CONTRAST REASON FOR EXAM: Female, 86 years old. Polytrauma RADIATION DOSAGE (If Supplied By Facility): CTDIvol = ( 20.21 ) mGy, DLP = ( 407.52 ) mGycm TECHNIQUE: High resolution transaxial imaging was performed without contrast material. Sagittal and coronal images were reconstructed. Individualized dose optimization techniques were used for this CT. COMPARISON: Comparison is made with prior study dated July 02, 2021. FINDINGS: Normal craniovertebral junction. There are degenerative changes of the anterior atlantoaxial articulation. Normal odontoid process. Mucosal thickening of the right mastoid sinus. Normal cervical lordosis. Normal vertebral bodies and posterior osseous elements. C2-3: Mild degree of the disc space narrowing. Facet joint osteoarthritis and hypertrophy. No significant stenosis seen. C3-4: Normal endplates. Normal disc height and morphology. Normal central canal and intervertebral neuroforamina. C4-5: Marked degree of disc space narrowing with spondylosis. Uncovertebral arthrosis bilateral neural foraminal stenosis. Worse on the right side. C5-6: Marked degree of disc space narrowing. Spondylosis. Uncovertebral arthrosis. Bilateral neural foraminal stenosis. C6-7: Marked degree of disc space narrowing. Spondylosis. Facet joint osteoarthritis and hypertrophy. C7-T1: Normal endplates. Normal disc height and morphology. Normal central canal and intervertebral neuroforamina. Mild scarring at the right lung apex. CT/Spine Cervical without Contras IMPRESSION: Normal unenhanced CT examination of the cervical spine. Electronically Signed: Sai Calhoun MD at 12:14 EDT ,
--- NOTE | 2022-09-02 10:34 | ED.VIS.FALL ---
HPI HPI - Fall History of Present Illness Chief Complaint: Fall Informant: patient and spouse/S.O. Narrative Narrative: Dents here with significant other and mechanical fall yesterday at [employer]. She is on warfarin. States was standing at the [place] when she lost her balance, falling and hitting her hip and her head. No loss of conscious. She is on warfarin for history of paroxysmal A-fib. Denies headache nausea or vomiting. She ambulates with a walker. States there is a bump to her hip. Also reports left rib pain. No dyspnea. Prior similar symptoms: No PFSH PFSH Medical History (HFpEF) heart failure with preserved ejection fraction Acute on chronic heart failure with preserved ejection fraction (HFpEF) Ambulates with cane Angina pectoris Arthritis Atherosclerotic heart disease of [place] coronary artery without angina pectoris Back pain Broken ribs CAD (coronary artery disease) CAD (coronary artery disease) Cardiology follow-up encounter Carotid stenosis, left Chronic anticoagulation Chronic renal failure, stage 3 (moderate) Congestive heart failure Coronary artery disease CPAP (continuous positive airway pressure) dependence Debility Diabetes Diabetes mellitus, type 2 Dietary restriction Difficulty swallowing Easy bruising Essential hypertension Fatigue Fibromyalgia GERD (gastroesophageal reflux disease) High cholesterol History of atrial fibrillation History of CHF (congestive heart failure) History of echocardiogram History of pain when walking History of renal disease History of stress test History of stroke Hypertension Hypothyroidism Insulin dependent diabetes mellitus 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 Lower GI bleeding Lumbosacral radiculopathy Microalbuminuria Migraine headache New onset atrial fibrillation Non-smoker Obstructive sleep apnea Osteoarthritis of left knee 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 PAF (paroxysmal atrial fibrillation) Post-menopausal Presence of stent in coronary artery (~12/11/18) Pulmonary HTN Pure hypercholesterolemia Renal cancer Shortness of breath on exertion Stroke/cerebrovascular accident Thyroid disease Vertigo Wears hearing aid Home Medications aspirin 81 mg tablet,delayed release (Adult Low Dose Aspirin) 81 mg PO DAILY heart health 01/01/19 [History Last Taken 07/18/22] oxybutynin chloride 10 mg tablet,extended release 24 hr 10 mg PO DAILY BLADDER 03/23/19 [History Last Taken 07/18/22] levothyroxine 50 mcg tablet 50 mcg PO DAILY thyroid 05/10/20 [History Last Taken 07/18/22] cholecalciferol (vitamin D3) 25 mcg (1,000 unit) capsule (Vitamin D3) 25 mcg PO QODAY vitamin 06/20/21 [History Last Taken 07/17/22] duloxetine 30 mg capsule,delayed release 30 mg PO DAILY 02/28/22 [History Last Taken 07/18/22] diphenhydramine 25 mg-acetaminophen 500 mg tablet (Tylenol PM Extra Strength) 1 tab PO QHS 04/18/22 [History Last Taken Unknown] insulin lispro 100 unit/mL subcutaneous pen (Humalog KwikPen (U-100) Insulin) 27 unit subcut TID PRN PRN SLIDING SCALE 05/23/22 [History Last Taken 07/18/22] insulin glargine 100 unit/mL (3 mL) subcutaneous pen (Lantus Solostar U-100 Insulin) 27 unit subcut QPM 06/06/22 [History Last Taken 07/17/22] insulin NPH isoph U-100 human 100 unit/mL (3 mL) subcutaneous pen (Novolin N FlexPen) 7 unit (0.07 mL) subcut HS #3 mL 06/20/22 [Rx Last Taken 07/17/22] atorvastatin 40 mg tablet 40 mg PO QHS cholesterol #90 tabs 08/20/22 [Rx Last Taken Unknown] furosemide 40 mg tablet 40 mg PO .COMPLEX #180 tabs 08/20/22 [Rx Last Taken Unknown] hydralazine 100 mg tablet 100 mg PO TID #270 tabs 08/20/22 [Rx Last Taken Unknown] isosorbide mononitrate 60 mg tablet,extended release 24 hr 60 mg PO DAILY #90 tabs 08/20/22 [Rx Last Taken Unknown] nitroglycerin 0.4 mg sublingual tablet 0.4 mg sublingual Q5M PRN chest pain #25 tabs 08/20/22 [Rx Last Taken Unknown] ranolazine 500 mg tablet,extended release,12 hr 500 mg PO BID #180 tabs 08/20/22 [Rx Last Taken Unknown] warfarin 4 mg tablet 4 mg PO .COMPLEX #180 tabs 08/20/22 [Rx Last Taken Unknown] empagliflozin 25 mg tablet (Jardiance) 25 mg PO DAILY #30 tabs 08/29/22 [Rx Last Taken Unknown] gabapentin 300 mg capsule 600 mg PO BID nerve pain 08/29/22 [History Last Taken Unknown] Allergy/AdvReac Type Severity Reaction Status Date / Time latex Allergy Rash Verified 08/29/22 13:59 adhesive tape AdvReac Rash Verified 08/29/22 13:59 ticagrelor [From Brilinta] AdvReac Shortness Verified 08/29/22 13:59 of breath Family History Father Heart disease Mother Breast cancer Diabetes Heart disease Surgical History H/O hemorrhoidectomy History of appendectomy History of arthroscopic knee surgery History of back surgery History of cardiac catheterization History of cholecystectomy History of coronary artery bypass graft x 3 (~04/08/16) History of hysterectomy History of knee replacement procedure of right knee History of right and left heart catheterization (LHC) (~08/10/19) History of right inguinal hernia repair Hx of CABG Hx of hand surgery Postlaminectomy syndrome of lumbar region Presence of coronary angioplasty implant and graft (~12/11/18) Social History Smoking Status: Never smoker alcohol intake: never substance use type: does not use caffeine: No ROS ROS ED Constitutional Constitutional ED: Denies chills, fever(s) or sweats Eyes Eyes: Denies change in vision ENT ENT ED: Denies dysphagia or sore throat Cardiovascular Cardiovascular: Denies chest pain, leg edema, palpitations or racing heartbeat Respiratory/Chest Respiratory/Chest: Reports other Details: Left rib pain ; Denies cough, dyspnea or dyspnea on exertion Gastrointestinal Gastrointestinal: Denies abdominal pain, diarrhea, nausea or vomiting Genitourinary Genitourinary ED: Denies dysuria, hematuria or urinary frequency Musculoskeletal Musculoskeletal: Reports extremity pain; Denies back pain or neck pain Integumentary Denies rash or wounds Neurologic Neurologic: Reports headache(s); Denies paresthesias or weakness EXAM Physical Exam Const Vital Signs: 09/02/22 09:45 09/02/22 11:25 Temperature 97.6 F L 98.2 F Temperature Source Temporal Pulse Rate 63 Respiratory Rate 18 Respiratory Effort Normal Short of Breath Respiratory Depth Normal Respiratory Pattern Normal Blood Pressure 134/64 H Blood Pressure Mean 87 Pulse Ox 100 93 Oxygen Delivery Method Room Air Room Air Positive well nourished and well developed Constitutional Narrative: GCS 15 General Appearance ED: well developed and NAD HEENT Reports moist mucous membranes HEENT Narrative: Small abrasion left forehead dried blood. No lacerations. No hemotympanums. normocephalic Eyes PERRL, EOMs intact bilaterally and conjunctivae normal General Eye ED: Yes normal appearance of both eyes Neck full ROM, no lymphadenopathy and supple General: Negative for tenderness Chest Wall Chest Narrative: Tender palpation left lower ribs no crepitus. Chest: tenderness Resp normal respiratory effort and normal air movement Resp Narrative: Symmetric breath sounds Effort and Inspection: symmetric chest movement; Negative for respiratory distress Cardio regular rate, regular rhythm and no murmurs Peripheral Pulses: pulses 2+ throughout GI normal to inspection, nondistended, normoactive bowel sounds and non-tender GI Narrative: Small ecchymosis left lower abdomen however this is injection sites for the patient. Palpation: Negative for guarding or rebound tenderness present Back/Spine no CVA tenderness and no thoracic nor lumbar tenderness Extremity Extremity Narrative: Left lower extremity: Negative logroll, however there was a swelling hematoma on her lateral hip. No ecchymosis noted. Tender to palpation. No lacerations. General Extremety ED: Negative for edema or tenderness General Extremity: Negative for edema Neuro oriented x3 and no sensory deficits noted Sensorium / Orientation: awake and alert Skin no rashes or lesions noted Skin Narrative: See above MDM MDM MDM Narrative Medical decision making narrative: Interventions / MDM: Differential diagnosis: Fall, hip contusion Diagnosis considered but do not suspect: Intracranial hemorrhage, cervical spine fracture, rib fracture, hip fracture, however image studies are negative. My EKG interpretation: N/A Imaging independently reviewed and interpreted by myself: CT brain/cervical spine: No acute process. CT chest: No fractures or pneumothorax. Left hip 3 views with pelvis: No fractures. Soft tissue swelling noted. Also read by radiology. External documents reviewed: N/A Test considered but not ordered:N/A ED course: Trauma cannot obtain head neck chest due to fall on warfarin. Left hip x-ray also ordered. Lab results slightly supratherapeutic INR at 3.8. Trauma scans are negative. Patient more reassured. 1245: Plan for ambulating the patient with her walker. However on reevaluation states her glucose monitor reporting 54. She states mild nausea. Will give juice and check her fingerstick glucose. Tylenol given to help with hip pain. Will reevaluate and plan to ambulate. 1330: Patient able ambulate steady gait. Blood glucose 79. She will continue Tylenol as needed. Outpatient follow-up. All questions were answered. Re-evaluation: stable Disposition discussed with patient/family/significant other: Patient and significant other Case discussed with consulting clinician: N/A This note was generated with [employer] dictation software. It may contain incorrect words, spelling, and punctuation that were not noted in checking the note before signing. Lab Data Attestation: I reviewed the patient's lab results. Labs: Laboratory Results - last 24 hr 09/02/22 09/02/22 11:25 12:51 WBC 11.7 H RBC 3.78 L Hgb 11.4 L Hct 36.2 L MCV 95.8 MCH 30.2 MCHC 31.5 L RDW Std Deviation 51.3 H RDW Coeff of Laquita 14.8 H Plt Count 204 MPV 10.8 Immature Gran % (Auto) 0.700 Neut % (Auto) 66.7 Lymph % (Auto) 18.7 L [place] % (Auto) 10.6 H Eos % (Auto) 2.8 Baso % (Auto) 0.5 Absolute Neuts (auto) 7.8 H Absolute Lymphs (auto) 2.19 Nucleated RBC % 0 PT 38.4 H INR 3.8 APTT 61.2 H Sodium 138 Potassium 3.8 Chloride 108 H Carbon Dioxide 27.0 Anion Gap 3 L BUN 29 H Creatinine 1.55 H Estim Creat Clear Calc 22.35 Est GFR (MDRD) Af Amer 41 L Est GFR (MDRD) Non-Af 34 L BUN/Creatinine Ratio 18.7 Glucose 79 Calcium 8.6 POC Glucose 49 L Radiography Diagnostic Testing: Clinical Impression(s) from Imaging Studies Brain CT 09/02/22 10:13 IMPRESSION: Chronic involutional changes of the brain. Mild degree of mucosal thickening of the right sphenoid sinus. Electronically Signed: Sai Calhoun MD at 12:07 EDT , Cervical Spine CT 09/02/22 10:13 IMPRESSION: Normal unenhanced CT examination of the cervical spine. Electronically Signed: Sai Calhoun MD at 12:14 EDT , Chest CT 09/02/22 10:13 IMPRESSION: Findings suggestive of scarring in the right upper lobe. Mild scarring and/or linear atelectasis at the lung bases. Electronically Signed: Sai Calhoun MD at 12:11 EDT , Hip/Pelvis X-Ray 09/02/22 11:55 IMPRESSION: Degenerative changes. No acute abnormality is seen. Electronically Signed: Sai Calhoun MD at 12:16 EDT , Discharge Plan Triage Chief Complaint: Fall ED Provider: Andres Yarbrough Dx/Rx/DC Orders Clinical Impression: CHI (closed head injury), Chronic anticoagulation, Chest wall contusion, Contusion of hip, left Instructions: ED Chest Wall Contusion, ED Head Injury (Adult), ED Hip Contusion Prescriptions: No Action aspirin [Adult Low Dose Aspirin] 81 mg tablet,delayed release (DR/EC) 81 mg PO DAILY gabapentin 300 mg capsule 600 mg PO BID cholecalciferol (vitamin D3) [Vitamin D3] 25 mcg (1,000 unit) capsule 25 mcg PO QODAY levothyroxine 50 mcg tablet 50 mcg PO DAILY duloxetine 30 mg capsule,delayed release(DR/EC) 30 mg PO DAILY diphenhydramine-acetaminophen [Tylenol PM Extra Strength] 25-500 mg tablet 1 tab PO QHS insulin glargine [Lantus Solostar U-100 Insulin] 100 unit/mL (3 mL) insulin pen 27 unit subcut QPM Novolin N FlexPen 100 unit/mL (3 mL) insulin pen 7 unit subcut HS Qty: 3 5RF Jardiance 25 mg tablet 25 mg PO DAILY Qty: 30 5RF oxybutynin chloride 10 MG tablet extended release 24hr 10 mg PO DAILY insulin lispro [Humalog KwikPen Insulin] 100 unit/mL insulin pen 27 unit subcut TID PRN PRN (Reason: SLIDING SCALE) atorvastatin 40 mg tablet 40 mg PO QHS Qty: 90 3RF furosemide 40 mg tablet 40 mg PO .COMPLEX Qty: 180 3RF Rx Instructions: 40 mg orally daily, may take 1 extra pill daily for weight gain, swelling, or shortness of breath; hydralazine 100 mg tablet 100 mg PO TID Qty: 270 3RF isosorbide mononitrate 60 mg tablet extended release 24 hr 60 mg PO DAILY Qty: 90 3RF nitroglycerin 0.4 mg tablet, sublingual 0.4 mg SUBLINGUAL Q5M PRN (Reason: chest pain) Qty: 25 3RF Rx Instructions: do not exceed 3 doses per episode ranolazine 500 mg tablet extended release 12 hr 500 mg PO BID Qty: 180 3RF warfarin 4 mg tablet 4 mg PO .COMPLEX Qty: 180 3RF Protocol: Dose Management Condition: Friday Dose/Route: 6 mg Instruction: 1.5 x 4 mg tablets Condition: Friday Dose/Route: 4 mg Instruction: 1 x 4 mg tablet Condition: Friday Dose/Route: 4 mg Instruction: 1 x 4 mg tablet Condition: Friday Dose/Route: 4 mg Instruction: 1 x 4 mg tablet Condition: Dose/Route: 4 mg Instruction: 1 x 4 mg tablet Condition: Friday Dose/Route: 4 mg Instruction: 1 x 4 mg tablet Condition: Friday Dose/Route: 6 mg Instruction: 1.5 x 4 mg tablets Protocol Text: Adjustment Start Date: Friday08/20/22 INR Value: 2.5 INR Date: 08/05/22 Recheck Date: 08/26/22 Rx Instructions: 4 mg orally daily Friday through Friday ; and take 1and a half tablets (6mg) on Sat and Sun; or as directed; Primary Care Provider: Jose J Lezama Referrals: Jose J Lezama DO [Primary Care Provider] - 3-5 Days Activity Restrictions/Additional Instructions: Your CT head and neck is negative. CT chest also negative for any fractures. Hip x-ray negative. Your INR 3.8 today. Hold your warfarin today, call your doctor office who manages your warfarin for discussion for restart dosing and recheck of your warfarin levels. Continue Tylenol as needed for pain control. Disposition Disposition: Home, Self Care
[2022-09-02 11:25] VITALS: TEMP 36.8; O2SAT 93; BMI 31.2
[2022-09-02 11:33] LABS: Absolute Lymphocyte Count 2.19 X10^3/uL (0.83-4.51); Absolute Neutrophil Count 7.8 X10^3/uL (2.0-7.7); Basophil# 0.06 X10^3/uL; Basophil% 0.5 % (0-1); Eosinophil# 0.33 X10^3/uL; Eosinophils% 2.8 % (0-5); Hematocrit 36.2 % (37-47); Hemoglobin 11.4 g/dL (12.0-15.0); Lymphocyte # 2.19 X10^3/ul (0.83-4.51); Lymphocyte % 18.7 % (19-41); Mean Corp Hgb Conc 31.5 g/dL (32-36); Mean Corpuscular Hgb 30.2 pg (27.0-32.0); Mean Corpuscular Volume 95.8 fL (81-99); Mean Platelet Vol. 10.8 fl (6.2-12.0); Monocyte# 1.24 X10^3/uL; Monocyte% 10.6 % (0-10); NRBC Flagged by Analyzer 0 % (0-5); Neutrophil # 7.82 X10^3/uL (2.7-7.7); Neutrophil % 66.7 % (47-70); Platelet Count 204 K/mm3 (150-450); RBC Distribution Width CV 14.8 % (11.6-14.6); RBC Distribution Width SD 51.3 fl (35.1-43.9); Red Blood Count 3.78 M/mm3 (4.2-5.4); White Blood Count 11.7 K/mm3 (4.4-11.0)
[2022-09-02 11:44] LABS: International Normalized Ratio 3.8; Prothrombin Time (Protime)PT. 38.4 SECONDS (11.7-14.9)
[2022-09-02 11:45] LABS: Partial Thromboplast Time 61.2 Seconds (24.1-36.2)
[2022-09-02 11:48] LABS: Anion Gap 3 (5-15); BUN 29 mg/dL (7-18); BUN/Creat Ratio 18.7 RATIO (10-20); Calcium,Total 8.6 mg/dL (8.5-10.1); Chloride 108 mmol/L (98-107); Creatinine, Serum 1.55 mg/dL (0.55-1.02); EST Glomerular Filtration Rate 34 mL/min (>60); Est Glom Filt Rate - Afr Amer 41 mL/min (>60); Estimated Creatinine Clearance 22.35 ml/min; Glucose 79 mg/dL (74-106); Potassium 3.8 mmol/L (3.5-5.1); Sodium Level 138 mmol/L (136-145)
--- NOTE | 2022-09-02 11:55 | RAD_ITS ---
STUDY: X-RAY - PELVIS AND LEFT HIP REASON FOR EXAM: Female, 86 years old. Left hip pain following a fall. TECHNIQUE: 3 views of the pelvis and hip. COMPARISON: None. FINDINGS: There is a non-specific bowel gas pattern. There are multiple calcified phleboliths. Prior laminectomy and fusion at the L4-L5 level. There is narrowing with cortical sclerosis and osteophyte formation of the sacroiliac joint consistent with degenerative osteoarthritic changes. Normal bilateral superior and inferior pubic rami. There are degenerative changes of the pubic symphysis with articular narrowing and sclerosis. Normal bilateral ischial tuberosities. Normal visualized femoral head. Normal acetabulum. There is mild articular joint space narrowing of the hip. RAD/HIP, UNI W/ Pelvis 2-3 Views IMPRESSION: Degenerative changes. No acute abnormality is seen. Electronically Signed: Sai Calhoun MD at 12:16 EDT ,
--- NOTE | 2022-09-02 12:55 | ED.RN ---
PT BLOOD GLUCOSE 49. CRANBERRY JUICE PROVIDED TO PT. DR. LOPEZ.
[2022-09-02] MEDS: Acetaminophen 500 MG Tablet 1000 MG PO (13:08)
[2022-09-02 13:09] LABS: Bedside Glucose 49 mg/dL (74-106)
[2022-09-02 13:36] LABS: Bedside Glucose 79 mg/dL (74-106)
[2022-09-02 14:03] VITALS: BP 129/57; PULSE 53; RESP 17; O2SAT 94
== END 2022-09-02 14:03 | disposition home or self-care (01) ==
PROVIDERS: Emergency Provider Emergency Medicine; PCP Family Medicine; Visit Provider Emergency Medicine
DX: S09.90XA Unspecified injury of head, initial encounter (principal); I50.32 Chronic diastolic (congestive) heart failure; I13.0 Hypertensive heart and chronic kidney disease with heart failure and stage 1 through stage 4 chronic kidney disease, or unspecified chronic kidney disease; E11.22 Type 2 diabetes mellitus with diabetic chronic kidney disease; Z79.4 Long term (current) use of insulin; Z79.01 Long term (current) use of anticoagulants; W19.XXXA Unspecified fall, initial encounter; S70.02XA Contusion of left hip, initial encounter; I25.10 Atherosclerotic heart disease of native coronary artery without angina pectoris; R79.1 Abnormal coagulation profile; E78.00 Pure hypercholesterolemia, unspecified; S20.20XA Contusion of thorax, unspecified, initial encounter
CPT/HCPCS: 70450; 71250; 72125; 73502; 80048; 82962; 85025; 85610; 85730; 99283; A4216

== ENCOUNTER → 2022-09-13 | Outpatient (CLI) | payer MEDICARE, SELFPAY ==
[2021-06-18 13:40] VITALS: BMI 28.7
--- NOTE | 2022-09-13 11:27 | RAD_ITS ---
STUDY: X-RAY CHEST REASON FOR EXAM: Female, 87 years old. Right lower lobe and left lower lobe crackles. Dyspnea on exertion. TECHNIQUE: Frontal and lateral views of the chest. COMPARISON: July 18, 2022. FINDINGS: Cardiomegaly, sternotomy wires, aortic tortuosity with calcification, hilar granulomatous calcifications and elevation of the right hemidiaphragm with minimal atelectasis and healed granulomatous parenchymal calcifications all unchanged from the prior study. Stable epidural catheter. No abnormality of the visualized soft tissue structures of the upper abdomen. RAD/Chest PA and Lateral IMPRESSION: Stable chest with no acute or active cardiopulmonary disease. Electronically Signed: Dhruv Guillen MD at 12:47 EDT ,
[2022-09-13 13:01] LABS: Albumin, Serum 3.3 g/dL (3.2-5.0); BUN 39 mg/dL (7-18); BUN/Creat Ratio 16.7 RATIO (10-20); Calcium,Total 8.8 mg/dL (8.5-10.1); Chloride 105 mmol/L (98-107); Creatinine, Serum 2.34 mg/dL (0.55-1.02); EST Glomerular Filtration Rate 21 mL/min (>60); Est Glom Filt Rate - Afr Amer 25 mL/min (>60); Glucose 102 mg/dL (74-106); Phosphorus 3.7 mg/dL (2.5-4.9); Potassium 3.4 mmol/L (3.5-5.1); Sodium Level 139 mmol/L (136-145)
== END | disposition home or self-care (01) ==
LOC: LAB 11:21
PROVIDERS: PCP Family Medicine; Referring Provider Internal Medicine Nephrology; Visit Provider Internal Medicine Nephrology
DX: N18.32 Chronic kidney disease, stage 3b (principal); R06.00 Dyspnea, unspecified
CPT/HCPCS: 36415; 71046; 80069

== ENCOUNTER → 2022-09-26 | Outpatient (CLI) | payer MEDICARE, SELFPAY ==
[2021-06-18 13:40] VITALS: BMI 28.7
[2022-09-26 12:31] LABS: Albumin, Serum 3.6 g/dL (3.2-5.0); BUN 44 mg/dL (7-18); Calcium,Total 9.1 mg/dL (8.5-10.1); Chloride 104 mmol/L (98-107); Creatinine, Serum 2.31 mg/dL (0.55-1.02); EST Glomerular Filtration Rate 21 mL/min (>60); Est Glom Filt Rate - Afr Amer 26 mL/min (>60); Glucose 200 mg/dL (74-106); Phosphorus 3.9 mg/dL (2.5-4.9); Potassium 4.1 mmol/L (3.5-5.1); Sodium Level 135 mmol/L (136-145)
== END | disposition home or self-care (01) ==
LOC: POLAB3 11:40
PROVIDERS: PCP Family Medicine; Visit Provider Internal Medicine Nephrology
DX: N17.9 Acute kidney failure, unspecified (principal)
CPT/HCPCS: 36415; 80069

== ENCOUNTER → 2022-11-01 | Outpatient (CLI) | payer MEDICARE, SELFPAY ==
[2021-06-18 13:40] VITALS: BMI 28.7
--- NOTE | 2022-11-01 14:16 | CT_ITS ---
STUDY: CT BRAIN WITHOUT CONTRAST REASON FOR EXAM: Female, 87 years old. Fall on warfarin RADIATION DOSAGE (If Supplied By Facility): CTDIvol = ( 47.06 ) mGy, DLP = ( 872.68 ) mGycm TECHNIQUE: Transaxial CT imaging of the brain was performed without administration of intravenous contrast material. Individualized dose optimization techniques were used for this CT. COMPARISON: Comparison is made with prior study dated September 02, 2022. FINDINGS: Normal soft tissue structures. Normal calvarium. There is mild cerebral atrophy with widening of the extra-axial spaces and ventricular dilatation. There are areas of decreased attenuation within the white matter tracts of the supratentorial brain, consistent with microvascular disease changes. Normal basal ganglia and thalami. Normal brainstem. There is mild cerebellar atrophy. There is no intracranial hemorrhage. There are no findings of an acute ischemic infarction. Atherosclerotic calcification of the vertebral arteries and cavernous portions of the internal carotid arteries bilaterally. Air-fluid level is seen in the right sphenoid sinus. CT/Brain/Head without Contrast IMPRESSION: Chronic involutional changes of the brain. Air-fluid level is seen in the right sphenoid sinus. Electronically Signed: Sai Calhoun MD at 14:38 EDT ,
[2022-11-01 16:13] LABS: Absolute Lymphocyte Count 1.31 X10^3/uL (0.83-4.51); Absolute Neutrophil Count 6.6 X10^3/uL (2.0-7.7); Basophil# 0.07 X10^3/uL; Basophil% 0.8 % (0-1); Eosinophil# 0.13 X10^3/uL; Eosinophils% 1.5 % (0-5); Hematocrit 43.1 % (37-47); Lymphocyte # 1.31 X10^3/ul (0.83-4.51); Lymphocyte % 14.8 % (19-41); Mean Corp Hgb Conc 32.5 g/dL (32-36); Mean Corpuscular Hgb 30.8 pg (27.0-32.0); Mean Corpuscular Volume 94.9 fL (81-99); Monocyte# 0.69 X10^3/uL; Monocyte% 7.8 % (0-10); NRBC Flagged by Analyzer 0 % (0-5); Neutrophil # 6.59 X10^3/uL (2.7-7.7); Neutrophil % 74.6 % (47-70); Platelet Count 230 K/mm3 (150-450); RBC Distribution Width CV 14.3 % (11.6-14.6); RBC Distribution Width SD 49.5 fl (35.1-43.9); Red Blood Count 4.54 M/mm3 (4.2-5.4); White Blood Count 8.8 K/mm3 (4.4-11.0)
[2022-11-01 16:19] LABS: BNP,B-Type NATRIURETIC PEPTIDE 87.2 pg/mL (0-100)
[2022-11-01 16:27] LABS: Anion Gap 10 (5-15); BUN 34 mg/dL (7-18); Calcium,Total 9.1 mg/dL (8.5-10.1); Chloride 102 mmol/L (98-107); Creatinine, Serum 2.13 mg/dL (0.55-1.02); EST Glomerular Filtration Rate 23 mL/min (>60); Est Glom Filt Rate - Afr Amer 28 mL/min (>60); Glucose 436 mg/dL (74-106); Potassium 4.4 mmol/L (3.5-5.1); Sodium Level 134 mmol/L (136-145); Thyroid Stim Hormone (TSH) 1.93 uIU/mL (0.358-3.74)
== END | disposition home or self-care (01) ==
PROVIDERS: PCP Family Medicine; Referring Provider Nurse Practitioner Gerontology; Visit Provider Nurse Practitioner Gerontology
DX: Z79.01 Long term (current) use of anticoagulants (principal); W19.XXXA Unspecified fall, initial encounter; R06.00 Dyspnea, unspecified
CPT/HCPCS: 36415; 70450; 80048; 83880; 84443; 85025

== ENCOUNTER → 2022-11-12 | Outpatient (CLI) | payer MEDICARE, SELFPAY ==
[2021-06-18 13:40] VITALS: BMI 28.7
[2022-11-12 18:24] LABS: Vitamin B12 314 pg/mL (211-911)
== END | disposition home or self-care (01) ==
LOC: BFHLAB 14:33
PROVIDERS: PCP Family Medicine; Referring Provider Family Medicine; Visit Provider Family Medicine
DX: R53.83 Other fatigue (principal); G31.9 Degenerative disease of nervous system, unspecified
CPT/HCPCS: 36415; 82607; 82746

== ENCOUNTER 2022-11-20 12:25 | Observation (INO) | payer MEDICARE, SELFPAY ==
[2021-06-18 13:40] VITALS: BMI 28.7
[2022-11-20] VITALS (11 sets, daily range): BP systolic 124–188; BP diastolic 48–88; PULSE 49–58; RESP 13–18; TEMP 36.2–36.8; O2SAT 90–96; BMI 28.0; BMI 27.9
--- NOTE | 2022-11-20 12:52 | EKG12_ITS ---
Test Reason : CP Blood Pressure : / mmHG Vent. Rate : 054 BPM Atrial Rate : 054 BPM P-R Int : 204 ms QRS Dur : 080 ms QT Int : 476 ms P-R-T Axes : 022 006 057 degrees QTc Int : 451 ms Sinus bradycardia Possible Inferior infarct (cited on or before 23-JUL-2022) Abnormal ECG Confirmed by LAURA BENITEZ, CARRIE ([id number]), editor in chief newspaper [employer] ([id number]) on 11/25/2022 2:00:51 PM Referred By: RAFAEL Confirmed By:CARRIE SANCHEZ MD
--- NOTE | 2022-11-20 12:53 | EDS_ITS ---
HPI History of Present Illness Chief Complaint: Chest Pain Detail of Chief Complaint: Chest pain Informant: patient and spouse/S.O. Narrative Narrative: Patient presents to the emergency department complaint of chest pain that started about 2 hours ago. Patient states that she was at rest sitting when the pain started. She describes a sharp pain that really does not radiate anywhere but she also has a headache. She denies nausea or vomiting. She denies feeling short of breath. Denies injury to her chest. She denies recent travel or surgery. Patient is on warfarin. She does have history of coronary artery disease with prior CABG. She denies recent illness and has had no cough or fever. [facility] Medical History (Reviewed 11/01/22 @ 13:35 by Mindy Morrissey SR. UNIX SYSTEM ADMINISTRATOR, SR. UNIX SYSTEM ADMINISTRATOR-C) (HFpEF) heart failure with preserved ejection fraction Acute on chronic heart failure with preserved ejection fraction (HFpEF) Ambulates with cane Angina pectoris Arthritis Atherosclerotic heart disease of [place] coronary artery without angina pectoris Back pain Broken ribs CAD (coronary artery disease) CAD (coronary artery disease) Cardiology follow-up encounter Carotid stenosis, left Chronic anticoagulation Chronic renal failure, stage 3 (moderate) Congestive heart failure Coronary artery disease CPAP (continuous positive airway pressure) dependence Debility Diabetes Diabetes mellitus, type 2 Dietary restriction Difficulty swallowing Easy bruising Essential hypertension Fatigue Fibromyalgia GERD (gastroesophageal reflux disease) High cholesterol History of atrial fibrillation History of CHF (congestive heart failure) History of echocardiogram History of pain when walking History of renal disease History of stress test History of stroke Hypertension Hypothyroidism Insulin dependent diabetes mellitus [employer] [facility] current use of anticoagulant Lower GI bleeding Lumbosacral radiculopathy Microalbuminuria Migraine headache New onset atrial fibrillation Non-smoker Obstructive sleep apnea Osteoarthritis of left knee Other detention (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 PAF (paroxysmal atrial fibrillation) Post-menopausal Presence of stent in coronary artery (~12/11/18) Pulmonary HTN Pure hypercholesterolemia Renal cancer Shortness of breath on exertion Stroke/cerebrovascular accident Thyroid disease Vertigo Wears hearing aid Home Medications aspirin 81 mg tablet,delayed release (Adult Low Dose Aspirin) 81 mg PO DAILY heart health 01/01/19 [History Last Taken 07/18/22] oxybutynin chloride 10 mg tablet,extended release 24 hr 10 mg PO DAILY BLADDER 03/23/19 [History Last Taken 07/18/22] levothyroxine 50 mcg tablet 50 mcg PO DAILY thyroid 05/10/20 [History Last Taken 07/18/22] cholecalciferol (vitamin D3) 25 mcg (1,000 unit) capsule (Vitamin D3) 25 mcg PO QODAY vitamin 06/20/21 [History Last Taken 07/17/22] duloxetine 30 mg capsule,delayed release 30 mg PO DAILY 02/28/22 [History Last Taken 07/18/22] diphenhydramine 25 mg-acetaminophen 500 mg tablet (Tylenol PM Extra Strength) 1 tab PO QHS 04/18/22 [History Last Taken Unknown] insulin lispro 100 unit/mL subcutaneous pen (Humalog KwikPen (U-100) Insulin) 27 unit subcut TID PRN PRN SLIDING SCALE 05/23/22 [History Last Taken 07/18/22] insulin glargine 100 unit/mL (3 mL) subcutaneous pen (Lantus Solostar U-100 Insulin) 27 unit subcut QPM 06/06/22 [History Last Taken 07/17/22] insulin NPH isoph U-100 human 100 unit/mL (3 mL) subcutaneous pen (Novolin N FlexPen) 7 unit (0.07 mL) subcut HS #3 mL 06/20/22 [Rx Last Taken 07/17/22] atorvastatin 40 mg tablet 40 mg PO QHS cholesterol #90 tabs 08/20/22 [Rx Last Taken Unknown] furosemide 40 mg tablet 40 mg PO .COMPLEX #180 tabs 08/20/22 [Rx Last Taken Unknown] hydralazine 100 mg tablet 100 mg PO TID #270 tabs 08/20/22 [Rx Last Taken Unknown] nitroglycerin 0.4 mg sublingual tablet 0.4 mg sublingual Q5M PRN chest pain #25 tabs 08/20/22 [Rx Last Taken Unknown] ranolazine 500 mg tablet,extended release,12 hr 500 mg PO BID #180 tabs 08/20/22 [Rx Last Taken Unknown] warfarin 4 mg tablet 4 mg PO .COMPLEX #180 tabs 08/20/22 [Rx Last Taken Unknown] empagliflozin 25 mg tablet (Jardiance) 25 mg PO DAILY #30 tabs 08/29/22 [Rx Last Taken Unknown] gabapentin 300 mg capsule 600 mg PO TID nerve pain 11/01/22 [History Last Taken Unknown] isosorbide mononitrate 60 mg tablet,extended release 24 hr 60 mg PO BID #180 tabs 11/01/22 [Rx Last Taken Unknown] metoprolol tartrate 50 mg tablet 50 mg PO BID #180 tabs 11/04/22 [Rx Last Taken Unknown] flash glucose scanning reader ([employer] [place]) #1 ea 11/08/22 [Rx Last Taken Unknown] Allergy/AdvReac Type Severity Reaction Status Date / Time latex Allergy Rash Verified 11/20/22 12:27 adhesive tape AdvReac Rash Verified 11/20/22 12:27 ticagrelor [From Brilinta] AdvReac Shortness Verified 11/20/22 12:27 of breath Family History Father Heart disease Mother Breast cancer Diabetes Heart disease Surgical History (Reviewed 11/01/22 @ 13:35 by Mindy Morrissey SR. UNIX SYSTEM ADMINISTRATOR, SR. UNIX SYSTEM ADMINISTRATOR-C) H/O hemorrhoidectomy History of appendectomy History of arthroscopic knee surgery History of back surgery History of cardiac catheterization History of cholecystectomy History of coronary artery bypass graft x 3 (~04/08/16) History of hysterectomy History of knee replacement procedure of right knee History of right and left heart catheterization (LHC) (~08/10/19) History of right inguinal hernia repair Hx of CABG Hx of hand surgery Postlaminectomy syndrome of lumbar region Presence of coronary angioplasty implant and graft (~12/11/18) Social History (Updated 11/20/22 @ 12:35 by Rachel Strickland) household members: spouse housing: house Smoking Status: Never smoker alcohol intake: never substance use type: does not use caffeine: No ROS ROS ED Review of Systems ROS Unobtainable: other Constitutional Constitutional ED: Reports lethargy; Denies chills, fever(s), sweats or weight loss Eyes Eyes: Denies blurry vision, change in vision or diplopia ENT ENT ED: Denies rhinorrhea or sore throat Cardiovascular Cardiovascular: Reports chest pain; Denies orthopnea or racing heartbeat Respiratory/Chest Respiratory/Chest: Denies cough, dyspnea, dyspnea on exertion, orthopnea or sputum Gastrointestinal Gastrointestinal: Denies abdominal pain, diarrhea, nausea or vomiting Genitourinary Genitourinary ED: Denies dysuria, hematuria or urinary frequency Musculoskeletal Musculoskeletal: Denies arthralgias, back pain, myalgias or neck pain Integumentary Denies abscess, Abrasions or rash Neurologic Neurologic: Denies headache(s) or weakness Psychiatric Psychiatric: Denies anxiety, depression or suicidal thoughts Endocrine Endocrinology: Denies polydipsia, polyphagia or polyuria Hematologic/Lymphatic Hematologic/Lymphatic: Denies easy bleeding, easy bruising or lymphadenopathy Allergic/Immunologic Allergic/Immunologic ED: Denies mouth swelling, tongue swelling or urticaria EXAM Physical Exam Const Vital Signs: 11/20/22 12:26 11/20/22 12:27 11/20/22 12:32 Temperature 97.1 F L Temperature Source Temporal Pulse Rate 49 L Respiratory Rate 14 Respiratory Effort Normal Non-Labored Blood Pressure 143/60 H Blood Pressure Mean 87 Pulse Ox 95 Oxygen Delivery Method Room Air 11/20/22 12:52 Temperature Temperature Source Pulse Rate Respiratory Rate Respiratory Effort Blood Pressure Blood Pressure Mean Pulse Ox 92 Oxygen Delivery Method Room Air Positive well nourished and well developed General Appearance ED: well developed and NAD HEENT Reports TM's clear and moist mucous membranes normocephalic and atraumatic; Negative for trauma or tenderness Tympanic Membrane ED: Yes TM's clear Eyes PERRL and EOMs intact bilaterally General Eye ED: Negative for pale conjunctiva or scleral icterus Neck no lymphadenopathy, supple and no JVD General: Negative for tenderness Chest Wall inspection of chest normal Chest Narrative: Tenderness palpation over the right anterior chest wall that seems to reproduce her pain. Chest: Negative for tenderness Resp normal respiratory effort and clear to auscultation bilaterally Effort and Inspection: Negative for respiratory distress or pain with movement Auscultation: Negative for rhonchi, wheezes or diminished lung sounds Cardio regular rate, regular rhythm, S1 normal heart sound, S2 normal heart sound and no murmurs Peripheral Pulses: pulses 2+ throughout GI normal to inspection, nondistended, normoactive bowel sounds, soft to palpation, non-tender, non-distended and no masses Back/Spine no CVA tenderness and no thoracic nor lumbar tenderness Extremity normal to inspection General Extremety ED: Negative for edema General Extremity: Negative for edema Neuro oriented x3, CN's II-XII intact bilaterally, no sensory deficits noted and gait normal Sensorium / Orientation: awake, alert, oriented to person, oriented to place and oriented to time Motor Exam: strength 5/5 throughout and strength abnormal Psych mental status grossly normal Skin no rashes or lesions noted and no wounds MDM MDM MDM Narrative Medical decision making narrative: Patient presents with sudden onset right-sided chest pain. In the differential would be PE versus acute coronary syndrome versus pneumothorax or chest wall pain. On exam pain somewhat reproducible but not completely. EKG obtained showed a sinus rhythm with a rate of 54 bpm with no acute ST segment changes. CBC with differential showed a white count of 9.7 with hemoglobin of 13 and platelet count of 281. Chemistries show a BUN of 44 and creatinine 2.34. Troponin normal at 12. D-dimer was elevated 1.94. INR was 1.8. Chest x-ray obtained showed no acute disease process. At this point etiology of her pain is unclear. She is somewhat therapeutic on her INR and still concerned about possibility for PE as no other etiology for her pain is found. We will obtain a delta troponin. Patient a very difficult IV stick and given her kidney function will be unable to obtain CTA of her chest. Case will be discussed with hospitalist to evaluate patient for admission for possible VQ scan. I did discuss case with hospitalist on-call who notes that patient has a Wells score of 0 and he has low suspicion for PE however if delta troponin is positive she will require admission. Patient may also be admitted for VQ scan if she has ongoing pain. Discussed this with evening physician and care of patient will be turned over to evening physician awaiting final disposition once delta troponin returns. Lab Data Attestation: I reviewed the patient's lab results. Labs: Laboratory Results - last 24 hr 11/20/22 11/20/22 12:48 14:25 WBC 9.7 RBC 4.45 Hgb 13.2 Hct 42.4 MCV 95.3 MCH 29.7 MCHC 31.1 L RDW Std Deviation 49.5 H RDW Coeff of [place]qu[place] 14.2 Plt Count 281 MPV 11.7 Immature Gran % (Auto) 0.400 Neut % (Auto) 69.0 Lymph % (Auto) 19.3 [place] % (Auto) 8.3 Eos % (Auto) 2.3 Baso % (Auto) 0.7 Absolute Neuts (auto) 6.7 Absolute Lymphs (auto) 1.88 Nucleated RBC % 0 Differential Comment SCANNED PT 20.6 H INR 1.8 D-Dimer Quant (PE/DVT) 1.94 H* Sodium 135 L Potassium 3.8 Chloride 101 Carbon Dioxide 25.0 Anion Gap 9 BUN 44 H Creatinine 2.34 H Estim Creat Clear Calc 14.54 Est GFR (MDRD) Af Amer 25 L Est GFR (MDRD) Non-Af 21 L BUN/Creatinine Ratio 18.8 Glucose 164 H Calcium 9.0 Troponin I High Sens 12 Radiography Chest X-Ray - ED: 1 View Diagnostic Testing: Clinical Impression(s) from Imaging Studies Chest X-Ray 11/20/22 13:10 IMPRESSION: No acute cardiopulmonary abnormality. No interval change Electronically Signed: Tonny Breen MD at 13:25 EDT , 1 view chest x-ray obtained interpreted by myself as no evidence of infiltrate or pneumothorax or acute disease process. Radiology in agreement. EKG Initial EKG: Attestation: I personally reviewed and interpreted this EKG as follows: Comments: Sinus rhythm with a rate of 54 bpm with no acute ST segment changes Discharge Plan Dx/Rx/DC Orders Clinical Impression: History of coronary artery disease, Chest pain, Hypertension Disposition Disposition: Acute Care Hospital [facility]
--- NOTE | 2022-11-20 13:10 | RAD_ITS ---
EXAM: XR CHEST, 1 VIEW CLINICAL INDICATION: chest pain TECHNIQUE: Frontal view of the chest. COMPARISON: XR Chest dated 09/13/2022 FINDINGS: LUNGS AND PLEURAL SPACES: No consolidation or edema. No pneumothorax. No effusion. HEART: Stable normal heart size. Surgical changes of coronary artery bypass graft (CABG). MEDIASTINUM: No mediastinal or hilar mass. BONES/JOINTS: No acute abnormality. TUBES, LINES AND DEVICES: Intraspinal stimulator wire place. RAD/Chest 1 View (Portable) IMPRESSION: No acute cardiopulmonary abnormality. No interval change Electronically Signed: Tonny Breen MD at 13:25 EDT ,
[2022-11-20 13:28] LABS: Absolute Lymphocyte Count 1.88 X10^3/uL (0.83-4.51); Absolute Neutrophil Count 6.7 X10^3/uL (2.0-7.7); Basophil# 0.07 X10^3/uL; Basophil% 0.7 % (0-1); Eosinophil# 0.22 X10^3/uL; Eosinophils% 2.3 % (0-5); Hematocrit 42.4 % (37-47); Hemoglobin 13.2 g/dL (12.0-15.0); Lymphocyte # 1.88 X10^3/ul (0.83-4.51); Lymphocyte % 19.3 % (19-41); Mean Corp Hgb Conc 31.1 g/dL (32-36); Mean Corpuscular Hgb 29.7 pg (27.0-32.0); Mean Corpuscular Volume 95.3 fL (81-99); Mean Platelet Vol. 11.7 fl (6.2-12.0); Monocyte# 0.81 X10^3/uL; Monocyte% 8.3 % (0-10); NRBC Flagged by Analyzer 0 % (0-5); Neutrophil # 6.72 X10^3/uL (2.7-7.7); POSITIVE COUNT YES; Platelet Count 281 K/mm3 (150-450); RBC Distribution Width CV 14.2 % (11.6-14.6); RBC Distribution Width SD 49.5 fl (35.1-43.9); Red Blood Count 4.45 M/mm3 (4.2-5.4); White Blood Count 9.7 K/mm3 (4.4-11.0)
[2022-11-20 13:35] LABS: Differential Indicated SCAN CRITERIA MET
[2022-11-20 13:44] LABS: Differential Comment SCANNED
[2022-11-20 13:54] LABS: International Normalized Ratio 1.8; Prothrombin Time (Protime)PT. 20.6 SECONDS (11.7-14.9)
[2022-11-20 14:09] LABS: Anion Gap 9 (5-15); BUN 44 mg/dL (7-18); BUN/Creat Ratio 18.8 RATIO (10-20); Chloride 101 mmol/L (98-107); Creatinine, Serum 2.34 mg/dL (0.55-1.02); EST Glomerular Filtration Rate 21 mL/min (>60); Est Glom Filt Rate - Afr Amer 25 mL/min (>60); Estimated Creatinine Clearance 14.54 ml/min; Glucose 164 mg/dL (74-106); Potassium 3.8 mmol/L (3.5-5.1); Sodium Level 135 mmol/L (136-145); Troponin-I HS (w/2H Reflex) 12 pg/mL (3.0-54.0)
[2022-11-20] MEDS: Morphine 4 MG/ML Syringe IV (14:32)
[2022-11-20] MEDS: Ondansetron 4 MG/2 ML Vial IV (14:32)
[2022-11-20 14:49] LABS: D-Dimer Quantitative (DVT/PE) 1.94 FEU/ug/m (0.27-0.49)
[2022-11-20 15:21] LABS: Reflex Troponin-HS? (from REC) Y
[2022-11-20 15:54] LABS: Troponin-I HS 13 pg/mL (3.0-54.0)
--- NOTE | 2022-11-20 17:33 | NURSING ---
PCU OBS [place] ATYPICAL CP R/O PE, RENAL INSUFFICIENCY
[2022-11-20] MEDS: Meclizine HCl 25 MG Tablet PO (17:43)
--- NOTE | 2022-11-20 18:26 | PCM.HP.STD ---
HPI - General General Date of Admission: 11/20/22 HPI Narrative GLORIA PAUL, is a 87 F who presents to the hospital with a transient right-sided chest pain. She does have some chest pain on palpation but she says that it is different than the pain that she had this morning while she was just sitting in her chair. She is already anticoagulated for A-fib however a D-dimer was obtained which was elevated unfortunately she has chronic kidney disease that precludes a CT of the chest so there was some thought of bringing her in for a VQ scan. She did have an ambulatory pulse ox in the ER which was abnormal down to 76% on room air. She does state that she gets short of breath very quickly with ambulation but does not appear to have history pulmonary hypertension. She says that she feels much better now however given her hypoxia with ambulation she does need to be evaluated for home-going oxygen. Chest x-ray was unremarkable and her lab work is at baseline for her. [facility] Medical History (Reviewed 11/01/22 @ 13:35 by Mindy Morrissey BORING MACHINE SET UP OPERATOR, BORING MACHINE SET UP OPERATOR-C) (HFpEF) heart failure with preserved ejection fraction Acute on chronic heart failure with preserved ejection fraction (HFpEF) Ambulates with cane Angina pectoris Arthritis Atherosclerotic heart disease of [place] coronary artery without angina pectoris Back pain Broken ribs CAD (coronary artery disease) CAD (coronary artery disease) Cardiology follow-up encounter Carotid stenosis, left Chronic anticoagulation Chronic renal failure, stage 3 (moderate) Congestive heart failure Coronary artery disease CPAP (continuous positive airway pressure) dependence Debility Diabetes Diabetes mellitus, type 2 Dietary restriction Difficulty swallowing Easy bruising Essential hypertension Fatigue Fibromyalgia GERD (gastroesophageal reflux disease) High cholesterol History of atrial fibrillation History of CHF (congestive heart failure) History of echocardiogram History of pain when walking History of renal disease History of stress test History of stroke Hypertension Hypothyroidism Insulin dependent diabetes mellitus Intertrigo halfway current use of anticoagulant Lower GI bleeding Lumbosacral radiculopathy Microalbuminuria Migraine headache New onset atrial fibrillation Non-smoker Obstructive sleep apnea Osteoarthritis of left knee Other snf (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 PAF (paroxysmal atrial fibrillation) Post-menopausal Presence of stent in coronary artery (~12/11/18) Pulmonary HTN Pure hypercholesterolemia Renal cancer Shortness of breath on exertion Stroke/cerebrovascular accident Thyroid disease Vertigo Wears hearing aid Home Medications aspirin 81 mg tablet,delayed release (Adult Low Dose Aspirin) 81 mg PO DAILY [facility] 01/01/19 [History Last Taken 07/18/22] oxybutynin chloride 10 mg tablet,extended release 24 hr 10 mg PO DAILY BLADDER 03/23/19 [History Last Taken 07/18/22] levothyroxine 50 mcg tablet 50 mcg PO DAILY thyroid 05/10/20 [History Last Taken 07/18/22] cholecalciferol (vitamin D3) 25 mcg (1,000 unit) capsule (Vitamin D3) 25 mcg PO QODAY vitamin 06/20/21 [History Last Taken 07/17/22] duloxetine 30 mg capsule,delayed release 30 mg PO DAILY 02/28/22 [History Last Taken 07/18/22] diphenhydramine 25 mg-acetaminophen 500 mg tablet (Tylenol PM Extra Strength) 1 tab PO QHS 04/18/22 [History Last Taken Unknown] insulin lispro 100 unit/mL subcutaneous pen (Humalog KwikPen (U-100) Insulin) 27 unit subcut TID PRN PRN SLIDING SCALE 05/23/22 [History Last Taken 07/18/22] insulin glargine 100 unit/mL (3 mL) subcutaneous pen (Lantus Solostar U-100 Insulin) 27 unit subcut QPM 06/06/22 [History Last Taken 07/17/22] insulin NPH isoph U-100 human 100 unit/mL (3 mL) subcutaneous pen (Novolin N FlexPen) 7 unit (0.07 mL) subcut HS #3 mL 06/20/22 [Rx Last Taken 07/17/22] atorvastatin 40 mg tablet 40 mg PO QHS cholesterol #90 tabs 08/20/22 [Rx Last Taken Unknown] furosemide 40 mg tablet 40 mg PO .COMPLEX #180 tabs 08/20/22 [Rx Last Taken Unknown] hydralazine 100 mg tablet 100 mg PO TID #270 tabs 08/20/22 [Rx Last Taken Unknown] nitroglycerin 0.4 mg sublingual tablet 0.4 mg sublingual Q5M PRN chest pain #25 tabs 08/20/22 [Rx Last Taken Unknown] ranolazine 500 mg tablet,extended release,12 hr 500 mg PO BID #180 tabs 08/20/22 [Rx Last Taken Unknown] warfarin 4 mg tablet 4 mg PO .COMPLEX #180 tabs 08/20/22 [Rx Last Taken Unknown] empagliflozin 25 mg tablet (Jardiance) 25 mg PO DAILY #30 tabs 08/29/22 [Rx Last Taken Unknown] gabapentin 300 mg capsule 600 mg PO TID nerve pain 11/01/22 [History Last Taken Unknown] isosorbide mononitrate 60 mg tablet,extended release 24 hr 60 mg PO BID #180 tabs 11/01/22 [Rx Last Taken Unknown] metoprolol tartrate 50 mg tablet 50 mg PO BID #180 tabs 11/04/22 [Rx Last Taken Unknown] flash glucose scanning reader ([employer] [place]) #1 ea 11/08/22 [Rx Last Taken Unknown] Allergy/AdvReac Type Severity Reaction Status Date / Time latex Allergy Rash Verified 11/20/22 12:27 adhesive tape AdvReac Rash Verified 11/20/22 12:27 ticagrelor [From Brilinta] AdvReac Shortness Verified 11/20/22 12:27 of breath Family History Father Heart disease Mother Breast cancer Diabetes Heart disease Surgical History (Reviewed 11/01/22 @ 13:35 by Mindy Morrissey BORING MACHINE SET UP OPERATOR, BORING MACHINE SET UP OPERATOR-C) H/O hemorrhoidectomy History of appendectomy History of arthroscopic knee surgery History of back surgery History of cardiac catheterization History of cholecystectomy History of coronary artery bypass graft x 3 (~04/08/16) History of hysterectomy History of knee replacement procedure of right knee History of right and left heart catheterization (LHC) (~08/10/19) History of right inguinal hernia repair Hx of CABG Hx of hand surgery Postlaminectomy syndrome of lumbar region Presence of coronary angioplasty implant and graft (~12/11/18) Social History (Updated 11/20/22 @ 12:35 by Rachel Strickland) household members: spouse housing: house Smoking Status: Never smoker alcohol intake: never substance use type: does not use caffeine: No ROS Constitutional Constitutional: Denies chills, fatigue, fever(s) or malaise Eyes Eyes: Denies blurry vision ENT HEENT: Denies headache(s) or nasal discharge Cardiovascular Cardiovascular: Reports chest pain; Denies dyspnea on exertion or syncope Respiratory/Chest Respiratory/Chest: Reports shortness of breath with exertion; Denies cough or shortness of breath at rest Gastrointestinal Gastrointestinal: Denies constipation, diarrhea, nausea or vomiting Genitourinary Genitourinary: Denies dysuria Neurologic Neurologic: Denies focal weakness, numbness or tremor(s) Psychiatric Psychiatric: Denies anxiety or depression Vital Signs Vital Signs Vital Signs: 11/20/22 12:26 11/20/22 12:27 11/20/22 12:32 Temperature 97.1 F L Temperature Source Temporal Pulse Rate 49 L Respiratory Rate 14 Respiratory Effort Normal Non-Labored Blood Pressure 143/60 H Blood Pressure Mean 87 Pulse Ox 95 Oxygen Delivery Method Room Air 11/20/22 12:52 11/20/22 14:37 11/20/22 14:45 Temperature Temperature Source Pulse Rate 52 L 53 L Respiratory Rate 16 16 Respiratory Effort Blood Pressure 153/66 H 140/88 H Blood Pressure Mean 95 105 Pulse Ox 92 94 92 Oxygen Delivery Method Room Air Room Air Room Air 11/20/22 15:00 11/20/22 16:23 11/20/22 18:11 Temperature Temperature Source Pulse Rate 58 L 50 L 50 L Respiratory Rate 16 13 15 Respiratory Effort Blood Pressure 188/82 H 124/82 H 151/66 H Blood Pressure Mean 117 96 94 Pulse Ox 92 90 92 Oxygen Delivery Method Room Air Room Air Weight Weight: 158 lb Body Mass Index (BMI) 28.0 Physical Exam Const alert, oriented x3 and no apparent distress General Appearance: cooperative HEENT normocephalic and moist oral mucous membranes Eyes PERRL, EOMs intact bilaterally and conjunctivae normal Neck supple and no JVD Resp normal respiratory effort, no retractions, no use of accessory muscles and clear to auscultation bilaterally Resp Narrative: Diminished Auscultation: Negative for crackles, rales, rhonchi or wheezes Cardio regular rate, regular rhythm, S1 normal heart sound, S2 normal heart sound and no murmurs Cardio Narrative: Chest pain on palpation different from pain that brought her to the ER GI soft to palpation, non-tender and non-distended; Negative for hepatosplenomegaly Extremity no clubbing, cyanosis or edema Skin no rashes or lesions noted Neuro no focal motor deficits and no sensory deficits noted Psych affect normal Appearance: appropriate Results Lab / Micro Data 11/20/22 12:48 11/20/22 12:48 Labs: Laboratory Results - last 24 hr 11/20/22 12:48: WBC 9.7, RBC 4.45, Hgb 13.2, Hct 42.4, MCV 95.3, MCH 29.7, MCHC 31.1 L, RDW Std Deviation 49.5 H, RDW Coeff of Laquita 14.2, Plt Count 281, MPV 11.7, Immature Gran % (Auto) 0.400, Neut % (Auto) 69.0, Lymph % (Auto) 19.3, Collier % (Auto) 8.3, Eos % (Auto) 2.3, Baso % (Auto) 0.7, Absolute Neuts (auto) 6.7, Absolute Lymphs (auto) 1.88, Nucleated RBC % 0, Differential Comment SCANNED, PT 20.6 H, INR 1.8, Sodium 135 L, Potassium 3.8, Chloride 101, Carbon Dioxide 25.0, Anion Gap 9, BUN 44 H, Creatinine 2.34 H, Estim Creat Clear Calc 14.54, Est GFR (MDRD) Af Amer 25 L, Est GFR (MDRD) Non-Af 21 L, BUN/Creatinine Ratio 18.8, Glucose 164 H, Calcium 9.0, Troponin I High Sens 12 11/20/22 14:25: D-Dimer Quant (PE/DVT) 1.94 H* 11/20/22 15:15: Troponin I High Sens 13 Radiology Impression Chest X-Ray 11/20/22 13:10 IMPRESSION: No acute cardiopulmonary abnormality. No interval change Electronically Signed: Tonny Breen MD at 13:25 EDT Reading Location ID and State: [facility] / [place] Tel , Service support , Assessment & Plan Assessment/Plan (1) Chest pain: PLAN: Plan 1. Chest pain/HTN/HLD/paroxysmal A-fib/CAD status post CABG and stent ? Her troponins were unremarkable, her initial troponin was 12 and her delta troponin was 13, will not pursue stress test at this time she can follow-up with her watch train assembler ? Because of her chest pain and her elevated D-dimer and her ambulatory hypoxia, we will proceed with a VQ scan though if a PE is discovered we will not make much difference as we will just continue with her Coumadin as she cannot afford Eliquis or Xarelto ? We will have an ambulatory pulse ox in the morning and she will likely need oxygen on discharge and would likely benefit from an outpatient pulmonology evaluation ? Her blood pressure is stable, will resume all of her home blood pressure medications continue with aspirin as well as her statin ? We will continue with her Coumadin, her INR today was 1.8 ? She had an echo on 07/19/2022 with a normal EF and pulmonary artery systolic pressure of 25 mmHg, and stage I diastolic dysfunction ? Her last stress test was on 07/17/2021 which was normal and her last heart cath was 12/11/2018 2. IDDM 2 ? Can resume her home blood sugar medications ? Accu-Cheks ACHS, will monitor for now and if necessary can add sliding scale insulin ? We will place on a calorie controlled cardiac diet ? We will hold her Jardiance 3. Hypothyroidism ? Stable ? Continue with Synthroid DVT: Coumadin 75 minutes was spent on documentation, chart review, [id number] patient evaluation as well as discussion with colleagues Charges/Coding Visit Charges Inpatient E&M: 38119 Init Hosp L3
[2022-11-20] MEDS: hydrALAZINE 50 MG Tablet 100 MG PO (20:09)
[2022-11-20] MEDS: Atorvastatin Calcium 40 MG Tablet PO (20:10)
[2022-11-20] MEDS: Gabapentin 600 MG Tablet PO (20:10)
[2022-11-20] MEDS: Ranolazine 500 MG Tablet PO (20:10)
[2022-11-20] MEDS: Insulin Glargine-YFGN 100 UNIT/ML Pen 27 UNIT SC (20:18)
[2022-11-20] MEDS: Isosorbide Mononitrate 60 MG Tablet PO (20:18)
[2022-11-20 20:29] LABS: Bedside Glucose 339 mg/dL (74-106)
--- NOTE | 2022-11-20 21:16 | EKG12_ITS ---
Test Reason : CP Blood Pressure : / mmHG Vent. Rate : 053 BPM Atrial Rate : 053 BPM P-R Int : 196 ms QRS Dur : 080 ms QT Int : 478 ms P-R-T Axes : 001 -06 026 degrees QTc Int : 448 ms Sinus bradycardia Inferior infarct , age undetermined Abnormal ECG When compared with ECG of 20-NOV-2022 12:33, MANUAL COMPARISON REQUIRED, DATA IS UNCONFIRMED Confirmed by LAURA BENITEZ, CARRIE ([id number]), supervising film or videotape editor VICTORIA GOMEZ ([id number]) on 11/21/2022 11:08:54 AM Referred By: Confirmed By:CARRIE SANCHEZ MD
[2022-11-21] VITALS (9 sets, daily range): BP systolic 122–151; BP diastolic 54–73; PULSE 55–95; RESP 14–18; TEMP 36.2–36.6; O2SAT 2–93; BMI 28.4
[2022-11-21] MEDS: Levothyroxine 50 MCG Tablet PO (05:35)
[2022-11-21] MEDS: Gabapentin 600 MG Tablet PO ×2 (05:35→14:11)
[2022-11-21] MEDS: hydrALAZINE 50 MG Tablet 100 MG PO ×2 (05:35→14:11)
--- NOTE | 2022-11-21 05:55 | NM_ITS ---
CLINICAL: 87-year-old female with history of chest discomfort. VENTILATION-PERFUSION LUNG SCINTIGRAPHY COMPARISON: Plain film chest radiograph report 11/20/2022, previous ventilation-perfusion lung scintigraphy report 04/22/2016 FINDINGS: The patient was administered 48.9 mCi 99m Tc DTPA aerosol. The aerosol ventilation study demonstrates minimally heterogeneous ventilation identified throughout the bilateral lung mcgee without corresponding radiographic changes defined on plain film chest x-ray dated 11/20/2022. Central clumping of the aerosol is noted in the bilateral hemithorax. Following the intravenous administration of 5.7 mCi of 99m Tc MAA the pulmonary perfusion study reveals relatively uniform perfusion throughout both lung mcgee. There are no segmental or subsegmental perfusion defects identified. There are no ventilation-perfusion mismatches observed. NM/Lung Scan Vent/Perf IMPRESSION: 1. NORMAL 99m Tc MAA pulmonary perfusion imaging examination, according to PIOPED II interpretive criteria. (Sotsman et al, Radiology 246: 941, 2008 Sotsnate et al, J Nucl Med 49: 1741, 2008). 2. Central clumping of the aerosol may be secondary to obstructive airway mechanics and or clinical tachypnea. 3. Overall compared to the previous perfusion lung scintigraphy study dated 04/22/2016, there is no definitive significant interval change. Electronically Signed: Gilberto Rhodes DO at 12:43 EDT ,
[2022-11-21 06:18] LABS: Absolute Lymphocyte Count 2.38 X10^3/uL (0.83-4.51); Absolute Neutrophil Count 7.5 X10^3/uL (2.0-7.7); Basophil# 0.06 X10^3/uL; Basophil% 0.5 % (0-1); Eosinophil# 0.37 X10^3/uL; Eosinophils% 3.3 % (0-5); Hematocrit 38.5 % (37-47); Hemoglobin 12.2 g/dL (12.0-15.0); Lymphocyte # 2.38 X10^3/ul (0.83-4.51); Mean Corp Hgb Conc 31.7 g/dL (32-36); Mean Corpuscular Hgb 30.2 pg (27.0-32.0); Mean Corpuscular Volume 95.3 fL (81-99); Mean Platelet Vol. 11.4 fl (6.2-12.0); Monocyte# 0.98 X10^3/uL; Monocyte% 8.6 % (0-10); NRBC Flagged by Analyzer 0 % (0-5); Neutrophil # 7.54 X10^3/uL (2.7-7.7); Neutrophil % 66.3 % (47-70); Platelet Count 253 K/mm3 (150-450); RBC Distribution Width CV 14.1 % (11.6-14.6); RBC Distribution Width SD 49.2 fl (35.1-43.9); Red Blood Count 4.04 M/mm3 (4.2-5.4); White Blood Count 11.4 K/mm3 (4.4-11.0)
[2022-11-21 06:44] LABS: Anion Gap 9 (5-15); BUN 38 mg/dL (7-18); BUN/Creat Ratio 16.6 RATIO (10-20); Calcium,Total 8.8 mg/dL (8.5-10.1); Chloride 101 mmol/L (98-107); Creatinine, Serum 2.29 mg/dL (0.55-1.02); EST Glomerular Filtration Rate 22 mL/min (>60); Est Glom Filt Rate - Afr Amer 26 mL/min (>60); Estimated Creatinine Clearance 14.86 ml/min; Glucose 219 mg/dL (74-106); Potassium 3.7 mmol/L (3.5-5.1); Sodium Level 134 mmol/L (136-145)
[2022-11-21 08:45] LABS: Allen Test Positive; Base Excess 0 mmol/L (-2 to +2); Bicarbonate 25.1 mmol/L (22-26); Blood Gas Specimen Type ART; Mode Not entered; O2 Delivery Device Room Air; PO2 54 mmHG (75-100); SITE L Radial; SO2 88 % (95-99); Total Carbon Dioxide 26 mmol/L; pCO2 40.9 mmHg (35-45)
[2022-11-21 09:15] LABS: International Normalized Ratio 1.8; Prothrombin Time (Protime)PT. 21.3 SECONDS (11.7-14.9)
[2022-11-21] MEDS: Isosorbide Mononitrate 60 MG Tablet PO (10:59)
[2022-11-21] MEDS: Metoprolol Tartrate 50 MG Tablet PO (10:59)
[2022-11-21] MEDS: Furosemide 40 MG Tablet PO (11:00)
[2022-11-21] MEDS: DULoxetine Hcl 30 MG Capsule PO (11:00)
[2022-11-21] MEDS: Aspirin E.C. 81 MG Tablet PO (11:00)
[2022-11-21] MEDS: Ranolazine 500 MG Tablet PO (11:01)
[2022-11-21] MEDS: Insulin Lispro 100 UNIT/ML INSULN.PEN SC (11:12)
[2022-11-21 11:23] LABS: Bedside Glucose 485 mg/dL (74-106)
[2022-11-21 11:30] LABS: BNP,B-Type NATRIURETIC PEPTIDE 75.4 pg/mL (0-100)
--- NOTE | 2022-11-21 12:58 | PCM.DC.SUM ---
Providers Date of Admission: 11/20/22 Date of Discharge: 11/21/22 Primary Care Physician: Dr. Jose J Lezama DO Reason For Visit: CHEST PAIN Diagnosis Discharge Diagnosis (1) Chest pain: Status: Acute Code(s): R07.9 - Chest pain, unspecified Medications at Discharge Home Medications aspirin 81 mg tablet,delayed release (Adult Low Dose Aspirin) 81 mg PO DAILY heart health 01/01/19 oxybutynin chloride 10 mg tablet,extended release 24 hr 10 mg PO DAILY BLADDER 03/23/19 levothyroxine 50 mcg tablet 50 mcg PO DAILY thyroid 05/10/20 cholecalciferol (vitamin D3) 25 mcg (1,000 unit) capsule (Vitamin D3) 25 mcg PO QODAY vitamin 06/20/21 duloxetine 30 mg capsule,delayed release 30 mg PO DAILY 02/28/22 diphenhydramine 25 mg-acetaminophen 500 mg tablet (Tylenol PM Extra Strength) 1 tab PO QHS 04/18/22 insulin lispro 100 unit/mL subcutaneous pen (Humalog KwikPen (U-100) Insulin) 27 unit subcut TID PRN PRN SLIDING SCALE 05/23/22 insulin glargine 100 unit/mL (3 mL) subcutaneous pen (Lantus Solostar U-100 Insulin) 27 unit subcut QPM 06/06/22 insulin NPH isoph U-100 human 100 unit/mL (3 mL) subcutaneous pen (Novolin N FlexPen) 7 unit (0.07 mL) subcut HS #3 mL 06/20/22 atorvastatin 40 mg tablet 40 mg PO QHS cholesterol #90 tabs 08/20/22 furosemide 40 mg tablet 40 mg PO .COMPLEX #180 tabs 08/20/22 hydralazine 100 mg tablet 100 mg PO TID #270 tabs 08/20/22 nitroglycerin 0.4 mg sublingual tablet 0.4 mg sublingual Q5M PRN chest pain #25 tabs 08/20/22 ranolazine 500 mg tablet,extended release,12 hr 500 mg PO BID #180 tabs 08/20/22 warfarin 4 mg tablet 4 mg PO .COMPLEX #180 tabs 08/20/22 empagliflozin 25 mg tablet (Jardiance) 25 mg PO DAILY #30 tabs 08/29/22 gabapentin 300 mg capsule 600 mg PO TID nerve pain 11/01/22 isosorbide mononitrate 60 mg tablet,extended release 24 hr 60 mg PO BID #180 tabs 11/01/22 metoprolol tartrate 50 mg tablet 50 mg PO BID #180 tabs 11/04/22 flash glucose scanning reader ([employer] Jong [facility] [place]) #1 ea 11/08/22 Hospital Course Procedures EKG and - (V/Q/chest x-ray) Summary of Care Provided Minutes Spent on Discharge: 37 Hospital Course: Mrs. Rosa is an 87-year-old white female who presented to the emergency department with worsening exertional dyspnea and right-sided chest pain that occurred on the day of presentation. Patient has been having worsening exertional shortness of breath over time but she developed acute right-sided chest pain that had resolved by the time she was evaluated by the hospitalist so she came to the emergency department for further evaluation. Vital signs were stable however oxygen saturations appeared to be between 90 and 92% on room air. She was placed on 2 L and her sats improved to 96%. Her CBC was unremarkable. She is chronically anticoagulated with Coumadin and her INR was 1.8. She is unable to afford DOACs so she is maintained on Coumadin. Her chemistry panel showed mild hyponatremia with a sodium of 135 which appears to be stable, and elevated BUN and creatinine at 44 and 2.34 which has been stable as of recent and hyperglycemia with a glucose of 164. A D-dimer was obtained and found to be elevated at 1.94. She is not a candidate for contrasted CT due to her renal function abnormalities so request for admission was made for VQ scan. I was able to review her records and it appears that in July 2021 she had a negative stress test and she had a cardiac catheterization done within the last 5 years that showed a normal EF and stable coronary disease with a right heart cath being performed showing a pulmonary capillary wedge pressure of 8 and pulmonary artery pressures of 34/9. She has had PFTs done in 2019 that showed mild restrictive disease with a normal DLCO and a normal TSH that was performed on 10/30 to 09/29/2022. An echocardiogram was done recently as well and showed an EF of 65% with stage I diastolic dysfunction and a right ventricular systolic pressure of 25 mmHg. We obtained a VQ scan which showed minimally heterogeneous ventilation throughout bilateral lung mcgee and central clumping of the aerosols and bilateral hemithorax with uniform perfusion per out and no segmental or subsegmental defects identified. With her associated renal dysfunction and hypoxia with exertion as she did desat into the 80s with exertion I obtained ANCA's. I also obtained a room air blood gas that showed an AA gradient of 44.6 with an age corrected AA gradient considered normal for her at 25.3 verifying she does have an elevated AA gradient. I also feels imperative she followed up with pulmonary medicine discharge and I discussed the case with Dr. Lawson from pulmonary medicine prior to discharge. With her elevated AA gradient she will need an outpatient echocardiogram with a bubble study and a noncontrasted CT of her chest. On exam she has diffuse fine crackles consistent with pulmonary fibrosis. I did obtain a BNP to rule out any heart failure and this was normal. She was able to be discharged home on 11/21/2022. We did resting and ambulatory pulse ox and she will require 2 L of oxygen with exertion. I have asked that she follow-up with her primary care physician within next 2 weeks and we have made a follow-up appointment for her to be seen with pulmonary medicine after discharge. Discharge diagnoses: Exertional dyspnea Elevated D-dimer with normal VQ scan Coumadin induced coagulopathy DM-2 Hypothyroidism Hypertension Vitamin D deficiency next lipidemia CAD CKD stage IV HFpEF-chronic Osteoarthrosis Carotid artery stenosis History of stroke [place] Paroxysmal atrial fibrillation History of renal carcinoma Physical Exam Const alert, oriented x3, no apparent distress, no limitations and well nourished Constitutional Narrative: , Elderly, white female, sitting up in bed, at bedside, patient appears comfortable and nontoxic, very pleasant General Appearance: cooperative, comfortable, well kempt and well developed Orientation / Consciousness: awake, oriented to person, oriented to place and oriented to time Exam Limitations: no limitations Nutritional Appearance: overweight HEENT normocephalic, head/scalp atraumatic and moist oral mucous membranes HEENT Narrative: Dentition is fair for age, Mallampati is 2, no thrush, mild hearing loss Eyes PERRL, EOMs intact bilaterally and conjunctivae normal Eyes Narrative: No scleral icterus Neck no lymphadenopathy and supple Neck Narrative: Trachea midline, no thyroid enlargement Resp normal respiratory effort, no retractions and no use of accessory muscles Resp Narrative: Diffuse fine scattered Velcro type sounding crackles bilaterally Auscultation: crackles; Negative for rhonchi or wheezes Cardio regular rate, regular rhythm, S1 normal heart sound, S2 normal heart sound, no murmurs, no rub, no gallops and no clicks GI normal to inspection, nondistended, normoactive bowel sounds, soft to palpation and non-tender Extremity no clubbing, cyanosis or edema Extremity Narrative: 2+ pedal pulses, decreased lean muscle mass Skin no rashes or lesions noted, no wounds, skin turgor normal and no jaundice Skin Narrative: Skin is thin Neuro oriented x3, CN's II-XII intact bilaterally, moves all extremities and no focal motor deficits Neuro Narrative: Very mild generalized weakness with proximal musculature being weaker than distal 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, mild bilateral distal neuropathy Speech: speech normal Psych affect normal Psych Narrative: Extremely pleasant, Weight / BMI Weight Weight: 72.8 kg Body Mass Index (BMI) 28.4 ABG / Lab / Microbiology Data 11/21/22 05:35 11/21/22 05:35 Laboratory: Laboratory Results - last 24 hr 11/20/22 12:48: WBC 9.7, RBC 4.45, Hgb 13.2, Hct 42.4, MCV 95.3, MCH 29.7, MCHC 31.1 L, RDW Std Deviation 49.5 H, RDW Coeff of Laquita 14.2, Plt Count 281, MPV 11.7, Immature Gran % (Auto) 0.400, Neut % (Auto) 69.0, Lymph % (Auto) 19.3, [place] % (Auto) 8.3, Eos % (Auto) 2.3, Baso % (Auto) 0.7, Absolute Neuts (auto) 6.7, Absolute Lymphs (auto) 1.88, Nucleated RBC % 0, Differential Comment SCANNED, PT 20.6 H, INR 1.8, Sodium 135 L, Potassium 3.8, Chloride 101, Carbon Dioxide 25.0, Anion Gap 9, BUN 44 H, Creatinine 2.34 H, Estim Creat Clear Calc 14.54, Est GFR (MDRD) Af Amer 25 L, Est GFR (MDRD) Non-Af 21 L, BUN/Creatinine Ratio 18.8, Glucose 164 H, Calcium 9.0, Troponin I High Sens 12 11/20/22 14:25: D-Dimer Quant (PE/DVT) 1.94 H* 11/20/22 15:15: Troponin I High Sens 13 11/20/22 20:08: POC Glucose 339 H 11/21/22 05:35: WBC 11.4 H, RBC 4.04 L, Hgb 12.2, Hct 38.5, MCV 95.3, MCH 30.2, MCHC 31.7 L, RDW Std Deviation 49.2 H, RDW Coeff of Laquita 14.1, Plt Count 253, MPV 11.4, Immature Gran % (Auto) 0.300, Neut % (Auto) 66.3, Lymph % (Auto) 21.0, [place] % (Auto) 8.6, Eos % (Auto) 3.3, Baso % (Auto) 0.5, Absolute Neuts (auto) 7.5, Absolute Lymphs (auto) 2.38, Nucleated RBC % 0, Sodium 134 L, Potassium 3.7, Chloride 101, Carbon Dioxide 24.0, Anion Gap 9, BUN 38 H, Creatinine 2.29 H, Estim Creat Clear Calc 14.86, Est GFR (MDRD) Af Amer 26 L, Est GFR (MDRD) Non-Af 22 L, BUN/Creatinine Ratio 16.6, Glucose 219 H, Calcium 8.8, B-Natriuretic Peptide 75.4 11/21/22 08:48: PT 21.3 H, INR 1.8 11/21/22 10:58: POC Glucose 485 H* Microbiology: Microbiology 11/21/22 08:25 Mucosa - Nose Respiratory Panel (PCR) - Final ABG: ABG 11/21/22 08:41 Specimen Type ART Sample Site L Radial pH 7.40 Bicarbonate Actual 25.1 Total CO2 26 Base Excess 0 O2 Saturation 88 L ABG pCO2 40.9 ABG pO2 54 L Fili Test Positive O2 Delivery Device Room Air Vent Mode Not entered Radiography Diagnostic Testing: Radiology Impression Chest X-Ray 11/20/22 13:10 IMPRESSION: No acute cardiopulmonary abnormality. No interval change Electronically Signed: Tonny Breen MD at 13:25 EDT , Lung Scan-VQ NM 11/21/22 05:55 IMPRESSION: 1. NORMAL 99m Tc MAA pulmonary perfusion imaging examination, according to PIOPED II interpretive criteria. (Sokenn et al, Radiology 246: 941, 2008 Sokenn et al, J Nucl Med 49: 1741, 2008). 2. Central clumping of the aerosol may be secondary to obstructive airway mechanics and or clinical tachypnea. 3. Overall compared to the previous perfusion lung scintigraphy study dated 04/22/2016, there is no definitive significant interval change. Electronically Signed: Gilberto Rhodes DO at 12:43 EDT , D/C Instructions Discharge Diet: Low fat / Low cholesterol and 1800 Calorie Control Diet Discharge Activity: Return to Normal Activity Meaningful Use Info Meaningful Use Diagnoses (Choose all that apply): None applicable Discharge Plan Admission Admit Date/Time: 11/20/22 18:23 Primary Reason for Your Visit: Shortness of Breath/Chest Pain Attending Provider: Rosa Andersen Primary Care Provider: Jose J Lezama Consulting Providers: Bernardino Briceno Instructions Additional Instructions / Restrictions: 1. Please wear oxygen with exertion (this includes up walking around the house or doing housework) at 2 L 2. Please follow-up at the pulmonary doctor/lung doctor as scheduled below 3. Please have your INR checked for your Coumadin level as previously directed Discharge Orders/Prescriptions Prescriptions: Continued aspirin [Adult Low Dose Aspirin] 81 mg tablet,delayed release (DR/EC) 81 mg PO DAILY gabapentin 300 mg capsule 600 mg PO TID cholecalciferol (vitamin D3) [Vitamin D3] 25 mcg (1,000 unit) capsule 25 mcg PO QODAY levothyroxine 50 mcg tablet 50 mcg PO DAILY duloxetine 30 mg capsule,delayed release(DR/EC) 30 mg PO DAILY diphenhydramine-acetaminophen [Tylenol PM Extra Strength] 25-500 mg tablet 1 tab PO QHS insulin glargine [Lantus Solostar U-100 Insulin] 100 unit/mL (3 mL) insulin pen 27 unit subcut QPM Novolin N FlexPen 100 unit/mL (3 mL) insulin pen 7 unit subcut HS Qty: 3 5RF Jardiance 25 mg tablet 25 mg PO DAILY Qty: 30 5RF isosorbide mononitrate 60 mg tablet extended release 24 hr 60 mg PO BID Qty: 180 3RF oxybutynin chloride 10 MG tablet extended release 24hr 10 mg PO DAILY insulin lispro [Humalog KwikPen Insulin] 100 unit/mL insulin pen 27 unit subcut TID PRN PRN (Reason: SLIDING SCALE) atorvastatin 40 mg tablet 40 mg PO QHS Qty: 90 3RF furosemide 40 mg tablet 40 mg PO .COMPLEX Qty: 180 3RF Rx Instructions: 40 mg orally daily, may take 1 extra pill daily for weight gain, swelling, or shortness of breath; hydralazine 100 mg tablet 100 mg PO TID Qty: 270 3RF nitroglycerin 0.4 mg tablet, sublingual 0.4 mg SUBLINGUAL Q5M PRN (Reason: chest pain) Qty: 25 3RF Rx Instructions: do not exceed 3 doses per episode ranolazine 500 mg tablet extended release 12 hr 500 mg PO BID Qty: 180 3RF warfarin 4 mg tablet 4 mg PO .COMPLEX Qty: 180 3RF Protocol: Dose Management Condition: Friday Dose/Route: 6 mg Instruction: 1.5 x 4 mg tablets Condition: Friday Dose/Route: 4 mg Instruction: 1 x 4 mg tablet Condition: Friday Dose/Route: 4 mg Instruction: 1 x 4 mg tablet Condition: Friday Dose/Route: 4 mg Instruction: 1 x 4 mg tablet Condition: Dose/Route: 4 mg Instruction: 1 x 4 mg tablet Condition: Friday Dose/Route: 4 mg Instruction: 1 x 4 mg tablet Condition: Friday Dose/Route: 6 mg Instruction: 1.5 x 4 mg tablets Protocol Text: Adjustment Start Date: Friday08/20/22 INR Value: 2.5 INR Date: 08/05/22 Recheck Date: 08/26/22 Rx Instructions: 4 mg orally daily Friday through Friday ; and take 1and a half tablets (6mg) on Sat and Sun; or as directed; metoprolol tartrate 50 mg tablet 50 mg PO BID Qty: 180 3RF (DME) [employer] Jong [facility] [place] Misc See Rx Instructions .Route Qty: 1 0RF Rx Instructions: As directed Referrals / Follow Up: Jose J Lezama DO [Primary Care Provider] - Within 2 Weeks Kacie Arthur LUSTERER, LUSTERER-C [Med Staff - Adv Practice Prof] - 12/16/22 11:15 am Disposition Disposition (needs filled in before D/C Order can be placed): Home, Self Care Charges/Coding Visit Charges Inpatient E&M: 44447 Disch Hosp >30min
--- NOTE | 2022-11-21 14:15 | CASEMGMT ---
RUTHIE PINZON updated that patient will need home oxygen at discharge. RUTHIE CM in to discuss needs at discharge. Patient and prefer [facility]. Per , they have a pulse ox at home. Patient and deny further needs at discharge. Patient and had no further questions or concerns. Script received and referral made to [facility] via [facility]. RUTHIE PINZON arranged for portable tank to be delivered to patient's room.
[2022-11-25 14:08] LABS: Cytoplasmic Ab (C-ANCA) <1:20 titer (Neg:<1:20); Perinuclear Ab (P-ANCA) <1:20 titer (Neg:<1:20)
== END 2022-11-21 13:00 | disposition home or self-care (01) ==
LOC: ED 15:07 → PCU 18:32
PROVIDERS: Admitting Provider Family Medicine; Emergency Provider Emergency Medicine; PCP Family Medicine; Visit Provider Internal Medicine
DX: R07.89 Other chest pain (principal); I50.32 Chronic diastolic (congestive) heart failure; I13.0 Hypertensive heart and chronic kidney disease with heart failure and stage 1 through stage 4 chronic kidney disease, or unspecified chronic kidney disease; E11.65 Type 2 diabetes mellitus with hyperglycemia; E11.22 Type 2 diabetes mellitus with diabetic chronic kidney disease; N18.4 Chronic kidney disease, stage 4 (severe); I48.0 Paroxysmal atrial fibrillation; Z79.4 Long term (current) use of insulin; M79.7 Fibromyalgia; G47.33 Obstructive sleep apnea (adult) (pediatric); R09.02 Hypoxemia; E03.9 Hypothyroidism, unspecified; M19.90 Unspecified osteoarthritis, unspecified site; E87.1 Hypo-osmolality and hyponatremia; Z79.01 Long term (current) use of anticoagulants; E55.9 Vitamin D deficiency, unspecified; Z79.82 Long term (current) use of aspirin; E78.00 Pure hypercholesterolemia, unspecified; I25.10 Atherosclerotic heart disease of native coronary artery without angina pectoris; Z79.899 Other long term (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; Z95.1 Presence of aortocoronary bypass graft; K21.9 Gastro-esophageal reflux disease without esophagitis; Z79.890 Hormone replacement therapy
CPT/HCPCS: 36415; 36600; 71045; 78582; 80048; 82803; 82962; 83880; 84484; 85025; 85379; 85610; 86256; 87633; 93005; 94668; 96374; 96375; 99221; 99284; A9540; A9567; A4216; G0378; J2405

== ENCOUNTER 2022-11-30 13:21 | Emergency (ER) | payer MEDICARE, SELFPAY ==
[2021-06-18 13:40] VITALS: BMI 28.7
[2022-11-30 13:22] VITALS: BP 185/80; PULSE 67; RESP 16; TEMP 36.8; O2SAT 96; BMI 29.7
[2022-11-30 13:36] VITALS: BMI 27.6
--- NOTE | 2022-11-30 13:39 | RAD_ITS ---
INDICATION: cough EXAMINATION/TECHNIQUE: X-RAY - XR Chest 2 Views COMPARISON: November 20, 2022 FINDINGS: LINES/DEVICES: None. LUNGS: No consolidation, edema or effusion. No pneumothorax. MEDIASTINUM AND CARDIOVASCULAR STRUCTURES: Cardiac silhouette not enlarged. Central airways and mediastinal contour are unremarkable. Status post sternotomy. BONES AND SOFT TISSUES: Unremarkable. Spinal stimulator. Stable exam. RAD/Chest PA and Lateral IMPRESSION: No radiographic evidence of acute cardiopulmonary disease. Electronically Signed: Jose J Varner MD at 14:20 EDT ,
--- NOTE | 2022-11-30 13:39 | EKG12_ITS ---
Test Reason : short of breath Blood Pressure : / mmHG Vent. Rate : 063 BPM Atrial Rate : 063 BPM P-R Int : 208 ms QRS Dur : 066 ms QT Int : 436 ms P-R-T Axes : 037 -01 185 degrees QTc Int : 446 ms Normal sinus rhythm Inferior infarct (cited on or before 23-JUL-2022) Abnormal ECG Confirmed by ARVIND BENITEZ, SARAH ([id number]), health editor SAMI FORTUNE ([id number]) on 12/03/2022 12:39:33 PM Referred By: [place] Confirmed By:ESTELA SAMUELS MD
--- NOTE | 2022-11-30 13:40 | EX.ED.DYSGE1 ---
HPI History of Present Illness Chief Complaint: General Illness Informant: patient and spouse/S.O. Onset/Context/Timing Onset: Today Context: Gradual Onset Current Severity: Mild Maximum Severity: Mild Narrative Narrative: 87-year-old female extensive past medical history of CHF, CAD, A-fib on Coumadin and diabetic. Has had a bad cold for approximately a week. feels that she was little confused today. Denies any falls or trauma. Denies any vomiting or diarrhea. No dysuria. Has had a nonproductive cough. Patient did have an overnight hospitalization a week ago and was discharged home on home oxygen. Prior similar symptoms: No Recent Illness/Hospitalization: Yes [facility] Medical History (HFpEF) heart failure with preserved ejection fraction Acute on chronic heart failure with preserved ejection fraction (HFpEF) Ambulates with cane Angina pectoris Arthritis Atherosclerotic heart disease of [place] coronary artery without angina pectoris Atrial fibrillation Back pain Broken ribs CAD (coronary artery disease) CAD (coronary artery disease) Cardiology follow-up encounter Carotid stenosis, left Chest pain Chronic anticoagulation Chronic renal failure, stage 3 (moderate) Congestive heart failure Coronary artery disease CPAP (continuous positive airway pressure) dependence Debility Diabetes Diabetes mellitus, type 2 Dietary restriction Difficulty swallowing Easy bruising Essential hypertension Fatigue Fibromyalgia GERD (gastroesophageal reflux disease) High cholesterol History of atrial fibrillation History of CHF (congestive heart failure) History of coronary artery disease History of echocardiogram History of pain when walking History of renal disease History of stress test History of stroke Hypertension Hypertension Hypothyroidism Insulin dependent diabetes mellitus Intertrigo Kidney disease [facility] current use of anticoagulant Lower GI bleeding Lumbosacral radiculopathy Microalbuminuria Migraine headache New onset atrial fibrillation Non-smoker Obstructive sleep apnea Osteoarthritis of left knee 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 PAF (paroxysmal atrial fibrillation) Post-menopausal Presence of stent in coronary artery (~12/11/18) Pulmonary HTN Pure hypercholesterolemia Renal cancer Shortness of breath on exertion Stroke/cerebrovascular accident Thyroid disease Vertigo Wears hearing aid Home Medications aspirin 81 mg tablet,delayed release (Adult Low Dose Aspirin) 81 mg PO DAILY heart health 01/01/19 [History Last Taken 07/18/22] oxybutynin chloride 10 mg tablet,extended release 24 hr 10 mg PO DAILY BLADDER 03/23/19 [History Last Taken 07/18/22] levothyroxine 50 mcg tablet 50 mcg PO DAILY thyroid 05/10/20 [History Last Taken 07/18/22] cholecalciferol (vitamin D3) 25 mcg (1,000 unit) capsule (Vitamin D3) 25 mcg PO QODAY vitamin 06/20/21 [History Last Taken 07/17/22] duloxetine 30 mg capsule,delayed release 30 mg PO DAILY 02/28/22 [History Last Taken 07/18/22] diphenhydramine 25 mg-acetaminophen 500 mg tablet (Tylenol PM Extra Strength) 1 tab PO QHS 04/18/22 [History Last Taken Unknown] insulin lispro 100 unit/mL subcutaneous pen (Humalog KwikPen (U-100) Insulin) 27 unit subcut TID PRN PRN SLIDING SCALE 05/23/22 [History Last Taken 07/18/22] insulin glargine 100 unit/mL (3 mL) subcutaneous pen (Lantus Solostar U-100 Insulin) 27 unit subcut QPM 06/06/22 [History Last Taken 07/17/22] insulin NPH isoph U-100 human 100 unit/mL (3 mL) subcutaneous pen (Novolin N FlexPen) 7 unit (0.07 mL) subcut HS #3 mL 06/20/22 [Rx Last Taken 07/17/22] atorvastatin 40 mg tablet 40 mg PO QHS cholesterol #90 tabs 08/20/22 [Rx Last Taken Unknown] furosemide 40 mg tablet 40 mg PO .COMPLEX #180 tabs 08/20/22 [Rx Last Taken Unknown] hydralazine 100 mg tablet 100 mg PO TID #270 tabs 08/20/22 [Rx Last Taken Unknown] nitroglycerin 0.4 mg sublingual tablet 0.4 mg sublingual Q5M PRN chest pain #25 tabs 08/20/22 [Rx Last Taken Unknown] ranolazine 500 mg tablet,extended release,12 hr 500 mg PO BID #180 tabs 08/20/22 [Rx Last Taken Unknown] warfarin 4 mg tablet 4 mg PO .COMPLEX #180 tabs 08/20/22 [Rx Last Taken Unknown] empagliflozin 25 mg tablet (Jardiance) 25 mg PO DAILY #30 tabs 08/29/22 [Rx Last Taken Unknown] gabapentin 300 mg capsule 600 mg PO TID nerve pain 11/01/22 [History Last Taken Unknown] isosorbide mononitrate 60 mg tablet,extended release 24 hr 60 mg PO BID #180 tabs 11/01/22 [Rx Last Taken Unknown] metoprolol tartrate 50 mg tablet 50 mg PO BID #180 tabs 11/04/22 [Rx Last Taken Unknown] flash glucose scanning reader (Pictela Jong 2 [place]) #1 ea 11/08/22 [Rx Last Taken Unknown] Allergy/AdvReac Type Severity Reaction Status Date / Time latex Allergy Rash Verified 11/30/22 13:25 adhesive tape AdvReac Rash Verified 11/30/22 13:25 ticagrelor [From Brilinta] AdvReac Shortness Verified 11/30/22 13:25 of breath Family History Father Heart disease Mother Breast cancer Diabetes Heart disease Surgical History H/O hemorrhoidectomy History of appendectomy History of arthroscopic knee surgery History of back surgery History of cardiac catheterization History of cholecystectomy History of coronary artery bypass graft x 3 (~04/08/16) History of coronary artery stent placement History of hysterectomy History of knee replacement procedure of right knee History of right and left heart catheterization (LHC) (~08/10/19) History of right inguinal hernia repair Hx of CABG Hx of hand surgery Postlaminectomy syndrome of lumbar region Presence of coronary angioplasty implant and graft (~12/11/18) Social History household members: spouse housing: house Smoking Status: Never smoker alcohol intake: never substance use type: does not use caffeine: No ROS ROS ED ROS Narrative Nonproductive cough. Review of Systems ROS Unobtainable: Denies due to encephalopathy Constitutional Constitutional ED: Denies chills or fever(s) Eyes Eyes: Denies blurry vision ENT ENT ED: Denies ear pain Cardiovascular Cardiovascular: Denies chest pain Respiratory/Chest Respiratory/Chest: Reports cough; Denies dyspnea Gastrointestinal Gastrointestinal: Denies abdominal pain, constipation, diarrhea, melena, nausea or vomiting Genitourinary Genitourinary ED: Denies dysuria or hematuria Musculoskeletal Musculoskeletal: Denies arthralgias Integumentary Denies abscess or Abrasions Neurologic Neurologic: Denies headache(s) Psychiatric Psychiatric: Denies anxiety or depression Endocrine Endocrinology: Denies cold intolerance Hematologic/Lymphatic Hematologic/Lymphatic: Reports none Allergic/Immunologic Allergic/Immunologic ED: Denies mouth swelling, tongue swelling or urticaria EXAM Physical Exam Narrative Exam Narrative: 87-year-old female no acute distress. Sitting upright in bed. Vital signs are stable afebrile. Pulse ox 96% on room air no hypoxia. at bedside. H EENT exam atraumatic. Pupils round reactive light. Moist weeks membranes. Neck nontender. No JVD. Lungs clear to auscultation bilaterally. Heart regular rate about 70 no murmur. Chest wall nontender. Abdomen soft nontender. Moving all 4 extremities. Nontender no edema. Neurologically she is awake and alert. She knows she is in the hospital. She knows the month and year. She knows the president. She has no focal motor deficits. She has normal speech. No facial droop. 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 Normal dorsi plantarflexion. She can raise either leg off the bed. Const Vital Signs: 11/30/22 13:22 11/30/22 13:35 11/30/22 15:22 Temperature 98.2 F Temperature Source Temporal Pulse Rate 67 Respiratory Rate 16 16 Respiratory Effort Short of Breath Blood Pressure 185/80 H Blood Pressure Mean 115 Pulse Ox 96 Oxygen Delivery Method Room Air Positive well nourished and well developed; Negative for cachectic or contractures General Appearance ED: well developed and NAD; Negative for cachectic, contractures, cyanotic, diaphoretic or pallor Nutritional Appearance: Negative for cachectic HEENT Reports moist mucous membranes; Denies dry mucous membranes Negative for trauma or tenderness Mouth ED: No dry mucous membranes Mouth: No dry mucous membranes Eyes PERRL and EOMs intact bilaterally General Eye ED: Negative for pale conjunctiva, scleral icterus or other Neck no lymphadenopathy, supple and no JVD General: Negative for tenderness Lymph Lymphatic: Negative for other Chest Wall inspection of chest normal and palpation of chest normal Resp normal respiratory effort and clear to auscultation bilaterally Effort and Inspection: Negative for retractions Auscultation: Negative for rales, rhonchi or wheezes Cardio regular rate, regular rhythm, S1 normal heart sound, S2 normal heart sound and no murmurs Rate: Negative for bradycardia or tachycardic GI normal to inspection, nondistended, normoactive bowel sounds, non-tender, non-distended and no masses Auscultation: normoactive bowel sounds Palpation: soft; Negative for tender or guarding Back/Spine no CVA tenderness General Back: Negative for CVA tenderness Cervical Spine: Negative for cervical spine tenderness Thoracic Spine / Upper Back: Negative for thoracic spinal tenderness Lumbar Spine / Lower Back: Negative for lumbar spinal tenderness Extremity normal to inspection General Extremety ED: Negative for edema or tenderness General Extremity: Negative for edema Neuro oriented x3 and CN's II-XII intact bilaterally Sensorium / Orientation: alert; Negative for lethargic or stuporous Motor Exam: strength 5/5 throughout Psych mental status grossly normal Appearance: Negative for other Attitude: No agitated Mood & Affect: Negative for depressed, anxious or tearful Skin no rashes or lesions noted, no wounds and skin turgor normal General Skin Exam: elasticity normal; Negative for jaundice or pallor Lesions: No lesion noted Rashes: No rashes noted Trauma: Negative for abrasion Wounds: Negative for wounds noted MDM MDM MDM Narrative Medical decision making narrative: 87-year-old female with URI symptoms has a benign exam. Showing open infectious work-up. Coumadin level be obtained. Chest x-ray, labs. Repeat exam at 3:42 PM patient doing well. I went over all of her test results with her and her . They are basically her baseline other than her blood sugar 478. We will give her 8 units of insulin subcu recheck in 1 hour and then she will be discharged home with outpatient follow-up. Patient and are both comfortable with the plan. They will follow-up with her primary care physician this week. History & Record Review Discussion w/independent historian: Patient and Family Additional record(s) reviewed:: Prior inpatient record, Prior outpatient record, Prior ED visit and Prior labs Lab Data Attestation: I reviewed the patient's lab results. Lab results narrative: CBC unremarkable. White count of 9. H&H 14 and 44. Platelets 226. Chemistries show gap of 9. BUN and creatinine 24 and 1.41. Glucose is elevated at 478 she is a known diabetic. Liver enzymes are unremarkable other than alkaline phosphatase of 125. PT/INR 13 and 1. Subtherapeutic for sure if she is on the warfarin. Urinalysis is contaminated. She has no nitrates. 10-25 white cells. No red cells. She does have 5-10 squamous cells. No bacteria. I would treat this. Labs are consistent with prior labs. She has a history of renal insufficiency with creatinines above 2 in the past. COVID and flu swabs are negative. Labs: Laboratory Results - last 24 hr 11/30/22 11/30/22 13:46 14:00 WBC 9.8 RBC 4.77 Hgb 14.1 Hct 44.8 MCV 93.9 MCH 29.6 MCHC 31.5 L RDW Std Deviation 47.8 H RDW Coeff of Laquita 13.9 Plt Count 226 MPV 11.5 Immature Gran % (Auto) 0.300 Neut % (Auto) 70.6 H Lymph % (Auto) 19.2 Antelope % (Auto) 7.5 Eos % (Auto) 1.8 Baso % (Auto) 0.6 Absolute Neuts (auto) 6.9 Absolute Lymphs (auto) 1.88 Nucleated RBC % 0 PT 13.0 INR 1.0 Sodium 136 Potassium 4.0 Chloride 104 Carbon Dioxide 23.0 Anion Gap 9 BUN 24 H Creatinine 1.41 H Estim Creat Clear Calc 24.13 Est GFR (MDRD) Af Amer 46 L Est GFR (MDRD) Non-Af 38 L BUN/Creatinine Ratio 17.0 Glucose 478 H* Calcium 8.8 Total Bilirubin 0.40 AST 16 ALT 17 Alkaline Phosphatase 125 H Total Protein 7.6 Albumin 3.4 Globulin 4.2 Albumin/Globulin Ratio 0.8 L Urine Color Yellow Urine Clarity Sl. Cloudy Urine pH 5.0 Ur Specific [place] 1.015 Urine Protein 100 H Urine Glucose (UA) 1000 H Urine Ketones Negative Urine Occult Blood 10 H Urine Nitrite Negative Urine Bilirubin Negative Urine Urobilinogen Normal Ur Leukocyte Esterase 25 H Urine RBC 0 SEEN Urine WBC 10-25 SEEN Ur Squamous Epith Cells 5-10 SEEN Urine Bacteria 0 SEEN Urine Mucus 0 SEEN Urine Yeast 1+ Radiography Chest X-Ray - ED: 1 View, Read by ED Physician, Read by Radiologist, Heart, Lungs, Mediastinum, Bony Structures, No Acute Disease and Chronic Changes Diagnostic Testing: Clinical Impression(s) from Imaging Studies Chest X-Ray 11/30/22 13:39 IMPRESSION: No radiographic evidence of acute cardiopulmonary disease. Electronically Signed: Jose J Varner MD at 14:20 EDT , Chest x-ray, 2 views, AP and lateral justin, interpreted both myself and the radiologist shows prior sternotomy. Spinal stimulator. Orthopedic hardware in the lower spine. Normal cardiac silhouette. Normal lung mcgee. Chronic changes. No acute. Rhythm Strip Rhythm Strip: Sinus Rhythm Rate: 63 Ectopy: None EKG Initial EKG: Attestation: I personally reviewed and interpreted this EKG as follows: Interpretation: Sinus Rhythm and No Acute Injury Pattern Comments: Normal sinus rhythm rate of 63 no acute signs of SD. She does have inverted T waves in leads V1 and V2. Discharge Plan Triage Chief Complaint: General Illness ED Provider: Dc Mcpherson Dx/Rx/DC Orders Clinical Impression: Hyperglycemia due to diabetes mellitus, Viral syndrome Instructions: ED Diabetic Hyperglycemia, ED Viral Syndrome (Adult) Prescriptions: No Action aspirin [Adult Low Dose Aspirin] 81 mg tablet,delayed release (DR/EC) 81 mg PO DAILY gabapentin 300 mg capsule 600 mg PO TID cholecalciferol (vitamin D3) [Vitamin D3] 25 mcg (1,000 unit) capsule 25 mcg PO QODAY levothyroxine 50 mcg tablet 50 mcg PO DAILY duloxetine 30 mg capsule,delayed release(DR/EC) 30 mg PO DAILY diphenhydramine-acetaminophen [Tylenol PM Extra Strength] 25-500 mg tablet 1 tab PO QHS insulin glargine [Lantus Solostar U-100 Insulin] 100 unit/mL (3 mL) insulin pen 27 unit subcut QPM Novolin N FlexPen 100 unit/mL (3 mL) insulin pen 7 unit subcut HS Qty: 3 5RF Jardiance 25 mg tablet 25 mg PO DAILY Qty: 30 5RF isosorbide mononitrate 60 mg tablet extended release 24 hr 60 mg PO BID Qty: 180 3RF oxybutynin chloride 10 MG tablet extended release 24hr 10 mg PO DAILY insulin lispro [Humalog KwikPen Insulin] 100 unit/mL insulin pen 27 unit subcut TID PRN PRN (Reason: SLIDING SCALE) atorvastatin 40 mg tablet 40 mg PO QHS Qty: 90 3RF furosemide 40 mg tablet 40 mg PO .COMPLEX Qty: 180 3RF Rx Instructions: 40 mg orally daily, may take 1 extra pill daily for weight gain, swelling, or shortness of breath; hydralazine 100 mg tablet 100 mg PO TID Qty: 270 3RF nitroglycerin 0.4 mg tablet, sublingual 0.4 mg SUBLINGUAL Q5M PRN (Reason: chest pain) Qty: 25 3RF Rx Instructions: do not exceed 3 doses per episode ranolazine 500 mg tablet extended release 12 hr 500 mg PO BID Qty: 180 3RF warfarin 4 mg tablet 4 mg PO .COMPLEX Qty: 180 3RF Protocol: Dose Management Condition: Friday Dose/Route: 6 mg Instruction: 1.5 x 4 mg tablets Condition: Friday Dose/Route: 4 mg Instruction: 1 x 4 mg tablet Condition: Friday Dose/Route: 4 mg Instruction: 1 x 4 mg tablet Condition: Friday Dose/Route: 4 mg Instruction: 1 x 4 mg tablet Condition: Dose/Route: 4 mg Instruction: 1 x 4 mg tablet Condition: Friday Dose/Route: 4 mg Instruction: 1 x 4 mg tablet Condition: Friday Dose/Route: 6 mg Instruction: 1.5 x 4 mg tablets Protocol Text: Adjustment Start Date: Friday08/20/22 INR Value: 2.5 INR Date: 08/05/22 Recheck Date: 08/26/22 Rx Instructions: 4 mg orally daily Friday through Friday ; and take 1and a half tablets (6mg) on Sat and Sun; or as directed; metoprolol tartrate 50 mg tablet 50 mg PO BID Qty: 180 3RF (DME) Free[employer] Jong 2 [place] Misc See Rx Instructions .Route Qty: 1 0RF Rx Instructions: As directed Primary Care Provider: Jose J Lezama Referrals: Jose J Lezama, DO [Primary Care Provider] - As soon as possible (Call your primary care physician follow-up with his office this week to be rechecked.) Activity Restrictions/Additional Instructions: Your labs today look good other than your blood sugar 478. Make sure you check your blood sugar tonight before you go to bed. Plenty of fluids and rest. Follow-up with your doctor this week. Return if worse. Disposition Disposition: Home, Self Care
[2022-11-30 14:03] LABS: Absolute Lymphocyte Count 1.88 X10^3/uL (0.83-4.51); Absolute Neutrophil Count 6.9 X10^3/uL (2.0-7.7); Basophil# 0.06 X10^3/uL; Basophil% 0.6 % (0-1); Eosinophil# 0.18 X10^3/uL; Eosinophils% 1.8 % (0-5); Hematocrit 44.8 % (37-47); Hemoglobin 14.1 g/dL (12.0-15.0); Lymphocyte # 1.88 X10^3/ul (0.83-4.51); Lymphocyte % 19.2 % (19-41); Mean Corp Hgb Conc 31.5 g/dL (32-36); Mean Corpuscular Hgb 29.6 pg (27.0-32.0); Mean Corpuscular Volume 93.9 fL (81-99); Mean Platelet Vol. 11.5 fl (6.2-12.0); Monocyte# 0.74 X10^3/uL; Monocyte% 7.5 % (0-10); NRBC Flagged by Analyzer 0 % (0-5); Neutrophil # 6.92 X10^3/uL (2.7-7.7); Neutrophil % 70.6 % (47-70); Platelet Count 226 K/mm3 (150-450); RBC Distribution Width CV 13.9 % (11.6-14.6); RBC Distribution Width SD 47.8 fl (35.1-43.9); Red Blood Count 4.77 M/mm3 (4.2-5.4); White Blood Count 9.8 K/mm3 (4.4-11.0)
[2022-11-30 14:16] LABS: Bacteria 0 SEEN /hpf (None Seen); Mucous, Urine 0 SEEN /hpf (<or=2+); Red Blood Cells-Urine 0 SEEN /hpf (0-5)
[2022-11-30 14:20] LABS: Color, Urine Yellow (Yellow); Glucose, Dipstick 1000 mg/dl (Normal); Ketone-Dipstick Negative (Negative); Leukocyte Esterase-Dipstick 25 /ul (Negative); Nitrite-Dipstick Negative (Negative); Occult Blood-Urine 10 /ul (Negative); Protein-Dipstick 100 mg/dl (Negative); Specific Gravity, Urine 1.015 (1.002-1.030); Urine Bilirubin Dipstick Negative (Negative); Urine Clarity Sl. Cloudy (Clear); Urine Urobilinogen Normal (Normal)
[2022-11-30 14:21] LABS: ALB/GLOB Ratio 0.8 RATIO (0.9-2.4); AST(SGOT) 16 U/L (15-37); Alanine Aminotransfer ALT/SGPT 17 U/L (13-56); Albumin, Serum 3.4 g/dL (3.2-5.0); Alkaline Phosphatase 125 U/L (45-117); Anion Gap 9 (5-15); BUN 24 mg/dL (7-18); Calcium,Total 8.8 mg/dL (8.5-10.1); Chloride 104 mmol/L (98-107); Creatinine, Serum 1.41 mg/dL (0.55-1.02); EST Glomerular Filtration Rate 38 mL/min (>60); Est Glom Filt Rate - Afr Amer 46 mL/min (>60); Estimated Creatinine Clearance 24.13 ml/min; Globulin 4.2 g/dL (2.2-4.2); Glucose 478 mg/dL (74-106); Protein, Total 7.6 g/dL (6.4-8.2); Sodium Level 136 mmol/L (136-145)
[2022-11-30 14:26] LABS: Squamous Epithelial Cells - UA 5-10 SEEN /hpf (5-10); White Blood Cells 10-25 SEEN /hpf (0-5); Yeast-Urine 1+ /hpf (None Seen)
[2022-11-30 15:22] VITALS: RESP 16
[2022-11-30] MEDS: Insulin Lispro 100 UNIT/ML INSULN.PEN 8 UNIT SC (15:52)
[2022-11-30 17:11] LABS: Bedside Glucose 340 mg/dL (74-106)
== END 2022-11-30 17:10 | disposition home or self-care (01) ==
PROVIDERS: Emergency Provider Emergency Medicine; PCP Family Medicine; Visit Provider Emergency Medicine
DX: E11.65 Type 2 diabetes mellitus with hyperglycemia (principal); I13.0 Hypertensive heart and chronic kidney disease with heart failure and stage 1 through stage 4 chronic kidney disease, or unspecified chronic kidney disease; I50.9 Heart failure, unspecified; E11.22 Type 2 diabetes mellitus with diabetic chronic kidney disease; I48.0 Paroxysmal atrial fibrillation; Z79.4 Long term (current) use of insulin; N18.30 Chronic kidney disease, stage 3 unspecified; E78.00 Pure hypercholesterolemia, unspecified; I25.10 Atherosclerotic heart disease of native coronary artery without angina pectoris; B34.9 Viral infection, unspecified; Z79.01 Long term (current) use of anticoagulants; Z99.89 Dependence on other enabling machines and devices; Z86.73 Personal history of transient ischemic attack (TIA), and cerebral infarction without residual deficits; Z79.899 Other long term (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; Z79.82 Long term (current) use of aspirin; E03.9 Hypothyroidism, unspecified; Z90.49 Acquired absence of other specified parts of digestive tract; Z95.5 Presence of coronary angioplasty implant and graft; Z90.710 Acquired absence of both cervix and uterus; Z96.651 Presence of right artificial knee joint; Z95.1 Presence of aortocoronary bypass graft
CPT/HCPCS: 71046; 80053; 81001; 82962; 85025; 85610; 87428; 93005; 99283; A4216

== ENCOUNTER 2022-12-04 00:06 | Emergency (ER) | payer MEDICARE, SELFPAY ==
[2021-06-18 13:40] VITALS: BMI 28.7
[2022-12-04 00:07] VITALS: BP 122/71; PULSE 61; RESP 18; TEMP 36.6; O2SAT 89; BMI 27.6
--- NOTE | 2022-12-04 00:47 | CT_ITS ---
EXAM: CT HEAD WITHOUT INTRAVENOUS CONTRAST CLINICAL INDICATION: Fall with head injury. Struck head on counter. TECHNIQUE: Multiple axial images were obtained of the head without intravenous contrast. This CT exam was performed using one or more of the following dose reduction techniques: automated exposure control, adjustment of the mA and/or kV according to patient size, and/or use of iterative reconstruction technique. RADIATION DOSE: CTDIvol = 44.99 mGy, DLP = 796.11 mGy-cm COMPARISON: No relevant prior studies available. FINDINGS: BRAIN AND EXTRA-AXIAL SPACES: Moderate generalized atrophy. Moderate low density bilaterally in the deep white matter. 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 No intra- or extra-axial hemorrhage. No intracranial mass or mass effect. No hydrocephalus. Basal cisterns are patent. BONES/JOINTS: Unremarkable. No discrete lytic or blastic abnormalities. SINUSES: Unremarkable as visualized. Clear. MASTOID AIR CELLS: Unremarkable. Clear. ORBITS: Visualized globes, extraocular muscles, optic nerves and retrobulbar fat appear unremarkable. CT/Brain/Head without Contrast IMPRESSION: 1. Moderate generalized atrophy. Moderate low density bilaterally in the deep white matter. This likely represents chronic small vessel ischemic changes in the deep white matter. 2. 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 No acute intracranial abnormality. Electronically Signed: Jarvis Crowder MD at 1:51 EDT ,
--- NOTE | 2022-12-04 00:55 | ED.VIS.FALL ---
HPI HPI - Fall History of Present Illness Chief Complaint: Fall Informant: patient, spouse/S.O. and EMS Narrative Narrative: 87-year-old female on Coumadin sustained a fall in her kitchen today. She states she was using her walker and the walker slipped and she fell striking her right forehead on the corner of the cabinet. No loss of consciousness. She states she also hit the right shoulder. EMS notes laceration. She denies any neck pain. No back or leg pain. The patient believes that her last tetanus was within 5 to 6 years ago [facility] Medical History (HFpEF) heart failure with preserved ejection fraction Acute on chronic heart failure with preserved ejection fraction (HFpEF) Ambulates with cane Angina pectoris Arthritis Atherosclerotic heart disease of resighini coronary artery without angina pectoris Atrial fibrillation Back pain Broken ribs CAD (coronary artery disease) CAD (coronary artery disease) Cardiology follow-up encounter Carotid stenosis, left Chest pain Chronic anticoagulation Chronic renal failure, stage 3 (moderate) Congestive heart failure Coronary artery disease CPAP (continuous positive airway pressure) dependence Debility Diabetes Diabetes mellitus, type 2 Dietary restriction Difficulty swallowing Easy bruising Essential hypertension Fatigue Fibromyalgia GERD (gastroesophageal reflux disease) High cholesterol History of atrial fibrillation History of CHF (congestive heart failure) History of coronary artery disease History of echocardiogram History of pain when walking History of renal disease History of stress test History of stroke Hypertension Hypertension Hypothyroidism Insulin dependent diabetes mellitus Intertrigo Kidney disease care home current use of anticoagulant Lower GI bleeding Lumbosacral radiculopathy Microalbuminuria Migraine headache New onset atrial fibrillation Non-smoker Obstructive sleep apnea Osteoarthritis of left knee 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 PAF (paroxysmal atrial fibrillation) Post-menopausal Presence of stent in coronary artery (~12/11/18) Pulmonary HTN Pure hypercholesterolemia Renal cancer Shortness of breath on exertion Stroke/cerebrovascular accident Thyroid disease Vertigo Wears hearing aid Home Medications aspirin 81 mg tablet,delayed release (Adult Low Dose Aspirin) 81 mg PO DAILY heart health 01/01/19 [History Last Taken 07/18/22] oxybutynin chloride 10 mg tablet,extended release 24 hr 10 mg PO DAILY BLADDER 03/23/19 [History Last Taken 07/18/22] levothyroxine 50 mcg tablet 50 mcg PO DAILY thyroid 05/10/20 [History Last Taken 07/18/22] cholecalciferol (vitamin D3) 25 mcg (1,000 unit) capsule (Vitamin D3) 25 mcg PO QODAY vitamin 06/20/21 [History Last Taken 07/17/22] duloxetine 30 mg capsule,delayed release 30 mg PO DAILY 02/28/22 [History Last Taken 07/18/22] diphenhydramine 25 mg-acetaminophen 500 mg tablet (Tylenol PM Extra Strength) 1 tab PO QHS 04/18/22 [History Last Taken Unknown] insulin lispro 100 unit/mL subcutaneous pen (Humalog KwikPen (U-100) Insulin) 27 unit subcut TID PRN PRN SLIDING SCALE 05/23/22 [History Last Taken 07/18/22] insulin glargine 100 unit/mL (3 mL) subcutaneous pen (Lantus Solostar U-100 Insulin) 27 unit subcut QPM 06/06/22 [History Last Taken 07/17/22] insulin NPH isoph U-100 human 100 unit/mL (3 mL) subcutaneous pen (Novolin N FlexPen) 7 unit (0.07 mL) subcut HS #3 mL 06/20/22 [Rx Last Taken 07/17/22] atorvastatin 40 mg tablet 40 mg PO QHS cholesterol #90 tabs 08/20/22 [Rx Last Taken Unknown] furosemide 40 mg tablet 40 mg PO .COMPLEX #180 tabs 08/20/22 [Rx Last Taken Unknown] hydralazine 100 mg tablet 100 mg PO TID #270 tabs 08/20/22 [Rx Last Taken Unknown] nitroglycerin 0.4 mg sublingual tablet 0.4 mg sublingual Q5M PRN chest pain #25 tabs 08/20/22 [Rx Last Taken Unknown] ranolazine 500 mg tablet,extended release,12 hr 500 mg PO BID #180 tabs 08/20/22 [Rx Last Taken Unknown] warfarin 4 mg tablet 4 mg PO .COMPLEX #180 tabs 08/20/22 [Rx Last Taken Unknown] empagliflozin 25 mg tablet (Jardiance) 25 mg PO DAILY #30 tabs 08/29/22 [Rx Last Taken Unknown] gabapentin 300 mg capsule 600 mg PO TID nerve pain 11/01/22 [History Last Taken Unknown] isosorbide mononitrate 60 mg tablet,extended release 24 hr 60 mg PO BID #180 tabs 11/01/22 [Rx Last Taken Unknown] metoprolol tartrate 50 mg tablet 50 mg PO BID #180 tabs 11/04/22 [Rx Last Taken Unknown] flash glucose scanning reader ([employer] [place]) #1 ea 11/08/22 [Rx Last Taken Unknown] Allergy/AdvReac Type Severity Reaction Status Date / Time latex Allergy Rash Verified 12/02/22 13:18 adhesive tape AdvReac Rash Verified 12/02/22 13:18 ticagrelor [From Brilinta] AdvReac Shortness Verified 12/02/22 13:18 of breath Family History Father Heart disease Mother Breast cancer Diabetes Heart disease Surgical History H/O hemorrhoidectomy History of appendectomy History of arthroscopic knee surgery History of back surgery History of cardiac catheterization History of cholecystectomy History of coronary artery bypass graft x 3 (~04/08/16) History of coronary artery stent placement History of hysterectomy History of knee replacement procedure of right knee History of right and left heart catheterization (LHC) (~08/10/19) History of right inguinal hernia repair Hx of CABG Hx of hand surgery Postlaminectomy syndrome of lumbar region Presence of coronary angioplasty implant and graft (~12/11/18) Social History household members: spouse housing: house Smoking Status: Never smoker alcohol intake: never substance use type: does not use caffeine: No ROS ROS ED Constitutional Constitutional ED: Denies chills, fever(s) or weight loss Eyes Eyes: Denies change in vision or diplopia ENT ENT ED: Denies ear pain, rhinorrhea or sore throat Cardiovascular Cardiovascular: Denies chest pain, orthopnea, palpitations or racing heartbeat Respiratory/Chest Respiratory/Chest: Denies cough, dyspnea or orthopnea Gastrointestinal Gastrointestinal: Denies abdominal pain, diarrhea, nausea or vomiting Genitourinary Genitourinary ED: Denies dysuria, hematuria or urinary frequency Musculoskeletal Musculoskeletal: Reports other Details: Right shoulder pain ; Denies arthralgias or myalgias Integumentary Reports other Details: Forehead laceration ; Denies abscess or rash Neurologic Neurologic: Denies headache(s) or weakness Psychiatric Psychiatric: Denies anxiety, depression, suicidal ideation or suicidal thoughts Endocrine Endocrinology: Denies polydipsia, polyphagia or polyuria Allergic/Immunologic Allergic/Immunologic ED: Denies mouth swelling, tongue swelling or urticaria EXAM Physical Exam Const Vital Signs: 12/04/22 00:07 12/04/22 00:11 12/04/22 01:49 Temperature 98 F Temperature Source Oral Pulse Rate 61 55 L Respiratory Rate 18 15 Respiratory Effort Normal Non-Labored Blood Pressure 122/71 H 133/63 H Blood Pressure Mean 88 86 Pulse Ox 89 93 Oxygen Delivery Method Room Air Room Air Room Air Positive well nourished and well developed General Appearance ED: well developed HEENT Reports normocephalic and moist mucous membranes HEENT Narrative: There is a 2.5 cm linear laceration of the right forehead. This appears to have arteriole bleeding. There is no palpable bony depression. Eyes PERRL and EOMs intact bilaterally Neck no lymphadenopathy, supple and no JVD Resp normal respiratory effort and clear to auscultation bilaterally Cardio regular rate, regular rhythm and no murmurs GI normal to inspection, nondistended, normoactive bowel sounds and non-tender Palpation: soft Back/Spine no CVA tenderness and normal ROM Extremity Extremity Narrative: There is some ecchymosis and tenderness over the anterior lateral aspect of the right shoulder. There is no clavicular or AC joint tenderness. She reports decreased range of motion due to pain. There is an older greenish-brown ecchymosis over the mid humerus on the right side. No obvious deformity. Neurovascular intact distally. General Extremety ED: Negative for edema General Extremity: Negative for edema Neuro oriented x3 and CN's II-XII intact bilaterally Sensorium / Orientation: alert Motor Exam: strength 5/5 throughout Psych mental status grossly normal Mood & Affect: Negative for depressed or tearful Skin no rashes or lesions noted and no wounds MDM MDM MDM Narrative Medical decision making narrative: PainBecause of the arteriole 1% lidocaine was used to anesthetize the area. Direct pressure did not stem the bleeding. 3 simple interrupted Vicryl sutures were used to tie off the ends of the arterial. This resulted in no further arterial bleeding. The wound was then closed using 5 simple interrupted 4-[address] of the brain was obtained which does not demonstrate any skull fracture or intracranial hemorrhage. My independent interpretation of the plain films of the right shoulder is no acute fracture. INR is subtherapeutic at 1.2. This was addressed with the patient and her . Local wound care and stitch removal was discussed. Return if worsening or concerns Lab Data Attestation: I reviewed the patient's lab results. Labs: Laboratory Results - last 24 hr 12/04/22 00:55 PT 15.1 H INR 1.2 Discharge Plan Triage Chief Complaint: Fall ED Provider: Familia Anderson Dx/Rx/DC Orders Clinical Impression: Anticoagulated on Coumadin, Forehead laceration, Fall, Contusion of right shoulder Instructions: ED Head Injury (Adult), ED Laceration: All Closures Prescriptions: No Action aspirin [Adult Low Dose Aspirin] 81 mg tablet,delayed release (DR/EC) 81 mg PO DAILY gabapentin 300 mg capsule 600 mg PO TID cholecalciferol (vitamin D3) [Vitamin D3] 25 mcg (1,000 unit) capsule 25 mcg PO QODAY levothyroxine 50 mcg tablet 50 mcg PO DAILY duloxetine 30 mg capsule,delayed release(DR/EC) 30 mg PO DAILY diphenhydramine-acetaminophen [Tylenol PM Extra Strength] 25-500 mg tablet 1 tab PO QHS insulin glargine [Lantus Solostar U-100 Insulin] 100 unit/mL (3 mL) insulin pen 27 unit subcut QPM Novolin N FlexPen 100 unit/mL (3 mL) insulin pen 7 unit subcut HS Qty: 3 5RF Jardiance 25 mg tablet 25 mg PO DAILY Qty: 30 5RF isosorbide mononitrate 60 mg tablet extended release 24 hr 60 mg PO BID Qty: 180 3RF oxybutynin chloride 10 MG tablet extended release 24hr 10 mg PO DAILY insulin lispro [Humalog KwikPen Insulin] 100 unit/mL insulin pen 27 unit subcut TID PRN PRN (Reason: SLIDING SCALE) atorvastatin 40 mg tablet 40 mg PO QHS Qty: 90 3RF furosemide 40 mg tablet 40 mg PO .COMPLEX Qty: 180 3RF Rx Instructions: 40 mg orally daily, may take 1 extra pill daily for weight gain, swelling, or shortness of breath; hydralazine 100 mg tablet 100 mg PO TID Qty: 270 3RF nitroglycerin 0.4 mg tablet, sublingual 0.4 mg SUBLINGUAL Q5M PRN (Reason: chest pain) Qty: 25 3RF Rx Instructions: do not exceed 3 doses per episode ranolazine 500 mg tablet extended release 12 hr 500 mg PO BID Qty: 180 3RF warfarin 4 mg tablet 4 mg PO .COMPLEX Qty: 180 3RF Protocol: Dose Management Condition: Friday Dose/Route: 6 mg Instruction: 1.5 x 4 mg tablets Condition: Friday Dose/Route: 4 mg Instruction: 1 x 4 mg tablet Condition: Friday Dose/Route: 4 mg Instruction: 1 x 4 mg tablet Condition: Friday Dose/Route: 4 mg Instruction: 1 x 4 mg tablet Condition: Dose/Route: 4 mg Instruction: 1 x 4 mg tablet Condition: Friday Dose/Route: 4 mg Instruction: 1 x 4 mg tablet Condition: Friday Dose/Route: 6 mg Instruction: 1.5 x 4 mg tablets Protocol Text: Adjustment Start Date: Friday08/20/22 INR Value: 2.5 INR Date: 08/05/22 Recheck Date: 08/26/22 Rx Instructions: 4 mg orally daily Friday through Friday ; and take 1and a half tablets (6mg) on Sat and Sun; or as directed; metoprolol tartrate 50 mg tablet 50 mg PO BID Qty: 180 3RF (DME) [employer] [place] Misc See Rx Instructions .Route Qty: 1 0RF Rx Instructions: As directed Primary Care Provider: Jose J Lezama Referrals: Jose J Lezama, [Primary Care Provider] - 7 Days for suture removal Activity Restrictions/Additional Instructions: The stitches will need to be removed in 5 to 7 days. Please note that your warfarin level today is 1.2. I would take an extra warfarin today and tomorrow. I would recommend having your Coumadin checked at the end of this week. Disposition Disposition: Home, Self Care
[2022-12-04] MEDS: Lidocaine 1% /Epi 1:100 (20ml) 20 ML Vial INFILT (00:59)
--- NOTE | 2022-12-04 01:35 | RAD_ITS ---
EXAM: XR RIGHT SHOULDER COMPLETE, 2 OR MORE VIEWS CLINICAL INDICATION: fall, right shoulder pain TECHNIQUE: Two or more views of the right shoulder. COMPARISON: No relevant prior studies available. FINDINGS: BONES/JOINTS: Unremarkable. No acute fracture. No subluxation. Normal alignment. Preservation of the joint space. No sclerotic or destructive changes observed. SOFT TISSUES: Unremarkable. No soft tissue swelling or gas. No radiopaque foreign body. RAD/Shoulder min 2 Views IMPRESSION: Negative right shoulder x-rays. Electronically Signed: Jarvis Crowder MD at 2:04 EDT ,
[2022-12-04] MEDS: HYDROcodone Bitartrate/Apap 5/325 Tablet PO (01:45)
[2022-12-04 01:49] VITALS: BP 133/63; PULSE 55; RESP 15; O2SAT 93
[2022-12-04 01:51] LABS: International Normalized Ratio 1.2; Prothrombin Time (Protime)PT. 15.1 SECONDS (11.7-14.9)
[2022-12-04 03:18] VITALS: BP 134/57; PULSE 55; RESP 15; O2SAT 92
[2022-12-04] MEDS: Ondansetron ODT 4 MG Tablet PO (03:37)
== END 2022-12-04 03:43 | disposition home or self-care (01) ==
PROVIDERS: Emergency Provider Emergency Medicine; PCP Family Medicine; Visit Provider Emergency Medicine
DX: S01.81XA Laceration without foreign body of other part of head, initial encounter (principal); I13.0 Hypertensive heart and chronic kidney disease with heart failure and stage 1 through stage 4 chronic kidney disease, or unspecified chronic kidney disease; I50.32 Chronic diastolic (congestive) heart failure; E11.22 Type 2 diabetes mellitus with diabetic chronic kidney disease; I48.0 Paroxysmal atrial fibrillation; Z79.4 Long term (current) use of insulin; I25.10 Atherosclerotic heart disease of native coronary artery without angina pectoris; S40.011A Contusion of right shoulder, initial encounter; E78.00 Pure hypercholesterolemia, unspecified; Z79.01 Long term (current) use of anticoagulants; Z79.82 Long term (current) use of aspirin; Z86.73 Personal history of transient ischemic attack (TIA), and cerebral infarction without residual deficits; G47.33 Obstructive sleep apnea (adult) (pediatric); W01.190A Fall on same level from slipping, tripping and stumbling with subsequent striking against furniture, initial encounter; Y92.010 Kitchen of single-family (private) house as the place of occurrence of the external cause
CPT/HCPCS: 12001; 70450; 73030; 85610; 99284

== ENCOUNTER 2022-12-05 16:13 | Observation (INO) | payer MEDICARE, SELFPAY ==
[2021-06-18 13:40] VITALS: BMI 28.7
[2022-12-05] VITALS (8 sets, daily range): BP systolic 146–176; BP diastolic 57–89; PULSE 67–71; RESP 14–18; TEMP 36.1–36.5; O2SAT 87–98; BMI 30.7; BMI 26.6
[2022-12-05] MEDS: Acetaminophen 325 MG Tablet 650 MG PO (17:24)
[2022-12-05 17:26] LABS: Absolute Lymphocyte Count 1.36 X10^3/uL (0.83-4.51); Absolute Neutrophil Count 10.2 X10^3/uL (2.0-7.7); Basophil# 0.04 X10^3/uL; Basophil% 0.3 % (0-1); Eosinophil# 0.11 X10^3/uL; Eosinophils% 0.9 % (0-5); Hematocrit 39.3 % (37-47); Hemoglobin 12.7 g/dL (12.0-15.0); Lymphocyte # 1.36 X10^3/ul (0.83-4.51); Lymphocyte % 10.6 % (19-41); Mean Corp Hgb Conc 32.3 g/dL (32-36); Mean Corpuscular Hgb 29.7 pg (27.0-32.0); Mean Corpuscular Volume 91.8 fL (81-99); Mean Platelet Vol. 12.5 fl (6.2-12.0); Monocyte# 0.99 X10^3/uL; Monocyte% 7.8 % (0-10); NRBC Flagged by Analyzer 0 % (0-5); Neutrophil # 10.21 X10^3/uL (2.7-7.7); Neutrophil % 79.9 % (47-70); Platelet Count 186 K/mm3 (150-450); RBC Distribution Width CV 13.8 % (11.6-14.6); RBC Distribution Width SD 46.4 fl (35.1-43.9); Red Blood Count 4.28 M/mm3 (4.2-5.4); White Blood Count 12.8 K/mm3 (4.4-11.0)
[2022-12-05] MEDS: 0.9% Normal Saline (500mL Bag) 500 ML 1000 ML IV (17:29)
--- NOTE | 2022-12-05 17:35 | CT_ITS ---
STUDY: CT BRAIN WITHOUT CONTRAST REASON FOR EXAM: Female, 87 years old. head trauma RADIATION DOSAGE (If Supplied By Facility): CTDIvol = ( 44.99 ) mGy, DLP = ( 812.98 ) mGycm TECHNIQUE: Transaxial CT imaging of the brain was performed without administration of intravenous contrast material. Individualized dose optimization techniques were used for this CT. COMPARISON: December 04, 2022 FINDINGS: Normal soft tissue structures. Normal calvarium. Slightly prominent ventricles and extra-axial spaces with mild atrophy. Bilateral white matter microangiopathic ischemic changes of the cerebral hemispheres. Normal basal ganglia and thalami. Normal brainstem. Stable small old infarct in the right cerebellum. There is no intracranial hemorrhage. There are no findings of an acute ischemic infarction. Normal visualized paranasal sinuses. CT/Brain/Head without Contrast IMPRESSION: No acute intracranial pathology of the brain. Electronically Signed: Morales Rivera DO at 18:13 EDT Reading Location ID and State: [facility] / [place] Tel [phone], Service support ,
[2022-12-05 17:36] LABS: International Normalized Ratio 1.2; Prothrombin Time (Protime)PT. 15.5 SECONDS (11.7-14.9)
--- NOTE | 2022-12-05 17:37 | RAD_ITS ---
INDICATION: cough EXAMINATION/TECHNIQUE: X-RAY - XR Chest 1 View COMPARISON: November 30, 2022 FINDINGS: LINES/DEVICES: Stable sternotomy wires. LUNGS: No consolidation, edema or effusion. Left pulmonary granulomas. Left basilar atelectasis. No pneumothorax. MEDIASTINUM AND CARDIOVASCULAR STRUCTURES: Cardiac silhouette not enlarged. Central airways and mediastinal contour are unremarkable. BONES AND SOFT TISSUES: Unremarkable. RAD/Chest 1 View (Portable) IMPRESSION: Left basilar atelectasis. Electronically Signed: Morales Rivera DO at 18:28 EDT ,
--- NOTE | 2022-12-05 17:39 | ED.VIS.FALL ---
HPI HPI - Fall History of Present Illness Chief Complaint: Head Injury Informant: patient and spouse/S.O. Narrative Narrative: Patient is an 87-year-old female with history of heart failure with preserved ejection fraction, paroxysmal atrial fibrillation (on long-term Coumadin therapy), CKD, diabetes mellitus type 2 (unsure what recent blood sugars have been), chronic respiratory failure that wears 2 L of oxygen at night and with exertion. She is presenting with increased weakness, worsening balance and increased confusion. at the bedside. He states he can even get her up to go to the bathroom now. He is interested in finding her placement at [facility] because he does not think she is safe at home anymore. Of note patient was seen in our ER 2 nights ago for a fall. She tells me she does not know how she fell but apparently she fell in her kitchen. She did sustain forehead laceration requiring suture repair. Her symptoms have been worse since this fall per the . She is also complained of significant headache since the fall. Patient was subtherapeutic on her Coumadin at her last ER visit [facility] Medical History (Updated 12/06/22 @ 01:[address] Hortencia Prado, DO) (HFpEF) heart failure with preserved ejection fraction Acute on chronic heart failure with preserved ejection fraction (HFpEF) Ambulates with cane Angina pectoris Arthritis Atherosclerotic heart disease of [place] coronary artery without angina pectoris Atrial fibrillation Back pain Broken ribs CAD (coronary artery disease) CAD (coronary artery disease) Cardiology follow-up encounter Carotid stenosis, left Chest pain Chronic anticoagulation Chronic renal failure, stage 3 (moderate) Congestive heart failure Coronary artery disease CPAP (continuous positive airway pressure) dependence Debility Diabetes Diabetes mellitus, type 2 Dietary restriction Difficulty swallowing Easy bruising Essential hypertension Fatigue Fibromyalgia GERD (gastroesophageal reflux disease) High cholesterol History of atrial fibrillation History of CHF (congestive heart failure) History of coronary artery disease History of echocardiogram History of pain when walking History of renal disease History of stress test History of stroke Hypertension Hypertension Hypothyroidism Insulin dependent diabetes mellitus Intertrigo 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 Lower GI bleeding Lumbosacral radiculopathy Microalbuminuria Migraine headache New onset atrial fibrillation Non-smoker Obstructive sleep apnea Osteoarthritis of left knee Other [facility] (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 PAF (paroxysmal atrial fibrillation) Post-menopausal Presence of stent in coronary artery (~12/11/18) Pulmonary HTN Pure hypercholesterolemia Renal cancer Shortness of breath on exertion Sleep apnea Stroke/cerebrovascular accident Thyroid disease Vertigo Wears hearing aid Home Medications aspirin 81 mg tablet,delayed release (Adult Low Dose Aspirin) 81 mg PO DAILY heart health 01/01/19 [History Last Taken 07/18/22] oxybutynin chloride 10 mg tablet,extended release 24 hr 10 mg PO DAILY BLADDER 03/23/19 [History Last Taken 07/18/22] levothyroxine 50 mcg tablet 50 mcg PO DAILY thyroid 05/10/20 [History Last Taken 07/18/22] cholecalciferol (vitamin D3) 25 mcg (1,000 unit) capsule (Vitamin D3) 25 mcg PO QODAY vitamin 06/20/21 [History Last Taken 07/17/22] duloxetine 30 mg capsule,delayed release 30 mg PO DAILY 02/28/22 [History Last Taken 07/18/22] diphenhydramine 25 mg-acetaminophen 500 mg tablet (Tylenol PM Extra Strength) 1 tab PO QHS 04/18/22 [History Last Taken Unknown] insulin lispro 100 unit/mL subcutaneous pen (Humalog KwikPen (U-100) Insulin) 27 unit subcut TID PRN PRN SLIDING SCALE 05/23/22 [History Last Taken 07/18/22] insulin glargine 100 unit/mL (3 mL) subcutaneous pen (Lantus Solostar U-100 Insulin) 27 unit subcut QPM 06/06/22 [History Last Taken 07/17/22] atorvastatin 40 mg tablet 40 mg PO QHS cholesterol #90 tabs 08/20/22 [Rx Last Taken Unknown] furosemide 40 mg tablet 40 mg PO .COMPLEX #180 tabs 08/20/22 [Rx Last Taken Unknown] hydralazine 100 mg tablet 100 mg PO TID #270 tabs 08/20/22 [Rx Last Taken Unknown] nitroglycerin 0.4 mg sublingual tablet 0.4 mg sublingual Q5M PRN chest pain #25 tabs 08/20/22 [Rx Last Taken Unknown] warfarin 4 mg tablet 4 mg PO .COMPLEX #180 tabs 08/20/22 [Rx Last Taken Unknown] gabapentin 300 mg capsule 600 mg PO TID nerve pain 11/01/22 [History Last Taken Unknown] isosorbide mononitrate 60 mg tablet,extended release 24 hr 60 mg PO BID #180 tabs 11/01/22 [Rx Last Taken Unknown] metoprolol tartrate 50 mg tablet 50 mg PO BID #180 tabs 11/04/22 [Rx Last Taken Unknown] flash glucose scanning reader ([employer] Jong [employer]) #1 ea 11/08/22 [Rx Last Taken Unknown] ranolazine 500 mg tablet,extended release,12 hr 500 mg PO Q12H 12/05/22 [History Last Taken Unknown] Allergy/AdvReac Type Severity Reaction Status Date / Time latex Allergy Rash Verified 12/05/22 16:14 adhesive tape AdvReac Rash Verified 12/05/22 16:14 ticagrelor [From Brilinta] AdvReac Shortness Verified 12/05/22 16:14 of breath Family History Father Heart disease Mother Breast cancer Diabetes Heart disease Surgical History H/O hemorrhoidectomy History of appendectomy History of arthroscopic knee surgery History of back surgery History of cardiac catheterization History of cholecystectomy History of coronary artery bypass graft x 3 (~04/08/16) History of coronary artery stent placement History of hysterectomy History of knee replacement procedure of right knee History of right and left heart catheterization (LHC) (~08/10/19) History of right inguinal hernia repair Hx of CABG Hx of hand surgery Postlaminectomy syndrome of lumbar region Presence of coronary angioplasty implant and graft (~12/11/18) Social History household members: spouse housing: house Smoking Status: Never smoker alcohol intake: never substance use type: does not use caffeine: No ROS ROS ED Constitutional Constitutional ED: Denies chills or fever(s) Eyes Eyes: Denies change in vision ENT ENT ED: Denies sore throat Cardiovascular Cardiovascular: Denies chest pain Respiratory/Chest Respiratory/Chest: Reports dyspnea on exertion; Denies cough Gastrointestinal Gastrointestinal: Denies abdominal pain, nausea or vomiting Genitourinary Genitourinary ED: Reports urinary frequency; Denies dysuria Musculoskeletal Musculoskeletal: Reports arthralgias and myalgias Integumentary Reports other Details: right forehead laceration Neurologic Neurologic: Reports headache(s) and weakness; Denies paresthesias Hematologic/Lymphatic Hematologic/Lymphatic: Reports easy bleeding and easy bruising EXAM Physical Exam Const Vital Signs: 12/05/22 16:14 12/05/22 16:19 12/05/22 16:23 Temperature 97 F L Temperature Source Temporal Pulse Rate 71 Respiratory Rate 18 Respiratory Effort Normal Non-Labored Respiratory Depth Normal Respiratory Pattern Normal Blood Pressure 176/89 H Blood Pressure Mean 118 Pulse Ox 91 87 Oxygen Delivery Method Room Air Room Air Oxygen Flow Rate (L/min) 12/05/22 16:23 12/05/22 18:53 Temperature Temperature Source Pulse Rate 68 Respiratory Rate 18 Respiratory Effort Respiratory Depth Respiratory Pattern Blood Pressure 152/57 H Blood Pressure Mean 88 Pulse Ox 91 95 Oxygen Delivery Method Nasal Cannula Room Air Oxygen Flow Rate (L/min) 2 Positive well nourished and well developed General Appearance ED: well developed and NAD HEENT Reports TM's normal bilaterally HEENT Narrative: Right upper forehead laceration with [address]. Appears to be healing appropriately with no secondary signs of infection. Very dry mucosal membranes trauma Eyes PERRL and EOMs intact bilaterally Neck full ROM and supple Chest Wall inspection of chest normal and palpation of chest normal Resp normal respiratory effort Resp Narrative: Mildly diminished breath sounds throughout Cardio regular rate, regular rhythm and no murmurs GI non-tender and non-distended Extremity Extremity Narrative: No deformity or injury of the extremities appreciated Neuro moves all extremities, no focal motor deficits and no sensory deficits noted Sensorium / Orientation: oriented to person and oriented to place Motor Exam: general weakness Psych mental status grossly normal and thought process normal Skin Skin Narrative: Right upper forehead laceration?healing, see above Trauma: laceration MDM MDM MDM Narrative Medical decision making narrative: Patient presents with worsening balance, confusion and difficulty with ADLs after a fall that occurred 2 days ago. She sustained a head laceration. At that time she did have a CT of her brain which was negative and received laceration repair. Laceration is healing well. She is off any focal neurologic deficits. also reports that she has had a general decline and they are interested in placement at [facility]. Clinically patient appears dehydrated. She is a mild leukocytosis of 12.8 which is nonspecific and there is no obvious source of infection. Urinalysis is probably more consistent with contamination will be sent for culture. Her blood glucose is elevated at 528 with a normal anion gap and normal bicarb. Acetone and VBG are added on which are not consistent with DKA or decompensated hyperglycemia. Patient is given 500 cc bolus that she does have a history of heart failure. In addition she is still subtherapeutic on her INR with level of 1.2. She does not complain of any acute respiratory symptoms and I have a low suspicion for acute stroke or pulmonary emboli/sequelae of embolic disease. Patient does have an elevation of her creatinine of 2.66.Her creatinine was 1.41 a week ago and I suspect she has acute dehydration/SHA however it does look like patient is prone to this does have fluctuations of her kidney function. Urinalysis is most consistent with contamination but does show rare bacteria and 5-10 white blood cells. We will send for culture but defer treatment at this time. Patient and do not feel that she is safe to go home and I am inclined to agree with this. She will be admitted for further medical evaluation and IV fluids. She is given 10 units of insulin in the ER as well. Case is discussed with my physician, Dr. Liu. Patient continues to complain of headache in the ER. She is given Tylenol with no improvement. Is then given a dose of fentanyl with improvement of headache. Differential includes delayed intracranial hemorrhage, encephalopathy, concussion, urinary tract infection, DKA, poorly controlled diabetes mellitus with hyperglycemia, SHA History & Record Review Discussion w/independent historian: Patient and Significant other Lab Data Attestation: I reviewed the patient's lab results. Labs: Laboratory Results - last 24 hr 12/05/22 12/05/22 12/05/22 17:10 18:06 19:15 WBC 12.8 H RBC 4.28 Hgb 12.7 Hct 39.3 MCV 91.8 MCH 29.7 MCHC 32.3 RDW Std Deviation 46.4 H RDW Coeff of Laquita 13.8 Plt Count 186 MPV 12.5 H Immature Gran % (Auto) 0.500 Neut % (Auto) 79.9 H Lymph % (Auto) 10.6 L Douglas % (Auto) 7.8 Eos % (Auto) 0.9 Baso % (Auto) 0.3 Absolute Neuts (auto) 10.2 H Absolute Lymphs (auto) 1.36 Nucleated RBC % 0 PT 15.5 H INR 1.2 Sodium 130 L Potassium 4.2 Chloride 95 L Carbon Dioxide 24.0 Anion Gap 11 BUN 58 H Creatinine 2.66 H Estim Creat Clear Calc 12.79 Est GFR (MDRD) Af Amer 22 L Est GFR (MDRD) Non-Af 18 L BUN/Creatinine Ratio 21.8 H Glucose 528 H* Calcium 8.9 Lipase < 10 L Urine Color Yellow Urine Clarity Clear Urine pH 6.0 Ur Specific Reading 1.030 Urine Protein 30 H Urine Glucose (UA) 1000 H Urine Ketones Negative Urine Occult Blood Negative Urine Nitrite Negative Urine Bilirubin Negative Urine Urobilinogen Normal Ur Leukocyte Esterase 100 H Urine RBC 0 SEEN Urine WBC 5-10 SEEN Ur Squamous Epith Cells 0-5 SEEN Urine Bacteria RARE Urine Mucus 0 SEEN Urine Yeast 1+ Acetone Level NEGATIVE POC Glucose 462 H* ABG Data ABG results: ABG 12/05/22 18:12 Specimen Type JUAN ALBERTO Sample Site Not entered O2 % 2.0 VBG pH 7.36 VBG pO2 35 VBG HCO3 24 VBG Total CO2 26 VBG O2 Sat (Calc) 65 VBG Base Excess -1 POC Mix VBG pCO2 Pt Tmp 42.7 O2 Delivery Device Cannula Radiography Chest X-Ray - ED: 1 View, Read by ED Physician, Read by Radiologist and No Acute Disease Diagnostic Testing: Clinical Impression(s) from Imaging Studies Brain CT 12/05/22 17:35 IMPRESSION: No acute intracranial pathology of the brain. Electronically Signed: Morales Rivera DO at 18:13 EDT , Chest X-Ray 12/05/22 17:37 IMPRESSION: Left basilar atelectasis. Electronically Signed: Morales Rivera DO at 18:28 EDT , Rhythm Strip Rhythm Strip: Sinus Rhythm Rate: 69 Ectopy: None EKG Initial EKG: Attestation: I personally reviewed and interpreted this EKG as follows: Interpretation: Sinus Rhythm Comments: Normal sinus rhythm at a rate of 69 bpm Normal axis Normal intervals Nonspecific ST and T wave changes Prior EKG tracings: available for review Prior: Unchanged Differential Diagnosis Differential Diagnosis: Delayed bleed, intracranial hemorrhage Why less likely: No evidence on imaging Discharge Plan Dx/Rx/DC Orders Clinical Impression: SHA (acute kidney injury), Hyperglycemia due to diabetes mellitus, Debility, Dehydration, Headache, Subtherapeutic international normalized ratio (INR) Disposition Disposition: Acute Care Hospital [facility] Discharge Date/Time: 12/05/22 22:21
[2022-12-05 17:46] LABS: Anion Gap 11 (5-15); BUN 58 mg/dL (7-18); BUN/Creat Ratio 21.8 RATIO (10-20); Calcium,Total 8.9 mg/dL (8.5-10.1); Chloride 95 mmol/L (98-107); Creatinine, Serum 2.66 mg/dL (0.55-1.02); EST Glomerular Filtration Rate 18 mL/min (>60); Est Glom Filt Rate - Afr Amer 22 mL/min (>60); Estimated Creatinine Clearance 12.79 ml/min; Glucose 528 mg/dL (74-106); Lipase < 10 U/L (13-75); Potassium 4.2 mmol/L (3.5-5.1); Sodium Level 130 mmol/L (136-145)
[2022-12-05 18:16] LABS: Blood Gas Specimen Type VEN; O2 Delivery Device Cannula; SITE Not entered; VBG BASE EXCESS -1 mmol/L (-1.0-3.5); VBG Bicarbonate 24 mmol/L (22-26); VBG PO2 35 mmHg (25-40); VBG SO2 65 % (50-70); VBG TCO2 26 mmol/L (23-33); VBG pCO2 42.7 mmHg (41-51); VBG pH 7.36 (7.32-7.42)
[2022-12-05] MEDS: fentaNYL 100 MCG/2 ML Ampul 25 MCG IV (18:26)
[2022-12-05] MEDS: 0.9% Normal Saline (1000mL) 1,000 ML 100 ML IV (19:16)
[2022-12-05 19:22] LABS: Mucous, Urine 0 SEEN /hpf (<or=2+); Red Blood Cells-Urine 0 SEEN /hpf (0-5)
[2022-12-05 19:23] LABS: Color, Urine Yellow (Yellow); Glucose, Dipstick 1000 mg/dl (Normal); Ketone-Dipstick Negative (Negative); Leukocyte Esterase-Dipstick 100 /ul (Negative); Nitrite-Dipstick Negative (Negative); Occult Blood-Urine Negative /ul (Negative); Protein-Dipstick 30 mg/dl (Negative); Urine Bilirubin Dipstick Negative (Negative); Urine Clarity Clear (Clear); Urine Urobilinogen Normal (Normal)
[2022-12-05 19:30] LABS: White Blood Cells 5-10 SEEN /hpf (0-5); Yeast-Urine 1+ /hpf (None Seen)
[2022-12-05 19:31] LABS: Bacteria RARE /hpf (None Seen); Squamous Epithelial Cells - UA 0-5 SEEN /hpf (5-10)
[2022-12-05 19:32] LABS: Bedside Glucose 462 mg/dL (74-106)
--- NOTE | 2022-12-05 19:50 | PCM.HP.STD ---
[facility] - General General Date of Admission: 12/05/22 Date of Service: 12/05/22 Chief Complaint: Weakness HPI Narrative GLORIA PAUL, is a 87 F with a significant history of hypertension; CAD and diabetes mellitus who presents to the emergency department with weakness. Of note patient fell 2 days before presentation. With her fall she hit her head real hard She came to the hospital and had 5 sutures placed. Patient lives with her . And per he is unable to help since patient is too weak. Patient is very weak. Earlier on the day of presentation patient slept reportedly all day. Plans were be made for patient to be admitted to [facility] but with her fall patient has been to with the family is looking to get her placed earlier. Of note patient has Dexcom for insulin monitoring but she is not able to manage. At the emergency department her blood glucose was found to be severely high. Patient admits to not drinking enough water. She denies any urinary symptoms. She complains of headache and pain in her legs. REPLACED BY [facility] Medical History (HFpEF) heart failure with preserved ejection fraction Acute on chronic heart failure with preserved ejection fraction (HFpEF) Ambulates with cane Angina pectoris Arthritis Atherosclerotic heart disease of [place] coronary artery without angina pectoris Atrial fibrillation Back pain Broken ribs CAD (coronary artery disease) CAD (coronary artery disease) Cardiology follow-up encounter Carotid stenosis, left Chest pain Chronic anticoagulation Chronic renal failure, stage 3 (moderate) Congestive heart failure Coronary artery disease CPAP (continuous positive airway pressure) dependence Debility Diabetes Diabetes mellitus, type 2 Dietary restriction Difficulty swallowing Easy bruising Essential hypertension Fatigue Fibromyalgia GERD (gastroesophageal reflux disease) High cholesterol History of atrial fibrillation History of CHF (congestive heart failure) History of coronary artery disease History of echocardiogram History of pain when walking History of renal disease History of stress test History of stroke Hypertension Hypertension Hypothyroidism Insulin dependent diabetes mellitus Intertrigo Kidney disease FPC current use of anticoagulant Lower GI bleeding Lumbosacral radiculopathy Microalbuminuria Migraine headache New onset atrial fibrillation Non-smoker Obstructive sleep apnea Osteoarthritis of left knee Other care home (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 PAF (paroxysmal atrial fibrillation) Post-menopausal Presence of stent in coronary artery (~12/11/18) Pulmonary HTN Pure hypercholesterolemia Renal cancer Shortness of breath on exertion Stroke/cerebrovascular accident Thyroid disease Vertigo Wears hearing aid Home Medications aspirin 81 mg tablet,delayed release (Adult Low Dose Aspirin) 81 mg PO DAILY heart health 01/01/19 [History Last Taken 07/18/22] oxybutynin chloride 10 mg tablet,extended release 24 hr 10 mg PO DAILY BLADDER 03/23/19 [History Last Taken 07/18/22] levothyroxine 50 mcg tablet 50 mcg PO DAILY thyroid 05/10/20 [History Last Taken 07/18/22] cholecalciferol (vitamin D3) 25 mcg (1,000 unit) capsule (Vitamin D3) 25 mcg PO QODAY vitamin 06/20/21 [History Last Taken 07/17/22] duloxetine 30 mg capsule,delayed release 30 mg PO DAILY 02/28/22 [History Last Taken 07/18/22] diphenhydramine 25 mg-acetaminophen 500 mg tablet (Tylenol PM Extra Strength) 1 tab PO QHS 04/18/22 [History Last Taken Unknown] insulin lispro 100 unit/mL subcutaneous pen (Humalog KwikPen (U-100) Insulin) 27 unit subcut TID PRN PRN SLIDING SCALE 05/23/22 [History Last Taken 07/18/22] insulin glargine 100 unit/mL (3 mL) subcutaneous pen (Lantus Solostar U-100 Insulin) 27 unit subcut QPM 06/06/22 [History Last Taken 07/17/22] atorvastatin 40 mg tablet 40 mg PO QHS cholesterol #90 tabs 08/20/22 [Rx Last Taken Unknown] furosemide 40 mg tablet 40 mg PO .COMPLEX #180 tabs 08/20/22 [Rx Last Taken Unknown] hydralazine 100 mg tablet 100 mg PO TID #270 tabs 08/20/22 [Rx Last Taken Unknown] nitroglycerin 0.4 mg sublingual tablet 0.4 mg sublingual Q5M PRN chest pain #25 tabs 08/20/22 [Rx Last Taken Unknown] warfarin 4 mg tablet 4 mg PO .COMPLEX #180 tabs 08/20/22 [Rx Last Taken Unknown] gabapentin 300 mg capsule 600 mg PO TID nerve pain 11/01/22 [History Last Taken Unknown] isosorbide mononitrate 60 mg tablet,extended release 24 hr 60 mg PO BID #180 tabs 11/01/22 [Rx Last Taken Unknown] metoprolol tartrate 50 mg tablet 50 mg PO BID #180 tabs 11/04/22 [Rx Last Taken Unknown] flash glucose scanning reader ([employer] [place]) #1 ea 11/08/22 [Rx Last Taken Unknown] ranolazine 500 mg tablet,extended release,12 hr 500 mg PO Q12H 12/05/22 [History Last Taken Unknown] Allergy/AdvReac Type Severity Reaction Status Date / Time latex Allergy Rash Verified 12/05/22 16:14 adhesive tape AdvReac Rash Verified 12/05/22 16:14 ticagrelor [From Brilinta] AdvReac Shortness Verified 12/05/22 16:14 of breath Family History Father Heart disease Mother Breast cancer Diabetes Heart disease Surgical History H/O hemorrhoidectomy History of appendectomy History of arthroscopic knee surgery History of back surgery History of cardiac catheterization History of cholecystectomy History of coronary artery bypass graft x 3 (~04/08/16) History of coronary artery stent placement History of hysterectomy History of knee replacement procedure of right knee History of right and left heart catheterization (LHC) (~08/10/19) History of right inguinal hernia repair Hx of CABG Hx of hand surgery Postlaminectomy syndrome of lumbar region Presence of coronary angioplasty implant and graft (~12/11/18) Social History household members: spouse housing: house Smoking Status: Never smoker alcohol intake: never substance use type: does not use caffeine: No ROS ROS Narrative Pertinent positives and pertinent negatives as noted in HPI. All other systems were reviewed and are negative Vital Signs Vital Signs Vital Signs: 12/05/22 16:14 12/05/22 16:19 12/05/22 16:23 Temperature 97 F L Temperature Source Temporal Pulse Rate 71 Respiratory Rate 18 Respiratory Effort Normal Non-Labored Respiratory Depth Normal Respiratory Pattern Normal Blood Pressure 176/89 H Blood Pressure Mean 118 Pulse Ox 91 87 Oxygen Delivery Method Room Air Room Air Oxygen Flow Rate (L/min) 12/05/22 16:23 12/05/22 18:53 Temperature Temperature Source Pulse Rate 68 Respiratory Rate 18 Respiratory Effort Respiratory Depth Respiratory Pattern Blood Pressure 152/57 H Blood Pressure Mean 88 Pulse Ox 91 95 Oxygen Delivery Method Nasal Cannula Room Air Oxygen Flow Rate (L/min) 2 Weight Weight: 78.5 kg Body Mass Index (BMI) 30.7 Physical Exam Narrative Physical exam: General: Well-nourished, well-developed. Head: Normocephalic, 5 sutures at right side of forehead; supraorbitally Eyes: Vision is grossly intact. EOMI ENT, no trauma, dry mucous membranes, no rhinorrhea Neck: Nontender, No thyromegaly. CVS: Regular rate and rhythm. S1-S2 present. No murmur, gallop or rub. Respiratory : clear to auscultation bilaterally, chest wall nontender Abdomen: Soft, nontender, nondistended, normal bowel sounds, no masses : Deferred Back: Nontender, no CVA tenderness. Extremities: Nontender full range of motion, no trauma Skin: Normal color, no trauma, abrasions Neuro: Alert, oriented, cranial nerves II through XII grossly intact. Psychiatry: Normal mood. Normal affect. Not depressed. Not anxious. Results Lab / Micro Data 12/05/22 17:10 12/05/22 17:10 Labs: Laboratory Results - last 24 hr 12/05/22 17:10: WBC 12.8 H, RBC 4.28, Hgb 12.7, Hct 39.3, MCV 91.8, MCH 29.7, MCHC 32.3, RDW Std Deviation 46.4 H, RDW Coeff of Laquita 13.8, Plt Count 186, MPV 12.5 H, Immature Gran % (Auto) 0.500, Neut % (Auto) 79.9 H, Lymph % (Auto) 10.6 L, [place] % (Auto) 7.8, Eos % (Auto) 0.9, Baso % (Auto) 0.3, Absolute Neuts (auto) 10.2 H, Absolute Lymphs (auto) 1.36, Nucleated RBC % 0, PT 15.5 H, INR 1.2, Sodium 130 L, Potassium 4.2, Chloride 95 L, Carbon Dioxide 24.0, Anion Gap 11, BUN 58 H, Creatinine 2.66 H, Estim Creat Clear Calc 12.79, Est GFR (MDRD) Af Amer 22 L, Est GFR (MDRD) Non-Af 18 L, BUN/Creatinine Ratio 21.8 H, Glucose 528 H*, Calcium 8.9, Lipase < 10 L 12/05/22 18:06: Acetone Level NEGATIVE 12/05/22 19:15: Urine Color Yellow, Urine Clarity Clear, Urine pH 6.0, Ur Specific [place] 1.030, Urine Protein 30 H, Urine Glucose (UA) 1000 H, Urine Ketones Negative, Urine Occult Blood Negative, Urine Nitrite Negative, Urine Bilirubin Negative, Urine Urobilinogen Normal, Ur Leukocyte Esterase 100 H, Urine RBC 0 SEEN, Urine WBC 5-10 SEEN, Ur Squamous Epith Cells 0-5 SEEN, Urine Bacteria RARE, Urine Mucus 0 SEEN, Urine Yeast 1+, POC Glucose 462 H* ABG Data ABG results: ABG 12/05/22 18:12 Specimen Type JUAN ALBERTO Sample Site Not entered O2 % 2.0 VBG pH 7.36 VBG pO2 35 VBG HCO3 24 VBG Total CO2 26 VBG O2 Sat (Calc) 65 VBG Base Excess -1 POC Mix VBG pCO2 Pt Tmp 42.7 O2 Delivery Device Cannula Radiology Impression Brain CT 12/05/22 17:35 IMPRESSION: No acute intracranial pathology of the brain. Electronically Signed: Morales Rivera DO at 18:13 EDT , Chest X-Ray 12/05/22 17:37 IMPRESSION: Left basilar atelectasis. Electronically Signed: Morales Rivera DO at 18:28 EDT , Assessment & Plan Assessment/Plan (1) Fall: QUALIFIERS: Encounter type: subsequent encounter Qualified Code(s): W19.XXXD - Unspecified fall, subsequent encounter (2) CKD (chronic kidney disease) stage 4, GFR 15-29 ml/min: (3) Debility: (4) Hypercoagulable state due to atrial fibrillation: QUALIFIERS: Atrial fibrillation type: paroxysmal Qualified Code(s): D68.69 - Other thrombophilia; I48.0 - Paroxysmal atrial fibrillation PLAN: Plan Debility with recent fall. Impression of chest x-ray by radiology. Left basilar atelectasis. Upon interpretation of EKG by myself: Agrees with radiology interpretation. Patient with no hypoxia. Repeat brain CT on this presentation did not show any acute intracranial pathology. PT and OT to work with patient. Case management consult. Vitamin D level. 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 Baseline creatinine of around 1.7. Creatinine on admission was 2.66 BUN on presentation was 58. BUN is the highest so far on file. Gentle IV hydration. Avoid nephrotoxins. Of note patient's Lasix will be held. Gabapentin will be reduced in dosage. Patient with hyperglycemia on presentation Basal continued. Prandial insulin ordered Monitor Accu-Cheks Correction scale insulin ordered. History of atrial fibrillation EKG on presentation showed sinus rhythm with Q waves. EKG was personally interpreted by myself. Hypertension Blood pressure is not within goal Home blood pressure medication continued. As needed hydralazine ordered. Trend blood pressure and adjust blood pressure medications. Leukocytosis CBC on presentation was 12.8. Likely reactive. Trend. A-fib/ hypercoagulable state secondary to A-fib INR is subtherapeutic. Escalate dose of Coumadin. Bridging with heparin was considered. However with recent head injury without bleeding will not bridge with heparin. Case was discussed extensively with emergency department doctor Dr. Hortencia Prado and patient was accepted on observation status. Time spent in the patient's overall evaluation,decision-making process, review of diagnostic data, adjustment of management, discussion with other providers, nursing and ancillary staff involved in patient's care documentation, 70 minutes. Charges/Coding Visit Charges Inpatient E&M: 42208 Init Hosp L3
[2022-12-05] MEDS: Insulin Lispro 100 UNIT/ML INSULN.PEN 10 UNIT SC (20:38)
[2022-12-05] MEDS: hydrALAZINE 50 MG Tablet 100 MG PO (23:45)
[2022-12-05] MEDS: Insulin Lispro 100 UNIT/ML INSULN.PEN SC (23:46)
[2022-12-05] MEDS: Isosorbide Mononitrate 60 MG Tablet PO (23:47)
[2022-12-05] MEDS: Lactated Ringers 1,000 ML 75 ML IV (23:47)
[2022-12-05] MEDS: Insulin Glargine-YFGN 100 UNIT/ML Pen 27 UNIT SC (23:47)
[2022-12-05] MEDS: Atorvastatin Calcium 40 MG Tablet PO (23:48)
[2022-12-05] MEDS: Metoprolol Tartrate 50 MG Tablet PO (23:48)
[2022-12-05] MEDS: Ranolazine 500 MG Tablet PO (23:49)
[2022-12-05] MEDS: Gabapentin 300 MG Capsule PO (23:57)
[2022-12-06] VITALS (12 sets, daily range): BP systolic 120–146; BP diastolic 55–65; PULSE 70–91; RESP 16–18; TEMP 36.5–36.8; O2SAT 93–97
[2022-12-06 00:12] LABS: Bedside Glucose 221 mg/dL (74-106)
[2022-12-06] MEDS: hydrALAZINE 50 MG Tablet 100 MG PO ×3 (06:28→21:56)
[2022-12-06] MEDS: Gabapentin 300 MG Capsule PO ×3 (06:29→21:55)
[2022-12-06] MEDS: Levothyroxine 50 MCG Tablet PO (06:30)
[2022-12-06 07:38] LABS: Absolute Neutrophil Count 6.5 X10^3/uL (2.0-7.7); Basophil# 0.04 X10^3/uL; Basophil% 0.4 % (0-1); Eosinophil# 0.31 X10^3/uL; Eosinophils% 3.2 % (0-5); Hematocrit 33.7 % (37-47); Hemoglobin 10.8 g/dL (12.0-15.0); Lymphocyte % 17.8 % (19-41); Mean Corpuscular Volume 93.6 fL (81-99); Mean Platelet Vol. 12.8 fl (6.2-12.0); Monocyte# 0.95 X10^3/uL; NRBC Flagged by Analyzer 0 % (0-5); Neutrophil % 68.2 % (47-70); Platelet Count 176 K/mm3 (150-450); RBC Distribution Width CV 13.9 % (11.6-14.6); RBC Distribution Width SD 47.5 fl (35.1-43.9); White Blood Count 9.5 K/mm3 (4.4-11.0)
[2022-12-06 08:06] LABS: International Normalized Ratio 1.4; Prothrombin Time (Protime)PT. 17.2 SECONDS (11.7-14.9)
[2022-12-06 08:18] LABS: Anion Gap 4 (5-15); BUN 49 mg/dL (7-18); BUN/Creat Ratio 24.7 RATIO (10-20); Calcium,Total 8.5 mg/dL (8.5-10.1); Chloride 105 mmol/L (98-107); Creatinine, Serum 1.98 mg/dL (0.55-1.02); EST Glomerular Filtration Rate 25 mL/min (>60); Est Glom Filt Rate - Afr Amer 31 mL/min (>60); Estimated Creatinine Clearance 17.18 ml/min; Glucose 220 mg/dL (74-106); Potassium 3.2 mmol/L (3.5-5.1); Sodium Level 134 mmol/L (136-145)
[2022-12-06] MEDS: DULoxetine Hcl 30 MG Capsule PO (09:31)
[2022-12-06] MEDS: Aspirin E.C. 81 MG Tablet PO (09:31)
[2022-12-06] MEDS: Tolterodine Tartrate 2 MG CAP.SA PO (09:32)
[2022-12-06] MEDS: Isosorbide Mononitrate 60 MG Tablet PO (09:32)
[2022-12-06] MEDS: Lactated Ringers 1,000 ML 75 ML IV (09:33)
[2022-12-06] MEDS: Flu Vacc QS2023-24(65YR UP)/PF 240 MCG/0.7 ML Syringe IM (09:33)
[2022-12-06] MEDS: Insulin Lispro 100 UNIT/ML INSULN.PEN SC ×4 (09:37→22:08)
[2022-12-06] MEDS: Insulin Lispro 100 UNIT/ML INSULN.PEN 6 UNIT SC ×3 (09:37→17:15)
--- NOTE | 2022-12-06 10:08 | PCM.PN.HOSP ---
Subjective Subjective Resting comfortably, no issues overnight Objective Data Objective Data Vital Signs: Vital Signs Temp Pulse Resp BP Pulse Ox O2 Del Method O2 Flow Rate 98.2 F 90 18 134/55 H 94 Nasal Cannula 4 12/06/22 09:21 12/06/22 09:21 12/06/22 09:21 12/06/22 09:21 12/06/22 04:30 12/06/22 09:21 12/06/22 09:21 Oxygen Flow Rate (L/min) 4 Oxygen Delivery Method Nasal Cannula Weight: 150 lb 2.157 oz Body Mass Index (BMI) 26.6 Intake & Output: Intake and Output for Last 24 Hours 12/05/22 12/06/22 12/07/22 03:59 03:59 03:59 Intake Total 500 / 500 1732.5 / 1732.5 Balance 500 / 500 1732.5 / 1732.5 Lab / Micro Data 12/06/22 06:13 12/06/22 06:13 Labs: Laboratory Results - last 24 hr 12/05/22 17:10: WBC 12.8 H, RBC 4.28, Hgb 12.7, Hct 39.3, MCV 91.8, MCH 29.7, MCHC 32.3, RDW Std Deviation 46.4 H, RDW Coeff of Laquita 13.8, Plt Count 186, MPV 12.5 H, Immature Gran % (Auto) 0.500, Neut % (Auto) 79.9 H, Lymph % (Auto) 10.6 L, [place] % (Auto) 7.8, Eos % (Auto) 0.9, Baso % (Auto) 0.3, Absolute Neuts (auto) 10.2 H, Absolute Lymphs (auto) 1.36, Nucleated RBC % 0, PT 15.5 H, INR 1.2, Sodium 130 L, Potassium 4.2, Chloride 95 L, Carbon Dioxide 24.0, Anion Gap 11, BUN 58 H, Creatinine 2.66 H, Estim Creat Clear Calc 12.79, Est GFR (MDRD) Af Amer 22 L, Est GFR (MDRD) Non-Af 18 L, BUN/Creatinine Ratio 21.8 H, Glucose 528 H*, Calcium 8.9, Lipase < 10 L 12/05/22 18:06: Acetone Level NEGATIVE 12/05/22 19:15: Urine Color Yellow, Urine Clarity Clear, Urine pH 6.0, Ur Specific [place] 1.030, Urine Protein 30 H, Urine Glucose (UA) 1000 H, Urine Ketones Negative, Urine Occult Blood Negative, Urine Nitrite Negative, Urine Bilirubin Negative, Urine Urobilinogen Normal, Ur Leukocyte Esterase 100 H, Urine RBC 0 SEEN, Urine WBC 5-10 SEEN, Ur Squamous Epith Cells 0-5 SEEN, Urine Bacteria RARE, Urine Mucus 0 SEEN, Urine Yeast 1+, POC Glucose 462 H* 12/05/22 23:39: POC Glucose 221 H 12/06/22 06:13: WBC 9.5, RBC 3.60 L, Hgb 10.8 L, Hct 33.7 L, MCV 93.6, MCH 30.0, MCHC 32.0, RDW Std Deviation 47.5 H, RDW Coeff of Laquita 13.9, Plt Count 176, MPV 12.8 H, Immature Gran % (Auto) 0.400, Neut % (Auto) 68.2, Lymph % (Auto) 17.8 L, [place] % (Auto) 10.0, Eos % (Auto) 3.2, Baso % (Auto) 0.4, Absolute Neuts (auto) 6.5, Absolute Lymphs (auto) 1.70, Nucleated RBC % 0, Sodium 134 L, Potassium 3.2 L, Chloride 105, Carbon Dioxide 25.0, Anion Gap 4 L, BUN 49 H, Creatinine 1.98 H, Estim Creat Clear Calc 17.18, Est GFR (MDRD) Af Amer 31 L, Est GFR (MDRD) Non-Af 25 L, BUN/Creatinine Ratio 24.7 H, Glucose 220 H, Calcium 8.5 12/06/22 07:18: PT 17.2 H, INR 1.4 ABG Data ABG results: ABG 12/05/22 18:12 Specimen Type JUAN ALBERTO Sample Site Not entered O2 % 2.0 VBG pH 7.36 VBG pO2 35 VBG HCO3 24 VBG Total CO2 26 VBG O2 Sat (Calc) 65 VBG Base Excess -1 POC Mix VBG pCO2 Pt Tmp 42.7 O2 Delivery Device Cannula Radiography Diagnostic Testing: Radiology Impression Brain CT 12/05/22 17:35 IMPRESSION: No acute intracranial pathology of the brain. Electronically Signed: Morales Rivera DO at 18:13 EDT , Chest X-Ray 12/05/22 17:37 IMPRESSION: Left basilar atelectasis. Electronically Signed: Morales Rivera, DO at 18:28 EDT , Rhythm Strip Rhythm Strip: Sinus Rhythm Rate: 69 Ectopy: None Physical Exam Narrative General: Alert, Oriented x3, Cooperative, No apparent distress HEENT: Atraumatic, PERRLA, EOMI, Normocephalic Oral: Moist Mucosa Neck: Supple, No JVD Lungs: Diminished, Normal air movement, No rhonchi, No wheeze, No rales Cardiovascular: Regular rate, Regular Rhythm, Normal S1, Normal S2, No murmurs Abdomen: Soft, Non Tender, Non-Distended, No Hepato-splenomegaly Extremities: No edema, Capillary Refill Less than 3 Seconds Skin: Facial laceration on the right forehead Musculoskeletal: No Tenderness to Palpation of Joints or Extremities Neurological: Moves all extremities, Sensory exam intact to light touch and pain Psych/Mental Status: Normal Affect, Appropriate Assessment & Plan Assessment/Plan (1) Fall: QUALIFIERS: Encounter type: subsequent encounter Qualified Code(s): W19.XXXD - Unspecified fall, subsequent encounter (2) CKD (chronic kidney disease) stage 4, GFR 15-29 ml/min: (3) Debility: (4) Hypercoagulable state due to atrial fibrillation: QUALIFIERS: Atrial fibrillation type: paroxysmal Qualified Code(s): D68.69 - Other thrombophilia; I48.0 - Paroxysmal atrial fibrillation PLAN: Plan 1. Debility with weakness and recent fall/SHA on CKD 4 ? Continue with IV fluids ? PT/OT for evaluation ? Consult case management for discharge planning ? We will monitor renal function it is improving 2. HTN/HLD/A-fib/CAD status post CABG and stent/chronic diastolic CHF ? Blood pressure currently stable, can resume her home blood pressure medications ? Continue with her home Lipitor ? We will hold her home Lasix given her SHA and placed on a little bit of fluids ? Continue with Coumadin monitor INRs 3. DM2 with neuropathy ? Accu-Cheks ACHS ? Continue with insulin ? We will monitor adjustments as necessary ? We will dose adjust gabapentin 4. Anxiety/depression ? Stable ? Continue with Cymbalta DVT: Coumadin Charges/Coding Visit Charges Inpatient E&M: 16309 Subs Hosp L2
--- NOTE | 2022-12-06 11:51 | CASEMGMT ---
SW reviewed chart and noted that patient was trying to get to [facility] for rehab. SW spoke with patient and her , Catracho. They both confirmed they would like patient to go to [facility] for rehab. SW let both know SW will work on getting information sent to [facility]. SW explained they will need to wait on insurance to approve patient before patient can go and this may be a day or two. Both verbalized understanding. GI asked Clara d/c vice president planning to please send information to [facility] and ask that they start pre-cert. Plan: d/c to [facility] pending insurance approval. Miriam Cevallos FLYING [employer] INSTRUCTOR RAMANA
--- NOTE | 2022-12-06 11:58 | CASEMGMT ---
Discharge Planning Referral sent via [facility] to [facility]. Clara Grover, Discharge Planning Asst.
[2022-12-06 12:03] LABS: Bedside Glucose 255 mg/dL (74-106)
--- NOTE | 2022-12-06 12:25 | CASEMGMT ---
CC accepted patient and started pre-cert. Plan: [facility] pending insurance approval. Miriam BOLES
[2022-12-06] MEDS: Metoprolol Tartrate 50 MG Tablet PO (12:28)
--- NOTE | 2022-12-06 14:20 | CASEMGMT ---
Addendum entered by Miriam Cevallos 12/06/22 15:55: SW notified patient and her insurance approved patient and she will go tomorrow. Miriam BOLES Addendum entered by Miriam Cevallos 12/06/22 14:50: Patient will be discharged to [facility] tomorrow. SW notified [facility] and will notify patient and her . Plan: d/c to [facility] under skilled level of care on a PASRR. Miriam BOLES Original Note: Insurance approved patient. GI notified physician to see if he will send patient today. Await answer. Miriam BOLES
--- NOTE | 2022-12-06 16:37 | CASEMGMT ---
Met with patient to complete [place] form. [place] form explained to patient who voiced understanding and signed form. Original form placed in pt?s chart and copy provided to?patient. Clara Grover, Discharge Planning Asst.
[2022-12-06 16:53] LABS: Bedside Glucose 157 mg/dL (74-106)
[2022-12-06] MEDS: Ranolazine 500 MG Tablet PO (21:57)
[2022-12-06] MEDS: Atorvastatin Calcium 40 MG Tablet PO (22:01)
[2022-12-06] MEDS: Insulin Glargine-YFGN 100 UNIT/ML Pen 27 UNIT SC (22:08)
[2022-12-06] MEDS: Acetaminophen 500 MG Tablet PO (22:14)
[2022-12-06] MEDS: oxyCODONE 5 MG Tablet PO (22:14)
[2022-12-06 22:28] LABS: Bedside Glucose 231 mg/dL (74-106)
[2022-12-07] VITALS (8 sets, daily range): BP systolic 122–139; BP diastolic 48–101; PULSE 60–79; RESP 16–17; TEMP 36.6–36.9; O2SAT 94–98
[2022-12-07] MEDS: Levothyroxine 50 MCG Tablet PO (06:32)
[2022-12-07] MEDS: Acetaminophen 325 MG Tablet 650 MG PO ×2 (06:37→12:37)
[2022-12-07] MEDS: oxyCODONE 5 MG Tablet PO (06:37)
[2022-12-07] MEDS: Gabapentin 300 MG Capsule PO ×2 (06:37→13:49)
[2022-12-07 07:05] LABS: Absolute Neutrophil Count 4.7 X10^3/uL (2.0-7.7); Basophil# 0.07 X10^3/uL; Basophil% 0.8 % (0-1); Eosinophil# 0.32 X10^3/uL; Eosinophils% 3.9 % (0-5); Hematocrit 31.9 % (37-47); Hemoglobin 10.2 g/dL (12.0-15.0); Lymphocyte % 26.5 % (19-41); Mean Corpuscular Hgb 30.3 pg (27.0-32.0); Mean Corpuscular Volume 94.7 fL (81-99); Mean Platelet Vol. 12.4 fl (6.2-12.0); Monocyte# 0.91 X10^3/uL; NRBC Flagged by Analyzer 0 % (0-5); Neutrophil # 4.74 X10^3/uL (2.7-7.7); Neutrophil % 57.2 % (47-70); Platelet Count 180 K/mm3 (150-450); RBC Distribution Width CV 13.7 % (11.6-14.6); RBC Distribution Width SD 47.4 fl (35.1-43.9); Red Blood Count 3.37 M/mm3 (4.2-5.4); White Blood Count 8.3 K/mm3 (4.4-11.0)
[2022-12-07 07:07] LABS: International Normalized Ratio 1.2; Prothrombin Time (Protime)PT. 15.6 SECONDS (11.7-14.9)
[2022-12-07 07:48] LABS: Anion Gap 8 (5-15); BUN 43 mg/dL (7-18); BUN/Creat Ratio 24.9 RATIO (10-20); Calcium,Total 8.4 mg/dL (8.5-10.1); Chloride 102 mmol/L (98-107); Creatinine, Serum 1.73 mg/dL (0.55-1.02); EST Glomerular Filtration Rate 30 mL/min (>60); Est Glom Filt Rate - Afr Amer 36 mL/min (>60); Estimated Creatinine Clearance 19.67 ml/min; Glucose 249 mg/dL (74-106); Potassium 3.3 mmol/L (3.5-5.1); Sodium Level 133 mmol/L (136-145)
[2022-12-07] MEDS: Lactated Ringers 1,000 ML 75 ML IV (08:36)
[2022-12-07 08:58] LABS: Bedside Glucose 224 mg/dL (74-106)
[2022-12-07] MEDS: Aspirin E.C. 81 MG Tablet PO (09:51)
[2022-12-07] MEDS: Cholecalciferol (VIT D3) 25 MCG TABLET (1,000 UNITS) PO ×2 (09:51)
[2022-12-07] MEDS: Metoprolol Tartrate 50 MG Tablet PO (09:51)
[2022-12-07] MEDS: DULoxetine Hcl 30 MG Capsule PO (09:52)
[2022-12-07] MEDS: Tolterodine Tartrate 2 MG CAP.SA PO (09:52)
[2022-12-07] MEDS: Isosorbide Mononitrate 60 MG Tablet PO (09:52)
[2022-12-07] MEDS: Ranolazine 500 MG Tablet PO (09:52)
[2022-12-07] MEDS: Insulin Lispro 100 UNIT/ML INSULN.PEN SC (10:52)
[2022-12-07] MEDS: Insulin Lispro 100 UNIT/ML INSULN.PEN 6 UNIT SC (10:52)
--- NOTE | 2022-12-07 12:09 | PCM.TXEXTCAR ---
Diet Diet Order/Speech Therapy: 12/05/22 22:34 Diet: Consistent Carb - Calorie Controlled Food consistency:: Regular Liquid Consistency:: Regular/Thin How many daily calories?: 1600 calorie Routine Orders/Code Status Routine Lab Work: CBC and BMP Code Status: Full Code Wound(s) Right temporal: Wound Type: Laceration Therapies Physical Therapy: Eval and Treat Occupational Therapy: Eval and Treat Problem/Diagnosis (1) Fall: Status: Acute Code(s): W19.XXXA - Unspecified fall, initial encounter (2) CKD (chronic kidney disease) stage 4, GFR 15-29 ml/min: Status: Chronic Code(s): N18.4 - Chronic kidney disease, stage 4 (severe) (3) Debility: Status: Acute Code(s): R53.81 - Other malaise (4) Hypercoagulable state due to atrial fibrillation: Status: Acute Code(s): D68.69 - Other thrombophilia; I48.91 - Unspecified atrial fibrillation Plan 1. Debility with weakness and recent fall/SHA on CKD 4 ? Continue with IV fluids ? PT/OT for evaluation ? Consult case management for discharge planning ? We will monitor renal function it is improving 2. HTN/HLD/A-fib/CAD status post CABG and stent/chronic diastolic CHF ? Blood pressure currently stable, can resume her home blood pressure medications ? Continue with her home Lipitor ? We will hold her home Lasix given her SHA and placed on a little bit of fluids ? Continue with Coumadin monitor INRs 3. DM2 with neuropathy ? Accu-Cheks ACHS ? Continue with insulin ? We will monitor adjustments as necessary ? We will dose adjust gabapentin 4. Anxiety/depression ? Stable ? Continue with Cymbalta DVT: Coumadin Allergies/Procedures Done in Hospital Allergies latex Allergy (Verified 12/05/22 16:14) Rash adhesive tape Adverse Reaction (Verified 12/05/22 16:14) Rash ticagrelor [From Brilinta] Adverse Reaction (Verified 12/05/22 16:14) Shortness of breath Procedures: None Type of Care/Length of Stay Estimated LOS: Convalescent Care Less Than 30 days Type of Care Needed: Skilled Rehab Potential: Good Prognosis: Good Additional Orders/Day of Discharge Day of Discharge: 12/07/22 Dietary and Speech Recommendations Dietitian Recommendations/Changes: will adjust diet to 1600 calorie controlled/consistent CHO; will monitor PO intake, labs, and adjust diet/add ONS as indicated Discharge Plan Admission Admit Date/Time: 12/05/22 19:50 Attending Provider: Bernardino Briceno Primary Care Provider: Jose J Lezama Consulting Providers: Carlos Liu Discharge Orders/Prescriptions Prescriptions: Continued aspirin [Adult Low Dose Aspirin] 81 mg tablet,delayed release (DR/EC) 81 mg PO DAILY gabapentin 300 mg capsule 600 mg PO TID cholecalciferol (vitamin D3) [Vitamin D3] 25 mcg (1,000 unit) capsule 25 mcg PO QODAY levothyroxine 50 mcg tablet 50 mcg PO DAILY duloxetine 30 mg capsule,delayed release(DR/EC) 30 mg PO DAILY diphenhydramine-acetaminophen [Tylenol PM Extra Strength] 25-500 mg tablet 1 tab PO QHS insulin glargine [Lantus Solostar U-100 Insulin] 100 unit/mL (3 mL) insulin pen 27 unit subcut QPM isosorbide mononitrate 60 mg tablet extended release 24 hr 60 mg PO BID Qty: 180 3RF oxybutynin chloride 10 MG tablet extended release 24hr 10 mg PO DAILY insulin lispro [Humalog KwikPen Insulin] 100 unit/mL insulin pen 27 unit subcut TID PRN PRN (Reason: SLIDING SCALE) ranolazine 500 mg tablet extended release 12 hr 500 mg PO Q12H atorvastatin 40 mg tablet 40 mg PO QHS Qty: 90 3RF hydralazine 100 mg tablet 100 mg PO TID Qty: 270 3RF nitroglycerin 0.4 mg tablet, sublingual 0.4 mg SUBLINGUAL Q5M PRN (Reason: chest pain) Qty: 25 3RF Rx Instructions: do not exceed 3 doses per episode warfarin 4 mg tablet 4 mg PO .COMPLEX Qty: 180 3RF Protocol: Dose Management Condition: Friday Dose/Route: 6 mg Instruction: 1.5 x 4 mg tablets Condition: Friday Dose/Route: 4 mg Instruction: 1 x 4 mg tablet Condition: Friday Dose/Route: 4 mg Instruction: 1 x 4 mg tablet Condition: Friday Dose/Route: 4 mg Instruction: 1 x 4 mg tablet Condition: Dose/Route: 4 mg Instruction: 1 x 4 mg tablet Condition: Friday Dose/Route: 4 mg Instruction: 1 x 4 mg tablet Condition: Friday Dose/Route: 6 mg Instruction: 1.5 x 4 mg tablets Protocol Text: Adjustment Start Date: Friday08/20/22 INR Value: 2.5 INR Date: 08/05/22 Recheck Date: 08/26/22 Rx Instructions: 4 mg orally daily Friday through Friday ; and take 1and a half tablets (6mg) on Sat and Sun; or as directed; metoprolol tartrate 50 mg tablet 50 mg PO BID Qty: 180 3RF (DME) [employer] [place] Misc See Rx Instructions .Route Qty: 1 0RF Rx Instructions: As directed Held furosemide 40 mg tablet 40 mg PO .COMPLEX Qty: 180 3RF Hold Instructions: Resume on 12/10/22. Rx Instructions: 40 mg orally daily, may take 1 extra pill daily for weight gain, swelling, or shortness of breath; Referrals / Follow Up: Jose J Lezama DO [Primary Care Provider] - Disposition Disposition (needs filled in before D/C Order can be placed): Shelter Facility (1) Fall Qualifiers: Encounter type: subsequent encounter Qualified Code(s): W19.XXXD - Unspecified fall, subsequent encounter (4) Hypercoagulable state due to atrial fibrillation Qualifiers: Atrial fibrillation type: paroxysmal Qualified Code(s): D68.69 - Other thrombophilia; I48.0 - Paroxysmal atrial fibrillation
[2022-12-07] MEDS: Potassium Chloride Oral Tablet 20 MEQ 40 MEQ PO (12:36)
[2022-12-07 13:01] LABS: Bedside Glucose 138 mg/dL (74-106)
[2022-12-07] MEDS: hydrALAZINE 50 MG Tablet 100 MG PO (13:48)
--- NOTE | 2022-12-07 14:15 | NURSING ---
Report called to nurse Layne at [facility]. Spouse at bedside and aware of transfer to SNF.
--- NOTE | 2022-12-07 14:34 | PCM.DC.SUM ---
Providers Date of Admission: 12/05/22 Primary Care Physician: Dr. Jose J Lezama, DO Reason For Visit: SHA, DEHYDRATION, DEBILITY Diagnosis Discharge Diagnosis (1) Fall: Status: Acute Code(s): W19.XXXA - Unspecified fall, initial encounter Qualifiers: Encounter type: subsequent encounter Qualified Code(s): W19.XXXD - Unspecified fall, subsequent encounter (2) CKD (chronic kidney disease) stage 4, GFR 15-29 ml/min: Status: Chronic Code(s): N18.4 - Chronic kidney disease, stage 4 (severe) (3) Debility: Status: Acute Code(s): R53.81 - Other malaise (4) Hypercoagulable state due to atrial fibrillation: Status: Acute Code(s): D68.69 - Other thrombophilia; I48.91 - Unspecified atrial fibrillation Qualifiers: Atrial fibrillation type: paroxysmal Qualified Code(s): D68.69 - Other thrombophilia; I48.0 - Paroxysmal atrial fibrillation Plan 1. Debility with weakness and recent fall/SHA on CKD 4 ? Continue with IV fluids ? PT/OT for evaluation ? Consult case management for discharge planning ? We will monitor renal function it is improving 2. HTN/HLD/A-fib/CAD status post CABG and stent/chronic diastolic CHF ? Blood pressure currently stable, can resume her home blood pressure medications ? Continue with her home Lipitor ? We will hold her home Lasix given her SHA and placed on a little bit of fluids ? Continue with Coumadin monitor INRs 3. DM2 with neuropathy ? Accu-Cheks ACHS ? Continue with insulin ? We will monitor adjustments as necessary ? We will dose adjust gabapentin 4. Anxiety/depression ? Stable ? Continue with Cymbalta DVT: Coumadin Medications at Discharge Home Medications aspirin 81 mg tablet,delayed release (Adult Low Dose Aspirin) 81 mg PO DAILY heart health 01/01/19 oxybutynin chloride 10 mg tablet,extended release 24 hr 10 mg PO DAILY BLADDER 03/23/19 levothyroxine 50 mcg tablet 50 mcg PO DAILY thyroid 05/10/20 cholecalciferol (vitamin D3) 25 mcg (1,000 unit) capsule (Vitamin D3) 25 mcg PO QODAY vitamin 06/20/21 duloxetine 30 mg capsule,delayed release 30 mg PO DAILY 02/28/22 diphenhydramine 25 mg-acetaminophen 500 mg tablet (Tylenol PM Extra Strength) 1 tab PO QHS 04/18/22 insulin lispro 100 unit/mL subcutaneous pen (Humalog KwikPen (U-100) Insulin) 27 unit subcut TID PRN PRN SLIDING SCALE 05/23/22 insulin glargine 100 unit/mL (3 mL) subcutaneous pen (Lantus Solostar U-100 Insulin) 27 unit subcut QPM 06/06/22 atorvastatin 40 mg tablet 40 mg PO QHS cholesterol #90 tabs 08/20/22 furosemide 40 mg tablet 40 mg PO .COMPLEX #180 tabs 08/20/22 hydralazine 100 mg tablet 100 mg PO TID #270 tabs 08/20/22 nitroglycerin 0.4 mg sublingual tablet 0.4 mg sublingual Q5M PRN chest pain #25 tabs 08/20/22 warfarin 4 mg tablet 4 mg PO .COMPLEX #180 tabs 08/20/22 gabapentin 300 mg capsule 600 mg PO TID nerve pain 11/01/22 isosorbide mononitrate 60 mg tablet,extended release 24 hr 60 mg PO BID #180 tabs 11/01/22 metoprolol tartrate 50 mg tablet 50 mg PO BID #180 tabs 11/04/22 flash glucose scanning reader ([employer] Jong 2 [place]) #1 ea 11/08/22 ranolazine 500 mg tablet,extended release,12 hr 500 mg PO Q12H 12/05/22 Hospital Course Operations None Procedures None Summary of Care Provided Minutes Spent on Discharge: 32 Hospital Course: Per HPI: GLORIA PAUL, is a 87 F with a significant history of hypertension; CAD and diabetes mellitus who presents to the emergency department with weakness. Of note patient fell 2 days before presentation. With her fall she hit her head real hard She came to the hospital and had 5 sutures placed. Patient lives with her . And per he is unable to help since patient is too weak. Patient is very weak. Earlier on the day of presentation patient slept reportedly all day. Plans were be made for patient to be admitted to [facility] but with her fall patient has been to with the family is looking to get her placed earlier. Of note patient has Dexcom for insulin monitoring but she is not able to manage. At the emergency department her blood glucose was found to be severely high. Patient admits to not drinking enough water. She denies any urinary symptoms. She complains of headache and pain in her legs. Hospital Course: 1. Progressive debility with weakness and recent fall/SHA on CKD 4?87-year-old female presented from home with progressive weakness and a recent fall. She was found to have a significant SHA which has improved significantly with IV fluids. PT and OT were consulted and recommended SNF placement. She did have a slightly abnormal UA however urine culture returned with no growth. Since she does not have a UTI and her renal function has improved I discussed with her the plan for possible discharge today she expressed understanding of the risk and benefits of going to the detention and would like to go and get started on rehab. 2. Hypertension, hyperlipidemia, A-fib, coronary artery disease status post CABG and stents, chronic diastolic CHF, type 2 diabetes with neuropathy, anxiety, depression are chronic medical conditions which complicate her care. Her home medications were continued where appropriate Physical Exam Narrative General: Alert, Oriented x3, Cooperative, No apparent distress HEENT: Atraumatic, PERRLA, EOMI, Normocephalic Oral: Moist Mucosa Neck: Supple, No JVD Lungs: Diminished, Normal air movement, No rhonchi, No wheeze, No rales Cardiovascular: Regular rate, Regular Rhythm, Normal S1, Normal S2, No murmurs Abdomen: Soft, Non Tender, Non-Distended, No Hepato-splenomegaly Extremities: No edema, Capillary Refill Less than 3 Seconds Skin: Facial laceration on the right forehead Musculoskeletal: No Tenderness to Palpation of Joints or Extremities Neurological: Moves all extremities, Sensory exam intact to light touch and pain Psych/Mental Status: Normal Affect, Appropriate Weight / BMI Weight Weight: 150 lb 2.157 oz Body Mass Index (BMI) 26.6 ABG / Lab / Microbiology Data 12/07/22 06:13 12/07/22 06:13 Laboratory: Laboratory Results - last 24 hr 12/06/22 16:35: POC Glucose 157 H 12/06/22 22:06: POC Glucose 231 H 12/07/22 06:13: WBC 8.3, RBC 3.37 L, Hgb 10.2 L, Hct 31.9 L, MCV 94.7, MCH 30.3, MCHC 32.0, RDW Std Deviation 47.4 H, RDW Coeff of Laquita 13.7, Plt Count 180, MPV 12.4 H, Immature Gran % (Auto) 0.600, Neut % (Auto) 57.2, Lymph % (Auto) 26.5, [place] % (Auto) 11.0 H, Eos % (Auto) 3.9, Baso % (Auto) 0.8, Absolute Neuts (auto) 4.7, Absolute Lymphs (auto) 2.20, Nucleated RBC % 0, PT 15.6 H, INR 1.2, Sodium 133 L, Potassium 3.3 L, Chloride 102, Carbon Dioxide 23.0, Anion Gap 8, BUN 43 H, Creatinine 1.73 H, Estim Creat Clear Calc 19.67, Est GFR (MDRD) Af Amer 36 L, Est GFR (MDRD) Non-Af 30 L, BUN/Creatinine Ratio 24.9 H, Glucose 249 H, Calcium 8.4 L 12/07/22 08:40: POC Glucose 224 H 12/07/22 12:32: POC Glucose 138 H Microbiology: Microbiology 12/05/22 19:15 Urine, Clean Catch Urine Culture - Final Culture exhibits no growth. Meaningful Use Info Meaningful Use Diagnoses (Choose all that apply): None applicable Discharge Plan Admission Admit Date/Time: 12/05/22 19:50 Attending Provider: Bernardino Briceno Primary Care Provider: Jose J Lezama Consulting Providers: Carlos Liu Discharge Orders/Prescriptions Prescriptions: Continued aspirin [Adult Low Dose Aspirin] 81 mg tablet,delayed release (DR/EC) 81 mg PO DAILY gabapentin 300 mg capsule 600 mg PO TID cholecalciferol (vitamin D3) [Vitamin D3] 25 mcg (1,000 unit) capsule 25 mcg PO QODAY levothyroxine 50 mcg tablet 50 mcg PO DAILY duloxetine 30 mg capsule,delayed release(DR/EC) 30 mg PO DAILY diphenhydramine-acetaminophen [Tylenol PM Extra Strength] 25-500 mg tablet 1 tab PO QHS insulin glargine [Lantus Solostar U-100 Insulin] 100 unit/mL (3 mL) insulin pen 27 unit subcut QPM isosorbide mononitrate 60 mg tablet extended release 24 hr 60 mg PO BID Qty: 180 3RF oxybutynin chloride 10 MG tablet extended release 24hr 10 mg PO DAILY insulin lispro [Humalog KwikPen Insulin] 100 unit/mL insulin pen 27 unit subcut TID PRN PRN (Reason: SLIDING SCALE) ranolazine 500 mg tablet extended release 12 hr 500 mg PO Q12H atorvastatin 40 mg tablet 40 mg PO QHS Qty: 90 3RF hydralazine 100 mg tablet 100 mg PO TID Qty: 270 3RF nitroglycerin 0.4 mg tablet, sublingual 0.4 mg SUBLINGUAL Q5M PRN (Reason: chest pain) Qty: 25 3RF Rx Instructions: do not exceed 3 doses per episode warfarin 4 mg tablet 4 mg PO .COMPLEX Qty: 180 3RF Protocol: Dose Management Condition: Friday Dose/Route: 6 mg Instruction: 1.5 x 4 mg tablets Condition: Friday Dose/Route: 4 mg Instruction: 1 x 4 mg tablet Condition: Friday Dose/Route: 4 mg Instruction: 1 x 4 mg tablet Condition: Friday Dose/Route: 4 mg Instruction: 1 x 4 mg tablet Condition: Dose/Route: 4 mg Instruction: 1 x 4 mg tablet Condition: Friday Dose/Route: 4 mg Instruction: 1 x 4 mg tablet Condition: Friday Dose/Route: 6 mg Instruction: 1.5 x 4 mg tablets Protocol Text: Adjustment Start Date: Friday08/20/22 INR Value: 2.5 INR Date: 08/05/22 Recheck Date: 08/26/22 Rx Instructions: 4 mg orally daily Friday through Friday ; and take 1and a half tablets (6mg) on Sat and Sun; or as directed; metoprolol tartrate 50 mg tablet 50 mg PO BID Qty: 180 3RF (DME) [employer] Jong [address] [place] Misc See Rx Instructions .Route Qty: 1 0RF Rx Instructions: As directed Held furosemide 40 mg tablet 40 mg PO .COMPLEX Qty: 180 3RF Hold Instructions: Resume on 12/10/22. Rx Instructions: 40 mg orally daily, may take 1 extra pill daily for weight gain, swelling, or shortness of breath; Referrals / Follow Up: Jose J Lezama DO [Primary Care Provider] - Disposition Disposition (needs filled in before D/C Order can be placed): [facility] Charges/Coding Visit Charges Inpatient E&M: 16612 Disch Hosp >30min
== END 2022-12-07 16:15 | disposition skilled nursing facility (03) ==
LOC: ED 19:55 → PCU 20:29
PROVIDERS: Admitting Provider Hospitalist; Emergency Provider Emergency Medicine; PCP Family Medicine; Visit Provider Family Medicine
DX: N17.9 Acute kidney failure, unspecified (principal); I13.0 Hypertensive heart and chronic kidney disease with heart failure and stage 1 through stage 4 chronic kidney disease, or unspecified chronic kidney disease; I50.32 Chronic diastolic (congestive) heart failure; E11.65 Type 2 diabetes mellitus with hyperglycemia; E11.22 Type 2 diabetes mellitus with diabetic chronic kidney disease; E11.40 Type 2 diabetes mellitus with diabetic neuropathy, unspecified; N18.4 Chronic kidney disease, stage 4 (severe); J96.10 Chronic respiratory failure, unspecified whether with hypoxia or hypercapnia; I48.0 Paroxysmal atrial fibrillation; D68.59 Other primary thrombophilia; Z79.4 Long term (current) use of insulin; Z79.82 Long term (current) use of aspirin; Z79.02 Long term (current) use of antithrombotics/antiplatelets; M79.7 Fibromyalgia; I25.10 Atherosclerotic heart disease of native coronary artery without angina pectoris; S01.81XA Laceration without foreign body of other part of head, initial encounter; E78.00 Pure hypercholesterolemia, unspecified; E86.0 Dehydration; W19.XXXA Unspecified fall, initial encounter; E03.9 Hypothyroidism, unspecified; F41.9 Anxiety disorder, unspecified; Z79.01 Long term (current) use of anticoagulants; Z79.899 Other long term (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; Z79.890 Hormone replacement therapy; R53.81 Other malaise; Y92.000 Kitchen of unspecified non-institutional (private) residence as the place of occurrence of the external cause; Z99.81 Dependence on supplemental oxygen; Z23 Encounter for immunization
CPT/HCPCS: 36415; 70450; 71045; 80048; 81001; 82009; 82652; 82803; 82962; 83690; 85025; 85610; 87086; 92610; 93005; 96361; 96374; 97162; 97166; 97535; 97802; 99221; 99285; G0008; J7030; J7040; J7120; 90662; A4216; G0378

== ENCOUNTER → 2022-12-20 | Outpatient (REF) | payer MEDICARE, SELFPAY ==
[2021-06-18 13:40] VITALS: BMI 28.7
[2022-12-20 08:53] LABS: Hematocrit 32.2 % (37-47); Hemoglobin 9.9 g/dL (12.0-15.0); Mean Corp Hgb Conc 30.7 g/dL (32-36); Mean Corpuscular Hgb 28.5 pg (27.0-32.0); Mean Corpuscular Volume 92.8 fL (81-99); Mean Platelet Vol. 11.1 fl (6.2-12.0); Platelet Count 292 K/mm3 (150-450); RBC Distribution Width CV 14.3 % (11.6-14.6); RBC Distribution Width SD 48.4 fl (35.1-43.9); Red Blood Count 3.47 M/mm3 (4.2-5.4); White Blood Count 8.8 K/mm3 (4.4-11.0)
[2022-12-20 09:12] LABS: Prothrombin Time (Protime)PT. 45.4 SECONDS (11.7-14.9)
[2022-12-20 10:10] LABS: International Normalized Ratio 4.7
== END ==
LOC: OLS.SW 05:00
PROVIDERS: PCP Family Medicine; Visit Provider Family Medicine
DX: I48.91 Unspecified atrial fibrillation (principal); N17.9 Acute kidney failure, unspecified; D68.69 Other thrombophilia
CPT/HCPCS: 36415; 85027; 85610

== ENCOUNTER → 2022-12-23 | Outpatient (REF) | payer MEDICARE, SELFPAY ==
[2021-06-18 13:40] VITALS: BMI 28.7
[2022-12-23 08:25] LABS: Bacteria 0 SEEN /hpf (None Seen); Mucous, Urine 0 SEEN /hpf (<or=2+); Red Blood Cells-Urine 0 SEEN /hpf (0-5)
[2022-12-23 08:47] LABS: Color, Urine Yellow (Yellow); Glucose, Dipstick 100 mg/dl (Normal); Ketone-Dipstick Negative (Negative); Leukocyte Esterase-Dipstick 25 /ul (Negative); Nitrite-Dipstick Negative (Negative); Occult Blood-Urine Negative /ul (Negative); Protein-Dipstick Negative (Negative); Urine Bilirubin Dipstick Negative (Negative); Urine Clarity Sl. Cloudy (Clear); Urine Urobilinogen Normal (Normal)
[2022-12-23 08:53] LABS: Squamous Epithelial Cells - UA 0-5 SEEN /hpf (5-10); White Blood Cells 0-5 SEEN /hpf (0-5)
[2022-12-23 09:41] LABS: Prothrombin Time (Protime)PT. 22.4 SECONDS (11.7-14.9)
== END ==
LOC: OLS.SW 05:00
PROVIDERS: PCP Family Medicine; Visit Provider Family Medicine
DX: E11.9 Type 2 diabetes mellitus without complications (principal); Z79.01 Long term (current) use of anticoagulants; Z79.899 Other long term (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
CPT/HCPCS: 36415; 81001; 85610; 87086; 87088

== ENCOUNTER 2023-02-03 16:31 | Inpatient (IN) | payer MEDICARE, SELFPAY ==
[2023-02-03] VITALS (7 sets, daily range): BP systolic 77–135; BP diastolic 46–69; PULSE 46–60; RESP 12–25; TEMP 36.4–36.6; O2SAT 90–98; BMI 26.4; BMI 28.3
--- NOTE | 2023-02-03 16:40 | CT_ITS ---
STUDY: CT BRAIN WITHOUT CONTRAST REASON FOR EXAM: Female, 87 years old. ALOC RADIATION DOSAGE (If Supplied By Facility): CTDIvol = ( 44.99 ) mGy, DLP = ( 762.36 ) mGycm TECHNIQUE: Transaxial CT imaging of the brain was performed without administration of intravenous contrast material. Individualized dose optimization techniques were used for this CT. COMPARISON: No relevant priors. FINDINGS: Normal soft tissue structures. Normal calvarium. There is mild cerebral atrophy with widening of the extra-axial spaces and ventricular dilatation. There are areas of decreased attenuation within the white matter tracts of the supratentorial brain, consistent with microvascular disease changes. Normal basal ganglia and thalami. Normal brainstem. Normal cerebellum. There is no intracranial hemorrhage. There are no findings of an acute ischemic infarction. Normal visualized paranasal sinuses. CT/Brain/Head without Contrast IMPRESSION: Chronic changes as described with no acute intracranial hemorrhage or space-occupying lesion. Electronically Signed: Jenniffer Winter MD at 17:33 EST ,
--- NOTE | 2023-02-03 16:41 | EKG12_ITS ---
Test Reason : HYPERGLYCEMIC Blood Pressure : / mmHG Vent. Rate : 051 BPM Atrial Rate : 051 BPM P-R Int : 202 ms QRS Dur : 082 ms QT Int : 506 ms P-R-T Axes : 018 017 110 degrees QTc Int : 466 ms Sinus bradycardia with Premature supraventricular complexes Cannot rule out Inferior infarct , age undetermined Abnormal ECG Confirmed by LAURA BENITEZ, CARRIE ([id number]), purchasing expeditor VICTORIA GOMEZ ([id number]) on 02/11/2023 9:25:17 AM Referred By: BRITTANY Confirmed By:CARRIE SANCHEZ MD
--- NOTE | 2023-02-03 16:44 | EX.ED.DYSGE1 ---
HPI History of Present Illness Chief Complaint: Neuro S/Sx Detail of Chief Complaint: Altered level of consciousness. Nausea and vomiting. Hypotensive. Informant: patient, spouse/S.O. and family Onset/Context/Timing Onset: Today Context: Gradual Onset Timing: Continuous Current Severity: Severe Maximum Severity: Severe Narrative Narrative: 87-year-old female from home where she lives with her . Early dementia, COPD, CVA, CABG with CHF, on Coumadin, diabetic and chronic kidney disease. Today had decreased mental status with a low blood pressure and heart rate at home in the 40s with nausea and vomiting. No fever. No dysuria. No headache. She has recently fallen several weeks ago was hospitalized at that time and placed at a rehab facility but now is home. and daughter at bedside. They are assisting in history. Prior similar symptoms: No Recent Illness/Hospitalization: Yes PFSH PFS Home Medications aspirin 81 mg tablet,delayed release (Adult Aspirin Regimen) 81 mg PO DAILY 02/03/23 [History Last Taken Unknown] atorvastatin 40 mg tablet 40 mg PO DAILY HYPERLIPIDEMIA 02/03/23 [History Last Taken Unknown] duloxetine 30 mg capsule,delayed release 30 mg PO DAILY DEPRESSION 02/03/23 [History Last Taken Unknown] furosemide 20 mg tablet 20 mg PO DAILY EDEMA 02/03/23 [History Last Taken Unknown] gabapentin 300 mg capsule 600 mg PO Q8H NEUROPATHY 02/03/23 [History Last Taken Unknown] hydralazine 100 mg tablet 100 mg PO Q8H HTN 02/03/23 [History Last Taken Unknown] insulin lispro 100 unit/mL subcutaneous pen 27 unit subcut 02/03/23 [History Last Taken Unknown] isosorbide mononitrate 60 mg tablet,extended release 24 hr 60 mg PO DAILY 02/03/23 [History Last Taken Unknown] levothyroxine 50 mcg tablet 50 mcg PO DAILY hypothyroidism 02/03/23 [History Last Taken Unknown] metoprolol tartrate 50 mg tablet 50 mg PO BID HTN 02/03/23 [History Last Taken Unknown] oxybutynin chloride 10 mg tablet,extended release 24 hr 10 mg PO DAILY urinary retention 02/03/23 [History Last Taken Unknown] warfarin 4 mg tablet 4 mg PO DAILY stroke 02/03/23 [History Last Taken Unknown] Allergy/AdvReac Type Severity Reaction Status Date / Time latex Allergy Intermediate Rash Verified 02/03/23 16:39 morphine Allergy Intermediate Low blood Verified 02/03/23 16:39 pressure Social History Smoking Status: Never smoker ROS ROS ED ROS Narrative Decreased mental status today. Nausea and vomiting. Review of Systems ROS Unobtainable: due to encephalopathy Constitutional Constitutional ED: Denies chills or fever(s) Eyes Eyes: Denies blurry vision ENT ENT ED: Denies ear pain Cardiovascular Cardiovascular: Denies chest pain Respiratory/Chest Respiratory/Chest: Denies cough or dyspnea Gastrointestinal Gastrointestinal: Reports vomiting; Denies abdominal pain Genitourinary Genitourinary ED: Denies dysuria Musculoskeletal Musculoskeletal: Denies arthralgias Integumentary Denies abscess Neurologic Neurologic: Denies headache(s) Psychiatric Psychiatric: Denies anxiety or depression Allergic/Immunologic Allergic/Immunologic ED: Denies mouth swelling or tongue swelling EXAM Physical Exam Narrative Exam Narrative: Eight 7-year-old female. Vital signs are pressure 77/61. Pulse ox 90% on room air hypoxia. Afebrile. Heart rate 46. Patient is sitting upright. She is awake. Her eyes are open. She knows where she is at. She is following commands. H EENT exam she has bruising just below her right eye. Pupils round reactive light motions are intact. No facial droop. Normal speech. Scalp atraumatic. Nontender. Neck nontender. Lungs clear to auscultation bilaterally. Heart bradycardic rate no 45 range. No murmur. Chest wall nontender. Ribs nontender. Abdomen soft nontender. No pulsatile mass. Nondistended. Pelvic girdle intact. Moving all 4 extremities. 5 out of 5 brake operator sheet metal strength. Dorsi plantarflexion intact. Patient is awake. She does speak to me. She is following limited commands. Const Vital Signs: 02/03/23 16:33 02/03/23 16:32 02/03/23 17:11 Temperature 97.8 F Temperature Source Temporal Pulse Rate 46 L 47 L Respiratory Rate 12 25 H Blood Pressure 77/61 L Blood Pressure Mean 66 Pulse Ox 90 92 Oxygen Delivery Method Room Air Nasal Cannula Room Air Oxygen Flow Rate (L/min) 3 02/03/23 17:14 02/03/23 18:00 Temperature 97.7 F L Temperature Source Oral Pulse Rate 60 58 L Respiratory Rate 20 H 20 H Blood Pressure 134/60 H 123/60 H Blood Pressure Mean 84 81 Pulse Ox 96 98 Oxygen Delivery Method Nasal Cannula Nasal Cannula Oxygen Flow Rate (L/min) 2 2 Positive well nourished and well developed; Negative for cachectic, contractures or unkempt General Appearance ED: well developed and NAD; Negative for unkempt, cachectic, contractures, cyanotic, diaphoretic or pallor Nutritional Appearance: Negative for cachectic HEENT Reports moist mucous membranes Negative for trauma or tenderness Eyes PERRL and EOMs intact bilaterally General Eye ED: Negative for pale conjunctiva or scleral icterus Neck no lymphadenopathy, supple and no JVD General: Negative for tenderness Lymph Lymphatic: Negative for other Chest Wall inspection of chest normal and palpation of chest normal Chest: Negative for other Resp normal respiratory effort and clear to auscultation bilaterally Effort and Inspection: Negative for retractions Auscultation: Negative for rales, rhonchi or wheezes Cardio regular rhythm, S1 normal heart sound, S2 normal heart sound and no murmurs; Negative for regular rate Rate: bradycardia Rhythm: Negative for abnormal rhythm GI normal to inspection, nondistended, normoactive bowel sounds, non-tender, non-distended and no masses Inspection: Negative for abdominal distention Auscultation: normoactive bowel sounds Palpation: soft; Negative for tender, guarding or rebound tenderness present Back/Spine no CVA tenderness General Back: Negative for CVA tenderness Cervical Spine: Negative for cervical spine tenderness Thoracic Spine / Upper Back: Negative for thoracic spinal tenderness Lumbar Spine / Lower Back: Negative for lumbar spinal tenderness Extremity normal to inspection General Extremety ED: Negative for edema or tenderness General Extremity: Negative for edema Neuro Neuro Narrative: Awake and alert. Eyes open. She knows she is in the hospital. She has equal and symmetrical brake operator sheet metal strength. Equal and symmetrical dorsi and plantarflexion. Sensorium / Orientation: alert Motor Exam: strength 5/5 throughout Psych mental status grossly normal Appearance: Negative for unkempt Attitude: No agitated Mood & Affect: Negative for depressed, anxious or tearful Skin no rashes or lesions noted, no wounds and skin turgor normal General Skin Exam: elasticity normal; Negative for jaundice or pallor Lesions: No lesion noted Rashes: No rashes noted Trauma: Negative for abrasion Wounds: Negative for wounds noted MDM MDM MDM Narrative Medical decision making narrative: 87-year-old female in distress. Hypotensive and bradycardic. This may be from sepsis. It may be from dehydration even though she has moist mucous membranes. It could be from cardiogenic shock from being bradycardic. Does not appear to be a stroke. She does not have a fever but this could be sepsis. Repeat exam at 6:30 PM patient looks much better currently. She has had over a liter of normal saline. Her current blood pressure is 130/82. She is awake and alert. I explained to the family other than her kidney function being a little worse, her being somewhat dehydrated and her INR being elevated nothing else specific explains what occurred. I have spoken to the hospitalist and she will be PCU observation admission. History & Record Review Discussion w/independent historian: Patient and Family Additional record(s) reviewed:: Prior inpatient record, Prior outpatient record, Prior ED visit and Prior labs Lab Data Attestation: I reviewed the patient's lab results. Lab results narrative: CBC shows a white count 11.1. H&H 13 and 39. Platelets 279. PT/INR are elevated at 47 and 5.0. PTT of 44. Patient is on Coumadin. Sodium 134. Gap of 9. BUN is elevated 48 creatinine 2.2. She has had prior labs here and that is higher than her baseline. Glucose is 227. Urinalysis is normal. No signs of infection. COVID and flu are negative. Labs: Laboratory Results - last 24 hr 02/03/23 02/03/23 02/03/23 16:39 16:51 17:06 WBC 11.1 H RBC 4.55 Hgb 13.0 Hct 39.7 MCV 87.3 MCH 28.6 MCHC 32.7 RDW Std Deviation 47.8 H RDW Coeff of Laquita 15.0 H Plt Count 279 MPV 10.6 Immature Gran % (Auto) 0.400 Neut % (Auto) 71.8 H Lymph % (Auto) 18.0 L [place] % (Auto) 7.0 Eos % (Auto) 2.2 Baso % (Auto) 0.6 Absolute Neuts (auto) 8.0 H Absolute Lymphs (auto) 2.00 Nucleated RBC % 0 PT 47.3 H INR 5.0 H* APTT 44.5 H Sodium 134 L Potassium 3.8 Chloride 98 Carbon Dioxide 27.0 Anion Gap 9 BUN 48 H Creatinine 2.22 H Estim Creat Clear Calc 16.67 Est GFR (MDRD) Af Amer 27 L Est GFR (MDRD) Non-Af 22 L BUN/Creatinine Ratio 21.6 H Glucose 227 H Lactic Acid 1.4 Calcium 9.0 Total Bilirubin 0.40 AST 13 L ALT 14 Alkaline Phosphatase 99 Troponin I High Sens 10 Total Protein 7.6 Albumin 3.3 Globulin 4.3 H Albumin/Globulin Ratio 0.8 L Urine Color Yellow Urine Clarity Clear Urine pH 5.0 Ur Specific [place] 1.010 Urine Protein Negative Urine Glucose (UA) 1000 H Urine Ketones Negative Urine Occult Blood Negative Urine Nitrite Negative Urine Bilirubin Negative Urine Urobilinogen Normal Ur Leukocyte Esterase Negative Urine RBC 0 SEEN Urine WBC 0 SEEN Ur Squamous Epith Cells 0 SEEN Urine Bacteria 0 SEEN Urine Mucus 0 SEEN POC Glucose 224 H Radiography Chest X-Ray - ED: 1 View, Read by ED Physician, Normal, Heart, Lungs, Mediastinum, Bony Structures, No Acute Disease and Chronic Changes Diagnostic Testing: Clinical Impression(s) from Imaging Studies Brain CT 02/03/23 16:40 IMPRESSION: Chronic changes as described with no acute intracranial hemorrhage or space-occupying lesion. Electronically Signed: Jenniffer Winter MD at 17:33 EST , Chest X-Ray 02/03/23 17:25 IMPRESSION: No acute cardiopulmonary disease. Electronically Signed: Jenniffer Winter MD at 17:50 EST , Chest x-ray, portable, single view, interpreted by myself and the radiologist shows chronic changes no acute process. Normal cardiac silhouette. Prior sternotomy. No effusions. No infiltrate. Rhythm Strip Rhythm Strip: Sinus bradycardia Rate: 51 Ectopy: PVC(s) EKG Initial EKG: Attestation: I personally reviewed and interpreted this EKG as follows: Interpretation: Sinus Bradycardia Comments: Sinus bradycardia rate of 51 no acute signs of MT or ischemia. Critical Care Time Critical Care Time: Yes Critical care time (excluding procedures): 30-74 minutes, Including time spent:, Discussing w/Patient &/or Family/Autocad, Discussing w/Consultants, Arranging Admission or Transfer, Performing Direct Patient Care at Bedside and - (40 min) Discharge Plan Triage Chief Complaint: Neuro S/Sx ED Provider: Dc Mcpherson Dx/Rx/DC Orders Clinical Impression: History of COPD, Transient hypotension, Altered level of consciousness, Chronic anticoagulation, Acute on chronic renal insufficiency, History of stroke, History of diabetes mellitus, Warfarin-induced coagulopathy Prescriptions: No Action atorvastatin 40 mg tablet 40 mg PO DAILY duloxetine 30 mg capsule,delayed release(DR/EC) 30 mg PO DAILY furosemide 20 mg tablet 20 mg PO DAILY Patient Comments: TAKE 2 TABLETS BY MOUTH ONCE DAILY, MAY TAKE 1 EXTRA TAB NEEDED gabapentin 300 mg capsule 600 mg PO Q8H hydralazine 100 mg tablet 100 mg PO Q8H isosorbide mononitrate 60 mg tablet extended release 24 hr 60 mg PO DAILY metoprolol tartrate 50 mg tablet 50 mg PO BID oxybutynin chloride 10 mg tablet extended release 24hr 10 mg PO DAILY warfarin 4 mg tablet 4 mg PO DAILY aspirin [Adult Aspirin Regimen] 81 mg tablet,delayed release (DR/EC) 81 mg PO DAILY insulin lispro 100 unit/mL insulin pen 27 unit SUBCUT Patient Comments: at meals levothyroxine 50 mcg tablet 50 mcg PO DAILY Primary Care Provider: Jose J Lezama Referrals: Jose J Lezama DO [Primary Care Provider] - Disposition Disposition: Acute Care [facility]
--- NOTE | 2023-02-03 16:50 | NURSING ---
NO OLD EKGS
[2023-02-03 16:58] LABS: Bedside Glucose 224 mg/dL (74-106)
[2023-02-03 17:03] LABS: Basophil# 0.07 X10^3/uL; Basophil% 0.6 % (0-1); Eosinophil# 0.24 X10^3/uL; Eosinophils% 2.2 % (0-5); Hematocrit 39.7 % (37-47); Mean Corp Hgb Conc 32.7 g/dL (32-36); Mean Corpuscular Hgb 28.6 pg (27.0-32.0); Mean Corpuscular Volume 87.3 fL (81-99); Mean Platelet Vol. 10.6 fl (6.2-12.0); Monocyte# 0.78 X10^3/uL; NRBC Flagged by Analyzer 0 % (0-5); Neutrophil # 7.98 X10^3/uL (2.7-7.7); Neutrophil % 71.8 % (47-70); Platelet Count 279 K/mm3 (150-450); RBC Distribution Width SD 47.8 fl (35.1-43.9); Red Blood Count 4.55 M/mm3 (4.2-5.4); White Blood Count 11.1 K/mm3 (4.4-11.0)
[2023-02-03] MEDS: 0.9% Normal Saline (1000mL) 1,000 ML 2000 ML IV (17:10)
[2023-02-03 17:12] LABS: Bacteria 0 SEEN /hpf (None Seen); Mucous, Urine 0 SEEN /hpf (<or=2+); Red Blood Cells-Urine 0 SEEN /hpf (0-5); Squamous Epithelial Cells - UA 0 SEEN /hpf (5-10); White Blood Cells 0 SEEN /hpf (0-5)
--- NOTE | 2023-02-03 17:25 | RAD_ITS ---
STUDY: X-RAY CHEST REASON FOR EXAM: Female, 87 years old. hypotension TECHNIQUE: Single AP portable view of the chest. COMPARISON: None. FINDINGS: The lungs are clear and expanded. There is no demonstrated pleural abnormality. Normal size heart. Midline sternotomy wires. Normal mediastinum and eddie. Normal visualized pulmonary arteries. There is atherosclerotic calcification of the aortic arch with tortuosity. There is demineralization of the osseous structures. Degenerative disease of the visualized left shoulder. Right upper quadrant surgical clips. RAD/Chest 1 View (Portable) IMPRESSION: No acute cardiopulmonary disease. Electronically Signed: Jenniffer Winter MD at 17:50 EST ,
[2023-02-03 17:28] LABS: Prothrombin Time (Protime)PT. 47.3 SECONDS (11.7-14.9)
[2023-02-03 17:31] LABS: Partial Thromboplast Time 44.5 Seconds (24.1-36.2)
[2023-02-03 17:34] LABS: Color, Urine Yellow (Yellow); Glucose, Dipstick 1000 mg/dl (Normal); Ketone-Dipstick Negative (Negative); Leukocyte Esterase-Dipstick Negative /ul (Negative); Nitrite-Dipstick Negative (Negative); Occult Blood-Urine Negative /ul (Negative); Protein-Dipstick Negative (Negative); Urine Bilirubin Dipstick Negative (Negative); Urine Clarity Clear (Clear); Urine Urobilinogen Normal (Normal)
[2023-02-03 17:36] LABS: ALB/GLOB Ratio 0.8 RATIO (0.9-2.4); AST(SGOT) 13 U/L (15-37); Alanine Aminotransfer ALT/SGPT 14 U/L (13-56); Albumin, Serum 3.3 g/dL (3.2-5.0); Alkaline Phosphatase 99 U/L (45-117); Anion Gap 9 (5-15); BUN 48 mg/dL (7-18); BUN/Creat Ratio 21.6 RATIO (10-20); Chloride 98 mmol/L (98-107); Creatinine, Serum 2.22 mg/dL (0.55-1.02); EST Glomerular Filtration Rate 22 mL/min (>60); Est Glom Filt Rate - Afr Amer 27 mL/min (>60); Estimated Creatinine Clearance 16.67 ml/min; Globulin 4.3 g/dL (2.2-4.2); Glucose 227 mg/dL (74-106); Potassium 3.8 mmol/L (3.5-5.1); Protein, Total 7.6 g/dL (6.4-8.2); Sodium Level 134 mmol/L (136-145); Troponin-I HS 10 pg/mL (3.0-54.0)
[2023-02-03 17:37] LABS: Lactic Acid 1.4 mmol/L (0.4-1.9)
--- NOTE | 2023-02-03 18:19 | HP.PCM.HOS_ITS ---
HPI - General General Date of Admission: 02/03/23 Date of Service: 02/03/23 Chief Complaint: Altered mental status, hypotension HPI Narrative GLORIA PAUL, is a 87 F who presented to [facility] ED on 02/03/2023 with altered mental status and hypotension. Patient seen at bedside in the ED, daughter present. Patient received 2 L of IV fluids prior to my interview. Patient was laying comfortably in bed, alert and oriented x 3, conversing normally, in no acute distress. Satting in high 90s on 2 L nasal cannula, no increased work of breathing noted. Patient states that she feels significantly better now than earlier today. Daughter agrees that patient looks much improved at this time. Daughter notes that patient appeared very fatigued and was becoming more confused earlier today. Patient lives at home with her but daughter helps out fairly often. They took patient's blood pressure at home and noted that it was in the 70 systolic and saw her heart rate was in the 40s, so they called EMS. Patient did report an episode of nausea with vomiting earlier today as well. Patient currently denies any fevers or chills, chest pain, shortness of breath, abdominal pain, nausea, lightheadedness or dizz iness, or confusion. States that she was taking her home medications as prescribed without issue. However, the daughter notes that patient's thought that she looked volume overloaded and gave her 2 doses of Lasix per day over the past few days for this. Patient states that she has been urinating very frequently over the past several days. Patient does report drinking lots of water at home, does frequently feel thirsty. Denies any other acute concerns at this time. [facility] Medical History (Updated 02/03/23 @ 20:[address], DO) Atrial fibrillation BiPAP (biphasic positive airway pressure) dependence Congestive heart failure (CHF) Diabetes Hypertension Kidney disease Non-smoker Sleep apnea Stroke/cerebrovascular accident Home Medications aspirin 81 mg tablet,delayed release (Adult Aspirin Regimen) 81 mg PO DAILY 02/03/23 [History Last Taken Unknown] atorvastatin 40 mg tablet 40 mg PO DAILY HYPERLIPIDEMIA 02/03/23 [History Last Taken Unknown] duloxetine 30 mg capsule,delayed release 30 mg PO DAILY DEPRESSION 02/03/23 [History Last Taken Unknown] furosemide 20 mg tablet 20 mg PO DAILY EDEMA 02/03/23 [History Last Taken Unknown] gabapentin 300 mg capsule 600 mg PO Q8H NEUROPATHY 02/03/23 [History Last Taken Unknown] hydralazine 100 mg tablet 100 mg PO Q8H HTN 02/03/23 [History Last Taken Unknown] insulin lispro 100 unit/mL subcutaneous pen 27 unit subcut 02/03/23 [History Last Taken Unknown] isosorbide mononitrate 60 mg tablet,extended release 24 hr 60 mg PO DAILY 02/03/23 [History Last Taken Unknown] levothyroxine 50 mcg tablet 50 mcg PO DAILY hypothyroidism 02/03/23 [History Last Taken Unknown] metoprolol tartrate 50 mg tablet 50 mg PO BID HTN 02/03/23 [History Last Taken Unknown] oxybutynin chloride 10 mg tablet,extended release 24 hr 10 mg PO DAILY urinary retention 02/03/23 [History Last Taken Unknown] warfarin 4 mg tablet 4 mg PO DAILY stroke 02/03/23 [History Last Taken Unknown] Allergy/AdvReac Type Severity Reaction Status Date / Time latex Allergy Intermediate Rash Verified 02/03/23 19:44 morphine Allergy Intermediate Low blood Verified 02/03/23 19:44 pressure Surgical History (Updated 02/03/23 @ 19:41 by Emmie Beard) History of coronary artery stent placement Hx of CABG Social History Smoking Status: Never smoker ROS Constitutional Constitutional: Reports fatigue; Denies chills, fever(s) or weakness Eyes Eyes: Denies change in vision Cardiovascular Cardiovascular: Denies chest pain, dyspnea on exertion, edema, lightheadedness, rapid heart rate or syncope Respiratory/Chest Respiratory/Chest: Denies cough, shortness of breath at rest or wheezing Gastrointestinal Gastrointestinal: Denies abdominal pain, nausea or vomiting Genitourinary Genitourinary: Reports urinary frequency; Denies burning urination, difficulty urinating, dysuria or urinary incontinence Neurologic Neurologic: Denies confusion, dizziness, focal weakness, headache(s), numbness or paresthesias Vital Signs Vital Signs Vital Signs: 02/03/23 16:33 02/03/23 16:32 02/03/23 17:11 Temperature 97.8 F Temperature Source Temporal Pulse Rate 46 L 47 L Respiratory Rate 12 25 H Blood Pressure 77/61 L Blood Pressure Mean 66 Pulse Ox 90 92 Oxygen Delivery Method Room Air Nasal Cannula Room Air Oxygen Flow Rate (L/min) 3 02/03/23 17:14 02/03/23 18:00 Temperature 97.7 F L Temperature Source Oral Pulse Rate 60 58 L Respiratory Rate 20 H 20 H Blood Pressure 134/60 H 123/60 H Blood Pressure Mean 84 81 Pulse Ox 96 98 Oxygen Delivery Method Nasal Cannula Nasal Cannula Oxygen Flow Rate (L/min) 2 2 Weight Weight: 72 kg Body Mass Index (BMI) 26.4 Physical Exam Const alert, oriented x3, no apparent distress and average body habitus Constitutional Narrative: Pleasant elderly female, laying comfortably in bed, conversing normally, no acute distress. General Appearance: cooperative and comfortable HEENT normocephalic, head/scalp atraumatic, hearing grossly normal bilaterally, nasal mucous membranes and turbinates normal and moist oral mucous membranes Eyes PERRL, EOMs intact bilaterally and conjunctivae normal Eyes Narrative: Bruising noted underneath right eye, secondary to previous falls. Neck full ROM, no lymphadenopathy and supple Lymph Lymphatic: no lymphadenopathy noted Chest inspection of chest normal Resp normal respiratory effort, normal air movement, no use of accessory muscles and clear to auscultation bilaterally Resp Narrative: Satting in high 90s on 2 L nasal cannula, no increased work of breathing noted. Cardio regular rate, regular rhythm, no murmurs and peripheral pulses 2+ throughout GI normal to inspection, nondistended, normoactive bowel sounds, soft to palpation, non-tender and non-distended Back/Spine normal ROM Extremity normal to inspection and no pedal edema Skin no rashes or lesions noted Neuro moves all extremities and no focal motor deficits Speech: speech normal Psych mental status grossly normal Results Lab / Micro Data 02/03/23 16:51 02/03/23 16:51 Labs: Laboratory Results - last 24 hr 02/03/23 16:39: POC Glucose 224 H 02/03/23 16:51: WBC 11.1 H, RBC 4.55, Hgb 13.0, Hct 39.7, MCV 87.3, MCH 28.6, MCHC 32.7, RDW Std Deviation 47.8 H, RDW Coeff of Laquita 15.0 H, Plt Count 279, MPV 10.6, Immature Gran % (Auto) 0.400, Neut % (Auto) 71.8 H, Lymph % (Auto) 18.0 L, [place] % (Auto) 7.0, Eos % (Auto) 2.2, Baso % (Auto) 0.6, Absolute Neuts (auto) 8.0 H, Absolute Lymphs (auto) 2.00, Nucleated RBC % 0, PT 47.3 H, INR 5.0 H*, APTT 44.5 H, Sodium 134 L, Potassium 3.8, Chloride 98, Carbon Dioxide 27.0, Anion Gap 9, BUN 48 H, Creatinine 2.22 H, Estim Creat Clear Calc 16.67, Est GFR (MDRD) Af Amer 27 L, Est GFR (MDRD) Non-Af 22 L, BUN/Creatinine Ratio 21.6 H, Glucose 227 H, Lactic Acid 1.4, Calcium 9.0, Total Bilirubin 0.40, AST 13 L, ALT 14, Alkaline Phosphatase 99, Troponin I High Sens 10, Total Protein 7.6, Albumin 3.3, Globulin 4.3 H, Albumin/Globulin Ratio 0.8 L 02/03/23 17:06: Urine Color Yellow, Urine Clarity Clear, Urine pH 5.0, Ur Specific [place] 1.010, Urine Protein Negative, Urine Glucose (UA) 1000 H, Urine Ketones Negative, Urine Occult Blood Negative, Urine Nitrite Negative, Urine Bilirubin Negative, Urine Urobilinogen Normal, Ur Leukocyte Esterase Negative, Urine RBC 0 SEEN, Urine WBC 0 SEEN, Ur Squamous Epith Cells 0 SEEN, Urine Bact eria 0 SEEN, Urine Mucus 0 SEEN Micro: Microbiology 02/03/23 16:51 Nasal Secretion SARS-CoV-2 & FLU Antigen (Rapid) - Final Rhythm Strip Rhythm Strip: Sinus bradycardia Rate: 51 Ectopy: PVC(s) Imagaing Radiology Impression Brain CT 02/03/23 16:40 IMPRESSION: Chronic changes as described with no acute intracranial hemorrhage or space-occupying lesion. Electronically Signed: Jenniffer Winter MD at 17:33 EST , Chest X-Ray 02/03/23 17:25 IMPRESSION: No acute cardiopulmonary disease. Electronically Signed: Jenniffer Winter MD at 17:50 EST , Assessment & Plan Assessment/Plan (1) Hypovolemia: (2) Acute on chronic renal insufficiency: (3) Transient hypotension: (4) Debility: PLAN: Plan Patient is an 87-year-old female who presented to [facility] ED on 02/03/2023 with altered mental status and hypotension. 1. Hypotension, improving Likely secondary to significant hypovolemia due to diuresis from home Jardiance and Lasix. Low concern for infection, WBC count 11 in ED but patient afebrile, chest x-ray clear, UA noninfectious. BP 77/61 on admit, much improved after 2 L IV fluids in the ED. ? Admit under inpatient status to PCU. Hold home Lasix and BP meds for now. Encouraged p.o. fluid intake, can consider further IV fluids as needed. Blood cultures ordered in ED, will follow-up, no need for antibiotics at this time. 2. Debility with frequent falls Previous admission at [facility] in 11/2022 for falls at home with worsening debility. Suspected to be mainly mechanical falls, in part due to her history of stroke. Patient was discharged home with home health care at that time. Uses walker to ambulate at home, denies any significant falls recently. On admit, family noted that they are in the planning process for moving patient to [facility] [place] for long-term care; has been complicated by finances, as patient first needs to qualify for Medicaid before she can be placed there per family. ? PT/OT/case management consulted. Fall precautions in place. 3. Altered mental status, resolved ? Likely secondary to hypotension on admission. CT head negative. Mentation significantly improved post IV fluid resuscitation, family stated patient was essentially back to her baseline. 4. Sinus bradycardia, improved ? Likely secondary to home Lopressor. Heart rate 46-50 bpm in the ED, EKG showed sinus bradycardia with PVCs with no concern for heart block. Heart rate improved to around 60 bpm while in the ED. Holding home Lopressor 50 mg twice daily for now. 5. 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 Creatinine 2.22, BUN 48 on admit. Baseline creatinine appears to be around 1.5-1.7. ? Follow-up a.m. BMP after IV fluid resuscitation in ED. Monitor urine output. Holding home Lasix. 6. Paroxysmal A-fib on Coumadin with supratherapeutic INR ? INR 5.0 on admit. Will hold home Coumadin, recheck INR tomorrow. EKG with sinus bradycardia in ED, holding rate controlling agents as noted above. 7. Type 2 diabetes mellitus Follows with [facility], last office visit on 08/29/2022. Home regimen then of Levemir 18 units at night, Humalog 23-x-20 with meals, 8 units with snacks. Was started on Jardiance 25 mg daily at that time. Patient unable to tell me her exact dosing in the ED but does report taking insulin as prescribed. Last A1c value of 7.9% on 07/29/2022, which was noted to be improved from previous. BG 227 in ED. UA did show 1000 glucose, presumed due to Jardiance. ? Will start Lantus 18 units at night, Humalog 8 units 3 times daily AC plus sliding scale insulin. Adjust as needed. A1c ordered. 8. CAD s/p CABG and stenting, hypertension, hyperlipidemia, stage I diastolic dysfunction Follows with [facility], last office visit on 01/13/2023. History of CABG x 3 in 2017, stent x 1 in 2019. Last echo on 07/19/2022 showed EF 65%, stage I diastolic dysfunction, no other significant abnormalities. Patient noted to be stable on her medications, no changes made at that time. ? Continue home aspirin and statin. Holding home Lasix, hydralazine, isosorbide mononitrate, Lopressor, Jardiance for now; restart as able. Chronic medical conditions: ? COPD on intermittent home 2 L: O2 sats in high 90s in ED on 2 L nasal cannula. Chest x-ray benign. Continue supplemental O2 as needed. ? Early onset dementia: Per patient and family. Not on any home medications for this. ? Hypothyroidism: Continue home Synthroid. ? History of CVA ? Overactive bladder: Holding home oxybutynin given patient's age and CKD, would recommend not resuming on discharge if patient is amenable to this. DVT prophylaxis: Holding warfarin as above CODE STATUS: Full code, verified Expected disposition: Home with [facility] versus SNF, 2 to 3 days Total clinical time spent by myself addressing the patient's medical issues, reviewing all the data, and collaborating with patient's care team: 55 minutes. Charges/Coding Visit Charges Inpatient E&M: 51380 Init Hosp L2
[2023-02-03 20:20] LABS: Bedside Glucose 164 mg/dL (74-106)
[2023-02-03] MEDS: Atorvastatin Calcium 40 MG Tablet PO (21:08)
[2023-02-03] MEDS: Gabapentin 600 MG Tablet PO (21:08)
[2023-02-03] MEDS: Insulin Glargine-YFGN 100 UNIT/ML Pen 18 UNIT SC (21:22)
[2023-02-04 02:30] VITALS: BP 123/38; PULSE 56; RESP 16; TEMP 36.6; O2SAT 96
[2023-02-04] MEDS: Gabapentin 600 MG Tablet PO ×3 (05:39→22:46)
[2023-02-04] MEDS: Levothyroxine 50 MCG Tablet PO (05:39)
[2023-02-04 06:30] LABS: Hematocrit 36.4 % (37-47); Hemoglobin 11.3 g/dL (12.0-15.0); Mean Corpuscular Hgb 27.7 pg (27.0-32.0); Mean Corpuscular Volume 89.2 fL (81-99); Platelet Count 239 K/mm3 (150-450); RBC Distribution Width SD 49.2 fl (35.1-43.9); Red Blood Count 4.08 M/mm3 (4.2-5.4); White Blood Count 9.8 K/mm3 (4.4-11.0)
[2023-02-04 06:46] LABS: Prothrombin Time (Protime)PT. 50.6 SECONDS (11.7-14.9)
[2023-02-04 06:54] LABS: Anion Gap 8 (5-15); BUN 45 mg/dL (7-18); Calcium,Total 8.5 mg/dL (8.5-10.1); Chloride 102 mmol/L (98-107); Creatinine, Serum 1.96 mg/dL (0.55-1.02); EST Glomerular Filtration Rate 26 mL/min (>60); Est Glom Filt Rate - Afr Amer 31 mL/min (>60); Estimated Creatinine Clearance 17.36 ml/min; Glucose 178 mg/dL (74-106); Potassium 3.4 mmol/L (3.5-5.1); Sodium Level 135 mmol/L (136-145)
[2023-02-04 06:59] LABS: International Normalized Ratio 5.4
[2023-02-04 07:26] VITALS: O2SAT 95
--- NOTE | 2023-02-04 07:50 | PN.HOSP_ITS ---
Reason for Visit Reason for Visit: Diagnoses Hypovolemia (02/03/23) Hypotension, unspecified (02/03/23) Chronic kidney disease, unspecified (02/03/23) Disorder of kidney and ureter, unspecified (02/03/23) Other malaise (02/03/23) Subjective Subjective Feels well. No new complaints. Objective Data Objective Data Vital Signs: Vital Signs Temp Pulse Resp BP Pulse Ox O2 Del Method O2 Flow Rate 36.6 C 56 L 16 123/38 H 96 Nasal Cannula 2 02/04/23 02:30 02/04/23 02:30 02/04/23 02:30 02/04/23 02:30 02/04/23 02:30 02/04/23 02:30 02/04/23 02:30 Oxygen Flow Rate (L/min) 2 Oxygen Delivery Method Nasal Cannula Weight: 72.4 kg Body Mass Index (BMI) 28.3 Intake & Output: Intake and Output for Last 24 Hours 02/02/23 02/03/23 02/04/23 23:59 23:59 23:59 Intake Total 1240 / 1240 Output Total 750 / 750 Balance 490 / 490 Lab / Micro Data 02/04/23 06:00 02/04/23 06:00 Labs: Laboratory Results - last 24 hr 02/03/23 16:39: POC Glucose 224 H 02/03/23 16:51: WBC 11.1 H, RBC 4.55, Hgb 13.0, Hct 39.7, MCV 87.3, MCH 28.6, MCHC 32.7, RDW Std Deviation 47.8 H, RDW Coeff of Laquita 15.0 H, Plt Count 279, MPV 10.6, Immature Gran % (Auto) 0.400, Neut % (Auto) 71.8 H, Lymph % (Auto) 18.0 L, Bond % (Auto) 7.0, Eos % (Auto) 2.2, Baso % (Auto) 0.6, Absolute Neuts (auto) 8.0 H, Absolute Lymphs (auto) 2.00, Nucleated RBC % 0, PT 47.3 H, INR 5.0 H*, APTT 44.5 H, Sodium 134 L, Potassium 3.8, Chloride 98, Carbon Dioxide 27.0, Anion Gap 9, BUN 48 H, Creatinine 2.22 H, Estim Creat Clear Calc 16.67, Est GFR (MDRD) Af Amer 27 L, Est GFR (MDRD) Non-Af 22 L, BUN/Creatinine Ratio 21.6 H, Glucose 227 H, Hemoglobin A1c 11.0 H, Lactic Acid 1.4, Calcium 9.0, Total Bilirubin 0.40, AST 13 L, ALT 14, Alkaline Phosphatase 99, Troponin I High Sens 10, Total Protein 7.6, Albumin 3.3, Globulin 4.3 H, Albumin/Globulin Ratio 0.8 L 02/03/23 17:06: Urine Color Yellow, Urine Clarity Clear, Urine pH 5.0, Ur Specific [place] 1.010, Urine Protein Negative, Urine Glucose (UA) 1000 H, Urine Ketones Negative, Urine Occult Blood Negative, Urine Nitrite Negative, Urine Bilirubin Negative, Urine Urobilinogen Normal, Ur Leukocyte Esterase Negative, Urine RBC 0 SEEN, Urine WBC 0 SEEN, Ur Squamous Epith Cells 0 SEEN, Urine Bacteria 0 SEEN, Urine Mucus 0 SEEN 02/03/23 20:02: POC Glucose 164 H 02/04/23 06:00: WBC 9.8, RBC 4.08 L, Hgb 11.3 L, Hct 36.4 L, MCV 89.2, MCH 27.7, MCHC 31.0 L D, RDW Std Deviation 49.2 H, RDW Coeff of Laquita 15.0 H, Plt Count 239, MPV 11.0, PT 50.6 H, INR 5.4 H*, Sodium 135 L, Potassium 3.4 L, Chloride 102, Carbon Dioxide 25.0, Anion Gap 8, BUN 45 H, Creatinine 1.96 H, Estim Creat Clear Calc 17.36, Est GFR (MDRD) Af Amer 31 L, Est GFR (MDRD) Non-Af 26 L, BUN/Creatinine Ratio 23.0 H, Glucose 178 H, Calcium 8.5 Micro: Microbiology 02/03/23 16:51 Nasal Secretion SARS-CoV-2 & FLU Antigen (Rapid) - Final Radiography Diagnostic Testing: Radiology Impression Brain CT 02/03/23 16:40 IMPRESSION: Chronic changes as described with no acute intracranial hemorrhage or space-occupying lesion. Electronically Signed: Jenniffer Winter MD at 17:33 EST , Chest X-Ray 02/03/23 17:25 IMPRESSION: No acute cardiopulmonary disease. Electronically Signed: Jenniffer Winter MD at 17:50 EST , Rhythm Strip Rhythm Strip: Sinus bradycardia Rate: 51 Ectopy: PVC(s) Physical Exam Const alert and no apparent distress HEENT head/scalp atraumatic and moist oral mucous membranes Resp normal respiratory effort, no retractions and no use of accessory muscles Cardio regular rate, regular rhythm, S1 normal heart sound and S2 normal heart sound GI normal to inspection, nondistended, normoactive bowel sounds, soft to palpation, non-tender and non-distended Extremity normal to inspection Assessment & Plan Assessment/Plan (1) Hypovolemia: (2) Acute on chronic renal insufficiency: (3) Transient hypotension: (4) Debility: PLAN: Plan Patient is an 87-year-old female who presented to [facility] ED on 02/03/2023 with altered mental status and hypotension. Hypotension, improving * BP 77/61 on admit. Suspect secondary to significant hypovolemia due to diuresis. * Low concern for infection, WBC count 11 in ED but patient afebrile, chest x- ray clear, UA noninfectious. * Hold furosemide, hydralazine, isosorbide * Improved with IVF. Supratherapeutic INR * hold warfarin * monitor Debility with frequent falls * Poor baseline performance status. Prior CVA and uses walker at baseline. * On admit, family noted that they are in the planning process for moving patient to [facility] in [place] for long-term care; has been complicated by finances, as patient first needs to qualify for Medicaid before she can be placed there per family. * PT/OT/case management consulted. Fall precautions in place. Encephalopathy * Likely secondary to hypotension on admission. CT head negative. Mentation significantly improved post IV fluid resuscitation, family stated patient was essentially back to her baseline. Sinus bradycardia, improved * Likely secondary to metoprolol. Continue to hold. * Improved. 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 * Baseline creatinine appears to be around 1.9 * Resume furosemide Chronic conditions: * Paroxysmal A-fib on Coumadin with supratherapeutic INR? INR 5.0 on admit. Will hold home Coumadin, recheck INR tomorrow. EKG with sinus bradycardia in ED, holding rate controlling agents as noted above. * Type 2 diabetes mellitus: Follows with [facility], last office visit on 08/29/2022. Home regimen then of Levemir 18 units at night, Humalog 23-x-20 with meals, 8 units with snacks. Was started on Jardiance 25 mg daily at that time. Patient unable to tell me her exact dosing in the ED but does report taking insulin as prescribed. Last A1c value of 7.9% on 07/29/2022, which was noted to be improved from previous. BG 227 in ED. UA did show 1000 glucose, presumed due to Jardiance. Will start Lantus 18 units at night, Humalog 8 units 3 times daily AC plus sliding scale insulin. Adjust as needed. A1c ordered. * CAD s/p CABG and stenting, hypertension, hyperlipidemia, stage I diastolic dysfunction Follows with [facility], last office visit on 01/13/2023. History of CABG x 3 in 2017, stent x 1 in 2019. Last echo on 07/19/2022 showed EF 65%, stage I diastolic dysfunction, no other significant abnormalities. Patient noted to be stable on her medications, no changes made at that time. Continue home aspirin and statin. Holding home Lasix, hydralazine, isosorbide mononitrate, Lopressor, Jardiance for now; restart as able. * COPD on intermittent home 2 L: O2 sats in high 90s in ED on 2 L nasal cannula. Chest x-ray benign. Continue supplemental O2 as needed. * Early onset dementia: Per patient and family. Not on any home medications for this. * Hypothyroidism: Continue home Synthroid. * History of CVA * Overactive bladder: Holding home oxybutynin given patient's age and CKD, would recommend not resuming on discharge if patient is amenable to this. DVT prophylaxis: not indicated. already on anticoagulation CODE STATUS: Full code, verified Expected disposition: Home with [facility] in 1-2 days. Charges/Coding Visit Charges Inpatient E&M: 45043 Subs Hosp L2
[2023-02-04 08:12] VITALS: BP 145/58; PULSE 58; RESP 16; TEMP 36.6; O2SAT 96
[2023-02-04] MEDS: Insulin Lispro 100 UNIT/ML INSULN.PEN 8 UNIT SC ×3 (08:20→16:55)
[2023-02-04] MEDS: Insulin Lispro 100 UNIT/ML INSULN.PEN SC ×3 (08:21→22:44)
[2023-02-04] MEDS: DULoxetine Hcl 30 MG Capsule PO (08:22)
[2023-02-04] MEDS: Aspirin E.C. 81 MG Tablet PO (08:22)
[2023-02-04 08:54] LABS: Bedside Glucose 155 mg/dL (74-106)
[2023-02-04 12:00] LABS: Bedside Glucose 203 mg/dL (74-106)
[2023-02-04 14:23] VITALS: BP 133/66; PULSE 64; RESP 16; TEMP 36.9; O2SAT 92
--- NOTE | 2023-02-04 15:30 | CASEMGMT ---
Care Management Face to Face with patient, , daughter and son-in-law for initial transition planning/care coordination assessment.? This science writer introduced self and role at [facility]. Patient gave verbal permission for family to be present for SW visit. Patient lying in bed, alert and oriented. Patient willing to participate in assessment and is able to answer questions appropriately though family did intermittently provide clarifications and expansion to patient's answers. ? Care providers, pharmacy, and demographics verified. Admitting Diagnosis: Hypotension; Debility with frequent falls Other diagnosis history: History of CVA, AFib, CHF; CKD, stage 3b PCP: Jose J Lezama Specialists: Dr Angel/Diabetes; Dr. Andersen/Nephrology; [facility] Preferred Pharmacy: [facility] Insurance: [employer] Medicare; Reportedly about 2 weeks away from being approved for Medicaid. Prescription Benefit:? Yes Living Will/HPOA: Does not currently have, but interested in completing while at the hospital. LNOK: Patient's and daughter Sherrie. Living Arrangements: Currently lives at [facility] with . Has lived in this home for a couple of years now. Home is one floor, no steps to enter. Daughter Sherrie has been helping in the home daily with household tasks and meals. Transportation: or daughter DME: Shower Chair, Raised Toilet Seat, Rollator, Wheelchair, CPAP, Pulse Ox; History of Home O2 though not current; Uses [employer]. HHC History: [facility]; Per , not current SNF History: [facility] - has only been out of [facility] for about 3-4 weeks. Family has been looking at [facility] for press tender long goods placement, with hopes of being able to make that move in the next couple of weeks. Community Resources: Working with an squeegee tender for Medicaid. Patient/Family goals: Patient agreeable to go to SNF at discharge, as the plan has been to transition to a NF in the next few weeks anyway. As [facility] has been considered for shelter care, patient and family would like [facility] to be looked at for short term skilled care from the hospital. Declined list of preferences from [facility]. reports to know there may be better rated facilities than [facility], but appreciate patient will have a private room and the family does know how to advocate for patient when needed. Education to patient/family: Educated that as patient has only been out of [facility] for about a month now, that if approved by insurance for SNF, then would likely be going on original benefit period, due to not having a 60 day break from last episode of skilled services. Let family know would have to speak with insurance to determine exact benefits. As the patient and family made comments about patient having many medications, and doctors caring for patient's medical needs, this science writer educated to palliative care service. Educated that this program can also follow at the NF. Daughter reports to have a family member who was just recommending this. Disposition Plan: NF placement, attempt skilled authorization with insurance; pending referral to [facility]. Discharge lpn or medical assistant will sent NF referral to [facility]. -SHONDA Gaston
--- NOTE | 2023-02-04 15:39 | CASEMGMT ---
Addendum entered by Clara Grover 02/06/23 09:41: Patient has been accepted by [facility]. Precert submitted on 02/04/23 and is still pending as of this morning. Clara Grover, Discharge Planning Asst. Original Note: Discharge Planning Referral sent to Berna at [place] via [facility]. Clara Grover, Discharge Planning Asst.
[2023-02-04 16:48] LABS: Bedside Glucose 137 mg/dL (74-106)
[2023-02-04 21:00] VITALS: BP 156/73; PULSE 70; RESP 16; TEMP 36.9; O2SAT 93
[2023-02-04 22:45] VITALS: BP 156/73; PULSE 70
[2023-02-04] MEDS: Atorvastatin Calcium 40 MG Tablet PO (22:45)
[2023-02-04] MEDS: Metoprolol Tartrate 25 MG Tablet PO (22:45)
[2023-02-04] MEDS: Insulin Glargine-YFGN 100 UNIT/ML Pen 18 UNIT SC (22:45)
[2023-02-04 23:17] LABS: Bedside Glucose 186 mg/dL (74-106)
[2023-02-05] VITALS (7 sets, daily range): BP systolic 122–144; BP diastolic 52–63; PULSE 61–71; RESP 16–18; TEMP 36.4–36.8; O2SAT 90–95
[2023-02-05 05:59] LABS: Absolute Neutrophil Count 8.2 X10^3/uL (2.0-7.7); Basophil# 0.06 X10^3/uL; Basophil% 0.5 % (0-1); Eosinophils% 2.6 % (0-5); Hematocrit 38.7 % (37-47); Hemoglobin 11.9 g/dL (12.0-15.0); Lymphocyte % 18.1 % (19-41); Mean Corp Hgb Conc 30.7 g/dL (32-36); Mean Corpuscular Hgb 27.5 pg (27.0-32.0); Mean Corpuscular Volume 89.6 fL (81-99); Mean Platelet Vol. 10.9 fl (6.2-12.0); Monocyte# 0.91 X10^3/uL; Monocyte% 7.8 % (0-10); NRBC Flagged by Analyzer 0 % (0-5); Neutrophil # 8.22 X10^3/uL (2.7-7.7); Neutrophil % 70.7 % (47-70); Platelet Count 248 K/mm3 (150-450); RBC Distribution Width SD 49.3 fl (35.1-43.9); Red Blood Count 4.32 M/mm3 (4.2-5.4); White Blood Count 11.6 K/mm3 (4.4-11.0)
[2023-02-05 06:19] LABS: International Normalized Ratio 2.7; Prothrombin Time (Protime)PT. 28.8 SECONDS (11.7-14.9)
[2023-02-05] MEDS: Levothyroxine 50 MCG Tablet PO (06:20)
[2023-02-05] MEDS: Gabapentin 600 MG Tablet PO ×3 (06:20→20:37)
[2023-02-05 06:22] LABS: Anion Gap 9 (5-15); BUN 37 mg/dL (7-18); Calcium,Total 8.6 mg/dL (8.5-10.1); Chloride 107 mmol/L (98-107); Creatinine, Serum 1.54 mg/dL (0.55-1.02); EST Glomerular Filtration Rate 34 mL/min (>60); Est Glom Filt Rate - Afr Amer 41 mL/min (>60); Estimated Creatinine Clearance 22.09 ml/min; Glucose 233 mg/dL (74-106); Potassium 3.5 mmol/L (3.5-5.1); Sodium Level 139 mmol/L (136-145)
[2023-02-05] MEDS: Insulin Lispro 100 UNIT/ML INSULN.PEN 8 UNIT SC (07:50)
[2023-02-05] MEDS: Insulin Lispro 100 UNIT/ML INSULN.PEN SC ×4 (07:50→20:31)
[2023-02-05 08:11] LABS: Bedside Glucose 250 mg/dL (74-106)
--- NOTE | 2023-02-05 09:11 | PN.HOSP_ITS ---
Reason for Visit Reason for Visit: Hypotension/altered mental status Subjective Subjective Mrs. Rosa is an 87-year-old white female who presented to the emergency department at [facility] on 02/03/2023 with altered mental status and hypotension. She presented with her daughter who assisted with the interview. Her daughter reported that she appeared very fatigued and was becoming more confused earlier on the day of presentation. At baseline she lives at home with her but the daughter helps fairly often. They took her blood pressure and noted that she was 70 systolic and saw her heart rate was in the 40s so they called EMS. She did evidently have an episode of nausea with vomiting on the day of presentation prior to coming to the emergency department. Patient denied fever or chills, chest pain or shortness of breath, abdominal pain, ongoing nausea, lightheadedness or dizziness. At the time of hospitalist evaluation the patient had received 2 L of IV fluids and was lying in bed comfortably and alert and oriented x 3 with no acute distress and the daughter indicated she felt like she looked much better. The daughter reported that the patient's thought she looked volume overloaded and gave her 2 extra do ses of Lasix for few days prior to presentation. Patient stated that she drinks a lot of water at home and does feel thirsty frequently. Vital signs on presentation show that she was afebrile but was bradycardic with heart rates in the 40s, blood pressure was initially 77/61, oxygen saturation was 90% on room air however the patient at baseline wears 2 L nasal cannula. Her CBC was overtly unimpressive. Her INR was 5.0. Her chemistry panel showed mild hyponatremia with a sodium of 134 which has since resolved, and elevated BUN and serum creatinine at 48 and 2.22 respectively, hyperglycemia with a glucose of 227 and normal liver functions. Her lactic acid was normal at 1.4. COVID and flu testing were unremarkable. Urine and blood cultures were obtained and urine culture is with no growth to date blood cultures remain pending. Infection was thought to be low yield so she was not placed on antibiotics. Her antihypertensives were held including her diuretics and she was admitted to the medical floor. Her renal function slowly improved with time to the point where it is now 1.54. Baseline is unclear. Her hemoglobin A1c was found to be markedly elevated 11.0 and we did address this with alterations in her insulin regimen. Social work and case management with the patient after she was seen by physical and Occupational Therapy. They recommended ongoing therapy services af ter discharge in a skilled facility. Family did report that they were planning on trying to transition her to an ECF and were amenable to discharge to the [facility] for skilled facility when she was medically ready. Patient states she is feeling okay overall. Much improved since presentation. No complaints at this time. Objective Data Objective Data Vital Signs: Vital Signs Temp Pulse Resp BP Pulse Ox O2 Del Method O2 Flow Rate 97.7 F L 61 16 143/58 H 93 Room Air 3 02/05/23 03:00 02/05/23 03:00 02/05/23 03:00 02/05/23 03:00 02/05/23 03:00 02/05/23 03:00 02/04/23 14:27 Oxygen Flow Rate (L/min) 3 Oxygen Delivery Method Room Air Weight: 72.4 kg Body Mass Index (BMI) 28.3 Intake & Output: Intake and Output for Last 24 Hours 02/03/23 02/04/23 02/05/23 23:59 23:59 23:59 Intake Total 1240 / 1240 Output Total 750 / 750 0 / 0 Balance 490 / 490 Lab / Micro Data 02/05/23 05:35 02/05/23 05:35 Labs: Laboratory Results - last 24 hr 02/04/23 11:34: POC Glucose 203 H 02/04/23 16:26: POC Glucose 137 H 02/04/23 22:43: POC Glucose 186 H 02/05/23 05:35: WBC 11.6 H, RBC 4.32, Hgb 11.9 L, Hct 38.7, MCV 89.6, MCH 27.5, MCHC 30.7 L, RDW Std Deviation 49.3 H, RDW Coeff of Laquita 15.0 H, Plt Count 248, MPV 10.9, Immature Gran % (Auto) 0.300, Neut % (Auto) 70.7 H, Lymph % (Auto) 18.1 L, Waller % (Auto) 7.8, Eos % (Auto) 2.6, Baso % (Auto) 0.5, Absolute Neuts (auto) 8.2 H, Absolute Lymphs (auto) 2.10, Nucleated RBC % 0, PT 28.8 H, INR 2.7, Sodium 139, Potassium 3.5, Chloride 107, Carbon Dioxide 23.0, Anion Gap 9, BUN 37 H, Creatinine 1.54 H, Estim Creat Clear Calc 22.09, Est GFR (MDRD) Af Amer 41 L, Est GFR (MDRD) Non-Af 34 L, BUN/Creatinine Ratio 24.0 H, Glucose 233 H, Calcium 8.6 02/05/23 07:45: POC Glucose 250 H Micro: Microbiology 02/03/23 17:06 Urine, Catheterized Urine Culture - Preliminary Culture exhibits no growth. 02/03/23 16:51 Nasal Secretion SARS-CoV-2 & FLU Antigen (Rapid) - Final Rhythm Strip Rhythm Strip: Sinus bradycardia Rate: 51 Ectopy: PVC(s) Physical Exam Const alert, oriented x3, no apparent distress and well nourished Constitutional Narrative: Elderly, white female, sitting up in a chair at the bedside, appears comfortable and nontoxic, watching television, has just completed lunch HEENT head/scalp atraumatic and moist oral mucous membranes HEENT Narrative: Mallampati 2-3, no thrush Head and Scalp: normocephalic Resp normal respiratory effort, no retractions, no use of accessory muscles and clear to auscultation bilaterally Auscultation: Negative for rales, rhonchi or wheezes Cardio regular rate, regular rhythm, S1 normal heart sound, S2 normal heart sound, no murmurs, no rub, no gallops and no clicks GI normal to inspection, nondistended, normoactive bowel sounds, soft to palpation and non-tender Extremity no clubbing, cyanosis or edema Extremity Narrative: 2+ pedal pulses, 2+ radial pulses Neuro oriented x3, moves all extremities and no focal motor deficits Speech: speech normal Psych affect normal Psych Narrative: Very pleasant, interacts appropriately Assessment & Plan Assessment/Plan (1) Debility: (2) Hypovolemia: (3) Warfarin-induced coagulopathy: (4) SHA (acute kidney injury): (5) Falls: (6) Toxic metabolic encephalopathy: (7) Bradycardia: PLAN: Plan Hypotension -Resolved -Likely related to overdiuresis -Will continue to hold hydralazine and Lasix -Restart isosorbide as blood pressures are trending up 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 Hypokalemia -Resolved -Continue to monitor Bradycardia -Resolved -Likely related to metoprolol in the setting of renal failure -Metoprolol restarted at 25 mg p.o. twice daily -Previous dose was 50 mg p.o. twice daily -Heart rates remained stable and no longer severely bradycardic Toxic/metabolic encephalopathy -Likely related to SHA and hypotension on admission -CT of the head was negative -Mentation is dramatically improved -Family reports she is essentially back to her baseline Supratherapeutic INR -INR on presentation was 5.0 -Down to 2.7 today -Will restart warfarin at 2 mg daily -Repeat INR in a.m. Falls/debility -PT/OT following -Plan is for discharge to the [facility] once pre-CERT is obtained and she has been accepted PAF -Continue metoprolol at lower dose -Restart Coumadin at 2 mg daily with previous dose being 4 mg daily now that INR is down to 2.7 -Continue to monitor -Currently sinus DM-2 -Patient reported she not been compliant with her insulin regimen -Hemoglobin A1c was 11 -Fasting blood sugar was markedly elevated at 233 this morning -Crease basal insulin from 18-24 -Increase prandial insulin from 8-12 CAD/HTN/HPL/stage I diastolic dysfunction -Status post CABG x 3 in 2017 -PCI with RAMONA x 1 in 2019 -Last echocardiogram was July 2022 and showed an EF of 65% with stage I diastolic dysfunction -Continue to hold home Lasix -Continue hold home hydralazine -Restart isosorbide mononitrate -Continue metoprolol 25 mg p.o. twice daily -Continue home atorvastatin -Continue home aspirin -Continue to hold home Jardiance and would recommend discontinuing with her fluctuating renal function and her estimated GFR is only 34 -Jardiance is contraindicated with an estimated GFR of less than 30 Chronic hypoxic respiratory failure secondary to COPD -Patient is on 2 L at baseline -Remains stable with this -Patient is on no inhaler therapy at home -Continue to monitor clinically Hypothyroidism -Continue home Synthroid History of stroke -Continue anticoagulation and primary risk factor modification Overactive bladder -Continue to hold home oxybutynin and would not restart at discharge due to frequent falls and anticholinergic effect Early onset dementia -Mental status back to baseline -Dementia is mild -Patient is on no medications DVT prophylaxis -Continue full anticoagulation CODE STATUS -Full code Disposition: -Awaiting precertification from the insurance company for discharge to the [facility]--> patient is medically stable for discharge at this time Charges/Coding Visit Charges Inpatient E&M: 66033 Subs Hosp L2
[2023-02-05] MEDS: Aspirin E.C. 81 MG Tablet PO (09:25)
[2023-02-05] MEDS: DULoxetine Hcl 30 MG Capsule PO (09:26)
[2023-02-05] MEDS: Metoprolol Tartrate 25 MG Tablet PO ×2 (09:26→20:29)
[2023-02-05] MEDS: Furosemide 20 MG Tablet PO (09:26)
[2023-02-05] MEDS: Isosorbide Mononitrate 60 MG Tablet PO (09:31)
[2023-02-05] MEDS: Insulin Lispro 100 UNIT/ML INSULN.PEN 12 UNIT SC ×2 (11:55→16:47)
[2023-02-05 12:22] LABS: Bedside Glucose 244 mg/dL (74-106)
[2023-02-05] MEDS: Jantoven 2 MG Tablet PO (16:49)
--- NOTE | 2023-02-05 17:04 | CASEMGMT ---
Advanced Directive Validation Power of Customer Specialist for health care and Living will both completed with patient (and patient's ) this date. Copy placed on patient's chart. Daughter Sherrie Zhang is first [facility]. [phone] Grandson Ziggy Harris is second [facility]. [phone] , [place], is listed first on the Living Will. Patient has specified that does not want chest compressions, Does not want to be on a ventilator but would like to have oxygen. Updated Carmen HENDRICKS and Amanda, coil cleaner Dawn regarding Chest Compressions, as this public relations writer noted patient is currently listed as a full code. -SHONDA Gaston
[2023-02-05 17:08] LABS: Bedside Glucose 178 mg/dL (74-106)
--- OUTSIDE RECORDS SUMMARY | 2023-02-05 17:50 | XMS RPT_ITS | CCD ---
Author Name Unknown Address [address] [place] [address] [id number] [place] [address] Organization [facility] Results Test Name Value Interpretation Reference Range Facil ity Summary Purpose Family History No Family History Records Found Advance Directives No Advanced Directives Records Found Additional Source Comments INFORMATION SOURCE (unrecogn ized section and content) FOR RECORDS PERTAINING TO PATIENTS WHO ARE OR HAVE BEEN ENROLLED IN A CHEMICAL DEPENDENCY/SUBSTANCEABUSE PROGRAM, SOME INFORMATION MAY BE OMITTED. This clinical summary was aggregated from multiple sources. Caution should be exercised in using it in the provision of clinical care. This summary normalizes information from multiple sources, and as a consequence, information in this document may materially change the coding, format and clinical context of patient data. In addition, data may be omitted in some cases. CLINICAL DECISIONS SHOULD BE BASED ON THE PRIMARY CLINICAL RECORDS. [employer] provides no warranty or guarantee of the accuracy or completeness of information in this document.
--- OUTSIDE RECORDS SUMMARY | 2023-02-05 17:50 | XMS RPT_ITS | CCD ---
Author Name Unknown Address [address] [place] [address] [id number] [place] [address] Organization [facility] Results Test Name Value Interpretation [...] BE BASED ON THE PRIMARY CLINICAL RECORDS. [employer] provides no warranty or guarantee of the accuracy or completeness of information in this document.
[2023-02-05] MEDS: Atorvastatin Calcium 40 MG Tablet PO ×2 (20:29→20:37)
[2023-02-05] MEDS: Insulin Glargine-YFGN 100 UNIT/ML Pen 24 UNIT SC (20:30)
[2023-02-06] VITALS (11 sets, daily range): BP systolic 116–154; BP diastolic 60–75; PULSE 59–70; RESP 16–18; TEMP 35.8–36.6; O2SAT 90–94
[2023-02-06 01:16] LABS: Bedside Glucose 175 mg/dL (74-106)
[2023-02-06 04:28] LABS: Absolute Lymphocyte Count 2.31 X10^3/uL (0.83-4.51); Absolute Neutrophil Count 7.5 X10^3/uL (2.0-7.7); Basophil# 0.07 X10^3/uL; Basophil% 0.6 % (0-1); Eosinophil# 0.35 X10^3/uL; Eosinophils% 3.1 % (0-5); Hematocrit 35.7 % (37-47); Lymphocyte # 2.31 X10^3/ul (0.83-4.51); Lymphocyte % 20.6 % (19-41); Mean Corp Hgb Conc 30.8 g/dL (32-36); Mean Corpuscular Hgb 27.8 pg (27.0-32.0); Mean Corpuscular Volume 90.2 fL (81-99); Mean Platelet Vol. 11.3 fl (6.2-12.0); NRBC Flagged by Analyzer 0 % (0-5); Neutrophil # 7.54 X10^3/uL (2.7-7.7); Neutrophil % 67.3 % (47-70); Platelet Count 226 K/mm3 (150-450); RBC Distribution Width CV 15.1 % (11.6-14.6); RBC Distribution Width SD 49.4 fl (35.1-43.9); Red Blood Count 3.96 M/mm3 (4.2-5.4); White Blood Count 11.2 K/mm3 (4.4-11.0)
[2023-02-06 04:43] LABS: International Normalized Ratio 2.1; Prothrombin Time (Protime)PT. 23.4 SECONDS (11.7-14.9)
[2023-02-06 04:47] LABS: Anion Gap 9 (5-15); BUN 45 mg/dL (7-18); BUN/Creat Ratio 27.6 RATIO (10-20); Calcium,Total 8.4 mg/dL (8.5-10.1); Chloride 106 mmol/L (98-107); Creatinine, Serum 1.63 mg/dL (0.55-1.02); EST Glomerular Filtration Rate 32 mL/min (>60); Est Glom Filt Rate - Afr Amer 39 mL/min (>60); Estimated Creatinine Clearance 20.87 ml/min; Glucose 272 mg/dL (74-106); Potassium 3.6 mmol/L (3.5-5.1); Sodium Level 138 mmol/L (136-145)
[2023-02-06] MEDS: Levothyroxine 50 MCG Tablet PO (05:28)
[2023-02-06] MEDS: Gabapentin 600 MG Tablet PO ×3 (05:28→19:58)
[2023-02-06] MEDS: Aspirin E.C. 81 MG Tablet PO (08:08)
[2023-02-06] MEDS: Insulin Lispro 100 UNIT/ML INSULN.PEN SC ×4 (08:08→20:03)
[2023-02-06] MEDS: Insulin Lispro 100 UNIT/ML INSULN.PEN 12 UNIT SC ×3 (08:08→16:18)
[2023-02-06] MEDS: Acetaminophen 325 MG Tablet 650 MG PO ×2 (08:13→15:14)
[2023-02-06 08:27] LABS: Bedside Glucose 278 mg/dL (74-106)
[2023-02-06] MEDS: DULoxetine Hcl 30 MG Capsule PO (10:09)
[2023-02-06] MEDS: Metoprolol Tartrate 25 MG Tablet PO ×2 (10:10→19:55)
[2023-02-06] MEDS: Isosorbide Mononitrate 60 MG Tablet PO (10:10)
--- NOTE | 2023-02-06 11:02 | CASEMGMT ---
Discharge Planning A list of HH providers including quality and resource use data and consistent with the patient's preferred geographic region, medical needs, and insurance network was created in [facility].? This list was provided to the SW. Clara Grover Discharge Planning Asst.
[2023-02-06 11:57] LABS: Bedside Glucose 271 mg/dL (74-106)
[2023-02-06] MEDS: hydrALAZINE 50 MG Tablet 100 MG PO ×3 (15:10→19:58)
[2023-02-06] MEDS: Jantoven 2 MG Tablet PO (16:20)
[2023-02-06 16:40] LABS: Bedside Glucose 242 mg/dL (74-106)
--- NOTE | 2023-02-06 16:47 | PCM.PN.HOSP ---
Reason for Visit Reason for Visit: Hypotension/altered mental status Subjective Subjective No significant issues overnight. Patient states she is feeling okay. No complaints today. Still awaiting approval from insurance company. Objective Data Objective Data Vital Signs: Vital Signs Temp Pulse Resp BP Pulse Ox O2 Del Method O2 Flow Rate 97.8 F 59 L 16 116/60 91 Room Air 3 02/06/23 14:00 02/06/23 15:10 02/06/23 14:00 02/06/23 15:10 02/06/23 14:00 02/06/23 14:00 02/04/23 14:27 Oxygen Flow Rate (L/min) 3 Oxygen Delivery Method Room Air Weight: 72.4 kg Body Mass Index (BMI) 28.3 Intake & Output: Intake and Output for Last 24 Hours 02/04/23 02/05/23 02/06/23 23:59 23:59 23:59 Intake Total 620 / 740 240 / 240 Output Total 0 / 0 2 / 2 Balance 620 / 740 238 / 238 Lab / Micro Data 02/06/23 03:59 02/06/23 03:59 Labs: Laboratory Results - last 24 hr 02/05/23 16:45: POC Glucose 178 H 02/05/23 20:26: POC Glucose 175 H 02/06/23 03:59: WBC 11.2 H, RBC 3.96 L, Hgb 11.0 L, Hct 35.7 L, MCV 90.2, MCH 27.8, MCHC 30.8 L, RDW Std Deviation 49.4 H, RDW Coeff of Laquita 15.1 H, Plt Count 226, MPV 11.3, Immature Gran % (Auto) 0.400, Neut % (Auto) 67.3, Lymph % (Auto) 20.6, Crockett % (Auto) 8.0, Eos % (Auto) 3.1, Baso % (Auto) 0.6, Absolute Neuts (auto) 7.5, Absolute Lymphs (auto) 2.31, Nucleated RBC % 0, PT 23.4 H, INR 2.1, Sodium 138, Potassium 3.6, Chloride 106, Carbon Dioxide 23.0, Anion Gap 9, BUN 45 H, Creatinine 1.63 H, Estim Creat Clear Calc 20.87, Est GFR (MDRD) Af Amer 39 L, Est GFR (MDRD) Non-Af 32 L, BUN/Creatinine Ratio 27.6 H, Glucose 272 H, Calcium 8.4 L 02/06/23 08:06: POC Glucose 278 H 02/06/23 11:25: POC Glucose 271 H 02/06/23 16:16: POC Glucose 242 H Micro: Microbiology 02/03/23 18:12 Blood Culture (Wb) - Left Wrist Blood Culture - Preliminary No growth in 48 hours. 02/03/23 16:51 Blood Culture (Wb) - Right Wrist Blood Culture - Preliminary No growth in 48 hours. 02/03/23 17:06 Urine, Catheterized Urine Culture - Final Culture exhibits no growth. 02/03/23 16:51 Nasal Secretion SARS-CoV-2 & FLU Antigen (Rapid) - Final Rhythm Strip Rhythm Strip: Sinus bradycardia Rate: 51 Ectopy: PVC(s) Physical Exam Const alert, no apparent distress, average body habitus and well nourished Constitutional Narrative: Elderly, white female, sitting up in bed, at bedside, appears comfortable and nontoxic General Appearance: cooperative HEENT normocephalic, head/scalp atraumatic, hearing grossly normal bilaterally and moist oral mucous membranes Resp normal respiratory effort, normal air movement, no retractions, no use of accessory muscles and clear to auscultation bilaterally Auscultation: Negative for rales, rhonchi or wheezes Cardio regular rate, regular rhythm, S1 normal heart sound, S2 normal heart sound, no murmurs, no rub, no gallops and no clicks GI normal to inspection, nondistended, normoactive bowel sounds, soft to palpation and non-tender Extremity normal to inspection, no clubbing, cyanosis or edema and no pedal edema Extremity Narrative: 2+ pedal pulses, 2+ radial pulses Neuro oriented x3, moves all extremities and no focal motor deficits Speech: speech normal Psych mental status grossly normal and affect normal Psych Narrative: Very pleasant, interacts appropriately Assessment & Plan Assessment/Plan (1) Debility: (2) Hypovolemia: (3) Warfarin-induced coagulopathy: (4) SHA (acute kidney injury): (5) Falls: (6) Toxic metabolic encephalopathy: (7) Bradycardia: PLAN: Plan Hypotension -Resolved and remained stable blood pressures trending up -Likely related to overdiuresis -Hold Lasix 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 Hypokalemia -Remained stable Bradycardia -Resolved -Likely related to metoprolol in the setting of renal failure -No heart rates under 50 with lowest being 59 -Continue metoprolol 25 mg daily and will discharge on this lower dose Toxic/metabolic encephalopathy -Likely related to SHA and hypotension on admission -CT of the head was negative -Mentation is dramatically improved -Family reports she is essentially back to her baseline Supratherapeutic INR -INR on presentation was 5.0 -INR from 2.7 yesterday to 2.1 today -Repeat INR in a.m. -Continue Coumadin 2 mg--> dose was reduced but may require up titration depending on tomorrow INR -Repeat INR in a.m. Falls/debility -PT/OT following -Plan is for discharge to the [facility] once pre-CERT is obtained and she has been accepted -Insurance company does not approve plan is for discharge home--> patient and family are declining home health care PAF -Continue metoprolol at lower dose -Continue Coumadin 2 mg for now -Continue to monitor -Currently sinus DM-2 -Patient reported she not been compliant with her insulin regimen -Hemoglobin A1c was 11 -Fasting blood sugar was markedly elevated at 233 this morning -Increase basal insulin to 15 units twice daily -Continue prandial insulin at 12 units -Continue sliding scale -Continue Accu-Cheks as ordered CAD/HTN/HPL/stage I diastolic dysfunction -Status post CABG x 3 in 2017 -PCI with RAMONA x 1 in 2019 -Last echocardiogram was July 2022 and showed an EF of 65% with stage I diastolic dysfunction -Continue to hold home Lasix -Restart home hydralazine -Continue isosorbide mononitrate -Continue metoprolol 25 mg p.o. twice daily -Continue home atorvastatin -Continue home aspirin -Continue to hold home Jardiance and would recommend discontinuing with her fluctuating renal function and her estimated GFR is only 34 -Jardiance is contraindicated with an estimated GFR of less than 30 Chronic hypoxic respiratory failure secondary to COPD -Patient is on 2 L at baseline -Currently on room air with saturations at 90 to 92% Hypothyroidism -Continue home Synthroid History of stroke -Continue anticoagulation and primary risk factor modification Overactive bladder -Continue to hold home oxybutynin and would not restart at discharge due to frequent falls and anticholinergic effect Early onset dementia -Mental status back to baseline -Dementia is mild -Patient is on no medications DVT prophylaxis -Continue full anticoagulation CODE STATUS -Full code Disposition: -Awaiting precertification from the insurance company for discharge to the [facility]--> patient is medically stable for discharge at this time -If denied by the insurance company patient will likely need to be discharged home and family is in agreements but would prefer discharge to skilled facility for continued help Charges/Coding Visit Charges Inpatient E&M: 41254 Subs Hosp L2
[2023-02-06] MEDS: Atorvastatin Calcium 40 MG Tablet PO (19:55)
[2023-02-06] MEDS: Insulin Glargine-YFGN 100 UNIT/ML Pen 15 UNIT SC (20:05)
[2023-02-06 20:49] LABS: Bedside Glucose 185 mg/dL (74-106)
[2023-02-07] VITALS (7 sets, daily range): BP systolic 124–149; BP diastolic 52–64; PULSE 63–67; RESP 16; TEMP 36.1–37; O2SAT 93–97
[2023-02-07] MEDS: Levothyroxine 50 MCG Tablet PO (03:25)
[2023-02-07] MEDS: Gabapentin 600 MG Tablet PO ×2 (03:25→14:46)
[2023-02-07] MEDS: Acetaminophen 325 MG Tablet 650 MG PO ×2 (03:25→10:24)
[2023-02-07 06:30] LABS: International Normalized Ratio 1.6; Prothrombin Time (Protime)PT. 19.5 SECONDS (11.7-14.9)
[2023-02-07 06:39] LABS: Anion Gap 10 (5-15); BUN 41 mg/dL (7-18); BUN/Creat Ratio 24.8 RATIO (10-20); Calcium,Total 8.3 mg/dL (8.5-10.1); Chloride 108 mmol/L (98-107); Creatinine, Serum 1.65 mg/dL (0.55-1.02); EST Glomerular Filtration Rate 31 mL/min (>60); Est Glom Filt Rate - Afr Amer 38 mL/min (>60); Estimated Creatinine Clearance 20.62 ml/min; Glucose 354 mg/dL (74-106); Potassium 3.7 mmol/L (3.5-5.1); Sodium Level 140 mmol/L (136-145)
[2023-02-07] MEDS: Insulin Lispro 100 UNIT/ML INSULN.PEN SC ×2 (08:09→11:06)
[2023-02-07] MEDS: Metoprolol Tartrate 25 MG Tablet PO (08:10)
[2023-02-07] MEDS: Furosemide 20 MG Tablet PO (08:10)
[2023-02-07] MEDS: DULoxetine Hcl 30 MG Capsule PO (08:10)
[2023-02-07] MEDS: Isosorbide Mononitrate 60 MG Tablet PO (08:10)
[2023-02-07] MEDS: Aspirin E.C. 81 MG Tablet PO (08:10)
[2023-02-07] MEDS: Insulin Glargine-YFGN 100 UNIT/ML Pen 20 UNIT SC (08:11)
[2023-02-07] MEDS: Heparin Injection (Vial) 5,000 UNIT/ML VIAL 5000 UNIT SC (08:16)
[2023-02-07] MEDS: Insulin Lispro 100 UNIT/ML INSULN.PEN 15 UNIT SC ×2 (08:17→11:05)
[2023-02-07 08:31] LABS: Bedside Glucose 404 mg/dL (74-106)
--- NOTE | 2023-02-07 09:31 | CASEMGMT ---
Patient has been denied by insurance for [facility]. SW will talk with family and notify them of denial. Miriam Cevallos PRODUCT DESIGN MANAGER [facility]
[2023-02-07 11:45] LABS: Bedside Glucose 397 mg/dL (74-106)
--- NOTE | 2023-02-07 12:36 | CASEMGMT ---
GI spoke with patient, her daughter, and . GI explained insurance did deny patient for [facility]. The agreed that the plan is to go home. SW asked again about home health and they all denied the need. They asked if patient could leave today. GI spoke with physician and she will send patient today. However, physician does want to come and talk with patient and family. SW let patient and family know physician will be coming over to talk with them. They thanked GI. Miriam Cevallos FOOD SCIENCE TECHNICIAN [facility]
--- NOTE | 2023-02-07 13:58 | PCM.DC.SUM ---
Providers Date of Admission: 02/03/23 Date of Discharge: 02/07/23 Primary Care Physician: Dr. Jose J Lezama DO Reason For Visit: HYPOTENSION, SHA, UNCONTROLLED T2DM Diagnosis Discharge Diagnosis (1) Debility: Status: Acute Code(s): R53.81 - Other malaise (2) Hypovolemia: Status: Acute Code(s): E86.1 - Hypovolemia (3) Warfarin-induced coagulopathy: Status: Acute Code(s): D68.32 - Hemorrhagic disorder due to extrinsic circulating anticoagulants; T45.515A - Adverse effect of anticoagulants, initial encounter (4) SHA (acute kidney injury): Status: Acute Code(s): N17.9 - Acute kidney failure, unspecified (5) Falls: Status: Acute Code(s): W19.XXXA - Unspecified fall, initial encounter (6) Toxic metabolic encephalopathy: Status: Acute Code(s): G92.8 - Other toxic encephalopathy (7) Bradycardia: Status: Acute Code(s): R00.1 - Bradycardia, unspecified Medications at Discharge Home Medications aspirin 81 mg tablet,delayed release (Adult Aspirin Regimen) 81 mg PO DAILY 02/03/23 atorvastatin 40 mg tablet 40 mg PO DAILY HYPERLIPIDEMIA 02/03/23 duloxetine 30 mg capsule,delayed release 30 mg PO DAILY DEPRESSION 02/03/23 hydralazine 100 mg tablet 100 mg PO Q8H HTN 02/03/23 isosorbide mononitrate 60 mg tablet,extended release 24 hr 60 mg PO DAILY 02/03/23 levothyroxine 50 mcg tablet 50 mcg PO DAILY hypothyroidism 02/03/23 warfarin 4 mg tablet 4 mg PO DAILY stroke 02/03/23 empagliflozin 25 mg tablet (Jardiance) 25 mg PO DAILY diabetes 02/06/23 furosemide 20 mg tablet (Lasix) 20 mg PO DAILY #30 tabs 02/07/23 gabapentin 300 mg capsule 300 mg PO TID #90 caps 02/07/23 insulin glargine 100 unit/mL subcutaneous solution (Lantus U-100 Insulin) 25 unit (0.25 mL) subcut DAILY #10 mL 02/07/23 insulin lispro 100 unit/mL subcutaneous pen 18 unit (0.18 mL) subcut TID #15 mL 02/07/23 insulin lispro 100 unit/mL subcutaneous solution (Humalog U-100 Insulin) 18 unit (0.18 mL) subcut TID #10 mL 02/07/23 metoprolol tartrate 25 mg tablet 25 mg PO BID #30 tabs 02/07/23 Hospital Course Procedures EKG and - (CT brain/chest x-ray) Summary of Care Provided Minutes Spent on Discharge: 45 Hospital Course: Mrs. Rosa is an 87-year-old white female who presented to the emergency department at [facility] on 02/03/2023 with altered mental status and hypotension. She presented with her daughter who assisted with the interview. Her daughter reported that she appeared very fatigued and was becoming more confused earlier on the day of presentation. At baseline she lives at home with her but the daughter helps fairly often. They took her blood pressure and noted that she was 70 systolic and saw her heart rate was in the 40s so they called EMS. She did evidently have an episode of nausea with vomiting on the day of presentation prior to coming to the emergency department. Patient denied fever or chills, chest pain or shortness of breath, abdominal pain, ongoing nausea, lightheadedness or dizziness. At the time of hospitalist evaluation the patient had received 2 L of IV fluids and was lying in bed comfortably and alert and oriented x 3 with no acute distress and the daughter indicated she felt like she looked much better. The daughter reported that the patient's thought she looked volume overloaded and gave her 2 extra doses of Lasix for few days prior to presentation. Patient stated that she drinks a lot of water at home and does feel thirsty frequently. Vital signs on presentation show that she was afebrile but was bradycardic with heart rates in the 40s, blood pressure was initially 77/61, oxygen saturation was 90% on room air however the patient at baseline wears 2 L nasal cannula. Her CBC was overtly unimpressive. Her INR was 5.0. Her chemistry panel showed mild hyponatremia with a sodium of 134 which has since resolved, and elevated BUN and serum creatinine at 48 and 2.22 respectively, hyperglycemia with a glucose of 227 and normal liver functions. Her lactic acid was normal at 1.4. COVID and flu testing were unremarkable. Urine and blood cultures were obtained and urine culture is with no growth to date blood cultures remain pending. Infection was thought to be low yield so she was not placed on antibiotics. Her antihypertensives were held including her diuretics and she was admitted to the medical floor. Her renal function slowly improved with time to the point where it is now 1.54. Baseline is unclear. Her hemoglobin A1c was found to be markedly elevated 11.0 and we did address this with alterations in her insulin regimen. Social work and case management with the patient after she was seen by physical and Occupational Therapy. They recommended ongoing therapy services after discharge in a skilled facility. Family did report that they were planning on trying to transition her to an ECF pending Medicaid and were amenable to discharge to the [place] for skilled facility when she was medically ready. Unfortunately, insurance denied a skilled stay and family was willing to take her home. Patient and family declined home health despite recommendations for home health at the time of discharge. Her hemoglobin A1c was found to be 11.0 as noted above and we did alter her insulin therapy while she was hospitalized. She does follow with Dr. Angel at baseline so I did call her prior to discharge and she recommended Lantus 25 units daily and Humalog 18 units 3 times daily and continue her Jardiance. There does seem to be some discrepancy between what was recommended and what the patient is actually doing at home with regards to her blood sugar management. The patient indicated she would like an insulin pump. She is to call the office on Friday to schedule a follow-up appointment to be seen within the next 1 to 3 weeks with regards to her blood sugars. With regards to her diuretics. She had been taking 40 mg daily. We decreased the dose by 50% to 20 mg daily and asked her to weigh herself daily at the same time of the day with no close on. If she gains more than 2 pounds in a 24-hour period she is to increase her dose of diuretic and take an extra pill in that timeframe. We have also asked her to watch her salt intake and decrease to 4 g or less daily. I suspect her dehydration on presentation was related to decreased p.o. intake of fluids, osmotic diuresis with hyperglycemia, and diuretic use. Given her bradycardia her beta-brittany was reduced by 50% from 50 mg twice daily to 25 mg twice daily. We were slowly able to readd her other home antihypertensives without any difficulty. Her Coumadin was restarted and her INR at discharge was subtherapeutic at 1.6. Given the fact we had to hold this on admission this is not surprising. I have asked her to continue her 4 mg at the time of discharge and have a repeat INR done on 02/11/2023. Her goal INR for atrial fibrillation is between 2 and 3. With her renal we decreased her gabapentin from 600 mg 3 times daily to 300 mg 3 times daily as this could exacerbate falls and confusion. We also discontinued her oxybutynin and for the similar reason. The patient was able to be discharged home in stable condition on 02/07/2023. All new medications or medication changes were faxed to local pharmacy prior to discharge. We have asked that she follow-up with her primary care physician within the next 1 to 2 weeks as availability allows. If falls continue to be a problem patient may need discontinuation of her anticoagulation. We will continue for now as her risk of stroke is high with a [id number] score of 7 indicating a stroke risk of 12.2 %/year and a 15.7 risk of stroke/TIA/systemic embolism. Discharge diagnoses: Hypotension-resolved SHA-resolved CKD stage IIIb Hypokalemia-resolved Bradycardia-resolved Toxic/metabolic encephalopathy-resolved Supratherapeutic INR-resolved now subtherapeutic Falls/debility-patient refused home health care PAF DM-2 uncontrolled--> A1c 11.0 CAD HTN HPL Stage I diastolic dysfunction Chronic hypoxic respiratory failure secondary to COPD Hypothyroidism History of stroke Overactive bladder Dementia Physical Exam Narrative Patient states she is feeling well. I discussed with her she was declined by insurance for skilled stay. Plan is to go home. She declines home health care. Const alert, oriented x3, no apparent distress, average body habitus and well nourished Constitutional Narrative: Elderly, white female, sitting up in bed, and daughter at bedside, appears comfortable and nontoxic General Appearance: cooperative, comfortable, well kempt and well developed Orientation / Consciousness: awake, oriented to person, oriented to place and oriented to time Exam Limitations: no limitations Nutritional Appearance: overweight HEENT normocephalic, head/scalp atraumatic, hearing grossly normal bilaterally and moist oral mucous membranes HEENT Narrative: Mallampati 3, no thrush, dentures in place Eyes PERRL, EOMs intact bilaterally and conjunctivae normal Eyes Narrative: Bruising noted underneath right eye, secondary to previous falls. Neck no lymphadenopathy and supple Neck Narrative: Trachea midline, no thyroid enlargement Resp normal respiratory effort, no retractions, no use of accessory muscles and clear to auscultation bilaterally Resp Narrative: Diffusely diminished but clear Auscultation: Negative for rales, rhonchi or wheezes Cardio regular rate, regular rhythm, S1 normal heart sound, S2 normal heart sound, no murmurs, no rub, no gallops and no clicks GI normal to inspection, nondistended, normoactive bowel sounds, soft to palpation and non-tender Extremity no clubbing, cyanosis or edema Extremity Narrative: 2+ pedal pulses, 2+ radial pulses Skin no wounds, skin turgor normal and no jaundice Skin Narrative: Various ecchymotic areas noted related to fall Neuro oriented x3, CN's II-XII intact bilaterally, moves all extremities and no focal motor deficits Speech: speech normal Psych mental status grossly normal and affect normal Psych Narrative: Very pleasant, interacts appropriately Weight / BMI Weight Weight: 72.4 kg Body Mass Index (BMI) 28.3 ABG / Lab / Microbiology Data 02/06/23 03:59 02/07/23 05:52 Laboratory: Laboratory Results - last 24 hr 02/06/23 16:16: POC Glucose 242 H 02/06/23 20:02: POC Glucose 185 H 02/07/23 05:52: PT 19.5 H, INR 1.6, Sodium 140, Potassium 3.7, Chloride 108 H, Carbon Dioxide 22.0, Anion Gap 10, BUN 41 H, Creatinine 1.65 H, Estim Creat Clear Calc 20.62, Est GFR (MDRD) Af Amer 38 L, Est GFR (MDRD) Non-Af 31 L, BUN/Creatinine Ratio 24.8 H, Glucose 354 H, Calcium 8.3 L 02/07/23 08:03: POC Glucose 404 H 02/07/23 11:04: POC Glucose 397 H Microbiology: Microbiology 02/03/23 18:12 Blood Culture (Wb) - Left Wrist Blood Culture - Preliminary No growth in 48 hours. 02/03/23 16:51 Blood Culture (Wb) - Right Wrist Blood Culture - Preliminary No growth in 48 hours. 02/03/23 17:06 Urine, Catheterized Urine Culture - Final Culture exhibits no growth. 02/03/23 16:51 Nasal Secretion SARS-CoV-2 & FLU Antigen (Rapid) - Final D/C Instructions Discharge Diet: Low fat / Low cholesterol and 1800 Calorie Control Diet Discharge Activity: No Restrictions Meaningful Use Info Meaningful Use Diagnoses (Choose all that apply): None applicable Discharge Plan Admission Admit Date/Time: 02/03/23 19:23 Primary Reason for Your Visit: Hypotension/altered mental status Attending Provider: Rosa Andersen Primary Care Provider: Jose J Lezama Consulting Providers: Clifford Lane; Yuriy Browning Instructions Additional Instructions / Restrictions: 1. I discussed your insulin with Dr. Angel and she recommended Lantus 25 units 1 time daily and Humalog 18 units 3 times a day with meals to be taken 15 minutes before eating. Please continue to check blood sugars as you have previously and call her office to schedule a follow-up appointment within the next 1 to 3 weeks after discharge. 2. As noted in your medications, we decreased your metoprolol to tartrate from 50 mg a day to 25 mg a day due to a slow heart rate on admission 3. Your gabapentin dose was decreased from 600 mg 3 times daily to 300 mg 3 times daily due to your abnormal renal function. Gabapentin is cleared by the body through the kidney and the dose you are on could increase your risk for falls and unsteadiness as well as confusion. 4. Discontinue your oxybutynin as this can cause hypotension, confusion, and falls 5. Continue warfarin/Coumadin at 4 g dose and have INR checked on 02/11/2023. 6. Limit salt intake to 4 g daily or less. And continue Lasix at a reduced dose of 20 mg a day. Weigh yourself daily at the same time and if your weight increases by 2 pounds in a 24-hour period take an extra dose of Lasix 20 mg 7. Continue Jardiance Discharge Orders/Prescriptions Prescriptions: New insulin glargine [Lantus U-100 Insulin] 100 unit/mL solution 25 unit subcut DAILY Qty: 10 2RF furosemide [Lasix] 20 mg tablet 20 mg PO DAILY Qty: 30 1RF gabapentin 300 mg capsule 300 mg PO TID Qty: 90 0RF metoprolol tartrate 25 mg tablet 25 mg PO BID Qty: 30 1RF insulin lispro [Humalog U-100 Insulin] 100 unit/mL solution 18 unit subcut TID Qty: 10 2RF Continued atorvastatin 40 mg tablet 40 mg PO DAILY duloxetine 30 mg capsule,delayed release(DR/EC) 30 mg PO DAILY hydralazine 100 mg tablet 100 mg PO Q8H isosorbide mononitrate 60 mg tablet extended release 24 hr 60 mg PO DAILY warfarin 4 mg tablet 4 mg PO DAILY aspirin [Adult Aspirin Regimen] 81 mg tablet,delayed release (DR/EC) 81 mg PO DAILY levothyroxine 50 mcg tablet 50 mcg PO DAILY Jardiance 25 mg tablet 25 mg PO DAILY Changed insulin lispro 100 unit/mL insulin pen 18 unit SUBCUT TID Qty: 15 2RF Patient Comments: at meals Discontinued furosemide 20 mg tablet 20 mg PO DAILY Patient Comments: TAKE 2 TABLETS BY MOUTH ONCE DAILY, MAY TAKE 1 EXTRA TAB NEEDED gabapentin 300 mg capsule 600 mg PO Q8H metoprolol tartrate 50 mg tablet 50 mg PO BID oxybutynin chloride 10 mg tablet extended release 24hr 10 mg PO DAILY Referrals / Follow Up: Jose J Lezama DO [Primary Care Provider] - Within 2 Weeks Raudel Angel MD [Med Staff - Courtesy Staff] - See Referral Note (Call on Friday to set up an appointment to be seen within the next 1 to 3 weeks) Disposition Disposition (needs filled in before D/C Order can be placed): Home, Self Care Charges/Coding Visit Charges Inpatient E&M: 96838 Disch Hosp >30min
[2023-02-07] MEDS: hydrALAZINE 50 MG Tablet 100 MG PO (14:46)
--- NOTE | 2023-02-07 15:36 | PHA.DC.MR.R ---
Pharmacy [place] Med Reconciliation Pharmacy Service has performed discharge medication reconciliation for this patient. Attempted x2 to nurses' association counselor patient/ family member on changes in medication regimen, but no family was in the room to go over medication changes. Patient (+) for dementia, does not manage own medications. Will try one more time to see if family is present in room. The patient's discharge medication list was reviewed for discrepancies and discrepancies were resolved. Medications at Discharge Home Medications aspirin 81 mg tablet,delayed release (Adult Aspirin Regimen) 81 mg PO DAILY 02/03/23 atorvastatin 40 mg tablet 40 mg PO DAILY HYPERLIPIDEMIA 02/03/23 duloxetine 30 mg capsule,delayed release 30 mg PO DAILY DEPRESSION 02/03/23 hydralazine 100 mg tablet 100 mg PO Q8H HTN 02/03/23 isosorbide mononitrate 60 mg tablet,extended release 24 hr 60 mg PO DAILY 02/03/23 levothyroxine 50 mcg tablet 50 mcg PO DAILY hypothyroidism 02/03/23 warfarin 4 mg tablet 4 mg PO DAILY stroke 02/03/23 empagliflozin 25 mg tablet (Jardiance) 25 mg PO DAILY diabetes 02/06/23 furosemide 20 mg tablet (Lasix) 20 mg PO DAILY #30 tabs 02/07/23 gabapentin 300 mg capsule 300 mg PO TID #90 caps 02/07/23 insulin glargine 100 unit/mL subcutaneous solution (Lantus U-100 Insulin) 25 unit (0.25 mL) subcut DAILY #10 mL 02/07/23 insulin lispro 100 unit/mL subcutaneous pen 18 unit (0.18 mL) subcut TID #15 mL 02/07/23 insulin lispro 100 unit/mL subcutaneous solution (Humalog U-100 Insulin) 18 unit (0.18 mL) subcut TID #10 mL 02/07/23 metoprolol tartrate 25 mg tablet 25 mg PO BID #30 tabs 02/07/23
== END 2023-02-07 16:37 | disposition home or self-care (01) | DRG 640 ==
LOC: ED 18:38 → PCU 18:44
PROVIDERS: Admitting Provider Hospitalist; Emergency Provider Emergency Medicine; PCP Family Medicine; Visit Provider Internal Medicine
DX: E86.1 Hypovolemia (principal); G92.8 Other toxic encephalopathy; D68.32 Hemorrhagic disorder due to extrinsic circulating anticoagulants; N17.9 Acute kidney failure, unspecified; I13.0 Hypertensive heart and chronic kidney disease with heart failure and stage 1 through stage 4 chronic kidney disease, or unspecified chronic kidney disease; J96.11 Chronic respiratory failure with hypoxia; I50.32 Chronic diastolic (congestive) heart failure; E87.0 Hyperosmolality and hypernatremia; E11.22 Type 2 diabetes mellitus with diabetic chronic kidney disease; F03.90 Unspecified dementia, unspecified severity, without behavioral disturbance, psychotic disturbance, mood disturbance, and anxiety; J44.9 Chronic obstructive pulmonary disease, unspecified; N18.32 Chronic kidney disease, stage 3b; I48.0 Paroxysmal atrial fibrillation; E11.65 Type 2 diabetes mellitus with hyperglycemia; F03.A0 Unspecified dementia, mild, without behavioral disturbance, psychotic disturbance, mood disturbance, and anxiety; E03.9 Hypothyroidism, unspecified; E87.1 Hypo-osmolality and hyponatremia; I25.10 Atherosclerotic heart disease of native coronary artery without angina pectoris; E87.6 Hypokalemia; R00.1 Bradycardia, unspecified; Z79.82 Long term (current) use of aspirin; R03.1 Nonspecific low blood-pressure reading; Z95.5 Presence of coronary angioplasty implant and graft; R53.81 Other malaise; Z79.01 Long term (current) use of anticoagulants; Z86.73 Personal history of transient ischemic attack (TIA), and cerebral infarction without residual deficits; N32.81 Overactive bladder; R29.6 Repeated falls; Z95.1 Presence of aortocoronary bypass graft
CPT/HCPCS: 36415; 70450; 71045; 80048; 80053; 81001; 82962; 83036; 83605; 84484; 85025; 85027; 85610; 85730; 87040; 87086; 87428; 93005; 94668; 97162; 97166; 97530; 97535; 99285; J7030; P9612; A4216

== ENCOUNTER 2023-02-18 19:04 | Observation (INO) | payer MEDICARE, MEDICAID, SELFPAY ==
[2021-06-18 13:40] VITALS: BMI 28.7
[2023-02-18] VITALS (7 sets, daily range): BP systolic 121–142; BP diastolic 66–109; PULSE 78–82; RESP 14–20; TEMP 35.9–36.4; O2SAT 88–94; BMI 27.3
--- NOTE | 2023-02-18 19:22 | CT_ITS ---
STUDY: CT BRAIN WITHOUT CONTRAST REASON FOR EXAM: Female, 87 years old. trauma RADIATION DOSAGE (If Supplied By Facility): CTDIvol = ( 44.99 ) mGy, DLP = ( 745.49 ) mGycm TECHNIQUE: Transaxial CT imaging of the brain was performed without administration of intravenous contrast material. Individualized dose optimization techniques were used for this CT. COMPARISON: 02/03/2023. FINDINGS: Normal soft tissue structures. Normal calvarium. There is mild cerebral atrophy with widening of the extra-axial spaces and ventricular dilatation. There are areas of decreased attenuation within the white matter tracts of the supratentorial brain, consistent with microvascular disease changes. Normal basal ganglia and thalami. Normal brainstem. Small focal area of CSF attenuation within the right cerebellar hemisphere measuring 1.1 x 0.6 cm compatible with sequela of old lacunar infarct. Otherwise normal cerebellum. There is no intracranial hemorrhage. There are no findings of an acute ischemic infarction. Mucosal thickening of the right sphenoid sinus, remainder of the paranasal sinuses are clear. No air-fluid level seen. CT/Brain/Head without Contrast IMPRESSION: Chronic changes as described with no acute intracranial hemorrhage or space-occupying lesion. Electronically Signed: Jenniffer Winter MD at 19:58 EST ,
--- NOTE | 2023-02-18 19:22 | EKG12_ITS ---
Test Reason : DYSRHYTHMIA Blood Pressure : / mmHG Vent. Rate : 078 BPM Atrial Rate : 078 BPM P-R Int : 196 ms QRS Dur : 088 ms QT Int : 412 ms P-R-T Axes : 033 003 247 degrees QTc Int : 469 ms Normal sinus rhythm Inferior infarct (cited on or before 23-JUL-2022) ST & T wave abnormality, consider anterolateral ischemia Abnormal ECG Confirmed by LAURA BENITEZ, CARRIE ([id number]), editorial manager VICTORIA GOMEZ ([id number]) on 02/19/2023 9:14:13 AM Referred By: Confirmed By:CARRIE SANCHEZ MD
--- NOTE | 2023-02-18 19:24 | EX.ED.DYSGE1 ---
HPI History of Present Illness Chief Complaint: Fall Informant: patient, spouse/S.O. and EMS Narrative Narrative: 87-year-old female presenting to the emergency room chief complaint of head injury. History of present illness 87-year-old female around 1630 hrs. today reportedly fell striking the right side of her head on tiled floor. No reported loss of consciousness. states that she felt tired and went and took a nap. She slept for longer than normal and he woke her up. He was attempting to help her walk when she had a reported syncope/near syncopal episode. Patient developed nausea vomiting and route to the hospital. Patient currently taking aspirin, warfarin and possibly Plavix. states that she was just in the hospital and they changed a lot of her medications around and he is not 100% sure of what she is taking currently. Patient was admitted around [place]. She is supposed to go to jail later this week because of frequent falls. [facility] Medical History (HFpEF) heart failure with preserved ejection fraction Acute on chronic heart failure with preserved ejection fraction (HFpEF) Ambulates with cane Angina pectoris Arthritis Atherosclerotic heart disease of [place] coronary artery without angina pectoris Atrial fibrillation Atrial fibrillation Back pain BiPAP (biphasic positive airway pressure) dependence Broken ribs CAD (coronary artery disease) CAD (coronary artery disease) Cardiology follow-up encounter Carotid stenosis, left Chest pain Chronic anticoagulation Chronic renal failure, stage 3 (moderate) Congestive heart failure Congestive heart failure (CHF) Coronary artery disease CPAP (continuous positive airway pressure) dependence Debility Diabetes Diabetes Diabetes mellitus, type 2 Dietary restriction Difficulty swallowing Easy bruising Essential hypertension Fatigue Fibromyalgia GERD (gastroesophageal reflux disease) High cholesterol History of atrial fibrillation History of CHF (congestive heart failure) History of coronary artery disease History of echocardiogram History of pain when walking History of renal disease History of stress test History of stroke Hypertension Hypertension Hypertension Hypothyroidism Insulin dependent diabetes mellitus Intertrigo Kidney disease Kidney disease skilled nursing current use of anticoagulant Lower GI bleeding Lumbosacral radiculopathy Microalbuminuria Migraine headache New onset atrial fibrillation Non-smoker Non-smoker Obstructive sleep apnea Osteoarthritis of left knee Other residential (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 PAF (paroxysmal atrial fibrillation) Post-menopausal Presence of stent in coronary artery (~12/11/18) Pulmonary HTN Pure hypercholesterolemia Renal cancer Shortness of breath on exertion Sleep apnea Sleep apnea Stroke/cerebrovascular accident Stroke/cerebrovascular accident Thyroid disease Vertigo Wears hearing aid Home Medications oxybutynin chloride 10 mg tablet,extended release 24 hr 10 mg PO DAILY BLADDER 03/23/19 [History Last Taken 07/18/22] levothyroxine 50 mcg tablet 50 mcg PO DAILY thyroid 05/10/20 [History Last Taken 07/18/22] cholecalciferol (vitamin D3) 25 mcg (1,000 unit) capsule (Vitamin D3) 25 mcg PO QODAY vitamin 06/20/21 [History Last Taken 07/17/22] insulin lispro 100 unit/mL subcutaneous pen (Humalog KwikPen (U-100) Insulin) 27 unit subcut TID PRN PRN SLIDING SCALE 05/23/22 [History Last Taken 07/18/22] atorvastatin 40 mg tablet 40 mg PO QHS cholesterol #90 tabs 08/20/22 [Rx Last Taken Unknown] furosemide 40 mg tablet 40 mg PO .COMPLEX #180 tabs 08/20/22 [Rx Last Taken Unknown] hydralazine 100 mg tablet 100 mg PO TID #270 tabs 08/20/22 [Rx Last Taken Unknown] nitroglycerin 0.4 mg sublingual tablet 0.4 mg sublingual Q5M PRN chest pain #25 tabs 08/20/22 [Rx Last Taken Unknown] flash glucose scanning reader (Site9 Jong [employer] [place] [facility]) #1 ea 11/08/22 [Rx Last Taken Unknown] ranolazine 500 mg tablet,extended release,12 hr 500 mg PO Q12H 12/05/22 [History Last Taken Unknown] gabapentin 300 mg capsule 300 mg PO TID nerve pain 01/13/23 [History Last Taken Unknown] insulin glargine 100 unit/mL (3 mL) subcutaneous pen (Lantus Solostar U-100 Insulin) 27 unit (0.27 mL) subcut QPM #8.1 mL 01/30/23 [Rx Last Taken Unknown] aspirin 81 mg tablet,delayed release (Adult Aspirin Regimen) 81 mg PO DAILY 02/03/23 [History Last Taken Unknown] duloxetine 30 mg capsule,delayed release 30 mg PO DAILY DEPRESSION 02/03/23 [History Last Taken Unknown] hydralazine 100 mg tablet 100 mg PO Q8H HTN 02/03/23 [History Last Taken Unknown] isosorbide mononitrate 60 mg tablet,extended release 24 hr 60 mg PO DAILY 02/03/23 [History Last Taken Unknown] warfarin 4 mg tablet 4 mg PO DAILY stroke 02/03/23 [History Last Taken Unknown] empagliflozin 25 mg tablet (Jardiance) 25 mg PO DAILY diabetes 02/06/23 [History Last Taken Unknown] furosemide 20 mg tablet (Lasix) 20 mg PO DAILY #30 tabs 02/07/23 [Rx Last Taken Unknown] gabapentin 300 mg capsule 300 mg PO TID #90 caps 02/07/23 [Rx Last Taken Unknown] insulin glargine 100 unit/mL subcutaneous solution (Lantus U-100 Insulin) 25 unit (0.25 mL) subcut DAILY #10 mL 02/07/23 [Rx Last Taken Unknown] insulin lispro 100 unit/mL subcutaneous solution (Humalog U-100 Insulin) 18 unit (0.18 mL) subcut TID #10 mL 02/07/23 [Rx Last Taken Unknown] insulin lispro 100 unit/mL subcutaneous pen 15 unit subcut TID 02/18/23 [History Last Taken Unknown] isosorbide mononitrate 60 mg tablet,extended release 24 hr 60 mg PO DAILY 02/18/23 [History Last Taken Unknown] metoprolol tartrate 25 mg tablet 25 mg PO DAILY 02/18/23 [History Last Taken Unknown] Allergy/AdvReac Type Severity Reaction Status Date / Time morphine Allergy Intermediate Low blood Verified 02/11/23 10:07 pressure latex Allergy Rash Verified 02/11/23 10:07 adhesive tape AdvReac Rash Verified 02/11/23 10:07 ticagrelor [From Brilinta] AdvReac Shortness Verified 02/11/23 10:07 of breath Family History Father Heart disease Mother Breast cancer Diabetes Heart disease Surgical History H/O hemorrhoidectomy History of appendectomy History of arthroscopic knee surgery History of back surgery History of cardiac catheterization History of cholecystectomy History of coronary artery bypass graft x 3 (~04/08/16) History of coronary artery stent placement History of coronary artery stent placement History of hysterectomy History of knee replacement procedure of right knee History of right and left heart catheterization (LHC) (~08/10/19) History of right inguinal hernia repair Hx of CABG Hx of CABG Hx of hand surgery Postlaminectomy syndrome of lumbar region Presence of coronary angioplasty implant and graft (~12/11/18) Social History household members: spouse housing: house Smoking Status: Never smoker alcohol intake: never substance use type: does not use caffeine: No ROS ROS ED Constitutional Constitutional ED: Denies chills or weight loss Eyes Eyes: Denies change in vision or diplopia ENT ENT ED: Denies ear pain, rhinorrhea or sore throat Cardiovascular Cardiovascular: Reports other Details: sycope ; Denies chest pain, orthopnea, palpitations or racing heartbeat Respiratory/Chest Respiratory/Chest: Denies cough, dyspnea or orthopnea Gastrointestinal Gastrointestinal: Reports nausea and vomiting; Denies abdominal pain or diarrhea Genitourinary Genitourinary ED: Denies dysuria, hematuria or urinary frequency Musculoskeletal Musculoskeletal: Denies arthralgias, back pain, myalgias or neck pain Integumentary Denies abscess or rash Neurologic Neurologic: Reports headache(s); Denies weakness Psychiatric Psychiatric: Denies anxiety, depression, suicidal ideation or suicidal thoughts Endocrine Endocrinology: Denies polydipsia, polyphagia or polyuria Allergic/Immunologic Allergic/Immunologic ED: Denies mouth swelling, tongue swelling or urticaria EXAM Physical Exam Const Vital Signs: 02/18/23 19:05 02/18/23 19:36 02/18/23 20:04 Temperature 96.7 F L Temperature Source Temporal Pulse Rate 81 78 78 Respiratory Rate 18 14 16 Respiratory Effort Respiratory Depth Respiratory Pattern Blood Pressure 141/72 H 142/72 H 131/73 H Blood Pressure Mean 95 95 92 Pulse Ox 89 88 93 Oxygen Delivery Method Room Air Room Air Room Air Oxygen Flow Rate (L/min) 02/18/23 20:25 02/18/23 20:33 02/18/23 21:00 Temperature Temperature Source Pulse Rate 79 80 Respiratory Rate 15 14 Respiratory Effort Normal Respiratory Depth Shallow Respiratory Pattern Normal Blood Pressure 123/66 H 121/66 H Blood Pressure Mean 85 84 Pulse Ox 93 93 Oxygen Delivery Method Nasal Cannula Room Air Oxygen Flow Rate (L/min) 2 02/18/23 22:00 Temperature Temperature Source Pulse Rate 82 Respiratory Rate 15 Respiratory Effort Respiratory Depth Respiratory Pattern Blood Pressure 136/109 H Blood Pressure Mean 118 Pulse Ox 94 Oxygen Delivery Method Nasal Cannula Oxygen Flow Rate (L/min) 2 Positive well nourished, well developed and obese General Appearance ED: well developed Nutritional Appearance: obese HEENT Reports normocephalic, head/scalp atraumatic and moist mucous membranes Eyes PERRL and EOMs intact bilaterally Neck no lymphadenopathy, supple and no JVD Resp normal respiratory effort and clear to auscultation bilaterally Cardio regular rate, regular rhythm and no murmurs GI normal to inspection, nondistended, normoactive bowel sounds and non-tender Palpation: soft Back/Spine no CVA tenderness and normal ROM Extremity normal to inspection General Extremety ED: Negative for edema General Extremity: Negative for edema Neuro oriented x3 and CN's II-XII intact bilaterally Sensorium / Orientation: lethargic Motor Exam: strength 5/5 throughout Psych mental status grossly normal Mood & Affect: Negative for depressed or tearful Skin no rashes or lesions noted and no wounds MDM MDM MDM Narrative Medical decision making narrative: Patient's vital signs have remained stable. White count 10.9 hemoglobin 14. INR 2.3. Potassium 3.4 sodium 134. Creatinine 2.11 with a BUN of 37. Lipase less than 10. Alk phos 125. Glucose 214. CT of the brain is negative for hemorrhage. EKG is a normal sinus rhythm. Independent interpretation of the chest x-ray is no acute process. Essentially negative workup except for CKD with a creatinine slightly above baseline. I asked nursing to go and see if the patient could get up and attempt to walk. Family states she is too tired and confused . Patient with frequent falls is likely that she has not had a significant injury yet. She supposed to go to a jail later this week. I will speak with the hospitalist regarding admission see if we can get her placed sooner. History & Record Review Discussion w/independent historian: EMS personnel, Patient and Family Lab Data Attestation: I reviewed the patient's lab results. Labs: Laboratory Results - last 24 hr 02/18/23 19:25 WBC 10.9 RBC 5.08 Hgb 14.0 Hct 44.2 MCV 87.0 MCH 27.6 MCHC 31.7 L RDW Std Deviation 48.0 H RDW Coeff of [place]qu[place] 15.3 H Plt Count 344 MPV 11.7 Immature Gran % (Auto) 0.500 Neut % (Auto) 59.7 Lymph % (Auto) 28.4 Bailey % (Auto) 8.2 Eos % (Auto) 2.5 Baso % (Auto) 0.7 Absolute Neuts (auto) 6.5 Absolute Lymphs (auto) 3.09 Nucleated RBC % 0 PT 25.5 H INR 2.3 APTT 38.1 H Sodium 134 L Potassium 3.4 L Chloride 99 Carbon Dioxide 27.0 Anion Gap 8 BUN 37 H Creatinine 2.11 H Estim Creat Clear Calc 18.29 Est GFR (MDRD) Af Amer 29 L Est GFR (MDRD) Non-Af 24 L BUN/Creatinine Ratio 17.5 Glucose 214 H Calcium 9.8 Total Bilirubin 0.40 AST 11 L ALT 14 Alkaline Phosphatase 125 H Total Protein 8.9 H Albumin 4.0 Globulin 4.9 H Albumin/Globulin Ratio 0.8 L Lipase < 10 L Radiography Diagnostic Testing: Clinical Impression(s) from Imaging Studies Brain CT 02/18/23 19:22 IMPRESSION: Chronic changes as described with no acute intracranial hemorrhage or space-occupying lesion. Electronically Signed: Jenniffer Winter MD at 19:58 EST , Chest X-Ray 02/18/23 19:42 IMPRESSION: Minimal bilateral atelectasis as described. Otherwise no acute cardiopulmonary disease. Electronically Signed: Jenniffer Winter MD at 19:56 EST , EKG Initial EKG: Attestation: I personally reviewed and interpreted this EKG as follows: Comments: Normal sinus rhythm with a ventricular rate of 78 bpm. Management Discussion w/another healthcare provider: Hospitalist Discharge Plan Dx/Rx/DC Orders Clinical Impression: Head injury, Diabetes mellitus, type 2, Anticoagulant long-term use, CAD (coronary artery disease), Weakness, Vomiting, Frequent falls Disposition Disposition: Acute Care [facility]
[2023-02-18] MEDS: Ondansetron 4 MG/2 ML Vial IV (19:30)
[2023-02-18 19:34] LABS: Absolute Lymphocyte Count 3.09 X10^3/uL (0.83-4.51); Absolute Neutrophil Count 6.5 X10^3/uL (2.0-7.7); Basophil# 0.08 X10^3/uL; Basophil% 0.7 % (0-1); Eosinophil# 0.27 X10^3/uL; Eosinophils% 2.5 % (0-5); Hematocrit 44.2 % (37-47); Lymphocyte # 3.09 X10^3/ul (0.83-4.51); Lymphocyte % 28.4 % (19-41); Mean Corp Hgb Conc 31.7 g/dL (32-36); Mean Corpuscular Hgb 27.6 pg (27.0-32.0); Mean Platelet Vol. 11.7 fl (6.2-12.0); Monocyte# 0.89 X10^3/uL; Monocyte% 8.2 % (0-10); NRBC Flagged by Analyzer 0 % (0-5); Neutrophil % 59.7 % (47-70); Platelet Count 344 K/mm3 (150-450); RBC Distribution Width CV 15.3 % (11.6-14.6); Red Blood Count 5.08 M/mm3 (4.2-5.4); White Blood Count 10.9 K/mm3 (4.4-11.0)
--- NOTE | 2023-02-18 19:42 | RAD_ITS ---
STUDY: X-RAY CHEST REASON FOR EXAM: Female, 87 years old. syncope TECHNIQUE: Single AP portable view of the chest. COMPARISON: 02/03/2023. FINDINGS: Elevation of the right hemidiaphragm. Spine stimulator in place. The lungs are slightly underexpanded with mild right mid lung and left basilar atelectasis, stable. Otherwise lung mcgee are clear. There is no demonstrated pleural abnormality. Normal size heart. Midline sternotomy wires. Normal mediastinum and eddie. Normal visualized pulmonary arteries. There is atherosclerotic calcification of the aortic arch with tortuosity. There are diffuse degenerative changes of the visualized thoracic spine. Possible osteopenia. Normal visualized ribs, clavicles, and shoulders. Right upper quadrant surgical clips. RAD/Chest 1 View (Portable) IMPRESSION: Minimal bilateral atelectasis as described. Otherwise no acute cardiopulmonary disease. Electronically Signed: Jenniffer Winter MD at 19:56 EST ,
[2023-02-18 19:45] LABS: International Normalized Ratio 2.3; Prothrombin Time (Protime)PT. 25.5 SECONDS (11.7-14.9)
[2023-02-18 19:46] LABS: Partial Thromboplast Time 38.1 Seconds (24.1-36.2)
[2023-02-18 19:55] LABS: ALB/GLOB Ratio 0.8 RATIO (0.9-2.4); AST(SGOT) 11 U/L (15-37); Alanine Aminotransfer ALT/SGPT 14 U/L (13-56); Alkaline Phosphatase 125 U/L (45-117); Anion Gap 8 (5-15); BUN 37 mg/dL (7-18); BUN/Creat Ratio 17.5 RATIO (10-20); Calcium,Total 9.8 mg/dL (8.5-10.1); Chloride 99 mmol/L (98-107); Creatinine, Serum 2.11 mg/dL (0.55-1.02); EST Glomerular Filtration Rate 24 mL/min (>60); Est Glom Filt Rate - Afr Amer 29 mL/min (>60); Estimated Creatinine Clearance 18.29 ml/min; Globulin 4.9 g/dL (2.2-4.2); Glucose 214 mg/dL (74-106); Lipase < 10 U/L (13-75); Potassium 3.4 mmol/L (3.5-5.1); Protein, Total 8.9 g/dL (6.4-8.2); Sodium Level 134 mmol/L (136-145)
--- OUTSIDE RECORDS SUMMARY | 2023-02-18 20:40 | XMS RPT_ITS | CCD ---
Author Name Unknown Address [address] [place] [address] [id number] [place] [address] Organization [facility] Results Test Name Value Interpretation [...] BE BASED ON THE PRIMARY CLINICAL RECORDS. [employer] provides no warranty or guarantee of the accuracy or completeness of information in this document.
--- NOTE | 2023-02-18 22:08 | HP.PCM_ITS ---
HPI - General General Date of Admission: 02/18/23 Date of Service: 02/18/23 Chief Complaint: mechanical fall, near syncope HPI Narrative GLORIA PAUL, is a 87 F with a PMH as outlined who presents via the ED on 02/18/2023 with a complaint of near syncope and mechanical fall. 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 She was discharged home and found by her today very weak and lethargic in bed. She fell at around 1630 hours on the day of admission nad hit the right side of her head on the kitchen floor. She didnt lose consciousness. She subsequently went to take a nap and slept much longer than expected, so he went to wake her up. Patient had a near syncopal event so decided to bring her to the hospital. said he noticed her eyes rolled back in her head and she had shaking in all extremities. She complained of nausea and vomiting which started on the way to the hospital; however she denied any dizziness, palpitations, chest pain, focal weakness, numbness or tingling. Review of systems is otherwise negative. It must be stated that during her last admission, insurance didnt approve a SNF stay. She doesnt have a history of seizures. Daughter says patient was recently diagnosed with dementia and has been started on oral meds, the dosage of which is being titrated by her PCP. She has had numerous falls in the past at home, at least 13 times, per her gayle ghter, and hit her head several times also Vitals in the ED were BP of 136/109, MD of 82, RR of 15 and oxygen sats os 94% on 2L of oxygen. CBC [id number] wbc of 10.9, Hb of 14 and platelets of 344. INR is 2.3. CHemistry showed sodium of 134 and potassium of 2.4. Cr was 2.11. CT brain showed chronic changes with no acute intracranial pathology. She is being admitted to be managed for debility and weakness due to recurrent mechanical falls. [facility] Medical History (HFpEF) heart failure with preserved ejection fraction Acute on chronic heart failure with preserved ejection fraction (HFpEF) Ambulates with cane Angina pectoris Arthritis Atherosclerotic heart disease of [place] coronary artery without angina pectoris Atrial fibrillation Atrial fibrillation Back pain BiPAP (biphasic positive airway pressure) dependence Broken ribs CAD (coronary artery disease) CAD (coronary artery disease) Cardiology follow-up encounter Carotid stenosis, left Chest pain Chronic anticoagulation Chronic renal failure, stage 3 (moderate) Congestive heart failure Congestive heart failure (CHF) Coronary artery disease CPAP (continuous positive airway pressure) dependence Debility Diabetes Diabetes Diabetes mellitus, type 2 Dietary restriction Difficulty swallowing Easy bruising Essential hypertension Fatigue Fibromyalgia GERD (gastroesophageal reflux disease) High cholesterol History of atrial fibrillation History of CHF (congestive heart failure) History of coronary artery disease History of echocardiogram History of pain when walking History of renal disease History of stress test History of stroke Hypertension Hypertension Hypertension Hypothyroidism Insulin dependent diabetes mellitus Intertrigo Kidney disease Kidney disease USP current use of anticoagulant Lower GI bleeding Lumbosacral radiculopathy Microalbuminuria Migraine headache New onset atrial fibrillation Non-smoker Non-smoker Obstructive sleep apnea Osteoarthritis of left knee Other intermission coordinator (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 PAF (paroxysmal atrial fibrillation) Post-menopausal Presence of stent in coronary artery (~12/11/18) Pulmonary HTN Pure hypercholesterolemia Renal cancer Shortness of breath on exertion Sleep apnea Sleep apnea Stroke/cerebrovascular accident Stroke/cerebrovascular accident Thyroid disease Vertigo Wears hearing aid Home Medications oxybutynin chloride 10 mg tablet,extended release 24 hr 10 mg PO DAILY BLADDER 03/23/19 [History Last Taken 07/18/22] levothyroxine 50 mcg tablet 50 mcg PO DAILY thyroid 05/10/20 [History Last Taken 07/18/22] cholecalciferol (vitamin D3) 25 mcg (1,000 unit) capsule (Vitamin D3) 25 mcg PO QODAY vitamin 06/20/21 [History Last Taken 07/17/22] insulin lispro 100 unit/mL subcutaneous pen (Humalog KwikPen (U-100) Insulin) 27 unit subcut TID PRN PRN SLIDING SCALE 05/23/22 [History Last Taken 07/18/22] atorvastatin 40 mg tablet 40 mg PO QHS cholesterol #90 tabs 08/20/22 [Rx Last Taken Unknown] furosemide 40 mg tablet 40 mg PO .COMPLEX #180 tabs 08/20/22 [Rx Last Taken Unknown] hydralazine 100 mg tablet 100 mg PO TID #270 tabs 08/20/22 [Rx Last Taken Unknown] nitroglycerin 0.4 mg sublingual tablet 0.4 mg sublingual Q5M PRN chest pain #25 tabs 08/20/22 [Rx Last Taken Unknown] flash glucose scanning reader ([employer] [place]) #1 ea 11/08/22 [Rx Last Taken Unknown] ranolazine 500 mg tablet,extended release,12 hr 500 mg PO Q12H 12/05/22 [History Last Taken Unknown] gabapentin 300 mg capsule 300 mg PO TID nerve pain 01/13/23 [History Last Taken Unknown] insulin glargine 100 unit/mL (3 mL) subcutaneous pen (Lantus Solostar U-100 Insulin) 27 unit (0.27 mL) subcut QPM #8.1 mL 01/30/23 [Rx Last Taken Unknown] aspirin 81 mg tablet,delayed release (Adult Aspirin Regimen) 81 mg PO DAILY 02/03/23 [History Last Taken Unknown] duloxetine 30 mg capsule,delayed release 30 mg PO DAILY DEPRESSION 02/03/23 [History Last Taken Unknown] hydralazine 100 mg tablet 100 mg PO Q8H HTN 02/03/23 [History Last Taken Unknown] isosorbide mononitrate 60 mg tablet,extended release 24 hr 60 mg PO DAILY 02/03/23 [History Last Taken Unknown] warfarin 4 mg tablet 4 mg PO DAILY stroke 02/03/23 [History Last Taken Unknown] empagliflozin 25 mg tablet (Jardiance) 25 mg PO DAILY diabetes 02/06/23 [History Last Taken Unknown] furosemide 20 mg tablet (Lasix) 20 mg PO DAILY #30 tabs 02/07/23 [Rx Last Taken Unknown] gabapentin 300 mg capsule 300 mg PO TID #90 caps 02/07/23 [Rx Last Taken Unknown] insulin glargine 100 unit/mL subcutaneous solution (Lantus U-100 Insulin) 25 unit (0.25 mL) subcut DAILY #10 mL 02/07/23 [Rx Last Taken Unknown] insulin lispro 100 unit/mL subcutaneous solution (Humalog U-100 Insulin) 18 unit (0.18 mL) subcut TID #10 mL 02/07/23 [Rx Last Taken Unknown] insulin lispro 100 unit/mL subcutaneous pen 15 unit subcut TID 02/18/23 [History Last Taken Unknown] isosorbide mononitrate 60 mg tablet,extended release 24 hr 60 mg PO DAILY 02/18/23 [History Last Taken Unknown] metoprolol tartrate 25 mg tablet 25 mg PO DAILY 02/18/23 [History Last Taken Unknown] Allergy/AdvReac Type Severity Reaction Status Date / Time morphine Allergy Intermediate Low blood Verified 02/11/23 10:07 pressure latex Allergy Rash Verified 02/11/23 10:07 adhesive tape AdvReac Rash Verified 02/11/23 10:07 ticagrelor [From Brilinta] AdvReac Shortness Verified 02/11/23 10:07 of breath Family History Father Heart disease Mother Breast cancer Diabetes Heart disease Surgical History H/O hemorrhoidectomy History of appendectomy History of arthroscopic knee surgery History of back surgery History of cardiac catheterization History of cholecystectomy History of coronary artery bypass graft x 3 (~04/08/16) History of coronary artery stent placement History of coronary artery stent placement History of hysterectomy History of knee replacement procedure of right knee History of right and left heart catheterization (LHC) (~08/10/19) History of right inguinal hernia repair Hx of CABG Hx of CABG Hx of hand surgery Postlaminectomy syndrome of lumbar region Presence of coronary angioplasty implant and graft (~12/11/18) Social History household members: spouse housing: house Smoking Status: Never smoker alcohol intake: never substance use type: does not use caffeine: No ROS ROS Narrative ROS mainly from daughter and Review of Systems ROS Unobtainable: due to encephalopathy Constitutional Constitutional: Reports fatigue, malaise and weakness; Denies anorexia or change in weight Eyes Eyes: Denies change in vision ENT HEENT: Denies dysphagia or headache(s) Cardiovascular Cardiovascular: Denies chest pain, edema, orthopnea, palpitations, paroxysmal nocturnal dyspnea or syncope Respiratory/Chest Respiratory/Chest: Denies cough, shortness of breath at rest, shortness of breath with exertion or wheezing Gastrointestinal Gastrointestinal: Denies nausea or vomiting Genitourinary Genitourinary: Denies dysuria Musculoskeletal Musculoskeletal: Denies joint pain or muscle weakness Neurologic Neurologic: Reports confusion and weakness; Denies dizziness, focal weakness, headache(s), numbness, seizures, tingling or tremor(s) Endocrine Endocrinology: Denies change in body appearance Vital Signs Vital Signs Vital Signs: 02/18/23 19:05 02/18/23 19:36 02/18/23 20:04 Temperature 96.7 F L Temperature Source Temporal Pulse Rate 81 78 78 Respiratory Rate 18 14 16 Respiratory Effort Respiratory Depth Respiratory Pattern Blood Pressure 141/72 H 142/72 H 131/73 H Blood Pressure Mean 95 95 92 Pulse Ox 89 88 93 Oxygen Delivery Method Room Air Room Air Room Air Oxygen Flow Rate (L/min) 02/18/23 20:25 02/18/23 20:33 02/18/23 21:00 Temperature Temperature Source Pulse Rate 79 80 Respiratory Rate 15 14 Respiratory Effort Normal Respiratory Depth Shallow Respiratory Pattern Normal Blood Pressure 123/66 H 121/66 H Blood Pressure Mean 85 84 Pulse Ox 93 93 Oxygen Delivery Method Nasal Cannula Room Air Oxygen Flow Rate (L/min) 2 02/18/23 22:00 Temperature Temperature Source Pulse Rate 82 Respiratory Rate 15 Respiratory Effort Respiratory Depth Respiratory Pattern Blood Pressure 136/109 H Blood Pressure Mean 118 Pulse Ox 94 Oxygen Delivery Method Nasal Cannula Oxygen Flow Rate (L/min) 2 Weight Weight: 154 lb 5.177 oz Body Mass Index (BMI) 27.3 Physical Exam Const alert Orientation / Consciousness: confused and lethargic HEENT normocephalic and oropharynx normal Mouth: dry mucous membranes Eyes PERRL and EOMs intact bilaterally Neck no lymphadenopathy and supple Lymph Lymphatic: no lymphadenopathy noted and no lymphedema noted Resp Resp Narrative: mildly diminished breath sounds bibasally , no wheezes or crackles. on 3L of oxygen by nasal canula Cardio regular rate, regular rhythm, S1 normal heart sound, S2 normal heart sound and no murmurs GI normal to inspection, nondistended, normoactive bowel sounds and soft to palpation Extremity normal capillary refill, no clubbing, cyanosis or edema and no calf tenderness General Extremity: no tenderness to palpation of joints or extremities Skin General Skin Exam: no breakdown Neuro CN's II-XII intact bilaterally Motor Exam: general weakness Psych Psych Narrative: confused Mood & Affect: flat affect Results Lab / Micro Data 02/18/23 19:25 02/18/23 19:25 Labs: Laboratory Results - last 24 hr 02/18/23 19:25: WBC 10.9, RBC 5.08, Hgb 14.0, Hct 44.2, MCV 87.0, MCH 27.6, MCHC 31.7 L, RDW Std Deviation 48.0 H, RDW Coeff of Laquita 15.3 H, Plt Count 344, MPV 11.7, Immature Gran % (Auto) 0.500, Neut % (Auto) 59.7, Lymph % (Auto) 28.4, [place] % (Auto) 8.2, Eos % (Auto) 2.5, Baso % (Auto) 0.7, Absolute Neuts (auto) 6.5, Absolute Lymphs (auto) 3.09, Nucleated RBC % 0, PT 25.5 H, INR 2.3, APTT 38.1 H, Sodium 134 L, Potassium 3.4 L, Chloride 99, Carbon Dioxide 27.0, Anion Gap 8, BUN 37 H, Creatinine 2.11 H, Estim Creat Clear Calc 18.29, Est GFR (MDRD) Af Amer 29 L, Est GFR (MDRD) Non-Af 24 L, BUN/Creatinine Ratio 17.5, Glucose 214 H, Calcium 9.8, Total Bilirubin 0.40, AST 11 L, ALT 14, Alkaline Phosphatase 125 H, Total Protein 8.9 H, Albumin 4.0, Globulin 4.9 H, Albumin/Globulin Ratio 0.8 L, Lipase < 10 L Imagaing Radiology Impression Brain CT 02/18/23 19:22 IMPRESSION: Chronic changes as described with no acute intracranial hemorrhage or space-occupying lesion. Electronically Signed: Jenniffer Winter MD at 19:58 EST Reading Location ID and State: [address] [place] [address] , Service support , Chest X-Ray 02/18/23 19:42 IMPRESSION: Minimal bilateral atelectasis as described. Otherwise no acute cardiopulmonary disease. Electronically Signed: Jenniffer Winter MD at 19:56 EST , Assessment & Plan Assessment/Plan (1) Toxic metabolic encephalopathy: (2) Falls: (3) SHA (acute kidney injury): PLAN: Plan #Debility and weakness due to mechanical falls * patient has been falling frequently at home. 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 Hydrate gently with IVF and trend. #Paroxysmal afib: * on metoprolol. Hold coumadin due to history of mechanical falls. INR is 2.3. * patient's daughter and counseled that in light of her frequent falls, hitting her head in the process, they would need to consider stopping the coumadin permanently. They were counseled about the risks vs benefits of her being on coumadin whilst having frequent falls. Coumadin is on hold now. They couldnt make a decision today and so this will have to be addressed again by primary team tomorrow. #Type 2 diabetes mellitus * on lantus. ISS. Accuchecks ACHS * #CAD: s/p CABT in 2017 and PCI. on imdur, metoprolol, aspirin and statin #HYpertension; on metoprolol and hydralazine. #Hyperlipidemia: on statin #Hypothyroidism: on synthroid #Histoyr of CVA: on aspirin and statin. #Dementia: * remains confused. NOt on any meds per EMR. * Daughter however says she was recently started on meds and this dosage is being titrated by her PCP. DVT prophylaxis; coumadin on hold. SCDs Code status: * Patient counseled extensively about different types of CODE STATUS including full code, DNR CCA and DNR CCA. Patient elects to be DNRCCA. Total [id number] time 16 minutes. Total time spent on evaluation and management of patient, reviewing chart, discussing plan with patient and his , discussion with nursing and ancillary staff as well as documentation: 77 mins Charges/Coding Visit Charges Inpatient E&M: 50413 Init Hosp L3 Procedures Hospitalists Procedures: 22440 Advncd Care Plan 30 Min
--- OUTSIDE RECORDS SUMMARY | 2023-02-18 23:01 | XMS RPT_ITS | CCD ---
Author Name Unknown Address [address] [place] [address] [id number] [place] [address] Organization [facility] Results Test Name Value Interpretation [...] BE BASED ON THE PRIMARY CLINICAL RECORDS. [facility] [employer] provides no warranty or guarantee of the accuracy or completeness of information in this document.
[2023-02-18] MEDS: 0.9% Normal Saline (1000mL) 1,000 ML 125 ML IV (23:35)
[2023-02-19] VITALS (10 sets, daily range): BP systolic 116–155; BP diastolic 61–73; PULSE 77–98; RESP 15–19; TEMP 36.3–36.7; O2SAT 94–96
[2023-02-19 06:05] LABS: Absolute Lymphocyte Count 2.44 X10^3/uL (0.83-4.51); Absolute Neutrophil Count 5.6 X10^3/uL (2.0-7.7); Basophil# 0.08 X10^3/uL; Basophil% 0.9 % (0-1); Eosinophil# 0.24 X10^3/uL; Eosinophils% 2.6 % (0-5); Hematocrit 41.9 % (37-47); Hemoglobin 13.4 g/dL (12.0-15.0); Lymphocyte # 2.44 X10^3/ul (0.83-4.51); Lymphocyte % 26.8 % (19-41); Mean Corpuscular Hgb 28.3 pg (27.0-32.0); Mean Corpuscular Volume 88.4 fL (81-99); Mean Platelet Vol. 11.1 fl (6.2-12.0); Monocyte# 0.76 X10^3/uL; Monocyte% 8.3 % (0-10); NRBC Flagged by Analyzer 0 % (0-5); Neutrophil # 5.56 X10^3/uL (2.7-7.7); Neutrophil % 61.1 % (47-70); Platelet Count 268 K/mm3 (150-450); RBC Distribution Width CV 15.5 % (11.6-14.6); RBC Distribution Width SD 49.9 fl (35.1-43.9); Red Blood Count 4.74 M/mm3 (4.2-5.4); White Blood Count 9.1 K/mm3 (4.4-11.0)
[2023-02-19] MEDS: hydrALAZINE 50 MG Tablet 100 MG PO ×3 (06:43→20:13)
[2023-02-19] MEDS: Levothyroxine 50 MCG Tablet PO (06:44)
[2023-02-19] MEDS: Miconazole Nitrate 43 GM Bottle 1 APPLIC TOPICAL ×3 (06:44→20:08)
[2023-02-19 06:45] LABS: Magnesium 2.1 mg/dL (1.6-2.6); Troponin-I HS 22 pg/mL (3.0-54.0)
[2023-02-19 07:27] LABS: ALB/GLOB Ratio 0.8 RATIO (0.9-2.4); AST(SGOT) 15 U/L (15-37); Alanine Aminotransfer ALT/SGPT 18 U/L (13-56); Albumin, Serum 3.4 g/dL (3.2-5.0); Alkaline Phosphatase 106 U/L (45-117); Anion Gap 10 (5-15); BUN 38 mg/dL (7-18); BUN/Creat Ratio 18.3 RATIO (10-20); Calcium,Total 8.6 mg/dL (8.5-10.1); Chloride 103 mmol/L (98-107); Creatinine, Serum 2.08 mg/dL (0.55-1.02); EST Glomerular Filtration Rate 24 mL/min (>60); Est Glom Filt Rate - Afr Amer 29 mL/min (>60); Estimated Creatinine Clearance 18.56 ml/min; Globulin 4.3 g/dL (2.2-4.2); Glucose 274 mg/dL (74-106); Potassium 3.9 mmol/L (3.5-5.1); Protein, Total 7.7 g/dL (6.4-8.2); Sodium Level 134 mmol/L (136-145)
[2023-02-19 08:16] LABS: Bedside Glucose 279 mg/dL (74-106)
[2023-02-19 08:53] LABS: Troponin-I HS 17 pg/mL (3.0-54.0)
[2023-02-19] MEDS: Empagliflozin 25 MG Tablet PO (10:44)
[2023-02-19] MEDS: Tolterodine Tartrate 2 MG CAP.SA PO (10:44)
[2023-02-19] MEDS: Metoprolol Tartrate 25 MG Tablet PO (10:44)
[2023-02-19] MEDS: Isosorbide Mononitrate 60 MG Tablet PO (10:44)
[2023-02-19] MEDS: DULoxetine Hcl 30 MG Capsule PO (10:44)
[2023-02-19] MEDS: Insulin Glargine-YFGN 100 UNIT/ML Pen 25 UNIT SC (10:45)
[2023-02-19] MEDS: Insulin Lispro 100 UNIT/ML INSULN.PEN SC ×4 (10:56→20:21)
[2023-02-19 12:58] LABS: Bedside Glucose 392 mg/dL (74-106)
--- NOTE | 2023-02-19 13:09 | CHAPLAIN ---
Type of Pastoral Visit _x__ Initial Visit ___ Follow-up Visit ___ On-call Visit ___ General Patient Visit ___ Spiritual Assessment ___ Family Conference ___ Bereavement ___ Rapid Response ___ Code Blue ___ Other (describe below) Pastoral Care Referral From _x__ Patient ___ Family ___ Nurse ___ Physician ___ Water Leak Repairer ___ Warehouse Shipper ___ Other (describe below) Sacrament/Intervention _x__ Active listening ___ Anointing ___ Amish ___ Bereavement ___ Communion ___ Donna exploration ___ ___ Life review _x__ Prayer ___ Reconciliation ___ Sacrament of Sick _x__ Supportive presence ___ Wedding ___ Other (describe below) Pastoral Comments patient is being boarded in the ED awaiting a room in [facility]; spouse is with her; pt is resting but awakens to her name; spouse states I wish I could sleep in the chair ; pt has been in ED all night; both acknowledge basic need is to get into a room and to be more comfortable; some life review and current status is given; both welcome a prayer for support
[2023-02-19 13:31] LABS: Troponin-I HS 13 pg/mL (3.0-54.0)
--- NOTE | 2023-02-19 16:32 | PCM.PN.HOSP ---
Subjective Subjective Patient seen at bedside this morning in the ED. Patient was sleeping on my arrival to the room. On awakening, patient was lying comfortably in bed and in no acute distress. States that she feels slightly improved since coming to the ED after receiving IV fluids. She has not tried getting out of bed this morning yet. She denies any acute pain or discomfort. Was answering my questions appropriately. No other acute concerns. Objective Data Objective Data Vital Signs: Vital Signs Temp Pulse Resp BP Pulse Ox O2 Del Method O2 Flow Rate 97.4 F L 97 16 146/70 H 94 Room Air 3 02/19/23 11:00 02/19/23 13:01 02/19/23 11:00 02/19/23 11:00 02/19/23 14:41 02/19/23 14:41 02/19/23 06:30 Oxygen Flow Rate (L/min) 3 Oxygen Delivery Method Room Air Weight: 70.001 kg Body Mass Index (BMI) 27.3 Intake & Output: Intake and Output for Last 24 Hours 02/17/23 02/18/23 02/19/23 23:59 23:59 23:59 Intake Total 390 / 390 Output Total 850 / 850 Balance -460 / -460 Lab / Micro Data 02/19/23 05:58 02/19/23 05:58 Labs: Laboratory Results - last 24 hr 02/18/23 19:25: WBC 10.9, RBC 5.08, Hgb 14.0, Hct 44.2, MCV 87.0, MCH 27.6, MCHC 31.7 L, RDW Std Deviation 48.0 H, RDW Coeff of Laquita 15.3 H, Plt Count 344, MPV 11.7, Immature Gran % (Auto) 0.500, Neut % (Auto) 59.7, Lymph % (Auto) 28.4, [place] % (Auto) 8.2, Eos % (Auto) 2.5, Baso % (Auto) 0.7, Absolute Neuts (auto) 6.5, Absolute Lymphs (auto) 3.09, Nucleated RBC % 0, PT 25.5 H, INR 2.3, APTT 38.1 H, Sodium 134 L, Potassium 3.4 L, Chloride 99, Carbon Dioxide 27.0, Anion Gap 8, BUN 37 H, Creatinine 2.11 H, Estim Creat Clear Calc 18.29, Est GFR (MDRD) Af Amer 29 L, Est GFR (MDRD) Non-Af 24 L, BUN/Creatinine Ratio 17.5, Glucose 214 H, Calcium 9.8, Total Bilirubin 0.40, AST 11 L, ALT 14, Alkaline Phosphatase 125 H, Total Protein 8.9 H, Albumin 4.0, Globulin 4.9 H, Albumin/Globulin Ratio 0.8 L, Lipase < 10 L 02/19/23 05:58: WBC 9.1, RBC 4.74, Hgb 13.4, Hct 41.9, MCV 88.4, MCH 28.3, MCHC 32.0, RDW Std Deviation 49.9 H, RDW Coeff of Laquita 15.5 H, Plt Count 268, MPV 11.1, Immature Gran % (Auto) 0.300, Neut % (Auto) 61.1, Lymph % (Auto) 26.8, [place] % (Auto) 8.3, Eos % (Auto) 2.6, Baso % (Auto) 0.9, Absolute Neuts (auto) 5.6, Absolute Lymphs (auto) 2.44, Nucleated RBC % 0, Sodium 134 L, Potassium 3.9, Chloride 103, Carbon Dioxide 21.0, Anion Gap 10, BUN 38 H, Creatinine 2.08 H, Estim Creat Clear Calc 18.56, Est GFR (MDRD) Af Amer 29 L, Est GFR (MDRD) Non-Af 24 L, BUN/Creatinine Ratio 18.3, Glucose 274 H, Calcium 8.6, Magnesium 2.1, Total Bilirubin 0.50, AST 15, ALT 18, Alkaline Phosphatase 106, Troponin I High Sens 22, Total Protein 7.7, Albumin 3.4, Globulin 4.3 H, Albumin/Globulin Ratio 0.8 L 02/19/23 07:35: Troponin I High Sens 17 02/19/23 07:58: POC Glucose 279 H 02/19/23 12:41: POC Glucose 392 H 02/19/23 12:45: Troponin I High Sens 13 Radiography Diagnostic Testing: Radiology Impression Brain CT 02/18/23 19:22 IMPRESSION: Chronic changes as described with no acute intracranial hemorrhage or space-occupying lesion. Electronically Signed: Jenniffer Winter MD at 19:58 EST , Chest X-Ray 02/18/23 19:42 IMPRESSION: Minimal bilateral atelectasis as described. Otherwise no acute cardiopulmonary disease. Electronically Signed: Jenniffer Winter MD at 19:56 EST , Physical Exam Const alert, oriented x3, no apparent distress and average body habitus Constitutional Narrative: Elderly female, chronically ill-appearing, lying comfortably in bed, conversing normally, no acute distress. General Appearance: cooperative and comfortable HEENT normocephalic, head/scalp atraumatic, hearing grossly normal bilaterally and nasal mucous membranes and turbinates normal Eyes PERRL, EOMs intact bilaterally and conjunctivae normal Neck full ROM, no lymphadenopathy and supple Lymph Lymphatic: no lymphadenopathy noted Chest inspection of chest normal Resp normal respiratory effort, normal air movement, no use of accessory muscles and clear to auscultation bilaterally Cardio regular rate, regular rhythm, no murmurs and peripheral pulses 2+ throughout GI normal to inspection, nondistended, normoactive bowel sounds, soft to palpation, non-tender and non-distended Back/Spine normal ROM Extremity normal to inspection, full ROM and no pedal edema Skin no rashes or lesions noted Neuro no focal motor deficits and no sensory deficits noted Speech: speech normal Psych mental status grossly normal Assessment & Plan Assessment/Plan (1) Frequent falls: (2) Weakness: PLAN: Plan Patient is an 87-year-old female who presented to [facility] ED on 02/18/2023 with worsening weakness with frequent falls at home. 1. Debility and weakness with mechanical falls Notably with recent admission in January for similar concerns. Insurance denied SNF at that time for unclear reasons. Patient had near syncopal episode at home on day of admission along with fall, felt weak and lethargic afterwards. CT brain without contrast on admit nonacute. Chest x-ray normal, no evidence of UTI. ? PT/OT/case management consulted. Fall precautions in place. Holding home Coumadin in setting of fall, okay for heparin subcu for DVT prophylaxis for now. 2. SHA on CKD stage IIIb Creatinine 2.11 on admit, BUN 37. Baseline creatinine appears to be around 1.5-1.6. Most likely prerenal SHA in setting of poor p.o. intake. ? Creatinine 2.08 on 02/19 after IV fluid administration. Monitor BMP and urine output. Encouraged p.o. intake, can consider further IV fluids as needed. 3. Paroxysmal A-fib ? Home meds of metoprolol and Coumadin. INR 2.3 on admit. Coumadin held on admit given history of recent falls. Will need to discuss with family prior to discharge on risk/benefits of restarting anticoagulation. Continue home metoprolol. Chronic medical conditions: ? Type 2 diabetes mellitus with neuropathy: Continue home Lantus 25 units daily with sliding scale insulin with meals. Continue home gabapentin. Holding home Jardiance. ? CAD s/p CABG in 2017 and stenting, hypertension, hyperlipidemia: Continue home Imdur, metoprolol, hydralazine, aspirin and statin. ? Hypothyroidism: Continue home Synthroid. ? History of CVA: Continue home aspirin and statin. ? Recent history of dementia with mood disorder: Continue home duloxetine. ? Overactive bladder: Continue home oxybutynin. DVT prophylaxis: Heparin subcu CODE STATUS: DNR CCA, DNI Expected disposition: TBD Total clinical time spent by myself addressing the patient's medical issues, reviewing all the data, and collaborating with patient's care team: 35 minutes. Charges/Coding Visit Charges Inpatient E&M: 22380 Subs Hosp L2
[2023-02-19 17:28] LABS: Bedside Glucose 355 mg/dL (74-106)
[2023-02-19] MEDS: Atorvastatin Calcium 40 MG Tablet PO (20:13)
[2023-02-19] MEDS: Heparin Injection (Vial) 5,000 UNIT/ML VIAL 5000 UNIT SC (20:14)
[2023-02-19] MEDS: 0.9% Saline Lock 10 ML Syringe IV (20:18)
[2023-02-19 20:45] LABS: Bedside Glucose 229 mg/dL (74-106)
[2023-02-19] MEDS: 0.9% Normal Saline (1000mL) 1,000 ML 125 ML IV (21:49)
[2023-02-20] VITALS (8 sets, daily range): BP systolic 116–159; BP diastolic 54–61; PULSE 60–80; RESP 16–17; TEMP 36.4–36.7; O2SAT 94–98
[2023-02-20] MEDS: Levothyroxine 50 MCG Tablet PO (05:08)
[2023-02-20] MEDS: hydrALAZINE 50 MG Tablet 100 MG PO ×3 (05:08→21:10)
[2023-02-20] MEDS: Miconazole Nitrate 43 GM Bottle 1 APPLIC TOPICAL ×3 (05:09→20:30)
[2023-02-20] MEDS: Insulin Lispro 100 UNIT/ML INSULN.PEN SC ×4 (06:31→21:10)
[2023-02-20 06:54] LABS: Bedside Glucose 230 mg/dL (74-106)
--- NOTE | 2023-02-20 09:10 | CASEMGMT ---
Discharge Planning A list of?SNF providers including quality and resource use data and consistent with the patient's preferred geographic region, medical needs, and insurance network was created in [facility].? This list was provided to the SW. Clara Grover Discharge Planning Asst.
[2023-02-20 09:26] LABS: Anion Gap 9 (5-15); BUN 40 mg/dL (7-18); BUN/Creat Ratio 22.7 RATIO (10-20); Chloride 106 mmol/L (98-107); Creatinine, Serum 1.76 mg/dL (0.55-1.02); EST Glomerular Filtration Rate 29 mL/min (>60); Est Glom Filt Rate - Afr Amer 35 mL/min (>60); Estimated Creatinine Clearance 21.93 ml/min; Glucose 257 mg/dL (74-106); Potassium 3.6 mmol/L (3.5-5.1); Sodium Level 137 mmol/L (136-145)
--- NOTE | 2023-02-20 10:13 | CASEMGMT ---
Attempted to complete [place] with patient and she asked that I either call her or wait until he arrives to complete. VM left for patients . Clara Grover, Discharge Planning Asst.
[2023-02-20] MEDS: Isosorbide Mononitrate 60 MG Tablet PO (11:03)
[2023-02-20] MEDS: Tolterodine Tartrate 2 MG CAP.SA PO (11:03)
[2023-02-20] MEDS: DULoxetine Hcl 30 MG Capsule PO (11:04)
[2023-02-20] MEDS: Cholecalciferol (VIT D3) 25 MCG TABLET (1,000 UNITS) PO (11:04)
[2023-02-20] MEDS: Metoprolol Tartrate 25 MG Tablet PO (11:04)
[2023-02-20] MEDS: Heparin Injection (Vial) 5,000 UNIT/ML VIAL 5000 UNIT SC ×2 (11:05→21:09)
[2023-02-20] MEDS: Insulin Glargine-YFGN 100 UNIT/ML Pen 25 UNIT SC (11:14)
[2023-02-20] MEDS: Acetaminophen 325 MG Tablet 650 MG PO ×2 (11:27→20:30)
[2023-02-20 11:39] LABS: Bedside Glucose 416 mg/dL (74-106)
--- NOTE | 2023-02-20 13:21 | CASEMGMT ---
Social Work SW met with pt and introduced self and role of SW. Pt was discharged home from the hospital on 02/07 after being denied SNF approval from insurance. Pt's family was working on ECF placement at the [facility] from home and Medicaid application has been started. Pt had a fall at home and was readmitted to the hospital. SW spoke with pt regarding going from [facility] to the [facility] and pt is agreeable to this. With pt permission, SW placed phone call to pt's dgt Sherrie and discharge plan discussed. Sherrie would like pt to go to the [facility] from SNF. SNF list not provided as family was working on placement at the [facility]. DC prosthetics assistant updated and referral to be sent. Plan: [facility], pending acceptance and precARNULFO Linda
--- NOTE | 2023-02-20 13:29 | CASEMGMT ---
Addendum entered by Clara Grover 02/21/23 10:22: Discharge Planning Patient was accepted by [facility] and auth has been received. SW updated. Clara Grover, Discharge Planning Asst. Original Note: Discharge Planning Referral sent to [facility] via [facility]. Clara Grover, Discharge Planning Asst.
--- NOTE | 2023-02-20 14:39 | CASEMGMT ---
Spoke with patients daughter, Sherrie, to complete [place] form. [place] form explained to Sherrie who voiced understanding. Original form placed in pt?s chart and copy provided to?patient. Clara Grover, Discharge Planning Asst
--- NOTE | 2023-02-20 15:23 | PCM.PN.HOSP ---
Reason for Visit Reason for Visit: Diagnoses Other toxic encephalopathy (02/18/23) Acute kidney failure, unspecified (02/18/23) Repeated falls (02/18/23) Weakness (02/18/23) Unspecified fall, initial encounter (02/18/23) Subjective Subjective Patient seen at bedside this morning. Sitting comfortably in bedside chair, conversing normally, no acute distress. Patient was pleasant, denied any acute pain or discomfort currently. States she simply feels fatigued overall and not able to do much as far as getting up and moving around. She had worked with PT and OT shortly before my arrival and said she felt fairly weak working with them. No focal areas of weakness, just generalized fatigue. She is agreeable to going to a longterm facility on discharge. No other acute concerns. Objective Data Objective Data Vital Signs: Vital Signs Temp Pulse Resp BP Pulse Ox O2 Del Method O2 Flow Rate 97.6 F L 80 16 159/58 H 98 Room Air 2 02/20/23 11:00 02/20/23 11:04 02/20/23 11:00 02/20/23 11:00 02/20/23 11:00 02/20/23 12:26 02/20/23 08:15 Oxygen Flow Rate (L/min) 2 Oxygen Delivery Method Room Air Weight: 70.001 kg Body Mass Index (BMI) 27.3 Intake & Output: Intake and Output for Last 24 Hours 02/18/23 02/19/23 02/20/23 23:59 23:59 23:59 Intake Total 1510 / 1510 1026.67 / 1026.67 Output Total 850 / 850 500 / 500 Balance 660 / 660 526.67 / 526.67 Lab / Micro Data 02/19/23 05:58 02/20/23 08:00 Labs: Laboratory Results - last 24 hr 02/19/23 17:11: POC Glucose 355 H 02/19/23 20:21: POC Glucose 229 H 02/20/23 06:30: POC Glucose 230 H 02/20/23 08:00: Sodium 137, Potassium 3.6, Chloride 106, Carbon Dioxide 22.0, Anion Gap 9, BUN 40 H, Creatinine 1.76 H, Estim Creat Clear Calc 21.93, Est GFR (MDRD) Af Amer 35 L, Est GFR (MDRD) Non-Af 29 L, BUN/Creatinine Ratio 22.7 H, Glucose 257 H, Calcium 9.0 02/20/23 11:14: POC Glucose 416 H Physical Exam Const alert, oriented x3, no apparent distress and average body habitus Constitutional Narrative: Elderly female, sitting comfortably in bedside chair, conversing normally, no acute distress. General Appearance: cooperative and comfortable HEENT normocephalic, head/scalp atraumatic, hearing grossly normal bilaterally and nasal mucous membranes and turbinates normal Eyes PERRL, EOMs intact bilaterally and conjunctivae normal Neck full ROM, no lymphadenopathy and supple Lymph Lymphatic: no lymphadenopathy noted Chest inspection of chest normal Resp normal respiratory effort, normal air movement, no use of accessory muscles and clear to auscultation bilaterally Cardio regular rate, regular rhythm, no murmurs and peripheral pulses 2+ throughout GI normal to inspection, nondistended, normoactive bowel sounds, soft to palpation, non-tender and non-distended Back/Spine normal ROM Extremity normal to inspection, full ROM and no pedal edema Skin no rashes or lesions noted Neuro no focal motor deficits and no sensory deficits noted Speech: speech normal Psych mental status grossly normal Assessment & Plan Assessment/Plan (1) Frequent falls: (2) Weakness: PLAN: Plan Patient is an 87-year-old female who presented to [facility] ED on 02/18/2023 with worsening weakness with frequent falls at home. 1. Debility and weakness with mechanical falls Notably with recent admission in January for similar concerns. Insurance denied SNF at that time for unclear reasons. Patient had near syncopal episode at home on day of admission along with fall, felt weak and lethargic afterwards. CT brain without contrast on admit nonacute. Chest x-ray normal, no evidence of UTI. ? PT/OT/case management consulted. Fall precautions in place. Holding home Coumadin in setting of fall, okay for heparin subcu for DVT prophylaxis. 2. 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 Baseline creatinine appears to be around 1.5-1.6. Most likely prerenal SHA in setting of poor p.o. intake. S/p IV fluid resuscitation on admission. ? Creatinine 1.76 on 02/20. Patient reports good urine output and improving p.o. intake. Continue to monitor BMP and urine output. 3. Paroxysmal A-fib ? Home meds of metoprolol and Coumadin. INR 2.3 on admit. Coumadin held on admit given history of recent falls. Will need to discuss with family prior to discharge on risk/benefits of restarting anticoagulation prior to discharge. Continue home metoprolol. Chronic medical conditions: ? Type 2 diabetes mellitus with neuropathy: Continue home Lantus 25 units daily with sliding scale insulin with meals. Continue home gabapentin. Holding home Jardiance. ? CAD s/p CABG in 2017 and stenting, hypertension, hyperlipidemia: Continue home Imdur, metoprolol, hydralazine, aspirin and statin. ? Hypothyroidism: Continue home Synthroid. ? History of CVA: Continue home aspirin and statin. ? Recent history of dementia with mood disorder: Continue home duloxetine. ? Overactive bladder: Continue home oxybutynin. DVT prophylaxis: Heparin subcu CODE STATUS: DNR CCA, DNI Expected disposition: SNF, 1 to 2 days Total clinical time spent by myself addressing the patient's medical issues, reviewing all the data, and collaborating with patient's care team: 35 minutes. Charges/Coding Visit Charges Inpatient E&M: 85078 Subs Hosp L2
--- NOTE | 2023-02-20 15:51 | CHAPLAIN ---
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 ___ Other (describe below) Sacrament/Intervention __x_ Active listening ___ Anointing ___ Hoahaoism ___ Bereavement ___ Communion ___ Donna exploration ___ ___ Life review _x__ Prayer ___ Reconciliation ___ Sacrament of Sick _x__ Supportive presence ___ Wedding ___ Other (describe below) Pastoral Comments patient and spouse had been seen in ED before a room was assigned last night; pt does not remember meeting this family nurse practitioner then; spouse talks about almost losing her and how she will be going to [facility] to reside; pt is asked about how she is coping and how she feels about move to ECF; pt does not appear to be distressed and states I am looking forward to going to ECF; both welcome prayer for their support
[2023-02-20 17:09] LABS: Bedside Glucose 353 mg/dL (74-106)
[2023-02-20] MEDS: Atorvastatin Calcium 40 MG Tablet PO (21:09)
[2023-02-20 21:55] LABS: Bedside Glucose 273 mg/dL (74-106)
[2023-02-21 02:00] VITALS: BP 119/54; PULSE 71; RESP 16; TEMP 36.6; O2SAT 95
[2023-02-21 04:21] LABS: Anion Gap 8 (5-15); BUN 32 mg/dL (7-18); BUN/Creat Ratio 23.5 RATIO (10-20); Calcium,Total 8.7 mg/dL (8.5-10.1); Chloride 107 mmol/L (98-107); Creatinine, Serum 1.36 mg/dL (0.55-1.02); EST Glomerular Filtration Rate 39 mL/min (>60); Est Glom Filt Rate - Afr Amer 48 mL/min (>60); Estimated Creatinine Clearance 28.38 ml/min; Glucose 190 mg/dL (74-106); Potassium 3.4 mmol/L (3.5-5.1); Sodium Level 137 mmol/L (136-145)
[2023-02-21 05:34] VITALS: BP 152/53; PULSE 80
[2023-02-21] MEDS: hydrALAZINE 50 MG Tablet 100 MG PO ×2 (05:34→14:14)
[2023-02-21] MEDS: Miconazole Nitrate 43 GM Bottle 1 APPLIC TOPICAL ×2 (05:35→14:14)
[2023-02-21] MEDS: Levothyroxine 50 MCG Tablet PO (05:35)
[2023-02-21] MEDS: Insulin Lispro 100 UNIT/ML INSULN.PEN SC ×2 (06:50→11:47)
[2023-02-21] MEDS: Ibuprofen 400 MG Tablet PO (07:03)
[2023-02-21 07:18] LABS: Bedside Glucose 194 mg/dL (74-106)
[2023-02-21 09:24] VITALS: BP 141/60; PULSE 83; RESP 18; TEMP 36.9; O2SAT 93
[2023-02-21] MEDS: Tolterodine Tartrate 2 MG CAP.SA PO (09:27)
[2023-02-21] MEDS: Isosorbide Mononitrate 60 MG Tablet PO (09:27)
[2023-02-21] MEDS: Heparin Injection (Vial) 5,000 UNIT/ML VIAL 5000 UNIT SC (09:27)
[2023-02-21] MEDS: DULoxetine Hcl 30 MG Capsule PO (09:27)
[2023-02-21 09:28] VITALS: PULSE 83
[2023-02-21] MEDS: Insulin Glargine-YFGN 100 UNIT/ML Pen 25 UNIT SC (09:28)
[2023-02-21] MEDS: Metoprolol Tartrate 25 MG Tablet PO (09:28)
--- NOTE | 2023-02-21 10:42 | CASEMGMT ---
Social Work Precert has been obtained for pt to go to [facility]. Physician updated and pt is ready for discharged today. PASRR completed in HENS. Phone call to pt's dgt Sherrie and informed that pt has been approved and dc will be today. DC assistant plant manager updated and will complete discharge. Disposition: [facility], skilled level of care ARNULFO Corrales
[2023-02-21 12:05] LABS: Bedside Glucose 221 mg/dL (74-106)
--- NOTE | 2023-02-21 13:39 | DCINST_ITS ---
Discharge Instructions Diet Discharge Diet: No restrictions Activity Discharge Activity: No Restrictions Weight Bearing Status: Full weight bearing Follow Up Care Please Follow Up With: Jose J Lezama DO When: As needed Test Results: Test results from this visit will be discussed in further detail at your follow- up appointment, if applicable. Pending Tests Upon Discharge: None Discharge Plan Admission Admit Date/Time: 02/18/23 22:32 Primary Reason for Your Visit: Worsening weakness with falls Attending Provider: Clifford Lane Primary Care Provider: Jose J Lezama Consulting Providers: Lisset Cristobal Discharge Orders/Prescriptions Prescriptions: Continued cholecalciferol (vitamin D3) [Vitamin D3] 25 mcg (1,000 unit) capsule 25 mcg PO QODAY levothyroxine 50 mcg tablet 50 mcg PO DAILY oxybutynin chloride 10 MG tablet extended release 24hr 10 mg PO DAILY duloxetine 30 mg capsule,delayed release(DR/EC) 30 mg PO DAILY isosorbide mononitrate 60 mg tablet extended release 24 hr 60 mg PO DAILY aspirin [Adult Aspirin Regimen] 81 mg tablet,delayed release (DR/EC) 81 mg PO DAILY Jardiance 25 mg tablet 25 mg PO DAILY furosemide [Lasix] 20 mg tablet 20 mg PO DAILY Qty: 30 1RF gabapentin 300 mg capsule 300 mg PO TID Qty: 90 0RF ranolazine 500 mg tablet extended release 12 hr 500 mg PO Q12H metoprolol tartrate 25 mg tablet 25 mg PO DAILY memantine 5-10 mg tablets,dose pack See Protocol PO UD Protocol: Titrate Titrate Parameters: WEEK 1: TAKE ONE 5MG TABLET IN THE MORNING ONCE DAILY WEEK 2: TAKE ONE 5MG TABLET IN THE MORNING AND ONE 5MG TABLET AT BEDTIME WEEK 3: TAKE ONE 10MG TABLET IN THE MORNING AND ONE 5MG TABLET AT BEDTIME WEEK 4: TAKE ONE 10MG TABLET IN THE MORNING AND ONE 10 MG TABLET AT BEDTIME Patient Comments: PT IS CURRENTLY TAKING A MEMANTINE TITRATE DOSE PACK. TODAY (02/19/23) PT IS ON DAY 11 (WEEK 2) AND HAS HAD THEIR MORNING DOSE ONLY. Rx Instructions: WEEK 1: TAKE ONE 5MG TABLET IN THE MORNING ONCE DAILY WEEK 2: TAKE ONE 5MG TABLET IN THE MORNING AND ONE 5MG TABLET AT BEDTIME WEEK 3: TAKE ONE 10MG TABLET IN THE MORNING AND ONE 5MG TABLET AT BEDTIME WEEK 4: TAKE ONE 10MG TABLET IN THE MORNING AND ONE 10 MG TABLET AT BEDTIME atorvastatin 40 mg tablet 40 mg PO QHS Qty: 90 3RF hydralazine 100 mg tablet 100 mg PO TID Qty: 270 3RF nitroglycerin 0.4 mg tablet, sublingual 0.4 mg SUBLINGUAL Q5M PRN (Reason: chest pain) Qty: 25 3RF Rx Instructions: do not exceed 3 doses per episode (DME) FreeStyle Jong 2 [place] Misc See Rx Instructions .Route Qty: 1 0RF Rx Instructions: As directed insulin glargine [Lantus Solostar U-100 Insulin] 100 unit/mL (3 mL) insulin pen 27 unit subcut QPM Qty: 8.1 5RF Changed insulin lispro 100 unit/mL insulin pen 10 unit SUBCUT TID 30 Days Qty: 15 0RF Patient Comments: at meals Discontinued gabapentin 300 mg capsule 300 mg PO TID Patient Comments: 300mg in am, 300mg at lunch, and 600mg at HS insulin lispro [Humalog KwikPen Insulin] 100 unit/mL insulin pen 27 unit subcut TID PRN PRN (Reason: SLIDING SCALE) hydralazine 100 mg tablet 100 mg PO Q8H warfarin 4 mg tablet 4 mg PO DAILY insulin glargine [Lantus U-100 Insulin] 100 unit/mL solution 25 unit subcut DAILY Qty: 10 2RF insulin lispro [Humalog U-100 Insulin] 100 unit/mL solution 18 unit subcut TID Qty: 10 2RF isosorbide mononitrate 60 mg tablet extended release 24 hr 60 mg PO DAILY furosemide 40 mg tablet 40 mg PO .COMPLEX Qty: 180 3RF Hold Instructions: Resume on 12/10/22. Rx Instructions: 40 mg orally daily, may take 1 extra pill daily for weight gain, swelling, or shortness of breath; Referrals / Follow Up: Jose J Lezama DO [Primary Care Provider] - Disposition Disposition (needs filled in before D/C Order can be placed): [facility]
--- NOTE | 2023-02-21 13:47 | TREXTCAR_ITS ---
Diet Diet Order/Speech Therapy: 02/18/23 23:20 Diet: Consistent Carb - Calorie Controlled Food consistency:: Regular Liquid Consistency:: Regular/Thin How many daily calories?: 1800 calorie Routine Orders/Code Status Code Status: DNRCC-A Therapies Weight Bearing: Weight bearing as tolerated Physical Therapy: Eval and Treat Occupational Therapy: Eval and Treat Problem/Diagnosis (1) Frequent falls: Status: Acute Code(s): R29.6 - Repeated falls (2) Weakness: Status: Acute Code(s): R53.1 - Weakness Plan Patient is an 87-year-old female who presented to [facility] ED on 02/18/2023 with worsening weakness with frequent falls at home. Hospital course as noted below. Discharged to shelter facility on 02/21 in stable condition. 1. Debility and weakness with mechanical falls Notably with recent admission in January for similar concerns. Insurance denied SNF at that time for unclear reasons. Patient had near syncopal episode at home on day of admission along with fall, felt weak and lethargic afterwards. CT brain without contrast on admit nonacute. Chest x-ray normal, no evidence of UTI. ? PT/OT/case management followed. Fall precautions in place during admission. Held home Coumadin due to fall and will discontinue on discharge as noted below. Discharged to SNF. 2. 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 Baseline creatinine appears to be around 1.3- 1.6. Most likely prerenal SHA in setting of poor p.o. intake. S/p IV fluid resuscitation on admission. ? Creatinine 1.36 on day of discharge. Patient reported good urine output and improving p.o. intake during admission. 3. Paroxysmal A-fib ? Home meds of metoprolol and Coumadin. INR 2.3 on admit. Coumadin held on admit given history of recent falls. After discussion with family, opted to discontinue Coumadin on discharge given patient's risk of falls going forward. Okay to continue baby aspirin as an below. Continue home metoprolol. Chronic medical conditions: ? Type 2 diabetes mellitus with neuropathy: Lantus 25 units daily with sliding scale insulin with meals while inpatient. Continue home gabapentin. Restarted home insulin regimen and Jardiance on discharge. ? CAD s/p CABG in 2017 and stenting, hypertension, hyperlipidemia: Continue home Imdur, metoprolol, hydralazine, aspirin and statin. ? Hypothyroidism: Continue home Synthroid. ? History of CVA: Continue home aspirin and statin. ? Recent history of dementia with mood disorder: Continue home duloxetine. ? Overactive bladder: Continue home oxybutynin. Total clinical time spent by myself addressing the patient's discharge needs: 35 minutes. Allergies/Procedures Done in Hospital Allergies morphine Allergy (Intermediate, Verified 02/11/23 10:07) Low blood pressure latex Allergy (Verified 02/11/23 10:07) Rash adhesive tape Adverse Reaction (Verified 02/11/23 10:07) Rash ticagrelor [From Brilinta] Adverse Reaction (Verified 02/11/23 10:07) Shortness of breath Procedures: EKG and - (CT head without contrast, chest x-ray) Type of Care/Length of Stay Estimated LOS: Convalescent Care Less Than 30 days Type of Care Needed: Skilled Rehab Potential: Fair Prognosis: Fair Additional Orders/Day of Discharge H&P will serve as current which was dated: 02/18/23 Day of Discharge: 02/21/23 Dietary and Speech Recommendations Dietitian Recommendations/Changes: Continue 1800CCD diet to manage blood sugars. Follow Up Care Please Follow Up With: Jose J Lezama DO When: As needed Discharge Plan Admission Admit Date/Time: 02/18/23 22:32 Primary Reason for Your Visit: Worsening weakness with falls Attending Provider: Clifford Lane Primary Care Provider: Jose J Lezama Consulting Providers: Lisset Cristobal Discharge Orders/Prescriptions Prescriptions: Continued cholecalciferol (vitamin D3) [Vitamin D3] 25 mcg (1,000 unit) capsule 25 mcg PO QODAY levothyroxine 50 mcg tablet 50 mcg PO DAILY oxybutynin chloride 10 MG tablet extended release 24hr 10 mg PO DAILY duloxetine 30 mg capsule,delayed release(DR/EC) 30 mg PO DAILY isosorbide mononitrate 60 mg tablet extended release 24 hr 60 mg PO DAILY aspirin [Adult Aspirin Regimen] 81 mg tablet,delayed release (DR/EC) 81 mg PO DAILY Jardiance 25 mg tablet 25 mg PO DAILY furosemide [Lasix] 20 mg tablet 20 mg PO DAILY Qty: 30 1RF gabapentin 300 mg capsule 300 mg PO TID Qty: 90 0RF ranolazine 500 mg tablet extended release 12 hr 500 mg PO Q12H metoprolol tartrate 25 mg tablet 25 mg PO DAILY memantine 5-10 mg tablets,dose pack See Protocol PO UD Protocol: Titrate Titrate Parameters: WEEK 1: TAKE ONE 5MG TABLET IN THE MORNING ONCE DAILY WEEK 2: TAKE ONE 5MG TABLET IN THE MORNING AND ONE 5MG TABLET AT BEDTIME WEEK 3: TAKE ONE 10MG TABLET IN THE MORNING AND ONE 5MG TABLET AT BEDTIME WEEK 4: TAKE ONE 10MG TABLET IN THE MORNING AND ONE 10 MG TABLET AT BEDTIME Patient Comments: PT IS CURRENTLY TAKING A MEMANTINE TITRATE DOSE PACK. TODAY (02/19/23) PT IS ON DAY 11 (WEEK 2) AND HAS HAD THEIR MORNING DOSE ONLY. Rx Instructions: WEEK 1: TAKE ONE 5MG TABLET IN THE MORNING ONCE DAILY WEEK 2: TAKE ONE 5MG TABLET IN THE MORNING AND ONE 5MG TABLET AT BEDTIME WEEK 3: TAKE ONE 10MG TABLET IN THE MORNING AND ONE 5MG TABLET AT BEDTIME WEEK 4: TAKE ONE 10MG TABLET IN THE MORNING AND ONE 10 MG TABLET AT BEDTIME atorvastatin 40 mg tablet 40 mg PO QHS Qty: 90 3RF hydralazine 100 mg tablet 100 mg PO TID Qty: 270 3RF nitroglycerin 0.4 mg tablet, sublingual 0.4 mg SUBLINGUAL Q5M PRN (Reason: chest pain) Qty: 25 3RF Rx Instructions: do not exceed 3 doses per episode (DME) FreeStyle Jong 2 [place] Misc See Rx Instructions .Route Qty: 1 0RF Rx Instructions: As directed insulin glargine [Lantus Solostar U-100 Insulin] 100 unit/mL (3 mL) insulin pen 27 unit subcut QPM Qty: 8.1 5RF Changed insulin lispro 100 unit/mL insulin pen 10 unit SUBCUT TID 30 Days Qty: 15 0RF Patient Comments: at meals Discontinued gabapentin 300 mg capsule 300 mg PO TID Patient Comments: 300mg in am, 300mg at lunch, and 600mg at HS insulin lispro [Humalog KwikPen Insulin] 100 unit/mL insulin pen 27 unit subcut TID PRN PRN (Reason: SLIDING SCALE) hydralazine 100 mg tablet 100 mg PO Q8H warfarin 4 mg tablet 4 mg PO DAILY insulin glargine [Lantus U-100 Insulin] 100 unit/mL solution 25 unit subcut DAILY Qty: 10 2RF insulin lispro [Humalog U-100 Insulin] 100 unit/mL solution 18 unit subcut TID Qty: 10 2RF isosorbide mononitrate 60 mg tablet extended release 24 hr 60 mg PO DAILY furosemide 40 mg tablet 40 mg PO .COMPLEX Qty: 180 3RF Hold Instructions: Resume on 12/10/22. Rx Instructions: 40 mg orally daily, may take 1 extra pill daily for weight gain, swelling, or shortness of breath; Referrals / Follow Up: Jose J Lezama DO [Primary Care Provider] - Disposition Disposition (needs filled in before D/C Order can be placed): [facility] Charges/Coding Visit Charges Inpatient E&M: 32995 Disch Hosp >30min
--- NOTE | 2023-02-21 13:51 | PCM.DC.SUM ---
Providers Date of Admission: 02/18/23 Date of Discharge: 02/21/23 Primary Care Physician: Dr. Jose J Lezama DO Reason For Visit: MECHANICAL FALL, WEAKNESS Diagnosis Discharge Diagnosis (1) Frequent falls: Status: Acute Code(s): R29.6 - Repeated falls (2) Weakness: Status: Acute Code(s): R53.1 - Weakness Medications at Discharge Home Medications oxybutynin chloride 10 mg tablet,extended release 24 hr 10 mg PO DAILY BLADDER 03/23/19 levothyroxine 50 mcg tablet 50 mcg PO DAILY thyroid 05/10/20 cholecalciferol (vitamin D3) 25 mcg (1,000 unit) capsule (Vitamin D3) 25 mcg PO QODAY vitamin 06/20/21 atorvastatin 40 mg tablet 40 mg PO QHS cholesterol #90 tabs 08/20/22 hydralazine 100 mg tablet 100 mg PO TID #270 tabs 08/20/22 nitroglycerin 0.4 mg sublingual tablet 0.4 mg sublingual Q5M PRN chest pain #25 tabs 08/20/22 flash glucose scanning reader ([employer] Jong 2 [place]) #1 ea 11/08/22 ranolazine 500 mg tablet,extended release,12 hr 500 mg PO Q12H 12/05/22 insulin glargine 100 unit/mL (3 mL) subcutaneous pen (Lantus Solostar U-100 Insulin) 27 unit (0.27 mL) subcut QPM #8.1 mL 01/30/23 aspirin 81 mg tablet,delayed release (Adult Aspirin Regimen) 81 mg PO DAILY 02/03/23 duloxetine 30 mg capsule,delayed release 30 mg PO DAILY DEPRESSION 02/03/23 isosorbide mononitrate 60 mg tablet,extended release 24 hr 60 mg PO DAILY 02/03/23 empagliflozin 25 mg tablet (Jardiance) 25 mg PO DAILY diabetes 02/06/23 furosemide 20 mg tablet (Lasix) 20 mg PO DAILY #30 tabs 02/07/23 gabapentin 300 mg capsule 300 mg PO TID #90 caps 02/07/23 metoprolol tartrate 25 mg tablet 25 mg PO DAILY 02/18/23 memantine 5 mg-10 mg tablets in a dose pack See Protocol PO UD MEMORY 02/19/23 insulin lispro 100 unit/mL subcutaneous pen 10 unit (0.1 mL) subcut TID 30 days #15 mL 02/21/23 Hospital Course Operations None Procedures EKG and - (CT head without contrast, chest x-ray) Summary of Care Provided Minutes Spent on Discharge: 35 Hospital Course: Patient is an 87-year-old female who presented to [facility] ED on 02/18/2023 with worsening weakness with frequent falls at home. Hospital course as noted below. Discharged to group home facility on 02/21 in stable condition. 1. Debility and weakness with mechanical falls Notably with recent admission in January for similar concerns. Insurance denied SNF at that time for unclear reasons. Patient had near syncopal episode at home on day of admission along with fall, felt weak and lethargic afterwards. CT brain without contrast on admit nonacute. Chest x-ray normal, no evidence of UTI. ? PT/OT/case management followed. Fall precautions in place during admission. Held home Coumadin due to fall and will discontinue on discharge as noted below. Discharged to SNF. 2. 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 Baseline creatinine appears to be around 1.3-1.6. Most likely prerenal SHA in setting of poor p.o. intake. S/p IV fluid resuscitation on admission. ? Creatinine 1.36 on day of discharge. Patient reported good urine output and improving p.o. intake during admission. 3. Paroxysmal A-fib ? Home meds of metoprolol and Coumadin. INR 2.3 on admit. Coumadin held on admit given history of recent falls. After discussion with family, opted to discontinue Coumadin on discharge given patient's risk of falls going forward. Okay to continue baby aspirin as an below. Continue home metoprolol. Chronic medical conditions: ? Type 2 diabetes mellitus with neuropathy: Lantus 25 units daily with sliding scale insulin with meals while inpatient. Continue home gabapentin. Restarted home insulin regimen and Jardiance on discharge. ? CAD s/p CABG in 2017 and stenting, hypertension, hyperlipidemia: Continue home Imdur, metoprolol, hydralazine, aspirin and statin. ? Hypothyroidism: Continue home Synthroid. ? History of CVA: Continue home aspirin and statin. ? Recent history of dementia with mood disorder: Continue home duloxetine. ? Overactive bladder: Continue home oxybutynin. Total clinical time spent by myself addressing the patient's discharge needs: 35 minutes. Physical Exam Const alert, oriented x3, no apparent distress and average body habitus Constitutional Narrative: Elderly female, sitting comfortably in bedside chair, conversing normally, no acute distress. General Appearance: cooperative and comfortable HEENT normocephalic, head/scalp atraumatic, hearing grossly normal bilaterally and nasal mucous membranes and turbinates normal Eyes PERRL, EOMs intact bilaterally and conjunctivae normal Neck full ROM, no lymphadenopathy and supple Lymph Lymphatic: no lymphadenopathy noted Chest inspection of chest normal Resp normal respiratory effort, normal air movement, no use of accessory muscles and clear to auscultation bilaterally Cardio regular rate, regular rhythm, no murmurs and peripheral pulses 2+ throughout GI normal to inspection, nondistended, normoactive bowel sounds, soft to palpation, non-tender and non-distended Back/Spine normal ROM Extremity normal to inspection, full ROM and no pedal edema Skin no rashes or lesions noted Neuro no focal motor deficits and no sensory deficits noted Speech: speech normal Psych mental status grossly normal Weight / BMI Weight Weight: 70.001 kg Body Mass Index (BMI) 27.3 ABG / Lab / Microbiology Data 02/19/23 05:58 02/21/23 03:55 Laboratory: Laboratory Results - last 24 hr 02/20/23 16:44: POC Glucose 353 H 02/20/23 21:09: POC Glucose 273 H 02/21/23 03:55: Sodium 137, Potassium 3.4 L, Chloride 107, Carbon Dioxide 22.0, Anion Gap 8, BUN 32 H, Creatinine 1.36 H, Estim Creat Clear Calc 28.38, Est GFR (MDRD) Af Amer 48 L, Est GFR (MDRD) Non-Af 39 L, BUN/Creatinine Ratio 23.5 H, Glucose 190 H, Calcium 8.7 02/21/23 06:49: POC Glucose 194 H 02/21/23 11:43: POC Glucose 221 H D/C Instructions Discharge Diet: No restrictions Weight Bearing Status: Full weight bearing Pending Tests Upon Discharge: None Please Follow Up With: Jose J Lezama, DO When: As needed Meaningful Use Info Meaningful Use Diagnoses (Choose all that apply): None applicable Discharge Plan Admission Admit Date/Time: 02/18/23 22:32 Primary Reason for Your Visit: Worsening weakness with falls Attending Provider: Clifford Lane Primary Care Provider: Jose J Lezama Consulting Providers: Lisset Cristobal Discharge Orders/Prescriptions Prescriptions: Continued cholecalciferol (vitamin D3) [Vitamin D3] 25 mcg (1,000 unit) capsule 25 mcg PO QODAY levothyroxine 50 mcg tablet 50 mcg PO DAILY oxybutynin chloride 10 MG tablet extended release 24hr 10 mg PO DAILY duloxetine 30 mg capsule,delayed release(DR/EC) 30 mg PO DAILY isosorbide mononitrate 60 mg tablet extended release 24 hr 60 mg PO DAILY aspirin [Adult Aspirin Regimen] 81 mg tablet,delayed release (DR/EC) 81 mg PO DAILY Jardiance 25 mg tablet 25 mg PO DAILY furosemide [Lasix] 20 mg tablet 20 mg PO DAILY Qty: 30 1RF gabapentin 300 mg capsule 300 mg PO TID Qty: 90 0RF ranolazine 500 mg tablet extended release 12 hr 500 mg PO Q12H metoprolol tartrate 25 mg tablet 25 mg PO DAILY memantine 5-10 mg tablets,dose pack See Protocol PO UD Protocol: Titrate Titrate Parameters: WEEK 1: TAKE ONE 5MG TABLET IN THE MORNING ONCE DAILY WEEK 2: TAKE ONE 5MG TABLET IN THE MORNING AND ONE 5MG TABLET AT BEDTIME WEEK 3: TAKE ONE 10MG TABLET IN THE MORNING AND ONE 5MG TABLET AT BEDTIME WEEK 4: TAKE ONE 10MG TABLET IN THE MORNING AND ONE 10 MG TABLET AT BEDTIME Patient Comments: PT IS CURRENTLY TAKING A MEMANTINE TITRATE DOSE PACK. TODAY (02/19/23) PT IS ON DAY 11 (WEEK 2) AND HAS HAD THEIR MORNING DOSE ONLY. Rx Instructions: WEEK 1: TAKE ONE 5MG TABLET IN THE MORNING ONCE DAILY WEEK 2: TAKE ONE 5MG TABLET IN THE MORNING AND ONE 5MG TABLET AT BEDTIME WEEK 3: TAKE ONE 10MG TABLET IN THE MORNING AND ONE 5MG TABLET AT BEDTIME WEEK 4: TAKE ONE 10MG TABLET IN THE MORNING AND ONE 10 MG TABLET AT BEDTIME atorvastatin 40 mg tablet 40 mg PO QHS Qty: 90 3RF hydralazine 100 mg tablet 100 mg PO TID Qty: 270 3RF nitroglycerin 0.4 mg tablet, sublingual 0.4 mg SUBLINGUAL Q5M PRN (Reason: chest pain) Qty: 25 3RF Rx Instructions: do not exceed 3 doses per episode (DME) [employer] Jong 2 [place] Misc See Rx Instructions .Route Qty: 1 0RF Rx Instructions: As directed insulin glargine [Lantus Solostar U-100 Insulin] 100 unit/mL (3 mL) insulin pen 27 unit subcut QPM Qty: 8.1 5RF Changed insulin lispro 100 unit/mL insulin pen 10 unit SUBCUT TID 30 Days Qty: 15 0RF Patient Comments: at meals Discontinued gabapentin 300 mg capsule 300 mg PO TID Patient Comments: 300mg in am, 300mg at lunch, and 600mg at HS insulin lispro [Humalog KwikPen Insulin] 100 unit/mL insulin pen 27 unit subcut TID PRN PRN (Reason: SLIDING SCALE) hydralazine 100 mg tablet 100 mg PO Q8H warfarin 4 mg tablet 4 mg PO DAILY insulin glargine [Lantus U-100 Insulin] 100 unit/mL solution 25 unit subcut DAILY Qty: 10 2RF insulin lispro [Humalog U-100 Insulin] 100 unit/mL solution 18 unit subcut TID Qty: 10 2RF isosorbide mononitrate 60 mg tablet extended release 24 hr 60 mg PO DAILY furosemide 40 mg tablet 40 mg PO .COMPLEX Qty: 180 3RF Hold Instructions: Resume on 12/10/22. Rx Instructions: 40 mg orally daily, may take 1 extra pill daily for weight gain, swelling, or shortness of breath; Referrals / Follow Up: Jose J Lezama DO [Primary Care Provider] - Disposition Disposition (needs filled in before D/C Order can be placed): [facility] Facility Charges/Coding Visit Charges Inpatient E&M: 46103 Disch Hosp >30min
[2023-02-21 14:10] VITALS: BP 151/60; PULSE 66; RESP 18; TEMP 36.4; O2SAT 97
[2023-02-21 14:14] VITALS: PULSE 66
--- NOTE | 2023-02-21 14:38 | PHA.DC.MR.R ---
Pharmacy [place] Med Reconciliation Pharmacy Service has performed discharge medication reconciliation for this patient. The patient's discharge medication list was reviewed for discrepancies and discrepancies were resolved. Medications at Discharge Home Medications oxybutynin chloride 10 mg tablet,extended release 24 hr 10 mg PO DAILY BLADDER 03/23/19 levothyroxine 50 mcg tablet 50 mcg PO DAILY thyroid 05/10/20 cholecalciferol (vitamin D3) 25 mcg (1,000 unit) capsule (Vitamin D3) 25 mcg PO QODAY vitamin 06/20/21 atorvastatin 40 mg tablet 40 mg PO QHS cholesterol #90 tabs 08/20/22 hydralazine 100 mg tablet 100 mg PO TID #270 tabs 08/20/22 nitroglycerin 0.4 mg sublingual tablet 0.4 mg sublingual Q5M PRN chest pain #25 tabs 08/20/22 flash glucose scanning reader ([employer] Jong 2 [place]) #1 ea 11/08/22 ranolazine 500 mg tablet,extended release,12 hr 500 mg PO Q12H 12/05/22 insulin glargine 100 unit/mL (3 mL) subcutaneous pen (Lantus Solostar U-100 Insulin) 27 unit (0.27 mL) subcut QPM #8.1 mL 01/30/23 aspirin 81 mg tablet,delayed release (Adult Aspirin Regimen) 81 mg PO DAILY 02/03/23 duloxetine 30 mg capsule,delayed release 30 mg PO DAILY DEPRESSION 02/03/23 isosorbide mononitrate 60 mg tablet,extended release 24 hr 60 mg PO DAILY 02/03/23 empagliflozin 25 mg tablet (Jardiance) 25 mg PO DAILY diabetes 02/06/23 furosemide 20 mg tablet (Lasix) 20 mg PO DAILY #30 tabs 02/07/23 gabapentin 300 mg capsule 300 mg PO TID #90 caps 02/07/23 metoprolol tartrate 25 mg tablet 25 mg PO DAILY 02/18/23 memantine 5 mg-10 mg tablets in a dose pack See Protocol PO UD MEMORY 02/19/23 insulin lispro 100 unit/mL subcutaneous pen 10 unit (0.1 mL) subcut TID 30 days #15 mL 02/21/23
--- NOTE | 2023-02-21 15:00 | NURSING ---
Tried to call report 2 times and got disconnected and tried to call back and there is no dial tome when calling.
--- NOTE | 2023-02-21 15:10 | NURSING ---
Called Report to the [facility] at [phone]. Pt to be picked up at 16:30 today.
--- NOTE | 2023-02-21 15:16 | CASEMGMT ---
Discharge Planning Discharge orders, signed med list, and transport time sent to [place] via [facility]. Physicians will transport patient by wheelchair at 4:30p. Nursing, SW, patient, and her daughter updated. Clara Grover, Discharge Planning Asst.
== END 2023-02-21 17:05 | disposition skilled nursing facility (03) ==
LOC: ED 22:32 → MS3 22:59 → MS2 02-19 20:38
PROVIDERS: Admitting Provider Student in an Organized Health Care Education/Training Program; Emergency Provider Emergency Medicine; PCP Family Medicine; Visit Provider Hospitalist
DX: R29.6 Repeated falls (principal); N17.9 Acute kidney failure, unspecified; F03.93 Unspecified dementia, unspecified severity, with mood disturbance; I13.0 Hypertensive heart and chronic kidney disease with heart failure and stage 1 through stage 4 chronic kidney disease, or unspecified chronic kidney disease; I50.32 Chronic diastolic (congestive) heart failure; E11.22 Type 2 diabetes mellitus with diabetic chronic kidney disease; I48.0 Paroxysmal atrial fibrillation; Z79.4 Long term (current) use of insulin; N18.32 Chronic kidney disease, stage 3b; E03.9 Hypothyroidism, unspecified; R53.81 Other malaise; G92.8 Other toxic encephalopathy; S09.90XA Unspecified injury of head, initial encounter; N32.81 Overactive bladder; Z86.73 Personal history of transient ischemic attack (TIA), and cerebral infarction without residual deficits; M79.7 Fibromyalgia; I25.10 Atherosclerotic heart disease of native coronary artery without angina pectoris; W19.XXXA Unspecified fall, initial encounter; E78.00 Pure hypercholesterolemia, unspecified; Z79.01 Long term (current) use of anticoagulants; R53.1 Weakness; Z79.82 Long term (current) use of aspirin; Z79.899 Other long term (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; Z79.890 Hormone replacement therapy
CPT/HCPCS: 36415; 70450; 71045; 80048; 80053; 82962; 83690; 83735; 84484; 85025; 85610; 85730; 93005; 96361; 96372; 96374; 97162; 97166; 99221; 99285; J7030; A4216; G0378; J2405

== ENCOUNTER → 2023-08-25 | Outpatient (CLI) | payer MEDICARE, MEDICAID, SELFPAY ==
[2023-06-17 15:45] VITALS: BMI 28.7
[2023-08-25 15:28] LABS: Absolute Lymphocyte Count 2.09 X10^3/uL (0.83-4.51); Absolute Neutrophil Count 6.6 X10^3/uL (2.0-7.7); Basophil# 0.05 X10^3/uL; Basophil% 0.5 % (0-1); Eosinophil# 0.25 X10^3/uL; Eosinophils% 2.5 % (0-5); Hematocrit 40.8 % (37-47); Hemoglobin 13.2 g/dL (12.0-15.0); Lymphocyte # 2.09 X10^3/ul (0.83-4.51); Lymphocyte % 21.2 % (19-41); Mean Corp Hgb Conc 32.4 g/dL (32-36); Mean Corpuscular Hgb 31.8 pg (27.0-32.0); Mean Corpuscular Volume 98.3 fL (81-99); Mean Platelet Vol. 11.6 fl (6.2-12.0); Monocyte# 0.79 X10^3/uL; NRBC Flagged by Analyzer 0 % (0-5); Neutrophil # 6.61 X10^3/uL (2.7-7.7); Neutrophil % 67.2 % (47-70); Platelet Count 191 K/mm3 (150-450); RBC Distribution Width CV 14.6 % (11.6-14.6); RBC Distribution Width SD 52.2 fl (35.1-43.9); Red Blood Count 4.15 M/mm3 (4.2-5.4); White Blood Count 9.9 K/mm3 (4.4-11.0)
[2023-08-25 15:38] LABS: ALB/GLOB Ratio 0.9 RATIO (0.9-2.4); AST(SGOT) 15 U/L (15-37); Alanine Aminotransfer ALT/SGPT 19 U/L (13-56); Albumin, Serum 3.4 g/dL (3.2-5.0); Alkaline Phosphatase 86 U/L (45-117); Anion Gap 9 (5-15); BUN 40 mg/dL (7-18); BUN/Creat Ratio 25.3 RATIO (10-20); Calcium,Total 8.6 mg/dL (8.5-10.1); Chloride 109 mmol/L (98-107); Creatinine, Serum 1.58 mg/dL (0.55-1.02); EST Glomerular Filtration Rate 33 mL/min (>60); Est Glom Filt Rate - Afr Amer 40 mL/min (>60); Globulin 3.6 g/dL (2.2-4.2); Glucose 158 mg/dL (74-106); Phosphorus 3.1 mg/dL (2.5-4.9); Potassium 4.7 mmol/L (3.5-5.1); Sodium Level 140 mmol/L (136-145)
[2023-08-25 15:45] LABS: PTHIN 166.8 pg/mL (18.4-80.1)
== END | disposition home or self-care (01) ==
LOC: BFHLAB 13:52
PROVIDERS: PCP Family Medicine; Referring Provider Family Medicine; Visit Provider Family Medicine
DX: N18.32 Chronic kidney disease, stage 3b (principal)
CPT/HCPCS: 36415; 80053; 83970; 84100; 85025

== ENCOUNTER 2023-09-02 12:14 | Emergency (ER) | payer MEDICARE, MEDICAID, SELFPAY ==
[2023-06-17 15:45] VITALS: BMI 28.7
[2023-09-02 12:18] VITALS: BP 144/53; PULSE 57; RESP 18; TEMP 36.4; O2SAT 93
--- NOTE | 2023-09-02 12:41 | CT_ITS ---
STUDY: CT BRAIN WITHOUT CONTRAST REASON FOR EXAM: Female, 87 years old. Fall and head injury RADIATION DOSAGE (If Supplied By Facility): CTDIvol = ( 44.99 ) mGy, DLP = ( 762.36 ) mGycm TECHNIQUE: Transaxial CT imaging of the brain was performed without administration of intravenous contrast material. Individualized dose optimization techniques were used for this CT. COMPARISON: Comparison is made with prior study dated February 18, 2023. FINDINGS: Normal soft tissue structures. Normal calvarium. There is moderate cerebral atrophy with widening of the extra-axial spaces and ventricular dilatation. There are areas of decreased attenuation within the white matter tracts of the supratentorial brain, consistent with microvascular disease changes. Normal basal ganglia and thalami. Normal brainstem. [place] lacunar infarct in the right cerebellum. There is no intracranial hemorrhage. There are no findings of an acute ischemic infarction. Atherosclerotic plaque formation of the cavernous portions of the internal carotid arteries bilaterally. Normal visualized paranasal sinuses. CT/Brain/Head without Contrast IMPRESSION: Chronic involutional changes of the brain. Electronically Signed: Sai Calhoun MD at 13:26 EDT ,
--- NOTE | 2023-09-02 12:47 | EDS_ITS ---
HPI HPI - Fall History of Present Illness Chief Complaint: Fall Informant: patient Occured/Mechanism Occurred: Today Mechanism/Context: Yes same level fall Usually ambulates: Without assistance Pain/Injury Pain Location: head Quality of Pain: Dull and Aching Current Severity: Mild Associated Symptoms Associated Symptoms: Negative for Parasthesias, Weakness, Loss of function, Inability to ambulate or Loss of consciousness Narrative Narrative: 87-year-old female history of prior stroke, diabetes and A-fib. Currently resides at the [facility] a local nursing facility. Today she fell while there hitting the left side of her head. No LOC. She is on aspirin no other blood thinners she does not believe. Complaining of mild headache. No neck pain. No other injuries. She had a mild abrasion to her left knee that they bandaged. Prior similar symptoms: Yes Recent Illness/Hospitalization: No PFSH PFSH Medical History Right shoulder pain Diabetes Kidney disease Non-smoker BiPAP (biphasic positive airway pressure) dependence Sleep apnea Hypertension Congestive heart failure (CHF) Atrial fibrillation Stroke/cerebrovascular accident Sleep apnea Kidney disease Atrial fibrillation Hypertension Chest pain History of coronary artery disease Pulmonary HTN Vertigo Chronic anticoagulation residential current use of anticoagulant Wears hearing aid Post-menopausal Thyroid disease Insulin dependent diabetes mellitus Ambulates with cane Arthritis History of renal disease High cholesterol Easy bruising Back pain Migraine headache Difficulty swallowing Dietary restriction Shortness of breath on exertion History of pain when walking History of echocardiogram History of stress test Hypertension Cardiology follow-up encounter History of CHF (congestive heart failure) History of atrial fibrillation Osteoarthritis of left knee CAD (coronary artery disease) PAF (paroxysmal atrial fibrillation) Acute on chronic heart failure with preserved ejection fraction (HFpEF) New onset atrial fibrillation Congestive heart failure Broken ribs Lower GI bleeding Intertrigo Diabetes Non-smoker CPAP (continuous positive airway pressure) dependence Coronary artery disease Stroke/cerebrovascular accident (HFpEF) heart failure with preserved ejection fraction Microalbuminuria Pure hypercholesterolemia Essential hypertension Hypothyroidism GERD (gastroesophageal reflux disease) Fibromyalgia Atherosclerotic heart disease of wiy[place] coronary artery without angina pectoris Presence of stent in coronary artery (~12/11/18) Carotid stenosis, left Debility Fatigue Chronic renal failure, stage 3 (moderate) Other custodial (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 Angina pectoris Obstructive sleep apnea Lumbosacral radiculopathy CAD (coronary artery disease) Renal cancer History of stroke Diabetes mellitus, type 2 Home Medications ?Medication ?Instructions ?Recorded ?Last Taken ?Type levothyroxine 50 mcg tablet 50 mcg PO DAILY thyroid 05/10/20 07/18/22 History cholecalciferol (vitamin D3) 25 25 mcg PO QODAY vitamin 06/20/21 02/19/23 History mcg (1,000 unit) capsule (Vitamin D3) atorvastatin 40 mg tablet 40 mg PO QHS cholesterol #90 tabs 08/20/22 Unknown Rx nitroglycerin 0.4 mg sublingual 0.4 mg sublingual Q5M PRN chest 08/20/22 Unknown Rx tablet pain #25 tabs flash glucose scanning reader #1 ea 11/08/22 Unknown Rx (FreeStyle Jong 2 Theriot) ranolazine 500 mg tablet,extended 500 mg PO Q12H 12/05/22 Unknown History release,12 hr aspirin 81 mg tablet,delayed 81 mg PO DAILY 02/03/23 02/19/23 History release (Adult Aspirin Regimen) isosorbide mononitrate 60 mg 60 mg PO DAILY 02/03/23 Unknown History tablet,extended release 24 hr furosemide 20 mg tablet (Lasix) 20 mg PO DAILY #30 tabs 02/07/23 Unknown Rx gabapentin 300 mg capsule 300 mg PO TID #90 caps 02/07/23 Unknown Rx metoprolol tartrate 25 mg tablet 25 mg PO DAILY 02/18/23 Unknown History bisacodyl 10 mg rectal suppository 10 mg MT DAILY PRN 06/12/23 Unknown History insulin lispro 100 unit/mL 18 unit subcut TID 06/12/23 Unknown History subcutaneous pen lidocaine 4 % topical patch 1 patch topical DAILY PRN 06/12/23 Unknown History (Lidocaine Pain Relief) magnesium hydroxide 400 mg/5 mL 15 ml PO BID PRN 06/12/23 Unknown History oral suspension (Milk of Magnesia) meclizine 12.5 mg tablet 12.5 mg PO BID-QID PRN 06/12/23 Unknown History memantine 5 mg tablet 5 mg PO BID 06/12/23 Unknown History menthol 4 % topical gel (Biofreeze 1 applic topical QD-BID PRN 06/12/23 Unknown History (menthol)) mineral oil (Fleet Mineral Oil 118 ml MT DAILY PRN 06/12/23 Unknown History enema) trazodone 150 mg tablet 150 mg PO QHS 06/12/23 Unknown History vibegron 75 mg tablet (Gemtesa) 75 mg PO DAILY 06/12/23 Unknown History hydralazine 100 mg tablet 50 mg PO TID 07/17/23 Unknown History insulin glargine 100 unit/mL (3 33 unit subcut QPM 07/17/23 Unknown History mL) subcutaneous pen (Lantus Solostar U-100 Insulin) Allergy/AdvReac Type Severity Reaction Status Date / Time morphine Allergy Intermediate Low blood Verified 09/02/23 12:17 pressure latex Allergy Rash Verified 09/02/23 12:17 adhesive tape AdvReac Rash Verified 09/02/23 12:17 ticagrelor (From Brilinta) AdvReac Shortness Verified 09/02/23 12:17 of breath Family History Father Heart disease Mother Breast cancer Diabetes Heart disease Surgical History History of coronary artery stent placement Hx of CABG History of coronary artery stent placement History of arthroscopic knee surgery History of cardiac catheterization Hx of hand surgery H/O hemorrhoidectomy History of appendectomy History of cholecystectomy Hx of CABG History of right and left heart catheterization (LHC) (~08/10/19) History of coronary artery bypass graft x 3 (~04/08/16) Presence of coronary angioplasty implant and graft (~12/11/18) History of back surgery History of right inguinal hernia repair History of knee replacement procedure of right knee History of hysterectomy Postlaminectomy syndrome of lumbar region Social History household members: spouse housing: house Smoking Status: Never smoker alcohol intake: never substance use type: does not use caffeine: No ROS ROS ED ROS Narrative Denies recent illness. Constitutional Constitutional ED: Denies chills or fever(s) Eyes Eyes: Denies blurry vision ENT ENT ED: Denies ear pain Cardiovascular Cardiovascular: Denies chest pain Respiratory/Chest Respiratory/Chest: Denies cough or dyspnea Gastrointestinal Gastrointestinal: Denies abdominal pain Genitourinary Genitourinary ED: Denies dysuria or hematuria Musculoskeletal Musculoskeletal: Denies arthralgias Integumentary Denies abscess or Abrasions Neurologic Neurologic: Denies headache(s) Psychiatric Psychiatric: Denies anxiety Endocrine Endocrinology: Denies polydipsia Hematologic/Lymphatic Hematologic/Lymphatic: Denies easy bleeding Allergic/Immunologic Allergic/Immunologic ED: Denies mouth swelling EXAM Physical Exam Narrative Exam Narrative: 87-year-old female vital signs stable afebrile. No acute distress. Sitting upright in bed. at bedside. H EENT exam given dominant leg. She has tenderness to her left side of her scalp and parietal region. No hematoma. No laceration. Rest of her head is nontender. C-spine nontender. Back and spine nontender. Lungs clear. Heart rate about 60 no murmur. Chest wall and ribs nontender. Abdomen soft nontender. Pelvic girdle intact. Patient moving all 4 extremities. 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 Dorsi plantarflexion intact. N eurologically patient is awake and alert. No focal motor deficits. Const Vital Signs: 09/02/23 12:18 09/02/23 12:28 09/02/23 14:49 Temperature 97.5 F L 97.2 F L Temperature Source Temporal Oral Pulse Rate 57 L 72 Respiratory Rate 18 15 Respiratory Effort Normal Blood Pressure 144/53 H 138/62 H Blood Pressure Mean 83 87 Pulse Ox 93 94 Oxygen Delivery Method Room Air Positive well nourished and well developed; Negative for cachectic, contractures or unkempt General Appearance ED: well developed and NAD; Negative for unkempt, cachectic or contractures Nutritional Appearance: Negative for cachectic HEENT Reports normocephalic HEENT Narrative: Mild tenderness left parietal scalp. No hematoma or laceration. trauma and tenderness; Negative for hematoma Eyes PERRL and EOMs intact bilaterally General Eye ED: Negative for pale conjunctiva Neck full ROM, no lymphadenopathy and supple General: Negative for tenderness Chest Wall inspection of chest normal and palpation of chest normal Chest: Negative for other Resp normal respiratory effort, no retractions and clear to auscultation bilaterally Effort and Inspection: Negative for pain with movement Auscultation: Negative for rales, rhonchi, wheezes or diminished lung sounds Cardio regular rate, regular rhythm, S1 normal heart sound, S2 normal heart sound and no murmurs GI non-tender, non-distended and no masses Inspection: Negative for abdominal distention Auscultation: normoactive bowel sounds Palpation: soft; Negative for guarding or rebound tenderness present Back/Spine no CVA tenderness General Back: Negative for CVA tenderness Cervical Spine: Negative for cervical spine tenderness Thoracic Spine / Upper Back: Negative for ROM limited Lumbar Spine / Lower Back: Negative for lumbar spinal tenderness Neuro oriented x3, CN's II-XII intact bilaterally, moves all extremities and no focal motor deficits Shashank Coma Scale: document GCS findings Spontaneous Obeys Commands Oriented 15 Sensorium / Orientation: alert, oriented to person and oriented to place Motor Exam: strength 5/5 throughout Psych mental status grossly normal and thought process normal Appearance: Negative for unkempt Attitude: No agitated Mood & Affect: Negative for depressed or tearful Skin Lesions: no lesions Rashes: no rashes Trauma: Negative for abrasion MDM MDM MDM Narrative Medical decision making narrative: 87-year-old female fall [facility] the [facility] struck the left side of her head. Complains of a mild headache. There is no significant trauma to the outside of her head. CAT scan will be obtained. I do not think she needs any other imaging or labs. She does have a minor abrasion to her left knee but has normal flexion extension of the knee. No significant tenderness or swelling. Repeat exam patient doing well at 3:10 PM. Awake alert. We discussed her CAT scan results. Her exam is unchanged. She will be discharged back to her extended care facility. Head injury instructions. History & Record Review Discussion w/independent historian: Patient and Family Additional record(s) reviewed:: Prior inpatient record, Prior outpatient record, Prior ED visit, Prior labs, No prior records and Other Radiography Diagnostic Testing: Clinical Impression(s) from Imaging Studies Brain CT 09/02/23 12:41 IMPRESSION: Chronic involutional changes of the brain. Electronically Signed: Sai Calhoun MD at 13:26 EDT , Discharge Plan Triage Chief Complaint: Fall ED Provider: Dc Mcpherson Dx/Rx/DC Orders Clinical Impression: Fall, Closed head injury Instructions: ED Head Injury (Adult) Prescriptions: No Action cholecalciferol (vitamin D3) [Vitamin D3] 25 mcg (1,000 unit) capsule 25 mcg PO QODAY levothyroxine 50 mcg tablet 50 mcg PO DAILY hydralazine 100 mg tablet 50 mg PO TID Gemtesa 75 mg tablet 75 mg PO DAILY lidocaine [Lidocaine Pain Relief] 4 % adhesive patch,medicated 1 patch topical DAILY PRN meclizine 12.5 mg tablet 12.5 mg PO BID-QID PRN insulin lispro 100 unit/mL insulin pen 18 unit SUBCUT TID Patient Comments: at meals mineral oil [Fleet Mineral Oil] Enema 118 ml MT DAILY PRN Rx Instructions: discard any unused portion magnesium hydroxide [Milk of Magnesia] 400 mg/5 mL suspension 15 ml PO BID PRN bisacodyl 10 mg suppository 10 mg MT DAILY PRN trazodone 150 mg tablet 150 mg PO QHS memantine 5 mg tablet 5 mg PO BID Biofreeze (menthol) 4 % gel 1 applic topical QD-BID PRN insulin glargine [Lantus Solostar U-100 Insulin] 100 unit/mL (3 mL) insulin pen 33 unit subcut QPM isosorbide mononitrate 60 mg tablet extended release 24 hr 60 mg PO DAILY aspirin [Adult Aspirin Regimen] 81 mg tablet,delayed release (DR/EC) 81 mg PO DAILY furosemide [Lasix] 20 mg tablet 20 mg PO DAILY Qty: 30 1RF gabapentin 300 mg capsule 300 mg PO TID Qty: 90 0RF ranolazine 500 mg tablet extended release 12 hr 500 mg PO Q12H metoprolol tartrate 25 mg tablet 25 mg PO DAILY atorvastatin 40 mg tablet 40 mg PO QHS Qty: 90 3RF nitroglycerin 0.4 mg tablet, sublingual 0.4 mg SUBLINGUAL Q5M PRN (Reason: chest pain) Qty: 25 3RF Rx Instructions: do not exceed 3 doses per episode (DME) FreeStyle Jong 2 Theriot Misc See Rx Instructions .Route Qty: 1 0RF Rx Instructions: As directed Primary Care Provider: Jose J Lezama Referrals: Jose J Lezama DO [Primary Care Provider] - As Needed Activity Restrictions/Additional Instructions: Tylenol for pain. Follow-up with your doctor as needed. Return if severe headache, vomiting or not acting right. Print Language: Khmer Disposition Disposition: Home, Self Care
[2023-09-02 14:49] VITALS: BP 138/62; PULSE 72; RESP 15; TEMP 36.2; O2SAT 94
[2023-09-02 15:21] VITALS: BP 129/61; PULSE 58; RESP 18; TEMP 36.5; O2SAT 92
== END 2023-09-02 15:23 | disposition skilled nursing facility (03) ==
PROVIDERS: Emergency Provider Emergency Medicine; PCP Family Medicine; Visit Provider Emergency Medicine
DX: S09.90XA Unspecified injury of head, initial encounter (principal); I13.0 Hypertensive heart and chronic kidney disease with heart failure and stage 1 through stage 4 chronic kidney disease, or unspecified chronic kidney disease; I50.32 Chronic diastolic (congestive) heart failure; I48.0 Paroxysmal atrial fibrillation; Z79.4 Long term (current) use of insulin; E11.22 Type 2 diabetes mellitus with diabetic chronic kidney disease; N18.30 Chronic kidney disease, stage 3 unspecified; W18.30XA Fall on same level, unspecified, initial encounter; Y92.129 Unspecified place in nursing home as the place of occurrence of the external cause; I25.10 Atherosclerotic heart disease of native coronary artery without angina pectoris; Z95.1 Presence of aortocoronary bypass graft; Z95.5 Presence of coronary angioplasty implant and graft; Z79.01 Long term (current) use of anticoagulants; Z79.82 Long term (current) use of aspirin; Z79.899 Other long term (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; Z86.73 Personal history of transient ischemic attack (TIA), and cerebral infarction without residual deficits
CPT/HCPCS: 70450; 99282

== ENCOUNTER → 2023-11-20 | Outpatient (CLI) | payer MEDICARE, MEDICAID, SELFPAY ==
[2023-06-17 15:45] VITALS: BMI 28.7
--- NOTE | 2023-11-20 13:46 | VDLE_ITS ---
Reason For Study: Bilateral leg swelling RIGHT LEFT CFV is compressible, spontaneous, phasic, CFV is compressible, spontaneous, phasic, competent and demonstrates normal competent, and demonstrates normal augmentation. augmentation. FV is compressible, spontaneous, phasic, FV is compressible, spontaneous, phasic, competent and demonstrates normal competent and demonstrates normal augmentation. augmentation. POP V is compressible, spontaneous, phasic, POP V is compressible, spontaneous, phasic, competent and demonstrates normal competent and demonstrates normal augmentation. augmentation. T/P Trunk is compressible. T/P Trunk is compressible. PTV is compressible. PTV is compressible. RT PerV is compressible. LT PerV is compressible. SFJ is INCOMPETENT and measures 0.56 cm. GSV was previously harvested. GSV proximal thigh measures 0.14 x 0.15 cm. SFJ is competent and measures 0.55 cm. GSV at knee measures 0.11 x 0.10 cm. SSV proximal calf is competent and measures GSV INCOMPETENT throughout for greater than 0.21 x 0.20 cm. 0.5 seconds. SSV proximal calf is competent and measures 0.09 x 0.10 cm. Procedure This is a venous duplex using B-mode, color flow and spectral Doppler. Exam performed in department. Patient was scanned in reverse Trendelenburg position during reflux assessment. Technically difficult due to vessel size. VL/Venous Duplex US - Virgil Extrem Interpretation Summary Deep veins of the bilateral lower extremities are patent and compressible segme ntally. There is no evidence of bilateral lower extremity deep vein thrombosis. The right great sap henous vein appears patent and compressible segmentally. Positive for reflux in the right saphenofemoral junction, great saphenous vein throughout Ordering Physician: Taylor Montes Referring Physician: Jose J Lezama Performed By: Aneta Horner RVT
== END | disposition home or self-care (01) ==
LOC: CVS 13:46
PROVIDERS: PCP Family Medicine; Referring Provider Physician Assistant; Visit Provider Physician Assistant
DX: R60.0 Localized edema (principal)
CPT/HCPCS: 93970

== ENCOUNTER 2024-05-02 08:16 | Observation (INO) | payer MEDICARE, MEDICAID, SELFPAY ==
[2023-06-17 15:45] VITALS: BMI 28.7
[2024-05-02] VITALS (12 sets, daily range): BP systolic 150–199; BP diastolic 63–88; PULSE 66–77; RESP 16–22; TEMP 36.7–37.1; O2SAT 92–100; BMI 30.2; BMI 29.0
--- NOTE | 2024-05-02 08:37 | CT_ITS ---
PROCEDURE: SPINE CERVICAL WITHOUT CONTRAS 05/02/2024 REASON FOR EXAM: TRAUMA TECHNIQUE: Cervical spine CT without contrast. Coronal and Sagittal reconstruction series were provided. One or more dose reduction techniques were used (e.g., Automated exposure control, adjustment of the mA and/or kV according to patient size, use of iterative reconstruction technique RADIATION DOSE SUMMARY: CTDlvol: 25.46 mGy DLP: 468.81 mGycm COMPARISON: Cervical spine CT of 09/02/2022. FINDINGS: Alignment: Stable slight anterior subluxation of C7 upon T1. No new or worsened area of subluxation is seen. Vertebrae: Prominent degenerative disc disease throughout the cervical spine is again seen, with relative sparing of the C3-C4 level, and marked narrowing at C4-C5, C5-C6, and especially C6-C7 levels, only slightly progressed since the prior comparison study of 09/02/2022. Soft Tissues: No prevertebral soft tissue swelling is noted. No fracture site is evident. C1-2: Mild degenerative changes seen of the atlantodental articulation. C2-3: Stable degenerative changes. C3-4: Stable degenerative changes include including disc bulge and partial calcification surrounding the bulge. C4-5: Stable degenerative changes, including disc bulge. C5-6: Slightly progressive degenerative changes, including mild disc bulge. C6-7: Slightly progressive degenerative changes, including mild disc bulge. C7-T1: Stable degenerative changes. CT/Spine Cervical without Contras IMPRESSION: 1. No fracture, subluxation, or prevertebral soft tissue swelling is seen. 2. Stable to slightly progressed multilevel degenerative changes. Reading Location: [id number]
--- NOTE | 2024-05-02 08:37 | CT_ITS ---
EXAM: BRAIN/HEAD WITHOUT CONTRAST CLINICAL HISTORY: 88 y/o F with TRAUMA. COMPARISON: Head CT of 09/02/2023. TECHNIQUE: Routine CT imaging of the head without IV contrast. Additional multiplanar reformats were obtained. Dose reduction techniques were used including intermediate exposure control (AEC),iterative reconstruction technique, and/or mA and/or KV dose adjustments based on patient's size. FINDINGS: A right frontal cephalohematoma is noted. No fracture site is seen. No orbital pathology is noted. No fracture site is seen. Moderate generalized cerebral and cerebellar atrophy is noted. There is no evidence of intracranial hemorrhage. There is no midline shift, mass effect, or extra-axial collection. The merino and white matter differentiation in the bilateral cerebral hemispheres is maintained, refuting an acute, large territorial infarct. An old right cerebellar lacunar infarction is again seen. There are moderate, diffuse, symmetrical, periventricular and subcortical white matter lucencies, which may represent sequela of small vessel disease in a patient of this age. The visualized paranasal sinuses and mastoids are unremarkable. CT/Brain/Head without Contrast IMPRESSION: Right frontal cephalohematoma. No intracranial hemorrhage or large territorial infarct. Additional, chronic appearing, findings as described. Reading Location: [id number]
--- NOTE | 2024-05-02 08:37 | EKG12_ITS ---
Test Reason : FALL Blood Pressure : */* mmHG Vent. Rate : 72 BPM Atrial Rate : 72 BPM P-R Int : 212 ms QRS Dur : 78 ms QT Int : 418 ms P-R-T Axes : 29 0 9 degrees QTcB Int : 457 ms Sinus rhythm with 1st degree A-V block Inferior infarct , age undetermined Abnormal ECG Confirmed by LAURA BENITEZ, CARRIE ([id number]), business editor KATHI TSE ([id number]) on 05/03/2024 8:19:30 AM Referred By: ABEL Confirmed By: CARRIE SANCHEZ MD
[2024-05-02] MEDS: Diphth,Pertuss(Acell),Tet Vac 0.5 ML Vial IM (08:44)
[2024-05-02 08:45] LABS: Absolute Lymphocyte Count 1.65 X10^3/uL (0.83-4.51); Absolute Neutrophil Count 6.7 X10^3/uL (2.0-7.7); Basophil# 0.07 X10^3/uL; Basophil% 0.7 % (0-1); Eosinophil# 0.44 X10^3/uL; Eosinophils% 4.6 % (0-5); Hematocrit 42.6 % (37-47); Hemoglobin 13.8 g/dL (12.0-15.0); Lymphocyte # 1.65 X10^3/ul (0.83-4.51); Lymphocyte % 17.2 % (19-41); Mean Corp Hgb Conc 32.4 g/dL (32-36); Mean Corpuscular Hgb 31.6 pg (27.0-32.0); Mean Corpuscular Volume 97.5 fL (81-99); Mean Platelet Vol. 11.4 fl (6.2-12.0); Monocyte# 0.72 X10^3/uL; Monocyte% 7.5 % (0-10); NRBC Flagged by Analyzer 0 % (0-5); Neutrophil # 6.67 X10^3/uL (2.7-7.7); Neutrophil % 69.6 % (47-70); Platelet Count 195 K/mm3 (150-450); RBC Distribution Width CV 13.5 % (11.6-14.6); Red Blood Count 4.37 M/mm3 (4.2-5.4); White Blood Count 9.6 K/mm3 (4.4-11.0)
[2024-05-02] MEDS: 0.9% Normal Saline (1000mL) 1,000 ML 999 ML IV (08:45)
--- NOTE | 2024-05-02 08:47 | EX.ED.DYSGE1 ---
HPI History of Present Illness Chief Complaint: Fall Narrative Narrative: Patient is a 88-year-old female with past medical history of FRANKLIN, CHF, hypertension, pulmonary hypertension, migraine headache, atrial fibrillation paroxysmal, diabetes, GERD, carotid stenosis who presented to the emergency department the chief complaint of fall and head laceration. Patient states that she sat up this morning to get up and noted that she became dizzy. She states that she sat there for a while and noted that she felt better so therefore she attempted to get up and when she stood up she immediately fell forward hitting her face on the ground. Patient states that she is had problems with dizziness for a significant amount of time now this is not a new issue. Patient states that she believes she has not any blood thinner medications and does not know when her last tetanus shot was. 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 Wears hearing aid Post-menopausal Thyroid disease Insulin dependent diabetes mellitus Ambulates with cane Arthritis History of renal disease High cholesterol Easy bruising Back pain Migraine headache Difficulty swallowing Dietary restriction Shortness of breath on exertion History of pain when walking History of echocardiogram History of stress test Hypertension Cardiology follow-up encounter History of CHF (congestive heart failure) History of atrial fibrillation Osteoarthritis of left knee CAD (coronary artery disease) PAF (paroxysmal atrial fibrillation) Acute on chronic heart failure with preserved ejection fraction (HFpEF) New onset atrial fibrillation Congestive heart failure Broken ribs Lower GI bleeding Intertrigo Diabetes Non-smoker CPAP (continuous positive airway pressure) dependence Coronary artery disease Stroke/cerebrovascular accident (HFpEF) heart failure with preserved ejection fraction Microalbuminuria Pure hypercholesterolemia Essential hypertension Hypothyroidism GERD (gastroesophageal reflux disease) Fibromyalgia Atherosclerotic heart disease of [place] coronary artery without angina pectoris Presence of stent in coronary artery (~12/11/18) Carotid stenosis, left Debility Fatigue Angina pectoris Obstructive sleep apnea Lumbosacral radiculopathy CAD (coronary artery disease) Renal cancer History of stroke Diabetes mellitus, type 2 Home Medications ?Medication ?Instructions ?Recorded ?Last Taken ?Type levothyroxine 50 mcg tablet 50 mcg PO DAILY thyroid 05/10/20 05/02/24 History cholecalciferol (vitamin D3) 25 25 mcg PO DAILY vitamin 06/20/21 05/01/24 History mcg (1,000 unit) capsule (Vitamin D3) atorvastatin 40 mg tablet 40 mg PO QHS cholesterol #90 tabs 08/20/22 05/01/24 Rx nitroglycerin 0.4 mg sublingual 0.4 mg sublingual Q5M PRN chest 08/20/22 Unknown Rx tablet pain #25 tabs flash glucose scanning reader #1 ea 11/08/22 Unknown Rx (FreeStyle Jong 2 [place]) ranolazine 500 mg tablet,extended 500 mg PO Q12H 12/05/22 05/01/24 History release,12 hr aspirin 81 mg tablet,delayed 81 mg PO DAILY 02/03/23 02/19/23 History release (Adult Aspirin Regimen) gabapentin 300 mg capsule 300 mg PO TID NEUROPATHY #90 caps 02/07/23 05/02/24 Rx bisacodyl 10 mg rectal suppository 10 mg KS DAILY PRN constipation 06/12/23 Unknown History insulin lispro 100 unit/mL 18 unit subcut TID 06/12/23 05/01/24 History subcutaneous pen lidocaine 4 % topical patch 1 patch topical DAILY pain 06/12/23 05/01/24 History (Lidocaine Pain Relief) magnesium hydroxide 400 mg/5 mL 30 ml PO DAILY PRN constipation 06/12/23 Unknown History oral suspension (Milk of Magnesia) meclizine 12.5 mg tablet 12.5 mg PO Q4H PRN dizziness 06/12/23 04/30/24 History menthol 4 % topical gel (Biofreeze 1 applic topical DAILY PRN pain 06/12/23 Unknown History (menthol)) mineral oil (Fleet Mineral Oil 118 ml KS DAILY PRN constipation 06/12/23 Unknown History enema) insulin glargine 100 unit/mL (3 28 unit subcut QHS 07/17/23 05/01/24 History mL) subcutaneous pen (Lantus Solostar U-100 Insulin) loratadine 10 mg tablet 10 mg PO DAILY PRN allergy symptoms 09/15/23 Unknown History memantine 5 mg tablet 10 mg PO BID DEMENTIA 09/15/23 05/01/24 History duloxetine 60 mg capsule,delayed 60 mg PO DAILY 12/30/23 05/01/24 History release acetaminophen 500 mg oral powder 1,000 mg PO TID PRN fever or pain 02/13/24 05/01/24 History packet (Tylenol Extra Strength) albuterol sulfate 2.5 mg/3 mL 2.5 mg inhalation Q6H PRN 02/13/24 Unknown History (0.083 %) solution for nebulization bronchospasm benzonatate 100 mg capsule 100 mg PO Q8H PRN cough 02/13/24 Unknown History dextran 70-hypromellose 0.1 %-0.3 1 drp ophthalmic (eye) Q8H PRN dry 02/13/24 Unknown History % eye drops eye(s) isosorbide mononitrate 60 mg 60 mg PO BID HTN 03/11/24 05/01/24 History tablet,extended release 24 hr semaglutide 0.25 mg or 0.5 mg (2 0.25 mg (0.368 mL) subcut QWEEK #3 04/01/24 04/26/24 Rx mg/3 mL) subcutaneous pen injector mL (Ozempic) empagliflozin 25 mg tablet 25 mg PO QAM DIABETES #30 tabs 04/15/24 05/01/24 Rx (Jardiance) furosemide 20 mg tablet (Lasix) 20 mg PO DAILY edema, SOB 05/02/24 05/01/24 History gabapentin 100 mg capsule 100 mg PO QHS 05/02/24 05/01/24 History guaifenesin 600 mg tablet, 600 mg PO Q12H PRN congestion 05/02/24 Unknown History extended release 12 hr hydralazine 100 mg tablet 50 mg PO TID HTN 05/02/24 04/29/24 History insulin lispro 100 unit/mL See Protocol subcut .COMPLEX 05/02/24 05/01/24 History subcutaneous solution (Humalog U-100 Insulin) oxybutynin chloride 5 mg 5 mg PO DAILY BLADDER SPASMS 05/02/24 05/01/24 History tablet,extended release 24 hr tramadol 50 mg tablet 125 mg PO QHS INSOMNIA 05/02/24 05/01/24 History Allergy/AdvReac Type Severity Reaction Status Date / Time morphine Allergy Intermediate Low blood Verified 04/01/24 15:04 pressure latex Allergy Rash Verified 04/01/24 15:04 adhesive tape AdvReac Rash Verified 04/01/24 15:04 ticagrelor (From Brilinta) AdvReac Shortness Verified 04/01/24 15:04 of breath Family History Father Heart disease Mother Breast cancer Diabetes Heart disease Surgical History History of coronary artery stent placement Hx of CABG History of coronary artery stent placement History of arthroscopic knee surgery History of cardiac catheterization Hx of hand surgery H/O hemorrhoidectomy History of appendectomy History of cholecystectomy Hx of CABG History of right and left heart catheterization (LHC) (~08/10/19) History of coronary artery bypass graft x 3 (~04/08/16) Presence of coronary angioplasty implant and graft (~12/11/18) History of back surgery History of right inguinal hernia repair History of knee replacement procedure of right knee History of hysterectomy Postlaminectomy syndrome of lumbar region Social History household members: spouse housing: house Smoking Status: Never smoker alcohol intake: never substance use type: does not use caffeine: No ROS ROS ED ROS Narrative Constitutional: Complains of laceration to head denies fevers, chills, headaches, lightness, dizziness Eyes: Denies change in vision double vision blurry vision Cardiovascular: Denies chest pain or palpitations Respiratory: Denies shortness of breath Abdomen: Denies abdominal pain nausea vomit diarrhea : Denies any urinary symptoms Neurological: Denies numbness, weakness, tingling Musculoskeletal: Denies back pain Skin: Complaint of head laceration EXAM Physical Exam Narrative Exam Narrative: General: Patient lying in bed rest comfortably did not appear to be in acute distress Head: Patient has a complex 6 cm x 3 cm laceration noted on her right forehead, normocephalic Eyes: PERRL bilaterally, EOMI bilateral, patient does have subconjunctival hemorrhage noted in her right eye Neck: Soft, supple, trach midline Cardiovascular: Regular rate and rhythm Respiratory: Clear to auscultation bilaterally Abdomen: Soft, nondistended, nontender to palpation Musculoskeletal: Patient had some pain with attempted range of motion of her right hip, tenderness to palpation of the left wrist all of the bony prominences and joints taken to full range of motion no pain elicited Extremities: +4/5 strength noted in the bilateral lower extremities, no pedal edema on exam Neurological: Patient follow commands knew that she was at [facility] year is 2024 Skin: Warm, dry, intact no rashes or lesions noted CT head Const Vital Signs: 05/02/24 08:17 05/02/24 08:26 05/02/24 09:17 Temperature 98.3 F Temperature Source Oral Pulse Rate 73 74 Pulse Rate [Lying] Pulse Rate [Sitting (for 1 minute prior to obtaining)] Pulse Rate [Standing (for 1 minute prior to obtaining)] Respiratory Rate 20 H 18 Respiratory Effort Normal Respiratory Depth Normal Respiratory Pattern Normal Blood Pressure 190/75 H 187/79 H Blood Pressure [Lying] Blood Pressure [Sitting (for 1 minute prior to obtaining)] Blood Pressure [Standing (for 1 minute prior to obtaining)] Blood Pressure Mean 113 115 Blood Pressure Mean [Lying] Blood Pressure Mean [Sitting (for 1 minute prior to obtaining)] Blood Pressure Mean [Standing (for 1 minute prior to obtaining)] Pulse Ox 92 95 Oxygen Delivery Method Room Air Room Air 05/02/24 09:52 05/02/24 10:00 05/02/24 11:19 Temperature Temperature Source Pulse Rate 74 Pulse Rate [Lying] 74 Pulse Rate [Sitting (for 1 minute prior to obtaining)] 75 Pulse Rate [Standing (for 1 minute prior to obtaining)] 75 Respiratory Rate 18 Respiratory Effort Respiratory Depth Respiratory Pattern Blood Pressure 178/76 H 165/88 H Blood Pressure [Lying] 199/80 H Blood Pressure [Sitting (for 1 minute prior to obtaining)] 194/85 H Blood Pressure [Standing (for 1 minute prior to obtaining)] 178/76 H Blood Pressure Mean 110 113 Blood Pressure Mean [Lying] 119 Blood Pressure Mean [Sitting (for 1 minute prior to obtaining)] 121 Blood Pressure Mean [Standing (for 1 minute prior to obtaining)] 110 Pulse Ox 94 Oxygen Delivery Method Room Air MDM MDM MDM Narrative Medical decision making narrative: Patient is a 88-year-old female who presented to the emerged part with chief complaint of syncopal episode with a head laceration. On the differential diagnose includes but not limited to ACS, vasovagal syncope, head laceration, intracranial hemorrhage, cervical spine fracture. Once workup is obtained reviewed she will be reevaluated. Patient tetanus shot will be updated here today as she is unsure when her last tetanus shot was. Patient's CBC was reviewed and showed no evidence leukocytosis white blood count normal at 9.6, hemoglobin 13.8, plate count of 195. Patient's PT was noted be 13.1 with an INR normal at 1. Patient sodium normal 130, potassium of 4.1, patient's anion gap is elevated to 16 CO2 low at 18.5, creatinine was noted be 1.61 she has underlying chronic kidney disease. Patient glucose was noted be 257. Patient will be given 10 units of subcutaneous insulin, AST and ALT were 16 and 9 respectively. Patient's beta-hydroxybutyrate normal at 0.3. Patient's urinalysis showed no evidence of ketones and thousand glucose and no evidence of infection. Patient's wrist x-ray reviewed by myself by radiology which showed no acute fracture or dislocation she does have osteopenia and other degenerative changes noted. Patient's x-ray of her pelvis reviewed by myself and by radiology which showed no fracture or dislocation there are prominent degenerative changes noted. Patient chest x-ray reviewed by myself by radiology and showed generalized osteopenia no pleural effusions or pneumothorax noted. Patient's CT head and brain without contrast showed a right frontal cephalhematoma no intracranial hemorrhage or large territorial infarct noted. Patient CT cervical spine reviewed showed no fracture subluxation or prevertebral soft tissue swelling. Patient's EKG was reviewed which showed sinus rhythm with a rate of 72 bpm with evidence of first-degree AV block with a QTc of 457. Patient had her head laceration repaired here in the emergency department and tolerated this well she will need her sutures out approximately 5 days. At this point in time given her syncopal episode her anion gap we will discuss case with hospitalist for admission. Patient's venous pH returned and showed a pH 7.31 with a bicarb of 23.9. Patient's orthostatic vital signs were positive she received IV fluid here in the emergency department Discussed case with hospitalist Dr. Briceno who accept patient for admission. Patient was notified is agreeable with this plan all questions and concerns answered. Lab Data Labs: Laboratory Results - last 24 hr 05/02/24 05/02/24 08:25 09:56 WBC 9.6 RBC 4.37 Hgb 13.8 Hct 42.6 MCV 97.5 MCH 31.6 MCHC 32.4 RDW Std Deviation 49.0 H RDW Coeff of Laquita 13.5 Plt Count 195 MPV 11.4 Immature Gran % (Auto) 0.400 Neut % (Auto) 69.6 Lymph % (Auto) 17.2 L Upton % (Auto) 7.5 Eos % (Auto) 4.6 Baso % (Auto) 0.7 Absolute Neuts (auto) 6.7 Absolute Lymphs (auto) 1.65 Nucleated RBC % 0 PT 13.1 INR 1.0 APTT 29.3 Sodium 138 Potassium 4.1 Chloride 104 Carbon Dioxide 18.5 L Anion Gap 16 H BUN 37 H Creatinine 1.61 H Estim Creat Clear Calc 24.69 L Est GFR (MDRD) Non-Af 31 L BUN/Creatinine Ratio 23.1 H Glucose 257 H Calcium 8.9 Total Bilirubin 0.28 Direct Bilirubin 0.13 AST 16 ALT 9 Alkaline Phosphatase 99 Total Protein 7.2 Albumin 4.0 Globulin 3.1 b-Hydroxybutyric mmol/L 0.3 Urine Color Yellow Urine Clarity Clear Urine pH 5.0 Ur Specific Jay 1.015 Urine Protein 30 H Urine Glucose (UA) 1000 H Urine Ketones Negative Urine Occult Blood 150 H Urine Nitrite Negative Urine Bilirubin Negative Urine Urobilinogen Normal Ur Leukocyte Esterase Negative Urine WBC 0-5 SEEN Ur Squamous Epith Cells 5-10 SEEN Urine Bacteria 0 SEEN Urine Mucus 0 SEEN ABG Data ABG results: ABG 05/02/24 11:38 Specimen Type JUAN ALBERTO Sample Site Not entered O2 % 21.0 VBG pH 7.32 VBG pO2 39 VBG HCO3 24 VBG Total CO2 25 VBG O2 Sat (Calc) 68 VBG Base Excess -2 L POC Mix VBG pCO2 Pt Tmp 46.5 O2 Delivery Device Not entered Radiography Diagnostic Testing: Clinical Impression(s) from Imaging Studies Brain CT 05/02/24 08:37 IMPRESSION: Right frontal cephalohematoma. No intracranial hemorrhage or large territorial infarct. Additional, chronic appearing, findings as described. Reading Location: [address] Cervical Spine CT 05/02/24 08:37 IMPRESSION: 1. No fracture, subluxation, or prevertebral soft tissue swelling is seen. 2. Stable to slightly progressed multilevel degenerative changes. Reading Location: [address] Chest X-Ray 05/02/24 08:55 IMPRESSION: Generalized osteopenia is seen. Prior sternotomy again noted. Thoracic neurostimulator again seen. Evaluation of the lungs is limited by hypoinflation, patient motion, and AP portable technique. Stable right hemidiaphragm elevation noted. No evidence of pulmonary edema. Mild areas of bibasilar atelectasis are seen. No pleural effusion or pneumothorax is noted. The cardiomediastinal silhouette is stable, without evidence of cardiomegaly. No fracture site is seen, although sensitivity is reduced by underlying osteopenia; If clinical concern persists, short-term follow-up imaging may be obtained to rule out a currently occult fracture. Reading Location: [address] Pelvis X-Ray 05/02/24 08:55 IMPRESSION: Multiple surgical clips are seen of the bilateral lower pelvis. Prominent arterial calcification is seen. Of the spine are noted. Partially visualized lower lumbar prior surgery is seen. Minimal left hip joint degenerative changes are seen, without associated joint narrowing. Mild sacroiliac joint degenerative changes are seen. No fracture or dislocation is seen on this solitary view. If clinical concern persists, short-term follow-up imaging may be obtained to rule out a currently occult fracture. Prominent degenerative changes Reading Location: [address] Wrist X-Ray 05/02/24 08:55 IMPRESSION: Generalized osteopenia is seen. Moderate to moderately severe degenerative changes are seen of the 1st carpal-metacarpal joint. Probable moderate degenerative changes of the partially visualized 1st interphalangeal joint, with mild degenerative changes of the 1st metacarpophalangeal joint. Mild degenerative changes seen at the 2nd carpal-metacarpal joint. Prominent soft tissue calcification, at least partially arterial, in the radial aspect of the visualized portion of the distal forearm. Moderate degenerative changes seen of the scaphoid trapezial trapezoidal joint, with partial joint narrowing. No significant degree of ulnar variance is noted. No acute fracture or dislocation is seen, although sensitivity is reduced by the underlying degree of osteopenia; If clinical concern persists, short-term follow-up imaging may be obtained to rule out a currently occult fracture. Reading Location: [address] Discharge Plan Triage Chief Complaint: Fall ED Provider: Ziggy Moreau Dx/Rx/DC Orders Clinical Impression: Diabetes, Syncope, Laceration of head, Orthostatic hypotension Prescriptions: No Action cholecalciferol (vitamin D3) [Vitamin D3] 25 mcg (1,000 unit) capsule 25 mcg PO DAILY levothyroxine 50 mcg tablet 50 mcg PO DAILY lidocaine [Lidocaine Pain Relief] 4 % adhesive patch,medicated 1 patch topical DAILY meclizine 12.5 mg tablet 12.5 mg PO Q4H PRN (Reason: dizziness) insulin lispro 100 unit/mL insulin pen 18 unit SUBCUT TID Patient Comments: at meals mineral oil [Fleet Mineral Oil] Enema 118 ml KS DAILY PRN (Reason: constipation) Rx Instructions: discard any unused portion magnesium hydroxide [Milk of Magnesia] 400 mg/5 mL suspension 30 ml PO DAILY PRN (Reason: constipation) bisacodyl 10 mg suppository 10 mg KS DAILY PRN (Reason: constipation) Biofreeze (menthol) 4 % gel 1 applic topical DAILY PRN (Reason: pain) Patient Comments: APPLY TO RIGHT SHOULDER insulin glargine [Lantus Solostar U-100 Insulin] 100 unit/mL (3 mL) insulin pen 28 unit subcut QHS memantine 5 mg tablet 10 mg PO BID loratadine 10 mg tablet 10 mg PO DAILY PRN (Reason: allergy symptoms) Ozempic 0.25 mg or 0.5 mg (2 mg/3 mL) pen injector 0.25 mg subcut QWEEK Qty: 3 3RF Patient Comments: TAKE ON MONDAYS Jardiance 25 mg tablet 25 mg PO QAM Qty: 30 5RF duloxetine 60 mg capsule,delayed release(DR/EC) 60 mg PO DAILY benzonatate 100 mg capsule 100 mg PO Q8H PRN (Reason: cough) dextran 70-hypromellose 0.1-0.3 % drops 1 drp ophthalmic (eye) Q8H PRN (Reason: dry eye(s)) Tylenol Extra Strength 500 mg powder in packet 1,000 mg PO TID PRN (Reason: fever or pain) albuterol sulfate 2.5 mg /3 mL (0.083 %) solution for nebulization 2.5 mg inhalation Q6H PRN (Reason: bronchospasm) isosorbide mononitrate 60 mg tablet extended release 24 hr 60 mg PO BID aspirin [Adult Aspirin Regimen] 81 mg tablet,delayed release (DR/EC) 81 mg PO DAILY gabapentin 300 mg capsule 300 mg PO TID Qty: 90 0RF ranolazine 500 mg tablet extended release 12 hr 500 mg PO Q12H gabapentin 100 mg capsule 100 mg PO QHS oxybutynin chloride 5 mg tablet extended release 24hr 5 mg PO DAILY tramadol 50 mg tablet 125 mg PO QHS guaifenesin 600 mg tablet extended release 12hr 600 mg PO Q12H PRN (Reason: congestion) insulin lispro [Humalog U-100 Insulin] 100 unit/mL solution See Protocol subcut .COMPLEX Protocol: 6. Sliding Scale Insulin Custom Condition: mg/dl range Dose/Route: Number of Units Condition: 200-249 Dose/Route: 2 UNITS Condition: 250-299 Dose/Route: 3 UNITS Condition: 300-349 Dose/Route: 4 UNITS Condition: 350-400 Dose/Route: 6 UNITS Protocol Text: Custom Sliding Scale Rx Instructions: subcutaneously PER SLIDING SCALE; hydralazine 100 mg tablet 50 mg PO TID furosemide [Lasix] 20 mg tablet 20 mg PO DAILY atorvastatin 40 mg tablet 40 mg PO QHS Qty: 90 3RF nitroglycerin 0.4 mg tablet, sublingual 0.4 mg SUBLINGUAL Q5M PRN (Reason: chest pain) Qty: 25 3RF Rx Instructions: do not exceed 3 doses per episode (DME) FreeStyle Jong 2 [place] Misc See Rx Instructions .Route Qty: 1 0RF Rx Instructions: As directed Primary Care Provider: Jose J Lezama Referrals: Jose J Lezama DO [Primary Care Provider] - Print Language: Luxembourgish Disposition Disposition: Acute Care Hospital [facility]
[2024-05-02 08:54] LABS: Partial Thromboplast Time 29.3 Seconds (24.1-36.2); Prothrombin Time (Protime)PT. 13.1 SECONDS (11.7-14.9)
--- NOTE | 2024-05-02 08:55 | RAD_ITS ---
PROCEDURE: PELVIS 1 OR 2 VIEWS 05/02/2024 REASON FOR EXAM: TRAUMA TECHNIQUE: Single-view AP pelvis. COMPARISON: None. RAD/Pelvis 1 or 2 Views IMPRESSION: Multiple surgical clips are seen of the bilateral lower pelvis. Prominent arterial calcification is seen. Of the spine are noted. Partially visualized lower lumbar prior surgery is seen. Minimal left hip joint degenerative changes are seen, without associated joint narrowing. Mild sacroiliac joint degenerative changes are seen. No fracture or dislocation is seen on this solitary view. If clinical concern persists, short-term follow-up imaging may be obtained to r ule out a currently occult fracture. Prominent degenerative changes Reading Location: [id number]
--- NOTE | 2024-05-02 08:55 | RAD_ITS ---
PROCEDURE: CHEST 1 VIEW (PORTABLE) 05/02/2024 REASON FOR EXAM: TRAUMA TECHNIQUE: Frontal view of the chest. COMPARISON: Chest x-ray of 02/18/2023. RAD/Chest 1 View (Portable) IMPRESSION: Generalized osteopenia is seen. Prior sternotomy again noted. Thoracic neurostimulator again seen. Evaluation of the lungs is limited by hypoinflation, patient motion, and AP por table technique. Stable right hemidiaphragm elevation noted. No evidence of pulmonary edema. Mild areas of bibasilar atelectasis are seen. No pleural effusion or pneumothorax is noted. The cardiomediastinal silhouette is stable, without evidence of cardiomegaly. No fracture site is seen, although sensitivity is reduced by underlying osteope kelli; If clinical concern persists, short-term follow-up imaging may be obtained to rule out a currently occult fracture. Reading Location: [id number]
--- NOTE | 2024-05-02 08:55 | RAD_ITS ---
PROCEDURE: WRIST MIN 3 VIEWS 05/02/2024 REASON FOR EXAM: FALL TECHNIQUE: Three-view left wrist COMPARISON: None. RAD/Wrist min 3 Views IMPRESSION: Generalized osteopenia is seen. Moderate to moderately severe degenerative changes are seen of the 1st carpal-m etacarpal joint. Probable moderate degenerative changes of the partially visualized 1st interphalangeal joint, with mild degene rative changes of the 1st metacarpophalangeal joint. Mild degenerative changes seen at the 2nd carpal-metacarpal joint. Prominent soft tissue calcification, at least partially arterial, in the radial aspect of the visualized portion of the distal forearm. Moderate degenerative changes seen of the scaphoid trapezial trapezoidal joint, with partial joint narrowing. No significant degree of ulnar variance is noted. No acute fracture or dislocation is seen, although sensitivity is reduced by th e underlying degree of osteopenia; If clinical concern persists, short-term follow-up imaging may be obtained to rule out a cu rrently occult fracture. Reading Location: [id number]
[2024-05-02 09:33] LABS: AST(SGOT) 16 U/L (<=31); Alanine Aminotransfer ALT/SGPT 9 U/L (<=34); Alkaline Phosphatase 99 U/L (35-104); Anion Gap 16 (5-15); BUN 37 mg/dL (4-19); BUN/Creat Ratio 23.1 RATIO (10-20); Bilirubin, Direct 0.13 mg/dL (0.00-0.30); Calcium,Total 8.9 mg/dL (7.6-11.0); Carbon Dioxide 18.5 mmol/L (21.0-32.0); Chloride 104 mmol/L (98-108); Creatinine, Serum 1.61 mg/dL (0.70-1.20); EST Glomerular Filtration Rate 31 (>60); Estimated Creatinine Clearance 24.69 ml/min (50-250); Globulin 3.1 g/dL (2.2-4.2); Glucose 257 mg/dL (70-99); Potassium 4.1 mmol/L (3.3-5.1); Protein, Total 7.2 g/dL (5.9-8.4); Sodium Level 138 mmol/L (133-145); Total Bilirubin 0.28 mg/dL (0.00-1.30)
[2024-05-02 10:01] LABS: Bacteria 0 SEEN /hpf (None Seen); Mucous, Urine 0 SEEN /hpf (<or=2+)
[2024-05-02 10:06] LABS: Color, Urine Yellow (Yellow); Glucose, Dipstick 1000 mg/dl (Normal); Ketone-Dipstick Negative (Negative); Leukocyte Esterase-Dipstick Negative /ul (Negative); Nitrite-Dipstick Negative (Negative); Occult Blood-Urine 150 /ul (Negative); Protein-Dipstick 30 mg/dl (Negative); Specific Gravity, Urine 1.015 (1.002-1.030); Urine Bilirubin Dipstick Negative (Negative); Urine Clarity Clear (Clear); Urine Urobilinogen Normal (Normal)
[2024-05-02 10:15] LABS: Squamous Epithelial Cells - UA 5-10 SEEN /hpf (5-10); White Blood Cells 0-5 SEEN /hpf (0-5)
[2024-05-02 11:32] LABS: BETA-HYDROXYBUTYRATE 0.3 mmol/L (0.0-0.3)
[2024-05-02 11:41] LABS: Blood Gas Specimen Type VEN; O2 Delivery Device Not entered; SITE Not entered; VBG BASE EXCESS -2 mmol/L (-1.0-3.5); VBG Bicarbonate 24 mmol/L (22-26); VBG PO2 39 mmHg (25-40); VBG SO2 68 % (50-70); VBG TCO2 25 mmol/L (23-33); VBG pCO2 46.5 mmHg (41-51); VBG pH 7.32 (7.32-7.42)
[2024-05-02] MEDS: Acetaminophen 500 MG Tablet 1000 MG PO ×2 (12:06→21:02)
[2024-05-02] MEDS: Lidocaine 1% (20 ml mdv) 20 ML Vial 10 ML INFILT (12:06)
[2024-05-02] MEDS: Insulin Lispro 100 UNIT/ML INSULN.PEN 10 UNIT SC (12:09)
[2024-05-02 12:28] LABS: Bedside Glucose 188 mg/dL (74-106)
--- NOTE | 2024-05-02 12:45 | CM.ED ---
Social Work: Date of referral: 05/02/2024 Referred by: Hospitalist Reason for referral: Discharge Planning Social was requested to find out if patient will require any pre-certifications (PC's) or pre-authorizations (PA's) if patient is admitted overnight. Patient presented to the ED from [facility]. (end: 12:25) Lean Manager Nancy, from [facility] returned call to ED bilingual social worker. Nancy confirmed that due to patient having Medicaid, no PA's or PC's will be needed for patient to be discharged back to [facility] when medically ready. Lean Manager updated charge nurse who stated she will notify the hospitalist. Stephanie Fernandez, SUGAR GRINDER, TRAINING AND DEVELOPMENT MANAGER
[2024-05-02 14:01] LABS: Red Blood Cells-Urine 0 SEEN /hpf (0-5)
--- NOTE | 2024-05-02 14:54 | PCM.HP.STD ---
HPI - General General Date of Admission: 05/02/24 HPI Narrative GLORIA PAUL, is a 88 F who presents to the hospital after mechanical fall at the long term. She says that she frequently gets dizzy several times a week and is usually able to wait for it to go away prior to moving, however today she got up and was sitting in the chair and got dizzy and lightheaded and then it went away so she stood up and in the process of standing up she lost her balance because of the lightheadedness and dizziness and fell forward and hit her head. She does not think she blacked out however a full set of CT scans and x-rays show that there has been no fractures, she does have a right forehead laceration that was repaired in the ER as well as ecchymosis over her right eye. Vision in her eye is not diminished but she does have difficulty due to swelling and opening her right eye. She does take oxybutynin and memantine and was found to be orthostatic in the ER. 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 Wears hearing aid Post-menopausal Thyroid disease Insulin dependent diabetes mellitus Ambulates with cane Arthritis History of renal disease High cholesterol Easy bruising Back pain Migraine headache Difficulty swallowing Dietary restriction Shortness of breath on exertion History of pain when walking History of echocardiogram History of stress test Hypertension Cardiology follow-up encounter History of CHF (congestive heart failure) History of atrial fibrillation Osteoarthritis of left knee CAD (coronary artery disease) PAF (paroxysmal atrial fibrillation) Acute on chronic heart failure with preserved ejection fraction (HFpEF) New onset atrial fibrillation Congestive heart failure Broken ribs Lower GI bleeding Intertrigo Diabetes Non-smoker CPAP (continuous positive airway pressure) dependence Coronary artery disease Stroke/cerebrovascular accident (HFpEF) heart failure with preserved ejection fraction Microalbuminuria Pure hypercholesterolemia Essential hypertension Hypothyroidism GERD (gastroesophageal reflux disease) Fibromyalgia Atherosclerotic heart disease of [place] coronary artery without angina pectoris Presence of stent in coronary artery (~12/11/18) Carotid stenosis, left Debility Fatigue Angina pectoris Obstructive sleep apnea Lumbosacral radiculopathy CAD (coronary artery disease) Renal cancer History of stroke Diabetes mellitus, type 2 Home Medications ?Medication ?Instructions ?Recorded ?Last Taken ?Type levothyroxine 50 mcg tablet 50 mcg PO DAILY thyroid 05/10/20 05/02/24 History cholecalciferol (vitamin D3) 25 25 mcg PO DAILY vitamin 06/20/21 05/01/24 History mcg (1,000 unit) capsule (Vitamin D3) atorvastatin 40 mg tablet 40 mg PO QHS cholesterol #90 tabs 08/20/22 05/01/24 Rx nitroglycerin 0.4 mg sublingual 0.4 mg sublingual Q5M PRN chest 08/20/22 Unknown Rx tablet pain #25 tabs flash glucose scanning reader #1 ea 11/08/22 Unknown Rx (FreeStyle Jong 2 [place]) ranolazine 500 mg tablet,extended 500 mg PO Q12H 12/05/22 05/01/24 History release,12 hr aspirin 81 mg tablet,delayed 81 mg PO DAILY 02/03/23 02/19/23 History release (Adult Aspirin Regimen) gabapentin 300 mg capsule 300 mg PO TID NEUROPATHY #90 caps 02/07/23 05/02/24 Rx bisacodyl 10 mg rectal suppository 10 mg [place] DAILY PRN constipation 06/12/23 Unknown History insulin lispro 100 unit/mL 18 unit subcut TID 06/12/23 05/01/24 History subcutaneous pen lidocaine 4 % topical patch 1 patch topical DAILY pain 06/12/23 05/01/24 History (Lidocaine Pain Relief) magnesium hydroxide 400 mg/5 mL 30 ml PO DAILY PRN constipation 06/12/23 Unknown History oral suspension (Milk of Magnesia) meclizine 12.5 mg tablet 12.5 mg PO Q4H PRN dizziness 06/12/23 04/30/24 History menthol 4 % topical gel (Biofreeze 1 applic topical DAILY PRN pain 06/12/23 Unknown History (menthol)) mineral oil (Fleet Mineral Oil 118 ml [place] DAILY PRN constipation 06/12/23 Unknown History enema) insulin glargine 100 unit/mL (3 28 unit subcut QHS 07/17/23 05/01/24 History mL) subcutaneous pen (Lantus Solostar U-100 Insulin) loratadine 10 mg tablet 10 mg PO DAILY PRN allergy symptoms 09/15/23 Unknown History memantine 5 mg tablet 10 mg PO BID DEMENTIA 09/15/23 05/01/24 History duloxetine 60 mg capsule,delayed 60 mg PO DAILY 12/30/23 05/01/24 History release albuterol sulfate 2.5 mg/3 mL 2.5 mg inhalation Q6H PRN 02/13/24 Unknown History (0.083 %) solution for nebulization bronchospasm benzonatate 100 mg capsule 100 mg PO Q8H PRN cough 02/13/24 Unknown History dextran 70-hypromellose 0.1 %-0.3 1 drp ophthalmic (eye) Q8H PRN dry 02/13/24 Unknown History % eye drops eye(s) isosorbide mononitrate 60 mg 60 mg PO BID HTN 03/11/24 05/01/24 History tablet,extended release 24 hr semaglutide 0.25 mg or 0.5 mg (2 0.25 mg (0.368 mL) subcut QWEEK #3 04/01/24 04/26/24 Rx mg/3 mL) subcutaneous pen injector mL (Ozempic) empagliflozin 25 mg tablet 25 mg PO QAM DIABETES #30 tabs 04/15/24 05/01/24 Rx (Jardiance) acetaminophen 500 mg capsule 1,000 mg PO Q8 pain 05/02/24 Unknown History furosemide 20 mg tablet (Lasix) 20 mg PO DAILY edema, SOB 05/02/24 05/01/24 History gabapentin 100 mg capsule 100 mg PO QHS 05/02/24 05/01/24 History guaifenesin 600 mg tablet, 600 mg PO Q12H PRN congestion 05/02/24 Unknown History extended release 12 hr hydralazine 100 mg tablet 50 mg PO TID HTN 05/02/24 04/29/24 History insulin lispro 100 unit/mL See Protocol subcut .COMPLEX 05/02/24 05/01/24 History subcutaneous solution (Humalog U-100 Insulin) oxybutynin chloride 5 mg 5 mg PO DAILY BLADDER SPASMS 05/02/24 05/01/24 History tablet,extended release 24 hr trazodone 50 mg tablet 125 mg PO .HS insomnia 05/02/24 Unknown History Allergy/AdvReac Type Severity Reaction Status Date / Time morphine Allergy Intermediate Low blood Verified 04/01/24 15:04 pressure latex Allergy Rash Verified 04/01/24 15:04 adhesive tape AdvReac Rash Verified 04/01/24 15:04 ticagrelor (From Brilinta) AdvReac Shortness Verified 04/01/24 15:04 of breath Family History Father Heart disease Mother Breast cancer Diabetes Heart disease Surgical History History of coronary artery stent placement Hx of CABG History of coronary artery stent placement History of arthroscopic knee surgery History of cardiac catheterization Hx of hand surgery H/O hemorrhoidectomy History of appendectomy History of cholecystectomy Hx of CABG History of right and left heart catheterization (LHC) (~08/10/19) History of coronary artery bypass graft x 3 (~04/08/16) Presence of coronary angioplasty implant and graft (~12/11/18) History of back surgery History of right inguinal hernia repair History of knee replacement procedure of right knee History of hysterectomy Postlaminectomy syndrome of lumbar region Social History household members: spouse housing: house Smoking Status: Never smoker alcohol intake: never substance use type: does not use caffeine: No ROS Constitutional Constitutional: Denies chills, fatigue, fever(s) or malaise Eyes Eyes: Denies blurry vision ENT HEENT: Denies headache(s) or nasal discharge Cardiovascular Cardiovascular: Reports lightheadedness; Denies chest pain, dyspnea on exertion or syncope Respiratory/Chest Respiratory/Chest: Denies cough, shortness of breath at rest or shortness of breath with exertion Gastrointestinal Gastrointestinal: Denies constipation, diarrhea, nausea or vomiting Genitourinary Genitourinary: Denies dysuria Integumentary Integumentary: Reports wounds Neurologic Neurologic: Denies focal weakness, numbness or tremor(s) Psychiatric Psychiatric: Denies anxiety or depression Vital Signs Vital Signs Vital Signs: 05/02/24 08:17 05/02/24 08:26 05/02/24 09:17 Temperature 98.3 F Temperature Source Oral Pulse Rate 73 74 Pulse Rate [Lying] Pulse Rate [Sitting (for 1 minute prior to obtaining)] Pulse Rate [Standing (for 1 minute prior to obtaining)] Respiratory Rate 20 H 18 Respiratory Effort Normal Respiratory Depth Normal Respiratory Pattern Normal Blood Pressure 190/75 H 187/79 H Blood Pressure [Lying] Blood Pressure [Sitting (for 1 minute prior to obtaining)] Blood Pressure [Standing (for 1 minute prior to obtaining)] Blood Pressure Mean 113 115 Blood Pressure Mean [Lying] Blood Pressure Mean [Sitting (for 1 minute prior to obtaining)] Blood Pressure Mean [Standing (for 1 minute prior to obtaining)] Blood Pressure Source Blood Pressure Position Blood Pressure Location Pulse Ox 92 95 Oxygen Delivery Method Room Air Room Air 05/02/24 09:52 05/02/24 10:00 05/02/24 11:19 Temperature Temperature Source Pulse Rate 74 Pulse Rate [Lying] 74 Pulse Rate [Sitting (for 1 minute prior to obtaining)] 75 Pulse Rate [Standing (for 1 minute prior to obtaining)] 75 Respiratory Rate 18 Respiratory Effort Respiratory Depth Respiratory Pattern Blood Pressure 178/76 H 165/88 H Blood Pressure [Lying] 199/80 H Blood Pressure [Sitting (for 1 minute prior to obtaining)] 194/85 H Blood Pressure [Standing (for 1 minute prior to obtaining)] 178/76 H Blood Pressure Mean 110 113 Blood Pressure Mean [Lying] 119 Blood Pressure Mean [Sitting (for 1 minute prior to obtaining)] 121 Blood Pressure Mean [Standing (for 1 minute prior to obtaining)] 110 Blood Pressure Source Blood Pressure Position Blood Pressure Location Pulse Ox 94 Oxygen Delivery Method Room Air 05/02/24 12:00 05/02/24 12:57 05/02/24 13:50 Temperature 98.4 F 98.1 F Temperature Source Temporal Pulse Rate 72 71 77 Pulse Rate [Lying] Pulse Rate [Sitting (for 1 minute prior to obtaining)] Pulse Rate [Standing (for 1 minute prior to obtaining)] Respiratory Rate 22 H 16 18 Respiratory Effort Respiratory Depth Respiratory Pattern Blood Pressure 180/72 H 150/64 H 189/82 H Blood Pressure [Lying] Blood Pressure [Sitting (for 1 minute prior to obtaining)] Blood Pressure [Standing (for 1 minute prior to obtaining)] Blood Pressure Mean 108 92 117 Blood Pressure Mean [Lying] Blood Pressure Mean [Sitting (for 1 minute prior to obtaining)] Blood Pressure Mean [Standing (for 1 minute prior to obtaining)] Blood Pressure Source Monitor Blood Pressure Position Semi-Fowlers Blood Pressure Location Left Arm Pulse Ox 100 92 Oxygen Delivery Method Room Air 05/02/24 13:56 Temperature Temperature Source Pulse Rate Pulse Rate [Lying] Pulse Rate [Sitting (for 1 minute prior to obtaining)] Pulse Rate [Standing (for 1 minute prior to obtaining)] Respiratory Rate Respiratory Effort Normal Non-Labored Respiratory Depth Normal Respiratory Pattern Normal Blood Pressure Blood Pressure [Lying] Blood Pressure [Sitting (for 1 minute prior to obtaining)] Blood Pressure [Standing (for 1 minute prior to obtaining)] Blood Pressure Mean Blood Pressure Mean [Lying] Blood Pressure Mean [Sitting (for 1 minute prior to obtaining)] Blood Pressure Mean [Standing (for 1 minute prior to obtaining)] Blood Pressure Source Blood Pressure Position Blood Pressure Location Pulse Ox Oxygen Delivery Method Room Air Weight Weight: 163 lb 9.328 oz Body Mass Index (BMI) 29.0 Physical Exam Narrative General: Alert, Oriented x3, Cooperative, No apparent distress HEENT: Atraumatic, PERRLA, EOMI, Normocephalic, right eye lid ecchymosis and swelling Oral: Moist Mucosa Neck: Supple, No JVD Lungs: Diminished, Normal air movement, No rhonchi, No wheeze, No rales Cardiovascular: Regular rate, Regular Rhythm, Normal S1, Normal S2, No murmurs Abdomen: Soft, Non Tender, Non-Distended, No Hepato-splenomegaly Extremities: Trace edema, Capillary Refill Less than 3 Seconds Skin: No rashes, No breakdown, right forehead laceration Musculoskeletal: No Tenderness to Palpation of Joints or Extremities Neurological: No focal neurological deficits, moves all extremities Psych/Mental Status: Normal Affect, Appropriate Results Lab / Micro Data 05/02/24 08:25 05/02/24 08:25 Labs: Laboratory Results - last 24 hr 05/02/24 08:25: WBC 9.6, RBC 4.37, Hgb 13.8, Hct 42.6, MCV 97.5, MCH 31.6, MCHC 32.4, RDW Std Deviation 49.0 H, RDW Coeff of [place]qu[place] 13.5, Plt Count 195, MPV 11.4, Immature Gran % (Auto) 0.400, Neut % (Auto) 69.6, Lymph % (Auto) 17.2 L, [place] % (Auto) 7.5, Eos % (Auto) 4.6, Baso % (Auto) 0.7, Absolute Neuts (auto) 6.7, Absolute Lymphs (auto) 1.65, Nucleated RBC % 0, PT 13.1, INR 1.0, APTT 29.3, Sodium 138, Potassium 4.1, Chloride 104, Carbon Dioxide 18.5 L, Anion Gap 16 H, BUN 37 H, Creatinine 1.61 H, Estim Creat Clear Calc 24.69 L, Est GFR (MDRD) Non-Af 31 L, BUN/Creatinine Ratio 23.1 H, Glucose 257 H, Calcium 8.9, Total Bilirubin 0.28, Direct Bilirubin 0.13, AST 16, ALT 9, Alkaline Phosphatase 99, Total Protein 7.2, Albumin 4.0, Globulin 3.1, b-Hydroxybutyric mmol/L 0.3 05/02/24 09:56: Urine Color Yellow, Urine Clarity Clear, Urine pH 5.0, Ur Specific [place] 1.015, Urine Protein 30 H, Urine Glucose (UA) 1000 H, Urine Ketones Negative, Urine Occult Blood 150 H, Urine Nitrite Negative, Urine Bilirubin Negative, Urine Urobilinogen Normal, Ur Leukocyte Esterase Negative, Urine RBC 0 SEEN, Urine WBC 0-5 SEEN, Ur Squamous Epith Cells 5-10 SEEN, Urine Bacteria 0 SEEN, Urine Mucus 0 SEEN 05/02/24 12:08: POC Glucose 188 H ABG Data ABG results: ABG 05/02/24 11:38 Specimen Type JUAN ALBERTO Sample Site Not entered O2 % 21.0 VBG pH 7.32 VBG pO2 39 VBG HCO3 24 VBG Total CO2 25 VBG O2 Sat (Calc) 68 VBG Base Excess -2 L POC Mix VBG pCO2 Pt Tmp 46.5 O2 Delivery Device Not entered Imaging Radiology Impression Brain CT 05/02/24 08:37 IMPRESSION: Right frontal cephalohematoma. No intracranial hemorrhage or large territorial infarct. Additional, chronic appearing, findings as described. Reading Location: [id number] Cervical Spine CT 05/02/24 08:37 IMPRESSION: 1. No fracture, subluxation, or prevertebral soft tissue swelling is seen. 2. Stable to slightly progressed multilevel degenerative changes. Reading Location: [address] Chest X-Ray 05/02/24 08:55 IMPRESSION: Generalized osteopenia is seen. Prior sternotomy again noted. Thoracic neurostimulator again seen. Evaluation of the lungs is limited by hypoinflation, patient motion, and AP portable technique. Stable right hemidiaphragm elevation noted. No evidence of pulmonary edema. Mild areas of bibasilar atelectasis are seen. No pleural effusion or pneumothorax is noted. The cardiomediastinal silhouette is stable, without evidence of cardiomegaly. No fracture site is seen, although sensitivity is reduced by underlying osteopenia; If clinical concern persists, short-term follow-up imaging may be obtained to rule out a currently occult fracture. Reading Location: [address] Pelvis X-Ray 05/02/24 08:55 IMPRESSION: Multiple surgical clips are seen of the bilateral lower pelvis. Prominent arterial calcification is seen. Of the spine are noted. Partially visualized lower lumbar prior surgery is seen. Minimal left hip joint degenerative changes are seen, without associated joint narrowing. Mild sacroiliac joint degenerative changes are seen. No fracture or dislocation is seen on this solitary view. If clinical concern persists, short-term follow-up imaging may be obtained to rule out a currently occult fracture. Prominent degenerative changes Reading Location: [address] Wrist X-Ray 05/02/24 08:55 IMPRESSION: Generalized osteopenia is seen. Moderate to moderately severe degenerative changes are seen of the 1st carpal-metacarpal joint. Probable moderate degenerative changes of the partially visualized 1st interphalangeal joint, with mild degenerative changes of the 1st metacarpophalangeal joint. Mild degenerative changes seen at the 2nd carpal-metacarpal joint. Prominent soft tissue calcification, at least partially arterial, in the radial aspect of the visualized portion of the distal forearm. Moderate degenerative changes seen of the scaphoid trapezial trapezoidal joint, with partial joint narrowing. No significant degree of ulnar variance is noted. No acute fracture or dislocation is seen, although sensitivity is reduced by the underlying degree of osteopenia; If clinical concern persists, short-term follow-up imaging may be obtained to rule out a currently occult fracture. Reading Location: [address] Assessment & Plan Assessment/Plan (1) Orthostatic hypotension: (2) Laceration of head: (3) Syncope: PLAN: Plan 1. Orthostatic hypotension leading to fall with a forehead laceration and ecchymosis over the right eyelid ? She frequently gets dizzy and does appear to be orthostatic in origin ? She is severely hypertensive at baseline is on multiple medications ? Systolic blood pressure went from 199 laying down to 178 on standing consistent with orthostatic hypotension ? She is on meclizine as an outpatient ? Given the intensity of her blood pressure I do not think that I can discontinue any of her home blood pressure medications ? She is on memantine and oxybutynin both of which can cause lightheadedness and dizziness I discussed with family that this is to be discontinued and evaluated at the long term 2. Essential HTN/HLD/CAD status post CABG and stent/paroxysmal A-fib ? No anticoagulation given that she is a fall risk ? Will hold her aspirin for 24 hours ? Can resume her home blood pressure medications and her home cholesterol ? Will monitor make adjustments as necessary ? Hold her Lasix given the need for some gentle IV fluids for her orthostatic hypotension 3. DM2 ? Continue with Jardiance ? Hold Ozempic ? Continue with insulin, Accu-Cheks ACHS ? Will monitor make adjustments as necessary 5. Hypothyroidism ? Stable ? Continue with Synthroid 6. Anxiety/depression/dementia ? Hold memantine ? Continue with her other home medications 7. Urinary incontinence ? Will hold oxybutynin given her age and her frequent falls DVT: SCDs 75 minutes was spent on direct patient care, including documentation as well as chart review and collaboration with colleagues Charges/Coding Visit Charges Inpatient E&M: 42923 Init Hosp L3
[2024-05-02] MEDS: hydrALAZINE 25 MG Tablet 50 MG PO ×2 (15:24→21:02)
[2024-05-02 17:01] LABS: Bedside Glucose 134 mg/dL (74-106)
[2024-05-02] MEDS: Insulin Lispro 100 UNIT/ML INSULN.PEN 18 UNIT SC (17:13)
[2024-05-02] MEDS: Gabapentin 300 MG Capsule PO (17:14)
[2024-05-02] MEDS: Meclizine 12.5 MG Tablet PO (21:02)
[2024-05-02] MEDS: traZODone 50 MG Tablet 125 MG PO (21:02)
[2024-05-02] MEDS: Atorvastatin Calcium 40 MG Tablet PO (21:03)
[2024-05-02] MEDS: Isosorbide Mononitrate 60 MG Tablet PO (21:03)
[2024-05-02] MEDS: Memantine Hydrochloride 10 MG Tablet PO (21:03)
[2024-05-02] MEDS: Gabapentin 100 MG Capsule PO (21:03)
[2024-05-02] MEDS: Ranolazine 500 MG Tablet PO (21:03)
[2024-05-02 21:44] LABS: Bedside Glucose 113 mg/dL (74-106)
[2024-05-03] VITALS: O2SAT 88
[2024-05-03 03:00] VITALS: BP 155/66; PULSE 64; RESP 18; TEMP 36.8; O2SAT 94
[2024-05-03] MEDS: Levothyroxine 50 MCG Tablet PO (05:38)
[2024-05-03 05:39] VITALS: BP 146/65; PULSE 71
[2024-05-03] MEDS: hydrALAZINE 25 MG Tablet 50 MG PO (05:39)
[2024-05-03 06:33] LABS: Absolute Lymphocyte Count 2.18 X10^3/uL (0.83-4.51); Absolute Neutrophil Count 4.4 X10^3/uL (2.0-7.7); Basophil# 0.09 X10^3/uL; Basophil% 1.1 % (0-1); Eosinophil# 0.55 X10^3/uL; Eosinophils% 6.8 % (0-5); Hematocrit 39.6 % (37-47); Hemoglobin 12.9 g/dL (12.0-15.0); Lymphocyte # 2.18 X10^3/ul (0.83-4.51); Lymphocyte % 26.9 % (19-41); Mean Corp Hgb Conc 32.6 g/dL (32-36); Mean Corpuscular Hgb 31.9 pg (27.0-32.0); Mean Corpuscular Volume 97.8 fL (81-99); Mean Platelet Vol. 11.3 fl (6.2-12.0); Monocyte# 0.85 X10^3/uL; Monocyte% 10.5 % (0-10); NRBC Flagged by Analyzer 0 % (0-5); Neutrophil % 54.3 % (47-70); Platelet Count 185 K/mm3 (150-450); RBC Distribution Width CV 13.4 % (11.6-14.6); RBC Distribution Width SD 48.4 fl (35.1-43.9); Red Blood Count 4.05 M/mm3 (4.2-5.4); White Blood Count 8.1 K/mm3 (4.4-11.0)
[2024-05-03 06:57] LABS: Anion Gap 12 (5-15); BUN 32 mg/dL (4-19); BUN/Creat Ratio 23.6 RATIO (10-20); Calcium,Total 9.1 mg/dL (7.6-11.0); Carbon Dioxide 20.7 mmol/L (21.0-32.0); Chloride 109 mmol/L (98-108); Creatinine, Serum 1.35 mg/dL (0.70-1.20); EST Glomerular Filtration Rate 38 (>60); Estimated Creatinine Clearance 28.86 ml/min (50-250); Glucose 173 mg/dL (70-99); Potassium 4.1 mmol/L (3.3-5.1); Sodium Level 141 mmol/L (133-145)
--- NOTE | 2024-05-03 07:35 | TREXTCAR_ITS ---
Diet Diet Order/Speech Therapy: 05/02/24 13:21 Diet: Cardiac - Heart Healthy Food consistency:: Regular Liquid Consistency:: Regular/Thin Routine Orders/Code Status Routine Lab Work: CBC and BMP Code Status: DNRCC-A DC O2, CPAP, BIPAP needs Home O2 Discharge instructions: No Wound(s) Right eyebrow: Wound Type: Laceration Left Forearm: Wound Type: Skin Tear Therapies Physical Therapy: Eval and Treat Occupational Therapy: Eval and Treat Problem/Diagnosis (1) Orthostatic hypotension: Status: Acute Code(s): I95.1 - Orthostatic hypotension (2) Laceration of head: Status: Acute Code(s): S01.91XA - Laceration without foreign body of unspecified part of head, initial encounter (3) Syncope: Status: Acute Code(s): R55 - Syncope and collapse Plan 1. Orthostatic hypotension leading to fall with a forehead laceration and ecchymosis over the right eyelid ? She frequently gets dizzy and does appear to be orthostatic in origin ? She is severely hypertensive at baseline is on multiple medications ? Systolic blood pressure went from 199 laying down to 178 on standing consistent with orthostatic hypotension ? She is on meclizine as an outpatient ? Given the intensity of her blood pressure I do not think that I can discontinue any of her home blood pressure medications ? She is on memantine and oxybutynin both of which can cause lightheadedness and dizziness I discussed with family that this is to be discontinued and evaluated at the longterm 2. Essential HTN/HLD/CAD status post CABG and stent/paroxysmal A-fib ? No anticoagulation given that she is a fall risk ? Will hold her aspirin for 24 hours ? Can resume her home blood pressure medications and her home cholesterol ? Will monitor make adjustments as necessary ? Hold her Lasix given the need for some gentle IV fluids for her orthostatic hypotension 3. DM2 ? Continue with Jardiance ? Hold Ozempic ? Continue with insulin, Accu-Cheks ACHS ? Will monitor make adjustments as necessary 5. Hypothyroidism ? Stable ? Continue with Synthroid 6. Anxiety/depression/dementia ? Hold memantine ? Continue with her other home medications 7. Urinary incontinence ? Will hold oxybutynin given her age and her frequent falls DVT: SCDs 75 minutes was spent on direct patient care, including documentation as well as chart review and collaboration with colleagues Allergies/Procedures Done in Hospital Allergies morphine Allergy (Intermediate, Verified 04/01/24 15:04) Low blood pressure latex Allergy (Verified 04/01/24 15:04) Rash adhesive tape Adverse Reaction (Verified 04/01/24 15:04) Rash ticagrelor (From Brilinta) Adverse Reaction (Verified 04/01/24 15:04) Shortness of breath Procedures: None Type of Care/Length of Stay Estimated LOS: Convalescent Care Less Than 30 days Type of Care Needed: Skilled Rehab Potential: Fair Prognosis: Fair Additional Orders/Day of Discharge Day of Discharge: 05/03/24 Discharge Plan Admission Admit Date/Time: 05/02/24 11:58 Attending Provider: Bernardino Briceno Primary Care Provider: Jose J Lezama Discharge Orders/Prescriptions Prescriptions: Continued cholecalciferol (vitamin D3) [Vitamin D3] 25 mcg (1,000 unit) capsule 25 mcg PO DAILY levothyroxine 50 mcg tablet 50 mcg PO DAILY lidocaine [Lidocaine Pain Relief] 4 % adhesive patch,medicated 1 patch topical DAILY meclizine 12.5 mg tablet 12.5 mg PO Q4H PRN (Reason: dizziness) insulin lispro 100 unit/mL insulin pen 18 unit SUBCUT TID Patient Comments: at meals mineral oil [Fleet Mineral Oil] Enema 118 ml PA DAILY PRN (Reason: constipation) Rx Instructions: discard any unused portion magnesium hydroxide [Milk of Magnesia] 400 mg/5 mL suspension 30 ml PO DAILY PRN (Reason: constipation) bisacodyl 10 mg suppository 10 mg PA DAILY PRN (Reason: constipation) Biofreeze (menthol) 4 % gel 1 applic topical DAILY PRN (Reason: pain) Patient Comments: APPLY TO RIGHT SHOULDER insulin glargine [Lantus Solostar U-100 Insulin] 100 unit/mL (3 mL) insulin pen 28 unit subcut QHS loratadine 10 mg tablet 10 mg PO DAILY PRN (Reason: allergy symptoms) Ozempic 0.25 mg or 0.5 mg (2 mg/3 mL) pen injector 0.25 mg subcut QWEEK Qty: 3 3RF Patient Comments: TAKE ON MONDAYS Jardiance 25 mg tablet 25 mg PO QAM Qty: 30 5RF duloxetine 60 mg capsule,delayed release(DR/EC) 60 mg PO DAILY benzonatate 100 mg capsule 100 mg PO Q8H PRN (Reason: cough) dextran 70-hypromellose 0.1-0.3 % drops 1 drp ophthalmic (eye) Q8H PRN (Reason: dry eye(s)) albuterol sulfate 2.5 mg /3 mL (0.083 %) solution for nebulization 2.5 mg inhalation Q6H PRN (Reason: bronchospasm) isosorbide mononitrate 60 mg tablet extended release 24 hr 60 mg PO BID aspirin [Adult Aspirin Regimen] 81 mg tablet,delayed release (DR/EC) 81 mg PO DAILY gabapentin 300 mg capsule 300 mg PO TID Qty: 90 0RF ranolazine 500 mg tablet extended release 12 hr 500 mg PO Q12H gabapentin 100 mg capsule 100 mg PO QHS guaifenesin 600 mg tablet extended release 12hr 600 mg PO Q12H PRN (Reason: congestion) insulin lispro [Humalog U-100 Insulin] 100 unit/mL solution See Protocol subcut .COMPLEX Protocol: 6. Sliding Scale Insulin Custom Condition: mg/dl range Dose/Route: Number of Units Condition: 200-249 Dose/Route: 2 UNITS Condition: 250-299 Dose/Route: 3 UNITS Condition: 300-349 Dose/Route: 4 UNITS Condition: 350-400 Dose/Route: 6 UNITS Protocol Text: Custom Sliding Scale Rx Instructions: subcutaneously PER SLIDING SCALE; hydralazine 100 mg tablet 50 mg PO TID furosemide [Lasix] 20 mg tablet 20 mg PO DAILY trazodone 50 mg tablet 125 mg PO .HS acetaminophen 500 mg capsule 1,000 mg PO Q8 atorvastatin 40 mg tablet 40 mg PO QHS Qty: 90 3RF nitroglycerin 0.4 mg tablet, sublingual 0.4 mg SUBLINGUAL Q5M PRN (Reason: chest pain) Qty: 25 3RF Rx Instructions: do not exceed 3 doses per episode (DME) FreeStyle Jong 2 [facility] [place] Instructions .Route Qty: 1 0RF Rx Instructions: As directed Held memantine 5 mg tablet 10 mg PO BID Hold Instructions: Resume on 05/12/24. oxybutynin chloride 5 mg tablet extended release 24hr 5 mg PO DAILY Hold Instructions: Resume on 05/12/24. Referrals / Follow Up: Jose J Lezama, [Primary Care Provider] - Disposition Disposition (needs filled in before D/C Order can be placed): Nursing Home Facility
[2024-05-03 08:04] VITALS: BP 155/66; PULSE 64; RESP 18; TEMP 36.8; O2SAT 95
[2024-05-03] MEDS: Lidocaine 5% Patch 1 PATCH TOPICAL (08:39)
--- NOTE | 2024-05-03 08:41 | CASEMGMT ---
Discharge Planning Updates sent to [facility]. Clara Grover DC Planning Asst.
[2024-05-03] MEDS: Memantine Hydrochloride 10 MG Tablet PO (08:43)
[2024-05-03] MEDS: DULoxetine Hcl 60 MG Capsule PO (08:43)
[2024-05-03] MEDS: Isosorbide Mononitrate 60 MG Tablet PO (08:43)
[2024-05-03] MEDS: Gabapentin 300 MG Capsule PO (08:43)
[2024-05-03] MEDS: Empagliflozin 25 MG Tablet PO (08:43)
[2024-05-03] MEDS: Ranolazine 500 MG Tablet PO (08:44)
[2024-05-03 08:53] LABS: Bedside Glucose 171 mg/dL (74-106)
--- NOTE | 2024-05-03 08:55 | CASEMGMT ---
Patient will be discharged back to [facility] under intermediate level of care. Physicians will transport patient via wheelchair van. Miriam BOLES
--- NOTE | 2024-05-03 09:06 | CASEMGMT ---
Discharge Planning Discharge orders, signed med list, and transport time sent to [facility]. Physicians will transport pt by wheelchair at 10a. Nursing, SW, pt, and her daughter (Sherrie) updated. Unable to reach pts . Clara Grover DC Planning Asst.
[2024-05-03] MEDS: Insulin Lispro 100 UNIT/ML INSULN.PEN 18 UNIT SC (09:21)
--- NOTE | 2024-05-03 09:21 | PHA.DC_ITS ---
Pharmacy [place] Med Reconciliation Pharmacy Service has performed discharge medication reconciliation for this patient. The patient's discharge medication list was reviewed for discrepancies and discrepancies were resolved. Medications at Discharge Home Medications levothyroxine 50 mcg tablet 50 mcg PO DAILY thyroid 05/10/20 cholecalciferol (vitamin D3) 25 mcg (1,000 unit) capsule (Vitamin D3) 25 mcg PO DAILY vitamin 06/20/21 atorvastatin 40 mg tablet 40 mg PO QHS cholesterol #90 tabs 08/20/22 nitroglycerin 0.4 mg sublingual tablet 0.4 mg sublingual Q5M PRN chest pain #25 tabs 08/20/22 flash glucose scanning reader ([employer] Jong 2 [place]) #1 ea 11/08/22 ranolazine 500 mg tablet,extended release,12 hr 500 mg PO Q12H 12/05/22 aspirin 81 mg tablet,delayed release (Adult Aspirin Regimen) 81 mg PO DAILY 02/03/23 gabapentin 300 mg capsule 300 mg PO TID NEUROPATHY #90 caps 02/07/23 bisacodyl 10 mg rectal suppository 10 mg NC DAILY PRN constipation 06/12/23 insulin lispro 100 unit/mL subcutaneous pen 18 unit subcut TID 06/12/23 lidocaine 4 % topical patch (Lidocaine Pain Relief) 1 patch topical DAILY pain 06/12/23 magnesium hydroxide 400 mg/5 mL oral suspension (Milk of Magnesia) 30 ml PO DAILY PRN constipation 06/12/23 meclizine 12.5 mg tablet 12.5 mg PO Q4H PRN dizziness 06/12/23 menthol 4 % topical gel (Biofreeze (menthol)) 1 applic topical DAILY PRN pain 06/12/23 mineral oil (Fleet Mineral Oil enema) 118 ml NC DAILY PRN constipation 06/12/23 insulin glargine 100 unit/mL (3 mL) subcutaneous pen (Lantus Solostar U-100 Insulin) 28 unit subcut QHS 07/17/23 loratadine 10 mg tablet 10 mg PO DAILY PRN allergy symptoms 09/15/23 memantine 5 mg tablet 10 mg PO BID DEMENTIA 09/15/23 Held on 05/03/24. Instructions: Resume on 05/12/24. duloxetine 60 mg capsule,delayed release 60 mg PO DAILY 12/30/23 albuterol sulfate 2.5 mg/3 mL (0.083 %) solution for nebulization 2.5 mg inhalation Q6H PRN bronchospasm 02/13/24 benzonatate 100 mg capsule 100 mg PO Q8H PRN cough 02/13/24 dextran 70-hypromellose 0.1 %-0.3 % eye drops 1 drp ophthalmic (eye) Q8H PRN dry eye(s) 02/13/24 isosorbide mononitrate 60 mg tablet,extended release 24 hr 60 mg PO BID HTN 03/11/24 semaglutide 0.25 mg or 0.5 mg (2 mg/3 mL) subcutaneous pen injector (Ozempic) 0.25 mg (0.368 mL) subcut QWEEK #3 mL 04/01/24 empagliflozin 25 mg tablet (Jardiance) 25 mg PO QAM DIABETES #30 tabs 04/15/24 acetaminophen 500 mg capsule 1,000 mg PO Q8 pain 05/02/24 furosemide 20 mg tablet (Lasix) 20 mg PO DAILY edema, SOB 05/02/24 gabapentin 100 mg capsule 100 mg PO QHS 05/02/24 guaifenesin 600 mg tablet, extended release 12 hr 600 mg PO Q12H PRN congestion 05/02/24 hydralazine 100 mg tablet 50 mg PO TID HTN 05/02/24 insulin lispro 100 unit/mL subcutaneous solution (Humalog U-100 Insulin) See Protocol subcut .COMPLEX 05/02/24 oxybutynin chloride 5 mg tablet,extended release 24 hr 5 mg PO DAILY BLADDER SPASMS 05/02/24 Held on 05/03/24. Instructions: Resume on 05/12/24. trazodone 50 mg tablet 125 mg PO .HS insomnia 05/02/24
[2024-05-03] MEDS: Insulin Lispro 100 UNIT/ML INSULN.PEN SC (09:22)
--- NOTE | 2024-05-03 09:38 | NURSING ---
Report called to nurse Clancy for pt to be d/c back to the [facility].
--- NOTE | 2024-05-03 14:14 | PCM.DC.SUM ---
Providers Date of Admission: 05/02/24 Primary Care Physician: Dr. Jose J Lezama DO Reason For Visit: ORTHOSTATIC SYNCOPE Diagnosis Discharge Diagnosis (1) Orthostatic hypotension: Status: Acute Code(s): I95.1 - Orthostatic hypotension (2) Laceration of head: Status: Acute Code(s): S01.91XA - Laceration without foreign body of unspecified part of head, initial encounter (3) Syncope: Status: Acute Code(s): R55 - Syncope and collapse Medications at Discharge Home Medications levothyroxine 50 mcg tablet 50 mcg PO DAILY thyroid 05/10/20 cholecalciferol (vitamin D3) 25 mcg (1,000 unit) capsule (Vitamin D3) 25 mcg PO DAILY vitamin 06/20/21 atorvastatin 40 mg tablet 40 mg PO QHS cholesterol #90 tabs 08/20/22 nitroglycerin 0.4 mg sublingual tablet 0.4 mg sublingual Q5M PRN chest pain #25 tabs 08/20/22 flash glucose scanning reader ([employer] Jong [address] [place]) #1 ea 11/08/22 ranolazine 500 mg tablet,extended release,12 hr 500 mg PO Q12H 12/05/22 aspirin 81 mg tablet,delayed release (Adult Aspirin Regimen) 81 mg PO DAILY 02/03/23 gabapentin 300 mg capsule 300 mg PO TID NEUROPATHY #90 caps 02/07/23 bisacodyl 10 mg rectal suppository 10 mg AL DAILY PRN constipation 06/12/23 insulin lispro 100 unit/mL subcutaneous pen 18 unit subcut TID 06/12/23 lidocaine 4 % topical patch (Lidocaine Pain Relief) 1 patch topical DAILY pain 06/12/23 magnesium hydroxide 400 mg/5 mL oral suspension (Milk of Magnesia) 30 ml PO DAILY PRN constipation 06/12/23 meclizine 12.5 mg tablet 12.5 mg PO Q4H PRN dizziness 06/12/23 menthol 4 % topical gel (Biofreeze (menthol)) 1 applic topical DAILY PRN pain 06/12/23 mineral oil (Fleet Mineral Oil enema) 118 ml AL DAILY PRN constipation 06/12/23 insulin glargine 100 unit/mL (3 mL) subcutaneous pen (Lantus Solostar U-100 Insulin) 28 unit subcut QHS 07/17/23 loratadine 10 mg tablet 10 mg PO DAILY PRN allergy symptoms 09/15/23 memantine 5 mg tablet 10 mg PO BID DEMENTIA 09/15/23 Held on 05/03/24. Instructions: Resume on 05/12/24. duloxetine 60 mg capsule,delayed release 60 mg PO DAILY 12/30/23 albuterol sulfate 2.5 mg/3 mL (0.083 %) solution for nebulization 2.5 mg inhalation Q6H PRN bronchospasm 02/13/24 benzonatate 100 mg capsule 100 mg PO Q8H PRN cough 02/13/24 dextran 70-hypromellose 0.1 %-0.3 % eye drops 1 drp ophthalmic (eye) Q8H PRN dry eye(s) 02/13/24 isosorbide mononitrate 60 mg tablet,extended release 24 hr 60 mg PO BID HTN 03/11/24 semaglutide 0.25 mg or 0.5 mg (2 mg/3 mL) subcutaneous pen injector (Ozempic) 0.25 mg (0.368 mL) subcut QWEEK #3 mL 04/01/24 empagliflozin 25 mg tablet (Jardiance) 25 mg PO QAM DIABETES #30 tabs 04/15/24 acetaminophen 500 mg capsule 1,000 mg PO Q8 pain 05/02/24 furosemide 20 mg tablet (Lasix) 20 mg PO DAILY edema, SOB 05/02/24 gabapentin 100 mg capsule 100 mg PO QHS 05/02/24 guaifenesin 600 mg tablet, extended release 12 hr 600 mg PO Q12H PRN congestion 05/02/24 hydralazine 100 mg tablet 50 mg PO TID HTN 05/02/24 insulin lispro 100 unit/mL subcutaneous solution (Humalog U-100 Insulin) See Protocol subcut .COMPLEX 05/02/24 oxybutynin chloride 5 mg tablet,extended release 24 hr 5 mg PO DAILY BLADDER SPASMS 05/02/24 Held on 05/03/24. Instructions: Resume on 05/12/24. trazodone 50 mg tablet 125 mg PO .HS insomnia 05/02/24 Hospital Course Operations None Procedures None Summary of Care Provided Minutes Spent on Discharge: 32 Hospital Course: Per HPI: GLORIA PAUL, is a 88 F who [facility]. She says that she frequently gets dizzy several times a week and is usually able to wait for it to go away prior to moving, however today she got up and was sitting in the chair and got dizzy and lightheaded and then it went away so she stood up and in the process of standing up she lost her balance because of the lightheadedness and dizziness and fell forward and hit her head. She does not think she blacked out however a full set of CT scans and x-rays show that there has been no fractures, she does have a right forehead laceration that was repaired in the ER as well as ecchymosis over her right eye. Vision in her eye is not diminished but she does have difficulty due to swelling and opening her right eye. She does take oxybutynin and memantine and was found to be orthostatic in the ER. Hospital Course: 1. Orthostatic hypotension leading to fall with a forehead laceration and ecchymosis over the right eyelid ? She frequently gets dizzy and does appear to be orthostatic in origin ? She is severely hypertensive at baseline is on multiple medications ? Systolic blood pressure went from 199 laying down to 178 on standing consistent with orthostatic hypotension ? She is on meclizine as an outpatient ? Given the intensity of her blood pressure I do not think that I can discontinue any of her home blood pressure medications ? She is on memantine and oxybutynin both of which can cause lightheadedness and dizziness I discussed with family that this is to be discontinued and evaluated at the jail 05/03/2024: Swelling in her right eye is improved and I discussed with her the possibility for discharge today, and she expressed desire for going back to the [facility] today. She says that she is feeling a bit better and she no longer has pain with movement in the right eye 2. Essential HTN/HLD/CAD status post CABG and stent/paroxysmal A-fib ? No anticoagulation given that she is a fall risk ? Will hold her aspirin for 24 hours ? Can resume her home blood pressure medications and her home cholesterol ? Will monitor make adjustments as necessary ? Hold her Lasix given the need for some gentle IV fluids for her orthostatic hypotension 3. DM2 ? Continue with Jardiance ? Hold Ozempic, can restart on discharge ? Continue with insulin, Accu-Cheks ACHS ? Will monitor make adjustments as necessary 5. Hypothyroidism ? Stable ? Continue with Synthroid 6. Anxiety/depression/dementia ? Hold memantine given the lack of benefit and the possibility of continued dizziness and orthostasis ? Continue with her other home medications 7. Urinary incontinence ? Will hold oxybutynin given her age and her frequent falls Physical Exam Narrative General: Alert, Oriented x3, Cooperative, No apparent distress HEENT: Atraumatic, PERRLA, EOMI, Normocephalic, right eye lid ecchymosis and swelling?improved Oral: Moist Mucosa Neck: Supple, No JVD Lungs: Diminished, Normal air movement, No rhonchi, No wheeze, No rales Cardiovascular: Regular rate, Regular Rhythm, Normal S1, Normal S2, No murmurs Abdomen: Soft, Non Tender, Non-Distended, No Hepato-splenomegaly Extremities: Trace edema, Capillary Refill Less than 3 Seconds Skin: No rashes, No breakdown, right forehead laceration Musculoskeletal: No Tenderness to Palpation of Joints or Extremities Neurological: No focal neurological deficits, moves all extremities Psych/Mental Status: Normal Affect, Appropriate Weight / BMI Weight Weight: 163 lb 9.328 oz Body Mass Index (BMI) 29.0 ABG / Lab / Microbiology Data 05/03/24 06:11 05/03/24 06:11 Laboratory: Laboratory Results - last 24 hr 05/02/24 16:25: POC Glucose 134 H 05/02/24 21:06: POC Glucose 113 H 05/03/24 06:11: WBC 8.1, RBC 4.05 L, Hgb 12.9, Hct 39.6, MCV 97.8, MCH 31.9, MCHC 32.6, RDW Std Deviation 48.4 H, RDW Coeff of Laquita 13.4, Plt Count 185, MPV 11.3, Immature Gran % (Auto) 0.400, Neut % (Auto) 54.3, Lymph % (Auto) 26.9, [place] % (Auto) 10.5 H, Eos % (Auto) 6.8 H, Baso % (Auto) 1.1 H, Absolute Neuts (auto) 4.4, Absolute Lymphs (auto) 2.18, Nucleated RBC % 0, Sodium 141, Potassium 4.1, Chloride 109 H, Carbon Dioxide 20.7 L, Anion Gap 12, BUN 32 H, Creatinine 1.35 H, Estim Creat Clear Calc 28.86 L, Est GFR (MDRD) Non-Af 38 L, BUN/Creatinine Ratio 23.6 H, Glucose 173 H, Calcium 9.1 05/03/24 08:34: POC Glucose 171 H D/C Instructions DC O2, CPAP, BIPAP Needs Home O2 Discharge instructions: No Meaningful Use Info Meaningful Use Meaningful Use Diagnoses (Choose all that apply): None applicable Ischemic Stroke Statin Dosing Therapy Reference: STATIN DOSE THERAPY REFERENCE: * Patients > 75 years receive moderate or high dose statin therapy. * Patients 75 years or YOUNGER should receive HIGH intensity statin dose unless contraindicated. You will be required to document reason for non-treatment if statin daily dose does not meet guidelines. HIGH DOSE STATIN THERAPY DAILY Atorvastatin > than or = to 40 mg Rosuvastatin > than or = to 20 mg Amlodipine + Atorvastatin > than or = to 2.5/40 mg Ezetimibe + Simvastatin 10/80 mg Simvastatin 80mg Discharge Plan Admission Admit Date/Time: 05/02/24 11:58 Attending Provider: Bernardino Briceno Primary Care Provider: Jose J Lezama Discharge Orders/Prescriptions Prescriptions: Continued cholecalciferol (vitamin D3) [Vitamin D3] 25 mcg (1,000 unit) capsule 25 mcg PO DAILY levothyroxine 50 mcg tablet 50 mcg PO DAILY lidocaine [Lidocaine Pain Relief] 4 % adhesive patch,medicated 1 patch topical DAILY meclizine 12.5 mg tablet 12.5 mg PO Q4H PRN (Reason: dizziness) insulin lispro 100 unit/mL insulin pen 18 unit SUBCUT TID Patient Comments: at meals mineral oil [Fleet Mineral Oil] Enema 118 ml AL DAILY PRN (Reason: constipation) Rx Instructions: discard any unused portion magnesium hydroxide [Milk of Magnesia] 400 mg/5 mL suspension 30 ml PO DAILY PRN (Reason: constipation) bisacodyl 10 mg suppository 10 mg AL DAILY PRN (Reason: constipation) Biofreeze (menthol) 4 % gel 1 applic topical DAILY PRN (Reason: pain) Patient Comments: APPLY TO RIGHT SHOULDER insulin glargine [Lantus Solostar U-100 Insulin] 100 unit/mL (3 mL) insulin pen 28 unit subcut QHS loratadine 10 mg tablet 10 mg PO DAILY PRN (Reason: allergy symptoms) Ozempic 0.25 mg or 0.5 mg (2 mg/3 mL) pen injector 0.25 mg subcut QWEEK Qty: 3 3RF Patient Comments: TAKE ON MONDAYS Jardiance 25 mg tablet 25 mg PO QAM Qty: 30 5RF duloxetine 60 mg capsule,delayed release(DR/EC) 60 mg PO DAILY benzonatate 100 mg capsule 100 mg PO Q8H PRN (Reason: cough) dextran 70-hypromellose 0.1-0.3 % drops 1 drp ophthalmic (eye) Q8H PRN (Reason: dry eye(s)) albuterol sulfate 2.5 mg /3 mL (0.083 %) solution for nebulization 2.5 mg inhalation Q6H PRN (Reason: bronchospasm) isosorbide mononitrate 60 mg tablet extended release 24 hr 60 mg PO BID aspirin [Adult Aspirin Regimen] 81 mg tablet,delayed release (DR/EC) 81 mg PO DAILY gabapentin 300 mg capsule 300 mg PO TID Qty: 90 0RF ranolazine 500 mg tablet extended release 12 hr 500 mg PO Q12H gabapentin 100 mg capsule 100 mg PO QHS guaifenesin 600 mg tablet extended release 12hr 600 mg PO Q12H PRN (Reason: congestion) insulin lispro [Humalog U-100 Insulin] 100 unit/mL solution See Protocol subcut .COMPLEX Protocol: 6. Sliding Scale Insulin Custom Condition: mg/dl range Dose/Route: Number of Units Condition: 200-249 Dose/Route: 2 UNITS Condition: 250-299 Dose/Route: 3 UNITS Condition: 300-349 Dose/Route: 4 UNITS Condition: 350-400 Dose/Route: 6 UNITS Protocol Text: Custom Sliding Scale Rx Instructions: subcutaneously PER SLIDING SCALE; hydralazine 100 mg tablet 50 mg PO TID furosemide [Lasix] 20 mg tablet 20 mg PO DAILY trazodone 50 mg tablet 125 mg PO .HS acetaminophen 500 mg capsule 1,000 mg PO Q8 atorvastatin 40 mg tablet 40 mg PO QHS Qty: 90 3RF nitroglycerin 0.4 mg tablet, sublingual 0.4 mg SUBLINGUAL Q5M PRN (Reason: chest pain) Qty: 25 3RF Rx Instructions: do not exceed 3 doses per episode (DME) FreeStyle [address] [place] Misc See Rx Instructions .Route Qty: 1 0RF Rx Instructions: As directed Held memantine 5 mg tablet 10 mg PO BID Hold Instructions: Resume on 05/12/24. oxybutynin chloride 5 mg tablet extended release 24hr 5 mg PO DAILY Hold Instructions: Resume on 05/12/24. Referrals / Follow Up: Jose J Lezama DO [Primary Care Provider] - Disposition Disposition (needs filled in before D/C Order can be placed): [facility] Charges/Coding Visit Charges Inpatient E&M: 18555 Disch Hosp >30min
== END 2024-05-03 09:54 | disposition skilled nursing facility (03) ==
LOC: ED 12:04 → PCU 12:23
PROVIDERS: Admitting Provider Family Medicine; Emergency Provider Emergency Medicine; PCP Family Medicine; Visit Provider Family Medicine
DX: I95.1 Orthostatic hypotension (principal); I13.0 Hypertensive heart and chronic kidney disease with heart failure and stage 1 through stage 4 chronic kidney disease, or unspecified chronic kidney disease; I50.32 Chronic diastolic (congestive) heart failure; I27.20 Pulmonary hypertension, unspecified; F03.90 Unspecified dementia, unspecified severity, without behavioral disturbance, psychotic disturbance, mood disturbance, and anxiety; I48.0 Paroxysmal atrial fibrillation; Z79.4 Long term (current) use of insulin; E11.22 Type 2 diabetes mellitus with diabetic chronic kidney disease; Z79.84 Long term (current) use of oral hypoglycemic drugs; R32 Unspecified urinary incontinence; S01.91XA Laceration without foreign body of unspecified part of head, initial encounter; E03.9 Hypothyroidism, unspecified; N18.9 Chronic kidney disease, unspecified; S05.11XA Contusion of eyeball and orbital tissues, right eye, initial encounter; W01.10XA Fall on same level from slipping, tripping and stumbling with subsequent striking against unspecified object, initial encounter; Y92.129 Unspecified place in nursing home as the place of occurrence of the external cause; M85.80 Other specified disorders of bone density and structure, unspecified site; F32.A Depression, unspecified; F41.9 Anxiety disorder, unspecified; E78.00 Pure hypercholesterolemia, unspecified; G47.33 Obstructive sleep apnea (adult) (pediatric); Z23 Encounter for immunization; Z79.82 Long term (current) use of aspirin; Z79.85 Long-term (current) use of injectable non-insulin antidiabetic drugs; Z79.890 Hormone replacement therapy; Z79.899 Other long term (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; Z86.73 Personal history of transient ischemic attack (TIA), and cerebral infarction without residual deficits; Z95.1 Presence of aortocoronary bypass graft; Z95.5 Presence of coronary angioplasty implant and graft
CPT/HCPCS: 12014; 36415; 70450; 71045; 72125; 72170; 73110; 80048; 80076; 81001; 82010; 82803; 82962; 85025; 85610; 85730; 90715; 93005; 96360; 96361; 99221; 99285; A4216; G0378

== ENCOUNTER 2024-09-11 23:43 | Emergency (ER) | payer MEDICARE, MEDICAID, SELFPAY ==
[2023-06-17 15:45] VITALS: BMI 28.7
[2024-09-11 23:43] VITALS: BP 158/73; PULSE 84; RESP 16; TEMP 36.4; O2SAT 93; BMI 27.3
--- NOTE | 2024-09-11 23:52 | EKG12_ITS ---
Test Reason : REPEAT Blood Pressure : */* mmHG Vent. Rate : 73 BPM Atrial Rate : 73 BPM P-R Int : 220 ms QRS Dur : 74 ms QT Int : 394 ms P-R-T Axes : 30 -9 -27 degrees QTcB Int : 434 ms Sinus rhythm with 1st degree A-V block Inferior infarct , age undetermined Abnormal ECG Confirmed by LAURA BENITEZ, CARRIE ([id number]), editor managing newspaper KATHI TSE ([id number]) on 09/14/2024 7:46:16 AM Referred By: Confirmed By: CARRIE SANCHEZ MD
--- NOTE | 2024-09-11 23:53 | ED.VIS.CHEST ---
HPI History of Present Illness Chief Complaint: Chest Pain Informant: patient and spouse/S.O. Narrative Narrative: [facility] left-sided chest pain started 2 hours working right for bed. Pain with deep breaths. No radicular pain. No dyspnea. No nausea. History of coronary disease. From records three-vessel CABG in 2017 and subsequent stent in 2019. She only on baby aspirin no other blood thinners. No recent travel or surgeries no recent immobilizations. Denies history of PE or DVT. Denies cough. Diabetes hypertension hyperlipidemia hypothyroidism. Prior Similar Symptoms: No CVD Risk Factors: Positive for Hypertension, Diabetes and Hypercholesterolemia PE Risk Factors: Negative for Recent Travel/Surgery, Recent Immobilization or Prior DVT or PE 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 in other diseases classified elsewhere, unspecified severity, with mood disturbance Obesity Right shoulder pain Kidney disease Non-smoker BiPAP (biphasic positive airway pressure) dependence Sleep apnea Hypertension Congestive heart failure (CHF) Atrial fibrillation Stroke/cerebrovascular accident Subtherapeutic international normalized ratio (INR) Sleep apnea Fall Kidney disease Atrial fibrillation Hypertension Chest pain History of coronary artery disease Pulmonary HTN Vertigo Chronic anticoagulation History of fall care home current use of anticoagulant Wears hearing aid Post-menopausal Thyroid disease Insulin dependent diabetes mellitus Ambulates with cane Arthritis History of renal disease High cholesterol Easy bruising Back pain Migraine headache Difficulty swallowing Dietary restriction Shortness of breath on exertion History of pain when walking History of echocardiogram History of stress test Hypertension Cardiology follow-up encounter History of CHF (congestive heart failure) History of atrial fibrillation Osteoarthritis of left knee CAD (coronary artery disease) PAF (paroxysmal atrial fibrillation) Acute on chronic heart failure with preserved ejection fraction (HFpEF) New onset atrial fibrillation Congestive heart failure Broken ribs Lower GI bleeding Intertrigo Diabetes Non-smoker CPAP (continuous positive airway pressure) dependence Coronary artery disease Stroke/cerebrovascular accident (HFpEF) heart failure with preserved ejection fraction Microalbuminuria Pure hypercholesterolemia Essential hypertension Hypothyroidism GERD (gastroesophageal reflux disease) Fibromyalgia Atherosclerotic heart disease of [place] coronary artery without angina pectoris Presence of stent in coronary artery (~12/11/18) Carotid stenosis, left Debility Fatigue Angina pectoris Obstructive sleep apnea Lumbosacral radiculopathy CAD (coronary artery disease) Renal cancer History of stroke Diabetes mellitus, type 2 Home Medications ?Medication ?Instructions ?Recorded ?Last Taken ?Type levothyroxine 50 mcg tablet 50 mcg PO DAILY thyroid 05/10/20 05/02/24 History cholecalciferol (vitamin D3) 25 25 mcg PO DAILY vitamin 06/20/21 05/01/24 History mcg (1,000 unit) capsule (Vitamin D3) atorvastatin 40 mg tablet 40 mg PO QHS cholesterol #90 tabs 08/20/22 05/01/24 Rx nitroglycerin 0.4 mg sublingual 0.4 mg sublingual Q5M PRN chest 08/20/22 Unknown Rx tablet pain #25 tabs flash glucose scanning reader #1 ea 11/08/22 Unknown Rx (FreeStyle Jong 2 Parrish) ranolazine 500 mg tablet,extended 500 mg PO Q12H 12/05/22 05/01/24 History release,12 hr aspirin 81 mg tablet,delayed 81 mg PO DAILY 02/03/23 02/19/23 History release (Adult Aspirin Regimen) gabapentin 300 mg capsule 300 mg PO TID NEUROPATHY #90 caps 02/07/23 05/02/24 Rx bisacodyl 10 mg rectal suppository 10 mg AR DAILY PRN constipation 06/12/23 Unknown History insulin lispro 100 unit/mL 18 unit subcut TID 06/12/23 05/01/24 History subcutaneous pen lidocaine 4 % topical patch 1 patch topical DAILY pain 06/12/23 05/01/24 History (Lidocaine Pain Relief) magnesium hydroxide 400 mg/5 mL 30 ml PO DAILY PRN constipation 06/12/23 Unknown History oral suspension (Milk of Magnesia) meclizine 12.5 mg tablet 12.5 mg PO Q4H PRN dizziness 06/12/23 04/30/24 History menthol 4 % topical gel (Biofreeze 1 applic topical DAILY PRN pain 06/12/23 Unknown History (menthol)) mineral oil (Fleet Mineral Oil 118 ml AR DAILY PRN constipation 06/12/23 Unknown History enema) insulin glargine 100 unit/mL (3 28 unit subcut QHS 07/17/23 05/01/24 History mL) subcutaneous pen (Lantus Solostar U-100 Insulin) loratadine 10 mg tablet 10 mg PO DAILY PRN allergy symptoms 09/15/23 Unknown History memantine 5 mg tablet 10 mg PO BID DEMENTIA 09/15/23 05/01/24 History Held on 05/03/24. Instructions: Resume on 05/12/24. duloxetine 60 mg capsule,delayed 60 mg PO DAILY 12/30/23 05/01/24 History release albuterol sulfate 2.5 mg/3 mL 2.5 mg inhalation Q6H PRN 02/13/24 Unknown History (0.083 %) solution for nebulization bronchospasm dextran 70-hypromellose 0.1 %-0.3 1 drp ophthalmic (eye) Q8H PRN dry 02/13/24 Unknown History % eye drops eye(s) isosorbide mononitrate 60 mg 60 mg PO BID HTN 03/11/24 05/01/24 History tablet,extended release 24 hr semaglutide 0.25 mg or 0.5 mg (2 0.25 mg (0.368 mL) subcut QWEEK #3 04/01/24 04/26/24 Rx mg/3 mL) subcutaneous pen injector mL (Ozempic) empagliflozin 25 mg tablet 25 mg PO QAM DIABETES #30 tabs 04/15/24 05/01/24 Rx (Jardiance) acetaminophen 500 mg capsule 1,000 mg PO Q8 pain 05/02/24 Unknown History furosemide 20 mg tablet (Lasix) 20 mg PO DAILY edema, SOB 05/02/24 05/01/24 History gabapentin 100 mg capsule 100 mg PO QHS 05/02/24 05/01/24 History guaifenesin 600 mg tablet, 600 mg PO Q12H PRN congestion 05/02/24 Unknown History extended release 12 hr hydralazine 100 mg tablet 50 mg PO TID HTN 05/02/24 04/29/24 History insulin lispro 100 unit/mL See Protocol subcut .COMPLEX 05/02/24 05/01/24 History subcutaneous solution (Humalog U-100 Insulin) oxybutynin chloride 5 mg 5 mg PO DAILY BLADDER SPASMS 05/02/24 05/01/24 History tablet,extended release 24 hr Held on 05/03/24. Instructions: Resume on 05/12/24. trazodone 50 mg tablet 125 mg PO .HS insomnia 05/02/24 Unknown History Allergy/AdvReac Type Severity Reaction Status Date / Time morphine Allergy Intermediate Low blood Verified 09/11/24 23:44 pressure latex Allergy Rash Verified 09/11/24 23:44 adhesive tape AdvReac Rash Verified 09/11/24 23:44 ticagrelor (From Brilinta) AdvReac Shortness Verified 09/11/24 23:44 of breath Family History Father Heart disease Mother Breast cancer Diabetes Heart disease Surgical History History of coronary artery stent placement Hx of CABG History of coronary artery stent placement History of arthroscopic knee surgery History of cardiac catheterization Hx of hand surgery H/O hemorrhoidectomy History of appendectomy History of cholecystectomy Hx of CABG History of right and left heart catheterization (LHC) (~08/10/19) History of coronary artery bypass graft x 3 (~04/08/16) Presence of coronary angioplasty implant and graft (~12/11/18) History of back surgery History of right inguinal hernia repair History of knee replacement procedure of right knee History of hysterectomy Postlaminectomy syndrome of lumbar region Social History household members: spouse housing: house Smoking Status: Never smoker alcohol intake: never substance use type: does not use caffeine: No ROS ROS ED Constitutional Constitutional ED: Denies chills, fever(s) or sweats ENT ENT ED: Denies sore throat Cardiovascular Cardiovascular: Reports chest pain; Denies leg edema, palpitations or racing heartbeat Respiratory/Chest Respiratory/Chest: Denies cough, dyspnea or dyspnea on exertion Gastrointestinal Gastrointestinal: Denies abdominal pain, diarrhea, nausea or vomiting Genitourinary Genitourinary ED: Denies dysuria, hematuria or urinary frequency Musculoskeletal Musculoskeletal: Denies back pain, extremity pain or neck pain Integumentary Denies rash or wounds Neurologic Neurologic: Denies headache(s), paresthesias or weakness EXAM Physical Exam Const Vital Signs: 09/11/24 23:43 09/11/24 23:52 09/11/24 23:54 Temperature 97.5 F L Temperature Source Oral Pulse Rate 84 Respiratory Rate 16 Respiratory Pattern Normal Blood Pressure 158/73 H Blood Pressure Mean 101 Pulse Ox 93 Oxygen Delivery Method Room Air Room Air 09/12/24 00:03 09/12/24 00:20 09/12/24 00:30 Temperature Temperature Source Pulse Rate 75 74 Respiratory Rate 17 14 Respiratory Pattern Blood Pressure 118/58 L Blood Pressure Mean 76 Pulse Ox 93 92 92 Oxygen Delivery Method Room Air 09/12/24 00:45 09/12/24 01:00 09/12/24 01:15 Temperature Temperature Source Pulse Rate 75 76 Respiratory Rate 27 H 14 Respiratory Pattern Blood Pressure 122/57 H 127/45 H 116/82 H Blood Pressure Mean 77 70 88 Pulse Ox 92 88 Oxygen Delivery Method 09/12/24 01:29 09/12/24 01:30 09/12/24 01:45 Temperature Temperature Source Pulse Rate 78 77 72 Respiratory Rate 18 18 30 H Respiratory Pattern Blood Pressure 116/82 H Blood Pressure Mean 93 Pulse Ox 94 91 91 Oxygen Delivery Method Room Air 09/12/24 02:00 09/12/24 03:00 09/12/24 04:16 Temperature Temperature Source Pulse Rate 71 73 73 Respiratory Rate 17 14 27 H Respiratory Pattern Blood Pressure 123/56 H 135/63 H Blood Pressure Mean 78 87 Pulse Ox 91 90 92 Oxygen Delivery Method Room Air Positive well nourished and well developed General Appearance ED: well developed and NAD HEENT Reports moist mucous membranes normocephalic and atraumatic Eyes General Eye ED: Yes normal appearance of both eyes Neck full ROM Chest Wall Chest Narrative: Left upper chest wall tenderness, no ecchymosis no rash. Chest: tenderness Resp normal respiratory effort and normal air movement Effort and Inspection: symmetric chest movement; Negative for respiratory distress Cardio regular rate, regular rhythm and no murmurs Peripheral Pulses: pulses 2+ throughout GI normal to inspection, nondistended, normoactive bowel sounds and non-tender Palpation: Negative for guarding or rebound tenderness present Extremity normal to inspection General Extremety ED: Negative for edema or tenderness General Extremity: Negative for edema Neuro oriented x3 and no sensory deficits noted Sensorium / Orientation: awake and alert Skin no rashes or lesions noted and no wounds MDM MDM MDM Narrative Medical decision making narrative: Interventions / MDM: Differential diagnosis: Atypical chest pain, history of coronary disease Diagnosis considered but do not suspect: ACS however workup negative, PE however CT negative. My EKG interpretation: Sinus rate of 76, no ST changes T wave inversions inferior leads III aVF along with lateral leads V3 to V5. New lateral changes from April 2024. However previous EKGs in that had T wave versions in the similar leads. EKG #200 55. Sinus rate of 73 first-degree AV block no ST changes. T wave version 3 and aVF, now right lateral leads. Similar to EKG April 2024. Imaging independently reviewed and interpreted by myself: CTA chest: No PE no dissection no pneumonia. No fractures. Also read by radiology. External documents reviewed: N/A Test considered but not ordered:N/A ED course: [facility] left-sided chest pain worse with deep breaths. IV fentanyl 25 mics cardiac workup including D-dimer due to pain with deep breaths. 0035: Initial troponin 33 creatinine 1.79 improved from 2.19 a few months ago. GFR 27. D-dimer elevated 1.54. Been previously elevated with negative V/Q scans. She still complained of pain after fentanyl repeat EKG was ordered, 50 mics fentanyl ordered. 0055: Repeat EKG notes upright lateral leads similar to April of this year. I discussed with CT, GFR of 27, will give a liter of fluids and will obtain CTA chest for further evaluation. 0320: Delta troponin down to 30. CT chest negative for any acute process. Currently symptom-free. With her cardiac history, her 4-hour drawl is than 10 minutes. Will obtain this prior to disposition. 0437: 4-hour troponin also at 30P remains symptom-free. Review of her medication she is on Ranexa. Atypical symptoms this time. Negative workup per algorithm. Patient be discharged outpatient follow-up with her cardiology team. Return precautions. All questions were answered. Re-evaluation: stable Disposition discussed with patient/family/significant other: Patient and significant other Case discussed with consulting clinician: N/A This note was generated with [employer] dictation software. It may contain incorrect words, spelling, and punctuation that were not noted in checking the note before signing. Lab Data Attestation: I reviewed the patient's lab results. Labs: Laboratory Results - last 24 hr 09/11/24 09/12/24 09/12/24 23:35 01:30 03:35 WBC 9.9 RBC 4.37 Hgb 14.1 Hct 42.5 MCV 97.3 MCH 32.3 H MCHC 33.2 RDW Std Deviation 48.4 H RDW Coeff of Laquita 13.6 Plt Count 179 MPV 11.2 Immature Gran % (Auto) 0.700 Neut % (Auto) 58.8 Lymph % (Auto) 26.2 [place] % (Auto) 9.7 Eos % (Auto) 3.7 Baso % (Auto) 0.9 Absolute Neuts (auto) 5.8 Absolute Lymphs (auto) 2.59 Nucleated RBC % 0 D-Dimer Quant (PE/DVT) 1.54 H* Sodium 139 Potassium 3.7 Chloride 105 Carbon Dioxide 19.9 L Anion Gap 15 BUN 39 H Creatinine 1.79 H Estim Creat Clear Calc 20.79 L Est GFR (MDRD) Non-Af 27 L BUN/Creatinine Ratio 21.8 H Glucose 102 H Calcium 9.0 Troponin T High Sens 33 H Troponin T Hi Sens 2 Hr 30 H Troponin T Hi Sens 4Hr 30 H Radiography Diagnostic Testing: Clinical Impression(s) from Imaging Studies Chest CTA 09/12/24 01:01 IMPRESSION: No embolism, dissection, or pneumonia. Reading Location: [place] [id number] Discharge Plan Triage Chief Complaint: Chest Pain ED Provider: Andres Yarbrough Dx/Rx/DC Orders Clinical Impression: Chest pain, CKD (chronic kidney disease) stage 4, GFR 15-29 ml/min, CAD (coronary artery disease) Instructions: CKD Dc, ED Chest Pain, Uncertain Cause Prescriptions: No Action cholecalciferol (vitamin D3) [Vitamin D3] 25 mcg (1,000 unit) capsule 25 mcg PO DAILY levothyroxine 50 mcg tablet 50 mcg PO DAILY lidocaine [Lidocaine Pain Relief] 4 % adhesive patch,medicated 1 patch topical DAILY meclizine 12.5 mg tablet 12.5 mg PO Q4H PRN (Reason: dizziness) insulin lispro 100 unit/mL insulin pen 18 unit SUBCUT TID Patient Comments: at meals mineral oil [Fleet Mineral Oil] Enema 118 ml AR DAILY PRN (Reason: constipation) Rx Instructions: discard any unused portion magnesium hydroxide [Milk of Magnesia] 400 mg/5 mL suspension 30 ml PO DAILY PRN (Reason: constipation) bisacodyl 10 mg suppository 10 mg AR DAILY PRN (Reason: constipation) Biofreeze (menthol) 4 % gel 1 applic topical DAILY PRN (Reason: pain) Patient Comments: APPLY TO RIGHT SHOULDER insulin glargine [Lantus Solostar U-100 Insulin] 100 unit/mL (3 mL) insulin pen 28 unit subcut QHS memantine 5 mg tablet 10 mg PO BID loratadine 10 mg tablet 10 mg PO DAILY PRN (Reason: allergy symptoms) Ozempic 0.25 mg or 0.5 mg (2 mg/3 mL) pen injector 0.25 mg subcut QWEEK Qty: 3 3RF Patient Comments: TAKE ON MONDAYS Jardiance 25 mg tablet 25 mg PO QAM Qty: 30 5RF duloxetine 60 mg capsule,delayed release(DR/EC) 60 mg PO DAILY dextran 70-hypromellose 0.1-0.3 % drops 1 drp ophthalmic (eye) Q8H PRN (Reason: dry eye(s)) albuterol sulfate 2.5 mg /3 mL (0.083 %) solution for nebulization 2.5 mg inhalation Q6H PRN (Reason: bronchospasm) isosorbide mononitrate 60 mg tablet extended release 24 hr 60 mg PO BID aspirin [Adult Aspirin Regimen] 81 mg tablet,delayed release (DR/EC) 81 mg PO DAILY gabapentin 300 mg capsule 300 mg PO TID Qty: 90 0RF ranolazine 500 mg tablet extended release 12 hr 500 mg PO Q12H gabapentin 100 mg capsule 100 mg PO QHS oxybutynin chloride 5 mg tablet extended release 24hr 5 mg PO DAILY guaifenesin 600 mg tablet extended release 12hr 600 mg PO Q12H PRN (Reason: congestion) insulin lispro [Humalog U-100 Insulin] 100 unit/mL solution See Protocol subcut .COMPLEX Protocol: 6. Sliding Scale Insulin Custom Condition: mg/dl range Dose/Route: Number of Units Condition: 200-249 Dose/Route: 2 UNITS Condition: 250-299 Dose/Route: 3 UNITS Condition: 300-349 Dose/Route: 4 UNITS Condition: 350-400 Dose/Route: 6 UNITS Protocol Text: Custom Sliding Scale Rx Instructions: subcutaneously PER SLIDING SCALE; hydralazine 100 mg tablet 50 mg PO TID furosemide [Lasix] 20 mg tablet 20 mg PO DAILY trazodone 50 mg tablet 125 mg PO .HS acetaminophen 500 mg capsule 1,000 mg PO Q8 atorvastatin 40 mg tablet 40 mg PO QHS Qty: 90 3RF nitroglycerin 0.4 mg tablet, sublingual 0.4 mg SUBLINGUAL Q5M PRN (Reason: chest pain) Qty: 25 3RF Rx Instructions: do not exceed 3 doses per episode (DME) FreeStyle Jong 2 Parrish Misc See Rx Instructions .Route Qty: 1 0RF Rx Instructions: As directed Primary Care Provider: Galileo Albert Referrals: Jose J Lezama DO [Med Staff - Quick Print Operator] - Mindy Morrissey FIRESTOP/CONTAINMENT WORKER, FIRESTOP/CONTAINMENT WORKER-C [Non-Staff -Ordering Privileges] - 3-5 Days Activity Restrictions/Additional Instructions: Cardiac workup negative. CTA chest negative for any PE. Drink plenty of fluids for hydration. Follow-up with your cardiology team. Print Language: [place] Disposition Disposition: Home, Self Care
[2024-09-12] VITALS (13 sets, daily range): BP systolic 116–135; BP diastolic 45–82; PULSE 71–78; RESP 14–30; TEMP 36.8; O2SAT 88–94
[2024-09-12] MEDS: fentaNYL 100 MCG/2 ML Ampul 25 MCG IV (00:04)
[2024-09-12 00:10] LABS: Hematocrit 42.5 % (37-47); Hemoglobin 14.1 g/dL (12.0-15.0); Immature Granulocytes Count 0.070 X10^3/uL (0.0-0.0); Mean Corp Hgb Conc 33.2 g/dL (32-36); Mean Corpuscular Volume 97.3 fL (81-99); Mean Platelet Vol. 11.2 fl (6.2-12.0); NRBC Flagged by Analyzer 0 % (0-5); Platelet Count 179 K/mm3 (150-450); RBC Distribution Width CV 13.6 % (11.6-14.6); RBC Distribution Width SD 48.4 fl (35.1-43.9); Red Blood Count 4.37 M/mm3 (4.2-5.4); White Blood Count 9.9 K/mm3 (4.4-11.0)
[2024-09-12 00:22] LABS: D-Dimer Quantitative (DVT/PE) 1.54 FEU/ug/m (0.27-0.49)
[2024-09-12 00:33] LABS: Anion Gap 15 (5-15); BUN 39 mg/dL (4-19); BUN/Creat Ratio 21.8 RATIO (10-20); Calcium,Total 9.0 mg/dL (7.6-11.0); Carbon Dioxide 19.9 mmol/L (21.0-32.0); Chloride 105 mmol/L (98-108); Estimated Creatinine Clearance 20.79 ml/min (50-250); Glucose 102 mg/dL (70-99); Potassium 3.7 mmol/L (3.3-5.1); Troponin T High Sensitivity 33 ng/L (<=14)
--- NOTE | 2024-09-12 00:43 | EKG12_ITS ---
Test Reason : CP Blood Pressure : */* mmHG Vent. Rate : 76 BPM Atrial Rate : 76 BPM P-R Int : 200 ms QRS Dur : 72 ms QT Int : 410 ms P-R-T Axes : 25 -8 -69 degrees QTcB Int : 461 ms Normal sinus rhythm Inferior infarct , age undetermined Abnormal ECG Confirmed by LAURA BENITEZ, CARRIE ([id number]), book or script editor KATHI TSE ([id number]) on 09/14/2024 7:46:09 AM Referred By: Confirmed By: CARRIE SANCHEZ MD
--- OUTSIDE RECORDS SUMMARY | 2024-09-12 00:44 | XMS RPT_ITS | CCD ---
Author Organization [facility] Care Team Providers Care Labor Delivery Specialist Name Role Phone Dr. Fernando Kong Primary Care Provider 1([facility])[phone] Dr. Galileo Day Emergency Provider 1([facility])[phone] Yuriy Browning Admit Provider Dr. Yuriy Browning Attending Provider 1([facility])[phone] Yuriy Browning Other Provider Dr. Nayan Cee Attending Provider 1([facility])[phone] Yuriy Browning Referring Provider 1([facility])[phone] Jose J Rodriguez Attending Provider 1([facility])[phone] Dr. Jose J Rodriguez Other Provider 1([facility])[phone] Fernando Kong Referring Provider 1([facility])[phone] Raudel Angel Attending Provider 1([facility])[phone] JUVENTINO Akhtar Attending Provider 1([facility])[phone] Dr. Fernando Kong Primary Care Provider 1([facility])[phone] Roof BANKING PARALEGAL, BANKING PARALEGAL-C Bam Cisneros Attending Provider 1([facility])[phone] Dr. Elier Brown Attending Provider 1([facility])[phone] Dr. Fernando Kong Primary Care Provider 1([facility])[phone] Dr. Fernando Kong Referring Provider 1([facility])[phone] Roof BANKING PARALEGAL, BANKING PARALEGAL-C Bam Cisneros Referring Provider 1([facility])[phone] Roof BANKING PARALEGAL, BANKING PARALEGAL-C Bam Cisneros Other Provider 1([facility])[phone] Galileo Uriostegui Attending Provider 1([facility])[phone] Dr. Raudel Angel Attending Provider Dr. Fernando Kong Primary Care Provider Dr. Fernando Kong Referring Provider JUVENTINO Akhtar Attending Provider JUVENTINO Akhtar Attending Provider Dr. Raudel Angel Attending Provider Dr. Fernando Kong Primary Care Provider Dr. Fernando Kong Referring Provider JUVENTINO Akhtar Attending Provider Dr. Fernando Kong Primary Care Provider Dr. Fernando Kong Referring Provider JUVENTINO Akhtar Attending Provider Dr. Miguel Diaz Emergency Provider Dr. Roshan Horan Admit Provider Dr. Roshan Horan Other Provider Dr. Lisset Cristobal Attending Provider Dr. Lisset Cristobal Other Provider Dr. Galileo Uriostegui Other Provider Dr. Fe West Other Provider JUVENTINO Boyd Attending Provider Unavail able Dr. Fe West Attending Provider Dr. Fernando Kong Primary Care Provider Dr. Fernando Kong Referring Provider Dr. Fe West Attending Provider Roof SANTOSH, JUVENTINO Cisneros Attending Provider Dr. Fernando Kong Primary Care Provider Dr. Miguel Diaz Emergency Provider Dr. Roshan Horanit Provider Dr. Roshan Horan Other Provider Dr. Lisset Cristobal Attending Provider Dr. Lisset Cristobal Other Provider Dr. Galileo Uriostegui Other Provider Dr. Galileo Uriostegui Attending Provider Dr. Fe West Other Provider Dr. Fe West Attending Provider Dr. Fernando Kong Referring Provider Roof JUVENTINO FROST Attending Provider Dr. Raudel Angel Attending Provider Dr. Carlos Hernández Attending Provider Dr. Fernando Kong Primary Care Provider Dr. Fernando Kong Referring Provider 1([facility])[phone] Carlos Hernández Attending Provider 1([facility])[phone] Dr. Galileo Uriostegui Attending Provider JUVENTINO Akhtar Attending Provider Dr. Fernando Kong Primary Care Provider 1([facility])[phone] Dr. Fernando Kong Referring Provider Dr. Carlos Hernández Attending Provider JUVENTINO Akhtar Attending Provider Dr. Carlos Hernández Referring Provider Dr. Carlos Hernández Other Provider Dr. Jose J Lezama Primary Care Provider Emerald Meyers Attending Provider Unavailable Dr. Nemesio Best Attending Provider Dr. Fernando Kong Primary Care Provider Dr. Fernando Kong Referring Provider Dr. Carlos Hernández Attending Provider JUVENTINO Akhtar Attending Provider Dr. Carlos Hernández Referring Provider Dr. Carlos Hernández Other Provider Dr. Jose J Lezama Primary Care Provider Emerald Meyers Attending Provider Unavailable Dr. Nemesio Best Attending Provider Dr. Nayan Cee Attending Provider Jim, Dr. Caal Emergency Provider Aung, Dr. Islas Admit Provider Aung, Dr. Islas Other Provider Koram, Dr. Lisset Franco Attending Provider Koram, Dr. Lisset Franco Other Provider Dr. Yuriy Gaona Attending Provider Betty, Dr. Gonzalez Attending Provider 1([facility])[phone] Dr. Fernando Kong Referring Provider 1([facility])[phone] JUVENTINO Akhtar Attending Provider Korkhushbu, Dr. Lisset Franco Referring Provider Dr. Jose J Lezama Referring Provider 1([facility])[phone] JUVENTINO Morrissey NP Attending Provider Dr. Jose J Lezama Primary Care Provider [phone] Aung, Dr. Islas Referring Provider Dr. Jose J Lezama Primary Care Provider 1([facility])[phone] Dr. Afua Fernandez Emergency Provider Aung, Dr. Islas Admit Provider Aung, Dr. Islas Other Provider Koram, Dr. Lisset Franco Attending Provider Koram, Dr. Lisset Franco Other Provider JUVENTINO Akhtar Attending Provider Dr. Bernardino Briceno Admit Provider Dr. Bernardino Briceno Attending Provider Dr. Bernardino Briceno Other Provider Dr. Rosa Andersen Attending Provider Dr. Rosa Andersen Other Provider Dr. Jose J Lezama Primary Care Provider Dr. Afua Fernandez Emergency Provider Dr. Hortencia Prado Emergency Provider Dr. Carlos Liu Admit Provider Dr. Carlos Liu Other Provider Dr. Jose J Lezama Primary Care Provider Dr. Jose J Lezama Referring Provider Ghanshyam FROST, BANKING PARALEGAL-C Mindy Attending Provider Dr. Afua Fernandez Emergency Provider Dr. Bernardino Briceno Admit Provider Dr. Bernardino Briceno Attending Provider Dr. Bernardino Briceno Other Provider Dr. Rosa Andersen Attending Provider Dr. Rosa Andersen Other Provider JUVENTINO Akhtar Attending Provider Dr. Hortencia Prado Emergency Provider Dr. Carlos Liu Admit Provider Dr. Carlos Liu Other Provider Dr. Dc Mcpherson Emergency Provider Dr. Clifford Lane Admit Provider [phone] Other Provider [phone] Yuriy Browning Attending Provider Dr. Yuriy Browning Other Provider Dr. Familia Anderson Emergency Provider Susu, Dr. Lisset Franco Admit Provider Susu, Dr. Lisset Franco Other Provider Dr. Clifford Lane Attending Provider [facility] , Dr. Lux Primary Care Provider Teja DO, Dr. Lux Referring Provider Taylor Castro Attending Provider Jacqueline BANKING PARALEGAL-C, Bam Cisneros Attending Provider Hermilo BANKING PARALEGAL-C, Lucretia Attending Provider Prieto JASSO, Dr. Trinh Emergency Provider Kaity BENITEZ, Dr. Bernardino Espana Admit Provider Kaity BENITEZ, Dr. Bernardino Espana Attending Provider Kaity BENITEZ, Dr. Bernardino Espana Other Provider Teja, Jose J Primary Care Unavailable Dc Mcpherson Attending Unavailable Teja, Jose J Primary Care Unavailable Montes, Taylor Referring Unavailable Montes, Taylor Attending Unavailable Teja, Jose J Primary Care Unavailable Bernardino Briceno Attending Unavailable Bernardino Briceno Admitting Unavailable Lucretia Akhtar Attending Unavailable Teja, Jose J Primary Care Unavailable Teja, Jose J Referring Unavailable Teja, Jose J Primary Care Unavailable Teja, Jose J Referring Unavailable Ghanshyam BANKING PARALEGAL, Mindy Attending Unavailable Jacqueline BANKING PARALEGAL, Bam Cisneros Attending Unavailable Teja, Jose J Primary Care Unavailable Teja, Jose J Referring Unavailable Teja, Jose J Primary Care Unavailable Teja, Jose J Referring Unavailable Montes, Taylor Attending Unavailable Lucretia Akhtar Attending Unavailable Teja, Jose J Primary Care Unavailable Teja, Jose J Referring Unavailable HermiloLucretia Attending Unavailable Teja, Jose J Referring Unavailable Teja, Jose J Primary Care Unavailable Yuriy Gaona Attending Unavailable Teja, Jose J Primary Care Unavailable Montes, Taylor Referring Unavailable Teja, Jose J Primary Care Unavailable Bernardino Briceno Attending Unavailable Bernardino Briceno Consulting Unavailable Bernardino Briceno Admitting Unavailable Teja, Jose J Primary Care Unavailable Jose J Lezama Referring Unavailable Taylor Montes Attending Unavailable TejaJose J Primary Care Unavailable Taylor Montes Attending Unavailable Teja, Jose J Referring Unavailable Jacqueline FROST, Bam Cisneros Attending Unavailable Jose J Lezama Primary Care Unavailable TejaJose J rodriguez Referring Unavailable TejaJose J rodriguez Primary Care Unavailable Karuna BANKING PARALEGAL, Renetta Referring Unavailable Karuna BANKING PARALEGAL, Renetta Attending Unavailable Galileo Meredith Attending Unavailable Teja Jose J Primary Care Unavailable Allergies Allergy Classification Reported Allergen(s) Allergy Type Date of Onset Reaction(s) Facility (20 sources) Adhesive Tape; Translations: [adhesive tape] Propensity to adverse reactions 2 [facility] (20 sources) Latex Allergy to substance 2 [facility] (20 sources) Ticagrelor Drug Allergy 2 Shortness of breath [facility] (3 sources) Morphine Drug Allergy 4 [facility] (1 source) Latex Drug allergy (disorder) 5 [facility] (1 source) Morphine Drug Allergy 5 [facility] (1 source) Ticagrelor Drug Allergy 5 [facility] Medications Current Medications Medication Drug Class(es) Dates Sig (Normalized) Sig (Original) acetaminophen 500 mg oral capsule (1 source) Start: 05-02-2024 albuterol 0.83 mg/ml inhalation solution (20 sources) beta2-Adrenergic Agonist Start: 02-13-2024 Start: 05-12-2019 End: 07-28-2019 Start: 05-12-2019 End: 07-28-2019 Start: 05-12-2019 End: 07-28-2019 take 1 puff(s) by inhalation every four hours Albuterol Sulfate Discontinued 2 PUFF INHALATION Q4H May 12, 2019 12:00am July 28, 2019 10:57am administer with spacer aspirin 81 mg delayed release oral tablet (20 sources) Platelet Aggregation Inhibitor, Nonsteroidal Anti-inflammatory Drug Start: 01-01-2019 End: 02-18-2023 Start: 04-24-2016 End: 08-30-2017 benzonatate 100 mg oral caps ule (2 sources) Non-narcotic Antitussive Start: 02-13-2024 bisacodyl 10 mg rectal suppo sitory (2 sources) Stimulant Laxative Start: 06-12-2023 cholecalciferol 0.025 mg ora l capsule (20 sources) Vitamin D Start: 07-28-2019 End: 06-20-2021 Start: 07-28-2019 End: 06-20-2021 take 1 capsule by mouth every other day Cholecalciferol (Vitamin D3) (Vitamin D3) 25 mcg (1,000 unit) capsule Active 25 MCG PO EVERY OTHER DAY June 20, 2021 1:34pm Start: 04-21-2017 End: 02-23-2018 Start: 04-21-2017 End: 01-29-2018 take 1 tablet by mouth once daily Cholecalciferol (Vitamin D3) Discontinued 1000 UNIT PO TWICE A DAY April 21, 2017 12:00am January 29, 2018 4:47pm 1000 Unit, 2 tablets PO QDAY clopidogrel 75 mg oral tablet (20 sources) P2Y12 Platelet Inhibitor Start: 02-28-2022 take 75 mg by mouth once daily Clopidogrel Active 75 MG PO DAILY February 28, 2022 1:00am Start: 12-20-2018 End: 10-08-2021 Start: 08-30-2017 End: 09-08-2018 DULoxetine 60 mg delayed release oral capsule (20 sources) Serotonin and Norepinephrine Reuptake Inhibitor Start: 12-30-2023 Start: 11-14-2021 End: 06-12-2023 Start: 12-20-2018 End: 11-14-2021 empagliflozin 25 mg oral tab let (17 sources) Sodium-Glucose Cotransporter 2 Inhibitor Start: 04-15-2024 Start: 02-06-2023 End: 06-12-2023 Start: 02-06-2023 Start: 08-29-2022 End: 12-05-2022 Start: 08-29-2022 End: 12-05-2022 gabapentin 100 mg oral capsu le (20 sources) Anti-epileptic Agent Start: 05-02-2024 Start: 01-01-2019 End: 02-21-2023 Start: 05-09-2016 End: 09-08-2017 12 hr guaiFENesin 600 mg ext ended release oral tablet (2 sources) Start: 05-02-2024 insulin lispro 100 unt/ml in jectable solution (20 sources) Insulin Analog Start: 05-02-2024 Start: 02-07-2023 End: 02-21-2023 Start: 02-07-2023 End: 02-21-2023 Start: 05-23-2022 Insulin Lispro (Humalog Kwikpen Insulin) 100 unit/mL insulin pen Active 27 UNIT SC 3 TIMES DAILY NEEDED May 23, 2022 9:44am Start: 04-18-2022 End: 05-23-2022 Insulin Lispro (Humalog Kwik pen Insulin) 100 unit/mL insulin pen Discontinued 35 UNIT SC THREE TIMES A DAY 94.5 April 18, 2022 2:34pm May 23, 2022 9:44am Start: 04-18-2022 End: 04-18-2022 Insulin Lispro (Humalog Kwik pen Insulin) 100 unit/mL insulin pen Discontinued 24 UNIT SC THREE TIMES A DAY April 18, 2022 2:09pm April 18, 2022 2:36pm Start: 11-14-2021 End: 04-18-2022 Insulin Lispro (Humalog Kwik pen Insulin) 100 unit/mL insulin pen Discontinued 20 UNIT SC THREE TIMES A DAY November 14, 2021 2:26pm April 18, 2022 2:11pm Start: 06-25-2021 End: 11-14-2021 Insulin Lispro (Humalog Kwik pen Insulin) 100 unit/mL insulin pen Discontinued 35 UNIT SC THREE TIMES A DAY 31.5 June 25, 2021 12:00am November 14, 2021 2:28pm Start: 02-06-2021 End: 06-20-2021 Insulin Lispro (Humalog Kwik pen Insulin) 100 unit/mL insulin pen Discontinued 15 UNIT SC THREE TIMES DAILY BEFORE MEALS March 09, 2021 1:43pm June 20, 2021 1:40pm Start: 01-08-2021 End: 01-25-2021 Insulin Lispro (Humalog Kwik pen Insulin) 100 unit/mL insulin pen Discontinued 30 UNIT SC THREE TIMES A DAY January 08, 2021 1:52pm January 25, 2021 3:12pm Start: 01-08-2021 End: 06-12-2023 Start: 01-08-2021 End: 01-08-2021 Insulin Lispro (Humalog Kwik pen Insulin) 100 unit/mL insulin pen Discontinued 15 UNIT SC THREE TIMES A DAY January 08, 2021 1:00am January 08, 2021 1:52pm Start: 12-24-2018 End: 01-08-2021 Start: 12-24-2018 End: 01-08-2021 Start: 12-24-2018 End: 01-08-2021 Insulin Lispro Discontinued 0 SC 4 TIMES DAILY July 28, 2019 10:57am January 08, 2021 1:51pm sliding scale subcut 4 times daily PRN; Start: 09-08-2017 End: 01-29-2018 Insulin Lispro Discontinued 24 UNIT SC 1600 September 08, 2017 12:00am January 29, 2018 4:47pm Start: 09-08-2017 End: 01-29-2018 Insulin Lispro Discontinued 30 UNIT SC 1100 September 08, 2017 12:00am January 29, 2018 4:47pm Start: 09-08-2017 End: 01-29-2018 Insulin Lispro Discontinued 28 UNIT SC 0700 September 08, 2017 12:00am January 29, 2018 4:47pm Start: 08-30-2017 End: 09-08-2017 Insulin Lispro (Humalog Kwik pen Insulin) 100 UNIT/ML Insuln.Pen Discontinued 20 UNIT SC THREE TIMES DAILY BEFORE MEALS August 30, 2017 11:27am September 08, 2017 5:15pm Start: 08-25-2017 End: 09-30-2018 lidocaine 0.04 mg/mg medicated patch (20 sources) Antiarrhythmic, Amide Local Anesthetic Start: 06-12-2023 Start: 09-28-2021 End: 11-12-2021 Start: 09-28-2021 End: 11-12-2021 Start: 09-28-2021 End: 11-12-2021 apply 1 dose topically once daily Lidocaine Discontinued 1 PATCH TOPICAL DAILY 7 September 28, 2021 12:00am November 12, 2021 2:27pm loratadine 10 mg oral tablet (2 sources) Start: 09-15-2023 meclizine hydrochloride 12.5 mg oral tablet (2 sources) Antiemetic Start: 06-12-2023 memantine hydrochloride 5 mg oral tablet (7 sources) J-wvwidg-A-aspartate Receptor Antagonist Start: 06-12-2023 End: 09-15-2023 Start: 02-19-2023 End: 06-12-2023 Start: 02-19-2023 menthol 0.04 mg/mg topical gel (2 sources) Start: 06-12-2023 24 hr metFORMIN hydrochloride 500 mg extended release oral tablet (20 sources) Biguanide Start: 01-25-2021 take 1000 mg by mouth twice daily Metformin Active 1000 MG PO TWICE A DAY January 25, 2021 3:08pm Start: 12-20-2018 End: 12-08-2020 Start: 08-25-2017 End: 09-30-2018 Start: 06-14-2013 End: 09-19-2014 mineral oil 1000 mg/ml enema (2 sources) Start: 06-12-2023 nitroglycerin 0.4 mg subling ual tablet (20 sources) Nitrate Vasodilator Start: 09-28-2019 End: 08-20-2022 Start: 09-28-2019 End: 08-20-2022 Start: 09-28-2019 Nitroglycerin Active 0.4 MG SL Q5M September 28, 2019 12:00am do not exceed 3 doses per episode 24 hr oxybutynin chloride 5 mg extended release oral tablet (20 sources) Cholinergic Muscarinic Antagonist Start: 05-02-2024 Start: 09-15-2023 End: 05-02-2024 Start: 03-23-2019 End: 06-12-2023 oxyCODONE hydrochloride 5 mg oral tablet (20 sources) Opioid Agonist Start: 05-24-2022 take 5-10 mg by mouth every four hours Oxycodone Active 5 - 10 MG PO Q4H 25 5 May 24, 2022 Start: 04-21-2016 End: 04-24-2016 take 15 mg by mouth every twelve hours as needed Oxycodone Discontinued 15 MG PO EVERY 12 HOURS NEEDED April 21, 2016 1:00am April 24, 2016 11:38am Start: 06-14-2013 End: 06-15-2013 Rollator w/extended arms (7 sources) Start: 07-01-2022 Rollator w/ext ended arms Active 0 .Route .MEDSUPPLY July 01, 2022 11:43am Use as directed for walking Start: 07-01-2022 End: 05-22-2023 Rollator w/extended arms Dis continued 0 .Route .MEDSUPPLY 1 July 01, 2022 11:42am July 01, 2022 11:44am Use as directed for walking Start: 07-01-2022 End: 07-01-2022 Rollator w/extended arms Dis continued 0 .Route .MEDSUPPLY July 01, 2022 11:41am July 01, 2022 11:43am Use as directed for walking Start: 07-01-2022 End: 07-01-2022 Rollator w/extended arms Dis continued 0 .Route .MEDSUPPLY 1 July 01, 2022 12:00am July 01, 2022 11:42am Use as directed for walking Semaglutide (2 sources) Start: 04-01-2024 traMADol hydrochloride 50 mg oral tablet (1 source) Opioid Agonist Start: 05-02-2024 traZODone hydrochloride 50 m g oral tablet (3 sources) Serotonin Reuptake Inhibitor Start: 05-02-2024 Start: 06-12-2023 End: 05-02-2024 (20 sources) Start: 02-13-2024 Start: 02-13-2024 End: 05-02-2024 Start: 09-15-2023 End: 11-11-2023 Start: 06-12-2023 Start: 02-07-2023 End: 02-21-2023 Start: 11-08-2022 Start: 07-01-2022 End: 07-01-2022 Start: 07-01-2022 End: 07-01-2022 Start: 07-01-2022 End: 07-01-2022 Start: 05-09-2016 End: 04-22-2017 Start: 04-21-2016 End: 04-24-2016 Completed/Discontinued Medications Medication Drug Class(es) Dates Sig (Normalized) Sig (Original) acetaminophen 500 mg / diphenhydrAMINE hydrochloride 25 mg oral tablet (20 sources) Histamine-1 Receptor Antagonist Start: 04-18-2022 End: 02-18-2023 Start: 04-18-2022 End: 02-18-2023 Start: 03-23-2019 End: 09-28-2021 Start: 03-23-2019 End: 09-28-2021 acetaminophen 325 mg / HYDRO codone bitartrate 5 mg oral tablet (20 sources) Opioid Agonist Start: 07-02-2021 End: 11-12-2021 Start: 07-02-2021 End: 11-12-2021 Start: 07-02-2021 End: 11-12-2021 take 1 tablet by mouth every six hours Hydrocodone-Acetaminophen Discontinued 1 TABLET PO EVERY 6 HOURS 12 July 02, 2021 November 12, 2021 2:26pm acetaminophen 325 mg / oxyCO DONE hydrochloride 5 mg oral tablet (20 sources) Opioid Agonist Start: 08-01-2021 End: 09-28-2021 Start: 08-01-2021 End: 09-28-2021 Start: 08-01-2021 End: 09-28-2021 take 1 tablet by mouth every six hours as needed Oxycodone-Acetaminophen Discontinued 1 TABLET PO EVERY 6 HOURS NEEDED 20 August 01, 2021 September 28, 2021 11:04am amiodarone hydrochloride 200 mg oral tablet (20 sources) Antiarrhythmic Start: 09-28-2021 End: 04-18-2022 Start: 09-28-2021 End: 10-08-2021 take 200 mg by mouth twice daily Amiodarone Discontinued 200 MG PO TWICE A DAY 14 September 28, 2021 12:00am October 08, 2021 2:05pm amitriptyline hydrochloride 25 mg oral tablet (20 sources) Tricyclic Antidepressant Start: 06-14-2013 End: 06-15-2013 Start: 06-14-2013 End: 06-15-2013 Start: 06-14-2013 End: 06-15-2013 take 25 mg by mouth at bedtime Amitriptyline Discontin ued 25 MG PO AT BEDTIME June 14, 2013 12:00am June 15, 2013 2:59pm amLODIPine 10 mg oral tablet (20 sources) Dihydropyridine Calcium Channel Pancho Start: 11-12-2021 End: 06-06-2022 Start: 12-20-2018 End: 09-28-2021 Start: 02-11-2018 End: 11-02-2018 Start: 08-30-2017 End: 02-11-2018 Start: 03-07-2015 End: 09-27-2015 apixaban 2.5 mg oral tablet (20 sources) Factor Xa Inhibitor Start: 09-28-2021 End: 05-30-2022 atorvastatin 40 mg oral tabl et (20 sources) HMG-CoA Reductase Inhibitor Start: 05-10-2020 End: 02-18-2023 Start: 04-28-2019 End: 10-27-2019 take 80 mg by mouth at bedtime Atorvastatin Discontinu ed 80 MG PO AT BEDTIME April 28, 2019 8:42am October 27, 2019 2:01pm Start: 04-01-2019 End: 10-27-2019 Start: 03-24-2019 End: 03-24-2019 take 80 mg by mouth at bedtime Atorvastatin Discontinu ed 80 MG PO AT BEDTIME 0 March 24, 2019 1:09pm March 24, 2019 1:10pm Start: 03-24-2019 End: 04-01-2019 Start: 03-24-2019 End: 04-01-2019 Start: 03-24-2019 End: 04-01-2019 take 80 mg by mouth at bedtime Atorvastatin Discontinu ed 80 MG PO AT BEDTIME March 24, 2019 1:00am April 01, 2019 12:34pm Start: 12-20-2018 End: 03-24-2019 Start: 05-09-2016 End: 07-31-2018 Start: 02-26-2016 End: 03-05-2016 Start: 02-26-2016 End: 03-05-2016 Start: 02-26-2016 End: 03-05-2016 take 20 mg by mouth at bedtime Atorvastatin Discontinu ed 20 MG PO AT BEDTIME February 26, 2016 1:00am March 05, 2016 2:07pm cephalexin 500 mg oral capsu le (16 sources) Cephalosporin Antibacterial Start: 05-24-2022 End: 06-06-2022 dapagliflozin 5 mg oral tabl et (17 sources) Sodium-Glucose Cotransporter 2 Inhibitor Start: 01-17-2022 End: 02-14-2022 ergocalciferol 1.25 mg oral capsule (20 sources) Provitamin D2 Compound Start: 05-07-2016 End: 04-22-2017 Start: 05-07-2016 End: 04-22-2017 Start: 05-07-2016 End: 04-22-2017 Ergocalciferol (Vitamin D2) Discontinued 35121 UNIT PO TUSA May 07, 2016 12:00am April 22, 2017 11:45am Start: 03-06-2015 End: 03-05-2016 Start: 03-06-2015 End: 03-05-2016 Start: 03-06-2015 End: 03-05-2016 Ergocalciferol (Vitamin D2) (Vitamin D2) 50,000 UNIT capsule Discontinued 82221 UNIT PO TUSA March 06, 2015 1:00am March 05, 2016 2:16pm furosemide 20 mg oral tablet (20 sources) Loop Diuretic Start: 02-03-2023 End: 05-02-2024 Start: 08-20-2022 End: 02-21-2023 Start: 11-14-2021 End: 08-20-2022 Start: 11-14-2021 End: 02-14-2022 take 1 tablet by mouth once daily as needed Furosemide Discontinued 20 MG PO DAILY November 14, 2021 12:00am February 14, 2022 3:47pm and may take 1 tab extra as needed Start: 02-06-2021 End: 11-14-2021 Start: 02-06-2021 End: 06-20-2021 Furosemide (Lasix) 40 mg tab let Discontinued 40 MG PO .COMPLEX 180 April 04, 2021 2:23pm June 20, 2021 1:43pm 40 mg PO once daily: may need to take twice daily if weight gain, SOB, or swelling.; Start: 12-20-2018 End: 01-25-2021 Start: 12-20-2018 End: 01-25-2021 take 20 mg by mouth once daily Furosemide Discontinued 20 MG PO DAILY December 20, 2018 1:00am January 25, 2021 3:11pm Start: 04-21-2016 End: 04-24-2016 Start: 04-21-2016 End: 04-24-2016 take 40 mg by mouth once daily Furosemide Discontinued 40 MG PO DAILY April 21, 2016 1:00am April 24, 2016 11:39am glimepiride 4 mg oral tablet (20 sources) Sulfonylurea Start: 06-14-2013 End: 09-19-2014 hydrALAZINE hydrochloride 10 0 mg oral tablet (20 sources) Arteriolar Vasodilator Start: 08-20-2022 End: 05-02-2024 Start: 04-18-2022 End: 08-29-2022 Start: 04-18-2022 take 50 mg by mouth three times daily Hydralazine Active 50 MG PO THREE TIMES A DAY April 18, 2022 1:00am Start: 02-14-2022 End: 04-18-2022 Start: 12-20-2018 End: 02-14-2022 Start: 12-20-2018 End: 02-14-2022 take 50 mg by mouth three times daily Hydralazine Discontinued 50 MG PO THREE TIMES A DAY December 20, 2018 1:00am February 14, 2022 4:25pm Start: 01-29-2018 End: 02-23-2018 take 50 mg by mouth once Hydralazine Discontinued 50 MG PO ONCE 90 January 29, 2018 4:43pm February 23, 2018 10:33am Start: 04-22-2017 End: 02-23-2018 Start: 05-09-2016 End: 01-29-2018 take 50 mg by mouth three times daily Hydralazine Discontinued 50 MG PO THREE TIMES A DAY 270 90 April 22, 2017 12:00am January 29, 2018 4:47pm Start: 03-07-2015 End: 09-27-2015 Start: 03-07-2015 End: 09-27-2015 take 50 mg by mouth three times daily Hydralazine Discontinued 50 MG PO THREE TIMES A DAY 90 March 07, 2015 1:00am September 27, 2015 10:14am hydroCHLOROthiazide 25 mg or al tablet (20 sources) Thiazide Diuretic Start: 03-06-2015 End: 09-27-2015 Start: 03-06-2015 End: 03-07-2015 take 50 mg by mouth once daily Hydrochlorothiazide Discontinued 50 MG PO DAILY March 06, 2015 1:00am March 07, 2015 6:11pm Start: 03-12-2014 End: 09-19-2014 Start: 03-12-2014 End: 09-19-2014 take 25 mg by mouth once daily Hydrochlorothiazide Discontinued 25 MG PO DAILY March 12, 2014 1:00am September 19, 2014 2:11pm 3 ml insulin aspart, human 1 00 unt/ml pen injector (20 sources) Insulin Analog Start: 09-19-2014 End: 03-06-2015 Start: 09-19-2014 End: 03-06-2015 Start: 09-19-2014 End: 03-06-2015 Insulin Aspart U-100 (Novolo g Flexpen U-100 Insulin) 100 UNITS/ML Flexpen Discontinued 1 - 7 UNITS SC 4 TIMES DAILY WITH MEALS 1 September 19, 2014 12:00am March 06, 2015 5:34pm Sliding Scale Insulin: 1 [id number], 2 o=[phone], 3 u= [phone], 4 t=701-113, 5 r=[phone], 6 a=[phone], 7 x=[phone], call MD for BS > 449 for directions. 3 ml insulin glargine 100 unt/ml pen injector (20 sources) Insulin Analog Start: 06-06-2022 Insulin Glargi ne (Lantus Solostar U-100 Insulin) 100 unit/mL (3 mL) insulin pen Active 27 UNIT SC EVERY EVENING June 06, 2022 2:47pm Start: 06-06-2022 Insulin Glargi ne (Lantus Solostar U-100 Insulin) 100 unit/mL (3 mL) insulin pen Active 35 UNIT SC EVERY EVENING June 06, 2022 2:47pm Start: 04-18-2022 Insulin Glargi ne (Lantus Solostar U-100 Insulin) 100 unit/mL (3 mL) insulin pen Active 34 UNIT SC EVERY EVENING April 18, 2022 2:09pm Start: 11-30-2021 End: 06-06-2022 Insulin Glargine (Lantus Francesca ostar U-100 Insulin) 100 unit/mL (3 mL) insulin pen Discontinued 32 UNIT SC EVERY EVENING April 18, 2022 2:09pm June 06, 2022 2:49pm Start: 11-14-2021 End: 11-30-2021 Insulin Glargine (Lantus Francesca ostar U-100 Insulin) 100 unit/mL (3 mL) insulin pen Discontinued 28 UNIT SC EVERY EVENING November 14, 2021 2:26pm November 30, 2021 1:27pm Start: 06-20-2021 End: 11-14-2021 Insulin Glargine (Lantus Francesca ostar U-100 Insulin) 100 unit/mL (3 mL) insulin pen Discontinued 72 UNIT SC EVERY EVENING June 20, 2021 1:39pm November 14, 2021 2:28pm Start: 06-16-2021 End: 06-20-2021 Insulin Glargine (Lantus Francesca ostar U-100 Insulin) 100 unit/mL (3 mL) insulin pen Discontinued 46 UNITS SC DAILY June 16, 2021 6:01pm June 20, 2021 1:43pm Start: 04-26-2021 End: 06-16-2021 Insulin Glargine (Lantus Francesca ostar U-100 Insulin) 100 unit/mL (3 mL) insulin pen Discontinued 45 UNIT SC DAILY April 26, 2021 3:44pm June 16, 2021 6:02pm Start: 02-06-2021 End: 07-17-2023 Start: 02-06-2021 End: 01-30-2023 Start: 02-06-2021 End: 04-26-2021 Insulin Glargine (Lantus Francesca ostar U-100 Insulin) 100 unit/mL (3 mL) Insulin Pen Discontinued 45 UNITS SC 1100,2200 February 06, 2021 1:00am April 26, 2021 3:45pm Start: 01-25-2021 End: 02-06-2021 Insulin Glargine Discontinue d 33 UNIT SC WITH BREAKFAST January 25, 2021 3:10pm February 06, 2021 12:44pm Start: 05-10-2020 End: 01-25-2021 Insulin Glargine Discontinue d 64 UNIT SC WITH BREAKFAST May 10, 2020 11:09am January 25, 2021 3:12pm Start: 12-24-2018 End: 02-06-2021 Start: 12-24-2018 End: 02-06-2021 Start: 12-24-2018 End: 05-10-2020 Insulin Glargine Discontinue d 46 UNITS SC WITH BREAKFAST December 24, 2018 1:00am May 10, 2020 11:10am Start: 01-29-2018 End: 09-30-2018 Insulin Glargine Discontinue d 60 UNIT SC WITH BREAKFAST January 29, 2018 4:46pm September 30, 2018 8:43am Start: 09-08-2017 End: 01-29-2018 Insulin Glargine Discontinue d 40 UNITS SC DAILY September 08, 2017 12:00am January 29, 2018 4:46pm Start: 09-08-2017 End: 01-29-2018 Insulin Glargine Discontinue d 52 UNITS SC AT BEDTIME September 08, 2017 12:00am January 29, 2018 4:47pm Start: 08-30-2017 End: 09-08-2017 Insulin Glargine (Lantus Francesca ostar U-100 Insulin) 100 UNITS/ML Pen Discontinued 50 UNITS SC TWICE A DAY August 30, 2017 11:27am September 08, 2017 5:15pm Start: 08-25-2017 End: 09-30-2018 Start: 08-25-2017 End: 09-30-2018 Start: 03-12-2014 End: 09-19-2014 Start: 03-12-2014 End: 09-19-2014 Start: 03-12-2014 End: 09-19-2014 Insulin Glargine (Lantus Francesca ostar Pen) 100 UNITS/ML Pen Discontinued 36 UNITS SC AT BEDTIME March 12, 2014 1:00am September 19, 2014 2:11pm 3 ml insulin isophane, human 100 unt/ml pen injector (16 sources) Start: 06-20-2022 End: 12-05-2022 Start: 06-20-2022 End: 12-05-2022 Start: 06-20-2022 Insulin Nph Is oph U-100 Human (Novolin N Flexpen) 100 unit/mL (3 mL) insulin pen Active 7 UNIT SC BEDTIME June 20, 2022 12:00am 24 hr isosorbide mononitrate 60 mg extended release oral tablet (20 sources) Nitrate Vasodilator Start: 06-12-2021 End: 03-11-2024 Start: 06-12-2021 End: 02-14-2022 Start: 05-10-2020 End: 06-12-2021 Start: 05-10-2020 End: 12-14-2020 take 30 mg by mouth once daily Isosorbide Mononitrate Discontinued 30 MG PO DAILY May 29, 2020 4:37pm December 14, 2020 3:03pm Start: 08-10-2019 End: 05-10-2020 Start: 08-10-2019 End: 05-10-2020 Start: 12-20-2018 End: 08-10-2019 Start: 12-20-2018 End: 08-10-2019 take 30 mg by mouth once daily Isosorbide Mononitrate Discontinued 30 MG PO DAILY May 13, 2019 10:04am August 10, 2019 12:13pm Start: 04-23-2017 End: 03-23-2018 Start: 04-23-2017 End: 03-23-2018 take 30 mg by mouth once daily Isosorbide Mononitrate Discontinued 30 MG PO daily June 30, 2017 4:32pm August 25, 2017 3:16pm Start: 04-22-2017 End: 04-23-2017 Start: 04-22-2017 End: 04-23-2017 Start: 04-21-2017 End: 04-22-2017 Start: 04-21-2017 End: 04-22-2017 take 30 mg by mouth once daily Isosorbide Mononitrate Discontinued 30 MG PO daily April 21, 2017 12:00am April 22, 2017 11:58am lansoprazole 30 mg delayed r elease oral capsule (20 sources) Proton Pump Inhibitor Start: 12-08-2020 End: 11-12-2021 Start: 12-20-2018 End: 05-10-2020 levothyroxine sodium 0.05 mg oral tablet (20 sources) l-Thyroxine Start: 05-10-2020 End: 02-18-2023 Start: 12-20-2018 End: 05-10-2020 Start: 12-20-2018 End: 10-27-2019 take 88 ug by mouth once daily Levothyroxine Discontin ued 88 MCG PO DAILY December 20, 2018 1:00am October 27, 2019 2:01pm 3 ml liraglutide 6 mg/ml pen injector (20 sources) GLP-1 Receptor Agonist Start: 06-14-2013 End: 09-19-2014 Start: 06-14-2013 End: 09-19-2014 Start: 06-14-2013 End: 09-19-2014 Liraglutide (Victoza 2-Malachi) 0.6 MG/0.1 ML Ml Discontinued 0.6 MG SQ BEFORE MEALS AND AT BEDTIME June 14, 2013 12:00am September 19, 2014 2:11pm lisinopril 20 mg oral tablet (20 sources) Angiotensin Converting Enzyme Inhibitor Start: 06-20-2021 End: 09-28-2021 Start: 12-08-2020 take 20 mg by mouth once daily Lisinopril Active 20 MG PO DAILY December 08, 2020 10:49am Start: 01-01-2019 End: 01-01-2019 Start: 04-22-2017 End: 09-08-2018 Start: 04-21-2016 End: 04-22-2017 Start: 06-14-2013 End: 03-07-2015 losartan potassium 100 mg or al tablet (20 sources) Angiotensin 2 Receptor Pancho Start: 03-06-2015 End: 03-07-2015 meloxicam 7.5 mg oral tablet (20 sources) Nonsteroidal Anti-inflammatory Drug Start: 03-12-2014 End: 09-19-2014 metoprolol tartrate 25 mg or al tablet (20 sources) beta-Adrenergic Pancho Start: 02-07-2023 End: 09-15-2023 Start: 11-04-2022 End: 02-18-2023 Start: 01-25-2021 End: 08-20-2022 Start: 01-25-2021 End: 02-28-2022 Start: 12-20-2018 End: 11-09-2020 Start: 12-20-2018 End: 11-09-2020 take 50 mg by mouth twice daily Metoprolol Tartrate Discontinued 50 MG PO TWICE A DAY December 20, 2018 1:00am November 09, 2020 2:49pm Start: 04-24-2016 End: 08-04-2017 Start: 04-24-2016 End: 04-22-2017 take 12.5 mg by mouth twice daily Metoprolol Tartrate Discontinued 12.5 MG PO TWICE A DAY 60 April 24, 2016 12:00am April 22, 2017 11:48am morphine sulfate 15 mg exten ded release oral tablet (20 sources) Opioid Agonist Start: 08-25-2017 End: 01-29-2018 Start: 06-14-2013 End: 06-15-2013 NIFEdipine 60 mg osmotic 24 hr extended release oral tablet (17 sources) Dihydropyridine Calcium Channel Pancho Start: 06-06-2022 End: 06-06-2022 nortriptyline 25 mg oral capsule (20 sources) Tricyclic Antidepressant Start: 06-14-2013 End: 06-15-2013 Start: 06-14-2013 End: 06-15-2013 Start: 06-14-2013 End: 06-15-2013 take 25 mg by mouth at bedtime Nortriptyline Discontin ued 25 MG PO AT BEDTIME June 14, 2013 12:00am June 15, 2013 3:00pm nystatin 100 unt/mg topical powder (20 sources) Polyene Antifungal Start: 02-06-2021 End: 06-20-2021 Start: 02-06-2021 End: 06-20-2021 Start: 02-06-2021 End: 06-20-2021 Nystatin Discontinued 1 APPL IC TOPICAL TWICE A DAY February 06, 2021 12:53pm June 20, 2021 1:41pm ondansetron 4 mg oral tablet (20 sources) Serotonin-3 Receptor Antagonist Start: 05-07-2016 End: 04-22-2017 potassium chloride 20 meq extended release oral tablet (20 sources) Start: 02-14-2022 End: 06-06-2022 Start: 05-09-2016 End: 05-12-2016 Start: 04-21-2016 End: 04-24-2016 12 hr ranolazine 500 mg exte nded release oral tablet (20 sources) Anti-anginal Start: 08-15-2022 End: 12-05-2022 Start: 02-28-2021 End: 10-01-2021 rivaroxaban 15 mg oral table t (16 sources) Factor Xa Inhibitor Start: 05-30-2022 End: 05-31-2022 Vibegron (2 sources) Start: 06-12-2023 End: 09-15-2023 warfarin sodium 4 mg oral ta blet (20 sources) Vitamin K Antagonist Start: 05-31-2022 End: 02-21-2023 Problems Active Problems Problem Classification Problem Date Documented Da te Episodic/Chronic Abdominal pain (20 sources) Abdominal pain; Translations: [Unspecified abdominal pain] Episodic Acute and unspecified renal failure (16 sources) Acute renal failure syndrome; Translations: [Acute kidney failure, unspecified] 12-06-2022 Episodic Cancer of kidney and renal pelvis (20 sources) Malignant tumor of kidney; Translations: [Malignant neoplasm of unspecified kidney, except renal pelvis] 03-24-2019 Chronic Cardiac dysrhythmias (20 sources) Atrial fibrillation; Translations: [Unspecified atrial fibrillation] Chronic Cardiac dysrhythmias (3 sources) Bradycardia; Translations: [Bradycardia, unspecified] 02-11-2023 Episodic Chronic kidney disease (20 sources) Chronic renal failure; Translations: [Chronic renal failure, stage 3 (moderate)] Chronic Chronic kidney disease (2 sources) Chronic kidney disease; Translations: [Chronic kidney disease, stage 3b] Onset: 5 Coagulation and hemorrhagic disorders (20 sources) Blood coagulation disorder; 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] 09-01-2022 Chronic Conditions associated with dizziness or vertigo (20 sources) Peripheral vertigo; Translations: [Other peripheral vertigo, right ear] 06-11-2018 Episodic Congestive heart failure; nonhypertensive (20 sources) Acute exacerbation of chronic congestive heart failure; Translations: [Acute on chronic diastolic (congestive) heart failure] Chronic Coronary atherosclerosis and other heart disease (20 sources) Coronary arteriosclerosis; Translations: [Atherosclerotic heart disease of [place] coronary artery without angina pectoris] Onset: 5 Chronic Diabetes mellitus with complications (20 sources) Hyperglycemia due to diabetes mellitus; Translations: [Type 2 diabetes mellitus with hyperglycemia] Onset: 5 11-30-2022 Chronic Diabetes mellitus without complication (20 sources) Type 2 diabetes mellitus; Translations: [Type 2 diabetes mellitus without complications] Onset: 5 Chronic Diabetes mellitus without complication (20 sources) Hyperglycemia; Translations: [Hyperglycemia, unspecified] 06-05-2022 Episodic Diseases of mouth; excluding dental (20 sources) Bleeding from mouth; Translations: [Other lesions of oral mucosa] 10-09-2021 Episodic Diseases of white blood cells (20 sources) Leukocytosis; Translations: [Elevated white blood cell count, unspecified] Chronic Disorders of lipid metabolism (20 sources) Pure hypercholesterolemia; Translations: [Pure hypercholesterolemia, unspecified] Chronic E Codes: Fall (20 sources) Accidental fall ; Translations: [Unspecified fall, initial encounter] 07-10-2021 Episodic Esophageal disorders (20 sources) Gastroesophageal reflux disease; Translations: [Gastro-esophageal reflux disease without esophagitis] 08-09-2019 Chronic Essential hypertension (20 sources) Elevated blood pressure; Translations: [Essential (primary) hypertension] Onset: 5 Chronic Fluid and electrolyte disorders (20 sources) Hyperkalemia; Translations: [Hyperkalemia] 04-18-2022 Episodic Gastrointestinal hemorrhage (20 sources) Rectal hemorrhage; Translations: [Hemorrhage of anus and rectum] Episodic Genitourinary symptoms and ill-defined conditions (20 sources) Microalbuminuria; Translations: [Proteinuria, unspecified] Episodic Headache; including migraine (12 sources) Headache; Translations: [Headache] 12-06-2022 Episodic Joint disorders and dislocations; trauma-related (20 sources) Other tear of medial meniscus, current injury, unspecified knee, initial encounter; Translations: [Tear of medial cartilage or meniscus of knee, current] Episodic Malaise and fatigue (20 sources) Asthenia; Translations: [Other malaise] 06-10-2018 Episodic Nausea and vomiting (20 sources) Nausea; Translations: [Nausea] Episodic Nonspecific chest pain (20 sources) Chest pain; Translations: [Chest pain, unspecified] 08-09-2019 Episodic Nutritional deficiencies (2 sources) Vitamin D deficiency; Translations: [Vitamin D deficiency, unspecified] 10-20-2023 Chronic Occlusion or stenosis of precerebral arteries (20 sources) Left carotid artery stenosis; Translations: [Occlusion and stenosis of left carotid artery] Chronic Open wounds of extremities (12 sources) Avulsion of skin; Translations: [Unspecified open wound of unspecified toe(s) without damage to nail, initial encounter] 09-01-2022 Episodic Osteoarthritis (20 sources) Osteoarthritis of left knee joint; Translations: [Unilateral primary osteoarthritis, left knee] Chronic Other aftercare (20 sources) Long-term current use of drug therapy; Translations: [Other senior living (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] 06-10-2018 Episodic Other aftercare (20 sources) Drug therapy finding; Translations: [watermelon inspector (current) use of anticoagulants] 10-09-2021 Episodic Other aftercare (20 sources) Long-term current use of anticoagulant; Translations: [penitentiary (current) use of anticoagulants] 05-31-2022 Episodic Other aftercare (3 sources) watermelon inspector (current) use of anticoagulants; Translations: [Long-term (current) use of anticoagulants] 07-18-2022 Episodic Other aftercare (7 sources) Anticoagulant effect; Translations: [penitentiary (current) use of anticoagulants] 12-04-2022 Episodic Other aftercare (2 sources) penitentiary (current) use of insulin; Translations: [penitentiary (current) use of insulin] Onset: Episodic Other circulatory disease (10 sources) H/O: heart disorder; Translations: [Personal history of other diseases of the circulatory system] 11-20-2022 Episodic Other circulatory disease (1 source) Personal history of other diseases of the circulatory system; Translations: [Personal history of other diseases of circulatory system] 11-21-2022 Episodic Other circulatory disease (3 sources) Transient hypotension; Translations: [Hypotension, unspecified] 02-11-2023 Episodic Other circulatory disease (3 sources) History of cerebrovascular accident; Translations: [Personal history of transient ischemic attack (TIA), and cerebral infarction without residual deficits] 02-11-2023 Episodic Other circulatory disease (4 sources) Orthostatic hypotension; Translations: [Orthostatic hypotension] 05-02-2024 Episodic Other connective tissue disease (19 sources) Pain in lower limb; Translations: [Pain in leg, unspecified] 09-22-2021 Episodic Other connective tissue disease (4 sources) Pain in leg, unspecified; Translations: [Pain in limb] Episodic Other connective tissue disease (1 source) Other bursitis of knee, left knee; Translations: [Pes anserinus tendinitis or bursitis] Episodic Other connective tissue disease (5 sources) Recurrent falls ; Translations: [Repeated falls] 02-18-2023 Episodic Other diseases of kidney and ureters (3 sources) Chronic renal insufficiency; Translations: [Disorder of kidney and ureter, unspecified] 02-11-2023 Episodic Other diseases of veins and lymphatics (4 sources) Peripheral venous insufficiency; Translations: [Venous insufficiency (chronic) (peripheral)] 11-11-2023 Episodic Other ear and sense organ disorders (20 sources) Impacted cerumen; Translations: [Impacted cerumen, right ear] 06-11-2018 Episodic Other endocrine disorders (20 sources) Hypoglycemia; Translations: [Hypoglycemia, unspecified] 07-15-2019 Chronic Other eye disorders (20 sources) Third cranial nerve weakness; Translations: [Third [oculomotor] nerve palsy, unspecified eye] 06-10-2018 Episodic Other fractures (20 sources) Fracture of rib; Translations: [Fracture of one rib, left side, initial encounter for closed fracture] 08-09-2021 Episodic Other fractures (20 sources) Fracture of multiple ribs ; Translations: [Multiple fractures of ribs, unspecified side, initial encounter for closed fracture] 10-06-2021 Episodic Other fractures (4 sources) Multiple fractures of ribs, unspecified side, initial encounter for closed fracture; Translations: [Closed fracture of multiple ribs, unspecified] Episodic Other fractures (2 sources) Fracture of left rib; Translations: [Fracture of one rib, left side, initial encounter for closed fracture] 08-09-2021 Episodic Other injuries and conditions due to external causes (20 sources) Closed injury of head; Translations: [Unspecified injury of head, initial encounter] 07-10-2021 Episodic Other injuries and conditions due to external causes (16 sources) History of fall; Translations: [History of falling] 07-01-2022 Episodic Other injuries and conditions due to external causes (12 sources) Wound hemorrhage; Translations: [Other injury of unspecified body region, initial encounter] 09-01-2022 Episodic Other injuries and conditions due to external causes (8 sources) History of falling; Translations: [History of fall] 11-01-2022 Episodic Other injuries and conditions due to external causes (3 sources) Injury of head; Translations: [Unspecified injury of head, initial encounter] 02-18-2023 Episodic Other injuries and conditions due to external causes (1 source) Unspecified injury of head, initial encounter; Translations: [Head injury, unspecified] 02-21-2023 Episodic Other liver diseases (20 sources) Cardiac enzymes abnormal; Translations: [Abnormal levels of other serum enzymes] 10-06-2021 Episodic Other liver diseases (4 sources) Abnormal levels of other serum enzymes; Translations: [Other nonspecific abnormal serum enzyme levels] Episodic Other lower respiratory disease (20 sources) Dyspnea; Translations: [Shortness of breath] 10-27-2019 Episodic Other lower respiratory disease (20 sources) Nodule of lung; Translations: [Solitary pulmonary nodule] 09-30-2018 Episodic Other lower respiratory disease (20 sources) Hypoxia; Translations: [Hypoxemia] 09-21-2021 Episodic Other lower respiratory disease (12 sources) Hypoxemia; Translations: [Hypoxemia] Episodic Other lower respiratory disease (20 sources) Shortness of breath; Translations: [Shortness of breath] Episodic Other lower respiratory disease (20 sources) Dyspnea on exertion; Translations: [Dyspnea, unspecified] 06-24-2021 Episodic Other lower respiratory disease (6 sources) Other forms of dyspnea; Translations: [Other respiratory abnormalities] 07-18-2022 Episodic Other lower respiratory disease (3 sources) History of chronic obstructive airway disease; Translations: [Personal history of other diseases of the respiratory system] 02-11-2023 Episodic Other nervous system disorders (14 sources) Acute postoperative pain; Translations: [Other acute postprocedural pain] 05-24-2022 Episodic Other nervous system disorders (16 sources) Poor balance; Translations: [Other abnormalities of gait and mobility] 07-01-2022 Episodic Other nervous system disorders (4 sources) Toxic metabolic encephalopathy; Translations: [Toxic metabolic encephalopathy] 02-11-2023 Episodic Other non-traumatic joint disorders (20 sources) Effusion of joint of left elbow; Translations: [Effusion, left elbow] 07-10-2021 Episodic Other non-traumatic joint disorders (2 sources) Pain in right shoulder; Translations: [Right shoulder pain] 06-19-2023 Episodic Other nutritional; endocrine; and metabolic disorders (2 sources) Obesity; Translations: [Obesity, unspecified] 04-01-2024 Chronic Other nutritional; endocrine; and metabolic disorders (20 sources) Overweight; Translations: [Overweight] 12-08-2020 Episodic Other nutritional; endocrine; and metabolic disorders (10 sources) Overweight; Translations: [Overweight] Episodic Other nutritional; endocrine; and metabolic disorders (1 source) H/O: diabetes mellitus; Translations: [Personal history of other endocrine, nutritional and metabolic disease] 02-11-2023 Episodic Other nutritional; endocrine; and metabolic disorders (2 sources) Personal history of other endocrine, nutritional and metabolic disease; Translations: [Personal history of other endocrine, nutritional and metabolic disease] Onset: Episodic Other screening for suspected conditions (not mental disorders or infectious disease) (12 sources) Deviation of international normalized ratio from target range; Translations: [Abnormal coagulation profile] 12-06-2022 Episodic Pulmonary heart disease (15 sources) Pulmonary hypertension; Translations: [Pulmonary hypertension, unspecified] 07-18-2022 Chronic Residual codes; unclassified (20 sources) Obstructive sleep apnea syndrome; Translations: [Obstructive sleep apnea (adult) (pediatric)] 06-10-2018 Chronic Residual codes; unclassified (3 sources) Disturbance of consciousness; Translations: [Transient alteration of awareness] 02-11-2023 Episodic Respiratory failure; insufficiency; arrest (adult) (20 sources) Acute respiratory failure; Translations: [Acute respiratory failure with hypoxia] Episodic Spondylosis; intervertebral disc disorders; other back problems (20 sources) Lumbosacral radiculopathy; Translations: [Radiculopathy, lumbosacral region] 06-10-2018 Episodic Superficial injury; contusion (20 sources) Contusion, shoulder and upper arm, multiple sites; Translations: [Contusion of right shoulder, initial encounter] 06-15-2020 Episodic Thyroid disorders (20 sources) Hypothyroidism; Translations: [Hypothyroidism, unspecified] Chronic Viral infection (9 sources) Viral disease; Translations: [Viral infection, unspecified] 11-30-2022 Episodic Past or Other Problems Problem Classification Problem Date Documented Da te Episodic/Chronic Coronary atherosclerosis and other heart disease (20 sources) Stented coronary artery; Translations: [Presence of coronary angioplasty implant and graft] Onset: 03-13-2016 Episodic Open wounds of head; neck; and trunk (14 sources) Laceration of forehead; Translations: [Laceration without foreign body of other part of head, initial encounter] Onset: 05-03-2024 12-04-2022 Episodic Other circulatory disease (2 sources) Orthostatic hypotension; Translations: [Orthostatic hypotension] Onset: 05-03-2024 Episodic Other connective tissue disease (2 sources) Repeated falls; Translations: [History of fall] Onset: 03-11-2024 02-21-2023 Episodic Other injuries and conditions due to external causes (1 source) Encounter for examination and observation following other accident; Translations: [Encounter for examination and observation following other accident] Onset: 09-20-2023 Episodic Other lower respiratory disease (2 sources) Dyspnea, unspecified; Translations: [Other respiratory abnormalities] Onset: 03-11-2024 Episodic Residual codes; unclassified (1 source) Localized edema; Translations: [Localized edema] Onset: 12-10-2023 Episodic Syncope (5 sources) Syncope; Translations: [Syncope and collapse] Onset: 05-03-2024 05-02-2024 Episodic Results Test Name Value Interpretation Reference Range Facility Absolute neutrophil countOrd ered By: Bernardino Briceno on 05-03-2024 Absolute neutrophil count 4.4 X10^3/uL 2.0-7.7 [facility] Anion gap [Moles/Vol]Ordered By: Bernardino Briceno on 05-03-2024 Anion gap in Serum or Plasma 12 5-15 [facility] BUN/creatinine ratioOrdered By: Bernardino Briceno on 05-03-2024 BUN/creatinine ratio 23.6 RATIO High 10-20 [facility] Basophil percentageOrdered B y: Bernardino Briceno on 05-03-2024 Basophil percentage 1.1 % High 0-1 [facility] Calcium [Mass/Vol]Ordered By : Bernardino Briceno on 05-03-2024 Serum or plasma calcium measurement (mass/volume) 9.1 mg/dL 7.6-11.0 [facility] Carbon dioxide, total [Moles /volume] in Central venous bloodOrdered By: Bernardino Briceno on 05-03-2024 Carbon dioxide, total [Moles/volume] in Central venous blood 20.7 mmol/L Low 21.0-32.0 [facility] Chloride assayOrdered By: Carolina Briceno on 05-03-2024 Chloride assay 109 mmol/L High 98-108 [facility] Creatinine [Mass/Vol]Ordered By: Bernardino Briceno on 05-03-2024 Serum creatinine measurement (mass/volume) 1.35 mg/dL High 0.70-1.20 [facility] Electrocardiogram reportOrde red By: Nayan Cee on 05-03-2024 EKG study [facility] Other Phone: Eosinophil percentageOrdered By: Bernardino Briceno on 05-03-2024 Eosinophil percentage 6.8 % High 0-5 [facility] Erythrocyte distribution wid th (RBC) [Entitic vol]Ordered By: Bernardino Briceno on 05-03-2024 Erythrocyte distribution width standard deviation 48.4 fl High 35.1-43.9 [facility] Erythrocyte distribution wid th (RBC) [Ratio]Ordered By: Bernardino Briceno on 05-03-2024 Erythrocyte distribution width ratio 13.4 % 11.6-14.6 [facility] Estimation of creatinine jesus manuel aranceOrdered By: Bernardino Briceno on 05-03-2024 Estimation of creatinine clearance 28.86 ml/min Low 50-250 [facility] GFR/1.73 sq M.predicted grace g non-blacks MDRD (S/P/Bld) [Vol rate/Area]Ordered By: Bernardino Briceno on 05-03-2024 Glomerular filtration rate (GFR) estimation/1.73 sq m using serum, plasma, or whole b 38 Low >60 [facility] Glucose [Mass/Vol]Ordered By : Bernardino Briceno on 05-03-2024 Serum glucose measurement (mass/volume) 173 mg/dL High 70-99 [facility] Glucose measurement at bedsi deOrdered By: Bernardino Briceno on 05-03-2024 Glucose measurement at bedside 171 mg/dL High 74-106 [facility] Hematocrit Auto (Bld) [Volum e fraction]Ordered By: Bernardino Briceno on 05-03-2024 Automated blood hematocrit (percentage) 39.6 % 37-47 [facility] Hemoglobin measurementOrdere d By: Bernardino Briceno on 05-03-2024 Hemoglobin measurement 12.9 g/dL 12.0-15.0 [facility] [place] Immature granulocytes/100 WB C Auto (Bld)Ordered By: Bernardino Briceno on 05-03-2024 Automated immature granulocyte percentage 0.400 % 0.0-0.9 [facility] Lymphocytes Auto (Unsp spec) [#/Vol]Ordered By: Bernardino Briceno on 05-03-2024 Absolute lymphocyte count 2.18 X10^3/uL 0.83-4. 51 [facility] Lymphocytes/100 WBC Auto (Un sp spec)Ordered By: Bernardino Briceno on 05-03-2024 Automated lymphocyte count as percentage of total leukocytes 26.9 % 19-41 [facility] MCV (RBC) [Entitic vol]Order ed By: Bernardino Briceno on 05-03-2024 MCV (mean corpuscular volume) determination 97.8 fL 81-99 [facility] Mean corpuscular hemoglobin (MCH) determinationOrdered By: Bernardino Briceno on 05-03-2024 Mean corpuscular hemoglobin (MCH) determination 31.9 pg 27.0-32.0 [facility] Mean corpuscular hemoglobin concentration (MCHC) determinationOrdered By: Bernardino Briceno on 05-03-2024 Mean corpuscular hemoglobin concentration (MCHC) determination 32.6 g/dL 32-36 [facility] Mean platelet volume determi nationOrdered By: Bernardino Briceno on 05-03-2024 Mean platelet volume determination 11.3 fl 6.2-12.0 [facility] Monocyte percentageOrdered B y: Bernardino Briceno on 05-03-2024 Monocyte percentage 10.5 % High 0-10 [facility] Neutrophil percentageOrdered By: Bernardino Briceno on 05-03-2024 Neutrophil percentage 54.3 % 47-70 [facility] Nucleated red blood cell per centageOrdered By: Bernardino Briceno on 05-03-2024 Nucleated red blood cell percentage 0 % 0-5 [facility] Platelet countOrdered By: Carolina Briceno on 05-03-2024 Platelet count 185 K/mm3 150-450 [facility] Potassium (Unsp spec) [Mass/ Vol]Ordered By: Bernardino Briceno on 05-03-2024 Potassium measurement (mass/volume) 4.1 mmol/L 3.3-5.1 [facility] RBC Auto (Bld) [#/Vol]Ordere d By: Bernardino Briceno on 05-03-2024 Automated blood erythrocyte count 4.05 M/mm3 Low 4.2-5.4 [facility] Sodium levelOrdered By: Yossi Briceno on 05-03-2024 Sodium level 141 mmol/L 133-145 [facility] Urea nitrogen [Mass/Vol]Orde red By: Bernardino Briceno on 05-03-2024 Serum or plasma urea nitrogen measurement (mass/volume) 32 mg/dL High 4-19 [facility] White blood cell (WBC) count Ordered By: Bernardino Briceno on 05-03-2024 White blood cell (WBC) count 8.1 K/mm3 4.4-11.0 [facility] ALP [Catalytic activity/Vol] Ordered By: Ziggy Moreau on 05-02-2024 Serum or plasma alkaline phosphatase measurement 99 U/L 35-104 [facility] ALT [Catalytic activity/Vol] Ordered By: Ziggy Moreau on 05-02-2024 Serum or plasma alanine aminotransferase (ALT) measurement 9 U/L <35 [facility] Absolute neutrophil countOrd ered By: Ziggy Moreau on 05-02-2024 Absolute neutrophil count 6.7 X10^3/uL 2.0-7.7 [facility] Albumin [Mass/Vol]Ordered By : Ziggy Moreau on 05-02-2024 Serum or plasma albumin measurement (mass/volume) 4.0 g/dL 3.4-4.8 [facility] Anion gap [Moles/Vol]Ordered By: Ziggy Moreau on 05-02-2024 Anion gap in Serum or Plasma 16 High 5-15 [facility] BUN/creatinine ratioOrdered By: Ziggy Moreau on 05-02-2024 BUN/creatinine ratio 23.1 RATIO High 10-20 [facility] Base excess Calc (BldV) [Mol es/Vol]Ordered By: Ziggy Moreau on 05-02-2024 Venous blood base excess measurement -2 mmol/L Low -1.0-3.5 [facility] Basophil percentageOrdered B y: Ziggy Moreau on 05-02-2024 Basophil percentage 0.7 % 0-1 [facility] Bilirubin, totalOrdered By: Ziggy Moreau on 05-02-2024 Bilirubin, total 0.28 mg/dL 0.00-1.30 [facility] Bilirubin.direct [Mass/Vol]O rdered By: Ziggy Moreau on 05-02-2024 Bilirubin direct 0.13 mg/dL 0.00-0.30 [facility] CO2 (BldV) [Moles/Vol]Ordere d By: Ziggy Moreau on 05-02-2024 Venous blood total carbon dioxide measurement 25 mmol/L 23-33 [facility] CO2 (BldV) [Partial pressure ]Ordered By: Ziggy Moreau on 05-02-2024 Venous blood partial pressure of carbon dioxide measurement 46.5 mmHg 41-51 [facility] Calcium [Mass/Vol]Ordered By : Ziggy Moreau on 05-02-2024 Serum or plasma calcium measurement (mass/volume) 8.9 mg/dL 7.6-11.0 [facility] Carbon dioxide, total [Moles /volume] in Central venous bloodOrdered By: Ziggy Moreau on 05-02-2024 Carbon dioxide, total [Moles/volume] in Central venous blood 18.5 mmol/L Low 21.0-32.0 [facility] Chloride assayOrdered By: Woody Moreau on 05-02-2024 Chloride assay 104 mmol/L 98-108 [facility] Clarity (U)Ordered By: Ziggy Moreau on 05-02-2024 Urine clarity Clear Clear [facility] Color (U)Ordered By: Ziggy bryant on 05-02-2024 Urine color determination Yellow Yellow [facility] Creatinine [Mass/Vol]Ordered By: Ziggy Moreau on 05-02-2024 Serum creatinine measurement (mass/volume) 1.61 mg/dL High 0.70-1.20 [facility] Determination of fraction of inspired oxygenOrdered By: Ziggy Moreau on 05-02-2024 Determination of fraction of inspired oxygen 21.0 [facility] Eosinophil percentageOrdered By: Ziggy Moreau on 05-02-2024 Eosinophil percentage 4.6 % 0-5 [facility] Epithelial cells.squamous LM Ql (Urine sed)Ordered By: Ziggy Moreau on 05-02-2024 Squamous epithelial cells detection in urine sediment by light microscopy 5-10 SEEN /hpf 5-10 [facility] Erythrocyte distribution wid th (RBC) [Entitic vol]Ordered By: Ziggy Moreau on 05-02-2024 Erythrocyte distribution width standard deviation 49.0 fl High 35.1-43.9 [facility] Erythrocyte distribution wid th (RBC) [Ratio]Ordered By: Ziggy Moreau on 05-02-2024 Erythrocyte distribution width ratio 13.5 % 11.6-14.6 [facility] Estimation of creatinine jesus manuel aranceOrdered By: Ziggy Moreau on 05-02-2024 Estimation of creatinine clearance 24.69 ml/min Low 50-250 [facility] GFR/1.73 sq M.predicted grace g non-blacks MDRD (S/P/Bld) [Vol rate/Area]Ordered By: Ziggy Moreau on 05-02-2024 Glomerular filtration rate (GFR) estimation/1.73 sq m using serum, plasma, or whole b 31 Low >60 [facility] Glucose Ql (U)Ordered By: Woody Moreau on 05-02-2024 Urine glucose detection 1000 mg/dl High Normal [facility] Glucose [Mass/Vol]Ordered By : Ziggy Moreau on 05-02-2024 Serum glucose measurement (mass/volume) 257 mg/dL High 70-99 [facility] Glucose measurement at bedsi deOrdered By: Bernardino Briceno on 05-02-2024 Glucose measurement at bedside 188 mg/dL High 74-106 [facility] Hematocrit Auto (Bld) [Volum e fraction]Ordered By: Ziggy Moreau on 05-02-2024 Automated blood hematocrit (percentage) 42.6 % 37-47 [facility] Hemoglobin measurementOrdere d By: Ziggy Moreau on 05-02-2024 Hemoglobin measurement 13.8 g/dL 12.0-15.0 [facility] [place] Immature granulocytes/100 WB C Auto (Bld)Ordered By: Ziggy Moreau on 05-02-2024 Automated immature granulocyte percentage 0.400 % 0.0-0.9 [facility] International normalized rat io (INR) calculationOrdered By: Ziggy Moreau on 05-02-2024 International normalized ratio (INR) calculation 1.0 [facility] Lymphocytes Auto (Unsp spec) [#/Vol]Ordered By: Ziggy Moreau on 05-02-2024 Absolute lymphocyte count 1.65 X10^3/uL 0.83-4. 51 [facility] Lymphocytes/100 WBC Auto (Un sp spec)Ordered By: Ziggy Moreau on 05-02-2024 Automated lymphocyte count as percentage of total leukocytes 17.2 % Low 19-41 [facility] MCV (RBC) [Entitic vol]Order ed By: Ziggy Moreau on 05-02-2024 MCV (mean corpuscular volume) determination 97.5 fL 81-99 [facility] Mean corpuscular hemoglobin (MCH) determinationOrdered By: Ziggy Moreau on 05-02-2024 Mean corpuscular hemoglobin (MCH) determination 31.6 pg 27.0-32.0 [facility] Mean corpuscular hemoglobin concentration (MCHC) determinationOrdered By: Ziggy Moreau on 05-02-2024 Mean corpuscular hemoglobin concentration (MCHC) determination 32.4 g/dL 32-36 [facility] Mean platelet volume determi nationOrdered By: Ziggy Moreau on 05-02-2024 Mean platelet volume determination 11.4 fl 6.2-12.0 [facility] Monocyte percentageOrdered B y: Ziggy Moreau on 05-02-2024 Monocyte percentage 7.5 % 0-10 [facility] Neutrophil percentageOrdered By: Ziggy Moreau on 05-02-2024 Neutrophil percentage 69.6 % 47-70 [facility] No Panel InformationOrdered By: Ziggy Moreau on 05-02-2024 JUAN ALBERTO [facility] Not entered [facility] 16 U/L <32 [facility] 0.3 mmol/L 0.0-0.3 [facility] Nucleated red blood cell per centageOrdered By: Ziggy Moreau on 05-02-2024 Nucleated red blood cell percentage 0 % 0-5 [facility] Oxygen (BldV) [Partial press ure]Ordered By: Ziggy Moreau on 05-02-2024 Venous blood partial pressure of oxygen measurement 39 mmHg 25-40 [facility] Platelet countOrdered By: Woody Moreau on 05-02-2024 Platelet count 195 K/mm3 150-450 [facility] Potassium (Unsp spec) [Mass/ Vol]Ordered By: Ziggy Moreau on 05-02-2024 Potassium measurement (mass/volume) 4.1 mmol/L 3.3-5.1 [facility] Protein Test strip Ql (U)Ord ered By: Zgigy Moreau on 05-02-2024 Urine protein assay by test strip, semi-quantitative 30 mg/dl High Negative [facility] Prothrombin timeOrdered By: Ziggy Moreau on 05-02-2024 Prothrombin time 13.1 SECONDS 11.7-14.9 [facility] RBC Auto (Bld) [#/Vol]Ordere d By: Ziggy Moreau on 05-02-2024 Automated blood erythrocyte count 4.37 M/mm3 4.2-5.4 [facility] Serum globulin measurementOr dered By: Ziggy Moreau on 05-02-2024 Serum globulin measurement 3.1 g/dL 2.2-4.2 [facility] Sodium levelOrdered By: Soham Moreau on 05-02-2024 Sodium level 138 mmol/L 133-145 [facility] Specific gravity (U) [Rel de nsity]Ordered By: Ziggy Moreau on 05-02-2024 Urine specific gravity measurement 1.015 1.002-1.030 [facility] Total proteinOrdered By: Alyssa Moreau on 05-02-2024 Total protein 7.2 g/dL 5.9-8.4 [facility] Urea nitrogen [Mass/Vol]Orde red By: Ziggy Moreau on 05-02-2024 Serum or plasma urea nitrogen measurement (mass/volume) 37 mg/dL High 4-19 [facility] Urine blood detectionOrdered By: Ziggy Moreau on 05-02-2024 Urine blood detection 150 /ul High Negative [facility] Urine sediment bacteria coun t by microscopy (number/high power field)Ordered By: Ziggy Moreau on 05-02-2024 Urine sediment bacteria count by microscopy (number/high power field) 0 SEEN /hpf [facility] Urine total bilirubin detect ion by test stripOrdered By: Ziggy Moreau on 05-02-2024 Urine total bilirubin detection by test strip Negative Negative [facility] Urobilinogen Ql (U)Ordered B y: Ziggy Moreau on 05-02-2024 Urine urobilinogen measurement Normal mg/dl Normal [facility] Venous blood bicarbonate jim surementOrdered By: Ziggy Moreau on 05-02-2024 Venous blood bicarbonate measurement 24 mmol/L 22-26 [facility] Venous blood oxygen saturati on measurementOrdered By: Ziggy Moreau on 05-02-2024 Venous blood oxygen saturation measurement 68 % 50-70 [facility] White blood cell (WBC) count Ordered By: Ziggy Moreau on 05-02-2024 White blood cell (WBC) count 9.6 K/mm3 4.4-11.0 [facility] White blood cell countOrdere d By: Ziggy Moreau on 05-02-2024 White blood cell count 0-5 SEEN /hpf 0-5 [facility] aPTT Coag (PPP) [Time]Ordere d By: Ziggy Moreau on 05-02-2024 Activated partial thromboplastin time (aPTT) in platelet poor plasma by coagulation a 29.3 Seconds 24.1-36.2 [facility] pH (BldV)Ordered By: Ziggy bryant on 05-02-2024 Venous blood pH measurement 7.32 7.32-7.4 2 [facility] pH (U)Ordered By: Ziggy lopez on 05-02-2024 Urine pH 5.0 5.0 - 8.0 [facility] Basophil percentageOrdered B y: Clifford Lane on 02-21-2023 Basophil percentage 190 mg/dL 74-106 [facility] Basophil percentage 137 mmol/L 136-145 [facility] Basophil percentage 3.4 mmol/L 3.5-5.1 [facility] Basophil percentage 107 mmol/L 98-107 [facility] Glucose Glucometer (BldC) [M ass/Vol]Ordered By: Clifford Lane on 02-21-2023 Glucose [Mass/Vol] 221 mg/dL 74-106 [facility] No Panel InformationOrdered By: Clifford Lane on 02-21-2023 39 mL/min >60 [facility] 48 mL/min >60 [facility] 28.38 ml/min [facility] 23.5 RATIO 10-20 [facility] 22.0 mmol/L 21.0-32.0 [facility] Serum or plasma calcium sary urement (mass/volume)Ordered By: Clifford Lane on 02-21-2023 Calcium [Mass/Vol] 8.7 mg/dL 8.5-10.1 [facility] Serum or plasma creatinine m easurement (mass/volume)Ordered By: Clifford Lane on 02-21-2023 Creatinine [Mass/Vol] 1.36 mg/dL 0.55-1.02 [facility] Serum or plasma urea nitroge n measurement (mass/volume)Ordered By: Clifford Lane on 02-21-2023 Urea nitrogen [Mass/Vol] 32 mg/dL 7-18 [facility] Thin prep Papanicolaou smear with manual screeningOrdered By: Clifford Lane on 02-21-2023 Thin prep Papanicolaou smear with manual screening 8 5-15 [facility] Absolute lymphocyte countOrd ered By: Lisset Cristobal on 02-19-2023 Lymphocytes Auto (Unsp spec) [#/Vol] 2.44 10*3/uL 0.83-4.51 [facility] Basophil percentageOrdered B y: Lisset Mcneillkhushbu on 02-19-2023 Basophil percentage 7.7 g/dL 6.4-8.2 [facility] Basophil percentage 0.50 mg/dL 0.20-1.00 [facility] Basophils (Bld) [#/Vol] 9.1 10*3/uL 4.4-11.0 [facility] Basophils (Bld) [#/Vol] 5.6 10*3/uL 2.0-7.7 [facility] Basophils/100 WBC (Bld) 61.1 % 47-70 [facility] Basophils/100 WBC (Bld) 2.6 % 0-5 [facility] Basophils/100 WBC (Bld) 0.9 % 0-1 [facility] Blood erythrocytes count (nu mber/volume)Ordered By: Lisset Cristobal on 02-19-2023 RBC (Bld) [#/Vol] 4.74 10*6/uL 4.2-5.4 [facility] Blood hemoglobin measurement (mass/volume)Ordered By: Lisset Cristobal on 02-19-2023 Hemoglobin (Bld) [Mass/Vol] 13.4 g/dL 12.0-15. 0 [facility] Blood lymphocytes/100 leukoc ytesOrdered By: Lisset Cristobal on 02-19-2023 Lymphocytes/100 WBC (Bld) 26.8 % 19-41 [facility] Blood monocytes/100 leukocyt esOrdered By: Lisset Cristobal on 02-19-2023 Monocytes/100 WBC (Bld) 8.3 % 0-10 [facility] Blood platelet mean volumeOr dered By: Lisset Cristobal on 02-19-2023 Platelet mean volume (Bld) [Entitic vol] 11.1 fL 6.2-12.0 [facility] Determination of erythrocyte mean corpuscular volume (MCV)Ordered By: Lisset Cristobal on 02-19-2023 MCV (RBC) [Entitic vol] 88.4 fL 81-99 [facility] Hematocrit Auto (Bld) [Volum e fraction]Ordered By: Lisset Cristobal on 02-19-2023 Hematocrit (Bld) [Volume fraction] 41.9 % 37-47 [facility] MCHC Auto (RBC) [Mass/Vol]Or dered By: Lisset Cristobal on 02-19-2023 MCHC (RBC) [Mass/Vol] 32.0 g/dL 32-36 [facility] No Panel InformationOrdered By: Lisset Cristobal on 02-19-2023 13 pg/mL 3.0-54.0 [facility] 28.3 pg 27.0-32.0 [facility] 15.5 % 11.6-14.6 [facility] 49.9 fl 35.1-43.9 [facility] 0.300 % 0.0-0.9 [facility] 0 % 0-5 [facility] 4.3 g/dL 2.2-4.2 [facility] 106 U/L 45-117 [facility] 18 U/L 13-56 [facility] 2.1 mg/dL 1.6-2.6 [facility] Platelets bldOrdered By: Charla Cristobal on 02-19-2023 Platelets (Bld) [#/Vol] 268 10*3/uL 150-450 [facility] Serum or plasma albumin sary urement (mass/volume)Ordered By: Lisset Cristobal on 02-19-2023 Albumin [Mass/Vol] 3.4 g/dL 3.2-5.0 [facility] Serum or plasma albumin/glob ulin mass ratioOrdered By: Lisset Critsobal on 02-19-2023 Albumin/Globulin [Mass ratio] 0.8 {ratio} 0.9-2.4 [facility] Thin prep Papanicolaou smear with manual screeningOrdered By: Lisset Cristobal on 02-19-2023 Thin prep Papanicolaou smear with manual screening 15 U/L 15-37 [facility] INR in Blood by Coagulation assayOrdered By: Familia Anderson on 02-18-2023 INR Coag (Bld) [Relative time] 2.3 {INR} [facility] No Panel InformationOrdered By: Famiila Anderson on 02-18-2023 25.5 SECONDS 11.7-14.9 [facility] 38.1 Seconds 24.1-36.2 [facility] < 10 U/L 13-75 [facility] Basophil percentageOrdered B y: Rosa Andersen on 02-07-2023 Basophil percentage 354 mg/dL 74-106 [facility] Basophil percentage 140 mmol/L 136-145 [facility] Basophil percentage 3.7 mmol/L 3.5-5.1 [facility] Basophil percentage 108 mmol/L 98-107 [facility] Glucose Glucometer (BldC) [M ass/Vol]Ordered By: Rosa Andersen on 02-07-2023 Glucose [Mass/Vol] 397 mg/dL 74-106 [facility] INR in Blood by Coagulation assayOrdered By: Yuriy Browning on 02-07-2023 INR Coag (Bld) [Relative time] 1.6 {INR} [facility] No Panel InformationOrdered By: Yuriy Browning on 02-07-2023 19.5 SECONDS 11.7-14.9 [facility] No Panel InformationOrdered By: Rosa Andersen on 02-07-2023 31 mL/min >60 [facility] 38 mL/min >60 [facility] 20.62 ml/min [facility] 24.8 RATIO 10-20 [facility] 22.0 mmol/L 21.0-32.0 [facility] Serum or plasma calcium sary urement (mass/volume)Ordered By: Rosa Andersen on 02-07-2023 Calcium [Mass/Vol] 8.3 mg/dL 8.5-10.1 [facility] Serum or plasma creatinine m easurement (mass/volume)Ordered By: Rosa Andersen on 02-07-2023 Creatinine [Mass/Vol] 1.65 mg/dL 0.55-1.02 [facility] Serum or plasma urea nitroge n measurement (mass/volume)Ordered By: Rosa Andersen on 02-07-2023 Urea nitrogen [Mass/Vol] 41 mg/dL 7-18 [facility] Thin prep Papanicolaou smear with manual screeningOrdered By: Rosa Andersen on 02-07-2023 Thin prep Papanicolaou smear with manual screening 10 5-15 [facility] Absolute lymphocyte countOrd ered By: Rosa Andersen on 02-06-2023 Lymphocytes Auto (Unsp spec) [#/Vol] 2.31 10*3/uL 0.83-4.51 [facility] Basophil percentageOrdered B y: Rosa Andersen on 02-06-2023 Basophils (Bld) [#/Vol] 11.2 10*3/uL 4.4-11.0 [facility] Basophils (Bld) [#/Vol] 7.5 10*3/uL 2.0-7.7 [facility] Basophils/100 WBC (Bld) 67.3 % 47-70 [facility] Basophils/100 WBC (Bld) 3.1 % 0-5 [facility] Basophils/100 WBC (Bld) 0.6 % 0-1 [facility] Blood erythrocytes count (nu mber/volume)Ordered By: Rosa Andersen on 02-06-2023 RBC (Bld) [#/Vol] 3.96 10*6/uL 4.2-5.4 [facility] Blood hemoglobin measurement (mass/volume)Ordered By: Rosa Andersen on 02-06-2023 Hemoglobin (Bld) [Mass/Vol] 11.0 g/dL 12.0-15. 0 [facility] Blood lymphocytes/100 leukoc ytesOrdered By: Rosa Andersen on 02-06-2023 Lymphocytes/100 WBC (Bld) 20.6 % 19-41 [facility] Blood monocytes/100 leukocyt esOrdered By: Rosa Andersen on 02-06-2023 Monocytes/100 WBC (Bld) 8.0 % 0-10 [facility] Blood platelet mean volumeOr dered By: Rosa Andersen on 02-06-2023 Platelet mean volume (Bld) [Entitic vol] 11.3 fL 6.2-12.0 [facility] Determination of erythrocyte mean corpuscular volume (MCV)Ordered By: Rosa Andersen on 02-06-2023 MCV (RBC) [Entitic vol] 90.2 fL 81-99 [facility] Hematocrit Auto (Bld) [Volum e fraction]Ordered By: Rosa Andersen on 02-06-2023 Hematocrit (Bld) [Volume fraction] 35.7 % 37-47 [facility] MCHC Auto (RBC) [Mass/Vol]Or dered By: Rosa Andersen on 02-06-2023 MCHC (RBC) [Mass/Vol] 30.8 g/dL 32-36 [facility] No Panel InformationOrdered By: Rosa Andersen on 02-06-2023 27.8 pg 27.0-32.0 [facility] 15.1 % 11.6-14.6 [facility] 49.4 fl 35.1-43.9 [facility] 0.400 % 0.0-0.9 [facility] 0 % 0-5 [facility] Platelets bldOrdered By: Es Andersen on 02-06-2023 Platelets (Bld) [#/Vol] 226 10*3/uL 150-450 [facility] Basophil percentageOrdered B y: Dc Mcpherson on 02-03-2023 Basophil percentage 0 SEEN /hpf 0-5 [facility] Basophil percentage 7.6 g/dL 6.4-8.2 [facility] Basophil percentage 0.40 mg/dL 0.20-1.00 [facility] Basophil percentage 1.4 mmol/L 0.4-2.0 [facility] Bilirubin Test strip Ql (U)O rdered By: Dc Mcpherson on 02-03-2023 Bilirubin Ql (U) Negative Negative [facility] [facility] Culture, urineOrdered By: Dante Mcpherson on 02-03-2023 Bacteria identified Cx Nom (U) Culture exhibits no growth. [facility] Influenza virus A and B and SARS-CoV-2 (COVID-19) Ag panel - Upper respiratory specimOrdered By: Dc Mcpherson on 02-03-2023 SARS-CoV-2 (COVID-19) RNA RABIA+probe Ql (Resp) [facility] Ketones Test strip Ql (U)Ord ered By: Dc Mcpherson on 02-03-2023 Ketones Ql (U) Negative Negative [facility] Mucus LM Ql (Urine sed)Order ed By: Dc Mcpherson on 02-03-2023 Mucus Ql (Urine sed) 0 SEEN /hpf [facility] Nitrite Test strip Ql (U)Ord ered By: Dc Mcpherson on 02-03-2023 Nitrite Ql (U) Negative Negative [facility] No Panel InformationOrdered By: Dc Mcpherson on 02-03-2023 No growth in 5 days. [facility] 44.5 Seconds 24.1-36.2 [facility] 4.3 g/dL 2.2-4.2 [facility] 10 pg/mL 3.0-54.0 [facility] 99 U/L 45-117 [facility] 14 U/L 13-56 [facility] Protein Test strip Ql (U)Ord ered By: Dc Mcpherson on 02-03-2023 Protein Ql (U) Negative Negative [facility] Serum or plasma albumin sary urement (mass/volume)Ordered By: Dc Mcpherson on 02-03-2023 Albumin [Mass/Vol] 3.3 g/dL 3.2-5.0 [facility] Serum or plasma albumin/glob ulin mass ratioOrdered By: Dc Mcpherson on 02-03-2023 Albumin/Globulin [Mass ratio] 0.8 {ratio} 0.9-2.4 [facility] Squamous epithelial cells de tection in urine sediment by light microscopyOrdered By: Dc Mcpherson on 02-03-2023 Epithelial cells.squamous LM Ql (Urine sed) 0 SEEN /hpf 5-10 [facility] Thin prep Papanicolaou smear with manual screeningOrdered By: Dc Mcpherson on 02-03-2023 Thin prep Papanicolaou smear with manual screening 13 U/L 15-37 [facility] Urine blood detectionOrdered By: Dc Mcpherson on 02-03-2023 RBC Ql (U) Negative Negative [facility] RBC Ql (U) 0 SEEN /hpf 0-5 [facility] Urine clarityOrdered By: Federico Mcpherson on 02-03-2023 Clarity (U) Clear Clear [facility] Urine color determinationOrd ered By: Dc Mcpherson on 02-03-2023 Color (U) Yellow Yellow [facility] Urine glucose detectionOrder ed By: Dc Mcpherson on 02-03-2023 Glucose Ql (U) 1000 mg/dl Normal [facility] Urine leukocyte esterase det ection by dipstickOrdered By: cD Mcpherson on 02-03-2023 Leukocyte esterase Test strip Ql (U) Negative Negative [facility] Urine pHOrdered By: Dc sosa on 02-03-2023 pH (U) 5.0 [pH] 5.0 - 8.0 [facility] Urine sediment bacteria coun t by microscopy (number/high power field)Ordered By: Dc Mcpherson on 02-03-2023 Bacteria LM.HPF (Urine sed) [#/Area] 0 /[HPF] None Seen [facility] Urine specific gravity measu rementOrdered By: Dc Mcpherson on 02-03-2023 Specific gravity (U) [Rel density] 1.010 1.002-1.030 [facility] Urobilinogen Auto test strip Ql (U)Ordered By: Dc Mcpherson on 02-03-2023 Urobilinogen Ql (U) Normal mg/dl Normal [facility] Whole blood hemoglobin A1c/t otal hemoglobin ratio (mass fraction)Ordered By: Clifford Lane on 02-03-2023 HbA1c (Bld) [Mass fraction] 11.0 % 3.8-5.6 [facility] Bacteria identified Cx Nom ( U)Ordered By: Galileo Albert on 12-23-2022 Culture, urine Mixed Gram Pos & Gra m Neg Org [facility] Basophil percentageOrdered B y: Galileo Albert on 12-23-2022 Basophil percentage 0-5 SEEN /hpf 0-5 [facility] [place] Bilirubin Test strip Ql (U)O rdered By: Galileo Albert on 12-23-2022 Bilirubin Ql (U) Negative Negative [facility] INR in Blood by Coagulation assayOrdered By: Galileo Albert on 12-23-2022 INR Coag (Bld) [Relative time] 2.0 {INR} [facility] Ketones Test strip Ql (U)Ord ered By: Galileo Albert on 12-23-2022 Ketones Ql (U) Negative Negative [facility] Mucus LM Ql (Urine sed)Order ed By: Galileo Albert on 12-23-2022 Mucus Ql (Urine sed) 0 SEEN /hpf [facility] Nitrite Test strip Ql (U)Ord ered By: Galileo Albert on 12-23-2022 Nitrite Ql (U) Negative Negative [facility] No Panel InformationOrdered By: Galileo Albert on 12-23-2022 22.4 SECONDS 11.7-14.9 [facility] Protein Test strip Ql (U)Ord ered By: Galileo Albert on 12-23-2022 Protein Ql (U) Negative Negative [facility] Squamous epithelial cells de tection in urine sediment by light microscopyOrdered By: Galileo Albert on 12-23-2022 Epithelial cells.squamous LM Ql (Urine sed) 0-5 SEEN /hpf 5-10 [facility] Urine blood detectionOrdered By: Galileo Albert on 12-23-2022 RBC Ql (U) Negative Negative [facility] RBC Ql (U) 0 SEEN /hpf 0-5 [facility] Urine clarityOrdered By: Corrina Albert on 12-23-2022 Clarity (U) Sl. Cloudy Clear [facility] Urine color determinationOrd ered By: Galileo Albert on 12-23-2022 Color (U) Yellow Yellow [facility] Urine glucose detectionOrder ed By: Galileo Albert on 12-23-2022 Glucose Ql (U) 100 mg/dl Normal [facility] Urine leukocyte esterase det ection by dipstickOrdered By: Galileo Albert on 12-23-2022 Leukocyte esterase Test strip Ql (U) 25 /ul Negative [facility] Urine pHOrdered By: Galileo burns on 12-23-2022 pH (U) 6.0 [pH] 5.0 - 8.0 [facility] Urine sediment bacteria coun t by microscopy (number/high power field)Ordered By: Galileo Albert on 12-23-2022 Bacteria LM.HPF (Urine sed) [#/Area] 0 /[HPF] None Seen [facility] Urine specific gravity measu rementOrdered By: Galileo Albert on 12-23-2022 Specific gravity (U) [Rel density] 1.010 1.002-1.030 [facility] Urobilinogen Auto test strip Ql (U)Ordered By: Galileo Albert on 12-23-2022 Urobilinogen Ql (U) Normal mg/dl Normal [facility] Basophil percentageOrdered B y: Galileo Albert on 12-20-2022 Basophils (Bld) [#/Vol] 8.8 10*3/uL 4.4-11.0 [facility] Blood erythrocytes count (nu mber/volume)Ordered By: Galileo Albert on 12-20-2022 RBC (Bld) [#/Vol] 3.47 10*6/uL 4.2-5.4 [facility] Blood hemoglobin measurement (mass/volume)Ordered By: Galileo Albert on 12-20-2022 Hemoglobin (Bld) [Mass/Vol] 9.9 g/dL 12.0-15. 0 [facility] Blood platelet mean volumeOr dered By: aGlileo Albert on 12-20-2022 Platelet mean volume (Bld) [Entitic vol] 11.1 fL 6.2-12.0 [facility] Determination of erythrocyte mean corpuscular volume (MCV)Ordered By: Galileo Alebrt on 12-20-2022 MCV (RBC) [Entitic vol] 92.8 fL 81-99 [facility] Hematocrit Auto (Bld) [Volum e fraction]Ordered By: Galileo Albert on 12-20-2022 Hematocrit (Bld) [Volume fraction] 32.2 % 37-47 [facility] INR in Blood by Coagulation assayOrdered By: Galileo Albert on 12-20-2022 INR Coag (Bld) [Relative time] 4.7 {INR} [facility] MCHC Auto (RBC) [Mass/Vol]Or dered By: Galileo Albert on 12-20-2022 MCHC (RBC) [Mass/Vol] 30.7 g/dL 32-36 [facility] No Panel InformationOrdered By: Galileo Albert on 12-20-2022 28.5 pg 27.0-32.0 [facility] 14.3 % 11.6-14.6 [facility] 48.4 fl 35.1-43.9 [facility] 45.4 SECONDS 11.7-14.9 [facility] Platelets bldOrdered By: Corrina Albert on 12-20-2022 Platelets (Bld) [#/Vol] 292 10*3/uL 150-450 [facility] Basophil percentageOrdered B y: Galileo Albert on 12-16-2022 Basophil percentage 287 mg/dL 74-106 [facility] Basophil percentage 7.1 g/dL 6.4-8.2 [facility] Basophil percentage 0.20 mg/dL 0.20-1.00 [facility] Basophil percentage 134 mmol/L 136-145 [facility] Basophil percentage 4.2 mmol/L 3.5-5.1 [facility] Basophil percentage 100 mmol/L 98-107 [facility] Basophils (Bld) [#/Vol] 11.9 10*3/uL 4.4-11.0 [facility] Blood erythrocytes count (nu mber/volume)Ordered By: Galileo Albert on 12-16-2022 RBC (Bld) [#/Vol] 3.66 10*6/uL 4.2-5.4 [facility] Blood hemoglobin measurement (mass/volume)Ordered By: Galileo Albert on 12-16-2022 Hemoglobin (Bld) [Mass/Vol] 10.7 g/dL 12.0-15. 0 [facility] Blood platelet mean volumeOr dered By: Galileo Albert on 12-16-2022 Platelet mean volume (Bld) [Entitic vol] 11.6 fL 6.2-12.0 [facility] Determination of erythrocyte mean corpuscular volume (MCV)Ordered By: Galileo Albert on 12-16-2022 MCV (RBC) [Entitic vol] 94.0 fL 81-99 [facility] Hematocrit Auto (Bld) [Volum e fraction]Ordered By: Galileo Albert on 12-16-2022 Hematocrit (Bld) [Volume fraction] 34.4 % 37-47 [facility] INR in Blood by Coagulation assayOrdered By: Galileo Albert on 12-16-2022 INR Coag (Bld) [Relative time] 3.2 {INR} [facility] MCHC Auto (RBC) [Mass/Vol]Or dered By: Galileo Albert on 12-16-2022 MCHC (RBC) [Mass/Vol] 31.1 g/dL 32-36 [facility] No Panel InformationOrdered By: Galileo Albert on 12-16-2022 29.2 pg 27.0-32.0 [facility] 14.2 % 11.6-14.6 [facility] 48.7 fl 35.1-43.9 [facility] 33.3 SECONDS 11.7-14.9 [facility] 27 mL/min >60 [facility] 32 mL/min >60 [facility] 18.4 RATIO 10-20 [facility] 4.3 g/dL 2.2-4.2 [facility] 107 U/L 45-117 [facility] 23 U/L 13-56 [facility] 25.0 mmol/L 21.0-32.0 [facility] 4.66 uIU/mL 0.358-3.74 [facility] 1.03 ng/dL 0.76-1.46 [facility] 40.3 ng/mL [facility] Platelets bldOrdered By: Corrina Albert on 12-16-2022 Platelets (Bld) [#/Vol] 319 10*3/uL 150-450 [facility] Serum or plasma albumin sary urement (mass/volume)Ordered By: Galileo Albert on 12-16-2022 Albumin [Mass/Vol] 2.8 g/dL 3.2-5.0 [facility] Serum or plasma albumin/glob ulin mass ratioOrdered By: Galileo Albert on 12-16-2022 Albumin/Globulin [Mass ratio] 0.7 {ratio} 0.9-2.4 [facility] Serum or plasma calcium sary urement (mass/volume)Ordered By: Galileo Albert on 12-16-2022 Calcium [Mass/Vol] 8.4 mg/dL 8.5-10.1 [facility] Serum or plasma creatinine m easurement (mass/volume)Ordered By: Galileo Albert on 12-16-2022 Creatinine [Mass/Vol] 1.90 mg/dL 0.55-1.02 [facility] Serum or plasma urea nitroge n measurement (mass/volume)Ordered By: Galileo Albert on 12-16-2022 Urea nitrogen [Mass/Vol] 35 mg/dL 7-18 [facility] Thin prep Papanicolaou smear with manual screeningOrdered By: Galileo Albert on 12-16-2022 Thin prep Papanicolaou smear with manual screening 40 U/L 15-37 [facility] Thin prep Papanicolaou smear with manual screening 9 5-15 [facility] Whole blood hemoglobin A1c/t otal hemoglobin ratio (mass fraction)Ordered By: Galileo Albert on 12-16-2022 HbA1c (Bld) [Mass fraction] 10.2 % 3.8-5.6 [facility] Basophil percentageOrdered B y: Galileo Albert on 12-09-2022 Basophil percentage 246 mg/dL 74-106 [facility] Basophil percentage 138 mmol/L 136-145 [facility] Basophil percentage 3.8 mmol/L 3.5-5.1 [facility] Basophil percentage 106 mmol/L 98-107 [facility] Basophils (Bld) [#/Vol] 8.7 10*3/uL 4.4-11.0 [facility] Blood erythrocytes count (nu mber/volume)Ordered By: Galileo Albert on 12-09-2022 RBC (Bld) [#/Vol] 3.48 10*6/uL 4.2-5.4 [facility] Blood hemoglobin measurement (mass/volume)Ordered By: Galileo Albert on 12-09-2022 Hemoglobin (Bld) [Mass/Vol] 10.2 g/dL 12.0-15. 0 [facility] Blood platelet mean volumeOr dered By: Galileo Albert on 12-09-2022 Platelet mean volume (Bld) [Entitic vol] 12.3 fL 6.2-12.0 [facility] Determination of erythrocyte mean corpuscular volume (MCV)Ordered By: Galileo Albert on 12-09-2022 MCV (RBC) [Entitic vol] 94.5 fL 81-99 [facility] Hematocrit Auto (Bld) [Volum e fraction]Ordered By: Galileo Albert on 12-09-2022 Hematocrit (Bld) [Volume fraction] 32.9 % 37-47 [facility] INR in Blood by Coagulation assayOrdered By: Galileo Albert on 12-09-2022 INR Coag (Bld) [Relative time] 1.3 {INR} [facility] MCHC Auto (RBC) [Mass/Vol]Or dered By: Galileo Albert on 12-09-2022 MCHC (RBC) [Mass/Vol] 31.0 g/dL 32-36 [facility] No Panel InformationOrdered By: Galileo Albert on 12-09-2022 16.0 SECONDS 11.7-14.9 [facility] 29.3 pg 27.0-32.0 [facility] 13.8 % 11.6-14.6 [facility] 47.6 fl 35.1-43.9 [facility] 30 mL/min >60 [facility] 37 mL/min >60 [facility] 21.8 RATIO 10-20 [facility] 26.0 mmol/L 21.0-32.0 [facility] 5.03 uIU/mL 0.358-3.74 [facility] Platelets bldOrdered By: Corrina Albert on 12-09-2022 Platelets (Bld) [#/Vol] 221 10*3/uL 150-450 [facility] Serum or plasma calcium sary urement (mass/volume)Ordered By: Galileo Albert on 12-09-2022 Calcium [Mass/Vol] 8.6 mg/dL 8.5-10.1 [facility] Serum or plasma creatinine m easurement (mass/volume)Ordered By: Galileo Albert on 12-09-2022 Creatinine [Mass/Vol] 1.70 mg/dL 0.55-1.02 [facility] Serum or plasma urea nitroge n measurement (mass/volume)Ordered By: Galileo Albert on 12-09-2022 Urea nitrogen [Mass/Vol] 37 mg/dL 7-18 [facility] Thin prep Papanicolaou smear with manual screeningOrdered By: Galileo Albert on 12-09-2022 Thin prep Papanicolaou smear with manual screening 6 5-15 [facility] Absolute lymphocyte countOrd ered By: Bernardino Briceno on 12-07-2022 Lymphocytes Auto (Unsp spec) [#/Vol] 2.20 10*3/uL 0.83-4.51 [facility] Basophil percentageOrdered B y: Bernardino Briceno on 12-07-2022 Basophil percentage 249 mg/dL 74-106 [facility] Basophil percentage 133 mmol/L 136-145 [facility] Basophil percentage 3.3 mmol/L 3.5-5.1 [facility] Basophil percentage 102 mmol/L 98-107 [facility] Basophils (Bld) [#/Vol] 8.3 10*3/uL 4.4-11.0 [facility] Basophils (Bld) [#/Vol] 4.7 10*3/uL 2.0-7.7 [facility] Basophils/100 WBC (Bld) 57.2 % 47-70 [facility] Basophils/100 WBC (Bld) 3.9 % 0-5 [facility] Basophils/100 WBC (Bld) 0.8 % 0-1 [facility] Blood erythrocytes count (nu mber/volume)Ordered By: Bernardino Briceno on 12-07-2022 RBC (Bld) [#/Vol] 3.37 10*6/uL 4.2-5.4 [facility] Blood hemoglobin measurement (mass/volume)Ordered By: Bernardino Briceno on 12-07-2022 Hemoglobin (Bld) [Mass/Vol] 10.2 g/dL 12.0-15. 0 [facility] Blood lymphocytes/100 leukoc ytesOrdered By: Bernardino Briceno on 12-07-2022 Lymphocytes/100 WBC (Bld) 26.5 % 19-41 [facility] Blood monocytes/100 leukocyt esOrdered By: Bernardino Briceno on 12-07-2022 Monocytes/100 WBC (Bld) 11.0 % 0-10 [facility] Blood platelet mean volumeOr dered By: Bernardino Briceno on 12-07-2022 Platelet mean volume (Bld) [Entitic vol] 12.4 fL 6.2-12.0 [facility] Determination of erythrocyte mean corpuscular volume (MCV)Ordered By: Bernardino Briceno on 12-07-2022 MCV (RBC) [Entitic vol] 94.7 fL 81-99 [facility] Glucose Glucometer (BldC) [M ass/Vol]Ordered By: Bernardino Briceno on 12-07-2022 Glucose [Mass/Vol] 138 mg/dL 74-106 [facility] Hematocrit Auto (Bld) [Volum e fraction]Ordered By: Bernardino Briceno on 12-07-2022 Hematocrit (Bld) [Volume fraction] 31.9 % 37-47 [facility] INR in Blood by Coagulation assayOrdered By: Bernardino Briceno on 12-07-2022 INR Coag (Bld) [Relative time] 1.2 [facility] [[facility]/Vol]Or dered By: Bernardino Briceno on 12-07-2022 MCHC (RBC) [Mass/Vol] 32.0 g/dL 32-36 [facility] No Panel InformationOrdered By: Bernardino Briceno on 12-07-2022 30.3 pg 27.0-32.0 [facility] 13.7 % 11.6-14.6 [facility] 47.4 fl 35.1-43.9 [facility] 0.600 % 0.0-0.9 [facility] 0 % 0-5 [facility] 15.6 SECONDS 11.7-14.9 [facility] 30 mL/min >60 [facility] 36 mL/min >60 [facility] 19.67 ml/min [facility] 24.9 RATIO 10-20 [facility] 23.0 mmol/L 21.0-32.0 [facility] Platelets bldOrdered By: Filemon Briceno on 12-07-2022 Platelets (Bld) [#/Vol] 180 10*3/uL 150-450 [facility] Serum or plasma calcium sary urement (mass/volume)Ordered By: Bernardino Briceno on 12-07-2022 Calcium [Mass/Vol] 8.4 mg/dL 8.5-10.1 [facility] Serum or plasma creatinine m easurement (mass/volume)Ordered By: Bernardino Briceno on 12-07-2022 Creatinine [Mass/Vol] 1.73 mg/dL 0.55-1.02 [facility] Serum or plasma urea nitroge n measurement (mass/volume)Ordered By: Bernardino Briceno on 12-07-2022 Urea nitrogen [Mass/Vol] 43 mg/dL 7-18 [facility] Thin prep Papanicolaou smear with manual screeningOrdered By: Bernardino Briceno on 12-07-2022 Thin prep Papanicolaou smear with manual screening 8 5-15 [facility] Serum or plasma calcitriol m easurement (mass/volume)Ordered By: Carlos Liu on 12-06-2022 1,25-dihydroxyvitamin D3 [Mass/Vol] 20.0 pg/mL 24.8-81.5 [facility] Absolute lymphocyte countOrd ered By: Hortencia Prado on 12-05-2022 Lymphocytes Auto (Unsp spec) [#/Vol] 1.36 10*3/uL 0.83-4.51 [facility] Basophil percentageOrdered B y: Hortencia Prado on 12-05-2022 Basophil percentage 5-10 SEEN /hpf 0-5 [facility] Basophil percentage 528 mg/dL 74-106 [facility] Basophil percentage 130 mmol/L 136-145 [facility] Basophil percentage 4.2 mmol/L 3.5-5.1 [facility] Basophil percentage 95 mmol/L 98-107 [facility] Basophils (Bld) [#/Vol] 12.8 10*3/uL 4.4-11.0 [facility] Basophils (Bld) [#/Vol] 10.2 10*3/uL 2.0-7.7 [facility] Basophils/100 WBC (Bld) 79.9 % 47-70 [facility] Basophils/100 WBC (Bld) 0.9 % 0-5 [facility] Basophils/100 WBC (Bld) 0.3 % 0-1 [facility] Bilirubin Test strip Ql (U)O rdered By: Hortencia Prado on 12-05-2022 Bilirubin Ql (U) Negative Negative [facility] Blood erythrocytes count (nu mber/volume)Ordered By: Hortencia Prado on 12-05-2022 RBC (Bld) [#/Vol] 4.28 10*6/uL 4.2-5.4 [facility] Blood hemoglobin measurement (mass/volume)Ordered By: Hortencia Prado on 12-05-2022 Hemoglobin (Bld) [Mass/Vol] 12.7 g/dL 12.0-15. 0 [facility] Blood lymphocytes/100 leukoc ytesOrdered By: Hortencia Prado on 12-05-2022 Lymphocytes/100 WBC (Bld) 10.6 % 19-41 [facility] Blood monocytes/100 leukocyt esOrdered By: Hortencia Prado on 12-05-2022 Monocytes/100 WBC (Bld) 7.8 % 0-10 [facility] Blood platelet mean volumeOr dered By: Hortencia Prado on 12-05-2022 Platelet mean volume (Bld) [Entitic vol] 12.5 fL 6.2-12.0 [facility] Culture, urineOrdered By: Tahir Prado on 12-05-2022 Bacteria identified Cx Nom (U) Culture exhibits no growth. [facility] Bacteria identified Cx Nom (U) Culture exhibits no growth. [facility] Determination of erythrocyte mean corpuscular volume (MCV)Ordered By: Hortencia Prado on 12-05-2022 MCV (RBC) [Entitic vol] 91.8 fL 81-99 [facility] Glucose Glucometer (dC) [M ass/Vol]Ordered By: Hortencia Prado on 12-05-2022 Glucose [Mass/Vol] 462 mg/dL 74-106 [facility] HCO3 (BldA) [Moles/Vol]Order ed By: Hortencia Prado on 12-05-2022 HCO3 (Bld) [Moles/Vol] 24 mmol/L 22-26 [facility] [place] Hematocrit Auto (Bld) [Volum e fraction]Ordered By: Hortencia Prado on 12-05-2022 Hematocrit (Bld) [Volume fraction] 39.3 % 37-47 [facility] INR in Blood by Coagulation assayOrdered By: Hortencia Prado on 12-05-2022 INR Coag (Bld) [Relative time] 1.2 {INR} [facility] Ketones Test strip Ql (U)Ord ered By: Hortencia Prado on 12-05-2022 Ketones Ql (U) Negative Negative [facility] MCHC Auto (RBC) [Mass/Vol]Or dered By: Hortencia Prado on 12-05-2022 MCHC (RBC) [Mass/Vol] 32.3 g/dL 32-36 [facility] Mucus LM Ql (Urine sed)Order ed By: Hortencia Prado on 12-05-2022 Mucus Ql (Urine sed) 0 SEEN /hpf [facility] Nitrite Test strip Ql (U)Ord ered By: Hortencia Prado on 12-05-2022 Nitrite Ql (U) Negative Negative [facility] No Panel InformationOrdered By: Hortencia Prado on 12-05-2022 JUAN ALBERTO [facility] Not entered [facility] Cannula [facility] 2.0 [facility] 42.7 mmHg 41-51 [facility] -1 mmol/L -1.0-3.5 [facility] 65 % 50-70 [facility] 26 mmol/L 23-33 [facility] 29.7 pg 27.0-32.0 [facility] 13.8 % 11.6-14.6 [facility] 46.4 fl 35.1-43.9 [facility] 0.500 % 0.0-0.9 [facility] 0 % 0-5 [facility] 15.5 SECONDS 11.7-14.9 [facility] 18 mL/min >60 [facility] 22 mL/min >60 [facility] 12.79 ml/min [facility] 21.8 RATIO 10-20 [facility] < 10 U/L 13-75 [facility] 24.0 mmol/L 21.0-32.0 [facility] PO2 venousOrdered By: Hortencia Prado on 12-05-2022 Oxygen (BldV) [Partial pressure] 35 mm[Hg] 25-40 [facility] Platelets bldOrdered By: Cecilia Prado on 12-05-2022 Platelets (Bld) [#/Vol] 186 10*3/uL 150-450 [facility] Protein Test strip Ql (U)Ord ered By: Hortencia Prado on 12-05-2022 Protein Ql (U) 30 mg/dl Negative [facility] Serum or plasma acetone sary urement (mass/volume)Ordered By: Hortencia Prado on 12-05-2022 Acetone [Mass/Vol] Negative NEG [facility] Serum or plasma calcium sary urement (mass/volume)Ordered By: Hortencia Prado on 12-05-2022 Calcium [Mass/Vol] 8.9 mg/dL 8.5-10.1 [facility] Serum or plasma creatinine m easurement (mass/volume)Ordered By: Hortencia Prado on 12-05-2022 Creatinine [Mass/Vol] 2.66 mg/dL 0.55-1.02 [facility] Serum or plasma urea nitroge n measurement (mass/volume)Ordered By: Hortencia Prado on 12-05-2022 Urea nitrogen [Mass/Vol] 58 mg/dL 7-18 [facility] Squamous epithelial cells de tection in urine sediment by light microscopyOrdered By: Hortencia Prado on 12-05-2022 Epithelial cells.squamous LM Ql (Urine sed) 0-5 SEEN /hpf 5-10 [facility] Thin prep Papanicolaou smear with manual screeningOrdered By: Hortencia Prado on 12-05-2022 Thin prep Papanicolaou smear with manual screening 11 5-15 [facility] Urine blood detectionOrdered By: Hortencia Prado on 12-05-2022 RBC Ql (U) Negative Negative [facility] RBC Ql (U) 0 SEEN /hpf 0-5 [facility] Urine clarityOrdered By: Cecilia Prado on 12-05-2022 Clarity (U) Clear Clear [facility] Urine color determinationOrd ered By: Hortencia Prado on 12-05-2022 Color (U) Yellow Yellow [facility] Urine glucose detectionOrder ed By: Hortencia Prado on 12-05-2022 Glucose Ql (U) 1000 mg/dl Normal [facility] Urine leukocyte esterase det ection by dipstickOrdered By: Hortencia Prado on 12-05-2022 Leukocyte esterase Test strip Ql (U) 100 /ul Negative [facility] Urine pHOrdered By: Hortencia leon on 12-05-2022 pH (U) 6.0 [pH] 5.0 - 8.0 [facility] Urine sediment bacteria coun t by microscopy (number/high power field)Ordered By: Hortencia Prado on 12-05-2022 Bacteria LM.HPF (Urine sed) [#/Area] RARE /hpf None Seen [facility] Urine sediment yeast count b y microscopy (number/high powered field)Ordered By: Hortencia Prado on 12-05-2022 Yeast LM.HPF (Urine sed) [#/Area] 1 /[HPF] None Seen [facility] Urine specific gravity measu rementOrdered By: Hortencia Prado on 12-05-2022 Specific gravity (U) [Rel density] 1.030 1.002-1.030 [facility] Urobilinogen Auto test strip Ql (U)Ordered By: Hortencia Prado on 12-05-2022 Urobilinogen Ql (U) Normal mg/dl Normal [facility] pH measurementOrdered By: Tahir Prado on 12-05-2022 pH (Unsp spec) 7.36 [pH] 7.32-7.42 [facility] INR in Blood by Coagulation assayOrdered By: Familia Anderson on 12-04-2022 INR Coag (Bld) [Relative time] 1.2 {INR} [facility] No Panel InformationOrdered By: Familia Anderson on 12-04-2022 15.1 SECONDS 11.7-14.9 [facility] No Panel Informationon 12-02 10.3 % 4.2-6.3 [facility] Absolute lymphocyte countOrd ered By: Dc Mcpherson on 11-30-2022 Lymphocytes Auto (Unsp spec) [#/Vol] 1.88 10*3/uL 0.83-4.51 [facility] Basophil percentageOrdered B y: Dc Mcpherson on 11-30-2022 Basophil percentage 10-25 SEEN /hpf 0-5 [facility] Basophil percentage 478 mg/dL 74-106 [facility] Basophil percentage 7.6 g/dL 6.4-8.2 [facility] Basophil percentage 0.40 mg/dL 0.20-1.00 [facility] Basophil percentage 136 mmol/L 136-145 [facility] Basophil percentage 4.0 mmol/L 3.5-5.1 [facility] Basophil percentage 104 mmol/L 98-107 [facility] Basophils (Bld) [#/Vol] 9.8 10*3/uL 4.4-11.0 [facility] Basophils (Bld) [#/Vol] 6.9 10*3/uL 2.0-7.7 [facility] Basophils/100 WBC (Bld) 70.6 % 47-70 [facility] Basophils/100 WBC (Bld) 1.8 % 0-5 [facility] Basophils/100 WBC (Bld) 0.6 % 0-1 [facility] Bilirubin Test strip Ql (U)O rdered By: Dc Mcpherson on 11-30-2022 Bilirubin Ql (U) Negative Negative [facility] Blood erythrocytes count (nu mber/volume)Ordered By: Dc Mcpherson on 11-30-2022 RBC (Bld) [#/Vol] 4.77 10*6/uL 4.2-5.4 [facility] Blood hemoglobin measurement (mass/volume)Ordered By: Dc Mcpherson on 11-30-2022 Hemoglobin (Bld) [Mass/Vol] 14.1 g/dL 12.0-15. 0 [facility] Blood lymphocytes/100 leukoc ytesOrdered By: Dc Mcpherson on 11-30-2022 Lymphocytes/100 WBC (Bld) 19.2 % 19-41 [facility] Blood monocytes/100 leukocyt esOrdered By: Dc Mcpherson on 11-30-2022 Monocytes/100 WBC (Bld) 7.5 % 0-10 [facility] Blood platelet mean volumeOr dered By: Dc Mcpherson on 11-30-2022 Platelet mean volume (Bld) [Entitic vol] 11.5 fL 6.2-12.0 [facility] Determination of erythrocyte mean corpuscular volume (MCV)Ordered By: Dc Mcpherson on 11-30-2022 MCV (RBC) [Entitic vol] 93.9 fL 81-99 [facility] Glucose Glucometer (BldC) [M ass/Vol]Ordered By: Dc Mcpherson on 11-30-2022 Glucose [Mass/Vol] 340 mg/dL 74-106 [facility] Hematocrit Auto (Bld) [Volum e fraction]Ordered By: Dc Mcpherson on 11-30-2022 Hematocrit (Bld) [Volume fraction] 44.8 % 37-47 [facility] INR in Blood by Coagulation assayOrdered By: Dc Mcpehrson on 11-30-2022 INR Coag (Bld) [Relative time] 1.0 {INR} [facility] Influenza virus A and B and SARS-CoV-2 (COVID-19) Ag panel - Upper respiratory specimOrdered By: Dc Mcpherson on 11-30-2022 SARS-CoV-2 (COVID-19) RNA RABIA+probe Ql (Resp) [facility] Ketones Test strip Ql (U)Ord ered By: Dc Mcphreson on 11-30-2022 Ketones Ql (U) Negative Negative [facility] MCHC Auto (RBC) [Mass/Vol]Or dered By: Dc Mcpherson on 11-30-2022 MCHC (RBC) [Mass/Vol] 31.5 g/dL 32-36 [facility] Mucus LM Ql (Urine sed)Order ed By: Dc Mcpherson on 11-30-2022 Mucus Ql (Urine sed) 0 SEEN /hpf [facility] Nitrite Test strip Ql (U)Ord ered By: Dc Mcpherson on 11-30-2022 Nitrite Ql (U) Negative Negative [facility] No Panel InformationOrdered By: Dc Mcpherson on 11-30-2022 29.6 pg 27.0-32.0 [facility] 13.9 % 11.6-14.6 [facility] 47.8 fl 35.1-43.9 [facility] 0.300 % 0.0-0.9 [facility] 0 % 0-5 [facility] 13.0 SECONDS 11.7-14.9 [facility] 38 mL/min >60 [facility] 46 mL/min >60 [facility] 24.13 ml/min [facility] 17.0 RATIO 10-20 [facility] 4.2 g/dL 2.2-4.2 [facility] 125 U/L 45-117 [facility] 17 U/L 13-56 [facility] 23.0 mmol/L 21.0-32.0 [facility] Platelets bldOrdered By: Federico Mcpherson on 11-30-2022 Platelets (Bld) [#/Vol] 226 10*3/uL 150-450 [facility] Protein Test strip Ql (U)Ord ered By: Dc Mcpherson on 11-30-2022 Protein Ql (U) 100 mg/dl Negative [facility] Serum or plasma albumin sary urement (mass/volume)Ordered By: Dc Mcpherson on 11-30-2022 Albumin [Mass/Vol] 3.4 g/dL 3.2-5.0 [facility] Serum or plasma albumin/glob ulin mass ratioOrdered By: Dc Mcpherson on 11-30-2022 Albumin/Globulin [Mass ratio] 0.8 {ratio} 0.9-2.4 [facility] Serum or plasma calcium sary urement (mass/volume)Ordered By: Dc Mcpherson on 11-30-2022 Calcium [Mass/Vol] 8.8 mg/dL 8.5-10.1 [facility] Serum or plasma creatinine m easurement (mass/volume)Ordered By: Dc Mcpherson on 11-30-2022 Creatinine [Mass/Vol] 1.41 mg/dL 0.55-1.02 [facility] Serum or plasma urea nitroge n measurement (mass/volume)Ordered By: Dc Mcpherson on 11-30-2022 Urea nitrogen [Mass/Vol] 24 mg/dL 7-18 [facility] Squamous epithelial cells de tection in urine sediment by light microscopyOrdered By: Dc Mcpherson on 11-30-2022 Epithelial cells.squamous LM Ql (Urine sed) 5-10 SEEN /hpf 5-10 [facility] Thin prep Papanicolaou smear with manual screeningOrdered By: Dc Mcpherson on 11-30-2022 Thin prep Papanicolaou smear with manual screening 16 U/L 15-37 [facility] Thin prep Papanicolaou smear with manual screening 9 5-15 [facility] Urine blood detectionOrdered By: Dc Mcpherson on 11-30-2022 RBC Ql (U) 10 /ul Negative [facility] RBC Ql (U) 0 SEEN /hpf 0-5 [facility] Urine clarityOrdered By: Federico Mcpherson on 11-30-2022 Clarity (U) Sl. Cloudy Clear [facility] Urine color determinationOrd ered By: Dc Mcpherson on 11-30-2022 Color (U) Yellow Yellow [facility] Urine glucose detectionOrder ed By: Dc Mcpherson on 11-30-2022 Glucose Ql (U) 1000 mg/dl Normal [facility] Urine leukocyte esterase det ection by dipstickOrdered By: Dc Mcpherson on 11-30-2022 Leukocyte esterase Test strip Ql (U) 25 /ul Negative [facility] Urine pHOrdered By: Dc sosa on 11-30-2022 pH (U) 5.0 [pH] 5.0 - 8.0 [facility] Urine sediment bacteria coun t by microscopy (number/high power field)Ordered By: Dc Mcpherson on 11-30-2022 Bacteria LM.HPF (Urine sed) [#/Area] 0 /[HPF] None Seen [facility] Urine sediment yeast count b y microscopy (number/high powered field)Ordered By: Dc Mcpherson on 11-30-2022 Yeast LM.HPF (Urine sed) [#/Area] 1 /[HPF] None Seen [facility] Urine specific gravity measu rementOrdered By: Dc Mcpherson on 11-30-2022 Specific gravity (U) [Rel density] 1.015 1.002-1.030 [facility] Urobilinogen Auto test strip Ql (U)Ordered By: Dc Mcpherson on 11-30-2022 Urobilinogen Ql (U) Normal mg/dl Normal [facility] Absolute lymphocyte countOrd ered By: Bernardino Briceno on 11-21-2022 Lymphocytes Auto (Unsp spec) [#/Vol] 2.38 10*3/uL 0.83-4.51 [facility] Assessment of wrist artery p atency prior to arterial punctureOrdered By: Rosa Andersen on 11-21-2022 Arterial patency Wrist artery --pre arterial puncture Positive [facility] Atypical perinuclear antineu trophil cytoplasmic antibodies measurementOrdered By: Rosa Andersen on 11-21-2022 Neutrophil cytoplasmic Ab.perinuclear.atypical IF (S) [Titer] 1:320 titer Neg:<1:20 [facility] Base excessOrdered By: Дмитрий Andersen on 11-21-2022 Base excess Calc (BldV) [Moles/Vol] 0 mmol/L -2-2 [facility] Basophil percentageOrdered B y: Rosa Andersen on 11-21-2022 Basophil percentage 25.1 mmol/L 22-26 [facility] Basophils/100 WBC (Bld) 88 % 95-99 [facility] Basophil percentageOrdered B y: Bernardino Briceno on 11-21-2022 Basophil percentage 219 mg/dL 74-106 [facility] Basophil percentage 134 mmol/L 136-145 [facility] Basophil percentage 3.7 mmol/L 3.5-5.1 [facility] Basophil percentage 101 mmol/L 98-107 [facility] Basophils (Bld) [#/Vol] 11.4 10*3/uL 4.4-11.0 [facility] Basophils (Bld) [#/Vol] 7.5 10*3/uL 2.0-7.7 [facility] Basophils/100 WBC (Bld) 66.3 % 47-70 [facility] Basophils/100 WBC (Bld) 3.3 % 0-5 [facility] Basophils/100 WBC (Bld) 0.5 % 0-1 [facility] Blood erythrocytes count (nu mber/volume)Ordered By: Bernardino Briceno on 11-21-2022 RBC (Bld) [#/Vol] 4.04 10*6/uL 4.2-5.4 [facility] Blood hemoglobin measurement (mass/volume)Ordered By: Bernardino Briceno on 11-21-2022 Hemoglobin (Bld) [Mass/Vol] 12.2 g/dL 12.0-15. 0 [facility] Blood lymphocytes/100 leukoc ytesOrdered By: Bernardino Briceno on 11-21-2022 Lymphocytes/100 WBC (Bld) 21.0 % 19-41 [facility] Blood monocytes/100 leukocyt esOrdered By: Bernardino Briceno on 11-21-2022 Monocytes/100 WBC (Bld) 8.6 % 0-10 [facility] Blood platelet mean volumeOr dered By: Bernardino Briceno on 11-21-2022 Platelet mean volume (Bld) [Entitic vol] 11.4 fL 6.2-12.0 [facility] CO2 (BldA) [Partial pressure ]Ordered By: Rosa Andersen on 11-21-2022 CO2 (Bld) [Partial pressure] 40.9 mm[Hg] 35-45 [facility] Determination of erythrocyte mean corpuscular volume (MCV)Ordered By: Bernardino Briceno on 11-21-2022 MCV (RBC) [Entitic vol] 95.3 fL 81-99 [facility] Glucose Glucometer (BldC) [M ass/Vol]Ordered By: Rosa Andersen on 11-21-2022 Glucose [Mass/Vol] 485 mg/dL 74-106 [facility] Hematocrit Auto (Bld) [Volum e fraction]Ordered By: Bernardino Briceno on 11-21-2022 Hematocrit (Bld) [Volume fraction] 38.5 % 37-47 [facility] INR in Blood by Coagulation assayOrdered By: Rosa Andesren on 11-21-2022 INR Coag (Bld) [Relative time] 1.8 {INR} [facility] MCHC Auto (RBC) [Mass/Vol]Or dered By: Bernardino Briceno on 11-21-2022 MCHC (RBC) [Mass/Vol] 31.7 g/dL 32-36 [facility] No Panel InformationOrdered By: Rosa Andersen on 11-21-2022 21.3 SECONDS 11.7-14.9 [facility] ART [facility] L Radial [facility] Not entered [facility] Room Air [facility] 26 mmol/L [facility] 75.4 pg/mL 0-100 [facility] No Panel InformationOrdered By: Bernardino Briceno on 11-21-2022 30.2 pg 27.0-32.0 [facility] 14.1 % 11.6-14.6 [facility] 49.2 fl 35.1-43.9 [facility] 0.300 % 0.0-0.9 [facility] 0 % 0-5 [facility] 22 mL/min >60 [facility] 26 mL/min >60 [facility] 14.86 ml/min [facility] 16.6 RATIO 10-20 [facility] 24.0 mmol/L 21.0-32.0 [facility] Oxygen (BldA) [Partial press ure]Ordered By: Rosa Andersen on 11-21-2022 Oxygen (Bld) [Partial pressure] 54 mmHG 75-100 [facility] Platelets bldOrdered By: Filemon Briceno on 11-21-2022 Platelets (Bld) [#/Vol] 253 10*3/uL 150-450 [facility] Respiratory pathogens detect ion panel by molecular detection methodOrdered By: Rosa Andersen on 11-21-2022 Respiratory pathogens DNA and RNA panel RABIA+probe (Resp) [facility] Respiratory pathogens DNA and RNA panel RABIA+probe (Resp) [facility] Serum classic neutrophil cyt oplasmic antibody assay (units/volume)Ordered By: Rosa Andersen on 11-21-2022 Neutrophil cytoplasmic Ab.classic Qn (S) <1:20 titer Neg:<1:20 [facility] Serum or plasma calcium sary urement (mass/volume)Ordered By: Bernardino Briceno on 11-21-2022 Calcium [Mass/Vol] 8.8 mg/dL 8.5-10.1 [facility] Serum or plasma creatinine m easurement (mass/volume)Ordered By: Bernardino Briceno on 11-21-2022 Creatinine [Mass/Vol] 2.29 mg/dL 0.55-1.02 [facility] Serum or plasma urea nitroge n measurement (mass/volume)Ordered By: Bernardino Briceno on 11-21-2022 Urea nitrogen [Mass/Vol] 38 mg/dL 7-18 [facility] Serum perinuclear neutrophil cytoplasmic antibody titer by immunofluorescenceOrdered By: Rosa Andersen on 11-21-2022 Neutrophil cytoplasmic Ab.perinuclear IF (S) [Titer] <1:20 titer Neg:<1:20 [facility] Thin prep Papanicolaou smear with manual screeningOrdered By: Bernardino Briceno on 11-21-2022 Thin prep Papanicolaou smear with manual screening 9 5-15 [facility] pH measurementOrdered By: Prateek Andersen on 11-21-2022 pH (Unsp spec) 7.40 [pH] 7.35-7.45 [facility] Blood manual differential co mment interpretation (narrative result)Ordered By: Afua Fernandez on 11-20-2022 Manual differential comment Marcelo (Bld) [Interp] SCANNED [facility] No Panel InformationOrdered By: Afua Fernandez on 11-20-2022 13 pg/mL 3.0-54.0 [facility] 1.94 FEU/ug/m 0.27-0.49 [facility] No Panel InformationOrdered By: Jose J Lezama on 11-12-2022 314 pg/mL 211-911 [facility] Serum or plasma folate measu rement (mass/volume)Ordered By: Jose J Lezama on 11-12-2022 Folate [Mass/Vol] 15.50 ng/mL 3.1-55.4 [facility] Absolute lymphocyte countOrd ered By: Mindy Morrissey on 11-01-2022 Lymphocytes Auto (Unsp spec) [#/Vol] 1.31 10*3/uL 0.83-4.51 [facility] Basophil percentageOrdered B y: Mindy Morrissey on 11-01-2022 Basophil percentage 436 mg/dL 74-106 [facility] Basophil percentage 134 mmol/L 136-145 [facility] Basophil percentage 4.4 mmol/L 3.5-5.1 [facility] Basophil percentage 102 mmol/L 98-107 [facility] Basophils (Bld) [#/Vol] 8.8 10*3/uL 4.4-11.0 [facility] Basophils (Bld) [#/Vol] 6.6 10*3/uL 2.0-7.7 [facility] Basophils/100 WBC (Bld) 74.6 % 47-70 [facility] Basophils/100 WBC (Bld) 1.5 % 0-5 [facility] Basophils/100 WBC (Bld) 0.8 % 0-1 [facility] Blood erythrocytes count (nu mber/volume)Ordered By: Mindy Morrissey on 11-01-2022 RBC (Bld) [#/Vol] 4.54 10*6/uL 4.2-5.4 [facility] Blood hemoglobin measurement (mass/volume)Ordered By: Mindy Morrissey on 11-01-2022 Hemoglobin (Bld) [Mass/Vol] 14.0 g/dL 12.0-15. 0 [facility] Blood lymphocytes/100 leukoc ytesOrdered By: Mindy Morrissey on 11-01-2022 Lymphocytes/100 WBC (Bld) 14.8 % 19-41 [facility] Blood monocytes/100 leukocyt esOrdered By: iMndy Morrissey on 11-01-2022 Monocytes/100 WBC (Bld) 7.8 % 0-10 [facility] Blood platelet mean volumeOr dered By: Mindy Morrissey on 11-01-2022 Platelet mean volume (Bld) [Entitic vol] 12.0 fL 6.2-12.0 [facility] Determination of erythrocyte mean corpuscular volume (MCV)Ordered By: Mindy Morrissey on 11-01-2022 MCV (RBC) [Entitic vol] 94.9 fL 81-99 [facility] Hematocrit Auto (Bld) [Volum e fraction]Ordered By: Midny Morrissey on 11-01-2022 Hematocrit (Bld) [Volume fraction] 43.1 % 37-47 [facility] MCHC Auto (RBC) [Mass/Vol]Or dered By: Mindy Morrissey on 11-01-2022 MCHC (RBC) [Mass/Vol] 32.5 g/dL 32-36 [facility] No Panel InformationOrdered By: Mindy Morrissey on 11-01-2022 30.8 pg 27.0-32.0 [facility] 14.3 % 11.6-14.6 [facility] 49.5 fl 35.1-43.9 [facility] 0.500 % 0.0-0.9 [facility] 0 % 0-5 [facility] 23 mL/min >60 [facility] 28 mL/min >60 [facility] 16.0 RATIO 10-20 [facility] 22.0 mmol/L 21.0-32.0 [facility] 1.93 uIU/mL 0.358-3.74 [facility] 87.2 pg/mL 0-100 [facility] Platelets bldOrdered By: Héctor Morrissey on 11-01-2022 Platelets (Bld) [#/Vol] 230 10*3/uL 150-450 [facility] Serum or plasma calcium sary urement (mass/volume)Ordered By: Mindy Morrissey on 11-01-2022 Calcium [Mass/Vol] 9.1 mg/dL 8.5-10.1 [facility] Serum or plasma creatinine m easurement (mass/volume)Ordered By: Mindy Morrissey on 11-01-2022 Creatinine [Mass/Vol] 2.13 mg/dL 0.55-1.02 [facility] Serum or plasma urea nitroge n measurement (mass/volume)Ordered By: Mindy Morrissey on 11-01-2022 Urea nitrogen [Mass/Vol] 34 mg/dL 7-18 [facility] Thin prep Papanicolaou smear with manual screeningOrdered By: Mindy Morrissey on 11-01-2022 Thin prep Papanicolaou smear with manual screening 10 5-15 [facility] Basophil percentageOrdered B y: Sydnee Andersen on 09-26-2022 Basophil percentage 200 mg/dL 74-106 [facility] Basophil percentage 3.9 mg/dL 2.5-4.9 [facility] Basophil percentage 135 mmol/L 136-145 [facility] Basophil percentage 4.1 mmol/L 3.5-5.1 [facility] Basophil percentage 104 mmol/L 98-107 [facility] No Panel InformationOrdered By: Sydnee Andersen on 09-26-2022 21 mL/min >60 [facility] 26 mL/min >60 [facility] 19.0 RATIO 10-20 [facility] 22.0 mmol/L 21.0-32.0 [facility] Serum or plasma albumin sary urement (mass/volume)Ordered By: Sydnee Andersen on 09-26-2022 Albumin [Mass/Vol] 3.6 g/dL 3.2-5.0 [facility] Serum or plasma calcium sary urement (mass/volume)Ordered By: Sydnee Andersen on 09-26-2022 Calcium [Mass/Vol] 9.1 mg/dL 8.5-10.1 [facility] Serum or plasma creatinine m easurement (mass/volume)Ordered By: Sydnee Andersen on 09-26-2022 Creatinine [Mass/Vol] 2.31 mg/dL 0.55-1.02 [facility] Serum or plasma urea nitroge n measurement (mass/volume)Ordered By: Sydnee Andersen on 09-26-2022 Urea nitrogen [Mass/Vol] 44 mg/dL 7-18 [facility] Basophil percentageOrdered B y: Sydnee Andersen on 09-13-2022 Basophil percentage 102 mg/dL 74-106 [facility] Basophil percentage 3.7 mg/dL 2.5-4.9 [facility] Basophil percentage 139 mmol/L 136-145 [facility] Basophil percentage 3.4 mmol/L 3.5-5.1 [facility] Basophil percentage 105 mmol/L 98-107 [facility] No Panel InformationOrdered By: Sydnee Andersen on 09-13-2022 21 mL/min >60 [facility] 25 mL/min >60 [facility] 16.7 RATIO 10-20 [facility] 26.0 mmol/L 21.0-32.0 [facility] Serum or plasma albumin sary urement (mass/volume)Ordered By: Sydnee Andersen on 09-13-2022 Albumin [Mass/Vol] 3.3 g/dL 3.2-5.0 [facility] Serum or plasma calcium sary urement (mass/volume)Ordered By: Sydnee Andersen on 09-13-2022 Calcium [Mass/Vol] 8.8 mg/dL 8.5-10.1 [facility] Serum or plasma creatinine m easurement (mass/volume)Ordered By: Sydnee Andersen on 09-13-2022 Creatinine [Mass/Vol] 2.34 mg/dL 0.55-1.02 [facility] Serum or plasma urea nitroge n measurement (mass/volume)Ordered By: Sydnee Andersen on 09-13-2022 Urea nitrogen [Mass/Vol] 39 mg/dL 7-18 [facility] Absolute lymphocyte countOrd ered By: Andres Yarbrough on 09-02-2022 Lymphocytes Auto (Unsp spec) [#/Vol] 2.19 10*3/uL 0.83-4.51 [facility] Basophil percentageOrdered B y: Andres Yarbrough on 09-02-2022 Basophil percentage 79 mg/dL 74-106 [facility] Basophil percentage 138 mmol/L 136-145 [facility] Basophil percentage 3.8 mmol/L 3.5-5.1 [facility] Basophil percentage 108 mmol/L 98-107 [facility] Basophils (Bld) [#/Vol] 11.7 10*3/uL 4.4-11.0 [facility] Basophils (Bld) [#/Vol] 7.8 10*3/uL 2.0-7.7 [facility] Basophils/100 WBC (Bld) 66.7 % 47-70 [facility] Basophils/100 WBC (Bld) 2.8 % 0-5 [facility] Basophils/100 WBC (Bld) 0.5 % 0-1 [facility] Blood erythrocytes count (nu mber/volume)Ordered By: Andres Yarbrough on 09-02-2022 RBC (Bld) [#/Vol] 3.78 10*6/uL 4.2-5.4 [facility] Blood hemoglobin measurement (mass/volume)Ordered By: Andres Yarbrough on 09-02-2022 Hemoglobin (Bld) [Mass/Vol] 11.4 g/dL 12.0-15. 0 [facility] Blood lymphocytes/100 leukoc ytesOrdered By: Andres Yarbrough on 09-02-2022 Lymphocytes/100 WBC (Bld) 18.7 % 19-41 [facility] Blood monocytes/100 leukocyt esOrdered By: Andres Yarbrough on 09-02-2022 Monocytes/100 WBC (Bld) 10.6 % 0-10 [facility] Blood platelet mean volumeOr dered By: Andres Yarbrough on 09-02-2022 Platelet mean volume (Bld) [Entitic vol] 10.8 fL 6.2-12.0 [facility] Determination of erythrocyte mean corpuscular volume (MCV)Ordered By: Andres Yarbrough on 09-02-2022 MCV (RBC) [Entitic vol] 95.8 fL 81-99 [facility] Glucose Glucometer (BldC) [M ass/Vol]Ordered By: Andres Yarbrough on 09-02-2022 Glucose [Mass/Vol] 79 mg/dL 74-106 [facility] Hematocrit Auto (Bld) [Volum e fraction]Ordered By: Andres Yarbrough on 09-02-2022 Hematocrit (Bld) [Volume fraction] 36.2 % 37-47 [facility] INR in Blood by Coagulation assayOrdered By: Andres Yarbrough on 09-02-2022 INR Coag (Bld) [Relative time] 3.8 {INR} [facility] MCHC Auto (RBC) [Mass/Vol]Or dered By: Andres Yarbrough on 09-02-2022 MCHC (RBC) [Mass/Vol] 31.5 g/dL 32-36 [facility] No Panel InformationOrdered By: Andres Yarbrough on 09-02-2022 30.2 pg 27.0-32.0 [facility] 14.8 % 11.6-14.6 [facility] 51.3 fl 35.1-43.9 [facility] 0.700 % 0.0-0.9 [facility] 0 % 0-5 [facility] 38.4 SECONDS 11.7-14.9 [facility] 61.2 Seconds 24.1-36.2 [facility] 34 mL/min >60 [facility] 41 mL/min >60 [facility] 22.35 ml/min [facility] 18.7 RATIO 10-20 [facility] 27.0 mmol/L 21.0-32.0 [facility] Platelets bldOrdered By: Jus Yarbrough on 09-02-2022 Platelets (Bld) [#/Vol] 204 10*3/uL 150-450 [facility] Serum or plasma calcium sary urement (mass/volume)Ordered By: Andres Yarbrough on 09-02-2022 Calcium [Mass/Vol] 8.6 mg/dL 8.5-10.1 [facility] Serum or plasma creatinine m easurement (mass/volume)Ordered By: Andres Yarbrough on 09-02-2022 Creatinine [Mass/Vol] 1.55 mg/dL 0.55-1.02 [facility] Serum or plasma urea nitroge n measurement (mass/volume)Ordered By: Andres Yarbrough on 09-02-2022 Urea nitrogen [Mass/Vol] 29 mg/dL 7-18 [facility] Thin prep Papanicolaou smear with manual screeningOrdered By: Andres Yarbrough on 09-02-2022 Thin prep Papanicolaou smear with manual screening 3 5-15 [facility] INR in Blood by Coagulation assayOrdered By: Linn Tran on 08-24-2022 INR Coag (Bld) [Relative time] 2.7 {INR} [facility] No Panel InformationOrdered By: Linn Tran on 08-24-2022 28.9 SECONDS 11.7-14.9 [facility] Absolute lymphocyte countOrd ered By: Mindy Morrissey on 08-15-2022 Lymphocytes Auto (Unsp spec) [#/Vol] 2.54 10*3/uL 0.83-4.51 [facility] Basophil percentageOrdered B y: Mindy Morrissey on 08-15-2022 Basophil percentage 120 mg/dL 74-106 [facility] Basophil percentage 136 mmol/L 136-145 [facility] Basophil percentage 4.4 mmol/L 3.5-5.1 [facility] Basophil percentage 104 mmol/L 98-107 [facility] Basophils (Bld) [#/Vol] 11.1 10*3/uL 4.4-11.0 [facility] Basophils (Bld) [#/Vol] 7.2 10*3/uL 2.0-7.7 [facility] Basophils/100 WBC (Bld) 65.0 % 47-70 [facility] Basophils/100 WBC (Bld) 2.9 % 0-5 [facility] Basophils/100 WBC (Bld) 0.7 % 0-1 [facility] Blood erythrocytes count (nu mber/volume)Ordered By: Mindy Morrissey on 08-15-2022 RBC (Bld) [#/Vol] 4.66 10*6/uL 4.2-5.4 [facility] Blood hemoglobin measurement (mass/volume)Ordered By: Mindy Morrissey on 08-15-2022 Hemoglobin (Bld) [Mass/Vol] 14.2 g/dL 12.0-15. 0 [facility] Blood lymphocytes/100 leukoc ytesOrdered By: Mindy Morrissey on 08-15-2022 Lymphocytes/100 WBC (Bld) 22.9 % 19-41 [facility] Blood monocytes/100 leukocyt esOrdered By: Mindy Morrissey on 08-15-2022 Monocytes/100 WBC (Bld) 8.1 % 0-10 [facility] Blood platelet mean volumeOr dered By: Mindy Morrissey on 08-15-2022 Platelet mean volume (Bld) [Entitic vol] 11.3 fL 6.2-12.0 [facility] Determination of erythrocyte mean corpuscular volume (MCV)Ordered By: Mindy Morrissey on 08-15-2022 MCV (RBC) [Entitic vol] 95.1 fL 81-99 [facility] Hematocrit Auto (Bld) [Volum e fraction]Ordered By: Mindy Morrissey on 08-15-2022 Hematocrit (Bld) [Volume fraction] 44.3 % 37-47 [facility] MCHC Auto (RBC) [Mass/Vol]Or dered By: Mindy Morrissey on 08-15-2022 MCHC (RBC) [Mass/Vol] 32.1 g/dL 32-36 [facility] No Panel InformationOrdered By: Mindy Morrissey on 08-15-2022 30.5 pg 27.0-32.0 [facility] 14.0 % 11.6-14.6 [facility] 48.5 fl 35.1-43.9 [facility] 0.400 % 0.0-0.9 [facility] 0 % 0-5 [facility] 30 mL/min >60 [facility] 37 mL/min >60 [facility] 21.6 RATIO 10-20 [facility] 24.0 mmol/L 21.0-32.0 [facility] 76.8 pg/mL 0-100 [facility] Platelets bldOrdered By: Héctor Morrissey on 08-15-2022 Platelets (Bld) [#/Vol] 237 10*3/uL 150-450 [facility] Serum or plasma calcium sary urement (mass/volume)Ordered By: Mindy Morrissey on 08-15-2022 Calcium [Mass/Vol] 9.2 mg/dL 8.5-10.1 [facility] Serum or plasma creatinine m easurement (mass/volume)Ordered By: Mindy Morrissey on 08-15-2022 Creatinine [Mass/Vol] 1.71 mg/dL 0.55-1.02 [facility] Serum or plasma urea nitroge n measurement (mass/volume)Ordered By: Mindy Morrissey on 08-15-2022 Urea nitrogen [Mass/Vol] 37 mg/dL 7-18 [facility] Thin prep Papanicolaou smear with manual screeningOrdered By: Mindy Morrissey on 08-15-2022 Thin prep Papanicolaou smear with manual screening 8 5-15 [facility] No Panel InformationOrdered By: Galileo Albert on 08-05-2022 2.5 [facility] Whole blood prothrombin time Ordered By: Galileo Albert on 08-05-2022 PT Coag (Bld) [Time] 26.8 s 11.7-14.9 [facility] No Panel InformationOrdered By: Galileo Albert on 08-02-2022 2.8 [facility] Whole blood prothrombin time Ordered By: Galileo Albert on 08-02-2022 PT Coag (Bld) [Time] 29.7 s 11.7-14.9 [facility] Basophil percentageOrdered B y: Galileo Albert on 07-31-2022 Basophil percentage 313 mg/dL 74-106 [facility] Basophil percentage 136 mmol/L 136-145 [facility] Basophil percentage 4.1 mmol/L 3.5-5.1 [facility] Basophil percentage 105 mmol/L 98-107 [facility] Basophils (Bld) [#/Vol] 9.7 10*3/uL 4.4-11.0 [facility] Blood erythrocytes count (nu mber/volume)Ordered By: Galileo Albert on 07-31-2022 RBC (Bld) [#/Vol] 4.49 10*6/uL 4.2-5.4 [facility] Blood hemoglobin measurement (mass/volume)Ordered By: Galileo Albert on 07-31-2022 Hemoglobin (Bld) [Mass/Vol] 13.5 g/dL 12.0-15. 0 [facility] Blood platelet mean volumeOr dered By: Galileo Albert on 07-31-2022 Platelet mean volume (Bld) [Entitic vol] 11.9 fL 6.2-12.0 [facility] Determination of erythrocyte mean corpuscular volume (MCV)Ordered By: Galileo Albert on 07-31-2022 MCV (RBC) [Entitic vol] 95.5 fL 81-99 [facility] Hematocrit Auto (Bld) [Volum e fraction]Ordered By: Galileo Albert on 07-31-2022 Hematocrit (Bld) [Volume fraction] 42.9 % 37-47 [facility] MCHC Auto (RBC) [Mass/Vol]Or dered By: Galileo Albert on 07-31-2022 MCHC (RBC) [Mass/Vol] 31.5 g/dL 32-36 [facility] No Panel InformationOrdered By: Galileo Albert on 07-31-2022 30.1 pg 27.0-32.0 [facility] 13.3 % 11.6-14.6 [facility] 47.0 fl 35.1-43.9 [facility] 38 mL/min >60 [facility] 46 mL/min >60 [facility] 32.6 RATIO 10-20 [facility] 22.0 mmol/L 21.0-32.0 [facility] Platelets bldOrdered By: Corrina Albert on 07-31-2022 Platelets (Bld) [#/Vol] 330 10*3/uL 150-450 [facility] Serum or plasma calcium sary urement (mass/volume)Ordered By: Galileo Albert on 07-31-2022 Calcium [Mass/Vol] 9.5 mg/dL 8.5-10.1 [facility] Serum or plasma creatinine m easurement (mass/volume)Ordered By: Galileo Albert on 07-31-2022 Creatinine [Mass/Vol] 1.41 mg/dL 0.55-1.02 [facility] Serum or plasma urea nitroge n measurement (mass/volume)Ordered By: Galileo Albert on 07-31-2022 Urea nitrogen [Mass/Vol] 46 mg/dL 7-18 [facility] Thin prep Papanicolaou smear with manual screeningOrdered By: Galileo Albert on 07-31-2022 Thin prep Papanicolaou smear with manual screening 9 5-15 [facility] Whole blood hemoglobin A1c/t otal hemoglobin ratio (mass fraction)Ordered By: Galileo Albert on 07-29-2022 HbA1c (Bld) [Mass fraction] 7.9 % 3.8-5.6 [facility] Absolute lymphocyte countOrd ered By: Galileo Albert on 07-26-2022 Lymphocytes Auto (Unsp spec) [#/Vol] 2.16 10*3/uL 0.83-4.51 [facility] Basophil percentageOrdered B y: Galileo Albert on 07-26-2022 Basophil percentage 314 mg/dL 74-106 [facility] Basophil percentage 132 mmol/L 136-145 [facility] Basophil percentage 3.7 mmol/L 3.5-5.1 [facility] Basophil percentage 100 mmol/L 98-107 [facility] Basophils (Bld) [#/Vol] 12.9 10*3/uL 4.4-11.0 [facility] Basophils (Bld) [#/Vol] 9.2 10*3/uL 2.0-7.7 [facility] Basophils/100 WBC (Bld) 71.1 % 47-70 [facility] Basophils/100 WBC (Bld) 2.6 % 0-5 [facility] Basophils/100 WBC (Bld) 0.6 % 0-1 [facility] Blood erythrocytes count (nu mber/volume)Ordered By: Galileo Albert on 07-26-2022 RBC (Bld) [#/Vol] 4.36 10*6/uL 4.2-5.4 [facility] Blood hemoglobin measurement (mass/volume)Ordered By: Galileo Albert on 07-26-2022 Hemoglobin (Bld) [Mass/Vol] 13.2 g/dL 12.0-15. 0 [facility] Blood lymphocytes/100 leukoc ytesOrdered By: Galileo Albert on 07-26-2022 Lymphocytes/100 WBC (Bld) 16.7 % 19-41 [facility] Blood monocytes/100 leukocyt esOrdered By: Galileo Albert on 07-26-2022 Monocytes/100 WBC (Bld) 8.5 % 0-10 [facility] Blood platelet mean volumeOr dered By: Galileo Albert on 07-26-2022 Platelet mean volume (Bld) [Entitic vol] 12.4 fL 6.2-12.0 [facility] Determination of erythrocyte mean corpuscular volume (MCV)Ordered By: Galileo Albert on 07-26-2022 MCV (RBC) [Entitic vol] 94.0 fL 81-99 [facility] Hematocrit Auto (Bld) [Volum e fraction]Ordered By: Galileo Albert on 07-26-2022 Hematocrit (Bld) [Volume fraction] 41.0 % 37-47 [facility] INR in Blood by Coagulation assayOrdered By: Galileo Albert on 07-26-2022 INR Coag (Bld) [Relative time] 2.5 {INR} [facility] MCHC Auto (RBC) [Mass/Vol]Or dered By: Galileo Albert on 07-26-2022 MCHC (RBC) [Mass/Vol] 32.2 g/dL 32-36 [facility] No Panel InformationOrdered By: Galileo Albert on 07-26-2022 30.3 pg 27.0-32.0 [facility] 13.6 % 11.6-14.6 [facility] 46.9 fl 35.1-43.9 [facility] 0.500 % 0.0-0.9 [facility] 0 % 0-5 [facility] 27.2 SECONDS 11.7-14.9 [facility] 34 mL/min >60 [facility] 41 mL/min >60 [facility] 37.0 RATIO 10-20 [facility] 19.0 mmol/L 21.0-32.0 [facility] Platelets bldOrdered By: Corrina Albert on 07-26-2022 Platelets (Bld) [#/Vol] 255 10*3/uL 150-450 [facility] Serum or plasma calcium sary urement (mass/volume)Ordered By: Galileo Albert on 07-26-2022 Calcium [Mass/Vol] 9.5 mg/dL 8.5-10.1 [facility] Serum or plasma creatinine m easurement (mass/volume)Ordered By: Galileo Albert on 07-26-2022 Creatinine [Mass/Vol] 1.54 mg/dL 0.55-1.02 [facility] Serum or plasma urea nitroge n measurement (mass/volume)Ordered By: Galileo Albert on 07-26-2022 Urea nitrogen [Mass/Vol] 57 mg/dL 7-18 [facility] Thin prep Papanicolaou smear with manual screeningOrdered By: Galileo Albert on 07-26-2022 Thin prep Papanicolaou smear with manual screening 13 5-15 [facility] Glucose Glucometer (BldC) [M ass/Vol]Ordered By: Dr. Cristobal on 07-25-2022 Glucose [Mass/Vol] 189 mg/dL 74-106 [facility] Absolute lymphocyte countOrd ered By: Dr. Cristobal on 07-24-2022 Lymphocytes Auto (Unsp spec) [#/Vol] 2.27 10*3/uL 0.83-4.51 [facility] Basophil percentageOrdered B y: Dr. Cristobal on 07-24-2022 Basophil percentage 211 mg/dL 74-106 [facility] Basophil percentage 134 mmol/L 136-145 [facility] Basophil percentage 4.0 mmol/L 3.5-5.1 [facility] Basophil percentage 103 mmol/L 98-107 [facility] Basophils (Bld) [#/Vol] 12.1 10*3/uL 4.4-11.0 [facility] Basophils (Bld) [#/Vol] 8.1 10*3/uL 2.0-7.7 [facility] Basophils/100 WBC (Bld) 66.5 % 47-70 [facility] Basophils/100 WBC (Bld) 4.2 % 0-5 [facility] Basophils/100 WBC (Bld) 0.7 % 0-1 [facility] Blood erythrocytes count (nu mber/volume)Ordered By: Dr. Cristobal on 07-24-2022 RBC (Bld) [#/Vol] 4.55 10*6/uL 4.2-5.4 [facility] Blood hemoglobin measurement (mass/volume)Ordered By: Dr. Cristobal on 07-24-2022 Hemoglobin (Bld) [Mass/Vol] 13.8 g/dL 12.0-15. 0 [facility] Blood lymphocytes/100 leukoc ytesOrdered By: Dr. Cristobal on 07-24-2022 Lymphocytes/100 WBC (Bld) 18.8 % 19-41 [facility] Blood monocytes/100 leukocyt esOrdered By: Dr. Cristobal on 07-24-2022 Monocytes/100 WBC (Bld) 9.3 % 0-10 [facility] Blood platelet mean volumeOr dered By: Dr. Cristobal on 07-24-2022 Platelet mean volume (Bld) [Entitic vol] 11.7 fL 6.2-12.0 [facility] Determination of erythrocyte mean corpuscular volume (MCV)Ordered By: Dr. Cristobal on 07-24-2022 MCV (RBC) [Entitic vol] 94.9 fL 81-99 [facility] Hematocrit Auto (Bld) [Volum e fraction]Ordered By: Dr. Cristobal on 07-24-2022 Hematocrit (Bld) [Volume fraction] 43.2 % 37-47 [facility] INR in Blood by Coagulation assayOrdered By: Dr. Cristobal on 07-24-2022 INR Coag (Bld) [Relative time] 2.2 {INR} [facility] MCHC Auto (RBC) [Mass/Vol]Or dered By: Dr. Cristobal on 07-24-2022 MCHC (RBC) [Mass/Vol] 31.9 g/dL 32-36 [facility] No Panel InformationOrdered By: Dr. Cristobal on 07-24-2022 30.3 pg 27.0-32.0 [facility] 13.7 % 11.6-14.6 [facility] 48.0 fl 35.1-43.9 [facility] 0.500 % 0.0-0.9 [facility] 0 % 0-5 [facility] 24.6 SECONDS 11.7-14.9 [facility] 37 mL/min >60 [facility] 45 mL/min >60 [facility] 24.40 ml/min [facility] 31.0 RATIO 10-20 [facility] 20.0 mmol/L 21.0-32.0 [facility] Platelets bldOrdered By: Dr. Cristobal on 07-24-2022 Platelets (Bld) [#/Vol] 239 10*3/uL 150-450 [facility] Serum or plasma calcium sary urement (mass/volume)Ordered By: Dr. Cristobal on 07-24-2022 Calcium [Mass/Vol] 9.4 mg/dL 8.5-10.1 [facility] Serum or plasma creatinine m easurement (mass/volume)Ordered By: Dr. Cristobal on 07-24-2022 Creatinine [Mass/Vol] 1.42 mg/dL 0.55-1.02 [facility] Serum or plasma urea nitroge n measurement (mass/volume)Ordered By: Dr. Cristobal on 07-24-2022 Urea nitrogen [Mass/Vol] 44 mg/dL 7-18 [facility] Thin prep Papanicolaou smear with manual screeningOrdered By: Dr. Cristobal on 07-24-2022 Thin prep Papanicolaou smear with manual screening 11 5-15 [facility] Blood manual differential co mment interpretation (narrative result)Ordered By: Dr. Cristobal on 07-22-2022 Manual differential comment Marcelo (Bld) [Interp] SCANNED [facility] Review by pathologistOrdered By: Dr. Cristobal on 07-22-2022 Pathologist review Marcelo (Unsp spec) [Interp] Reviewed [facility] Basophil percentageOrdered B y: Dr. Horan on 07-19-2022 Basophil percentage 148 [facility] mg/dL <[facility] No Panel InformationOrdered By: Dr. Horan on 07-19-2022 6.40 uIU/mL 0.358-3.74 [facility] Serum or plasma cholesterol in HDL measurement (mass/volume)Ordered By: Dr. Horan on 07-19-2022 Cholesterol in HDL [Mass/Vol] 48 mg/dL >40 [facility] Serum or plasma cholesterol in VLDL measurement (mass/volume)Ordered By: Dr. Horan on 07-19-2022 Cholesterol in VLDL [Mass/Vol] 46 mg/dL 5-40 [facility] Serum or plasma low density lipoprotein (LDL) cholesterol measurement (mass/volume)Ordered By: Dr. Horan on 07-19-2022 Cholesterol in LDL [Mass/Vol] 54 mg/dL 0-130 [facility] Whole blood hemoglobin A1c/t otal hemoglobin ratio (mass fraction)Ordered By: Dr. Horan on 07-19-2022 HbA1c (Bld) [Mass fraction] 7.8 % 3.8-5.6 [facility] Absolute lymphocyte countOrd ered By: Dr. Fernandez on 07-18-2022 Lymphocytes Auto (Unsp spec) [#/Vol] 2.38 10*3/uL 0.83-4.51 [facility] Basophil percentageOrdered B y: Dr. Fernandez on 07-18-2022 Basophil percentage 0 SEEN /hpf 0-5 [facility] Basophils/100 WBC (Bld) 0.8 % 0-1 [facility] Chloride [Moles/Vol] 105 mmol/L 98-107 [facility] Eosinophils/100 WBC (Bld) 2.6 % 0-5 [facility] Glucose [Mass/Vol] 297 mg/dL 74-106 [facility] Comment on above: Glucose result great er than or equal to 200 mg/dLsuggests DIABETES MELLITUS per A.D.A. criteria. Neutrophils (Bld) [#/Vol] 6.5 10*3/uL 2.0-7.7 [facility] Neutrophils/100 WBC (Bld) 64.1 % 47-70 [facility] Potassium [Moles/Vol] 3.8 mmol/L 3.5-5.1 [facility] Sodium [Moles/Vol] 137 mmol/L 136-145 [facility] WBC (Bld) [#/Vol] 10.2 10*3/uL 4.4-11.0 [facility] Bilirubin Test strip Ql (U)O rdered By: Dr. Fernandez on 07-18-2022 Bilirubin Ql (U) Negative Negative [facility] Blood erythrocytes count (nu mber/volume)Ordered By: Dr. Fernandez on 07-18-2022 RBC (Bld) [#/Vol] 4.65 10*6/uL 4.2-5.4 [facility] Blood hemoglobin measurement (mass/volume)Ordered By: Dr. Fernandez on 07-18-2022 Hemoglobin (Bld) [Mass/Vol] 14.2 g/dL 12.0-15. 0 [facility] Blood lymphocytes/100 leukoc ytesOrdered By: Dr. Fernandez on 07-18-2022 Lymphocytes/100 WBC (Bld) 23.4 % 19-41 [facility] Blood monocytes/100 leukocyt esOrdered By: Dr. Fernandez on 07-18-2022 Monocytes/100 WBC (Bld) 7.8 % 0-10 [facility] Blood platelet mean volumeOr dered By: Dr. Fernandez on 07-18-2022 Platelet mean volume (Bld) [Entitic vol] 11.5 fL 6.2-12.0 [facility] Determination of erythrocyte mean corpuscular volume (MCV)Ordered By: Dr. Fernandez on 07-18-2022 MCV (RBC) [Entitic vol] 94.2 fL 81-99 [facility] Glucose Glucometer (BldC) [M ass/Vol]Ordered By: Dr. Fernandez on 07-18-2022 Glucose [Mass/Vol] 242 mg/dL 74-106 [facility] Comment on above: MANAGEMENT OF PATIEN T CARE PER NURSING PROTOCOL Hematocrit Auto (Bld) [Volum e fraction]Ordered By: Dr. Fernandez on 07-18-2022 Hematocrit (Bld) [Volume fraction] 43.8 % 37-47 [facility] INR in Blood by Coagulation assayOrdered By: Dr. Fernandez on 07-18-2022 INR Coag (Bld) [Relative time] 1.5 {INR} [facility] Ketones Test strip Ql (U)Ord ered By: Dr. Fernandez on 07-18-2022 Ketones Ql (U) Negative Negative [facility] Laboratory - Chemistry and C hemistry - challengeOrdered By: Dr. Fernandez on 07-18-2022 CO2 [Moles/Vol] 22.0 mmol/L 21.0-32.0 [facility] Natriuretic peptide B (Bld) [Mass/Vol] 66.9 pg/mL 0-100 [facility] Urea nitrogen/Creatinine [Mass ratio] 16.5 mg/mg 10-20 [facility] - CoagulationOrde red By: Dr. Fernandez on 07-18-2022 PT Coag (PPP) [Time] 18.2 s 11.7-14.9 [facility] - Hematology and Cell countsOrdered By: Dr. Fernandez on 07-18-2022 Erythrocyte distribution width (RBC) [Entitic vol] 48.0 fL 35.1-43.9 [facility] Erythrocyte distribution width (RBC) [Ratio] 14.0 % 11.6-14.6 [facility] Immature granulocytes/100 WBC (Bld) 1.300 % 0.0-0.9 [facility] Comment on above: IG% - Immature Granu locytes (promyelocytes, myelocytes and metamyelocytes) > 1% indicates that a LEFT SHIFT is Present. MCH (RBC) [Entitic mass] 30.5 pg 27.0-32.0 [facility] Nucleated RBC/100 WBC (Bld) [Ratio] 0 % 0-5 [facility] MCHC Auto (RBC) [Mass/Vol]Or dered By: Dr. Fernandez on 07-18-2022 MCHC (RBC) [Mass/Vol] 32.4 g/dL 32-36 [facility] Mucus LM Ql (Urine sed)Order ed By: Dr. Fernandez on 07-18-2022 Mucus Ql (Urine sed) 0 SEEN /hpf [facility] Nitrite Test strip Ql (U)Ord ered By: Dr. Fernandez on 07-18-2022 Nitrite Ql (U) Negative Negative [facility] No Panel InformationOrdered By: Dr. Fernandez on 07-18-2022 Estimated Creatinine Clearance Calc 21.12 ml/min [facility] Estimated GFR (MDRD) Amer 38 mL/min >60 [facility] Comment on above: GFR Calc Estimated GFR (MDRD) Non-Af Amer 32 mL/min >60 [facility] Comment on above: Non- GFR Calc Troponin I High Sensitivity 13 pg/mL 3.0-54.0 [facility] Comment on above: Please Note: New Carly t Units and Gender Specific Reference Ranges. For more information see Policy Stat Procedure [place] High Sensitivity Troponin (TNIH) and attachments. 13 pg/mL 3.0-54.0 [facility] 66.9 pg/mL 0-100 [facility] Platelets bldOrdered By: Dr. Fernandez on 07-18-2022 Platelets (Bld) [#/Vol] 239 10*3/uL 150-450 [facility] Protein Test strip Ql (U)Ord ered By: Dr. Fernandez on 07-18-2022 Protein Ql (U) 30 mg/dl Negative [facility] Serum or plasma calcium sary urement (mass/volume)Ordered By: Dr. Fernandez on 07-18-2022 Calcium [Mass/Vol] 9.4 mg/dL 8.5-10.1 [facility] Serum or plasma creatinine m easurement (mass/volume)Ordered By: Dr. Fernandez on 07-18-2022 Creatinine [Mass/Vol] 1.64 mg/dL 0.55-1.02 [facility] Comment on above: The validity of the calculated GFR & GFRAA in patients over 70 years has not been determined. Clinical correlation is essential. Serum or plasma urea nitroge n measurement (mass/volume)Ordered By: Dr. Fernandez on 07-18-2022 Urea nitrogen [Mass/Vol] 27 mg/dL 7-18 [facility] Squamous epithelial cells de tection in urine sediment by light microscopyOrdered By: Dr. Fernandez on 07-18-2022 Epithelial cells.squamous LM Ql (Urine sed) 0-5 SEEN /hpf 5-10 [facility] Thin prep Papanicolaou smear with manual screeningOrdered By: Dr. Fernandez on 07-18-2022 Thin prep Papanicolaou smear with manual screening 10 5-15 [facility] Urine blood detectionOrdered By: Dr. Fernandez on 07-18-2022 RBC Ql (U) Negative Negative [facility] RBC Ql (U) 0 SEEN /hpf 0-5 [facility] Urine clarityOrdered By: Dr. Fernandez on 07-18-2022 Clarity (U) Sl. Cloudy Clear [facility] Urine color determinationOrd ered By: Dr. Fernandez on 07-18-2022 Color (U) Yellow Yellow [facility] Urine glucose detectionOrder ed By: Dr. Fernandez on 07-18-2022 Glucose Ql (U) 100 mg/dl Normal [facility] Urine leukocyte esterase det ection by dipstickOrdered By: Dr. Fernandez on 07-18-2022 Leukocyte esterase Test strip Ql (U) Negative Negative [facility] Urine pHOrdered By: Dr. Jose greene on 07-18-2022 pH (U) 6.0 [pH] 5.0 - 8.0 [facility] Urine sediment bacteria coun t by microscopy (number/high power field)Ordered By: Dr. Fernandez on 07-18-2022 Bacteria LM.HPF (Urine sed) [#/Area] 0 /[HPF] None Seen [facility] Urine specific gravity measu rementOrdered By: Dr. Fernandez on 07-18-2022 Specific gravity (U) [Rel density] 1.015 1.002-1.030 [facility] Urobilinogen Auto test strip Ql (U)Ordered By: Dr. Fernandez on 07-18-2022 Urobilinogen Ql (U) Normal mg/dl Normal [facility] Basophil percentageOrdered B y: Dr. Andersen on 07-17-2022 Basophil percentage 4.3 mg/dL 2.5-4.9 [facility] Basophil percentage 138 mg/dL 74-106 [facility] Basophil percentage 139 mmol/L 136-145 [facility] Basophil percentage 3.7 mmol/L 3.5-5.1 [facility] Basophil percentage 107 mmol/L 98-107 [facility] Chloride [Moles/Vol] 107 mmol/L 98-107 [facility] Glucose [Mass/Vol] 138 mg/dL 74-106 [facility] Comment on above: Fasting Glucose resu lt greater than or equal to 126 mg/dL suggests DIABETES MELLITUS per A.D.A. criteria. Potassium [Moles/Vol] 3.7 mmol/L 3.5-5.1 [facility] Sodium [Moles/Vol] 139 mmol/L 136-145 [facility] INR in Blood by Coagulation assayOrdered By: Dr. Andersen on 07-17-2022 INR Coag (Bld) [Relative time] 1.6 {INR} [facility] Laboratory - Chemistry and C hemistry - challengeOrdered By: Dr. Andersen on 07-17-2022 CO2 [Moles/Vol] 21.0 mmol/L 21.0-32.0 [facility] Urea nitrogen/Creatinine [Mass ratio] 19.5 mg/mg 10- [facility] Laboratory - CoagulationOrde red By: Dr. Andersen on 07-17-2022 PT Coag (PPP) [Time] 18.9 s 11.7-14.9 [facility] No Panel InformationOrdered By: Dr. Andersen on 07-17-2022 Estimated GFR (MDRD) Amer 40 mL/min >60 [facility] Comment on above: GFR Calc Estimated GFR (MDRD) Non-Af Amer 33 mL/min >60 [facility] Comment on above: Non- GFR Calc 18.9 SECONDS 11.7-14.9 [facility] 33 mL/min >60 [facility] 40 mL/min >60 [facility] 19.5 RATIO 10- [facility] 21.0 mmol/L 21.0-32.0 [facility] Serum or plasma albumin sary urement (mass/volume)Ordered By: Dr. Andersen on 07-17-2022 Albumin [Mass/Vol] 3.6 g/dL 3.2-5.0 [facility] Serum or plasma calcium sary urement (mass/volume)Ordered By: Dr. Andersen on 07-17-2022 Calcium [Mass/Vol] 9.3 mg/dL 8.5-10.1 [facility] Serum or plasma creatinine m easurement (mass/volume)Ordered By: Dr. Andersen on 07-17-2022 Creatinine [Mass/Vol] 1.59 mg/dL 0.55-1.02 [facility] Comment on above: The validity of the calculated GFR & GFRAA in patients over 70 years has not been determined. Clinical correlation is essential. Serum or plasma urea nitroge n measurement (mass/volume)Ordered By: Dr. Andersen on 07-17-2022 Urea nitrogen [Mass/Vol] 31 mg/dL 7-18 [facility] INR in Blood by Coagulation assayOrdered By: Bam Phillips on 06-24-2022 INR Coag (Bld) [Relative time] 2.3 {INR} [facility] Laboratory - CoagulationOrde red By: Bam Phillips on 06-24-2022 PT Coag (PPP) [Time] 25.8 s 11.7-14.9 [facility] No Panel InformationOrdered By: Bam Phillips on 06-24-2022 25.8 SECONDS 11.7-14.9 [facility] Whole blood hemoglobin A1c/t otal hemoglobin ratio (mass fraction)Ordered By: Lucretia Akhtar on 06-24-2022 HbA1c (Bld) [Mass fraction] 8.4 % 3.8-5.6 [facility] Comment on above: Normal < 5.7 % Predi abetic 5.7 - 6.4 % Diabetic >or= 6.5 % Please note range changes. Basophil percentageOrdered B y: Dr. Andersen on 06-10-2022 Basophil percentage 3.8 mg/dL 2.5-4.9 [facility] Basophil percentage 142 mg/dL 74-106 [facility] Basophil percentage 139 mmol/L 136-145 [facility] Basophil percentage 4.6 mmol/L 3.5-5.1 [facility] Basophil percentage 109 mmol/L 98-107 [facility] Chloride [Moles/Vol] 109 mmol/L 98-107 [facility] Glucose [Mass/Vol] 142 mg/dL 74-106 [facility] Comment on above: Fasting Glucose resu lt greater than or equal to 126 mg/dL suggests DIABETES MELLITUS per A.D.A. criteria. Potassium [Moles/Vol] 4.6 mmol/L 3.5-5.1 [facility] Sodium [Moles/Vol] 139 mmol/L 136-145 [facility] INR in Blood by Coagulation assayOrdered By: Dr. Andersen on 06-10-2022 INR Coag (Bld) [Relative time] 1.5 {INR} [facility] Laboratory - Chemistry and C hemistry - challengeOrdered By: Dr. Andersen on 06-10-2022 CO2 [Moles/Vol] 22.0 mmol/L 21.0-32.0 [facility] Urea nitrogen/Creatinine [Mass ratio] 14.4 mg/mg 10- [facility] Laboratory - CoagulationOrde red By: Dr. Andersen on 06-10-2022 PT Coag (PPP) [Time] 18.1 s 11.7-14.9 [facility] No Panel InformationOrdered By: Dr. Andersen on 06-10-2022 Estimated GFR (MDRD) Amer 39 mL/min >60 [facility] Comment on above: GFR Calc Estimated GFR (MDRD) Non-Af Amer 33 mL/min >60 [facility] Comment on above: Non- GFR Calc Parathyroid Hormone (Intact) 109.0 pg/mL 18.4-80.1 [facility] 18.1 SECONDS 11.7-14.9 [facility] 33 mL/min >60 [facility] 39 mL/min >60 [facility] 14.4 RATIO - [facility] 22.0 mmol/L 21.0-32.0 [facility] 109.0 pg/mL 18.4-80.1 [facility] Serum or plasma albumin sary urement (mass/volume)Ordered By: Dr. Andersen on 06-10-2022 Albumin [Mass/Vol] 3.5 g/dL 3.2-5.0 [facility] Serum or plasma calcium sary urement (mass/volume)Ordered By: Dr. Andersen on 06-10-2022 Calcium [Mass/Vol] 9.0 mg/dL 8.5-10.1 [facility] Serum or plasma creatinine m easurement (mass/volume)Ordered By: Dr. Andersen on 06-10-2022 Creatinine [Mass/Vol] 1.60 mg/dL 0.55-1.02 [facility] Comment on above: The validity of the calculated GFR & GFRAA in patients over 70 years has not been determined. Clinical correlation is essential. Serum or plasma urea nitroge n measurement (mass/volume)Ordered By: Dr. Andersen on 06-10-2022 Urea nitrogen [Mass/Vol] 23 mg/dL 7-18 [facility] Urine creatinine measurement (mass/volume)Ordered By: Dr. Andersen on 06-10-2022 Creatinine (U) [Mass/Vol] 43.10 mg/dL NO RANGE EST. [facility] Urine protein measurement (m ass/volume)Ordered By: Dr. Andersen on 06-10-2022 Protein (U) [Mass/Vol] 6.7 mg/dL 0.0-11.8 [facility] [place] Urine protein/creatinine mas s ratioOrdered By: Dr. Andersen on 06-10-2022 Protein/Creatinine (U) [Mass ratio] 155 mg/g CRE 0-200 [facility] Absolute lymphocyte countOrd ered By: Dr. Prado on 05-28-2022 Lymphocytes Auto (Unsp spec) [#/Vol] 2.29 10*3/uL 0.83-4.51 [facility] Basophil percentageOrdered B y: Dr. Prado on 05-28-2022 Basophil percentage 0 SEEN /hpf 0-5 [facility] Basophil percentage 230 mg/dL 74-106 [facility] Basophil percentage 133 mmol/L 136-145 [facility] Basophil percentage 4.6 mmol/L 3.5-5.1 [facility] Basophil percentage 105 mmol/L 98-107 [facility] Basophils (Bld) [#/Vol] 14.6 10*3/uL 4.4-11.0 [facility] Basophils (Bld) [#/Vol] 10.9 10*3/uL 2.0-7.7 [facility] Basophils/100 WBC (Bld) 0.7 % 0-1 [facility] Basophils/100 WBC (Bld) 74.5 % 47-70 [facility] Basophils/100 WBC (Bld) 1.7 % 0-5 [facility] Chloride [Moles/Vol] 105 mmol/L 98-107 [facility] Eosinophils/100 WBC (Bld) 1.7 % 0-5 [facility] Glucose [Mass/Vol] 230 mg/dL 74-106 [facility] Comment on above: Glucose result great er than or equal to 200 mg/dLsuggests DIABETES MELLITUS per A.D.A. criteria. Neutrophils (Bld) [#/Vol] 10.9 10*3/uL 2.0-7.7 [facility] Neutrophils/100 WBC (Bld) 74.5 % 47-70 [facility] Potassium [Moles/Vol] 4.6 mmol/L 3.5-5.1 [facility] Sodium [Moles/Vol] 133 mmol/L 136-145 [facility] WBC (Bld) [#/Vol] 14.6 10*3/uL 4.4-11.0 [facility] Bilirubin Test strip Ql (U)O rdered By: Dr. Prado on 05-28-2022 Bilirubin Ql (U) Negative Negative [facility] Blood erythrocytes count (nu mber/volume)Ordered By: Dr. Prado on 05-28-2022 RBC (Bld) [#/Vol] 5.01 10*6/uL 4.2-5.4 [facility] Blood hemoglobin measurement (mass/volume)Ordered By: Dr. Prado on 05-28-2022 Hemoglobin (Bld) [Mass/Vol] 15.4 g/dL 12.0-15. 0 [facility] Blood lymphocytes/100 leukoc ytesOrdered By: Dr. Prado on 05-28-2022 Lymphocytes/100 WBC (Bld) 15.7 % 19-41 [facility] Blood monocytes/100 leukocyt esOrdered By: Dr. Prado on 05-28-2022 Monocytes/100 WBC (Bld) 6.9 % 0-10 [facility] Blood platelet mean volumeOr dered By: Dr. Prado on 05-28-2022 Platelet mean volume (Bld) [Entitic vol] 11.5 fL 6.2-12.0 [facility] Determination of erythrocyte mean corpuscular volume (MCV)Ordered By: Dr. Prado on 05-28-2022 MCV (RBC) [Entitic vol] 99.2 fL 81-99 [facility] Glucose Glucometer (BldC) [M ass/Vol]on 05-28-2022 Glucose [Mass/Vol] 222 mg/dL 74-106 [facility] Comment on above: MANAGEMENT OF PATIEN T CARE PER NURSING PROTOCOL Hematocrit Auto (Bld) [Volum e fraction]Ordered By: Dr. Prado on 05-28-2022 Hematocrit (Bld) [Volume fraction] 49.7 % 37-47 [facility] Ketones Test strip Ql (U)Ord ered By: Dr. Prado on 05-28-2022 Ketones Ql (U) Negative Negative [facility] Laboratory - Chemistry and C hemistry - challengeOrdered By: Dr. Prado on 05-28-2022 CO2 [Moles/Vol] 22.0 mmol/L 21.0-32.0 [facility] Urea nitrogen/Creatinine [Mass ratio] 25.1 mg/mg 10-20 [facility] Laboratory - Hematology and Cell countsOrdered By: Dr. Prado on 05-28-2022 Erythrocyte distribution width (RBC) [Entitic vol] 50.4 fL 35.1-43.9 [facility] Erythrocyte distribution width (RBC) [Ratio] 13.9 % 11.6-14.6 [facility] Immature granulocytes/100 WBC (Bld) 0.500 % 0.0-0.9 [facility] Comment on above: IG% - Immature Granu locytes (promyelocytes, myelocytes and metamyelocytes) > 1% indicates that a LEFT SHIFT is Present. MCH (RBC) [Entitic mass] 30.7 pg 27.0-32.0 [facility] Nucleated RBC/100 WBC (Bld) [Ratio] 0 % 0-5 [facility] MCHC Auto (RBC) [Mass/Vol]Or dered By: Dr. Prado on 05-28-2022 MCHC (RBC) [Mass/Vol] 31.0 g/dL 32-36 [facility] Mucus LM Ql (Urine sed)Order ed By: Dr. Prado on 05-28-2022 Mucus Ql (Urine sed) 0 SEEN /hpf [facility] Nitrite Test strip Ql (U)Ord ered By: Dr. Prado on 05-28-2022 Nitrite Ql (U) Negative Negative [facility] No Panel InformationOrdered By: Dr. Prado on 05-28-2022 Estimated GFR (MDRD) Amer 35 mL/min >60 [facility] Comment on above: GFR Calc Estimated GFR (MDRD) Non-Af Amer 29 mL/min >60 [facility] Comment on above: Non- GFR Calc 30.7 pg 27.0-32.0 [facility] 13.9 % 11.6-14.6 [facility] 50.4 fl 35.1-43.9 [facility] 0.500 % 0.0-0.9 [facility] 0 % 0-5 [facility] 29 mL/min >60 [facility] 35 mL/min >60 [facility] 25.1 RATIO 10-20 [facility] 22.0 mmol/L 21.0-32.0 [facility] Platelets bldOrdered By: Dr. Prado on 05-28-2022 Platelets (Bld) [#/Vol] 219 10*3/uL 150-450 [facility] Protein Test strip Ql (U)Ord ered By: Dr. Prado on 05-28-2022 Protein Ql (U) 15 mg/dl Negative [facility] Serum or plasma calcium sary urement (mass/volume)Ordered By: Dr. Prado on 05-28-2022 Calcium [Mass/Vol] 8.7 mg/dL 8.5-10.1 [facility] Serum or plasma creatinine m easurement (mass/volume)Ordered By: Dr. Prado on 05-28-2022 Creatinine [Mass/Vol] 1.79 mg/dL 0.55-1.02 [facility] Comment on above: The validity of the calculated GFR & GFRAA in patients over 70 years has not been determined. Clinical correlation is essential. Serum or plasma urea nitroge n measurement (mass/volume)Ordered By: Dr. Prado on 05-28-2022 Urea nitrogen [Mass/Vol] 45 mg/dL - [facility] Squamous epithelial cells de tection in urine sediment by light microscopyOrdered By: Dr. Prado on 05-28-2022 Epithelial cells.squamous LM Ql (Urine sed) 0-5 SEEN /hpf 5-10 [facility] Thin prep Papanicolaou smear with manual screeningOrdered By: Dr. Prado on 05-28-2022 Thin prep Papanicolaou smear with manual screening 6 5-15 [facility] Urine blood detectionOrdered By: Dr. Prado on 05-28-2022 RBC Ql (U) Negative Negative [facility] RBC Ql (U) 0 SEEN /hpf 0-5 [facility] Urine clarityOrdered By: Dr. Prado on 05-28-2022 Clarity (U) Clear Clear [facility] Urine color determinationOrd ered By: Dr. Prado on 05-28-2022 Color (U) Yellow Yellow [facility] Urine glucose detectionOrder ed By: Dr. Prado on 05-28-2022 Glucose Ql (U) Normal mg/dl Normal [facility] Urine leukocyte esterase det ection by dipstickOrdered By: Dr. Prado on 05-28-2022 Leukocyte esterase Test strip Ql (U) Negative Negative [facility] Urine pHOrdered By: Dr. Thomas cha on 05-28-2022 pH (U) 6.0 [pH] 5.0 - 8.0 [facility] Urine sediment bacteria coun t by microscopy (number/high power field)Ordered By: Dr. Prado on 05-28-2022 Bacteria LM.HPF (Urine sed) [#/Area] 0 /[HPF] None Seen [facility] Urine specific gravity measu rementOrdered By: Dr. Prado on 05-28-2022 Specific gravity (U) [Rel density] 1.015 1.002-1.030 [facility] Urobilinogen Auto test strip Ql (U)Ordered By: Dr. Prado on 05-28-2022 Urobilinogen Ql (U) Normal mg/dl Normal [facility] Glucose Glucometer (BldC) [M ass/Vol]Ordered By: Dr. Hernández on 05-24-2022 Glucose [Mass/Vol] 108 mg/dL 74-106 [facility] Comment on above: MANAGEMENT OF PATIEN T CARE PER NURSING PROTOCOL Basophil percentageOrdered B y: Lucretia Akhtar on 04-23-2022 Basophil percentage 296 mg/dL 74-106 [facility] Basophil percentage 8.0 g/dL 6.4-8.2 [facility] Basophil percentage 0.40 mg/dL 0.20-1.00 [facility] Basophil percentage 139 mmol/L 136-145 [facility] Basophil percentage 3.8 mmol/L 3.5-5.1 [facility] Basophil percentage 104 mmol/L 98-107 [facility] Bilirubin [Mass/Vol] 0.40 mg/dL 0.20-1.00 [facility] Comment on above: For patients on eltr ombopag therapy, use of Dimension [place] TBIL is not recommended. Chloride [Moles/Vol] 104 mmol/L 98-107 [facility] Glucose [Mass/Vol] 296 mg/dL 74-106 [facility] Comment on above: Glucose result great er than or equal to 200 mg/dLsuggests DIABETES MELLITUS per A.D.A. criteria. Potassium [Moles/Vol] 3.8 mmol/L 3.5-5.1 [facility] Protein [Mass/Vol] 8.0 g/dL 6.4-8.2 [facility] Sodium [Moles/Vol] 139 mmol/L 136-145 [facility] Laboratory - Chemistry and C hemistry - challengeOrdered By: Lucretia Akhtar on 04-23-2022 ALP [Catalytic activity/Vol] 120 U/L 45- [facility] ALT [Catalytic activity/Vol] 24 U/L [facility] CO2 [Moles/Vol] 24.0 mmol/L 21.0-32.0 [facility] Globulin (S) [Mass/Vol] 4.4 g/dL 2.2-4.2 [facility] Urea nitrogen/Creatinine [Mass ratio] 29.8 mg/mg - [facility] No Panel InformationOrdered By: Lucretia Akhtar on 04-23-2022 Estimated GFR (MDRD) Amer 37 mL/min >60 [facility] Comment on above: GFR Calc Estimated GFR (MDRD) Non-Af Amer 31 mL/min >60 [facility] Comment on above: Non- GFR Calc 31 mL/min >60 [facility] 37 mL/min >60 [facility] 29.8 RATIO 10- [facility] 4.4 g/dL 2.2-4.2 [facility] 120 U/L 45-117 [facility] 24 U/L [facility] 24.0 mmol/L 21.0-32.0 [facility] Serum or plasma albumin sary urement (mass/volume)Ordered By: Lucretia Akhtar on 04-23-2022 Albumin [Mass/Vol] 3.6 g/dL 3.2-5.0 [facility] Serum or plasma albumin/glob ulin mass ratioOrdered By: Lucretia Akhtar on 04-23-2022 Albumin/Globulin [Mass ratio] 0.8 {ratio} 0.9-2.4 [facility] Serum or plasma calcium sary urement (mass/volume)Ordered By: Lucretia Akhtar on 04-23-2022 Calcium [Mass/Vol] 8.9 mg/dL 8.5-10.1 [facility] Serum or plasma creatinine m easurement (mass/volume)Ordered By: Lucretia Akhtar on 04-23-2022 Creatinine [Mass/Vol] 1.68 mg/dL 0.55-1.02 [facility] Comment on above: The validity of the calculated GFR & GFRAA in patients over 70 years has not been determined. Clinical correlation is essential. Serum or plasma urea nitroge n measurement (mass/volume)Ordered By: Lucretia Akhtar on 04-23-2022 Urea nitrogen [Mass/Vol] 50 mg/dL 7-18 [facility] Thin prep Papanicolaou smear with manual screeningOrdered By: Lucretia Akhtar on 04-23-2022 Thin prep Papanicolaou smear with manual screening 18 U/L 15-37 [facility] Thin prep Papanicolaou smear with manual screening 11 5-15 [facility] Laboratory - Hematology and Cell countson 02-28-2022 HbA1c (Bld) [Mass fraction] 10.3 % [facility] Basophil percentageOrdered B y: Dr. Andersen on 01-10-2022 Basophil percentage 3.4 mg/dL 2.5-4.9 [facility] Chloride [Moles/Vol] 98 mmol/L 98-107 [facility] Glucose [Mass/Vol] 236 mg/dL 74-106 [facility] Comment on above: Glucose result great er than or equal to 200 mg/dLsuggests DIABETES MELLITUS per A.D.A. criteria. Potassium [Moles/Vol] 3.2 mmol/L 3.5-5.1 [facility] Sodium [Moles/Vol] 136 mmol/L 136-145 [facility] Laboratory - Chemistry and C hemistry - challengeOrdered By: Dr. Andersen on 01-10-2022 CO2 [Moles/Vol] 26.0 mmol/L 21.0-32.0 [facility] Urea nitrogen/Creatinine [Mass ratio] 18.6 mg/mg 10- [facility] No Panel InformationOrdered By: Dr. Andersen on 01-10-2022 Estimated GFR (MDRD) Amer 44 mL/min >60 [facility] Comment on above: GFR Calc Estimated GFR (MDRD) Non-Af Amer 37 mL/min >60 [facility] Comment on above: Non- GFR Calc Serum or plasma albumin sary urement (mass/volume)Ordered By: Dr. Andersen on 01-10-2022 Albumin [Mass/Vol] 4.0 g/dL 3.2-5.0 [facility] Serum or plasma calcium sary urement (mass/volume)Ordered By: Dr. Andersen on 01-10-2022 Calcium [Mass/Vol] 9.5 mg/dL 8.5-10.1 [facility] Serum or plasma creatinine m easurement (mass/volume)Ordered By: Dr. Andersen on 01-10-2022 Creatinine [Mass/Vol] 1.45 mg/dL 0.55-1.02 [facility] Comment on above: The validity of the calculated GFR & GFRAA in patients over 70 years has not been determined. Clinical correlation is essential. Serum or plasma urea nitroge n measurement (mass/volume)Ordered By: Dr. Andersen on 01-10-2022 Urea nitrogen [Mass/Vol] 27 mg/dL - [facility] Laboratory - Hematology and Cell countson 11-30-2021 HbA1c (Bld) [Mass fraction] 9.5 % [facility] Work Phone: Basophil percentageon 2021 Basophil percentage 3.0 mg/dL 2.5-4.9 [facility] Work Phone: Chloride [Moles/Vol] 101 mmol/L 98-107 [facility] Work Phone: Glucose [Mass/Vol] 273 mg/dL 74-106 [facility] Work Phone: Comment on above: Glucose result great er than or equal to 200 mg/dLsuggests DIABETES MELLITUS per A.D.A. criteria. Potassium [Moles/Vol] 3.4 mmol/L 3.5-5.1 [facility] Work Phone: Sodium [Moles/Vol] 136 mmol/L 136-145 [facility] Work Phone: Laboratory - Chemistry and C hemistry - challengeon 11-14-2021 CO2 [Moles/Vol] 24.0 mmol/L 21.0-32.0 [facility] Work Phone: Urea nitrogen/Creatinine [Mass ratio] 15.4 mg/mg 10- [facility] Work Phone: No Panel Informationon 11-14 Estimated GFR (MDRD) Amer 50 mL/min >60 [facility] Work Phone: Comment on above: GFR Calc Estimated GFR (MDRD) Non-Af Amer 42 mL/min >60 [facility] Work Phone: Comment on above: Non- GFR Calc Serum or plasma albumin sary urement (mass/volume)on 11-14-2021 Albumin [Mass/Vol] 3.5 g/dL 3.2-5.0 [facility] Work Phone: Serum or plasma calcium sary urement (mass/volume)on 11-14-2021 Calcium [Mass/Vol] 9.4 mg/dL 8.5-10.1 [facility] Work Phone: Serum or plasma creatinine m easurement (mass/volume)on 11-14-2021 Creatinine [Mass/Vol] 1.30 mg/dL 0.55-1.02 [facility] Work Phone: Comment on above: The validity of the calculated GFR & GFRAA in patients over 70 years has not been determined. Clinical correlation is essential. Serum or plasma urea nitroge n measurement (mass/volume)on 11-14-2021 Urea nitrogen [Mass/Vol] 20 mg/dL 7-18 [facility] Work Phone: Basophil percentageon 2021 Basophil percentage 4.8 mg/dL 2.5-4.9 [facility] Work Phone: Bilirubin [Mass/Vol] 0.30 mg/dL 0.20-1.00 [facility] Work Phone: Comment on above: For patients on eltr ombopag therapy, use of Dim[place] TBIL is not recommended. Chloride [Moles/Vol] 101 mmol/L 98-107 [facility] Work Phone: Glucose [Mass/Vol] 174 mg/dL 74-106 [facility] Work Phone: Comment on above: Fasting Glucose resu lt greater than or equal to 126 mg/dL suggests DIABETES MELLITUS per A.D.A. criteria. Potassium [Moles/Vol] 4.1 mmol/L 3.5-5.1 [facility] Work Phone: Protein [Mass/Vol] 7.6 g/dL 6.4-8.2 [facility] Work Phone: Sodium [Moles/Vol] 135 mmol/L 136-145 [facility] Work Phone: Glucose Glucometer (BldC) [M ass/Vol]on 09-28-2021 Glucose [Mass/Vol] 219 mg/dL 74-106 [facility] Work Phone: Comment on above: MANAGEMENT OF PATIEN T CARE PER NURSING PROTOCOL Laboratory - Chemistry and C hemistry - challengeon 09-28-2021 ALP [Catalytic activity/Vol] 124 U/L 45-117 [facility] Work Phone: ALT [Catalytic activity/Vol] 28 U/L 13-56 [facility] Work Phone: CO2 [Moles/Vol] 28.0 mmol/L 21.0-32.0 [facility] Work Phone: Globulin (S) [Mass/Vol] 4.5 g/dL 2.2-4.2 [facility] Work Phone: Magnesium [Mass/Vol] 2.0 mg/dL [facility].6-2.6 [facility]: Urea nitrogen/Creatinine [Mass ratio] 27.2 mg/mg 10-20 [facility] Work Phone: No Panel Informationon 09-28 Estimated Creatinine Clearance Calc 18.14 ml/min [facility] Work Phone: Estimated GFR (MDRD) Amer 32 mL/min >60 [facility] Work Phone: Comment on above: GFR Calc Estimated GFR (MDRD) Non-Af Amer 27 mL/min >60 [facility] Work Phone: Comment on above: Non- GFR Calc Serum or plasma albumin sary urement (mass/volume)on 09-28-2021 Albumin [Mass/Vol] 3.1 g/dL 3.2-5.0 [facility] Work Phone: Serum or plasma albumin/glob ulin mass ratioon 09-28-2021 Albumin/Globulin [Mass ratio] 0.7 {ratio} 0.9-2.4 [facility] Work Phone: Serum or plasma calcium sary urement (mass/volume)on 09-28-2021 Calcium [Mass/Vol] 9.4 mg/dL 8.5-10.1 [facility] Work Phone: Serum or plasma creatinine m easurement (mass/volume)on 09-28-2021 Creatinine [Mass/Vol] 1.91 mg/dL 0.55-1.02 [facility] Work Phone: Comment on above: The validity of the calculated GFR & GFRAA in patients over 70 years has not been determined. Clinical correlation is essential. Serum or plasma urea nitroge n measurement (mass/volume)on 09-28-2021 Urea nitrogen [Mass/Vol] 52 mg/dL 7-18 [facility] Work Phone: Thin prep Papanicolaou smear with manual screeningon 09-28-2021 Thin prep Papanicolaou smear with manual screening 13 U/L 15-37 [facility] Work Phone: Thin prep Papanicolaou smear with manual screening 6 5-15 [facility] Work Phone: Absolute lymphocyte counton 09-27-2021 Lymphocytes Auto (Unsp spec) [#/Vol] 1.89 10*3/uL 0.83-4.51 [facility] Work Phone: Basophil percentageon 2021 Basophils/100 WBC (Bld) 0.6 % 0-1 [facility] Work Phone: Eosinophils/100 WBC (Bld) 7.0 % 0-5 [facility] Work Phone: Neutrophils (Bld) [#/Vol] 5.5 10*3/uL 2.0-7.7 [facility] Work Phone: Neutrophils/100 WBC (Bld) 59.1 % 47-70 [facility] Work Phone: WBC (Bld) [#/Vol] 9.3 10*3/uL 4.4-11.0 [facility] Work Phone: Blood erythrocytes count (nu mber/volume)on 09-27-2021 RBC (Bld) [#/Vol] 3.99 10*6/uL 4.2-5.4 [facility] Work Phone: Blood hemoglobin measurement (mass/volume)on 09-27-2021 Hemoglobin (Bld) [Mass/Vol] 12.2 g/dL 12.0-15. 0 [facility] Work Phone: Blood lymphocytes/100 leukoc yteson 09-27-2021 Lymphocytes/100 WBC (Bld) 20.3 % 19-41 [facility] Work Phone: Blood monocytes/100 leukocyt eson 08-18-2022 Monocytes/100 WBC (Bld) 12.4 % 0-10 [facility] Work Phone: Blood platelet mean volumeon 09-27-2021 Platelet mean volume (Bld) [Entitic vol] 10.7 fL 6.2-12.0 [facility] Work Phone: Determination of erythrocyte mean corpuscular volume (MCV)on 09-27-2021 MCV (RBC) [Entitic vol] 92.7 fL 81-99 [facility] Work Phone: Hematocrit Auto (Bld) [Volum e fraction]on 09-27-2021 Hematocrit (Bld) [Volume fraction] 37.0 % 37-47 [facility] Work Phone: Laboratory - Hematology and Cell countson 09-27-2021 Erythrocyte distribution width (RBC) [Entitic vol] 45.7 fL 35.1-43.9 [facility] Work Phone: Erythrocyte distribution width (RBC) [Ratio] 13.3 % 11.6-14.6 [facility] Work Phone: Immature granulocytes/100 WBC (Bld) 0.600 % 0.0-0.9 [facility] Work Phone: Comment on above: IG% - Immature Granu locytes (promyelocytes, myelocytes and metamyelocytes) > 1% indicates that a LEFT SHIFT is Present. MCH (RBC) [Entitic mass] 30.6 pg 27.0-32.0 [facility] Work Phone: Nucleated RBC/100 WBC (Bld) [Ratio] 0 % 0-5 [facility] Work Phone: MCHC Auto (RBC) [Mass/Vol]on 09-27-2021 MCHC (RBC) [Mass/Vol] 33.0 g/dL 32-36 [facility] Work Phone: Platelets bldon 09-27-2021 Platelets (Bld) [#/Vol] 244 10*3/uL 150-450 [facility] Work Phone: Basophil percentageon 2021 Cholesterol [Mass/Vol] 120 mg/dL <[address] [facility] Work Phone: Comment on above: <200 mg/dL Desirable 200-240 mg/dL Borderline >240 mg/dL High Risk Triglyceride [Mass/Vol] 134 mg/dL <199 [facility] Work Phone: Comment on above: The drugs N-Acetylcy steine and Metamizole may falsely depress this assay.Serum Triglycerides Reference Interval Normal <150 mg/dL Borderline high 150 - 199 mg/dL High 200 - 499 mg/dL Very High > or = 500 mg/dL Blood manual differential co mment interpretation (narrative result)on 09-22-2021 Manual differential comment Marcelo (Bld) [Interp] SCANNED [facility] Work Phone: No Panel Informationon 09-22 Troponin I High Sensitivity 87 pg/mL 3.0-54.0 [facility] Work Phone: Comment on above: Please Note: New Carly t Units and Gender Specific Reference Ranges. For more information see Policy Stat Procedure [place] High Sensitivity Troponin (TNIH) and attachments. Review by pathologiston 09-10 Pathologist review Marcelo (Unsp spec) [Interp] Reviewed [facility] Work Phone: Comment on above: Previous reported re sult: Phyllis kumar Edited by: CESILIA on 09/25/21:07Neutrophilic leukocytosis.Clinical correlation necessary.Nick Frey M.D. 09/24/21 AMENDED REPORT 09/25/21 0720 PATH REV previously reported as: Phyllis kumar Serum or plasma cholesterol in HDL measurement (mass/volume)on 09-22-2021 Cholesterol in HDL [Mass/Vol] 67 mg/dL >40 [facility] Work Phone: Comment on above: The drugs N-Acetylcy steine and Metamizole may falsely depress this assay. Reference Range HDL <40 mg/dL Low HDL Cholesterol HDL >or= 60 mg/dL High HDL Cholesterol Serum or plasma cholesterol in VLDL measurement (mass/volume)on 09-22-2021 Cholesterol in VLDL [Mass/Vol] 27 mg/dL 5-40 [facility] Work Phone: Serum or plasma low density lipoprotein (LDL) cholesterol measurement (mass/volume)on 09-22-2021 Cholesterol in LDL [Mass/Vol] 26 mg/dL 0-130 [facility] Work Phone: Absolute lymphocyte counton 09-21-2021 Lymphocytes Auto (Unsp spec) [#/Vol] 2.14 10*3/uL 0.83-4.51 [facility] Work Phone: Basophil percentageon 2021 Basophils/100 WBC (Bld) 0.2 % 0-1 [facility] Work Phone: [phone] Chloride [Moles/Vol] 104 mmol/L 98-107 [facility] Work Phone: Eosinophils/100 WBC (Bld) 0.0 % 0-5 [facility] Work Phone: Glucose [Mass/Vol] 212 mg/dL 74-106 [facility] Work Phone: Comment on above: Glucose result great er than or equal to 200 mg/dLsuggests DIABETES MELLITUS per A.D.A. criteria. Neutrophils (Bld) [#/Vol] 13.6 10*3/uL 2.0-7.7 [facility] Work Phone: Neutrophils/100 WBC (Bld) 76.0 % 47-70 [facility] Work Phone: Potassium [Moles/Vol] 3.6 mmol/L 3.5-5.1 [facility] Work Phone: [phone] Comment on above: Moderate Hemolysis, Result may be falsely increased. Sodium [Moles/Vol] 137 mmol/L 136-145 [facility] Work Phone: WBC (Bld) [#/Vol] 17.9 10*3/uL 4.4-11.[facility]: Blood erythrocytes count (nu mber/volume)on 09-21-2021 RBC (Bld) [#/Vol] 4.05 10*6/uL 4.2-5.4 [facility] Work [facility]: Blood hemoglobin measurement (mass/volume)on 09-21-2021 Hemoglobin (Bld) [Mass/Vol] 12.6 g/dL 12.0-15. 0 [facility] Work Phone: Blood lymphocytes/100 leukoc yteson 09-21-2021 Lymphocytes/100 WBC (Bld) 12.0 % 19-41 [facility] Work Phone: Blood manual differential co mment interpretation (narrative result)on 09-21-2021 Manual differential comment Marcelo (Bld) [Interp] SEE COMMENT [facility] Work Phone: Comment on above: MONOCYTOSIS NOTED Blood monocytes/100 leukocyt eson 09-21-2021 Monocytes/100 WBC (Bld) 11.0 % 0-10 [facility] Work Phone: Blood platelet adequacy dete ction by light microscopyon 09-21-2021 Platelets LM Ql (Bld) ADEQUATE ADEQ [facility] Work Phone: Blood platelet mean volumeon 09-21-2021 Platelet mean volume (Bld) [Entitic vol] 11.2 fL 6.2-12.0 [facility] Work Phone: Determination of erythrocyte mean corpuscular volume (MCV)on 09-21-2021 MCV (RBC) [Entitic vol] 92.1 fL 81-99 [facility] Work Phone: Hematocrit Auto (Bld) [Volum e fraction]on 09-21-2021 Hematocrit (Bld) [Volume fraction] 37.3 % 37-47 [facility] Work Phone: Laboratory - Chemistry and C hemistry - challengeon 09-21-2021 CO2 [Moles/Vol] 23.0 mmol/L 21.0-32.0 [facility] Work Phone: Natriuretic peptide B (Bld) [Mass/Vol] 1720.2 pg/mL 0-100 [facility] Work Phone: Urea nitrogen/Creatinine [Mass ratio] 29.2 mg/mg 10-20 [facility] Work Phone: Laboratory - Hematology and Cell countson 09-21-2021 Anisocytosis Ql (Bld) RARE [facility] Work Phone: Erythrocyte distribution width (RBC) [Entitic vol] 46.1 fL 35.1-43.9 [facility] Work Phone: Erythrocyte distribution width (RBC) [Ratio] 13.6 % 11.6-14.6 [facility] Work Phone: Immature granulocytes/100 WBC (Bld) 0.800 % 0.0-0.9 [facility] Work Phone: Comment on above: IG% - Immature Granu locytes (promyelocytes, myelocytes and metamyelocytes) > 1% indicates that a LEFT SHIFT is Present. MCH (RBC) [Entitic mass] 31.1 pg 27.0-32.0 [facility] Work Phone: Nucleated RBC/100 WBC (Bld) [Ratio] 0.2 % 0-5 [facility] Work Phone: MCHC Auto (RBC) [Mass/Vol]on 09-21-2021 MCHC (RBC) [Mass/Vol] 33.8 g/dL 32-36 [facility] Work Phone: Macrocytes detectionon 09-21 Macrocytes Ql (Bld) [facility] Work Phone: No Panel Informationon 09-21 Estimated Creatinine Clearance Calc 21.53 ml/min [facility] Work Phone: Estimated GFR (MDRD) Amer 37 mL/min >60 [facility] Work Phone: Comment on above: GFR Calc Estimated GFR (MDRD) Non-Af Amer 31 mL/min >60 [facility] Work Phone: Comment on above: Non- GFR Calc Thyroid Stimulating Hormone (TSH) 1.84 uIU/mL 0.358-3.74 [facility] Work Phone: Troponin I High Sensitivity 76 pg/mL 3.0-54.0 [facility] Work Phone: Comment on above: Please Note: New Carly t Units and Gender Specific Reference Ranges. For more information see Policy Stat Procedure [place] High Sensitivity Troponin (TNIH) and attachments. Platelets bldon 09-21-2021 Platelets (Bld) [#/Vol] 246 10*3/uL 150-450 [facility] Work Phone: RBC morphologyon 09-21-2021 RBC morphology finding Nom (Bld) N CHROM NORMAL NORM C&C [facility] Work Phone: Review by pathologiston 09-10 Pathologist review Marcelo (Unsp spec) [Interp] June [facility] Work Phone: Serum or plasma calcium sary urement (mass/volume)on 09-21-2021 Calcium [Mass/Vol] 8.6 mg/dL 8.5-10.1 [facility] Work Phone: Serum or plasma creatinine m easurement (mass/volume)on 09-21-2021 Creatinine [Mass/Vol] 1.68 mg/dL 0.55-1.02 [facility] Work Phone: Comment on above: The validity of the calculated GFR & GFRAA in patients over 70 years has not been determined. Clinical correlation is essential. Serum or plasma urea nitroge n measurement (mass/volume)on 09-21-2021 Urea nitrogen [Mass/Vol] 49 mg/dL 7-18 [facility] Work Phone: Thin prep Papanicolaou smear with manual screeningon 09-21-2021 Thin prep Papanicolaou smear with manual screening 10 5-15 [facility] Work Phone: Basophil percentageon 2021 Basophil percentage 3.2 mg/dL 2.5-4.9 [facility] Work Phone: Chloride [Moles/Vol] 100 mmol/L 98-107 [facility] Work Phone: Glucose [Mass/Vol] 312 mg/dL 74-106 [facility] Work Phone: Comment on above: Glucose result great er than or equal to 200 mg/dLsuggests DIABETES MELLITUS per A.D.A. criteria. Potassium [Moles/Vol] 4.0 mmol/L 3.5-5.1 [facility] Work Phone: Sodium [Moles/Vol] 136 mmol/L 136-145 [facility] Work Phone: Laboratory - Chemistry and C hemistry - challengeon 08-20-2021 CO2 [Moles/Vol] 25.0 mmol/L 21.0-32.0 [facility] Work Phone: Urea nitrogen/Creatinine [Mass ratio] 16.4 mg/mg 10-20 [facility] Work Phone: No Panel Informationon 08-20 Estimated GFR (MDRD) Amer 51 mL/min >60 [facility] Work Phone: Comment on above: GFR Calc Estimated GFR (MDRD) Non-Af Amer 42 mL/min >60 [facility] Work Phone: Comment on above: Non- GFR Calc Serum or plasma albumin sary urement (mass/volume)on 08-20-2021 Albumin [Mass/Vol] 3.4 g/dL 3.2-5.0 [facility] Work Phone: Serum or plasma calcium sary urement (mass/volume)on 08-20-2021 Calcium [Mass/Vol] 8.8 mg/dL 8.5-10.1 [facility] Work Phone: Serum or plasma creatinine m easurement (mass/volume)on 08-20-2021 Creatinine [Mass/Vol] 1.28 mg/dL 0.55-1.02 [facility] Work Phone: Comment on above: The validity of the calculated GFR & GFRAA in patients over 70 years has not been determined. Clinical correlation is essential. Serum or plasma urea nitroge n measurement (mass/volume)on 08-20-2021 Urea nitrogen [Mass/Vol] 21 mg/dL 7-18 [facility] Work Phone: Laboratory - Hematology and Cell countson 08-17-2021 HbA1c (Bld) [Mass fraction] 8.1 % 4.2-6.3 [facility] Work Phone: Basophil percentageon 2021 Basophil percentage 3.8 mg/dL 2.5-4.9 [facility] Work Phone: Chloride [Moles/Vol] 108 mmol/L 98-107 [facility] Work Phone: Glucose [Mass/Vol] 127 mg/dL 74-106 [facility] Work Phone: Comment on above: Fasting Glucose resu lt greater than or equal to 126 mg/dL suggests DIABETES MELLITUS per A.D.A. criteria. Potassium [Moles/Vol] 4.0 mmol/L 3.5-5.1 [facility] Work Phone: Comment on above: Slight Hemolysis, Re sult may be falsely increased. Sodium [Moles/Vol] 137 mmol/L 136-145 [facility] Work Phone: Laboratory - Chemistry and C hemistry - challengeon 07-26-2021 CO2 [Moles/Vol] 21.0 mmol/L 21.0-32.0 [facility] Work Phone: Urea nitrogen/Creatinine [Mass ratio] 28.1 mg/mg 10-20 [facility] Work Phone: No Panel Informationon 07-26 Estimated GFR (MDRD) Amer 44 mL/min >60 [facility] Work Phone: Comment on above: GFR Calc Estimated GFR (MDRD) Non-Af Amer 36 mL/min >60 [facility] Work Phone: Comment on above: Non- GFR Calc Serum or plasma albumin sary urement (mass/volume)on 07-26-2021 Albumin [Mass/Vol] 3.8 g/dL 3.2-5.0 [facility] Work Phone: Serum or plasma calcium sary urement (mass/volume)on 07-26-2021 Calcium [Mass/Vol] 9.4 mg/dL 8.5-10.1 [facility] Work Phone: Serum or plasma creatinine m easurement (mass/volume)on 07-26-2021 Creatinine [Mass/Vol] 1.46 mg/dL 0.55-1.02 [facility] Work Phone: Comment on above: The validity of the calculated GFR & GFRAA in patients over 70 years has not been determined. Clinical correlation is essential. Serum or plasma urea nitroge n measurement (mass/volume)on 07-26-2021 Urea nitrogen [Mass/Vol] 41 mg/dL 7-18 [facility] Work Phone: Basophil percentageon 2021 Glucose [Mass/Vol] 172 mg/dL 74-106 [facility] Work Phone: Comment on above: Fasting Glucose resu lt greater than or equal to 126 mg/dL suggests DIABETES MELLITUS per A.D.A. criteria. No Panel Informationon 07-13 C-Peptide 3.7 ng/mL 1.1-4.4 [facility] Work Phone: Comment on above: C-Peptide reference interval is for fasting patients.Performed at: [facility] [id number] Director: Nathan Quiroga PhD, Phone: [phone] Absolute lymphocyte counton 06-16-2021 Lymphocytes Auto (Unsp spec) [#/Vol] 1.70 10*3/uL 0.83-4.51 [facility] Work Phone: Basophil percentageon 2021 Potassium [Moles/Vol] 3.1 mmol/L 3.5-5.1 [facility] Work Phone: Basophils/100 WBC (Bld) 0.3 % 0-1 [facility] Work Phone: Chloride [Moles/Vol] 116 mmol/L 98-107 [facility] Work Phone: Eosinophils/100 WBC (Bld) 0.2 % 0-5 [facility] Work Phone: Glucose [Mass/Vol] 269 mg/dL 74-106 [facility] Work Phone: Comment on above: Glucose result great er than or equal to 200 mg/dLsuggests DIABETES MELLITUS per A.D.A. criteria. Neutrophils (Bld) [#/Vol] 15.3 10*3/uL 2.0-7.7 [facility] Work Phone: Neutrophils/100 WBC (Bld) 83.9 % 47-70 [facility] Work Phone: Sodium [Moles/Vol] 151 mmol/L 136-145 [facility] Work Phone: WBC (Bld) [#/Vol] 18.2 10*3/uL 4.4-11.0 [facility] Work Phone: Blood erythrocytes count (nu mber/volume)on 06-16-2021 RBC (Bld) [#/Vol] 5.17 10*6/uL 4.2-5.4 [facility] Work Phone: Blood hemoglobin measurement (mass/volume)on 06-16-2021 Hemoglobin (Bld) [Mass/Vol] 15.9 g/dL 12.0-15. 0 [facility] Work Phone: Blood lymphocytes/100 leukoc yteson 06-16-2021 Lymphocytes/100 WBC (Bld) 9.3 % 19-41 [facility] Work Phone: Blood monocytes/100 leukocyt eson 06-16-2021 Monocytes/100 WBC (Bld) 5.9 % 0-10 [facility] Work Phone: Blood platelet mean volumeon 06-16-2021 Platelet mean volume (Bld) [Entitic vol] 11.5 fL 6.2-12.0 [facility] Work Phone: Determination of erythrocyte mean corpuscular volume (MCV)on 06-16-2021 MCV (RBC) [Entitic vol] 90.9 fL 81-99 [facility] Work Phone: Glucose Glucometer (BldC) [M ass/Vol]on 06-16-2021 Glucose [Mass/Vol] 264 mg/dL 74-106 [facility] Work Phone: Comment on above: MANAGEMENT OF PATIEN T CARE PER NURSING PROTOCOL Hematocrit Auto (Bld) [Volum e fraction]on 06-16-2021 Hematocrit (Bld) [Volume fraction] 47.0 % 37-47 [facility] Work Phone: Laboratory - Chemistry and C hemistry - challengeon 06-16-2021 CO2 [Moles/Vol] 23.0 mmol/L 21.0-32.0 [facility] Work Phone: Natriuretic peptide B (Bld) [Mass/Vol] 50.8 pg/mL 0-100 [facility] Work Phone: Urea nitrogen/Creatinine [Mass ratio] 16.6 mg/mg 10-20 [facility] Work Phone: Laboratory - Hematology and Cell countson 06-16-2021 Erythrocyte distribution width (RBC) [Entitic vol] 45.9 fL 35.1-43.9 [facility] Work Phone: Erythrocyte distribution width (RBC) [Ratio] 13.7 % 11.6-14.6 [facility] Work Phone: Immature granulocytes/100 WBC (Bld) 0.400 % 0.0-0.9 [facility] Work Phone: Comment on above: IG% - Immature Granu locytes (promyelocytes, myelocytes and metamyelocytes) > 1% indicates that a LEFT SHIFT is Present. MCH (RBC) [Entitic mass] 30.8 pg 27.0-32.0 [facility] Work Phone: Nucleated RBC/100 WBC (Bld) [Ratio] 0 % 0-5 [facility] Work Phone: MCHC Auto (RBC) [Mass/Vol]on 06-16-2021 MCHC (RBC) [Mass/Vol] 33.8 g/dL 32-36 [facility] Work Phone: No Panel Informationon 06-16 Estimated Creatinine Clearance Calc 20.86 ml/min [facility] Work Phone: Estimated GFR (MDRD) Amer 37 mL/min >60 [facility] Work Phone: Comment on above: GFR CalcPrevious reported result: 38 mL/minEdited by: AUTOINS on 06/16/21:1906 AMENDED REPORT 06/16/211906 EST GFR - AA previously reported as: 38 L mL/min Estimated GFR (MDRD) Non-Af Amer 31 mL/min >60 [facility] Work Phone: Comment on above: Non- GFR CalcPrevious reported result: 31 mL/minEdited by: AUTOINS on 06/16/21:1906 AMENDED REPORT 06/16/211906 EST GFR previously reported as: 31 L mL/min Troponin I High Sensitivity 12 pg/mL 3.0-54.0 [facility] Work Phone: Comment on above: Please Note: New Carly t Units and Gender Specific Reference Ranges. For more information see Policy Stat Procedure [place] High Sensitivity Troponin (TNIH) and attachments. Platelets bldon 06-16-2021 Platelets (Bld) [#/Vol] 268 10*3/uL 150-450 [facility] Work Phone: Serum or plasma calcium sary urement (mass/volume)on 06-16-2021 Calcium [Mass/Vol] 9.1 mg/dL 8.5-10.1 [facility] Work Phone: Serum or plasma creatinine m easurement (mass/volume)on 06-16-2021 Creatinine [Mass/Vol] 1.69 mg/dL 0.55-1.02 [facility] Work Phone: Comment on above: The validity of the calculated GFR & GFRAA in patients over 70 years has not been determined. Clinical correlation is essential. Serum or plasma urea nitroge n measurement (mass/volume)on 06-16-2021 Urea nitrogen [Mass/Vol] 28 mg/dL 7-18 [facility] Work Phone: Thin prep Papanicolaou smear with manual screeningon 06-16-2021 Thin prep Papanicolaou smear with manual screening 12 5-15 [facility] Work Phone: Basophil percentageon 2021 Bilirubin [Mass/Vol] 0.50 mg/dL 0.20-1.00 [facility] Work Phone: Comment on above: For patients on eltr ombopag therapy, use of Dimension [place] TBIL is not recommended. Chloride [Moles/Vol] 103 mmol/L 98-107 [facility] Work Phone: Glucose [Mass/Vol] 200 mg/dL 74-106 [facility] Work Phone: Comment on above: Glucose result great er than or equal to 200 mg/dLsuggests DIABETES MELLITUS per A.D.A. criteria. Potassium [Moles/Vol] 3.7 mmol/L 3.5-5.1 [facility] Work Phone: Comment on above: Slight Hemolysis, Re sult may be falsely increased. Protein [Mass/Vol] 8.7 g/dL 6.4-8.2 [facility] Work Phone: Sodium [Moles/Vol] 137 mmol/L 136-145 [facility] Work Phone: Laboratory - Chemistry and C hemistry - challengeon 05-24-2021 ALP [Catalytic activity/Vol] 126 U/L 45-117 [facility] Work Phone: ALT [Catalytic activity/Vol] 26 U/L 13-56 [facility] Work Phone: CO2 [Moles/Vol] 23.0 mmol/L 21.0-32.0 [facility] Work Phone: Globulin (S) [Mass/Vol] 4.7 g/dL 2.2-4.2 [facility] Work Phone: Natriuretic peptide B (Bld) [Mass/Vol] 83.5 pg/mL 0-100 [facility] Work Phone: Urea nitrogen/Creatinine [Mass ratio] 24.4 mg/mg 10-20 [facility] Work Phone: Laboratory - Hematology and Cell countson 05-24-2021 HbA1c (Bld) [Mass fraction] 9.4 % [facility] Work Phone: No Panel Informationon 05-24 Estimated GFR (MDRD) Amer 36 mL/min >60 [facility] Work Phone: Comment on above: GFR Calc Estimated GFR (MDRD) Non-Af Amer 30 mL/min >60 [facility] Work Phone: Comment on above: Non- GFR Calc Serum or plasma albumin sary urement (mass/volume)on 05-24-2021 Albumin [Mass/Vol] 4.0 g/dL 3.2-5.0 [facility] Work Phone: Serum or plasma albumin/glob ulin mass ratioon 05-24-2021 Albumin/Globulin [Mass ratio] 0.9 {ratio} 0.9-2.4 [facility] Work Phone: Serum or plasma calcium sary urement (mass/volume)on 05-24-2021 Calcium [Mass/Vol] 9.8 mg/dL 8.5-10.1 [facility] Work Phone: Serum or plasma creatinine m easurement (mass/volume)on 05-24-2021 Creatinine [Mass/Vol] 1.72 mg/dL 0.55-1.02 [facility] Work Phone: Comment on above: The validity of the calculated GFR & GFRAA in patients over 70 years has not been determined. Clinical correlation is essential. Serum or plasma urea nitroge n measurement (mass/volume)on 05-24-2021 Urea nitrogen [Mass/Vol] 42 mg/dL 7-18 [facility] Work Phone: Thin prep Papanicolaou smear with manual screeningon 05-24-2021 Thin prep Papanicolaou smear with manual screening 17 U/L 15-37 [facility] Work Phone: Comment on above: Slight Hemolysis, Re sult may be falsely increased. Thin prep Papanicolaou smear with manual screening 11 5-15 [facility] Work Phone: Laboratory - Hematology and Cell countson 03-13-2021 HbA1c (Bld) [Mass fraction] 8.6 % [facility] Work Phone: Basophil percentageon 2020 Chloride [Moles/Vol] 98 mmol/L 98-107 [facility] Work Phone: Glucose [Mass/Vol] 425 mg/dL 74-106 [facility] Work Phone: Comment on above: Glucose result great er than or equal to 200 mg/dLsuggests DIABETES MELLITUS per A.D.A. criteria.Please note revised GLUCOSE reference range effective 2017. Potassium [Moles/Vol] 3.9 mmol/L 3.5-5.1 [facility] Work Phone: Sodium [Moles/Vol] 131 mmol/L 136-145 [facility] Work Phone: Glucose Glucometer (BldC) [M ass/Vol]on 02-06-2021 Glucose [Mass/Vol] 349 mg/dL 70-110 [facility] Work Phone: Comment on above: MANAGEMENT OF PATIEN T CARE PER NURSING PROTOCOL Laboratory - Chemistry and C hemistry - challengeon 02-06-2021 CO2 [Moles/Vol] 21.0 mmol/L 21.0-32.0 [facility] Work Phone: Urea nitrogen/Creatinine [Mass ratio] 31.1 mg/mg 10-20 [facility] Work Phone: No Panel Informationon 02-06 Estimated Creatinine Clearance Calc 19.92 ml/min [facility] Work Phone: Estimated GFR (MDRD) Amer 35 mL/min >60 [facility] Work Phone: Comment on above: GFR Calc Estimated GFR (MDRD) Non-Af Amer 29 mL/min >60 [facility] Work Phone: Comment on above: Non- GFR Calc Serum or plasma calcium sary urement (mass/volume)on 02-06-2021 Calcium [Mass/Vol] 9.2 mg/dL 8.5-10.1 [facility] Work Phone: Serum or plasma creatinine m easurement (mass/volume)on 02-06-2021 Creatinine [Mass/Vol] 1.77 mg/dL 0.55-1.02 [facility] Work Phone: Comment on above: The validity of the calculated GFR & GFRAA in patients over 70 years has not been determined. Clinical correlation is essential. Serum or plasma urea nitroge n measurement (mass/volume)on 02-06-2021 Urea nitrogen [Mass/Vol] 55 mg/dL 7-18 [facility] Work Phone: Thin prep Papanicolaou smear with manual screeningon 02-06-2021 Thin prep Papanicolaou smear with manual screening 12 5-15 [facility] Work Phone: Absolute lymphocyte counton 02-04-2021 Lymphocytes Auto (Unsp spec) [#/Vol] 2.76 10*3/uL 0.83-4.51 [facility] Work Phone: Basophil percentageon 2020 Cholesterol [Mass/Vol] 169 mg/dL <200 [facility] Work Phone: Comment on above: <200 mg/dL Desirable 200-240 mg/dL Borderline >240 mg/dL High Risk Eosinophils/100 WBC (Bld) 1.5 % 0-5 [facility] Work Phone: Neutrophils (Bld) [#/Vol] 6.0 10*3/uL 2.0-7.7 [facility] Work Phone: Triglyceride [Mass/Vol] 179 mg/dL [facility] Work Phone: Comment on above: The drugs N-Acetylcy steine and Metamizole may falsely depress this assay.Serum Triglycerides Reference Interval Normal <150 mg/dL Borderline high 150 - 199 mg/dL High 200 - 499 mg/dL Very High > or = 500 mg/dL WBC (Bld) [#/Vol] 9.9 10*3/uL 4.4-11.0 [facility]: Blood erythrocytes count (nu mber/volume)on 02-04-2021 RBC (Bld) [#/Vol] 5.01 10*6/uL 4.2-5.4 [facility] Work Phone: Blood hemoglobin measurement (mass/volume)on 02-04-2021 Hemoglobin (Bld) [Mass/Vol] 14.6 g/dL 12.0-15. 0 [facility] Work Phone: Blood lymphocytes/100 leukoc yteson 02-04-2021 Lymphocytes/100 WBC (Bld) 28.0 % 19-41 [facility] Work Phone: Blood monocytes/100 leukocyt eson 02-04-2021 Monocytes/100 WBC (Bld) 9.2 % 0-10 [facility] Work Phone: Blood platelet mean volumeon 02-04-2021 Platelet mean volume (Bld) [Entitic vol] 11.6 fL 6.2-12.0 [facility] Work Phone: Determination of erythrocyte mean corpuscular volume (MCV)on 02-04-2021 MCV (RBC) [Entitic vol] 90.0 fL 81-99 [facility] Work Phone: Hematocrit Auto (Bld) [Volum e fraction]on 02-04-2021 Hematocrit (Bld) [Volume fraction] 45.1 % 37-47 [facility] Work Phone: Laboratory - Hematology and Cell countson 02-04-2021 Basophils/100 WBC (Unsp spec) 0.5 % 0-1 [facility] Work Phone: Erythrocyte distribution width (RBC) [Entitic vol] 44.5 fL 35.1-43.9 [facility] Work Phone: Erythrocyte distribution width (RBC) [Ratio] 13.5 % 11.6-14.6 [facility] Work Phone: Immature granulocytes/100 WBC (Bld) 0.400 % 0.0-0.9 [facility] Work Phone: Comment on above: IG% - Immature Granu locytes (promyelocytes, myelocytes and metamyelocytes) > 1% indicates that a LEFT SHIFT is Present. MCH (RBC) [Entitic mass] 29.1 pg 27.0-32.0 [facility] Work Phone: Neutrophils/100 WBC (Bld) 60.4 % 47-70 [facility] Work Phone: Nucleated RBC/100 WBC (Bld) [Ratio] 0 % 0-5 [facility] Work Phone: MCHC Auto (RBC) [Mass/Vol]on 02-04-2021 MCHC (RBC) [Mass/Vol] 32.4 g/dL 32-36 [facility] Work Phone: Platelets bldon 02-04-2021 Platelets (Bld) [#/Vol] 246 10*3/uL 150-450 [facility] Work Phone: Serum or plasma cholesterol in HDL measurement (mass/volume)on 02-04-2021 Cholesterol in HDL [Mass/Vol] 59 mg/dL [facility] Work Phone: Comment on above: The drugs N-Acetylcy steine and Metamizole may falsely depress this assay. Reference Range HDL <40 mg/dL Low HDL Cholesterol HDL >or= 60 mg/dL High HDL Cholesterol Serum or plasma cholesterol in VLDL measurement (mass/volume)on 02-04-2021 Cholesterol in VLDL [Mass/Vol] 36 mg/dL 5-40 [facility] Work Phone: Serum or plasma low density lipoprotein (LDL) cholesterol measurement (mass/volume)on 02-04-2021 Cholesterol in LDL [Mass/Vol] 74 mg/dL 0-130 [facility] Work Phone: Basophil percentageon 2020 Bilirubin [Mass/Vol] 0.50 mg/dL 0.20-1.00 [facility] Work Phone: Comment on above: For patients on eltr ombopag therapy, use of Dimension [place] TBIL is not recommended. Protein [Mass/Vol] 8.3 g/dL 6.4-8.2 [facility] Work Phone: Laboratory - Chemistry and C hemistry - challengeon 02-03-2021 ALP [Catalytic activity/Vol] 126 U/L 45-117 [facility] Work Phone: ALT [Catalytic activity/Vol] 29 U/L 13-56 [facility] Work Phone: Globulin (S) [Mass/Vol] 4.7 g/dL 2.2-4.2 [facility] Work Phone: Natriuretic peptide B (Bld) [Mass/Vol] 654.8 pg/mL 0-100 [facility] Work Phone: No Panel Informationon 02-03 Troponin I High Sensitivity 21 pg/mL 3.0-54.0 [facility] Work Phone: Comment on above: Please Note: New Carly t Units and Gender Specific Reference Ranges. For more information see Policy Stat Procedure [place] High Sensitivity Troponin (TNIH) and attachments. D-Dimer Quantitative (PE/DVT) 2.26 FEU/ug/m 0.27-0.49 [facility] Work Phone: Comment on above: D-Dimer ELEVATED (>0 .49): Additional studies and clinicalassessments are indicated to conclude diagnosis of:Deep Vein Thrombosis (DVT) or Pulmonary Embolism (PE)CRITICAL VALUE VERIFIED. CALLED TO [id number]/21 [id number] Wilma Grayson.RESULTS READ BACK BY SAME . SARS-CoV-2 Antigen (Rapid) [facility] Work Phone: Serum or plasma albumin sary urement (mass/volume)on 02-03-2021 Albumin [Mass/Vol] 3.6 g/dL 3.2-5.0 [facility] Work Phone: Serum or plasma albumin/glob ulin mass ratioon 02-03-2021 Albumin/Globulin [Mass ratio] 0.8 {ratio} 0.9-2.4 [facility] Work Phone: Thin prep Papanicolaou smear with manual screeningon 02-03-2021 Thin prep Papanicolaou smear with manual screening 19 U/L 15-37 [facility] Work Phone: Glucose POCon 09-18-2018 Glucose [Mass/Vol] 107 mg/dL High 70-99 [facility] Comment on above: Performed By: #### [id number] #### MARY POC Subsection [facility] [place] [address] Glucose [Mass/Vol] 82 mg/dL Normal 70-99 [facility] Comment on above: Performed By: #### [id number] #### MARY POC Subsection [facility] [place] [address] Glucose [Mass/Vol] 130 mg/dL High 70-99 [facility] Comment on above: Performed By: #### [id number] #### MARY POC Subsection [facility] [place] [address] Vital Signs Date Time Vital Sign Value Performing Clinician Facility 05-03-2024 08:04-0400 Body temperature 98.2 [degF] Dr. Jose J Lezama DO Work Phone: [facility] 05-03-2024 08:04-0400 Diastolic blood pressure 66 mm[Hg] Dr. Jose J Lezama DO Work Phone: [facility] 05-03-2024 08:04-0400 Heart rate 64 /min Dr. Jose J Lezama DO Work Phone: [facility] 05-03-2024 08:04-0400 Respiratory rate 18 /min Dr. Jose J Lezama DO Work Phone: [facility] 05-03-2024 08:04-0400 SaO2% (BldA) [Mass fraction] 95 % Dr. Jose J Lezama DO Work Phone: [facility] 05-03-2024 08:04-0400 Systolic blood pressure 155 mm[Hg] Dr. Jose J Lezama DO Work Phone: [facility] 05-03-2024 03:00-0400 Inhaled oxygen flow rate 2 L/min Dr. Jose J Lezama DO Work Phone: [facility] 05-02-2024 13:26-0400 Body height 160.[address] Jose J Lezama DO Work Phone: [facility] 05-02-2024 13:26-0400 Body mass index (BMI) [Ratio] 29 kg/m2 Dr. Jose J Lezama DO Work Phone: [facility] 05-02-2024 13:26-0400 Body weight 74.[address] Jose J Lezama DO Work Phone: [facility] 05-02-2024 12:57-0400 Body temperature 98.4 [degF] Dr. Jose J Lezama DO Work Phone: [facility] 05-02-2024 12:57-0400 Diastolic blood pressure 64 mm[Hg] Dr. Jose J Lezama DO Work Phone: [facility] 05-02-2024 12:57-0400 Heart rate 71 /min Dr. Jose J Lezama DO Work Phone: [facility] 05-02-2024 12:57-0400 Respiratory rate 16 /min Dr. Jose J Lezama DO Work Phone: [facility] 05-02-2024 12:57-0400 SaO2% (BldA) [Mass fraction] 100 % Dr. Jose J Lezama DO Work Phone: [facility] 05-02-2024 12:57-0400 Systolic blood pressure 150 mm[Hg] Dr. Jose J Lezama DO Work Phone: [facility] 05-02-2024 08:17-0400 Body height 160.[address] Jose J Lezama DO Work Phone: [facility] 05-02-2024 08:17-0400 Body mass index (BMI) [Ratio] 30.2 kg/m2 Dr. Jose J Lezama DO Work Phone: [facility] 05-02-2024 08:17-0400 Body weight 77.[address] Jose J Lezama DO Work Phone: [facility] 03-11-2024 14:57-0500 Body mass index (BMI) [Ratio] 29.4 kg/m2 Dr. Jose J Lezama DO Work Phone: [facility] 03-11-2024 14:57-0500 Body weight 75.[address] Jose J Lezama DO Work Phone: [facility] 03-11-2024 14:57-0500 Diastolic blood pressure 82 mm[Hg] Dr. Jose J Lezama DO Work Phone: [facility] 03-11-2024 14:57-0500 Heart rate 69 /min Dr. Jose J Lezama DO Work Phone: [facility] 03-11-2024 14:57-0500 SaO2% (BldA) [Mass fraction] 92 % Dr. Jose J Lezama DO Work Phone: [facility] 03-11-2024 14:57-0500 Systolic blood pressure 191 mm[Hg] Dr. Jose J Lezama DO Work Phone: [facility] 03-11-2024 14:53-0500 Body mass index (BMI) [Ratio] 29.4 kg/m2 Dr. Jose J Lezama DO Work Phone: [facility] 03-11-2024 14:53-0500 Body weight 75.[address] Jose J Lezama DO Work Phone: [facility] 03-11-2024 14:53-0500 Diastolic blood pressure 76 mm[Hg] Dr. Jose J Lezama DO Work Phone: [facility] 03-11-2024 14:53-0500 Heart rate 76 /min Dr. Jose J Lezama DO Work Phone: [facility] 03-11-2024 14:53-0500 Respiratory rate 18 /min Dr. Jose J Lezama DO Work Phone: [facility] 03-11-2024 14:53-0500 Systolic blood pressure 150 mm[Hg] Dr. Jose J Lezama DO Work Phone: [facility] 02-13-2024 14:12-0500 Body temperature 97.7 [degF] Dr. Jose J Lezama DO Work Phone: [facility] 02-13-2024 14:12-0500 Body weight 75.[address] Jose J Lezama DO Work Phone: [facility] 02-13-2024 14:12-0500 Diastolic blood pressure 77 mm[Hg] Dr. Jose J Lezama DO Work Phone: [facility] 02-13-2024 14:12-0500 Heart rate 72 /min Dr. Jose J Lezama DO Work Phone: [facility] 02-13-2024 14:12-0500 Respiratory rate 16 /min Dr. Jose J Lezama DO Work Phone: [facility] 02-13-2024 14:12-0500 SaO2% (BldA) [Mass fraction] 95 % Dr. Jose J Lezama DO Work Phone: [facility] 02-13-2024 14:12-0500 Systolic blood pressure 198 mm[Hg] Dr. Jose J Lezama DO Work Phone: [facility] 02-21-2023 14:14-0500 Heart rate 66 /min Dr. Jose J Lezama Work Phone: [facility] 02-21-2023 14:10-0500 Body temperature 97.6 [degF] Dr. Jose J Lezama Work Phone: [facility] 02-21-2023 14:10-0500 Diastolic blood pressure 60 mm[Hg] Dr. Jose J Lezama Work Phone: [facility] 02-21-2023 14:10-0500 Respiratory rate 18 /min Dr. Jose J Lezama Work Phone: [facility] 02-21-2023 14:10-0500 SaO2% (BldA) [Mass fraction] 97 % Dr. Jose J Lezama Work Phone: [facility] 02-21-2023 14:10-0500 Systolic blood pressure 151 mm[Hg] Dr. Jose J Lezama Work Phone: [facility] 02-20-2023 08:15-0500 Inhaled oxygen flow rate 2 L/min Dr. Jose J Lezama Work Phone: [facility] 02-19-2023 10:09-0500 Body height 160.[address] Jose J Lezama Work Phone: [facility] 02-19-2023 10:09-0500 Body weight [address] Jose J Lezama Work Phone: [facility] 02-18-2023 23:21-0500 Body mass index (BMI) [Ratio] 27.3 kg/m2 Dr. Jose J Lezama Work Phone: [facility] 02-07-2023 14:46-0500 Diastolic blood pressure 57 mm[Hg] Dr. Jose J Lezama Work Phone: [facility] 02-07-2023 14:46-0500 Heart rate 63 /min Dr. Jose J Lezama Work Phone: [facility] 02-07-2023 14:46-0500 Systolic blood pressure 124 mm[Hg] Dr. Jose J Lezama Work Phone: [facility] 02-07-2023 14:00-0500 Body temperature 98.6 [degF] Dr. Jose J Lezama Work Phone: [facility] 02-07-2023 14:00-0500 Respiratory rate 16 /min Dr. Jose J Lezama Work Phone: [facility] 02-07-2023 14:00-0500 SaO2% (BldA) [Mass fraction] 95 % Dr. Jose J Lezama Work Phone: [facility] 02-07-2023 03:00-0500 Inhaled oxygen flow rate 2 L/min Dr. Jose J Lezama Work Phone: [facility] 02-04-2023 15:45-0500 Body weight 72.[address] Jose J Lezama Work Phone: [facility] 02-03-2023 19:28-0500 Body mass index (BMI) [Ratio] 28.3 kg/m2 Dr. Jose J Lezama Work Phone: [facility] 01-13-2023 14:09-0500 Body height 160.[address] Jose J Lezama Work Phone: [facility] 01-13-2023 14:09-0500 Body mass index (BMI) [Ratio] 27.3 kg/m2 Dr. Jose J Lezama Work Phone: [facility] 01-13-2023 14:09-0500 Body weight 69.[address] Jose J Lezama Work Phone: [facility] 01-13-2023 14:09-0500 Diastolic blood pressure 79 mm[Hg] Dr. Jose J Lezama Work Phone: [facility] 01-13-2023 14:09-0500 Heart rate 68 /min Dr. Jose J Lezama Work Phone: [facility] 01-13-2023 14:09-0500 Respiratory rate 18 /min Dr. Jose J Lezama Work Phone: [facility] 01-13-2023 14:09-0500 SaO2% (BldA) [Mass fraction] 92 % Dr. Jose J Lezama Work Phone: [facility] 01-13-2023 14:09-0500 Systolic blood pressure 155 mm[Hg] Dr. Jose J Lezama Work Phone: [facility] 12-07-2022 14:01-0400 Inhaled oxygen flow rate 2 L/min Dr. Jose J Lezama Work Phone: [facility] 12-07-2022 13:48-0400 Heart rate 73 /min Dr. Jose J Lezama Work Phone: [facility] 12-07-2022 13:42-0400 Body temperature 98 [degF] Dr. Jose J Lezama Work Phone: [facility] 12-07-2022 13:42-0400 Diastolic blood pressure 73 mm[Hg] Dr. Jose J Lezama Work Phone: [facility] 12-07-2022 13:42-0400 Respiratory rate 17 /min Dr. Jose J Lezama Work Phone: [facility] 12-07-2022 13:42-0400 SaO2% (BldA) [Mass fraction] 96 % Dr. Jose J Lezama Work Phone: [facility] 12-07-2022 13:42-0400 Systolic blood pressure 139 mm[Hg] Dr. Jose J Lezama Work Phone: [facility] 12-06-2022 10:58-0400 Body height 160.[address] Jose J Lezama Work Phone: [facility] 12-06-2022 10:58-0400 Body weight 68.[address] Jose J Lezama Work Phone: [facility] 12-05-2022 23:08-0400 Body mass index (BMI) [Ratio] 26.6 kg/m2 Dr. Jose J Lezama Work Phone: [facility] 12-05-2022 20:32-0400 Body temperature 97.6 [degF] Dr. Jose J Lezama Work Phone: [facility] 12-05-2022 20:32-0400 Diastolic blood pressure 59 mm[Hg] Dr. Jose J Lezama Work Phone: [facility] 12-05-2022 20:32-0400 Heart rate 67 /min Dr. Jose J Lezama Work Phone: [facility] 12-05-2022 20:32-0400 Respiratory rate 14 /min Dr. Jose J Lezama Work Phone: [facility] 12-05-2022 20:32-0400 SaO2% (BldA) [Mass fraction] 94 % Dr. Jose J Lezama Work Phone: [facility] 12-05-2022 20:32-0400 Systolic blood pressure 146 mm[Hg] Dr. Jose J Lezama Work Phone: [facility] 12-05-2022 16:23-0400 Inhaled oxygen flow rate 2 L/min Dr. Jose J Lezama Work Phone: [facility] 12-05-2022 16:14-0400 Body height 160.[address] Jose J Lezama Work Phone: [facility] 12-05-2022 16:14-0400 Body mass index (BMI) [Ratio] 30.7 kg/m2 Dr. Jose J Lezama Work Phone: [facility] 12-05-2022 16:14-0400 Body weight 78.[address] Jose J Lezama Work Phone: [facility] 12-04-2022 03:18-0400 Diastolic blood pressure 57 mm[Hg] Dr. Jose J Lezama Work Phone: [facility] 12-04-2022 03:18-0400 Heart rate 55 /min Dr. Jose J Lezama Work Phone: [facility] 12-04-2022 03:18-0400 Respiratory rate 15 /min Dr. Jose J Lezama Work Phone: [facility] 12-04-2022 03:18-0400 SaO2% (BldA) [Mass fraction] 92 % Dr. Jose J Lezama Work Phone: [facility] 12-04-2022 03:18-0400 Systolic blood pressure 134 mm[Hg] Dr. Jose J Lezama Work Phone: [facility] 12-04-2022 00:07-0400 Body height 160.[address] Jose J Lezama Work Phone: [facility] 12-04-2022 00:07-0400 Body mass index (BMI) [Ratio] 27.6 kg/m2 Dr. Jose J Lezama Work Phone: [facility] 12-04-2022 00:07-0400 Body temperature 98 [degF] Dr. Jose J Lezama Work Phone: [facility] 12-04-2022 00:07-0400 Body weight 70.[address] Jose J Lezama Work Phone: [facility] 12-02-2022 13:11-0400 Body mass index (BMI) [Ratio] 27.5 kg/m2 Dr. Jose J Lezama Work Phone: [facility] 12-02-2022 13:11-0400 Body temperature 97.5 [degF] Dr. Jose J Lezama Work Phone: [facility] 12-02-2022 13:11-0400 Body weight 70.[address] Jose J Lezama Work Phone: [facility] 12-02-2022 13:11-0400 Diastolic blood pressure 68 mm[Hg] Dr. Jose J Lezama Work Phone: [facility] 12-02-2022 13:11-0400 Heart rate 62 /min Dr. Jose J Lezama Work Phone: [facility] 12-02-2022 13:11-0400 Respiratory rate 16 /min Dr. Jose J Lezama Work Phone: [facility] 12-02-2022 13:11-0400 SaO2% (BldA) [Mass fraction] 97 % Dr. Jose J Lezama Work Phone: [facility] 12-02-2022 13:11-0400 Systolic blood pressure 156 mm[Hg] Dr. Jose J Lezama Work Phone: [facility] 11-30-2022 15:22-0400 Respiratory rate 16 /min Dr. Jose J Lezama Work Phone: [facility] 11-30-2022 13:36-0400 Body mass index (BMI) [Ratio] 27.6 kg/m2 Dr. Jose J Lezama Work Phone: [facility] 11-30-2022 13:36-0400 Body weight 70.[address] Jose J Lezama Work Phone: [facility] 11-30-2022 13:22-0400 Body temperature 98.2 [degF] Dr. Jose J Lezama Work Phone: [facility] 11-30-2022 13:22-0400 Diastolic blood pressure 80 mm[Hg] Dr. Jose J Lezama Work Phone: [facility] 11-30-2022 13:22-0400 Heart rate 67 /min Dr. Jose J Lezama Work Phone: [facility] 11-30-2022 13:22-0400 SaO2% (BldA) [Mass fraction] 96 % Dr. Jose J Lezama Work Phone: [facility] 11-30-2022 13:22-0400 Systolic blood pressure 185 mm[Hg] Dr. Jose J Lezama Work Phone: [facility] 11-21-2022 14:11-0400 Diastolic blood pressure 55 mm[Hg] Dr. Jose J Lezama Work Phone: [facility] 11-21-2022 14:11-0400 Heart rate 55 /min Dr. Jose J Lezama Work Phone: [facility] 11-21-2022 14:11-0400 Systolic blood pressure 124 mm[Hg] Dr. Jose J Lezama Work Phone: [facility] 11-21-2022 13:00-0400 Body temperature 98 [degF] Dr. Jose J Lezama Work Phone: [facility] 11-21-2022 13:00-0400 Respiratory rate 14 /min Dr. Jose J Lezama Work Phone: [facility] 11-21-2022 13:00-0400 SaO2% (BldA) [Mass fraction] 90 % Dr. Jose J Lezama Work Phone: [facility] 11-21-2022 12:34-0400 Inhaled oxygen flow rate 90 L/min Dr. Jose J Lezama Work Phone: [facility] 11-21-2022 03:55-0400 Body mass index (BMI) [Ratio] 28.4 kg/m2 Dr. Jose J Lezama Work Phone: [facility] 11-21-2022 03:55-0400 Body weight 72.[address] Jose J Lezama Work Phone: [facility] 11-20-2022 18:27-0400 Body height 160.[address] Jose J Lezama Work Phone: [facility] 11-01-2022 13:23-0400 Body mass index (BMI) [Ratio] 28 kg/m2 Dr. Jose J Lezama Work Phone: [facility] 11-01-2022 13:23-0400 Body weight 71.[address] Jose J Lezama Work Phone: [facility] 11-01-2022 13:23-0400 Diastolic blood pressure 97 mm[Hg] Dr. Jose J Lezama Work Phone: [facility] 11-01-2022 13:23-0400 Heart rate 69 /min Dr. Jose J Lezama Work Phone: [facility] 11-01-2022 13:23-0400 Respiratory rate 18 /min Dr. Jose J Lezama Work Phone: [facility] 11-01-2022 13:23-0400 Systolic blood pressure 138 mm[Hg] Dr. Jose J Lezama Work Phone: [facility] 09-02-2022 14:03-0400 Diastolic blood pressure 57 mm[Hg] Dr. Carlos Hernández Work Phone: [facility] 09-02-2022 14:03-0400 Heart rate 53 /min Dr. Carlos Hernández Work Phone: [facility] 09-02-2022 14:03-0400 Respiratory rate 17 /min Dr. Carlos Hernández Work Phone: [facility] 09-02-2022 14:03-0400 SaO2% (BldA) [Mass fraction] 94 % Dr. Carlos Hernández Work Phone: [facility] 09-02-2022 14:03-0400 Systolic blood pressure 129 mm[Hg] Dr. Carlos Hernández Work Phone: [facility] 09-02-2022 11:25-0400 Body mass index (BMI) [Ratio] 31.2 kg/m2 Dr. Carlos Hernández Work Phone: [facility] 09-02-2022 11:25-0400 Body temperature 98.2 [degF] Dr. Carlos Hernández Work Phone: [facility] 09-02-2022 11:25-0400 Body weight 80.[address] Carlos Hernández Work Phone: [facility] 09-02-2022 09:45-0400 Body height 160.[address] Carlos Hernández Work Phone: [facility] 08-29-2022 13:55-0400 Body mass index (BMI) [Ratio] 30.7 kg/m2 Dr. Carlos Hernández Work Phone: [facility] 08-29-2022 13:55-0400 Body temperature 97.8 [degF] Dr. Carlos Hernández Work Phone: [facility] 08-29-2022 13:55-0400 Body weight 78.[address] Carlos Hernández Work Phone: [facility] 08-29-2022 13:55-0400 Diastolic blood pressure 72 mm[Hg] Dr. Carlos Hernández Work Phone: [facility] 08-29-2022 13:55-0400 Heart rate 70 /min Dr. Carlos Hernández Work Phone: [facility] 08-29-2022 13:55-0400 Respiratory rate 16 /min Dr. Carlos Hernández Work Phone: [facility] 08-29-2022 13:55-0400 SaO2% (BldA) [Mass fraction] 96 % Dr. Carlos Hernández Work Phone: [facility] 08-29-2022 13:55-0400 Systolic blood pressure 128 mm[Hg] Dr. Carlos Hernández Work Phone: [facility] 08-24-2022 19:51-0400 Body mass index (BMI) [Ratio] 29.9 kg/m2 Dr. Carlos Hernández Work Phone: [facility] 08-24-2022 19:51-0400 Body temperature 96.7 [degF] Dr. Carlos Hernández Work Phone: [facility] 08-24-2022 19:51-0400 Body weight 76.[address] Carlos Hernández Work Phone: [facility] 08-24-2022 19:51-0400 Diastolic blood pressure 68 mm[Hg] Dr. Carlos Hernández Work Phone: [facility] 08-24-2022 19:51-0400 Heart rate 76 /min Dr. Carlos Hernández Work Phone: [facility] 08-24-2022 19:51-0400 Respiratory rate 18 /min Dr. Carlos Hernández Work Phone: [facility] 08-24-2022 19:51-0400 SaO2% (BldA) [Mass fraction] 94 % Dr. Carlos Hernández Work Phone: [facility] 08-24-2022 19:51-0400 Systolic blood pressure 164 mm[Hg] Dr. Carlos Hernández Work Phone: [facility] 08-15-2022 14:05-0400 Body mass index (BMI) [Ratio] 29.2 kg/m2 Dr. Carlos Hernández Work Phone: [facility] 08-15-2022 14:05-0400 Body weight 74.[address] Carlos Hernández Work Phone: [facility] 08-15-2022 14:05-0400 Diastolic blood pressure 74 mm[Hg] Dr. Carlos Hernández Work Phone: [facility] 08-15-2022 14:05-0400 Heart rate 63 /min Dr. Carlos Hernández Work Phone: [facility] 08-15-2022 14:05-0400 Respiratory rate 18 /min Dr. Carlos Hernández Work Phone: [facility] 08-15-2022 14:05-0400 SaO2% (BldA) [Mass fraction] 93 % Dr. Carlos Hernández Work Phone: [facility] 08-15-2022 14:05-0400 Systolic blood pressure 154 mm[Hg] Dr. Carlos Hernández Work Phone: [facility] 07-25-2022 13:55-0400 Body temperature 98.1 [degF] Dr. Fernando Kong Work Phone: [facility] 07-25-2022 13:55-0400 Diastolic blood pressure 66 mm[Hg] Dr. Fernando Kong Work Phone: [facility] 07-25-2022 13:55-0400 Heart rate 78 /min Dr. Fernando Kong Work Phone: [facility] 07-25-2022 13:55-0400 Respiratory rate 16 /min Dr. Fernando Kong Work Phone: [facility] 07-25-2022 13:55-0400 SaO2% (BldA) [Mass fraction] 93 % Dr. Fernando Kong Work Phone: [facility] 07-25-2022 13:55-0400 Systolic blood pressure 129 mm[Hg] Dr. Fernando Kong Work Phone: [facility] 07-25-2022 03:43-0400 Body mass index (BMI) [Ratio] 29.3 kg/m2 Dr. Fernando Kong Work Phone: [facility] 07-25-2022 03:43-0400 Body weight 75.[address] Fernando Kong Work Phone: [facility] 07-23-2022 04:43-0400 Inhaled oxygen flow rate 2 L/min Dr. Fernando Kong Work Phone: [facility] 07-19-2022 13:17-0400 Body height 160.[address] Fernando Kong Work Phone: [facility] 07-18-2022 14:56-0400 Inhaled oxygen flow rate 1.5 L/min Dr. Fernando Kong Work Phone: [facility] 07-18-2022 14:56-0400 SaO2% (BldA) [Mass fraction] 94 % Dr. Fernando Kong Work Phone: [facility] 07-18-2022 14:32-0400 Body temperature 96.7 [degF] Dr. Fernando Kong Work Phone: [facility] 07-18-2022 14:32-0400 Diastolic blood pressure 48 mm[Hg] Dr. Fernando Knog Work Phone: 4(775)893-[address] [place] [address] 07-18-2022 14:32-0400 Heart rate 63 /min Dr. Fernando Kong Work Phone: [facility] 07-18-2022 14:32-0400 Respiratory rate 21 /min Dr. Fernando Kong Work Phone: [facility] 07-18-2022 14:32-0400 Systolic blood pressure 163 mm[Hg] Dr. Fernando Kong Work Phone: [facility] 07-18-2022 10:43-0400 Body height 160.[address] Fernando Kong Work Phone: [facility] 07-18-2022 10:43-0400 Body mass index (BMI) [Ratio] 28.7 kg/m2 Dr. Fernando Kong Work Phone: [facility] 07-18-2022 10:43-0400 Body weight 73.[address] Fernando Kong Work Phone: [facility] 06-20-2022 13:14-0400 Body height 160.[address] Fernando Kong Work Phone: [facility] 06-20-2022 13:14-0400 Body mass index (BMI) [Ratio] 29.5 kg/m2 Dr. Fernando Kong Work Phone: [facility] 06-20-2022 13:14-0400 Body temperature 97.4 [degF] Dr. Fernando Kong Work Phone: [facility] 06-20-2022 13:14-0400 Body weight 75.[address] Fernando Kong Work Phone: [facility] 06-20-2022 13:14-0400 Diastolic blood pressure 74 mm[Hg] Dr. Fernando Kong Work Phone: [facility] 06-20-2022 13:14-0400 Heart rate 62 /min Dr. Fernando Kong Work Phone: [facility] 06-20-2022 13:14-0400 Respiratory rate 18 /min Dr. Fernando Kong Work Phone: [facility] 06-20-2022 13:14-0400 SaO2% (BldA) [Mass fraction] 90 % Dr. Fernando Kong Work Phone: [facility] 06-20-2022 13:14-0400 Systolic blood pressure 137 mm[Hg] Dr. Fernando Kong Work Phone: [facility] 06-06-2022 14:45-0400 Body mass index (BMI) [Ratio] 30 kg/m2 Dr. Fernando Kong Work Phone: [facility] 06-06-2022 14:45-0400 Body weight 76.[address] Fernando Kong Work Phone: [facility] 06-06-2022 14:45-0400 Diastolic blood pressure 70 mm[Hg] Dr. Fernando Kong Work Phone: [facility] 06-06-2022 14:45-0400 Heart rate 54 /min Dr. Fernando Kong Work Phone: [facility] 06-06-2022 14:45-0400 Respiratory rate 18 /min Dr. Fernando Kong Work Phone: [facility] 06-06-2022 14:45-0400 Systolic blood pressure 151 mm[Hg] Dr. Fernando Kong Work Phone: [facility] 05-28-2022 20:00-0400 Diastolic blood pressure 70 mm[Hg] Dr. Fernando Kong Work Phone: [facility] 05-28-2022 20:00-0400 Heart rate 80 /min Dr. Fernando Kong Work Phone: [facility] 05-28-2022 20:00-0400 Respiratory rate 18 /min Dr. Fernando Kong Work Phone: [facility] 05-28-2022 20:00-0400 SaO2% (BldA) [Mass fraction] 95 % Dr. Fernando Kong Work Phone: [facility] 05-28-2022 20:00-0400 Systolic blood pressure 130 mm[Hg] Dr. Fernando Kong Work Phone: [facility] 05-28-2022 18:55-0400 Body mass index (BMI) [Ratio] 30.9 kg/m2 Dr. Fernando Kong Work Phone: [facility] 05-28-2022 18:55-0400 Body weight 79.[address] Fernando Kong Work Phone: [facility] 05-28-2022 15:48-0400 Body temperature 96.8 [degF] Dr. Fernando Kong Work Phone: [facility] 05-24-2022 17:01-0400 Body temperature 98 [degF] Dr. Fernando Kong Work Phone: [facility] 05-24-2022 17:01-0400 Diastolic blood pressure 78 mm[Hg] Dr. Fernando Kong Work Phone: [facility] 05-24-2022 17:01-0400 Heart rate 65 /min Dr. Fernando Kong Work Phone: [facility] 05-24-2022 17:01-0400 Respiratory rate 16 /min Dr. Fernando Kong Work Phone: [facility] 05-24-2022 17:01-0400 SaO2% (BldA) [Mass fraction] 98 % Dr. Fernando Kong Work Phone: [facility] 05-24-2022 17:01-0400 Systolic blood pressure 132 mm[Hg] Dr. Fernando Kong Work Phone: [facility] 05-24-2022 15:15-0400 Inhaled oxygen flow rate 3 L/min Dr. Feranndo Kong Work Phone: [facility] 05-24-2022 10:33-0400 Body mass index (BMI) [Ratio] 30.2 kg/m2 Dr. Fernnado Kong Work Phone: [facility] 05-24-2022 10:33-0400 Body weight 77.[address] Fernando Kong Work Phone: [facility] 04-18-2022 13:12-0500 Body height 104.[address] Fernando Kong Work Phone: [facility] 04-18-2022 13:12-0500 Body mass index (BMI) [Ratio] 70.2 kg/m2 Dr. Fernando Kong Work Phone: [facility] 04-18-2022 13:12-0500 Body temperature 98.2 [degF] Dr. Fernando Kong Work Phone: [facility] 04-18-2022 13:12-0500 Body weight 76.[address] Fernando Kong Work Phone: [facility] 04-18-2022 13:12-0500 Diastolic blood pressure 72 mm[Hg] Dr. Fernando Kong Work Phone: [facility] 04-18-2022 13:12-0500 Heart rate 61 /min Dr. Fernando Kong Work Phone: [facility] 04-18-2022 13:12-0500 Respiratory rate 16 /min Dr. Fernando Kong Work Phone: [facility] 04-18-2022 13:12-0500 SaO2% (BldA) [Mass fraction] 92 % Dr. Fernando Kong Work Phone: [facility] 04-18-2022 13:12-0500 Systolic blood pressure 128 mm[Hg] Dr. Fernando Kong Work Phone: 1(143)996-180546 [place] [address] 02-28-2022 13:27-0500 Body mass index (BMI) [Ratio] 29.8 kg/m2 Dr. Fernando Kong Work Phone: 9(452)045-377546 [place] [address] 02-28-2022 13:27-0500 Body temperature 96.6 [degF] Dr. Fernando Kong Work Phone: 0(126)777-139046 [place] [address] 02-28-2022 13:27-0500 Body weight 76.[address] Fernando Kong Work Phone: 6(381)676-377246 [place] [address] 02-28-2022 13:27-0500 Diastolic blood pressure 68 mm[Hg] Dr. Fernando Kong Work Phone: 4(211)192-153746 [place] [address] 02-28-2022 13:27-0500 Heart rate 59 /min Dr. Fernando Kong Work Phone: 0(419)964-804446 [place] [address] 02-28-2022 13:27-0500 Respiratory rate 18 /min Dr. Fernando Kong Work Phone: [facility] 02-28-2022 13:27-0500 SaO2% (BldA) [Mass fraction] 94 % Dr. Fernando Kong Work Phone: 9(061)106-965146 [place] [address] 02-28-2022 13:27-0500 Systolic blood pressure 149 mm[Hg] Dr. Fernando Kong Work Phone: [facility] 02-14-2022 14:45-0500 Body mass index (BMI) [Ratio] 29.4 kg/m2 Dr. Fernando Kong Work Phone: 4(642)772-753946 [place] [address] 02-14-2022 14:45-0500 Body weight 75.[address] Fernando Kong Work Phone: [facility] 02-14-2022 14:45-0500 Diastolic blood pressure 68 mm[Hg] Dr. Fernando Kong Work Phone: [facility] 02-14-2022 14:45-0500 Heart rate 56 /min Dr. Fernando Kong Work Phone: [facility] 02-14-2022 14:45-0500 Respiratory rate 18 /min Dr. Fernando Kong Work Phone: [facility] 02-14-2022 14:45-0500 Systolic blood pressure 150 mm[Hg] Dr. Fernando Kong Work Phone: [facility] 11-30-2021 12:57-0400 Body height 160.[address] Fernando Kong Work Phone: [facility] Work Phone: 11-30-2021 12:57-0400 Body mass index (BMI) [Ratio] 28 kg/m2 Dr. Fernando Kong Work Phone: [facility] Work Phone: 11-30-2021 12:57-0400 Body temperature 96.4 [degF] Dr. Fernando Kong Work Phone: [facility] Work Phone: 11-30-2021 12:57-0400 Body weight 71.[address] Fernando Kong Work Phone: [facility] Work Phone: 11-30-2021 12:57-0400 Diastolic blood pressure 71 mm[Hg] Dr. Fernando Kong Work Phone: [facility] Work Phone: 11-30-2021 12:57-0400 Heart rate 58 /min Dr. Fernando Kong Work Phone: [facility] Work Phone: 11-30-2021 12:57-0400 Respiratory rate 18 /min Dr. Fernando Kong Work Phone: [facility] Work Phone: 11-30-2021 12:57-0400 SaO2% (BldA) [Mass fraction] 92 % Dr. Fernando Kong Work Phone: [facility] Work Phone: 11-30-2021 12:57-0400 Systolic blood pressure 143 mm[Hg] Dr. Fernando Kong Work Phone: [facility] Work Phone: 11-14-2021 14:21-0400 Body mass index (BMI) [Ratio] 27.1 kg/m2 Dr. Fernando Kong Work Phone: [facility] Work Phone: 11-14-2021 14:21-0400 Body weight 69.[address] Fernando Kong Work Phone: [facility] Work Phone: 11-14-2021 14:21-0400 Diastolic blood pressure 64 mm[Hg] Dr. Fernando Kong Work Phone: [facility] Work Phone: 11-14-2021 14:21-0400 Heart rate 64 /min Dr. Fernando Kong Work Phone: [facility] Work Phone: 11-14-2021 14:21-0400 Respiratory rate 18 /min Dr. Fernando Kong Work Phone: [facility] Work Phone: 11-14-2021 14:21-0400 Systolic blood pressure 140 mm[Hg] Dr. Fernando Kong Work Phone: [facility] Work Phone: 11-12-2021 14:22-0400 Body mass index (BMI) [Ratio] 27.1 kg/m2 Dr. Fernando Kong Work Phone: [facility] Work Phone: 11-12-2021 14:22-0400 Body weight 69.[address] Fernando Kong Work Phone: [facility] Work Phone: 10-09-2021 13:59-0400 Body temperature 96.4 [degF] Dr. Fernando Kong Work Phone: [facility] Work Phone: 10-09-2021 13:59-0400 Diastolic blood pressure 67 mm[Hg] Dr. Fernando Kong Work Phone: [facility] Work Phone: 10-09-2021 13:59-0400 Heart rate 59 /min Dr. Fernando Kong Work Phone: [facility] Work Phone: 10-09-2021 13:59-0400 Respiratory rate 20 /min Dr. Fernando Kong Work Phone: [facility] Work Phone: 10-09-2021 13:59-0400 SaO2% (BldA) [Mass fraction] 94 % Dr. Fernando Kong Work Phone: [facility] Work Phone: 10-09-2021 13:59-0400 Systolic blood pressure 133 mm[Hg] Dr. Fernando Kong Work Phone: [facility] Work Phone: 10-08-2021 13:22-0400 Body height 167.[address] Fernando Kong Work Phone: [facility] Work Phone: 10-08-2021 13:22-0400 Diastolic blood pressure 71 mm[Hg] Dr. Fernando Kong Work Phone: [facility] Work Phone: 10-08-2021 13:22-0400 Heart rate 66 /min Dr. Fernando Kong Work Phone: [facility] Work Phone: 10-08-2021 13:22-0400 Respiratory rate 16 /min Dr. Fernando Kong Work Phone: [facility] Work Phone: 10-08-2021 13:22-0400 Systolic blood pressure 141 mm[Hg] Dr. Fernando Kong Work Phone: [facility] Work Phone: 10-01-2021 06:44-0400 Diastolic blood pressure 87 mm[Hg] Dr. Fernando Kong Work Phone: [facility] Work Phone: 10-01-2021 06:44-0400 Heart rate 78 /min Dr. Fernando Kong Work Phone: [facility] Work Phone: 10-01-2021 06:44-0400 Respiratory rate 16 /min Dr. Fernando Kong Work Phone: [facility] Work Phone: 10-01-2021 06:44-0400 SaO2% (BldA) [Mass fraction] 95 % Dr. Fernando Kong Work Phone: [facility] Work Phone: 10-01-2021 06:44-0400 Systolic blood pressure 157 mm[Hg] Dr. Fernando Kong Work Phone: [facility] Work Phone: 10-01-2021 05:53-0400 Body height 167.[address] Fernando Kong Work Phone: [facility] Work Phone: 10-01-2021 05:53-0400 Body mass index (BMI) [Ratio] 34.3 kg/m2 Dr. Fernando Kong Work Phone: [facility] Work Phone: 10-01-2021 05:53-0400 Body temperature 97.5 [degF] Dr. Fernando Kong Work Phone: [facility] Work Phone: 10-01-2021 05:53-0400 Body weight 96.[address] Fernando Kong Work Phone: [facility] Work Phone: 09-28-2021 14:24-0400 Body temperature 97.9 [degF] Dr. Fernando Kong Work Phone: [facility] Work Phone: 09-28-2021 14:24-0400 Diastolic blood pressure 60 mm[Hg] Dr. Fernando Kong Work Phone: [facility] Work Phone: 09-28-2021 14:24-0400 Heart rate 58 /min Dr. Fernando Kong Work Phone: [facility] Work Phone: 09-28-2021 14:24-0400 Inhaled oxygen flow rate 2 L/min Dr. Fernando Kong Work Phone: [facility] Work Phone: 09-28-2021 14:24-0400 Respiratory rate 18 /min Dr. Fernando Kong Work Phone: [facility] Work Phone: 09-28-2021 14:24-0400 SaO2% (BldA) [Mass fraction] 95 % Dr. Fernando Kong Work Phone: [facility] Work Phone: 09-28-2021 14:24-0400 Systolic blood pressure 133 mm[Hg] Dr. Fernando Kong Work Phone: [facility] Work Phone: 09-28-2021 10:12-0400 Body height 160.[address] Fernando Kong Work Phone: [facility] Work Phone: 09-28-2021 10:12-0400 Body weight [address] Fernando Kong Work Phone: [facility] Work Phone: 09-25-2021 02:25-0400 Inhaled oxygen concentration 40 % Dr. Fernando Kong Work Phone: [facility] Work Phone: 09-21-2021 23:17-0400 Body temperature 98.3 [degF] Dr. Fernando Kong Work Phone: [facility] Work Phone: 09-21-2021 23:17-0400 Diastolic blood pressure 80 mm[Hg] Dr. Fernando Kong Work Phone: [facility] Work Phone: 09-21-2021 23:17-0400 Heart rate 115 /min Dr. Fernando Kong Work Phone: [facility] Work Phone: 09-21-2021 23:17-0400 Inhaled oxygen flow rate 3 L/min Dr. Fernando Kong Work Phone: [facility] Work Phone: 09-21-2021 23:17-0400 Respiratory rate 20 /min Dr. Fernando Kong Work Phone: [facility] Work Phone: 09-21-2021 23:17-0400 SaO2% (BldA) [Mass fraction] 93 % Dr. Fernando Kong Work Phone: [facility] Work Phone: 09-21-2021 23:17-0400 Systolic blood pressure 158 mm[Hg] Dr. Fernando Kong Work Phone: [facility] Work Phone: 09-21-2021 23:08-0400 Body mass index (BMI) [Ratio] 30.4 kg/m2 Dr. Fernando Kong Work Phone: [facility] Work Phone: 09-21-2021 18:04-0400 Body height 162.[address] Fernando Kong Work Phone: [facility] Work Phone: 09-21-2021 18:04-0400 Body mass index (BMI) [Ratio] 28.1 kg/m2 Dr. Fernando Kong Work Phone: [facility] Work Phone: 09-21-2021 18:04-0400 Body weight 74.[address] Fernando Kong Work Phone: [facility] Work Phone: 08-17-2021 14:43-0400 Body height 160.[address] Fernando Kong Work Phone: [facility] Work Phone: 08-17-2021 14:43-0400 Body mass index (BMI) [Ratio] 29.7 kg/m2 Dr. Fernando Kong Work Phone: [facility] Work Phone: 08-17-2021 14:43-0400 Body temperature 96.1 [degF] Dr. Fernando Kong Work Phone: [facility] Work Phone: 08-17-2021 14:43-0400 Body weight 76.[address] Fernando Kong Work Phone: [facility] Work Phone: 08-17-2021 14:43-0400 Diastolic blood pressure 60 mm[Hg] Dr. Fernando Kong Work Phone: [facility] Work Phone: 08-17-2021 14:43-0400 Heart rate 54 /min Dr. Fernando Kong Work Phone: [facility] Work Phone: 08-17-2021 14:43-0400 Respiratory rate 18 /min Dr. Fernando Kong Work Phone: [facility] Work Phone: 08-17-2021 14:43-0400 SaO2% (BldA) [Mass fraction] 94 % Dr. Fernando Kong Work Phone: [facility] Work Phone: 08-17-2021 14:43-0400 Systolic blood pressure 118 mm[Hg] Dr. Fernando Kong Work Phone: [facility] Work Phone: 08-01-2021 20:53-0400 Heart rate 78 /min Dr. Fernando Kong Work Phone: [facility] Work Phone: 08-01-2021 20:53-0400 Respiratory rate 16 /min Dr. Fernando Kong Work Phone: [facility] Work Phone: 08-01-2021 20:53-0400 SaO2% (BldA) [Mass fraction] 97 % Dr. Fernando Kong Work Phone: [facility] Work Phone: 08-01-2021 19:50-0400 Body height 160.[address] Fernando Kong Work Phone: [facility] Work Phone: 08-01-2021 19:50-0400 Body mass index (BMI) [Ratio] 28.8 kg/m2 Dr. Fernando Kong Work Phone: [facility] Work Phone: 08-01-2021 19:50-0400 Body temperature 97.8 [degF] Dr. Fernando Kong Work Phone: [facility] Work Phone: 08-01-2021 19:50-0400 Body weight 73.[address] Fernando Kong Work Phone: [facility] Work Phone: 08-01-2021 19:50-0400 Diastolic blood pressure 64 mm[Hg] Dr. Fernando Kong Work Phone: [facility] Work Phone: 08-01-2021 19:50-0400 Systolic blood pressure 175 mm[Hg] Dr. Fernando Kong Work Phone: [facility] Work Phone: 07-17-2021 16:36-0400 Body height 160.[address] Fernando Kong Work Phone: [facility] Work Phone: 07-17-2021 16:36-0400 Body mass index (BMI) [Ratio] 29.9 kg/m2 Dr. Fernando Kong Work Phone: [facility] Work Phone: 07-17-2021 16:36-0400 Body temperature 97.5 [degF] Dr. Fernando Kong Work Phone: [facility] Work Phone: 07-17-2021 16:36-0400 Body weight 76.[address] Fernando Kong Work Phone: [facility] Work Phone: 07-17-2021 16:36-0400 Diastolic blood pressure 70 mm[Hg] Dr. Fernando Kong Work Phone: [facility] Work Phone: 07-17-2021 16:36-0400 Heart rate 65 /min Dr. Fernando Kong Work Phone: [facility] Work Phone: 07-17-2021 16:36-0400 Respiratory rate 18 /min Dr. Fernando Kong Work Phone: [facility] Work Phone: 07-17-2021 16:36-0400 SaO2% (BldA) [Mass fraction] 95 % Dr. Fernando Kong Work Phone: [facility] Work Phone: 07-17-2021 16:36-0400 Systolic blood pressure 136 mm[Hg] Dr. Fernando Kong Work Phone: [facility] Work Phone: 07-17-2021 16:36-0400 Body height 160.[address] Fernando Kong Work Phone: [facility] Work Phone: 07-17-2021 16:36-0400 Body mass index (BMI) [Ratio] 29.9 kg/m2 Dr. Fernando Kong Work Phone: [facility] Work Phone: 07-17-2021 16:36-0400 Body temperature 97.5 [degF] Dr. Fernando Kong Work Phone: [facility] Work Phone: 07-17-2021 16:36-0400 Body weight 76.[address] Fernando Kong Work Phone: [facility] Work Phone: 07-17-2021 16:36-0400 Diastolic blood pressure 70 mm[Hg] Dr. Fernando Kong Work Phone: [facility] Work Phone: 07-17-2021 16:36-0400 Heart rate 65 /min Dr. Fernando Kong Work Phone: [facility] Work Phone: 07-17-2021 16:36-0400 Respiratory rate 18 /min Dr. Frenando Kong Work Phone: [facility] Work Phone: 07-17-2021 16:36-0400 SaO2% (BldA) [Mass fraction] 95 % Dr. Fernando Kong Work Phone: [facility] Work Phone: 07-17-2021 16:36-0400 Systolic blood pressure 136 mm[Hg] Dr. Fernando Kong Work Phone: [facility] Work Phone: 07-02-2021 14:58-0400 Diastolic blood pressure 69 mm[Hg] Dr. Fernando Kong Work Phone: [facility] Work Phone: 07-02-2021 14:58-0400 SaO2% (BldA) [Mass fraction] 96 % Dr. Fernando Kong Work Phone: [facility] Work Phone: 07-02-2021 14:58-0400 Systolic blood pressure 148 mm[Hg] Dr. Fernando Kong Work Phone: [facility] Work Phone: 07-02-2021 12:00-0400 Body height 160.[address] Fernando Kong Work Phone: [facility] Work Phone: 07-02-2021 12:00-0400 Body mass index (BMI) [Ratio] 28.8 kg/m2 Dr. Fernando Kong Work Phone: [facility] Work Phone: 07-02-2021 12:00-0400 Body temperature 97.6 [degF] Dr. Fernando Kong Work Phone: [facility] Work Phone: 07-02-2021 12:00-0400 Body weight 73.[address] Fernando Kong Work Phone: [facility] Work Phone: 07-02-2021 12:00-0400 Heart rate 63 /min Dr. Fernando Kong Work Phone: [facility] Work Phone: 07-02-2021 12:00-0400 Respiratory rate 18 /min Dr. Fernando Kong Work Phone: [facility] Work Phone: 06-27-2021 14:38-0400 Body mass index (BMI) [Ratio] 30.6 kg/m2 Dr. Fernando Kong Work Phone: [facility] Work Phone: 06-27-2021 14:38-0400 Body temperature 95 [degF] Dr. Fernando Kong Work Phone: [facility] Work Phone: 06-27-2021 14:38-0400 Body weight 78.[address] Fernando Kong Work Phone: [facility] Work Phone: 06-27-2021 14:38-0400 Diastolic blood pressure 60 mm[Hg] Dr. Fernando Kong Work Phone: [facility] Work Phone: 06-27-2021 14:38-0400 Heart rate 93 /min Dr. Fernando Kong Work Phone: [facility] Work Phone: 06-27-2021 14:38-0400 Respiratory rate 22 /min Dr. Fernando Kong Work Phone: [facility] Work Phone: 06-27-2021 14:38-0400 SaO2% (BldA) [Mass fraction] 93 % Dr. Fernando Kong Work Phone: [facility] Work Phone: 06-27-2021 14:38-0400 Systolic blood pressure 140 mm[Hg] Dr. Fernando Kong Work Phone: [facility] Work Phone: 06-27-2021 14:38-0400 Body mass index (BMI) [Ratio] 30.6 kg/m2 Dr. Fernando Kong Work Phone: [facility] Work Phone: 06-27-2021 14:38-0400 Body temperature 95 [degF] Dr. Fernando Kong Work Phone: [facility] Work Phone: 06-27-2021 14:38-0400 Body weight 78.[address] Fernando Kong Work Phone: [facility] Work Phone: 06-27-2021 14:38-0400 Diastolic blood pressure 60 mm[Hg] Dr. Fernando Kong Work Phone: [facility] Work Phone: 06-27-2021 14:38-0400 Heart rate 93 /min Dr. Fernando Kong Work Phone: [facility] Work Phone: 06-27-2021 14:38-0400 Respiratory rate 22 /min Dr. Fernando Kong Work Phone: [facility] Work Phone: 06-27-2021 14:38-0400 SaO2% (BldA) [Mass fraction] 93 % Dr. Fernando Kong Work Phone: [facility] Work Phone: 06-27-2021 14:38-0400 Systolic blood pressure 140 mm[Hg] Dr. Fernando Kong Work Phone: [facility] Work Phone: 06-20-2021 13:33-0400 Body mass index (BMI) [Ratio] 29.7 kg/m2 Dr. Fernando Kong Work Phone: [facility] Work Phone: 06-20-2021 13:33-0400 Body weight 76.[address] Fernando Kong Work Phone: [facility] Work Phone: 06-20-2021 13:33-0400 Diastolic blood pressure 58 mm[Hg] Dr. Fernando Kong Work Phone: [facility] Work Phone: 06-20-2021 13:33-0400 Heart rate 52 /min Dr. Fernando Kong Work Phone: [facility] Work Phone: 06-20-2021 13:33-0400 Respiratory rate 18 /min Dr. Fernando Kong Work Phone: [facility] Work Phone: 06-20-2021 13:33-0400 Systolic blood pressure 125 mm[Hg] Dr. Fernando Kong Work Phone: [facility] Work Phone: 06-20-2021 13:33-0400 Body mass index (BMI) [Ratio] 29.7 kg/m2 Dr. Fernadno Kong Work Phone: [facility] Work Phone: 06-20-2021 13:33-0400 Body weight 76.[address] Fernando Kong Work Phone: [facility] Work Phone: 06-20-2021 13:33-0400 Diastolic blood pressure 58 mm[Hg] Dr. Fernando Kong Work Phone: [facility] Work Phone: 06-20-2021 13:33-0400 Heart rate 52 /min Dr. Fernando Kong Work Phone: [facility] Work Phone: 06-20-2021 13:33-0400 Respiratory rate 18 /min Dr. Fernando Kong Work Phone: [facility] Work Phone: 06-20-2021 13:33-0400 Systolic blood pressure 125 mm[Hg] Dr. Fernando Kong Work Phone: [facility] Work Phone: 06-16-2021 21:50-0400 SaO2% (BldA) [Mass fraction] 94 % Dr. Fernando Kong Work Phone: [facility] Work Phone: 06-16-2021 21:21-0400 Heart rate 88 /min Dr. Fernando Kong Work Phone: [facility] Work Phone: 06-16-2021 21:21-0400 Respiratory rate 18 /min Dr. Fernando Kong Work Phone: [facility] Work Phone: 06-16-2021 19:27-0400 Body temperature 98.2 [degF] Dr. Fernando Kong Work Phone: [facility] Work Phone: 06-16-2021 19:27-0400 Diastolic blood pressure 76 mm[Hg] Dr. Fernando Kong Work Phone: [facility] Work Phone: 06-16-2021 19:27-0400 Inhaled oxygen flow rate 2 L/min Dr. Fernando Kong Work Phone: [facility] Work Phone: 06-16-2021 19:27-0400 Systolic blood pressure 168 mm[Hg] Dr. Fernando Kong Work Phone: [facility] Work Phone: 06-16-2021 17:17-0400 Body height 160.[address] Fernando Kong Work Phone: [facility] Work Phone: 06-16-2021 17:17-0400 Body mass index (BMI) [Ratio] 28.7 kg/m2 Dr. Fernando Kong Work Phone: [facility] Work Phone: 06-16-2021 17:17-0400 Body weight 73.[address] Fernando Kong Work Phone: [facility] Work Phone: 05-24-2021 13:09-0400 Body mass index (BMI) [Ratio] 30.1 kg/m2 Dr. Fernando Kong Work Phone: [facility] Work Phone: 05-24-2021 13:09-0400 Body temperature 96.7 [degF] Dr. Fernando Kong Work Phone: [facility] Work Phone: 05-24-2021 13:09-0400 Body weight 77.[address] Fernando Kong Work Phone: [facility] Work Phone: 05-24-2021 13:09-0400 Diastolic blood pressure 60 mm[Hg] Dr. Fernando Kong Work Phone: [facility] Work Phone: 05-24-2021 13:09-0400 Heart rate 64 /min Dr. Fernando Kong Work Phone: [facility] Work Phone: 05-24-2021 13:09-0400 Respiratory rate 20 /min Dr. Fernando Kong Work Phone: [facility] Work Phone: 05-24-2021 13:09-0400 SaO2% (BldA) [Mass fraction] 94 % Dr. Fernando Kong Work Phone: [facility] Work Phone: 05-24-2021 13:09-0400 Systolic blood pressure 140 mm[Hg] Dr. Fernando Kong Work Phone: [facility] Work Phone: 05-24-2021 13:09-0400 Body height 160.[address] Fernando Kong Work Phone: [facility] Work Phone: 05-24-2021 13:09-0400 Body mass index (BMI) [Ratio] 30.1 kg/m2 Dr. Fernando Kong Work Phone: [facility] Work Phone: 05-24-2021 13:09-0400 Body temperature 96.7 [degF] Dr. Fernando Kong Work Phone: [facility] Work Phone: 05-24-2021 13:09-0400 Body weight 77.[address] Fernando Kong Work Phone: [facility] Work Phone: 05-24-2021 13:09-0400 Diastolic blood pressure 60 mm[Hg] Dr. Fernando Kong Work Phone: [facility] Work Phone: 05-24-2021 13:09-0400 Heart rate 64 /min Dr. Fernando Kong Work Phone: [facility] Work Phone: 05-24-2021 13:09-0400 Respiratory rate 20 /min Dr. Fernando Kong Work Phone: [facility] Work Phone: 05-24-2021 13:09-0400 SaO2% (BldA) [Mass fraction] 94 % Dr. Fernando Kong Work Phone: [facility] Work Phone: 05-24-2021 13:09-0400 Systolic blood pressure 140 mm[Hg] Dr. Fernando Kong Work Phone: [facility] Work Phone: 04-26-2021 15:04-0400 Body mass index (BMI) [Ratio] 29.4 kg/m2 Dr. Fernando Kong Work Phone: [facility] Work Phone: 04-26-2021 15:04-0400 Body temperature 96.8 [degF] Dr. Fernando Kong Work Phone: [facility] Work Phone: 04-26-2021 15:04-0400 Body weight 75.[address] Fernando Kong Work Phone: [facility] Work Phone: 04-26-2021 15:04-0400 Diastolic blood pressure 80 mm[Hg] Dr. Fernando Kong Work Phone: [facility] Work Phone: 04-26-2021 15:04-0400 Heart rate 68 /min Dr. Fernando Kong Work Phone: [facility] Work Phone: 04-26-2021 15:04-0400 Respiratory rate 18 /min Dr. Fernando Kong Work Phone: [facility] Work Phone: 04-26-2021 15:04-0400 SaO2% (BldA) [Mass fraction] 93 % Dr. Fernando Kong Work Phone: [facility] Work Phone: 04-26-2021 15:04-0400 Systolic blood pressure 130 mm[Hg] Dr. Fernando Kong Work Phone: [facility] Work Phone: 04-26-2021 15:04-0400 Body mass index (BMI) [Ratio] 29.4 kg/m2 Dr. Fernando Kong Work Phone: [facility] Work Phone: 04-26-2021 15:04-0400 Body temperature 96.8 [degF] Dr. Fernando Kong Work Phone: [facility] Work Phone: 04-26-2021 15:04-0400 Body weight 75.[address] Fernando Kong Work Phone: [facility] Work Phone: 04-26-2021 15:04-0400 Diastolic blood pressure 80 mm[Hg] Dr. Fernando Kong Work Phone: [facility] Work Phone: 04-26-2021 15:04-0400 Heart rate 68 /min Dr. Fernando Kong Work Phone: [facility] Work Phone: 04-26-2021 15:04-0400 Respiratory rate 18 /min Dr. Fernando Kong Work Phone: [facility] Work Phone: 04-26-2021 15:04-0400 SaO2% (BldA) [Mass fraction] 93 % Dr. Fernando Kong Work Phone: [facility] Work Phone: 04-26-2021 15:04-0400 Systolic blood pressure 130 mm[Hg] Dr. Fernando Kong Work Phone: [facility] Work Phone: 03-29-2021 14:11-0500 Body mass index (BMI) [Ratio] 29.5 kg/m2 Dr. Fernando Kong Work Phone: [facility] Work Phone: 03-29-2021 14:11-0500 Body temperature 96.9 [degF] Dr. Fernando Kong Work Phone: [facility] Work Phone: 03-29-2021 14:11-0500 Body weight 75.[address] Fernando Kong Work Phone: [facility] Work Phone: 03-29-2021 14:11-0500 Diastolic blood pressure 60 mm[Hg] Dr. Fernando Kong Work Phone: [facility] Work Phone: 03-29-2021 14:11-0500 Heart rate 68 /min Dr. Fernando Kong Work Phone: [facility] Work Phone: 03-29-2021 14:11-0500 Respiratory rate 22 /min Dr. Fernando Kong Work Phone: [facility] Work Phone: 03-29-2021 14:11-0500 SaO2% (BldA) [Mass fraction] 91 % Dr. Fernando Kong Work Phone: [facility] Work Phone: 03-29-2021 14:11-0500 Systolic blood pressure 122 mm[Hg] Dr. Fernando Kong Work Phone: [facility] Work Phone: 03-13-2021 13:58-0500 Body mass index (BMI) [Ratio] 29.9 kg/m2 Dr. Fernando Kong Work Phone: [facility] Work Phone: 03-13-2021 13:58-0500 Body temperature 97.1 [degF] Dr. Fernando Kong Work Phone: [facility] Work Phone: 03-13-2021 13:58-0500 Body weight 76.[address] Fernando Kong Work Phone: [facility] Work Phone: 03-13-2021 13:58-0500 Diastolic blood pressure 66 mm[Hg] Dr. Fernando Kong Work Phone: [facility] Work Phone: 03-13-2021 13:58-0500 Heart rate 72 /min Dr. Fernando Kong Work Phone: [facility] Work Phone: 03-13-2021 13:58-0500 Respiratory rate 18 /min Dr. Fernando Kong Work Phone: [facility] Work Phone: 03-13-2021 13:58-0500 SaO2% (BldA) [Mass fraction] 96 % Dr. Fernando Kong Work Phone: [facility] Work Phone: 03-13-2021 13:58-0500 Systolic blood pressure 140 mm[Hg] Dr. Fernando Kong Work Phone: [facility] Work Phone: 02-06-2021 13:32-0500 Heart rate 60 /min Dr. Fernando Kong Work Phone: [facility] Work Phone: 02-06-2021 12:16-0500 Diastolic blood pressure 54 mm[Hg] Dr. Fernando Kong Work Phone: [facility] Work Phone: 02-06-2021 12:16-0500 Systolic blood pressure 110 mm[Hg] Dr. Fernando Kong Work Phone: [facility] Work Phone: 02-06-2021 12:13-0500 Body temperature 98.1 [degF] Dr. Fernando Kong Work Phone: [facility] Work Phone: 02-06-2021 12:13-0500 Respiratory rate 16 /min Dr. Fernando Kong Work Phone: [facility] Work Phone: 02-06-2021 12:13-0500 SaO2% (BldA) [Mass fraction] 92 % Dr. Fernando Kong Work Phone: [facility] Work Phone: 02-06-2021 04:41-0500 Body weight 72.[address] Fernando Kong Work Phone: [facility] Work Phone: 02-03-2021 11:39-0500 Body mass index (BMI) [Ratio] 28.3 kg/m2 Dr. Fernando Kong Work Phone: [facility] Work Phone: Encounters Encounter Date Encounter Type Care Provider Facility Start: 08-25-2024 ambulatory [facility] Start: 05-20-2024 End: 05-20-2024 ambulatory [facility] Start: 05-13-2024 ambulatory Galileo Goodei ty:[facility] Start: 05-03-2024 Dr. Bernardino Briceno MD -[facility] Work Phone: Start: 05-02-2024 Dr. Bernardino Briceno MD -[facility] Work Phone: Start: 05-02-2024 End: 05-03-2024 ambulatory [facility] Facility:[facility] Start: 05-02-2024 End: 05-03-[address] Jose J Lezama DO Work Phone: [facility] Work Phone: Start: 05-02-2024 End: 05-03-2024 Dr. Bernardino Briceno MD -Progressive Care Unit Work Phone: Start: 04-01-2024 End: 04-01-2024 Lucretia Akhtar [employer] -[facility] Work Phone: Start: 04-01-2024 End: 04-01-2024 ambulatory Lucretia Hermilo Facility:[facility] Start: 03-11-2024 End: 03-11-2024 Bam Phillips [employer] -[facility] Work Phone: Start: 03-11-2024 End: 03-11-2024 ambulatory Bam Phillips [employer] [facility] Start: 02-13-2024 End: 02-13-2024 Taylor CHICAS -[facility] Work Phone: Start: 02-13-2024 End: 02-13-2024 ambulatory [facility] Start: 12-30-2023 End: 12-30-2023 ambulatory [facility] Start: 11-20-2023 ambulatory Yuriy Gaona [facility] Start: 11-20-2023 End: 11-20-2023 ambulatory Jose J IzaguirreTeja Facility:[facility] Start: 11-11-2023 End: 11-11-2023 ambulatory Jose J Lezama [facility] Start: 10-16-2023 End: 10-16-2023 ambulatory Lucretia Akhtar [facility] Start: 09-25-2023 ambulatory Jose J Reardonman Facility: [facility] Start: 09-15-2023 End: 09-15-2023 ambulatory Bam Phillips [employer] [facility] Start: 09-02-2023 End: 09-02-2023 Emergency department patient visit Jose J Reardonman Facility:[facility] Start: 02-21-2023 Dr. Jose J sullivan Work Phone: [facility] Work Phone: Start: 02-20-2023 Dr. Jose J sullivan Work Phone: [facility] Work Phone: Start: 02-19-2023 Dr. Jose J sullivan Work Phone: [facility] Work Phone: Start: 02-18-2023 End: 02-21-[address] Jose J Lezama Work Phone: [facility] Work Phone: Start: 02-18-2023 End: 02-21-2023 Dr. Jose J Lezama Work Phone: [facility]-Medical Surgical 2 Work Phone: Start: 02-07-2023 Dr. Jose J sullivan Work Phone: [facility] Work Phone: Start: 02-06-2023 Dr. Jose J sullivan Work Phone: [facility] Work Phone: Start: 02-05-2023 Dr. Jose J sullivan Work Phone: [facility] Work Phone: Start: 02-04-2023 Dr. Jose J sullivan Work Phone: [facility] Work Phone: Start: 02-03-2023 End: 02-07-2023 Dr[facility] Start: 01-13-2023 End: 01-13-2023 Dr. Jose J Lezama Work Phone: [facility] Work Phone: Start: 12-23-2022 End: 12-23-[address] Jose J Lezama Work Phone: [facility] Work Phone: Start: 12-23-2022 End: 12-23-2022 Dr. Jose J Lezama Work Phone: [facility] Start: 12-20-2022 End: 12-20-[address] Jose J Lezama Work Phone: [facility] Work Phone: Start: 12-20-2022 End: 12-20-2022 Dr. Jose J Lezama Work Phone: [facility] Start: 12-16-2022 Dr. Jose J sullivan Work Phone: [facility] Start: 12-09-2022 Dr. Jose J sullivan Work Phone: [facility] Start: 12-07-2022 Dr. Jose J sullivan Work Phone: [facility] Work Phone: Start: 12-06-2022 Dr. Jose J sullivan Work Phone: [facility] Work Phone: Start: 12-05-2022 End: 12-07-[address] Jose J Lezama Work Phone: [facility] Work Phone: Start: 12-05-2022 End: 12-07-2022 Dr. [facility] J [facility] Start: 12-04-2022 End: 12-04-2022 Emergency department patient visit Dr. Jose J Lezama Work Phone: [facility] Work Phone: Start: 12-04-2022 End: 12-04-2022 Dr. Jose J Lezama Work Phone: [facility]-Emergency Department Work Phone: Start: 12-02-2022 End: 12-02-2022 Dr. Jose J Lezama Work Phone: [facility] Work Phone: Start: 11-30-2022 End: 11-30-2022 Dr. Jose J Lezama Work Phone: [facility]-Emergency Department Work Phone: Start: 11-21-2022 Dr. Jose J sullivan Work Phone: [facility] Work Phone: Start: 11-20-2022 End: 11-21-[address] Jose J Lezama Work Phone: [facility] Work Phone: Start: 11-20-2022 End: 11-21-2022 Dr. Jose J Lezama Work Phone: [facility] Work Phone: Start: 11-12-2022 End: 11-12-2022 Dr. Jose J Le[facility]ama [facility] Start: 11-01-2022 End: 11-01-2022 Dr. Jose J Lezama Work Phone: [facility] Work Phone: Start: 09-26-2022 End: 09-26-[address] Fernando Kong Work Phone: [facility] Work Phone: Start: 09-26-2022 End: 09-26-2022 Dr. Fernando Kong [facility] [address] Start: 09-13-2022 End: 09-13-2022 Dr. Fernando Kong [facility] Start: 09-02-2022 End: 09-02-2022 Emergency department patient visit Dr. Carlos Hernández Work Phone: [facility] Work Phone: Start: 09-02-2022 End: 09-02-2022 Dr. Carlos Hernández Work Phone: [facility]-Emergency Department Work Phone: Start: 08-29-2022 End: 08-29-2022 Dr. Carlos Hernández Work Phone: [facility] Work Phone: Start: 08-24-2022 End: 08-24-2022 Dr. Carlos Hernández Work Phone: [facility]-Emergency Department Work Phone: Start: 08-15-2022 End: 08-15-2022 Dr. Carlos Hernández Work Phone: [facility] Work Phone: Start: 08-05-2022 Dr. Fernando cha Work Phone: [facility] Start: 08-02-2022 Dr. Fernando cha Work Phone: [facility] Start: 07-31-2022 Dr. Fernando cha Work Phone: [facility] Start: 07-29-2022 Dr. Fernando cha Work Phone: [facility] Start: 07-26-2022 Dr. Fernando cha Work Phone: [facility]-Patient [facility] Work Phone: Start: 07-25-2022 Dr. Fernando cha Work Phone: [facility] Start: 07-24-2022 Dr. Fernando cha Work Phone: [facility] Start: 07-23-2022 Dr. Fernando cha Work Phone: [facility] Start: 07-23-2022 End: 07-23-2022 Dr. Fernando Kong Work Phone: [facility] Work Phone: Start: 07-22-2022 Dr. Fernando cha Work Phone: [facility] Start: 07-22-2022 Dr. Fernando cha Work Phone: [facility] Start: 07-21-2022 Dr. Fernando cha Work Phone: [facility] Start: 07-20-2022 Dr. Fernando cha Work Phone: [facility] Start: 07-19-2022 Dr. Fernando cha Work Phone: [facility] Start: 07-19-2022 Dr. Fernando cha Work Phone: [facility] Start: 07-18-2022 End: 07-25-2022 Evaluation and management of inpatient Dr. Fernando Kong Work Phone: [facility]-Medical Surgical 3 Start: 07-18-2022 End: 07-25-2022 Dr. Fernando Kong Work Phone: [facility]-Progressive Care Unit Start: 07-17-2022 End: 07-17-[address] Fernando Kong Work Phone: [facility] Work Phone: Start: 07-17-[address] Fernando Kong Work Phone: [facility]-Laboratory Start: 07-17-2022 End: 07-17-2022 Dr. Fernando Kong Work Phone: [facility] Start: 06-24-2022 End: 06-24-[address] Fernando Kong Work Phone: [facility] Start: 06-24-2022 End: 06-24-2022 Dr. Fernando Kogn Work Phone: [facility]Laboratory Start: 06-20-2022 End: 06-20-[address] Fernando Kong Work Phone: [facility] Start: 06-20-2022 End: 06-20-2022 Dr. Fernando Kong Work Phone: [facility] Start: 06-10-2022 End: 06-10-[address] Fernando Kong Work Phone: [facility] Work Phone: Start: 06-10-2022 End: 06-10-[address] Fernando Kong Work Phone: [facility]-Laboratory Start: 06-10-2022 End: 06-10-2022 Dr. Fernando Kong Work Phone: [facility]Laboratory Start: 06-06-2022 End: 06-06-[address] Fernando Kong Work Phone: [facility] Start: 06-06-2022 End: 06-06-2022 Dr. Fernando Kong Work Phone: [facility] Start: 05-30-2022 Non-patient / Non-visit Dr. Fernando Kong Work Phone: [facility] Start: 05-30-2022 Dr. Fernando cha Work Phone: [facility] Start: 05-28-2022 End: 05-28-2022 Emergency department patient visit Dr. Fernando Kong Work Phone: [facility]-Emergency Department Start: 05-28-2022 End: 05-28-2022 Dr. Fernando Kong Work Phone: [facility]-Emergency Department Start: 05-24-2022 Non-patient / Non-visit Dr. Fernando Kong Work Phone: [facility] Start: 05-24-2022 Dr. Fernando cha Work Phone: [facility] Start: 05-24-2022 End: 05-24-2022 Admission to same day surgery center Dr[facility] Fernando Kong [facility] Start: 05-24-2022 End: 05-24-2022 Dr. Fernando Kong [facility] Start: 04-23-2022 End: 04-23-[address] Fernando Kong Work Phone: [facility] Work Phone: Start: 04-23-2022 End: 04-23-[address] Fernando Kong Work Phone: [facility]Laboratory Start: 04-23-2022 End: 04-23-2022 Dr. Fernando Kong [facility] Start: 04-18-2022 End: 04-18-[address] Fernando Kong Work Phone: [facility] Start: 04-18-2022 End: 04-18-2022 Dr. Fernando Kong Work Phone: [facility] Start: 04-15-2022 End: 04-15-[address] Fernando Kong Work Phone: [facility] Start: 04-15-2022 End: 04-15-2022 Dr. Fernando Kong Work Phone: [facility] Start: 02-28-2022 End: 02-28-[address] Fernando Kong Work Phone: [facility] Start: 02-14-2022 End: 02-14-[address] Fernando Kong Work Phone: [facility] Start: 01-28-2022 End: 01-28-[address] Fernando Kong Work Phone: [facility] Start: 01-10-2022 End: 01-10-[address] Fernando Kong Work Phone: [facility] Work Phone: Start: 01-10-2022 End: 01-10-[address] Fernando Kong Work Phone: [facility] Office 3rd Flr Start: 11-30-2021 End: 11-30-[address] Fernando Kong Work Phone: [facility] Start: 11-14-2021 End: 11-14-[address] Fernando Kong Work Phone: [facility] Start: 11-14-2021 End: 11-14-[address] Fernando Kong Work Phone: [facility] Office 3rd Flr Start: 11-12-2021 End: 11-12-[address] Fernando Kong Work Phone: [facility] Start: 10-25-2021 End: 10-25-[address] Fernando Kong Work Phone: [facility] Work Phone: Start: 10-25-2021 End: 10-25-[address] Fernando Kong Work Phone: [facility] Start: 10-09-2021 End: 10-09-[address] Fernando Kong Work Phone: [facility] Start: 10-08-2021 End: 10-08-[address] Fernando Kong Work Phone: [facility] Start: 10-01-2021 End: 10-01-2021 Emergency department patient visit Dr. Fernando Kong Work Phone: [facility]Emer[facility] Start: 09-28-2021 Non-patient / Non-visit Dr. Fernando Kong Work Phone: [facility] Start: 09-28-2021 Non-patient / Non-visit Dr. Fernando Kong Work Phone: [facility] Start: 09-27-2021 Non-patient / Non-visit Dr. Fernando Kong Work Phone: [facility] Start: 09-27-2021 Non-patient / Non-visit Dr. Fernando Kong Work Phone: [facility] Start: 09-26-2021 Non-patient / Non-visit Dr. Fernando Kong Work Phone: [facility] Start: 09-26-2021 Non-patient / Non-visit Dr. Fernando Kong Work Phone: [facility] Start: 09-25-2021 Non-patient / Non-visit Dr. Fernando Kong Work Phone: [facility] Start: 09-24-2021 Non-patient / Non-visit Dr. Fernando Kong Work Phone: [facility] Start: 09-23-2021 Non-patient / Non-visit Dr. Fernando Kong Work Phone: [facility] Start: 09-23-2021 Non-patient / Non-visit Dr. Fernando Kong Work Phone: [facility] Start: 09-22-2021 Non-patient / Non-visit Dr. Fernando Kong Work Phone: [facility] Start: 09-21-2021 End: 09-28-2021 Evaluation and management of inpatient Dr. Fernando Kong Work Phone: [facility] Start: 08-28-2021 End: 08-28-[address] Fernando Kong Work Phone: [facility] Start: 08-20-2021 End: 08-20-[address] [facility] Start: 08-17-2021 End: 08-17-[address] Fernando Kong Work Phone: [facility] Start: 08-01-2021 End: 08-01-2021 Emergency department patient [facility] Start: 07-26-2021 End: 07-26-[address] Fernando Kong Work Phone: [facility] Office 3rd Flr Start: 07-17-2021 End: 07-17-[address] Fernando Kong Work Phone: [facility] Start: 07-17-2021 Non-patient / Non-visit Dr. Fernando Kong Work Phone: [facility] Start: 07-17-2021 End: 07-17-[address] [facility] Start: 07-13-2021 End: 07-13-[address] Fernando Kong Work Phone: [facility] Start: 07-02-2021 End: 07-02-2021 Emergency department patient visit Dr. Fernando Kong Work Phone: [facility] Start: 06-29-2021 End: 06-29-[address] Fernando Kong Work Phone: [facility] Start: 06-27-2021 End: 06-27-[address] Fernando Kong Work Phone: [facility] Start: 06-20-2021 End: 06-20-[address] Fernando Kong Work Phone: [facility] Start: 06-16-2021 End: 06-16-2021 Emergency department patient visit Dr. Fernando Kong Work Phone: [facility] Start: 05-24-2021 End: 05-24-[address] Fernando Kong Work Phone: [facility] Start: 05-24-2021 End: 05-24-[address] Fernando Kong Work Phone: [facility] Start: 04-26-2021 End: 04-26-[address] Fernando Kong Work Phone: [facility] Start: 03-29-2021 End: 03-29-[address] Fernando Kong Work Phone: [facility] Start: 03-13-2021 End: 03-13-[address] Fernando Kong Work Phone: [facility] Start: 02-06-2021 Non-patient / Non-visit Dr. Fernando Kong Work Phone: [facility] Start: 02-05-2021 Non-patient / Non-visit Dr. Fernando Kong Work Phone: [facility] Start: 02-05-2021 Non-patient / Non-visit Dr. Fernando Kong Work Phone: [facility] Start: 02-04-2021 Non-patient / Non-visit Dr. Fernando Kong Work Phone: [facility] Start: 02-03-2021 Non-patient / Non-visit Dr. Fernando Kong Work Phone: [facility] Start: 02-03-2021 End: 02-06-2021 Evaluation and management of inpatient Dr. Fernando Kong Work Phone: [facility] Procedures Date Procedure Procedure Detail Performing Clinician Start: 05-02-2024 Plain chest X-ray Dr. Jose J Lezama DO Work Phone: Start: 05-02-2024 Plain radiography of pelvis Dr. Jose J gaines DO Work Phone: Start: 05-02-2024 Plain x-ray of wrist Dr. Jose J Lezama D O Work Phone: Start: 05-02-2024 CT cervical spine without contrast Dr. Jose J Lezama DO Work Phone: Start: 05-02-2024 CT of head without contrast Dr. Jose J gaines DO Work Phone: Start: 02-18-2023 Plain chest X-ray Dr. Jose J Lezama Work Phone: Start: 02-18-2023 CT of head without contrast Dr. Jose J gaines Work Phone: Start: 02-03-2023 Plain chest X-ray Dr. Jose J Lezama Work Phone: Start: 02-03-2023 CT of head without contrast Dr. Jose J gaines Work Phone: Start: 02-03-[address] Jose J Lezama Work Phone: Start: 02-03-2023 Dr. Jose J Lezama Work Phone: Start: 12-23-[address] Jose J Lezama Work Phone: Start: 12-05-2022 Plain chest X-ray Dr. Jose J Lezama Work Phone: Start: 12-05-2022 CT of head without contrast Dr. Jose J gaines Work Phone: Start: 12-05-[address] Jose J Lezama Work Phone: Start: 12-04-2022 Plain X-ray of shoulder Dr. Jose J soliz Work Phone: Start: 12-04-2022 CT of head without contrast Dr. Jose J gaines Work Phone: Start: 11-30-2022 Dr. Jose J Lezama Work Phone: Start: 11-30-2022 Plain chest X-ray Dr. Jose J Lezama Work Phone: Start: 11-21-[address] Jose J Lezama Work Phone: Start: 11-21-2022 Pulmonary ventilation perfusion study Dr. Jose J Lezama Work Phone: Start: 11-20-2022 Plain chest X-ray Dr. Jose J Lezama Work Phone: Start: 11-01-2022 CT of head without contrast Dr. Jose J gaines Work Phone: Start: 09-13-2022 Plain chest X-ray Dr. Fernando Kong Work Phone: Start: 09-02-2022 Plain x-ray of pelvis and lower extremity Dr. Carlos Hernández Work Phone: Start: 09-02-2022 CT cervical spine without contrast Dr. Carlos Hernández Work Phone: Start: 09-02-2022 CT of chest without contrast Dr. Carlos Hernández Work Phone: Start: 09-02-2022 CT of head without contrast Dr. Carlos dong Work Phone: Start: 07-21-2022 X-ray of both feet Dr. Fernando Kong Work Phone: Start: 07-19-2022 MRI of brain without contrast Dr. Fernando Kong Work Phone: Start: 07-18-2022 Plain chest X-ray Dr. Fernando Kong Work Phone: Start: 07-18-2022 CT of head without contrast Dr. Fernando merino Work Phone: Start: 05-28-2022 Plain chest X-ray Dr. Fernando Kong Work Phone: Start: 10-25-2021 MRI of joint of lower extremity Dr. Fernando Kong Work Phone: Start: 09-24-2021 Radiologic examination of knee Dr. Fernando Kong Work Phone: Start: 09-21-2021 Plain chest X-ray Dr. Fernando Kong Work Phone: Start: 08-01-2021 Plain x-ray of elbow Dr. Fernando Kong Work Phone: Start: 08-01-2021 X-ray of chest posteroanterior view Dr. Fernando Kong Work Phone: Start: 07-17-2021 Cardiovascular stress test using pharmacologic stress agent Dr. Fernando Kong Work Phone: Start: 07-02-2021 Plain x-ray of elbow Dr. Fernando Kong Work Phone: Start: 07-02-2021 Plain x-ray of humerus Dr. Fernando Kong Work Phone: Start: 07-02-2021 CT cervical spine without contrast Dr. Fernando Kong Work Phone: Start: 07-02-2021 CT of head without contrast Dr. Fernando merino Work Phone: Start: 06-16-2021 CT of abdomen and pelvis without contrast Dr. Fernando Kong Work Phone: Start: 06-16-2021 Plain chest X-ray Dr. Fernando Kong Work Phone: Start: 02-03-2021 SARS-CoV-2 Antigen (Rapid) Dr. Fernando aguilar Work Phone: Start: 02-03-2021 CT angiography of chest with contrast Dr. Fernando Kong Work Phone: Start: 02-03-2021 Plain chest X-ray Dr. 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 Fernando Kong Work Phone: Plan of Treatment Date Care Activity Detail Author Start: 05-03-[address] [facility] Start: 05-02-2024 Following clinical p athway protocol [facility] Start: 05-02-2024 Application of inter mittent pneumatic compression device [facility] Start: 05-02-2024 Ambulation without limitation [facility] Start: 05-02-2024 Assessment of risk o f venous thromboembolism [facility] Start: 05-02-2024 Care regimes management [facility] Start: 05-02-2024 Inhalation therapy procedure [facility] Start: 05-02-2024 Insertion of cathete r into peripheral vein [facility] Start: 05-02-2024 Measuring intake and output [facility] Start: 05-02-2024 Notification of physician [facility] Start: 05-02-2024 Providing care accor ding to standard [facility] Start: 05-02-2024 Referral to service [facility] Start: 05-02-2024 End: 05-02-2024 [facility] Start: 05-02-2024 Verification routine [facility] Start: 05-02-2024 Admission procedure [facility] Start: 05-02-2024 Hospital admission, emergency, from emergency room, medical nature [facility] Start: 02-22-2023 Blood chemistry [facility] Start: 02-21-[address] [facility] Start: 02-19-2023 Oxygen therapy [facility] Start: 02-18-2023 Following clinical p athway protocol [facility] Start: 02-18-2023 Assessment of risk o f venous thromboembolism [facility] Start: 02-18-2023 Care regimes management [facility] Start: 02-18-2023 Fall prevention [facility] Start: 02-18-2023 Insertion of cathete r into peripheral vein [facility] Start: 02-18-2023 Notification of physician [facility] Start: 02-18-2023 Providing care accor ding to [facility] Start: 02-18-2023 Provision of activity privileges [facility] Start: 02-18-2023 Referral to occupati onal therapist [facility] Start: 02-18-2023 Referral to service [facility] Start: 02-18-2023 [facility] Start: 02-18-2023 Admission procedure [facility] Start: 02-18-2023 Patient referral to dietitian [facility] Start: 02-07-[address] [facility] Start: 02-04-2023 [facility] Start: 02-03-2023 Following clinical p athway protocol [facility] Start: 02-03-2023 Ambulation without limitation [facility] Start: 02-03-2023 Assessment of risk o f venous thromboembolism [facility] Start: 02-03-2023 Care regimes management [facility] Start: 02-03-2023 Insertion of cathete r into peripheral vein [facility] Start: 02-03-2023 Notification of physician [facility] Start: 02-03-2023 Providing care accor ding to [facility] Start: 02-03-2023 Referral to occupati onal therapist [facility] Start: 02-03-2023 Referral to service [facility] Start: 02-03-2023 [facility] Start: 02-03-2023 End: 02-03-2023 [facility] Start: 12-09-2022 Prothrombin time [facility] Start: 12-08-2022 Prothrombin time [facility] Start: 12-07-[address] [facility] Start: 12-06-2022 Speech therapy assessment [facility] Start: 12-06-2022 Vitamin D, 1,25-dihy droxy measurement [facility] Start: 12-05-2022 End: 12-05-2022 Following clinical pathway protocol [facility] Start: 12-05-2022 Assessment of risk o f venous thromboembolism [facility] Start: 12-05-2022 Care regimes management [facility] Start: 12-05-2022 Catheterization of vein [facility] Start: 12-05-2022 Insertion of cathete r into peripheral vein [facility] Start: 12-05-2022 Notification of physician [facility] Start: 12-05-2022 Oxygen therapy [facility] Start: 12-05-2022 Patient referral to dietitian [facility] Start: 12-05-2022 Providing care accor ding to [facility] Start: 12-05-2022 Provision of activity privileges [facility] Start: 12-05-2022 Referral to occupati onal therapist [facility] Start: 12-05-2022 Referral to service [facility] Start: 12-05-2022 [facility] Start: 12-05-2022 Verification routine [facility] [place] Start: 12-05-2022 Admission procedure [facility] Start: 12-05-2022 Hospital admission, emergency, from emergency room, medical nature [facility] Start: 12-05-2022 [facility] Start: 12-05-2022 End: 12-06-2022 [facility] Start: 12-04-2022 Simple repair scalp/neck/ax/genit/trunk 2.5cm/< [facility] Start: 12-04-2022 [facility] Start: 11-21-[address] [facility] Start: 11-21-2022 [facility] Start: 11-20-2022 Ambulation without limitation [facility] Start: 11-20-2022 Assessment of risk o f venous thromboembolism [facility] Start: 11-20-2022 Care regimes management [facility] Start: 11-20-2022 Incentive spirometry [facility] [place] Start: 11-20-2022 Insertion of cathete r into peripheral vein [facility] Start: 11-20-2022 Measuring intake and output [facility] Start: 11-20-2022 Notification of physician [facility] Start: 11-20-2022 Providing care accor ding to [facility] Start: 11-20-2022 Referral to service [facility] Start: 11-20-2022 [facility] Start: 11-20-2022 End: 11-20-2022 Following clinical pathway protocol [facility] Start: 11-20-2022 Admission procedure [facility] Start: 07-25-[address] [facility] Start: 07-22-2022 Referral to occupati onal therapist [facility] Start: 07-22-2022 Referral to service [facility] Start: 07-18-2022 End: 07-19-2022 [facility] Start: 07-18-2022 Oxygen therapy [facility] Start: 07-18-2022 Following clinical p athway protocol [facility] Start: 07-18-2022 Care regimes management [facility] Start: 07-18-2022 Notification of physician [facility] Start: 07-18-2022 Admission procedure [facility] Start: 05-28-2022 [facility] Start: 05-24-2022 Anes open/surg arthr oscopic proc knee joint nos [facility] Start: 05-24-2022 Arthroscopy knee rem oval loose/foreign body [facility] Start: 05-24-2022 Arthrs kne surg w/me niscectomy med/lat w/shvg [facility] Start: 05-24-[address] [facility] Start: 05-24-2022 Application of ice c ollar, cap or bag [facility] Start: 05-24-2022 Catheterization of vein [facility] Start: 05-24-2022 Elevation of affected extremity [facility] Start: 05-24-2022 Following clinical p athway protocol [facility] Start: 05-24-2022 Procedure discontinued [facility] Start: 05-24-2022 Taking patient vital signs [facility] Start: 05-24-2022 Vital signs measurements [facility] Start: 05-24-2022 [facility] Start: 05-24-2022 Medication education [facility] [place] Start: 10-25-2021 Venous catheter care management [facility] Work Phone: Start: 09-28-[address] [facility] Work Phone: Start: 09-28-2021 Referral to service [facility] Work Phone: Start: 09-27-2021 [facility] Work Phone: Start: 09-25-2021 [facility] Work Phone: Start: 09-24-2021 Following clinical p athway protocol [facility] Work Phone: Start: 09-24-2021 Referral to service [facility] Work Phone: Start: 09-23-2021 [facility] Work Phone: Start: 09-22-2021 Referral to rn case mgr [facility] Work Phone: Start: 09-22-2021 Continuous pulse oximetry [facility] Work Phone: Start: 09-22-2021 Following clinical p athway protocol [facility] Work Phone: Start: 09-22-2021 Blood chemistry [facility] Work Phone: Start: 09-22-2021 Troponin I measurement [facility] Work Phone: Start: 09-22-2021 Dual pressure sponta neous ventilation support [facility] Work Phone: Start: 09-21-2021 Ambulation without limitation [facility] Work Phone: Start: 09-21-2021 Application of elastic bandage [facility] Work Phone: Start: 09-21-2021 Assessment of risk o f venous thromboembolism [facility] Work Phone: Start: 09-21-2021 Care regimes management [facility] Work Phone: Start: 09-21-2021 Elevation of affected extremity [facility] Work Phone: Start: 09-21-2021 Incentive spirometry [facility] [place] Work Phone: Start: 09-21-2021 Insertion of cathete r into peripheral vein [facility] Work Phone: Start: 09-21-2021 Measuring intake and output [facility] Work Phone: Start: 09-21-2021 Notification of physician [facility] Work Phone: Start: 09-21-2021 Oxygen therapy [facility] Work Phone: Start: 09-21-[address] [facility] Work Phone: Start: 09-21-2021 Providing care accor ding to standard [facility] Work Phone: Start: 09-21-2021 Referral to occupati onal therapist [facility] Work Phone: Start: 09-21-2021 Referral to service [facility] Work Phone: Start: 09-21-2021 End: 09-21-2021 [facility] Work Phone: Start: 09-21-2021 Troponin I measurement [facility] Work Phone: Start: 09-21-2021 Verification routine [facility] [place] Work Phone: Start: 09-21-2021 Admission procedure [facility] Work Phone: Start: 09-21-2021 Patient referral to dietitian [facility] Work Phone: Anion gap measurement [facility] Work Phone: Basic metabolic 2008 panel with ionized calcium - Serum or Plasma [facility] Basic metabolic 2008 panel with ionized calcium - Serum or Plasma [facility] Brain natriuretic pe ptide measurement [facility] BUN/Creatinine ratio [facility] Work Phone: Calcium [Mass/volume ] in Serum or Plasma [facility] Work Phone: Carbon dioxide, tota l [Moles/volume] in Serum or Plasma [facility] Work Phone: CBC W Auto Different ial panel - Blood [facility] Chloride [Moles/volu me] in Serum or Plasma [facility] Work Phone: Cholesterol [Mass/vo lume] in Serum or Plasma [facility] Work Phone: Cholesterol in HDL [ Mass/volume] in Serum or Plasma [facility] Work Phone: Cholesterol in LDL [ Mass/volume] in Serum or Plasma [facility] Work Phone: Comprehensive metabo lic 2000 panel - Serum or Plasma [facility] Creatinine [Moles/vo lume] in Serum or Plasma [facility] Work Phone: Glucose [Mass/volume ] in Serum or Plasma [facility] Work Phone: Hematocrit [Volume F raction] of Blood [facility] Work Phone: Hemoglobin [Mass/volume] in Blood [facility] Work Phone: Leukocytes [#/volume] in Blood [facility] Work Phone: Lipid 1996 panel - S sonam or Plasma [facility] Magnesium [Mass/volu me] in Serum or Plasma [facility] Work Phone: Mean corpuscular hem oglobin concentration determination [facility] Work Phone: Mean corpuscular hem oglobin determination [facility] Work Phone: Measurement of renal function [facility] Work Phone: Neutrophil count [facility] Work Phone: Neutrophil cytoplasm ic Ab.classic [Units/volume] in Serum [facility] Neutrophil percent d ifferential count [facility] Work Phone: P-ANCA measurement [facility] Patient Education [facility] [facility] Work Phone: Patient referral [facility] Work Phone: Platelets [#/volume] in Blood [facility] Work Phone: Potassium [Moles/vol ume] in Serum or Plasma [facility] Work Phone: Red blood cell count [facility] Work Phone: Red cell distributio n width determination [facility] Work Phone: Sodium [Moles/volume ] in Serum or Plasma [facility] Work Phone: T4 free measurement [facility] Thyroid stimulating hormone measurement [facility] Triglycerides measurement [facility] Work Phone: Troponin I measurement [facility] Work Phone: Urea nitrogen [Mass/ volume] in Serum or Plasma [facility] Work Phone: Urine blood test [facility] Urine microalbumin/c reatinine ratio measurement [facility] Vitamin D, 25-hydroxy measurement [facility] VLDL cholesterol measurement [facility] Work Phone: [facility] Immunizations Immunization Date Immunization Notes Care Provider [facility] 05-02-2024 tetanus toxoid, redu araseli diphtheria toxoid, and acellular pertussis vaccine, adsorbed Dr. Jose J Lezama DO Work Phone: [facility] 12-06-2022 Influenza High-Dose Quadrivalent Dr. Jose J Lezama Work Phone: [facility] 11-29-2022 influenza, injectabl e, quadrivalent, preservative free Dr. Jose J Lezama Work Phone: [facility] 11-23-2021 influenza, injectabl e, quadrivalent, preservative free Dr. Jose J Lezama Work Phone: [facility] 05-31-2021 Covid (Moderna) Dr. Jose J gaines Work Phone: [facility] 01-16-2021 Covid (Moderna) Dr. Fernando merino Work Phone: [facility] 12-28-2020 Covid (Moderna) Dr. Jose J gaines Work Phone: [facility] 11-10-2020 influenza, injectabl e, quadrivalent, preservative free Dr. Jose J Lezama Work Phone: [facility] 11-10-2020 influenza, seasonal, injectable Dr. Fernando Kong Work Phone: [facility] 08-01-2020 Covid (Moderna) Dr. Fernando merino Work Phone: [facility] 07-11-2020 Covid (Moderna) Dr. Fernando merino Work Phone: [facility] 04-06-2020 Covid (Moderna) Dr. Jose J gaines Work Phone: [facility] 03-09-2020 Covid (Moderna) Dr. Jose J gaines Work Phone: [facility] 11-10-2019 influenza, injectabl e, quadrivalent, preservative free Dr. Jose J Lezama Work Phone: [facility] 11-10-2019 influenza, seasonal, injectable Dr. Fernando Kong Work Phone: [facility] 11-10-2019 Seasonal, quadrivale nt, recombinant, injectable influenza vaccine, preservative free Dr. Joes J Lezama Work Phone: [facility] 11-10-2019 Fluad Quad (65yr up)(PF) 60 mcg (15 mcg x 4)/0.5mL IM syringe (flu vac Dr. Fernando Kong Work Phone: [facility] Work Phone: 12-09-[address] Fernando Kong Work Phone: [facility] 11-19-2017 Influenza, high dose seasonal Dr. Jose J Lezama DO Work Phone: [facility] 11-19-2017 influenza, high dose seasonal, preservative-free Dr. Jose J Lezama Work Phone: [facility] 11-25-[address] Fernando Kong Work Phone: [facility] 11-30-[address] Fernando Kong Work Phone: [facility] 12-12-[address] Fernando Kong Work Phone: [facility] 11-16-2014 Influenza, high dose seasonal Dr. Jose J Lezama DO Work Phone: [facility] 11-16-2014 influenza, high dose seasonal, preservative-free Dr. Jose J Lezama Work Phone: [facility] 11-16-2014 pneumococcal conjuga te vaccine, [address] Jose J Lezama Work Phone: [facility] 11-10-2013 influenza, injectabl e, quadrivalent, preservative free Dr. Jose J Lezama Work Phone: [facility] 11-10-[address] Fernando Kong Work Phone: [facility] 11-11-[address] Vijay Kong Work Phone: [facility] Work Phone: 11-11-2011 pneumococcal vaccine , unspecified formulation Dr. Fernando Kong Work Phone: [facility] 10-24-2008 influenza, injectabl e, quadrivalent, preservative free Dr. Jose J Lezama Work Phone: [facility] Payers Date Payer Category Payer Self-pay [id number] 2023 Unknown [id number] 2016 Unknown [id number] Private Health Insurance [id number] Unknown [id number] Unknown [id number] 2.16.8 [id number] Unknown [id number] 2.16.8 [id number] Unknown [id number] 2.16.8 [id number] Unknown [id number] 2.16.8 [id number] Unknown [id number] 2.16.8 [id number] Unknown [id number] 2.16.8 [id number] Unknown [id number] 2.16.8 [id number] Unknown [id number] 2.16.8 [id number] Unknown [id number] 2.16.8 [id number] Unknown [id number] 2.16.8 [id number] Unknown [id number] 2.16.8 [id number] Unknown [id number] 2.16.8 [id number] Unknown [id number] 2.16.8 [id number] Unknown [id number] 2.16.8 [id number] Unknown [id number] 2.16.8 [id number] Unknown [id number] 2.16.8 [id number] Unknown [id number] 2.16.8 [id number] Social History Date Type Detail Facility Start: 05-24-2021 End: 02-18-2023 Tobacco smoking status NHIS Unknown if ever smoked [facility] Start: 06-09-2020 None [facility] Start: 06-09-2020 Homeless [facility] Start: 06-14-2020 Non-smoker [facility] Start: 1935 Sex Assigned At Female [facility] Start: 05-02-2024 Tobacco smoking status NHIS Never smoked tobacco (finding) [facility] Start: 05-02-2024 End: 05-03-2024 Sex Female (finding) [facility] NEGATED: Highlighted row [facility] Medical Equipment Procedure Code Equipment Code Equipment Origin al Text Equipment Identifier Dates INJEX BI-WING ANCHOR FDA Star t: 04-28-2017 TRIAL LEAD FDA Start: 04-28-2017 WIRELESS EXTERNA L NEUROSTIMLTR FDA Start: 04-28-2017 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 FDA Sta rt: 06-16-2017 INTELLIS ASAPTIV E STIM PERMANT FDA Start: 06-16-2017 LEAD KIT FDA Start: 06-16-2017 LEAD KIT FDA Start: 06-16-2017 INJEX BI-WING ANCHOR FDA Star t: 04-28-2017 TRIAL LEAD FDA Start: 04-28-2017 WIRELESS EXTERNA L NEUROSTIMLTR FDA Start: 04-28-2017 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 FDA Sta rt: 06-16-2017 INTELLIS ASAPTIV E STIM PERMANT FDA Start: 06-16-2017 LEAD KIT FDA Start: 06-16-2017 LEAD KIT FDA Start: 06-16-2017 INJEX BI-WING ANCHOR FDA Star t: 04-28-2017 TRIAL LEAD FDA Start: 04-28-2017 WIRELESS EXTERNA L NEUROSTIMLTR FDA Start: 04-28-2017 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 FDA Sta rt: 06-16-2017 INTELLIS ASAPTIV E STIM PERMANT FDA Start: 06-16-2017 LEAD KIT FDA Start: 06-16-2017 LEAD KIT FDA Start: 06-16-2017 INJEX BI-WING ANCHOR FDA Star t: 04-28-2017 TRIAL LEAD FDA Start: 04-28-2017 WIRELESS EXTERNA L NEUROSTIMLTR FDA Start: 04-28-2017 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 FDA Sta rt: 06-16-2017 INTELLIS ASAPTIV E STIM PERMANT FDA Start: 06-16-2017 LEAD KIT FDA Start: 06-16-2017 LEAD KIT FDA Start: 06-16-2017 INJEX BI-WING ANCHOR FDA Star t: 04-28-2017 TRIAL LEAD FDA Start: 04-28-2017 WIRELESS EXTERNA L NEUROSTIMLTR FDA Start: 04-28-2017 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 FDA Sta rt: 06-16-2017 INTELLIS ASAPTIV E STIM PERMANT FDA Start: 06-16-2017 LEAD KIT FDA Start: 06-16-2017 LEAD KIT FDA Start: 06-16-2017 INJEX BI-WING ANCHOR FDA Star t: 04-28-2017 TRIAL LEAD FDA Start: 04-28-2017 WIRELESS EXTERNA L NEUROSTIMLTR FDA Start: 04-28-2017 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 FDA Sta rt: 06-16-2017 INTELLIS ASAPTIV E STIM PERMANT FDA Start: 06-16-2017 LEAD KIT FDA Start: 06-16-2017 LEAD KIT FDA Start: 06-16-2017 INJEX BI-WING ANCHOR FDA Star t: 04-28-2017 TRIAL LEAD FDA Start: 04-28-2017 WIRELESS EXTERNA L NEUROSTIMLTR FDA Start: 04-28-2017 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 FDA Sta rt: 06-16-2017 INTELLIS ASAPTIV E STIM PERMANT FDA Start: 06-16-2017 LEAD KIT FDA Start: 06-16-2017 LEAD KIT FDA Start: 06-16-2017 INJEX BI-WING ANCHOR FDA Star t: 04-28-2017 TRIAL LEAD FDA Start: 04-28-2017 WIRELESS EXTERNA L NEUROSTIMLTR FDA Start: 04-28-2017 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 FDA Sta rt: 06-16-2017 INTELLIS ASAPTIV E STIM PERMANT FDA Start: 06-16-2017 LEAD KIT FDA Start: 06-16-2017 LEAD KIT FDA Start: 06-16-2017 INJEX BI-WING ANCHOR FDA Star t: 04-28-2017 TRIAL LEAD FDA Start: 04-28-2017 WIRELESS EXTERNA L NEUROSTIMLTR FDA Start: 04-28-2017 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 FDA Sta rt: 06-16-2017 INTELLIS ASAPTIV E STIM PERMANT FDA Start: 06-16-2017 LEAD KIT FDA Start: 06-16-2017 LEAD KIT FDA Start: 06-16-2017 INJEX BI-WING ANCHOR FDA Star t: 04-28-2017 TRIAL LEAD FDA Start: 04-28-2017 WIRELESS EXTERNA L NEUROSTIMLTR FDA Start: 04-28-2017 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 FDA Sta rt: 06-16-2017 INTELLIS ASAPTIV E STIM PERMANT FDA Start: 06-16-2017 LEAD KIT FDA Start: 06-16-2017 LEAD KIT FDA Start: 06-16-2017 INJEX BI-WING ANCHOR FDA Star t: 04-28-2017 TRIAL LEAD FDA Start: 04-28-2017 WIRELESS EXTERNA L NEUROSTIMLTR FDA Start: 04-28-2017 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 FDA Sta rt: 06-16-2017 INTELLIS ASAPTIV E STIM PERMANT FDA Start: 06-16-2017 LEAD KIT FDA Start: 06-16-2017 LEAD KIT FDA Start: 06-16-2017 INJEX BI-WING ANCHOR FDA Star t: 04-28-2017 TRIAL LEAD FDA Start: 04-28-2017 WIRELESS EXTERNA L NEUROSTIMLTR FDA Start: 04-28-2017 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 FDA Sta rt: 06-16-2017 INTELLIS ASAPTIV E STIM PERMANT FDA Start: 06-16-2017 LEAD KIT FDA Start: 06-16-2017 LEAD KIT FDA Start: 06-16-2017 INJEX BI-WING ANCHOR FDA Star t: 04-28-2017 TRIAL LEAD FDA Start: 04-28-2017 WIRELESS EXTERNA L NEUROSTIMLTR FDA Start: 04-28-2017 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 FDA Sta rt: 06-16-2017 INTELLIS ASAPTIV E STIM PERMANT FDA Start: 06-16-2017 LEAD KIT FDA Start: 06-16-2017 LEAD KIT FDA Start: 06-16-2017 INJEX BI-WING ANCHOR FDA Star t: 04-28-2017 TRIAL LEAD FDA Start: 04-28-2017 WIRELESS EXTERNA L NEUROSTIMLTR FDA Start: 04-28-2017 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 FDA Sta rt: 06-16-2017 INTELLIS ASAPTIV E STIM PERMANT FDA Start: 06-16-2017 LEAD KIT FDA Start: 06-16-2017 LEAD KIT FDA Start: 06-16-2017 INJEX BI-WING ANCHOR FDA Star t: 04-28-2017 TRIAL LEAD FDA Start: 04-28-2017 WIRELESS EXTERNA L NEUROSTIMLTR FDA Start: 04-28-2017 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 FDA Sta rt: 06-16-2017 INTELLIS ASAPTIV E STIM PERMANT FDA Start: 06-16-2017 LEAD KIT FDA Start: 06-16-2017 LEAD KIT FDA Start: 06-16-2017 INJEX BI-WING ANCHOR FDA Star t: 04-28-2017 TRIAL LEAD FDA Start: 04-28-2017 WIRELESS EXTERNA L NEUROSTIMLTR FDA Start: 04-28-2017 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 FDA Sta rt: 06-16-2017 INTELLIS ASAPTIV E STIM PERMANT FDA Start: 06-16-2017 LEAD KIT FDA Start: 06-16-2017 LEAD KIT FDA Start: 06-16-2017 INJEX BI-WING ANCHOR FDA Star t: 04-28-2017 TRIAL LEAD FDA Start: 04-28-2017 WIRELESS EXTERNA L NEUROSTIMLTR FDA Start: 04-28-2017 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 FDA Sta rt: 06-16-2017 INTELLIS ASAPTIV E STIM PERMANT FDA Start: 06-16-2017 LEAD KIT FDA Start: 06-16-2017 LEAD KIT FDA Start: 06-16-2017 FDA Start: 04-28-2017 FDA Start: 04-28-2017 FDA Start: 04-28-2017 FDA Start: 06-16-2017 FDA Start: 06-16-2017 FDA Start: 06-16-2017 FDA Start: 06-16-2017 FDA Start: 04-28-2017 FDA Start: 04-28-2017 FDA Start: 04-28-2017 FDA Start: 06-16-2017 FDA Start: 06-16-2017 FDA Start: 06-16-2017 FDA Start: 06-16-2017 FDA Start: 04-28-2017 FDA Start: 04-28-2017 FDA Start: 04-28-2017 FDA Start: 06-16-2017 FDA Start: 06-16-2017 FDA Start: 06-16-2017 FDA Start: 06-16-2017 FDA Start: 04-28-2017 FDA Start: 04-28-2017 FDA Start: 04-28-2017 FDA Start: 06-16-2017 FDA Start: 06-16-2017 FDA Start: 06-16-2017 FDA Start: 06-16-2017 FDA Start: 04-28-2017 FDA Start: 04-28-2017 FDA Start: 04-28-2017 FDA Start: 06-16-2017 FDA Start: 06-16-2017 FDA Start: 06-16-2017 FDA Start: 06-16-2017 FDA Start: 04-28-2017 FDA Start: 04-28-2017 FDA Start: 04-28-2017 FDA Start: 06-16-2017 FDA Start: 06-16-2017 FDA Start: 06-16-2017 FDA Start: 06-16-2017 FDA Start: 04-28-2017 FDA Start: 04-28-2017 FDA Start: 04-28-2017 FDA Start: 06-16-2017 FDA Start: 06-16-2017 FDA Start: 06-16-2017 FDA Start: 06-16-2017 FDA Start: 04-28-2017 FDA Start: 04-28-2017 FDA Start: 04-28-2017 FDA Start: 06-16-2017 FDA Start: 06-16-2017 FDA Start: 06-16-2017 FDA Start: 06-16-2017 FDA Start: 04-28-2017 FDA Start: 04-28-2017 FDA Start: 04-28-2017 FDA Start: 06-16-2017 FDA Start: 06-16-2017 FDA Start: 06-16-2017 FDA Start: 06-16-2017 FDA Start: 04-28-2017 FDA Start: 04-28-2017 FDA Start: 04-28-2017 FDA Start: 06-16-2017 FDA Start: 06-16-2017 FDA Start: 06-16-2017 FDA Start: 06-16-2017 FDA Start: 04-28-2017 FDA Start: 04-28-2017 FDA Start: 04-28-2017 FDA Start: 06-16-2017 FDA Start: 06-16-2017 FDA Start: 06-16-2017 FDA Start: 06-16-2017 FDA Start: 04-28-2017 FDA Start: 04-28-2017 FDA Start: 04-28-2017 FDA Start: 06-16-2017 FDA Start: 06-16-2017 FDA Start: 06-16-2017 FDA Start: 06-16-2017 FDA Start: 04-28-2017 FDA Start: 04-28-2017 FDA Start: 04-28-2017 FDA Start: 06-16-2017 FDA Start: 06-16-2017 FDA Start: 06-16-2017 FDA Start: 06-16-2017 FDA Start: 04-28-2017 FDA Start: 04-28-2017 FDA Start: 04-28-2017 FDA Start: 06-16-2017 FDA Start: 06-16-2017 FDA Start: 06-16-2017 FDA Start: 06-16-2017 Goals Date Patient Goal Desired Activity /State Functional Status Date Assessment Result Facility 05-03-2024 Functional status Ambulates [facility] Work Phone: 02-21-2023 Functional status With Assist of 1 [facility] Work Phone: 02-07-2023 Functional status Ambulates [facility] Work Phone: 12-07-2022 Functional status Ambulates [facility] Work Phone: 11-21-2022 Functional status Bathroom Privilege [facility] Work Phone: 07-25-2022 Functional status Unable to Assess [facility] Work Phone: 07-25-2022 Functional status Ambulates [facility] Work Phone: 09-28-2021 Functional status Ambulates [facility] Work Phone: 02-06-2021 Functional status Up ad shagufta;Bathroom Priv ilege [facility] Work Phone: 02-05-2021 Functional status None [facility] Work Phone: Mental Status Date Assessment Result Facility 05-03-2024 Cognitive function Voice/Name [facility] Work Phone: 02-21-2023 Cognitive function Voice/Name [facility] Work Phone: 02-21-2023 Cognitive function Appropriate;Cooperativ e [facility] Work Phone: 02-07-2023 Cognitive function Voice/Name [facility] Work Phone: 12-07-2022 Cognitive function Voice/Name [facility] Work Phone: 11-30-2022 Cognitive function Awake;Alert;Appropriat e [facility] Work Phone: 11-21-2022 Cognitive function Voice/Name [facility] Work Phone: 07-25-2022 Cognitive function Voice/Name [facility] Work Phone: 05-28-2022 Cognitive function Awake;Alert;A ppropriate;Follow s Commands [facility] Work Phone: 05-24-2022 Cognitive function Voice/Name [facility] Work Phone: 10-01-2021 Cognitive function Level Of Cons ciousness Awake;Alert;Appropriate [facility] Work Phone: 09-28-2021 Cognitive function Voice/Name [facility] Work Phone: 02-06-2021 Cognitive function Voice/Name [facility] Work Phone: Clinical Notes 03-13-2016 to 05-03-2024 Note Date & Type Note Facility 05-03-2024 Discharge summary Note Date/Time May 03, 2024 7:38am [facility] Medical Records Department [address] [place] [id number] Transfer to [facility] MR#: [id number] Acct: [id number] Name: GLORIA PAUL Rep #:[id number] From: Bernardino diez MD PCP: Dr. Jose J Lezama, DO Status:ADM FIDEL Certification of patient admission REQUIRED AT TIME OF ADMISSION. I CERTIFY THAT [facility] ARE REQUIRED TO BE GIVEN ON AN IN-PATIENT BASIS BECAUSE OF THE ABOVE NAMED PATIENT'S NEED FOR [facility] CARE ON A CONTINUING BASIS FOR THE CONDITION(S) FOR WHICH HE/SHE WAS RECEIVING IN-PATIENT HOSPITAL SERVICES PRIOR TO HIS/HER TRANSFER TO THE [facility]. 05/03/24 0738<Electronically signed by Bernardino Briceno MD> Diet Diet Order/Speech Therapy: 05/02/24 13:21 Diet: Cardiac - Heart Healthy Food consistency:: Regular Liquid Consistency:: Regular/Thin Routine Orders/Code Status Routine Lab Work: CBC and BMP Code Status: DNRCC-A DC O2, CPAP, BIPAP needs Home O2 Discharge instructions: No Wound(s) Right eyebrow: Wound Type: Laceration Left Forearm: Wound Type: Skin Tear Therapies Physical Therapy: Eval and Treat Occupational Therapy: Eval and Treat Problem/Diagnosis (1) Orthostatic hypotension: Status: Acute Code(s): I95.1 - Orthostatic hypotension (2) Laceration of head: Status: Acute Code(s): S01.91XA - Laceration without foreign body of unspecified part of head, initial encounter (3) Syncope: Status: Acute Code(s): R55 - Syncope and collapse Plan 1. Orthostatic hypotension leading to fall with a forehead laceration and ecchymosis over the right eyelid ? She frequently gets dizzy and does appear to be orthostatic in origin ? She is severely hypertensive at baseline is on multiple medications ? Systolic blood pressure went from 199 laying down to 178 on standing consistent with orthostatic hypotension ? She is on meclizine as an outpatient ? Given the intensity of her blood pressure I do not think that I can discontinue any of her home blood pressure medications ? She is on memantine and oxybutynin both of which can cause lightheadedness anddizziness I discussed with family that this is to be discontinued and evaluated at the [facility] 2. Essential HTN/HLD/CAD status post CABG and stent/paroxysmal A-fib ? No anticoagulation given that she is a fall risk ? Will hold her aspirin for 24 hours ? Can resume her home blood pressure medications and her home cholesterol ? Will monitor make adjustments as necessary ? Hold her Lasix given the need for some gentle IV fluids for her orthostatic hypotension 3. DM2 ? Continue with Jardiance ? Hold Ozempic ? Continue with insulin, Accu-Cheks ACHS ? Will monitor make adjustments as necessary 5. Hypothyroidism ? Stable ? Continue with Synthroid 6. Anxiety/depression/dementia ? Hold memantine ? Continue with her other home medications 7. Urinary incontinence ? Will hold oxybutynin given her age and her frequent falls DVT: SCDs 75 minutes was spent on direct patient care, including documentation as well as chart review and collaboration with colleagues Allergies/Procedures Done in Hospital Allergies morphine Allergy (Intermediate, Verified 04/01/24 15:04) Low blood pressure latex Allergy (Verified 04/01/24 15:04) Rash adhesive tape Adverse Reaction (Verified 04/01/24 15:04) Rash ticagrelor (From Brilinta) Adverse Reaction (Verified 04/01/24 15:04) Shortness of breath Procedures: None Type of Care/Length of Stay Estimated LOS: Convalescent Care Less Than 30 days Type of Care Needed: Skilled Rehab Potential: Fair Prognosis: Fair Additional Orders/Day of Discharge Day of Discharge: 05/03/24 Discharge Plan Admission Admit Date/Time: 05/02/24 11:58 Attending Provider: Bernardino Briceno Primary Care Provider: Jose J Lezama Discharge Orders/Prescriptions Prescriptions: Continued cholecalciferol (vitamin D3) [Vitamin D3] 25 mcg (1,000 unit) capsule 25 mcg PO DAILY levothyroxine 50 mcg tablet 50 mcg PO DAILY lidocaine [Lidocaine Pain Relief] 4 % adhesive patch,medicated 1 patch topical DAILY meclizine 12.5 mg tablet 12.5 mg PO Q4H PRN (Reason: dizziness) insulin lispro 100 unit/mL insulin pen 18 unit SUBCUT TID Patient Comments: at meals mineral oil [Fleet Mineral Oil] Enema 118 ml TX DAILY PRN (Reason: constipation) Rx Instructions: discard any unused portion magnesium hydroxide [Milk of Magnesia] 400 mg/5 mL suspension 30 ml PO DAILY PRN (Reason: constipation) bisacodyl 10 mg suppository 10 mg TX DAILY PRN (Reason: constipation) Biofreeze (menthol) 4 % gel 1 applic topical DAILY PRN (Reason: pain) Patient Comments: APPLY TO RIGHT SHOULDER insulin glargine [Lantus Solostar U-100 Insulin] 100 unit/mL (3 mL) insulin pen 28 unit subcut QHS loratadine 10 mg tablet 10 mg PO DAILY PRN (Reason: allergy symptoms) Ozempic 0.25 mg or 0.5 mg (2 mg/3 mL) pen injector 0.25 mg subcut QWEEK Qty: 3 3RF Patient Comments: TAKE ON MONDAYS Jardiance 25 mg tablet 25 mg PO QAM Qty: 30 5RF duloxetine 60 mg capsule,delayed release(DR/EC) 60 mg PO DAILY benzonatate 100 mg capsule 100 mg PO Q8H PRN (Reason: cough) dextran 70-hypromellose 0.1-0.3 % drops 1 drp ophthalmic (eye) Q8H PRN (Reason: dry eye(s)) albuterol sulfate 2.5 mg /3 mL (0.083 %) solution for nebulization 2.5 mg inhalation Q6H PRN (Reason: bronchospasm) isosorbide mononitrate 60 mg tablet extended release 24 hr 60 mg PO BID aspirin [Adult Aspirin Regimen] 81 mg tablet,delayed release (DR/EC) 81 mg PO DAILY gabapentin 300 mg capsule 300 mg PO TID Qty: 90 0RF ranolazine 500 mg tablet extended release 12 hr 500 mg PO Q12H gabapentin 100 mg capsule 100 mg PO QHS guaifenesin 600 mg tablet extended release 12hr 600 mg PO Q12H PRN (Reason: congestion) insulin lispro [Humalog U-100 Insulin] 100 unit/mL solution See Protocol subcut .COMPLEX Protocol: 6. Sliding Scale Insulin Custom Condition: mg/dl range Dose/Route: Number of Units Condition: 200-249 Dose/Route: 2 UNITS Condition: 250-299 Dose/Route: 3 UNITS Condition: 300-349 Dose/Route: 4 UNITS Condition: 350-400 Dose/Route: 6 UNITS Protocol Text: Custom Sliding Scale Rx Instructions: subcutaneously PER SLIDING SCALE; hydralazine 100 mg tablet 50 mg PO TID furosemide [Lasix] 20 mg tablet 20 mg PO DAILY trazodone 50 mg tablet 125 mg PO .HS acetaminophen 500 mg capsule 1,000 mg PO Q8 atorvastatin 40 mg tablet 40 mg PO QHS Qty: 90 3RF nitroglycerin 0.4 mg tablet, sublingual 0.4 mg SUBLINGUAL Q5M PRN (Reason: chest pain) Qty: 25 3RF Rx Instructions: do not exceed 3 doses per episode (DME) FreeStyle Jong 2 [facility] See Rx Instructions .Route Qty: 1 0RF Rx Instructions: As directed Held memantine 5 mg tablet 10 mg PO BID Hold Instructions: Resume on 05/12/24. oxybutynin chloride 5 mg tablet extended release 24hr 5 mg PO DAILY Hold Instructions: Resume on 05/12/24. Referrals / Follow Up: Jose J Lezama DO [Primary Care Provider] - Disposition Disposition (needs filled in before D/C Order can be placed): Detention Facility 05/03/24 0738 <Electronically signed by Bernardino Briceno MD> Cosigner Signature (if applicable): CC: Dr. Jose J Lezama DO ~ [facility] Work Phone: [phone]) 829-605403-23-2025 History and physical note Author Bernardino Briceno [facility] Note Date/Time May 02, 2024 3:0 1pm [facility] Records Department [address] [place] [address] H&P Exam - Hospitalist 05/02/24 1454 MR#: [id number] Acct: [id number] Name: GLORIA PAUL Rep #:[id number] : 1935 88 From: Bernardino diez MD PCP: Dr. Jose J Lezama, DO Status:ADM FIDEL Location: [place] [address] HPI - General General Date of Admission: 05/02/24 HPI Narrative GLORIA PAUL, is a 88 F who presents to the hospital [facility]. She says that she frequently gets dizzy several times a week and is usually able to wait for it to go away prior to moving, however today she got up and was sitting in the chair and got dizzy and lightheaded and then it went away so she stood up and in the process of standing up she lost herbalance because of the lightheadedness and dizziness and fell forward and hit her head. She does not think she blacked out however a full set of CT scans andx-rays show that there has been no fractures, she does have a right forehead laceration that was repaired in the ER as well as ecchymosis over her right eye. Vision in her eye is not diminished but she does have difficulty due to swelling and opening her right eye. She does take oxybutynin and memantine and was found to be orthostatic in the ER. FORMERLY [facility], [facility] Medical History Obesity History of fall Fall Subtherapeutic international normalized ratio (INR) Right shoulder pain Kidney disease Non-smoker BiPAP (biphasic positive airway pressure) dependence Sleep apnea Hypertension Congestive heart failure (CHF) Atrial fibrillation Stroke/cerebrovascular accident Sleep apnea Kidney disease Atrial fibrillation Hypertension Chest pain History of coronary artery disease Pulmonary HTN Vertigo Chronic anticoagulation penitentiary current use of anticoagulant Wears hearing aid Post-menopausal Thyroid disease Insulin dependent diabetes mellitus Ambulates with cane Arthritis History of renal disease High cholesterol Easy bruising Back pain Migraine headache Difficulty swallowing Dietary restriction Shortness of breath on exertion History of pain when walking History of echocardiogram History of stress test Hypertension Cardiology follow-up encounter History of CHF (congestive heart failure) History of atrial fibrillation Osteoarthritis of left knee CAD (coronary artery disease) PAF (paroxysmal atrial fibrillation) Acute on chronic heart failure with preserved ejection fraction (HFpEF) New onset atrial fibrillation Congestive heart failure Broken ribs Lower GI bleeding Intertrigo Diabetes Non-smoker CPAP (continuous positive airway pressure) dependence Coronary artery disease Stroke/cerebrovascular accident (HFpEF) heart failure with preserved ejection fraction Microalbuminuria Pure hypercholesterolemia Essential hypertension Hypothyroidism GERD (gastroesophageal reflux disease) Fibromyalgia Atherosclerotic heart disease of [place] coronary artery without angina pectoris Presence of stent in coronary artery (~12/11/18) Carotid stenosis, left Debility Fatigue Angina pectoris Obstructive sleep apnea Lumbosacral radiculopathy CAD (coronary artery disease) Renal cancer History of stroke Diabetes mellitus, type 2 Home Medications ?Medication ?Instructions ?Recorded ?Last Taken ?Type levothyroxine 50 mcg tablet 50 mcg PO DAILY thyroid 05/02/24 History cholecalciferol (vitamin D3) 25 25 mcg PO DAILY vitami n 06/20/21 05/01/24 History mcg (1,000 unit) capsule (Vitamin D3) atorvastatin 40 mg tablet 40 mg PO QHS cholesterol #90 tabs 08/20/22 05/01/24 Rx nitroglycerin 0.4 mg sublingual 0.4 mg sublingual Q5M PRN chest 08/20/22 Unknown Rx tablet pain #25 tabs flash glucose scanning reader #1 ea 11/08/22 Unknown R x (FreeStyle Jong 2 [place]) ranolazine 500 mg tablet,extended 500 mg PO Q12H 12/0505/01/24 History release,12 hr aspirin 81 mg tablet,delayed 81 mg PO DAILY 02/03/23 0 02/19/23 History release (Adult Aspirin Regimen) gabapentin 300 mg capsule 300 mg PO TID NEUROPATHY #90 caps 02/07/23 05/02/24 Rx bisacodyl 10 mg rectal suppository 10 mg [place] DAILY PRN constipation 06/12/23 Unknown History insulin lispro 100 unit/mL 18 unit subcut TID 06/12/23 05/01/24 History subcutaneous pen lidocaine 4 % topical patch 1 patch topical DAILY pain 06/12/23 05/01/24 History (Lidocaine Pain Relief) magnesium hydroxide 400 mg/5 mL 30 ml PO DAILY PRN con stipation 06/12/23 Unknown History oral suspension (Milk of Magnesia) meclizine 12.5 mg tablet 12.5 mg PO Q4H PRN dizziness 06/12/23 04/30/24 History menthol 4 % topical gel (Biofreeze 1 applic topical DA BRAIN PRN pain 06/12/23 Unknown History (menthol)) mineral oil (Fleet Mineral Oil 118 ml [place] DAILY PRN con stipation 06/12/23 Unknown History enema) insulin glargine 100 unit/mL (3 28 unit subcut QHS 08/0305/01/24 History mL) subcutaneous pen (Lantus Solostar U-100 Insulin) loratadine 10 mg tablet 10 mg PO DAILY PRN allergy s ymptoms 09/15/23 Unknown History memantine 5 mg tablet 10 mg PO BID DEMENTIA 05/01/24 History duloxetine 60 mg capsule,delayed 60 mg PO DAILY 05/01/24 History release albuterol sulfate 2.5 mg/3 mL 2.5 mg inhalation Q6H TX N 02/13/24 Unknown History (0.083 %) solution for nebulization bronchospasm benzonatate 100 mg capsule 100 mg PO Q8H PRN cough 05/04 Unknown History dextran 70-hypromellose 0.1 %-0.3 1 drp ophthalmic (ey e) Q8H PRN dry 02/13/24 Unknown History % eye drops eye(s) isosorbide mononitrate 60 mg 60 mg PO BID HTN 03/11/24 05/01/24 History tablet,extended release 24 hr semaglutide 0.25 mg or 0.5 mg (2 0.25 mg (0.368 mL) navarro bcut QWEEK #3 04/01/24 04/26/24 Rx mg/3 mL) subcutaneous pen injector mL (Ozempic) empagliflozin 25 mg tablet 25 mg PO QAM DIABETES #30 t abs 04/15/24 05/01/24 Rx (Jardiance) acetaminophen 500 mg capsule 1,000 mg PO Q8 pain 05/02 Unknown History furosemide 20 mg tablet (Lasix) 20 mg PO DAILY edema, SOB 05/02/24 05/01/24 History gabapentin 100 mg capsule 100 mg PO QHS 05/02/2405/01 History guaifenesin 600 mg tablet, 600 mg PO Q12H PRN congesti on 05/02/24 Unknown History extended release 12 hr hydralazine 100 mg tablet 50 mg PO TID HTN 05/02/24 History insulin lispro 100 unit/mL See Protocol subcut .COMPLE X 05/02/24 05/01/24 History subcutaneous solution (Humalog U-100 Insulin) oxybutynin chloride 5 mg 5 mg PO DAILY BLADDER SPASMS 05/02/24 05/01/24 History tablet,extended release 24 hr trazodone 50 mg tablet 125 mg PO .HS insomnia 05/02 Unknown History Allergy/AdvReac Type Severity Reaction Status Date / Time morphine Allergy Intermediate Low blood Verified 04/01/24 15:04 pressure latex Allergy Rash Verified 04/01/24 15:04 adhesive tape AdvReac Rash Verified 04/01/24 15:04 ticagrelor (From Brilinta) AdvReac Shortness Verified 04/01/24 15:04 of breath Family History Father Heart disease Mother Breast cancer Diabetes Heart disease Surgical History History of coronary artery stent placement Hx of CABG History of coronary artery stent placement History of arthroscopic knee surgery History of cardiac catheterization Hx of hand surgery H/O hemorrhoidectomy History of appendectomy History of cholecystectomy Hx of CABG History of right and left heart catheterization (LHC) (~08/10/19) History of coronary artery bypass graft x 3 (~04/08/16) Presence of coronary angioplasty implant and graft (~12/11/18) History of back surgery History of right inguinal hernia repair History of knee replacement procedure of right knee History of hysterectomy Postlaminectomy syndrome of lumbar region Social History household members: spouse housing: house Smoking Status: Never smoker alcohol intake: never substance use type: does not use caffeine: No ROS Constitutional Constitutional: Denies chills, fatigue, fever(s) or malaise Eyes Eyes: Denies blurry vision ENT HEENT: Denies headache(s) or nasal discharge Cardiovascular Cardiovascular: Reports lightheadedness; Denies chest pain, dyspnea on exertion or syncope Respiratory/Chest Respiratory/Chest: Denies cough, shortness of breath at rest or shortness of breath with exertion Gastrointestinal Gastrointestinal: Denies constipation, diarrhea, nausea or vomiting Genitourinary Genitourinary: Denies dysuria Integumentary Integumentary: Reports wounds Neurologic Neurologic: Denies focal weakness, numbness or tremor(s) Psychiatric Psychiatric: Denies anxiety or depression Vital Signs Vital Signs Vital Signs: 05/02/24 08:17 05/02/24 08:26 05/02/24 09:17 Temperature 98.3 F Temperature Source Oral Pulse Rate 73 74 Pulse Rate [Lying] Pulse Rate [Sitting (for 1 minute prior to obtaining)] Pulse Rate [Standing (for 1 minute prior to obtaining)] Respiratory Rate 20 H 18 Respiratory Effort Normal Respiratory Depth Normal Respiratory Pattern Normal Blood Pressure 190/75 H 187/79 H Blood Pressure [Lying] Blood Pressure [Sitting (for 1 minute prior to obtaining)] Blood Pressure [Standing (for 1 minute prior to obtaining)] Blood Pressure Mean 113 115 Blood Pressure Mean [Lying] Blood Pressure Mean [Sitting (for 1 minute prior to obtaining)] Blood Pressure Mean [Standing (for 1 minute prior to obtaining)] Blood Pressure Source Blood Pressure Position Blood Pressure Location Pulse Ox 92 95 Oxygen Delivery Method Room Air Room Air 05/02/24 09:52 05/02/24 10:00 05/02/24 11:19 Temperature Temperature Source Pulse Rate 74 Pulse Rate [Lying] 74 Pulse Rate [Sitting (for 1 minute prior to obtaining)] 75 Pulse Rate [Standing (for 1 minute prior to obtaining)] 75 Respiratory Rate 18 Respiratory Effort Respiratory Depth Respiratory Pattern Blood Pressure 178/76 H 165/88 H Blood Pressure [Lying] 199/80 H Blood Pressure [Sitting (for 1 minute prior to obtaining)] 194/85 H Blood Pressure [Standing (for 1 minute prior to obtaining)] 178/76 H Blood Pressure Mean 110 113 Blood Pressure Mean [Lying] 119 Blood Pressure Mean [Sitting (for 1 minute prior to obtaining)] 121 Blood Pressure Mean [Standing (for 1 minute prior to obtaining)] 110 Blood Pressure Source Blood Pressure Position Blood Pressure Location Pulse Ox 94 Oxygen Delivery Method Room Air 05/02/24 12:00 05/02/24 12:57 05/02/24 13:50 Temperature 98.4 F 98.1 F Temperature Source Temporal Pulse Rate 72 71 77 Pulse Rate [Lying] Pulse Rate [Sitting (for 1 minute prior to obtaining)] Pulse Rate [Standing (for 1 minute prior to obtaining)] Respiratory Rate 22 H 16 18 Respiratory Effort Respiratory Depth Respiratory Pattern Blood Pressure 180/72 H 150/64 H 189/82 H Blood Pressure [Lying] Blood Pressure [Sitting (for 1 minute prior to obtaining)] Blood Pressure [Standing (for 1 minute prior to obtaining)] Blood Pressure Mean 108 92 117 Blood Pressure Mean [Lying] Blood Pressure Mean [Sitting (for 1 minute prior to obtaining)] Blood Pressure Mean [Standing (for 1 minute prior to obtaining)] Blood Pressure Source Monitor Blood Pressure Position Semi-Fowlers Blood Pressure Location Left Arm Pulse Ox 100 92 Oxygen Delivery Method Room Air 05/02/24 13:56 Temperature Temperature Source Pulse Rate Pulse Rate [Lying] Pulse Rate [Sitting (for 1 minute prior to obtaining)] Pulse Rate [Standing (for 1 minute prior to obtaining)] Respiratory Rate Respiratory Effort Normal Non-Labored Respiratory Depth Normal Respiratory Pattern Normal Blood Pressure Blood Pressure [Lying] Blood Pressure [Sitting (for 1 minute prior to obtaining)] Blood Pressure [Standing (for 1 minute prior to obtaining)] Blood Pressure Mean Blood Pressure Mean [Lying] Blood Pressure Mean [Sitting (for 1 minute prior to obtaining)] Blood Pressure Mean [Standing (for 1 minute prior to obtaining)] Blood Pressure Source Blood Pressure Position Blood Pressure Location Pulse Ox Oxygen Delivery Method Room Air Weight Weight: 163 lb 9.328 oz Body Mass Index (BMI) 29.0 Physical Exam Narrative General: Alert, Oriented x3, Cooperative, No apparent distress HEENT: Atraumatic, PERRLA, EOMI, Normocephalic, right eye lid ecchymosis and swelling Oral: Moist Mucosa Neck: Supple, No JVD Lungs: Diminished, Normal air movement, No rhonchi, No wheeze, No rales Cardiovascular: Regular rate, Regular Rhythm, Normal S1, Normal S2, No murmurs Abdomen: Soft, Non Tender, Non-Distended, No Hepato-splenomegaly Extremities: Trace edema, Capillary Refill Less than 3 Seconds Skin: No rashes, No breakdown, right forehead laceration Musculoskeletal: No Tenderness to Palpation of Joints or Extremities Neurological: No focal neurological deficits, moves all extremities Psych/Mental Status: Normal Affect, Appropriate Results Lab / Micro Data 05/02/24 08:25 05/02/24 08:25 Labs: Laboratory Results - last 24 hr 05/02/24 08:25: WBC 9.6, RBC 4.37, Hgb 13.8, Hct 42.6, MCV 97.5, MCH 31.6, MCHC 32.4, RDW Std Deviation 49.0 H, RDW Coeff of Laquita 13.5, Plt Count 195, MPV 11.4, Immature Gran % (Auto) 0.400, Neut % (Auto) 69.6, Lymph % (Auto) 17.2 L, [place] % (Auto) 7.5, Eos % (Auto) 4.6, Baso % (Auto) 0.7, Absolute Neuts (auto) 6.7, Absolute Lymphs (auto) 1.65, Nucleated RBC % 0, PT 13.1, INR 1.0, APTT 29.3, Sodium 138, Potassium 4.1, Chloride 104, Carbon Dioxide 18.5 L, Anion Gap 16 H, BUN 37 H, Creatinine 1.61 H, Estim Creat Clear Calc 24.69 L, Est GFR (MDRD) Non-Af 31 L, BUN/Creatinine Ratio 23.1 H, Glucose 257 H, Calcium 8.9, Total Bilirubin 0.28, Direct Bilirubin 0.13, AST 16, ALT 9, Alkaline Phosphatase 99, Total Protein 7.2, Albumin 4.0, Globulin 3.1, b-Hydroxybutyric mmol/L 0.3 05/02/24 09:56: Urine Color Yellow, Urine Clarity Clear, Urine pH 5.0, Ur Specific [place] 1.015, Urine Protein 30 H, Urine Glucose (UA) 1000 H, Urine Ketones Negative, Urine Occult Blood 150 H, Urine Nitrite Negative, Urine Bilirubin Negative, Urine Urobilinogen Normal, Ur Leukocyte Esterase Negative, Urine RBC 0 SEEN, Urine WBC 0-5 SEEN, Ur Squamous Epith Cells 5-10 SEEN, Urine Bacteria 0 SEEN, Urine Mucus 0 SEEN 05/02/24 12:08: POC Glucose 188 H ABG Data ABG results: ABG 05/02/24 11:38 Specimen Type JUAN ALBERTO Sample Site Not entered O2 % 21.0 VBG pH 7.32 VBG pO2 39 VBG HCO3 24 VBG Total CO2 25 VBG O2 Sat (Calc) 68 VBG Base Excess -2 L POC Mix VBG pCO2 Pt Tmp 46.5 O2 Delivery Device Not entered Imaging Radiology Impression Brain CT 05/02/24 08:37 IMPRESSION: Right frontal cephalohematoma. No intracranial hemorrhage or large territorial infarct. Additional, chronic appearing, findings as described. Reading Location: [address] Cervical Spine CT 05/02/24 08:37 IMPRESSION: 1. No fracture, subluxation, or prevertebral soft tissue swelling is seen. 2. Stable to slightly progressed multilevel degenerative changes. Reading Location: [address] Chest X-Ray 05/02/24 08:55 IMPRESSION: Generalized osteopenia is seen. Prior sternotomy again noted. Thoracic neurostimulator again seen. Evaluation of the lungs is limited by hypoinflation, patient motion, and AP portable technique. Stable right hemidiaphragm elevation noted. No evidence of pulmonary edema. Mild areas of bibasilar atelectasis are seen. No pleural effusion or pneumothorax is noted. The cardiomediastinal silhouette is stable, without evidence of cardiomegaly. No fracture site is seen, although sensitivity is reduced by underlying osteopenia; If clinical concern persists, short-term follow-up imaging may be obtained to rule out a currently occult fracture. Reading Location: [id number] Pelvis X-Ray 05/02/24 08:55 IMPRESSION: Multiple surgical clips are seen of the bilateral lower pelvis. Prominent arterial calcification is seen. Of the spine are noted. Partially visualized lower lumbar prior surgery is seen. Minimal left hip joint degenerative changes are seen, without associated joint narrowing. Mild sacroiliac joint degenerative changes are seen. No fracture or dislocation is seen on this solitary view. If clinical concern persists, short-term follow-up imaging may be obtained to rule out a currently occult fracture. Prominent degenerative changes Reading Location: [id number] Wrist X-Ray 05/02/24 08:55 IMPRESSION: Generalized osteopenia is seen. Moderate to moderately severe degenerative changes are seen of the 1st carpal-metacarpal joint. Probable moderate degenerative changes of the partially visualized 1st interphalangeal joint, with mild degenerative changes of the 1st metacarpophalangeal joint. Mild degenerative changes seen at the 2nd carpal-metacarpal joint. Prominent soft tissue calcification, at least partially arterial, in the radial aspect of the visualized portion of the distal forearm. Moderate degenerative changes seen of the scaphoid trapezial trapezoidal joint, with partial joint narrowing. No significant degree of ulnar variance is noted. No acute fracture or dislocation is seen, although sensitivity is reduced by theunderlying degree of osteopenia; If clinical concern persists, short-term follow-up imaging may be obtained to rule out a currently occult fracture. Reading Location: [address] Assessment & Plan Assessment/Plan (1) Orthostatic hypotension: (2) Laceration of head: (3) Syncope: PLAN: Plan 1. Orthostatic hypotension leading to fall with a forehead laceration and ecchymosis over the right eyelid ? She frequently gets dizzy and does appear to be orthostatic in origin ? She is severely hypertensive at baseline is on multiple medications ? Systolic blood pressure went from 199 laying down to 178 on standing consistent with orthostatic hypotension ? She is on meclizine as an outpatient ? Given the intensity of her blood pressure I do not think that I can discontinue any of her home blood pressure medications ? She is on memantine and oxybutynin both of which can cause lightheadedness anddizziness I discussed with family that this is to be discontinued and [facility] the [facility] 2. Essential HTN/HLD/CAD status post CABG and stent/paroxysmal A-fib ? No anticoagulation given that she is a fall risk ? Will hold her aspirin for 24 hours ? Can resume her home blood pressure medications and her home cholesterol ? Will monitor make adjustments as necessary ? Hold her Lasix given the need for some gentle IV fluids for her orthostatic hypotension 3. DM2 ? Continue with Jardiance ? Hold Ozempic ? Continue with insulin, Accu-Cheks ACHS ? Will monitor make adjustments as necessary 5. Hypothyroidism ? Stable ? Continue with Synthroid 6. Anxiety/depression/dementia ? Hold memantine ? Continue with her other home medications 7. Urinary incontinence ? Will hold oxybutynin given her age and her frequent falls DVT: SCDs 75 minutes was spent on direct patient care, including documentation as well as chart review and collaboration with colleagues Charges/Coding Visit Charges Inpatient E&M: 24883 Init Hosp L3 05/02/24 1501 <Electronically signed by Bernardino Briceno MD> Cosigner Signature (if applicable): CC: Dr. Jose J Lezama DO; Dr. Bernardino Briceno MD~ Signed [facility] Work Phone: [phone] Discharge summary Author Ziggy Moreau [facility] Note Date/Time May 02, 2024 12: 01pm [facility] Medical Records Department [address] [place] [address] Emergency Department Summary 05/02/24 MR#: [id number] Acct: [id number] Name: GLORIA PAUL Rep #:[id number] : 1935 88 From: Ziggy Moreau DO PCP: Dr. Jose J Lezama DO Status:REG ER Location: ED HPI History of Present Illness Chief Complaint: Fall Narrative Narrative: Patient is a 88-year-old female with past medical history of [place], CHF, hypertension, pulmonary hypertension, migraine headache, atrial fibrillation paroxysmal, diabetes, GERD, carotid stenosis who presented to the emergency department the chief complaint of fall and head laceration. Patient states thatshe sat up this morning to get up and noted that she became dizzy. She states that she sat there for a while and noted that she felt better so therefore she attempted to get up and when she stood up she immediately fell forward hitting her face on the ground. Patient states that she is had problems with dizziness for a significant amount of time now this is not a new issue. Patient states that she believes she has not any blood thinner medications and does not know when her last tetanus shot was. [facility] Medical History Obesity History of fall Fall Subtherapeutic international normalized ratio (INR) Right shoulder pain Kidney disease Non-smoker BiPAP (biphasic positive airway pressure) dependence Sleep apnea Hypertension Congestive heart failure (CHF) Atrial fibrillation Stroke/cerebrovascular accident Sleep apnea Kidney disease Atrial fibrillation Hypertension Chest pain History of coronary artery disease Pulmonary HTN Vertigo Chronic anticoagulation penitentiary current use of anticoagulant Wears hearing aid Post-menopausal Thyroid disease Insulin dependent diabetes mellitus Ambulates with cane Arthritis History of renal disease High cholesterol Easy bruising Back pain Migraine headache Difficulty swallowing Dietary restriction Shortness of breath on exertion History of pain when walking History of echocardiogram History of stress test Hypertension Cardiology follow-up encounter History of CHF (congestive heart failure) History of atrial fibrillation Osteoarthritis of left knee CAD (coronary artery disease) PAF (paroxysmal atrial fibrillation) Acute on chronic heart failure with preserved ejection fraction (HFpEF) New onset atrial fibrillation Congestive heart failure Broken ribs Lower GI bleeding Intertrigo Diabetes Non-smoker CPAP (continuous positive airway pressure) dependence Coronary artery disease Stroke/cerebrovascular accident (HFpEF) heart failure with preserved ejection fraction Microalbuminuria Pure hypercholesterolemia Essential hypertension Hypothyroidism GERD (gastroesophageal reflux disease) Fibromyalgia Atherosclerotic heart disease of [place] coronary artery without angina pectoris Presence of stent in coronary artery (~12/11/18) Carotid stenosis, left Debility Fatigue Angina pectoris Obstructive sleep apnea Lumbosacral radiculopathy CAD (coronary artery disease) Renal cancer History of stroke Diabetes mellitus, type 2 Home Medications ?Medication ?Instructions ?Recorded ?Last Taken ?Type levothyroxine 50 mcg tablet 50 mcg PO DAILY thyroid 05/02/24 History cholecalciferol (vitamin D3) 25 25 mcg PO DAILY vitami n 06/20/21 05/01/24 History mcg (1,000 unit) capsule (Vitamin D3) atorvastatin 40 mg tablet 40 mg PO QHS cholesterol #90 tabs 08/20/22 05/01/24 Rx nitroglycerin 0.4 mg sublingual 0.4 mg sublingual Q5M PRN chest 08/20/22 Unknown Rx tablet pain #25 tabs flash glucose scanning reader #1 ea 11/08/22 Unknown R x (FreeStyle Jong 2 [place]) ranolazine 500 mg tablet,extended 500 mg PO Q12H 12/0505/01/24 History release,12 hr aspirin 81 mg tablet,delayed 81 mg PO DAILY 02/03/23 0 02/19/23 History release (Adult Aspirin Regimen) gabapentin 300 mg capsule 300 mg PO TID NEUROPATHY #90 caps 02/07/23 05/02/24 Rx bisacodyl 10 mg rectal suppository 10 mg TX DAILY PRN constipation 06/12/23 Unknown History insulin lispro 100 unit/mL 18 unit subcut TID 06/12/23 05/01/24 History subcutaneous pen lidocaine 4 % topical patch 1 patch topical DAILY pain 06/12/23 05/01/24 History (Lidocaine Pain Relief) magnesium hydroxide 400 mg/5 mL 30 ml PO DAILY PRN con stipation 06/12/23 Unknown History oral suspension (Milk of Magnesia) meclizine 12.5 mg tablet 12.5 mg PO Q4H PRN dizziness 06/12/23 04/30/24 History menthol 4 % topical gel (Biofreeze 1 applic topical DA BRAIN PRN pain 06/12/23 Unknown History (menthol)) mineral oil (Fleet Mineral Oil 118 ml [place] DAILY PRN con stipation 06/12/23 Unknown History enema) insulin glargine 100 unit/mL (3 28 unit subcut QHS 08/0305/01/24 History mL) subcutaneous pen (Lantus Solostar U-100 Insulin) loratadine 10 mg tablet 10 mg PO DAILY PRN allergy s ymptoms 09/15/23 Unknown History memantine 5 mg tablet 10 mg PO BID DEMENTIA 05/01/24 History duloxetine 60 mg capsule,delayed 60 mg PO DAILY 05/01/24 History release acetaminophen 500 mg oral powder 1,000 mg PO TID PRN f ever or pain 02/13/24 05/01/24 History packet (Tylenol Extra Strength) albuterol sulfate 2.5 mg/3 mL 2.5 mg inhalation Q6H TX N 02/13/24 Unknown History (0.083 %) solution for nebulization bronchospasm benzonatate 100 mg capsule 100 mg PO Q8H PRN cough 05/04 Unknown History dextran 70-hypromellose 0.1 %-0.3 1 drp ophthalmic (ey e) Q8H PRN dry 02/13/24 Unknown History % eye drops eye(s) isosorbide mononitrate 60 mg 60 mg PO BID HTN 03/11/24 05/01/24 History tablet,extended release 24 hr semaglutide 0.25 mg or 0.5 mg (2 0.25 mg (0.368 mL) navarro bcut QWEEK #3 04/01/24 04/26/24 Rx mg/3 mL) subcutaneous pen injector mL (Ozempic) empagliflozin 25 mg tablet 25 mg PO QAM DIABETES #30 t abs 04/15/24 05/01/24 Rx (Jardiance) furosemide 20 mg tablet (Lasix) 20 mg PO DAILY edema, SOB 05/02/24 05/01/24 History gabapentin 100 mg capsule 100 mg PO QHS 05/02/2405/01 History guaifenesin 600 mg tablet, 600 mg PO Q12H PRN congesti on 05/02/24 Unknown History extended release 12 hr hydralazine 100 mg tablet 50 mg PO TID HTN 05/02/24 History insulin lispro 100 unit/mL See Protocol subcut .COMPLE X 05/02/24 05/01/24 History subcutaneous solution (Humalog U-100 Insulin) oxybutynin chloride 5 mg 5 mg PO DAILY BLADDER SPASMS 05/02/24 05/01/24 History tablet,extended release 24 hr tramadol 50 mg tablet 125 mg PO QHS INSOMNIA 05/0205/01/24 History Allergy/AdvReac Type Severity Reaction Status Date / Time morphine Allergy Intermediate Low blood Verified 04/01/24 15:04 pressure latex Allergy Rash Verified 04/01/24 15:04 adhesive tape AdvReac Rash Verified 04/01/24 15:04 ticagrelor (From Brilinta) AdvReac Shortness Verified 04/01/24 15:04 of breath Family History Father Heart disease Mother Breast cancer Diabetes Heart disease Surgical History History of coronary artery stent placement Hx of CABG History of coronary artery stent placement History of arthroscopic knee surgery History of cardiac catheterization Hx of hand surgery H/O hemorrhoidectomy History of appendectomy History of cholecystectomy Hx of CABG History of right and left heart catheterization (LHC) (~08/10/19) History of coronary artery bypass graft x 3 (~04/08/16) Presence of coronary angioplasty implant and graft (~12/11/18) History of back surgery History of right inguinal hernia repair History of knee replacement procedure of right knee History of hysterectomy Postlaminectomy syndrome of lumbar region Social History household members: spouse housing: house Smoking Status: Never smoker alcohol intake: never substance use type: does not use caffeine: No ROS ROS ED ROS Narrative Constitutional: Complains of laceration to head denies fevers, chills, headaches, lightness, dizziness Eyes: Denies change in vision double vision blurry vision Cardiovascular: Denies chest pain or palpitations Respiratory: Denies shortness of breath Abdomen: Denies abdominal pain nausea vomit diarrhea : Denies any urinary symptoms Neurological: Denies numbness, weakness, tingling Musculoskeletal: Denies back pain Skin: Complaint of head laceration EXAM Physical Exam Narrative Exam Narrative: General: Patient lying in bed rest comfortably did not appear to be in acute distress Head: Patient has a complex 6 cm x 3 cm laceration noted on her right forehead, normocephalic Eyes: PERRL bilaterally, EOMI bilateral, patient does have subconjunctival hemorrhage noted in her right eye Neck: Soft, supple, trach midline Cardiovascular: Regular rate and rhythm Respiratory: Clear to auscultation bilaterally Abdomen: Soft, nondistended, nontender to palpation Musculoskeletal: Patient had some pain with attempted range of motion of her right hip, tenderness to palpation of the left wrist all of the bony prominencesand joints taken to full range of motion no pain elicited Extremities: +4/5 strength noted in the bilateral lower extremities, no pedal edema on exam Neurological: Patient follow commands knew that she was at [facility] 2024 Skin: Warm, dry, intact no rashes or lesions noted CT head Const Vital Signs: 05/02/24 08:17 05/02/24 08:26 05/02/24 09:17 Temperature 98.3 F Temperature Source Oral Pulse Rate 73 74 Pulse Rate [Lying] Pulse Rate [Sitting (for 1 minute prior to obtaining)] Pulse Rate [Standing (for 1 minute prior to obtaining)] Respiratory Rate 20 H 18 Respiratory Effort Normal Respiratory Depth Normal Respiratory Pattern Normal Blood Pressure 190/75 H 187/79 H Blood Pressure [Lying] Blood Pressure [Sitting (for 1 minute prior to obtaining)] Blood Pressure [Standing (for 1 minute prior to obtaining)] Blood Pressure Mean 113 115 Blood Pressure Mean [Lying] Blood Pressure Mean [Sitting (for 1 minute prior to obtaining)] Blood Pressure Mean [Standing (for 1 minute prior to obtaining)] Pulse Ox 92 95 Oxygen Delivery Method Room Air Room Air 05/02/24 09:52 05/02/24 10:00 05/02/24 11:19 Temperature Temperature Source Pulse Rate 74 Pulse Rate [Lying] 74 Pulse Rate [Sitting (for 1 minute prior to obtaining)] 75 Pulse Rate [Standing (for 1 minute prior to obtaining)] 75 Respiratory Rate 18 Respiratory Effort Respiratory Depth Respiratory Pattern Blood Pressure 178/76 H 165/88 H Blood Pressure [Lying] 199/80 H Blood Pressure [Sitting (for 1 minute prior to obtaining)] 194/85 H Blood Pressure [Standing (for 1 minute prior to obtaining)] 178/76 H Blood Pressure Mean 110 113 Blood Pressure Mean [Lying] 119 Blood Pressure Mean [Sitting (for 1 minute prior to obtaining)] 121 Blood Pressure Mean [Standing (for 1 minute prior to obtaining)] 110 Pulse Ox 94 Oxygen Delivery Method Room Air MDM MDM MDM Narrative Medical decision making narrative: Patient is a 88-year-old female who presented to the emerged part with chief complaint of syncopal episode with a head laceration. On the differential diagnose includes but not limited to ACS, vasovagal syncope, head laceration, intracranial hemorrhage, cervical spine fracture. Once workup is obtained reviewed she will be reevaluated. Patient tetanus shot will be updated here today as she is unsure when her last tetanus shot was. Patient's CBC was reviewed and showed no evidence leukocytosis white blood countnormal at 9.6, hemoglobin 13.8, plate count of 195. Patient's PT was noted be 13.1 with an INR normal at 1. Patient sodium normal 130, potassium of 4.1, patient's anion gap is elevated to 16 CO2 low at 18.5, creatinine was noted be 1.61 she has underlying chronic kidney disease. Patient glucose was noted be 257. Patient will be given 10 units of subcutaneous insulin, AST and ALT were 16 and 9 respectively. Patient's beta-hydroxybutyrate normal at 0.3. Patient'surinalysis showed no evidence of ketones and thousand glucose and no evidence ofinfection. Patient's wrist x- ray reviewed by myself by radiology which showed no acute fracture or dislocation she does have osteopenia and other degenerativechanges noted. Patient's x-ray of her pelvis reviewed by myself and by radiology which showed no fracture or dislocation there are prominent degenerative changes noted. Patient chest x-ray reviewed by myself by radiologyand showed generalized osteopenia no pleural effusions or pneumothorax noted. Patient's CT head and brain without contrast showed a right frontal cephalhematoma no intracranial hemorrhage or large territorial infarct noted. Patient CT cervical spine reviewed showed no fracture subluxation or prevertebral soft tissue swelling. Patient's EKG was reviewed which showed sinus rhythm with a rate of 72 bpm with evidence of first-degree AV block with aQTc of 457. Patient had her head laceration repaired here in the emergency department and tolerated this well she will need her sutures out approximately 5 days. At thispoint in time given her syncopal episode her anion gap we will discuss case withhospitalist for admission. Patient's venous pH returned and showed a pH 7.31 with a bicarb of 23.9. Patient's orthostatic vital signs were positive she received IV fluid here in the emergency department Discussed case with hospitalist Dr. Briceno who accept patient for admission. Patient was notified is agreeable with this plan all questions and concerns answered. Lab Data Labs: Laboratory Results - last 24 hr 05/02/24 05/02/24 08:25 09:56 WBC 9.6 RBC 4.37 Hgb 13.8 Hct 42.6 MCV 97.5 MCH 31.6 MCHC 32.4 RDW Std Deviation 49.0 H RDW Coeff of Laquita 13.5 Plt Count 195 MPV 11.4 Immature Gran % (Auto) 0.400 Neut % (Auto) 69.6 Lymph % (Auto) 17.2 L Lanier % (Auto) 7.5 Eos % (Auto) 4.6 Baso % (Auto) 0.7 Absolute Neuts (auto) 6.7 Absolute Lymphs (auto) 1.65 Nucleated RBC % 0 PT 13.1 INR 1.0 APTT 29.3 Sodium 138 Potassium 4.1 Chloride 104 Carbon Dioxide 18.5 L Anion Gap 16 H BUN 37 H Creatinine 1.61 H Estim Creat Clear Calc 24.69 L Est GFR (MDRD) Non-Af 31 L BUN/Creatinine Ratio 23.1 H Glucose 257 H Calcium 8.9 Total Bilirubin 0.28 Direct Bilirubin 0.13 AST 16 ALT 9 Alkaline Phosphatase 99 Total Protein 7.2 Albumin 4.0 Globulin 3.1 b-Hydroxybutyric mmol/L 0.3 Urine Color Yellow Urine Clarity Clear Urine pH 5.0 Ur Specific [place] 1.015 Urine Protein 30 H Urine Glucose (UA) 1000 H Urine Ketones Negative Urine Occult Blood 150 H Urine Nitrite Negative Urine Bilirubin Negative Urine Urobilinogen Normal Ur Leukocyte Esterase Negative Urine WBC 0-5 SEEN Ur Squamous Epith Cells 5-10 SEEN Urine Bacteria 0 SEEN Urine Mucus 0 SEEN ABG Data ABG results: ABG 05/02/24 11:38 Specimen Type JUAN ALBERTO Sample Site Not entered O2 % 21.0 VBG pH 7.32 VBG pO2 39 VBG HCO3 24 VBG Total CO2 25 VBG O2 Sat (Calc) 68 VBG Base Excess -2 L POC Mix VBG pCO2 Pt Tmp 46.5 O2 Delivery Device Not entered Radiography Diagnostic Testing: Clinical Impression(s) from Imaging Studies Brain CT 05/02/24 08:37 IMPRESSION: Right frontal cephalohematoma. No intracranial hemorrhage or large territorial infarct. Additional, chronic appearing, findings as described. Reading Location: [address] Cervical Spine CT 05/02/24 08:37 IMPRESSION: 1. No fracture, subluxation, or prevertebral soft tissue swelling is seen. 2. Stable to slightly progressed multilevel degenerative changes. Reading Location: [address] Chest X-Ray 05/02/24 08:55 IMPRESSION: Generalized osteopenia is seen. Prior sternotomy again noted. Thoracic neurostimulator again seen. Evaluation of the lungs is limited by hypoinflation, patient motion, and AP portable technique. Stable right hemidiaphragm elevation noted. No evidence of pulmonary edema. Mild areas of bibasilar atelectasis are seen. No pleural effusion or pneumothorax is noted. The cardiomediastinal silhouette is stable, without evidence of cardiomegaly. No fracture site is seen, although sensitivity is reduced by underlying osteopenia; If clinical concern persists, short-term follow-up imaging may be obtained to rule out a currently occult fracture. Reading Location: [address] Pelvis X-Ray 05/02/24 08:55 IMPRESSION: Multiple surgical clips are seen of the bilateral lower pelvis. Prominent arterial calcification is seen. Of the spine are noted. Partially visualized lower lumbar prior surgery is seen. Minimal left hip joint degenerative changes are seen, without associated joint narrowing. Mild sacroiliac joint degenerative changes are seen. No fracture or dislocation is seen on this solitary view. If clinical concern persists, short-term follow-up imaging may be obtained to rule out a currently occult fracture. Prominent degenerative changes Reading Location: [address] Wrist X-Ray 05/02/24 08:55 IMPRESSION: Generalized osteopenia is seen. Moderate to moderately severe degenerative changes are seen of the 1st carpal-metacarpal joint. Probable moderate degenerative changes of the partially visualized 1st interphalangeal joint, with mild degenerative changes of the 1st metacarpophalangeal joint. Mild degenerative changes seen at the 2nd carpal-metacarpal joint. Prominent soft tissue calcification, at least partially arterial, in the radial aspect of the visualized portion of the distal forearm. Moderate degenerative changes seen of the scaphoid trapezial trapezoidal joint, with partial joint narrowing. No significant degree of ulnar variance is noted. No acute fracture or dislocation is seen, although sensitivity is reduced by theunderlying degree of osteopenia; If clinical concern persists, short-term follow-up imaging may be obtained to rule out a currently occult fracture. Reading Location: [address] Discharge Plan Triage Chief Complaint: Fall ED Provider: Ziggy Moreau Dx/Rx/DC Orders Clinical Impression: Diabetes, Syncope, Laceration of head, Orthostatic hypotension Prescriptions: No Action cholecalciferol (vitamin D3) [Vitamin D3] 25 mcg (1,000 unit) capsule 25 mcg PO DAILY levothyroxine 50 mcg tablet 50 mcg PO DAILY lidocaine [Lidocaine Pain Relief] 4 % adhesive patch,medicated 1 patch topical DAILY meclizine 12.5 mg tablet 12.5 mg PO Q4H PRN (Reason: dizziness) insulin lispro 100 unit/mL insulin pen 18 unit SUBCUT TID Patient Comments: at meals mineral oil [Fleet Mineral Oil] Enema 118 ml TX DAILY PRN (Reason: constipation) Rx Instructions: discard any unused portion magnesium hydroxide [Milk of Magnesia] 400 mg/5 mL suspension 30 ml PO DAILY PRN (Reason: constipation) bisacodyl 10 mg suppository 10 mg TX DAILY PRN (Reason: constipation) Biofreeze (menthol) 4 % gel 1 applic topical DAILY PRN (Reason: pain) Patient Comments: APPLY TO RIGHT SHOULDER insulin glargine [Lantus Solostar U-100 Insulin] 100 unit/mL (3 mL) insulin pen 28 unit subcut QHS memantine 5 mg tablet 10 mg PO BID loratadine 10 mg tablet 10 mg PO DAILY PRN (Reason: allergy symptoms) Ozempic 0.25 mg or 0.5 mg (2 mg/3 mL) pen injector 0.25 mg subcut QWEEK Qty: 3 3RF Patient Comments: TAKE ON MONDAYS Jardiance 25 mg tablet 25 mg PO QAM Qty: 30 5RF duloxetine 60 mg capsule,delayed release(DR/EC) 60 mg PO DAILY benzonatate 100 mg capsule 100 mg PO Q8H PRN (Reason: cough) dextran 70-hypromellose 0.1-0.3 % drops 1 drp ophthalmic (eye) Q8H PRN (Reason: dry eye(s)) Tylenol Extra Strength 500 mg powder in packet 1,000 mg PO TID PRN (Reason: fever or pain) albuterol sulfate 2.5 mg /3 mL (0.083 %) solution for nebulization 2.5 mg inhalation Q6H PRN (Reason: bronchospasm) isosorbide mononitrate 60 mg tablet extended release 24 hr 60 mg PO BID aspirin [Adult Aspirin Regimen] 81 mg tablet,delayed release (DR/EC) 81 mg PO DAILY gabapentin 300 mg capsule 300 mg PO TID Qty: 90 0RF ranolazine 500 mg tablet extended release 12 hr 500 mg PO Q12H gabapentin 100 mg capsule 100 mg PO QHS oxybutynin chloride 5 mg tablet extended release 24hr 5 mg PO DAILY tramadol 50 mg tablet 125 mg PO QHS guaifenesin 600 mg tablet extended release 12hr 600 mg PO Q12H PRN (Reason: congestion) insulin lispro [Humalog U-100 Insulin] 100 unit/mL solution See Protocol subcut .COMPLEX Protocol: 6. Sliding Scale Insulin Custom Condition: mg/dl range Dose/Route: Number of Units Condition: 200-249 Dose/Route: 2 UNITS Condition: 250-299 Dose/Route: 3 UNITS Condition: 300-349 Dose/Route: 4 UNITS Condition: 350-400 Dose/Route: 6 UNITS Protocol Text: Custom Sliding Scale Rx Instructions: subcutaneously PER SLIDING SCALE; hydralazine 100 mg tablet 50 mg PO TID furosemide [Lasix] 20 mg tablet 20 mg PO DAILY atorvastatin 40 mg tablet 40 mg PO QHS Qty: 90 3RF nitroglycerin 0.4 mg tablet, sublingual 0.4 mg SUBLINGUAL Q5M PRN (Reason: chest pain) Qty: 25 3RF Rx Instructions: do not exceed 3 doses per episode (DME) FreeStyle Jong 2 [place] Misc See Rx Instructions .Route Qty: 1 0RF Rx Instructions: As directed Primary Care Provider: Jose J Lezama Referrals: Jose J Lezama DO [Primary Care Provider] - Print Language: Lao Disposition Disposition: Acute Care Hospital [facility] What to do if you have Problems For any increased pain, shortness of breath, bleeding, nausea or vomiting, chestpain, or any unexpected problems, contact your Primary Care Provider. Call [facility] ([phone]) or report to the closest Emergency Room. Call 911 if necessary. 05/02/24 1201 <Electronically signed by Ziggy Moreau DO> Cosigner Signature (if applicable): CC: Dr. Jose J Lezama DO ~ Signed [facility] Work Phone: 1(462) 305-305703-23-2025 Radiology Diagnostic study [facility]03-23-2025 Radiology Diagnostic study [facility]03-23-2025 Radiology Diagnostic study [facility] 05-02-2024 Radiology Diagnostic study [facility]03-23-2025 Radiology Diagnostic study [facility]01-03-2025 Evaluation note* Diagnosis Onset Date Resolution Status Admit Date Venous insufficiency (chroni c) (peripheral) chronic February 12 1:41pm Frequent falls acute March 112024 2:48pm Dyslipidemia chronic February 2:48pm Dyspnea chronic March 11, 2024 2:48pm Essential hypertension chronic Ja nuary 2024 2:48pm PAF (paroxysmal atrial fibrillation) chronic March 11 2:48pm CAD (coronary artery disease) inacti ve March 11, 2024 2:48pm CKD (chronic kidney disease) stage 4, GFR 15-29 ml/min chronic 2024 2:57pm Diabetes chronic April 01, 2024 2:57pm Dyslipidemia chronic March 2:57pm Essential hypertension chronic Fe bruary 2024 2:57pm Hypothyroidism chronic March 142024 2:57pm Overweight chronic April 01, 2024 2:57pm Laceration of head acute May 02, 2024 11:58am Orthostatic hypotension acute M arch 2024 11:58am Syncope acute May 02 11:58am Diabetes chronic May 02 11:58am [facility] Work Phone: 1(799) 402-543001-12-2024 Consult note Author Ramírez Finley [facility] February 21, 2023 2:38pm Note Date/Time February 21, 2023 2 :39pm [facility] Medical Records Department [address] [place] [id number] Counseling Note - Pharmacy 02/21/23 1438 MR#: [id number] Acct: [id number] Name: GLORIA PAUL Rep #:[id number] : 1935 87 From: Ramírez Fniley PCP: Dr. Jose J Lezama, DO Status:ADM FIDEL Y Location: [place] [address] Pharmacy [place] Med Reconciliation Pharmacy Service has performed discharge medication reconciliation for this patient. The patient's discharge medication list was reviewed for discrepancies and discrepancies were resolved. Medications at Discharge Home Medications oxybutynin chloride 10 mg tablet,extended release 24 hr 10 mg PO DAILY BLADDER 03/23/19 levothyroxine 50 mcg tablet 50 mcg PO DAILY thyroid 05/10/20 cholecalciferol (vitamin D3) 25 mcg (1,000 unit) capsule (Vitamin D3) 25 mcg PO QODAY vitamin 05/11/22 atorvastatin 40 mg tablet 40 mg PO QHS cholesterol #90 tabs 08/20/22 hydralazine 100 mg tablet 100 mg PO TID #270 tabs 08/20/22 nitroglycerin 0.4 mg sublingual tablet 0.4 mg sublingual Q5M PRN chest pain #25 tabs 08/20/22 flash glucose scanning reader (Picmonic Jong 2 [place]) #1 ea 11/08/22 ranolazine 500 mg tablet,extended release,12 hr 500 mg PO Q12H 12/05/22 insulin glargine 100 unit/mL (3 mL) subcutaneous pen (Lantus Solostar U-100 Insulin) 27 unit (0.27 mL) subcut QPM #8.1 mL 01/30/23 aspirin 81 mg tablet,delayed release (Adult Aspirin Regimen) 81 mg PO DAILY 02/03/23 duloxetine 30 mg capsule,delayed release 30 mg PO DAILY DEPRESSION 02/03/23 isosorbide mononitrate 60 mg tablet,extended release 24 hr 60 mg PO DAILY 02/03/23 empagliflozin 25 mg tablet (Jardiance) 25 mg PO DAILY diabetes 02/06/23 furosemide 20 mg tablet (Lasix) 20 mg PO DAILY #30 tabs 02/07/23 gabapentin 300 mg capsule 300 mg PO TID #90 caps 02/07/23 metoprolol tartrate 25 mg tablet 25 mg PO DAILY 02/18/23 memantine 5 mg-10 mg tablets in a dose pack See Protocol PO UD MEMORY 02/19/23 insulin lispro 100 unit/mL subcutaneous pen 10 unit (0.1 mL) subcut TID 30 days #15 mL 02/21/23 02/21/23 3743 <Electronically signed by Ramírez greene> Date _ Ramírez Baker Signature (if applicable): Date CC: ~ Signed [facility] Work Phone: 1(238) 760-716601-12-2024 [address] [facility] February 21, 2023 1:52pm Note Date/Time February 21, 2023 1 :53pm [facility] Medical Records Department [address] [place] [address] Discharge Summary 02/21/23 1351 MR#: [id number] Acct: [id number] Name: GLORIA PAUL Rep #:[id number] : 1935 87 From: Clifford infante DO PCP: Dr. Jose J Lezama DO Status:ADM FIDEL Location: [place] [address] Providers Date of Admission: 02/18/23 Date of Discharge: 02/21/23 Primary Care Physician: Dr. Jose J Lezama DO Reason For Visit: MECHANICAL FALL, WEAKNESS Diagnosis Discharge Diagnosis (1) Frequent falls: Status: Acute Code(s): R29.6 - Repeated falls (2) Weakness: Status: Acute Code(s): R53.1 - Weakness Medications at Discharge Home Medications oxybutynin chloride 10 mg tablet,extended release 24 hr 10 mg PO DAILY BLADDER 03/23/19 levothyroxine 50 mcg tablet 50 mcg PO DAILY thyroid 05/10/20 cholecalciferol (vitamin D3) 25 mcg (1,000 unit) capsule (Vitamin D3) 25 mcg PO QODAY vitamin 06/20/21 atorvastatin 40 mg tablet 40 mg PO QHS cholesterol #90 tabs 08/20/22 hydralazine 100 mg tablet 100 mg PO TID #270 tabs 08/20/22 nitroglycerin 0.4 mg sublingual tablet 0.4 mg sublingual Q5M PRN chest pain #25 tabs 08/20/22 flash glucose scanning reader (FreeStyle Jong 2 [place]) #1 ea 11/08/22 ranolazine 500 mg tablet,extended release,12 hr 500 mg PO Q12H 12/05/22 insulin glargine 100 unit/mL (3 mL) subcutaneous pen (Lantus Solostar U-100 Insulin) 27 unit (0.27 mL) subcut QPM #8.1 mL 01/30/23 aspirin 81 mg tablet,delayed release (Adult Aspirin Regimen) 81 mg PO DAILY 02/03/23 duloxetine 30 mg capsule,delayed release 30 mg PO DAILY DEPRESSION 02/03/23 isosorbide mononitrate 60 mg tablet,extended release 24 hr 60 mg PO DAILY 02/03/23 empagliflozin 25 mg tablet (Jardiance) 25 mg PO DAILY diabetes 02/06/23 furosemide 20 mg tablet (Lasix) 20 mg PO DAILY #30 tabs 02/07/23 gabapentin 300 mg capsule 300 mg PO TID #90 caps 02/07/23 metoprolol tartrate 25 mg tablet 25 mg PO DAILY 02/18/23 memantine 5 mg-10 mg tablets in a dose pack See Protocol PO UD MEMORY 02/19/23 insulin lispro 100 unit/mL subcutaneous pen 10 unit (0.1 mL) subcut TID 30 days #15 mL 02/21/23 Hospital Course Operations None Procedures EKG and - (CT head without contrast, chest x-ray) Summary of Care Provided Minutes Spent on Discharge: 35 Hospital Course: Patient is an 87-year-old female who presented to [facility] ED on 02/18/2023 with worsening weakness with frequent falls at home. Hospital course as noted below. Discharged to [facility] facility on 02/21 in stablecondition. 1. Debility and weakness with mechanical falls Notably with recent admission in January for similar concerns. Insurance denied SNF at that time for unclear reasons. Patient had near syncopal episode at home on day of admission along with fall, felt weak and lethargic afterwards. CT brain without contrast on admit nonacute. Chest x-ray normal, no evidence of UTI. ? PT/OT/case management followed. Fall precautions in place during admission. Held home Coumadin due to fall and will discontinue on discharge as noted below. Discharged to SNF. 2. 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 Baseline creatinine appears to be around 1.3- 1.6. Most likely prerenal SHA in setting of poor p.o. intake. S/p IV fluid resuscitation on admission. ? Creatinine 1.36 on day of discharge. Patient reported good urine output and improving p.o. intake during admission. 3. Paroxysmal A-fib ? Home meds of metoprolol and Coumadin. INR 2.3 on admit. Coumadin held on admit given history of recent falls. After discussion with family, opted to discontinue Coumadin on discharge given patient's risk of falls going forward. Okay to continue baby aspirin as an below. Continue home metoprolol. Chronic medical conditions: ? Type 2 diabetes mellitus with neuropathy: Lantus 25 units daily with sliding scale insulin with meals while inpatient. Continue home gabapentin. Restarted home insulin regimen and Jardiance on discharge. ? CAD s/p CABG in 2017 and stenting, hypertension, hyperlipidemia: Continue homeImdur, metoprolol, hydralazine, aspirin and statin. ? Hypothyroidism: Continue home Synthroid. ? History of CVA: Continue home aspirin and statin. ? Recent history of dementia with mood disorder: Continue home duloxetine. ? Overactive bladder: Continue home oxybutynin. Total clinical time spent by myself addressing the patient's discharge needs: 35minutes. Physical Exam Const alert, oriented x3, no apparent distress and average body habitus Constitutional Narrative: Elderly female, sitting comfortably in bedside chair, conversing normally, no acute distress. General Appearance: cooperative and comfortable HEENT normocephalic, head/scalp atraumatic, hearing grossly normal bilaterally and nasal mucous membranes and turbinates normal Eyes PERRL, EOMs intact bilaterally and conjunctivae normal Neck full ROM, no lymphadenopathy and supple Lymph Lymphatic: no lymphadenopathy noted Chest inspection of chest normal Resp normal respiratory effort, normal air movement, no use of accessory muscles and clear to auscultation bilaterally Cardio regular rate, regular rhythm, no murmurs and peripheral pulses 2+ throughout GI normal to inspection, nondistended, normoactive bowel sounds, soft to palpation,non-tender and non-distended Back/Spine normal ROM Extremity normal to inspection, full ROM and no pedal edema Skin no rashes or lesions noted Neuro no focal motor deficits and no sensory deficits noted Speech: speech normal Psych mental status grossly normal Weight / BMI Weight Weight: 70.001 kg Body Mass Index (BMI) 27.3 ABG / Lab / Microbiology Data 02/19/23 05:58 02/21/23 03:55 Laboratory: Laboratory Results - last 24 hr 02/20/23 16:44: POC Glucose 353 H 02/20/23 21:09: POC Glucose 273 H 02/21/23 03:55: Sodium 137, Potassium 3.4 L, Chloride 107, Carbon Dioxide 22.0, Anion Gap 8, BUN 32 H, Creatinine 1.36 H, Estim Creat Clear Calc 28.38, Est GFR (MDRD) Af Amer 48 L, Est GFR (MDRD) Non-Af 39 L, BUN/Creatinine Ratio 23.5 H, Glucose 190 H, Calcium 8.7 02/21/23 06:49: POC Glucose 194 H 02/21/23 11:43: POC Glucose 221 H D/C Instructions Discharge Diet: No restrictions Weight Bearing Status: Full weight bearing Pending Tests Upon Discharge: None Please Follow Up With: Jose J Lezama, DO When: As needed Meaningful Use Info Meaningful Use Diagnoses (Choose all that apply): None applicable Discharge Plan Admission Admit Date/Time: 02/18/23 22:32 Primary Reason for Your Visit: Worsening weakness with falls Attending Provider: Clifford Lane Primary Care Provider: Jose J Lezama Consulting Providers: Lisset Cristobal Discharge Orders/Prescriptions Prescriptions: Continued cholecalciferol (vitamin D3) [Vitamin D3] 25 mcg (1,000 unit) capsule 25 mcg PO QODAY levothyroxine 50 mcg tablet 50 mcg PO DAILY oxybutynin chloride 10 MG tablet extended release 24hr 10 mg PO DAILY duloxetine 30 mg capsule,delayed release(DR/EC) 30 mg PO DAILY isosorbide mononitrate 60 mg tablet extended release 24 hr 60 mg PO DAILY aspirin [Adult Aspirin Regimen] 81 mg tablet,delayed release (DR/EC) 81 mg PO DAILY Jardiance 25 mg tablet 25 mg PO DAILY furosemide [Lasix] 20 mg tablet 20 mg PO DAILY Qty: 30 1RF gabapentin 300 mg capsule 300 mg PO TID Qty: 90 0RF ranolazine 500 mg tablet extended release 12 hr 500 mg PO Q12H metoprolol tartrate 25 mg tablet 25 mg PO DAILY memantine 5-10 mg tablets,dose pack See Protocol PO UD Protocol: Titrate Titrate Parameters: WEEK 1: TAKE ONE 5MG TABLET IN THE MORNING ONCE DAILY WEEK 2: TAKE ONE 5MG TABLET IN THE MORNING AND ONE 5MG TABLET AT BEDTIME WEEK 3: TAKE ONE 10MG TABLET IN THE MORNING AND ONE 5MG TABLET AT BEDTIME WEEK 4: TAKE ONE 10MG TABLET IN THE MORNING AND ONE 10 MG TABLET AT BEDTIME Patient Comments: PT IS CURRENTLY TAKING A MEMANTINE TITRATE DOSE PACK. TODAY (02/19/23) PT IS ON DAY 11 (WEEK 2) AND HAS HAD THEIR MORNING DOSE ONLY. Rx Instructions: WEEK 1: TAKE ONE 5MG TABLET IN THE MORNING ONCE DAILY WEEK 2: TAKE ONE 5MG TABLET IN THE MORNING AND ONE 5MG TABLET AT BEDTIME WEEK 3: TAKE ONE 10MG TABLET IN THE MORNING AND ONE 5MG TABLET AT BEDTIME WEEK 4: TAKE ONE 10MG TABLET IN THE MORNING AND ONE 10 MG TABLET AT BEDTIME atorvastatin 40 mg tablet 40 mg PO QHS Qty: 90 3RF hydralazine 100 mg tablet 100 mg PO TID Qty: 270 3RF nitroglycerin 0.4 mg tablet, sublingual 0.4 mg SUBLINGUAL Q5M PRN (Reason: chest pain) Qty: 25 3RF Rx Instructions: do not exceed 3 doses per episode (DME) FreeStyle Jong 2 [place] Misc See Rx Instructions .Route Qty: 1 0RF Rx Instructions: As directed insulin glargine [Lantus Solostar U-100 Insulin] 100 unit/mL (3 mL) insulin pen 27 unit subcut QPM Qty: 8.1 5RF Changed insulin lispro 100 unit/mL insulin pen 10 unit SUBCUT TID 30 Days Qty: 15 0RF Patient Comments: at meals Discontinued gabapentin 300 mg capsule 300 mg PO TID Patient Comments: 300mg in am, 300mg at lunch, and 600mg at HS insulin lispro [Humalog KwikPen Insulin] 100 unit/mL insulin pen 27 unit subcut TID PRN PRN (Reason: SLIDING SCALE) hydralazine 100 mg tablet 100 mg PO Q8H warfarin 4 mg tablet 4 mg PO DAILY insulin glargine [Lantus U-100 Insulin] 100 unit/mL solution 25 unit subcut DAILY Qty: 10 2RF insulin lispro [Humalog U-100 Insulin] 100 unit/mL solution 18 unit subcut TID Qty: 10 2RF isosorbide mononitrate 60 mg tablet extended release 24 hr 60 mg PO DAILY furosemide 40 mg tablet 40 mg PO .COMPLEX Qty: 180 3RF Hold Instructions: Resume on 12/10/22. Rx Instructions: 40 mg orally daily, may take 1 extra pill daily for weight gain, swelling, orshortness of breath; Referrals / Follow Up: Jose J Lezama DO [Primary Care Provider] - Disposition Disposition (needs filled in before D/C Order can be placed): Detention Facility Charges/Coding Visit Charges Inpatient E&M: 95251 Disch Hosp >30min 02/21/23 1352 <Electronically signed by Clifford Lane DO> Cosigner Signature (if applicable): CC: Dr. Clifford Lane DO; Dr. Jose J Lezama DO~ Signed [facility] Work Phone: 1(556) 104-861801-12-2024 Discharge summary Author Clifford Lane [facility] February 21, 2023 1:51pm Note Date/Time February 21, 2023 1 :52pm [facility] Medical Records Department [address] [place] [address] Transfer to [facility] MR#: [id number] Acct: [id number] Name: GLORIA PAUL Rep #:[id number] : 1935 87 From: Clifford infante DO PCP: Dr. Jose J Lezama DO Status:ADM FIDEL Certification of patient admission REQUIRED AT TIME OF ADMISSION. I CERTIFY THAT POST-HOSPITAL ECF SERVICES ARE REQUIRED TO BE GIVEN ON AN IN-PATIENT BASIS BECAUSE OF THE ABOVE NAMED PATIENT'S NEED FOR [facility] CARE ON A CONTINUING BASIS FOR THE CONDITION(S) FOR WHICH HE/SHE WAS RECEIVING IN-PATIENT HOSPITAL SERVICES PRIOR TO HIS/HER TRANSFER TO THE F. 02/21/23 1351<Electronically signed by Clifford Lane DO> Diet Diet Order/Speech Therapy: 02/18/23 23:20 Diet: Consistent Carb - Calorie Controlled Food consistency:: Regular Liquid Consistency:: Regular/Thin How many daily calories?: 1800 calorie Routine Orders/Code Status Code Status: DNRCC-A Therapies Weight Bearing: Weight bearing as tolerated Physical Therapy: Eval and Treat Occupational Therapy: Eval and Treat Problem/Diagnosis (1) Frequent falls: Status: Acute Code(s): R29.6 - Repeated falls (2) Weakness: Status: Acute Code(s): R53.1 - Weakness Plan Patient is an 87-year-old female who presented to [facility] ED on 02/18/2023 with worsening weakness with frequent falls at home. Hospital course as noted below. Discharged to fdc facility on 02/21 in stablecondition. 1. Debility and weakness with mechanical falls Notably with recent admission in January for similar concerns. Insurance denied SNF at that time for unclear reasons. Patient had near syncopal episode at home on day of admission along with fall, felt weak and lethargic afterwards. CT brain without contrast on admit nonacute. Chest x-ray normal, no evidence of UTI. ? PT/OT/case management followed. Fall precautions in place during admission. Held home Coumadin due to fall and will discontinue on discharge as noted below. Discharged to SNF. 2. 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 Baseline creatinine appears to be around 1.3- 1.6. Most likely prerenal SHA in setting of poor p.o. intake. S/p IV fluid resuscitation on admission. ? Creatinine 1.36 on day of discharge. Patient reported good urine output and improving p.o. intake during admission. 3. Paroxysmal A-fib ? Home meds of metoprolol and Coumadin. INR 2.3 on admit. Coumadin held on admit given history of recent falls. After discussion with family, opted to discontinue Coumadin on discharge given patient's risk of falls going forward. Okay to continue baby aspirin as an below. Continue home metoprolol. Chronic medical conditions: ? Type 2 diabetes mellitus with neuropathy: Lantus 25 units daily with sliding scale insulin with meals while inpatient. Continue home gabapentin. Restarted home insulin regimen and Jardiance on discharge. ? CAD s/p CABG in 2017 and stenting, hypertension, hyperlipidemia: Continue homeImdur, metoprolol, hydralazine, aspirin and statin. ? Hypothyroidism: Continue home Synthroid. ? History of CVA: Continue home aspirin and statin. ? Recent history of dementia with mood disorder: Continue home duloxetine. ? Overactive bladder: Continue home oxybutynin. Total clinical time spent by myself addressing the patient's discharge needs: 35minutes. Allergies/Procedures Done in Hospital Allergies morphine Allergy (Intermediate, Verified 02/11/23 10:07) Low blood pressure latex Allergy (Verified 02/11/23 10:07) Rash adhesive tape Adverse Reaction (Verified 02/11/23 10:07) Rash ticagrelor [From Brilinta] Adverse Reaction (Verified 02/11/23 10:07) Shortness of breath Procedures: EKG and - (CT head without contrast, chest x-ray) Type of Care/Length of Stay Estimated LOS: Convalescent Care Less Than 30 days Type of Care Needed: Skilled Rehab Potential: Fair Prognosis: Fair Additional Orders/Day of Discharge H&P will serve as current which was dated: 02/18/23 Day of Discharge: 02/21/23 Dietary and Speech Recommendations Dietitian Recommendations/Changes: Continue 1800CCD diet to manage blood sugars. Follow Up Care Please Follow Up With: Jose J Lezama DO When: As needed Discharge Plan Admission Admit Date/Time: 02/18/23 22:32 Primary Reason for Your Visit: Worsening weakness with falls Attending Provider: Clifford Lane Primary Care Provider: Jose J Lezama Consulting Providers: Lisset Cristobal Discharge Orders/Prescriptions Prescriptions: Continued cholecalciferol (vitamin D3) [Vitamin D3] 25 mcg (1,000 unit) capsule 25 mcg PO QODAY levothyroxine 50 mcg tablet 50 mcg PO DAILY oxybutynin chloride 10 MG tablet extended release 24hr 10 mg PO DAILY duloxetine 30 mg capsule,delayed release(DR/EC) 30 mg PO DAILY isosorbide mononitrate 60 mg tablet extended release 24 hr 60 mg PO DAILY aspirin [Adult Aspirin Regimen] 81 mg tablet,delayed release (DR/EC) 81 mg PO DAILY Jardiance 25 mg tablet 25 mg PO DAILY furosemide [Lasix] 20 mg tablet 20 mg PO DAILY Qty: 30 1RF gabapentin 300 mg capsule 300 mg PO TID Qty: 90 0RF ranolazine 500 mg tablet extended release 12 hr 500 mg PO Q12H metoprolol tartrate 25 mg tablet 25 mg PO DAILY memantine 5-10 mg tablets,dose pack See Protocol PO UD Protocol: Titrate Titrate Parameters: WEEK 1: TAKE ONE 5MG TABLET IN THE MORNING ONCE DAILY WEEK 2: TAKE ONE 5MG TABLET IN THE MORNING AND ONE 5MG TABLET AT BEDTIME WEEK 3: TAKE ONE 10MG TABLET IN THE MORNING AND ONE 5MG TABLET AT BEDTIME WEEK 4: TAKE ONE 10MG TABLET IN THE MORNING AND ONE 10 MG TABLET AT BEDTIME Patient Comments: PT IS CURRENTLY TAKING A MEMANTINE TITRATE DOSE PACK. TODAY (02/19/23) PT IS ON DAY 11 (WEEK 2) AND HAS HAD THEIR MORNING DOSE ONLY. Rx Instructions: WEEK 1: TAKE ONE 5MG TABLET IN THE MORNING ONCE DAILY WEEK 2: TAKE ONE 5MG TABLET IN THE MORNING AND ONE 5MG TABLET AT BEDTIME WEEK 3: TAKE ONE 10MG TABLET IN THE MORNING AND ONE 5MG TABLET AT BEDTIME WEEK 4: TAKE ONE 10MG TABLET IN THE MORNING AND ONE 10 MG TABLET AT BEDTIME atorvastatin 40 mg tablet 40 mg PO QHS Qty: 90 3RF hydralazine 100 mg tablet 100 mg PO TID Qty: 270 3RF nitroglycerin 0.4 mg tablet, sublingual 0.4 mg SUBLINGUAL Q5M PRN (Reason: chest pain) Qty: 25 3RF Rx Instructions: do not exceed 3 doses per episode (DME) FreeStyle Jong 2 [place] Misc See Rx Instructions .Route Qty: 1 0RF Rx Instructions: As directed insulin glargine [Lantus Solostar U-100 Insulin] 100 unit/mL (3 mL) insulin pen 27 unit subcut QPM Qty: 8.1 5RF Changed insulin lispro 100 unit/mL insulin pen 10 unit SUBCUT TID 30 Days Qty: 15 0RF Patient Comments: at meals Discontinued gabapentin 300 mg capsule 300 mg PO TID Patient Comments: 300mg in am, 300mg at lunch, and 600mg at HS insulin lispro [Humalog KwikPen Insulin] 100 unit/mL insulin pen 27 unit subcut TID PRN PRN (Reason: SLIDING SCALE) hydralazine 100 mg tablet 100 mg PO Q8H warfarin 4 mg tablet 4 mg PO DAILY insulin glargine [Lantus U-100 Insulin] 100 unit/mL solution 25 unit subcut DAILY Qty: 10 2RF insulin lispro [Humalog U-100 Insulin] 100 unit/mL solution 18 unit subcut TID Qty: 10 2RF isosorbide mononitrate 60 mg tablet extended release 24 hr 60 mg PO DAILY furosemide 40 mg tablet 40 mg PO .COMPLEX Qty: 180 3RF Hold Instructions: Resume on 12/10/22. Rx Instructions: 40 mg orally daily, may take 1 extra pill daily for weight gain, swelling, orshortness of breath; Referrals / Follow Up: Jose J Lezama DO [Primary Care Provider] - Disposition Disposition (needs filled in before D/C Order can be placed): Detention Facility Charges/Coding Visit Charges Inpatient E&M: 32371 Disch Hosp >30min 02/21/23 1351 <Electronically signed by Clifford Lane DO> Cosigner Signature (if applicable): CC: Dr. Jose J Lezama DO; Dr. Lisset Cristobal MD ~ [facility] Work Phone: 1(943) 128-923601-12-2024 Discharge summary [address] Clifford Lane [facility] February 21, 2023 1:47pm Note Date/Time February 21, 2023 1 :40pm [facility] Medical Records Department [address] [place] [address] Instructions for Home/Discharge Instructions 02/21/23 1339 MR#: [id number] Acct: [id number] Name: GLORIA PAUL Rep #:[id number] : 1935 87 From: Clifford infante DO PCP: Dr. Jose J Lezama DO Status:ADM FIDEL Discharge Instructions Diet Discharge Diet: No restrictions Activity Discharge Activity: No Restrictions Weight Bearing Status: Full weight bearing Follow Up Care Please Follow Up With: Jose J Lezama DO When: As needed Test Results: Test results from this visit will be discussed in further detail at your follow- up appointment, if applicable. Pending Tests Upon Discharge: None Discharge Plan Admission Admit Date/Time: 02/18/23 22:32 Primary Reason for Your Visit: Worsening weakness with falls Attending Provider: Clifford Lane Primary Care Provider: Jose J Lezama Consulting Providers: Lisset Cristobal Discharge Orders/Prescriptions Prescriptions: Continued cholecalciferol (vitamin D3) [Vitamin D3] 25 mcg (1,000 unit) capsule 25 mcg PO QODAY levothyroxine 50 mcg tablet 50 mcg PO DAILY oxybutynin chloride 10 MG tablet extended release 24hr 10 mg PO DAILY duloxetine 30 mg capsule,delayed release(DR/EC) 30 mg PO DAILY isosorbide mononitrate 60 mg tablet extended release 24 hr 60 mg PO DAILY aspirin [Adult Aspirin Regimen] 81 mg tablet,delayed release (DR/EC) 81 mg PO DAILY Jardiance 25 mg tablet 25 mg PO DAILY furosemide [Lasix] 20 mg tablet 20 mg PO DAILY Qty: 30 1RF gabapentin 300 mg capsule 300 mg PO TID Qty: 90 0RF ranolazine 500 mg tablet extended release 12 hr 500 mg PO Q12H metoprolol tartrate 25 mg tablet 25 mg PO DAILY memantine 5-10 mg tablets,dose pack See Protocol PO UD Protocol: Titrate Titrate Parameters: WEEK 1: TAKE ONE 5MG TABLET IN THE MORNING ONCE DAILY WEEK 2: TAKE ONE 5MG TABLET IN THE MORNING AND ONE 5MG TABLET AT BEDTIME WEEK 3: TAKE ONE 10MG TABLET IN THE MORNING AND ONE 5MG TABLET AT BEDTIME WEEK 4: TAKE ONE 10MG TABLET IN THE MORNING AND ONE 10 MG TABLET AT BEDTIME Patient Comments: PT IS CURRENTLY TAKING A MEMANTINE TITRATE DOSE PACK. TODAY (02/19/23) PT IS ON DAY 11 (WEEK 2) AND HAS HAD THEIR MORNING DOSE ONLY. Rx Instructions: WEEK 1: TAKE ONE 5MG TABLET IN THE MORNING ONCE DAILY WEEK 2: TAKE ONE 5MG TABLET IN THE MORNING AND ONE 5MG TABLET AT BEDTIME WEEK 3: TAKE ONE 10MG TABLET IN THE MORNING AND ONE 5MG TABLET AT BEDTIME WEEK 4: TAKE ONE 10MG TABLET IN THE MORNING AND ONE 10 MG TABLET AT BEDTIME atorvastatin 40 mg tablet 40 mg PO QHS Qty: 90 3RF hydralazine 100 mg tablet 100 mg PO TID Qty: 270 3RF nitroglycerin 0.4 mg tablet, sublingual 0.4 mg SUBLINGUAL Q5M PRN (Reason: chest pain) Qty: 25 3RF Rx Instructions: do not exceed 3 doses per episode (DME) FreeStyle Jong 2 [place] Misc See Rx Instructions .Route Qty: 1 0RF Rx Instructions: As directed insulin glargine [Lantus Solostar U-100 Insulin] 100 unit/mL (3 mL) insulin pen 27 unit subcut QPM Qty: 8.1 5RF Changed insulin lispro 100 unit/mL insulin pen 10 unit SUBCUT TID 30 Days Qty: 15 0RF Patient Comments: at meals Discontinued gabapentin 300 mg capsule 300 mg PO TID Patient Comments: 300mg in am, 300mg at lunch, and 600mg at HS insulin lispro [Humalog KwikPen Insulin] 100 unit/mL insulin pen 27 unit subcut TID PRN PRN (Reason: SLIDING SCALE) hydralazine 100 mg tablet 100 mg PO Q8H warfarin 4 mg tablet 4 mg PO DAILY insulin glargine [Lantus U-100 Insulin] 100 unit/mL solution 25 unit subcut DAILY Qty: 10 2RF insulin lispro [Humalog U-100 Insulin] 100 unit/mL solution 18 unit subcut TID Qty: 10 2RF isosorbide mononitrate 60 mg tablet extended release 24 hr 60 mg PO DAILY furosemide 40 mg tablet 40 mg PO .COMPLEX Qty: 180 3RF Hold Instructions: Resume on 12/10/22. Rx Instructions: 40 mg orally daily, may take 1 extra pill daily for weight gain, swelling, orshortness of breath; Referrals / Follow Up: Jose J Lezama DO [Primary Care Provider] - Disposition Disposition (needs filled in before D/C Order can be placed): Detention Facility 02/21/23 1347<Electronically signed by Clifford Lane DO>Clifford Lane DO CC: Dr. Jose J Lezama, ; Dr. Lisset Cristobal MD ~ Signed [facility] Work Phone: 1(144) 246-633801-11-2024 Progress note Author [facility] February 20, 2023 3:26pm Note Date/Time February 20, 2023 3 :26pm [facility] Medical Records Department [address] [place] [id number] Progress Note - Hospitalist 02/20/23 1523 MR#: [id number] Acct: [id number] Name: GLORIA PAUL Rep #:[id number] : 1935 87 From: Clifford infante DO PCP: Dr. Jose J Lezama DO Status:ADM FIDEL Location: [place] [address] Reason for Visit Reason for Visit: Diagnoses Other toxic encephalopathy (02/18/23) Acute kidney failure, unspecified (02/18/23) Repeated falls (02/18/23) Weakness (02/18/23) Unspecified fall, initial encounter (02/18/23) Subjective Subjective Patient seen at bedside this morning. Sitting comfortably in bedside chair, conversing normally, no acute distress. Patient was pleasant, denied any acute pain or discomfort currently. States she simply feels fatigued overall and not able to do much as far as getting up and moving around. She had worked with PT and OT shortly before my arrival and said she felt fairly weak working with them. No focal areas of weakness, just generalized fatigue. She is agreeable to going to a fdc facility on discharge. No other acute concerns. Objective Data Objective Data Vital Signs: Vital Signs Temp Pulse Resp BP Pulse Ox O2 Del Method O2 Flow Rate 97.6 F L 80 16 159/58 H 98 Room Air 2 02/20/23 11:00 02/20/23 11:04 02/20/23 11:00 02/20/23 11:00 02/20/23 11:00 02/20/23 12:26 02/20/23 08:15 Oxygen Flow Rate (L/min) 2 Oxygen Delivery Method Room Air Weight: 70.001 kg Body Mass Index (BMI) 27.3 Intake & Output: Intake and Output for Last 24 Hours 02/18/23 02/19/23 02/20/23 23:59 23:59 23:59 Intake Total 1510 / 1510 1026.67 / 1026.67 Output Total 850 / 850 500 / 500 Balance 660 / 660 526.67 / 526.67 Lab / Micro Data 02/19/23 05:58 02/20/23 08:00 Labs: Laboratory Results - last 24 hr 02/19/23 17:11: POC Glucose 355 H 02/19/23 20:21: POC Glucose 229 H 02/20/23 06:30: POC Glucose 230 H 02/20/23 08:00: Sodium 137, Potassium 3.6, Chloride 106, Carbon Dioxide 22.0, Anion Gap 9, BUN 40 H, Creatinine 1.76 H, Estim Creat Clear Calc 21.93, Est GFR (MDRD) Af Amer 35 L, Est GFR (MDRD) Non-Af 29 L, BUN/Creatinine Ratio 22.7 H, Glucose 257 H, Calcium 9.0 02/20/23 11:14: POC Glucose 416 H Physical Exam Const alert, oriented x3, no apparent distress and average body habitus Constitutional Narrative: Elderly female, sitting comfortably in bedside chair, conversing normally, no acute distress. General Appearance: cooperative and comfortable HEENT normocephalic, head/scalp atraumatic, hearing grossly normal bilaterally and nasal mucous membranes and turbinates normal Eyes PERRL, EOMs intact bilaterally and conjunctivae normal Neck full ROM, no lymphadenopathy and supple Lymph Lymphatic: no lymphadenopathy noted Chest inspection of chest normal Resp normal respiratory effort, normal air movement, no use of accessory muscles and clear to auscultation bilaterally Cardio regular rate, regular rhythm, no murmurs and peripheral pulses 2+ throughout GI normal to inspection, nondistended, normoactive bowel sounds, soft to palpation,non-tender and non-distended Back/Spine normal ROM Extremity normal to inspection, full ROM and no pedal edema Skin no rashes or lesions noted Neuro no focal motor deficits and no sensory deficits noted Speech: speech normal Psych mental status grossly normal Assessment & Plan Assessment/Plan (1) Frequent falls: (2) Weakness: PLAN: Plan Patient is an 87-year-old female who presented to [facility] ED on 02/18/2023 with worsening weakness with frequent falls at home. 1. Debility and weakness with mechanical falls Notably with recent admission in January for similar concerns. Insurance denied SNF at that time for unclear reasons. Patient had near syncopal episode at home on day of admission along with fall, felt weak and lethargic afterwards. CT brain without contrast on admit nonacute. Chest x-ray normal, no evidence of UTI. ? PT/OT/case management consulted. Fall precautions in place. Holding home Coumadin in setting of fall, okay for heparin subcu for DVT prophylaxis. 2. 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 Baseline creatinine appears to be around 1.5- 1.6. Most likely prerenal SHA in setting of poor p.o. intake. S/p IV fluid resuscitation on admission. ? Creatinine 1.76 on 02/20. Patient reports good urine output and improving p.o.intake. Continue to monitor BMP and urine output. 3. Paroxysmal A-fib ? Home meds of metoprolol and Coumadin. INR 2.3 on admit. Coumadin held on admit given history of recent falls. Will need to discuss with family prior to discharge on risk/benefits of restarting anticoagulation prior to discharge. Continue home metoprolol. Chronic medical conditions: ? Type 2 diabetes mellitus with neuropathy: Continue home Lantus 25 units daily with sliding scale insulin with meals. Continue home gabapentin. Holding home Jardiance. ? CAD s/p CABG in 2017 and stenting, hypertension, hyperlipidemia: Continue homeImdur, metoprolol, hydralazine, aspirin and statin. ? Hypothyroidism: Continue home Synthroid. ? History of CVA: Continue home aspirin and statin. ? Recent history of dementia with mood disorder: Continue home duloxetine. ? Overactive bladder: Continue home oxybutynin. DVT prophylaxis: Heparin subcu CODE STATUS: DNR CCA, DNI Expected disposition: SNF, 1 to 2 days Total clinical time spent by myself addressing the patient's medical issues, reviewing all the data, and collaborating with patient's care team: 35 minutes. Charges/Coding Visit Charges Inpatient E&M: 98049 Subs Hosp L2 02/20/23 1526 <Electronically signed by Clifford Lane DO> Cosigner Signature (if applicable): CC: ~ Signed [facility] Work Phone: 1(279) 581-513801-10-2024 History and physical note Author [facility] February 19, 2023 7:02pm Note Date/Time February 18, 2023 10 :12pm [facility] Medical Records Department [address] [place] [address] History & Physical Exam 02/18/232207 MR#: [id number] Acct: [id number] Name: GLORIA PAUL Rep #:[id number] : 1935 87 From: Lisset Cristobal MD PCP: Dr. Jose J Lezama, DO Status:ADM FIDEL Location: [place] [address] HPI - General General Date of Admission: 02/18/23 Date of Service: 02/18/23 Chief Complaint: mechanical fall, near syncope HPI Narrative GLORIA PAUL, is a 87 F with a PMH as outlined who presents via the ED on 02/18/2023 with a complaint of near syncope and mechanical fall. SHe was recently discharged from [facility] on 02/07/2023 after being admitted and managed for hyperglycemia due to poorly controlled diabetes as well as hypotension and SHA on CKD 3B. She was discharged home and found by her today very weak andlethargic in bed. She fell at around 1630 hours on the day of admission nad hit the right side of her head on the kitchen floor. She didnt lose consciousness. She subsequently went to take a nap and slept much longer than expected,so he went to wake her up. Patient had a near syncopal event so decided to bring her to the hospital. said he noticed her eyes rolled back in her head and she had shaking in all extremities. She complained of nausea and vomiting which started on the way to the hospital; however she denied any dizziness, palpitations, chest pain, focal weakness, numbness or tingling. Review of systems is otherwise negative. It must be stated that during her last admission, insurance didnt approve a SNF stay. She doesnt have a history of seizures. Daughter says patient was recently diagnosed with dementia and has been started on oral meds, the dosage of which is being titrated by her PCP. She has had numerous falls in the past at home, at least 13 times, per her daughter, and hit her head several times also Vitals in the ED were BP of 136/109, TX of 82, RR of 15 and oxygen sats os 94% on 2L of oxygen. CBC [id number] wbc of 10.9, Hb of 14 and platelets of 344. INR is 2.3. CHemistry showed sodium of 134 and potassium of 2.4. Cr was 2.11. CT brain showed chronic changes with no acute intracranial pathology. She is being admitted to be managed for debility and weakness due to recurrent mechanical falls. FORMERLY [facility], [facility] Medical History (HFpEF) heart failure with preserved ejection fraction Acute on chronic heart failure with preserved ejection fraction (HFpEF) Ambulates with cane Angina pectoris Arthritis Atherosclerotic heart disease of [place] coronary artery without angina pectoris Atrial fibrillation Atrial fibrillation Back pain BiPAP (biphasic positive airway pressure) dependence Broken ribs CAD (coronary artery disease) CAD (coronary artery disease) Cardiology follow-up encounter Carotid stenosis, left Chest pain Chronic anticoagulation Chronic renal failure, stage 3 (moderate) Congestive heart failure Congestive heart failure (CHF) Coronary artery disease CPAP (continuous positive airway pressure) dependence Debility Diabetes Diabetes Diabetes mellitus, type 2 Dietary restriction Difficulty swallowing Easy bruising Essential hypertension Fatigue Fibromyalgia GERD (gastroesophageal reflux disease) High cholesterol History of atrial fibrillation History of CHF (congestive heart failure) History of coronary artery disease History of echocardiogram History of pain when walking History of renal disease History of stress test History of stroke Hypertension Hypertension Hypertension Hypothyroidism Insulin dependent diabetes mellitus Intertrigo Kidney disease Kidney disease penitentiary current use of anticoagulant Lower GI bleeding Lumbosacral radiculopathy Microalbuminuria Migraine headache New onset atrial fibrillation Non-smoker Non-smoker Obstructive sleep apnea Osteoarthritis of left knee 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 PAF (paroxysmal atrial fibrillation) Post-menopausal Presence of stent in coronary artery (~12/11/18) Pulmonary HTN Pure hypercholesterolemia Renal cancer Shortness of breath on exertion Sleep apnea Sleep apnea Stroke/cerebrovascular accident Stroke/cerebrovascular accident Thyroid disease Vertigo Wears hearing aid Home Medications oxybutynin chloride 10 mg tablet,extended release 24 hr 10 mg PO DAILY BLADDER 03/23/19 [History Last Taken 07/18/22] levothyroxine 50 mcg tablet 50 mcg PO DAILY thyroid 05/10/20 [History Last Taken 07/18/22] cholecalciferol (vitamin D3) 25 mcg (1,000 unit) capsule (Vitamin D3) 25 mcg PO QODAY vitamin 06/20/21 [History Last Taken 07/17/22] insulin lispro 100 unit/mL subcutaneous pen (Humalog KwikPen (U-100) Insulin) 27unit subcut TID PRN PRN SLIDING SCALE 05/23/22 [History Last Taken 07/18/22] atorvastatin 40 mg tablet 40 mg PO QHS cholesterol #90 tabs 08/20/22 [Rx Last Taken Unknown] furosemide 40 mg tablet 40 mg PO .COMPLEX #180 tabs 08/20/22 [Rx Last Taken Unknown] hydralazine 100 mg tablet 100 mg PO TID #270 tabs 08/20/22 [Rx Last Taken Unknown] nitroglycerin 0.4 mg sublingual tablet 0.4 mg sublingual Q5M PRN chest pain #25 tabs 08/20/22 [Rx Last Taken Unknown] flash glucose scanning reader ([place] Jong 2 [place]) #1 ea 11/08/22 [Rx Last Taken Unknown] ranolazine 500 mg tablet,extended release,12 hr 500 mg PO Q12H 12/05/22 [History Last Taken Unknown] gabapentin 300 mg capsule 300 mg PO TID nerve pain 01/13/23 [History Last Taken Unknown] insulin glargine 100 unit/mL (3 mL) subcutaneous pen (Lantus Solostar U-100 Insulin) 27 unit (0.27 mL) subcut QPM #8.1 mL 01/30/23 [Rx Last Taken Unknown] aspirin 81 mg tablet,delayed release (Adult Aspirin Regimen) 81 mg PO DAILY 02/03/23 [History Last Taken Unknown] duloxetine 30 mg capsule,delayed release 30 mg PO DAILY DEPRESSION 02/03/23 [History Last Taken Unknown] hydralazine 100 mg tablet 100 mg PO Q8H HTN 02/03/23 [History Last Taken Unknown] isosorbide mononitrate 60 mg tablet,extended release 24 hr 60 mg PO DAILY 02/03/23 [History Last Taken Unknown] warfarin 4 mg tablet 4 mg PO DAILY stroke 02/03/23 [History Last Taken Unknown] empagliflozin 25 mg tablet (Jardiance) 25 mg PO DAILY diabetes 02/06/23 [History Last Taken Unknown] furosemide 20 mg tablet (Lasix) 20 mg PO DAILY #30 tabs 02/07/23 [Rx Last Taken Unknown] gabapentin 300 mg capsule 300 mg PO TID #90 caps 02/07/23 [Rx Last Taken Unknown] insulin glargine 100 unit/mL subcutaneous solution (Lantus U-100 Insulin) 25 unit (0.25 mL) subcut DAILY #10 mL 02/07/23 [Rx Last Taken Unknown] insulin lispro 100 unit/mL subcutaneous solution (Humalog U-100 Insulin) 18 unit(0.18 mL) subcut TID #10 mL 02/07/23 [Rx Last Taken Unknown] insulin lispro 100 unit/mL subcutaneous pen 15 unit subcut TID 02/18/23 [History Last Taken Unknown] isosorbide mononitrate 60 mg tablet,extended release 24 hr 60 mg PO DAILY 02/18/23 [History Last Taken Unknown] metoprolol tartrate 25 mg tablet 25 mg PO DAILY 02/18/23 [History Last Taken Unknown] Allergy/AdvReac Type Severity Reaction Status Date / Time morphine Allergy Intermediate Low blood Verified 02/11/23 10:07 pressure latex Allergy Rash Verified 02/11/23 10:07 adhesive tape AdvReac Rash Verified 02/11/23 10:07 ticagrelor [From Brilinta] AdvReac Shortness Verified 02/11/23 10:07 of breath Family History Father Heart disease Mother Breast cancer Diabetes Heart disease Surgical History H/O hemorrhoidectomy History of appendectomy History of arthroscopic knee surgery History of back surgery History of cardiac catheterization History of cholecystectomy History of coronary artery bypass graft x 3 (~04/08/16) History of coronary artery stent placement History of coronary artery stent placement History of hysterectomy History of knee replacement procedure of right knee History of right and left heart catheterization (LHC) (~08/10/19) History of right inguinal hernia repair Hx of CABG Hx of CABG Hx of hand surgery Postlaminectomy syndrome of lumbar region Presence of coronary angioplasty implant and graft (~12/11/18) Social History household members: spouse housing: house Smoking Status: Never smoker alcohol intake: never substance use type: does not use caffeine: No ROS ROS Narrative ROS mainly from daughter and Review of Systems ROS Unobtainable: due to encephalopathy Constitutional Constitutional: Reports fatigue, malaise and weakness; Denies anorexia or changein weight Eyes Eyes: Denies change in vision ENT HEENT: Denies dysphagia or headache(s) Cardiovascular Cardiovascular: Denies chest pain, edema, orthopnea, palpitations, paroxysmal nocturnal dyspnea or syncope Respiratory/Chest Respiratory/Chest: Denies cough, shortness of breath at rest, shortness of breath with exertion or wheezing Gastrointestinal Gastrointestinal: Denies nausea or vomiting Genitourinary Genitourinary: Denies dysuria Musculoskeletal Musculoskeletal: Denies joint pain or muscle weakness Neurologic Neurologic: Reports confusion and weakness; Denies dizziness, focal weakness, headache(s), numbness, seizures, tingling or tremor(s) Endocrine Endocrinology: Denies change in body appearance Vital Signs Vital Signs Vital Signs: 02/18/23 19:05 02/18/23 19:36 02/18/23 20:04 Temperature 96.7 F L Temperature Source Temporal Pulse Rate 81 78 78 Respiratory Rate 18 14 16 Respiratory Effort Respiratory Depth Respiratory Pattern Blood Pressure 141/72 H 142/72 H 131/73 H Blood Pressure Mean 95 95 92 Pulse Ox 89 88 93 Oxygen Delivery Method Room Air Room Air Room Air Oxygen Flow Rate (L/min) 02/18/23 20:25 02/18/23 20:33 02/18/23 21:00 Temperature Temperature Source Pulse Rate 79 80 Respiratory Rate 15 14 Respiratory Effort Normal Respiratory Depth Shallow Respiratory Pattern Normal Blood Pressure 123/66 H 121/66 H Blood Pressure Mean 85 84 Pulse Ox 93 93 Oxygen Delivery Method Nasal Cannula Room Air Oxygen Flow Rate (L/min) 2 02/18/23 22:00 Temperature Temperature Source Pulse Rate 82 Respiratory Rate 15 Respiratory Effort Respiratory Depth Respiratory Pattern Blood Pressure 136/109 H Blood Pressure Mean 118 Pulse Ox 94 Oxygen Delivery Method Nasal Cannula Oxygen Flow Rate (L/min) 2 Weight Weight: 154 lb 5.177 oz Body Mass Index (BMI) 27.3 Physical Exam Const alert Orientation / Consciousness: confused and lethargic HEENT normocephalic and oropharynx normal Mouth: dry mucous membranes Eyes PERRL and EOMs intact bilaterally Neck no lymphadenopathy and supple Lymph Lymphatic: no lymphadenopathy noted and no lymphedema noted Resp Resp Narrative: mildly diminished breath sounds bibasally , no wheezes or crackles. on 3L of oxygen by nasal canula Cardio regular rate, regular rhythm, S1 normal heart sound, S2 normal heart sound and no murmurs GI normal to inspection, nondistended, normoactive bowel sounds and soft to palpation Extremity normal capillary refill, no clubbing, cyanosis or edema and no calf tenderness General Extremity: no tenderness to palpation of joints or extremities Skin General Skin Exam: no breakdown Neuro CN's II-XII intact bilaterally Motor Exam: general weakness Psych Psych Narrative: confused Mood & Affect: flat affect Results Lab / Micro Data 02/18/23 19:25 02/18/23 19:25 Labs: Laboratory Results - last 24 hr 02/18/23 19:25: WBC 10.9, RBC 5.08, Hgb 14.0, Hct 44.2, MCV 87.0, MCH 27.6, MCHC31.7 L, RDW Std Deviation 48.0 H, RDW Coeff of Laquita 15.3 H, Plt Count 344, MPV 11.7, Immature Gran % (Auto) 0.500, Neut % (Auto) 59.7, Lymph % (Auto) 28.4, Lanier % (Auto) 8.2, Eos % (Auto) 2.5, Baso % (Auto) 0.7, Absolute Neuts (auto) 6.5, Absolute Lymphs (auto) 3.09, Nucleated RBC % 0, PT 25.5 H, INR 2.3, APTT 38.1 H, Sodium 134 L, Potassium 3.4 L, Chloride 99, Carbon Dioxide 27.0, Anion Gap 8, BUN 37 H, Creatinine 2.11 H, Estim Creat Clear Calc 18.29, Est GFR (MDRD)Af Amer 29 L, Est GFR (MDRD) Non-Af 24 L, BUN/Creatinine Ratio 17.5, Glucose 214H, Calcium 9.8, Total Bilirubin 0.40, AST 11 L, ALT 14, Alkaline Phosphatase 125H, Total Protein 8.9 H, Albumin 4.0, Globulin 4.9 H, Albumin/Globulin Ratio 0.8 L, Lipase < 10 L Imagaing Radiology Impression Brain CT 02/18/23 19:22 IMPRESSION: Chronic changes as described with no acute intracranial hemorrhage or space-occupying lesion. Electronically Signed: Jenniffer Winter MD at 19:58 EST , Chest X-Ray 02/18/23 19:42 IMPRESSION: Minimal bilateral atelectasis as described. Otherwise no acute cardiopulmonary disease. Electronically Signed: Jenniffer Winter MD at 19:56 EST , Assessment & Plan Assessment/Plan (1) Toxic metabolic encephalopathy: (2) Falls: (3) SHA (acute kidney injury): PLAN: Plan #Debility and weakness due to mechanical falls * patient has been falling frequently at home. 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 Hydrate gently with IVF and trend. #Paroxysmal afib: * on metoprolol. Hold coumadin due to history of mechanical falls. INR is 2.3. * patient's daughter and counseled that in light of her frequent falls, hitting her head in the process, they would need to consider stopping the coumadin permanently. They were counseled about the risks vs benefits of her being on coumadin whilst having frequent falls. Coumadin is on hold now. They couldnt make a decision today and so this will have to be addressed again by primary team tomorrow. #Type 2 diabetes mellitus * on lantus. ISS. Accuchecks ACHS * #CAD: s/p CABT in 2017 and PCI. on imdur, metoprolol, aspirin and statin #HYpertension; on metoprolol and hydralazine. #Hyperlipidemia: on statin #Hypothyroidism: on synthroid #Histoyr of CVA: on aspirin and statin. #Dementia: * remains confused. NOt on any meds per EMR. * Daughter however says she was recently started on meds and this dosage is being titrated by her PCP. DVT prophylaxis; coumadin on hold. SCDs Code status: * Patient counseled extensively about different types of CODE STATUS including full code, DNR CCA and DNR CCA. Patient elects to be DNRCCA. Total scvc-ni-ctul time 16 minutes. Total time spent on evaluation and management of patient, reviewing chart, discussing plan with patient and his , discussion with nursing and ancillarystaff as well as documentation: 77 mins Charges/Coding Visit Charges Inpatient E&M: 32244 Init Hosp L3 Procedures Hospitalists Procedures: 06440 Advncd Care Plan 30 Min 02/19/23 190 <Electronically signed by Lisset Cristobal MD> Cosigner Signature (if applicable): CC: Dr. Jose J Lezama DO; Dr. Lisset Cristobal MD~ Signed [facility] Work Phone: 1(268) 729-416401-10-2024 Progress note Author [facility] February 19, 2023 4:59pm Note Date/Time February 19, 2023 4 :35pm [facility] Medical Records Department [address] [place] [address] Progress Note - Hospitalist 02/19/23 1632 MR#: [id number] Acct: [id number] Name: GLORIA PAUL Rep #:[id number] : 1935 87 From: Clifford infante DO PCP: Dr. Jose J Lezama DO Status:ADM FIDEL Location: [facility] Subjective Subjective Patient seen at bedside this morning in the ED. Patient was sleeping on my arrival to the room. On awakening, patient was lying comfortably in bed and in no acute distress. States that she feels slightly improved since coming to the ED after receiving IV fluids. She has not tried getting out of bed this morningyet. She denies any acute pain or discomfort. Was answering my questions appropriately. No other acute concerns. Objective Data Objective Data Vital Signs: Vital Signs Temp Pulse Resp BP Pulse Ox O2 Del Method O2 Flow Rate 97.4 F L 97 16 146/70 H 94 Room Air 3 02/19/23 11:00 02/19/23 13:01 02/19/23 11:00 02/19/23 11:00 02/19/23 14:41 02/19/23 14:41 02/19/23 06:30 Oxygen Flow Rate (L/min) 3 Oxygen Delivery Method Room Air Weight: 70.001 kg Body Mass Index (BMI) 27.3 Intake & Output: Intake and Output for Last 24 Hours 02/17/23 02/18/23 02/19/23 23:59 23:59 23:59 Intake Total 390 / 390 Output Total 850 / 850 Balance -460 / -460 Lab / Micro Data 02/19/23 05:58 02/19/23 05:58 Labs: Laboratory Results - last 24 hr 02/18/23 19:25: WBC 10.9, RBC 5.08, Hgb 14.0, Hct 44.2, MCV 87.0, MCH 27.6, MCHC31.7 L, RDW Std Deviation 48.0 H, RDW Coeff of Laquita 15.3 H, Plt Count 344, MPV 11.7, Immature Gran % (Auto) 0.500, Neut % (Auto) 59.7, Lymph % (Auto) 28.4, Lanier % (Auto) 8.2, Eos % (Auto) 2.5, Baso % (Auto) 0.7, Absolute Neuts (auto) 6.5, Absolute Lymphs (auto) 3.09, Nucleated RBC % 0, PT 25.5 H, INR 2.3, APTT 38.1 H, Sodium 134 L, Potassium 3.4 L, Chloride 99, Carbon Dioxide 27.0, Anion Gap 8, BUN 37 H, Creatinine 2.11 H, Estim Creat Clear Calc 18.29, Est GFR (MDRD)Af Amer 29 L, Est GFR (MDRD) Non-Af 24 L, BUN/Creatinine Ratio 17.5, Glucose 214H, Calcium 9.8, Total Bilirubin 0.40, AST 11 L, ALT 14, Alkaline Phosphatase 125H, Total Protein 8.9 H, Albumin 4.0, Globulin 4.9 H, Albumin/Globulin Ratio 0.8 L, Lipase < 10 L 02/19/23 05:58: WBC 9.1, RBC 4.74, Hgb 13.4, Hct 41.9, MCV 88.4, MCH 28.3, MCHC 32.0, RDW Std Deviation 49.9 H, RDW Coeff of Laquita 15.5 H, Plt Count 268, MPV 11.1, Immature Gran % (Auto) 0.300, Neut % (Auto) 61.1, Lymph % (Auto) 26.8, Lanier % (Auto) 8.3, Eos % (Auto) 2.6, Baso % (Auto) 0.9, Absolute Neuts (auto) 5.6, Absolute Lymphs (auto) 2.44, Nucleated RBC % 0, Sodium 134 L, Potassium 3.9, Chloride 103, Carbon Dioxide 21.0, Anion Gap 10, BUN 38 H, Creatinine 2.08 H, Estim Creat Clear Calc 18.56, Est GFR (MDRD) Af Amer 29 L, Est GFR (MDRD) Non-Af 24 L, BUN/Creatinine Ratio 18.3, Glucose 274 H, Calcium 8.6, Magnesium 2.1, Total Bilirubin 0.50, AST 15, ALT 18, Alkaline Phosphatase 106, Troponin I High Sens 22, Total Protein 7.7, Albumin 3.4, Globulin 4.3 H, Albumin/Globulin Ratio 0.8 L 02/19/23 07:35: Troponin I High Sens 17 02/19/23 07:58: POC Glucose 279 H 02/19/23 12:41: POC Glucose 392 H 02/19/23 12:45: Troponin I High Sens 13 Radiography Diagnostic Testing: Radiology Impression Brain CT 02/18/23 19:22 IMPRESSION: Chronic changes as described with no acute intracranial hemorrhage or space-occupying lesion. Electronically Signed: Jenniffer Winter MD at 19:58 EST , Chest X-Ray 02/18/23 19:42 IMPRESSION: Minimal bilateral atelectasis as described. Otherwise no acute cardiopulmonary disease. Electronically Signed: Jenniffer Winter MD at 19:56 EST Reading Location ID and State: [address] [place] [address] , Service support , Physical Exam Const alert, oriented x3, no apparent distress and average body habitus Constitutional Narrative: Elderly female, chronically ill-appearing, lying comfortably in bed, conversing normally, no acute distress. General Appearance: cooperative and comfortable HEENT normocephalic, head/scalp atraumatic, hearing grossly normal bilaterally and nasal mucous membranes and turbinates normal Eyes PERRL, EOMs intact bilaterally and conjunctivae normal Neck full ROM, no lymphadenopathy and supple Lymph Lymphatic: no lymphadenopathy noted Chest inspection of chest normal Resp normal respiratory effort, normal air movement, no use of accessory muscles and clear to auscultation bilaterally Cardio regular rate, regular rhythm, no murmurs and peripheral pulses 2+ throughout GI normal to inspection, nondistended, normoactive bowel sounds, soft to palpation,non-tender and non-distended Back/Spine normal ROM Extremity normal to inspection, full ROM and no pedal edema Skin no rashes or lesions noted Neuro no focal motor deficits and no sensory deficits noted Speech: speech normal Psych mental status grossly normal Assessment & Plan Assessment/Plan (1) Frequent falls: (2) Weakness: PLAN: Plan Patient is an 87-year-old female who presented to [facility] ED on 02/18/2023 with worsening weakness with frequent falls at home. 1. Debility and weakness with mechanical falls Notably with recent admission in January for similar concerns. Insurance denied SNF at that time for unclear reasons. Patient had near syncopal episode at home on day of admission along with fall, felt weak and lethargic afterwards. CT brain without contrast on admit nonacute. Chest x-ray normal, no evidence of UTI. ? PT/OT/case management consulted. Fall precautions in place. Holding home Coumadin in setting of fall, okay for heparin subcu for DVT prophylaxis for now. 2. SHA on CKD stage IIIb Creatinine 2.11 on admit, BUN 37. Baseline creatinine appears to be around 1.5- 1.6. Most likely prerenal SHA in setting of poor p.o. intake. ? Creatinine 2.08 on 02/19 after IV fluid administration. Monitor BMP and urine output. Encouraged p.o. intake, can consider further IV fluids as needed. 3. Paroxysmal A-fib ? Home meds of metoprolol and Coumadin. INR 2.3 on admit. Coumadin held on admit given history of recent falls. Will need to discuss with family prior to discharge on risk/benefits of restarting anticoagulation. Continue home metoprolol. Chronic medical conditions: ? Type 2 diabetes mellitus with neuropathy: Continue home Lantus 25 units daily with sliding scale insulin with meals. Continue home gabapentin. Holding home Jardiance. ? CAD s/p CABG in 2017 and stenting, hypertension, hyperlipidemia: Continue homeImdur, metoprolol, hydralazine, aspirin and statin. ? Hypothyroidism: Continue home Synthroid. ? History of CVA: Continue home aspirin and statin. ? Recent history of dementia with mood disorder: Continue home duloxetine. ? Overactive bladder: Continue home oxybutynin. DVT prophylaxis: Heparin subcu CODE STATUS: DNR CCA, DNI Expected disposition: TBD Total clinical time spent by myself addressing the patient's medical issues, reviewing all the data, and collaborating with patient's care team: 35 minutes. Charges/Coding Visit Charges Inpatient E&M: 23619 Subs Hosp L2 02/19/23 4744 <Electronically signed by Clifford Lane DO> Cosigner Signature (if applicable): CC: ~ Signed [facility] Work Phone: 1(224) 581-420201-10-2024 Discharge summary Author Familia Anderson [facility] February 18, 2023 11:44pm Note Date/Time February 18, 2023 7: 25pm [facility] Medical Records Department [address] [place] [address] Emergency Department Summary 02/18/23 MR#: [id number] Acct: [id number] Name: GLORIA PAUL Rep #:[id number] : 1935 87 From: Familia Rivera PCP: Dr. Jose J Lezama, DO Status:ADM FIDEL Location: [facility] HPI History of Present Illness Chief Complaint: Fall Informant: patient, spouse/S.O. and EMS Narrative Narrative: 87-year-old female presenting to the emergency room chief complaint of head injury. History of present illness 87-year-old female around 1630 hrs. today reportedly fell striking the right side of her head on tiled floor. No reportedloss of consciousness. states that she felt tired and went and took a nap. She slept for longer than normal and he woke her up. He was attempting tohelp her walk when she had a reported syncope/near syncopal episode. Patient developed nausea vomiting and route to the hospital. Patient currently taking aspirin, warfarin and possibly Plavix. states that she was just in the hospital and they changed a lot of her medications around and he is not 100% sure of what she is taking currently. Patient was admitted around [place]. She is supposed to go to [facility] later this week because of frequent falls. [facility] Medical History (HFpEF) heart failure with preserved ejection fraction Acute on chronic heart failure with preserved ejection fraction (HFpEF) Ambulates with cane Angina pectoris Arthritis Atherosclerotic heart disease of [place] coronary artery without angina pectoris Atrial fibrillation Atrial fibrillation Back pain BiPAP (biphasic positive airway pressure) dependence Broken ribs CAD (coronary artery disease) CAD (coronary artery disease) Cardiology follow-up encounter Carotid stenosis, left Chest pain Chronic anticoagulation Chronic renal failure, stage 3 (moderate) Congestive heart failure Congestive heart failure (CHF) Coronary artery disease CPAP (continuous positive airway pressure) dependence Debility Diabetes Diabetes Diabetes mellitus, type 2 Dietary restriction Difficulty swallowing Easy bruising Essential hypertension Fatigue Fibromyalgia GERD (gastroesophageal reflux disease) High cholesterol History of atrial fibrillation History of CHF (congestive heart failure) History of coronary artery disease History of echocardiogram History of pain when walking History of renal disease History of stress test History of stroke Hypertension Hypertension Hypertension Hypothyroidism Insulin dependent diabetes mellitus Intertrigo Kidney disease 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 Lower GI bleeding Lumbosacral radiculopathy Microalbuminuria Migraine headache New onset atrial fibrillation Non-smoker Non-smoker Obstructive sleep apnea Osteoarthritis of left knee 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 PAF (paroxysmal atrial fibrillation) Post-menopausal Presence of stent in coronary artery (~12/11/18) Pulmonary HTN Pure hypercholesterolemia Renal cancer Shortness of breath on exertion Sleep apnea Sleep apnea Stroke/cerebrovascular accident Stroke/cerebrovascular accident Thyroid disease Vertigo Wears hearing aid Home Medications oxybutynin chloride 10 mg tablet,extended release 24 hr 10 mg PO DAILY BLADDER 03/23/19 [History Last Taken 07/18/22] levothyroxine 50 mcg tablet 50 mcg PO DAILY thyroid 05/10/20 [History Last Taken 07/18/22] cholecalciferol (vitamin D3) 25 mcg (1,000 unit) capsule (Vitamin D3) 25 mcg PO QODAY vitamin 06/20/21 [History Last Taken 07/17/22] insulin lispro 100 unit/mL subcutaneous pen (Humalog KwikPen (U-100) Insulin) 27unit subcut TID PRN PRN SLIDING SCALE 05/23/22 [History Last Taken 07/18/22] atorvastatin 40 mg tablet 40 mg PO QHS cholesterol #90 tabs 08/20/22 [Rx Last Taken Unknown] furosemide 40 mg tablet 40 mg PO .COMPLEX #180 tabs 08/20/22 [Rx Last Taken Unknown] hydralazine 100 mg tablet 100 mg PO TID #270 tabs 08/20/22 [Rx Last Taken Unknown] nitroglycerin 0.4 mg sublingual tablet 0.4 mg sublingual Q5M PRN chest pain #25 tabs 08/20/22 [Rx Last Taken Unknown] flash glucose scanning reader (Picmonic Jong 2 [place]) #1 ea 11/08/22 [Rx Last Taken Unknown] ranolazine 500 mg tablet,extended release,12 hr 500 mg PO Q12H 12/05/22 [History Last Taken Unknown] gabapentin 300 mg capsule 300 mg PO TID nerve pain 01/13/23 [History Last Taken Unknown] insulin glargine 100 unit/mL (3 mL) subcutaneous pen (Lantus Solostar U-100 Insulin) 27 unit (0.27 mL) subcut QPM #8.1 mL 01/30/23 [Rx Last Taken Unknown] aspirin 81 mg tablet,delayed release (Adult Aspirin Regimen) 81 mg PO DAILY 02/03/23 [History Last Taken Unknown] duloxetine 30 mg capsule,delayed release 30 mg PO DAILY DEPRESSION 02/03/23 [History Last Taken Unknown] hydralazine 100 mg tablet 100 mg PO Q8H HTN 02/03/23 [History Last Taken Unknown] isosorbide mononitrate 60 mg tablet,extended release 24 hr 60 mg PO DAILY 02/03/23 [History Last Taken Unknown] warfarin 4 mg tablet 4 mg PO DAILY stroke 02/03/23 [History Last Taken Unknown] empagliflozin 25 mg tablet (Jardiance) 25 mg PO DAILY diabetes 02/06/23 [History Last Taken Unknown] furosemide 20 mg tablet (Lasix) 20 mg PO DAILY #30 tabs 02/07/23 [Rx Last Taken Unknown] gabapentin 300 mg capsule 300 mg PO TID #90 caps 02/07/23 [Rx Last Taken Unknown] insulin glargine 100 unit/mL subcutaneous solution (Lantus U-100 Insulin) 25 unit (0.25 mL) subcut DAILY #10 mL 02/07/23 [Rx Last Taken Unknown] insulin lispro 100 unit/mL subcutaneous solution (Humalog U-100 Insulin) 18 unit(0.18 mL) subcut TID #10 mL 02/07/23 [Rx Last Taken Unknown] insulin lispro 100 unit/mL subcutaneous pen 15 unit subcut TID 02/18/23 [History Last Taken Unknown] isosorbide mononitrate 60 mg tablet,extended release 24 hr 60 mg PO DAILY 02/18/23 [History Last Taken Unknown] metoprolol tartrate 25 mg tablet 25 mg PO DAILY 02/18/23 [History Last Taken Unknown] Allergy/AdvReac Type Severity Reaction Status Date / Time morphine Allergy Intermediate Low blood Verified 02/11/23 10:07 pressure latex Allergy Rash Verified 02/11/23 10:07 adhesive tape AdvReac Rash Verified 02/11/23 10:07 ticagrelor [From Brilinta] AdvReac Shortness Verified 02/11/23 10:07 of breath Family History Father Heart disease Mother Breast cancer Diabetes Heart disease Surgical History H/O hemorrhoidectomy History of appendectomy History of arthroscopic knee surgery History of back surgery History of cardiac catheterization History of cholecystectomy History of coronary artery bypass graft x 3 (~04/08/16) History of coronary artery stent placement History of coronary artery stent placement History of hysterectomy History of knee replacement procedure of right knee History of right and left heart catheterization (LHC) (~08/10/19) History of right inguinal hernia repair Hx of CABG Hx of CABG Hx of hand surgery Postlaminectomy syndrome of lumbar region Presence of coronary angioplasty implant and graft (~12/11/18) Social History household members: spouse housing: house Smoking Status: Never smoker alcohol intake: never substance use type: does not use caffeine: No ROS ROS ED Constitutional Constitutional ED: Denies chills or weight loss Eyes Eyes: Denies change in vision or diplopia ENT ENT ED: Denies ear pain, rhinorrhea or sore throat Cardiovascular Cardiovascular: Reports other Details: sycope ; Denies chest pain, orthopnea, palpitations or racing heartbeat Respiratory/Chest Respiratory/Chest: Denies cough, dyspnea or orthopnea Gastrointestinal Gastrointestinal: Reports nausea and vomiting; Denies abdominal pain or diarrhea Genitourinary Genitourinary ED: Denies dysuria, hematuria or urinary frequency Musculoskeletal Musculoskeletal: Denies arthralgias, back pain, myalgias or neck pain Integumentary Denies abscess or rash Neurologic Neurologic: Reports headache(s); Denies weakness Psychiatric Psychiatric: Denies anxiety, depression, suicidal ideation or suicidal thoughts Endocrine Endocrinology: Denies polydipsia, polyphagia or polyuria Allergic/Immunologic Allergic/Immunologic ED: Denies mouth swelling, tongue swelling or urticaria EXAM Physical Exam Const Vital Signs: 02/18/23 19:05 02/18/23 19:36 02/18/23 20:04 Temperature 96.7 F L Temperature Source Temporal Pulse Rate 81 78 78 Respiratory Rate 18 14 16 Respiratory Effort Respiratory Depth Respiratory Pattern Blood Pressure 141/72 H 142/72 H 131/73 H Blood Pressure Mean 95 95 92 Pulse Ox 89 88 93 Oxygen Delivery Method Room Air Room Air Room Air Oxygen Flow Rate (L/min) 02/18/23 20:25 02/18/23 20:33 02/18/23 21:00 Temperature Temperature Source Pulse Rate 79 80 Respiratory Rate 15 14 Respiratory Effort Normal Respiratory Depth Shallow Respiratory Pattern Normal Blood Pressure 123/66 H 121/66 H Blood Pressure Mean 85 84 Pulse Ox 93 93 Oxygen Delivery Method Nasal Cannula Room Air Oxygen Flow Rate (L/min) 2 02/18/23 22:00 Temperature Temperature Source Pulse Rate 82 Respiratory Rate 15 Respiratory Effort Respiratory Depth Respiratory Pattern Blood Pressure 136/109 H Blood Pressure Mean 118 Pulse Ox 94 Oxygen Delivery Method Nasal Cannula Oxygen Flow Rate (L/min) 2 Positive well nourished, well developed and obese General Appearance ED: well developed Nutritional Appearance: obese HEENT Reports normocephalic, head/scalp atraumatic and moist mucous membranes Eyes PERRL and EOMs intact bilaterally Neck no lymphadenopathy, supple and no JVD Resp normal respiratory effort and clear to auscultation bilaterally Cardio regular rate, regular rhythm and no murmurs GI normal to inspection, nondistended, normoactive bowel sounds and non-tender Palpation: soft Back/Spine no CVA tenderness and normal ROM Extremity normal to inspection General Extremety ED: Negative for edema General Extremity: Negative for edema Neuro oriented x3 and CN's II-XII intact bilaterally Sensorium / Orientation: lethargic Motor Exam: strength 5/5 throughout Psych mental status grossly normal Mood & Affect: Negative for depressed or tearful Skin no rashes or lesions noted and no wounds MDM MDM MDM Narrative Medical decision making narrative: Patient's vital signs have remained stable. White count 10.9 hemoglobin 14. INR 2.3. Potassium 3.4 sodium 134. Creatinine 2.11 with a BUN of 37. Lipase less than 10. Alk phos 125. Glucose 214. CT of the brain is negative for hemorrhage. EKG is a normal sinus rhythm. Independent interpretation of the chest x-ray is no acute process. Essentially negative workup except for CKD with a creatinine slightly above baseline. I asked nursing to go and see if thepatient could get up and attempt to walk. Family states she is too tired and confused. Patient with frequent falls is likely that she has not had a significant injury yet. She supposed to go to a [facility] later this week. I will speak with the hospitalist regarding admission see if we can get her placed sooner. History & Record Review Discussion w/independent historian: EMS personnel, Patient and Family Lab Data Attestation: I reviewed the patient's lab results. Labs: Laboratory Results - last 24 hr 02/18/23 19:25 WBC 10.9 RBC 5.08 Hgb 14.0 Hct 44.2 MCV 87.0 MCH 27.6 MCHC 31.7 L RDW Std Deviation 48.0 H RDW Coeff of Laquita 15.3 H Plt Count 344 MPV 11.7 Immature Gran % (Auto) 0.500 Neut % (Auto) 59.7 Lymph % (Auto) 28.4 Lanier % (Auto) 8.2 Eos % (Auto) 2.5 Baso % (Auto) 0.7 Absolute Neuts (auto) 6.5 Absolute Lymphs (auto) 3.09 Nucleated RBC % 0 PT 25.5 H INR 2.3 APTT 38.1 H Sodium 134 L Potassium 3.4 L Chloride 99 Carbon Dioxide 27.0 Anion Gap 8 BUN 37 H Creatinine 2.11 H Estim Creat Clear Calc 18.29 Est GFR (MDRD) Af Amer 29 L Est GFR (MDRD) Non-Af 24 L BUN/Creatinine Ratio 17.5 Glucose 214 H Calcium 9.8 Total Bilirubin 0.40 AST 11 L ALT 14 Alkaline Phosphatase 125 H Total Protein 8.9 H Albumin 4.0 Globulin 4.9 H Albumin/Globulin Ratio 0.8 L Lipase < 10 L Radiography Diagnostic Testing: Clinical Impression(s) from Imaging Studies Brain CT 02/18/23 19:22 IMPRESSION: Chronic changes as described with no acute intracranial hemorrhage or space-occupying lesion. Electronically Signed: Jenniffer Winter MD at 19:58 EST , Chest X-Ray 02/18/23 19:42 IMPRESSION: Minimal bilateral atelectasis as described. Otherwise no acute cardiopulmonary disease. Electronically Signed: Jenniffer Winter MD at 19:56 EST , EKG Initial EKG: Attestation: I personally reviewed and interpreted this EKG as follows: Comments: Normal sinus rhythm with a ventricular rate of 78 bpm. Management Discussion w/another healthcare provider: Hospitalist Discharge Plan Dx/Rx/DC Orders Clinical Impression: Head injury, Diabetes mellitus, type 2, Anticoagulant long-term use, CAD (coronary artery disease), Weakness, Vomiting, Frequent falls Disposition Disposition: Acute Care Hospital [facility] What to do if you have Problems For any increased pain, shortness of breath, bleeding, nausea or vomiting, chestpain, or any unexpected problems, contact your Primary Care Provider. Call [facility] ([phone]) or report to the closest Emergency Room. Call 911 if necessary. 02/18/23 2344 <Electronically signed by Familia Anderson DO> Cosigner Signature (if applicable): CC: Dr. Jose J Lezama DO ~ Signed [facility] Work Phone: [phone]) 951-868510-28-2023 Discharge summary Author Bernardino Briceno [facility] December 07, 2022 12:14pm Note Date/Time December 07, 2022 1 2:11pm [facility] Medical Records Department [address] [place] [address] Transfer to [facility] MR#: [id number] Acct: [id number] Name: GLORIA PAUL Rep #:[id number] : 1935 87 From: Bernardino diez MD PCP: Dr. Jose J Lezama DO Status:ADM FIDEL Certification of patient admission REQUIRED AT TIME OF ADMISSION. I CERTIFY THAT POST-HOSPITAL F SERVICES ARE REQUIRED TO BE GIVEN ON AN IN-PATIENT BASIS BECAUSE OF THE ABOVE NAMED PATIENT'S NEED FOR [facility]CI CARE ON A CONTINUING BASIS FOR THE CONDITION(S) FOR WHICH HE/SHE WAS RECEIVING IN-PATIENT HOSPITAL SERVICES PRIOR TO HIS/HER TRANSFER TO THE [facility]. 12/07/22 1214<Electronically signed by Bernardino Briceno MD> Diet Diet Order/Speech Therapy: 12/05/22 22:34 Diet: Consistent Carb - Calorie Controlled Food consistency:: Regular Liquid Consistency:: Regular/Thin How many daily calories?: 1600 calorie Routine Orders/Code Status Routine Lab Work: CBC and BMP Code Status: Full Code Wound(s) Right temporal: Wound Type: Laceration Therapies Physical Therapy: Eval and Treat Occupational Therapy: Eval and Treat Problem/Diagnosis (1) Fall: Status: Acute Code(s): W19.XXXA - Unspecified fall, initial encounter (2) CKD (chronic kidney disease) stage 4, GFR 15-29 ml/min: Status: Chronic Code(s): N18.4 - Chronic kidney disease, stage 4 (severe) (3) Debility: Status: Acute Code(s): R53.81 - Other malaise (4) Hypercoagulable state due to atrial fibrillation: Status: Acute Code(s): D68.69 - Other thrombophilia; I48.91 - Unspecified atrial fibrillation Plan 1. Debility with weakness and recent fall/SHA on CKD 4 ? Continue with IV fluids ? PT/OT for evaluation ? Consult case management for discharge planning ? We will monitor renal function it is improving 2. HTN/HLD/A-fib/CAD status post CABG and stent/chronic diastolic CHF ? Blood pressure currently stable, can resume her home blood pressure medications ? Continue with her home Lipitor ? We will hold her home Lasix given her SHA and placed on a little bit of fluids ? Continue with Coumadin monitor INRs 3. DM2 with neuropathy ? Accu-Cheks ACHS ? Continue with insulin ? We will monitor adjustments as necessary ? We will dose adjust gabapentin 4. Anxiety/depression ? Stable ? Continue with Cymbalta DVT: Coumadin Allergies/Procedures Done in Hospital Allergies latex Allergy (Verified 12/05/22 16:14) Rash adhesive tape Adverse Reaction (Verified 12/05/22 16:14) Rash ticagrelor [From Brilinta] Adverse Reaction (Verified 12/05/22 16:14) Shortness of breath Procedures: None Type of Care/Length of Stay Estimated LOS: Convalescent Care Less Than 30 days Type of Care Needed: Skilled Rehab Potential: Good Prognosis: Good Additional Orders/Day of Discharge Day of Discharge: 12/07/22 Dietary and Speech Recommendations Dietitian Recommendations/Changes: will adjust diet to 1600 calorie controlled/consistent CHO; will monitor PO intake, labs, and adjust diet/add ONS as indicated Discharge Plan Admission Admit Date/Time: 12/05/22 19:50 Attending Provider: Bernardino Briceno Primary Care Provider: Jose J Lezama Consulting Providers: Carlos Liu Discharge Orders/Prescriptions Prescriptions: Continued aspirin [Adult Low Dose Aspirin] 81 mg tablet,delayed release (DR/EC) 81 mg PO DAILY gabapentin 300 mg capsule 600 mg PO TID cholecalciferol (vitamin D3) [Vitamin D3] 25 mcg (1,000 unit) capsule 25 mcg PO QODAY levothyroxine 50 mcg tablet 50 mcg PO DAILY duloxetine 30 mg capsule,delayed release(DR/EC) 30 mg PO DAILY diphenhydramine-acetaminophen [Tylenol PM Extra Strength] 25-500 mg tablet 1 tab PO QHS insulin glargine [Lantus Solostar U-100 Insulin] 100 unit/mL (3 mL) insulin pen 27 unit subcut QPM isosorbide mononitrate 60 mg tablet extended release 24 hr 60 mg PO BID Qty: 180 3RF oxybutynin chloride 10 MG tablet extended release 24hr 10 mg PO DAILY insulin lispro [Humalog KwikPen Insulin] 100 unit/mL insulin pen 27 unit subcut TID PRN PRN (Reason: SLIDING SCALE) ranolazine 500 mg tablet extended release 12 hr 500 mg PO Q12H atorvastatin 40 mg tablet 40 mg PO QHS Qty: 90 3RF hydralazine 100 mg tablet 100 mg PO TID Qty: 270 3RF nitroglycerin 0.4 mg tablet, sublingual 0.4 mg SUBLINGUAL Q5M PRN (Reason: chest pain) Qty: 25 3RF Rx Instructions: do not exceed 3 doses per episode warfarin 4 mg tablet 4 mg PO .COMPLEX Qty: 180 3RF Protocol: Dose Management Condition: Friday Dose/Route: 6 mg Instruction: 1.5 x 4 mg tablets Condition: Friday Dose/Route: 4 mg Instruction: 1 x 4 mg tablet Condition: Friday Dose/Route: 4 mg Instruction: 1 x 4 mg tablet Condition: Friday Dose/Route: 4 mg Instruction: 1 x 4 mg tablet Condition: Dose/Route: 4 mg Instruction: 1 x 4 mg tablet Condition: Friday Dose/Route: 4 mg Instruction: 1 x 4 mg tablet Condition: Friday Dose/Route: 6 mg Instruction: 1.5 x 4 mg tablets Protocol Text: Adjustment Start Date: Friday08/20/22 INR Value: 2.5 INR Date: 08/05/22 Recheck Date: 08/26/22 Rx Instructions: 4 mg orally daily Friday through Friday ; and take 1and a half tablets (6mg) on Sat and Sun; or as directed; metoprolol tartrate 50 mg tablet 50 mg PO BID Qty: 180 3RF (DME) FreeStyle Jong 2 [place] Misc See Rx Instructions .Route Qty: 1 0RF Rx Instructions: As directed Held furosemide 40 mg tablet 40 mg PO .COMPLEX Qty: 180 3RF Hold Instructions: Resume on 12/10/22. Rx Instructions: 40 mg orally daily, may take 1 extra pill daily for weight gain, swelling, orshortness of breath; Referrals / Follow Up: Jose J Lezama DO [Primary Care Provider] - Disposition Disposition (needs filled in before D/C Order can be placed): Detention Facility (1) Fall Qualifiers: Encounter type: subsequent encounter Qualified Code(s): W19.XXXD - Unspecified fall, subsequent encounter (4) Hypercoagulable state due to atrial fibrillation Qualifiers: Atrial fibrillation type: paroxysmal Qualified Code(s): D68.69 - Other thrombophilia; I48.0 - Paroxysmal atrial fibrillation 12/07/22 1214 <Electronically signed by Bernardino Briceno MD> Cosigner Signature (if applicable): CC: Dr. Carlos Liu MD; Dr. Jose J Lezama DO ~ [facility] Work Phone: 1(735) 564-112610-27-2023 Progress note Author Bernardinokyle Briceno [facility] December 06, 2022 12:58pm Note Date/Time December 06, 2022 1 0:10am [facility] Medical Records Department [address] [place] [address] Progress Note - Hospitalist 12/06/22 1008 MR#: [id number] Acct: [id number] Name: GLORIA PAUL Karol Rep #:[id number] : 1935 87 From: Bernardino diez MD PCP: Dr. Jose J Lezama DO Status:ADM FIDEL Location: [place] [address] Subjective Subjective Resting comfortably, no issues overnight Objective Data Objective Data Vital Signs: Vital Signs Temp Pulse Resp BP Pulse Ox O2 Del Method O2 Flow Rate 98.2 F 90 18 134/55 H 94 Nasal Cannula 4 12/06/22 09:21 12/06/22 09:21 12/06/22 09:21 12/06/22 09:21 12/06/22 04:30 12/06/22 09:21 12/06/22 09:21 Oxygen Flow Rate (L/min) 4 Oxygen Delivery Method Nasal Cannula Weight: 150 lb 2.157 oz Body Mass Index (BMI) 26.6 Intake & Output: Intake and Output for Last 24 Hours 12/05/22 12/06/22 12/07/22 03:59 03:59 03:59 Intake Total 500 / 500 1732.5 / 1732.5 Balance 500 / 500 1732.5 / 1732.5 Lab / Micro Data 12/06/22 06:13 12/06/22 06:13 Labs: Laboratory Results - last 24 hr 12/05/22 17:10: WBC 12.8 H, RBC 4.28, Hgb 12.7, Hct 39.3, MCV 91.8, MCH 29.7, MCHC 32.3, RDW Std Deviation 46.4 H, RDW Coeff of Laquita 13.8, Plt Count 186, MPV 12.5 H, Immature Gran % (Auto) 0.500, Neut % (Auto) 79.9 H, Lymph % (Auto) 10.6 L, Lanier % (Auto) 7.8, Eos % (Auto) 0.9, Baso % (Auto) 0.3, Absolute Neuts (auto)10.2 H, Absolute Lymphs (auto) 1.36, Nucleated RBC % 0, PT 15.5 H, INR 1.2, Sodium 130 L, Potassium 4.2, Chloride 95 L, Carbon Dioxide 24.0, Anion Gap 11, BUN 58 H, Creatinine 2.66 H, Estim Creat Clear Calc 12.79, Est GFR (MDRD) Af Amer 22 L, Est GFR (MDRD) Non-Af 18 L, BUN/Creatinine Ratio 21.8 H, Glucose 528 H*, Calcium 8.9, Lipase < 10 L 12/05/22 18:06: Acetone Level NEGATIVE 12/05/22 19:15: Urine Color Yellow, Urine Clarity Clear, Urine pH 6.0, Ur Specific [place] 1.030, Urine Protein 30 H, Urine Glucose (UA) 1000 H, Urine Ketones Negative, Urine Occult Blood Negative, Urine Nitrite Negative, Urine Bilirubin Negative, Urine Urobilinogen Normal, Ur Leukocyte Esterase 100 H, Urine RBC 0 SEEN, Urine WBC 5- 10 SEEN, Ur Squamous Epith Cells 0-5 SEEN, Urine Bacteria RARE, Urine Mucus 0 SEEN, Urine Yeast 1+, POC Glucose 462 H* 12/05/22 23:39: POC Glucose 221 H 12/06/22 06:13: WBC 9.5, RBC 3.60 L, Hgb 10.8 L, Hct 33.7 L, MCV 93.6, MCH 30.0,MCHC 32.0, RDW Std Deviation 47.5 H, RDW Coeff of Laquita 13.9, Plt Count 176, MPV 12.8 H, Immature Gran % (Auto) 0.400, Neut % (Auto) 68.2, Lymph % (Auto) 17.8 L,Lanier % (Auto) 10.0, Eos % (Auto) 3.2, Baso % (Auto) 0.4, Absolute Neuts (auto) 6.5, Absolute Lymphs (auto) 1.70, Nucleated RBC % 0, Sodium 134 L, Potassium 3.2L, Chloride 105, Carbon Dioxide 25.0, Anion Gap 4 L, BUN 49 H, Creatinine 1.98 H, Estim Creat Clear Calc 17.18, Est GFR (MDRD) Af Amer 31 L, Est GFR (MDRD) Non-Af 25 L, BUN/Creatinine Ratio 24.7 H, Glucose 220 H, Calcium 8.5 12/06/22 07:18: PT 17.2 H, INR 1.4 ABG Data ABG results: ABG 12/05/22 18:12 Specimen Type JUAN ALBERTO Sample Site Not entered O2 % 2.0 VBG pH 7.36 VBG pO2 35 VBG HCO3 24 VBG Total CO2 26 VBG O2 Sat (Calc) 65 VBG Base Excess -1 POC Mix VBG pCO2 Pt Tmp 42.7 O2 Delivery Device Cannula Radiography Diagnostic Testing: Radiology Impression Brain CT 12/05/22 17:35 IMPRESSION: No acute intracranial pathology of the brain. Electronically Signed: Morales Rivera DO at 18:13 EDT Reading Location ID and State: [facility] / [place] Tel [phone], Service support , Chest X-Ray 12/05/22 17:37 IMPRESSION: Left basilar atelectasis. Electronically Signed: Morales Rivera DO at 18:28 EDT Reading Location ID and State: [facility] / [place] Tel [phone], Service support , Rhythm Strip Rhythm Strip: Sinus Rhythm Rate: 69 Ectopy: None Physical Exam Narrative General: Alert, Oriented x3, Cooperative, No apparent distress HEENT: Atraumatic, PERRLA, EOMI, Normocephalic Oral: Moist Mucosa Neck: Supple, No JVD Lungs: Diminished, Normal air movement, No rhonchi, No wheeze, No rales Cardiovascular: Regular rate, Regular Rhythm, Normal S1, Normal S2, No murmurs Abdomen: Soft, Non Tender, Non-Distended, No Hepato-splenomegaly Extremities: No edema, Capillary Refill Less than 3 Seconds Skin: Facial laceration on the right forehead Musculoskeletal: No Tenderness to Palpation of Joints or Extremities Neurological: Moves all extremities, Sensory exam intact to light touch and pain Psych/Mental Status: Normal Affect, Appropriate Assessment & Plan Assessment/Plan (1) Fall: QUALIFIERS: Encounter type: subsequent encounter Qualified Code(s): W19.XXXD - Unspecified fall, subsequent encounter (2) CKD (chronic kidney disease) stage 4, GFR 15-29 ml/min: (3) Debility: (4) Hypercoagulable state due to atrial fibrillation: QUALIFIERS: Atrial fibrillation type: paroxysmal Qualified Code(s): D68.69 - Other thrombophilia; I48.0 - Paroxysmal atrial fibrillation PLAN: Plan 1. Debility with weakness and recent fall/SHA on CKD 4 ? Continue with IV fluids ? PT/OT for evaluation ? Consult case management for discharge planning ? We will monitor renal function it is improving 2. HTN/HLD/A-fib/CAD status post CABG and stent/chronic diastolic CHF ? Blood pressure currently stable, can resume her home blood pressure medications ? Continue with her home Lipitor ? We will hold her home Lasix given her SHA and placed on a little bit of fluids ? Continue with Coumadin monitor INRs 3. DM2 with neuropathy ? Accu-Cheks ACHS ? Continue with insulin ? We will monitor adjustments as necessary ? We will dose adjust gabapentin 4. Anxiety/depression ? Stable ? Continue with Cymbalta DVT: Coumadin Charges/Coding Visit Charges Inpatient E&M: 66911 Subs Hosp L2 12/06/22 1258 <Electronically signed by Bernaridno Briceno MD> Cosigner Signature (if applicable): CC: ~ Signed [facility] Work Phone: [phone]) 690-809910-27-2023 Discharge summary Author Hortencia Prado [facility] December 06, 2022 1:07am Note Date/Time December 05, 2022 5 :42pm [facility] Medical Records Department [address] [place] [address] Emergency Department Summary 12/05/22 MR#: [id number] Acct: [id number] Name: GLORIA PAUL Rep #:[id number] : 1935 87 From: Hortencia Rivera PCP: Dr. Jose J Lezama, Status:ADM FIDEL Location: [place] [address] HPI HPI - Fall History of Present Illness Chief Complaint: Head Injury Informant: patient and spouse/S.O. Narrative Narrative: Patient is an 87-year-old female with history of heart failure with preserved ejection fraction, paroxysmal atrial fibrillation (on long-term Coumadin therapy), CKD, diabetes mellitus type 2 (unsure what recent blood sugars have been), chronic respiratory failure that wears 2 L of oxygen at night and with exertion. She is presenting with increased weakness, worsening balance and increased confusion. at the bedside. He states he can even get her up to go to the bathroom now. He is interested in finding her placement at [facility] because he does not think she is safe at home anymore. Of note patient was seen in our ER 2 nights ago for a fall. She tells me she does not know how she fell but apparently she fell in her kitchen. She did sustain forehead laceration requiring suture repair. Her symptoms have been worse sincethis fall per the . She is also complained of significant headache sincethe fall. Patient was subtherapeutic on her Coumadin at her last ER visit [facility] Medical History (Updated 12/06/22 @ 01:[address] Hortencia Prado, ) (HFpEF) heart failure with preserved ejection fraction Acute on chronic heart failure with preserved ejection fraction (HFpEF) Ambulates with cane Angina pectoris Arthritis Atherosclerotic heart disease of [place] coronary artery without angina pectoris Atrial fibrillation Back pain Broken ribs CAD (coronary artery disease) CAD (coronary artery disease) Cardiology follow-up encounter Carotid stenosis, left Chest pain Chronic anticoagulation Chronic renal failure, stage 3 (moderate) Congestive heart failure Coronary artery disease CPAP (continuous positive airway pressure) dependence Debility Diabetes Diabetes mellitus, type 2 Dietary restriction Difficulty swallowing Easy bruising Essential hypertension Fatigue Fibromyalgia GERD (gastroesophageal reflux disease) High cholesterol History of atrial fibrillation History of CHF (congestive heart failure) History of coronary artery disease History of echocardiogram History of pain when walking History of renal disease History of stress test History of stroke Hypertension Hypertension Hypothyroidism Insulin dependent diabetes mellitus Intertrigo 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 Lower GI bleeding Lumbosacral radiculopathy Microalbuminuria Migraine headache New onset atrial fibrillation Non-smoker Obstructive sleep apnea Osteoarthritis of left knee 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 PAF (paroxysmal atrial fibrillation) Post-menopausal Presence of stent in coronary artery (~12/11/18) Pulmonary HTN Pure hypercholesterolemia Renal cancer Shortness of breath on exertion Sleep apnea Stroke/cerebrovascular accident Thyroid disease Vertigo Wears hearing aid Home Medications aspirin 81 mg tablet,delayed release (Adult Low Dose Aspirin) 81 mg PO DAILY heart health 01/01/19 [History Last Taken 07/18/22] oxybutynin chloride 10 mg tablet,extended release 24 hr 10 mg PO DAILY BLADDER 03/23/19 [History Last Taken 07/18/22] levothyroxine 50 mcg tablet 50 mcg PO DAILY thyroid 05/10/20 [History Last Taken 07/18/22] cholecalciferol (vitamin D3) 25 mcg (1,000 unit) capsule (Vitamin D3) 25 mcg PO QODAY vitamin 06/20/21 [History Last Taken 07/17/22] duloxetine 30 mg capsule,delayed release 30 mg PO DAILY 02/28/22 [History Last Taken 07/18/22] diphenhydramine 25 mg-acetaminophen 500 mg tablet (Tylenol PM Extra Strength) 1 tab PO QHS 04/18/22 [History Last Taken Unknown] insulin lispro 100 unit/mL subcutaneous pen (Humalog KwikPen (U-100) Insulin) 27unit subcut TID PRN PRN SLIDING SCALE 05/23/22 [History Last Taken 07/18/22] insulin glargine 100 unit/mL (3 mL) subcutaneous pen (Lantus Solostar U-100 Insulin) 27 unit subcut QPM 06/06/22 [History Last Taken 07/17/22] atorvastatin 40 mg tablet 40 mg PO QHS cholesterol #90 tabs 08/20/22 [Rx Last Taken Unknown] furosemide 40 mg tablet 40 mg PO .COMPLEX #180 tabs 08/20/22 [Rx Last Taken Unknown] hydralazine 100 mg tablet 100 mg PO TID #270 tabs 08/20/22 [Rx Last Taken Unknown] nitroglycerin 0.4 mg sublingual tablet 0.4 mg sublingual Q5M PRN chest pain #25 tabs 08/20/22 [Rx Last Taken Unknown] warfarin 4 mg tablet 4 mg PO .COMPLEX #180 tabs 08/20/22 [Rx Last Taken Unknown] gabapentin 300 mg capsule 600 mg PO TID nerve pain 11/01/22 [History Last Taken Unknown] isosorbide mononitrate 60 mg tablet,extended release 24 hr 60 mg PO BID #180 tabs 11/01/22 [Rx Last Taken Unknown] metoprolol tartrate 50 mg tablet 50 mg PO BID #180 tabs 11/04/22 [Rx Last Taken Unknown] flash glucose scanning reader (Picmon[employer] Jong 2 [place]) #1 ea 11/08/22 [Rx Last Taken Unknown] ranolazine 500 mg tablet,extended release,12 hr 500 mg PO Q12H 12/05/22 [History Last Taken Unknown] Allergy/AdvReac Type Severity Reaction Status Date / Time latex Allergy Rash Verified 12/05/22 16:14 adhesive tape AdvReac Rash Verified 12/05/22 16:14 ticagrelor [From Brilinta] AdvReac Shortness Verified 12/05/22 16:14 of breath Family History Father Heart disease Mother Breast cancer Diabetes Heart disease Surgical History H/O hemorrhoidectomy History of appendectomy History of arthroscopic knee surgery History of back surgery History of cardiac catheterization History of cholecystectomy History of coronary artery bypass graft x 3 (~04/08/16) History of coronary artery stent placement History of hysterectomy History of knee replacement procedure of right knee History of right and left heart catheterization (LHC) (~08/10/19) History of right inguinal hernia repair Hx of CABG Hx of hand surgery Postlaminectomy syndrome of lumbar region Presence of coronary angioplasty implant and graft (~12/11/18) Social History household members: spouse housing: house Smoking Status: Never smoker alcohol intake: never substance use type: does not use caffeine: No ROS ROS ED Constitutional Constitutional ED: Denies chills or fever(s) Eyes Eyes: Denies change in vision ENT ENT ED: Denies sore throat Cardiovascular Cardiovascular: Denies chest pain Respiratory/Chest Respiratory/Chest: Reports dyspnea on exertion; Denies cough Gastrointestinal Gastrointestinal: Denies abdominal pain, nausea or vomiting Genitourinary Genitourinary ED: Reports urinary frequency; Denies dysuria Musculoskeletal Musculoskeletal: Reports arthralgias and myalgias Integumentary Reports other Details: right forehead laceration Neurologic Neurologic: Reports headache(s) and weakness; Denies paresthesias Hematologic/Lymphatic Hematologic/Lymphatic: Reports easy bleeding and easy bruising EXAM Physical Exam Const Vital Signs: 12/05/22 16:14 12/05/22 16:19 12/05/22 16:23 Temperature 97 F L Temperature Source Temporal Pulse Rate 71 Respiratory Rate 18 Respiratory Effort Normal Non-Labored Respiratory Depth Normal Respiratory Pattern Normal Blood Pressure 176/89 H Blood Pressure Mean 118 Pulse Ox 91 87 Oxygen Delivery Method Room Air Room Air Oxygen Flow Rate (L/min) 12/05/22 16:23 12/05/22 18:53 Temperature Temperature Source Pulse Rate 68 Respiratory Rate 18 Respiratory Effort Respiratory Depth Respiratory Pattern Blood Pressure 152/57 H Blood Pressure Mean 88 Pulse Ox 91 95 Oxygen Delivery Method Nasal Cannula Room Air Oxygen Flow Rate (L/min) 2 Positive well nourished and well developed General Appearance ED: well developed and NAD HEENT Reports TM's normal bilaterally HEENT Narrative: Right upper forehead laceration with [address]. Appears to be healing appropriately with no secondary signs of infection. Very dry mucosal membranes trauma Eyes PERRL and EOMs intact bilaterally Neck full ROM and supple Chest Wall inspection of chest normal and palpation of chest normal Resp normal respiratory effort Resp Narrative: Mildly diminished breath sounds throughout Cardio regular rate, regular rhythm and no murmurs GI non-tender and non-distended Extremity Extremity Narrative: No deformity or injury of the extremities appreciated Neuro moves all extremities, no focal motor deficits and no sensory deficits noted Sensorium / Orientation: oriented to person and oriented to place Motor Exam: general weakness Psych mental status grossly normal and thought process normal Skin Skin Narrative: Right upper forehead laceration?healing, see above Trauma: laceration MDM MDM MDM Narrative Medical decision making narrative: Patient presents with worsening balance, confusion and difficulty with ADLs after a fall that occurred 2 days ago. She sustained a head laceration. At that time she did have a CT of her brain which was negative and received laceration repair. Laceration is healing well. She is off any focal neurologicdeficits. also reports that she has had a general decline and they are interested in placement at [facility]. Clinically patient appears dehydrated. She is a mild leukocytosis of 12.8 which is nonspecific and there is no obvious source of infection. Urinalysis is probably more consistent with contamination will be sent for culture. Her blood glucose is elevated at 528 with a normal anion gap and normal bicarb. Acetone and VBG are added on which are not consistent with DKA or decompensated hyperglycemia. Patient is given 500 cc bolus that she does have a history of heart failure. In addition she is still subtherapeutic on her INR with level of 1.2. She does not complain of anyacute respiratory symptoms and I have a low suspicion for acute stroke or pulmonary emboli/sequelae of embolic disease. Patient does have an elevation of her creatinine of 2.66.Her creatinine was 1.41a week ago and I suspect she has acute dehydration/SHA however it does look likepatient is prone to this does have fluctuations of her kidney function. Urinalysis is most consistent with contamination but does show rare bacteria and5-10 white blood cells. We will send for culture but defer treatment at this time. Patient and do not feel that she is safe to go home and I am inclined toagree with this. She will be admitted for further medical evaluation and IV fluids. She is given 10 units of insulin in the ER as well. Case is discussed with my physician, Dr. Liu. Patient continues to complain of headache in the ER. She is given Tylenol with no improvement. Is then given a dose of fentanyl with improvement of headache. Differential includes delayed intracranial hemorrhage, encephalopathy, concussion, urinary tract infection, DKA, poorly controlled diabetes mellitus with hyperglycemia, SHA History & Record Review Discussion w/independent historian: Patient and Significant other Lab Data Attestation: I reviewed the patient's lab results. Labs: Laboratory Results - last 24 hr 12/05/22 12/05/22 12/05/22 17:10 18:06 19:15 WBC 12.8 H RBC 4.28 Hgb 12.7 Hct 39.3 MCV 91.8 MCH 29.7 MCHC 32.3 RDW Std Deviation 46.4 H RDW Coeff of Laquita 13.8 Plt Count 186 MPV 12.5 H Immature Gran % (Auto) 0.500 Neut % (Auto) 79.9 H Lymph % (Auto) 10.6 L Lanier % (Auto) 7.8 Eos % (Auto) 0.9 Baso % (Auto) 0.3 Absolute Neuts (auto) 10.2 H Absolute Lymphs (auto) 1.36 Nucleated RBC % 0 PT 15.5 H INR 1.2 Sodium 130 L Potassium 4.2 Chloride 95 L Carbon Dioxide 24.0 Anion Gap 11 BUN 58 H Creatinine 2.66 H Estim Creat Clear Calc 12.79 Est GFR (MDRD) Af Amer 22 L Est GFR (MDRD) Non-Af 18 L BUN/Creatinine Ratio 21.8 H Glucose 528 H* Calcium 8.9 Lipase < 10 L Urine Color Yellow Urine Clarity Clear Urine pH 6.0 Ur Specific [place] 1.030 Urine Protein 30 H Urine Glucose (UA) 1000 H Urine Ketones Negative Urine Occult Blood Negative Urine Nitrite Negative Urine Bilirubin Negative Urine Urobilinogen Normal Ur Leukocyte Esterase 100 H Urine RBC 0 SEEN Urine WBC 5-10 SEEN Ur Squamous Epith Cells 0-5 SEEN Urine Bacteria RARE Urine Mucus 0 SEEN Urine Yeast 1+ Acetone Level NEGATIVE POC Glucose 462 H* ABG Data ABG results: ABG 12/05/22 18:12 Specimen Type JUAN ALBERTO Sample Site Not entered O2 % 2.0 VBG pH 7.36 VBG pO2 35 VBG HCO3 24 VBG Total CO2 26 VBG O2 Sat (Calc) 65 VBG Base Excess -1 POC Mix VBG pCO2 Pt Tmp 42.7 O2 Delivery Device Cannula Radiography Chest X-Ray - ED: 1 View, Read by ED Physician, Read by Radiologist and No AcuteDisease Diagnostic Testing: Clinical Impression(s) from Imaging Studies Brain CT 12/05/22 17:35 IMPRESSION: No acute intracranial pathology of the brain. Electronically Signed: Morales Rivera DO at 18:13 EDT , Chest X-Ray 12/05/22 17:37 IMPRESSION: Left basilar atelectasis. Electronically Signed: Morales Rivera DO at 18:28 EDT , Rhythm Strip Rhythm Strip: Sinus Rhythm Rate: 69 Ectopy: None EKG Initial EKG: Attestation: I personally reviewed and interpreted this EKG as follows: Interpretation: Sinus Rhythm Comments: Normal sinus rhythm at a rate of 69 bpm Normal axis Normal intervals Nonspecific ST and T wave changes Prior EKG tracings: available for review Prior: Unchanged Differential Diagnosis Differential Diagnosis: Delayed bleed, intracranial hemorrhage Why less likely: No evidence on imaging Discharge Plan Dx/Rx/DC Orders Clinical Impression: SHA (acute kidney injury), Hyperglycemia due to diabetes mellitus, Debility, Dehydration, Headache, Subtherapeutic international normalized ratio (INR) Disposition Disposition: Acute Care [facility] Discharge Date/Time: 12/05/22 22:21 What to do if you have Problems For any increased pain, shortness of breath, bleeding, nausea or vomiting, chestpain, or any unexpected problems, contact your Primary Care Provider. Call [facility] ([phone]) or report to the closest Emergency Room. Call 911 if necessary. 12/06/22 010 <Electronically signed by Hortencia Prado DO> Cosigner Signature (if applicable): CC: Dr. Jose J Lezama DO ~ Signed [facility] Work Phone: [phone] 929-835110-26-2023 History and physical note Author Carlos Liu [facility] December 05, 2022 8:48pm Note Date/Time December 05, 2022 7 :50pm [facility] Medical Records Department [address] [place] [address] [place] [address] H&P Exam - Hospitalist 12/05/22 1950 MR#: [id number] Acct: [id number] Name: GLORIA PAUL Rep #:[id number] : 1935 87 From: Carlos Liu MD PCP: Dr. Jose J Lezama, DO Status:ADM FIDEL Location: [place] [address] HPI - General General Date of Admission: 12/05/22 Date of Service: 12/05/22 Chief Complaint: Weakness HPI Narrative GLORIA PAUL, is a 87 F with a significant history of hypertension; CAD anddiabetes mellitus who presents to the emergency department with weakness. Of note patient fell 2 days before presentation. With her fall she hit her head real hard She came to the hospital and had 5 sutures placed. Patient lives with her . And per he is unable to help since patient is too weak. Patient is very weak. Earlier on the day of presentation patient slept reportedly all day. Plans were be made for patient to be admitted to [facility] but with her fall patient has been to with the family is looking to get her placed earlier. Of note patient has Dexcom for insulin monitoring but she is not able to manage. At the emergency department her blood glucose was found to be severely high. Patient admits to not drinking enough water. She denies any urinary symptoms. She complains of headache and pain in her legs. [facility]LY [facility], [facility] Medical History (HFpEF) heart failure with preserved ejection fraction Acute on chronic heart failure with preserved ejection fraction (HFpEF) Ambulates with cane Angina pectoris Arthritis Atherosclerotic heart disease of [place] coronary artery without angina pectoris Atrial fibrillation Back pain Broken ribs CAD (coronary artery disease) CAD (coronary artery disease) Cardiology follow-up encounter Carotid stenosis, left Chest pain Chronic anticoagulation Chronic renal failure, stage 3 (moderate) Congestive heart failure Coronary artery disease CPAP (continuous positive airway pressure) dependence Debility Diabetes Diabetes mellitus, type 2 Dietary restriction Difficulty swallowing Easy bruising Essential hypertension Fatigue Fibromyalgia GERD (gastroesophageal reflux disease) High cholesterol History of atrial fibrillation History of CHF (congestive heart failure) History of coronary artery disease History of echocardiogram History of pain when walking History of renal disease History of stress test History of stroke Hypertension Hypertension Hypothyroidism Insulin dependent diabetes mellitus Intertrigo Kidney disease penitentiary current use of anticoagulant Lower GI bleeding Lumbosacral radiculopathy Microalbuminuria Migraine headache New onset atrial fibrillation Non-smoker Obstructive sleep apnea Osteoarthritis of left knee 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 PAF (paroxysmal atrial fibrillation) Post-menopausal Presence of stent in coronary artery (~12/11/18) Pulmonary HTN Pure hypercholesterolemia Renal cancer Shortness of breath on exertion Stroke/cerebrovascular accident Thyroid disease Vertigo Wears hearing aid Home Medications aspirin 81 mg tablet,delayed release (Adult Low Dose Aspirin) 81 mg PO DAILY heart health 01/01/19 [History Last Taken 07/18/22] oxybutynin chloride 10 mg tablet,extended release 24 hr 10 mg PO DAILY BLADDER 03/23/19 [History Last Taken 07/18/22] levothyroxine 50 mcg tablet 50 mcg PO DAILY thyroid 05/10/20 [History Last Taken 07/18/22] cholecalciferol (vitamin D3) 25 mcg (1,000 unit) capsule (Vitamin D3) 25 mcg PO QODAY vitamin 06/20/21 [History Last Taken 07/17/22] duloxetine 30 mg capsule,delayed release 30 mg PO DAILY 02/28/22 [History Last Taken 07/18/22] diphenhydramine 25 mg-acetaminophen 500 mg tablet (Tylenol PM Extra Strength) 1 tab PO QHS 04/18/22 [History Last Taken Unknown] insulin lispro 100 unit/mL subcutaneous pen (Humalog KwikPen (U-100) Insulin) 27unit subcut TID PRN PRN SLIDING SCALE 05/23/22 [History Last Taken 07/18/22] insulin glargine 100 unit/mL (3 mL) subcutaneous pen (Lantus Solostar U-100 Insulin) 27 unit subcut QPM 06/06/22 [History Last Taken 07/17/22] atorvastatin 40 mg tablet 40 mg PO QHS cholesterol #90 tabs 08/20/22 [Rx Last Taken Unknown] furosemide 40 mg tablet 40 mg PO .COMPLEX #180 tabs 08/20/22 [Rx Last Taken Unknown] hydralazine 100 mg tablet 100 mg PO TID #270 tabs 08/20/22 [Rx Last Taken Unknown] nitroglycerin 0.4 mg sublingual tablet 0.4 mg sublingual Q5M PRN chest pain #25 tabs 08/20/22 [Rx Last Taken Unknown] warfarin 4 mg tablet 4 mg PO .COMPLEX #180 tabs 08/20/22 [Rx Last Taken Unknown] gabapentin 300 mg capsule 600 mg PO TID nerve pain 11/01/22 [History Last Taken Unknown] isosorbide mononitrate 60 mg tablet,extended release 24 hr 60 mg PO BID #180 tabs 11/01/22 [Rx Last Taken Unknown] metoprolol tartrate 50 mg tablet 50 mg PO BID #180 tabs 11/04/22 [Rx Last Taken Unknown] flash glucose scanning reader ([employer] Jong 2 [place]) #1 ea 11/08/22 [Rx Last Taken Unknown] ranolazine 500 mg tablet,extended release,12 hr 500 mg PO Q12H 12/05/22 [History Last Taken Unknown] Allergy/AdvReac Type Severity Reaction Status Date / Time latex Allergy Rash Verified 12/05/22 16:14 adhesive tape AdvReac Rash Verified 12/05/22 16:14 ticagrelor [From Brilinta] AdvReac Shortness Verified 12/05/22 16:14 of breath Family History Father Heart disease Mother Breast cancer Diabetes Heart disease Surgical History H/O hemorrhoidectomy History of appendectomy History of arthroscopic knee surgery History of back surgery History of cardiac catheterization History of cholecystectomy History of coronary artery bypass graft x 3 (~04/08/16) History of coronary artery stent placement History of hysterectomy History of knee replacement procedure of right knee History of right and left heart catheterization (LHC) (~08/10/19) History of right inguinal hernia repair Hx of CABG Hx of hand surgery Postlaminectomy syndrome of lumbar region Presence of coronary angioplasty implant and graft (~12/11/18) Social History household members: spouse housing: house Smoking Status: Never smoker alcohol intake: never substance use type: does not use caffeine: No ROS ROS Narrative Pertinent positives and pertinent negatives as noted in HPI. All other systems were reviewed and are negative Vital Signs Vital Signs Vital Signs: 12/05/22 16:14 12/05/22 16:19 12/05/22 16:23 Temperature 97 F L Temperature Source Temporal Pulse Rate 71 Respiratory Rate 18 Respiratory Effort Normal Non-Labored Respiratory Depth Normal Respiratory Pattern Normal Blood Pressure 176/89 H Blood Pressure Mean 118 Pulse Ox 91 87 Oxygen Delivery Method Room Air Room Air Oxygen Flow Rate (L/min) 12/05/22 16:23 12/05/22 18:53 Temperature Temperature Source Pulse Rate 68 Respiratory Rate 18 Respiratory Effort Respiratory Depth Respiratory Pattern Blood Pressure 152/57 H Blood Pressure Mean 88 Pulse Ox 91 95 Oxygen Delivery Method Nasal Cannula Room Air Oxygen Flow Rate (L/min) 2 Weight Weight: 78.5 kg Body Mass Index (BMI) 30.7 Physical Exam Narrative Physical exam: General: Well-nourished, well-developed. Head: Normocephalic, 5 sutures at right side of forehead; supraorbitally Eyes: Vision is grossly intact. EOMI ENT, no trauma, dry mucous membranes, no rhinorrhea Neck: Nontender, No thyromegaly. CVS: Regular rate and rhythm. S1-S2 present. No murmur, gallop or rub. Respiratory : clear to auscultation bilaterally, chest wall nontender Abdomen: Soft, nontender, nondistended, normal bowel sounds, no masses : Deferred Back: Nontender, no CVA tenderness. Extremities: Nontender full range of motion, no trauma Skin: Normal color, no trauma, abrasions Neuro: Alert, oriented, cranial nerves II through XII grossly intact. Psychiatry: Normal mood. Normal affect. Not depressed. Not anxious. Results Lab / Micro Data 12/05/22 17:10 12/05/22 17:10 Labs: Laboratory Results - last 24 hr 12/05/22 17:10: WBC 12.8 H, RBC 4.28, Hgb 12.7, Hct 39.3, MCV 91.8, MCH 29.7, MCHC 32.3, RDW Std Deviation 46.4 H, RDW Coeff of Laquita 13.8, Plt Count 186, MPV 12.5 H, Immature Gran % (Auto) 0.500, Neut % (Auto) 79.9 H, Lymph % (Auto) 10.6 L, [place] % (Auto) 7.8, Eos % (Auto) 0.9, Baso % (Auto) 0.3, Absolute Neuts (auto)10.2 H, Absolute Lymphs (auto) 1.36, Nucleated RBC % 0, PT 15.5 H, INR 1.2, Sodium 130 L, Potassium 4.2, Chloride 95 L, Carbon Dioxide 24.0, Anion Gap 11, BUN 58 H, Creatinine 2.66 H, Estim Creat Clear Calc 12.79, Est GFR (MDRD) Af Amer 22 L, Est GFR (MDRD) Non-Af 18 L, BUN/Creatinine Ratio 21.8 H, Glucose 528 H*, Calcium 8.9, Lipase < 10 L 12/05/22 18:06: Acetone Level NEGATIVE 12/05/22 19:15: Urine Color Yellow, Urine Clarity Clear, Urine pH 6.0, Ur Specific [place] 1.030, Urine Protein 30 H, Urine Glucose (UA) 1000 H, Urine Ketones Negative, Urine Occult Blood Negative, Urine Nitrite Negative, Urine Bilirubin Negative, Urine Urobilinogen Normal, Ur Leukocyte Esterase 100 H, Urine RBC 0 SEEN, Urine WBC 5- 10 SEEN, Ur Squamous Epith Cells 0-5 SEEN, Urine Bacteria RARE, Urine Mucus 0 SEEN, Urine Yeast 1+, POC Glucose 462 H* ABG Data ABG results: ABG 12/05/22 18:12 Specimen Type JUAN ALBERTO Sample Site Not entered O2 % 2.0 VBG pH 7.36 VBG pO2 35 VBG HCO3 24 VBG Total CO2 26 VBG O2 Sat (Calc) 65 VBG Base Excess -1 POC Mix VBG pCO2 Pt Tmp 42.7 O2 Delivery Device Cannula Radiology Impression Brain CT 12/05/22 17:35 IMPRESSION: No acute intracranial pathology of the brain. Electronically Signed: Morales Rivera DO at 18:13 EDT , Chest X-Ray 12/05/22 17:37 IMPRESSION: Left basilar atelectasis. Electronically Signed: Morales Rivera DO at 18:28 EDT , Assessment & Plan Assessment/Plan (1) Fall: QUALIFIERS: Encounter type: subsequent encounter Qualified Code(s): W19.XXXD - Unspecified fall, subsequent encounter (2) CKD (chronic kidney disease) stage 4, GFR 15-29 ml/min: (3) Debility: (4) Hypercoagulable state due to atrial fibrillation: QUALIFIERS: Atrial fibrillation type: paroxysmal Qualified Code(s): D68.69 - Other thrombophilia; I48.0 - Paroxysmal atrial fibrillation PLAN: Plan Debility with recent fall. Impression of chest x-ray by radiology. Left basilar atelectasis. Upon interpretation of EKG by myself: Agrees with radiology interpretation. Patient with no hypoxia. Repeat brain CT on this presentation did not show any acute intracranial pathology. PT and OT to work with patient. Case management consult. Vitamin D level. 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 Baseline creatinine of around 1.7. Creatinine on admission was 2.66 BUN on presentation was 58. BUN is the highest so far on file. Gentle IV hydration. Avoid nephrotoxins. Of note patient's Lasix will be held. Gabapentin will be reduced in dosage. Patient with hyperglycemia on presentation Basal continued. Prandial insulin ordered Monitor Accu-Cheks Correction scale insulin ordered. History of atrial fibrillation EKG on presentation showed sinus rhythm with Q waves. EKG was personally interpreted by myself. Hypertension Blood pressure is not within goal Home blood pressure medication continued. As needed hydralazine ordered. Trend blood pressure and adjust blood pressure medications. Leukocytosis CBC on presentation was 12.8. Likely reactive. Trend. A-fib/ hypercoagulable state secondary to A-fib INR is subtherapeutic. Escalate dose of Coumadin. Bridging with heparin was considered. However with recent head injury without bleeding will not bridge with heparin. Case was discussed extensively with emergency department doctor Dr. Hortencia Prado and patient was accepted on observation status. Time spent in the patient's overall evaluation,decision-making process, review of diagnostic data, adjustment of management, discussion with other providers, nursing and ancillary staff involved in patient's care documentation, 70 minutes. Charges/Coding Visit Charges Inpatient E&M: 82290 Init Hosp L3 12/05/222047 <Electronically signed by Carlos Liu MD> Cosigner Signature (if applicable): CC: Dr. Carlos Liu MD; Dr. Jose J Lezama DO~ Signed [facility] Work Phone: [phone]) 837-216610-26-2023 History and physical note Author Carlos Liu [facility] December 05, 2022 8:48pm Note Date/Time December 05, 2022 7 :50pm [facility] Medical Records Department [address] [place] [address] H&P Exam - Hospitalist 12/05/22 1950 MR#: [id number] Acct: [id number] Name: GLORIA PAUL Rep #:[id number] : 1935 87 From: Carlos Liu MD PCP: Dr. Jose J Lezama DO Status:ADM FIDEL Location: [place] [address] HPI - General General Date of Admission: 12/05/22 Date of Service: 12/05/22 Chief Complaint: Weakness HPI Narrative GLORIA PAUL, is a 87 F with a significant history of hypertension; CAD anddiabetes mellitus who presents to the emergency department with weakness. Of note patient fell 2 days before presentation. With her fall she hit her head real hard She came to the hospital and had 5 sutures placed. Patient lives with her . And per he is unable to help since patient is too weak. Patient is very weak. Earlier on the day of presentation patient slept reportedly all day. Plans were be made for patient to be admitted to [facility] but with her fall patient has been to with the family is looking to get her placed earlier. Of note patient has Dexcom for insulin monitoring but she is not able to manage. At the emergency department her blood glucose was found to be severely high. Patient admits to not drinking enough water. She denies any urinary symptoms. She complains of headache and pain in her legs. FORMERLY [facility], [facility] Medical History (HFpEF) heart failure with preserved ejection fraction Acute on chronic heart failure with preserved ejection fraction (HFpEF) Ambulates with cane Angina pectoris Arthritis Atherosclerotic heart disease of [place] coronary artery without angina pectoris Atrial fibrillation Back pain Broken ribs CAD (coronary artery disease) CAD (coronary artery disease) Cardiology follow-up encounter Carotid stenosis, left Chest pain Chronic anticoagulation Chronic renal failure, stage 3 (moderate) Congestive heart failure Coronary artery disease CPAP (continuous positive airway pressure) dependence Debility Diabetes Diabetes mellitus, type 2 Dietary restriction Difficulty swallowing Easy bruising Essential hypertension Fatigue Fibromyalgia GERD (gastroesophageal reflux disease) High cholesterol History of atrial fibrillation History of CHF (congestive heart failure) History of coronary artery disease History of echocardiogram History of pain when walking History of renal disease History of stress test History of stroke Hypertension Hypertension Hypothyroidism Insulin dependent diabetes mellitus Intertrigo Kidney disease penitentiary current use of anticoagulant Lower GI bleeding Lumbosacral radiculopathy Microalbuminuria Migraine headache New onset atrial fibrillation Non-smoker Obstructive sleep apnea Osteoarthritis of left knee Other senior living (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 PAF (paroxysmal atrial fibrillation) Post-menopausal Presence of stent in coronary artery (~12/11/18) Pulmonary HTN Pure hypercholesterolemia Renal cancer Shortness of breath on exertion Stroke/cerebrovascular accident Thyroid disease Vertigo Wears hearing aid Home Medications aspirin 81 mg tablet,delayed release (Adult Low Dose Aspirin) 81 mg PO DAILY heart health 01/01/19 [History Last Taken 07/18/22] oxybutynin chloride 10 mg tablet,extended release 24 hr 10 mg PO DAILY BLADDER 03/23/19 [History Last Taken 07/18/22] levothyroxine 50 mcg tablet 50 mcg PO DAILY thyroid 05/10/20 [History Last Taken 07/18/22] cholecalciferol (vitamin D3) 25 mcg (1,000 unit) capsule (Vitamin D3) 25 mcg PO QODAY vitamin 06/20/21 [History Last Taken 07/17/22] duloxetine 30 mg capsule,delayed release 30 mg PO DAILY 02/28/22 [History Last Taken 07/18/22] diphenhydramine 25 mg-acetaminophen 500 mg tablet (Tylenol PM Extra Strength) 1 tab PO QHS 04/18/22 [History Last Taken Unknown] insulin lispro 100 unit/mL subcutaneous pen (Humalog KwikPen (U-100) Insulin) 27unit subcut TID PRN PRN SLIDING SCALE 05/23/22 [History Last Taken 07/18/22] insulin glargine 100 unit/mL (3 mL) subcutaneous pen (Lantus Solostar U-100 Insulin) 27 unit subcut QPM 06/06/22 [History Last Taken 07/17/22] atorvastatin 40 mg tablet 40 mg PO QHS cholesterol #90 tabs 08/20/22 [Rx Last Taken Unknown] furosemide 40 mg tablet 40 mg PO .COMPLEX #180 tabs 08/20/22 [Rx Last Taken Unknown] hydralazine 100 mg tablet 100 mg PO TID #270 tabs 08/20/22 [Rx Last Taken Unknown] nitroglycerin 0.4 mg sublingual tablet 0.4 mg sublingual Q5M PRN chest pain #25 tabs 08/20/22 [Rx Last Taken Unknown] warfarin 4 mg tablet 4 mg PO .COMPLEX #180 tabs 08/20/22 [Rx Last Taken Unknown] gabapentin 300 mg capsule 600 mg PO TID nerve pain 11/01/22 [History Last Taken Unknown] isosorbide mononitrate 60 mg tablet,extended release 24 hr 60 mg PO BID #180 tabs 11/01/22 [Rx Last Taken Unknown] metoprolol tartrate 50 mg tablet 50 mg PO BID #180 tabs 11/04/22 [Rx Last Taken Unknown] flash glucose scanning reader (Picmonic Jong 2 [place]) #1 ea 11/08/22 [Rx Last Taken Unknown] ranolazine 500 mg tablet,extended release,12 hr 500 mg PO Q12H 12/05/22 [History Last Taken Unknown] Allergy/AdvReac Type Severity Reaction Status Date / Time latex Allergy Rash Verified 12/05/22 16:14 adhesive tape AdvReac Rash Verified 12/05/22 16:14 ticagrelor [From Brilinta] AdvReac Shortness Verified 12/05/22 16:14 of breath Family History Father Heart disease Mother Breast cancer Diabetes Heart disease Surgical History H/O hemorrhoidectomy History of appendectomy History of arthroscopic knee surgery History of back surgery History of cardiac catheterization History of cholecystectomy History of coronary artery bypass graft x 3 (~04/08/16) History of coronary artery stent placement History of hysterectomy History of knee replacement procedure of right knee History of right and left heart catheterization (LHC) (~08/10/19) History of right inguinal hernia repair Hx of CABG Hx of hand surgery Postlaminectomy syndrome of lumbar region Presence of coronary angioplasty implant and graft (~12/11/18) Social History household members: spouse housing: house Smoking Status: Never smoker alcohol intake: never substance use type: does not use caffeine: No ROS ROS Narrative Pertinent positives and pertinent negatives as noted in HPI. All other systems were reviewed and are negative Vital Signs Vital Signs Vital Signs: 12/05/22 16:14 12/05/22 16:19 12/05/22 16:23 Temperature 97 F L Temperature Source Temporal Pulse Rate 71 Respiratory Rate 18 Respiratory Effort Normal Non-Labored Respiratory Depth Normal Respiratory Pattern Normal Blood Pressure 176/89 H Blood Pressure Mean 118 Pulse Ox 91 87 Oxygen Delivery Method Room Air Room Air Oxygen Flow Rate (L/min) 12/05/22 16:23 12/05/22 18:53 Temperature Temperature Source Pulse Rate 68 Respiratory Rate 18 Respiratory Effort Respiratory Depth Respiratory Pattern Blood Pressure 152/57 H Blood Pressure Mean 88 Pulse Ox 91 95 Oxygen Delivery Method Nasal Cannula Room Air Oxygen Flow Rate (L/min) 2 Weight Weight: 78.5 kg Body Mass Index (BMI) 30.7 Physical Exam Narrative Physical exam: General: Well-nourished, well-developed. Head: Normocephalic, 5 sutures at right side of forehead; supraorbitally Eyes: Vision is grossly intact. EOMI ENT, no trauma, dry mucous membranes, no rhinorrhea Neck: Nontender, No thyromegaly. CVS: Regular rate and rhythm. S1-S2 present. No murmur, gallop or rub. Respiratory : clear to auscultation bilaterally, chest wall nontender Abdomen: Soft, nontender, nondistended, normal bowel sounds, no masses : Deferred Back: Nontender, no CVA tenderness. Extremities: Nontender full range of motion, no trauma Skin: Normal color, no trauma, abrasions Neuro: Alert, oriented, cranial nerves II through XII grossly intact. Psychiatry: Normal mood. Normal affect. Not depressed. Not anxious. Results Lab / Micro Data 12/05/22 17:10 12/05/22 17:10 Labs: Laboratory Results - last 24 hr 12/05/22 17:10: WBC 12.8 H, RBC 4.28, Hgb 12.7, Hct 39.3, MCV 91.8, MCH 29.7, MCHC 32.3, RDW Std Deviation 46.4 H, RDW Coeff of Laquita 13.8, Plt Count 186, MPV 12.5 H, Immature Gran % (Auto) 0.500, Neut % (Auto) 79.9 H, Lymph % (Auto) 10.6 L, Lanier % (Auto) 7.8, Eos % (Auto) 0.9, Baso % (Auto) 0.3, Absolute Neuts (auto)10.2 H, Absolute Lymphs (auto) 1.36, Nucleated RBC % 0, PT 15.5 H, INR 1.2, Sodium 130 L, Potassium 4.2, Chloride 95 L, Carbon Dioxide 24.0, Anion Gap 11, BUN 58 H, Creatinine 2.66 H, Estim Creat Clear Calc 12.79, Est GFR (MDRD) Af Amer 22 L, Est GFR (MDRD) Non-Af 18 L, BUN/Creatinine Ratio 21.8 H, Glucose 528 H*, Calcium 8.9, Lipase < 10 L 12/05/22 18:06: Acetone Level NEGATIVE 12/05/22 19:15: Urine Color Yellow, Urine Clarity Clear, Urine pH 6.0, Ur Specific [place] 1.030, Urine Protein 30 H, Urine Glucose (UA) 1000 H, Urine Ketones Negative, Urine Occult Blood Negative, Urine Nitrite Negative, Urine Bilirubin Negative, Urine Urobilinogen Normal, Ur Leukocyte Esterase 100 H, Urine RBC 0 SEEN, Urine WBC 5- 10 SEEN, Ur Squamous Epith Cells 0-5 SEEN, Urine Bacteria RARE, Urine Mucus 0 SEEN, Urine Yeast 1+, POC Glucose 462 H* ABG Data ABG results: ABG 12/05/22 18:12 Specimen Type JUAN ALBERTO Sample Site Not entered O2 % 2.0 VBG pH 7.36 VBG pO2 35 VBG HCO3 24 VBG Total CO2 26 VBG O2 Sat (Calc) 65 VBG Base Excess -1 POC Mix VBG pCO2 Pt Tmp 42.7 O2 Delivery Device Cannula Radiology Impression Brain CT 12/05/22 17:35 IMPRESSION: No acute intracranial pathology of the brain. Electronically Signed: Morales Rivera DO at 18:13 EDT , Chest X-Ray 12/05/22 17:37 IMPRESSION: Left basilar atelectasis. Electronically Signed: Morales Rivera DO at 18:28 EDT Reading Location ID and State: [facility] / [place] Tel [phone], Service support , Assessment & Plan Assessment/Plan (1) Fall: QUALIFIERS: Encounter type: subsequent encounter Qualified Code(s): W19.XXXD - Unspecified fall, subsequent encounter (2) CKD (chronic kidney disease) stage 4, GFR 15-29 ml/min: (3) Debility: (4) Hypercoagulable state due to atrial fibrillation: QUALIFIERS: Atrial fibrillation type: paroxysmal Qualified Code(s): D68.69 - Other thrombophilia; I48.0 - Paroxysmal atrial fibrillation PLAN: Plan Debility with recent fall. Impression of chest x-ray by radiology. Left basilar atelectasis. Upon interpretation of EKG by myself: Agrees with radiology interpretation. Patient with no hypoxia. Repeat brain CT on this presentation did not show any acute intracranial pathology. PT and OT to work with patient. Case management consult. Vitamin D level. 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 Baseline creatinine of around 1.7. Creatinine on admission was 2.66 BUN on presentation was 58. BUN is the highest so far on file. Gentle IV hydration. Avoid nephrotoxins. Of note patient's Lasix will be held. Gabapentin will be reduced in dosage. Patient with hyperglycemia on presentation Basal continued. Prandial insulin ordered Monitor Accu-Cheks Correction scale insulin ordered. History of atrial fibrillation EKG on presentation showed sinus rhythm with Q waves. EKG was personally interpreted by myself. Hypertension Blood pressure is not within goal Home blood pressure medication continued. As needed hydralazine ordered. Trend blood pressure and adjust blood pressure medications. Leukocytosis CBC on presentation was 12.8. Likely reactive. Trend. A-fib/ hypercoagulable state secondary to A-fib INR is subtherapeutic. Escalate dose of Coumadin. Bridging with heparin was considered. However with recent head injury without bleeding will not bridge with heparin. Case was discussed extensively with emergency department doctor Dr. Hortencia Prado and patient was accepted on observation status. Time spent in the patient's overall evaluation,decision-making process, review of diagnostic data, adjustment of management, discussion with other providers, nursing and ancillary staff involved in patient's care documentation, 70 minutes. Charges/Coding Visit Charges Inpatient E&M: 57242 Init Hosp L3 12/05/222047 <Electronically signed by Carlos Liu MD> Cosigner Signature (if applicable): CC: Dr. Carlos Liu MD; Dr. Jose J Lezama DO~ Signed [facility] Work Phone: 1(638) 919-747710-22-2023 Hospital Discharge instructions Additional Instructions The stitches will need to be removed in 5 to 7 days. Please note that your warfarin level today is 1.2. I would take an extra warfarin today and tomorrow. I would recommend having your Coumadin checked at the end of this week.[facility] Work Phone: 1(246) 811-975210-12-2023 Discharge summary Author Rosa Andersen [facility] November 21, 2022 1:58pm Note Date/Time November 21, 2022 1 2:59pm [facility] Medical Records Department [address] [place] [address] Discharge Summary 11/21/22 1258 MR#: [id number] Acct: [id number] Name: GLORIA PAUL Rep #:[id number] : 1935 87 From: Rosa Andersen DO PCP: Dr. Jose J Lezama DO Status:ADM FIDEL Location: [place] [address] Providers Date of Admission: 11/20/22 Date of Discharge: 11/21/22 Primary Care Physician: Dr. Jose J Lezama DO Reason For Visit: CHEST PAIN Diagnosis Discharge Diagnosis (1) Chest pain: Status: Acute Code(s): R07.9 - Chest pain, unspecified Medications at Discharge Home Medications aspirin 81 mg tablet,delayed release (Adult Low Dose Aspirin) 81 mg PO DAILY heart health 01/01/19 oxybutynin chloride 10 mg tablet,extended release 24 hr 10 mg PO DAILY BLADDER 03/23/19 levothyroxine 50 mcg tablet 50 mcg PO DAILY thyroid 05/10/20 cholecalciferol (vitamin D3) 25 mcg (1,000 unit) capsule (Vitamin D3) 25 mcg PO QODAY vitamin 06/20/21 duloxetine 30 mg capsule,delayed release 30 mg PO DAILY 02/28/22 diphenhydramine 25 mg-acetaminophen 500 mg tablet (Tylenol PM Extra Strength) 1 tab PO QHS 04/18/22 insulin lispro 100 unit/mL subcutaneous pen (Humalog KwikPen (U-100) Insulin) 27unit subcut TID PRN PRN SLIDING SCALE 05/23/22 insulin glargine 100 unit/mL (3 mL) subcutaneous pen (Lantus Solostar U-100 Insulin) 27 unit subcut QPM 06/06/22 insulin NPH isoph U-100 human 100 unit/mL (3 mL) subcutaneous pen (Novolin N FlexPen) 7 unit (0.07 mL) subcut HS #3 mL 06/20/22 atorvastatin 40 mg tablet 40 mg PO QHS cholesterol #90 tabs 08/20/22 furosemide 40 mg tablet 40 mg PO .COMPLEX #180 tabs 08/20/22 hydralazine 100 mg tablet 100 mg PO TID #270 tabs 08/20/22 nitroglycerin 0.4 mg sublingual tablet 0.4 mg sublingual Q5M PRN chest pain #25 tabs 08/20/22 ranolazine 500 mg tablet,extended release,12 hr 500 mg PO BID #180 tabs 08/20/22 warfarin 4 mg tablet 4 mg PO .COMPLEX #180 tabs 08/20/22 empagliflozin 25 mg tablet (Jardiance) 25 mg PO DAILY #30 tabs 08/29/22 gabapentin 300 mg capsule 600 mg PO TID nerve pain 11/01/22 isosorbide mononitrate 60 mg tablet,extended release 24 hr 60 mg PO BID #180 tabs 11/01/22 metoprolol tartrate 50 mg tablet 50 mg PO BID #180 tabs 11/04/22 flash glucose scanning reader (Pic[employer] Jong 2 [place]) #1 ea 11/08/22 Hospital Course Procedures EKG and - (V/Q/chest x-ray) Summary of Care Provided Minutes Spent on Discharge: 37 Hospital Course: Mrs. Paul is an 87-year-old white female who presented to the emergency department with worsening exertional dyspnea and right-sided chest pain that occurred on the day of presentation. Patient has been having worsening exertional shortness of breath over time but she developed acute right-sided chest pain that had resolved by the time she was evaluated by the hospitalist sarahy came to the emergency department for further evaluation. Vital signs were stable however oxygen saturations appeared to be between 90 and 92% on room air. She was placed on 2 L and her sats improved to 96%. Her CBC was unremarkable. She is chronically anticoagulated with Coumadin and her INR was 1.8. She is unable to afford DOACs so she is maintained on Coumadin. Her chemistry panel showed mild hyponatremia with a sodium of 135 which appears to be stable, and elevated BUN and creatinine at 44 and 2.34 which has been stable as of recent andhyperglycemia with a glucose of 164. A D-dimer was obtained and found to be elevated at 1.94. She is not a candidate for contrasted CT due to her renal function abnormalities so request for admission was made for VQ scan. I was able to review her records and it appears that in July 2021 she had a negative stress test and she had a cardiac catheterization done within the last 5 years that showed a normal EF and stable coronary disease with a right heart cath being performed showing a pulmonary capillary wedge pressure of 8 and pulmonary artery pressures of 34/9. She has had PFTs done in 2019 that showed mild restrictive disease with a normal DLCO and a normal TSH that was performed on 10/30 to 09/29/2022. An echocardiogram was done recently as well and showed an EFof 65% with stage I diastolic dysfunction and a right ventricular systolic pressure of 25 mmHg. We obtained a VQ scan which showed minimally heterogeneousventilation throughout bilateral lung mcgee and central clumping of the aerosols and bilateral hemithorax with uniform perfusion per out and no segmental or subsegmental defects identified. With her associated renal dysfunction and hypoxia with exertion as she did desat into the 80s with exertion I obtained ANCA's. I also obtained a room air blood gas that showed Britta gradient of 44.6 with an age corrected AA gradient considered normal for her at 25.3 verifying she does have an elevated AA gradient. I also feels imperative she followed up with pulmonary medicine discharge and I discussed thecase with Dr. Lawson from pulmonary medicine prior to discharge. With her elevated AA gradient she will need an outpatient echocardiogram with a bubble study and a noncontrasted CT of her chest. On exam she has diffuse fine crackles consistent with pulmonary fibrosis. I did obtain a BNP to rule out anyheart failure and this was normal. She was able to be discharged home on 11/21/2022. We did resting and ambulatory pulse ox and she will require 2 L of oxygen with exertion. I have asked that she follow-up with her primary care physician within next 2 weeks and we have made a follow-up appointment for her to be seen with pulmonary medicine after discharge. Discharge diagnoses: Exertional dyspnea Elevated D-dimer with normal VQ scan Coumadin induced coagulopathy DM-2 Hypothyroidism Hypertension Vitamin D deficiency next lipidemia CAD CKD stage IV HFpEF-chronic Osteoarthrosis Carotid artery stenosis History of stroke [place] Paroxysmal atrial fibrillation History of renal carcinoma Physical Exam Const alert, oriented x3, no apparent distress, no limitations and well nourished Constitutional Narrative: , Elderly, white female, sitting up in bed, at bedside, patient appears comfortable and nontoxic, very pleasant General Appearance: cooperative, comfortable, well kempt and well developed Orientation / Consciousness: awake, oriented to person, oriented to place and oriented to time Exam Limitations: no limitations Nutritional Appearance: overweight HEENT normocephalic, head/scalp atraumatic and moist oral mucous membranes HEENT Narrative: Dentition is fair for age, Mallampati is 2, no thrush, mild hearing loss Eyes PERRL, EOMs intact bilaterally and conjunctivae normal Eyes Narrative: No scleral icterus Neck no lymphadenopathy and supple Neck Narrative: Trachea midline, no thyroid enlargement Resp normal respiratory effort, no retractions and no use of accessory muscles Resp Narrative: Diffuse fine scattered Velcro type sounding crackles bilaterally Auscultation: crackles; Negative for rhonchi or wheezes Cardio regular rate, regular rhythm, S1 normal heart sound, S2 normal heart sound, no murmurs, no rub, no gallops and no clicks GI normal to inspection, nondistended, normoactive bowel sounds, soft to palpation and non-tender Extremity no clubbing, cyanosis or edema Extremity Narrative: 2+ pedal pulses, decreased lean muscle mass Skin no rashes or lesions noted, no wounds, skin turgor normal and no jaundice Skin Narrative: Skin is thin Neuro oriented x3, CN's II-XII intact bilaterally, moves all extremities and no focal motor deficits Neuro Narrative: Very mild generalized weakness with proximal musculature being weaker than distal 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, mild bilateral distal neuropathy Speech: speech normal Psych affect normal Psych Narrative: Extremely pleasant, Weight / BMI Weight Weight: 72.8 kg Body Mass Index (BMI) 28.4 ABG / Lab / Microbiology Data 11/21/22 05:35 11/21/22 05:35 Laboratory: Laboratory Results - last 24 hr 11/20/22 12:48: WBC 9.7, RBC 4.45, Hgb 13.2, Hct 42.4, MCV 95.3, MCH 29.7, MCHC 31.1 L, RDW Std Deviation 49.5 H, RDW Coeff of Laquita 14.2, Plt Count 281, MPV 11.7, Immature Gran % (Auto) 0.400, Neut % (Auto) 69.0, Lymph % (Auto) 19.3, [place] % (Auto) 8.3, Eos % (Auto) 2.3, Baso % (Auto) 0.7, Absolute Neuts (auto) 6.7, Absolute Lymphs (auto) 1.88, Nucleated RBC % 0, Differential Comment SCANNED, PT 20.6 H, INR 1.8, Sodium 135 L, Potassium 3.8, Chloride 101, Carbon Dioxide 25.0, Anion Gap 9, BUN 44 H, Creatinine 2.34 H, Estim Creat Clear Calc 14.54, Est GFR (MDRD) Af Amer 25 L, Est GFR (MDRD) Non-Af 21 L, BUN/Creatinine Ratio 18.8, Glucose 164 H, Calcium 9.0, Troponin I High Sens 12 11/20/22 14:25: D-Dimer Quant (PE/DVT) 1.94 H* 11/20/22 15:15: Troponin I High Sens 13 11/20/22 20:08: POC Glucose 339 H 11/21/22 05:35: WBC 11.4 H, RBC 4.04 L, Hgb 12.2, Hct 38.5, MCV 95.3, MCH 30.2, MCHC 31.7 L, RDW Std Deviation 49.2 H, RDW Coeff of Laquita 14.1, Plt Count 253, MPV11.4, Immature Gran % (Auto) 0.300, Neut % (Auto) 66.3, Lymph % (Auto) 21.0, [place] % (Auto) 8.6, Eos % (Auto) 3.3, Baso % (Auto) 0.5, Absolute Neuts (auto) 7.5, Absolute Lymphs (auto) 2.38, Nucleated RBC % 0, Sodium 134 L, Potassium 3.7, Chloride 101, Carbon Dioxide 24.0, Anion Gap 9, BUN 38 H, Creatinine 2.29 H, Estim Creat Clear Calc 14.86, Est GFR (MDRD) Af Amer 26 L, Est GFR (MDRD) Non-Af 22 L, BUN/Creatinine Ratio 16.6, Glucose 219 H, Calcium 8.8, B-Natriuretic Peptide 75.4 11/21/22 08:48: PT 21.3 H, INR 1.8 11/21/22 10:58: POC Glucose 485 H* Microbiology: Microbiology 11/21/22 08:25 Mucosa - Nose Respiratory Panel (PCR) - Final ABG: ABG 11/21/22 08:41 Specimen Type ART Sample Site L Radial pH 7.40 Bicarbonate Actual 25.1 Total CO2 26 Base Excess 0 O2 Saturation 88 L ABG pCO2 40.9 ABG pO2 54 L Fili Test Positive O2 Delivery Device Room Air Vent Mode Not entered Radiography Diagnostic Testing: Radiology Impression Chest X-Ray 11/20/22 13:10 IMPRESSION: No acute cardiopulmonary abnormality. No interval change Electronically Signed: Tonny Breen MD at 13:25 EDT , Lung Scan-VQ NM 11/21/22 05:55 IMPRESSION: 1. NORMAL 99m Tc MAA pulmonary perfusion imaging examination, according to PIOPED II interpretive criteria. (Sotsman et al, Radiology 246: 941, 2008 Sotsnate et al, J Nucl Med 49: 1741, 2008). 2. Central clumping of the aerosol may be secondary to obstructive airway mechanics and or clinical tachypnea. 3. Overall compared to the previous perfusion lung scintigraphy study dated 04/22/2016, there is no definitive significant interval change. Electronically Signed: Gilberto Rhodes DO at 12:43 EDT , D/C Instructions Discharge Diet: Low fat / Low cholesterol and 1800 Calorie Control Diet Discharge Activity: Return to Normal Activity Meaningful Use Info Meaningful Use Diagnoses (Choose all that apply): None applicable Discharge Plan Admission Admit Date/Time: 11/20/22 18:23 Primary Reason for Your Visit: Shortness of Breath/Chest Pain Attending Provider: Rosa Andersen Primary Care Provider: Jose J Lezama Consulting Providers: Bernardino Briceno Instructions Additional Instructions / Restrictions: 1. Please wear oxygen with exertion (this includes up walking around the house or doing housework) at 2 L 2. Please follow-up at the pulmonary doctor/lung doctor as scheduled below 3. Please have your INR checked for your Coumadin level as previously directed Discharge Orders/Prescriptions Prescriptions: Continued aspirin [Adult Low Dose Aspirin] 81 mg tablet,delayed release (DR/EC) 81 mg PO DAILY gabapentin 300 mg capsule 600 mg PO TID cholecalciferol (vitamin D3) [Vitamin D3] 25 mcg (1,000 unit) capsule 25 mcg PO QODAY levothyroxine 50 mcg tablet 50 mcg PO DAILY duloxetine 30 mg capsule,delayed release(DR/EC) 30 mg PO DAILY diphenhydramine-acetaminophen [Tylenol PM Extra Strength] 25-500 mg tablet 1 tab PO QHS insulin glargine [Lantus Solostar U-100 Insulin] 100 unit/mL (3 mL) insulin pen 27 unit subcut QPM Novolin N FlexPen 100 unit/mL (3 mL) insulin pen 7 unit subcut HS Qty: 3 5RF Jardiance 25 mg tablet 25 mg PO DAILY Qty: 30 5RF isosorbide mononitrate 60 mg tablet extended release 24 hr 60 mg PO BID Qty: 180 3RF oxybutynin chloride 10 MG tablet extended release 24hr 10 mg PO DAILY insulin lispro [Humalog KwikPen Insulin] 100 unit/mL insulin pen 27 unit subcut TID PRN PRN (Reason: SLIDING SCALE) atorvastatin 40 mg tablet 40 mg PO QHS Qty: 90 3RF furosemide 40 mg tablet 40 mg PO .COMPLEX Qty: 180 3RF Rx Instructions: 40 mg orally daily, may take 1 extra pill daily for weight gain, swelling, orshortness of breath; hydralazine 100 mg tablet 100 mg PO TID Qty: 270 3RF nitroglycerin 0.4 mg tablet, sublingual 0.4 mg SUBLINGUAL Q5M PRN (Reason: chest pain) Qty: 25 3RF Rx Instructions: do not exceed 3 doses per episode ranolazine 500 mg tablet extended release 12 hr 500 mg PO BID Qty: 180 3RF warfarin 4 mg tablet 4 mg PO .COMPLEX Qty: 180 3RF Protocol: Dose Management Condition: Friday Dose/Route: 6 mg Instruction: 1.5 x 4 mg tablets Condition: Friday Dose/Route: 4 mg Instruction: 1 x 4 mg tablet Condition: Friday Dose/Route: 4 mg Instruction: 1 x 4 mg tablet Condition: Friday Dose/Route: 4 mg Instruction: 1 x 4 mg tablet Condition: Dose/Route: 4 mg Instruction: 1 x 4 mg tablet Condition: Friday Dose/Route: 4 mg Instruction: 1 x 4 mg tablet Condition: Friday Dose/Route: 6 mg Instruction: 1.5 x 4 mg tablets Protocol Text: Adjustment Start Date: Friday08/20/22 INR Value: 2.5 INR Date: 08/05/22 Recheck Date: 08/26/22 Rx Instructions: 4 mg orally daily Friday through Friday ; and take 1and a half tablets (6mg) on Sat and Sun; or as directed; metoprolol tartrate 50 mg tablet 50 mg PO BID Qty: 180 3RF (DME) FreeStyle Jong 2 [place] Misc See Rx Instructions .Route Qty: 1 0RF Rx Instructions: As directed Referrals / Follow Up: Jose J Lezama DO [Primary Care Provider] - Within 2 Weeks Kacie Arthur NP, [facility] [Med Staff - [facility]] - 12/16/22 11:15 am Disposition Disposition (needs filled in before D/C Order can be placed): Home, Self Care Charges/Coding Visit Charges Inpatient E&M: 77208 Disch Hosp >30min 11/21/22 1348 <Electronically signed by Rosa Andersen DO> Cosigner Signature (if applicable): CC: Dr. Rosa Andersen DO; Dr. Jose J Lezama DO~ Signed ADDENDUM by Dr. Rosa Andersen DO on 11/21/22 at 1358 Addendum The patient is ambulatory in the home and the community and requires home oxygenwith portability. 11/21/22 1358<Electronically signed by Rosa Andersen DO> Cosigner Signature (if applicable): cc: Dr. Rosa Andersen DO; Dr. Jose J Lezama DO ~* Signed [facility] Work Phone: 1(959) 618-787610-11-2023 History and physical note Author Bernardino Briceno [facility] November 20, 2022 6:47pm Note Date/Time November 20, 2022 6 :33pm [facility] Medical Records Department [address] [place] [address] H&P Exam - Hospitalist 11/20/226 MR#: [id number] Acct: [id number] Name: GLORIA PAUL Rep #:[id number] : 1935 87 From: Bernardino diez MD PCP: Dr. Jose J Lezama, Status:ADM FIDEL Location: [place] [address] HPI - General General Date of Admission: 11/20/22 HPI Narrative GLORIA PAUL, is a 87 F who presents to the hospital with a transient right-sided chest pain. She does have some chest pain on palpation but she saysthat it is different than the pain that she had this morning while she was just sitting in her chair. She is already anticoagulated for A-fib however a D-dimerwas obtained which was elevated unfortunately she has chronic kidney disease that precludes a CT of the chest so there was some thought of bringing her in for a VQ scan. She did have an ambulatory pulse ox in the ER which was abnormaldown to 76% on room air. She does state that she gets short of breath very quickly with ambulation but does not appear to have history pulmonary hypertension. She says that she feels much better now however given her hypoxiawith ambulation she does need to be evaluated for home- going oxygen. Chest x-ray was unremarkable and her lab work is at baseline for her. [facility], [facility] Medical History (HFpEF) heart failure with preserved ejection fraction Acute on chronic heart failure with preserved ejection fraction (HFpEF) Ambulates with cane Angina pectoris Arthritis Atherosclerotic heart disease of [place] coronary artery without angina pectoris Back pain Broken ribs CAD (coronary artery disease) CAD (coronary artery disease) Cardiology follow-up encounter Carotid stenosis, left Chronic anticoagulation Chronic renal failure, stage 3 (moderate) Congestive heart failure Coronary artery disease CPAP (continuous positive airway pressure) dependence Debility Diabetes Diabetes mellitus, type 2 Dietary restriction Difficulty swallowing Easy bruising Essential hypertension Fatigue Fibromyalgia GERD (gastroesophageal reflux disease) High cholesterol History of atrial fibrillation History of CHF (congestive heart failure) History of echocardiogram History of pain when walking History of renal disease History of stress test History of stroke Hypertension Hypothyroidism Insulin dependent diabetes mellitus 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 Lower GI bleeding Lumbosacral radiculopathy Microalbuminuria Migraine headache New onset atrial fibrillation Non-smoker Obstructive sleep apnea Osteoarthritis of left knee 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 PAF (paroxysmal atrial fibrillation) Post-menopausal Presence of stent in coronary artery (~12/11/18) Pulmonary HTN Pure hypercholesterolemia Renal cancer Shortness of breath on exertion Stroke/cerebrovascular accident Thyroid disease Vertigo Wears hearing aid Home Medications aspirin 81 mg tablet,delayed release (Adult Low Dose Aspirin) 81 mg PO DAILY heart health 01/01/19 [History Last Taken 07/18/22] oxybutynin chloride 10 mg tablet,extended release 24 hr 10 mg PO DAILY BLADDER 03/23/19 [History Last Taken 07/18/22] levothyroxine 50 mcg tablet 50 mcg PO DAILY thyroid 05/10/20 [History Last Taken 07/18/22] cholecalciferol (vitamin D3) 25 mcg (1,000 unit) capsule (Vitamin D3) 25 mcg PO QODAY vitamin 06/20/21 [History Last Taken 07/17/22] duloxetine 30 mg capsule,delayed release 30 mg PO DAILY 02/28/22 [History Last Taken 07/18/22] diphenhydramine 25 mg-acetaminophen 500 mg tablet (Tylenol PM Extra Strength) 1 tab PO QHS 04/18/22 [History Last Taken Unknown] insulin lispro 100 unit/mL subcutaneous pen (Humalog KwikPen (U-100) Insulin) 27unit subcut TID PRN PRN SLIDING SCALE 05/23/22 [History Last Taken 07/18/22] insulin glargine 100 unit/mL (3 mL) subcutaneous pen (Lantus Solostar U-100 Insulin) 27 unit subcut QPM 06/06/22 [History Last Taken 07/17/22] insulin NPH isoph U-100 human 100 unit/mL (3 mL) subcutaneous pen (Novolin N FlexPen) 7 unit (0.07 mL) subcut HS #3 mL 06/20/22 [Rx Last Taken 07/17/22] atorvastatin 40 mg tablet 40 mg PO QHS cholesterol #90 tabs 08/20/22 [Rx Last Taken Unknown] furosemide 40 mg tablet 40 mg PO .COMPLEX #180 tabs 08/20/22 [Rx Last Taken Unknown] hydralazine 100 mg tablet 100 mg PO TID #270 tabs 08/20/22 [Rx Last Taken Unknown] nitroglycerin 0.4 mg sublingual tablet 0.4 mg sublingual Q5M PRN chest pain #25 tabs 08/20/22 [Rx Last Taken Unknown] ranolazine 500 mg tablet,extended release,12 hr 500 mg PO BID #180 tabs 08/20/22[Rx Last Taken Unknown] warfarin 4 mg tablet 4 mg PO .COMPLEX #180 tabs 08/20/22 [Rx Last Taken Unknown] empagliflozin 25 mg tablet (Jardiance) 25 mg PO DAILY #30 tabs 08/29/22 [Rx Last Taken Unknown] gabapentin 300 mg capsule 600 mg PO TID nerve pain 11/01/22 [History Last Taken Unknown] isosorbide mononitrate 60 mg tablet,extended release 24 hr 60 mg PO BID #180 tabs 11/01/22 [Rx Last Taken Unknown] metoprolol tartrate 50 mg tablet 50 mg PO BID #180 tabs 11/04/22 [Rx Last Taken Unknown] flash glucose scanning reader (Picmonic Jong 2 [place]) #1 ea 11/08/22 [Rx Last Taken Unknown] Allergy/AdvReac Type Severity Reaction Status Date / Time latex Allergy Rash Verified 11/20/22 12:27 adhesive tape AdvReac Rash Verified 11/20/22 12:27 ticagrelor [From Brilinta] AdvReac Shortness Verified 11/20/22 12:27 of breath Family History Father Heart disease Mother Breast cancer Diabetes Heart disease Surgical History H/O hemorrhoidectomy History of appendectomy History of arthroscopic knee surgery History of back surgery History of cardiac catheterization History of cholecystectomy History of coronary artery bypass graft x 3 (~04/08/16) History of hysterectomy History of knee replacement procedure of right knee History of right and left heart catheterization (LHC) (~08/10/19) History of right inguinal hernia repair Hx of CABG Hx of hand surgery Postlaminectomy syndrome of lumbar region Presence of coronary angioplasty implant and graft (~12/11/18) Social History (Updated 11/20/22 @ 12:35 by Rachel Strickland) household members: spouse housing: house Smoking Status: Never smoker alcohol intake: never substance use type: does not use caffeine: No ROS Constitutional Constitutional: Denies chills, fatigue, fever(s) or malaise Eyes Eyes: Denies blurry vision ENT HEENT: Denies headache(s) or nasal discharge Cardiovascular Cardiovascular: Reports chest pain; Denies dyspnea on exertion or syncope Respiratory/Chest Respiratory/Chest: Reports shortness of breath with exertion; Denies cough or shortness of breath at rest Gastrointestinal Gastrointestinal: Denies constipation, diarrhea, nausea or vomiting Genitourinary Genitourinary: Denies dysuria Neurologic Neurologic: Denies focal weakness, numbness or tremor(s) Psychiatric Psychiatric: Denies anxiety or depression Vital Signs Vital Signs Vital Signs: 11/20/22 12:26 11/20/22 12:27 11/20/22 12:32 Temperature 97.1 F L Temperature Source Temporal Pulse Rate 49 L Respiratory Rate 14 Respiratory Effort Normal Non-Labored Blood Pressure 143/60 H Blood Pressure Mean 87 Pulse Ox 95 Oxygen Delivery Method Room Air 11/20/22 12:52 11/20/22 14:37 11/20/22 14:45 Temperature Temperature Source Pulse Rate 52 L 53 L Respiratory Rate 16 16 Respiratory Effort Blood Pressure 153/66 H 140/88 H Blood Pressure Mean 95 105 Pulse Ox 92 94 92 Oxygen Delivery Method Room Air Room Air Room Air 11/20/22 15:00 11/20/22 16:23 11/20/22 18:11 Temperature Temperature Source Pulse Rate 58 L 50 L 50 L Respiratory Rate 16 13 15 Respiratory Effort Blood Pressure 188/82 H 124/82 H 151/66 H Blood Pressure Mean 117 96 94 Pulse Ox 92 90 92 Oxygen Delivery Method Room Air Room Air Weight Weight: 158 lb Body Mass Index (BMI) 28.0 Physical Exam Const alert, oriented x3 and no apparent distress General Appearance: cooperative HEENT normocephalic and moist oral mucous membranes Eyes PERRL, EOMs intact bilaterally and conjunctivae normal Neck supple and no JVD Resp normal respiratory effort, no retractions, no use of accessory muscles and clearto auscultation bilaterally Resp Narrative: Diminished Auscultation: Negative for crackles, rales, rhonchi or wheezes Cardio regular rate, regular rhythm, S1 normal heart sound, S2 normal heart sound and no murmurs Cardio Narrative: Chest pain on palpation different from pain that brought her to the ER GI soft to palpation, non-tender and non-distended; Negative for hepatosplenomegaly Extremity no clubbing, cyanosis or edema Skin no rashes or lesions noted Neuro no focal motor deficits and no sensory deficits noted Psych affect normal Appearance: appropriate Results Lab / Micro Data 11/20/22 12:48 11/20/22 12:48 Labs: Laboratory Results - last 24 hr 11/20/22 12:48: WBC 9.7, RBC 4.45, Hgb 13.2, Hct 42.4, MCV 95.3, MCH 29.7, MCHC 31.1 L, RDW Std Deviation 49.5 H, RDW Coeff of Laquita 14.2, Plt Count 281, MPV 11.7, Immature Gran % (Auto) 0.400, Neut % (Auto) 69.0, Lymph % (Auto) 19.3, [place] % (Auto) 8.3, Eos % (Auto) 2.3, Baso % (Auto) 0.7, Absolute Neuts (auto) 6.7, Absolute Lymphs (auto) 1.88, Nucleated RBC % 0, Differential Comment SCANNED, PT 20.6 H, INR 1.8, Sodium 135 L, Potassium 3.8, Chloride 101, Carbon Dioxide 25.0, Anion Gap 9, BUN 44 H, Creatinine 2.34 H, Estim Creat Clear Calc 14.54, Est GFR (MDRD) Af Amer 25 L, Est GFR (MDRD) Non-Af 21 L, BUN/Creatinine Ratio 18.8, Glucose 164 H, Calcium 9.0, Troponin I High Sens 12 11/20/22 14:25: D-Dimer Quant (PE/DVT) 1.94 H* 11/20/22 15:15: Troponin I High Sens 13 Radiology Impression Chest X-Ray 11/20/22 13:10 IMPRESSION: No acute cardiopulmonary abnormality. No interval change Electronically Signed: Tonny Breen MD at 13:25 EDT Reading Location ID and State: [address] [place] [address] Tel , Service support , Assessment & Plan Assessment/Plan (1) Chest pain: PLAN: Plan 1. Chest pain/HTN/HLD/paroxysmal A-fib/CAD status post CABG and stent ? Her troponins were unremarkable, her initial troponin was 12 and her delta troponin was 13, will not pursue stress test at this time she can follow-up withher rn case mgr ? Because of her chest pain and her elevated D-dimer and her ambulatory hypoxia,we will proceed with a VQ scan though if a PE is discovered we will not make much difference as we will just continue with her Coumadin as she cannot afford Eliquis or Xarelto ? We will have an ambulatory pulse ox in the morning and she will likely need oxygen on discharge and would likely benefit from an outpatient pulmonology evaluation ? Her blood pressure is stable, will resume all of her home blood pressure medications continue with aspirin as well as her statin ? We will continue with her Coumadin, her INR today was 1.8 ? She had an echo on 07/19/2022 with a normal EF and pulmonary artery systolic pressure of 25 mmHg, and stage I diastolic dysfunction ? Her last stress test was on 07/17/2021 which was normal and her last heart cath was 12/11/2018 2. IDDM 2 ? Can resume her home blood sugar medications ? Accu-Cheks ACHS, will monitor for now and if necessary can add sliding scale insulin ? We will place on a calorie controlled cardiac diet ? We will hold her Jardiance 3. Hypothyroidism ? Stable ? Continue with Synthroid DVT: Coumadin 75 minutes was spent on documentation, chart review, [id number] patient evaluation as well as discussion with colleagues Charges/Coding Visit Charges Inpatient E&M: 77740 Init Hosp L3 11/20/22 5892 <Electronically signed by Bernardino Briceno MD> Cosigner Signature (if applicable): CC: Dr. Jose J Lezama DO; Dr. Bernardino Briceno MD~ Signed [facility] Work Phone: 1(820) 501-186710-11-2023 Discharge summary Author Dc Mcpherson [facility] November 20, 2022 5:34pm Note Date/Time November 20, 2022 1 2:55pm [facility] Medical Records Department [address] [place] [address] Emergency Department Summary 11/20/22 MR#: [id number] Acct: [id number] Name: GLORIA PAUL Rep #:[id number] : 1935 87 From: Afua Fernandez DO PCP: Dr. Jose J Lezama DO Status:REG ER Location: ED HPI History of Present Illness Chief Complaint: Chest Pain Detail of Chief Complaint: Chest pain Informant: patient and spouse/S.O. Narrative Narrative: Patient presents to the emergency department complaint of chest pain that started about 2 hours ago. Patient states that she was at rest sitting when thepain started. She describes a sharp pain that really does not radiate anywhere but she also has a headache. She denies nausea or vomiting. She denies feelingshort of breath. Denies injury to her chest. She denies recent travel or surgery. Patient is on warfarin. She does have history of coronary artery disease with prior CABG. She denies recent illness and has had no cough or fever. [facility] Medical History (HFpEF) heart failure with preserved ejection fraction Acute on chronic heart failure with preserved ejection fraction (HFpEF) Ambulates with cane Angina pectoris Arthritis Atherosclerotic heart disease of [place] coronary artery without angina pectoris Back pain Broken ribs CAD (coronary artery disease) CAD (coronary artery disease) Cardiology follow-up encounter Carotid stenosis, left Chronic anticoagulation Chronic renal failure, stage 3 (moderate) Congestive heart failure Coronary artery disease CPAP (continuous positive airway pressure) dependence Debility Diabetes Diabetes mellitus, type 2 Dietary restriction Difficulty swallowing Easy bruising Essential hypertension Fatigue Fibromyalgia GERD (gastroesophageal reflux disease) High cholesterol History of atrial fibrillation History of CHF (congestive heart failure) History of echocardiogram History of pain when walking History of renal disease History of stress test History of stroke Hypertension Hypothyroidism Insulin dependent diabetes mellitus 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 Lower GI bleeding Lumbosacral radiculopathy Microalbuminuria Migraine headache New onset atrial fibrillation Non-smoker Obstructive sleep apnea Osteoarthritis of left knee 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 PAF (paroxysmal atrial fibrillation) Post-menopausal Presence of stent in coronary artery (~12/11/18) Pulmonary HTN Pure hypercholesterolemia Renal cancer Shortness of breath on exertion Stroke/cerebrovascular accident Thyroid disease Vertigo Wears hearing aid Home Medications aspirin 81 mg tablet,delayed release (Adult Low Dose Aspirin) 81 mg PO DAILY heart health 01/01/19 [History Last Taken 07/18/22] oxybutynin chloride 10 mg tablet,extended release 24 hr 10 mg PO DAILY BLADDER 03/23/19 [History Last Taken 07/18/22] levothyroxine 50 mcg tablet 50 mcg PO DAILY thyroid 05/10/20 [History Last Taken 07/18/22] cholecalciferol (vitamin D3) 25 mcg (1,000 unit) capsule (Vitamin D3) 25 mcg PO QODAY vitamin 06/20/21 [History Last Taken 07/17/22] duloxetine 30 mg capsule,delayed release 30 mg PO DAILY 02/28/22 [History Last Taken 07/18/22] diphenhydramine 25 mg-acetaminophen 500 mg tablet (Tylenol PM Extra Strength) 1 tab PO QHS 04/18/22 [History Last Taken Unknown] insulin lispro 100 unit/mL subcutaneous pen (Humalog KwikPen (U-100) Insulin) 27unit subcut TID PRN PRN SLIDING SCALE 05/23/22 [History Last Taken 07/18/22] insulin glargine 100 unit/mL (3 mL) subcutaneous pen (Lantus Solostar U-100 Insulin) 27 unit subcut QPM 06/06/22 [History Last Taken 07/17/22] insulin NPH isoph U-100 human 100 unit/mL (3 mL) subcutaneous pen (Novolin N FlexPen) 7 unit (0.07 mL) subcut HS #3 mL 06/20/22 [Rx Last Taken 07/17/22] atorvastatin 40 mg tablet 40 mg PO QHS cholesterol #90 tabs 08/20/22 [Rx Last Taken Unknown] furosemide 40 mg tablet 40 mg PO .COMPLEX #180 tabs 08/20/22 [Rx Last Taken Unknown] hydralazine 100 mg tablet 100 mg PO TID #270 tabs 08/20/22 [Rx Last Taken Unknown] nitroglycerin 0.4 mg sublingual tablet 0.4 mg sublingual Q5M PRN chest pain #25 tabs 08/20/22 [Rx Last Taken Unknown] ranolazine 500 mg tablet,extended release,12 hr 500 mg PO BID #180 tabs 08/20/22[Rx Last Taken Unknown] warfarin 4 mg tablet 4 mg PO .COMPLEX #180 tabs 08/20/22 [Rx Last Taken Unknown] empagliflozin 25 mg tablet (Jardiance) 25 mg PO DAILY #30 tabs 08/29/22 [Rx Last Taken Unknown] gabapentin 300 mg capsule 600 mg PO TID nerve pain 11/01/22 [History Last Taken Unknown] isosorbide mononitrate 60 mg tablet,extended release 24 hr 60 mg PO BID #180 tabs 11/01/22 [Rx Last Taken Unknown] metoprolol tartrate 50 mg tablet 50 mg PO BID #180 tabs 11/04/22 [Rx Last Taken Unknown] flash glucose scanning reader (Picmonic Jong 2 [place]) #1 ea 11/08/22 [Rx Last Taken Unknown] Allergy/AdvReac Type Severity Reaction Status Date / Time latex Allergy Rash Verified 11/20/22 12:27 adhesive tape AdvReac Rash Verified 11/20/22 12:27 ticagrelor [From Brilinta] AdvReac Shortness Verified 11/20/22 12:27 of breath Family History Father Heart disease Mother Breast cancer Diabetes Heart disease Surgical History H/O hemorrhoidectomy History of appendectomy History of arthroscopic knee surgery History of back surgery History of cardiac catheterization History of cholecystectomy History of coronary artery bypass graft x 3 (~04/08/16) History of hysterectomy History of knee replacement procedure of right knee History of right and left heart catheterization (LHC) (~08/10/19) History of right inguinal hernia repair Hx of CABG Hx of hand surgery Postlaminectomy syndrome of lumbar region Presence of coronary angioplasty implant and graft (~12/11/18) Social History (Updated 11/20/22 @ 12:35 by Rachel Strickland) household members: spouse housing: house Smoking Status: Never smoker alcohol intake: never substance use type: does not use caffeine: No ROS ROS ED Review of Systems ROS Unobtainable: other Constitutional Constitutional ED: Reports lethargy; Denies chills, fever(s), sweats or weight loss Eyes Eyes: Denies blurry vision, change in vision or diplopia ENT ENT ED: Denies rhinorrhea or sore throat Cardiovascular Cardiovascular: Reports chest pain; Denies orthopnea or racing heartbeat Respiratory/Chest Respiratory/Chest: Denies cough, dyspnea, dyspnea on exertion, orthopnea or sputum Gastrointestinal Gastrointestinal: Denies abdominal pain, diarrhea, nausea or vomiting Genitourinary Genitourinary ED: Denies dysuria, hematuria or urinary frequency Musculoskeletal Musculoskeletal: Denies arthralgias, back pain, myalgias or neck pain Integumentary Denies abscess, Abrasions or rash Neurologic Neurologic: Denies headache(s) or weakness Psychiatric Psychiatric: Denies anxiety, depression or suicidal thoughts Endocrine Endocrinology: Denies polydipsia, polyphagia or polyuria Hematologic/Lymphatic Hematologic/Lymphatic: Denies easy bleeding, easy bruising or lymphadenopathy Allergic/Immunologic Allergic/Immunologic ED: Denies mouth swelling, tongue swelling or urticaria EXAM Physical Exam Const Vital Signs: 11/20/22 12:26 11/20/22 12:27 11/20/22 12:32 Temperature 97.1 F L Temperature Source Temporal Pulse Rate 49 L Respiratory Rate 14 Respiratory Effort Normal Non-Labored Blood Pressure 143/60 H Blood Pressure Mean 87 Pulse Ox 95 Oxygen Delivery Method Room Air 11/20/22 12:52 Temperature Temperature Source Pulse Rate Respiratory Rate Respiratory Effort Blood Pressure Blood Pressure Mean Pulse Ox 92 Oxygen Delivery Method Room Air Positive well nourished and well developed General Appearance ED: well developed and NAD HEENT Reports TM's clear and moist mucous membranes normocephalic and atraumatic; Negative for trauma or tenderness Tympanic Membrane ED: Yes TM's clear Eyes PERRL and EOMs intact bilaterally General Eye ED: Negative for pale conjunctiva or scleral icterus Neck no lymphadenopathy, supple and no JVD General: Negative for tenderness Chest Wall inspection of chest normal Chest Narrative: Tenderness palpation over the right anterior chest wall that seems to reproduce her pain. Chest: Negative for tenderness Resp normal respiratory effort and clear to auscultation bilaterally Effort and Inspection: Negative for respiratory distress or pain with movement Auscultation: Negative for rhonchi, wheezes or diminished lung sounds Cardio regular rate, regular rhythm, S1 normal heart sound, S2 normal heart sound and no murmurs Peripheral Pulses: pulses 2+ throughout GI normal to inspection, nondistended, normoactive bowel sounds, soft to palpation,non-tender, non-distended and no masses Back/Spine no CVA tenderness and no thoracic nor lumbar tenderness Extremity normal to inspection General Extremety ED: Negative for edema General Extremity: Negative for edema Neuro oriented x3, CN's II-XII intact bilaterally, no sensory deficits noted and gait normal Sensorium / Orientation: awake, alert, oriented to person, oriented to place andoriented to time Motor Exam: strength 5/5 throughout and strength abnormal Psych mental status grossly normal Skin no rashes or lesions noted and no wounds MDM MDM MDM Narrative Medical decision making narrative: Patient presents with sudden onset right-sided chest pain. In the differential would be PE versus acute coronary syndrome versus pneumothorax or chest wall pain. On exam pain somewhat reproducible but not completely. EKG obtained showed a sinus rhythm with a rate of 54 bpm with no acute ST segment changes. CBC with differential showed a white count of 9.7 with hemoglobin of 13 and platelet count of 281. Chemistries show a BUN of 44 and creatinine 2.34. Troponin normal at 12. D-dimer was elevated 1.94. INR was 1.8. Chest x-ray obtained showed no acute disease process. At this point etiology of her pain isunclear. She is somewhat therapeutic on her INR and still concerned about possibility for PE as no other etiology for her pain is found. We will obtain adelta troponin. Patient a very difficult IV stick and given her kidney functionwill be unable to obtain CTA of her chest. Case will be discussed with hospitalist to evaluate patient for admission for possible VQ scan. I did discuss case with hospitalist on-call who notes that patient has a Wells score of 0 and he has low suspicion for PE however if delta troponin is positive she will require admission. Patient may also be admitted for VQ scan if she has ongoing pain. Discussed this with evening physician and care of patient will beturned over to evening physician awaiting final disposition once delta troponin returns. Lab Data Attestation: I reviewed the patient's lab results. Labs: Laboratory Results - last 24 hr 11/20/22 11/20/22 12:48 14:25 WBC 9.7 RBC 4.45 Hgb 13.2 Hct 42.4 MCV 95.3 MCH 29.7 MCHC 31.1 L RDW Std Deviation 49.5 H RDW Coeff of Laquita 14.2 Plt Count 281 MPV 11.7 Immature Gran % (Auto) 0.400 Neut % (Auto) 69.0 Lymph % (Auto) 19.3 Lanier % (Auto) 8.3 Eos % (Auto) 2.3 Baso % (Auto) 0.7 Absolute Neuts (auto) 6.7 Absolute Lymphs (auto) 1.88 Nucleated RBC % 0 Differential Comment SCANNED PT 20.6 H INR 1.8 D-Dimer Quant (PE/DVT) 1.94 H* Sodium 135 L Potassium 3.8 Chloride 101 Carbon Dioxide 25.0 Anion Gap 9 BUN 44 H Creatinine 2.34 H Estim Creat Clear Calc 14.54 Est GFR (MDRD) Af Amer 25 L Est GFR (MDRD) Non-Af 21 L BUN/Creatinine Ratio 18.8 Glucose 164 H Calcium 9.0 Troponin I High Sens 12 Radiography Chest X-Ray - ED: 1 View Diagnostic Testing: Clinical Impression(s) from Imaging Studies Chest X-Ray 11/20/22 13:10 IMPRESSION: No acute cardiopulmonary abnormality. No interval change Electronically Signed: Tonny Breen MD at 13:25 EDT Reading Location ID and State: [address] [place] [address] Tel , Service support , 1 view chest x-ray obtained interpreted by myself as no evidence of infiltrate or pneumothorax or acute disease process. Radiology in agreement. EKG Initial EKG: Attestation: I personally reviewed and interpreted this EKG as follows: Comments: Sinus rhythm with a rate of 54 bpm with no acute ST segment changes Discharge Plan Dx/Rx/DC Orders Clinical Impression: History of coronary artery disease, Chest pain, Hypertension Disposition Disposition: Acute Care Hospital [facility] What to do if you have Problems For any increased pain, shortness of breath, bleeding, nausea or vomiting, chestpain, or any unexpected problems, contact your Primary Care Provider. Call [facility] ([phone]) or report to the closest Emergency Room. Call 911 if necessary. 11/20/22 1542 <Electronically signed by Afua Fernandez DO> Cosigner Signature (if applicable): CC: Dr. Jose J Lezama DO ~ Signed ADDENDUM by Dr. Dc Mcpherson MD on 11/20/22 at 1734 87-year-old female turned over to me from Dr. Afua Fernandez. Patient with atypical right-sided chest pain. Known renal insufficiency. Elevated D-dimer. For that reason he could not get a CTA of the chest. Initial and 2-hour troponin were both normal. Patient was ambulated her pulse ox dropped down into the 82 to 85% range. Hospitalist will admit for atypical chest pain and consider getting a VQ scan tomorrow. 11/20/22 1734<Electronically signed by Dc Mcpherson MD> Cosigner Signature (if applicable): cc: Dr. Jose J Lezama DO ~* Signed [facility] Work Phone: [phone] 184-935907-24-2023 Discharge summary Author Andres Yarbrough [facility] September 02, 2022 1:32pm Note Date/Time September 02, 2022 10:3 7am [facility] Medical Records Department [address] [place] [address] Emergency Department Summary 09/02/22 MR#: [id number] Acct: [id number] Name: GLORIA PAUL Rep #:[id number] : 1935 86 From: Andres Centeno PCP: Dr. Jose J Lezama DO Status:REG ER Location: ED HPI HPI - Fall History of Present Illness Chief Complaint: Fall Informant: patient and spouse/S.O. Narrative Narrative: Dents here with significant other and mechanical fall yesterday at [employer]. She is on warfarin. States was standing at the pe[place] when she lost her balance, falling and hitting her hip and her head. No loss of conscious. She is on warfarin for history of paroxysmal A-fib. Denies headache nausea or vomiting. She ambulates with a walker. States there is a bump to her hip. Also reports left rib pain. No dyspnea. Prior similar symptoms: No PFSH PFSH Medical History (HFpEF) heart failure with preserved ejection fraction Acute on chronic heart failure with preserved ejection fraction (HFpEF) Ambulates with cane Angina pectoris Arthritis Atherosclerotic heart disease of [place] coronary artery without angina pectoris Back pain Broken ribs CAD (coronary artery disease) CAD (coronary artery disease) Cardiology follow-up encounter Carotid stenosis, left Chronic anticoagulation Chronic renal failure, stage 3 (moderate) Congestive heart failure Coronary artery disease CPAP (continuous positive airway pressure) dependence Debility Diabetes Diabetes mellitus, type 2 Dietary restriction Difficulty swallowing Easy bruising Essential hypertension Fatigue Fibromyalgia GERD (gastroesophageal reflux disease) High cholesterol History of atrial fibrillation History of CHF (congestive heart failure) History of echocardiogram History of pain when walking History of renal disease History of stress test History of stroke Hypertension Hypothyroidism Insulin dependent diabetes mellitus 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 Lower GI bleeding Lumbosacral radiculopathy Microalbuminuria Migraine headache New onset atrial fibrillation Non-smoker Obstructive sleep apnea Osteoarthritis of left knee 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 PAF (paroxysmal atrial fibrillation) Post-menopausal Presence of stent in coronary artery (~12/11/18) Pulmonary HTN Pure hypercholesterolemia Renal cancer Shortness of breath on exertion Stroke/cerebrovascular accident Thyroid disease Vertigo Wears hearing aid Home Medications aspirin 81 mg tablet,delayed release (Adult Low Dose Aspirin) 81 mg PO DAILY heart health 01/01/19 [History Last Taken 07/18/22] oxybutynin chloride 10 mg tablet,extended release 24 hr 10 mg PO DAILY BLADDER 03/23/19 [History Last Taken 07/18/22] levothyroxine 50 mcg tablet 50 mcg PO DAILY thyroid 05/10/20 [History Last Taken 07/18/22] cholecalciferol (vitamin D3) 25 mcg (1,000 unit) capsule (Vitamin D3) 25 mcg PO QODAY vitamin 06/20/21 [History Last Taken 07/17/22] duloxetine 30 mg capsule,delayed release 30 mg PO DAILY 02/28/22 [History Last Taken 07/18/22] diphenhydramine 25 mg-acetaminophen 500 mg tablet (Tylenol PM Extra Strength) 1 tab PO QHS 04/18/22 [History Last Taken Unknown] insulin lispro 100 unit/mL subcutaneous pen (Humalog KwikPen (U-100) Insulin) 27unit subcut TID PRN PRN SLIDING SCALE 04/13/23 [History Last Taken 07/18/22] insulin glargine 100 unit/mL (3 mL) subcutaneous pen (Lantus Solostar U-100 Insulin) 27 unit subcut QPM 06/06/22 [History Last Taken 07/17/22] insulin NPH isoph U-100 human 100 unit/mL (3 mL) subcutaneous pen (Novolin N FlexPen) 7 unit (0.07 mL) subcut HS #3 mL 06/20/22 [Rx Last Taken 07/17/22] atorvastatin 40 mg tablet 40 mg PO QHS cholesterol #90 tabs 08/20/22 [Rx Last Taken Unknown] furosemide 40 mg tablet 40 mg PO .COMPLEX #180 tabs 08/20/22 [Rx Last Taken Unknown] hydralazine 100 mg tablet 100 mg PO TID #270 tabs 08/20/22 [Rx Last Taken Unknown] isosorbide mononitrate 60 mg tablet,extended release 24 hr 60 mg PO DAILY #90 tabs 08/20/22 [Rx Last Taken Unknown] nitroglycerin 0.4 mg sublingual tablet 0.4 mg sublingual Q5M PRN chest pain #25 tabs 08/20/22 [Rx Last Taken Unknown] ranolazine 500 mg tablet,extended release,12 hr 500 mg PO BID #180 tabs 08/20/22[Rx Last Taken Unknown] warfarin 4 mg tablet 4 mg PO .COMPLEX #180 tabs 08/20/22 [Rx Last Taken Unknown] empagliflozin 25 mg tablet (Jardiance) 25 mg PO DAILY #30 tabs 08/29/22 [Rx Last Taken Unknown] gabapentin 300 mg capsule 600 mg PO BID nerve pain 08/29/22 [History Last Taken Unknown] Allergy/AdvReac Type Severity Reaction Status Date / Time latex Allergy Rash Verified 08/29/22 13:59 adhesive tape AdvReac Rash Verified 08/29/22 13:59 ticagrelor [From Brilinta] AdvReac Shortness Verified 08/29/22 13:59 of breath Family History Father Heart disease Mother Breast cancer Diabetes Heart disease Surgical History H/O hemorrhoidectomy History of appendectomy History of arthroscopic knee surgery History of back surgery History of cardiac catheterization History of cholecystectomy History of coronary artery bypass graft x 3 (~04/08/16) History of hysterectomy History of knee replacement procedure of right knee History of right and left heart catheterization (LHC) (~08/10/19) History of right inguinal hernia repair Hx of CABG Hx of hand surgery Postlaminectomy syndrome of lumbar region Presence of coronary angioplasty implant and graft (~12/11/18) Social History Smoking Status: Never smoker alcohol intake: never substance use type: does not use caffeine: No ROS ROS ED Constitutional Constitutional ED: Denies chills, fever(s) or sweats Eyes Eyes: Denies change in vision ENT ENT ED: Denies dysphagia or sore throat Cardiovascular Cardiovascular: Denies chest pain, leg edema, palpitations or racing heartbeat Respiratory/Chest Respiratory/Chest: Reports other Details: Left rib pain ; Denies cough, dyspnea or dyspnea on exertion Gastrointestinal Gastrointestinal: Denies abdominal pain, diarrhea, nausea or vomiting Genitourinary Genitourinary ED: Denies dysuria, hematuria or urinary frequency Musculoskeletal Musculoskeletal: Reports extremity pain; Denies back pain or neck pain Integumentary Denies rash or wounds Neurologic Neurologic: Reports headache(s); Denies paresthesias or weakness EXAM Physical Exam Const Vital Signs: 09/02/22 09:45 09/02/22 11:25 Temperature 97.6 F L 98.2 F Temperature Source Temporal Pulse Rate 63 Respiratory Rate 18 Respiratory Effort Normal Short of Breath Respiratory Depth Normal Respiratory Pattern Normal Blood Pressure 134/64 H Blood Pressure Mean 87 Pulse Ox 100 93 Oxygen Delivery Method Room Air Room Air Positive well nourished and well developed Constitutional Narrative: GCS 15 General Appearance ED: well developed and NAD HEENT Reports moist mucous membranes HEENT Narrative: Small abrasion left forehead dried blood. No lacerations. No hemotympanums. normocephalic Eyes PERRL, EOMs intact bilaterally and conjunctivae normal General Eye ED: Yes normal appearance of both eyes Neck full ROM, no lymphadenopathy and supple General: Negative for tenderness Chest Wall Chest Narrative: Tender palpation left lower ribs no crepitus. Chest: tenderness Resp normal respiratory effort and normal air movement Resp Narrative: Symmetric breath sounds Effort and Inspection: symmetric chest movement; Negative for respiratory distress Cardio regular rate, regular rhythm and no murmurs Peripheral Pulses: pulses 2+ throughout GI normal to inspection, nondistended, normoactive bowel sounds and non-tender GI Narrative: Small ecchymosis left lower abdomen however this is injection sites for the patient. Palpation: Negative for guarding or rebound tenderness present Back/Spine no CVA tenderness and no thoracic nor lumbar tenderness Extremity Extremity Narrative: Left lower extremity: Negative logroll, however there was a swelling hematoma onher lateral hip. No ecchymosis noted. Tender to palpation. No lacerations. General Extremety ED: Negative for edema or tenderness General Extremity: Negative for edema Neuro oriented x3 and no sensory deficits noted Sensorium / Orientation: awake and alert Skin no rashes or lesions noted Skin Narrative: See above MDM MDM MDM Narrative Medical decision making narrative: Interventions / MDM: Differential diagnosis: Fall, hip contusion Diagnosis considered but do not suspect: Intracranial hemorrhage, cervical spinefracture, rib fracture, hip fracture, however image studies are negative. My EKG interpretation: N/A Imaging independently reviewed and interpreted by myself: CT brain/cervical spine: No acute process. CT chest: No fractures or pneumothorax. Left hip 3 views with pelvis: No fractures. Soft tissue swelling noted. Also read by radiology. External documents reviewed: N/A Test considered but not ordered:N/A ED course: Trauma cannot obtain head neck chest due to fall on warfarin. Left hip x-ray also ordered. Lab results slightly supratherapeutic INR at 3.8. Trauma scans are negative. Patient more reassured. 1245: Plan for ambulating the patient with her walker. However on reevaluation states her glucose monitor reporting 54. She states mild nausea. Will give juice and check her fingerstick glucose. Tylenol given to help with hip pain. Will reevaluate and plan to ambulate. 1330: Patient able ambulate steady gait. Blood glucose 79. She will continue Tylenol as needed. Outpatient follow-up. All questions were answered. Re-evaluation: stable Disposition discussed with patient/family/significant other: Patient and significant other Case discussed with consulting clinician: N/A This note was generated with [employer] dictation software. It may contain incorrectwords, spelling, and punctuation that were not noted in checking the note beforesigning. Lab Data Attestation: I reviewed the patient's lab results. Labs: Laboratory Results - last 24 hr 09/02/22 09/02/22 11:25 12:51 WBC 11.7 H RBC 3.78 L Hgb 11.4 L Hct 36.2 L MCV 95.8 MCH 30.2 MCHC 31.5 L RDW Std Deviation 51.3 H RDW Coeff of Laquita 14.8 H Plt Count 204 MPV 10.8 Immature Gran % (Auto) 0.700 Neut % (Auto) 66.7 Lymph % (Auto) 18.7 L Lanier % (Auto) 10.6 H Eos % (Auto) 2.8 Baso % (Auto) 0.5 Absolute Neuts (auto) 7.8 H Absolute Lymphs (auto) 2.19 Nucleated RBC % 0 PT 38.4 H INR 3.8 APTT 61.2 H Sodium 138 Potassium 3.8 Chloride 108 H Carbon Dioxide 27.0 Anion Gap 3 L BUN 29 H Creatinine 1.55 H Estim Creat Clear Calc 22.35 Est GFR (MDRD) Af Amer 41 L Est GFR (MDRD) Non-Af 34 L BUN/Creatinine Ratio 18.7 Glucose 79 Calcium 8.6 POC Glucose 49 L Radiography Diagnostic Testing: Clinical Impression(s) from Imaging Studies Brain CT 09/02/22 10:13 IMPRESSION: Chronic involutional changes of the brain. Mild degree of mucosal thickening of the right sphenoid sinus. Electronically Signed: Sai Calhoun MD at 12:07 EDT , Cervical Spine CT 09/02/22 10:13 IMPRESSION: Normal unenhanced CT examination of the cervical spine. Electronically Signed: Sai Calhoun MD at 12:14 EDT , Chest CT 09/02/22 10:13 IMPRESSION: Findings suggestive of scarring in the right upper lobe. Mild scarring and/or linear atelectasis at the lung bases. Electronically Signed: Sai Calhoun MD at 12:11 EDT , Hip/Pelvis X-Ray 09/02/22 11:55 IMPRESSION: Degenerative changes. No acute abnormality is seen. Electronically Signed: Sai Calhoun MD at 12:16 EDT , Discharge Plan Triage Chief Complaint: Fall ED Provider: Andres Yarbrough Dx/Rx/DC Orders Clinical Impression: CHI (closed head injury), Chronic anticoagulation, Chest wall contusion, Contusion of hip, left Instructions: ED Chest Wall Contusion, ED Head Injury (Adult), ED Hip Contusion Prescriptions: No Action aspirin [Adult Low Dose Aspirin] 81 mg tablet,delayed release (DR/EC) 81 mg PO DAILY gabapentin 300 mg capsule 600 mg PO BID cholecalciferol (vitamin D3) [Vitamin D3] 25 mcg (1,000 unit) capsule 25 mcg PO QODAY levothyroxine 50 mcg tablet 50 mcg PO DAILY duloxetine 30 mg capsule,delayed release(DR/EC) 30 mg PO DAILY diphenhydramine-acetaminophen [Tylenol PM Extra Strength] 25-500 mg tablet 1 tab PO QHS insulin glargine [Lantus Solostar U-100 Insulin] 100 unit/mL (3 mL) insulin pen 27 unit subcut QPM Novolin N FlexPen 100 unit/mL (3 mL) insulin pen 7 unit subcut HS Qty: 3 5RF Jardiance 25 mg tablet 25 mg PO DAILY Qty: 30 5RF oxybutynin chloride 10 MG tablet extended release 24hr 10 mg PO DAILY insulin lispro [Humalog KwikPen Insulin] 100 unit/mL insulin pen 27 unit subcut TID PRN PRN (Reason: SLIDING SCALE) atorvastatin 40 mg tablet 40 mg PO QHS Qty: 90 3RF furosemide 40 mg tablet 40 mg PO .COMPLEX Qty: 180 3RF Rx Instructions: 40 mg orally daily, may take 1 extra pill daily for weight gain, swelling, orshortness of breath; hydralazine 100 mg tablet 100 mg PO TID Qty: 270 3RF isosorbide mononitrate 60 mg tablet extended release 24 hr 60 mg PO DAILY Qty: 90 3RF nitroglycerin 0.4 mg tablet, sublingual 0.4 mg SUBLINGUAL Q5M PRN (Reason: chest pain) Qty: 25 3RF Rx Instructions: do not exceed 3 doses per episode ranolazine 500 mg tablet extended release 12 hr 500 mg PO BID Qty: 180 3RF warfarin 4 mg tablet 4 mg PO .COMPLEX Qty: 180 3RF Protocol: Dose Management Condition: Friday Dose/Route: 6 mg Instruction: 1.5 x 4 mg tablets Condition: Friday Dose/Route: 4 mg Instruction: 1 x 4 mg tablet Condition: Friday Dose/Route: 4 mg Instruction: 1 x 4 mg tablet Condition: Friday Dose/Route: 4 mg Instruction: 1 x 4 mg tablet Condition: Dose/Route: 4 mg Instruction: 1 x 4 mg tablet Condition: Friday Dose/Route: 4 mg Instruction: 1 x 4 mg tablet Condition: Friday Dose/Route: 6 mg Instruction: 1.5 x 4 mg tablets Protocol Text: Adjustment Start Date: Friday08/20/22 INR Value: 2.5 INR Date: 08/05/22 Recheck Date: 08/26/22 Rx Instructions: 4 mg orally daily Friday through Friday ; and take 1and a half tablets (6mg) on Sat and Sun; or as directed; Primary Care Provider: Jose J Lezama Referrals: Jose J Lezama, [Primary Care Provider] - 3-5 Days Activity Restrictions/Additional Instructions: Your CT head and neck is negative. CT chest also negative for any fractures. Hip x-ray negative. Your INR 3.8 today. Hold your warfarin today, call your doctor office who manages your warfarin for discussion for restart dosing and recheck of your warfarin levels. Continue Tylenol as needed for pain control. Disposition Disposition: Home, Self Care What to do if you have Problems For any increased pain, shortness of breath, bleeding, nausea or vomiting, chestpain, or any unexpected problems, contact your Primary Care Provider. Call [facility] ([phone]) or report to the closest Emergency Room. Call 911 if necessary. 09/02/22 1332 <Electronically signed by Andres Centeno> Cosigner Signature (if applicable): CC: Dr. Jose J Lezama DO ~ Signed [facility] Work Phone: [phone] Hospital Discharge instructions Additional Instructions Your CT head and neck is negative. CT chest also negative for any fractures. Hip x-ray negative. Your INR 3.8 today. Hold your warfarin today, call your doctor office who manages your warfarin for discussion for restart dosing and recheck of your warfarin levels. Continue Tylenol as needed for pain control.[facility] Work Phone: [phone] 890-893506-15-[address] Cristobal [facility] July 25, 2022 12:10pm Note Date/Time July 25, 2022 12:1 0pm [facility] Medical Records Department [address] [place] [address] Transfer to [facility] MR#: [id number] Acct: [id number] Name: GLORIA PAUL Rep #:[id number] : 1935 [id number] From: Lisset Cristobal MD PCP: Dr. Jose J Lezama DO Status:ADM IN Certification of patient admission REQUIRED AT TIME OF ADMISSION. I CERTIFY THAT [facility] ARE REQUIRED TO BE GIVEN ON AN IN-PATIENT BASIS BECAUSE OF THE ABOVE NAMED PATIENT'S NEED FOR [facility] CARE ON A CONTINUING BASIS FOR THE CONDITION(S) FOR WHICH HE/SHE WAS RECEIVING IN-PATIENT HOSPITAL SERVICES PRIOR TO HIS/HER TRANSFER TO THE [facility]. 07/25/22 1210<Electronically signed by Lisset Cristobal MD> Diet Diet Order/Speech Therapy: 07/19/22 13:36 Diet: Cardiac: Calorie-Controlled Food consistency:: Regular Liquid Consistency:: Regular/Thin Is pt able to select menu?: Yes How many daily calories?: 1600 calorie Routine Orders/Code Status Enema Type: Fleetz Enema Frequency: Daily PRN Suppository Type: Dulcolax 10mg Suppository Frequency: Daily PRN O2 Frequency: PRN Keep PO Greater than or Equal to (%): 90 Therapies Weight Bearing: Weight bearing as tolerated Physical Therapy: Eval and Treat Occupational Therapy: Eval and Treat Problem/Diagnosis (1) Vertigo: Status: Acute Code(s): R42 - Dizziness and giddiness (2) Hypoxia: Status: Acute Code(s): R09.02 - Hypoxemia Plan #Near syncope * MRI negative for stroke. Orthostatics were also negative. * PT OT on board. Fall precautions. * resolved. * #Left foot pain with debility * pain much better today. * left DP pulse present and strong on doppler * no differential warmth or redness. 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 She is not complaining of right foot pain. * Patient notes that she is unable to even ambulate. PT OT consulted to evaluate patient for possible placement. * Now complains of bilateral foot pain. * ABP I done showed left ankle-brachial index of 0.86 indicating moderate arterial insufficiency with Doppler waveforms revealing distal SFA popliteal disease and right TBI be 1.69 which could be artificially elevated due to noncompressible vessels. * She is not complaining of pain in both legs up to her knees so it does not seem like it is due to any vascular insufficiency. She does not have any tenderness with palpation of her lower extremities. It is difficult to ascertain the cause of this pain. * on p.o. oxycodone. PT OT on board. Pain much better today * #Hypoxia * resolved * PO lasix 40mg daily * 2D echo showed EF of 65% with stage 1 diastolic dysfunction and no regional wall motion abnormalities noted. * breathing treatments with bronchodilators * titrate oxygen to maintain sats >90% * resolved. * #CAD s/p CABG: On aspirin and metoprolol as well as atorvastatin. #Heart failure preserved ejection fraction: * Does not appear to be in exacerbation. * New EF of 70% on echo in September 2021. 2D echo as above. * On Lasix 40 mg daily. #CKD stage IV: Creatinine is around baseline at 1.33 today. Will monitor. #Type 2 diabetes mellitus: On Lantus 30 units qhs. Insulin sliding scale. Accu- Cheks ACHS. A1C is 7.8. #PAroxysmal afib: * on coumadin. * her insurance doesnt cover xarelto or eliquis. * INR today is 2.52 * #Hypothyroidism: * TSH is 6.4. * On Synthroid 50 mcg daily. due to her advanced age, will maintain the dose of synthroid and not adjust based on the TSS. DVT prophylaxis: on coumadin. INR is therapeutic at 2.5 today Disposition: Will benefit from placement and now receptive to placement. Case management on board to help facilitate placement. Allergies/Procedures Done in Hospital Allergies latex Allergy (Verified 07/18/22 10:44) Rash adhesive tape Adverse Reaction (Verified 07/18/22 10:44) Rash ticagrelor [From Brilinta] Adverse Reaction (Verified 07/18/22 10:44) Shortness of breath Procedures: None Type of Care/Length of Stay Estimated LOS: Convalescent Care Less Than 30 days Type of Care Needed: Skilled Rehab Potential: Fair Prognosis: Fair Additional Orders/Day of Discharge Day of Discharge: 07/25/22 Dietary and Speech Recommendations Dietitian Recommendations/Changes: Will change diet to [address] Cardiac Please consult if diet education desired by pt prior to d/c. Discharge Plan Admission Admit Date/Time: 07/18/22 14:46 Primary Reason for Your Visit: hypoxia Attending Provider: Lisset Cristobal Primary Care Provider: Jose J Lezama Consulting Providers: Roshan Horan Instructions Patient Instructions: Coping with Heart Failure Discharge Orders/Prescriptions Prescriptions: Continued gabapentin 300 mg capsule 300 mg PO BID aspirin [Adult Low Dose Aspirin] 81 mg tablet,delayed release (DR/EC) 81 mg PO DAILY cholecalciferol (vitamin D3) [Vitamin D3] 25 mcg (1,000 unit) capsule 25 mcg PO QODAY levothyroxine 50 mcg tablet 50 mcg PO DAILY atorvastatin 40 mg tablet 40 mg PO QHS duloxetine 30 mg capsule,delayed release(DR/EC) 30 mg PO DAILY metoprolol tartrate 50 mg tablet 50 mg PO BID isosorbide mononitrate 60 mg tablet extended release 24 hr 60 mg PO DAILY hydralazine 50 mg tablet 100 mg PO TID diphenhydramine-acetaminophen [Tylenol PM Extra Strength] 25-500 mg tablet 1 tab PO QHS insulin glargine [Lantus Solostar U-100 Insulin] 100 unit/mL (3 mL) insulin pen 27 unit subcut QPM Novolin N FlexPen 100 unit/mL (3 mL) insulin pen 7 unit subcut HS Qty: 3 5RF oxybutynin chloride 10 MG tablet extended release 24hr 10 mg PO DAILY insulin lispro [Humalog KwikPen Insulin] 100 unit/mL insulin pen 27 unit subcut TID PRN PRN (Reason: SLIDING SCALE) nitroglycerin 0.4 mg tablet, sublingual 0.4 mg SUBLINGUAL Q5M PRN (Reason: chest pain) Qty: 25 3RF Rx Instructions: do not exceed 3 doses per episode warfarin 4 mg tablet 4 mg PO DAILY Qty: 30 11RF Protocol: Dose Management Condition: Friday Dose/Route: 4 mg Instruction: 1 x 4 mg tablet Condition: Friday Dose/Route: 6 mg Instruction: 1.5 x 4 mg tablets Condition: Friday Dose/Route: 4 mg Instruction: 1 x 4 mg tablet Condition: Friday Dose/Route: 6 mg Instruction: 1.5 x 4 mg tablets Condition: Dose/Route: 4 mg Instruction: 1 x 4 mg tablet Condition: Friday Dose/Route: 4 mg Instruction: 1 x 4 mg tablet Condition: Friday Dose/Route: 4 mg Instruction: 1 x 4 mg tablet Protocol Text: Adjustment Start Date: Friday07/17/22 INR Value: 1.6 INR Date: 07/17/22 Recheck Date: 07/24/22 furosemide 20 mg tablet 40 mg PO DAILY Qty: 270 3RF Rx Instructions: and may take 1 tab extra as needed Referrals / Follow Up: Nayan Cee MD [Med Staff - Active Staff] - 08/08/22 1:30 pm (Appointment is with Bam Phillips N.P.) Jose J eLzama DO [Primary Care Provider] - 07/31/22 8:50 am Disposition Disposition (needs filled in before D/C Order can be placed): Detention Facility 07/25/22 1210 <Electronically signed by Lisset Cristobal MD> Cosigner Signature (if applicable): CC: Dr. Jose J Lezama DO; Dr. Roshan Horan MD ~ [facility] Work Phone: [phone]) 360-198006-14-[address] Cristobal [facility] July 24, 2022 12:04pm Note Date/Time July 24, 2022 12:0 3pm [facility] Medical Records Department [address] [place] [address] [place] [address] Progress Note 07/24/22 1200 MR#: [id number] Acct: [id number] Name: GLORIA PAUL Rep #:[id number] : 1935 86 From: Lisset Cristobal MD PCP: Dr. Jose J Lezama, DO Status:ADM IN Location: [place] [address] Subjective Subjective Patient seen and examined. She says she felt better than she did yesterday. She had no other complaints and review of systems otherwise negative. Plan was to discharge her today but [facility] Case management on board to help with discharge planning. She has remained hemodynamically stable. Objective Data Objective Data Vital Signs: Vital Signs Temp Pulse Resp BP Pulse Ox O2 Del Method O2 Flow Rate 97.5 F L 65 20 H 114/62 94 Room Air 2 07/24/22 10:27 07/24/22 11:54 07/24/22 10:27 07/24/22 11:54 07/24/22 10:27 07/24/22 10:27 07/23/22 04:43 Oxygen Flow Rate (L/min) 2 Oxygen Delivery Method Room Air Weight: 166 lb 0.129 oz Body Mass Index (BMI) 29.4 Intake & Output: Intake and Output for Last 24 Hours 07/22/22 07/23/22 07/24/22 23:59 23:59 23:59 Intake Total 240 / 240 880 / 880 480 / 480 Output Total 500 / 900 1900 / 1900 450 / 450 Balance -260 / -660 -1020 / -1020 30 30 Lab / Micro Data Result Diagrams: 07/24/22 08:18 07/24/22 08:18 Labs: Laboratory Results - last 24 hr 07/22/22 05:00: Diff Path Review Reviewed 07/23/22 04:53: WBC 12.7 H, RBC 4.39, Hgb 13.3, Hct 41.7, MCV 95.0, MCH 30.3, MCHC 31.9 L, RDW Std Deviation 47.5 H, RDW Coeff of Laquita 13.6, Plt Count 182, MPV12.8 H, Immature Gran % (Auto) 0.400, Neut % (Auto) 62.2, Lymph % (Auto) 22.6, Lanier % (Auto) 11.1 H, Eos % (Auto) 2.9, Baso % (Auto) 0.8, Absolute Neuts (auto)7.9 H, Absolute Lymphs (auto) 2.86, Nucleated RBC % 0 07/23/22 04:53: Sodium 135 L, Potassium 4.0, Chloride 104, Carbon Dioxide 24.0, Anion Gap 7, BUN 32 H, Creatinine 1.39 H, Estim Creat Clear Calc 24.92, Est GFR (MDRD) Af Amer 46 L, Est GFR (MDRD) Non-Af 38 L, BUN/Creatinine Ratio 23.0 H, Glucose 180 H, Calcium 9.2 07/23/22 15:45: POC Glucose 163 H 07/23/22 21:40: POC Glucose 141 H 07/24/22 08:18: WBC 12.1 H, RBC 4.55, Hgb 13.8, Hct 43.2, MCV 94.9, MCH 30.3, MCHC 31.9 L, RDW Std Deviation 48.0 H, RDW Coeff of Laquita 13.7, Plt Count 239, MPV11.7, Immature Gran % (Auto) 0.500, Neut % (Auto) 66.5, Lymph % (Auto) 18.8 L, Lanier % (Auto) 9.3, Eos % (Auto) 4.2, Baso % (Auto) 0.7, Absolute Neuts (auto) 8.1 H, Absolute Lymphs (auto) 2.27, Nucleated RBC % 0 07/24/22 08:18: Sodium 134 L, Potassium 4.0, Chloride 103, Carbon Dioxide 20.0 L, Anion Gap 11, BUN 44 H, Creatinine 1.42 H, Estim Creat Clear Calc 24.40, Est GFR (MDRD) Af Amer 45 L, Est GFR (MDRD) Non-Af 37 L, BUN/Creatinine Ratio 31.0 H, Glucose 211 H, Calcium 9.4 07/24/22 08:18: PT 24.6 H, INR 2.2 07/24/22 08:36: POC Glucose 210 H 07/24/22 11:13: POC Glucose 158 H Physical Exam Const alert, oriented x3 and no apparent distress General Appearance: cooperative HEENT normocephalic, head/scalp atraumatic, moist oral mucous membranes and oropharynxnormal Eyes PERRL and EOMs intact bilaterally Neck no lymphadenopathy, supple and no JVD Lymph Lymphatic: no lymphadenopathy noted and no lymphedema noted Resp Resp Narrative: Minimally diminished breath sounds bibasally. No wheezes or crackles. Cardio regular rate, regular rhythm, S1 normal heart sound, S2 normal heart sound and no murmurs GI normal to inspection, nondistended, normoactive bowel sounds, soft to palpation,non-tender and non-distended Extremity normal capillary refill Extremity Narrative: left DP pulse present on doppler USG. No palpable tenderness on palpation of dorsum of right and left feet, bilateral calves all the way up to her knees. Distal pulses present. No differential warmth or erythema. Skin General Skin Exam: no breakdown Neuro CN's II-XII intact bilaterally, no focal motor deficits and no sensory deficits noted Motor Exam: strength 5/5 throughout Psych thought process normal and cooperative Appearance: appropriate Assessment & Plan Assessment/Plan (1) Vertigo: (2) Hypoxia: PLAN: Plan #Near syncope * MRI negative for stroke. Orthostatics were also negative. * PT OT on board. Fall precautions. * resolved. * #Left foot pain with debility * pain much better today. * left DP pulse present and strong on doppler * no differential warmth or redness. 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 She is not complaining of right foot pain. * Patient notes that she is unable to even ambulate. PT OT consulted to evaluate patient for possible placement. * Now complains of bilateral foot pain. * ABP I done showed left ankle-brachial index of 0.86 indicating moderate arterial insufficiency with Doppler waveforms revealing distal SFA popliteal disease and right TBI be 1.69 which could be artificially elevated due to noncompressible vessels. * She is not complaining of pain in both legs up to her knees so it does not seem like it is due to any vascular insufficiency. She does not have any tenderness with palpation of her lower extremities. It is difficult to ascertain the cause of this pain. * on p.o. oxycodone. PT OT on board. Pain much better today * #Hypoxia * resolved * PO lasix 40mg daily * 2D echo showed EF of 65% with stage 1 diastolic dysfunction and no regional wall motion abnormalities noted. * breathing treatments with bronchodilators * titrate oxygen to maintain sats >90% * resolved. * #CAD s/p CABG: On aspirin and metoprolol as well as atorvastatin. #Heart failure preserved ejection fraction: * Does not appear to be in exacerbation. * New EF of 70% on echo in September 2021. 2D echo as above. * On Lasix 40 mg daily. #CKD stage IV: Creatinine is around baseline at 1.33 today. Will monitor. #Type 2 diabetes mellitus: On Lantus 30 units qhs. Insulin sliding scale. Accu- Cheks ACHS. A1C is 7.8. #PAroxysmal afib: * on coumadin. * her insurance doesnt cover xarelto or eliquis. * INR today is 2.52 * #Hypothyroidism: * TSH is 6.4. * On Synthroid 50 mcg daily. due to her advanced age, will maintain the dose of synthroid and not adjust based on the TSS. DVT prophylaxis: on coumadin. INR is therapeutic at 2.5 today Disposition: Will benefit from placement and now receptive to placement. Case management on board to help facilitate placement. Charges/Coding Visit Charges Inpatient E&M: 11343 Subs Hosp L2 07/24/22 1204 <Electronically signed by Lisset Cristobal MD> Lisset Cristobal MD Cosigner Signature (if applicable): CC: ~ Signed [facility] Work Phone: [phone]) 816-923206-13-[address] Cristobal [facility] July 23, 2022 4:04pm Note Date/Time July 23, 2022 4:04 pm [facility] Medical Records Department [address] [place] [address] Progress Note 07/23/22 1601 MR#: [id number] Acct: [id number] Name: GLORIA PAUL Karol Rep #:[id number] : 1935 86 From: Lisset Cristobal MD PCP: Dr. Jose J Lezama, DO Status:ADM IN Location: [place] [address] Subjective Subjective Patient seen and examined. She was lying comfortably in bed. However she now states she has pain in both of her legs that she is not able to weight-bear on her legs. She is not able to characterize out the pain and so tell me the severity of the pain but does say she has pain in her legs. Review of systems otherwise negative. Objective Data Objective Data Vital Signs: Vital Signs Temp Pulse Resp BP Pulse Ox O2 Del Method O2 Flow Rate 98.0 F 70 18 142/70 H 93 Room Air 2 07/23/22 14:48 07/23/22 15:54 07/23/22 14:48 07/23/22 15:54 07/23/22 14:48 07/23/22 14:48 07/23/22 04:43 Oxygen Flow Rate (L/min) 2 Oxygen Delivery Method Room Air Weight: 166 lb 0.129 oz Body Mass Index (BMI) 29.4 Intake & Output: Intake and Output for Last 24 Hours 07/21/22 07/22/22 07/23/22 23:59 23:59 23:59 Intake Total 480 / 480 240 / 240 580 / 580 Output Total 1250 / 1250 500 / 900 800 / 800 Balance -770 / -770 -260 / -660 -220 / -220 Lab / Micro Data Result Diagrams: 07/23/22 04:53 07/23/22 04:53 Labs: Laboratory Results - last 24 hr 07/22/22 05:00: Diff Path Review Reviewed 07/22/22 16:36: POC Glucose 268 H 07/23/22 00:02: POC Glucose 187 H 07/23/22 04:53: PT 27.5 H, INR 2.5 07/23/22 04:53: WBC 12.7 H, RBC 4.39, Hgb 13.3, Hct 41.7, MCV 95.0, MCH 30.3, MCHC 31.9 L, RDW Std Deviation 47.5 H, RDW Coeff of Laquita 13.6, Plt Count 182, MPV12.8 H, Immature Gran % (Auto) 0.400, Neut % (Auto) 62.2, Lymph % (Auto) 22.6, Lanier % (Auto) 11.1 H, Eos % (Auto) 2.9, Baso % (Auto) 0.8, Absolute Neuts (auto)7.9 H, Absolute Lymphs (auto) 2.86, Nucleated RBC % 0 07/23/22 04:53: Sodium 135 L, Potassium 4.0, Chloride 104, Carbon Dioxide 24.0, Anion Gap 7, BUN 32 H, Creatinine 1.39 H, Estim Creat Clear Calc 24.92, Est GFR (MDRD) Af Amer 46 L, Est GFR (MDRD) Non-Af 38 L, BUN/Creatinine Ratio 23.0 H, Glucose 180 H, Calcium 9.2 07/23/22 08:11: POC Glucose 232 H 07/23/22 11:00: POC Glucose 216 H Radiography Diagnostic Testing: Radiology Impression Extremity Arterial Study 07/20/22 11:38 Interpretation Summary Right MUKESH 1.69, artificially elevated due to non-compressible vessels. TBI and Doppler/PVR waveforms of the right leg normal at rest. Left MUKESH 0.86, moderate arterial insufficiency. Doppler/PVR waveforms reveal distal SFA/popliteal disease Ordering Physician: Lisset Cristobal Referring Physician: Jose J Lezama Performed By: Aneta Horner RVT Physical Exam Const alert, oriented x3 and no apparent distress General Appearance: cooperative HEENT normocephalic, head/scalp atraumatic, moist oral mucous membranes and oropharynxnormal Eyes PERRL and EOMs intact bilaterally Neck no lymphadenopathy, supple and no JVD Lymph Lymphatic: no lymphadenopathy noted and no lymphedema noted Resp Resp Narrative: Minimally diminished breath sounds bibasally. No wheezes or crackles. Cardio regular rate, regular rhythm, S1 normal heart sound, S2 normal heart sound and no murmurs GI normal to inspection, nondistended, normoactive bowel sounds, soft to palpation,non-tender and non-distended Extremity normal capillary refill Extremity Narrative: left DP pulse present on doppler USG. No palpable tenderness on palpation of dorsum of right and left feet, bilateral calves all the way up to her knees. Distal pulses present. No differential warmth or erythema. Skin General Skin Exam: no breakdown Neuro CN's II-XII intact bilaterally, no focal motor deficits and no sensory deficits noted Motor Exam: strength 5/5 throughout Psych thought process normal and cooperative Appearance: appropriate Assessment & Plan Assessment/Plan (1) Vertigo: (2) Hypoxia: PLAN: Plan #Near syncope * MRI negative for stroke. Orthostatics were also negative. * PT OT on board. Fall precautions. * resolved. * #Left foot pain with debility * left DP pulse present and strong on doppler * no differential warmth or redness. 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 She is not complaining of right foot pain. * Patient notes that she is unable to even ambulate. PT OT consulted to evaluate patient for possible placement. * Now complains of bilateral foot pain. * ABP I done showed left ankle-brachial index of 0.86 indicating moderate arterial insufficiency with Doppler waveforms revealing distal SFA popliteal disease and right TBI be 1.69 which could be artificially elevated due to noncompressible vessels. * She is not complaining of pain in both legs up to her knees so it does not seem like it is due to any vascular insufficiency. She does not have any t enderness with palpation of her lower extremities. It is difficult to ascertain the cause of this pain. * Will place on p.o. oxycodone. PT OT on board. * #Hypoxia * resolved * PO lasix 40mg daily * 2D echo showed EF of 65% with stage 1 diastolic dysfunction and no regional wall motion abnormalities noted. * breathing treatments with bronchodilators * titrate oxygen to maintain sats >90% * resolved. * #CAD s/p CABG: On aspirin and metoprolol as well as atorvastatin. #Heart failure preserved ejection fraction: * Does not appear to be in exacerbation. * New EF of 70% on echo in September 2021. 2D echo as above. * On Lasix 40 mg daily. #CKD stage IV: Creatinine is around baseline at 1.33 today. Will monitor. #Type 2 diabetes mellitus: On Lantus 30 units qhs. Insulin sliding scale. Accu- Cheks ACHS. A1C is 7.8. #PAroxysmal afib: * on coumadin. * her insurance doesnt cover xarelto or eliquis. * INR today is 2.5. * #Hypothyroidism: * TSH is 6.4. * On Synthroid 50 mcg daily. due to her advanced age, will maintain the dose of synthroid and not adjust based on the TSS. DVT prophylaxis: on coumadin. INR is therapeutic at 2.5 today Disposition: Will benefit from placement. PT.OT consulted to evaluate patient; await PT/OT recommendations. Charges/Coding Visit Charges Inpatient E&M: 59077 Subs Hosp L2 07/23/22 1604 <Electronically signed by Lisset Cristobal MD> Lisset Cristobal MD Cosigner Signature (if applicable): CC: ~ Signed [facility] Work Phone: [phone]) 751-751606-12-2023 [facility] July 22, 2022 4:27pm Note Date/Time July 22, 2022 4:25 pm [facility] Medical Records Department [address] [place] [address] Progress Note 07/22/22 1618 MR#: [id number] Acct: [id number] Name: GLORIA PAUL Rep #:[id number] : 1935 86 From: Lisset Cristobal MD PCP: Dr. Jose J Lezama, DO Status:ADM IN Location: [place] [address] Subjective Subjective Patient seen and examined. She still complains of pain of her left foot. Subsequently said it was not on her right foot to x-ray done yesterday showed evidence of arthrosis of the foot. Patient refused to get out of bed today and states she could not even ambulate. Plan was to discharge her home today but patient essentially says she could not go because she could not ambulate well. Physical therapy consulted to review patient. She has remained hemodynamically stable. Objective Data Objective Data Vital Signs: Vital Signs Temp Pulse Resp BP Pulse Ox O2 Del Method O2 Flow Rate 98.2 F 82 16 122/63 H 92 Room Air 2 07/22/22 09:45 07/22/22 12:00 07/22/22 09:45 07/22/22 12:00 07/22/22 14:00 07/22/22 14:00 07/22/22 02:37 Oxygen Flow Rate (L/min) 2 Oxygen Delivery Method Room Air Weight: 166 lb 0.129 oz Body Mass Index (BMI) 29.4 Intake & Output: Intake and Output for Last 24 Hours 07/20/22 07/21/22 07/22/22 23:59 23:59 23:59 Intake Total 600 / 600 480 / 480 Output Total 1250 / 1250 300 / 300 Balance 600 / 600 -770 / -770 -300 / -300 Lab / Micro Data Result Diagrams: 07/22/22 05:00 07/22/22 05:00 Labs: Laboratory Results - last 24 hr 07/21/22 16:58: POC Glucose 188 H 07/21/22 21:01: POC Glucose 102 07/22/22 05:00: PT 22.9 H, INR 2.0 07/22/22 05:00: WBC 15.1 H, RBC 4.25, Hgb 13.0, Hct 40.3, MCV 94.8, MCH 30.6, MCHC 32.3, RDW Std Deviation 47.8 H, RDW Coeff of Laquita 13.6, Plt Count 195, MPV 12.7 H, Immature Gran % (Auto) 0.400, Neut % (Auto) 68.9, Lymph % (Auto) 17.0 L,Lanier % (Auto) 10.9 H, Eos % (Auto) 2.0, Baso % (Auto) 0.8, Absolute Neuts (auto)10.4 H, Absolute Lymphs (auto) 2.57, Nucleated RBC % 0, Differential Comment SCANNED, Diff Path Review June07/22/22 05:00: Sodium 136, Potassium 3.8, Chloride 105, Carbon Dioxide 21.0, Anion Gap 10, BUN 27 H, Creatinine 1.23 H, Estim Creat Clear Calc 28.16, Est GFR(MDRD) Af Amer 53 L, Est GFR (MDRD) Non-Af 44 L, BUN/Creatinine Ratio 22.0 H, Glucose 199 H, Calcium 9.3 07/22/22 07:48: POC Glucose 207 H 07/22/22 10:56: POC Glucose 97 Physical Exam Const alert, oriented x3 and no apparent distress General Appearance: cooperative HEENT normocephalic, head/scalp atraumatic, moist oral mucous membranes and oropharynxnormal Eyes PERRL and EOMs intact bilaterally Neck no lymphadenopathy, supple and no JVD Lymph Lymphatic: no lymphadenopathy noted and no lymphedema noted Resp Resp Narrative: Minimally diminished breath sounds bibasally. No wheezes or crackles. Cardio regular rate, regular rhythm, S1 normal heart sound, S2 normal heart sound and no murmurs GI normal to inspection, nondistended, normoactive bowel sounds, soft to palpation,non-tender and non-distended Extremity normal capillary refill Extremity Narrative: left DP pulse present on doppler USG. moderate tenderness on palpation of dorsumof left foot. no swelling, redness or differential warmth Skin General Skin Exam: no breakdown Neuro CN's II-XII intact bilaterally, no focal motor deficits and no sensory deficits noted Motor Exam: strength 5/5 throughout Psych thought process normal and cooperative Appearance: appropriate Assessment & Plan Assessment/Plan (1) Vertigo: (2) Hypoxia: PLAN: Plan #Near syncope * MRI negative for stroke. Orthostatics were also negative. * PT OT on board. Fall precautions. * resolved. * #Left foot pain with debility * left DP pulse present and strong on doppler * no differential warmth or redness. 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 She is not compl aining of right foot pain. * Patient notes that she is unable to even ambulate. PT OT consulted to e valuate patient for possible placement. * * #Hypoxia * resolved * PO lasix 40mg daily * 2D echo showed EF of 65% with stage 1 diastolic dysfunction and no regional wall motion abnormalities noted. * breathing treatments with bronchodilators * titrate oxygen to maintain sats >90% * resolved. * #CAD s/p CABG: On aspirin and metoprolol as well as atorvastatin. #Heart failure preserved ejection fraction: * Does not appear to be in exacerbation. * New EF of 70% on echo in September 2021. 2D echo as above. * On Lasix 40 mg daily. #CKD stage IV: Creatinine is around baseline at 1.33 today. Will monitor. #Type 2 diabetes mellitus: On Lantus 30 units qhs. Insulin sliding scale. Accu- Cheks ACHS. A1C is 7.8. #PAroxysmal afib: * on coumadin. INR is 2 * will give 10mg of coumadin today * her insurance doesnt cover xarelto or eliquis. * * #Hypothyroidism: * TSH is 6.4. * On Synthroid 50 mcg daily. due to her advanced age, will maintain the dose of synthroid and not adjust based on the TSS. DVT prophylaxis: on coumadin. INR is therapeutic at 2 today Disposition: Will benefit from placement. PT.OT consulted to evaluate patient; await PT/OT recommendations. Charges/Coding Visit Charges Inpatient E&M: 53275 Subs Hosp L2 07/22/22 1627 <Electronically signed by Lisset Cristobal MD> Lisset Cristobal MD Cosigner Signature (if applicable): CC: ~ Signed [facility] Work Phone: [phone]) [phone] Cristobal [facility] July 21, 2022 4:35pm Note Date/Time July 21, 2022 10:3 8am [facility] Medical Records Department [address] [place] [address] Progress Note 07/21/22 1034 MR#: [id number] Acct: [id number] Name: GLORIA PAUL Rep #:[id number] : 1935 86 From: Lisset Cristobal MD PCP: Dr. Jose J Lezama, DO Status:ADM IN Location: [place] [address] Subjective Subjective Patient seen and examined. She still complains of left foot pain. She has no other complaints. REview of systems is otherwise negative. BP is elevated with systolic in the 180s today. INR is subtherapeutic still at 1.6 today. Objective Data Objective Data Vital Signs: Vital Signs Temp Pulse Resp BP Pulse Ox O2 Del Method O2 Flow Rate 97.7 F L 74 18 183/72 H 94 Room Air 2 07/21/22 09:30 07/21/22 10:11 07/21/22 09:30 07/21/22 10:11 07/21/22 09:30 07/21/22 09:30 07/20/22 21:06 Oxygen Flow Rate (L/min) 2 Oxygen Delivery Method Room Air Weight: 166 lb 0.129 oz Body Mass Index (BMI) 29.4 Intake & Output: Intake and Output for Last 24 Hours 07/19/22 07/20/22 07/21/22 23:59 23:59 23:59 Intake Total 1190 / 1190 600 / 600 Balance 1190 / 1190 600 / 600 Lab / Micro Data Result Diagrams: 07/20/22 05:45 07/20/22 05:45 Labs: Laboratory Results - last 24 hr 07/20/22 11:20: POC Glucose 230 H 07/20/22 16:08: POC Glucose 111 H 07/20/22 21:00: POC Glucose 237 H 07/21/22 04:57: PT 18.8 H, INR 1.6 07/21/22 07:44: POC Glucose 257 H Physical Exam Const alert, oriented x3 and no apparent distress General Appearance: cooperative HEENT normocephalic, head/scalp atraumatic, moist oral mucous membranes and oropharynxnormal Eyes PERRL and EOMs intact bilaterally Neck no lymphadenopathy, supple and no JVD Lymph Lymphatic: no lymphadenopathy noted and no lymphedema noted Resp Resp Narrative: Minimally diminished breath sounds bibasally. No wheezes or crackles. Cardio regular rate, regular rhythm, S1 normal heart sound, S2 normal heart sound and no murmurs GI normal to inspection, nondistended, normoactive bowel sounds, soft to palpation,non-tender and non-distended Extremity normal capillary refill Extremity Narrative: left DP pulse present on doppler USG. moderate tenderness on palpation of dorsumof left foot. no swelling, redness or differential warmth Skin General Skin Exam: no breakdown Neuro CN's II-XII intact bilaterally, no focal motor deficits and no sensory deficits noted Motor Exam: strength 5/5 throughout Psych thought process normal and cooperative Appearance: appropriate Assessment & Plan Assessment/Plan (1) Vertigo: (2) Hypoxia: PLAN: Plan #near syncope * MRI negative for stroke. Orthostatics were also negative. * PT OT on board. Fall precautions. * resolved. * #Left foot pain * left DP pulse present and strong on doppler * no differential warmth or redness. * will get xray of the left foot. * * * #Hypoxia * She was admitted with complaints of shortness of breath. * GIve PO lasix 40mg daily * 2D echo showed EF of 65% with stage 1 diastolic dysfunction and no regional wall motion abnormalities noted. * breathing treatments with bronchodilators * titrate oxygen to maintain sats >90% * resolved. * #CAD s/p CABG: On aspirin and metoprolol as well as atorvastatin. #Heart failure preserved ejection fraction: * Does not appear to be in exacerbation. * New EF of 70% on echo in September 2021. 2D echo as above. * On Lasix 40 mg daily. #CKD stage IV: Creatinine is around baseline at 1.33 today. Will monitor. #Type 2 diabetes mellitus: On Lantus 30 units qhs. Insulin sliding scale. Accu- Cheks ACHS. A1C is 7.8. #PAroxysmal afib: * on coumadin. INR is 1.6 today. * will give 10mg of coumadin today * her insurance doesnt cover xarelto or eliquis. * * #Hypothyroidism: * TSH is 6.4. * On Synthroid 50 mcg daily. due to her advanced age, will maintain the dose of synthroid and not adjust based on the TSS. DVT prophylaxis: on coumadin. INR is still 1.6. WIll continue coumadin and adjust dose to make it therapeutic. Charges/Coding Visit Charges Inpatient E&M: 09911 Subs Hosp L2 07/21/22 6315 <Electronically signed by Lisset Cristobal MD> Lisset Cristobal MD Cosigner Signature (if applicable): CC: ~ Signed [facility] Work Phone: 1(891) 245-908206-10-2023 Progress [facility] July 20, 2022 5:43pm Note Date/Time July 20, 2022 5:02 pm [facility] Medical Records Department [address] [place] [id number] Progress Note 07/20/22 1652 MR#: [id number] Acct: [id number] Name: GLORIA PAUL Karol Rep #:[id number] : 1935 86 From: Lisset Cristobal MD PCP: Dr. Jose J Lezama, DO Status:ADM IN Location: [place] [address] Subjective Subjective Patient seen and examined. She was complaining of pain in her left foot today. Per her nurse she was noted to have diminished pulses in the left foot as well. She denied any fever, chills, shortness of breath, nausea vomiting or any other symptoms. Review of systems otherwise negative. She has remained hemodynamically stable. Objective Data Objective Data Vital Signs: Vital Signs Temp Pulse Resp BP Pulse Ox O2 Del Method O2 Flow Rate 97.9 F 71 18 162/67 H 94 Room Air 2 07/20/22 15:20 07/20/22 16:15 07/20/22 15:20 07/20/22 16:15 07/20/22 15:20 07/20/22 15:20 07/19/22 09:06 Oxygen Flow Rate (L/min) 2 Oxygen Delivery Method Room Air Weight: 166 lb 0.129 oz Body Mass Index (BMI) 29.4 Intake & Output: Intake and Output for Last 24 Hours 07/18/22 07/19/22 07/20/22 23:59 23:59 23:59 Intake Total 412.5 / 532.5 1190 / 1190 360 / 360 Balance 412.5 / 532.5 1190 / 1190 360 / 360 Lab / Micro Data Result Diagrams: 07/20/22 05:45 07/20/22 05:45 Labs: Laboratory Results - last 24 hr 07/19/22 16:53: POC Glucose 106 07/19/22 21:47: POC Glucose 151 H 07/20/22 05:45: WBC 11.3 H, RBC 4.07 L, Hgb 12.4, Hct 39.7, MCV 97.5, MCH 30.5, MCHC 31.2 L, RDW Std Deviation 49.8 H, RDW Coeff of Laquita 13.7, Plt Count 198, MPV11.9, Immature Gran % (Auto) 0.300, Neut % (Auto) 59.9, Lymph % (Auto) 25.2, Lanier % (Auto) 10.2 H, Eos % (Auto) 3.8, Baso % (Auto) 0.6, Absolute Neuts (auto)6.8, Absolute Lymphs (auto) 2.85, Nucleated RBC % 0 07/20/22 05:45: PT 18.9 H, INR 1.6 07/20/22 05:45: Sodium 139, Potassium 4.2, Chloride 108 H, Carbon Dioxide 25.0, Anion Gap 6, BUN 32 H, Creatinine 1.33 H, Estim Creat Clear Calc 26.05, Est GFR (MDRD) Af Amer 49 L, Est GFR (MDRD) Non-Af 40 L, BUN/Creatinine Ratio 24.1 H, Glucose 210 H, Calcium 8.9 07/20/22 08:06: POC Glucose 214 H 07/20/22 11:20: POC Glucose 230 H 07/20/22 16:08: POC Glucose 111 H Radiography Diagnostic Testing: Radiology Impression Echocardiogram 07/19/22 13:17 Interpretation Summary Normal LV size. Left ventricular systolic function is normal. The estimated ejection fraction is 65 %. Stage 1 diastolic dysfunction. Ordering Physician: Roshan Horan Referring Physician: Jose J Lezama Performed By: Rickie Gramajo RCS Physical Exam Const alert, oriented x3 and no apparent distress General Appearance: cooperative HEENT normocephalic, head/scalp atraumatic and moist oral mucous membranes Eyes PERRL and EOMs intact bilaterally Neck no lymphadenopathy, supple and no JVD Lymph Lymphatic: no lymphadenopathy noted and no lymphedema noted Resp Resp Narrative: Minimally diminished breath sounds bibasally. No wheezes or crackles. Cardio regular rate, regular rhythm, S1 normal heart sound, S2 normal heart sound and no murmurs GI normal to inspection, nondistended, normoactive bowel sounds, soft to palpation,non-tender and non-distended Extremity normal capillary refill Extremity Narrative: diminished left dorsalis pedis pulse. mild tenderness with palpation of left toes. No differential warmth and left foot is not cool to touch. No calf pain. Lest posterior tibialis pulse is palpable Skin General Skin Exam: no breakdown Neuro CN's II-XII intact bilaterally, no focal motor deficits and no sensory deficits noted Motor Exam: strength 5/5 throughout Psych thought process normal and cooperative Appearance: appropriate Assessment & Plan Assessment/Plan (1) Vertigo: (2) Hypoxia: PLAN: Plan #near syncope * MRI negative for stroke. Orthostatics were also negative. * PT OT on board. Fall precautions. * resolved. * #Left foot pain * also has diminished pulses in left foot (dorsalis pedis pulse) * no differential warmth and left foot is not cold * arterial duplex ordered, but it couldnt be done today. * will monitor for now * on coumadin, though INR is subtherapeutic at 1.6 today. * #Hypoxia * She was admitted with complaints of shortness of breath. * GIve PO lasix 40mg daily * 2D echo showed EF of 65% with stage 1 diastolic dysfunction and no regional wall motion abnormalities noted. * breathing treatments with bronchodilators * titrate oxygen to maintain sats >90% * * #CAD s/p CABG: On aspirin and metoprolol as well as atorvastatin. #Heart failure preserved ejection fraction: * Does not appear to be in exacerbation. * New EF of 70% on echo in September 2021. 2D echo as above. * On Lasix 40 mg daily. #CKD stage IV: Creatinine is around baseline at 1.33 today. Will monitor. #Type 2 diabetes mellitus: On Lantus 30 units qhs. Insulin sliding scale. Accu- Cheks ACHS. A1C is 7.8. #PAroxysmal afib: * on coumadin. INR is 1.6 today. * I Wll give 8mg of coumadin today. * Patient states she used to be on Eliquis but was switched to Coumadin because of insurance issues. * I did check Xarelto today but is also not on formulary. * Patient will therefore need to continue Coumadin and dose to be adjusted until INR is therapeutic. * #Hypothyroidism: * TSH is 6.4. * On Synthroid 50 mcg daily. due to her advanced age, will maintain the dose of synthroid and not adjust based on the TSS. DVT prophylaxis: on coumadin. INR is 1.6. WIll continue coumadin and adjust doseto make it therapeutic. Charges/Coding Visit Charges Inpatient E&M: 29453 Subs Hosp L2 07/20/22 8962 <Electronically signed by Lisset Cristobal MD> Lisset Cristobal MD Cosigner Signature (if applicable): CC: ~ Signed [facility] Work Phone: 1(374) 314-423606-09-[address] Cristobal [facility] July 19, 2022 5:43pm Note Date/Time July 19, 2022 3:51p m [facility] Medical Records Department [address] [place] [address] [place] [address] Progress Note 07/19/22 1547 MR#: [id number] Acct: [id number] Name: GLORIA PAUL Rep #:[id number] : 1935 86 From: Lisset Cristobal MD PCP: Dr. Jose J Lezama, DO Status:ADM IN Location: [place] [address] Subjective Subjective Patient seen and examined. She was admitted with a complaint of dizziness and lightheadedness and also had vertigo. She was admitted for stroke rule out. Healso complained of some shortness of breath. She she feels much better today. She denies any chest pain, palpitations, dizziness, nausea vomiting or any othersymptoms. Review of systems otherwise negative. She has remained hemodynamically stable. Objective Data Objective Data Vital Signs: Vital Signs Temp Pulse Resp BP Pulse Ox O2 Del Method O2 Flow Rate 97.7 F L 67 17 146/65 H 91 Room Air 2 07/19/22 13:05 07/19/22 13:05 07/19/22 13:05 07/19/22 13:05 07/19/22 13:14 07/19/22 13:14 07/19/22 09:06 Oxygen Flow Rate (L/min) 2 Oxygen Delivery Method Room Air Weight: 166 lb 0.129 oz Body Mass Index (BMI) 29.4 Intake & Output: Intake and Output for Last 24 Hours 07/17/22 07/18/22 07/19/22 23:59 23:59 23:59 Intake Total 412.5 / 532.5 690 / 690 Balance 412.5 / 532.5 690 / 690 Lab / Micro Data Result Diagrams: 07/19/22 04:34 07/19/22 04:34 Labs: Laboratory Results - last 24 hr 07/18/22 18:57: POC Glucose 177 H 07/18/22 21:22: POC Glucose 216 H 07/19/22 04:34: Sodium 140, Potassium 3.6, Chloride 109 H, Carbon Dioxide 24.0, Anion Gap 7, BUN 27 H, Creatinine 1.35 H, Estim Creat Clear Calc 25.66, Est GFR (MDRD) Af Amer 48 L, Est GFR (MDRD) Non-Af 40 L, BUN/Creatinine Ratio 20.0, Glucose 182 H, Calcium 8.8, Triglycerides 229 H, Cholesterol 148, LDL Cholesterol 54, VLDL Cholesterol 46 H, HDL Cholesterol 48, TSH 6.40 H 07/19/22 04:34: Hemoglobin A1c 7.8 H 07/19/22 04:34: WBC 9.3, RBC 4.22, Hgb 13.0, Hct 40.2, MCV 95.3, MCH 30.8, MCHC 32.3, RDW Std Deviation 48.7 H, RDW Coeff of Laquita 13.9, Plt Count 210, MPV 11.7, Immature Gran % (Auto) 0.400, Neut % (Auto) 59.9, Lymph % (Auto) 25.7, Lanier % (Auto) 8.6, Eos % (Auto) 4.6, Baso % (Auto) 0.8, Absolute Neuts (auto) 5.5, Absolute Lymphs (auto) 2.38, Nucleated RBC % 0 07/19/22 04:34: PT 19.5 H, INR 1.6 07/19/22 08:36: POC Glucose 259 H 07/19/22 11:34: POC Glucose 235 H Radiography Diagnostic Testing: Radiology Impression Brain MRI 07/19/22 09:00 IMPRESSION: No evidence for acute infarct. Small chronic right cerebellar infarct. Moderate chronic involutional and white matter changes. Electronically Signed: Asha Lew MD at 14:33 EDT Reading Location ID and State: [facility] / [place] Tel , Service support , Physical Exam Const alert, oriented x3 and no apparent distress General Appearance: cooperative HEENT normocephalic, head/scalp atraumatic and moist oral mucous membranes Eyes PERRL and EOMs intact bilaterally Neck no lymphadenopathy, supple and no JVD Lymph Lymphatic: no lymphadenopathy noted and no lymphedema noted Resp Resp Narrative: Minimally diminished breath sounds bibasally. No wheezes or crackles. Cardio regular rate, regular rhythm, S1 normal heart sound, S2 normal heart sound and no murmurs GI normal to inspection, nondistended, normoactive bowel sounds, soft to palpation,non-tender and non-distended Skin General Skin Exam: no breakdown Neuro CN's II-XII intact bilaterally, no focal motor deficits and no sensory deficits noted Motor Exam: strength 5/5 throughout Psych thought process normal and cooperative Appearance: appropriate Assessment & Plan Assessment/Plan (1) Vertigo: (2) Hypoxia: PLAN: Plan #near syncope * MRI negative for stroke. Orthostatics were also negative. * PT OT on board. Fall precautions. * #Hypoxia * She was admitted with complaints of shortness of breath. She is currently on IV Lasix. 2D echo ordered and pending. * There is concern about possible pulmonary hypertension that is contributing to her shortness of breath. Chest x-ray showed mild peripheral upper lobe cephalization but no evidence of fluid overload or pulmonary edema. * Titrate oxygen to maintain saturation above 90%. Breathing treatments of bronchodilators. #CAD s/p CABG: On aspirin and metoprolol as well as atorvastatin. #Heart failure preserved ejection fraction: Does not appear to be in exacerbation.-New EF of 70% on echo in September 2021. 2D echo ordered. On Lasix 40 mg daily. #CKD stage IV: Creatinine is at baseline. Will monitor. #Type 2 diabetes mellitus: On Lantus 30 units qhs. Insulin sliding scale. Accu- Cheks ACHS. A1C is 7.8. #Hypothyroidism: * TSH is 6.4. * On Synthroid 50 mcg daily. due to her advanced age, will maintain the dose of synthroid and not adjust based on the TSS. DVT prophylaxis: on coumadin. INR is 1.6. WIll continue coumadin and adjust doseto make it therapeutic. Charges/Coding Visit Charges Inpatient E&M: 20136 Subs Hosp L2 07/19/221742 <Electronically signed by Lisset Cristobal MD> Lisset Cristobal MD Cosigner Signature (if applicable): CC: ~ Signed [facility] Work Phone: [phone]) 550-810506-09-[address] Fernandez [facility] July 18, 2022 10:13pm Note Date/Time July 18, 2022 11:02 am [facility] Medical Records Department [address] [place] [address] Emergency Department Summary 07/18/22 MR#: [id number] Acct: [id number] Name: GLORIA PAUL Rep #:[id number] : 1935 86 From: Afua Fernandez DO PCP: Dr. Jose J Lezama DO Status:ADM IN Location: [place] [address] 1 HPI History of Present Illness Chief Complaint: Hyperglycemia Detail of Chief Complaint: Dizziness, nausea, and elevated blood sugar Informant: patient and spouse/S.O. Narrative Narrative: Patient presents to the emergency department with dizziness and nausea and concern for hyperglycemia. Patient states that she was doing laundry when she began feeling dizzy and nauseated. She then checked her blood sugar and it justread high. Patient states she has been taking her insulin regularly. Her sugars yesterday read in 200s. She denies recent illness. She denies chest pain or shortness of breath. She denies significant headache but just does not feel well. Patient on warfarin for history of prior stroke and history of A-fib. [facility] Medical History (Updated 07/18/22 @ 14:[address] Afua Fernandez DO) (HFpEF) heart failure with preserved ejection fraction Acute on chronic heart failure with preserved ejection fraction (HFpEF) Ambulates with cane Angina pectoris Arthritis Atherosclerotic heart disease of [place] coronary artery without angina pectoris Back pain Broken ribs CAD (coronary artery disease) CAD (coronary artery disease) Cardiology follow-up encounter Carotid stenosis, left Chronic renal failure, stage 3 (moderate) Congestive heart failure Coronary artery disease CPAP (continuous positive airway pressure) dependence Debility Diabetes Diabetes mellitus, type 2 Dietary restriction Difficulty swallowing Easy bruising Essential hypertension Fatigue Fibromyalgia GERD (gastroesophageal reflux disease) High cholesterol History of atrial fibrillation History of CHF (congestive heart failure) History of echocardiogram History of pain when walking History of renal disease History of stress test History of stroke Hypertension Hypothyroidism Insulin dependent diabetes mellitus 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 Lower GI bleeding Lumbosacral radiculopathy Microalbuminuria Migraine headache New onset atrial fibrillation Non-smoker Obstructive sleep apnea Osteoarthritis of left knee 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 PAF (paroxysmal atrial fibrillation) Post-menopausal Presence of stent in coronary artery (~12/11/18) Pure hypercholesterolemia Renal cancer Shortness of breath on exertion Stroke/cerebrovascular accident Thyroid disease Wears hearing aid Home Medications aspirin 81 mg tablet,delayed release (Adult Low Dose Aspirin) 81 mg PO DAILY heart health 01/01/19 [History Last Taken 05/18/22] gabapentin 300 mg capsule 300 mg PO BID nerve pain 01/01/19 [History Last Taken 05/24/22] oxybutynin chloride 10 mg tablet,extended release 24 hr 10 mg PO DAILY BLADDER 03/23/19 [History Last Taken 05/24/22] nitroglycerin 0.4 mg sublingual tablet 0.4 mg sublingual Q5M PRN chest pain #25 tabs 09/28/19 [Rx Last Taken Unknown] atorvastatin 40 mg tablet 40 mg PO QHS cholesterol 05/10/20 [History Last Taken Unknown] levothyroxine 50 mcg tablet 50 mcg PO DAILY thyroid 05/10/20 [History Last Taken 05/24/22] cholecalciferol (vitamin D3) 25 mcg (1,000 unit) capsule (Vitamin D3) 25 mcg PO 2XW vitamin 06/20/21 [History Last Taken Unknown] isosorbide mononitrate 60 mg tablet,extended release 24 hr 60 mg PO DAILY 02/14/22 [History Last Taken 05/24/22] duloxetine 30 mg capsule,delayed release 30 mg PO DAILY 02/28/22 [History Last Taken Unknown] metoprolol tartrate 50 mg tablet 50 mg PO BID blood pressure 02/28/22 [History Last Taken 05/24/22] diphenhydramine 25 mg-acetaminophen 500 mg tablet (Tylenol PM Extra Strength) 1 tab PO QHS 04/18/22 [History Last Taken Unknown] hydralazine 50 mg tablet 100 mg PO TID 04/18/22 [History Last Taken 05/24/22] insulin lispro 100 unit/mL subcutaneous pen (Humalog KwikPen (U-100) Insulin) 35unit subcut TID PRN PRN SLIDING SCALE 05/23/22 [History Last Taken 05/24/22] warfarin 4 mg tablet 4 mg PO DAILY #30 tabs 05/31/22 [Rx Last Taken Unknown] furosemide 20 mg tablet 40 mg PO DAILY #270 tabs 06/04/22 [Rx Last Taken Unknown] insulin glargine 100 unit/mL (3 mL) subcutaneous pen (Lantus Solostar U-100 Insulin) 35 unit subcut QPM 06/06/22 [History Last Taken Unknown] insulin NPH isoph U-100 human 100 unit/mL (3 mL) subcutaneous pen (Novolin N FlexPen) 7 unit (0.07 mL) subcut HS #3 mL 06/20/22 [Rx Last Taken Unknown] Allergy/AdvReac Type Severity Reaction Status Date / Time latex Allergy Rash Verified 07/18/22 10:44 adhesive tape AdvReac Rash Verified 07/18/22 10:44 ticagrelor [From Brilinta] AdvReac Shortness Verified 07/18/22 10:44 of breath Family History Father Heart disease Mother Breast cancer Diabetes Heart disease Surgical History H/O hemorrhoidectomy History of appendectomy History of arthroscopic knee surgery History of back surgery History of cardiac catheterization History of cholecystectomy History of coronary artery bypass graft x 3 (~04/08/16) History of hysterectomy History of knee replacement procedure of right knee History of right and left heart catheterization (LHC) (~08/10/19) History of right inguinal hernia repair Hx of CABG Hx of hand surgery Postlaminectomy syndrome of lumbar region Presence of coronary angioplasty implant and graft (~12/11/18) Social History Smoking Status: Never smoker alcohol intake: never substance use type: does not use caffeine: No ROS ROS ED ROS Narrative Dizziness Review of Systems ROS Unobtainable: other Constitutional Constitutional ED: Reports lethargy; Denies chills, fever(s), sweats or weight loss Eyes Eyes: Denies blurry vision, change in vision or diplopia ENT ENT ED: Denies rhinorrhea or sore throat Cardiovascular Cardiovascular: Denies chest pain, orthopnea or racing heartbeat Respiratory/Chest Respiratory/Chest: Denies cough, dyspnea, dyspnea on exertion, orthopnea or sputum Gastrointestinal Gastrointestinal: Reports nausea; Denies abdominal pain, diarrhea or vomiting Genitourinary Genitourinary ED: Denies dysuria, hematuria or urinary frequency Musculoskeletal Musculoskeletal: Denies arthralgias, back pain, myalgias or neck pain Integumentary Denies abscess, Abrasions or rash Neurologic Neurologic: Denies headache(s) or weakness Psychiatric Psychiatric: Denies anxiety, depression or suicidal thoughts Endocrine Endocrinology: Denies polydipsia, polyphagia or polyuria Hematologic/Lymphatic Hematologic/Lymphatic: Denies easy bleeding, easy bruising or lymphadenopathy Allergic/Immunologic Allergic/Immunologic ED: Denies mouth swelling, tongue swelling or urticaria EXAM Physical Exam Const Vital Signs: 07/18/22 10:43 07/18/22 12:31 07/18/22 12:42 Temperature 97.6 F L Temperature Source Temporal Pulse Rate 63 67 Pulse Rate [Lying] 65 Pulse Rate [Sitting (for 1 minute prior to obtaining)] 65 Pulse Rate [Standing (for 1 minute prior to obtaining)] 65 Respiratory Rate 14 16 Blood Pressure 136/64 H 158/74 H Blood Pressure [Lying] 155/66 H Blood Pressure [Sitting (for 1 minute prior to obtaining)] 180/82 H Blood Pressure [Standing (for 1 minute prior to obtaining)] 158/74 H Blood Pressure Mean 88 102 Blood Pressure Mean [Lying] 95 Blood Pressure Mean [Sitting (for 1 minute prior to obtaining)] 114 Blood Pressure Mean [Standing (for 1 minute prior to obtaining)] 102 Pulse Ox 94 91 Oxygen Delivery Method Room Air Room Air 07/18/22 14:06 Temperature Temperature Source Pulse Rate 69 Pulse Rate [Lying] Pulse Rate [Sitting (for 1 minute prior to obtaining)] Pulse Rate [Standing (for 1 minute prior to obtaining)] Respiratory Rate 20 H Blood Pressure 183/78 H Blood Pressure [Lying] Blood Pressure [Sitting (for 1 minute prior to obtaining)] Blood Pressure [Standing (for 1 minute prior to obtaining)] Blood Pressure Mean 113 Blood Pressure Mean [Lying] Blood Pressure Mean [Sitting (for 1 minute prior to obtaining)] Blood Pressure Mean [Standing (for 1 minute prior to obtaining)] Pulse Ox 91 Oxygen Delivery Method Room Air Positive well nourished and well developed General Appearance ED: well developed and NAD HEENT Reports TM's clear and moist mucous membranes normocephalic and atraumatic; Negative for trauma or tenderness Tympanic Membrane ED: Yes TM's clear Eyes PERRL and EOMs intact bilaterally General Eye ED: Negative for pale conjunctiva or scleral icterus Neck no lymphadenopathy, supple and no JVD General: Negative for tenderness Chest Wall inspection of chest normal and palpation of chest normal Chest: Negative for tenderness Resp normal respiratory effort and clear to auscultation bilaterally Effort and Inspection: Negative for respiratory distress or pain with movement Auscultation: Negative for rhonchi, wheezes or diminished lung sounds Cardio regular rate, regular rhythm, S1 normal heart sound, S2 normal heart sound and no murmurs Peripheral Pulses: pulses 2+ throughout GI normal to inspection, nondistended, normoactive bowel sounds, soft to palpation,non-tender, non-distended and no masses Back/Spine no CVA tenderness and no thoracic nor lumbar tenderness Extremity normal to inspection General Extremety ED: Negative for edema General Extremity: Negative for edema Neuro oriented x3, CN's II-XII intact bilaterally, no sensory deficits noted and gait normal Sensorium / Orientation: awake, alert, oriented to person, oriented to place andoriented to time Motor Exam: strength 5/5 throughout and strength abnormal Psych mental status grossly normal Skin no rashes or lesions noted and no wounds MDM MDM MDM Narrative Medical decision making narrative: Patient presents with sudden dizziness and nausea. Initially she denied historyof vertigo but then her reminded her that she had had vertigo before andwas given pills for it. She had a CT scan of the brain without contrast that was unremarkable. She was given Antivert 25 mg p.o. as well as 4 mg of Zofran. She did feel improved but still feels a little unsteady. Patient noted to be atrest marginally hypoxic with O2 sat around 90% on room air. She was ambulated and she still was quite unsteady on her feet although she normally uses a walkerand her O2 sat with ambulation went to 86%. Chest x-ray was obtained which on my interpretation does not show any acute disease process. CBC with differential showed a white count was normal at 10.2 with a hemoglobin of 14.2. Chemistries unremarkable troponin was normal. INR was 1.5. Glucose was 297. Idid give patient 10 units of insulin subcu. Case will be discussed with hospitalist to evaluate patient for admission. Lab Data Attestation: I reviewed the patient's lab results. Labs: Laboratory Results - last 24 hr 07/18/22 07/18/22 07/18/22 10:55 12:09 12:09 WBC 10.2 RBC 4.65 Hgb 14.2 Hct 43.8 MCV 94.2 MCH 30.5 MCHC 32.4 RDW Std Deviation 48.0 H RDW Coeff of Laquita 14.0 Plt Count 239 MPV 11.5 Immature Gran % (Auto) 1.300 H Neut % (Auto) 64.1 Lymph % (Auto) 23.4 Lanier % (Auto) 7.8 Eos % (Auto) 2.6 Baso % (Auto) 0.8 Absolute Neuts (auto) 6.5 Absolute Lymphs (auto) 2.38 Nucleated RBC % 0 PT Cancelled INR Cancelled Sodium Potassium Chloride Carbon Dioxide Anion Gap BUN Creatinine Estim Creat Clear Calc Est GFR (MDRD) Af Amer Est GFR (MDRD) Non-Af BUN/Creatinine Ratio Glucose Calcium Troponin I High Sens Urine Color Urine Clarity Urine pH Ur Specific [place] Urine Protein Urine Glucose (UA) Urine Ketones Urine Occult Blood Urine Nitrite Urine Bilirubin Urine Urobilinogen Ur Leukocyte Esterase Urine RBC Urine WBC Ur Squamous Epith Cells Urine Bacteria Urine Mucus POC Glucose 346 H 07/18/22 07/18/22 07/18/22 12:09 12:48 13:08 WBC RBC Hgb Hct MCV MCH MCHC RDW Std Deviation RDW Coeff of Laquita Plt Count MPV Immature Gran % (Auto) Neut % (Auto) Lymph % (Auto) Lanier % (Auto) Eos % (Auto) Baso % (Auto) Absolute Neuts (auto) Absolute Lymphs (auto) Nucleated RBC % PT 18.2 H INR 1.5 Sodium 137 Potassium 3.8 Chloride 105 Carbon Dioxide 22.0 Anion Gap 10 BUN 27 H Creatinine 1.64 H Estim Creat Clear Calc 21.12 Est GFR (MDRD) Af Amer 38 L Est GFR (MDRD) Non-Af 32 L BUN/Creatinine Ratio 16.5 Glucose 297 H Calcium 9.4 Troponin I High Sens 13 Urine Color Urine Clarity Urine pH Ur Specific [place] Urine Protein Urine Glucose (UA) Urine Ketones Urine Occult Blood Urine Nitrite Urine Bilirubin Urine Urobilinogen Ur Leukocyte Esterase Urine RBC Urine WBC Ur Squamous Epith Cells Urine Bacteria Urine Mucus POC Glucose 242 H 07/18/22 13:27 WBC RBC Hgb Hct MCV MCH MCHC RDW Std Deviation RDW Coeff of Laquita Plt Count MPV Immature Gran % (Auto) Neut % (Auto) Lymph % (Auto) Lanier % (Auto) Eos % (Auto) Baso % (Auto) Absolute Neuts (auto) Absolute Lymphs (auto) Nucleated RBC % PT INR Sodium Potassium Chloride Carbon Dioxide Anion Gap BUN Creatinine Estim Creat Clear Calc Est GFR (MDRD) Af Amer Est GFR (MDRD) Non-Af BUN/Creatinine Ratio Glucose Calcium Troponin I High Sens Urine Color Yellow Urine Clarity Sl. Cloudy Urine pH 6.0 Ur Specific [place] 1.015 Urine Protein 30 H Urine Glucose (UA) 100 H Urine Ketones Negative Urine Occult Blood Negative Urine Nitrite Negative Urine Bilirubin Negative Urine Urobilinogen Normal Ur Leukocyte Esterase Negative Urine RBC 0 SEEN Urine WBC 0 SEEN Ur Squamous Epith Cells 0-5 SEEN Urine Bacteria 0 SEEN Urine Mucus 0 SEEN POC Glucose Radiography Diagnostic Testing: Clinical Impression(s) from Imaging Studies Brain CT 07/18/22 10:57 IMPRESSION: No acute intracranial process identified. Chronic involutional and white matter changes. Electronically Signed: Asha Lew MD at 12:14 EDT Reading Location ID and State: [facility] / [place] Tel , Service support , Discharge Plan Triage Chief Complaint: Hyperglycemia ED Provider: Afua Fernandez Dx/Rx/DC Orders Clinical Impression: Acute hyperglycemia, Hypoxia, Chronic anticoagulation, Dizziness, Exertional dyspnea Prescriptions: No Action gabapentin 300 mg capsule 300 mg PO BID aspirin [Adult Low Dose Aspirin] 81 mg tablet,delayed release (DR/EC) 81 mg PO DAILY cholecalciferol (vitamin D3) [Vitamin D3] 25 mcg (1,000 unit) capsule 25 mcg PO 2XW Rx Instructions: friday, , levothyroxine 50 mcg tablet 50 mcg PO DAILY atorvastatin 40 mg tablet 40 mg PO QHS duloxetine 30 mg capsule,delayed release(DR/EC) 30 mg PO DAILY Rx Instructions: 20mg metoprolol tartrate 50 mg tablet 50 mg PO BID isosorbide mononitrate 60 mg tablet extended release 24 hr 60 mg PO DAILY hydralazine 50 mg tablet 100 mg PO TID diphenhydramine-acetaminophen [Tylenol PM Extra Strength] 25-500 mg tablet 1 tab PO QHS insulin glargine [Lantus Solostar U-100 Insulin] 100 unit/mL (3 mL) insulin pen 35 unit subcut QPM Novolin N FlexPen 100 unit/mL (3 mL) insulin pen 7 unit subcut HS Qty: 3 5RF nifedipine [Procardia XL] 60 mg tablet extended release 24hr 60 mg PO DAILY Qty: 30 12RF oxybutynin chloride 10 MG tablet extended release 24hr 10 mg PO DAILY insulin lispro [Humalog KwikPen Insulin] 100 unit/mL insulin pen 35 unit subcut TID PRN PRN (Reason: SLIDING SCALE) oxycodone 5 mg tablet 5 - 10 mg PO Q4H PRN (Reason: pain) 5 Days Qty: 25 0RF nitroglycerin 0.4 mg tablet, sublingual 0.4 mg SUBLINGUAL Q5M PRN (Reason: chest pain) Qty: 25 3RF Rx Instructions: do not exceed 3 doses per episode warfarin 4 mg tablet 4 mg PO DAILY Qty: 30 11RF Protocol: Dose Management Condition: Friday Dose/Route: 4 mg Instruction: 1 x 4 mg tablet Condition: Friday Dose/Route: 6 mg Instruction: 1.5 x 4 mg tablets Condition: Friday Dose/Route: 4 mg Instruction: 1 x 4 mg tablet Condition: Friday Dose/Route: 6 mg Instruction: 1.5 x 4 mg tablets Condition: Dose/Route: 4 mg Instruction: 1 x 4 mg tablet Condition: Friday Dose/Route: 4 mg Instruction: 1 x 4 mg tablet Condition: Friday Dose/Route: 4 mg Instruction: 1 x 4 mg tablet Protocol Text: Adjustment Start Date: Friday07/17/22 INR Value: 1.6 INR Date: 07/17/22 Recheck Date: 07/24/22 furosemide 20 mg tablet 40 mg PO DAILY Qty: 270 3RF Rx Instructions: and may take 1 tab extra as needed (DME) Rollator w/extended arms See Rx Instructions .Route .MEDSUPPLY Qty: 1 0RF Rx Instructions: Use as directed for walking Primary Care Provider: Jose J Lezama Referrals: Jose J Lezama DO [Primary Care Provider] - Disposition Disposition: Acute Care Hospital [facility] What to do if you have Problems For any increased pain, shortness of breath, bleeding, nausea or vomiting, chestpain, or any unexpected problems, contact your Primary Care Provider. Call [facility] ([phone]) or report to the closest Emergency Room. Call 911 if necessary. 07/18/222212 <Electronically signed by Afua Fernandez DO> Cosigner Signature (if applicable): CC: Dr. Jose J Lezama DO ~ Signed [facility] Work Phone: [phone] History and physical note Author Dr. Horan [facility] July 18, 2022 4:22pm Note Date/Time July 18, 2022 3:46p [facility] Medical Records Department [address] [place] [id number] H&P Exam - Hospitalist 07/18/22 1446 MR#: [id number] Acct: [id number] Name: GLORIA PAUL Rep #:[id number] : 1935 86 From: Roshan Stahl PCP: Dr. Jose J Lezama, DO Status:ADM [facility] HPI - General General Date of Admission: 07/18/22 Date of Service: 07/18/22 Chief Complaint: Dizziness lightheadedness and vertigo today. Progressive shortness of breath for more than 6 months but less than 1 year. HPI Narrative GLORIA PAUL, is a 86 F came to ED mainly for dizziness lightheadedness nausea and vertigo that started today about 10 AM. Patient stated when she feels dizzy, usually she has hypoglycemia. Her glucose was read high and yesterday was in 200s. Patient stated usually she does not have vertigo. She also had history of probably 3 mini strokes, she does not remember well because it was long time ago last 1 more than 10 years ago. She does not have any residual deficit. She also complained of progressively worsening of shortness of breath which she has for more than 6 months. Usually it is dyspnea on exertion during usual house course or walking but not at rest. She denies any chest pain pressure or tightness. She denies history of COPD/emphysema or wheezing. No fever. No acute cough, sore throat or URI or pneumonia like symptoms. Patient has history of chronic HFpEF and atrial fibrillation and she follows , last cardiology visit May 2022. She has history of three-vessel CABG in March 2016. [facility]LY [facility], [facility] Medical History (HFpEF) heart failure with preserved ejection fraction Acute on chronic heart failure with preserved ejection fraction (HFpEF) Ambulates with cane Angina pectoris Arthritis Atherosclerotic heart disease of [place] coronary artery without angina pectoris Back pain Broken ribs CAD (coronary artery disease) CAD (coronary artery disease) Cardiology follow-up encounter Carotid stenosis, left Chronic renal failure, stage 3 (moderate) Congestive heart failure Coronary artery disease CPAP (continuous positive airway pressure) dependence Debility Diabetes Diabetes mellitus, type 2 Dietary restriction Difficulty swallowing Easy bruising Essential hypertension Fatigue Fibromyalgia GERD (gastroesophageal reflux disease) High cholesterol History of atrial fibrillation History of CHF (congestive heart failure) History of echocardiogram History of pain when walking History of renal disease History of stress test History of stroke Hypertension Hypothyroidism Insulin dependent diabetes mellitus 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 Lower GI bleeding Lumbosacral radiculopathy Microalbuminuria Migraine headache New onset atrial fibrillation Non-smoker Obstructive sleep apnea Osteoarthritis of left knee 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 PAF (paroxysmal atrial fibrillation) Post-menopausal Presence of stent in coronary artery (~12/11/18) Pure hypercholesterolemia Renal cancer Shortness of breath on exertion Stroke/cerebrovascular accident Thyroid disease Wears hearing aid Home Medications aspirin 81 mg tablet,delayed release (Adult Low Dose Aspirin) 81 mg PO DAILY heart health 01/01/19 [History Last Taken 07/18/22] gabapentin 300 mg capsule 300 mg PO BID nerve pain 01/01/19 [History Last Taken 07/18/22] oxybutynin chloride 10 mg tablet,extended release 24 hr 10 mg PO DAILY BLADDER 03/23/19 [History Last Taken 07/18/22] nitroglycerin 0.4 mg sublingual tablet 0.4 mg sublingual Q5M PRN chest pain #25 tabs 09/28/19 [Rx Last Taken Unknown] atorvastatin 40 mg tablet 40 mg PO QHS cholesterol 05/10/20 [History Last Taken 07/17/22] levothyroxine 50 mcg tablet 50 mcg PO DAILY thyroid 05/10/20 [History Last Taken 07/18/22] cholecalciferol (vitamin D3) 25 mcg (1,000 unit) capsule (Vitamin D3) 25 mcg PO QODAY vitamin 06/20/21 [History Last Taken 07/17/22] isosorbide mononitrate 60 mg tablet,extended release 24 hr 60 mg PO DAILY 02/14/22 [History Last Taken 07/18/22] duloxetine 30 mg capsule,delayed release 30 mg PO DAILY 02/28/22 [History Last Taken 07/18/22] metoprolol tartrate 50 mg tablet 50 mg PO BID blood pressure 02/28/22 [History Last Taken 07/18/22] diphenhydramine 25 mg-acetaminophen 500 mg tablet (Tylenol PM Extra Strength) 1 tab PO QHS 04/18/22 [History Last Taken Unknown] hydralazine 50 mg tablet 100 mg PO TID 04/18/22 [History Last Taken 07/18/22] insulin lispro 100 unit/mL subcutaneous pen (Humalog KwikPen (U-100) Insulin) 27unit subcut TID PRN PRN SLIDING SCALE 05/23/22 [History Last Taken 07/18/22] warfarin 4 mg tablet 4 mg PO DAILY #30 tabs 05/31/22 [Rx Last Taken 07/18/22] furosemide 20 mg tablet 40 mg PO DAILY #270 tabs 06/04/22 [Rx Last Taken 07/18/22] insulin glargine 100 unit/mL (3 mL) subcutaneous pen (Lantus Solostar U-100 Insulin) 27 unit subcut QPM 06/06/22 [History Last Taken 07/17/22] insulin NPH isoph U-100 human 100 unit/mL (3 mL) subcutaneous pen (Novolin N FlexPen) 7 unit (0.07 mL) subcut HS #3 mL 06/20/22 [Rx Last Taken 07/17/22] Allergy/AdvReac Type Severity Reaction Status Date / Time latex Allergy Rash Verified 07/18/22 10:44 adhesive tape AdvReac Rash Verified 07/18/22 10:44 ticagrelor [From Brilinta] AdvReac Shortness Verified 07/18/22 10:44 of breath Family History Father Heart disease Mother Breast cancer Diabetes Heart disease Surgical History H/O hemorrhoidectomy History of appendectomy History of arthroscopic knee surgery History of back surgery History of cardiac catheterization History of cholecystectomy History of coronary artery bypass graft x 3 (~04/08/16) History of hysterectomy History of knee replacement procedure of right knee History of right and left heart catheterization (LHC) (~08/10/19) History of right inguinal hernia repair Hx of CABG Hx of hand surgery Postlaminectomy syndrome of lumbar region Presence of coronary angioplasty implant and graft (~12/11/18) Social History Smoking Status: Never smoker alcohol intake: never substance use type: does not use caffeine: No ROS ROS Narrative Constitutional: Reports fatigue and weakness. No fever. HEENT: Reports systems reviewed and no addt'l complaints, except as documented Respiratory/Chest: No wheezing. No history of smoking. Denies any pulmonary disease rest as mentioned HPI CVS: No syncope. Rest as described in HPI Gastrointestinal: Denies coffee ground emesis, hematemesis or vomiting Genitourinary: Denies burning urination or new urinary tract symptoms Musculoskeletal: Denies acute joint pain or limited range of motion. No acute injury Neurologic: Vertigo. Probably 3 mini strokes/stroke in the past with noticeabledeficit. Denies seizure-like symptoms. skin: No ulcer. No rash Endocrinology: Reports systems reviewed and no addt'l complaints, except as documented Hematologic/Lymphatic: Reports systems reviewed and no addt'l complaints, exceptas documented Rest 14 ROS are negative except as mentioned in HPI Vital Signs Vital Signs Vital Signs: 07/18/22 10:43 07/18/22 12:31 07/18/22 12:42 Temperature 97.6 F L Temperature Source Temporal Pulse Rate 63 67 Pulse Rate [Lying] 65 Pulse Rate [Sitting (for 1 minute prior to obtaining)] 65 Pulse Rate [Standing (for 1 minute prior to obtaining)] 65 Respiratory Rate 14 16 Blood Pressure 136/64 H 158/74 H Blood Pressure [Lying] 155/66 H Blood Pressure [Sitting (for 1 minute prior to obtaining)] 180/82 H Blood Pressure [Standing (for 1 minute prior to obtaining)] 158/74 H Blood Pressure Mean 88 102 Blood Pressure Mean [Lying] 95 Blood Pressure Mean [Sitting (for 1 minute prior to obtaining)] 114 Blood Pressure Mean [Standing (for 1 minute prior to obtaining)] 102 Pulse Ox 94 91 Oxygen Delivery Method Room Air Room Air Oxygen Flow Rate (L/min) 07/18/22 14:06 07/18/22 14:32 07/18/22 14:33 Temperature 96.7 F L Temperature Source Temporal Pulse Rate 69 63 Pulse Rate [Lying] Pulse Rate [Sitting (for 1 minute prior to obtaining)] Pulse Rate [Standing (for 1 minute prior to obtaining)] Respiratory Rate 20 H 21 H Blood Pressure 183/78 H 163/48 H Blood Pressure [Lying] Blood Pressure [Sitting (for 1 minute prior to obtaining)] Blood Pressure [Standing (for 1 minute prior to obtaining)] Blood Pressure Mean 113 86 Blood Pressure Mean [Lying] Blood Pressure Mean [Sitting (for 1 minute prior to obtaining)] Blood Pressure Mean [Standing (for 1 minute prior to obtaining)] Pulse Ox 91 93 89 Oxygen Delivery Method Room Air Nasal Cannula Room Air Oxygen Flow Rate (L/min) 1 07/18/22 14:35 Temperature Temperature Source Pulse Rate Pulse Rate [Lying] Pulse Rate [Sitting (for 1 minute prior to obtaining)] Pulse Rate [Standing (for 1 minute prior to obtaining)] Respiratory Rate Blood Pressure Blood Pressure [Lying] Blood Pressure [Sitting (for 1 minute prior to obtaining)] Blood Pressure [Standing (for 1 minute prior to obtaining)] Blood Pressure Mean Blood Pressure Mean [Lying] Blood Pressure Mean [Sitting (for 1 minute prior to obtaining)] Blood Pressure Mean [Standing (for 1 minute prior to obtaining)] Pulse Ox 93 Oxygen Delivery Method Nasal Cannula Oxygen Flow Rate (L/min) 1 Weight Weight: 162 lb Body Mass Index (BMI) 28.7 Physical Exam Narrative General: Alert, Oriented x3, Cooperative HEENT: Atraumatic, PERRLA, EOMI, Normocephalic Oral: Oral mucosa moist. No Gingival or Mucosal Lesions/ Ulcerations Neck: Supple, No JVD, Negative Carotid Bruits Lungs: Air entry diminished in bilateral lung bases. Bilateral fine crepitations on inspiration Cardiovascular: Regular rate, Regular Rhythm, Normal S1, Normal S2, No murmurs Abdomen: Bowel Sounds Present, Soft, Non Tender, Non-Distended : No renal angle tenderness. No suprapubic tenderness. Extremities: No edema, Capillary Refill Less than 3 Seconds Skin: No rashes, No breakdown Musculoskeletal: Status post right TKR and medial meniscus surgery. RLE slightly weaker than LLE probably from knee steroid surgery, chronic. No acute tenderness to Palpation of Joints or Extremities Neurological: Cranial nerves II-XII grossly intact, DTR 2+/4 and Symmetrical, Neuro grossly intact. Denies a stroke scale 0. Psych/Mental Status: Normal Affect, Appropriate. Results Lab / Micro Data Result Diagrams: 07/18/22 12:09 07/18/22 12:09 Labs: Laboratory Results - last 24 hr 07/18/22 10:55: POC Glucose 346 H 07/18/22 12:09: WBC 10.2, RBC 4.65, Hgb 14.2, Hct 43.8, MCV 94.2, MCH 30.5, MCHC32.4, RDW Std Deviation 48.0 H, RDW Coeff of Laquita 14.0, Plt Count 239, MPV 11.5, Immature Gran % (Auto) 1.300 H, Neut % (Auto) 64.1, Lymph % (Auto) 23.4, Lanier % (Auto) 7.8, Eos % (Auto) 2.6, Baso % (Auto) 0.8, Absolute Neuts (auto) 6.5, Absolute Lymphs (auto) 2.38, Nucleated RBC % 0 07/18/22 12:09: PT Cancelled, INR Cancelled 07/18/22 12:09: Sodium 137, Potassium 3.8, Chloride 105, Carbon Dioxide 22.0, Anion Gap 10, BUN 27 H, Creatinine 1.64 H, Estim Creat Clear Calc 21.12, Est GFR(MDRD) Af Amer 38 L, Est GFR (MDRD) Non-Af 32 L, BUN/Creatinine Ratio 16.5, Glucose 297 H, Calcium 9.4, Troponin I High Sens 13 07/18/22 12:48: PT 18.2 H, INR 1.5 07/18/22 13:08: POC Glucose 242 H 07/18/22 13:27: Urine Color Yellow, Urine Clarity Sl. Cloudy, Urine pH 6.0, Ur Specific [place] 1.015, Urine Protein 30 H, Urine Glucose (UA) 100 H, Urine Ketones Negative, Urine Occult Blood Negative, Urine Nitrite Negative, Urine Bilirubin Negative, Urine Urobilinogen Normal, Ur Leukocyte Esterase Negative, Urine RBC 0 SEEN, Urine WBC 0 SEEN, Ur Squamous Epith Cells 0-5 SEEN, Urine Bacteria 0 SEEN, Urine Mucus 0 SEEN Radiology Impression Brain CT 07/18/22 10:57 IMPRESSION: No acute intracranial process identified. Chronic involutional and white matter changes. Electronically Signed: Asha Lew MD at 12:14 EDT Reading Location ID and State: [facility] / [place] Tel , Service support , Chest X-Ray 07/18/22 14:10 IMPRESSION: No acute findings in the chest. Electronically Signed: Jl Kimble MD at 14:29 EDT , Assessment & Plan Assessment/Plan (1) Vertigo: (2) Pulmonary HTN: PLAN: Plan This 86-year-old female is being admitted for work-up of acute onset of dizziness and vertigo and progressive worsening of shortness of breath. 1. Near syncope symptoms and vertigo, probably BPPV rule out posterior stroke: Patient is being admitted to PCU. She had orthostatic vitals in ED which was negative for hypotension or tachycardia. CT brain does not show acute intracranial abnormality. MRI brain ordered to rule out posterior stroke. If that is positive will need further work-up for stroke. PT and OT ordered. 2. Progressive worsening of shortness of breath and hypoxia probably related topulmonary hypertension, exact etiology unclear: Chest x-ray individually reviewed and shows mild peripheral upper lobe cephalization but no acute interstitial or pulmonary edema. Patient had right and left heart cath in July 2019 which shows right heart pressure borderline to mildly elevated with respectto PASP. No intracardiac shunt was found. Normal LVEDP. Lasix 40 mg IV daily as patient does not have leg swelling or acute shortness of breath. 2D echo is ordered. Patient had last PFT in June 2019 reported as no evidence of large airway obstructive ventilatory defect but isolated mild restrictive ventilatory impairment with preserved DLCO. Patient does not use oxygen at home and requires 1-2 L here. 3. Coronary artery status post triple-vessel CABG, stent, chronic HFpEF, paroxysmal A-fib on warfarin: Patient on metoprolol and baby aspirin, nitrate, atorvastatin and hydralazine at home. INR is subtherapeutic 1.5. Warfarin doseincreased to 5 mg daily. Monitor INR daily. Last echo in September 2021 reported EF 70% LA mildly enlarged mild MR RVSP 39 with stage II diastolic function consistent with chronic HFpEF. Troponin normal. 4. 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 Patient creatinine usually at 1.55-1.6 therefore on baseline. 5. Diabetes mellitus type 2 with hyperglycemia: Glucose in BMP 297. Patient onLantus and Humalog insulin. Dose titrated up. Accu-Cheks insulin coverage Humalog sliding scale. A1c tomorrow a.m. ordered. 6. Other chronic comorbidities include hypertension, chronic degenerative arthritis on right knee status post TKR, decreased mobility on walker: PT and OTordered Living will/advanced directive/end of life care: Patient does not have living will or advanced directive. Her daughter is next to kin. After discussion of benefits/risks procedures involved with full code, DNR CC arrest and DNR CC, the patient opted for full code. Patient does want artificial life support including intubation, tube feed, ventilator and/chest compression, central venous catheter, vasopressor and DC shock if needed Total time spent in [id number] encounter in discussion of advanced directive 17 minutes. Laboratory Results 07/18/22 10:55: POC Glucose 346 H 07/18/22 12:09: WBC 10.2, RBC 4.65, Hgb 14.2, Hct 43.8, MCV 94.2, MCH 30.5, MCHC32.4, RDW Std Deviation 48.0 H, RDW Coeff of Laquita 14.0, Plt Count 239, MPV 11.5, Immature Gran % (Auto) 1.300 H, Neut % (Auto) 64.1, Lymph % (Auto) 23.4, Lanier % (Auto) 7.8, Eos % (Auto) 2.6, Baso % (Auto) 0.8, Absolute Neuts (auto) 6.5, Absolute Lymphs (auto) 2.38, Nucleated RBC % 0 07/18/22 12:09: PT Cancelled, INR Cancelled 07/18/22 12:09: Sodium 137, Potassium 3.8, Chloride 105, Carbon Dioxide 22.0, Anion Gap 10, BUN 27 H, Creatinine 1.64 H, Estim Creat Clear Calc 21.12, Est GFR(MDRD) Af Amer 38 L, Est GFR (MDRD) Non-Af 32 L, BUN/Creatinine Ratio 16.5, Glucose 297 H, Calcium 9.4, Troponin I High Sens 13 07/18/22 12:09: B-Natriuretic Peptide 66.9 07/18/22 12:48: PT 18.2 H, INR 1.5 07/18/22 13:08: POC Glucose 242 H 07/18/22 13:27: Urine Color Yellow, Urine Clarity Sl. Cloudy, Urine pH 6.0, Ur Specific [place] 1.015, Urine Protein 30 H, Urine Glucose (UA) 100 H, Urine Ketones Negative, Urine Occult Blood Negative, Urine Nitrite Negative, Urine Bilirubin Negative, Urine Urobilinogen Normal, Ur Leukocyte Esterase Negative, Urine RBC 0 SEEN, Urine WBC 0 SEEN, Ur Squamous Epith Cells 0-5 SEEN, Urine Bacteria 0 SEEN, Urine Mucus 0 SEEN Clinical Impression(s) from Imaging Studies Brain CT 07/18/22 10:57 IMPRESSION: No acute intracranial process identified. Chronic involutional and white matter changes. Chest X-Ray 07/18/22 14:10 IMPRESSION: No acute findings in the chest. Charges/Coding Visit Charges Inpatient E&M: 98499 Init Hosp L3 Procedures Hospitalists Procedures: 40227 Advncd Care Plan 30 Min 07/18/22 1622 <Electronically signed by Roshan Horan MD> Cosigner Signature (if applicable): CC: Dr. Jose J Lezama DO; Dr. Roshan Horan MD~ Signed [facility] Work Phone: [phone]) [phone] Evaluation note* Diagnosis Onset Date Resolution Status Atherosclerotic heart diseas e of [place] coronary artery without angina pectoris chronic Essential hypertension chron ic History of coronary artery bypass graft x 3 March, chronic Presence of stent in coronary artery December, chronic Pure hypercholesterolemia ch ronic Shortness of breath chronic Chronic renal failure, stage 3 (moderate) chronic Diabetes mellitus, type 2 ch ronic Essential hypertension chron ic Microalbuminuria chronic Abdominal pain acute Lower GI bleeding acute Nausea acute Diabetes acute Diabetes acute Abnormal cardiac enzyme level acute Acute on chronic heart failu re with preserved ejection fraction (HFpEF) acute Broken ribs acute CAD (coronary artery disease) acute Carotid stenosis, left acute Congestive heart failure acu te Hypoxia acute Leg pain acute Leukocytosis acute Lower GI bleeding acute New onset atrial fibrillation acute PAF (paroxysmal atrial fibrillation) acute Chronic renal failure, stage 3 (moderate) chronic Essential hypertension chron ic History of coronary artery bypass graft x 3 March, chronic Hypothyroidism chronic Presence of stent in coronary artery December, chronic [facility]olemia [facility] Work Phone: [phone] 285-142102-01-2017 Evaluation note* Diagnosis Onset Date Resolution Status Acute medial meniscus tear of left knee acute Osteoarthritis of left knee acute History of coronary artery bypass graft x March, acute Presence of stent in coronary artery December, acute Atherosclerotic heart diseas e of [place] coronary artery without angina pectoris chronic Diabetes mellitus, type 2 ch ronic Overweight on examination ch ronic Acute medial meniscus tear of left knee acute Left knee DJD acute Hypokalemia acute Diabetes chronic Overweight on examination [facility] Work Phone: [phone]) [phone] Evaluation note* Diagnosis Onset Date Resolution Status History of coronary artery bypass graft x March, acute Presence of stent in coronary artery December, acute CAD (coronary artery disease) chronic Diabetes chronic Dyslipidemia chronic Essential hypertension chron ic PAF (paroxysmal atrial fibrillation) chronic Chronic renal failure, stage 3 (moderate) chronic Diabetes mellitus, type 2 ch ronic Essential hypertension chron ic Acute hyperglycemia resolved Dizziness resolved Exertional dyspnea resolved Hypoxia resolved CAD (coronary artery disease) chronic Dyslipidemia chronic Essential hypertension chron ic PAF (paroxysmal atrial fibrillation) chronic (HFpEF) heart failure with p reserved ejection fraction chronic Chronic renal failure, stage 3 (moderate) chronic Diabetes mellitus, type 2 zackaryic Microalbuminuria [facility] Work Phone: Consult note Author Isabel Valles [facility] Note Date/Time May 03, 2024 9:[address] [facility] Medical Records Department [address] [place] [address] Counseling Note - Pharmacy 05/03/24 0921 MR#: [id number] Acct: [id number] Name: GLORIA PAUL Karol Rep #:[id number] : 1935 88 From: Isabel Valles PCP: Dr. Jose J Lezama, DO Status:ADM FIDEL Y Location: [place] [address] Pharmacy MA Med Reconciliation Pharmacy Service has performed discharge medication reconciliation for this patient. The patient's discharge medication list was reviewed for discrepancies and discrepancies were resolved. Medications at Discharge Home Medications levothyroxine 50 mcg tablet 50 mcg PO DAILY thyroid 05/10/20 cholecalciferol (vitamin D3) 25 mcg (1,000 unit) capsule (Vitamin D3) 25 mcg PO DAILY vitamin 06/20/21 atorvastatin 40 mg tablet 40 mg PO QHS cholesterol #90 tabs 08/20/22 nitroglycerin 0.4 mg sublingual tablet 0.4 mg sublingual Q5M PRN chest pain #25 tabs 08/20/22 flash glucose scanning reader ([employer] Jong 2 [place]) #1 ea 11/08/22 ranolazine 500 mg tablet,extended release,12 hr 500 mg PO Q12H 12/05/22 aspirin 81 mg tablet,delayed release (Adult Aspirin Regimen) 81 mg PO DAILY 02/03/23 gabapentin 300 mg capsule 300 mg PO TID NEUROPATHY #90 caps 02/07/23 bisacodyl 10 mg rectal suppository 10 mg [place] DAILY PRN constipation 06/12/23 insulin lispro 100 unit/mL subcutaneous pen 18 unit subcut TID 06/12/23 lidocaine 4 % topical patch (Lidocaine Pain Relief) 1 patch topical DAILY pain 06/12/23 magnesium hydroxide 400 mg/5 mL oral suspension (Milk of Magnesia) 30 ml PO DAILY PRN constipation 06/12/23 meclizine 12.5 mg tablet 12.5 mg PO Q4H PRN dizziness 06/12/23 menthol 4 % topical gel (Biofreeze (menthol)) 1 applic topical DAILY PRN pain 06/12/23 mineral oil (Fleet Mineral Oil enema) 118 ml TX DAILY PRN constipation 06/12/23 insulin glargine 100 unit/mL (3 mL) subcutaneous pen (Lantus Solostar U-100 Insulin) 28 unit subcut QHS 07/17/23 loratadine 10 mg tablet 10 mg PO DAILY PRN allergy symptoms 09/15/23 memantine 5 mg tablet 10 mg PO BID DEMENTIA 09/15/23 Held on 05/03/24. Instructions: Resume on 05/12/24. duloxetine 60 mg capsule,delayed release 60 mg PO DAILY 12/30/23 albuterol sulfate 2.5 mg/3 mL (0.083 %) solution for nebulization 2.5 mg inhalation Q6H PRN bronchospasm 02/13/24 benzonatate 100 mg capsule 100 mg PO Q8H PRN cough 02/13/24 dextran 70-hypromellose 0.1 %-0.3 % eye drops 1 drp ophthalmic (eye) Q8H PRN dryeye(s) 02/13/24 isosorbide mononitrate 60 mg tablet,extended release 24 hr 60 mg PO BID HTN 03/11/24 semaglutide 0.25 mg or 0.5 mg (2 mg/3 mL) subcutaneous pen injector (Ozempic) 0.25 mg (0.368 mL) subcut QWEEK #3 mL 04/01/24 empagliflozin 25 mg tablet (Jardiance) 25 mg PO QAM DIABETES #30 tabs 04/15/24 acetaminophen 500 mg capsule 1,000 mg PO Q8 pain 05/02/24 furosemide 20 mg tablet (Lasix) 20 mg PO DAILY edema, SOB 05/02/24 gabapentin 100 mg capsule 100 mg PO QHS 05/02/24 guaifenesin 600 mg tablet, extended release 12 hr 600 mg PO Q12H PRN congestion 05/02/24 hydralazine 100 mg tablet 50 mg PO TID HTN 05/02/24 insulin lispro 100 unit/mL subcutaneous solution (Humalog U-100 Insulin) See Protocol subcut .COMPLEX 05/02/24 oxybutynin chloride 5 mg tablet,extended release 24 hr 5 mg PO DAILY BLADDER SPASMS 05/02/24 Held on 05/03/24. Instructions: Resume on 05/12/24. trazodone 50 mg tablet 125 mg PO .HS insomnia 05/02/24 05/03/24 0921 <Electronically signed by Isabel Valles> Date _ Isabel Valles Cosigner Signature (if applicable): Date CC: ~ Signed [facility] Work Phone: Discharge summary Author Bernardino Briceno [facility] December 07, 2022 2:38pm Note Date/Time December 07, 2022 2 :38pm [facility] Medical Records Department [facility] [place] [address] Discharge Summary 12/07/22 1434 MR#: [id number] Acct: [id number] Name: GLORIA PAUL Rep #:[id number] : 1935 87 From: Bernardino diez MD PCP: Dr. Jose J Lezama DO Status:ADM FIDEL Location: [place] [address] Providers Date of Admission: 12/05/22 Primary Care Physician: Dr. Jose J Lezama, DO Reason For Visit: SHA, DEHYDRATION, DEBILITY Diagnosis Discharge Diagnosis (1) Fall: Status: Acute Code(s): W19.XXXA - Unspecified fall, initial encounter Qualifiers: Encounter type: subsequent encounter Qualified Code(s): W19.XXXD - Unspecified fall, subsequent encounter (2) CKD (chronic kidney disease) stage 4, GFR 15-29 ml/min: Status: Chronic Code(s): N18.4 - Chronic kidney disease, stage 4 (severe) (3) Debility: Status: Acute Code(s): R53.81 - Other malaise (4) Hypercoagulable state due to atrial fibrillation: Status: Acute Code(s): D68.69 - Other thrombophilia; I48.91 - Unspecified atrial fibrillation Qualifiers: Atrial fibrillation type: paroxysmal Qualified Code(s): D68.69 - Other thrombophilia; I48.0 - Paroxysmal atrial fibrillation Plan 1. Debility with weakness and recent fall/SHA on CKD 4 ? Continue with IV fluids ? PT/OT for evaluation ? Consult case management for discharge planning ? We will monitor renal function it is improving 2. HTN/HLD/A-fib/CAD status post CABG and stent/chronic diastolic CHF ? Blood pressure currently stable, can resume her home blood pressure medications ? Continue with her home Lipitor ? We will hold her home Lasix given her SHA and placed on a little bit of fluids ? Continue with Coumadin monitor INRs 3. DM2 with neuropathy ? Accu-Cheks ACHS ? Continue with insulin ? We will monitor adjustments as necessary ? We will dose adjust gabapentin 4. Anxiety/depression ? Stable ? Continue with Cymbalta DVT: Coumadin Medications at Discharge Home Medications aspirin 81 mg tablet,delayed release (Adult Low Dose Aspirin) 81 mg PO DAILY heart health 01/01/19 oxybutynin chloride 10 mg tablet,extended release 24 hr 10 mg PO DAILY BLADDER 03/23/19 levothyroxine 50 mcg tablet 50 mcg PO DAILY thyroid 05/10/20 cholecalciferol (vitamin D3) 25 mcg (1,000 unit) capsule (Vitamin D3) 25 mcg PO QODAY vitamin 06/20/21 duloxetine 30 mg capsule,delayed release 30 mg PO DAILY 02/28/22 diphenhydramine 25 mg-acetaminophen 500 mg tablet (Tylenol PM Extra Strength) 1 tab PO QHS 04/18/22 insulin lispro 100 unit/mL subcutaneous pen (Humalog KwikPen (U-100) Insulin) 27unit subcut TID PRN PRN SLIDING SCALE 05/23/22 insulin glargine 100 unit/mL (3 mL) subcutaneous pen (Lantus Solostar U-100 Insulin) 27 unit subcut QPM 06/06/22 atorvastatin 40 mg tablet 40 mg PO QHS cholesterol #90 tabs 08/20/22 furosemide 40 mg tablet 40 mg PO .COMPLEX #180 tabs 08/20/22 hydralazine 100 mg tablet 100 mg PO TID #270 tabs 08/20/22 nitroglycerin 0.4 mg sublingual tablet 0.4 mg sublingual Q5M PRN chest pain #25 tabs 08/20/22 warfarin 4 mg tablet 4 mg PO .COMPLEX #180 tabs 08/20/22 gabapentin 300 mg capsule 600 mg PO TID nerve pain 11/01/22 isosorbide mononitrate 60 mg tablet,extended release 24 hr 60 mg PO BID #180 tabs 11/01/22 metoprolol tartrate 50 mg tablet 50 mg PO BID #180 tabs 11/04/22 flash glucose scanning reader (FreeStyle Jong 2 [place]) #1 ea 11/08/22 ranolazine 500 mg tablet,extended release,12 hr 500 mg PO Q12H 12/05/22 Hospital Course Operations None Procedures None Summary of Care Provided Minutes Spent on Discharge: 32 Hospital Course: Per HPI: GLORIA PAUL, is a 87 F with a significant history of hypertension; CAD and diabetes mellitus who presents to the emergency departmentwith weakness. Of note patient fell 2 days before presentation. With her fallshe hit her head real hard She came to the hospital and had 5 sutures placed. Patient lives with her . And per he is unable to help since patient is too weak. Patient is very weak. Earlier on the day of presentation patient slept reportedly all day. Plans were be made for patient to be admitted to [facility] but with her fall patient has been to with the family is looking to get her placed earlier. Of note patient has Dexcom for insulin monitoring but she is not able to manage. At the emergency department her blood glucose was found to be severely high. Patient admits to not drinking enough water. She denies any urinary symptoms. She complains of headache and pain in her legs. Hospital Course: 1. Progressive debility with weakness and recent fall/SHA on CKD 4?87-year-old female presented from home with progressive weakness and a recent fall. She wasfound to have a significant SHA which has improved significantly with IV fluids. PT and OT were consulted and recommended SNF placement. She did have a slightly abnormal UA however urine culture returned with no growth. Since she does not have a UTI and her renal function has improved I discussed with her theplan for possible discharge today she expressed understanding of the risk and benefits of going to the [facility] and would like to go and get started on rehab. 2. Hypertension, hyperlipidemia, A-fib, coronary artery disease status post CABG and stents, chronic diastolic CHF, type 2 diabetes with neuropathy, anxiety, depression are chronic medical conditions which complicate her care. Her home medications were continued where appropriate Physical Exam Narrative General: Alert, Oriented x3, Cooperative, No apparent distress HEENT: Atraumatic, PERRLA, EOMI, Normocephalic Oral: Moist Mucosa Neck: Supple, No JVD Lungs: Diminished, Normal air movement, No rhonchi, No wheeze, No rales Cardiovascular: Regular rate, Regular Rhythm, Normal S1, Normal S2, No murmurs Abdomen: Soft, Non Tender, Non-Distended, No Hepato-splenomegaly Extremities: No edema, Capillary Refill Less than 3 Seconds Skin: Facial laceration on the right forehead Musculoskeletal: No Tenderness to Palpation of Joints or Extremities Neurological: Moves all extremities, Sensory exam intact to light touch and pain Psych/Mental Status: Normal Affect, Appropriate Weight / BMI Weight Weight: 150 lb 2.157 oz Body Mass Index (BMI) 26.6 ABG / Lab / Microbiology Data 12/07/22 06:13 12/07/22 06:13 Laboratory: Laboratory Results - last 24 hr 12/06/22 16:35: POC Glucose 157 H 12/06/22 22:06: POC Glucose 231 H 12/07/22 06:13: WBC 8.3, RBC 3.37 L, Hgb 10.2 L, Hct 31.9 L, MCV 94.7, MCH 30.3,MCHC 32.0, RDW Std Deviation 47.4 H, RDW Coeff of Laquita 13.7, Plt Count 180, MPV 12.4 H, Immature Gran % (Auto) 0.600, Neut % (Auto) 57.2, Lymph % (Auto) 26.5, Lanier % (Auto) 11.0 H, Eos % (Auto) 3.9, Baso % (Auto) 0.8, Absolute Neuts (auto)4.7, Absolute Lymphs (auto) 2.20, Nucleated RBC % 0, PT 15.6 H, INR 1.2, Sodium 133 L, Potassium 3.3 L, Chloride 102, Carbon Dioxide 23.0, Anion Gap 8, BUN 43 H, Creatinine 1.73 H, Estim Creat Clear Calc 19.67, Est GFR (MDRD) Af Amer 36 L, Est GFR (MDRD) Non-Af 30 L, BUN/Creatinine Ratio 24.9 H, Glucose 249 H, Calcium 8.4 L 12/07/22 08:40: POC Glucose 224 H 12/07/22 12:32: POC Glucose 138 H Microbiology: Microbiology 12/05/22 19:15 Urine, Clean Catch Urine Culture - Final Culture exhibits no growth. Meaningful Use Info Meaningful Use Diagnoses (Choose all that apply): None applicable Discharge Plan Admission Admit Date/Time: 12/05/22 19:50 Attending Provider: Bernardino Briceno Primary Care Provider: Jose J Lezama Consulting Providers: Carlos Liu Discharge Orders/Prescriptions Prescriptions: Continued aspirin [Adult Low Dose Aspirin] 81 mg tablet,delayed release (DR/EC) 81 mg PO DAILY gabapentin 300 mg capsule 600 mg PO TID cholecalciferol (vitamin D3) [Vitamin D3] 25 mcg (1,000 unit) capsule 25 mcg PO QODAY levothyroxine 50 mcg tablet 50 mcg PO DAILY duloxetine 30 mg capsule,delayed release(DR/EC) 30 mg PO DAILY diphenhydramine-acetaminophen [Tylenol PM Extra Strength] 25-500 mg tablet 1 tab PO QHS insulin glargine [Lantus Solostar U-100 Insulin] 100 unit/mL (3 mL) insulin pen 27 unit subcut QPM isosorbide mononitrate 60 mg tablet extended release 24 hr 60 mg PO BID Qty: 180 3RF oxybutynin chloride 10 MG tablet extended release 24hr 10 mg PO DAILY insulin lispro [Humalog KwikPen Insulin] 100 unit/mL insulin pen 27 unit subcut TID PRN PRN (Reason: SLIDING SCALE) ranolazine 500 mg tablet extended release 12 hr 500 mg PO Q12H atorvastatin 40 mg tablet 40 mg PO QHS Qty: 90 3RF hydralazine 100 mg tablet 100 mg PO TID Qty: 270 3RF nitroglycerin 0.4 mg tablet, sublingual 0.4 mg SUBLINGUAL Q5M PRN (Reason: chest pain) Qty: 25 3RF Rx Instructions: do not exceed 3 doses per episode warfarin 4 mg tablet 4 mg PO .COMPLEX Qty: 180 3RF Protocol: Dose Management Condition: Friday Dose/Route: 6 mg Instruction: 1.5 x 4 mg tablets Condition: Friday Dose/Route: 4 mg Instruction: 1 x 4 mg tablet Condition: Friday Dose/Route: 4 mg Instruction: 1 x 4 mg tablet Condition: Friday Dose/Route: 4 mg Instruction: 1 x 4 mg tablet Condition: Dose/Route: 4 mg Instruction: 1 x 4 mg tablet Condition: Friday Dose/Route: 4 mg Instruction: 1 x 4 mg tablet Condition: Friday Dose/Route: 6 mg Instruction: 1.5 x 4 mg tablets Protocol Text: Adjustment Start Date: Friday08/20/22 INR Value: 2.5 INR Date: 08/05/22 Recheck Date: 08/26/22 Rx Instructions: 4 mg orally daily Friday through Friday ; and take 1and a half tablets (6mg) on Sat and Sun; or as directed; metoprolol tartrate 50 mg tablet 50 mg PO BID Qty: 180 3RF (DME) FreeStyle Jong 2 [place] Misc See Rx Instructions .Route Qty: 1 0RF Rx Instructions: As directed Held furosemide 40 mg tablet 40 mg PO .COMPLEX Qty: 180 3RF Hold Instructions: Resume on 12/10/22. Rx Instructions: 40 mg orally daily, may take 1 extra pill daily for weight gain, swelling, orshortness of breath; Referrals / Follow Up: Jose J Lezama DO [Primary Care Provider] - Disposition Disposition (needs filled in before D/C Order can be placed): Detention Facility Charges/Coding Visit Charges Inpatient E&M: 43253 Disch Hosp >30min 12/07/22 1438 <Electronically signed by Bernardino Briceno MD> Cosigner Signature (if applicable): CC: Dr. Jose J Lezama DO; Dr. Bernardino Briceno MD~ Signed [facility] Work Phone: Discharge summary Author Ziggy Moreau [facility] Note Date/Time May 02, 2024 12: 01pm [facility] Medical Records Department [address] [place] [address] Emergency Department Summary 05/02/24 MR#: [id number] Acct: [id number] Name: GLORIA PAUL Rep #:[id number] : 1935 88 From: Ziggy Moreau DO PCP: Dr. Jose J Lezama DO Status:REG ER Location: ED HPI History of Present Illness Chief Complaint: Fall Narrative Narrative: Patient is a 88-year-old female with past medical history of FRANKLIN, CHF, hypertension, pulmonary hypertension, migraine headache, atrial fibrillation paroxysmal, diabetes, GERD, carotid stenosis who presented to the emergency department the chief complaint of fall and head laceration. Patient states thatshe sat up this morning to get up and noted that she became dizzy. She states that she sat there for a while and noted that she felt better so therefore she attempted to get up and when she stood up she immediately fell forward hitting her face on the ground. Patient states that she is had problems with dizziness for a significant amount of time now this is not a new issue. Patient states that she believes she has not any blood thinner medications and does not know when her last tetanus shot was. 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 Wears hearing aid Post-menopausal Thyroid disease Insulin dependent diabetes mellitus Ambulates with cane Arthritis History of renal disease High cholesterol Easy bruising Back pain Migraine headache Difficulty swallowing Dietary restriction Shortness of breath on exertion History of pain when walking History of echocardiogram History of stress test Hypertension Cardiology follow-up encounter History of CHF (congestive heart failure) History of atrial fibrillation Osteoarthritis of left knee CAD (coronary artery disease) PAF (paroxysmal atrial fibrillation) Acute on chronic heart failure with preserved ejection fraction (HFpEF) New onset atrial fibrillation Congestive heart failure Broken ribs Lower GI bleeding Intertrigo Diabetes Non-smoker CPAP (continuous positive airway pressure) dependence Coronary artery disease Stroke/cerebrovascular accident (HFpEF) heart failure with preserved ejection fraction Microalbuminuria Pure hypercholesterolemia Essential hypertension Hypothyroidism GERD (gastroesophageal reflux disease) Fibromyalgia Atherosclerotic heart disease of [place] coronary artery without angina pectoris Presence of stent in coronary artery (~12/11/18) Carotid stenosis, left Debility Fatigue Angina pectoris Obstructive sleep apnea Lumbosacral radiculopathy CAD (coronary artery disease) Renal cancer History of stroke Diabetes mellitus, type 2 Home Medications ?Medication ?Instructions ?Recorded ?Last Taken ?Type levothyroxine 50 mcg tablet 50 mcg PO DAILY thyroid 05/02/24 History cholecalciferol (vitamin D3) 25 25 mcg PO DAILY vitami n 06/20/21 05/01/24 History mcg (1,000 unit) capsule (Vitamin D3) atorvastatin 40 mg tablet 40 mg PO QHS cholesterol #90 tabs 08/20/22 05/01/24 Rx nitroglycerin 0.4 mg sublingual 0.4 mg sublingual Q5M PRN chest 08/20/22 Unknown Rx tablet pain #25 tabs flash glucose scanning reader #1 ea 11/08/22 Unknown R x ([employer] Jong 2 [place]) ranolazine 500 mg tablet,extended 500 mg PO Q12H 12/0505/01/24 History release,12 hr aspirin 81 mg tablet,delayed 81 mg PO DAILY 02/03/23 0 02/19/23 History release (Adult Aspirin Regimen) gabapentin 300 mg capsule 300 mg PO TID NEUROPATHY #90 caps 02/07/23 05/02/24 Rx bisacodyl 10 mg rectal suppository 10 mg TX DAILY PRN constipation 06/12/23 Unknown History insulin lispro 100 unit/mL 18 unit subcut TID 06/12/23 05/01/24 History subcutaneous pen lidocaine 4 % topical patch 1 patch topical DAILY pain 06/12/23 05/01/24 History (Lidocaine Pain Relief) magnesium hydroxide 400 mg/5 mL 30 ml PO DAILY PRN con stipation 06/12/23 Unknown History oral suspension (Milk of Magnesia) meclizine 12.5 mg tablet 12.5 mg PO Q4H PRN dizziness 06/12/23 04/30/24 History menthol 4 % topical gel (Biofreeze 1 applic topical DA BRAIN PRN pain 06/12/23 Unknown History (menthol)) mineral oil (Fleet Mineral Oil 118 ml [place] DAILY PRN con stipation 06/12/23 Unknown History enema) insulin glargine 100 unit/mL (3 28 unit subcut QHS 08/0305/01/24 History mL) subcutaneous pen (Lantus Solostar U-100 Insulin) loratadine 10 mg tablet 10 mg PO DAILY PRN allergy s [place] 09/15/23 Unknown History memantine 5 mg tablet 10 mg PO BID DEMENTIA 05/01/24 History duloxetine 60 mg capsule,delayed 60 mg PO DAILY 05/01/24 History release acetaminophen 500 mg oral powder 1,000 mg PO TID PRN f ever or pain 02/13/24 05/01/24 History packet (Tylenol Extra Strength) albuterol sulfate 2.5 mg/3 mL 2.5 mg inhalation Q6H TX N 02/13/24 Unknown History (0.083 %) solution for nebulization bronchospasm benzonatate 100 mg capsule 100 mg PO Q8H PRN cough 05/04 Unknown History dextran 70-hypromellose 0.1 %-0.3 1 drp ophthalmic (ey e) Q8H PRN dry 02/13/24 Unknown History % eye drops eye(s) isosorbide mononitrate 60 mg 60 mg PO BID HTN 03/11/24 05/01/24 History tablet,extended release 24 hr semaglutide 0.25 mg or 0.5 mg (2 0.25 mg (0.368 mL) navarro bcut QWEEK #3 04/01/24 04/26/24 Rx mg/3 mL) subcutaneous pen injector mL (Ozempic) empagliflozin 25 mg tablet 25 mg PO QAM DIABETES #30 t abs 04/15/24 05/01/24 Rx (Jardiance) furosemide 20 mg tablet (Lasix) 20 mg PO DAILY edema, SOB 05/02/24 05/01/24 History gabapentin 100 mg capsule 100 mg PO QHS 05/02/2405/01 History guaifenesin 600 mg tablet, 600 mg PO Q12H PRN congesti on 05/02/24 Unknown History extended release 12 hr hydralazine 100 mg tablet 50 mg PO TID HTN 05/02/24 History insulin lispro 100 unit/mL See Protocol subcut .COMPLE X 05/02/24 05/01/24 History subcutaneous solution (Humalog U-100 Insulin) oxybutynin chloride 5 mg 5 mg PO DAILY BLADDER SPASMS 05/02/24 05/01/24 History tablet,extended release 24 hr tramadol 50 mg tablet 125 mg PO QHS INSOMNIA 05/0205/01/24 History Allergy/AdvReac Type Severity Reaction Status Date / Time morphine Allergy Intermediate Low blood Verified 04/01/24 15:04 pressure latex Allergy Rash Verified 04/01/24 15:04 adhesive tape AdvReac Rash Verified 04/01/24 15:04 ticagrelor (From Brilinta) AdvReac Shortness Verified 04/01/24 15:04 of breath Family History Father Heart disease Mother Breast cancer Diabetes Heart disease Surgical History History of coronary artery stent placement Hx of CABG History of coronary artery stent placement History of arthroscopic knee surgery History of cardiac catheterization Hx of hand surgery H/O hemorrhoidectomy History of appendectomy History of cholecystectomy Hx of CABG History of right and left heart catheterization (LHC) (~08/10/19) History of coronary artery bypass graft x 3 (~04/08/16) Presence of coronary angioplasty implant and graft (~12/11/18) History of back surgery History of right inguinal hernia repair History of knee replacement procedure of right knee History of hysterectomy Postlaminectomy syndrome of lumbar region Social History household members: spouse housing: house Smoking Status: Never smoker alcohol intake: never substance use type: does not use caffeine: No ROS ROS ED ROS Narrative Constitutional: Complains of laceration to head denies fevers, chills, headaches, lightness, dizziness Eyes: Denies change in vision double vision blurry vision Cardiovascular: Denies chest pain or palpitations Respiratory: Denies shortness of breath Abdomen: Denies abdominal pain nausea vomit diarrhea : Denies any urinary symptoms Neurological: Denies numbness, weakness, tingling Musculoskeletal: Denies back pain Skin: Complaint of head laceration EXAM Physical Exam Narrative Exam Narrative: General: Patient lying in bed rest comfortably did not appear to be in acute distress Head: Patient has a complex 6 cm x 3 cm laceration noted on her right forehead, normocephalic Eyes: PERRL bilaterally, EOMI bilateral, patient does have subconjunctival hemorrhage noted in her right eye Neck: Soft, supple, trach midline Cardiovascular: Regular rate and rhythm Respiratory: Clear to auscultation bilaterally Abdomen: Soft, nondistended, nontender to palpation Musculoskeletal: Patient had some pain with attempted range of motion of her right hip, tenderness to palpation of the left wrist all of the bony prominencesand joints taken to full range of motion no pain elicited Extremities: +4/5 strength noted in the bilateral lower extremities, no pedal edema on exam Neurological: Patient follow commands knew that she was at [facility] 2024 Skin: Warm, dry, intact no rashes or lesions noted CT head Const Vital Signs: 05/02/24 08:17 05/02/24 08:26 05/02/24 09:17 Temperature 98.3 F Temperature Source Oral Pulse Rate 73 74 Pulse Rate [Lying] Pulse Rate [Sitting (for 1 minute prior to obtaining)] Pulse Rate [Standing (for 1 minute prior to obtaining)] Respiratory Rate 20 H 18 Respiratory Effort Normal Respiratory Depth Normal Respiratory Pattern Normal Blood Pressure 190/75 H 187/79 H Blood Pressure [Lying] Blood Pressure [Sitting (for 1 minute prior to obtaining)] Blood Pressure [Standing (for 1 minute prior to obtaining)] Blood Pressure Mean 113 115 Blood Pressure Mean [Lying] Blood Pressure Mean [Sitting (for 1 minute prior to obtaining)] Blood Pressure Mean [Standing (for 1 minute prior to obtaining)] Pulse Ox 92 95 Oxygen Delivery Method Room Air Room Air 05/02/24 09:52 05/02/24 10:00 05/02/24 11:19 Temperature Temperature Source Pulse Rate 74 Pulse Rate [Lying] 74 Pulse Rate [Sitting (for 1 minute prior to obtaining)] 75 Pulse Rate [Standing (for 1 minute prior to obtaining)] 75 Respiratory Rate 18 Respiratory Effort Respiratory Depth Respiratory Pattern Blood Pressure 178/76 H 165/88 H Blood Pressure [Lying] 199/80 H Blood Pressure [Sitting (for 1 minute prior to obtaining)] 194/85 H Blood Pressure [Standing (for 1 minute prior to obtaining)] 178/76 H Blood Pressure Mean 110 113 Blood Pressure Mean [Lying] 119 Blood Pressure Mean [Sitting (for 1 minute prior to obtaining)] 121 Blood Pressure Mean [Standing (for 1 minute prior to obtaining)] 110 Pulse Ox 94 Oxygen Delivery Method Room Air MDM MDM MDM Narrative Medical decision making narrative: Patient is a 88-year-old female who presented to the emerged part with chief complaint of syncopal episode with a head laceration. On the differential diagnose includes but not limited to ACS, vasovagal syncope, head laceration, intracranial hemorrhage, cervical spine fracture. Once workup is obtained reviewed she will be reevaluated. Patient tetanus shot will be updated here today as she is unsure when her last tetanus shot was. Patient's CBC was reviewed and showed no evidence leukocytosis white blood countnormal at 9.6, hemoglobin 13.8, plate count of 195. Patient's PT was noted be 13.1 with an INR normal at 1. Patient sodium normal 130, potassium of 4.1, patient's anion gap is elevated to 16 CO2 low at 18.5, creatinine was noted be 1.61 she has underlying chronic kidney disease. Patient glucose was noted be 257. Patient will be given 10 units of subcutaneous insulin, AST and ALT were 16 and 9 respectively. Patient's beta-hydroxybutyrate normal at 0.3. Patient'surinalysis showed no evidence of ketones and thousand glucose and no evidence ofinfection. Patient's wrist x- ray reviewed by myself by radiology which showed no acute fracture or dislocation she does have osteopenia and other degenerativechanges noted. Patient's x-ray of her pelvis reviewed by myself and by radiology which showed no fracture or dislocation there are prominent degenerative changes noted. Patient chest x-ray reviewed by myself by radiologyand showed generalized osteopenia no pleural effusions or pneumothorax noted. Patient's CT head and brain without contrast showed a right frontal cephalhematoma no intracranial hemorrhage or large territorial infarct noted. Patient CT cervical spine reviewed showed no fracture subluxation or prevertebral soft tissue swelling. Patient's EKG was reviewed which showed sinus rhythm with a rate of 72 bpm with evidence of first-degree AV block with aQTc of 457. Patient had her head laceration repaired here in the emergency department and tolerated this well she will need her sutures out approximately 5 days. At thispoint in time given her syncopal episode her anion gap we will discuss case withhospitalist for admission. Patient's venous pH returned and showed a pH 7.31 with a bicarb of 23.9. Patient's orthostatic vital signs were positive she received IV fluid here in the emergency department Discussed case with hospitalist Dr. Briceno who accept patient for admission. Patient was notified is agreeable with this plan all questions and concerns answered. Lab Data Labs: Laboratory Results - last 24 hr 05/02/24 05/02/24 08:25 09:56 WBC 9.6 RBC 4.37 Hgb 13.8 Hct 42.6 MCV 97.5 MCH 31.6 MCHC 32.4 RDW Std Deviation 49.0 H RDW Coeff of Laquita 13.5 Plt Count 195 MPV 11.4 Immature Gran % (Auto) 0.400 Neut % (Auto) 69.6 Lymph % (Auto) 17.2 L [place] % (Auto) 7.5 Eos % (Auto) 4.6 Baso % (Auto) 0.7 Absolute Neuts (auto) 6.7 Absolute Lymphs (auto) 1.65 Nucleated RBC % 0 PT 13.1 INR 1.0 APTT 29.3 Sodium 138 Potassium 4.1 Chloride 104 Carbon Dioxide 18.5 L Anion Gap 16 H BUN 37 H Creatinine 1.61 H Estim Creat Clear Calc 24.69 L Est GFR (MDRD) Non-Af 31 L BUN/Creatinine Ratio 23.1 H Glucose 257 H Calcium 8.9 Total Bilirubin 0.28 Direct Bilirubin 0.13 AST 16 ALT 9 Alkaline Phosphatase 99 Total Protein 7.2 Albumin 4.0 Globulin 3.1 b-Hydroxybutyric mmol/L 0.3 Urine Color Yellow Urine Clarity Clear Urine pH 5.0 Ur Specific [place] 1.015 Urine Protein 30 H Urine Glucose (UA) 1000 H Urine Ketones Negative Urine Occult Blood 150 H Urine Nitrite Negative Urine Bilirubin Negative Urine Urobilinogen Normal Ur Leukocyte Esterase Negative Urine WBC 0-5 SEEN Ur Squamous Epith Cells 5-10 SEEN Urine Bacteria 0 SEEN Urine Mucus 0 SEEN ABG Data ABG results: ABG 05/02/24 11:38 Specimen Type JUAN ALBERTO Sample Site Not entered O2 % 21.0 VBG pH 7.32 VBG pO2 39 VBG HCO3 24 VBG Total CO2 25 VBG O2 Sat (Calc) 68 VBG Base Excess -2 L POC Mix VBG pCO2 Pt Tmp 46.5 O2 Delivery Device Not entered Radiography Diagnostic Testing: Clinical Impression(s) from Imaging Studies Brain CT 05/02/24 08:37 IMPRESSION: Right frontal cephalohematoma. No intracranial hemorrhage or large territorial infarct. Additional, chronic appearing, findings as described. Reading Location: [address] Cervical Spine CT 05/02/24 08:37 IMPRESSION: 1. No fracture, subluxation, or prevertebral soft tissue swelling is seen. 2. Stable to slightly progressed multilevel degenerative changes. Reading Location: [address] Chest X-Ray 05/02/24 08:55 IMPRESSION: Generalized osteopenia is seen. Prior sternotomy again noted. Thoracic neurostimulator again seen. Evaluation of the lungs is limited by hypoinflation, patient motion, and AP portable technique. Stable right hemidiaphragm elevation noted. No evidence of pulmonary edema. Mild areas of bibasilar atelectasis are seen. No pleural effusion or pneumothorax is noted. The cardiomediastinal silhouette is stable, without evidence of cardiomegaly. No fracture site is seen, although sensitivity is reduced by underlying osteopenia; If clinical concern persists, short-term follow-up imaging may be obtained to rule out a currently occult fracture. Reading Location: [address] Pelvis X-Ray 05/02/24 08:55 IMPRESSION: Multiple surgical clips are seen of the bilateral lower pelvis. Prominent arterial calcification is seen. Of the spine are noted. Partially visualized lower lumbar prior surgery is seen. Minimal left hip joint degenerative changes are seen, without associated joint narrowing. Mild sacroiliac joint degenerative changes are seen. No fracture or dislocation is seen on this solitary view. If clinical concern persists, short-term follow-up imaging may be obtained to rule out a currently occult fracture. Prominent degenerative changes Reading Location: [address] Wrist X-Ray 05/02/24 08:55 IMPRESSION: Generalized osteopenia is seen. Moderate to moderately severe degenerative changes are seen of the 1st carpal-metacarpal joint. Probable moderate degenerative changes of the partially visualized 1st interphalangeal joint, with mild degenerative changes of the 1st metacarpophalangeal joint. Mild degenerative changes seen at the 2nd carpal-metacarpal joint. Prominent soft tissue calcification, at least partially arterial, in the radial aspect of the visualized portion of the distal forearm. Moderate degenerative changes seen of the scaphoid trapezial trapezoidal joint, with partial joint narrowing. No significant degree of ulnar variance is noted. No acute fracture or dislocation is seen, although sensitivity is reduced by theunderlying degree of osteopenia; If clinical concern persists, short-term follow-up imaging may be obtained to rule out a currently occult fracture. Reading Location: [address] Discharge Plan Triage Chief Complaint: Fall ED Provider: Ziggy Moreau Dx/Rx/DC Orders Clinical Impression: Diabetes, Syncope, Laceration of head, Orthostatic hypotension Prescriptions: No Action cholecalciferol (vitamin D3) [Vitamin D3] 25 mcg (1,000 unit) capsule 25 mcg PO DAILY levothyroxine 50 mcg tablet 50 mcg PO DAILY lidocaine [Lidocaine Pain Relief] 4 % adhesive patch,medicated 1 patch topical DAILY meclizine 12.5 mg tablet 12.5 mg PO Q4H PRN (Reason: dizziness) insulin lispro 100 unit/mL insulin pen 18 unit SUBCUT TID Patient Comments: at meals mineral oil [Fleet Mineral Oil] Enema 118 ml TX DAILY PRN (Reason: constipation) Rx Instructions: discard any unused portion magnesium hydroxide [Milk of Magnesia] 400 mg/5 mL suspension 30 ml PO DAILY PRN (Reason: constipation) bisacodyl 10 mg suppository 10 mg TX DAILY PRN (Reason: constipation) Biofreeze (menthol) 4 % gel 1 applic topical DAILY PRN (Reason: pain) Patient Comments: APPLY TO RIGHT SHOULDER insulin glargine [Lantus Solostar U-100 Insulin] 100 unit/mL (3 mL) insulin pen 28 unit subcut QHS memantine 5 mg tablet 10 mg PO BID loratadine 10 mg tablet 10 mg PO DAILY PRN (Reason: allergy symptoms) Ozempic 0.25 mg or 0.5 mg (2 mg/3 mL) pen injector 0.25 mg subcut QWEEK Qty: 3 3RF Patient Comments: TAKE ON MONDAYS Jardiance 25 mg tablet 25 mg PO QAM Qty: 30 5RF duloxetine 60 mg capsule,delayed release(DR/EC) 60 mg PO DAILY benzonatate 100 mg capsule 100 mg PO Q8H PRN (Reason: cough) dextran 70-hypromellose 0.1-0.3 % drops 1 drp ophthalmic (eye) Q8H PRN (Reason: dry eye(s)) Tylenol Extra Strength 500 mg powder in packet 1,000 mg PO TID PRN (Reason: fever or pain) albuterol sulfate 2.5 mg /3 mL (0.083 %) solution for nebulization 2.5 mg inhalation Q6H PRN (Reason: bronchospasm) isosorbide mononitrate 60 mg tablet extended release 24 hr 60 mg PO BID aspirin [Adult Aspirin Regimen] 81 mg tablet,delayed release (DR/EC) 81 mg PO DAILY gabapentin 300 mg capsule 300 mg PO TID Qty: 90 0RF ranolazine 500 mg tablet extended release 12 hr 500 mg PO Q12H gabapentin 100 mg capsule 100 mg PO QHS oxybutynin chloride 5 mg tablet extended release 24hr 5 mg PO DAILY tramadol 50 mg tablet 125 mg PO QHS guaifenesin 600 mg tablet extended release 12hr 600 mg PO Q12H PRN (Reason: congestion) insulin lispro [Humalog U-100 Insulin] 100 unit/mL solution See Protocol subcut .COMPLEX Protocol: 6. Sliding Scale Insulin Custom Condition: mg/dl range Dose/Route: Number of Units Condition: 200-249 Dose/Route: 2 UNITS Condition: 250-299 Dose/Route: 3 UNITS Condition: 300-349 Dose/Route: 4 UNITS Condition: 350-400 Dose/Route: 6 UNITS Protocol Text: Custom Sliding Scale Rx Instructions: subcutaneously PER SLIDING SCALE; hydralazine 100 mg tablet 50 mg PO TID furosemide [Lasix] 20 mg tablet 20 mg PO DAILY atorvastatin 40 mg tablet 40 mg PO QHS Qty: 90 3RF nitroglycerin 0.4 mg tablet, sublingual 0.4 mg SUBLINGUAL Q5M PRN (Reason: chest pain) Qty: 25 3RF Rx Instructions: do not exceed 3 doses per episode (DME) FreeStyle Jong 2 [place] Misc See Rx Instructions .Route Qty: 1 0RF Rx Instructions: As directed Primary Care Provider: Jose J Lezama Referrals: Jose J Lezama DO [Primary Care Provider] - Print Language: Lao Disposition Disposition: Acute Care Hospital [facility] What to do if you have Problems For any increased pain, shortness of breath, bleeding, nausea or vomiting, chestpain, or any unexpected problems, contact your Primary Care Provider. Call [facility] ([phone]) or report to the closest Emergency Room. Call 911 if necessary. 05/02/24 1201 <Electronically signed by Ziggy Moreau DO> Cosigner Signature (if applicable): CC: Dr. Jose J Lezama DO ~ Signed [facility] Work Phone: Evaluation note* Diagnosis Onset Date Resolution Status Acute dyspnea resolved Acute respiratory failure with hypoxia resolved Hypoxia resolved Diabetes mellitus, type 2 ch ronic Essential hypertension chron ic Hypothyroidism chronic Microalbuminuria chronic Overweight on examination ch ronic Chronic renal failure, stage 3 (moderate) chronic Diabetes mellitus, type 2 ch ronic Chronic renal failure, stage 3 (moderate) chronic Diabetes mellitus, type 2 ch ronic Chronic renal failure, stage 3 (moderate) chronic Diabetes mellitus, type 2 ch ronic Shortness of breath chronic [facility] Work Phone: Evaluation note* Diagnosis Onset Date Resolution Status Diabetes mellitus, type 2 ch ronic Essential hypertension chron ic Hypothyroidism chronic Microalbuminuria chronic Overweight on examination ch ronic Chronic renal failure, stage 3 (moderate) chronic Diabetes mellitus, type 2 ch ronic Chronic renal failure, stage 3 (moderate) chronic Diabetes mellitus, type 2 ch ronic Chronic renal failure, stage 3 (moderate) chronic Diabetes mellitus, type 2 ch ronic Shortness of breath chronic [facility] Work Phone: Evaluation note* Diagnosis Onset Date Resolution Status Diabetes mellitus, type 2 ch ronic Essential hypertension chron ic Hypothyroidism chronic Microalbuminuria chronic Overweight on examination ch ronic Chronic renal failure, stage 3 (moderate) chronic Diabetes mellitus, type 2 ch ronic Chronic renal failure, stage 3 (moderate) chronic Diabetes mellitus, type 2 ch ronic Chronic renal failure, stage 3 (moderate) chronic Diabetes mellitus, type 2 ch ronic Shortness of breath chronic Atherosclerotic heart diseas e of [place] coronary artery without angina pectoris chronic Essential hypertension chron ic History of coronary artery bypass graft x March, chronic Presence of stent in coronary artery December, chronic Pure hypercholesterolemia ch ronic Shortness of breath chronic Chronic renal failure, stage 3 (moderate) chronic Diabetes mellitus, type 2 ch ronic Essential hypertension chron ic Microalbuminuria chronic Abdominal pain acute Lower GI bleeding acute Nausea acute [facility] Work Phone: Evaluation note* Diagnosis Onset Date Resolution Status Chronic renal failure, stage 3 (moderate) chronic Diabetes mellitus, type 2 ch ronic Chronic renal failure, stage 3 (moderate) chronic Diabetes mellitus, type 2 ch ronic Chronic renal failure, stage 3 (moderate) chronic Diabetes mellitus, type 2 ch ronic Shortness of breath chronic Atherosclerotic heart diseas e of [place] coronary artery without angina pectoris chronic Essential hypertension chron ic History of coronary artery bypass graft x 3 March, chronic Presence of stent in coronary artery December, chronic Pure hypercholesterolemia ch ronic Shortness of breath chronic Chronic renal failure, stage 3 (moderate) chronic Diabetes mellitus, type 2 ch ronic Essential hypertension chron ic Microalbuminuria chronic Abdominal pain acute Lower GI bleeding acute Nausea acute [facility] Work Phone: Evaluation note* Diagnosis Onset Date Resolution Status Chronic renal failure, stage 3 (moderate) chronic Diabetes mellitus, type 2 ch ronic Chronic renal failure, stage 3 (moderate) chronic Diabetes mellitus, type 2 ch ronic Chronic renal failure, stage 3 (moderate) chronic Diabetes mellitus, type 2 ch ronic Shortness of breath chronic Atherosclerotic heart diseas e of [place] coronary artery without angina pectoris chronic Essential hypertension chron ic History of coronary artery bypass graft x March, chronic Presence of stent in coronary artery December, chronic Pure hypercholesterolemia ch ronic Shortness of breath chronic Chronic renal failure, stage 3 (moderate) chronic Diabetes mellitus, type 2 ch ronic Essential hypertension chron ic Microalbuminuria chronic Abdominal pain acute Lower GI bleeding acute Nausea acute Diabetes acute [facility] Work Phone: Evaluation note* Diagnosis Onset Date Resolution Status Chronic renal failure, stage 3 (moderate) chronic Diabetes mellitus, type 2 ch ronic Chronic renal failure, stage 3 (moderate) chronic Diabetes mellitus, type 2 ch ronic Shortness of breath chronic Atherosclerotic heart diseas e of [place] coronary artery without angina pectoris chronic Essential hypertension chron ic History of coronary artery bypass graft x March, chronic Presence of stent in coronary artery December, chronic Pure hypercholesterolemia ch ronic Shortness of breath chronic Chronic renal failure, stage 3 (moderate) chronic Diabetes mellitus, type 2 ch ronic Essential hypertension chron ic Microalbuminuria chronic Abdominal pain acute Lower GI bleeding acute Nausea acute Diabetes acute [facility] Work Phone: Evaluation note* Diagnosis Onset Date Resolution Status Chronic renal failure, stage 3 (moderate) chronic Diabetes mellitus, type 2 ch ronic Chronic renal failure, stage 3 (moderate) chronic Diabetes mellitus, type 2 ch ronic Shortness of breath chronic Atherosclerotic heart diseas e of [place] coronary artery without angina pectoris chronic Essential hypertension chron ic History of coronary artery bypass graft x March, chronic Presence of stent in coronary artery December, chronic Pure hypercholesterolemia ch ronic Shortness of breath chronic Chronic renal failure, stage 3 (moderate) chronic Diabetes mellitus, type 2 ch ronic Essential hypertension chron ic Microalbuminuria chronic Abdominal pain acute Lower GI bleeding acute Nausea acute Diabetes acute Diabetes acute [facility] Work Phone: Evaluation note* Diagnosis Onset Date Resolution Status Chronic renal failure, stage 3 (moderate) chronic Diabetes mellitus, type 2 ch ronic Shortness of breath chronic Atherosclerotic heart diseas e of [place] coronary artery without angina pectoris chronic Essential hypertension chron ic History of coronary artery bypass graft x March, chronic Presence of stent in coronary artery December, chronic Pure hypercholesterolemia ch ronic Shortness of breath chronic Chronic renal failure, stage 3 (moderate) chronic Diabetes mellitus, type 2 ch ronic Essential hypertension chron ic Microalbuminuria chronic Abdominal pain acute Lower GI bleeding acute Nausea acute Diabetes acute Diabetes acute [facility] Work Phone: Evaluation note* Diagnosis Onset Date Resolution Status Chronic renal failure, stage 3 (moderate) chronic Diabetes mellitus, type 2 ch ronic Shortness of breath chronic Atherosclerotic heart diseas e of [place] coronary artery without angina pectoris chronic Essential hypertension chron ic History of coronary artery bypass graft x 3 March, chronic Presence of stent in coronary artery December, chronic Pure hypercholesterolemia ch ronic Shortness of breath chronic Chronic renal failure, stage 3 (moderate) chronic Diabetes mellitus, type 2 ch ronic Essential hypertension chron ic Microalbuminuria chronic Abdominal pain acute Lower GI bleeding acute Nausea acute Diabetes acute Diabetes acute Acute on chronic heart failu re with preserved ejection fraction (HFpEF) acute Congestive heart failure acu te Hypoxia acute New onset atrial fibrillation acute [facility] Work Phone: Evaluation note* Diagnosis Onset Date Resolution Status Diabetes acute Diabetes acute Acute on chronic heart failu re with preserved ejection fraction (HFpEF) acute Hypoxia acute Leg pain acute PAF (paroxysmal atrial fibrillation) acute Presence of stent in coronary artery December, acute Abnormal cardiac enzyme level resolved Broken ribs resolved Leukocytosis resolved (HFpEF) heart failure with p reserved ejection fraction acute PAF (paroxysmal atrial fibrillation) acute Presence of stent in coronary artery December, acute Atherosclerotic heart diseas e of [place] coronary artery without angina pectoris chronic Diabetes acute [facility] Work Phone: Evaluation note* Diagnosis Onset Date Resolution Status Acute on chronic heart failu re with preserved ejection fraction (HFpEF) acute Hypothyroidism acute Hypoxia acute Leg pain acute PAF (paroxysmal atrial fibrillation) acute Presence of stent in coronary artery December, acute Abnormal cardiac enzyme level resolved Broken ribs resolved Leukocytosis resolved (HFpEF) heart failure with p reserved ejection fraction acute PAF (paroxysmal atrial fibrillation) acute Presence of stent in coronary artery December, acute Atherosclerotic heart diseas e of [place] coronary artery without angina pectoris chronic Diabetes acute Osteoarthritis of left knee acute Acute medial meniscus tear n oneactive Pes anserinus bursitis of left knee noneactive Presence of stent in coronary artery December, acute Atherosclerotic heart diseas e of [place] coronary artery without angina pectoris chronic Diabetes acute Hypothyroidism acute Overweight on examination ch [facility] Work Phone: Evaluation note* Diagnosis Onset Date Resolution Status Acute medial meniscus tear of left knee acute Left knee DJD acute Hypokalemia acute Diabetes chronic Overweight on examination ch zackaryic History of coronary artery bypass graft x March, acute Presence of stent in coronary artery December, acute CAD (coronary artery disease) chronic Diabetes chronic Dyslipidemia chronic Essential hypertension chron ic PAF (paroxysmal atrial fibrillation) chronic Chronic renal failure, stage 3 (moderate) chronic Diabetes mellitus, type 2 ronic Essential hypertension chron ic [facility] Work Phone: Evaluation note* Diagnosis Onset Date Resolution Status Acute medial meniscus tear of left knee acute Left knee DJD acute Hypokalemia acute Diabetes [facility] of coronary artery bypass graft x March, acute Presence of stent in coronary artery December, acute CAD (coronary artery disease) chronic Diabetes chronic Dyslipidemia chronic Essential hypertension chron ic PAF (paroxysmal atrial fibrillation) chronic Chronic renal failure, stage 3 (moderate) chronic Diabetes mellitus, type 2 ronic Essential hypertension chron ic Acute hyperglycemia acute Chronic anticoagulation acut e Dizziness acute Exertional dyspnea acute Hypoxia acute [facility] Work Phone: Evaluation note* Diagnosis Onset Date Resolution Status Acute medial meniscus tear of left knee acute Left knee DJD acute Hypokalemia acute Diabetes chronic Overweight on examination lety History of coronary artery bypass graft x March, acute Presence of stent in coronary artery December, acute CAD (coronary artery disease) chronic Diabetes chronic Dyslipidemia chronic Essential hypertension chron ic PAF (paroxysmal atrial fibrillation) chronic Chronic renal failure, stage 3 (moderate) chronic Diabetes mellitus, type 2 ronic Essential hypertension chron ic Acute hyperglycemia acute Chronic anticoagulation acut e Dizziness acute Exertional dyspnea acute Hypoxia acute Pulmonary HTN acute Vertigo acute [facility] Work Phone: Evaluation note* Diagnosis Onset Date Resolution Status Acute medial meniscus tear of left knee acute Left knee DJD acute Hypokalemia acute Diabetes chronic Overweight on examination zackaryic History of coronary artery bypass graft x March, acute Presence of stent in coronary artery December, acute CAD (coronary artery disease) chronic Diabetes chronic Dyslipidemia chronic Essential hypertension chron ic PAF (paroxysmal atrial fibrillation) chronic Chronic renal failure, stage 3 (moderate) chronic Diabetes mellitus, type 2 ch ronic Essential hypertension chron ic Acute hyperglycemia resolved Dizziness resolved Exertional dyspnea resolved Hypoxia resolved [facility] Work Phone: Evaluation note* Diagnosis Onset Date Resolution Status Acute hyperglycemia resolved Dizziness resolved Exertional dyspnea resolved Hypoxia resolved CAD (coronary artery disease) chronic Dyslipidemia chronic Essential hypertension chron ic PAF (paroxysmal atrial fibrillation) chronic (HFpEF) heart failure with preserved ejection fraction chronic Chronic renal failure, stage 3 (moderate) chronic Diabetes mellitus, type 2 ch ronic Microalbuminuria chronic History of fall acute CAD (coronary artery disease) chronic Dyslipidemia chronic Essential hypertension chron ic PAF (paroxysmal atrial fibrillation) chronic Chest pain acute History of coronary artery disease acute Hypertension chronic [facility] Work Phone: Evaluation note* Diagnosis Onset Date Resolution Status CAD (coronary artery disease) chronic Dyslipidemia chronic Essential hypertension chron ic PAF (paroxysmal atrial fibrillation) chronic (HFpEF) heart failure with preserved ejection fraction chronic Chronic renal failure, stage 3 (moderate) chronic Diabetes mellitus, type 2 ch ronic Microalbuminuria chronic History of fall acute CAD (coronary artery disease) chronic Dyslipidemia chronic Essential hypertension chron ic PAF (paroxysmal atrial fibrillation) chronic CKD (chronic kidney disease) stage 4, GFR 15-29 ml/min chronic Diabetes mellitus, type 2 ch ronic Essential hypertension chron ic Microalbuminuria chronic [facility] Work Phone: Evaluation note* Diagnosis Onset Date Resolution Status CAD (coronary artery disease) chronic Dyslipidemia chronic Essential hypertension chron ic PAF (paroxysmal atrial fibrillation) chronic (HFpEF) heart failure with preserved ejection fraction chronic Chronic renal failure, stage 3 (moderate) chronic Diabetes mellitus, type 2 ch ronic Microalbuminuria chronic History of fall acute CAD (coronary artery disease) chronic Dyslipidemia chronic Essential hypertension chron ic PAF (paroxysmal atrial fibrillation) chronic CKD (chronic kidney disease) stage 4, GFR 15-29 ml/min chronic Diabetes mellitus, type 2 ch ronic Essential hypertension chron ic Microalbuminuria chronic Debility acute Fall acute Hypercoagulable state due to atrial fibrillation acute CKD (chronic kidney disease) stage 4, GFR 15-29 ml/min chronic [facility] Work Phone: Evaluation note* Diagnosis Onset Date Resolution Status CAD (coronary artery disease) chronic Dyslipidemia chronic Essential hypertension chron ic PAF (paroxysmal atrial fibrillation) chronic (HFpEF) heart failure with preserved ejection fraction chronic Chronic renal failure, stage 3 (moderate) chronic Diabetes mellitus, type 2 ch ronic Microalbuminuria chronic History of fall acute CAD (coronary artery disease) chronic Dyslipidemia chronic Essential hypertension chron ic PAF (paroxysmal atrial fibrillation) chronic CKD (chronic kidney disease) stage 4, GFR 15-29 ml/min chronic Diabetes mellitus, type 2 ch ronic Essential hypertension chron ic Microalbuminuria chronic SHA (acute kidney injury) ac lime Debility acute Dehydration acute Fall acute Headache acute Hypercoagulable state due to atrial fibrillation acute Hyperglycemia due to diabetes mellitus acute Subtherapeutic international normalized ratio (INR) acute CKD (chronic kidney disease) stage 4, GFR 15-29 ml/min chronic [facility] Work Phone: Evaluation note* Diagnosis Onset Date Resolution Status History of fall acute CAD (coronary artery disease) chronic Dyslipidemia chronic Essential hypertension chron ic PAF (paroxysmal atrial fibrillation) chronic Chronic renal failure, stage 3 (moderate) chronic CKD (chronic kidney disease) stage 4, GFR 15-29 ml/min chronic Diabetes mellitus, type 2 ch ronic Essential hypertension chron ic Microalbuminuria chronic Debility acute Dehydration acute Fall acute Headache acute Hypercoagulable state due to atrial fibrillation acute Hyperglycemia due to diabetes mellitus acute Subtherapeutic international normalized ratio (INR) acute CKD (chronic kidney disease) stage 4, GFR 15-29 ml/min chronic SHA (acute kidney injury) re solved [facility] Work Phone: Evaluation note* Diagnosis Onset Date Resolution Status History of fall acute CAD (coronary artery disease) chronic Dyslipidemia chronic Essential hypertension chron ic PAF (paroxysmal atrial fibrillation) chronic Chronic renal failure, stage 3 (moderate) chronic CKD (chronic kidney disease) stage 4, GFR 15-29 ml/min chronic Diabetes mellitus, type 2 ch ronic Essential hypertension chron ic Microalbuminuria chronic Debility acute Dehydration acute Fall acute Headache acute Hypercoagulable state due to atrial fibrillation acute Hyperglycemia due to diabetes mellitus acute Subtherapeutic international normalized ratio (INR) acute CKD (chronic kidney disease) stage 4, GFR 15-29 ml/min chronic SHA (acute kidney injury) re solved CAD (coronary artery disease) chronic Dyslipidemia chronic Essential hypertension chron ic PAF (paroxysmal atrial fibrillation) [facility] Work Phone: Evaluation note* Diagnosis Onset Date Resolution Status History of fall acute CAD (coronary artery disease) chronic Dyslipidemia chronic Essential hypertension chron ic PAF (paroxysmal atrial fibrillation) chronic Chronic renal failure, stage 3 (moderate) chronic CKD (chronic kidney disease) stage 4, GFR 15-29 ml/min chronic Diabetes mellitus, type 2 ch ronic Essential hypertension chron ic Microalbuminuria chronic Debility acute Dehydration acute Fall acute Headache acute Hypercoagulable state due to atrial fibrillation acute Hyperglycemia due to diabetes mellitus acute Subtherapeutic international normalized ratio (INR) acute CKD (chronic kidney disease) stage 4, GFR 15-29 ml/min chronic SHA (acute kidney injury) re solved CAD (coronary artery disease) chronic Dyslipidemia chronic Essential hypertension chron ic PAF (paroxysmal atrial fibrillation) chronic Diabetes mellitus, type 2 ch ronic Lumbosacral radiculopathy ch ronic Hyperkalemia resolved SHA (acute kidney injury) ac lime Chronic anticoagulation acut e Falls acute Frequent falls acute Head injury acute Toxic metabolic encephalopathy acute Vomiting acute Weakness acute CAD (coronary artery disease) chronic Diabetes mellitus, type 2 ch ronic [facility] Work Phone: Reason for referral (narrative)No reason for referral information [facility] Work [facility]: Summary Purpose Family History No Family History Records Found Relationship Condition Age at Onset Recorded Date/T merlyn father Cardiac disease Unknown mother Malignant neoplasm of breast Unknown Diabetes mellitus Unknown Cardiac disease Unknown Advance Directives No Advanced Directives Records Found Advance Directive Response Recorded Date/ Time Advance Directives No August 09 8:50am Living Will No February 03 1:39pm Power of Electrical Software Engineer Yes February 03, 2021 1:39pm Advance Directive Response Recorded Date/ Time Advance Directives No August 09 8:50am Living Will No June 16, 2021 5: 56pm Power of Electrical Software Engineer Yes June 16, 2021 5:56pm Advance Directive Response Recorded Date/ Time Name of Medical Power of Electrical Software Engineer attorney VANESSA June 16, 2021 5:56pm Advance Directives No June 18, 2021 1:40pm Living Will No July 02, 2021 1 2:07pm Power of Electrical Software Engineer No July 02, 2021 12:07pm Advance Directive Response Recorded Date/ Time Name of Medical Power of Electrical Software Engineer attorney VANESSA June 16, 2021 5:56pm Name of Medical Power of Electrical Software Engineer CLEATOUS SIMPSON TS August 01, 2021 8:50pm Advance Directives No June 18, 2021 1:40pm Living Will Yes August 01, 2021 8:50pm Power of Electrical Software Engineer Yes August 01 8:50pm Advance Directive Response Recorded Date/ Time Name of Medical Power of Electrical Software Engineer POA, personal injury attorney June 16, 2021 5:56pm Name of Medical Power of Electrical Software Engineer CLESTACEY SIMPSON TS August 01, 2021 8:50pm Advance Directives No June 18, 2021 1:40pm Living Will No September 21 6:02pm Power of Electrical Software Engineer No September 21 022 6:02pm Advance Directive Response Recorded Date/ Time Name of Medical Power of Electrical Software Engineer POOrtiz, personal injury attorney June 16, 2021 5:56pm Name of Medical Power of Electrical Software Engineer MARKUS SIMPSON TS August 01, 2021 8:50pm Name of Medical Power of Electrical Software Engineer Catrachous Paul September 21, 2021 11:08pm Advance Directives No June 18, 2021 1:40pm Living Will Yes September 21 11:08pm Power of Electrical Software Engineer Yes September 21 022 11:08pm Advance Directive Response Recorded Date/ Time Name of Medical Power of Electrical Software Engineer VANESSA, personal injury attorney June 16, 2021 5:56pm Name of Medical Power of Electrical Software Engineer MARKUS SIMPSON TS August 01, 2021 8:50pm Name of Medical Power of Electrical Software Engineer Catrachous Paul September 21, 2021 11:08pm Name of Medical Power of Electrical Software Engineer . October 01, 2021 5:56am Advance Directives No June 18, 2021 1:40pm Living Will Yes October 01 5:56am Power of Electrical Software Engineer Yes October 01 022 5:56am Advance Directive Response Recorded Date/ Time Name of Medical Power of Electrical Software Engineer MARKUS SIMPSON TS August 01, 2021 8:50pm Name of Medical Power of Electrical Software Engineer Catrachous Paul September 21, 2021 11:08pm Name of Medical Power of Electrical Software Engineer . October 01, 2021 5:56am Advance Directives No June 18, 2021 1:40pm Living Will Yes October 01 5:56am Power of Electrical Software Engineer Yes October 01 5:56am Advance Directive Response Recorded Date/ Time Name of Medical Power of Electrical Software Engineer Catrachous Paul September 21, 2021 10:08pm Name of Medical Power of Electrical Software Engineer . October 01, 2021 4:56am Advance Directives No June 18, 2021 12:40pm Living Will Yes October 01 4:56am Power of Electrical Software Engineer Yes October 01 4:56am Advance Directive Response Recorded Date/ Time Advance Directives No June 18, 2021 1:40pm Living Will Yes October 01 5:56am Power of Electrical Software Engineer Yes October 01 5:56am Advance Directive Response Recorded Date/ Time Name of Medical Power of Electrical Software Engineer SPOUSE May 23, 2022 9:48am Advance Directives No June 18, 2021 1:40pm Living Will No May 28, 2022 5:48pm Power of Electrical Software Engineer No May 28 5:48pm Advance Directive Response Recorded Date/ Time Name of Medical Power of Electrical Software Engineer SPOUSE May 23, 2022 9:48am Advance Directives No June 18, 2021 1:40pm Living Will No July 18, 2022 1 0:51am Power of Electrical Software Engineer No July 18, 2022 10:51am Advance Directive Response Recorded Date/ Time Name of Medical Power of Electrical Software Engineer SPOUSE May 23, 2022 9:48am Advance Directives No June 18, 2021 1:40pm Living Will Yes July 18, 2022 4 :45pm Power of Electrical Software Engineer No July 18, 2022 4:45pm Advance Directive Response Recorded Date/ Time Name of Medical Power of Electrical Software Engineer SPOUSE May 23, 2022 9:48am Advance Directives No June 18, 2021 1:40pm Living Will No September 02, 2022 11:25am Power of Electrical Software Engineer No September 02 11:25am Advance Directive Response Recorded Date/ Time Advance Directives No June 18, 2021 1:40pm Living Will No September 02, 2022 11:25am Power of Electrical Software Engineer No September 02 11:25am Advance Directive Response Recorded Date/ Time Advance Directives No June 18, 2021 1:40pm Living Will No November 20 6:27pm Power of Electrical Software Engineer No November 20, 2022 6:27pm Advance Directive Response Recorded Date/ Time Name of Medical Power of Electrical Software Engineer November 30, 2022 1:35pm Advance Directives No June 18, 2021 1:40pm Living Will No December 04 12:14am Power of Electrical Software Engineer No December 04, 2022 12:14am Advance Directive Response Recorded Date/ Time Name of Medical Power of Electrical Software Engineer November 30, 2022 1:35pm Advance Directives No June 18, 2021 1:40pm Living Will No December 05 4:17pm Power of Electrical Software Engineer No December 05, 2022 4:17pm Advance Directive Response Recorded Date/ Time Name of Medical Power of Electrical Software Engineer November 30, 2022 1:35pm Advance Directives No June 18, 2021 1:40pm Living Will No December 05 11:10pm Power of Electrical Software Engineer No December 05, 2022 11:10pm Advance Directive Response Recorded Date/ Time Name of Medical Power of Electrical Software Engineer November 30, 2022 12:35pm Advance Directives No June 18, 2021 12:40pm Living Will No December 05 10:10pm Power of Electrical Software Engineer No December 05, 2022 10:10pm Advance Directive Response Recorded Date/ Time Name of Medical Power of Electrical Software Engineer unknown at thi s time February 03, 2023 7:28pm Name of Medical Power of Electrical Software Engineer November 30, 2022 12:35pm Name of Medical Power of Electrical Software Engineer malachi doyel February 18, 2023 11:21pm Advance Directives No June 18, 2021 12:40pm Living Will Yes February 18 11:21pm Power of Electrical Software Engineer Yes February 18 11:21pm Advance Directive Response Recorded Date/ Time Living Will Yes September 02, 2023 12:28pm Do you have a Healthcare Power of Electrical Software Engineer? Yes September 02, 2023 12:28pm Living Will Yes May 02, 2024 8:25am Do you have a Healthcare Power of Electrical Software Engineer? Yes May 02, 2024 8:25am Name of Medical Power of Electrical Software Engineer spouse May 02, 2024 8:25am Advance Directives No June 17, 2023 3:45pm Advance Directive Response Recorded Date/ Time Living Will Yes September 02, 2023 12:28pm Do you have a Healthcare Power of Electrical Software Engineer? Yes September 02, 2023 12:28pm Living Will Yes May 02, 2024 1:39pm Do you have a Healthcare Power of Electrical Software Engineer? Yes May 02, 2024 1:39pm Name of Medical Power of Electrical Software Engineer spouse May 02, 2024 1:39pm Advance Directives No June 17, 2023 3:45pm Chief Complaint and Reason for Visit Chief Complaint CHF Congestive heart failure Congestive heart failure Congestive heart failure Congestive heart failure Congestive heart failure 4 M FU 2 W FU diabetes 1 M FU Reason for Visit Acute dyspnea Acute respiratory failure with hypoxia Hypoxia Diabetes mellitus, type 2 Essential hypertension Hypothyroidism Microalbuminuria Overweight on examination Chronic renal failure, stage 3 (moderate) Diabetes mellitus, type 2 Chronic renal failure, stage 3 (moderate) Diabetes mellitus, type 2 Chronic renal failure, stage 3 (moderate) Diabetes mellitus, type 2 Shortness of breath Chief Complaint 4 M FU 2 W FU diabetes 1 M FU GI BLEED Reason for Visit Diabetes mellitus, t ype 2 Essential hypertension Hypothyroidism Microalbuminuria Overweight on examination Chronic renal failure, stage 3 (moderate) Diabetes mellitus, type 2 Chronic renal failure, stage 3 (moderate) Diabetes mellitus, type 2 Chronic renal failure, stage 3 (moderate) Diabetes mellitus, type 2 Shortness of breath Chief Complaint 4 M FU 2 W FU diabetes 1 M FU GI BLEED sob,filling up w fluid 1 M FU ER FU RECTAL BLEEDING LEFT ARM INJURY Reason for Visit Diabetes mellitus, t ype 2 Essential hypertension Hypothyroidism Microalbuminuria Overweight on examination Chronic renal failure, stage 3 (moderate) Diabetes mellitus, type 2 Chronic renal failure, stage 3 (moderate) Diabetes mellitus, type 2 Chronic renal failure, stage 3 (moderate) Diabetes mellitus, type 2 Shortness of breath Atherosclerotic heart disease of [place] coronary artery without angina pectoris Essential hypertension History of coronary artery bypass graft x 3 Presence of stent in coronary artery Pure hypercholesterolemia Shortness of breath Chronic renal failure, stage 3 (moderate) Diabetes mellitus, type 2 Essential hypertension Microalbuminuria Abdominal pain Lower GI bleeding Nausea Chief Complaint 2 W FU diabetes 1 M FU GI BLEED sob,filling up w fluid 1 M FU ER FU RECTAL BLEEDING LEFT ARM INJURY E ORDERS SOB CAD SOB CAD Reason for Visit Chronic renal failur e, stage 3 (moderate) Diabetes mellitus, type 2 Chronic renal failure, stage 3 (moderate) Diabetes mellitus, type 2 Chronic renal failure, stage 3 (moderate) Diabetes mellitus, type 2 Shortness of breath Atherosclerotic heart disease of [place] coronary artery without angina pectoris Essential hypertension History of coronary artery bypass graft x 3 Presence of stent in coronary artery Pure hypercholesterolemia Shortness of breath Chronic renal failure, stage 3 (moderate) Diabetes mellitus, type 2 Essential hypertension Microalbuminuria Abdominal pain Lower GI bleeding Nausea Chief Complaint 2 W FU diabetes 1 M FU GI BLEED sob,filling up w fluid 1 M FU ER FU RECTAL BLEEDING LEFT ARM INJURY E ORDERS SOB CAD SOB CAD 2 W FU Reason for Visit Chronic renal failur e, stage 3 (moderate) Diabetes mellitus, type 2 Chronic renal failure, stage 3 (moderate) Diabetes mellitus, type 2 Chronic renal failure, stage 3 (moderate) Diabetes mellitus, type 2 Shortness of breath Atherosclerotic heart disease of [place] coronary artery without angina pectoris Essential hypertension History of coronary artery bypass graft x 3 Presence of stent in coronary artery Pure hypercholesterolemia Shortness of breath Chronic renal failure, stage 3 (moderate) Diabetes mellitus, type 2 Essential hypertension Microalbuminuria Abdominal pain Lower GI bleeding Nausea Diabetes Chief Complaint diabetes 1 M FU GI BLEED sob,filling up w fluid 1 M FU ER FU RECTAL BLEEDING LEFT ARM INJURY E ORDERS SOB CAD SOB CAD 2 W FU Reason for Visit Chronic renal failur e, stage 3 (moderate) Diabetes mellitus, type 2 Chronic renal failure, stage 3 (moderate) Diabetes mellitus, type 2 Shortness of breath Atherosclerotic heart disease of [place] coronary artery without angina pectoris Essential hypertension History of coronary artery bypass graft x 3 Presence of stent in coronary artery Pure hypercholesterolemia Shortness of breath Chronic renal failure, stage 3 (moderate) Diabetes mellitus, type 2 Essential hypertension Microalbuminuria Abdominal pain Lower GI bleeding Nausea Diabetes Chief Complaint diabetes 1 M FU GI BLEED sob,filling up w fluid 1 M FU ER FU RECTAL BLEEDING LEFT ARM INJURY E ORDERS SOB CAD SOB CAD 2 W FU FALL Reason for Visit Chronic renal failur e, stage 3 (moderate) Diabetes mellitus, type 2 Chronic renal failure, stage 3 (moderate) Diabetes mellitus, type 2 Shortness of breath Atherosclerotic heart disease of [place] coronary artery without angina pectoris Essential hypertension History of coronary artery bypass graft x 3 Presence of stent in coronary artery Pure hypercholesterolemia Shortness of breath Chronic renal failure, stage 3 (moderate) Diabetes mellitus, type 2 Essential hypertension Microalbuminuria Abdominal pain Lower GI bleeding Nausea Diabetes Chief Complaint diabetes 1 M FU GI BLEED sob,filling up w fluid 1 M FU ER FU RECTAL BLEEDING LEFT ARM INJURY E ORDERS SOB CAD SOB CAD 2 W FU FALL 1 M FU Reason for Visit Chronic renal failur e, stage 3 (moderate) Diabetes mellitus, type 2 Chronic renal failure, stage 3 (moderate) Diabetes mellitus, type 2 Shortness of breath Atherosclerotic heart disease of [place] coronary artery without angina pectoris Essential hypertension History of coronary artery bypass graft x 3 Presence of stent in coronary artery Pure hypercholesterolemia Shortness of breath Chronic renal failure, stage 3 (moderate) Diabetes mellitus, type 2 Essential hypertension Microalbuminuria Abdominal pain Lower GI bleeding Nausea Diabetes Diabetes Chief Complaint 1 M FU GI BLEED sob,filling up w fluid 1 M FU ER FU RECTAL BLEEDING LEFT ARM INJURY E ORDERS SOB CAD SOB CAD 2 W FU FALL 1 M FU PAIN IN LEFT LOWER LEG, RULE OUT DVT Reason for Visit Chronic renal failur e, stage 3 (moderate) Diabetes mellitus, type 2 Shortness of breath Atherosclerotic heart disease of [place] coronary artery without angina pectoris Essential hypertension History of coronary artery bypass graft x 3 Presence of stent in coronary artery Pure hypercholesterolemia Shortness of breath Chronic renal failure, stage 3 (moderate) Diabetes mellitus, type 2 Essential hypertension Microalbuminuria Abdominal pain Lower GI bleeding Nausea Diabetes Diabetes Chief Complaint 1 M FU GI BLEED sob,filling up w fluid 1 M FU ER FU RECTAL BLEEDING LEFT ARM INJURY E ORDERS SOB CAD SOB CAD 2 W FU FALL 1 M FU PAIN IN LEFT LOWER LEG, RULE OUT DVT CHF EXA, AFIB RVR Reason for Visit Chronic renal failur e, stage 3 (moderate) Diabetes mellitus, type 2 Shortness of breath Atherosclerotic heart disease of [place] coronary artery without angina pectoris Essential hypertension History of coronary artery bypass graft x 3 Presence of stent in coronary artery Pure hypercholesterolemia Shortness of breath Chronic renal failure, stage 3 (moderate) Diabetes mellitus, type 2 Essential hypertension Microalbuminuria Abdominal pain Lower GI bleeding Nausea Diabetes Diabetes Acute on chronic heart failure with preserved ejection fraction (HFpEF) Congestive heart failure Hypoxia New onset atrial fibrillation Chief Complaint GI BLEED sob,filling up w fluid 1 M FU ER FU RECTAL BLEEDING LEFT ARM INJURY E ORDERS SOB CAD SOB CAD 2 W FU FALL 1 M FU PAIN IN LEFT LOWER LEG, RULE OUT DVT CHF EXA, AFIB RVR CHF EXA, AFIB RVR CHF EXA, AFIB RVR CHF EXA, AFIB RVR CHF EXA, AFIB RVR CHF EXA, AFIB RVR CHF EXA, AFIB RVR CHF EXA, AFIB RVR CHF EXA, AFIB RVR CHF EXA, AFIB RVR CHF EXA, AFIB RVR CHF EXA, AFIB RVR CHF EXA, AFIB RVR CHF EXA, AFIB RVR CHF EXA, AFIB RVR Reason for Visit Atherosclerotic hear t disease of [place] coronary artery without angina pectoris Essential hypertension History of coronary artery bypass graft x 3 Presence of stent in coronary artery Pure hypercholesterolemia Shortness of breath Chronic renal failure, stage 3 (moderate) Diabetes mellitus, type 2 Essential hypertension Microalbuminuria Abdominal pain Lower GI bleeding Nausea Diabetes Diabetes Abnormal cardiac enzyme level Acute on chronic heart failure with preserved ejection fraction (HFpEF) Broken ribs CAD (coronary artery disease) Carotid stenosis, left Congestive heart failure Hypoxia Leg pain Leukocytosis Lower GI bleeding New onset atrial fibrillation PAF (paroxysmal atrial fibrillation) Chronic renal failure, stage 3 (moderate) Essential hypertension History of coronary artery bypass graft x 3 Hypothyroidism Presence of stent in coronary artery Pure hypercholesterolemia Chief Complaint GI BLEED sob,filling up w fluid 1 M FU ER FU RECTAL BLEEDING LEFT ARM INJURY E ORDERS SOB CAD SOB CAD 2 W FU FALL 1 M FU PAIN IN LEFT LOWER LEG, RULE OUT DVT CHF EXA, AFIB RVR CHF EXA, AFIB RVR CHF EXA, AFIB RVR CHF EXA, AFIB RVR CHF EXA, AFIB RVR CHF EXA, AFIB RVR CHF EXA, AFIB RVR CHF EXA, AFIB RVR CHF EXA, AFIB RVR CHF EXA, AFIB RVR CHF EXA, AFIB RVR CHF EXA, AFIB RVR CHF EXA, AFIB RVR CHF EXA, AFIB RVR CHF EXA, AFIB RVR BLEEDING IN MOUTH Reason for Visit Atherosclerotic hear t disease [place] coronary artery without angina pectoris Essential hypertension History of coronary artery bypass graft x 3 Presence of stent in coronary artery Pure hypercholesterolemia Shortness of breath Chronic renal failure, stage 3 (moderate) Diabetes mellitus, type 2 Essential hypertension Microalbuminuria Abdominal pain Lower GI bleeding Nausea Diabetes Diabetes Abnormal cardiac enzyme level Acute on chronic heart failure with preserved ejection fraction (HFpEF) Broken ribs CAD (coronary artery disease) Carotid stenosis, left Congestive heart failure Hypoxia Leg pain Leukocytosis Lower GI bleeding New onset atrial fibrillation PAF (paroxysmal atrial fibrillation) Chronic renal failure, stage 3 (moderate) Essential hypertension History of coronary artery bypass graft x 3 Hypothyroidism Presence of stent in coronary artery Pure hypercholesterolemia Chief Complaint LEFT ARM INJURY E ORDERS SOB CAD SOB CAD 2 W FU FALL 1 M FU PAIN IN LEFT LOWER LEG, RULE OUT DVT CHF EXA, AFIB RVR CHF EXA, AFIB RVR CHF EXA, AFIB RVR CHF EXA, AFIB RVR CHF EXA, AFIB RVR CHF EXA, AFIB RVR CHF EXA, AFIB RVR CHF EXA, AFIB RVR CHF EXA, AFIB RVR CHF EXA, AFIB RVR CHF EXA, AFIB RVR CHF EXA, AFIB RVR CHF EXA, AFIB RVR CHF EXA, AFIB RVR CHF EXA, AFIB RVR BLEEDING IN MOUTH 2 WK S/P WCH 2 M FU PAIN LEFT KNEE Reason for Visit Diabetes Diabetes Acute on chronic heart failure with preserved ejection fraction (HFpEF) Hypoxia Leg pain PAF (paroxysmal atrial fibrillation) Presence of stent in coronary artery Abnormal cardiac enzyme level Broken ribs Leukocytosis (HFpEF) heart failure with preserved ejection fraction PAF (paroxysmal atrial fibrillation) Presence of stent in coronary artery Atherosclerotic heart disease of [place] coronary artery without angina pectoris Diabetes Chief Complaint CHF EXA, AFIB RVR CHF EXA, AFIB RVR CHF EXA, AFIB RVR CHF EXA, AFIB RVR CHF EXA, AFIB RVR CHF EXA, AFIB RVR CHF EXA, AFIB RVR CHF EXA, AFIB RVR CHF EXA, AFIB RVR CHF EXA, AFIB RVR CHF EXA, AFIB RVR CHF EXA, AFIB RVR CHF EXA, AFIB RVR CHF EXA, AFIB RVR CHF EXA, AFIB RVR BLEEDING IN MOUTH 2 WK S/P WCH 2 M FU PAIN LEFT KNEE LEFT KNEE 1 Y FU 2 M FU DUE ON OR AROUND 01/14/22 PER ORDER Reason for Visit Acute on chronic hea rt failure with preserved ejection fraction (HFpEF) Hypothyroidism Hypoxia Leg pain PAF (paroxysmal atrial fibrillation) Presence of stent in coronary artery Abnormal cardiac enzyme level Broken ribs Leukocytosis (HFpEF) heart failure with preserved ejection fraction PAF (paroxysmal atrial fibrillation) Presence of stent in coronary artery Atherosclerotic heart disease of [place] coronary artery without angina pectoris Diabetes Osteoarthritis of left knee Acute medial meniscus tear Pes anserinus bursitis of left knee Presence of stent in coronary artery Atherosclerotic heart disease of [place] coronary artery without angina pectoris Diabetes Hypothyroidism Overweight on examination Chief Complaint DUE ON OR AROUND 07/01 PER ORDER LEFT KNEE 3 M FU 3 M FU LEFT KNEE 1 M FU E ORDER Reason for Visit Acute medial meniscu s tear of left knee Osteoarthritis of left knee History of coronary artery bypass graft x 3 Presence of stent in coronary artery Atherosclerotic heart disease of [place] coronary artery without angina pectoris Diabetes mellitus, type 2 Overweight on examination Acute medial meniscus tear of left knee Left knee DJD Hypokalemia Diabetes Overweight on examination Chief Complaint LEFT KNEE 1 M FU E ORDER L KNEE ARTHROSCOPY PARTIAL MEDIAL MENISCECTOMY L KNEE ARTHROSCOPY PARTIAL MEDIAL MENISCECTOMY HYPOGYLEMIA Amb Documentation 6 MO F/U (PFM PT) 2 M FU EORDER Reason for Visit Acute medial meniscu s tear of left knee Left knee DJD Hypokalemia Diabetes Overweight on examination History of coronary artery bypass graft x 3 Presence of stent in coronary artery CAD (coronary artery disease) Diabetes Dyslipidemia Essential hypertension PAF (paroxysmal atrial fibrillation) Chronic renal failure, stage 3 (moderate) Diabetes mellitus, type 2 Essential hypertension Chief Complaint LEFT KNEE 1 M FU E ORDER L KNEE ARTHROSCOPY PARTIAL MEDIAL MENISCECTOMY L KNEE ARTHROSCOPY PARTIAL MEDIAL MENISCECTOMY HYPOGYLEMIA Amb Documentation 6 MO F/U (PFM PT) 2 M FU EORDER HF EXACERBATION, HYPOXIA, DIZZINESS Reason for Visit Acute medial meniscu s tear of left knee Left knee DJD Hypokalemia Diabetes Overweight on examination History of coronary artery bypass graft x 3 Presence of stent in coronary artery CAD (coronary artery disease) Diabetes Dyslipidemia Essential hypertension PAF (paroxysmal atrial fibrillation) Chronic renal failure, stage 3 (moderate) Diabetes mellitus, type 2 Essential hypertension Acute hyperglycemia Chronic anticoagulation Dizziness Exertional dyspnea Hypoxia Chief Complaint LEFT KNEE 1 M FU E ORDER L KNEE ARTHROSCOPY PARTIAL MEDIAL MENISCECTOMY L KNEE ARTHROSCOPY PARTIAL MEDIAL MENISCECTOMY HYPOGYLEMIA Amb Documentation 6 MO F/U (PFM PT) 2 M FU EORDER HF EXACERBATION, HYPOXIA, DIZZINESS HF EXACERBATION, HYPOXIA, DIZZINESS HF EXACERBATION, HYPOXIA, DIZZINESS HF EXACERBATION, HYPOXIA, DIZZINESS HF EXACERBATION, HYPOXIA, DIZZINESS HF EXACERBATION, HYPOXIA, DIZZINESS HF EXACERBATION, HYPOXIA, DIZZINESS HF EXACERBATION, HYPOXIA, DIZZINESS Reason for Visit Acute medial meniscu s tear of left knee Left knee DJD Hypokalemia Diabetes Overweight on examination History of coronary artery bypass graft x 3 Presence of stent in coronary artery CAD (coronary artery disease) Diabetes Dyslipidemia Essential hypertension PAF (paroxysmal atrial fibrillation) Chronic renal failure, stage 3 (moderate) Diabetes mellitus, type 2 Essential hypertension Acute hyperglycemia Chronic anticoagulation Dizziness Exertional dyspnea Hypoxia Pulmonary HTN Vertigo Chief Complaint LEFT KNEE 1 M FU E ORDER L KNEE ARTHROSCOPY PARTIAL MEDIAL MENISCECTOMY L KNEE ARTHROSCOPY PARTIAL MEDIAL MENISCECTOMY HYPOGYLEMIA Amb Documentation 6 MO F/U (PFM PT) 2 M FU EORDER HF EXACERBATION, HYPOXIA, DIZZINESS HF EXACERBATION, HYPOXIA, DIZZINESS HF EXACERBATION, HYPOXIA, DIZZINESS HF EXACERBATION, HYPOXIA, DIZZINESS HF EXACERBATION, HYPOXIA, DIZZINESS HF EXACERBATION, HYPOXIA, DIZZINESS HF EXACERBATION, HYPOXIA, DIZZINESS HF EXACERBATION, HYPOXIA, DIZZINESS [facility] WORK [facility]WORK LABWORK Reason for Visit Acute medial meniscu s tear of left knee Left knee DJD Hypokalemia Diabetes Overweight on examination History of coronary artery bypass graft x 3 Presence of stent in coronary artery CAD (coronary artery disease) Diabetes Dyslipidemia Essential hypertension PAF (paroxysmal atrial fibrillation) Chronic renal failure, stage 3 (moderate) Diabetes mellitus, type 2 Essential hypertension Acute hyperglycemia Dizziness Exertional dyspnea Hypoxia Chief Complaint L KNEE ARTHROSCOPY P ARTIAL MEDIAL MENISCECTOMY L KNEE ARTHROSCOPY PARTIAL MEDIAL MENISCECTOMY HYPOGYLEMIA Amb Documentation 6 MO F/U (PFM PT) 2 M FU EORDER HF EXACERBATION, HYPOXIA, DIZZINESS HF EXACERBATION, HYPOXIA, DIZZINESS HF EXACERBATION, HYPOXIA, DIZZINESS HF EXACERBATION, HYPOXIA, DIZZINESS HF EXACERBATION, HYPOXIA, DIZZINESS HF EXACERBATION, HYPOXIA, DIZZINESS HF EXACERBATION, HYPOXIA, DIZZINESS HF EXACERBATION, HYPOXIA, DIZZINESS [facility] WORK [facility] LABWORK LABWORK S/P [facility] 07-22-22 TOE BLEEDING 10 wk fu FALL Reason for Visit History of coronary artery bypass graft x 3 Presence of stent in coronary artery CAD (coronary artery disease) Diabetes Dyslipidemia Essential hypertension PAF (paroxysmal atrial fibrillation) Chronic renal failure, stage 3 (moderate) Diabetes mellitus, type 2 Essential hypertension Acute hyperglycemia Dizziness Exertional dyspnea Hypoxia CAD (coronary artery disease) Dyslipidemia Essential hypertension PAF (paroxysmal atrial fibrillation) (HFpEF) heart failure with preserved ejection fraction Chronic renal failure, stage 3 (moderate) Diabetes mellitus, type 2 Microalbuminuria Chief Complaint 6 MO F/U (PFM PT) 2 M FU EORDER HF EXACERBATION, HYPOXIA, DIZZINESS HF EXACERBATION, HYPOXIA, DIZZINESS HF EXACERBATION, HYPOXIA, DIZZINESS HF EXACERBATION, HYPOXIA, DIZZINESS HF EXACERBATION, HYPOXIA, DIZZINESS CP HF EXACERBATION, HYPOXIA, DIZZINESS HF EXACERBATION, HYPOXIA, DIZZINESS HF EXACERBATION, HYPOXIA, DIZZINESS [facility] WORK [facility]WORK LABWORK LABWORK S/P [facility] 07-22-22 TOE BLEEDING 10 wk fu FALL Dyspnea, unspecified Reason for Visit History of coronary artery bypass graft x 3 Presence of stent in coronary artery CAD (coronary artery disease) Diabetes Dyslipidemia Essential hypertension PAF (paroxysmal atrial fibrillation) Chronic renal failure, stage 3 (moderate) Diabetes mellitus, type 2 Essential hypertension Acute hyperglycemia Dizziness Exertional dyspnea Hypoxia CAD (coronary artery disease) Dyslipidemia Essential hypertension PAF (paroxysmal atrial fibrillation) (HFpEF) heart failure with preserved ejection fraction Chronic renal failure, stage 3 (moderate) Diabetes mellitus, type 2 Microalbuminuria Chief Complaint HF EXACERBATION, HYP OXIA, DIZZINESS HF EXACERBATION, HYPOXIA, DIZZINESS HF EXACERBATION, HYPOXIA, DIZZINESS [facility] WORK LABWORK LABWORK LABWORK S/P [facility] 07-22-22 TOE BLEEDING 10 wk fu FALL Dyspnea, unspecified 9 M FU Unspecified fall, initial encounter CHEST PAIN CHEST PAIN CHEST PAIN Reason for Visit Acute hyperglycemia Dizziness Exertional dyspnea Hypoxia CAD (coronary artery disease) Dyslipidemia Essential hypertension PAF (paroxysmal atrial fibrillation) (HFpEF) heart failure with preserved ejection fraction Chronic renal failure, stage 3 (moderate) Diabetes mellitus, type 2 Microalbuminuria History of fall CAD (coronary artery disease) Dyslipidemia Essential hypertension PAF (paroxysmal atrial fibrillation) Chest pain History of coronary artery disease Hypertension Chief Complaint S/P [facility] 07-22-22 TOE BLEEDING 10 wk fu FALL Dyspnea, unspecified 9 M FU Unspecified fall, initial encounter CHEST PAIN CHEST PAIN CHEST PAIN GENERAL ILLNESS 3 M FU FALL Reason for Visit CAD (coronary artery disease) Dyslipidemia Essential hypertension PAF (paroxysmal atrial fibrillation) (HFpEF) heart failure with preserved ejection fraction Chronic renal failure, stage 3 (moderate) Diabetes mellitus, type 2 Microalbuminuria History of fall CAD (coronary artery disease) Dyslipidemia Essential hypertension PAF (paroxysmal atrial fibrillation) CKD (chronic kidney disease) stage 4, GFR 15-29 ml/min Diabetes mellitus, type 2 Essential hypertension Microalbuminuria Chief Complaint S/P [facility] 07-22-22 TOE BLEEDING 10 wk fu FALL Dyspnea, unspecified 9 M FU Unspecified fall, initial encounter CHEST PAIN CHEST PAIN CHEST PAIN GENERAL ILLNESS 3 M FU FALL SHA, DEHYDRATION, DEBILITY Reason for Visit CAD (coronary artery disease) Dyslipidemia Essential hypertension PAF (paroxysmal atrial fibrillation) (HFpEF) heart failure with preserved ejection fraction Chronic renal failure, stage 3 (moderate) Diabetes mellitus, type 2 Microalbuminuria History of fall CAD (coronary artery disease) Dyslipidemia Essential hypertension PAF (paroxysmal atrial fibrillation) CKD (chronic kidney disease) stage 4, GFR 15-29 ml/min Diabetes mellitus, type 2 Essential hypertension Microalbuminuria Debility Fall Hypercoagulable state due to atrial fibrillation CKD (chronic kidney disease) stage 4, GFR 15-29 ml/min Chief Complaint S/P [facility] 612 TOE BLEEDING 10 wk fu FALL Dyspnea, unspecified 9 M FU Unspecified fall, initial encounter CHEST PAIN CHEST PAIN CHEST PAIN GENERAL ILLNESS 3 M FU FALL SHA, DEHYDRATION, DEBILITY SHA, DEHYDRATION, DEBILITY SHA, DEHYDRATION, DEBILITY Reason for Visit CAD (coronary artery disease) Dyslipidemia Essential hypertension PAF (paroxysmal atrial fibrillation) (HFpEF) heart failure with preserved ejection fraction Chronic renal failure, stage 3 (moderate) Diabetes mellitus, type 2 Microalbuminuria History of fall CAD (coronary artery disease) Dyslipidemia Essential hypertension PAF (paroxysmal atrial fibrillation) CKD (chronic kidney disease) stage 4, GFR 15-29 ml/min Diabetes mellitus, type 2 Essential hypertension Microalbuminuria SHA (acute kidney injury) Debility Dehydration Fall Headache Hypercoagulable state due to atrial fibrillation Hyperglycemia due to diabetes mellitus Subtherapeutic international normalized ratio (INR) CKD (chronic kidney disease) stage 4, GFR 15-29 ml/min Chief Complaint Dyspnea, unspecified 9 M FU Unspecified fall, initial encounter CHEST PAIN CHEST PAIN CHEST PAIN GENERAL ILLNESS 3 M FU FALL SHA, DEHYDRATION, DEBILITY SHA, DEHYDRATION, DEBILITY SHA, DEHYDRATION, DEBILITY LAB WORK LABWORK [facility] Reason for Visit History of fall CAD (coronary artery disease) Dyslipidemia Essential hypertension PAF (paroxysmal atrial fibrillation) Chronic renal failure, stage 3 (moderate) CKD (chronic kidney disease) stage 4, GFR 15-29 ml/min Diabetes mellitus, type 2 Essential hypertension Microalbuminuria Debility Dehydration Fall Headache Hypercoagulable state due to atrial fibrillation Hyperglycemia due to diabetes mellitus Subtherapeutic international normalized ratio (INR) CKD (chronic kidney disease) stage 4, GFR 15-29 ml/min SHA (acute kidney injury) Chief Complaint 9 M FU Unspecified fall, initial encounter CHEST PAIN CHEST PAIN CHEST PAIN GENERAL ILLNESS 3 M FU FALL SHA, DEHYDRATION, DEBILITY SHA, DEHYDRATION, DEBILITY SHA, DEHYDRATION, DEBILITY LAB WORK LABWORK [facility] Reason for Visit History of fall CAD (coronary artery disease) Dyslipidemia Essential hypertension PAF (paroxysmal atrial fibrillation) Chronic renal failure, stage 3 (moderate) CKD (chronic kidney disease) stage 4, GFR 15-29 ml/min Diabetes mellitus, type 2 Essential hypertension Microalbuminuria Debility Dehydration Fall Headache Hypercoagulable state due to atrial fibrillation Hyperglycemia due to diabetes mellitus Subtherapeutic international normalized ratio (INR) CKD (chronic kidney disease) stage 4, GFR 15-29 ml/min HSA (acute kidney injury) Chief Complaint 9 M FU Unspecified fall, initial encounter CHEST PAIN CHEST PAIN CHEST PAIN GENERAL ILLNESS 3 M FU FALL SHA, DEHYDRATION, DEBILITY SHA, DEHYDRATION, DEBILITY SHA, DEHYDRATION, DEBILITY LAB WORK LABWORK [facility] 3 M FU Reason for Visit History of fall CAD (coronary artery disease) Dyslipidemia Essential hypertension PAF (paroxysmal atrial fibrillation) Chronic renal failure, stage 3 (moderate) CKD (chronic kidney disease) stage 4, GFR 15-29 ml/min Diabetes mellitus, type 2 Essential hypertension Microalbuminuria Debility Dehydration Fall Headache Hypercoagulable state due to atrial fibrillation Hyperglycemia due to diabetes mellitus Subtherapeutic international normalized ratio (INR) CKD (chronic kidney disease) stage 4, GFR 15-29 ml/min SHA (acute kidney injury) CAD (coronary artery disease) Dyslipidemia Essential hypertension PAF (paroxysmal atrial fibrillation) Chief Complaint 9 M FU Unspecified fall, initial encounter CHEST PAIN CHEST PAIN CHEST PAIN GENERAL ILLNESS 3 M FU FALL SHA, DEHYDRATION, DEBILITY SAH, DEHYDRATION, DEBILITY SHA, DEHYDRATION, DEBILITY LAB WORK LABWORK [facility] 3 M FU HYPOTENSION, SHA, UNCONTROLLED T2DM HYPOTENSION, SHA, UNCONTROLLED T2DM HYPOTENSION, SHA, UNCONTROLLED T2DM HYPOTENSION, SHA, UNCONTROLLED T2DM HYPOTENSION, SHA, UNCONTROLLED T2DM MECHANICAL FALL, WEAKNESS MECHANICAL FALL, WEAKNESS MECHANICAL FALL, WEAKNESS MECHANICAL FALL, WEAKNESS Reason for Visit History of fall CAD (coronary artery disease) Dyslipidemia Essential hypertension PAF (paroxysmal atrial fibrillation) Chronic renal failure, stage 3 (moderate) CKD (chronic kidney disease) stage 4, GFR 15-29 ml/min Diabetes mellitus, type 2 Essential hypertension Microalbuminuria Debility Dehydration Fall Headache Hypercoagulable state due to atrial fibrillation Hyperglycemia due to diabetes mellitus Subtherapeutic international normalized ratio (INR) CKD (chronic kidney disease) stage 4, GFR 15-29 ml/min SHA (acute kidney injury) CAD (coronary artery disease) Dyslipidemia Essential hypertension PAF (paroxysmal atrial fibrillation) Diabetes mellitus, type 2 Lumbosacral radiculopathy Hyperkalemia SHA (acute kidney injury) Chronic anticoagulation Falls Frequent falls Head injury Toxic metabolic encephalopathy Vomiting Weakness CAD (coronary artery disease) Diabetes mellitus, type 2 Chief Complaint Admit Date 6-8 WK FU February 13, 2024 1: 41pm 7 M FU March 11, 2024 2 :48pm 4 M FU, RS 02/18April 01, 2024 2:57pm ORTHOSTATIC SYNCOPE May 02, 2024 11: 58am Reason for Visit Admit Date Venous insufficiency (chronic) (peripher al) February 13, 2024 1:41pm Frequent falls March 11, 2024 2 :48pm Dyslipidemia March 11, 2024 2 :48pm Dyspnea March 11, 2024 2 :48pm Essential hypertension March 11 2:48pm PAF (paroxysmal atrial fibrillation) [facility] [place] 2024 2:48pm CAD (coronary artery disease) March 112024 2:48pm CKD (chronic kidney disease) stage 4, GF R 15-29 ml/min April 01, 2024 2:57pm Diabetes April 01, 2024 2:57pm Dyslipidemia April 01, 2024 2:57pm Essential hypertension April 01 2:57pm Hypothyroidism April 01, 2024 2:57pm Overweight April 01, 2024 2:57pm Laceration of head May 02, 2024 11: 58am Orthostatic hypotension May 02, 2024 11:58am Syncope May 02, 2024 11: 58am Diabetes May 02, 2024 11: 58am Chief Complaint Admit Date 6-8 WK February 13, 2024 1: 41pm 7 M FU March 11, 2024 2 :48pm 4 M FU, RS 02/18April 01, 2024 2:57pm ORTHOSTATIC SYNCOPE May 02, 2024 11: 58am ORTHOSTATIC SYNCOPE May 02, 2024 2:5 4pm ORTHOSTATIC SYNCOPE May 03, 2024 7:3 5am Additional Source Comments INFORMATION SOURCE (unrecogn ized section and content) DATE CREATED AUTHOR 09/18/2018 [facility] DATE CREATED AUTHOR AUTHOR'S ORGANKAI ATION 08/28/2024 [facility] Goals (unrecognized section and content) Goals may be documented in a n alternate sectionGoals may be documented in an alternate sectionGoals may be documented in an alternate sectionGoals may be documented in an alternate sectionGoals may be documented in an alternate sectionGoals may be documented in an alternate sectionGoals may be documented in an alternate sectionGoals may be documented in an alternate sectionGoals may be documented in an alternate sectionGoals may be documented in an alternate sectionGoals may be documented in an alternate sectionGoals may be documented in an alternate sectionGoals may be documented in an alternate sectionGoals may be documented in an alternate section Care Teams (unrecognized sec tion and content) Team Status: Active Member Role Status Dates Dr. Fernando Kong MD Family Provider Active Dr. Fernando Kong MD Primary Care Provider Active Team Status: Inactive Member Role Status Dates Dr. Fernando Kong MD Primary Care Provider, Referring Provider Active Dr. Galileo Uriostegui MD Attending Provider Active Team Status: Inactive Member Role Status Dates Dr. Fernando Kong MD Primary Care Provider, Referring Provider Active JUVENTINO Manzo Attending Provider Active Team Status: Inactive Member Role Status Dates Dr. Fernando Kong MD Primary Care Provider, Referring Provider Active Dr. Carlos Hernández DO Attending Provider Active Team Status: Inactive Member Role Status Dates Dr. Fernando Kong MD Primary Care Provider Active Dr. Sydnee Andersen DO Attending Provider Active Team Status: Inactive Member Role Status Dates Dr. Fernando Kong MD Primary Care Provider Active JUVENTINO Manzo Attending Provider Active Team Status: Active Member Role Status Dates Dr. Fernando Kong MD Family Provider Active Dr. Jose J Lezama DO Primary Care Provider Active Team Status: Inactive Member Role Status Dates Dr. Fernando Kong MD Referring Provider Active JUVENTINO Manzo Attending Provider Active Dr. Jose J Lezama DO Primary Care Provider Active Team Status: Inactive Member Role Status Dates Dr. Fernando Kong MD Referring Provider Active Dr. Nemesio Best MD Attending Provider Active Dr. Jose J Lezama DO Primary Care Provider Active Team Status: Active Member Role Status Dates Dr. Carlos Hernández DO Attending Provid er, Referring Provider, Other Provider Active Dr. Jose J Lezama DO Primary Care Provider Active Team Status: Active Member Role Status Dates Dr. Jose J Lezama , DO Primary Care Provider Active Emerald Meyers Attending Provider Active Team Status: Inactive Member Role Status Dates Dr. Sydnee Andersen , DO Attending Provider, Referring P rovider Active Dr. Jose J Lezama DO Primary Care Provider Active Team Status: Inactive Member Role Status Dates Dr. Carlos Hernández , DO Attending Provider, Referring Provider Active Dr. Jose J Lezama DO Primary Care Provider Active Team Status: Inactive Member Role Status Dates Dr. Jose J Lezama , DO Primary Care Provider Active Dr. Hortencia Prado , DO Attending Provider, Emergency P rovider Active Team Status: Inactive Member Role Status Dates Dr. Jose J Lezama , DO Primary Care Provider Active Lucretia Akhtar NP-C Attending Provider, Referring Pr ovider Active Team Status: Active Member Role Status Dates Dr. Sydnee Andersen , DO Attending Provider, Referring P rovider Active Dr. Jose J Lezama DO Primary Care Provider Active Team Status: Active Member Role Status Dates Dr. Jose J Lezama DO Primary Care Provider Active Dr. Afua Fernandez , DO Emergency Provider Active Dr. Roshan Horan MD Admit Provider, Attending Provi lorenza Active Team Status: Active Member Role Status Dates Dr. Jose J Lezama DO Primary Care Provider Active Dr. Afua Fernandez , DO Emergency Provider Active Dr. Roshan Horan MD Admit Provider, Other Provider Active Dr. Lisset Cristobal MD Attending Provider, Other Prov ider Active Team Status: Active Member Role Status Dates Dr. Jose J Lezama DO Primary Care Provider Active Dr. Nayan Cee MD Attending Provider Active Team Status: Active Member Role Status Dates Dr. Jose J Lezama DO Primary Care Provider Active Dr. Yuriy Gaona MD Attending Provider Active Team Status: Inactive Member Role Status Dates Dr. Jose J Lezama DO Primary Care Provider Active Dr. Afua Fernandez , DO Emergency Provider Active Dr. Roshan Horan MD Admit Provider, Other Provider Active Dr. Lisset Cristobal MD Attending Provider Active Team Status: Active Member Role Status Dates Dr. Jose J Lezama DO Primary Care Provider Active Galileo COLLADO Attending Provider Active Team Status: Active Member Role Status Dates Dr. Jose J Lezama DO Primary Care Provider Active Patient Link Program Attending Provider Active Team Status: Active Member Role Status Dates Dr. Jose J Lezama , DO Primary Care Provider Active Galileo COLLADO Attending Provider, Referring Provide r Active Team Status: Inactive Member Role Status Dates Dr. Jose J Lezama , DO Primary Care Provider, Referrin g Provider Active Lucretia Akhtar NP-C Attending Provider Active Team Status: Active Member Role Status Dates Dr. Jose J Lezama DO Primary Care Provider Active Dr. Yuriy Gaona MD Attending Provider Active Dr. Lisset Cristobal MD Referring Provider Active Team Status: Inactive Member Role Status Dates Dr. Jose J Lezama DO Primary Care Provider, Referrin g Provider Active Mindy Morrissey [employer] [place], [employer] [place]-C Attending Provider Active Team Status: Inactive Member Role Status Dates Dr. Jose J eLzama DO Primary Care Provider Active Dr. Miguel Diaz MD Attending Provider, Emergency Provider Active Team Status: Inactive Member Role Status Dates Dr. Jose J Lezama DO Primary Care Provider Active Dr. Andres Yarbrough DO Emergency Provider Active Team Status: Inactive Member Role Status Dates Dr. Jose J Lezama DO Primary Care Provider Active Mindy Morrissey [employer] [place], [place]-C Attending Provider, Referring P rovider Active Team Status: Active Member Role Status Dates Dr. Jose J Lezama DO Primary Care Provider Active Dr. Nayan Cee MD Attending Provider Active Dr. Roshan Horan MD Referring Provider Active Team Status: Inactive Member Role Status Dates Dr. Jose J Lezama DO Primary Care Provider Active Dr. Sydnee Andersen , DO Attending Provider, Referring P rovider Active Team Status: Inactive Member Role Status Dates Dr. Jose J Lezama DO Primary Care Provider Active Dr. Andres Yarbrough DO Attending Provider, Emergency Provide r Active Team Status: Inactive Member Role Status Dates Dr. Jose J Lezama DO Primary Care Provider Active Dr. Sydnee Andersen , DO Attending Provider Active Team Status: Active Member Role Status Dates Dr. Jose J Lezama DO Primary Care Provider Active Dr. Afua Fernandez , DO Emergency Provider Active Dr. Bernardino Briceno MD Admit Provi lorenza, Attending Provider, Other Provider Active Team Status: Active Member Role Status Dates Dr. Jose J Lezama DO Primary Care Provider Active Dr. Afua Fernandez , DO Emergency Provider Active Dr. Bernardino Briceno MD Admit Provider, Other Pro vider Active Dr. Rosa Andersen , DO Attending Provider, Other Provide r Active Team Status: Inactive Member Role Status Dates Dr. Jose J Lezama , DO Primary Care Provider Active Dr. Afua Fernandez , DO Emergency Provider Active Dr. Bernardino Briceno MD Admit Provider, Other Pro vider Active Dr. Rosa Andersen , DO Attending Provider Active Team Status: Inactive Member Role Status Dates Dr. Jose J Lezama , DO Primary Care Prov ider, Attending Provider, Referring Provider Active Team Status: Inactive Member Role Status Dates Dr. Jose J Lezama , DO Primary Care Provider Active Dr. Dc Mcpherson MD Emergency Provider Active Team Status: Inactive Member Role Status Dates Dr. Jose J Lezama , DO Primary Care Provider Active Dr. Familia Anderson , DO Emergency Provider Active Team Status: Inactive Member Role Status Dates Dr. Jose J Lezama , DO Primary Care Provider Active Dr. Dc Mcpherson MD Attending Provider, Emergency Pro vider Active Team Status: Active Member Role Status Dates Dr. Jose J Lezama DO Primary Care Provider Active Dr. Hortencia Prado , DO Emergency Provider Active Dr. Carlos Liu MD Admit Provider, Attending Pro vider Active Team Status: Active Member Role Status Dates Dr. Jose J Lezama DO Primary Care Provider Active Dr. Hortencia Prado , DO Emergency Provider Active Dr. Carlos Liu MD Admit Provider, Other Provide r Active Dr. Bernardino Briceno MD Attending Provider, Other Provider Active Team Status: Inactive Member Role Status Dates Dr. Jose J Lezama DO Primary Care Provider Active Dr. Hortencia Prado , DO Emergency Provider Active Dr. Carlos Liu MD Admit Provider, Other Provide r Active Dr. Bernardino Briceno MD Attending Provider Active Team Status: Inactive Member Role Status Dates Dr. Jose J Lezama , DO Primary Care Provider Active [employer] COLLADO Attending Provider Active Team Status: Inactive Member Role Status Dates Dr. Jose J Lezama DO Primary Care Provider Active Dr. Familia Anderson , DO Attending Provider, Emergency P rovider Active Team Status: Active Member Role Status Dates Dr. Dc Mcpehrson MD Emergency Provider Active Dr. Jose J Lezama DO Primary Care Provider Active Dr. Clifford Lane , DO Admit Provider, Other Pro vider Active Dr. Yuriy Browning , DO Attending Provider, Other Provid er Active Team Status: Active Member Role Status Dates Dr. Dc Mcpherson MD Emergency Provider Active Dr. Jose J Lezama DO Primary Care Provider Active Dr. Clifford Lane , DO Admit Provider, Other Pro vider Active Dr. Rosa Andersen , DO Attending Provider, Other Provide r Active Dr. Yuriy Browning DO Other Provider Active Team Status: Active Member Role Status Dates Dr. Jose J Lezama DO Primary Care Provider Active Dr. Familia Anderson DO Emergency Provider Active Dr. Lisset Cristobal MD Admit Provider, Other Provider Active Dr. Clifford Lane , DO Attending Provider, Other Provider Active Team Status: Inactive Member Role Status Dates Dr. Dc Mcpherson MD Emergency Provider Active Dr. Jose J Lezama DO Primary Care Provider Active Dr. Clifford Lane , DO Admit Provider, Other Pro vider Active Dr. Rsoa Andersen , DO Attending Provider Active Dr. Yuriy Browning , DO Other Provider Active Team Status: Inactive Member Role Status Dates Dr. Jose J Lezama DO Primary Care Provider Active Dr. Familia Anderson DO Emergency Provider Active Dr. Lisset Cristobal MD Admit Provider, Other Provider Active Dr. Clifford Lane , DO Attending Provider Active Team Status: Active Member Role Status Dates Dr. Jose J Lezama DO Primary Care Provider Active Team Status: Inactive Member Role Status Dates Dr. Jose J Lezama DO Primary Care Provider Active Start: February 13, 2024 End: February 13, 2024 Dr. Jose J Lezama DO Referring Provider Active Start: February 13, 2024 End: February 13, 2024 JUAN FRANCISCO [place] Attending Provider Active Star t: February 13, 2024 End: February 13, 2024 Team Status: Inactive Member Role Status Dates Dr. Jose J Lezama DO Primary Care Provider Active Start: March 11, 2024 End: March 11, 2024 Dr. Jose J Lezama DO Referring Provider Active Start: March 11, 2024 End: March 11, 2024 Bam Phillips [employer] [place], [employer] [place] Attending Provider Active S tart: March 11, 2024 End: March 11, 2024 Team Status: Inactive Member Role Status Dates Dr. Jose J Lezama DO Primary Care Provider Active Start: April 01, 2024 End: April 01, 2024 Dr. Jose J Lezama DO Referring Provider Active Start: April 01, 2024 End: April 01, 2024 JUVENTINO Manzo Attending Provider Active Start: April 01, 2024 End: April 01, 2024 Team Status: Active Member Role Status Dates Dr. Jose J Lezama DO Primary Care Provider Active Start: May 02, 2024 Dr. Ziggy Moreau DO Emergency Provider Active Start: May 02, 2024 Dr. Bernardino Briceno MD Admit Provider Active Start: May 02, 2024 Dr. Bernardino Briceno MD Attending Provider Active Start: May 02, 2024 Team Status: Inactive Member Role Status Dates Dr. Jose J Lezama DO Primary Care Provider Active Start: May 02, 2024 End: May 03, 2024 Dr. Ziggy Moreau DO Emergency Provider Active Start: May 02, 2024 End: May 03, 2024 Dr. Bernardino Briceno MD Admit Provider Active Start: May 02, 2024 End: May 03, 2024 Dr. Bernardino Briceno MD Attending Provider Active Start: May 02, 2024 End: May 03, 2024 Team Status: Active Member Role Status Dates Dr. Jose J Lezama DO Primary Care Provider Active Start: May 02, 2024 Dr. Ziggy Moreau DO Emergency Provider Active Start: May 02, 2024 Dr. Bernardino Briceno MD Admit Provider Active Start: May 02, 2024 Dr. Bernardino Briceno MD Attending Provider Active Start: May 02, 2024 Dr. Bernardino Briceno MD Other Provider Active Start: May 02, 2024 Team Status: Active Member Role Status Dates Dr. Jose J Lezama DO Primary Care Provider Active Start: May 03, 2024 Dr. Ziggy Moreau DO Emergency Provider Active Start: May 03, 2024 Dr. Bernardino Briceno MD Admit Provider Active Start: May 03, 2024 Dr. Bernardino Briceno MD Attending Provider Active Start: May 03, 2024 Dr. Bernardino Briceno MD Other Provider Active Start: May 03, 2024 FOR RECORDS PERTAINING TO PATIENTS WHO ARE [...] BE BASED ON THE PRIMARY CLINICAL RECORDS. [facility] [facility]. provides no warranty or guarantee of the accuracy or completeness of information in this document.
[2024-09-12] MEDS: fentaNYL 100 MCG/2 ML Ampul 50 MCG IV (00:51)
--- NOTE | 2024-09-12 01:01 | CT_ITS ---
PROCEDURE: CTA CHEST W/WO CONTRAST 09/12/2024 REASON FOR EXAM: CHEST PAIN, ELEVATED DIMER TECHNIQUE: CTA CHEST W/WO CONTRAST Multiplanar Sagittal and Coronal images were obtained. Isovue 370 CONTRAST: 100 VOLUME: mL One or more dose reduction techniques were used (e.g., Automated exposure control, adjustment of the mA and/or kV according to patient size, use of iterative reconstruction technique). RADIATION DOSE SUMMARY: CTDlvol: 25 mGy DLP: 544 mGycm COMPARISON: Chest x-ray 05/02/2024 Scratch stat FINDINGS: Unremarkable base of neck and axilla. Normal heart size. Possible LVH. Status post CABG. No aortic dissection. No pulmonary embolism. Normal esophagus. Small hiatal hernia. Thoracic spine scoliosis and degeneration. T4 compression deformity with no evidence of acuity. Stimulator wires enter lower thoracic canal. Status post median sternotomy with incomplete healing. Central airways are patent. Bronchial wall thickening. Under aerated lungs. No consolidation, effusion, or pneumothorax. CT/CTA Chest W/WO Contrast IMPRESSION: No embolism, dissection, or pneumonia. Reading Location: [place] [id number]
[2024-09-12] MEDS: 0.9% Normal Saline (1000mL) 1,000 ML 999 ML IV (01:30)
[2024-09-12 01:54] LABS: Troponin T High Sens 2 HR 30 ng/L (<=14)
[2024-09-12 04:19] LABS: Troponin T High Sens 4 HR 30 ng/L (<=14)
--- NOTE | 2024-09-12 04:51 | ED.RN ---
report called to [facility].
== END 2024-09-12 04:51 | disposition home or self-care (01) ==
PROVIDERS: Emergency Provider Emergency Medicine; PCP Family Medicine; Visit Provider Emergency Medicine
DX: R07.9 Chest pain, unspecified (principal); N18.4 Chronic kidney disease, stage 4 (severe); Z79.4 Long term (current) use of insulin; E11.22 Type 2 diabetes mellitus with diabetic chronic kidney disease; Z83.3 Family history of diabetes mellitus; E78.00 Pure hypercholesterolemia, unspecified; Z90.710 Acquired absence of both cervix and uterus; Z79.82 Long term (current) use of aspirin; I44.0 Atrioventricular block, first degree; I25.10 Atherosclerotic heart disease of native coronary artery without angina pectoris; I12.9 Hypertensive chronic kidney disease with stage 1 through stage 4 chronic kidney disease, or unspecified chronic kidney disease; Z99.89 Dependence on other enabling machines and devices; Z95.5 Presence of coronary angioplasty implant and graft; Z95.1 Presence of aortocoronary bypass graft; Z86.73 Personal history of transient ischemic attack (TIA), and cerebral infarction without residual deficits; E03.9 Hypothyroidism, unspecified; G47.33 Obstructive sleep apnea (adult) (pediatric); Z90.49 Acquired absence of other specified parts of digestive tract
CPT/HCPCS: 36415; 71275; 80048; 84484; 85025; 85379; 93005; 96361; 96374; 96376; 99285; Q9967; A4216

== ENCOUNTER 2025-01-24 13:15 | Day surgery (SDC) | payer MEDICARE, MEDICAID, SELFPAY ==
[2023-06-17 15:45] VITALS: BMI 28.7
--- NOTE | 2025-01-21 15:20 | PAT.ANE_ITS ---
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 When Was Last Pacemaker Check QUESTION #4 FULL TEXT: You/Your Family Experience fever (hyperthermia) with Anesthesia Last Oral Intake Last Oral intake: Last Oral Intake NPO since Meds taken in AM with sips of water? Meds patient instructed to take am of surgery PONV PONV - child adolescent psychiatrist: PONV - child adolescent psychiatrist Female Yes 01/21/25 12:13 HX of Motion Sickness No 01/21/25 12:13 HX of N/V After Surgery No 01/21/25 12:13 Non-Smoker Yes 01/21/25 12:13 Duration of Surgery greater Yes 01/21/25 12:13 than 60 minutes Number of Risk Factors 3 01/21/25 12:13 PONV Score Moderate Risk 01/21/25 12:13 Height & Weight Height & Weight: Anesthesia: Height & Weight Height 5 ft 3 in 09/11/24 23:43 Respiratory Assessment Respiratory Assessment - child adolescent psychiatrist: Respiratory Tract Infection Hx - child adolescent psychiatrist Hx Respiratory Tract Infection No 01/21/25 12:13 STOP Sleep Apnea STOP Sleep Apnea - child adolescent psychiatrist: STOP Sleep Apnea - child adolescent psychiatrist Hx Hypertension Yes 01/21/25 12:13 Hx Sleep Apnea No 01/21/25 12:13 CPAP No 01/21/25 12:13 BIPAP Yes 01/21/25 12:13 Do you snore loudly (louder No 01/21/25 12:13 than talking or can be heard Do you often feel tired/ No 01/21/25 12:13 fatigued/ sleepy during daytime? Has anyone observed you stop No 01/21/25 12:13 breathing during sleep? STOP Results Negative 01/21/25 12:13 QUESTION #5 FULL TEXT : Do you snore loudly (louder than talking or can be heard through closed doors)? 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 Specify any problems Hx of Preganancy in last 3 No 01/21/25 12:13 Months Nurse Filling Out Transfusion DSCHRIBER 01/21/25 12:13 & Questions: Date: 01/21/25 01/21/25 12:13 Time: 12:15 01/21/25 12:13 Patient unable to answer at this time (ie. confused, unrespo /Reproduction History /Reproductive History - child adolescent psychiatrist: /Reproductive Hx- child adolescent psychiatrist Hx Now No 01/21/25 12:13 Gestational Age (in weeks): EDC: Hx Hx Para Hx Section SAB No 01/21/25 12:13 Does the father of the baby or his family experience fever w Father of the baby Malignant Hypertension history comment [facility] Medical History (Updated 01/21/25 @ 12:35 by Amanda Varghese) Wears glasses Wears dentures Bruising Abrasion Walker as ambulation aid Sleep apnea History of edema Lives in halfway Dementia in other diseases classified elsewhere, unspecified severity, with mood disturbance Non-smoker Congestive heart failure (CHF) Atrial fibrillation Wears hearing aid Post-menopausal Thyroid disease Insulin dependent diabetes mellitus Ambulates with cane Arthritis History of renal disease High cholesterol Easy bruising Back pain Migraine headache Difficulty swallowing Dietary restriction Shortness of breath on exertion History of echocardiogram History of stress test Hypertension Cardiology follow-up encounter Intertrigo Non-smoker Stroke/cerebrovascular accident Fibromyalgia Presence of stent in coronary artery (~12/11/18) Fatigue CAD (coronary artery disease) Renal cancer Home Medications ?Medication ?Instructions ?Recorded ?Last Taken ?Type cholecalciferol (vitamin D3) 25 25 mcg PO DAILY vitami n 06/20/21 05/01/24 History mcg (1,000 unit) capsule (Vitamin D3) atorvastatin 40 mg tablet 40 mg PO QHS cholesterol #90 tabs 08/20/22 05/01/24 Rx nitroglycerin 0.4 mg sublingual 0.4 mg sublingual Q5M PRN chest 08/20/22 Unknown Rx tablet pain #25 tabs flash glucose scanning reader #1 ea 11/08/22 Unknown R x ([employer] [place]) ranolazine 500 mg tablet,extended 500 mg PO Q12H 12/0505/01/24 History release,12 hr aspirin 81 mg tablet,delayed 81 mg PO DAILY 02/03/23 0 02/19/23 History release (Adult Aspirin Regimen) gabapentin 300 mg capsule 300 mg PO TID NEUROPATHY #90 caps 02/07/23 05/02/24 Rx bisacodyl 10 mg rectal suppository 10 mg CA DAILY PRN constipation 06/12/23 Unknown History insulin lispro 100 unit/mL 18 unit subcut TID 06/12/23 05/01/24 History subcutaneous pen lidocaine 4 % topical patch 1 patch topical DAILY pain 06/12/23 05/01/24 History (Lidocaine Pain Relief) magnesium hydroxide 400 mg/5 mL 30 ml PO DAILY PRN con stipation 06/12/23 Unknown History oral suspension (Milk of Magnesia) meclizine 12.5 mg tablet 12.5 mg PO Q4H PRN dizziness 06/12/23 04/30/24 History menthol 4 % topical gel (Biofreeze 1 applic topical DA BRAIN PRN pain 06/12/23 Unknown History (menthol)) mineral oil (Fleet Mineral Oil 118 ml CA DAILY PRN con stipation 06/12/23 Unknown History enema) loratadine 10 mg tablet 10 mg PO DAILY PRN allergy s [place] 09/15/23 Unknown History memantine 5 mg tablet 10 mg PO BID DEMENTIA 05/01/24 History duloxetine 60 mg capsule,delayed 60 mg PO DAILY 05/01/24 History release albuterol sulfate 2.5 mg/3 mL 2.5 mg inhalation Q6H CA N 02/13/24 Unknown History (0.083 %) solution for nebulization bronchospasm dextran 70-hypromellose 0.1 %-0.3 1 drp ophthalmic (ey e) Q8H PRN dry 02/13/24 Unknown History % eye drops eye(s) isosorbide mononitrate 60 mg 60 mg PO BID HTN 03/11/24 05/01/24 History tablet,extended release 24 hr empagliflozin 25 mg tablet 25 mg PO QAM DIABETES #30 t abs 04/15/24 05/01/24 Rx (Jardiance) acetaminophen 500 mg capsule 1,000 mg PO Q8 PRN pain 0 05/02/24 Unknown History furosemide 20 mg tablet (Lasix) 20 mg PO DAILY edema, SOB 05/02/24 05/01/24 History gabapentin 100 mg capsule 100 mg PO QHS 05/02/2405/01 History guaifenesin 600 mg tablet, 600 mg PO Q12H PRN congesti on 05/02/24 Unknown History extended release 12 hr hydralazine 100 mg tablet 50 mg PO TID HTN 05/02/24 History insulin lispro 100 unit/mL See Protocol subcut .COMPLE X 05/02/24 05/01/24 History subcutaneous solution (Humalog U-100 Insulin) trazodone 50 mg tablet 125 mg PO QHS insomnia 05/02 Unknown History amlodipine 5 mg tablet 5 mg PO DAILY #90 tabs 10/14 Unknown Rx levothyroxine 75 mcg capsule 75 mcg PO DAILY 01/21/25 Unknown History mirabegron 25 mg tablet,extended 25 mg PO DAILY Unknown History release 24 hr multivitamin (Daily Multi-Vitamin 1 tab PO DAILY 01/21 Unknown History tablet) semaglutide 0.25 mg or 0.5 mg (2 0.25 mg subcut MO 02/03 Unknown History mg/3 mL) subcutaneous pen injector (Ozempic) Allergy/AdvReac Type Severity Reaction Status Date / Time morphine Allergy Intermediate Low blood Verified 01/21/25 11:51 pressure tramadol Allergy Unknown PT UNSURE Verified 01/21/25 11:51 OF REACTION latex Allergy Rash Verified 01/21/25 11:51 adhesive tape AdvReac Rash Verified 01/21/25 11:51 ticagrelor (From Brilinta) AdvReac Shortness Verified 01/21/25 11:51 of breath Family History Father Heart disease Mother Breast cancer Diabetes Heart disease Surgical History (Updated 01/21/25 @ 12:35 by Amanda Varghese) History of arthroscopic knee surgery History of cardiac catheterization Hx of hand surgery H/O hemorrhoidectomy History of appendectomy History of cholecystectomy History of right and left heart catheterization (LHC) (~08/10/19) Presence of coronary angioplasty implant and graft (~12/11/18) History of back surgery History of right inguinal hernia repair History of knee replacement procedure of right knee History of hysterectomy Social History household members: spouse housing: house Smoking Status: Never smoker alcohol intake: never substance use type: does not use caffeine: No Audit: Pertinent Findings Pertinent Findings Stress test pertinent findings: 07/17/2021. EF 72%. Potentially compatible with area of stress-induced myocardial ischemia. Echo (EF%) pertinent findings: 07/19/2022. Normal size function EF 65%. Consult pertinent findings: Cardiology 05/20/2024. Coronary artery disease. Without angina. CABG x 3. 04/08/2016. Cardiac catheterization 08/10/2019. Stable. Medical management. Paroxysmal atrial fibrillation. Chronic. Stable. Recommendation Anesthesia Recommendation Anesthesia recommendation: OPTIMIZED for anesthesia
[2025-01-24] VITALS (8 sets, daily range): BP systolic 142–184; BP diastolic 64–88; PULSE 70–83; RESP 16; TEMP 36.4–37; O2SAT 92–95; BMI 28.0
[2025-01-24] MEDS: Lactated Ringers 1,000 ML 15 ML IV (13:42)
--- NOTE | 2025-01-24 14:28 | PRE.ANES_ITS ---
ASA Classification* ASA Classification ASA Classification: 3 Assessment & Plan Anesthesia* Anesthesia Assessment Anesthesia Assessment: Discussed sedation and/or anesthesia options, risks, benefits, and alternatives with patient/parents/legal guardian/POA. Questions invited. The patient/parents/legal guardian/POA seems to understand and agrees to proceed with anesthesia plan. Reviewed the physical assessment, medical history, allergy history and patient home medications list prior to surgery/procedure/anesthetic and documented any changes. Performed airway and anesthesia risk assessments. Anesthesia Type Anesthesia Type: MAC History Source History Obtained from:: Patient and Chart Anesthesia Focused Assessment* Temperature: 98.6 F Pulse Rate: 74 Blood Pressure: 184/64 Respiratory Rate: 16 Pulse Ox: 94 Oxygen Delivery Method: Room Air Airway Assessment Mouth opens: 2 cm Mallampati Score: IV Teeth Condition: Dentures (Full upper dentures are out.) and Missing (Missing multiple teeth in the lower jaw. Rest are tight.) Neck Range of motion (ROM): Limited ROM (Severe Restriction.) Labs Anesthesia Preop lab: CBC WBC, (4.4-11.0) 9.9 K/mm3 09/11/24, 23:35 RBC, (4.2-5.4) 4.37 M/mm3 09/11/24, 23:35 Hgb, (12.0-15.0) 14.1 g/dL 09/11/24, 23:35 Hct, (37-47) 42.5 % 09/11/24, 23:35 Plt Count, (150-450) 179 K/mm3 09/11/24, 23:35 CHEMISTRY Potassium, (3.3-5.1) 3.7 mmol/L 09/11/24, 23:35 Sodium, (133-145) 139 mmol/L 09/11/24, 23:35 Magnesium, (1.6-2.6) 2.1 mg/dL 02/19/23, 05:58 Phosphorus, (2.5-4.9) 3.1 mg/dL 08/25/23, 13:52 BUN, (4-19) 39 mg/dL H 09/11/24, 23:35 Creatinine, (0.70-1.20) 1.79 mg/dL H 09/11/24, 23:35 Glucose, (70-99) 102 mg/dL H 09/11/24, 23:35 POC Glucose, (74-106) 171 mg/dL H 05/03/24, 08:34 TSH, (0.358-3.74) 4.66 uIU/mL H 12/16/22, 05:16 COAG PT, (11.7-14.9) 13.1 SECONDS 05/02/24, 08:25 Pre-Assessment Diagnosis/Proposed Procedure Planned Operative Procedure(s): SPINAL CORD STIMULATOR GENERATOR REPLACEMENT AT THER LEFT GLUTEAL AREA UNDER FLUOR Anesthesia History 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 When Was Last Pacemaker Check QUESTION #4 FULL TEXT: You/Your Family Experience fever (hyperthermia) with Anesthesia Last Oral Intake Last Oral intake: Last Oral Intake NPO since 12:00 01/24/25 13:37 Meds taken in AM with sips of water? 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 Female Yes 01/21/25 12:13 HX of Motion Sickness No 01/21/25 12:13 HX of N/V After Surgery No 01/21/25 12:13 Non-Smoker Yes 01/21/25 12:13 Duration of Surgery greater Yes 01/21/25 12:13 than 60 minutes Number of Risk Factors 3 01/21/25 12:13 PONV Score Moderate Risk 01/21/25 12:13 Height & Weight Height & Weight: Anesthesia: Height & Weight Height 5 ft 3 in 01/24/25 13:37 Weight: 72 kg 01/24/25 13:37 Body Mass Index (BMI) 28.0 01/24/25 13:37 Respiratory Assessment Respiratory Assessment - small business sales representative: Respiratory Tract Infection Hx - small business sales representative Hx Respiratory Tract Infection No 01/21/25 12:13 STOP Sleep Apnea STOP Sleep Apnea - small business sales representative: STOP Sleep Apnea - small business sales representative Hx Hypertension Yes 01/21/25 12:13 Hx Sleep Apnea No 01/21/25 12:13 CPAP No 01/21/25 12:13 BIPAP Yes 01/21/25 12:13 Do you snore loudly (louder No 01/21/25 12:13 than talking or can be heard Do you often feel tired/ No 01/21/25 12:13 fatigued/ sleepy during daytime? Has anyone observed you stop No 01/21/25 12:13 breathing during sleep? STOP Results Negative 01/21/25 12:13 QUESTION #5 FULL TEXT : Do you snore loudly (louder than talking or can be heard through closed doors)? 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 Specify any problems Hx of Preganancy in last 3 No 01/21/25 12:13 Months Nurse Filling Out Transfusion DSCHRIBER 01/21/25 12:13 & Questions: Date: 01/21/25 01/21/25 12:13 Time: 12:15 01/21/25 12:13 Patient unable to answer at this time (ie. confused, unrespo /Reproduction History /Reproductive History - small business sales representative: /Reproductive Hx- small business sales representative Hx Now No 01/21/25 12:13 Gestational Age (in weeks): EDC: Hx Hx Para Hx Section SAB No 01/21/25 12:13 Does the father of the baby or his family experience fever w Father of the baby Malignant Hypertension history comment Active Medications Active Medications: Current Medications Generic Name Dose Route Start Last Admin Trade Name Freq PRN Reason Stop Dose Admin Lactated Ringer's 1,000 mls @ 15 mls/hr 01/24/25 13:30 01/24/25 13:42 IV 15 mls/hr .Q48H JUAN ALBERTO Administration PFSH Medical History Wears glasses Wears dentures Bruising Abrasion Walker as ambulation aid Sleep apnea History of edema Lives in fpc Dementia in other diseases classified elsewhere, unspecified severity, with mood disturbance Non-smoker Congestive heart failure (CHF) Atrial fibrillation Wears hearing aid Post-menopausal Thyroid disease Insulin dependent diabetes mellitus Ambulates with cane Arthritis History of renal disease High cholesterol Easy bruising Back pain Migraine headache Difficulty swallowing Dietary restriction Shortness of breath on exertion History of echocardiogram History of stress test Hypertension Cardiology follow-up encounter Intertrigo Non-smoker Stroke/cerebrovascular accident Fibromyalgia Presence of stent in coronary artery (~12/11/18) Fatigue CAD (coronary artery disease) Renal cancer Home Medications ?Medication ?Instructions ?Recorded ?Last Taken ?Type cholecalciferol (vitamin D3) 25 25 mcg PO DAILY vitami n 06/20/21 05/01/24 History mcg (1,000 unit) capsule (Vitamin D3) atorvastatin 40 mg tablet 40 mg PO QHS cholesterol #90 tabs 08/20/22 05/01/24 Rx nitroglycerin 0.4 mg sublingual 0.4 mg sublingual Q5M PRN chest 08/20/22 Unknown Rx tablet pain #25 tabs flash glucose scanning reader #1 ea 11/08/22 Unknown R x (FreeStyle Jong 2 Electra) ranolazine 500 mg tablet,extended 500 mg PO Q12H 12/0505/01/24 History release,12 hr aspirin 81 mg tablet,delayed 81 mg PO DAILY 02/03/23 0 02/19/23 History release (Adult Aspirin Regimen) gabapentin 300 mg capsule 300 mg PO TID NEUROPATHY #90 caps 02/07/23 05/02/24 Rx bisacodyl 10 mg rectal suppository 10 mg DE DAILY PRN constipation 06/12/23 Unknown History insulin lispro 100 unit/mL 18 unit subcut TID 06/12/23 05/01/24 History subcutaneous pen lidocaine 4 % topical patch 1 patch topical DAILY pain 06/12/23 05/01/24 History (Lidocaine Pain Relief) magnesium hydroxide 400 mg/5 mL 30 ml PO DAILY PRN con stipation 06/12/23 Unknown History oral suspension (Milk of Magnesia) meclizine 12.5 mg tablet 12.5 mg PO Q4H PRN dizziness 06/12/23 04/30/24 History menthol 4 % topical gel (Biofreeze 1 applic topical DA BRAIN PRN pain 06/12/23 Unknown History (menthol)) mineral oil (Fleet Mineral Oil 118 ml DE DAILY PRN con stipation 06/12/23 Unknown History enema) loratadine 10 mg tablet 10 mg PO DAILY PRN allergy s ymptoms 09/15/23 Unknown History memantine 5 mg tablet 10 mg PO BID DEMENTIA 05/01/24 History duloxetine 60 mg capsule,delayed 60 mg PO DAILY 05/01/24 History release albuterol sulfate 2.5 mg/3 mL 2.5 mg inhalation Q6H DE N 02/13/24 Unknown History (0.083 %) solution for nebulization bronchospasm dextran 70-hypromellose 0.1 %-0.3 1 drp ophthalmic (ey e) Q8H PRN dry 02/13/24 Unknown History % eye drops eye(s) isosorbide mononitrate 60 mg 60 mg PO BID HTN 03/11/24 05/01/24 History tablet,extended release 24 hr empagliflozin 25 mg tablet 25 mg PO QAM DIABETES #30 t abs 04/15/24 01/20/25 Rx (Jardiance) acetaminophen 500 mg capsule 1,000 mg PO Q8 PRN pain 0 05/02/24 Unknown History furosemide 20 mg tablet (Lasix) 20 mg PO DAILY edema, SOB 05/02/24 05/01/24 History gabapentin 100 mg capsule 100 mg PO QHS 05/02/2405/01 History guaifenesin 600 mg tablet, 600 mg PO Q12H PRN congesti on 05/02/24 Unknown History extended release 12 hr hydralazine 100 mg tablet 50 mg PO TID HTN 05/02/24 History insulin lispro 100 unit/mL See Protocol subcut .COMPLE X 05/02/24 05/01/24 History subcutaneous solution (Humalog U-100 Insulin) trazodone 50 mg tablet 125 mg PO QHS insomnia 05/02 Unknown History amlodipine 5 mg tablet 5 mg PO DAILY #90 tabs 10/14 Unknown Rx levothyroxine 75 mcg capsule 75 mcg PO DAILY 01/21/25 Unknown History mirabegron 25 mg tablet,extended 25 mg PO DAILY Unknown History release 24 hr multivitamin (Daily Multi-Vitamin 1 tab PO DAILY 01/21 Unknown History tablet) semaglutide 0.25 mg or 0.5 mg (2 0.25 mg subcut MO 02/0301/17/25 History mg/3 mL) subcutaneous pen injector (Ozempic) Allergy/AdvReac Type Severity Reaction Status Date / Time morphine Allergy Intermediate Low blood Verified 01/24/25 13:35 pressure tramadol Allergy Unknown PT UNSURE Verified 01/24/25 13:35 OF REACTION latex Allergy Rash Verified 01/24/25 13:35 adhesive tape AdvReac Rash Verified 01/24/25 13:35 ticagrelor (From Brilinta) AdvReac Shortness Verified 01/24/25 13:35 of breath Family History Father Heart disease Mother Breast cancer Diabetes Heart disease Surgical History History of arthroscopic knee surgery History of cardiac catheterization Hx of hand surgery H/O hemorrhoidectomy History of appendectomy History of cholecystectomy History of right and left heart catheterization (LHC) (~08/10/19) Presence of coronary angioplasty implant and graft (~12/11/18) History of back surgery History of right inguinal hernia repair History of knee replacement procedure of right knee History of hysterectomy Social History household members: spouse housing: house Smoking Status: Never smoker alcohol intake: never substance use type: does not use caffeine: No Review of Systems (Anesthesia) ROS Narrative System reviewed and no additional complaints, except as documented.
[2025-01-24] MEDS: Lidocaine 2% (20 ml mdv) 20 ML Vial (14:47)
--- NOTE | 2025-01-24 15:14 | OP.PCM_ITS ---
Operative Report (Standard) Operative Information Date of Procedure: 01/24/25 Pre-Operative Diagnosis: Postlaminectomy syndrome of the lumbar spine, lumbosacral spinal stenosis with claudication, spinal cord stimulator generator end-of-life Post-Operative Diagnosis: Postlaminectomy syndrome of the lumbar spine, lumbosacral spinal stenosis with claudication, spinal cord stimulator generator end-of-life Surgery/Procedure Performed: Explant of a spinal cord stimulator generator at the left gluteal region, implant of a spinal cord stimulator vanta adaptive stem Medtronic at the left gluteal region negative checker: Yes Gripper Attacher: Sherrie He Tasks completed by assistant golf professional: Opening & closing Additional bindery library technical assistant?: No Type of Anesthesia: Local MAC RN Documented Start/Stop Times: Operation Date: 01/24/25 14:40 Case Time Into Pre-Op 01/24/25 13:22 Anesthesia Start 01/24/25 14:36 Into Room 01/24/25 14:36 Procedure Start 01/24/25 14:47 Procedure Start Time: 15:16 Procedure Stop Time: 15:16 Select all DRAINS/GRAFTS/IMPLANTS that apply: None Estimated Blood Loss: <10 Specimen collected: No
--- NOTE | 2025-01-24 15:14 | PCM.OPRPT ---
Operative Report (Standard) Operative Information Date of Procedure: 01/24/25 Pre-Operative Diagnosis: Postlaminectomy syndrome of the lumbar spine, lumbosacral spinal stenosis with claudication, spinal cord stimulator generator end-of-life Post-Operative Diagnosis: Postlaminectomy syndrome of the lumbar spine, lumbosacral spinal stenosis with claudication, spinal cord stimulator generator end-of-life Surgery/Procedure Performed: Explant of a spinal cord stimulator generator at the left gluteal region, implant of a spinal cord stimulator vanta adaptive stem Medtronic at the left gluteal region car oiler: Yes Technical Sales Support Specialist: Sherrie He Tasks completed by first front ventilator: Opening & closing Additional assistant director of public works?: No Type of Anesthesia: Local MAC RN Documented Start/Stop Times: Operation Date: 01/24/25 14:40 Case Time Into Pre-Op 01/24/25 13:22 Anesthesia Start 01/24/25 14:36 Into Room 01/24/25 14:36 Procedure Start 01/24/25 14:47 Procedure Start Time: 15:16 Procedure Stop Time: 15:16 Select all DRAINS/GRAFTS/IMPLANTS that apply: None Estimated Blood Loss: <10 Specimen collected: No Description of surgery: Implanted device: Medtronic spinal cord stimulator generator Vanta Adaptivestim serial number [id number] PROCEDURE IN DETAIL: History and physical today was reviewed. Risks and benefits of procedure explained. The patient understood, agreed to procedure, informed consent was obtained. IV inserted per routine protocol. The patient was taken to the operating room, placed in the prone position with a pillow positioned underneath the abdomen. A 2 g of Ancef IV piggyback was infused per anesthesia. The lower back and left gluteal area was prepped and draped in a sterile fashion using iodine x3 Ioban was placed. the left gluteal horizontal previous incision was visualized, skin and subcutaneous tissue was incised approximately 20 cc of 0.25% Marcaine and 2% lidocaine 50-50 mix, using a 25-gauge regular needle the incision was then taken down through the skin and subcutaneous tissue towards the fascia making sure hemostasis was then maintained via cautery, the spinal cord stimulator was then taken down with the 11-gauge blade hemostasis was maintained with Bovie and direct pressure the incision was then taken down to the fascia, spinal cord stimulator generator battery was then reach dissected from the fascia and the spinal cord stimulator generator was then removed spinal cord stimulator leads were then disconnected using a screwdriver provided by the Tarisa kit the previous battery was then inspected and removed the previous incision was then irrigated using Betadine as well as saline hemostasis was maintained during the procedure with Bovie the adaptiveSTM vANTA Medtronic spinal cord stimulator generator was then connected with the 028-lead as well as 9-16 impedance was then checked once in satisfactory range the spinal cord stimulator generator was then placed into a Tyrex antibacterial pouch and the battery was then secured with the 2-0 silk sutures that were the spinal cord stimulator leads the upper lead was then marked the new until spinal cord stimulator battery was then provided Via Tarisa kit the battery was then reattached of the spinal cord stimulator make ensure that the top lead is attached to the top position from 0-7 electrodes and the bottom from 8-15 electrodes once impedance was then checked to be in the proper average number the Vanta battery was then inserted into the pocket and impedance with when checked again the pocket was then inspected to confirm hemostasis in place, the Vanta battery was then secured to the fascia using a 2-0 silk to the upper eyes of the battery confirming an upward writing of the intellus facing posterior, once complete confirmation the battery was then placed in the position and the the mid paramedian and the gluteal incision were then closed primarily through a 0 Vicryl in an interrupted manner followed by 3-0 Vicryl in a running fashion followed by a 4-0 Monocryl to the skin, hemostasis was then maintained during the procedure the skin was then covered with a Steri-Strips and bacitracin patient was then returned into the supine position in a stable condition and returned to recovery in a stable condition patient experienced no signs or symptoms of intrathecal or intravascular injection patient experienced no paresthesia the procedure was completed without any apparent difficulty any complication the patient appeared to tolerate well, motor as well as sensory function was unchanged from prior to the procedure ESTIMATED BLOOD LOSS: Minimal less than 10 mL ASSESSMENT AND PLAN: This is an 89-year-old female with Postlaminectomy syndrome of the lumbar spine, lumbosacral spinal stenosis with claudication, spinal cord stimulator generator end-of-life, status post Explant of a spinal cord stimulator generator at the left gluteal region, implant of a spinal cord stimulator vanta adaptive stem Medtronic at the left gluteal region, patient will continue her current medications, a prescription Keflex 500 mg 1 p.o. every 8 hours for 7 days was provided to the patient, postop instructions were given to the patient as well as her daughter verbally as well as in writing, patient will follow-up in approximately 1 week for reevaluation. Surgical Findings: End of stage spinal cord stimulator generator Complications Complications: No Admit VTE Documentation VTE Present on Admission: No VTE Mechan Device Prophylaxis: None VTE Pharm Prophylaxis ordered?: No
--- NOTE | 2025-01-24 15:31 | PCM.POST.ANE ---
Anesthesia: Postop Eval I Current Vital Signs Temperature: 98.2 F Pulse Rate: 70 Blood Pressure: 142/68 Respiratory Rate: 16 Pulse Ox: 95 Assessment Airway patent: Yes Spontaneous unlabored respirations: Yes nausea: No Vomiting: No Anesthesia Complication: No Fluid Hydration Crystalloid volume administer (ml): 400 Total IV fluid infused: 400 Progress Note Anesthesia document: Postop Eval 1 completed: Yes
--- NOTE | 2025-01-24 21:16 | POSTOPAN2_ITS ---
Anesthesia Postop Eval I Sum Postop Eval Completion status Anesthesia document: Postop Eval 1 completed: Yes Anesthesia Postop Eval I Summary Anesthesia Postop Eval I Summary: Anesthesia Postop Eval I: Assessment Summary Airway patent Yes 01/24/25 15:31 TIGHT ROPE [email or web address] Spontaneous unlabored Yes 01/24/25 15:31 TIGHT ROPE [email or web address] respirations Mental status nausea No 01/24/25 15:31 TIGHT ROPE [email or web address] Vomiting No 01/24/25 15:31 TIGHT ROPE [email or web address] Anesthesia Postop Eval I: Fluid Summary Crystalloid volume administer 400 01/24/25 15:31 TIGHT ROPE [email or web address] (ml) Colloids volume administered ( ml) Blood Product volume administered (ml) Total IV fluid infused 400 01/24/25 15:31 TIGHT ROPE [email or web address] Anesthesia Postop Eval I: Summary Notes Anesthesia Complication No 01/24/25 15:31 TIGHT [email or web address] Anesthesia Complication Comment: Post-operative progress note Anesthesia: Postop Eval II Evaluation Mental status: Awake and Calm Pain Level: 2 nausea: No Vomiting: No Complications Anesthesia Complication: No
--- NOTE | 2025-01-24 21:16 | PCM.POSTANE2 ---
Anesthesia Postop Eval I Sum Postop Eval Completion status Anesthesia document: Postop Eval 1 completed: Yes Anesthesia Postop Eval I Summary Anesthesia Postop Eval I Summary: Anesthesia Postop Eval I: Assessment Summary Airway patent Yes 01/24/25 15:31 CITY PLANNING [email or web address] Spontaneous unlabored Yes 01/24/25 15:31 CITY PLANNING [email or web address] respirations Mental status nausea No 01/24/25 15:31 CITY PLANNING [email or web address] Vomiting No 01/24/25 15:31 CITY PLANNING [email or web address] Anesthesia Postop Eval I: Fluid Summary Crystalloid volume administer 400 01/24/25 15:31 CITY PLANNING [email or web address] (ml) Colloids volume administered ( ml) Blood Product volume administered (ml) Total IV fluid infused 400 01/24/25 15:31 CITY PLANNING [email or web address] Anesthesia Postop Eval I: Summary Notes Anesthesia Complication No 01/24/25 15:31 CITY PLANNING [email or web address] Anesthesia Complication Comment: Post-operative progress note Anesthesia: Postop Eval II Evaluation Mental status: Awake and Calm Pain Level: 2 nausea: No Vomiting: No Complications Anesthesia Complication: No
== END 2025-01-24 16:18 | disposition home or self-care (01) ==
LOC: SDC 13:18 → AC 13:19
PROVIDERS: PCP Family Medicine; Referring Provider Anesthesiology Pain Medicine; Visit Provider Anesthesiology Pain Medicine
PROC: (CPT 63688; principal; 2025-01-24 14:25)
DX: Z45.42 Encounter for adjustment and management of neurostimulator (principal); E11.9 Type 2 diabetes mellitus without complications; Z79.4 Long term (current) use of insulin; M48.061 Spinal stenosis, lumbar region without neurogenic claudication; I73.9 Peripheral vascular disease, unspecified; M48.07 Spinal stenosis, lumbosacral region; M96.1 Postlaminectomy syndrome, not elsewhere classified
CPT/HCPCS: 63685; 63663; 00300; 82962